=== PATIENT | female | born 1940 | race Caucasian/White ===

== ENCOUNTER 2017-02-15 19:01 | Inpatient (IN) | payer MEDICARE, OTHER ==
[~2017-02-15] VITALS: Ht 170.2 cm; Wt 53.7 kg
[~2017-02-15 19:01] MED LIST: CALCIUM CIT-VI1 EACH PO; CITALOPRAM HBR10 M1 ORAL; COLACE100 MG ORAL; COMBIVENT RESPIM4 GM IH; KLONOPIN1 MG ORAL; LYRICA225 MG ORAL; NORCO 5-325 TA1 EACH ORAL; NORCO 7.5-3251 EACH ORAL; PERIDEX 0.12% O15 ML ORO; POTASSIUM CHLOR8 ME2 PO; PROBIOTIC1 EAC3 PO; SENOKOT-S8.6 TAB/50 ORAL; SPIRIVA18 MCG INH; TRAMADOL HCL50 MG ORAL; ZOFRAN ODT8 MG ORAL
[2017-02-15] MEDS ORDERED: DOCUSATE SODIU100 MG ORAL (19:11)
[2017-02-15] MEDS ORDERED: KLOR-CON 88 MEQ ORAL (19:11)
[2017-02-15] MEDS ORDERED: EVISTA60 MG ORAL (19:11)
[2017-02-15] MEDS ORDERED: CENTRUM SILVER1 EAC4 PO (19:11)
[2017-02-15] MEDS ORDERED: RAPAFLO8 MG ORAL (19:11)
[2017-02-15] MEDS ORDERED: CARVEDILOL3.125 MG ORAL (19:11)
[2017-02-15] MEDS ORDERED: ASPIRIN EC81 MG ORAL (19:11)
[2017-02-15] MEDS ORDERED: LISINOPRIL20 MG ORAL (19:11)
[2017-02-15] MEDS ORDERED: PRAVASTATIN SOD20 M1 ORAL (19:11)
[2017-02-15] MEDS ORDERED: ZANTAC150 MG ORAL (19:11)
[2017-02-15] MEDS ORDERED: Ipratropium 0.02% Inh Soln 2.5ml UD HHN ONE (19:15)
[2017-02-15] MEDS ORDERED: Albuterol ud Inhalation HHN ONE (19:15)
[2017-02-15 19:38] VITALS: BP 153/95
[2017-02-15 19:41] LABS: BASOPHILS % (AUTO) 0.5 % (0.0-2.0); EOSINOPHILS % (AUTO) 0.3 % (0.0-3.0); HEMATOCRIT 37.2 % (37.0-47.0); LYMPHOCYTES % (AUTO) 28.6 % (20.0-45.0); MEAN CORPUSCULAR VOLUME 104 FL (80-99); MONOCYTES % (AUTO) 10.4 % (1.0-10.0); NEUTROPHILS % (AUTO) 60.3 % (45.0-75.0); PLATELET COUNT 159 K/UL (150-450); RED BLOOD COUNT 3.56 M/UL (4.20-5.40); RED CELL DISTRIBUTION WIDTH 12.3 % (11.6-14.8); WHITE BLOOD COUNT 7.8 K/UL (4.8-10.8)
--- NOTE | 2017-02-15 19:53 | Emergency Room Report ---
History of Present Illness General Chief Complaint: Dyspnea/Respdistress Source: Patient, EMS Present Illness HPI There was brought in by EMS for dyspnea and hypoxia. Apparently she been treated for pneumonia recently. The paramedics or rhonchi without any wheezes. It's unknown whether she is on antibiotics at this time. Oxygen was improved with 100% nonrebreather. She is on home oxygen. She is focused on colonic polyps and refuse to speak about other problems. She was discharged 07/2014 with these diagnoses: 1. Acute chronic obstructive pulmonary disease exacerbation with hypoxemia. 2. Chronic smoker. 3. Chronic abdominal pain. 4. Fibromyalgia 5. Hypertension. 6. Dyslipidemia. 7. Right breast cancer. 8. History of Clostridium difficile colitis. 9. Osteoporosis. 10. Anxiety disorder. 11. Bacteremia with Staphylococcus aureus. 12. Anemia of chronic disease. Allergies: Coded Allergies: TETRACYCLINE (Unverified Allergy, Unknown, 07/24/14) Patient History Limited by: medical condition Past Medical History: see triage record Social History: Reports: smoking - stopped 4 years ago Social History Narrative from home Last Menstrual Period: na Reviewed Nursing Documentation: PMH: Agreed, PSxH: Agreed Nursing Documentation-PMH Hx Cardiac Problems: Yes Hx Hypertension: Yes Hx COPD: Yes Hx Diabetes: Yes Hx Cancer: No Hx Gastrointestinal Problems: No Hx Neurological Problems: No Review of Systems All Other Systems: limited Physical Exam Vital Signs Date Time Temp Pulse Resp B/P (MAP) Pulse Ox O2 Delivery O2 Flow Rate FiO2 02/15/17 19:04 97.9 104 28 106/71 98 Non-Rebreather 15.0 02/15/17 19:27 100 Sp02 EP Interpretation: reviewed, abnormal - interpreted as low for FIO2 by me General Appearance: moderate distress, other - short stature, Chronically Ill Head: normocephalic Eyes: bilateral eye normal inspection, bilateral eye PERRL ENT: moist mucus membranes Neck: supple Respiratory: accessory muscle use, crackles, rales, rhonchi, wheezing, expiration Cardiovascular #1: regular rate, rhythm Cardiovascular #2: 2+ radial (R) Gastrointestinal: normal inspection, non tender, no mass, non-distended, abnormal bowel sounds - decreased, overweight Musculoskeletal: back normal, normal range of motion Neurologic: responsive, motor weakness - diffuse, not localized, other - somnolent Psychiatric: depressed affect Skin: mottled, other - cool Procedures Critical Care Time Critical Care Time Total Critical Care Time: 30 min bedside evaluation and treatment excludes procedures (EKG). Reason for critical care: respiratory distress Possible complications: hypotension, hypertension, PA, shock, arrhythmias, metabolic acidosis, end organ damage, respiratory failure. Interventions: repeat exams, BiPAP, breathing treatments, antibiotics Course: Patient with lethargy and resp distress. Aggressive treatment with transient improvement. Lethargy, needed BiPAP. Improvement. Repeat treatments. Several discussions with RT for optimal sats and care. Improved. Refused BiPAP - reassessment on venti mask. Improved. Consultations: nursing staff, EMS, RT Performed by: Dr. Best Tolerated well condition = serious Medical Decision Making Diagnostic Impression: Primary Impression: Hypoxia Additional Impressions: Right middle lobe pneumonia Qualified Codes: J18.1 - Lobar pneumonia, unspecified organism COPD exacerbation ER Course Patient with moderate respiratory distress with h/o pneumonia with questionable treatment. DDx: COPD, PNA, CHF, AMI, sepsis amongst others. Evaluation with EKG, CXR, labs with . The patient was reexamined. She had decreased mentation saturations of 83-87%. She was more lethargic at that time. BiPAP was begun in the emergency department and the patient received a breathing treatment. Consideration for intubation. On BiPAP the patient started to wake up and oxygen saturations were improved. He says ago oxygen saturation between 90 and 94%. Admit [place] Dr. Cedillo. Not tolerate BiPAP. Switched to 45% venti mask with improved mentation and sats. Patient taking off oxygen mask. O2 sats drop with this. Non-behavioral restraints ordered. Patient more alert. Laboratory Tests Test 02/15/17 19:20 02/15/17 20:11 White Blood Count 7.8 K/UL (4.8-10.8) Red Blood Count 3.56 M/UL (4.20-5.40) L Hemoglobin 11.0 G/DL (12.0-16.0) L Hematocrit 37.2 % (37.0-47.0) Mean Corpuscular Volume 104 FL (80-99) H Mean Corpuscular Hemoglobin 31.0 PG (27.0-31.0) Mean Corpuscular Hemoglobin Concent 29.7 G/DL (32.0-36.0) L Red Cell Distribution Width 12.3 % (11.6-14.8) Platelet Count 159 K/UL (150-450) Mean Platelet Volume 7.3 FL (6.5-10.1) Neutrophils (%) (Auto) 60.3 % (45.0-75.0) Lymphocytes (%) (Auto) 28.6 % (20.0-45.0) Monocytes (%) (Auto) 10.4 % (1.0-10.0) H Eosinophils (%) (Auto) 0.3 % (0.0-3.0) Basophils (%) (Auto) 0.5 % (0.0-2.0) Prothrombin Time 9.4 SEC (9.30-11.50) Prothrombin Time INR 0.9 (0.9-1.1) PTT 33 SEC (23-33) Sodium Level 137 MMOL/L (136-145) Potassium Level 4.3 MMOL/L (3.5-5.1) Chloride Level 103 MMOL/L (98-107) Carbon Dioxide Level 24 MMOL/L (21-32) Anion Gap 14 (5-15) Blood Urea Nitrogen 43 mg/dL (7-18) H Creatinine 1.1 MG/DL (0.55-1.00) H Estimate Glomerular Filtration Rate mL/min (>60) Glucose Level 115 MG/DL (74-106) H Lactic Acid Level 0.70 mmol/L (0.66-2.22) Calcium Level 9.6 MG/DL (8.5-10.1) Total Bilirubin 0.6 MG/DL (0.2-1.0) Aspartate Amino Transferase (AST) 45 U/L (15-37) H Alanine Aminotransferase (ALT) 36 U/L (12-78) Alkaline Phosphatase 73 U/L (46-116) Total Creatine Kinase 633 U/L (26-308) H Troponin I 0.000 ng/mL (0.000-0.056) Pro-B-Type Natriuretic Peptide 1742 (0-125) H Total Protein 7.4 G/DL (6.4-8.2) Albumin 2.9 G/DL (3.4-5.0) L Globulin 4.5 g/dL Albumin/Globulin Ratio 0.6 (1.0-2.7) L Urine Color Yellow Urine Appearance Slightly cloudy Urine pH 5 (4.5-8.0) Urine Specific [place] 1.015 (1.005-1.035) Urine Protein 2+ (NEGATIVE) H Urine Glucose (UA) Negative (NEGATIVE) Urine Ketones 1+ (NEGATIVE) H Urine Occult Blood 4+ (NEGATIVE) H Urine Nitrite Negative (NEGATIVE) Urine Bilirubin Negative (NEGATIVE) Urine Urobilinogen Normal MG/DL (0.0-1.0) Urine Leukocyte Esterase Negative (NEGATIVE) Urine RBC 0-2 /HPF (0 - 2) Urine WBC 0-2 /HPF (0 - 2) Urine Squamous Epithelial Cells Occasional /LPF Urine Amorphous Sediment Many /LPF (NONE) H Urine Bacteria Few /HPF (NONE) EKG Diagnostic Results Rate: tachycardiac Rhythm: NSR ST Segments: no acute changes Rhythm Strip Diag. Results EP Interpretation: yes Rhythm: no PVC's, no ectopy, other - ST Chest X-Ray Diagnostic Results Chest X-Ray Diagnostic Results : Chest X-Ray Ordered: Yes # of Views/Limited/Complete: 1 View Indication: Shortness of Breath EP Interpretation: Yes Interpretation: no pneumothorax, other - Bilateral effusions and right middle lobe infiltrate Last Vital Signs Date Time Temp Pulse Resp B/P (MAP) Pulse Ox O2 Delivery O2 Flow Rate FiO2 02/15/17 23:40 97.9 114 18 126/60 97 Venturi Mask 10.0 45 Status: improved Disposition: ADMITTED INPATIENT Condition: Serious Referrals: NOT CHOSEN IPA/,REFERRING (PCP) Isiah Best M.D. Feb 15, 2017 19:53
[2017-02-15 20:01] LABS: INR 0.9 (0.9-1.1)
[2017-02-15] MEDS ORDERED: Cefepime 2gm ONE (20:14)
[2017-02-15 20:38] LABS: ALANINE AMINOTRANSFERASE 36 U/L (12-78); ALBUMIN 2.9 G/DL (3.4-5.0); ALBUMIN/GLOBULIN RATIO 0.6 (1.0-2.7); ALKALINE PHOSPHATASE 73 U/L (46-116); ANION GAP 14 (5-15); ASPARTATE AMINO TRANSFERASE 45 U/L (15-37); BILIRUBIN,TOTAL 0.6 MG/DL (0.2-1.0); BLOOD UREA NITROGEN 43 mg/dL (7-18); CALCIUM 9.6 MG/DL (8.5-10.1); CARBON DIOXIDE 24 MMOL/L (21-32); CHLORIDE 103 MMOL/L (98-107); CREATINE KINASE 633 U/L (26-308); CREATININE 1.1 MG/DL (0.55-1.00); POTASSIUM 4.3 MMOL/L (3.5-5.1); SODIUM 137 MMOL/L (136-145)
[2017-02-15 20:50] LABS: APPEARANCE,URINE SLIGHTLY CLOUDY; BILIRUBIN, URINE NEGATIVE (NEGATIVE); GLUCOSE, URINE (UA) NEGATIVE (NEGATIVE); KETONES,URINE 1+ (NEGATIVE); LEUKOCYTE ESTERASE ,URINE NEGATIVE (NEGATIVE); NITRITE,URINE NEGATIVE (NEGATIVE); PH,URINE 5 (4.5-8.0); PROTEIN,URINE 2+ (NEGATIVE); UROBILINOGEN,URINE NORMAL MG/DL (0.0-1.0)
[2017-02-15 20:52] LABS: COLOR,URINE YELLOW
[2017-02-15] MEDS ORDERED: Albuterol ud Inhalation HHN STA (20:59)
[2017-02-15 21:09] VITALS: BP 133/53
[2017-02-15] MEDS ORDERED: Cefepime HCl 2 GM in NS 110 ML IV SCH (22:00)
[2017-02-15] MEDS ORDERED: Miralax 17gm pkt ORAL PRN (22:45)
[2017-02-15] MEDS ORDERED: Albuterol/Ipratropium 3ml neb HHN PRN (22:45)
[2017-02-15] MEDS ORDERED: Vancomycin 1 GM in D5W 275 ML IV SCH (23:00)
[2017-02-15 23:13] VITALS: BP 126/60
[2017-02-16] MEDS: Vancomycin 1250mg/D5W 250ml IVPB SCH ×2 (01:15→23:10)
[2017-02-16 04:00] VITALS: BP 144/69
[2017-02-16 05:31] LABS: BASOPHILS % (AUTO) 0.5 % (0.0-2.0); EOSINOPHILS % (AUTO) 0.8 % (0.0-3.0); HEMATOCRIT 33.1 % (37.0-47.0); HEMOGLOBIN 10.4 G/DL (12.0-16.0); LYMPHOCYTES % (AUTO) 21.4 % (20.0-45.0); MEAN CORPUSCULAR VOLUME 103 FL (80-99); MONOCYTES % (AUTO) 10.8 % (1.0-10.0); NEUTROPHILS % (AUTO) 66.6 % (45.0-75.0); PLATELET COUNT 178 K/UL (150-450); RED BLOOD COUNT 3.22 M/UL (4.20-5.40); RED CELL DISTRIBUTION WIDTH 12.4 % (11.6-14.8); WHITE BLOOD COUNT 7.6 K/UL (4.8-10.8)
[2017-02-16 06:01] LABS: ALBUMIN 2.5 G/DL (3.4-5.0); ANION GAP 9 (5-15); BLOOD UREA NITROGEN 33 mg/dL (7-18); CALCIUM 8.9 MG/DL (8.5-10.1); CARBON DIOXIDE 25 MMOL/L (21-32); CHLORIDE 101 MMOL/L (98-107); CREATININE 0.9 MG/DL (0.55-1.00); POTASSIUM 3.7 MMOL/L (3.5-5.1); SODIUM 135 MMOL/L (136-145)
[2017-02-16 08:00] VITALS: BP 153/73
--- NOTE | 2017-02-16 10:23 | Diagnostic Imaging Report ---
Indication: Dyspnea Comparison: 07/31/14 A single view chest radiograph was obtained. Findings: Pneumonia suspected at the right lung base with moderate-sized density. Evaluation is limited as there are overlying soft tissue densities. There may be an infiltrate at the left lung base. Suggest repeating the examination. The bones are osteopenic. Heart is enlarged. There are surgical clips in the right axilla. Interstitial edema may also be present. Impression: Limited evaluation due to significant degree of soft tissue attenuation. Suspect pneumonia at the right lung base. Recommend repeating the study. Possible interstitial edema.
--- NOTE | 2017-02-16 10:28 | Consultation ---
History of Present Illness General Date patient seen: Feb 16, 2017 Time patient seen: 10:22 Chief Complaint: Dyspnea/Respdistress Reason for Consultation: PNA Present Illness HPI 76 y/o F with hx of COPD on home O2, DM2, colon polyps, fibromyalgia, HTN, HLD, R breast cancer, Cdiff colitis, Tobacco abuse (stopped 4 years ago), chronic abd pain, Anxiety, S. aureus bacteremia 07/2014, AOCD is brought to ED by EMS on 02/15 with dyspnea, hypoxia. Upon admission placed on NRB mask, now down to 4l NC Of note, she recently received tx for PNA Afebrile, no leukocytosis. CXR wiht possible RLL pNA. Started on IV Vanco and Cefepime. Denies n/v/d, f/c, dysuria. Has chronic abd pain. Allergies: Coded Allergies: TETRACYCLINE (Unverified Allergy, Unknown, 07/24/14) Medication History Scheduled Aspirin Ec* (Aspirin Ec*), 81 MG ORAL DAILY, (Reported) Calcium Citrate/Vitamin D3 (Calcium Cit-Vit D 315-200 Tab), 2 EACH PO DAILY, ( Reported) Citalopram Hydrobromide* (Citalopram Hbr*), 10 MG ORAL DAILY, (Reported) Clonazepam* (Klonopin*), 1 MG ORAL DAILY, (Reported) Docusate Sodium* (Colace*), 200 MG ORAL DAILY, (Reported) Docusate Sodium* (Docusate Sodium*), Unknown Dose ORAL THREE TIMES A DAY, ( Reported) Ipratropium/Albuterol Sulfate (Combivent Respimat Inhal Rosie), 18 MCG IH Q4HR, (Reported) Lactobacillus Combination No.4 (Probiotic), 1 EACH PO DAILY, (Reported) Lisinopril (Lisinopril*), 20 MG ORAL BID, (Reported) Potassium Chloride (Potassium Chloride), 8 MEQ PO DAILY, (Reported) Potassium Chloride (Klor-Con 8), 8 MEQ ORAL DAILY, (Reported) Pravastatin Sod* (Pravastatin Sod*), 20 MG ORAL BEDTIME, (Reported) Pregabalin (Lyrica), 225 MG ORAL TWICE A DAY, (Reported) Raloxifene Hcl* (Evista*), 60 MG ORAL DAILY, (Reported) Sennosides (Senna-Gen), 2 TAB ORAL DAILY, (Reported) Silodosin (Rapaflo), 8 MG ORAL DAILY, (Reported) Tiotropium [place]* (Spiriva*), 1 PUFF INH DAILY, (Reported) Scheduled PRN Hydrocodone Bit/Acetaminophen 5-325* ([place] 5-325*), 1 TAB ORAL Q6H PRN for For Pain, (Reported) Hydrocodone Bit/Acetaminophen 7.5-325* ([place] 7.5-325*), 1 TAB ORAL Q4H PRN for For Pain, (Reported) Ondansetron Odt* (Zofran Odt*), 8 MG ORAL Q8HR PRN for Nausea & Vomiting, ( Reported) Tramadol Hcl* (Ultram*), 50 MG ORAL Q6H PRN for For Pain, (Reported) Miscellaneous Medications Carvedilol* (Carvedilol*), 3.125 MG ORAL, (Reported) Chlorhexidine Gluconate (Chlorhexidine Gluconate), 15 ML NEISHA, (Reported) Mu-Vits-Min Th/Lycopene/Lutein (Centrum Silver Tablet), 1 EACH PO, (Reported) Ranitidine Hcl* (Zantac*), 300 MG ORAL, (Reported) Patient History Healthcare decision maker Resuscitation status Full Code Advanced Directive on File Patient History Narrative PMHx: as above FHx: non contributory SHx: prior smoking; - stopped 4 years ago Lives at home Review of Systems All Other Systems: negative except mentioned in HPI Physical Exam Physical Exam Narrative General Appearance: resting comfortably in bed, on nasal canula HEENT: PERRL, no oral lesions, atraumatic head Neck: supple Respiratory: scattered wheezing Cardiovascular: regular rate, rhythmm, no murmurs Gastrointestinal: normal inspection, non tender, no mass, non-distended Musculoskeletal: back normal, normal range of motion Neurologic: AAO x3, no focal deficits Skin: no lesions or rashes Last 24 Hour Vital Signs Date Time Temp Pulse Resp B/P (MAP) Pulse Ox O2 Delivery O2 Flow Rate FiO2 02/16/17 04:00 98.3 105 18 144/69 97 Venturi Mask 10.0 45 02/16/17 03:42 100 02/15/17 23:40 97.9 114 18 126/60 97 Venturi Mask 10.0 45 02/15/17 23:13 97.9 114 18 126/60 97 Venturi Mask 10.0 45 02/15/17 21:45 90 18 02/15/17 21:45 90 18 98 Venturi Mask 10.0 45 02/15/17 21:26 80 20 99 Facial 100 02/15/17 21:09 97.9 108 23 133/53 92 Nasal Cannula 5.0 100 02/15/17 19:43 106 18 100 Non-Rebreather 100 02/15/17 19:38 97.9 105 20 153/95 100 Non-Rebreather 15.0 100 02/15/17 19:38 105 20 Non-Rebreather 15.0 100 02/15/17 19:27 81 20 97 Non-Rebreather 15.0 100 02/15/17 19:04 97.9 104 28 106/71 98 Non-Rebreather 15.0 Laboratory Tests Test 02/15/17 19:20 02/15/17 20:11 02/16/17 04:10 White Blood Count 7.8 K/UL (4.8-10.8) 7.6 K/UL (4.8-10.8) Red Blood Count 3.56 M/UL (4.20-5.40) L 3.22 M/UL (4.20-5.40) L Hemoglobin 11.0 G/DL (12.0-16.0) L 10.4 G/DL (12.0-16.0) L Hematocrit 37.2 % (37.0-47.0) 33.1 % (37.0-47.0) L Mean Corpuscular Volume 104 FL (80-99) H 103 FL (80-99) H Mean Corpuscular Hemoglobin 31.0 PG (27.0-31.0) 32.2 PG (27.0-31.0) H Mean Corpuscular Hemoglobin Concent 29.7 G/DL (32.0-36.0) L 31.3 G/DL (32.0-36.0) L Red Cell Distribution Width 12.3 % (11.6-14.8) 12.4 % (11.6-14.8) Platelet Count 159 K/UL (150-450) 178 K/UL (150-450) Mean Platelet Volume 7.3 FL (6.5-10.1) 8.9 FL (6.5-10.1) Neutrophils (%) (Auto) 60.3 % (45.0-75.0) 66.6 % (45.0-75.0) Lymphocytes (%) (Auto) 28.6 % (20.0-45.0) 21.4 % (20.0-45.0) Monocytes (%) (Auto) 10.4 % (1.0-10.0) H 10.8 % (1.0-10.0) H Eosinophils (%) (Auto) 0.3 % (0.0-3.0) 0.8 % (0.0-3.0) Basophils (%) (Auto) 0.5 % (0.0-2.0) 0.5 % (0.0-2.0) Prothrombin Time 9.4 SEC (9.30-11.50) Prothromb Time International Ratio 0.9 (0.9-1.1) Activated Partial Thromboplast Time 33 SEC (23-33) Sodium Level 137 MMOL/L (136-145) 135 MMOL/L (136-145) L Potassium Level 4.3 MMOL/L (3.5-5.1) 3.7 MMOL/L (3.5-5.1) Chloride Level 103 MMOL/L (98-107) 101 MMOL/L (98-107) Carbon Dioxide Level 24 MMOL/L (21-32) 25 MMOL/L (21-32) Anion Gap 14 (5-15) 9 (5-15) Blood Urea Nitrogen 43 mg/dL (7-18) H 33 mg/dL (7-18) H Creatinine 1.1 MG/DL (0.55-1.00) H 0.9 MG/DL (0.55-1.00) Estimat Glomerular Filtration Rate mL/min (>60) mL/min (>60) Glucose Level 115 MG/DL (74-106) H 105 MG/DL (74-106) Lactic Acid Level 0.70 mmol/L (0.66-2.22) Calcium Level 9.6 MG/DL (8.5-10.1) 8.9 MG/DL (8.5-10.1) Total Bilirubin 0.6 MG/DL (0.2-1.0) Aspartate Amino Transf (AST/SGOT) 45 U/L (15-37) H Alanine Aminotransferase (ALT/SGPT) 36 U/L (12-78) Alkaline Phosphatase 73 U/L (46-116) Total Creatine Kinase 633 U/L (26-308) H Troponin I 0.000 ng/mL (0.000-0.056) Pro-B-Type Natriuretic Peptide 1742 (0-125) H Total Protein 7.4 G/DL (6.4-8.2) Albumin 2.9 G/DL (3.4-5.0) L 2.5 G/DL (3.4-5.0) L Globulin 4.5 g/dL Albumin/Globulin Ratio 0.6 (1.0-2.7) L Urine Color Yellow Urine Appearance Slightly cloudy Urine pH 5 (4.5-8.0) Urine Specific [place] 1.015 (1.005-1.035) Urine Protein 2+ (NEGATIVE) H Urine Glucose (UA) Negative (NEGATIVE) Urine Ketones 1+ (NEGATIVE) H Urine Occult Blood 4+ (NEGATIVE) H Urine Nitrite Negative (NEGATIVE) Urine Bilirubin Negative (NEGATIVE) Urine Urobilinogen Normal MG/DL (0.0-1.0) Urine Leukocyte Esterase Negative (NEGATIVE) Urine RBC 0-2 /HPF (0 - 2) Urine WBC 0-2 /HPF (0 - 2) Urine Squamous Epithelial Cells Occasional /LPF Urine Amorphous Sediment Many /LPF (NONE) H Urine Bacteria Few /HPF (NONE) Phosphorus Level 3.0 MG/DL (2.5-4.9) Height (Feet): 5 Height (Inches): 7.00 Weight (Pounds): 123 Medications Current Medications Medications (Trade) Dose Ordered Sig/Wilner Route PRN Reason Start Time Stop Time Status Last Admin Dose Admin Acetaminophen (Tylenol) 650 mg Q4H PRN ORAL FEVER 02/15/17 22:45 03/17/17 22:44 Albuterol/ Ipratropium (DuoNeb 0.5-3(2.5)mg/3ml) 3 ml EVERY 4 HOURS PRN HHN Shortness of Breath 02/15/17 22:45 02/20/17 22:44 Cefepime HCl 2 gm/ Dextrose 110 ml @ 220 mls/hr EVERY 12 HOURS IV 02/16/17 09:00 02/23/17 08:59 Dextrose (Dextrose 50%) STAT PRN IV Hypoglycemia 02/15/17 22:45 03/17/17 22:44 Heparin Sodium (Porcine) (Heparin 5000 units/ml) 5,000 units EVERY 12 HOURS SUBQ 02/16/17 09:00 03/18/17 08:59 Lorazepam (Ativan 2mg/ml 1ml) 2 mg EVERY 2 HOURS PRN IV For Anxiety 02/15/17 22:45 02/22/17 22:44 Morphine Sulfate (Morphine Sulfate) 4 mg EVERY 4 HOURS PRN IVP Severe Pain (Pain Scale 7-10) 02/15/17 22:45 02/22/17 22:44 Ondansetron HCl (Zofran) 4 mg Q6H PRN IVP Nausea & Vomiting 02/15/17 22:45 03/17/17 22:44 Polyethylene Glycol (Miralax) 17 gm DAILYPRN PRN ORAL Constipation 02/15/17 22:45 03/17/17 22:44 Sodium Chloride 1,000 ml @ 50 mls/hr Q20H IV 02/15/17 22:50 03/17/17 22:49 02/16/17 01:15 Vancomycin HCl (Vanco rx to dose) 1 ea DAILY PRN MISC PER RX PROTOCOL 02/16/17 07:45 03/18/17 07:44 Vancomycin HCl/ Dextrose 250 ml @ 166.667 mls/hr Q24H IVPB 02/15/17 23:30 02/20/17 23:29 02/16/17 01:15 Assessment/Plan Assessment/Plan Abx: IV Vanco/Cefepime 02/15- Assesment: Acute hypoxic resp failure, improving- combination of COPD exacerbation and PNA PNA -CXR: Limited evaluation due to significant degree of soft tissue attenuation. Suspect pneumonia at the right lung base. Afebrile, no leukocytosis COPD on home O2 Hx of Cdiff DM2 Chronic abd pain hx of MRSA bacteremia 07/2015 fibromyalgia, HTN, HLD, R breast cancer,Tobacco abuse (stopped 4 years ago), Anxiety, AOCD Plan: -Continue IV Vanco and Cefepime pending sp cx -Will start prophylatic PO Vancomycin given prior hx of Cdiff and current abx treatment -CXR 2 v sue am -F/u cultures -Monitor CBC/BMP, temperatures -Aspiration precautions Thank you for this consultation. Will continue to follow along with you. Discussed with RN and Dr Hernandez.. Alyse Traylor M.D. Feb 16, 2017 10:28
--- NOTE | 2017-02-16 10:55 | History & Physical ---
History and Physical History & Physicial Cover for Int Med-Dr Cedillo no. [id number]. ZEB FUENTES Feb 16, 2017 10:55
--- NOTE | 2017-02-16 10:55 | History & Physical ---
History and Physical History & Physicial Cover for Int Med-Dr Cedillo no. [id number]. ZEB FUENTES Feb 16, 2017 10:55
--- NOTE | 2017-02-16 10:55 | History & Physical ---
History and Physical History & Physicial Cover for Int Med-Dr Cedillo no. [id number]. ZEB FUENTES Feb 16, 2017 10:55
[2017-02-16] MEDS: Cefepime HCl 2 GM in D5W 110 ML IV SCH ×2 (11:07→20:35)
[2017-02-16] MEDS: Albuterol/Ipratropium 3ml neb HHN SCH ×3 (11:08→19:00)
[2017-02-16] MEDS: Heparin 5000 units/ml inj SUBQ SCH ×2 (11:10→20:37)
[2017-02-16] MEDS: Solu-MEDROL 125mg Inj IVP SCH ×2 (11:14→17:32)
--- NOTE | 2017-02-16 11:23 | History and Physical ---
History of Present Illness General Date patient seen: Feb 16, 2017 Reason for Hospitalization: Dyspnea/Respdistress Present Illness HPI 76 year old female with hx of COPD, fibromyalgia, brought in by EMS for dyspnea and hypoxia and cough. She was on respiratory distress at home and was put on nonrebreather. Oxygen was improved with 100% nonrebreather. She is on home oxygen. She is admitted to [facility] for acute respiratory failure. Allergies: Coded Allergies: TETRACYCLINE (Unverified Allergy, Unknown, 07/24/14) Medication History Scheduled Aspirin Ec* (Aspirin Ec*), 81 MG ORAL DAILY, (Reported) Calcium Citrate/Vitamin D3 (Calcium Cit-Vit D 315-200 Tab), 2 EACH PO DAILY, ( Reported) Citalopram Hydrobromide* (Citalopram Hbr*), 10 MG ORAL DAILY, (Reported) Clonazepam* (Klonopin*), 1 MG ORAL DAILY, (Reported) Docusate Sodium* (Colace*), 200 MG ORAL DAILY, (Reported) Docusate Sodium* (Docusate Sodium*), Unknown Dose ORAL THREE TIMES A DAY, ( Reported) Ipratropium/Albuterol Sulfate (Combivent Respimat Inhal [place]), 18 MCG IH Q4HR, (Reported) Lactobacillus Combination No.4 (Probiotic), 1 EACH PO DAILY, (Reported) Lisinopril (Lisinopril*), 20 MG ORAL BID, (Reported) Potassium Chloride (Potassium Chloride), 8 MEQ PO DAILY, (Reported) Potassium Chloride (Klor-Con 8), 8 MEQ ORAL DAILY, (Reported) Pravastatin Sod* (Pravastatin Sod*), 20 MG ORAL BEDTIME, (Reported) Pregabalin (Lyrica), 225 MG ORAL TWICE A DAY, (Reported) Raloxifene Hcl* (Evista*), 60 MG ORAL DAILY, (Reported) Sennosides (Senna-Gen), 2 TAB ORAL DAILY, (Reported) Silodosin (Rapaflo), 8 MG ORAL DAILY, (Reported) Tiotropium [place]* (Spiriva*), 1 PUFF INH DAILY, (Reported) Scheduled PRN Hydrocodone Bit/Acetaminophen 5-325* ([place] 5-325*), 1 TAB ORAL Q6H PRN for For Pain, (Reported) Hydrocodone Bit/Acetaminophen 7.5-325* ([place] 7.5-325*), 1 TAB ORAL Q4H PRN for For Pain, (Reported) Ondansetron Odt* (Zofran Odt*), 8 MG ORAL Q8HR PRN for Nausea & Vomiting, ( Reported) Tramadol Hcl* (Ultram*), 50 MG ORAL Q6H PRN for For Pain, (Reported) Miscellaneous Medications Carvedilol* (Carvedilol*), 3.125 MG ORAL, (Reported) Chlorhexidine Gluconate (Chlorhexidine Gluconate), 15 ML NEISHA, (Reported) Mu-Vits-Min Th/Lycopene/Lutein (Centrum Silver Tablet), 1 EACH PO, (Reported) Ranitidine Hcl* (Zantac*), 300 MG ORAL, (Reported) Patient History Healthcare decision maker Resuscitation status Full Code Advanced Directive on File Past Medical/Surgical History Past Medical/Surgical History: (1) COPD (chronic obstructive pulmonary disease) (2) Fibromyalgia Review of Systems All Other Systems: negative except mentioned in HPI Physical Exam General Appearance: WD/WN Lines, tubes and drains: peripheral HEENT: normocephalic, atraumatic Neck: non-tender, normal alignment Respiratory/Chest: chest wall non-tender, lungs clear Breasts: no masses Cardiovascular/Chest: normal peripheral pulses, normal rate Abdomen: normal bowel sounds, non tender Genitourinary/Rectal: normal genital exam, normal rectal exam Extremities: normal range of motion Skin Exam: normal pigmentation 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: vp 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 grossly normal Last 24 Hour Vital Signs Date Time Temp Pulse Resp B/P (MAP) Pulse Ox O2 Delivery O2 Flow Rate FiO2 02/16/17 08:00 97.8 107 18 153/73 95 Nasal Cannula 4.0 02/16/17 04:00 98.3 105 18 144/69 97 Venturi Mask 10.0 45 02/16/17 03:42 100 02/15/17 23:40 97.9 114 18 126/60 97 Venturi Mask 10.0 45 02/15/17 23:13 97.9 114 18 126/60 97 Venturi Mask 10.0 45 02/15/17 21:45 90 18 02/15/17 21:45 90 18 98 Venturi Mask 10.0 45 02/15/17 21:26 80 20 99 Facial 100 02/15/17 21:09 97.9 108 23 133/53 92 Nasal Cannula 5.0 100 02/15/17 19:43 106 18 100 Non-Rebreather 100 02/15/17 19:38 97.9 105 20 153/95 100 Non-Rebreather 15.0 100 02/15/17 19:38 105 20 Non-Rebreather 15.0 100 02/15/17 19:27 81 20 97 Non-Rebreather 15.0 100 02/15/17 19:04 97.9 104 28 106/71 98 Non-Rebreather 15.0 Laboratory Tests Test 02/15/17 19:20 02/15/17 20:11 02/16/17 04:10 White Blood Count 7.8 K/UL (4.8-10.8) 7.6 K/UL (4.8-10.8) Red Blood Count 3.56 M/UL (4.20-5.40) L 3.22 M/UL (4.20-5.40) L Hemoglobin 11.0 G/DL (12.0-16.0) L 10.4 G/DL (12.0-16.0) L Hematocrit 37.2 % (37.0-47.0) 33.1 % (37.0-47.0) L Mean Corpuscular Volume 104 FL (80-99) H 103 FL (80-99) H Mean Corpuscular Hemoglobin 31.0 PG (27.0-31.0) 32.2 PG (27.0-31.0) H Mean Corpuscular Hemoglobin Concent 29.7 G/DL (32.0-36.0) L 31.3 G/DL (32.0-36.0) L Red Cell Distribution Width 12.3 % (11.6-14.8) 12.4 % (11.6-14.8) Platelet Count 159 K/UL (150-450) 178 K/UL (150-450) Mean Platelet Volume 7.3 FL (6.5-10.1) 8.9 FL (6.5-10.1) Neutrophils (%) (Auto) 60.3 % (45.0-75.0) 66.6 % (45.0-75.0) Lymphocytes (%) (Auto) 28.6 % (20.0-45.0) 21.4 % (20.0-45.0) Monocytes (%) (Auto) 10.4 % (1.0-10.0) H 10.8 % (1.0-10.0) H Eosinophils (%) (Auto) 0.3 % (0.0-3.0) 0.8 % (0.0-3.0) Basophils (%) (Auto) 0.5 % (0.0-2.0) 0.5 % (0.0-2.0) Prothrombin Time 9.4 SEC (9.30-11.50) Prothromb Time International Ratio 0.9 (0.9-1.1) Activated Partial Thromboplast Time 33 SEC (23-33) Sodium Level 137 MMOL/L (136-145) 135 MMOL/L (136-145) L Potassium Level 4.3 MMOL/L (3.5-5.1) 3.7 MMOL/L (3.5-5.1) Chloride Level 103 MMOL/L (98-107) 101 MMOL/L (98-107) Carbon Dioxide Level 24 MMOL/L (21-32) 25 MMOL/L (21-32) Anion Gap 14 (5-15) 9 (5-15) Blood Urea Nitrogen 43 mg/dL (7-18) H 33 mg/dL (7-18) H Creatinine 1.1 MG/DL (0.55-1.00) H 0.9 MG/DL (0.55-1.00) Estimat Glomerular Filtration Rate mL/min (>60) mL/min (>60) Glucose Level 115 MG/DL (74-106) H 105 MG/DL (74-106) Lactic Acid Level 0.70 mmol/L (0.66-2.22) Calcium Level 9.6 MG/DL (8.5-10.1) 8.9 MG/DL (8.5-10.1) Total Bilirubin 0.6 MG/DL (0.2-1.0) Aspartate Amino Transf (AST/SGOT) 45 U/L (15-37) H Alanine Aminotransferase (ALT/SGPT) 36 U/L (12-78) Alkaline Phosphatase 73 U/L (46-116) Total Creatine Kinase 633 U/L (26-308) H Troponin I 0.000 ng/mL (0.000-0.056) Pro-B-Type Natriuretic Peptide 1742 (0-125) H Total Protein 7.4 G/DL (6.4-8.2) Albumin 2.9 G/DL (3.4-5.0) L 2.5 G/DL (3.4-5.0) L Globulin 4.5 g/dL Albumin/Globulin Ratio 0.6 (1.0-2.7) L Urine Color Yellow Urine Appearance Slightly cloudy Urine pH 5 (4.5-8.0) Urine Specific [place] 1.015 (1.005-1.035) Urine Protein 2+ (NEGATIVE) H Urine Glucose (UA) Negative (NEGATIVE) Urine Ketones 1+ (NEGATIVE) H Urine Occult Blood 4+ (NEGATIVE) H Urine Nitrite Negative (NEGATIVE) Urine Bilirubin Negative (NEGATIVE) Urine Urobilinogen Normal MG/DL (0.0-1.0) Urine Leukocyte Esterase Negative (NEGATIVE) Urine RBC 0-2 /HPF (0 - 2) Urine WBC 0-2 /HPF (0 - 2) Urine Squamous Epithelial Cells Occasional /LPF Urine Amorphous Sediment Many /LPF (NONE) H Urine Bacteria Few /HPF (NONE) Phosphorus Level 3.0 MG/DL (2.5-4.9) Height (Feet): 5 Height (Inches): 7.00 Weight (Pounds): 123 Medications Current Medications Medications (Trade) Dose Ordered Sig/Wilner Route PRN Reason Start Time Stop Time Status Last Admin Dose Admin Acetaminophen (Tylenol) 650 mg Q4H PRN ORAL FEVER 02/15/17 22:45 03/17/17 22:44 Albuterol/ Ipratropium (DuoNeb 0.5-3(2.5)mg/3ml) 3 ml Q4HRT HHN 02/16/17 11:00 02/21/17 10:59 02/16/17 11:08 Cefepime HCl 2 gm/ Dextrose 110 ml @ 220 mls/hr EVERY 12 HOURS IV 02/16/17 09:00 02/23/17 08:59 02/16/17 11:07 Dextrose (Dextrose 50%) STAT PRN IV Hypoglycemia 02/15/17 22:45 03/17/17 22:44 Heparin Sodium (Porcine) (Heparin 5000 units/ml) 5,000 units EVERY 12 HOURS SUBQ 02/16/17 09:00 03/18/17 08:59 02/16/17 11:10 Lorazepam (Ativan 2mg/ml 1ml) 2 mg EVERY 2 HOURS PRN IV For Anxiety 02/15/17 22:45 02/22/17 22:44 Methylprednisolone Sodium Succinate (Solu-MEDROL) 60 mg EVERY 6 HOURS IVP 02/16/17 12:00 03/18/17 11:59 02/16/17 11:14 Morphine Sulfate (Morphine Sulfate) 4 mg EVERY 4 HOURS PRN IVP Severe Pain (Pain Scale 7-10) 02/15/17 22:45 02/22/17 22:44 Ondansetron HCl (Zofran) 4 mg Q6H PRN IVP Nausea & Vomiting 02/15/17 22:45 03/17/17 22:44 Polyethylene Glycol (Miralax) 17 gm DAILYPRN PRN ORAL Constipation 02/15/17 22:45 03/17/17 22:44 Promethazine HCl/ Codeine (Phenergan with Codeine) 5 ml Q4H PRN ORAL For Cough 02/16/17 10:45 03/18/17 10:44 Sodium Chloride 1,000 ml @ 50 mls/hr Q20H IV 02/15/17 22:50 03/17/17 22:49 02/16/17 01:15 Vancomycin HCl (Vanco rx to dose) 1 ea DAILY PRN MISC PER RX PROTOCOL 02/16/17 07:45 03/18/17 07:44 Vancomycin HCl/ Dextrose 250 ml @ 166.667 mls/hr Q24H IVPB 02/15/17 23:30 02/20/17 23:29 02/16/17 01:15 Assessment/Plan Problem List: (1) Acute and chronic respiratory failure ([id number]) ICD Codes: J96.20 - Acute and chr resp failure, unsp w hypoxia or hypercapnia SNOMED: 16215727 (2) COPD exacerbation ICD Codes: J44.1 - Chronic obstructive pulmonary disease with (acute) exacerbation SNOMED: 309328042, 356057537 (3) Pneumonia ICD Codes: J18.9 - Pneumonia, unspecified organism SNOMED: 235430129 (4) Fibromyalgia ICD Codes: M79.7 - Fibromyalgia SNOMED: 02965042 (5) History of breast cancer ICD Codes: Z85.3 - Personal history of malignant neoplasm of breast SNOMED: 010850230 (6) Limited mobility ICD Codes: Z74.09 - Other reduced mobility SNOMED: 3114681 Assessment/Plan respiratory treatment check sputum IV abx IV steroids trial of theophylline chest PT dvt prophylaxis TWIN FONTANEZ Feb 16, 2017 11:23
--- NOTE | 2017-02-16 11:23 | History and Physical ---
History of Present Illness General Date patient seen: Feb 16, 2017 Reason for Hospitalization: Dyspnea/Respdistress Present Illness HPI 76 year old female with hx of COPD, fibromyalgia, brought in by EMS for dyspnea and hypoxia and cough. She was on respiratory distress at home and was put on nonrebreather. Oxygen was improved with 100% nonrebreather. She is on home oxygen. She is admitted to [facility] for acute respiratory failure. Allergies: Coded Allergies: TETRACYCLINE (Unverified Allergy, Unknown, 07/24/14) Medication History Scheduled Aspirin Ec* (Aspirin Ec*), 81 MG ORAL DAILY, (Reported) Calcium Citrate/Vitamin D3 (Calcium Cit-Vit D 315-200 Tab), 2 EACH PO DAILY, ( Reported) Citalopram Hydrobromide* (Citalopram Hbr*), 10 MG ORAL DAILY, (Reported) Clonazepam* (Klonopin*), 1 MG ORAL DAILY, (Reported) Docusate Sodium* (Colace*), 200 MG ORAL DAILY, (Reported) Docusate Sodium* (Docusate Sodium*), Unknown Dose ORAL THREE TIMES A DAY, ( Reported) Ipratropium/Albuterol Sulfate (Combivent Respimat Inhal [place]), 18 MCG IH Q4HR, (Reported) Lactobacillus Combination No.4 (Probiotic), 1 EACH PO DAILY, (Reported) Lisinopril (Lisinopril*), 20 MG ORAL BID, (Reported) Potassium Chloride (Potassium Chloride), 8 MEQ PO DAILY, (Reported) Potassium Chloride (Klor-Con 8), 8 MEQ ORAL DAILY, (Reported) Pravastatin Sod* (Pravastatin Sod*), 20 MG ORAL BEDTIME, (Reported) Pregabalin (Lyrica), 225 MG ORAL TWICE A DAY, (Reported) Raloxifene Hcl* (Evista*), 60 MG ORAL DAILY, (Reported) Sennosides (Senna-Gen), 2 TAB ORAL DAILY, (Reported) Silodosin (Rapaflo), 8 MG ORAL DAILY, (Reported) Tiotropium [place]* (Spiriva*), 1 PUFF INH DAILY, (Reported) Scheduled PRN Hydrocodone Bit/Acetaminophen 5-325* ([place] 5-325*), 1 TAB ORAL Q6H PRN for For Pain, (Reported) Hydrocodone Bit/Acetaminophen 7.5-325* ([place] 7.5-325*), 1 TAB ORAL Q4H PRN for For Pain, (Reported) Ondansetron Odt* (Zofran Odt*), 8 MG ORAL Q8HR PRN for Nausea & Vomiting, ( Reported) Tramadol Hcl* (Ultram*), 50 MG ORAL Q6H PRN for For Pain, (Reported) Miscellaneous Medications Carvedilol* (Carvedilol*), 3.125 MG ORAL, (Reported) Chlorhexidine Gluconate (Chlorhexidine Gluconate), 15 ML NEISHA, (Reported) Mu-Vits-Min Th/Lycopene/Lutein (Centrum Silver Tablet), 1 EACH PO, (Reported) Ranitidine Hcl* (Zantac*), 300 MG ORAL, (Reported) Patient History Healthcare decision maker Resuscitation status Full Code Advanced Directive on File Past Medical/Surgical History Past Medical/Surgical History: (1) COPD (chronic obstructive pulmonary disease) (2) Fibromyalgia Review of Systems All Other Systems: negative except mentioned in HPI Physical Exam General Appearance: WD/WN Lines, tubes and drains: peripheral HEENT: normocephalic, atraumatic Neck: non-tender, normal alignment Respiratory/Chest: chest wall non-tender, lungs clear Breasts: no masses Cardiovascular/Chest: normal peripheral pulses, normal rate Abdomen: normal bowel sounds, non tender Genitourinary/Rectal: normal genital exam, normal rectal exam Extremities: normal range of motion Skin Exam: normal pigmentation 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 Last 24 Hour Vital Signs Date Time Temp Pulse Resp B/P (MAP) Pulse Ox O2 Delivery O2 Flow Rate FiO2 02/16/17 08:00 97.8 107 18 153/73 95 Nasal Cannula 4.0 02/16/17 04:00 98.3 105 18 144/69 97 Venturi Mask 10.0 45 02/16/17 03:42 100 02/15/17 23:40 97.9 114 18 126/60 97 Venturi Mask 10.0 45 02/15/17 23:13 97.9 114 18 126/60 97 Venturi Mask 10.0 45 02/15/17 21:45 90 18 02/15/17 21:45 90 18 98 Venturi Mask 10.0 45 02/15/17 21:26 80 20 99 Facial 100 02/15/17 21:09 97.9 108 23 133/53 92 Nasal Cannula 5.0 100 02/15/17 19:43 106 18 100 Non-Rebreather 100 02/15/17 19:38 97.9 105 20 153/95 100 Non-Rebreather 15.0 100 02/15/17 19:38 105 20 Non-Rebreather 15.0 100 02/15/17 19:27 81 20 97 Non-Rebreather 15.0 100 02/15/17 19:04 97.9 104 28 106/71 98 Non-Rebreather 15.0 Laboratory Tests Test 02/15/17 19:20 02/15/17 20:11 02/16/17 04:10 White Blood Count 7.8 K/UL (4.8-10.8) 7.6 K/UL (4.8-10.8) Red Blood Count 3.56 M/UL (4.20-5.40) L 3.22 M/UL (4.20-5.40) L Hemoglobin 11.0 G/DL (12.0-16.0) L 10.4 G/DL (12.0-16.0) L Hematocrit 37.2 % (37.0-47.0) 33.1 % (37.0-47.0) L Mean Corpuscular Volume 104 FL (80-99) H 103 FL (80-99) H Mean Corpuscular Hemoglobin 31.0 PG (27.0-31.0) 32.2 PG (27.0-31.0) H Mean Corpuscular Hemoglobin Concent 29.7 G/DL (32.0-36.0) L 31.3 G/DL (32.0-36.0) L Red Cell Distribution Width 12.3 % (11.6-14.8) 12.4 % (11.6-14.8) Platelet Count 159 K/UL (150-450) 178 K/UL (150-450) Mean Platelet Volume 7.3 FL (6.5-10.1) 8.9 FL (6.5-10.1) Neutrophils (%) (Auto) 60.3 % (45.0-75.0) 66.6 % (45.0-75.0) Lymphocytes (%) (Auto) 28.6 % (20.0-45.0) 21.4 % (20.0-45.0) Monocytes (%) (Auto) 10.4 % (1.0-10.0) H 10.8 % (1.0-10.0) H Eosinophils (%) (Auto) 0.3 % (0.0-3.0) 0.8 % (0.0-3.0) Basophils (%) (Auto) 0.5 % (0.0-2.0) 0.5 % (0.0-2.0) Prothrombin Time 9.4 SEC (9.30-11.50) Prothromb Time International Ratio 0.9 (0.9-1.1) Activated Partial Thromboplast Time 33 SEC (23-33) Sodium Level 137 MMOL/L (136-145) 135 MMOL/L (136-145) L Potassium Level 4.3 MMOL/L (3.5-5.1) 3.7 MMOL/L (3.5-5.1) Chloride Level 103 MMOL/L (98-107) 101 MMOL/L (98-107) Carbon Dioxide Level 24 MMOL/L (21-32) 25 MMOL/L (21-32) Anion Gap 14 (5-15) 9 (5-15) Blood Urea Nitrogen 43 mg/dL (7-18) H 33 mg/dL (7-18) H Creatinine 1.1 MG/DL (0.55-1.00) H 0.9 MG/DL (0.55-1.00) Estimat Glomerular Filtration Rate mL/min (>60) mL/min (>60) Glucose Level 115 MG/DL (74-106) H 105 MG/DL (74-106) Lactic Acid Level 0.70 mmol/L (0.66-2.22) Calcium Level 9.6 MG/DL (8.5-10.1) 8.9 MG/DL (8.5-10.1) Total Bilirubin 0.6 MG/DL (0.2-1.0) Aspartate Amino Transf (AST/SGOT) 45 U/L (15-37) H Alanine Aminotransferase (ALT/SGPT) 36 U/L (12-78) Alkaline Phosphatase 73 U/L (46-116) Total Creatine Kinase 633 U/L (26-308) H Troponin I 0.000 ng/mL (0.000-0.056) Pro-B-Type Natriuretic Peptide 1742 (0-125) H Total Protein 7.4 G/DL (6.4-8.2) Albumin 2.9 G/DL (3.4-5.0) L 2.5 G/DL (3.4-5.0) L Globulin 4.5 g/dL Albumin/Globulin Ratio 0.6 (1.0-2.7) L Urine Color Yellow Urine Appearance Slightly cloudy Urine pH 5 (4.5-8.0) Urine Specific [place] 1.015 (1.005-1.035) Urine Protein 2+ (NEGATIVE) H Urine Glucose (UA) Negative (NEGATIVE) Urine Ketones 1+ (NEGATIVE) H Urine Occult Blood 4+ (NEGATIVE) H Urine Nitrite Negative (NEGATIVE) Urine Bilirubin Negative (NEGATIVE) Urine Urobilinogen Normal MG/DL (0.0-1.0) Urine Leukocyte Esterase Negative (NEGATIVE) Urine RBC 0-2 /HPF (0 - 2) Urine WBC 0-2 /HPF (0 - 2) Urine Squamous Epithelial Cells Occasional /LPF Urine Amorphous Sediment Many /LPF (NONE) H Urine Bacteria Few /HPF (NONE) Phosphorus Level 3.0 MG/DL (2.5-4.9) Height (Feet): 5 Height (Inches): 7.00 Weight (Pounds): 123 Medications Current Medications Medications (Trade) Dose Ordered Sig/Wilner Route PRN Reason Start Time Stop Time Status Last Admin Dose Admin Acetaminophen (Tylenol) 650 mg Q4H PRN ORAL FEVER 02/15/17 22:45 03/17/17 22:44 Albuterol/ Ipratropium (DuoNeb 0.5-3(2.5)mg/3ml) 3 ml Q4HRT HHN 02/16/17 11:00 02/21/17 10:59 02/16/17 11:08 Cefepime HCl 2 gm/ Dextrose 110 ml @ 220 mls/hr EVERY 12 HOURS IV 02/16/17 09:00 02/23/17 08:59 02/16/17 11:07 Dextrose (Dextrose 50%) STAT PRN IV Hypoglycemia 02/15/17 22:45 03/17/17 22:44 Heparin Sodium (Porcine) (Heparin 5000 units/ml) 5,000 units EVERY 12 HOURS SUBQ 02/16/17 09:00 03/18/17 08:59 02/16/17 11:10 Lorazepam (Ativan 2mg/ml 1ml) 2 mg EVERY 2 HOURS PRN IV For Anxiety 02/15/17 22:45 02/22/17 22:44 Methylprednisolone Sodium Succinate (Solu-MEDROL) 60 mg EVERY 6 HOURS IVP 02/16/17 12:00 03/18/17 11:59 02/16/17 11:14 Morphine Sulfate (Morphine Sulfate) 4 mg EVERY 4 HOURS PRN IVP Severe Pain (Pain Scale 7-10) 02/15/17 22:45 02/22/17 22:44 Ondansetron HCl (Zofran) 4 mg Q6H PRN IVP Nausea & Vomiting 02/15/17 22:45 03/17/17 22:44 Polyethylene Glycol (Miralax) 17 gm DAILYPRN PRN ORAL Constipation 02/15/17 22:45 03/17/17 22:44 Promethazine HCl/ Codeine (Phenergan with Codeine) 5 ml Q4H PRN ORAL For Cough 02/16/17 10:45 03/18/17 10:44 Sodium Chloride 1,000 ml @ 50 mls/hr Q20H IV 02/15/17 22:50 03/17/17 22:49 02/16/17 01:15 Vancomycin HCl (Vanco rx to dose) 1 ea DAILY PRN MISC PER RX PROTOCOL 02/16/17 07:45 03/18/17 07:44 Vancomycin HCl/ Dextrose 250 ml @ 166.667 mls/hr Q24H IVPB 02/15/17 23:30 02/20/17 23:29 02/16/17 01:15 Assessment/Plan Problem List: (1) Acute and chronic respiratory failure ([id number]) ICD Codes: J96.20 - Acute and chr resp failure, unsp w hypoxia or hypercapnia SNOMED: 74009880 (2) COPD exacerbation ICD Codes: J44.1 - Chronic obstructive pulmonary disease with (acute) exacerbation SNOMED: 538790950, 406195481 (3) Pneumonia ICD Codes: J18.9 - Pneumonia, unspecified organism SNOMED: 136917787 (4) Fibromyalgia ICD Codes: M79.7 - Fibromyalgia SNOMED: 60656341 (5) History of breast cancer ICD Codes: Z85.3 - Personal history of malignant neoplasm of breast SNOMED: 020309997 (6) Limited mobility ICD Codes: Z74.09 - Other reduced mobility SNOMED: 9325677 Assessment/Plan respiratory treatment check sputum IV abx IV steroids trial of theophylline chest PT dvt prophylaxis TWIN FONTANEZ Feb 16, 2017 11:23
--- NOTE | 2017-02-16 11:23 | History and Physical ---
History of Present Illness General Date patient seen: Feb 16, 2017 Reason for Hospitalization: Dyspnea/Respdistress Present Illness HPI 76 year old female with hx of COPD, fibromyalgia, brought in by EMS for dyspnea and hypoxia and cough. She was on respiratory distress at home and was put on nonrebreather. Oxygen was improved with 100% nonrebreather. She is on home oxygen. She is admitted to [facility] for acute respiratory failure. Allergies: Coded Allergies: TETRACYCLINE (Unverified Allergy, Unknown, 07/24/14) Medication History Scheduled Aspirin Ec* (Aspirin Ec*), 81 MG ORAL DAILY, (Reported) Calcium Citrate/Vitamin D3 (Calcium Cit-Vit D 315-200 Tab), 2 EACH PO DAILY, ( Reported) Citalopram Hydrobromide* (Citalopram Hbr*), 10 MG ORAL DAILY, (Reported) Clonazepam* (Klonopin*), 1 MG ORAL DAILY, (Reported) Docusate Sodium* (Colace*), 200 MG ORAL DAILY, (Reported) Docusate Sodium* (Docusate Sodium*), Unknown Dose ORAL THREE TIMES A DAY, ( Reported) Ipratropium/Albuterol Sulfate (Combivent Respimat Inhal [place]), 18 MCG IH Q4HR, (Reported) Lactobacillus Combination No.4 (Probiotic), 1 EACH PO DAILY, (Reported) Lisinopril (Lisinopril*), 20 MG ORAL BID, (Reported) Potassium Chloride (Potassium Chloride), 8 MEQ PO DAILY, (Reported) Potassium Chloride (Klor-Con 8), 8 MEQ ORAL DAILY, (Reported) Pravastatin Sod* (Pravastatin Sod*), 20 MG ORAL BEDTIME, (Reported) Pregabalin (Lyrica), 225 MG ORAL TWICE A DAY, (Reported) Raloxifene Hcl* (Evista*), 60 MG ORAL DAILY, (Reported) Sennosides (Senna-Gen), 2 TAB ORAL DAILY, (Reported) Silodosin (Rapaflo), 8 MG ORAL DAILY, (Reported) Tiotropium Hugo* (Spiriva*), 1 PUFF INH DAILY, (Reported) Scheduled PRN Hydrocodone Bit/Acetaminophen 5-325* ([place] 5-325*), 1 TAB ORAL Q6H PRN for For Pain, (Reported) Hydrocodone Bit/Acetaminophen 7.5-325* ([place] 7.5-325*), 1 TAB ORAL Q4H PRN for For Pain, (Reported) Ondansetron Odt* (Zofran Odt*), 8 MG ORAL Q8HR PRN for Nausea & Vomiting, ( Reported) Tramadol Hcl* (Ultram*), 50 MG ORAL Q6H PRN for For Pain, (Reported) Miscellaneous Medications Carvedilol* (Carvedilol*), 3.125 MG ORAL, (Reported) Chlorhexidine Gluconate (Chlorhexidine Gluconate), 15 ML NEISHA, (Reported) Mu-Vits-Min Th/Lycopene/Lutein (Centrum Silver Tablet), 1 EACH PO, (Reported) Ranitidine Hcl* (Zantac*), 300 MG ORAL, (Reported) Patient History Healthcare decision maker Resuscitation status Full Code Advanced Directive on File Past Medical/Surgical History Past Medical/Surgical History: (1) COPD (chronic obstructive pulmonary disease) (2) Fibromyalgia Review of Systems All Other Systems: negative except mentioned in HPI Physical Exam General Appearance: WD/WN Lines, tubes and drains: peripheral HEENT: normocephalic, atraumatic Neck: non-tender, normal alignment Respiratory/Chest: chest wall non-tender, lungs clear Breasts: no masses Cardiovascular/Chest: normal peripheral pulses, normal rate Abdomen: normal bowel sounds, non tender Genitourinary/Rectal: normal genital exam, normal rectal exam Extremities: normal range of motion Skin Exam: normal pigmentation Neurologic: patient care provider II-XII grossly normal Last 24 Hour Vital Signs Date Time Temp Pulse Resp B/P (MAP) Pulse Ox O2 Delivery O2 Flow Rate FiO2 02/16/17 08:00 97.8 107 18 153/73 95 Nasal Cannula 4.0 02/16/17 04:00 98.3 105 18 144/69 97 Venturi Mask 10.0 45 02/16/17 03:42 100 02/15/17 23:40 97.9 114 18 126/60 97 Venturi Mask 10.0 45 02/15/17 23:13 97.9 114 18 126/60 97 Venturi Mask 10.0 45 02/15/17 21:45 90 18 02/15/17 21:45 90 18 98 Venturi Mask 10.0 45 02/15/17 21:26 80 20 99 Facial 100 02/15/17 21:09 97.9 108 23 133/53 92 Nasal Cannula 5.0 100 02/15/17 19:43 106 18 100 Non-Rebreather 100 02/15/17 19:38 97.9 105 20 153/95 100 Non-Rebreather 15.0 100 02/15/17 19:38 105 20 Non-Rebreather 15.0 100 02/15/17 19:27 81 20 97 Non-Rebreather 15.0 100 02/15/17 19:04 97.9 104 28 106/71 98 Non-Rebreather 15.0 Laboratory Tests Test 02/15/17 19:20 02/15/17 20:11 02/16/17 04:10 White Blood Count 7.8 K/UL (4.8-10.8) 7.6 K/UL (4.8-10.8) Red Blood Count 3.56 M/UL (4.20-5.40) L 3.22 M/UL (4.20-5.40) L Hemoglobin 11.0 G/DL (12.0-16.0) L 10.4 G/DL (12.0-16.0) L Hematocrit 37.2 % (37.0-47.0) 33.1 % (37.0-47.0) L Mean Corpuscular Volume 104 FL (80-99) H 103 FL (80-99) H Mean Corpuscular Hemoglobin 31.0 PG (27.0-31.0) 32.2 PG (27.0-31.0) H Mean Corpuscular Hemoglobin Concent 29.7 G/DL (32.0-36.0) L 31.3 G/DL (32.0-36.0) L Red Cell Distribution Width 12.3 % (11.6-14.8) 12.4 % (11.6-14.8) Platelet Count 159 K/UL (150-450) 178 K/UL (150-450) Mean Platelet Volume 7.3 FL (6.5-10.1) 8.9 FL (6.5-10.1) Neutrophils (%) (Auto) 60.3 % (45.0-75.0) 66.6 % (45.0-75.0) Lymphocytes (%) (Auto) 28.6 % (20.0-45.0) 21.4 % (20.0-45.0) Monocytes (%) (Auto) 10.4 % (1.0-10.0) H 10.8 % (1.0-10.0) H Eosinophils (%) (Auto) 0.3 % (0.0-3.0) 0.8 % (0.0-3.0) Basophils (%) (Auto) 0.5 % (0.0-2.0) 0.5 % (0.0-2.0) Prothrombin Time 9.4 SEC (9.30-11.50) Prothromb Time International Ratio 0.9 (0.9-1.1) Activated Partial Thromboplast Time 33 SEC (23-33) Sodium Level 137 MMOL/L (136-145) 135 MMOL/L (136-145) L Potassium Level 4.3 MMOL/L (3.5-5.1) 3.7 MMOL/L (3.5-5.1) Chloride Level 103 MMOL/L (98-107) 101 MMOL/L (98-107) Carbon Dioxide Level 24 MMOL/L (21-32) 25 MMOL/L (21-32) Anion Gap 14 (5-15) 9 (5-15) Blood Urea Nitrogen 43 mg/dL (7-18) H 33 mg/dL (7-18) H Creatinine 1.1 MG/DL (0.55-1.00) H 0.9 MG/DL (0.55-1.00) Estimat Glomerular Filtration Rate mL/min (>60) mL/min (>60) Glucose Level 115 MG/DL (74-106) H 105 MG/DL (74-106) Lactic Acid Level 0.70 mmol/L (0.66-2.22) Calcium Level 9.6 MG/DL (8.5-10.1) 8.9 MG/DL (8.5-10.1) Total Bilirubin 0.6 MG/DL (0.2-1.0) Aspartate Amino Transf (AST/SGOT) 45 U/L (15-37) H Alanine Aminotransferase (ALT/SGPT) 36 U/L (12-78) Alkaline Phosphatase 73 U/L (46-116) Total Creatine Kinase 633 U/L (26-308) H Troponin I 0.000 ng/mL (0.000-0.056) Pro-B-Type Natriuretic Peptide 1742 (0-125) H Total Protein 7.4 G/DL (6.4-8.2) Albumin 2.9 G/DL (3.4-5.0) L 2.5 G/DL (3.4-5.0) L Globulin 4.5 g/dL Albumin/Globulin Ratio 0.6 (1.0-2.7) L Urine Color Yellow Urine Appearance Slightly cloudy Urine pH 5 (4.5-8.0) Urine Specific [place] 1.015 (1.005-1.035) Urine Protein 2+ (NEGATIVE) H Urine Glucose (UA) Negative (NEGATIVE) Urine Ketones 1+ (NEGATIVE) H Urine Occult Blood 4+ (NEGATIVE) H Urine Nitrite Negative (NEGATIVE) Urine Bilirubin Negative (NEGATIVE) Urine Urobilinogen Normal MG/DL (0.0-1.0) Urine Leukocyte Esterase Negative (NEGATIVE) Urine RBC 0-2 /HPF (0 - 2) Urine WBC 0-2 /HPF (0 - 2) Urine Squamous Epithelial Cells Occasional /LPF Urine Amorphous Sediment Many /LPF (NONE) H Urine Bacteria Few /HPF (NONE) Phosphorus Level 3.0 MG/DL (2.5-4.9) Height (Feet): 5 Height (Inches): 7.00 Weight (Pounds): 123 Medications Current Medications Medications (Trade) Dose Ordered Sig/Wilner Route PRN Reason Start Time Stop Time Status Last Admin Dose Admin Acetaminophen (Tylenol) 650 mg Q4H PRN ORAL FEVER 02/15/17 22:45 03/17/17 22:44 Albuterol/ Ipratropium (DuoNeb 0.5-3(2.5)mg/3ml) 3 ml Q4HRT HHN 02/16/17 11:00 02/21/17 10:59 02/16/17 11:08 Cefepime HCl 2 gm/ Dextrose 110 ml @ 220 mls/hr EVERY 12 HOURS IV 02/16/17 09:00 02/23/17 08:59 02/16/17 11:07 Dextrose (Dextrose 50%) STAT PRN IV Hypoglycemia 02/15/17 22:45 03/17/17 22:44 Heparin Sodium (Porcine) (Heparin 5000 units/ml) 5,000 units EVERY 12 HOURS SUBQ 02/16/17 09:00 03/18/17 08:59 02/16/17 11:10 Lorazepam (Ativan 2mg/ml 1ml) 2 mg EVERY 2 HOURS PRN IV For Anxiety 02/15/17 22:45 02/22/17 22:44 Methylprednisolone Sodium Succinate (Solu-MEDROL) 60 mg EVERY 6 HOURS IVP 02/16/17 12:00 03/18/17 11:59 02/16/17 11:14 Morphine Sulfate (Morphine Sulfate) 4 mg EVERY 4 HOURS PRN IVP Severe Pain (Pain Scale 7-10) 02/15/17 22:45 02/22/17 22:44 Ondansetron HCl (Zofran) 4 mg Q6H PRN IVP Nausea & Vomiting 02/15/17 22:45 03/17/17 22:44 Polyethylene Glycol (Miralax) 17 gm DAILYPRN PRN ORAL Constipation 02/15/17 22:45 03/17/17 22:44 Promethazine HCl/ Codeine (Phenergan with Codeine) 5 ml Q4H PRN ORAL For Cough 02/16/17 10:45 03/18/17 10:44 Sodium Chloride 1,000 ml @ 50 mls/hr Q20H IV 02/15/17 22:50 03/17/17 22:49 02/16/17 01:15 Vancomycin HCl (Vanco rx to dose) 1 ea DAILY PRN MISC PER RX PROTOCOL 02/16/17 07:45 03/18/17 07:44 Vancomycin HCl/ Dextrose 250 ml @ 166.667 mls/hr Q24H IVPB 02/15/17 23:30 02/20/17 23:29 02/16/17 01:15 Assessment/Plan Problem List: (1) Acute and chronic respiratory failure ([id number]) ICD Codes: J96.20 - Acute and chr resp failure, unsp w hypoxia or hypercapnia SNOMED: 39692149 (2) COPD exacerbation ICD Codes: J44.1 - Chronic obstructive pulmonary disease with (acute) exacerbation SNOMED: 045409556, 133498044 (3) Pneumonia ICD Codes: J18.9 - Pneumonia, unspecified organism SNOMED: 572783724 (4) Fibromyalgia ICD Codes: M79.7 - Fibromyalgia SNOMED: 44829286 (5) History of breast cancer ICD Codes: Z85.3 - Personal history of malignant neoplasm of breast SNOMED: 948765212 (6) Limited mobility ICD Codes: Z74.09 - Other reduced mobility SNOMED: 6396240 Assessment/Plan respiratory treatment check sputum IV abx IV steroids trial of theophylline chest PT dvt prophylaxis TWIN FONTANEZ Feb 16, 2017 11:23
[2017-02-16 12:00] VITALS: BP 162/84
--- NOTE | 2017-02-16 14:03 | Wound Care Consultation ---
Wound Assessment Wound Assessment #1: Wound Number: 1 Wound Present on Admission: Yes New Wound: No Status Change of Wound: No Wound Location Body Site: perineal area Wound Type: chemical burn Madonna Test: Does not Madonna Percent of Wound [place]/Red: 100 Wound Drainage Amount: None Wound Drainage Odor: None/Absent Tissue Surrounding Wound: Erythemic Wound General Appearance: Reddened Wound Assessment #2: Wound Number: 2 Wound Present on Admission: Yes New Wound: No Status Change of Wound: No Wound Location Body Site Modif: mid Wound Location Body Site: other - sacrococcygeal area Wound Type: pressure ulcer Madonna Test: Does not Madonna Pressure Ulcer Stage: I Wound Length: 5.5 Wound Width: 4.0 Percent of Wound [place]/Red: 100 Wound Drainage Amount: None Wound Drainage Odor: None/Absent Tissue Surrounding Wound: Erythemic Wound General Appearance: Reddened Wound Assessment #3: Wound Number: 3 Wound Comment #1 Sacrococcygeal stage I pressure ulcer that extended to left and right buttocks #2 Perineal area chemical burn #3 Wart on supra pubic area Recommendation -Sacrococcygeal stage I pressure ulcer that extended to left and right buttocks and Perineal area chemical burn Cleanse with saline, pat dry, apply Triad cream, leave area open to air BID and PRN soiled/dislodged -Keep clean and dry -Turn and reposition -Offload both heels -Heel protector on both heels -Low air loss SPR mattress -Optimize nutrition -Assess and f/u accordingly for any changes KALLI JONES RN Feb 16, 2017 14:03
--- NOTE | 2017-02-16 14:03 | Wound Care Consultation ---
Wound Assessment Wound Assessment #1: Wound Number: 1 Wound Present on Admission: Yes New Wound: No Status Change of Wound: No Wound Location Body Site: perineal area Wound Type: chemical burn Madonna Test: Does not Madonna Percent of Wound [place]/Red: 100 Wound Drainage Amount: None Wound Drainage Odor: None/Absent Tissue Surrounding Wound: Erythemic Wound General Appearance: Reddened Wound Assessment #2: Wound Number: 2 Wound Present on Admission: Yes New Wound: No Status Change of Wound: No Wound Location Body Site Modif: mid Wound Location Body Site: other - sacrococcygeal area Wound Type: pressure ulcer Madonna Test: Does not Madonna Pressure Ulcer Stage: I Wound Length: 5.5 Wound Width: 4.0 Percent of Wound [place]/Red: 100 Wound Drainage Amount: None Wound Drainage Odor: None/Absent Tissue Surrounding Wound: Erythemic Wound General Appearance: Reddened Wound Assessment #3: Wound Number: 3 Wound Comment #1 Sacrococcygeal stage I pressure ulcer that extended to left and right buttocks #2 Perineal area chemical burn #3 Wart on supra pubic area Recommendation -Sacrococcygeal stage I pressure ulcer that extended to left and right buttocks and Perineal area chemical burn Cleanse with saline, pat dry, apply Triad cream, leave area open to air BID and PRN soiled/dislodged -Keep clean and dry -Turn and reposition -Offload both heels -Heel protector on both heels -Low air loss SPR mattress -Optimize nutrition -Assess and f/u accordingly for any changes KALLI JONES RN Feb 16, 2017 14:03
--- NOTE | 2017-02-16 14:03 | Wound Care Consultation ---
Wound Assessment Wound Assessment #1: Wound Number: 1 Wound Present on Admission: Yes New Wound: No Status Change of Wound: No Wound Location Body Site: perineal area Wound Type: chemical burn Madonna Test: Does not Madonna Percent of Wound [place]/Red: 100 Wound Drainage Amount: None Wound Drainage Odor: None/Absent Tissue Surrounding Wound: Erythemic Wound General Appearance: Reddened Wound Assessment #2: Wound Number: 2 Wound Present on Admission: Yes New Wound: No Status Change of Wound: No Wound Location Body Site Modif: mid Wound Location Body Site: other - sacrococcygeal area Wound Type: pressure ulcer Madonna Test: Does not Madonna Pressure Ulcer Stage: I Wound Length: 5.5 Wound Width: 4.0 Percent of Wound [place]/Red: 100 Wound Drainage Amount: None Wound Drainage Odor: None/Absent Tissue Surrounding Wound: Erythemic Wound General Appearance: Reddened Wound Assessment #3: Wound Number: 3 Wound Comment #1 Sacrococcygeal stage I pressure ulcer that extended to left and right buttocks #2 Perineal area chemical burn #3 Wart on supra pubic area Recommendation -Sacrococcygeal stage I pressure ulcer that extended to left and right buttocks and Perineal area chemical burn Cleanse with saline, pat dry, apply Triad cream, leave area open to air BID and PRN soiled/dislodged -Keep clean and dry -Turn and reposition -Offload both heels -Heel protector on both heels -Low air loss SPR mattress -Optimize nutrition -Assess and f/u accordingly for any changes KALLI JONES RN Feb 16, 2017 14:03
[2017-02-16] MEDS: Lyrica 75mg cap ORAL SCH ×4 (14:10→17:49)
[2017-02-16] MEDS ORDERED: NS Irrig 1000ml ONE (14:12)
[2017-02-16] MEDS ORDERED: NS 275ml ONE (14:12)
[2017-02-16] MEDS ORDERED: Tubing IV Secondary IV ONE (14:12)
[2017-02-16] MEDS ORDERED: 1/2 NS 1000ml IV ONE (14:12)
[2017-02-16] MEDS: Vancomycin oral 125mg/2.5ml ORAL SCH ×2 (14:14→17:33)
[2017-02-16] MEDS: Norco 5mg/325mg tab ORAL PRN (14:21)
[2017-02-16 16:00] VITALS: BP 156/82
[2017-02-16] MEDS: Lisinopril 20mg tab ORAL SCH (17:32)
--- NOTE | 2017-02-16 18:47 | Cardiology Progress Note ---
Assessment/Plan Assessment/Plan [id number] Objective Last 24 Hour Vital Signs Date Time Temp Pulse Resp B/P (MAP) Pulse Ox O2 Delivery O2 Flow Rate FiO2 02/16/17 17:32 153/73 02/16/17 15:20 97.8 02/16/17 15:10 88 16 98 Nasal Cannula 5.0 40 02/16/17 15:09 97.8 02/16/17 15:09 97.8 02/16/17 14:07 85 153/73 02/16/17 12:00 97.7 105 20 162/84 94 Nasal Cannula 5.0 02/16/17 11:10 85 16 98 Nasal Cannula 5.0 40 02/16/17 11:00 85 16 98 Nasal Cannula 5.0 40 02/16/17 08:00 97.8 107 18 153/73 95 Nasal Cannula 4.0 02/16/17 04:00 98.3 105 18 144/69 97 Venturi Mask 10.0 45 02/16/17 03:42 100 02/15/17 23:40 97.9 114 18 126/60 97 Venturi Mask 10.0 45 02/15/17 23:13 97.9 114 18 126/60 97 Venturi Mask 10.0 45 02/15/17 21:45 90 18 02/15/17 21:45 90 18 98 Venturi Mask 10.0 45 02/15/17 21:26 80 20 99 Facial 100 02/15/17 21:09 97.9 108 23 133/53 92 Nasal Cannula 5.0 100 02/15/17 19:43 106 18 100 Non-Rebreather 100 02/15/17 19:38 97.9 105 20 153/95 100 Non-Rebreather 15.0 100 02/15/17 19:38 105 20 Non-Rebreather 15.0 100 02/15/17 19:27 81 20 97 Non-Rebreather 15.0 100 02/15/17 19:04 97.9 104 28 106/71 98 Non-Rebreather 15.0 Intake and Output 02/16/17 02/17/17 19:00 07:00 # Bowel Movements 3 Laboratory Tests Test 02/15/17 19:20 02/15/17 20:11 02/16/17 04:10 White Blood Count 7.8 K/UL (4.8-10.8) 7.6 K/UL (4.8-10.8) Red Blood Count 3.56 M/UL (4.20-5.40) L 3.22 M/UL (4.20-5.40) L Hemoglobin 11.0 G/DL (12.0-16.0) L 10.4 G/DL (12.0-16.0) L Hematocrit 37.2 % (37.0-47.0) 33.1 % (37.0-47.0) L Mean Corpuscular Volume 104 FL (80-99) H 103 FL (80-99) H Mean Corpuscular Hemoglobin 31.0 PG (27.0-31.0) 32.2 PG (27.0-31.0) H Mean Corpuscular Hemoglobin Concent 29.7 G/DL (32.0-36.0) L 31.3 G/DL (32.0-36.0) L Red Cell Distribution Width 12.3 % (11.6-14.8) 12.4 % (11.6-14.8) Platelet Count 159 K/UL (150-450) 178 K/UL (150-450) Mean Platelet Volume 7.3 FL (6.5-10.1) 8.9 FL (6.5-10.1) Neutrophils (%) (Auto) 60.3 % (45.0-75.0) 66.6 % (45.0-75.0) Lymphocytes (%) (Auto) 28.6 % (20.0-45.0) 21.4 % (20.0-45.0) Monocytes (%) (Auto) 10.4 % (1.0-10.0) H 10.8 % (1.0-10.0) H Eosinophils (%) (Auto) 0.3 % (0.0-3.0) 0.8 % (0.0-3.0) Basophils (%) (Auto) 0.5 % (0.0-2.0) 0.5 % (0.0-2.0) Prothrombin Time 9.4 SEC (9.30-11.50) Prothromb Time International Ratio 0.9 (0.9-1.1) Activated Partial Thromboplast Time 33 SEC (23-33) Sodium Level 137 MMOL/L (136-145) 135 MMOL/L (136-145) L Potassium Level 4.3 MMOL/L (3.5-5.1) 3.7 MMOL/L (3.5-5.1) Chloride Level 103 MMOL/L (98-107) 101 MMOL/L (98-107) Carbon Dioxide Level 24 MMOL/L (21-32) 25 MMOL/L (21-32) Anion Gap 14 (5-15) 9 (5-15) Blood Urea Nitrogen 43 mg/dL (7-18) H 33 mg/dL (7-18) H Creatinine 1.1 MG/DL (0.55-1.00) H 0.9 MG/DL (0.55-1.00) Estimat Glomerular Filtration Rate mL/min (>60) mL/min (>60) Glucose Level 115 MG/DL (74-106) H 105 MG/DL (74-106) Lactic Acid Level 0.70 mmol/L (0.66-2.22) Calcium Level 9.6 MG/DL (8.5-10.1) 8.9 MG/DL (8.5-10.1) Total Bilirubin 0.6 MG/DL (0.2-1.0) Aspartate Amino Transf (AST/SGOT) 45 U/L (15-37) H Alanine Aminotransferase (ALT/SGPT) 36 U/L (12-78) Alkaline Phosphatase 73 U/L (46-116) Total Creatine Kinase 633 U/L (26-308) H Troponin I 0.000 ng/mL (0.000-0.056) Pro-B-Type Natriuretic Peptide 1742 (0-125) H Total Protein 7.4 G/DL (6.4-8.2) Albumin 2.9 G/DL (3.4-5.0) L 2.5 G/DL (3.4-5.0) L Globulin 4.5 g/dL Albumin/Globulin Ratio 0.6 (1.0-2.7) L Urine Color Yellow Urine Appearance Slightly cloudy Urine pH 5 (4.5-8.0) Urine Specific [place] 1.015 (1.005-1.035) Urine Protein 2+ (NEGATIVE) H Urine Glucose (UA) Negative (NEGATIVE) Urine Ketones 1+ (NEGATIVE) H Urine Occult Blood 4+ (NEGATIVE) H Urine Nitrite Negative (NEGATIVE) Urine Bilirubin Negative (NEGATIVE) Urine Urobilinogen Normal MG/DL (0.0-1.0) Urine Leukocyte Esterase Negative (NEGATIVE) Urine RBC 0-2 /HPF (0 - 2) Urine WBC 0-2 /HPF (0 - 2) Urine Squamous Epithelial Cells Occasional /LPF Urine Amorphous Sediment Many /LPF (NONE) H Urine Bacteria Few /HPF (NONE) Phosphorus Level 3.0 MG/DL (2.5-4.9) JEFFERSON ROMEO Feb 16, 2017 18:47
--- NOTE | 2017-02-16 19:45 | History and Physical Report ---
DATE OF ADMISSION: 02/15/2017 CHIEF COMPLAINT: The patient is a 76-year-old white female who presents with a chief complaint of shortness of breath. HISTORY OF PRESENT ILLNESS: The patient states she has had shortness of breath for a year. The patient states it was increasing over the last week. The patient has a history of chronic obstructive pulmonary disease. The patient complains of cough, productive of greenish sputum. The patient denies fevers or chills. The patient presented to [facility] emergency room. An initial chest x-ray revealed right lower lobe pneumonia. The patient is admitted for shortness of breath and pneumonia. PAST MEDICAL HISTORY: Significant for, 1. Chronic obstructive pulmonary disease. 2. Allergic rhinitis. 3. Hypertension. 4. Hypercholesterolemia. 5. History of right breast cancer in 1974. 6. History of Clostridium difficile colitis. 7. Osteoporosis. 8. Anxiety disorder. 9. Chronic anemia. PAST SURGICAL HISTORY: Significant for, 1. Right breast lumpectomy in 1974. 2. Eye surgery. CURRENT MEDICATIONS: 1. Aspirin 81 mg 1 tablet p.o. daily. 2. Calcium/vitamin D 2 tablets p.o. daily. 3. Coreg 3.125 mg p.o. twice daily. 4. Citalopram 10 mg 1 tablet p.o. daily. 5. Klonopin 1 mg 1 tablet p.o. daily. 6. [place] 5/325 mg 1 tablet p.o. q.6 h. p.r.n. 7. Combivent 1 spray 4 times daily. 8. Lisinopril 20 mg 1 tablet p.o. twice daily. 9. Multivitamin 1 tablet p.o. daily. 10. Zofran 8 mg p.o. q.8 h. p.r.n. 11. Potassium chloride 8 mEq 1 tablet p.o. daily. 12. Pravastatin 20 mg p.o. daily. 13. Lyrica 225 mg twice daily. 14. Evista 60 mg p.o. daily. 15. Zantac 300 mg 1 tablet p.o. at bedtime. 16. Rapaflo 8 mg p.o. daily. 17. Spiriva 18 mcg 1 puff p.o. daily. 18. Tramadol 50 mg 1 tablet p.o. q.6 h. p.r.n. ALLERGIES: To tetracycline. SOCIAL HISTORY: The patient is single and lives alone. The patient admits to tobacco use, however, quit in 2009. The patient smokes 1 pack per day for approximately 60 years. The patient denies alcohol use. 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 REVIEW OF SYSTEMS: CONSTITUTIONAL: The patient denies weight loss or weight gain. The patient denies fevers or chills. HEENT: The patient denies ear or throat pain. The patient denies headache. CARDIOVASCULAR: The patient denies palpitations or chest pain. CHEST: The patient complains of cough as above. The patient complains of shortness of breath as above. The patient denies wheezes. ABDOMINAL: The patient denies nausea, vomiting, diarrhea, or constipation. GENITOURINARY: The patient denies dysuria or increased frequency of urination. NEUROMUSCULAR: The patient denies seizure or generalized weakness. PHYSICAL EXAMINATION: VITAL SIGNS: Temperature 97.9, respirations 18, pulse 90 to 114, blood pressure 126-144/60-69. GENERAL: The patient is well-developed, well-nourished female, in no apparent distress. HEENT: Eyes, pupils are equal and responsive to light and accommodation. Extraocular movements are intact. NECK: Supple without lymphadenopathy. CHEST: Diffuse wheezes at bilateral bases with decreased breath sounds on the right, otherwise, clear to auscultation bilaterally without wheezes or rales. CARDIOVASCULAR: Regular rhythm and rate. S1 and S2 are normal without murmurs, rubs, or gallops. ABDOMEN: Soft, nontender, and nondistended. Positive bowel sounds. No evidence of hepatosplenomegaly. Currently, no rebound or guarding noted. EXTREMITIES: Negative for clubbing, cyanosis, or edema. RECTAL/GENITAL: Refused. NEUROLOGIC: Cranial nerves II through XII are grossly intact without focal deficits. Motor strength is 5/5 bilaterally. Deep tendon reflexes are 2+ plantar. LABORATORY STUDIES: WBC 7.8, hemoglobin 11.0, hematocrit 37.2, platelets 159,000. Sodium 137, potassium 4.3, chloride 103, CO2 24, BUN 43, creatinine 1.1, glucose 115. BNP elevated at 1742. Troponin normal at 0.0. Chest x-ray revealed right lower lobe pneumonia. ASSESSMENT: This is a 76-year-old white female with, 1. Right lower lobe pneumonia. 2. Shortness of breath. 3. Cough. 4. Chronic obstructive pulmonary disease. 5. Hypertension. 6. Hypercholesterolemia. 7. Osteoporosis. 8. Anxiety. 9. Allergic rhinitis. TREATMENT: 1. Shortness of breath/right lower lobe pneumonia. An Infectious Diseases consultation will be obtained with Dr. Ovalles. The patient has been started empirically on Levaquin and vancomycin. A Pulmonary consultation is pending. The patient has been started on Solu-Medrol for chronic obstructive pulmonary disease. 2. Hypertension. Continue Coreg and lisinopril as above. 3. Hypercholesterolemia. Continue Pravachol as above. 4. Osteoporosis. Continue Evista as above. 5. Anxiety disorder. Continue Klonopin as above. Continue Celexa as above. Jj Contreras M.D. DR: Liss JOB#: [id number] CC:
[2017-02-16 20:00] VITALS: BP 187/95
[2017-02-16] MEDS: LORazepam Inj 2mg/ml 1ml IV PRN (21:23)
[2017-02-17] MEDS: Solu-MEDROL 125mg Inj IVP SCH ×2 (00:32→05:00)
[2017-02-17 00:54] VITALS: BP 165/89
[2017-02-17] MEDS: Albuterol/Ipratropium 3ml neb HHN SCH ×7 (01:16→23:00)
--- NOTE | 2017-02-17 02:45 | Consultation ---
DATE OF CONSULTATION: 02/16/2017 CARDIOLOGY CONSULTATION CONSULTING PHYSICIAN: Cristopher Roque M.D. REFERRING PHYSICIAN: Ric Hernandez M.D. REASON FOR REFERRAL: Shortness of breath. HISTORY OF PRESENT ILLNESS: This is a 76-year-old female, who is brought in by emergency medical services because of shortness of breath and hypoxemia, apparently she has been treated for pneumonia, so paramedics noted lot of rhonchi and she was placed on a non-rebreather mask ,to which she did respond. She is on home oxygen apparently at home. She came in because of this and she tells me that she has been having these symptoms for a while, but she has been refusing to come to the hospital. She does not really have any chest pains. She uses head of the bed up because of comfort she experiences due to her neck. She does occasionally have palpitation. No dizziness or lightheadedness. She does not really ambulate much, and she has had several hospitalizations at [facility]. PAST MEDICAL HISTORY: Positive for history of coronary artery disease, hypertension, mitral regurgitation, congestive heart failure, diastolic in origin, hyperlipidemia as well as subdural hematoma, multiple falls, anemia, prior history of fibromyalgia, chronic abdominal pains, anxiety, bacteremia, and anemia of chronic disease. She has also had severe protein-calorie malnutrition, hyponatremia, cellulitis, and intraparenchymal hematoma of the brain. C. difficile colitis, breast cancer, previously marked fibromyalgia, and osteoporosis. ALLERGIES: She is allergic to tetracycline. SOCIAL HISTORY: She quit smoking approximately 6 to 7 years ago. Does not drink alcoholic beverages. She lives at home. REVIEW OF SYSTEMS: GASTROINTESTINAL: She has had nausea and vomiting. No diarrhea. She does occasionally have bloody stools. GENITOURINARY: She denies any discomfort on urination, although she urinates a lot because of bladder problem. PULMONARY: Positive for coughing and wheezing. She has congestion. CONSTITUTIONAL: No fevers, chills, or night sweats. NEUROLOGIC: She is basically bed bound. PHYSICAL EXAMINATION: GENERAL: Physical examination shows her to be an elderly female, in no respiratory distress, although she is intermittently coughing. Sounds congested. NECK: Supple. No jugular venous distention. CHEST: Significant rhonchi noted bilaterally. No significant wheezes are noted. CARDIAC: Regular rate and rhythm. Holosystolic regurgitant murmur is noted. ABDOMEN: Soft and nontender. Positive bowel sounds. EXTREMITIES: There is no clubbing, cyanosis, nor is there any edema. NEUROLOGICAL: She is awake, alert, responsive, in no apparent respiratory distress. LABORATORY VALUES: White count 7.6, hemoglobin 10.4, and platelet count of 178,000. Sodium 139, potassium 3.7, chloride 101, bicarbonate 25, BUN 32, creatinine 0.9, and glucose of 105. Lactic acid of 0.7. Albumin of 2.5. Troponin of 0.00 and proBNP was 1721. Coagulations, INR 0.9, PTT of 33. Urinalysis is fairly unremarkable. A chest x-ray performed in the emergency room shows basically limited evaluation due to significant degree of soft tissue attenuation, suspected pneumonia at the right base, possible interstitial edema. EKG shows sinus tachycardia at a rate of 108. Really no significant ST or T-wave abnormalities. An echocardiogram has been performed that shows technically difficult study, grossly normal left ventricular systolic function, moderate mitral regurgitation, diastolic relaxation abnormality of grade 1, and pulmonary hypertension in the 40s. ASSESSMENT AND PLAN: 1. Respiratory failure. 2. Chronic obstructive pulmonary disease exacerbation. 3. Questionable pneumonia. 4. History of mitral regurgitation of significant degree. 5. History of subdural hematomas and intracranial hemorrhage. 6. History of breast cancer. 7. Anemia. 8. History of Clostridium difficile colitis. 9. History of anxiety. 10. Sinus tachycardia secondary to above. Dr. Hernandez, this patient was seen in cardiac consultation. The patient's main issue appears at this time to be an infectious etiology of the COPD exacerbation. We would continue treatment as you have for underlying COPD. I will monitor for congestive heart failure, although it would be difficult to tell because of the rhonchi whether this is any congestive heart failure at this time. I will follow the patient along. Her blood pressure readings have been normal to high range. The heart rate appears to have improved significantly since her admission and she is afebrile at this time. She will be continued on her usual medications that she was taking at home as much as possible including aspirin, Coreg 3.125 mg twice daily, as well as lisinopril 20 mg twice daily, pravastatin 20 mg daily and the rest of the medications will be left to you as you think is necessary. Cristopher Roque M.D. DR: JUAN JOB#: [id number] CC:
[2017-02-17 04:00] VITALS: BP 183/105
[2017-02-17] MEDS: Norco 5mg/325mg tab ORAL PRN (05:00)
[2017-02-17] MEDS: Morphine Sulfate 4mg/ml Inj IVP PRN ×4 (05:37→20:17)
[2017-02-17 06:27] LABS: BASOPHILS % (AUTO) 0.2 % (0.0-2.0); HEMATOCRIT 32.7 % (37.0-47.0); HEMOGLOBIN 10.9 G/DL (12.0-16.0); LYMPHOCYTES % (AUTO) 14.3 % (20.0-45.0); MEAN CORPUSCULAR VOLUME 102 FL (80-99); MONOCYTES % (AUTO) 3.7 % (1.0-10.0); NEUTROPHILS % (AUTO) 81.7 % (45.0-75.0); PLATELET COUNT 187 K/UL (150-450); RED CELL DISTRIBUTION WIDTH 12.7 % (11.6-14.8); WHITE BLOOD COUNT 6.9 K/UL (4.8-10.8)
[2017-02-17] MEDS: Promethazine/Codeine 5ml UD ORAL PRN ×2 (06:48→17:49)
[2017-02-17 06:59] LABS: INR 0.9 (0.9-1.1)
[2017-02-17 07:02] LABS: ALANINE AMINOTRANSFERASE 25 U/L (12-78); ALBUMIN 2.6 G/DL (3.4-5.0); ALBUMIN/GLOBULIN RATIO 0.6 (1.0-2.7); ALKALINE PHOSPHATASE 71 U/L (46-116); ANION GAP 11 (5-15); ASPARTATE AMINO TRANSFERASE 24 U/L (15-37); BILIRUBIN,TOTAL 0.4 MG/DL (0.2-1.0); BLOOD UREA NITROGEN 22 mg/dL (7-18); CALCIUM 9.6 MG/DL (8.5-10.1); CARBON DIOXIDE 24 MMOL/L (21-32); CHLORIDE 100 MMOL/L (98-107); CREATININE 0.7 MG/DL (0.55-1.30); SODIUM 135 MMOL/L (136-145)
[2017-02-17 07:12] LABS: LACTATE DEHYDROGENASE 204 U/L (81-234); PHOSPHORUS 2.8 MG/DL (2.5-4.9)
--- NOTE | 2017-02-17 07:41 | Cardiology Report ---
APPROVED REPORT EXAM: Two-dimensional and M-mode echocardiogram with Doppler and color Doppler. INDICATION Left Ventricular Function M-Mode DIMENSIONS IVSd1.4 (0.7-1.1cm)Left Atrium (MM)3.5 (1.6-4.0cm) LVDd4.6 (3.5-5.6cm)Aortic Root2.6 (2.0-3.7cm) PWd1.4 (0.7-1.1cm)Aortic Cusp Exc.1.9 (1.5-2.0cm) LVDs3.1 (2.5-4.0cm) PWs1.8 cm Technically difficult study due to poor parasternal acoustical windows. Study quality precludes accurate assessment of regional wall motion. Normal left ventricular chamber size. Basal to mid anteroseptal wall hypokinesia is seen. Ischemic cardiomyopathy cannot be excluded. Left ventricular ejection fraction is estimated at 50%. Mild left ventricular hypertrophy. No evidence of pericardial effusion. All other cardiac chamber sizes are within normal limits. Mild focal aortic valve sclerosis with adequate cusp excursion. Mildly thickened mitral valve leaflets with normal excursion. Mild mitral annulus and aortic root calcification. Normal pulmonic valve structure. Normal tricuspid valve structure. IVC dilated at 2.2 cm with physiologic collapse, estimated RAP is 10 mmHg. A color flow and spectral Doppler study was performed and revealed: No aortic regurgitation. Moderate mitral regurgitation. Mitral diastolic velocities suggest reduced left ventricular relaxation c/w mild LV diastolic dysfunction (Grade I). Mild tricuspid regurgitation. Tricuspid systolic velocities suggests peak right ventricular systolic pressure of 43 mmHg, consistent with moderate pulmonary hypertension. No pulmonic regurgitation present.
[2017-02-17 08:00] VITALS: BP 187/88
[2017-02-17] MEDS: Lyrica 75mg cap ORAL SCH ×3 (08:08→17:49)
[2017-02-17] MEDS: Cefepime HCl 2 GM in D5W 110 ML IV SCH ×2 (08:08→20:14)
[2017-02-17] MEDS: Lisinopril 20mg tab ORAL SCH ×2 (08:09→17:49)
[2017-02-17] MEDS: Aspirin EC 81mg tab ORAL SCH (08:09)
--- NOTE | 2017-02-17 08:09 | Cardiology Report ---
APPROVED REPORT EKG Measurement Heart [id number] Sinus tachycardia Possible Left atrial enlargement Left ventricular hypertrophy Abnormal ECG
--- NOTE | 2017-02-17 08:09 | Cardiology Report ---
APPROVED REPORT EKG Measurement Heart [id number] Sinus tachycardia Possible Left atrial enlargement Left ventricular hypertrophy Abnormal ECG
--- NOTE | 2017-02-17 08:09 | Cardiology Report ---
APPROVED REPORT EKG Measurement Heart [id number] [place] [id number] Sinus tachycardia Possible Left atrial enlargement Left ventricular hypertrophy Abnormal ECG
[2017-02-17] MEDS: LORazepam Inj 2mg/ml 1ml IV PRN (08:10)
[2017-02-17] MEDS: Vancomycin oral 125mg/2.5ml ORAL SCH ×2 (08:11→17:49)
[2017-02-17] MEDS: Heparin 5000 units/ml inj SUBQ SCH ×2 (08:43→20:27)
[2017-02-17 08:48] LABS: % IRON SATURATION 22 % (15-50); IRON 39 ug/dL (50-175); TOTAL IRON BINDING CAPACITY 177 ug/dL (250-450)
--- NOTE | 2017-02-17 10:04 | Pulmonology Progress Note ---
Assessment/Plan Problems: (1) Acute and chronic respiratory failure ([id number]-[id number]) (2) COPD exacerbation (3) Pneumonia (4) Fibromyalgia (5) History of breast cancer (6) Limited mobility Assessment/Plan still coughing a lot trial of lidocain inhalation chest PT taper steroids keep in CAYETANO check sputum consult reviewed. Subjective ROS Limited/Unobtainable: No Constitutional: Reports: no symptoms HEENT: Repors: no symptoms Respiratory: Reports: no symptoms Allergies: Coded Allergies: TETRACYCLINE (Unverified Allergy, Unknown, 07/24/14) Objective Last 24 Hour Vital Signs Date Time Temp Pulse Resp B/P (MAP) Pulse Ox O2 Delivery O2 Flow Rate FiO2 02/17/17 09:07 97.5 02/17/17 08:09 187/88 02/17/17 08:09 125 187/88 02/17/17 08:00 117 02/17/17 08:00 97.3 125 22 187/88 92 Nasal Cannula 4.0 02/17/17 07:25 116 20 100 Nasal Cannula 2.0 28 02/17/17 07:10 114 20 97 Nasal Cannula 2.0 28 02/17/17 06:01 97.5 02/17/17 06:01 97.5 02/17/17 04:00 97.5 111 24 183/105 94 Nasal Cannula 4.0 02/17/17 04:00 105 02/17/17 04:00 97.5 111 24 183/105 94 Nasal Cannula 5.0 02/17/17 03:55 105 20 98 Nasal Cannula 4.0 36 02/17/17 03:55 100 20 97 Nasal Cannula 2.0 28 02/17/17 00:54 97.0 101 22 165/89 98 Nasal Cannula 5.0 02/17/17 00:00 110 02/16/17 23:45 112 20 99 Nasal Cannula 4.0 36 02/16/17 23:30 108 20 96 Nasal Cannula 2.0 28 02/16/17 20:35 106 187/95 02/16/17 20:00 97.0 106 24 187/95 95 Nasal Cannula 5.0 02/16/17 20:00 109 02/16/17 19:30 16 95 Nasal Cannula 4.0 36 02/16/17 19:30 Nasal Cannula 4.0 36 02/16/17 19:30 Nasal Cannula 2.0 28 02/16/17 17:32 153/73 02/16/17 16:00 106 02/16/17 16:00 97.3 104 20 156/82 95 Nasal Cannula 5.0 02/16/17 15:10 88 16 98 Nasal Cannula 5.0 40 02/16/17 15:09 97.8 02/16/17 14:07 85 153/73 02/16/17 12:00 97.7 105 20 162/84 94 Nasal Cannula 5.0 02/16/17 12:00 96 02/16/17 11:10 85 16 98 Nasal Cannula 5.0 40 02/16/17 11:00 85 16 98 Nasal Cannula 5.0 40 Objective had episode of cough spell General Appearance: WD/WN HEENT: normocephalic, atraumatic Respiratory/Chest: chest wall non-tender, lungs clear, normal breath sounds, decreased breath sounds, crackles/rales Cardiovascular: normal peripheral pulses, normal rate Abdomen: normal bowel sounds, soft, non tender Genitourinary: normal external genitalia Skin: no rash Neurologic/Psychiatric: 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 grossly normal, no motor/sensory deficits Microbiology Date/Time Source Procedure Growth Status 02/15/17 19:30 Blood Blood Culture - Preliminary NO GROWTH AFTER 24 HOURS Resulted 02/15/17 19:20 Blood Blood Culture - Preliminary NO GROWTH AFTER 24 HOURS Resulted Laboratory Tests 02/17/17 04:45: White Blood Count 6.9, Red Blood Count 3.20L, Hemoglobin 10.9L, Hematocrit 32.7L , Mean Corpuscular Volume 102H, Mean Corpuscular Hemoglobin 34.1H, Mean Corpuscular Hemoglobin Concent 33.3, Red Cell Distribution Width 12.7, Platelet Count 187, Mean Platelet Volume 7.5, Neutrophils (%) (Auto) 81.7H, Lymphocytes ( %) (Auto) 14.3L, Monocytes (%) (Auto) 3.7, Eosinophils (%) (Auto) 0.0, Basophils (%) (Auto) 0.2, Erythrocyte Sedimentation Rate 110H, Reticulocyte Count 1.4, Prothrombin Time 9.8, Prothromb Time International Ratio 0.9, Activated Partial Thromboplast Time 32, Sodium Level 135L, Potassium Level 4.0, Chloride Level 100, Carbon Dioxide Level 24, Anion Gap 11, Blood Urea Nitrogen 22H, Creatinine 0.7, Estimat Glomerular Filtration Rate , Glucose Level 148H, Calcium Level 9.6, Phosphorus Level 2.8, Magnesium Level 1.8, Iron Level 39L, Total Iron Binding Capacity 177L, Percent Iron Saturation 22, Unsaturated Iron Binding 138, Total Bilirubin 0.4, Aspartate Amino Transf (AST/SGOT) 24, Alanine Aminotransferase (ALT/SGPT) 25, Alkaline Phosphatase 71, Lactate Dehydrogenase 204, C-Reactive Protein, Quantitative [Pending], Total Protein 7.1, Albumin 2.6L , Globulin 4.5, Albumin/Globulin Ratio 0.6L, Carcinoembryonic Antigen [Pending] , Vitamin B12 Level 1092H, Folate [Pending] Current Medications Medications (Trade) Dose Ordered Sig/Wilner Route PRN Reason Start Time Stop Time Status Last Admin Dose Admin Acetaminophen (Tylenol) 650 mg Q4H PRN ORAL FEVER 02/15/17 22:45 03/17/17 22:44 Acetaminophen/ Hydrocodone Bitart ([place] 5/325) 1 tab Q6H PRN ORAL Moderate Pain (Pain Scale 4-6) 02/16/17 12:00 02/23/17 11:59 02/17/17 05:00 Albuterol/ Ipratropium (DuoNeb 0.5-3(2.5)mg/3ml) 3 ml Q4HRT HHN 02/16/17 11:00 02/21/17 10:59 02/17/17 07:21 Aspirin (Ecotrin) 81 mg DAILY ORAL 02/17/17 09:00 03/19/17 08:59 02/17/17 08:09 Carvedilol (Coreg) 3.125 mg Q12HR ORAL 02/16/17 12:00 03/18/17 11:59 02/17/17 08:09 Cefepime HCl 2 gm/ Dextrose 110 ml @ 220 mls/hr EVERY 12 HOURS IV 02/16/17 09:00 02/23/17 08:59 02/17/17 08:08 Dextrose (Dextrose 50%) STAT PRN IV Hypoglycemia 02/15/17 22:45 03/17/17 22:44 Heparin Sodium (Porcine) (Heparin 5000 units/ml) 5,000 units EVERY 12 HOURS SUBQ 02/16/17 09:00 03/18/17 08:59 02/16/17 20:37 Lisinopril (Prinivil) 20 mg BID ORAL 02/16/17 18:00 03/18/17 17:59 02/17/17 08:09 Lorazepam (Ativan 2mg/ml 1ml) 2 mg EVERY 2 HOURS PRN IV For Anxiety 02/15/17 22:45 02/22/17 22:44 02/17/17 08:10 Methadone HCl (Methadone HCl) 5 mg EVERY 12 HOURS ORAL 02/16/17 21:00 02/23/17 20:59 02/17/17 08:10 Methylprednisolone Sodium Succinate (Solu-MEDROL) 60 mg EVERY 6 HOURS IVP 02/16/17 12:00 03/18/17 11:59 02/17/17 05:00 Morphine Sulfate (Morphine Sulfate) 4 mg EVERY 4 HOURS PRN IVP Severe Pain (Pain Scale 7-10) 02/15/17 22:45 02/22/17 22:44 02/17/17 05:37 Ondansetron HCl (Zofran) 4 mg Q6H PRN IVP Nausea & Vomiting 02/15/17 22:45 03/17/17 22:44 Polyethylene Glycol (Miralax) 17 gm DAILYPRN PRN ORAL Constipation 02/15/17 22:45 03/17/17 22:44 02/17/17 04:59 Pravastatin Sodium (Pravachol) 20 mg BEDTIME ORAL 02/16/17 21:00 03/18/17 20:59 02/16/17 20:34 Pregabalin (Lyrica) 150 mg THREE TIMES A DAY ORAL 02/16/17 13:00 03/18/17 12:59 02/17/17 08:08 Promethazine HCl/ Codeine (Phenergan with Codeine) 5 ml Q4H PRN ORAL For Cough 02/16/17 10:45 03/18/17 10:44 02/17/17 06:48 Sodium Chloride 1,000 ml @ 50 mls/hr Q20H IV 02/15/17 22:50 03/17/17 22:49 02/17/17 02:36 Vancomycin HCl (Vanco rx to dose) 1 ea DAILY PRN MISC PER RX PROTOCOL 02/16/17 07:45 03/18/17 07:44 Vancomycin HCl (Vancomycin) 125 mg BID ORAL 02/16/17 13:00 02/23/17 12:59 02/17/17 08:11 Vancomycin HCl/ Dextrose 250 ml @ 166.667 mls/hr Q24H IVPB 02/15/17 23:30 02/20/17 23:29 02/16/17 23:10 TWIN FONTANEZ Feb 17, 2017 10:04
[2017-02-17] MEDS ORDERED: Lidocaine 1% MPF 10mg/ml 5ml HHN PRN (10:15)
[2017-02-17 12:00] VITALS: BP 165/103
--- NOTE | 2017-02-17 13:54 | Diagnostic Imaging Report ---
Indication: SOB Technique: One view of the chest Comparison: 02/15/2017 Findings: There is somewhat decreased but persistent and still extensive consolidation in the right mid and lower lung. Consolidation, atelectasis, and pleural fluid at the left lung base persists and are probably unchanged, allowing for positioning differences. Surgical clips project over the right pulmonary hilum and within the right axilla. There is an old healed fracture deformity of the left shoulder Impression: Somewhat improved but persistent and still extensive consolidation in the right mid and lower lung, over 2 days Stable pleural and parenchymal disease at the left lung base Other stable findings as described
--- NOTE | 2017-02-17 15:42 | Internal Med Progress Note ---
Subjective Date of Service: Feb 17, 2017 Physician Name Zeb Fuentes Attending Physician Jun Cedillo MD Current Medications Medications (Trade) Dose Ordered Sig/Wilner Route PRN Reason Start Time Stop Time Status Last Admin Dose Admin Acetaminophen (Tylenol) 650 mg Q4H PRN ORAL FEVER 02/15/17 22:45 03/17/17 22:44 Acetaminophen/ Hydrocodone Bitart ([place] 5/325) 1 tab Q6H PRN ORAL Moderate Pain (Pain Scale 4-6) 02/16/17 12:00 02/23/17 11:59 02/17/17 05:00 Albuterol/ Ipratropium (DuoNeb 0.5-3(2.5)mg/3ml) 3 ml Q4HRT HHN 02/16/17 11:00 02/21/17 10:59 02/17/17 15:06 Aspirin (Ecotrin) 81 mg DAILY ORAL 02/17/17 09:00 03/19/17 08:59 02/17/17 08:09 Carvedilol (Coreg) 3.125 mg Q12HR ORAL 02/16/17 12:00 03/18/17 11:59 02/17/17 08:09 Cefepime HCl 2 gm/ Dextrose 110 ml @ 220 mls/hr EVERY 12 HOURS IV 02/16/17 09:00 02/23/17 08:59 02/17/17 08:08 Dextrose (Dextrose 50%) STAT PRN IV Hypoglycemia 02/15/17 22:45 03/17/17 22:44 Heparin Sodium (Porcine) (Heparin 5000 units/ml) 5,000 units EVERY 12 HOURS SUBQ 02/16/17 09:00 03/18/17 08:59 02/16/17 20:37 Hydralazine HCl (Apresoline) 10 mg Q8H PRN IV SBP > 160 02/17/17 14:30 03/19/17 14:29 Lidocaine (Xylocaine 1% MPF 5ml) 10 ml Q4H PRN HHN cough 02/17/17 10:15 03/19/17 10:14 Lisinopril (Prinivil) 20 mg BID ORAL 02/16/17 18:00 03/18/17 17:59 02/17/17 08:09 Lorazepam (Ativan 2mg/ml 1ml) 2 mg EVERY 2 HOURS PRN IV For Anxiety 02/15/17 22:45 02/22/17 22:44 02/17/17 08:10 Methadone HCl (Methadone HCl) 5 mg EVERY 12 HOURS ORAL 02/16/17 21:00 02/23/17 20:59 02/17/17 08:10 Methylprednisolone Sodium Succinate (Solu-MEDROL) 60 mg DAILY IVP 02/18/17 09:00 03/18/17 11:59 Morphine Sulfate (Morphine Sulfate) 4 mg EVERY 4 HOURS PRN IVP Severe Pain (Pain Scale 7-10) 02/15/17 22:45 02/22/17 22:44 02/17/17 14:59 Ondansetron HCl (Zofran) 4 mg Q6H PRN IVP Nausea & Vomiting 02/15/17 22:45 03/17/17 22:44 Polyethylene Glycol (Miralax) 17 gm DAILYPRN PRN ORAL Constipation 02/15/17 22:45 03/17/17 22:44 02/17/17 04:59 Pravastatin Sodium (Pravachol) 20 mg BEDTIME ORAL 02/16/17 21:00 03/18/17 20:59 02/16/17 20:34 Pregabalin (Lyrica) 150 mg THREE TIMES A DAY ORAL 02/16/17 13:00 03/18/17 12:59 02/17/17 12:36 Promethazine HCl/ Codeine (Phenergan with Codeine) 5 ml Q4H PRN ORAL For Cough 02/16/17 10:45 03/18/17 10:44 02/17/17 06:48 Vancomycin HCl (Vanco rx to dose) 1 ea DAILY PRN MISC PER RX PROTOCOL 02/16/17 07:45 03/18/17 07:44 Vancomycin HCl (Vancomycin) 125 mg BID ORAL 02/16/17 13:00 02/23/17 12:59 02/17/17 08:11 Vancomycin HCl/ Dextrose 250 ml @ 166.667 mls/hr Q24H IVPB 02/15/17 23:30 02/20/17 23:29 02/16/17 23:10 Allergies: Coded Allergies: TETRACYCLINE (Unverified Allergy, Unknown, 07/24/14) ROS Limited/Unobtainable: No Constitutional: Reports: no symptoms HEENT: Reports: no symptoms Cardiovascular: Reports: no symptoms Respiratory: Reports: cough, shortness of breath Gastrointestinal/Abdominal: Reports: no symptoms Neurologic/Psychiatric: Reports: no symptoms Subjective 76 YO F admitted with shortness of breath. Now pneumonia. Cover for Int Med- Dr Cedillo. CAYETANO Objective Last Vital Signs Date Time Temp Pulse Resp B/P (MAP) Pulse Ox O2 Delivery O2 Flow Rate FiO2 02/17/17 15:08 110 20 100 Nasal Cannula 2.0 28 02/17/17 13:35 97.5 02/17/17 12:00 165/103 General Appearance: WD/WN, no apparent distress, alert EENT: PERRL/EOMI, normal ENT inspection, TMs normal Neck: non-tender, normal alignment, supple, normal inspection Cardiovascular: normal peripheral pulses, normal rate, regular rhythm, no gallop/murmur, no JVD Respiratory/Chest: chest wall non-tender, respiratory distress, decreased breath sounds, crackles/rales, rhonchi - bilaterally, expiratory wheezing Abdomen: normal bowel sounds, non tender, soft, no organomegaly, no mass Extremities: normal range of motion Neurologic: 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3 % (20.0-45.0) L Monocytes (%) (Auto) 3.7 % (1.0-10.0) Eosinophils (%) (Auto) 0.0 % (0.0-3.0) Basophils (%) (Auto) 0.2 % (0.0-2.0) Differential Total Cells Counted 100 Neutrophils % (Manual) 77 % (45-75) H Lymphocytes % (Manual) 16 % (20-45) L Monocytes % (Manual) 4 % (1-10) Eosinophils % (Manual) 0 % (0-3) Basophils % (Manual) 0 % (0-2) Band Neutrophils 3 % (0-8) Platelet Estimate Adequate Platelet Morphology Normal Macrocytosis 1+ Erythrocyte Sedimentation Rate 110 MM/HR (0-30) H Reticulocyte Count 1.4 % (0.0-2.0) Prothrombin Time 9.8 SEC (9.30-11.50) Prothromb Time International Ratio 0.9 (0.9-1.1) Activated Partial Thromboplast Time 32 SEC (23-33) Sodium Level 135 MMOL/L (136-145) L Potassium Level 4.0 MMOL/L (3.5-5.1) Chloride Level 100 MMOL/L (98-107) Carbon Dioxide Level 24 MMOL/L (21-32) Anion Gap 11 (5-15) Blood Urea Nitrogen 22 mg/dL (7-18) H Creatinine 0.7 MG/DL (0.55-1.30) Estimat Glomerular Filtration Rate mL/min (>60) Glucose Level 148 MG/DL (74-106) H Calcium Level 9.6 MG/DL (8.5-10.1) Phosphorus Level 2.8 MG/DL (2.5-4.9) Magnesium Level 1.8 MG/DL (1.8-2.4) Iron Level 39 ug/dL (50-175) L Total Iron Binding Capacity 177 ug/dL (250-450) L Percent Iron Saturation 22 % (15-50) Unsaturated Iron Binding 138 ug/dL (112-346) Total Bilirubin 0.4 MG/DL (0.2-1.0) Aspartate Amino Transf (AST/SGOT) 24 U/L (15-37) Alanine Aminotransferase (ALT/SGPT) 25 U/L (12-78) Alkaline Phosphatase 71 U/L (46-116) Lactate Dehydrogenase 204 U/L (81-234) C-Reactive Protein, Quantitative 22.0 mg/dL (0.00-0.90) H Total Protein 7.1 G/DL (6.4-8.2) Albumin 2.6 G/DL (3.4-5.0) L Globulin 4.5 g/dL Albumin/Globulin Ratio 0.6 (1.0-2.7) L Carcinoembryonic Antigen Pending Vitamin B12 Level 1092 PG/ML (193-986) H Folate Pending Microbiology Date/Time Source Procedure Growth Status 02/15/17 19:30 Blood Blood Culture - Preliminary NO GROWTH AFTER 24 HOURS Resulted 02/15/17 19:20 Blood Blood Culture - Preliminary NO GROWTH AFTER 24 HOURS Resulted Intake and Output 02/17/17 02/18/17 19:00 07:00 Intake Total 110 ml Balance 110 ml IV Total 110 ml Assessment/Plan Problem List: (1) Allergic rhinitis (2) Hypertension Assessment & Plan: Continue lisinopril and hydralazine (3) Hypercholesteremia Assessment & Plan: Continue pravachol (4) Osteoporosis (5) Anxiety (6) Cough (7) SOB (shortness of breath) Assessment & Plan: Due to pneumonia and COPD (8) Pneumonia Assessment & Plan: Continue vancomycin and cefepime. See ID and pulmonary notes. (9) COPD exacerbation Assessment & Plan: Continue IV solumedrol and albuterol nebs. See pulmonary note. Status: not improved ZEB FUENTES Feb 17, 2017 15:42
[2017-02-17 16:00] VITALS: BP 157/96
--- NOTE | 2017-02-17 16:34 | Cardiology Progress Note ---
Assessment/Plan Assessment/Plan 1. Respiratory failure. 2. Chronic obstructive pulmonary disease exacerbation. 3. Questionable pneumonia. 4. History of mitral regurgitation of significant degree. 5. History of subdural hematomas and intracranial hemorrhage. 6. History of breast cancer. 7. Anemia. 8. History of Clostridium difficile colitis. 9. History of anxiety. 10. Sinus tachycardia secondary to above. 11. Htn conitneu pulm rxn on acie will add norvasc for bp dc ivf tele reviewed labs reviweed Subjective Cardiovascular: Reports: palpitations, Denies: chest pain, lightheadedness Respiratory: Reports: cough, shortness of breath, sputum, wheezing Gastrointestinal/Abdominal: Denies: abdominal pain Genitourinary: Denies: burning Objective Last 24 Hour Vital Signs Date Time Temp Pulse Resp B/P (MAP) Pulse Ox O2 Delivery O2 Flow Rate FiO2 02/17/17 15:08 110 20 100 Nasal Cannula 2.0 28 02/17/17 15:00 106 20 99 Nasal Cannula 2.0 28 02/17/17 13:35 97.5 02/17/17 12:00 97.7 126 18 165/103 93 Nasal Cannula 2.0 02/17/17 11:41 114 20 100 Nasal Cannula 2.0 28 02/17/17 11:36 120 02/17/17 11:30 110 20 99 Nasal Cannula 2.0 28 02/17/17 11:24 97.5 02/17/17 08:09 187/88 02/17/17 08:09 125 187/88 02/17/17 08:00 117 02/17/17 08:00 97.3 125 22 187/88 92 Nasal Cannula 4.0 02/17/17 07:25 116 20 100 Nasal Cannula 2.0 28 02/17/17 07:10 114 20 97 Nasal Cannula 2.0 28 02/17/17 06:01 97.5 02/17/17 04:00 97.5 111 24 183/105 94 Nasal Cannula 4.0 02/17/17 04:00 105 02/17/17 04:00 97.5 111 24 183/105 94 Nasal Cannula 5.0 02/17/17 03:55 105 20 98 Nasal Cannula 4.0 36 02/17/17 03:55 100 20 97 Nasal Cannula 2.0 28 02/17/17 00:54 97.0 101 22 165/89 98 Nasal Cannula 5.0 02/17/17 00:00 110 02/16/17 23:45 112 20 99 Nasal Cannula 4.0 36 02/16/17 23:30 108 20 96 Nasal Cannula 2.0 28 02/16/17 20:35 106 187/95 02/16/17 20:00 97.0 106 24 187/95 95 Nasal Cannula 5.0 02/16/17 20:00 109 02/16/17 19:30 16 95 Nasal Cannula 4.0 36 02/16/17 19:30 Nasal Cannula 4.0 36 02/16/17 19:30 Nasal Cannula 2.0 28 02/16/17 17:32 153/73 General Appearance: no apparent distress, alert Neck: supple Cardiovascular: normal rate Respiratory/Chest: rhonchi - bilaterally, expiratory wheezing Abdomen: normal bowel sounds, non tender, soft Extremities: no swelling Intake and Output 02/17/17 02/18/17 18:59 06:59 Intake Total 110 ml Balance 110 ml IV Total 110 ml Laboratory Tests Test 02/17/17 04:45 White Blood Count 6.9 K/UL (4.8-10.8) Red Blood Count 3.20 M/UL (4.20-5.40) L Hemoglobin 10.9 G/DL (12.0-16.0) L Hematocrit 32.7 % (37.0-47.0) L Mean Corpuscular Volume 102 FL (80-99) H Mean Corpuscular Hemoglobin 34.1 PG (27.0-31.0) H Mean Corpuscular Hemoglobin Concent 33.3 G/DL (32.0-36.0) Red Cell Distribution Width 12.7 % (11.6-14.8) Platelet Count 187 K/UL (150-450) Mean Platelet Volume 7.5 FL (6.5-10.1) Neutrophils (%) (Auto) 81.7 % (45.0-75.0) H Lymphocytes (%) (Auto) 14.3 % (20.0-45.0) L Monocytes (%) (Auto) 3.7 % (1.0-10.0) Eosinophils (%) (Auto) 0.0 % (0.0-3.0) Basophils (%) (Auto) 0.2 % (0.0-2.0) Differential Total Cells Counted 100 Neutrophils % (Manual) 77 % (45-75) H Lymphocytes % (Manual) 16 % (20-45) L Monocytes % (Manual) 4 % (1-10) Eosinophils % (Manual) 0 % (0-3) Basophils % (Manual) 0 % (0-2) Band Neutrophils 3 % (0-8) Platelet Estimate Adequate Platelet Morphology Normal Macrocytosis 1+ Erythrocyte Sedimentation Rate 110 MM/HR (0-30) H Reticulocyte Count 1.4 % (0.0-2.0) Prothrombin Time 9.8 SEC (9.30-11.50) Prothromb Time International Ratio 0.9 (0.9-1.1) Activated Partial Thromboplast Time 32 SEC (23-33) Sodium Level 135 MMOL/L (136-145) L Potassium Level 4.0 MMOL/L (3.5-5.1) Chloride Level 100 MMOL/L (98-107) Carbon Dioxide Level 24 MMOL/L (21-32) Anion Gap 11 (5-15) Blood Urea Nitrogen 22 mg/dL (7-18) H Creatinine 0.7 MG/DL (0.55-1.30) Estimat Glomerular Filtration Rate mL/min (>60) Glucose Level 148 MG/DL (74-106) H Calcium Level 9.6 MG/DL (8.5-10.1) Phosphorus Level 2.8 MG/DL (2.5-4.9) Magnesium Level 1.8 MG/DL (1.8-2.4) Iron Level 39 ug/dL (50-175) L Total Iron Binding Capacity 177 ug/dL (250-450) L Percent Iron Saturation 22 % (15-50) Unsaturated Iron Binding 138 ug/dL (112-346) Total Bilirubin 0.4 MG/DL (0.2-1.0) Aspartate Amino Transf (AST/SGOT) 24 U/L (15-37) Alanine Aminotransferase (ALT/SGPT) 25 U/L (12-78) Alkaline Phosphatase 71 U/L (46-116) Lactate Dehydrogenase 204 U/L (81-234) C-Reactive Protein, Quantitative 22.0 mg/dL (0.00-0.90) H Total Protein 7.1 G/DL (6.4-8.2) Albumin 2.6 G/DL (3.4-5.0) L Globulin 4.5 g/dL Albumin/Globulin Ratio 0.6 (1.0-2.7) L Carcinoembryonic Antigen Pending Vitamin B12 Level 1092 PG/ML (193-986) H Folate Pending Microbiology Date/Time Source Procedure Growth Status 02/15/17 19:30 Blood Blood Culture - Preliminary NO GROWTH AFTER 24 HOURS Resulted 02/15/17 19:20 Blood Blood Culture - Preliminary NO GROWTH AFTER 24 HOURS Resulted JEFFERSON ROMEO Feb 17, 2017 16:34
--- NOTE | 2017-02-17 16:36 | Infectious Diseases Prog Note ---
Assessment/Plan Assessment/Plan Abx: IV Vanco/Cefepime 02/15- Assesment: Acute hypoxic resp failure, improving- combination of COPD exacerbation and PNA PNA -CXR 02/17: There is somewhat decreased but persistent and still extensive consolidation in the right mid and lower lung. Consolidation, atelectasis, and pleural fluid at the left lung base persists and are probably unchanged, -CXR: Limited evaluation due to significant degree of soft tissue attenuation. Suspect pneumonia at the right lung base. Afebrile, no leukocytosis COPD on home O2 Hx of Cdiff DM2 Chronic abd pain hx of MRSA bacteremia 07/2015 fibromyalgia, HTN, HLD, R breast cancer,Tobacco abuse (stopped 4 years ago), Anxiety, AOCD Plan: -Continue IV Vanco and Cefepime #3 pending sp cx -continue prophylatic PO Vancomycin #2 given prior hx of Cdiff and current abx treatment -F/u cultures -Monitor CBC/BMP, temperatures -Aspiration precautions Thank you for this consultation. Will continue to follow along with you. Discussed with RN. Subjective Allergies: Coded Allergies: TETRACYCLINE (Unverified Allergy, Unknown, 07/24/14) Subjective afebrile, VSS down to 2L NC no leukocytosis Objective Vital Signs Last 24 Hour Vital Signs Date Time Temp Pulse Resp B/P (MAP) Pulse Ox O2 Delivery O2 Flow Rate FiO2 02/17/17 15:08 110 20 100 Nasal Cannula 2.0 28 02/17/17 15:00 106 20 99 Nasal Cannula 2.0 28 02/17/17 13:35 97.5 02/17/17 12:00 97.7 126 18 165/103 93 Nasal Cannula 2.0 02/17/17 11:41 114 20 100 Nasal Cannula 2.0 28 02/17/17 11:36 120 02/17/17 11:30 110 20 99 Nasal Cannula 2.0 28 02/17/17 11:24 97.5 02/17/17 08:09 187/88 02/17/17 08:09 125 187/88 02/17/17 08:00 117 02/17/17 08:00 97.3 125 22 187/88 92 Nasal Cannula 4.0 02/17/17 07:25 116 20 100 Nasal Cannula 2.0 28 02/17/17 07:10 114 20 97 Nasal Cannula 2.0 28 02/17/17 06:01 97.5 02/17/17 04:00 97.5 111 24 183/105 94 Nasal Cannula 4.0 02/17/17 04:00 105 02/17/17 04:00 97.5 111 24 183/105 94 Nasal Cannula 5.0 02/17/17 03:55 105 20 98 Nasal Cannula 4.0 36 02/17/17 03:55 100 20 97 Nasal Cannula 2.0 28 02/17/17 00:54 97.0 101 22 165/89 98 Nasal Cannula 5.0 02/17/17 00:00 110 02/16/17 23:45 112 20 99 Nasal Cannula 4.0 36 02/16/17 23:30 108 20 96 Nasal Cannula 2.0 28 02/16/17 20:35 106 187/95 02/16/17 20:00 97.0 106 24 187/95 95 Nasal Cannula 5.0 02/16/17 20:00 109 02/16/17 19:30 16 95 Nasal Cannula 4.0 36 02/16/17 19:30 Nasal Cannula 4.0 36 02/16/17 19:30 Nasal Cannula 2.0 28 02/16/17 17:32 153/73 Height (Feet): 5 Height (Inches): 7.00 Weight (Pounds): 123 Objective General Appearance: resting comfortably in bed, on nasal canula HEENT: PERRL, no oral lesions, atraumatic head Neck: supple Respiratory: scattered wheezing Cardiovascular: regular rate, rhythmm, no murmurs Gastrointestinal: normal inspection, non tender, no mass, non-distended Musculoskeletal: back normal, normal range of motion Neurologic: AAO x3, no focal deficits Skin: no lesions or rashes Microbiology Date/Time Source Procedure Growth Status 02/15/17 19:30 Blood Blood Culture - Preliminary NO GROWTH AFTER 24 HOURS Resulted 02/15/17 19:20 Blood Blood Culture - Preliminary NO GROWTH AFTER 24 HOURS Resulted Laboratory Tests Test 02/17/17 04:45 White Blood Count 6.9 K/UL (4.8-10.8) Red Blood Count 3.20 M/UL (4.20-5.40) L Hemoglobin 10.9 G/DL (12.0-16.0) L Hematocrit 32.7 % (37.0-47.0) L Mean Corpuscular Volume 102 FL (80-99) H Mean Corpuscular Hemoglobin 34.1 PG (27.0-31.0) H Mean Corpuscular Hemoglobin Concent 33.3 G/DL (32.0-36.0) Red Cell Distribution Width 12.7 % (11.6-14.8) Platelet Count 187 K/UL (150-450) Mean Platelet Volume 7.5 FL (6.5-10.1) Neutrophils (%) (Auto) 81.7 % (45.0-75.0) H Lymphocytes (%) (Auto) 14.3 % (20.0-45.0) L Monocytes (%) (Auto) 3.7 % (1.0-10.0) Eosinophils (%) (Auto) 0.0 % (0.0-3.0) Basophils (%) (Auto) 0.2 % (0.0-2.0) Differential Total Cells Counted 100 Neutrophils % (Manual) 77 % (45-75) H Lymphocytes % (Manual) 16 % (20-45) L Monocytes % (Manual) 4 % (1-10) Eosinophils % (Manual) 0 % (0-3) Basophils % (Manual) 0 % (0-2) Band Neutrophils 3 % (0-8) Platelet Estimate Adequate Platelet Morphology Normal Macrocytosis 1+ Erythrocyte Sedimentation Rate 110 MM/HR (0-30) H Reticulocyte Count 1.4 % (0.0-2.0) Prothrombin Time 9.8 SEC (9.30-11.50) Prothromb Time International Ratio 0.9 (0.9-1.1) Activated Partial Thromboplast Time 32 SEC (23-33) Sodium Level 135 MMOL/L (136-145) L Potassium Level 4.0 MMOL/L (3.5-5.1) Chloride Level 100 MMOL/L (98-107) Carbon Dioxide Level 24 MMOL/L (21-32) Anion Gap 11 (5-15) Blood Urea Nitrogen 22 mg/dL (7-18) H Creatinine 0.7 MG/DL (0.55-1.30) Estimat Glomerular Filtration Rate mL/min (>60) Glucose Level 148 MG/DL (74-106) H Calcium Level 9.6 MG/DL (8.5-10.1) Phosphorus Level 2.8 MG/DL (2.5-4.9) Magnesium Level 1.8 MG/DL (1.8-2.4) Iron Level 39 ug/dL (50-175) L Total Iron Binding Capacity 177 ug/dL (250-450) L Percent Iron Saturation 22 % (15-50) Unsaturated Iron Binding 138 ug/dL (112-346) Total Bilirubin 0.4 MG/DL (0.2-1.0) Aspartate Amino Transf (AST/SGOT) 24 U/L (15-37) Alanine Aminotransferase (ALT/SGPT) 25 U/L (12-78) Alkaline Phosphatase 71 U/L (46-116) Lactate Dehydrogenase 204 U/L (81-234) C-Reactive Protein, Quantitative 22.0 mg/dL (0.00-0.90) H Total Protein 7.1 G/DL (6.4-8.2) Albumin 2.6 G/DL (3.4-5.0) L Globulin 4.5 g/dL Albumin/Globulin Ratio 0.6 (1.0-2.7) L Carcinoembryonic Antigen Pending Vitamin B12 Level 1092 PG/ML (193-986) H Folate Pending Current Medications Medications (Trade) Dose Ordered Sig/Wilner Route PRN Reason Start Time Stop Time Status Last Admin Dose Admin Acetaminophen (Tylenol) 650 mg Q4H PRN ORAL FEVER 02/15/17 22:45 03/17/17 22:44 Acetaminophen/ Hydrocodone Bitart ([place] 5/325) 1 tab Q6H PRN ORAL Moderate Pain (Pain Scale 4-6) 02/16/17 12:00 02/23/17 11:59 02/17/17 05:00 Albuterol/ Ipratropium (DuoNeb 0.5-3(2.5)mg/3ml) 3 ml Q4HRT HHN 02/16/17 11:00 02/21/17 10:59 02/17/17 15:06 Aspirin (Ecotrin) 81 mg DAILY ORAL 02/17/17 09:00 03/19/17 08:59 02/17/17 08:09 Carvedilol (Coreg) 3.125 mg Q12HR ORAL 02/16/17 12:00 03/18/17 11:59 02/17/17 08:09 Cefepime HCl 2 gm/ Dextrose 110 ml @ 220 mls/hr EVERY 12 HOURS IV 02/16/17 09:00 02/23/17 08:59 02/17/17 08:08 Dextrose (Dextrose 50%) STAT PRN IV Hypoglycemia 02/15/17 22:45 03/17/17 22:44 Heparin Sodium (Porcine) (Heparin 5000 units/ml) 5,000 units EVERY 12 HOURS SUBQ 02/16/17 09:00 03/18/17 08:59 02/16/17 20:37 Hydralazine HCl (Apresoline) 10 mg Q8H PRN IV SBP > 160 02/17/17 14:30 03/19/17 14:29 Lidocaine (Xylocaine 1% MPF 5ml) 10 ml Q4H PRN HHN cough 02/17/17 10:15 03/19/17 10:14 Lisinopril (Prinivil) 20 mg BID ORAL 02/16/17 18:00 03/18/17 17:59 02/17/17 08:09 Lorazepam (Ativan 2mg/ml 1ml) 2 mg EVERY 2 HOURS PRN IV For Anxiety 02/15/17 22:45 02/22/17 22:44 02/17/17 08:10 Methadone HCl (Methadone HCl) 5 mg EVERY 12 HOURS ORAL 02/16/17 21:00 02/23/17 20:59 02/17/17 08:10 Methylprednisolone Sodium Succinate (Solu-MEDROL) 60 mg DAILY IVP 02/18/17 09:00 03/18/17 11:59 Morphine Sulfate (Morphine Sulfate) 4 mg EVERY 4 HOURS PRN IVP Severe Pain (Pain Scale 7-10) 02/15/17 22:45 02/22/17 22:44 02/17/17 14:59 Ondansetron HCl (Zofran) 4 mg Q6H PRN IVP Nausea & Vomiting 02/15/17 22:45 03/17/17 22:44 Polyethylene Glycol (Miralax) 17 gm DAILYPRN PRN ORAL Constipation 02/15/17 22:45 03/17/17 22:44 02/17/17 04:59 Pravastatin Sodium (Pravachol) 20 mg BEDTIME ORAL 02/16/17 21:00 03/18/17 20:59 02/16/17 20:34 Pregabalin (Lyrica) 150 mg THREE TIMES A DAY ORAL 02/16/17 13:00 03/18/17 12:59 02/17/17 12:36 Promethazine HCl/ Codeine (Phenergan with Codeine) 5 ml Q4H PRN ORAL For Cough 02/16/17 10:45 03/18/17 10:44 02/17/17 06:48 Vancomycin HCl (Vanco rx to dose) 1 ea DAILY PRN MISC PER RX PROTOCOL 02/16/17 07:45 03/18/17 07:44 Vancomycin HCl (Vancomycin) 125 mg BID ORAL 02/16/17 13:00 02/23/17 12:59 02/17/17 08:11 Vancomycin HCl/ Dextrose 250 ml @ 166.667 mls/hr Q24H IVPB 02/15/17 23:30 02/20/17 23:29 02/16/17 23:10 Alyse Traylor M.D. Feb 17, 2017 16:36
--- NOTE | 2017-02-17 17:58 | Consultation ---
History of Present Illness General Chief Complaint: Dyspnea/Respdistress Reason for Consultation: PNA Present Illness HPI 76-year-old white female who presents with a chief complaint of shortness of breath. the pt has hx of anxiety and med seeking behavior. she was asking to increase ativan iv and give her morphine. Allergies: Coded Allergies: TETRACYCLINE (Unverified Allergy, Unknown, 07/24/14) Medication History Scheduled Aspirin Ec* (Aspirin Ec*), 81 MG ORAL DAILY, (Reported) Calcium Citrate/Vitamin D3 (Calcium Cit-Vit D 315-200 Tab), 2 EACH PO DAILY, ( Reported) Citalopram Hydrobromide* (Citalopram Hbr*), 10 MG ORAL DAILY, (Reported) Clonazepam* (Klonopin*), 1 MG ORAL DAILY, (Reported) Docusate Sodium* (Colace*), 200 MG ORAL DAILY, (Reported) Docusate Sodium* (Docusate Sodium*), Unknown Dose ORAL THREE TIMES A DAY, ( Reported) Ipratropium/Albuterol Sulfate (Combivent Respimat Inhal [place]), 18 MCG IH Q4HR, (Reported) Lactobacillus Combination No.4 (Probiotic), 1 EACH PO DAILY, (Reported) Lisinopril (Lisinopril*), 20 MG ORAL BID, (Reported) Potassium Chloride (Potassium Chloride), 8 MEQ PO DAILY, (Reported) Potassium Chloride (Klor-Con 8), 8 MEQ ORAL DAILY, (Reported) Pravastatin Sod* (Pravastatin Sod*), 20 MG ORAL BEDTIME, (Reported) Pregabalin (Lyrica), 225 MG ORAL TWICE A DAY, (Reported) Raloxifene Hcl* (Evista*), 60 MG ORAL DAILY, (Reported) Sennosides (Senna-Gen), 2 TAB ORAL DAILY, (Reported) Silodosin (Rapaflo), 8 MG ORAL DAILY, (Reported) Tiotropium [place]* (Spiriva*), 1 PUFF INH DAILY, (Reported) Scheduled PRN Hydrocodone Bit/Acetaminophen 5-325* ([place] 5-325*), 1 TAB ORAL Q6H PRN for For Pain, (Reported) Hydrocodone Bit/Acetaminophen 7.5-325* ([place] 7.5-325*), 1 TAB ORAL Q4H PRN for For Pain, (Reported) Ondansetron Odt* (Zofran Odt*), 8 MG ORAL Q8HR PRN for Nausea & Vomiting, ( Reported) Tramadol Hcl* (Ultram*), 50 MG ORAL Q6H PRN for For Pain, (Reported) Miscellaneous Medications Carvedilol* (Carvedilol*), 3.125 MG ORAL, (Reported) Chlorhexidine Gluconate (Chlorhexidine Gluconate), 15 ML NEISHA, (Reported) Mu-Vits-Min Th/Lycopene/Lutein (Centrum Silver Tablet), 1 EACH PO, (Reported) Ranitidine Hcl* (Zantac*), 300 MG ORAL, (Reported) Patient History Limited by: medical condition History Provided By: Patient, Medical Record, PMD Healthcare decision maker Resuscitation status Full Code Advanced Directive on File Past Medical/Surgical History Past Medical/Surgical History: (1) Troponin level elevated (2) Lumbar radiculopathy (3) Cervical spondylosis (4) Lumbar spondylosis (5) Cervical radiculopathy (6) DDD (degenerative disc disease), cervical (7) DDD (degenerative disc disease), lumbar (8) COPD exacerbation (9) Right middle lobe pneumonia (10) Hypoxia (11) COPD (chronic obstructive pulmonary disease) (12) Fibromyalgia (13) Acute and chronic respiratory failure ([id number]) (14) Pneumonia (15) History of breast cancer (16) Limited mobility (17) Osteoporosis (18) Anxiety (19) Cough (20) SOB (shortness of breath) (21) Hypercholesteremia (22) Allergic rhinitis (23) Hypertension Review of Systems Constitutional: Reports: malaise, weakness Psychiatric: Reports: prior hx, anxiety, depressed feelings, emotional problems Physical Exam Neurologic: alert, oriented x 3, responsive, depressed affect Last 24 Hour Vital Signs Date Time Temp Pulse Resp B/P (MAP) Pulse Ox O2 Delivery O2 Flow Rate FiO2 02/17/17 17:49 157/96 02/17/17 16:00 97.9 126 18 157/96 94 Nasal Cannula 2.0 02/17/17 15:29 97.5 02/17/17 15:08 110 20 100 Nasal Cannula 2.0 28 02/17/17 15:00 106 20 99 Nasal Cannula 2.0 28 02/17/17 13:35 97.5 02/17/17 12:00 97.7 126 18 165/103 93 Nasal Cannula 2.0 02/17/17 11:41 114 20 100 Nasal Cannula 2.0 28 02/17/17 11:36 120 02/17/17 11:30 110 20 99 Nasal Cannula 2.0 28 02/17/17 08:09 187/88 02/17/17 08:09 125 187/88 02/17/17 08:00 117 02/17/17 08:00 97.3 125 22 187/88 92 Nasal Cannula 4.0 02/17/17 07:25 116 20 100 Nasal Cannula 2.0 28 02/17/17 07:10 114 20 97 Nasal Cannula 2.0 28 02/17/17 06:01 97.5 02/17/17 04:00 97.5 111 24 183/105 94 Nasal Cannula 4.0 02/17/17 04:00 105 02/17/17 04:00 97.5 111 24 183/105 94 Nasal Cannula 5.0 02/17/17 03:55 105 20 98 Nasal Cannula 4.0 36 02/17/17 03:55 100 20 97 Nasal Cannula 2.0 28 02/17/17 00:54 97.0 101 22 165/89 98 Nasal Cannula 5.0 02/17/17 00:00 110 02/16/17 23:45 112 20 99 Nasal Cannula 4.0 36 02/16/17 23:30 108 20 96 Nasal Cannula 2.0 28 02/16/17 20:35 106 187/95 02/16/17 20:00 97.0 106 24 187/95 95 Nasal Cannula 5.0 02/16/17 20:00 109 02/16/17 19:30 16 95 Nasal Cannula 4.0 36 02/16/17 19:30 Nasal Cannula 4.0 36 02/16/17 19:30 Nasal Cannula 2.0 28 Intake and Output 02/17/17 02/18/17 19:00 07:00 Intake Total 110 ml Balance 110 ml IV Total 110 ml Laboratory Tests Test 02/17/17 04:45 White Blood Count 6.9 K/UL (4.8-10.8) Red Blood Count 3.20 M/UL (4.20-5.40) L Hemoglobin 10.9 G/DL (12.0-16.0) L Hematocrit 32.7 % (37.0-47.0) L Mean Corpuscular Volume 102 FL (80-99) H Mean Corpuscular Hemoglobin 34.1 PG (27.0-31.0) H Mean Corpuscular Hemoglobin Concent 33.3 G/DL (32.0-36.0) Red Cell Distribution Width 12.7 % (11.6-14.8) Platelet Count 187 K/UL (150-450) Mean Platelet Volume 7.5 FL (6.5-10.1) Neutrophils (%) (Auto) 81.7 % (45.0-75.0) H Lymphocytes (%) (Auto) 14.3 % (20.0-45.0) L Monocytes (%) (Auto) 3.7 % (1.0-10.0) Eosinophils (%) (Auto) 0.0 % (0.0-3.0) Basophils (%) (Auto) 0.2 % (0.0-2.0) Differential Total Cells Counted 100 Neutrophils % (Manual) 77 % (45-75) H Lymphocytes % (Manual) 16 % (20-45) L Monocytes % (Manual) 4 % (1-10) Eosinophils % (Manual) 0 % (0-3) Basophils % (Manual) 0 % (0-2) Band Neutrophils 3 % (0-8) Platelet Estimate Adequate Platelet Morphology Normal Macrocytosis 1+ Erythrocyte Sedimentation Rate 110 MM/HR (0-30) H Reticulocyte Count 1.4 % (0.0-2.0) Prothrombin Time 9.8 SEC (9.30-11.50) Prothromb Time International Ratio 0.9 (0.9-1.1) Activated Partial Thromboplast Time 32 SEC (23-33) Sodium Level 135 MMOL/L (136-145) L Potassium Level 4.0 MMOL/L (3.5-5.1) Chloride Level 100 MMOL/L (98-107) Carbon Dioxide Level 24 MMOL/L (21-32) Anion Gap 11 (5-15) Blood Urea Nitrogen 22 mg/dL (7-18) H Creatinine 0.7 MG/DL (0.55-1.30) Estimat Glomerular Filtration Rate mL/min (>60) Glucose Level 148 MG/DL (74-106) H Calcium Level 9.6 MG/DL (8.5-10.1) Phosphorus Level 2.8 MG/DL (2.5-4.9) Magnesium Level 1.8 MG/DL (1.8-2.4) Iron Level 39 ug/dL (50-175) L Total Iron Binding Capacity 177 ug/dL (250-450) L Percent Iron Saturation 22 % (15-50) Unsaturated Iron Binding 138 ug/dL (112-346) Total Bilirubin 0.4 MG/DL (0.2-1.0) Aspartate Amino Transf (AST/SGOT) 24 U/L (15-37) Alanine Aminotransferase (ALT/SGPT) 25 U/L (12-78) Alkaline Phosphatase 71 U/L (46-116) Lactate Dehydrogenase 204 U/L (81-234) C-Reactive Protein, Quantitative 22.0 mg/dL (0.00-0.90) H Total Protein 7.1 G/DL (6.4-8.2) Albumin 2.6 G/DL (3.4-5.0) L Globulin 4.5 g/dL Albumin/Globulin Ratio 0.6 (1.0-2.7) L Carcinoembryonic Antigen Pending Vitamin B12 Level 1092 PG/ML (193-986) H Folate Pending Height (Feet): 5 Height (Inches): 7.00 Weight (Pounds): 123 Medications Current Medications Medications (Trade) Dose Ordered Sig/Wilner Route PRN Reason Start Time Stop Time Status Last Admin Dose Admin Acetaminophen (Tylenol) 650 mg Q4H PRN ORAL FEVER 02/15/17 22:45 03/17/17 22:44 Acetaminophen/ Hydrocodone Bitart ([place] 5/325) 1 tab Q6H PRN ORAL Moderate Pain (Pain Scale 4-6) 02/16/17 12:00 02/23/17 11:59 02/17/17 05:00 Albuterol/ Ipratropium (DuoNeb 0.5-3(2.5)mg/3ml) 3 ml Q4HRT HHN 02/16/17 11:00 02/21/17 10:59 02/17/17 15:06 Amlodipine Besylate (Norvasc) 2.5 mg BIDPRN PRN ORAL sbp greater than 160 02/17/17 16:45 03/19/17 16:44 Aspirin (Ecotrin) 81 mg DAILY ORAL 02/17/17 09:00 03/19/17 08:59 02/17/17 08:09 Carvedilol (Coreg) 3.125 mg Q12HR ORAL 02/16/17 12:00 03/18/17 11:59 02/17/17 08:09 Cefepime HCl 2 gm/ Dextrose 110 ml @ 220 mls/hr EVERY 12 HOURS IV 02/16/17 09:00 02/23/17 08:59 02/17/17 08:08 Dextrose (Dextrose 50%) STAT PRN IV Hypoglycemia 02/15/17 22:45 03/17/17 22:44 Heparin Sodium (Porcine) (Heparin 5000 units/ml) 5,000 units EVERY 12 HOURS SUBQ 02/16/17 09:00 03/18/17 08:59 02/16/17 20:37 Hydralazine HCl (Apresoline) 10 mg Q8H PRN IV SBP > 160, SECOND LINE [employer]ENT 02/17/17 17:00 03/19/17 14:29 Lidocaine (Xylocaine 1% MPF 5ml) 10 ml Q4H PRN HHN cough 02/17/17 10:15 03/19/17 10:14 Lisinopril (Prinivil) 20 mg BID ORAL 02/16/17 18:00 03/18/17 17:59 02/17/17 17:49 Lorazepam (Ativan 2mg/ml 1ml) 2 mg EVERY 2 HOURS PRN IV For Anxiety 02/15/17 22:45 02/22/17 22:44 02/17/17 08:10 Methadone HCl (Methadone HCl) 5 mg EVERY 12 HOURS ORAL 02/16/17 21:00 02/23/17 20:59 02/17/17 08:10 Methylprednisolone Sodium Succinate (Solu-MEDROL) 60 mg DAILY IVP 02/18/17 09:00 03/18/17 11:59 Morphine Sulfate (Morphine Sulfate) 4 mg EVERY 4 HOURS PRN IVP Severe Pain (Pain Scale 7-10) 02/15/17 22:45 02/22/17 22:44 02/17/17 14:59 Ondansetron HCl (Zofran) 4 mg Q6H PRN IVP Nausea & Vomiting 02/15/17 22:45 03/17/17 22:44 Polyethylene Glycol (Miralax) 17 gm DAILYPRN PRN ORAL Constipation 02/15/17 22:45 03/17/17 22:44 02/17/17 04:59 Pravastatin Sodium (Pravachol) 20 mg BEDTIME ORAL 02/16/17 21:00 03/18/17 20:59 02/16/17 20:34 Pregabalin (Lyrica) 150 mg THREE TIMES A DAY ORAL 02/16/17 13:00 03/18/17 12:59 02/17/17 17:49 Promethazine HCl/ Codeine (Phenergan with Codeine) 5 ml Q4H PRN ORAL For Cough 02/16/17 10:45 03/18/17 10:44 02/17/17 17:49 Vancomycin HCl (Vanco rx to dose) 1 ea DAILY PRN MISC PER RX PROTOCOL 02/16/17 07:45 03/18/17 07:44 Vancomycin HCl (Vancomycin) 125 mg BID ORAL 02/16/17 13:00 02/23/17 12:59 02/17/17 17:49 Vancomycin HCl/ Dextrose 250 ml @ 166.667 mls/hr Q24H IVPB 02/15/17 23:30 02/20/17 23:29 02/16/17 23:10 Assessment/Plan Status: not improved Assessment/Plan anxiety d/o mdd med seeking behavior - lexapro 10mg -rec to change short acting pain meds to long acting Wan Stern M.D. Feb 17, 2017 17:58
[2017-02-17 20:00] VITALS: BP 138/85
[2017-02-17] MEDS: Vancomycin 1250mg/D5W 250ml IVPB SCH (23:52)
[2017-02-18] VITALS: BP 152/94
[2017-02-18] MEDS: Morphine Sulfate 4mg/ml Inj IVP PRN ×2 (02:44→23:41)
[2017-02-18] MEDS: Promethazine/Codeine 5ml UD ORAL PRN ×2 (02:44→09:07)
[2017-02-18] MEDS: Albuterol/Ipratropium 3ml neb HHN SCH ×6 (03:55→23:38)
[2017-02-18 04:44] LABS: BASOPHILS % (AUTO) 0.5 % (0.0-2.0); EOSINOPHILS % (AUTO) 0.1 % (0.0-3.0); HEMATOCRIT 32.2 % (37.0-47.0); HEMOGLOBIN 10.6 G/DL (12.0-16.0); LYMPHOCYTES % (AUTO) 13.9 % (20.0-45.0); MEAN CORPUSCULAR VOLUME 103 FL (80-99); MONOCYTES % (AUTO) 6.9 % (1.0-10.0); NEUTROPHILS % (AUTO) 78.6 % (45.0-75.0); PLATELET COUNT 197 K/UL (150-450); RED BLOOD COUNT 3.13 M/UL (4.20-5.40); RED CELL DISTRIBUTION WIDTH 12.5 % (11.6-14.8); WHITE BLOOD COUNT 12.8 K/UL (4.8-10.8)
[2017-02-18 05:18] LABS: ANION GAP 9 (5-15); BLOOD UREA NITROGEN 20 mg/dL (7-18); CARBON DIOXIDE 24 MMOL/L (21-32); CHLORIDE 99 MMOL/L (98-107); CREATININE 0.8 MG/DL (0.55-1.30); POTASSIUM 3.6 MMOL/L (3.5-5.1); SODIUM 132 MMOL/L (136-145)
[2017-02-18 05:23] LABS: CALCIUM 8.8 MG/DL (8.5-10.1)
[2017-02-18 08:00] VITALS: BP 134/81
[2017-02-18] MEDS: Solu-MEDROL 125mg Inj IVP SCH (09:04)
[2017-02-18] MEDS: Aspirin EC 81mg tab ORAL SCH (09:04)
[2017-02-18] MEDS: Lisinopril 20mg tab ORAL SCH ×2 (09:04→17:58)
[2017-02-18] MEDS: Vancomycin oral 125mg/2.5ml ORAL SCH ×2 (09:05→17:58)
[2017-02-18] MEDS: Lyrica 75mg cap ORAL SCH ×3 (09:06→17:57)
[2017-02-18] MEDS: Heparin 5000 units/ml inj SUBQ SCH ×2 (09:10→20:23)
[2017-02-18] MEDS: Cefepime HCl 2 GM in D5W 110 ML IV SCH (09:11)
--- NOTE | 2017-02-18 10:33 | Infectious Diseases Prog Note ---
Assessment/Plan Assessment/Plan Abx: IV Vanco/Cefepime 02/15- Assesment: Acute hypoxic resp failure, - combination of COPD exacerbation and PNA; worsening PNA; worsening- r/o MDRO, r/o fungal pnuemonia CXR 02/18: Increasing consolidation in the right mid and lower lung, over one day. Possibly improving consolidation and/or pleural fluid on the left -CXR 02/17: There is somewhat decreased but persistent and still extensive consolidation in the right mid and lower lung. Consolidation, atelectasis, and pleural fluid at the left lung base persists and are probably unchanged, -CXR: Limited evaluation due to significant degree of soft tissue attenuation. Suspect pneumonia at the right lung base. Leukocytosis, mild (on steroids) Afebrile COPD on home O2 Hx of Cdiff DM2 Chronic abd pain hx of MRSA bacteremia 07/2015 fibromyalgia, HTN, HLD, R breast cancer,Tobacco abuse (stopped 4 years ago), Anxiety, AOCD Plan: -Switch Cefepime to Meropenem (abx d#4) given worsenign resp stqatus -Continue IV Vancomycin #4 -obtain sputum cx -Check Cocci ab and Cr Ag serum -continue prophylatic PO Vancomycin #3 given prior hx of Cdiff and current abx treatment (continue while on abx) -F/u cultures -Monitor CBC/BMP, temperatures -Aspiration precautions Thank you for this consultation. Will continue to follow along with you. Discussed with RN. Subjective Allergies: Coded Allergies: TETRACYCLINE (Unverified Allergy, Unknown, 07/24/14) Subjective afebrile, VSS worsenign resp status, desaturated, placed on NRB worsenign leukocytosis CXR with worsenign infiltrates Objective Vital Signs Last 24 Hour Vital Signs Date Time Temp Pulse Resp B/P (MAP) Pulse Ox O2 Delivery O2 Flow Rate FiO2 02/18/17 10:20 109 20 88 Nasal Cannula 2.0 02/18/17 09:04 134/81 02/18/17 09:04 118 134/81 02/18/17 08:00 97.3 118 18 134/81 91 Nasal Cannula 3.0 02/18/17 06:48 107 18 97 Nasal Cannula 2.0 02/18/17 06:44 101 18 92 Nasal Cannula 2.0 02/18/17 04:00 97.6 100 19 88 Nasal Cannula 2.0 02/18/17 04:00 95 02/18/17 03:59 109 18 100 Nasal Cannula 2.0 28 02/18/17 03:55 98 18 97 Nasal Cannula 2.0 28 02/18/17 00:13 Nasal Cannula 02/18/17 00:13 Nasal Cannula 02/18/17 00:00 111 02/18/17 00:00 97.0 112 28 152/94 95 Nasal Cannula 2.0 02/17/17 20:30 109 157/96 02/17/17 20:00 96.1 117 24 138/85 93 Nasal Cannula 2.0 02/17/17 20:00 115 02/17/17 19:52 109 18 100 Nasal Cannula 2.0 28 02/17/17 19:51 105 18 99 Nasal Cannula 2.0 28 02/17/17 18:48 97.9 02/17/17 17:49 157/96 02/17/17 16:00 122 02/17/17 16:00 97.9 126 18 157/96 94 Nasal Cannula 2.0 02/17/17 15:29 97.5 02/17/17 15:08 110 20 100 Nasal Cannula 2.0 28 02/17/17 15:00 106 20 99 Nasal Cannula 2.0 28 02/17/17 12:00 97.7 126 18 165/103 93 Nasal Cannula 2.0 02/17/17 11:41 114 20 100 Nasal Cannula 2.0 28 02/17/17 11:36 120 02/17/17 11:30 110 20 99 Nasal Cannula 2.0 28 Height (Feet): 5 Height (Inches): 7.00 Weight (Pounds): 123 Objective General Appearance: lethargic, NRB mask HEENT: PERRL, no oral lesions, atraumatic head Neck: supple Respiratory: scattered wheezing Cardiovascular: regular rate, rhythmm, no murmurs Gastrointestinal: normal inspection, non tender, no mass, non-distended Musculoskeletal: back normal, normal range of motion Skin: no lesions or rashes Microbiology Date/Time Source Procedure Growth Status 02/15/17 19:30 Blood Blood Culture - Preliminary NO GROWTH AFTER 48 HOURS Resulted 02/15/17 19:20 Blood Blood Culture - Preliminary NO GROWTH AFTER 48 HOURS Resulted Laboratory Tests Test 02/18/17 03:55 White Blood Count 12.8 K/UL (4.8-10.8) #H Red Blood Count 3.13 M/UL (4.20-5.40) L Hemoglobin 10.6 G/DL (12.0-16.0) L Hematocrit 32.2 % (37.0-47.0) L Mean Corpuscular Volume 103 FL (80-99) H Mean Corpuscular Hemoglobin 33.7 PG (27.0-31.0) H Mean Corpuscular Hemoglobin Concent 32.8 G/DL (32.0-36.0) Red Cell Distribution Width 12.5 % (11.6-14.8) Platelet Count 197 K/UL (150-450) Mean Platelet Volume 7.7 FL (6.5-10.1) Neutrophils (%) (Auto) 78.6 % (45.0-75.0) H Lymphocytes (%) (Auto) 13.9 % (20.0-45.0) L Monocytes (%) (Auto) 6.9 % (1.0-10.0) Eosinophils (%) (Auto) 0.1 % (0.0-3.0) Basophils (%) (Auto) 0.5 % (0.0-2.0) Sodium Level 132 MMOL/L (136-145) L Potassium Level 3.6 MMOL/L (3.5-5.1) Chloride Level 99 MMOL/L (98-107) Carbon Dioxide Level 24 MMOL/L (21-32) Anion Gap 9 (5-15) Blood Urea Nitrogen 20 mg/dL (7-18) H Creatinine 0.8 MG/DL (0.55-1.30) Estimat Glomerular Filtration Rate mL/min (>60) Glucose Level 128 MG/DL (74-106) H Calcium Level 8.8 MG/DL (8.5-10.1) Current Medications Medications (Trade) Dose Ordered Sig/Wilner Route PRN Reason Start Time Stop Time Status Last Admin Dose Admin Acetaminophen (Tylenol) 650 mg Q4H PRN ORAL FEVER 02/15/17 22:45 03/17/17 22:44 Acetaminophen/ Hydrocodone Bitart ([place] 5/325) 1 tab Q6H PRN ORAL Moderate Pain (Pain Scale 4-6) 02/16/17 12:00 02/23/17 11:59 02/17/17 05:00 Albuterol/ Ipratropium (DuoNeb 0.5-3(2.5)mg/3ml) 3 ml Q4HRT HHN 02/16/17 11:00 02/21/17 10:59 02/18/17 10:20 Amlodipine Besylate (Norvasc) 2.5 mg BIDPRN PRN ORAL sbp greater than 160 02/17/17 16:45 03/19/17 16:44 Aspirin (Ecotrin) 81 mg DAILY ORAL 02/17/17 09:00 03/19/17 08:59 02/18/17 09:04 Carvedilol (Coreg) 3.125 mg Q12HR ORAL 02/16/17 12:00 03/18/17 11:59 02/18/17 09:04 Cefepime HCl 2 gm/ Dextrose 110 ml @ 220 mls/hr EVERY 12 HOURS IV 02/16/17 09:00 02/23/17 08:59 02/18/17 09:11 Dextrose (Dextrose 50%) STAT PRN IV Hypoglycemia 02/15/17 22:45 03/17/17 22:44 Escitalopram Oxalate (Lexapro) 10 mg DAILY ORAL 02/18/17 09:00 03/20/17 08:59 02/18/17 09:07 Heparin Sodium (Porcine) (Heparin 5000 units/ml) 5,000 units EVERY 12 HOURS SUBQ 02/16/17 09:00 03/18/17 08:59 02/18/17 09:10 Hydralazine HCl (Apresoline) 10 mg Q8H PRN IV SBP > 160, SECOND LINE AGENT 02/17/17 17:00 03/19/17 14:29 Lidocaine (Xylocaine 1% MPF 5ml) 10 ml Q4H PRN HHN cough 02/17/17 10:15 03/19/17 10:14 Lisinopril (Prinivil) 20 mg BID ORAL 02/16/17 18:00 03/18/17 17:59 02/18/17 09:04 Lorazepam (Ativan 2mg/ml 1ml) 2 mg EVERY 2 HOURS PRN IV For Anxiety 02/15/17 22:45 02/22/17 22:44 02/17/17 08:10 Methadone HCl (Methadone HCl) 5 mg EVERY 12 HOURS ORAL 02/16/17 21:00 02/23/17 20:59 02/18/17 09:07 Methylprednisolone Sodium Succinate (Solu-MEDROL) 60 mg DAILY IVP 02/18/17 09:00 03/18/17 11:59 02/18/17 09:04 Morphine Sulfate (Morphine Sulfate) 4 mg EVERY 4 HOURS PRN IVP Severe Pain (Pain Scale 7-10) 02/15/17 22:45 02/22/17 22:44 02/18/17 02:44 Ondansetron HCl (Zofran) 4 mg Q6H PRN IVP Nausea & Vomiting 02/15/17 22:45 03/17/17 22:44 Polyethylene Glycol (Miralax) 17 gm DAILYPRN PRN ORAL Constipation 02/15/17 22:45 03/17/17 22:44 02/17/17 04:59 Pravastatin Sodium (Pravachol) 20 mg BEDTIME ORAL 02/16/17 21:00 03/18/17 20:59 02/17/17 20:16 Pregabalin (Lyrica) 150 mg THREE TIMES A DAY ORAL 02/16/17 13:00 03/18/17 12:59 02/18/17 09:06 Promethazine HCl/ Codeine (Phenergan with Codeine) 5 ml Q4H PRN ORAL For Cough 02/16/17 10:45 03/18/17 10:44 02/18/17 09:07 Vancomycin HCl (Vanco rx to dose) 1 ea DAILY PRN MISC PER RX PROTOCOL 02/16/17 07:45 03/18/17 07:44 Vancomycin HCl (Vancomycin) 125 mg BID ORAL 02/16/17 13:00 02/23/17 12:59 02/18/17 09:05 Vancomycin HCl/ Dextrose 250 ml @ 166.667 mls/hr Q24H IVPB 02/15/17 23:30 02/20/17 23:29 02/17/17 23:52 Alyse Traylor M.D. Feb 18, 2017 10:33
--- NOTE | 2017-02-18 11:34 | Pulmonology Progress Note ---
Assessment/Plan Problems: (1) Acute and chronic respiratory failure ([id number]) (2) COPD exacerbation (3) Pneumonia (4) Fibromyalgia (5) History of breast cancer (6) Limited mobility Assessment/Plan cxr this morning shows still lots of infitlrate trial of lidocain inhalation chest PT keep same dose steroids keep in CAYETANO check sputum consult reviewed. might need BIPAP or intubation for short term. Subjective ROS Limited/Unobtainable: No Constitutional: Reports: no symptoms HEENT: Repors: no symptoms Respiratory: Reports: no symptoms Cardiovascular: Reports: no symptoms Allergies: Coded Allergies: TETRACYCLINE (Unverified Allergy, Unknown, 07/24/14) Objective Last 24 Hour Vital Signs Date Time Temp Pulse Resp B/P (MAP) Pulse Ox O2 Delivery O2 Flow Rate FiO2 02/18/17 10:25 106 18 92 Nasal Cannula 3.0 32 02/18/17 10:20 109 20 88 Nasal Cannula 2.0 28 02/18/17 09:04 134/81 02/18/17 09:04 118 134/81 02/18/17 08:00 97.3 118 18 134/81 91 Nasal Cannula 3.0 02/18/17 06:48 107 18 97 Nasal Cannula 2.0 28 02/18/17 06:44 101 18 92 Nasal Cannula 2.0 28 02/18/17 04:00 97.6 100 19 88 Nasal Cannula 2.0 02/18/17 04:00 95 02/18/17 03:59 109 18 100 Nasal Cannula 2.0 28 02/18/17 03:55 98 18 97 Nasal Cannula 2.0 28 02/18/17 00:13 Nasal Cannula 02/18/17 00:13 Nasal Cannula 02/18/17 00:00 111 02/18/17 00:00 97.0 112 28 152/94 95 Nasal Cannula 2.0 02/17/17 20:30 109 157/96 02/17/17 20:00 96.1 117 24 138/85 93 Nasal Cannula 2.0 02/17/17 20:00 115 02/17/17 19:52 109 18 100 Nasal Cannula 2.0 28 02/17/17 19:51 105 18 99 Nasal Cannula 2.0 28 02/17/17 18:48 97.9 02/17/17 17:49 157/96 02/17/17 16:00 122 02/17/17 16:00 97.9 126 18 157/96 94 Nasal Cannula 2.0 02/17/17 15:29 97.5 02/17/17 15:08 110 20 100 Nasal Cannula 2.0 28 02/17/17 15:00 106 20 99 Nasal Cannula 2.0 28 02/17/17 12:00 97.7 126 18 165/103 93 Nasal Cannula 2.0 02/17/17 11:41 114 20 100 Nasal Cannula 2.0 28 02/17/17 11:36 120 Intake and Output 02/18/17 02/19/17 19:00 07:00 Intake Total 100 ml Balance 100 ml Intake Oral 100 ml Objective still dyspnic, with spells of cough HEENT: normocephalic, atraumatic Respiratory/Chest: chest wall non-tender, lungs clear Breasts: no masses Cardiovascular: normal peripheral pulses Abdomen: normal bowel sounds, soft, non tender Genitourinary: normal external genitalia Extremities: no cyanosis Skin: no rash, no lesions Neurologic/Psychiatric: 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 grossly normal, no motor/sensory deficits, abnormal gait Microbiology Date/Time Source Procedure Growth Status 02/15/17 19:30 Blood Blood Culture - Preliminary NO GROWTH AFTER 48 HOURS Resulted 02/15/17 19:20 Blood Blood Culture - Preliminary NO GROWTH AFTER 48 HOURS Resulted Laboratory Tests 02/18/17 03:55: White Blood Count 12.8#H, Red Blood Count 3.13L, Hemoglobin 10.6L, Hematocrit 32.2L, Mean Corpuscular Volume 103H, Mean Corpuscular Hemoglobin 33.7H, Mean Corpuscular Hemoglobin Concent 32.8, Red Cell Distribution Width 12.5, Platelet Count 197, Mean Platelet Volume 7.7, Neutrophils (%) (Auto) 78.6H, Lymphocytes ( %) (Auto) 13.9L, Monocytes (%) (Auto) 6.9, Eosinophils (%) (Auto) 0.1, Basophils (%) (Auto) 0.5, Sodium Level 132L, Potassium Level 3.6, Chloride Level 99, Carbon Dioxide Level 24, Anion Gap 9, Blood Urea Nitrogen 20H, Creatinine 0.8, Estimat Glomerular Filtration Rate , Glucose Level 128H, Calcium Level 8.8 02/18/17 10:40: Arterial Blood pH 7.412, Arterial Blood Partial Pressure CO2 46.2H, Arterial Blood Partial Pressure O2 64.0L, Arterial Blood HCO3 28.8H, Arterial Blood Oxygen Saturation 85.6L, Arterial Blood Base Excess 3.6, Scooby Test Positive Current Medications Medications (Trade) Dose Ordered Sig/Wilner Route PRN Reason Start Time Stop Time Status Last Admin Dose Admin Acetaminophen (Tylenol) 650 mg Q4H PRN ORAL FEVER 02/15/17 22:45 03/17/17 22:44 Acetaminophen/ Hydrocodone Bitart ([place] 5/325) 1 tab Q6H PRN ORAL Moderate Pain (Pain Scale 4-6) 02/16/17 12:00 02/23/17 11:59 02/17/17 05:00 Albuterol/ Ipratropium (DuoNeb 0.5-3(2.5)mg/3ml) 3 ml Q4HRT HHN 02/16/17 11:00 02/21/17 10:59 02/18/17 10:20 Amlodipine Besylate (Norvasc) 2.5 mg BIDPRN PRN ORAL sbp greater than 160 02/17/17 16:45 03/19/17 16:44 Aspirin (Ecotrin) 81 mg DAILY ORAL 02/17/17 09:00 03/19/17 08:59 02/18/17 09:04 Carvedilol (Coreg) 3.125 mg Q12HR ORAL 02/16/17 12:00 03/18/17 11:59 02/18/17 09:04 Cefepime HCl 2 gm/ Dextrose 110 ml @ 220 mls/hr EVERY 12 HOURS IV 02/16/17 09:00 02/23/17 08:59 02/18/17 09:11 Dextrose (Dextrose 50%) STAT PRN IV Hypoglycemia 02/15/17 22:45 03/17/17 22:44 Escitalopram Oxalate (Lexapro) 10 mg DAILY ORAL 02/18/17 09:00 03/20/17 08:59 02/18/17 09:07 Heparin Sodium (Porcine) (Heparin 5000 units/ml) 5,000 units EVERY 12 HOURS SUBQ 02/16/17 09:00 03/18/17 08:59 02/18/17 09:10 Hydralazine HCl (Apresoline) 10 mg Q8H PRN IV SBP > 160, SECOND LINE AGENT 02/17/17 17:00 03/19/17 14:29 Lidocaine (Xylocaine 1% MPF 5ml) 10 ml Q4H PRN HHN cough 02/17/17 10:15 03/19/17 10:14 Lisinopril (Prinivil) 20 mg BID ORAL 02/16/17 18:00 03/18/17 17:59 02/18/17 09:04 Lorazepam (Ativan 2mg/ml 1ml) 2 mg EVERY 2 HOURS PRN IV For Anxiety 02/15/17 22:45 02/22/17 22:44 02/17/17 08:10 Methadone HCl (Methadone HCl) 5 mg EVERY 12 HOURS ORAL 02/16/17 21:00 02/23/17 20:59 02/18/17 09:07 Methylprednisolone Sodium Succinate (Solu-MEDROL) 60 mg DAILY IVP 02/18/17 09:00 03/18/17 11:59 02/18/17 09:04 Morphine Sulfate (Morphine Sulfate) 4 mg EVERY 4 HOURS PRN IVP Severe Pain (Pain Scale 7-10) 02/15/17 22:45 02/22/17 22:44 02/18/17 02:44 Ondansetron HCl (Zofran) 4 mg Q6H PRN IVP Nausea & Vomiting 02/15/17 22:45 03/17/17 22:44 Polyethylene Glycol (Miralax) 17 gm DAILYPRN PRN ORAL Constipation 02/15/17 22:45 03/17/17 22:44 02/17/17 04:59 Pravastatin Sodium (Pravachol) 20 mg BEDTIME ORAL 02/16/17 21:00 03/18/17 20:59 02/17/17 20:16 Pregabalin (Lyrica) 150 mg THREE TIMES A DAY ORAL 02/16/17 13:00 03/18/17 12:59 02/18/17 09:06 Promethazine HCl/ Codeine (Phenergan with Codeine) 5 ml Q4H PRN ORAL For Cough 02/16/17 10:45 03/18/17 10:44 02/18/17 09:07 Vancomycin HCl (Vanco rx to dose) 1 ea DAILY PRN MISC PER RX PROTOCOL 02/16/17 07:45 03/18/17 07:44 Vancomycin HCl (Vancomycin) 125 mg BID ORAL 02/16/17 13:00 02/23/17 12:59 02/18/17 09:05 Vancomycin HCl/ Dextrose 250 ml @ 166.667 mls/hr Q24H IVPB 02/15/17 23:30 02/20/17 23:29 02/17/17 23:52 TWIN FONTANEZ Feb 18, 2017 11:34
--- NOTE | 2017-02-18 11:45 | Internal Med Progress Note ---
Subjective Date of Service: Feb 18, 2017 Physician Name Zeb Fuentes Attending Physician Jun Cedillo MD Current Medications Medications (Trade) Dose Ordered Sig/Wilner Route PRN Reason Start Time Stop Time Status Last Admin Dose Admin Acetaminophen (Tylenol) 650 mg Q4H PRN ORAL FEVER 02/15/17 22:45 03/17/17 22:44 Acetaminophen/ Hydrocodone Bitart ([place] 5/325) 1 tab Q6H PRN ORAL Moderate Pain (Pain Scale 4-6) 02/16/17 12:00 02/23/17 11:59 02/17/17 05:00 Albuterol/ Ipratropium (DuoNeb 0.5-3(2.5)mg/3ml) 3 ml Q4HRT HHN 02/16/17 11:00 02/21/17 10:59 02/18/17 10:20 Amlodipine Besylate (Norvasc) 2.5 mg BIDPRN PRN ORAL sbp greater than 160 02/17/17 16:45 03/19/17 16:44 Aspirin (Ecotrin) 81 mg DAILY ORAL 02/17/17 09:00 03/19/17 08:59 02/18/17 09:04 Carvedilol (Coreg) 3.125 mg Q12HR ORAL 02/16/17 12:00 03/18/17 11:59 02/18/17 09:04 Cefepime HCl 2 gm/ Dextrose 110 ml @ 220 mls/hr EVERY 12 HOURS IV 02/16/17 09:00 02/23/17 08:59 02/18/17 09:11 Dextrose (Dextrose 50%) STAT PRN IV Hypoglycemia 02/15/17 22:45 03/17/17 22:44 Escitalopram Oxalate (Lexapro) 10 mg DAILY ORAL 02/18/17 09:00 03/20/17 08:59 02/18/17 09:07 Furosemide (Lasix) 20 mg ONCE ONCE IV 02/18/17 11:45 02/18/17 11:46 UNV Heparin Sodium (Porcine) (Heparin 5000 units/ml) 5,000 units EVERY 12 HOURS SUBQ 02/16/17 09:00 03/18/17 08:59 02/18/17 09:10 Hydralazine HCl (Apresoline) 10 mg Q8H PRN IV SBP > 160, SECOND LINE AGENT 02/17/17 17:00 03/19/17 14:29 Lidocaine (Xylocaine 1% MPF 5ml) 10 ml Q4H PRN HHN cough 02/17/17 10:15 03/19/17 10:14 Lisinopril (Prinivil) 20 mg BID ORAL 02/16/17 18:00 03/18/17 17:59 02/18/17 09:04 Lorazepam (Ativan 2mg/ml 1ml) 2 mg EVERY 2 HOURS PRN IV For Anxiety 02/15/17 22:45 02/22/17 22:44 02/17/17 08:10 Methadone HCl (Methadone HCl) 5 mg EVERY 12 HOURS ORAL 02/16/17 21:00 02/23/17 20:59 02/18/17 09:07 Methylprednisolone Sodium Succinate (Solu-MEDROL) 60 mg DAILY IVP 02/18/17 09:00 03/18/17 11:59 02/18/17 09:04 Morphine Sulfate (Morphine Sulfate) 4 mg EVERY 4 HOURS PRN IVP Severe Pain (Pain Scale 7-10) 02/15/17 22:45 02/22/17 22:44 02/18/17 02:44 Ondansetron HCl (Zofran) 4 mg Q6H PRN IVP Nausea & Vomiting 02/15/17 22:45 03/17/17 22:44 Polyethylene Glycol (Miralax) 17 gm DAILYPRN PRN ORAL Constipation 02/15/17 22:45 03/17/17 22:44 02/17/17 04:59 Pravastatin Sodium (Pravachol) 20 mg BEDTIME ORAL 02/16/17 21:00 03/18/17 20:59 02/17/17 20:16 Pregabalin (Lyrica) 150 mg THREE TIMES A DAY ORAL 02/16/17 13:00 03/18/17 12:59 02/18/17 09:06 Promethazine HCl/ Codeine (Phenergan with Codeine) 5 ml Q4H PRN ORAL For Cough 02/16/17 10:45 03/18/17 10:44 02/18/17 09:07 Vancomycin HCl (Vanco rx to dose) 1 ea DAILY PRN MISC PER RX PROTOCOL 02/16/17 07:45 03/18/17 07:44 Vancomycin HCl (Vancomycin) 125 mg BID ORAL 02/16/17 13:00 02/23/17 12:59 02/18/17 09:05 Vancomycin HCl/ Dextrose 250 ml @ 166.667 mls/hr Q24H IVPB 02/15/17 23:30 02/20/17 23:29 02/17/17 23:52 Allergies: Coded Allergies: TETRACYCLINE (Unverified Allergy, Unknown, 07/24/14) ROS Limited/Unobtainable: No Constitutional: Reports: no symptoms HEENT: Reports: no symptoms Cardiovascular: Reports: no symptoms Respiratory: Reports: cough, shortness of breath Gastrointestinal/Abdominal: Reports: no symptoms Genitourinary: Reports: no symptoms Neurologic/Psychiatric: Reports: no symptoms Subjective 76 YO F admitted with shortness of breath. Now pneumonia. Cover for Int Med- Dr Cedillo. CAYETANO. Await video swallow eval Objective Last Vital Signs Date Time Temp Pulse Resp B/P (MAP) Pulse Ox O2 Delivery O2 Flow Rate FiO2 02/18/17 10:25 106 18 92 Nasal Cannula 3.0 32 02/18/17 09:04 134/81 02/18/17 08:00 97.3 Laboratory Tests Test 02/18/17 03:55 02/18/17 10:40 White Blood Count 12.8 K/UL (4.8-10.8) #H Red Blood Count 3.13 M/UL (4.20-5.40) L Hemoglobin 10.6 G/DL (12.0-16.0) L Hematocrit 32.2 % (37.0-47.0) L Mean Corpuscular Volume 103 FL (80-99) H Mean Corpuscular Hemoglobin 33.7 PG (27.0-31.0) H Mean Corpuscular Hemoglobin Concent 32.8 G/DL (32.0-36.0) Red Cell Distribution Width 12.5 % (11.6-14.8) Platelet Count 197 K/UL (150-450) Mean Platelet Volume 7.7 FL (6.5-10.1) Neutrophils (%) (Auto) 78.6 % (45.0-75.0) H Lymphocytes (%) (Auto) 13.9 % (20.0-45.0) L Monocytes (%) (Auto) 6.9 % (1.0-10.0) Eosinophils (%) (Auto) 0.1 % (0.0-3.0) Basophils (%) (Auto) 0.5 % (0.0-2.0) Sodium Level 132 MMOL/L (136-145) L Potassium Level 3.6 MMOL/L (3.5-5.1) Chloride Level 99 MMOL/L (98-107) Carbon Dioxide Level 24 MMOL/L (21-32) Anion Gap 9 (5-15) Blood Urea Nitrogen 20 mg/dL (7-18) H Creatinine 0.8 MG/DL (0.55-1.30) Estimat Glomerular Filtration Rate mL/min (>60) Glucose Level 128 MG/DL (74-106) H Calcium Level 8.8 MG/DL (8.5-10.1) Arterial Blood pH 7.412 (7.350-7.450) Arterial Blood Partial Pressure CO2 46.2 mmHg (35.0-45.0) H Arterial Blood Partial Pressure O2 64.0 mmHg (75.0-100.0) L Arterial Blood HCO3 28.8 mmol/L (22.0-26.0) H Arterial Blood Oxygen Saturation 85.6 % (92.0-98.0) L Arterial Blood Base Excess 3.6 Scooby Test Positive Microbiology Date/Time Source Procedure Growth Status 02/15/17 19:30 Blood Blood Culture - Preliminary NO GROWTH AFTER 48 HOURS Resulted 02/15/17 19:20 Blood Blood Culture - Preliminary NO GROWTH AFTER 48 HOURS Resulted Intake and Output 02/18/17 02/19/17 19:00 07:00 Intake Total 100 ml Balance 100 ml Intake Oral 100 ml Objective General Appearance: WD/WN, no apparent distress, alert EENT: PERRL/EOMI, normal ENT inspection, TMs normal Neck: non-tender, normal alignment, supple, normal inspection Cardiovascular: normal peripheral pulses, normal rate, regular rhythm, no gallop/murmur, no JVD Respiratory/Chest: chest wall non-tender, respiratory distress, decreased breath sounds, crackles/rales, rhonchi - bilaterally, expiratory wheezing Abdomen: normal bowel sounds, non tender, soft, no organomegaly, no mass Extremities: normal range of motion Neurologic: land department head II-XII grossly normal, no motor/sensory deficits Skin: normal pigmentation, warm/dry Assessment/Plan Problem List: (1) Allergic rhinitis (2) Hypertension Assessment & Plan: Continue lisinopril and hydralazine (3) Hypercholesteremia Assessment & Plan: Continue pravachol (4) Osteoporosis (5) Anxiety (6) Cough (7) SOB (shortness of breath) Assessment & Plan: Due to pneumonia and COPD (8) Pneumonia Assessment & Plan: Continue vancomycin and cefepime. See ID and pulmonary notes. (9) COPD exacerbation Assessment & Plan: Continue IV solumedrol and albuterol nebs. See pulmonary note. Status: progressing ZEB FUENTES Feb 18, 2017 11:45
[2017-02-18 12:00] VITALS: BP 134/75
[2017-02-18] MEDS: LORazepam Inj 2mg/ml 1ml IV PRN ×2 (12:05→17:58)
--- NOTE | 2017-02-18 12:33 | Diagnostic Imaging Report ---
Indication: SOB Technique: One view of the chest Comparison: 02/17/2017 Findings: There is increasing infiltrate in the right mid and lower lung. There appears to be decreased peripheral opacity on the left. Generalized mild interstitial congestion persists, unchanged. Heart remains enlarged. Right hilar and axillary surgical clips remain Impression: Increasing consolidation in the right mid and lower lung, over one day Possibly improving consolidation and/or pleural fluid on the left Other stable findings as described
[2017-02-18 16:00] VITALS: BP 169/101
--- NOTE | 2017-02-18 18:02 | Progress Note ---
DATE: 02/18/2017 SUBJECTIVE: The patient continues to be anxious. Medication-seeking behavior. Wants to increase the Ativan and would like to receive it IV. She has poor insight and judgment into her medical and mental condition. MENTAL STATUS EXAMINATION: The patient is alert and oriented x3. Mood is anxious and irritable. Affect is constricted. Congruent with mood. Thought process is concrete. Thought content, no suicidal or homicidal ideations. ASSESSMENT: Depression. PLAN: 1. The patient will be continued on current medication. 2. We will continue to follow and readjust the medication. Wan Stern M.D. DR: RITO JOB#: [id number] CC:
--- NOTE | 2017-02-18 18:36 | Cardiology Progress Note ---
Assessment/Plan Assessment/Plan 1. Respiratory failure. 2. Chronic obstructive pulmonary disease exacerbation. 3. Questionable pneumonia. 4. History of mitral regurgitation of significant degree. 5. History of subdural hematomas and intracranial hemorrhage. 6. History of breast cancer. 7. Anemia. 8. History of Clostridium difficile colitis. 9. History of anxiety. 10. Sinus tachycardia secondary to above. 11. Htn 12. CHF acute diastolic conitneu pulm rxn on acie will add norvasc for bp dc ivf tele reviewed labs reviweed cxr reviewed aggressive diuretics Subjective Cardiovascular: Denies: chest pain, lightheadedness Respiratory: Reports: cough, shortness of breath, wheezing Gastrointestinal/Abdominal: Denies: abdominal pain Genitourinary: Denies: burning Objective Last 24 Hour Vital Signs Date Time Temp Pulse Resp B/P (MAP) Pulse Ox O2 Delivery O2 Flow Rate FiO2 02/18/17 17:58 98 160/101 02/18/17 17:58 160/101 02/18/17 16:00 113 02/18/17 14:48 122 20 92 Non-Rebreather 100 02/18/17 14:42 119 20 98 Non-Rebreather 100 02/18/17 12:43 86 02/18/17 12:00 97.6 111 19 134/75 92 Non-Rebreather 100 02/18/17 10:25 106 18 92 Nasal Cannula 3.0 32 02/18/17 10:20 109 20 88 Nasal Cannula 2.0 28 02/18/17 09:04 134/81 02/18/17 09:04 118 134/81 02/18/17 08:00 97.3 118 18 134/81 91 Nasal Cannula 3.0 02/18/17 06:48 107 18 97 Nasal Cannula 2.0 28 02/18/17 06:44 101 18 92 Nasal Cannula 2.0 28 02/18/17 04:00 97.6 100 19 88 Nasal Cannula 2.0 02/18/17 04:00 95 02/18/17 03:59 109 18 100 Nasal Cannula 2.0 28 02/18/17 03:55 98 18 97 Nasal Cannula 2.0 28 02/18/17 00:13 Nasal Cannula 02/18/17 00:13 Nasal Cannula 02/18/17 00:00 111 02/18/17 00:00 97.0 112 28 152/94 95 Nasal Cannula 2.0 02/17/17 20:30 109 157/96 02/17/17 20:00 96.1 117 24 138/85 93 Nasal Cannula 2.0 02/17/17 20:00 115 02/17/17 19:52 109 18 100 Nasal Cannula 2.0 28 02/17/17 19:51 105 18 99 Nasal Cannula 2.0 28 02/17/17 18:48 97.9 General Appearance: no apparent distress Cardiovascular: normal rate, tachycardia Respiratory/Chest: crackles/rales Abdomen: normal bowel sounds, non tender, soft Extremities: no swelling Intake and Output 02/18/17 02/19/17 19:00 07:00 Intake Total 100 ml Balance 100 ml Intake Oral 100 ml Laboratory Tests Test 02/18/17 03:55 02/18/17 10:40 White Blood Count 12.8 K/UL (4.8-10.8) #H Red Blood Count 3.13 M/UL (4.20-5.40) L Hemoglobin 10.6 G/DL (12.0-16.0) L Hematocrit 32.2 % (37.0-47.0) L Mean Corpuscular Volume 103 FL (80-99) H Mean Corpuscular Hemoglobin 33.7 PG (27.0-31.0) H Mean Corpuscular Hemoglobin Concent 32.8 G/DL (32.0-36.0) Red Cell Distribution Width 12.5 % (11.6-14.8) Platelet Count 197 K/UL (150-450) Mean Platelet Volume 7.7 FL (6.5-10.1) Neutrophils (%) (Auto) 78.6 % (45.0-75.0) H Lymphocytes (%) (Auto) 13.9 % (20.0-45.0) L Monocytes (%) (Auto) 6.9 % (1.0-10.0) Eosinophils (%) (Auto) 0.1 % (0.0-3.0) Basophils (%) (Auto) 0.5 % (0.0-2.0) Sodium Level 132 MMOL/L (136-145) L Potassium Level 3.6 MMOL/L (3.5-5.1) Chloride Level 99 MMOL/L (98-107) Carbon Dioxide Level 24 MMOL/L (21-32) Anion Gap 9 (5-15) Blood Urea Nitrogen 20 mg/dL (7-18) H Creatinine 0.8 MG/DL (0.55-1.30) Estimat Glomerular Filtration Rate mL/min (>60) Glucose Level 128 MG/DL (74-106) H Calcium Level 8.8 MG/DL (8.5-10.1) Coccidioides Antibody (Comp Fix) Pending Cryptococcus Antigen Pending Arterial Blood pH 7.412 (7.350-7.450) Arterial Blood Partial Pressure CO2 46.2 mmHg (35.0-45.0) H Arterial Blood Partial Pressure O2 64.0 mmHg (75.0-100.0) L Arterial Blood HCO3 28.8 mmol/L (22.0-26.0) H Arterial Blood Oxygen Saturation 85.6 % (92.0-98.0) L Arterial Blood Base Excess 3.6 Scooby Test Positive Microbiology Date/Time Source Procedure Growth Status 02/15/17 19:30 Blood Blood Culture - Preliminary NO GROWTH AFTER 48 HOURS Resulted 02/15/17 19:20 Blood Blood Culture - Preliminary NO GROWTH AFTER 48 HOURS Resulted JEFFERSON ROMEO Feb 18, 2017 18:36
[2017-02-18 20:00] VITALS: BP 160/100
[2017-02-18] MEDS: Meropenem 1 GM in NS 110 ML IVPB SCH (21:00)
[2017-02-18] MEDS: Vancomycin 1250mg/D5W 250ml IVPB SCH (23:41)
[2017-02-19] VITALS: BP 157/92
[2017-02-19] MEDS ORDERED: Vancomycin 1gm in D5W 275ml IVPB ONE (01:00)
[2017-02-19] MEDS ORDERED: Vancomycin 1gm inj IVPB ONE (01:17)
[2017-02-19] MEDS: Albuterol/Ipratropium 3ml neb HHN SCH ×6 (03:00→22:59)
[2017-02-19 04:00] VITALS: BP 123/78
[2017-02-19] MEDS: Morphine Sulfate 4mg/ml Inj IVP PRN (05:25)
[2017-02-19 07:03] LABS: BASOPHILS % (AUTO) 0.3 % (0.0-2.0); EOSINOPHILS % (AUTO) 0.3 % (0.0-3.0); HEMATOCRIT 35.1 % (37.0-47.0); HEMOGLOBIN 11.4 G/DL (12.0-16.0); LYMPHOCYTES % (AUTO) 21.7 % (20.0-45.0); MEAN CORPUSCULAR VOLUME 103 FL (80-99); MONOCYTES % (AUTO) 7.9 % (1.0-10.0); NEUTROPHILS % (AUTO) 69.8 % (45.0-75.0); PLATELET COUNT 223 K/UL (150-450); RED BLOOD COUNT 3.42 M/UL (4.20-5.40); RED CELL DISTRIBUTION WIDTH 12.7 % (11.6-14.8); WHITE BLOOD COUNT 13.8 K/UL (4.8-10.8)
[2017-02-19 07:36] VITALS: BP 129/74
[2017-02-19 07:55] LABS: ANION GAP 8 (5-15); BLOOD UREA NITROGEN 24 mg/dL (7-18); CALCIUM 9.7 MG/DL (8.5-10.1); CARBON DIOXIDE 28 MMOL/L (21-32); CHLORIDE 98 MMOL/L (98-107); CREATININE 0.8 MG/DL (0.55-1.30); POTASSIUM 3.4 MMOL/L (3.5-5.1); SODIUM 134 MMOL/L (136-145)
[2017-02-19] MEDS: LORazepam Inj 2mg/ml 1ml IV PRN ×3 (08:15→20:44)
[2017-02-19] MEDS: Solu-MEDROL 125mg Inj IVP SCH (09:00)
[2017-02-19] MEDS: Heparin 5000 units/ml inj SUBQ SCH ×2 (09:00→20:32)
[2017-02-19] MEDS: Aspirin EC 81mg tab ORAL SCH (09:00)
[2017-02-19] MEDS: Meropenem 1 GM in NS 110 ML IVPB SCH ×2 (09:00→20:31)
[2017-02-19] MEDS: Vancomycin oral 125mg/2.5ml ORAL SCH ×2 (09:00→18:17)
[2017-02-19] MEDS: Lisinopril 20mg tab ORAL SCH (09:01)
[2017-02-19] MEDS: Lyrica 75mg cap ORAL SCH ×3 (09:02→18:18)
--- NOTE | 2017-02-19 09:42 | Diagnostic Imaging Report ---
APPROVED REPORT CPT Code: 30110 Present Symptoms Shortness of breath BILATERAL: Imaging reveals a patent deep venous system bilaterally. There is no evidence of thrombus within the femoral, popliteal or tibial segments. The greater saphenous veins are also within normal limits. Doppler indicates normal spontaneous flow within these segments.
--- NOTE | 2017-02-19 09:42 | Diagnostic Imaging Report ---
APPROVED REPORT CPT Code: 51223 Present Symptoms Shortness of breath BILATERAL: Imaging reveals a patent deep venous system bilaterally. There is no evidence of thrombus within the femoral, popliteal or tibial segments. The greater saphenous veins are also within normal limits. Doppler indicates normal spontaneous flow within these segments.
--- NOTE | 2017-02-19 09:42 | Diagnostic Imaging Report ---
APPROVED REPORT CPT Code: 17434 Present Symptoms Shortness of breath BILATERAL: Imaging reveals a patent deep venous system bilaterally. There is no evidence of thrombus within the femoral, popliteal or tibial segments. The greater saphenous veins are also within normal limits. Doppler indicates normal spontaneous flow within these segments.
[2017-02-19 11:41] VITALS: BP 128/75
--- NOTE | 2017-02-19 13:42 | Pulmonology Progress Note ---
Assessment/Plan Problems: (1) Acute and chronic respiratory failure ([id number]) (2) COPD exacerbation (3) Pneumonia (4) Fibromyalgia (5) History of breast cancer (6) Limited mobility Assessment/Plan cxr this morning shows still lots of infiltrate trial of lidocain inhalation chest PT keep same dose steroids keep in CAYET[place]O check sputum consult reviewed. on lasix BI: check CXR and bnp in am might need BIPAP or intubation for short term. Subjective ROS Limited/Unobtainable: No Interval Events: still on 100% nrm Allergies: Coded Allergies: TETRACYCLINE (Unverified Allergy, Unknown, 07/24/14) Objective Last 24 Hour Vital Signs Date Time Temp Pulse Resp B/P (MAP) Pulse Ox O2 Delivery O2 Flow Rate FiO2 02/19/17 12:00 121 02/19/17 11:41 98.5 121 18 128/75 97 Non-Rebreather 15.0 02/19/17 10:40 120 18 94 Non-Rebreather 100 02/19/17 10:33 117 18 94 Non-Rebreather 100 02/19/17 09:01 129/74 02/19/17 09:00 116 129/74 02/19/17 08:00 114 02/19/17 07:36 78.3 116 19 129/74 95 Non-Rebreather 15.0 02/19/17 07:10 115 18 93 Non-Rebreather 100 02/19/17 07:00 115 18 92 Non-Rebreather 100 02/19/17 04:00 106 02/19/17 04:00 97.7 100 20 123/78 94 Non-Rebreather 100 100 02/19/17 03:15 Non-Rebreather 100 02/19/17 03:15 Non-Rebreather 100 02/19/17 00:00 114 02/19/17 00:00 97 20 157/92 92 Non-Rebreather 100 97 02/18/17 23:39 112 18 92 Non-Rebreather 100 02/18/17 23:25 114 18 92 Non-Rebreather 100 02/18/17 20:20 114 160/104 02/18/17 20:00 122 02/18/17 20:00 98.1 100 20 160/100 Non-Rebreather 100 100 02/18/17 19:52 114 184/103 02/18/17 19:10 117 18 92 Non-Rebreather 100 02/18/17 19:10 Non-Rebreather 100 02/18/17 17:58 98 160/101 02/18/17 17:58 160/101 02/18/17 16:00 97.7 112 18 169/101 92 Non-Rebreather 94 02/18/17 16:00 113 02/18/17 14:48 122 20 92 Non-Rebreather 100 02/18/17 14:42 119 20 98 Non-Rebreather 100 Intake and Output 02/19/17 02/20/17 19:00 07:00 Intake Total 240 ml Balance 240 ml Intake Oral 240 ml # Voids 1 Objective still dyspnic, with spells of cough HEENT: normocephalic, atraumatic Respiratory/Chest: lungs clear Cardiovascular: normal peripheral pulses, normal rate Abdomen: normal bowel sounds, soft, non tender Genitourinary: normal external genitalia Extremities: no cyanosis Skin: no rash 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, no motor/sensory deficits Laboratory Tests 02/18/17 23:05: Vancomycin Level Trough 13.4H 02/19/17 04:10: White Blood Count 13.8H, Red Blood Count 3.42L, Hemoglobin 11.4L, Hematocrit 35.1L, Mean Corpuscular Volume 103H, Mean Corpuscular Hemoglobin 33.3H, Mean Corpuscular Hemoglobin Concent 32.5, Red Cell Distribution Width 12.7, Platelet Count 223, Mean Platelet Volume 7.1, Neutrophils (%) (Auto) 69.8, Lymphocytes (% ) (Auto) 21.7, Monocytes (%) (Auto) 7.9, Eosinophils (%) (Auto) 0.3, Basophils ( %) (Auto) 0.3, Sodium Level 134L, Potassium Level 3.4L, Chloride Level 98, Carbon Dioxide Level 28, Anion Gap 8, Blood Urea Nitrogen 24H, Creatinine 0.8, Estimat Glomerular Filtration Rate , Glucose Level 97, Calcium Level 9.7 Current Medications Medications (Trade) Dose Ordered Sig/Wilner Route PRN Reason Start Time Stop Time Status Last Admin Dose Admin Acetaminophen (Tylenol) 650 mg Q4H PRN ORAL FEVER 02/15/17 22:45 03/17/17 22:44 Acetaminophen/ Hydrocodone Bitart (Hannacroix 5/325) 1 tab Q6H PRN ORAL Moderate Pain (Pain Scale 4-6) 02/16/17 12:00 02/23/17 11:59 02/17/17 05:00 Albuterol/ Ipratropium (DuoNeb 0.5-3(2.5)mg/3ml) 3 ml Q4HRT HHN 02/16/17 11:00 02/21/17 10:59 02/19/17 10:39 Amlodipine Besylate (Norvasc) 2.5 mg BIDPRN PRN ORAL sbp greater than 160 02/17/17 16:45 03/19/17 16:44 02/18/17 19:52 Aspirin (Ecotrin) 81 mg DAILY ORAL 02/17/17 09:00 03/19/17 08:59 02/19/17 09:00 Carvedilol (Coreg) 3.125 mg Q12HR ORAL 02/16/17 12:00 03/18/17 11:59 02/19/17 09:00 Dextrose (Dextrose 50%) STAT PRN IV Hypoglycemia 02/15/17 22:45 03/17/17 22:44 Escitalopram Oxalate (Lexapro) 10 mg DAILY ORAL 02/18/17 09:00 03/20/17 08:59 02/19/17 09:01 Furosemide (Lasix) 40 mg EVERY 12 HOURS IV 02/18/17 20:00 03/20/17 19:59 02/19/17 09:01 Heparin Sodium (Porcine) (Heparin 5000 units/ml) 5,000 units EVERY 12 HOURS SUBQ 02/16/17 09:00 03/18/17 08:59 02/18/17 09:10 Hydralazine HCl (Apresoline) 10 mg Q8H PRN IV SBP > 160, SECOND LINE AGENT 02/17/17 17:00 03/19/17 14:29 Lidocaine (Xylocaine 1% MPF 5ml) 10 ml Q4H PRN HHN cough 02/17/17 10:15 03/19/17 10:14 Lisinopril (Prinivil) 20 mg BID ORAL 02/16/17 18:00 03/18/17 17:59 02/19/17 09:01 Lorazepam (Ativan 2mg/ml 1ml) 2 mg EVERY 2 HOURS PRN IV For Anxiety 02/15/17 22:45 02/22/17 22:44 02/19/17 12:10 Meropenem 1 gm/ Sodium Chloride 110 ml @ 220 mls/hr Q12HR IVPB 02/18/17 21:00 02/23/17 20:59 02/19/17 09:00 Methadone HCl (Methadone HCl) 5 mg EVERY 12 HOURS ORAL 02/16/17 21:00 02/23/17 20:59 02/19/17 09:03 Methylprednisolone Sodium Succinate (Solu-MEDROL) 60 mg DAILY IVP 02/18/17 09:00 03/18/17 11:59 02/19/17 09:00 Morphine Sulfate (Morphine Sulfate) 4 mg EVERY 4 HOURS PRN IVP Severe Pain (Pain Scale 7-10) 02/15/17 22:45 02/22/17 22:44 02/19/17 05:25 Ondansetron HCl (Zofran) 4 mg Q6H PRN IVP Nausea & Vomiting 02/15/17 22:45 03/17/17 22:44 Polyethylene Glycol (Miralax) 17 gm DAILYPRN PRN ORAL Constipation 02/15/17 22:45 03/17/17 22:44 02/17/17 04:59 Pravastatin Sodium (Pravachol) 20 mg BEDTIME ORAL 02/16/17 21:00 03/18/17 20:59 02/18/17 20:20 Pregabalin (Lyrica) 150 mg THREE TIMES A DAY ORAL 02/16/17 13:00 03/18/17 12:59 02/19/17 09:02 Promethazine HCl/ Codeine (Phenergan with Codeine) 5 ml Q4H PRN ORAL For Cough 02/16/17 10:45 03/18/17 10:44 02/18/17 09:07 Vancomycin HCl (Vanco rx to dose) 1 ea DAILY PRN MISC PER RX PROTOCOL 02/16/17 07:45 03/18/17 07:44 Vancomycin HCl (Vancomycin) 125 mg BID ORAL 02/16/17 13:00 02/23/17 12:59 02/19/17 09:00 Vancomycin HCl/ Dextrose 250 ml @ 166.667 mls/hr Q24H IVPB 02/15/17 23:30 02/20/17 23:29 02/18/17 23:41 TWIN FONTANEZ Feb 19, 2017 13:42
[2017-02-19 15:53] VITALS: BP 101/61
--- NOTE | 2017-02-19 16:11 | Internal Med Progress Note ---
Subjective Date of Service: Feb 19, 2017 Physician Name Zeb Fuentes Attending Physician Jun Cedillo MD Current Medications Medications (Trade) Dose Ordered Sig/Wilner Route PRN Reason Start Time Stop Time Status Last Admin Dose Admin Acetaminophen (Tylenol) 650 mg Q4H PRN ORAL FEVER 02/15/17 22:45 03/17/17 22:44 Acetaminophen/ Hydrocodone Bitart (Datto 5/325) 1 tab Q6H PRN ORAL Moderate Pain (Pain Scale 4-6) 02/16/17 12:00 02/23/17 11:59 02/17/17 05:00 Albuterol/ Ipratropium (DuoNeb 0.5-3(2.5)mg/3ml) 3 ml Q4HRT HHN 02/16/17 11:00 02/21/17 10:59 02/19/17 15:08 Amlodipine Besylate (Norvasc) 2.5 mg BIDPRN PRN ORAL sbp greater than 160 02/17/17 16:45 03/19/17 16:44 02/18/17 19:52 Aspirin (Ecotrin) 81 mg DAILY ORAL 02/17/17 09:00 03/19/17 08:59 02/19/17 09:00 Carvedilol (Coreg) 3.125 mg Q12HR ORAL 02/16/17 12:00 03/18/17 11:59 02/19/17 09:00 Dextrose (Dextrose 50%) STAT PRN IV Hypoglycemia 02/15/17 22:45 03/17/17 22:44 Escitalopram Oxalate (Lexapro) 10 mg DAILY ORAL 02/18/17 09:00 03/20/17 08:59 02/19/17 09:01 Furosemide (Lasix) 40 mg EVERY 12 HOURS IV 02/18/17 20:00 03/20/17 19:59 02/19/17 09:01 Heparin Sodium (Porcine) (Heparin 5000 units/ml) 5,000 units EVERY 12 HOURS SUBQ 02/16/17 09:00 03/18/17 08:59 02/18/17 09:10 Hydralazine HCl (Apresoline) 10 mg Q8H PRN IV SBP > 160, SECOND LINE AGENT 02/17/17 17:00 03/19/17 14:29 Lidocaine (Xylocaine 1% MPF 5ml) 10 ml Q4H PRN HHN cough 02/17/17 10:15 03/19/17 10:14 Lisinopril (Prinivil) 20 mg BID ORAL 02/16/17 18:00 03/18/17 17:59 02/19/17 09:01 Lorazepam (Ativan 2mg/ml 1ml) 2 mg EVERY 2 HOURS PRN IV For Anxiety 02/15/17 22:45 02/22/17 22:44 02/19/17 12:10 Meropenem 1 gm/ Sodium Chloride 110 ml @ 220 mls/hr Q12HR IVPB 02/18/17 21:00 02/23/17 20:59 02/19/17 09:00 Methadone HCl (Methadone HCl) 5 mg EVERY 12 HOURS ORAL 02/16/17 21:00 02/23/17 20:59 02/19/17 09:03 Methylprednisolone Sodium Succinate (Solu-MEDROL) 40 mg DAILY IVP 02/20/17 09:00 03/22/17 08:59 Morphine Sulfate (Morphine Sulfate) 4 mg EVERY 4 HOURS PRN IVP Severe Pain (Pain Scale 7-10) 02/15/17 22:45 02/22/17 22:44 02/19/17 05:25 Ondansetron HCl (Zofran) 4 mg Q6H PRN IVP Nausea & Vomiting 02/15/17 22:45 03/17/17 22:44 Polyethylene Glycol (Miralax) 17 gm DAILYPRN PRN ORAL Constipation 02/15/17 22:45 03/17/17 22:44 02/17/17 04:59 Pravastatin Sodium (Pravachol) 20 mg BEDTIME ORAL 02/16/17 21:00 03/18/17 20:59 02/18/17 20:20 Pregabalin (Lyrica) 150 mg THREE TIMES A DAY ORAL 02/16/17 13:00 03/18/17 12:59 02/19/17 13:43 Promethazine HCl/ Codeine (Phenergan with Codeine) 5 ml Q4H PRN ORAL For Cough 02/16/17 10:45 03/18/17 10:44 02/18/17 09:07 Vancomycin HCl (Vanco rx to dose) 1 ea DAILY PRN MISC PER RX PROTOCOL 02/16/17 07:45 03/18/17 07:44 Vancomycin HCl (Vancomycin) 125 mg BID ORAL 02/16/17 13:00 02/23/17 12:59 02/19/17 09:00 Vancomycin HCl/ Dextrose 250 ml @ 166.667 mls/hr Q24H IVPB 02/15/17 23:30 02/20/17 23:29 02/18/17 23:41 Allergies: Coded Allergies: TETRACYCLINE (Unverified Allergy, Unknown, 07/24/14) ROS Limited/Unobtainable: No Constitutional: Reports: no symptoms HEENT: Reports: no symptoms Cardiovascular: Reports: no symptoms Respiratory: Reports: cough, shortness of breath Gastrointestinal/Abdominal: Reports: no symptoms Genitourinary: Reports: no symptoms Neurologic/Psychiatric: Reports: no symptoms Subjective 76 YO F admitted with shortness of breath. Now pneumonia. Cover for Int Med- Dr Cedillo. CA[place]ET[place]. Currently on non-rebreather mask. Await video swallow eval Objective Last Vital Signs Date Time Temp Pulse Resp B/P (MAP) Pulse Ox O2 Delivery O2 Flow Rate FiO2 02/19/17 15:53 98.4 110 19 101/61 96 Non-Rebreather 15.0 02/19/17 15:07 100 Laboratory Tests Test 02/18/17 23:05 02/19/17 04:10 Vancomycin Level Trough 13.4 ug/mL (5.0-12.0) H White Blood Count 13.8 K/UL (4.8-10.8) H Red Blood Count 3.42 M/UL (4.20-5.40) L Hemoglobin 11.4 G/DL (12.0-16.0) L Hematocrit 35.1 % (37.0-47.0) L Mean Corpuscular Volume 103 FL (80-99) H Mean Corpuscular Hemoglobin 33.3 PG (27.0-31.0) H Mean Corpuscular Hemoglobin Concent 32.5 G/DL (32.0-36.0) Red Cell Distribution Width 12.7 % (11.6-14.8) Platelet Count 223 K/UL (150-450) Mean Platelet Volume 7.1 FL (6.5-10.1) Neutrophils (%) (Auto) 69.8 % (45.0-75.0) Lymphocytes (%) (Auto) 21.7 % (20.0-45.0) Monocytes (%) (Auto) 7.9 % (1.0-10.0) Eosinophils (%) (Auto) 0.3 % (0.0-3.0) Basophils (%) (Auto) 0.3 % (0.0-2.0) Sodium Level 134 MMOL/L (136-145) L Potassium Level 3.4 MMOL/L (3.5-5.1) L Chloride Level 98 MMOL/L (98-107) Carbon Dioxide Level 28 MMOL/L (21-32) Anion Gap 8 (5-15) Blood Urea Nitrogen 24 mg/dL (7-18) H Creatinine 0.8 MG/DL (0.55-1.30) Estimat Glomerular Filtration Rate mL/min (>60) Glucose Level 97 MG/DL (74-106) Calcium Level 9.7 MG/DL (8.5-10.1) Intake and Output 02/19/17 02/20/17 19:00 07:00 Intake Total 520 ml Balance 520 ml Intake Oral 520 ml # Voids 3 Objective General Appearance: WD/WN, no apparent distress, alert EENT: PERRL/EOMI, normal ENT inspection, TMs normal Neck: non-tender, normal alignment, supple, normal inspection Cardiovascular: normal peripheral pulses, normal rate, regular rhythm, no gallop/murmur, no JVD Respiratory/Chest: non-rebreather; chest wall non-tender, respiratory distress , decreased breath sounds, crackles/rales, rhonchi - bilaterally, expiratory wheezing Abdomen: normal bowel sounds, non tender, soft, no organomegaly, no mass Extremities: normal range of motion 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 (8) Pneumonia Assessment & Plan: Continue Meropenem. See ID and pulmonary notes. (9) COPD exacerbation Assessment & Plan: Continue IV solumedrol and albuterol nebs. See pulmonary note. Status: not improved ZEB FUENTES Feb 19, 2017 16:11
--- NOTE | 2017-02-19 17:22 | Infectious Diseases Prog Note ---
Assessment/Plan Assessment/Plan Abx: IV Vanco 02/15- Cefepime 02/15-02/18 Meropenem 02/18- Assesment: Acute hypoxic resp failure, - combination of COPD exacerbation and PNA; worsenened 02/18 -venous duplex 02/16no DVT PNA; worsening- r/o MDRO, r/o fungal pnuemonia CXR 02/18: Increasing consolidation in the right mid and lower lung, over one day. Possibly improving consolidation and/or pleural fluid on the left -CXR 02/17: There is somewhat decreased but persistent and still extensive consolidation in the right mid and lower lung. Consolidation, atelectasis, and pleural fluid at the left lung base persists and are probably unchanged, -CXR: Limited evaluation due to significant degree of soft tissue attenuation. Suspect pneumonia at the right lung base. -sp cx ordered not collected yet Leukocytosis, mild (on steroids)- worsening Afebrile COPD on home O2 Hx of Cdiff DM2 Chronic abd pain hx of MRSA bacteremia 07/2015 fibromyalgia, HTN, HLD, R breast cancer,Tobacco abuse (stopped 4 years ago), Anxiety, AOCD Plan: -Continue Meropenem #2 (abx d#5) given worsenign resp status -Continue IV Vancomycin #5 -f/u sputum cx, Cocci ab and Cr Ag serum -Check Influenza a/b, CXR am -continue prophylatic PO Vancomycin #4 given prior hx of Cdiff and current abx treatment (continue while on abx) -F/u cultures -Monitor CBC/BMP, temperatures -Aspiration precautions Thank you for this consultation. Will continue to follow along with you. Discussed with RN. Subjective Allergies: Coded Allergies: TETRACYCLINE (Unverified Allergy, Unknown, 07/24/14) Subjective afebrile, VSS remains on NRB 15L, FIo2 100% worsening leukocytosis awaitring sputum cx collection Objective Vital Signs Last 24 Hour Vital Signs Date Time Temp Pulse Resp B/P (MAP) Pulse Ox O2 Delivery O2 Flow Rate FiO2 02/19/17 15:53 98.4 110 19 101/61 96 Non-Rebreather 15.0 02/19/17 15:17 114 20 95 Non-Rebreather 100 02/19/17 15:07 102 20 95 Non-Rebreather 15.0 100 02/19/17 12:00 121 02/19/17 11:41 98.5 121 18 128/75 97 Non-Rebreather 15.0 02/19/17 10:40 120 18 94 Non-Rebreather 100 02/19/17 10:33 117 18 94 Non-Rebreather 100 02/19/17 09:01 129/74 02/19/17 09:00 116 129/74 02/19/17 08:00 114 02/19/17 07:36 78.3 116 19 129/74 95 Non-Rebreather 15.0 02/19/17 07:10 115 18 93 Non-Rebreather 100 02/19/17 07:00 115 18 92 Non-Rebreather 100 02/19/17 04:00 106 02/19/17 04:00 97.7 100 20 123/78 94 Non-Rebreather 100 100 02/19/17 03:15 Non-Rebreather 100 02/19/17 03:15 Non-Rebreather 100 02/19/17 00:00 114 02/19/17 00:00 97 20 157/92 92 Non-Rebreather 100 97 02/18/17 23:39 112 18 92 Non-Rebreather 100 02/18/17 23:25 114 18 92 Non-Rebreather 100 02/18/17 20:20 114 160/104 02/18/17 20:00 122 02/18/17 20:00 98.1 100 20 160/100 Non-Rebreather 100 100 02/18/17 19:52 114 184/103 02/18/17 19:10 117 18 92 Non-Rebreather 100 02/18/17 19:10 Non-Rebreather 100 02/18/17 17:58 98 160/101 02/18/17 17:58 160/101 Height (Feet): 5 Height (Inches): 7.00 Weight (Pounds): 123 Objective General Appearance: lethargic, NRB mask HEENT: PERRL, no oral lesions, atraumatic head Neck: supple Respiratory: scattered wheezing Cardiovascular: regular rate, rhythmm, no murmurs Gastrointestinal: normal inspection, non tender, no mass, non-distended Musculoskeletal: back normal, normal range of motion Skin: no lesions or rashes reviewed Laboratory Tests Test 02/18/17 23:05 02/19/17 04:10 Vancomycin Level Trough 13.4 ug/mL (5.0-12.0) H White Blood Count 13.8 K/UL (4.8-10.8) H Red Blood Count 3.42 M/UL (4.20-5.40) L Hemoglobin 11.4 G/DL (12.0-16.0) L Hematocrit 35.1 % (37.0-47.0) L Mean Corpuscular Volume 103 FL (80-99) H Mean Corpuscular Hemoglobin 33.3 PG (27.0-31.0) H Mean Corpuscular Hemoglobin Concent 32.5 G/DL (32.0-36.0) Red Cell Distribution Width 12.7 % (11.6-14.8) Platelet Count 223 K/UL (150-450) Mean Platelet Volume 7.1 FL (6.5-10.1) Neutrophils (%) (Auto) 69.8 % (45.0-75.0) Lymphocytes (%) (Auto) 21.7 % (20.0-45.0) Monocytes (%) (Auto) 7.9 % (1.0-10.0) Eosinophils (%) (Auto) 0.3 % (0.0-3.0) Basophils (%) (Auto) 0.3 % (0.0-2.0) Sodium Level 134 MMOL/L (136-145) L Potassium Level 3.4 MMOL/L (3.5-5.1) L Chloride Level 98 MMOL/L (98-107) Carbon Dioxide Level 28 MMOL/L (21-32) Anion Gap 8 (5-15) Blood Urea Nitrogen 24 mg/dL (7-18) H Creatinine 0.8 MG/DL (0.55-1.30) Estimat Glomerular Filtration Rate mL/min (>60) Glucose Level 97 MG/DL (74-106) Calcium Level 9.7 MG/DL (8.5-10.1) Current Medications Medications (Trade) Dose Ordered Sig/Wilner Route PRN Reason Start Time Stop Time Status Last Admin Dose Admin Acetaminophen (Tylenol) 650 mg Q4H PRN ORAL FEVER 02/15/17 22:45 03/17/17 22:44 Acetaminophen/ Hydrocodone Bitart ([place] 5/325) 1 tab Q6H PRN ORAL Moderate Pain (Pain Scale 4-6) 02/16/17 12:00 02/23/17 11:59 02/17/17 05:00 Albuterol/ Ipratropium (DuoNeb 0.5-3(2.5)mg/3ml) 3 ml Q4HRT HHN 02/16/17 11:00 02/21/17 10:59 02/19/17 15:08 Amlodipine Besylate (Norvasc) 2.5 mg BIDPRN PRN ORAL sbp greater than 160 02/17/17 16:45 03/19/17 16:44 02/18/17 19:52 Aspirin (Ecotrin) 81 mg DAILY ORAL 02/17/17 09:00 03/19/17 08:59 02/19/17 09:00 Carvedilol (Coreg) 3.125 mg Q12HR ORAL 02/16/17 12:00 03/18/17 11:59 02/19/17 09:00 Dextrose (Dextrose 50%) STAT PRN IV Hypoglycemia 02/15/17 22:45 03/17/17 22:44 Escitalopram Oxalate (Lexapro) 10 mg DAILY ORAL 02/18/17 09:00 03/20/17 08:59 02/19/17 09:01 Furosemide (Lasix) 40 mg EVERY 12 HOURS IV 02/18/17 20:00 03/20/17 19:59 02/19/17 09:01 Heparin Sodium (Porcine) (Heparin 5000 units/ml) 5,000 units EVERY 12 HOURS SUBQ 02/16/17 09:00 03/18/17 08:59 02/18/17 09:10 Hydralazine HCl (Apresoline) 10 mg Q8H PRN IV SBP > 160, SECOND LINE AGENT 02/17/17 17:00 03/19/17 14:29 Lidocaine (Xylocaine 1% MPF 5ml) 10 ml Q4H PRN HHN cough 02/17/17 10:15 03/19/17 10:14 Lisinopril (Prinivil) 20 mg BID ORAL 02/16/17 18:00 03/18/17 17:59 02/19/17 09:01 Lorazepam (Ativan 2mg/ml 1ml) 2 mg EVERY 2 HOURS PRN IV For Anxiety 02/15/17 22:45 02/22/17 22:44 10/12/17 12:10 Meropenem 1 gm/ Sodium Chloride 110 ml @ 220 mls/hr Q12HR IVPB 02/18/17 21:00 02/23/17 20:59 02/19/17 09:00 Methadone HCl (Methadone HCl) 5 mg EVERY 12 HOURS ORAL 02/16/17 21:00 02/23/17 20:59 02/19/17 09:03 Methylprednisolone Sodium Succinate (Solu-MEDROL) 40 mg DAILY IVP 02/20/17 09:00 03/22/17 08:59 Morphine Sulfate (Morphine Sulfate) 4 mg EVERY 4 HOURS PRN IVP Severe Pain (Pain Scale 7-10) 02/15/17 22:45 02/22/17 22:44 02/19/17 05:25 Ondansetron HCl (Zofran) 4 mg Q6H PRN IVP Nausea & Vomiting 02/15/17 22:45 03/17/17 22:44 Polyethylene Glycol (Miralax) 17 gm DAILYPRN PRN ORAL Constipation 02/15/17 22:45 03/17/17 22:44 02/17/17 04:59 Pravastatin Sodium (Pravachol) 20 mg BEDTIME ORAL 02/16/17 21:00 03/18/17 20:59 02/18/17 20:20 Pregabalin (Lyrica) 150 mg THREE TIMES A DAY ORAL 02/16/17 13:00 03/18/17 12:59 02/19/17 13:43 Promethazine HCl/ Codeine (Phenergan with Codeine) 5 ml Q4H PRN ORAL For Cough 02/16/17 10:45 03/18/17 10:44 02/18/17 09:07 Vancomycin HCl (Vanco rx to dose) 1 ea DAILY PRN MISC PER RX PROTOCOL 02/16/17 07:45 03/18/17 07:44 Vancomycin HCl (Vancomycin) 125 mg BID ORAL 02/16/17 13:00 02/23/17 12:59 02/19/17 09:00 Vancomycin HCl/ Dextrose 250 ml @ 166.667 mls/hr Q24H IVPB 02/15/17 23:30 02/20/17 23:29 02/18/17 23:41 Alyse Traylor M.D. Feb 19, 2017 17:22
[2017-02-19] MEDS ORDERED: NS 275ml ONE (17:32)
[2017-02-19] MEDS ORDERED: Tubing IV Secondary IV ONE (17:32)
[2017-02-19] MEDS ORDERED: D5 1/2NS 1000ml IV ONE (17:32)
[2017-02-19] MEDS ORDERED: 1/2 NS 1000ml IV ONE (17:32)
--- NOTE | 2017-02-19 17:52 | Cardiology Progress Note ---
Assessment/Plan Assessment/Plan 1. Respiratory failure. 2. Chronic obstructive pulmonary disease exacerbation. 3. Questionable pneumonia. 4. History of mitral regurgitation of significant degree. 5. History of subdural hematomas and intracranial hemorrhage. 6. History of breast cancer. 7. Anemia. 8. History of Clostridium difficile colitis. 9. History of anxiety. 10. Sinus tachycardia secondary to above. 11. Htn 12. CHF acute diastolic conitneu pulm rxn on acie will decrease does to allwo room for diuresis dc ivf tele reviewed labs reviweed cxr reviewed aggressive diuretics Subjective Cardiovascular: Denies: chest pain Respiratory: Denies: shortness of breath Gastrointestinal/Abdominal: Denies: abdominal pain Genitourinary: Denies: burning Objective Last 24 Hour Vital Signs Date Time Temp Pulse Resp B/P (MAP) Pulse Ox O2 Delivery O2 Flow Rate FiO2 02/19/17 15:53 98.4 110 19 101/61 96 Non-Rebreather 15.0 02/19/17 15:17 114 20 95 Non-Rebreather 100 02/19/17 15:07 102 20 95 Non-Rebreather 15.0 100 02/19/17 12:00 121 02/19/17 11:41 98.5 121 18 128/75 97 Non-Rebreather 15.0 02/19/17 10:40 120 18 94 Non-Rebreather 100 02/19/17 10:33 117 18 94 Non-Rebreather 100 02/19/17 09:01 129/74 02/19/17 09:00 116 129/74 02/19/17 08:00 114 02/19/17 07:36 78.3 116 19 129/74 95 Non-Rebreather 15.0 02/19/17 07:10 115 18 93 Non-Rebreather 100 02/19/17 07:00 115 18 92 Non-Rebreather 100 02/19/17 04:00 106 02/19/17 04:00 97.7 100 20 123/78 94 Non-Rebreather 100 100 02/19/17 03:15 Non-Rebreather 100 02/19/17 03:15 Non-Rebreather 100 02/19/17 00:00 114 02/19/17 00:00 97 20 157/92 92 Non-Rebreather 100 97 02/18/17 23:39 112 18 92 Non-Rebreather 100 02/18/17 23:25 114 18 92 Non-Rebreather 100 02/18/17 20:20 114 160/104 02/18/17 20:00 122 02/18/17 20:00 98.1 100 20 160/100 Non-Rebreather 100 100 02/18/17 19:52 114 184/103 02/18/17 19:10 117 18 92 Non-Rebreather 100 02/18/17 19:10 Non-Rebreather 100 02/18/17 17:58 98 160/101 02/18/17 17:58 160/101 General Appearance: no apparent distress Neck: supple Cardiovascular: normal rate, regular rhythm Respiratory/Chest: lungs clear - anter Abdomen: normal bowel sounds, non tender, soft Extremities: non-tender, trace edema Intake and Output 02/19/17 02/20/17 19:00 07:00 Intake Total 520 ml Balance 520 ml Intake Oral 520 ml # Voids 3 Laboratory Tests Test 02/18/17 23:05 02/19/17 04:10 Vancomycin Level Trough 13.4 ug/mL (5.0-12.0) H White Blood Count 13.8 K/UL (4.8-10.8) H Red Blood Count 3.42 M/UL (4.20-5.40) L Hemoglobin 11.4 G/DL (12.0-16.0) L Hematocrit 35.1 % (37.0-47.0) L Mean Corpuscular Volume 103 FL (80-99) H Mean Corpuscular Hemoglobin 33.3 PG (27.0-31.0) H Mean Corpuscular Hemoglobin Concent 32.5 G/DL (32.0-36.0) Red Cell Distribution Width 12.7 % (11.6-14.8) Platelet Count 223 K/UL (150-450) Mean Platelet Volume 7.1 FL (6.5-10.1) Neutrophils (%) (Auto) 69.8 % (45.0-75.0) Lymphocytes (%) (Auto) 21.7 % (20.0-45.0) Monocytes (%) (Auto) 7.9 % (1.0-10.0) Eosinophils (%) (Auto) 0.3 % (0.0-3.0) Basophils (%) (Auto) 0.3 % (0.0-2.0) Sodium Level 134 MMOL/L (136-145) L Potassium Level 3.4 MMOL/L (3.5-5.1) L Chloride Level 98 MMOL/L (98-107) Carbon Dioxide Level 28 MMOL/L (21-32) Anion Gap 8 (5-15) Blood Urea Nitrogen 24 mg/dL (7-18) H Creatinine 0.8 MG/DL (0.55-1.30) Estimat Glomerular Filtration Rate mL/min (>60) Glucose Level 97 MG/DL (74-106) Calcium Level 9.7 MG/DL (8.5-10.1) JEFFERSON ROMEO Feb 19, 2017 17:52
[2017-02-19] MEDS: Lisinopril 2.5mg tab ORAL SCH (18:00)
[2017-02-19 20:00] VITALS: BP 144/83
--- NOTE | 2017-02-19 23:59 | General Progress Note ---
Assessment/Plan Status: unchanged Subjective Neurologic/Psychiatric: Reports: anxiety, depressed, emotional problems Allergies: Coded Allergies: TETRACYCLINE (Unverified Allergy, Unknown, 07/24/14) Objective Last 24 Hour Vital Signs Date Time Temp Pulse Resp B/P (MAP) Pulse Ox O2 Delivery O2 Flow Rate FiO2 02/19/17 23:10 115 20 94 Non-Rebreather 15.0 100 02/19/17 22:59 108 20 93 Non-Rebreather 15.0 100 02/19/17 20:31 117 144/83 02/19/17 20:00 97.0 117 20 144/83 95 Non-Rebreather 15.0 02/19/17 19:45 94 Non-Rebreather 15.0 100 02/19/17 19:45 Non-Rebreather 15.0 100 02/19/17 19:45 Non-Rebreather 15.0 100 02/19/17 19:45 Non-Rebreather 15.0 100 02/19/17 18:00 100/59 02/19/17 16:00 114 02/19/17 15:53 98.4 110 19 101/61 96 Non-Rebreather 15.0 02/19/17 15:17 114 20 95 Non-Rebreather 100 02/19/17 15:07 102 20 95 Non-Rebreather 15.0 100 02/19/17 12:00 121 02/19/17 11:41 98.5 121 18 128/75 97 Non-Rebreather 15.0 02/19/17 10:40 120 18 94 Non-Rebreather 100 02/19/17 10:33 117 18 94 Non-Rebreather 100 02/19/17 09:01 129/74 02/19/17 09:00 116 129/74 02/19/17 08:00 114 02/19/17 07:36 78.3 116 19 129/74 95 Non-Rebreather 15.0 02/19/17 07:10 115 18 93 Non-Rebreather 100 02/19/17 07:00 115 18 92 Non-Rebreather 100 02/19/17 04:00 106 02/19/17 04:00 97.7 100 20 123/78 94 Non-Rebreather 100 100 02/19/17 03:15 Non-Rebreather 100 02/19/17 03:15 Non-Rebreather 100 02/19/17 00:00 114 02/19/17 00:00 97 20 157/92 92 Non-Rebreather 100 97 Intake and Output 02/19/17 02/20/17 19:00 07:00 Intake Total 815 ml Balance 815 ml Intake Oral 705 ml IV Total 110 ml # Voids 5 Laboratory Tests 02/19/17 04:10: White Blood Count 13.8H, Red Blood Count 3.42L, Hemoglobin 11.4L, Hematocrit 35.1L, Mean Corpuscular Volume 103H, Mean Corpuscular Hemoglobin 33.3H, Mean Corpuscular Hemoglobin Concent 32.5, Red Cell Distribution Width 12.7, Platelet Count 223, Mean Platelet Volume 7.1, Neutrophils (%) (Auto) 69.8, Lymphocytes (% ) (Auto) 21.7, Monocytes (%) (Auto) 7.9, Eosinophils (%) (Auto) 0.3, Basophils ( %) (Auto) 0.3, Sodium Level 134L, Potassium Level 3.4L, Chloride Level 98, Carbon Dioxide Level 28, Anion Gap 8, Blood Urea Nitrogen 24H, Creatinine 0.8, Estimat Glomerular Filtration Rate , Glucose Level 97, Calcium Level 9.7 Height (Feet): 5 Height (Inches): 7.00 Weight (Pounds): 123 General Appearance: no apparent distress, alert, obese Neurologic: alert, oriented x 3, responsive, depressed affect Wan Stern M.D. Feb 19, 2017 23:59
[2017-02-20] VITALS: BP 141/82
[2017-02-20] MEDS: Morphine Sulfate 4mg/ml Inj IVP PRN ×3 (00:04→14:07)
[2017-02-20] MEDS: Vancomycin 1250mg/D5W 250ml IVPB SCH ×2 (00:04→23:12)
[2017-02-20] MEDS: Albuterol/Ipratropium 3ml neb HHN SCH ×6 (03:08→22:52)
[2017-02-20 04:00] VITALS: BP 110/73
[2017-02-20 07:40] LABS: BASOPHILS % (AUTO) 0.5 % (0.0-2.0); EOSINOPHILS % (AUTO) 0.7 % (0.0-3.0); HEMATOCRIT 33.2 % (37.0-47.0); HEMOGLOBIN 10.5 G/DL (12.0-16.0); MEAN CORPUSCULAR VOLUME 102 FL (80-99); NEUTROPHILS % (AUTO) 76.8 % (45.0-75.0); PLATELET COUNT 232 K/UL (150-450); RED BLOOD COUNT 3.25 M/UL (4.20-5.40); RED CELL DISTRIBUTION WIDTH 12.3 % (11.6-14.8); WHITE BLOOD COUNT 13.8 K/UL (4.8-10.8)
[2017-02-20 07:59] LABS: ALANINE AMINOTRANSFERASE 21 U/L (12-78); ALBUMIN 2.5 G/DL (3.4-5.0); ALBUMIN/GLOBULIN RATIO 0.6 (1.0-2.7); ALKALINE PHOSPHATASE 58 U/L (46-116); ANION GAP 8 (5-15); ASPARTATE AMINO TRANSFERASE 17 U/L (15-37); BILIRUBIN,TOTAL 0.5 MG/DL (0.2-1.0); BLOOD UREA NITROGEN 37 mg/dL (7-18); CALCIUM 9.2 MG/DL (8.5-10.1); CARBON DIOXIDE 29 MMOL/L (21-32); CHLORIDE 97 MMOL/L (98-107); CREATININE 1.1 MG/DL (0.55-1.30); PHOSPHORUS 4.8 MG/DL (2.5-4.9); POTASSIUM 3.5 MMOL/L (3.5-5.1); SODIUM 134 MMOL/L (136-145)
[2017-02-20 08:00] VITALS: BP 131/68
[2017-02-20] MEDS: Vancomycin oral 125mg/2.5ml ORAL SCH ×2 (08:47→17:42)
[2017-02-20] MEDS: Aspirin EC 81mg tab ORAL SCH (08:47)
[2017-02-20] MEDS: Heparin 5000 units/ml inj SUBQ SCH ×2 (08:47→20:26)
[2017-02-20] MEDS: LORazepam Inj 2mg/ml 1ml IV PRN ×2 (08:47→21:44)
[2017-02-20] MEDS: Lyrica 75mg cap ORAL SCH ×3 (08:48→17:42)
[2017-02-20] MEDS: Lisinopril 2.5mg tab ORAL SCH ×2 (08:49→17:43)
[2017-02-20] MEDS: Meropenem 1 GM in NS 110 ML IVPB SCH ×2 (08:49→20:24)
[2017-02-20] MEDS ORDERED: Solu-MEDROL 40mg Inj IVP SCH (09:00)
--- NOTE | 2017-02-20 10:51 | Pulmonology Progress Note ---
Assessment/Plan Problems: (1) Acute and chronic respiratory failure ([id number]) (2) COPD exacerbation (3) Pneumonia (4) Fibromyalgia (5) History of breast cancer (6) Limited mobility Assessment/Plan switch to Lasix drip chest PT keep same dose steroids keep in [place] check sputum cxr and bnp in am taper off steroids Subjective Interval Events: still on 100% NRM Allergies: Coded Allergies: TETRACYCLINE (Unverified Allergy, Unknown, 07/24/14) Objective Last 24 Hour Vital Signs Date Time Temp Pulse Resp B/P (MAP) Pulse Ox O2 Delivery O2 Flow Rate FiO2 02/20/17 08:49 131/68 02/20/17 08:48 104 131/68 02/20/17 08:00 101 02/20/17 08:00 97.1 104 22 131/68 95 Non-Rebreather 100 02/20/17 07:01 Non-Rebreather 15.0 100 02/20/17 07:00 110 20 94 Non-Rebreather 15.0 100 02/20/17 06:59 Non-Rebreather 15.0 100 02/20/17 06:58 94 Non-Rebreather 15.0 100 02/20/17 05:22 97.0 02/20/17 04:00 97.0 112 19 110/73 96 Non-Rebreather 15.0 02/20/17 04:00 104 02/20/17 03:18 101 18 95 Non-Rebreather 15.0 100 02/20/17 03:08 94 18 95 Non-Rebreather 15.0 100 02/20/17 00:00 97.2 118 20 141/82 95 Non-Rebreather 15.0 02/20/17 00:00 125 02/19/17 23:10 115 20 94 Non-Rebreather 15.0 100 02/19/17 22:59 108 20 93 Non-Rebreather 15.0 100 02/19/17 20:31 117 144/83 02/19/17 20:00 97.0 117 20 144/83 95 Non-Rebreather 15.0 02/19/17 20:00 125 02/19/17 19:45 94 Non-Rebreather 15.0 100 02/19/17 19:45 Non-Rebreather 15.0 100 02/19/17 19:45 Non-Rebreather 15.0 100 02/19/17 19:45 Non-Rebreather 15.0 100 02/19/17 18:00 100/59 02/19/17 16:00 114 02/19/17 15:53 98.4 110 19 101/61 96 Non-Rebreather 15.0 02/19/17 15:17 114 20 95 Non-Rebreather 100 02/19/17 15:07 102 20 95 Non-Rebreather 15.0 100 02/19/17 12:00 121 02/19/17 11:41 98.5 121 18 128/75 97 Non-Rebreather 15.0 Objective still dyspnic, with spells of cough General Appearance: no acute distress Respiratory/Chest: chest wall non-tender, lungs clear Breasts: no masses Cardiovascular: normal peripheral pulses Abdomen: normal bowel sounds, soft, non tender Genitourinary: normal external genitalia Extremities: no cyanosis Skin: no rash Lymphatic: no neck adenopathy Microbiology Date/Time Source Procedure Growth Status 02/19/17 18:40 Nasal Nares Right Influenza Types A,B Antigen (MONA) - Final Complete Laboratory Tests 02/20/17 06:20: White Blood Count 13.8H, Red Blood Count 3.25L, Hemoglobin 10.5L, Hematocrit 33.2L, Mean Corpuscular Volume 102H, Mean Corpuscular Hemoglobin 32.3H, Mean Corpuscular Hemoglobin Concent 31.5L, Red Cell Distribution Width 12.3, Platelet Count 232, Mean Platelet Volume 7.2, Neutrophils (%) (Auto) 76.8H, Lymphocytes (%) (Auto) 17.0L, Monocytes (%) (Auto) 5.0, Eosinophils (%) (Auto) 0.7, Basophils (%) (Auto) 0.5, Erythrocyte Sedimentation Rate 90H, Sodium Level 134L, Potassium Level 3.5, Chloride Level 97L, Carbon Dioxide Level 29, Anion Gap 8, Blood Urea Nitrogen 37H, Creatinine 1.1, Estimat Glomerular Filtration Rate , Glucose Level 107H, Calcium Level 9.2, Phosphorus Level 4.8, Magnesium Level 1.7L, Total Bilirubin 0.5, Aspartate Amino Transf (AST/SGOT) 17, Alanine Aminotransferase (ALT/SGPT) 21, Alkaline Phosphatase 58, C-Reactive Protein, Quantitative 13.0H, Total Protein 6.7, Albumin 2.5L, Globulin 4.2, Albumin/ Globulin Ratio 0.6L Current Medications Medications (Trade) Dose Ordered Sig/Wilner Route PRN Reason Start Time Stop Time Status Last Admin Dose Admin Acetaminophen (Tylenol) 650 mg Q4H PRN ORAL FEVER 02/15/17 22:45 03/17/17 22:44 Acetaminophen/ Hydrocodone Bitart ([place] 5/325) 1 tab Q6H PRN ORAL Moderate Pain (Pain Scale 4-6) 02/16/17 12:00 02/23/17 11:59 02/17/17 05:00 Albuterol/ Ipratropium (DuoNeb 0.5-3(2.5)mg/3ml) 3 ml Q4HRT HHN 02/16/17 11:00 02/21/17 10:59 02/20/17 03:08 Amlodipine Besylate (Norvasc) 2.5 mg BIDPRN PRN ORAL sbp greater than 160 02/17/17 16:45 03/19/17 16:44 02/18/17 19:52 Aspirin (Ecotrin) 81 mg DAILY ORAL 02/17/17 09:00 03/19/17 08:59 02/20/17 08:47 Carvedilol (Coreg) 3.125 mg Q12HR ORAL 02/16/17 12:00 03/18/17 11:59 02/20/17 08:48 Dextrose (Dextrose 50%) STAT PRN IV Hypoglycemia 02/15/17 22:45 03/17/17 22:44 Escitalopram Oxalate (Lexapro) 10 mg DAILY ORAL 02/18/17 09:00 03/20/17 08:59 02/20/17 08:49 Furosemide 100 mg/ Dextrose 110 ml @ 11 mls/hr Q10H IV 02/20/17 10:45 03/22/17 10:44 UNV Heparin Sodium (Porcine) (Heparin 5000 units/ml) 5,000 units EVERY 12 HOURS SUBQ 02/16/17 09:00 03/18/17 08:59 02/18/17 09:10 Hydralazine HCl (Apresoline) 10 mg Q8H PRN IV SBP > 160, SECOND LINE AGENT 02/17/17 17:00 03/19/17 14:29 Lidocaine (Xylocaine 1% MPF 5ml) 10 ml Q4H PRN HHN cough 02/17/17 10:15 03/19/17 10:14 Lisinopril (Zestril) 5 mg BID ORAL 02/19/17 18:00 03/21/17 17:59 02/20/17 08:49 Lorazepam (Ativan 2mg/ml 1ml) 2 mg EVERY 2 HOURS PRN IV For Anxiety 02/15/17 22:45 02/22/17 22:44 02/20/17 08:47 Meropenem 1 gm/ Sodium Chloride 110 ml @ 220 mls/hr Q12HR IVPB 02/18/17 21:00 02/23/17 20:59 02/20/17 08:49 Methadone HCl (Methadone HCl) 5 mg EVERY 12 HOURS ORAL 02/16/17 21:00 02/23/17 20:59 02/20/17 08:48 Methylprednisolone Sodium Succinate (Solu-MEDROL) 40 mg DAILY IVP 02/20/17 09:00 03/22/17 08:59 02/20/17 08:47 Morphine Sulfate (Morphine Sulfate) 4 mg EVERY 4 HOURS PRN IVP Severe Pain (Pain Scale 7-10) 02/15/17 22:45 02/22/17 22:44 02/20/17 04:52 Ondansetron HCl (Zofran) 4 mg Q6H PRN IVP Nausea & Vomiting 02/15/17 22:45 03/17/17 22:44 Polyethylene Glycol (Miralax) 17 gm DAILYPRN PRN ORAL Constipation 02/15/17 22:45 03/17/17 22:44 02/17/17 04:59 Pravastatin Sodium (Pravachol) 20 mg BEDTIME ORAL 02/16/17 21:00 03/18/17 20:59 02/19/17 20:31 Pregabalin (Lyrica) 150 mg THREE TIMES A DAY ORAL 02/16/17 13:00 03/18/17 12:59 02/20/17 08:48 Promethazine HCl/ Codeine (Phenergan with Codeine) 5 ml Q4H PRN ORAL For Cough 02/16/17 10:45 03/18/17 10:44 02/18/17 09:07 Vancomycin HCl (Vanco rx to dose) 1 ea DAILY PRN MISC PER RX PROTOCOL 02/16/17 07:45 03/18/17 07:44 Vancomycin HCl (Vancomycin) 125 mg BID ORAL 02/16/17 13:00 02/23/17 12:59 02/20/17 08:47 Vancomycin HCl/ Dextrose 250 ml @ 166.667 mls/hr Q24H IVPB 02/15/17 23:30 02/20/17 23:29 02/20/17 00:04 TWIN FONTANEZ Feb 20, 2017 10:51
--- NOTE | 2017-02-20 11:39 | General Progress Note ---
Assessment/Plan Status: stable Assessment/Plan anxiety d/o' -cont current meds -provided ro/st Subjective Neurologic/Psychiatric: Reports: anxiety, depressed, emotional problems Allergies: Coded Allergies: TETRACYCLINE (Unverified Allergy, Unknown, 07/24/14) Subjective the pt is less anxious today med seeking Objective Last 24 Hour Vital Signs Date Time Temp Pulse Resp B/P (MAP) Pulse Ox O2 Delivery O2 Flow Rate FiO2 02/20/17 08:49 131/68 02/20/17 08:48 104 131/68 02/20/17 08:00 101 02/20/17 08:00 97.1 104 22 131/68 95 Non-Rebreather 100 02/20/17 07:01 Non-Rebreather 15.0 100 02/20/17 07:00 110 20 94 Non-Rebreather 15.0 100 02/20/17 06:59 Non-Rebreather 15.0 100 02/20/17 06:58 94 Non-Rebreather 15.0 100 02/20/17 05:22 97.0 02/20/17 04:00 97.0 112 19 110/73 96 Non-Rebreather 15.0 02/20/17 04:00 104 02/20/17 03:18 101 18 95 Non-Rebreather 15.0 100 02/20/17 03:08 94 18 95 Non-Rebreather 15.0 100 02/20/17 00:00 97.2 118 20 141/82 95 Non-Rebreather 15.0 02/20/17 00:00 125 02/19/17 23:10 115 20 94 Non-Rebreather 15.0 100 02/19/17 22:59 108 20 93 Non-Rebreather 15.0 100 02/19/17 20:31 117 144/83 02/19/17 20:00 97.0 117 20 144/83 95 Non-Rebreather 15.0 02/19/17 20:00 125 02/19/17 19:45 94 Non-Rebreather 15.0 100 02/19/17 19:45 Non-Rebreather 15.0 100 02/19/17 19:45 Non-Rebreather 15.0 100 02/19/17 19:45 Non-Rebreather 15.0 100 02/19/17 18:00 100/59 02/19/17 16:00 114 02/19/17 15:53 98.4 110 19 101/61 96 Non-Rebreather 15.0 02/19/17 15:17 114 20 95 Non-Rebreather 100 02/19/17 15:07 102 20 95 Non-Rebreather 15.0 100 02/19/17 12:00 121 02/19/17 11:41 98.5 121 18 128/75 97 Non-Rebreather 15.0 Laboratory Tests 02/20/17 06:20: White Blood Count 13.8H, Red Blood Count 3.25L, Hemoglobin 10.5L, Hematocrit 33.2L, Mean Corpuscular Volume 102H, Mean Corpuscular Hemoglobin 32.3H, Mean Corpuscular Hemoglobin Concent 31.5L, Red Cell Distribution Width 12.3, Platelet Count 232, Mean Platelet Volume 7.2, Neutrophils (%) (Auto) 76.8H, Lymphocytes (%) (Auto) 17.0L, Monocytes (%) (Auto) 5.0, Eosinophils (%) (Auto) 0.7, Basophils (%) (Auto) 0.5, Erythrocyte Sedimentation Rate 90H, Sodium Level 134L, Potassium Level 3.5, Chloride Level 97L, Carbon Dioxide Level 29, Anion Gap 8, Blood Urea Nitrogen 37H, Creatinine 1.1, Estimat Glomerular Filtration Rate , Glucose Level 107H, Calcium Level 9.2, Phosphorus Level 4.8, Magnesium Level 1.7L, Total Bilirubin 0.5, Aspartate Amino Transf (AST/SGOT) 17, Alanine Aminotransferase (ALT/SGPT) 21, Alkaline Phosphatase 58, C-Reactive Protein, Quantitative 13.0H, Total Protein 6.7, Albumin 2.5L, Globulin 4.2, Albumin/ Globulin Ratio 0.6L Height (Feet): 5 Height (Inches): 7.00 Weight (Pounds): 123 General Appearance: no apparent distress, alert, obese Neurologic: alert, oriented x 3, responsive, depressed affect Wan Stern M.D. Feb 20, 2017 11:39
[2017-02-20 12:06] VITALS: BP 134/72
--- NOTE | 2017-02-20 12:57 | Diagnostic Imaging Report ---
Indication: Dyspnea Comparison: 02/18/17 A single view chest radiograph was obtained. Findings: Heart is enlarged. There is a air space and interstitial opacities especially within the right lung. Suspected element of interstitial edema. Superimposed pneumonia not excluded. Please correlate clinically. Surgical clips in the right axilla again noted. Bones are osteopenic. Impression: Suspect CHF. Asymmetric pulmonary edema versus infiltrate predominantly in the right lung. Please correlate clinically.
--- NOTE | 2017-02-20 14:18 | Cardiology Progress Note ---
Assessment/Plan Assessment/Plan 1. Respiratory failure. 2. Chronic obstructive pulmonary disease exacerbation. 3. Questionable pneumonia. 4. History of mitral regurgitation of significant degree. 5. History of subdural hematomas and intracranial hemorrhage. 6. History of breast cancer. 7. Anemia. 8. History of Clostridium difficile colitis. 9. History of anxiety. 10. Sinus tachycardia secondary to above. 11. Htn 12. CHF acute diastolic continue pulm rxn acei were decreased to allow room for trial of diuretic may need to resum higer dose if bp incerased on lower diuretic dose dc ivf tele reviewed labs reviewed cr increased cxr decrease diuretics Subjective Cardiovascular: Denies: chest pain Respiratory: Reports: cough, shortness of breath Gastrointestinal/Abdominal: Denies: abdominal pain Genitourinary: Denies: burning Subjective little better Objective Last 24 Hour Vital Signs Date Time Temp Pulse Resp B/P (MAP) Pulse Ox O2 Delivery O2 Flow Rate FiO2 02/20/17 12:06 97.3 117 21 134/72 92 Non-Rebreather 100 02/20/17 11:58 Non-Rebreather 15.0 100 02/20/17 11:57 115 20 91 Non-Rebreather 15.0 100 02/20/17 08:49 131/68 02/20/17 08:48 104 131/68 02/20/17 08:00 101 02/20/17 08:00 97.1 104 22 131/68 95 Non-Rebreather 100 02/20/17 07:01 Non-Rebreather 15.0 100 02/20/17 07:00 110 20 94 Non-Rebreather 15.0 100 02/20/17 06:59 Non-Rebreather 15.0 100 02/20/17 06:58 94 Non-Rebreather 15.0 100 02/20/17 05:22 97.0 02/20/17 04:00 97.0 112 19 110/73 96 Non-Rebreather 15.0 02/20/17 04:00 104 02/20/17 03:18 101 18 95 Non-Rebreather 15.0 100 02/20/17 03:08 94 18 95 Non-Rebreather 15.0 100 02/20/17 00:00 97.2 118 20 141/82 95 Non-Rebreather 15.0 02/20/17 00:00 125 02/19/17 23:10 115 20 94 Non-Rebreather 15.0 100 02/19/17 22:59 108 20 93 Non-Rebreather 15.0 100 02/19/17 20:31 117 144/83 02/19/17 20:00 97.0 117 20 144/83 95 Non-Rebreather 15.0 02/19/17 20:00 125 02/19/17 19:45 94 Non-Rebreather 15.0 100 02/19/17 19:45 Non-Rebreather 15.0 100 02/19/17 19:45 Non-Rebreather 15.0 100 02/19/17 19:45 Non-Rebreather 15.0 100 02/19/17 18:00 100/59 02/19/17 16:00 114 02/19/17 15:53 98.4 110 19 101/61 96 Non-Rebreather 15.0 02/19/17 15:17 114 20 95 Non-Rebreather 100 02/19/17 15:07 102 20 95 Non-Rebreather 15.0 100 General Appearance: alert Neck: supple Cardiovascular: irregularly irregular Respiratory/Chest: decreased breath sounds, expiratory wheezing Abdomen: normal bowel sounds, non tender, soft Extremities: no swelling Intake and Output 02/20/17 02/21/17 19:00 07:00 Intake Total 220 ml Balance 220 ml Intake Oral 220 ml # Voids 4 Laboratory Tests Test 02/20/17 06:20 White Blood Count 13.8 K/UL (4.8-10.8) H Red Blood Count 3.25 M/UL (4.20-5.40) L Hemoglobin 10.5 G/DL (12.0-16.0) L Hematocrit 33.2 % (37.0-47.0) L Mean Corpuscular Volume 102 FL (80-99) H Mean Corpuscular Hemoglobin 32.3 PG (27.0-31.0) H Mean Corpuscular Hemoglobin Concent 31.5 G/DL (32.0-36.0) L Red Cell Distribution Width 12.3 % (11.6-14.8) Platelet Count 232 K/UL (150-450) Mean Platelet Volume 7.2 FL (6.5-10.1) Neutrophils (%) (Auto) 76.8 % (45.0-75.0) H Lymphocytes (%) (Auto) 17.0 % (20.0-45.0) L Monocytes (%) (Auto) 5.0 % (1.0-10.0) Eosinophils (%) (Auto) 0.7 % (0.0-3.0) Basophils (%) (Auto) 0.5 % (0.0-2.0) Erythrocyte Sedimentation Rate 90 MM/HR (0-30) H Sodium Level 134 MMOL/L (136-145) L Potassium Level 3.5 MMOL/L (3.5-5.1) Chloride Level 97 MMOL/L (98-107) L Carbon Dioxide Level 29 MMOL/L (21-32) Anion Gap 8 (5-15) Blood Urea Nitrogen 37 mg/dL (7-18) H Creatinine 1.1 MG/DL (0.55-1.30) Estimat Glomerular Filtration Rate mL/min (>60) Glucose Level 107 MG/DL (74-106) H Calcium Level 9.2 MG/DL (8.5-10.1) Phosphorus Level 4.8 MG/DL (2.5-4.9) Magnesium Level 1.7 MG/DL (1.8-2.4) L Total Bilirubin 0.5 MG/DL (0.2-1.0) Aspartate Amino Transf (AST/SGOT) 17 U/L (15-37) Alanine Aminotransferase (ALT/SGPT) 21 U/L (12-78) Alkaline Phosphatase 58 U/L (46-116) C-Reactive Protein, Quantitative 13.0 mg/dL (0.00-0.90) H Total Protein 6.7 G/DL (6.4-8.2) Albumin 2.5 G/DL (3.4-5.0) L Globulin 4.2 g/dL Albumin/Globulin Ratio 0.6 (1.0-2.7) L Microbiology Date/Time Source Procedure Growth Status 02/19/17 18:40 Nasal Nares Right Influenza Types A,B Antigen (MONA) - Final Complete JEFFERSON ROMEO Feb 20, 2017 14:18
--- NOTE | 2017-02-20 15:51 | Infectious Diseases Prog Note ---
Assessment/Plan Assessment/Plan Abx: IV Vanco 02/15- Cefepime 02/15-02/18 Meropenem 02/18- Assesment: Acute hypoxic resp failure, - combination of COPD exacerbation and PNA; worsenened 02/18 -venous duplex 02/16no DVT PNA; worsening- r/o MDRO, r/o fungal pnuemonia -CXR 02/20:There is a air space and interstitial opacities especially within the right lung. Suspected element of interstitial edema. Superimposed pneumonia not excluded. CXR 02/18: Increasing consolidation in the right mid and lower lung, over one day. Possibly improving consolidation and/or pleural fluid on the left -CXR 02/17: There is somewhat decreased but persistent and still extensive consolidation in the right mid and lower lung. Consolidation, atelectasis, and pleural fluid at the left lung base persists and are probably unchanged, -CXR: Limited evaluation due to significant degree of soft tissue attenuation. Suspect pneumonia at the right lung base. -sp cx ordered not collected yet Leukocytosis, mild (on steroids)- worsening Afebrile COPD on home O2 Hx of Cdiff DM2 Chronic abd pain hx of MRSA bacteremia 07/2015 fibromyalgia, HTN, HLD, R breast cancer,Tobacco abuse (stopped 4 years ago), Anxiety, AOCD Plan: -Continue Meropenem #3 (abx d#10/18-) given worsening resp status -obtain sp cx if possible -Continue IV Vancomycin #10/18- -f/u Cocci ab and Cr Ag serum -continue prophylatic PO Vancomycin #5 given prior hx of Cdiff and current abx treatment (continue while on abx) -F/u cultures -Monitor CBC/BMP, temperatures -Aspiration precautions Thank you for this consultation. Will continue to follow along with you. Discussed with RN and caregiver at bedside.. Subjective Allergies: Coded Allergies: TETRACYCLINE (Unverified Allergy, Unknown, 07/24/14) Subjective afebrile, VSS remains on NRB 15L, FIo2 100% leukocytosis stable sputum cx unable to be collected. Objective Vital Signs Last 24 Hour Vital Signs Date Time Temp Pulse Resp B/P (MAP) Pulse Ox O2 Delivery O2 Flow Rate FiO2 02/20/17 12:06 97.3 117 21 134/72 92 Non-Rebreather 100 02/20/17 12:00 118 02/20/17 11:58 Non-Rebreather 15.0 100 02/20/17 11:57 115 20 91 Non-Rebreather 15.0 100 02/20/17 08:49 131/68 02/20/17 08:48 104 131/68 02/20/17 08:00 101 02/20/17 08:00 97.1 104 22 131/68 95 Non-Rebreather 100 02/20/17 07:01 Non-Rebreather 15.0 100 02/20/17 07:00 110 20 94 Non-Rebreather 15.0 100 02/20/17 06:59 Non-Rebreather 15.0 100 02/20/17 06:58 94 Non-Rebreather 15.0 100 02/20/17 05:22 97.0 02/20/17 04:00 97.0 112 19 110/73 96 Non-Rebreather 15.0 02/20/17 04:00 104 02/20/17 03:18 101 18 95 Non-Rebreather 15.0 100 02/20/17 03:08 94 18 95 Non-Rebreather 15.0 100 02/20/17 00:00 97.2 118 20 141/82 95 Non-Rebreather 15.0 02/20/17 00:00 125 02/19/17 23:10 115 20 94 Non-Rebreather 15.0 100 02/19/17 22:59 108 20 93 Non-Rebreather 15.0 100 02/19/17 20:31 117 144/83 02/19/17 20:00 97.0 117 20 144/83 95 Non-Rebreather 15.0 02/19/17 20:00 125 02/19/17 19:45 94 Non-Rebreather 15.0 100 02/19/17 19:45 Non-Rebreather 15.0 100 02/19/17 19:45 Non-Rebreather 15.0 100 02/19/17 19:45 Non-Rebreather 15.0 100 02/19/17 18:00 100/59 02/19/17 16:00 114 02/19/17 15:53 98.4 110 19 101/61 96 Non-Rebreather 15.0 Height (Feet): 5 Height (Inches): 7.00 Weight (Pounds): 123 Objective General Appearance: lethargic, NRB mask HEENT: PERRL, no oral lesions, atraumatic head Neck: supple Respiratory: scattered wheezing Cardiovascular: regular rate, rhythmm, no murmurs Gastrointestinal: normal inspection, non tender, no mass, non-distended Musculoskeletal: back normal, normal range of motion Skin: no lesions or rashes Microbiology Date/Time Source Procedure Growth Status 02/19/17 18:40 Nasal Nares Right Influenza Types A,B Antigen (MONA) - Final Complete Laboratory Tests Test 02/20/17 06:20 White Blood Count 13.8 K/UL (4.8-10.8) H Red Blood Count 3.25 M/UL (4.20-5.40) L Hemoglobin 10.5 G/DL (12.0-16.0) L Hematocrit 33.2 % (37.0-47.0) L Mean Corpuscular Volume 102 FL (80-99) H Mean Corpuscular Hemoglobin 32.3 PG (27.0-31.0) H Mean Corpuscular Hemoglobin Concent 31.5 G/DL (32.0-36.0) L Red Cell Distribution Width 12.3 % (11.6-14.8) Platelet Count 232 K/UL (150-450) Mean Platelet Volume 7.2 FL (6.5-10.1) Neutrophils (%) (Auto) 76.8 % (45.0-75.0) H Lymphocytes (%) (Auto) 17.0 % (20.0-45.0) L Monocytes (%) (Auto) 5.0 % (1.0-10.0) Eosinophils (%) (Auto) 0.7 % (0.0-3.0) Basophils (%) (Auto) 0.5 % (0.0-2.0) Erythrocyte Sedimentation Rate 90 MM/HR (0-30) H Sodium Level 134 MMOL/L (136-145) L Potassium Level 3.5 MMOL/L (3.5-5.1) Chloride Level 97 MMOL/L (98-107) L Carbon Dioxide Level 29 MMOL/L (21-32) Anion Gap 8 (5-15) Blood Urea Nitrogen 37 mg/dL (7-18) H Creatinine 1.1 MG/DL (0.55-1.30) Estimat Glomerular Filtration Rate mL/min (>60) Glucose Level 107 MG/DL (74-106) H Calcium Level 9.2 MG/DL (8.5-10.1) Phosphorus Level 4.8 MG/DL (2.5-4.9) Magnesium Level 1.7 MG/DL (1.8-2.4) L Total Bilirubin 0.5 MG/DL (0.2-1.0) Aspartate Amino Transf (AST/SGOT) 17 U/L (15-37) Alanine Aminotransferase (ALT/SGPT) 21 U/L (12-78) Alkaline Phosphatase 58 U/L (46-116) C-Reactive Protein, Quantitative 13.0 mg/dL (0.00-0.90) H Total Protein 6.7 G/DL (6.4-8.2) Albumin 2.5 G/DL (3.4-5.0) L Globulin 4.2 g/dL Albumin/Globulin Ratio 0.6 (1.0-2.7) L Current Medications Medications (Trade) Dose Ordered Sig/Wilner Route PRN Reason Start Time Stop Time Status Last Admin Dose Admin Acetaminophen (Tylenol) 650 mg Q4H PRN ORAL FEVER 02/15/17 22:45 03/17/17 22:44 Acetaminophen/ Hydrocodone Bitart ([place] 5/325) 1 tab Q6H PRN ORAL Moderate Pain (Pain Scale 4-6) 02/16/17 12:00 02/23/17 11:59 02/17/17 05:00 Albuterol/ Ipratropium (DuoNeb 0.5-3(2.5)mg/3ml) 3 ml Q4HRT HHN 02/16/17 11:00 02/21/17 10:59 02/20/17 03:08 Amlodipine Besylate (Norvasc) 2.5 mg BIDPRN PRN ORAL sbp greater than 160 02/17/17 16:45 03/19/17 16:44 02/18/17 19:52 Aspirin (Ecotrin) 81 mg DAILY ORAL 02/17/17 09:00 03/19/17 08:59 02/20/17 08:47 Carvedilol (Coreg) 3.125 mg Q12HR ORAL 02/16/17 12:00 03/18/17 11:59 02/20/17 08:48 Dextrose (Dextrose 50%) STAT PRN IV Hypoglycemia 02/15/17 22:45 03/17/17 22:44 Escitalopram Oxalate (Lexapro) 10 mg DAILY ORAL 02/18/17 09:00 03/20/17 08:59 02/20/17 08:49 Furosemide 100 mg/ Dextrose 100 ml @ 10 mls/hr Q10H IV 02/20/17 12:00 03/22/17 11:59 02/20/17 12:28 Heparin Sodium (Porcine) (Heparin 5000 units/ml) 5,000 units EVERY 12 HOURS SUBQ 02/16/17 09:00 03/18/17 08:59 02/18/17 09:10 Hydralazine HCl (Apresoline) 10 mg Q8H PRN IV SBP > 160, SECOND LINE [employer] 02/17/17 17:00 03/19/17 14:29 Lidocaine (Xylocaine 1% MPF 5ml) 10 ml Q4H PRN HHN cough 02/17/17 10:15 03/19/17 10:14 Lisinopril (Zestril) 5 mg BID ORAL 02/19/17 18:00 03/21/17 17:59 02/20/17 08:49 Lorazepam (Ativan 2mg/ml 1ml) 2 mg EVERY 2 HOURS PRN IV For Anxiety 02/15/17 22:45 02/22/17 22:44 02/20/17 08:47 Meropenem 1 gm/ Sodium Chloride 110 ml @ 220 mls/hr Q12HR IVPB 02/18/17 21:00 02/23/17 20:59 02/20/17 08:49 Methadone HCl (Methadone HCl) 5 mg EVERY 12 HOURS ORAL 02/16/17 21:00 02/23/17 20:59 02/20/17 08:48 Methylprednisolone Sodium Succinate (Solu-MEDROL) 20 mg DAILY IVP 02/21/17 09:00 03/23/17 08:59 Morphine Sulfate (Morphine Sulfate) 4 mg EVERY 4 HOURS PRN IVP Severe Pain (Pain Scale 7-10) 02/15/17 22:45 02/22/17 22:44 02/20/17 14:07 Ondansetron HCl (Zofran) 4 mg Q6H PRN IVP Nausea & Vomiting 02/15/17 22:45 03/17/17 22:44 Polyethylene Glycol (Miralax) 17 gm DAILYPRN PRN ORAL Constipation 02/15/17 22:45 03/17/17 22:44 02/17/17 04:59 Pravastatin Sodium (Pravachol) 20 mg BEDTIME ORAL 02/16/17 21:00 03/18/17 20:59 02/19/17 20:31 Pregabalin (Lyrica) 150 mg THREE TIMES A DAY ORAL 02/16/17 13:00 03/18/17 12:59 02/20/17 12:29 Promethazine HCl/ Codeine (Phenergan with Codeine) 5 ml Q4H PRN ORAL For Cough 02/16/17 10:45 03/18/17 10:44 02/18/17 09:07 Vancomycin HCl (Vanco rx to dose) 1 ea DAILY PRN MISC PER RX PROTOCOL 02/16/17 07:45 03/18/17 07:44 Vancomycin HCl (Vancomycin) 125 mg BID ORAL 02/16/17 13:00 02/23/17 12:59 02/20/17 08:47 Vancomycin HCl/ Dextrose 250 ml @ 166.667 mls/hr Q24H IVPB 02/15/17 23:30 02/20/17 23:29 02/20/17 00:04 Alyse Traylor M.D. Feb 20, 2017 15:51
[2017-02-20 16:01] VITALS: BP 110/62
--- NOTE | 2017-02-20 17:54 | Internal Med Progress Note ---
Subjective Physician Name Jun Cedillo Attending Physician Jun Cedillo MD Current Medications Medications (Trade) Dose Ordered Sig/Wilner Route PRN Reason Start Time Stop Time Status Last Admin Dose Admin Acetaminophen (Tylenol) 650 mg Q4H PRN ORAL FEVER 02/15/17 22:45 03/17/17 22:44 Acetaminophen/ Hydrocodone Bitart ([place] 5/325) 1 tab Q6H PRN ORAL Moderate Pain (Pain Scale 4-6) 02/16/17 12:00 02/23/17 11:59 02/17/17 05:00 Albuterol/ Ipratropium (DuoNeb 0.5-3(2.5)mg/3ml) 3 ml Q4HRT HHN 02/16/17 11:00 02/21/17 10:59 02/20/17 16:21 Amlodipine Besylate (Norvasc) 2.5 mg BIDPRN PRN ORAL sbp greater than 160 02/17/17 16:45 03/19/17 16:44 02/18/17 19:52 Aspirin (Ecotrin) 81 mg DAILY ORAL 02/17/17 09:00 03/19/17 08:59 02/20/17 08:47 Carvedilol (Coreg) 3.125 mg Q12HR ORAL 02/16/17 12:00 03/18/17 11:59 02/20/17 08:48 Dextrose (Dextrose 50%) STAT PRN IV Hypoglycemia 02/15/17 22:45 03/17/17 22:44 Escitalopram Oxalate (Lexapro) 10 mg DAILY ORAL 02/18/17 09:00 03/20/17 08:59 02/20/17 08:49 Furosemide 100 mg/ Dextrose 100 ml @ 10 mls/hr Q10H IV 02/20/17 12:00 03/22/17 11:59 02/20/17 12:28 Heparin Sodium (Porcine) (Heparin 5000 units/ml) 5,000 units EVERY 12 HOURS SUBQ 02/16/17 09:00 03/18/17 08:59 02/18/17 09:10 Hydralazine HCl (Apresoline) 10 mg Q8H PRN IV SBP > 160, SECOND LINE AGENT 02/17/17 17:00 03/19/17 14:29 Lidocaine (Xylocaine 1% MPF 5ml) 10 ml Q4H PRN HHN cough 02/17/17 10:15 03/19/17 10:14 Lisinopril (Zestril) 5 mg BID ORAL 02/19/17 18:00 03/21/17 17:59 02/20/17 17:43 Lorazepam (Ativan 2mg/ml 1ml) 2 mg EVERY 2 HOURS PRN IV For Anxiety 02/15/17 22:45 02/22/17 22:44 02/20/17 08:47 Meropenem 1 gm/ Sodium Chloride 110 ml @ 220 mls/hr Q12HR IVPB 02/18/17 21:00 02/23/17 20:59 02/20/17 08:49 Methadone HCl (Methadone HCl) 5 mg EVERY 12 HOURS ORAL 02/16/17 21:00 02/23/17 20:59 02/20/17 08:48 Methylprednisolone Sodium Succinate (Solu-MEDROL) 20 mg DAILY IVP 02/21/17 09:00 03/23/17 08:59 Morphine Sulfate (Morphine Sulfate) 4 mg EVERY 4 HOURS PRN IVP Severe Pain (Pain Scale 7-10) 02/15/17 22:45 02/22/17 22:44 02/20/17 14:07 Ondansetron HCl (Zofran) 4 mg Q6H PRN IVP Nausea & Vomiting 02/15/17 22:45 03/17/17 22:44 Polyethylene Glycol (Miralax) 17 gm DAILYPRN PRN ORAL Constipation 02/15/17 22:45 03/17/17 22:44 02/17/17 04:59 Pravastatin Sodium (Pravachol) 20 mg BEDTIME ORAL 02/16/17 21:00 03/18/17 20:59 02/19/17 20:31 Pregabalin (Lyrica) 150 mg THREE TIMES A DAY ORAL 02/16/17 13:00 03/18/17 12:59 02/20/17 17:42 Promethazine HCl/ Codeine (Phenergan with Codeine) 5 ml Q4H PRN ORAL For Cough 02/16/17 10:45 03/18/17 10:44 02/18/17 09:07 Vancomycin HCl (Vanco rx to dose) 1 ea DAILY PRN MISC PER RX PROTOCOL 02/16/17 07:45 03/18/17 07:44 Vancomycin HCl (Vancomycin) 125 mg BID ORAL 02/16/17 13:00 02/23/17 12:59 02/20/17 17:42 Vancomycin HCl/ Dextrose 250 ml @ 166.667 mls/hr Q24H IVPB 02/15/17 23:30 02/25/17 23:29 02/20/17 00:04 Allergies: Coded Allergies: TETRACYCLINE (Unverified Allergy, Unknown, 07/24/14) Subjective awake, alert, responsive on Venti mask O2, C/O constipation Objective Last Vital Signs Date Time Temp Pulse Resp B/P (MAP) Pulse Ox O2 Delivery O2 Flow Rate FiO2 02/20/17 17:43 110/62 02/20/17 16:31 99 18 95 Non-Rebreather 15.0 100 02/20/17 16:01 97.6 Laboratory Tests Test 02/20/17 06:20 White Blood Count 13.8 K/UL (4.8-10.8) H Red Blood Count 3.25 M/UL (4.20-5.40) L Hemoglobin 10.5 G/DL (12.0-16.0) L Hematocrit 33.2 % (37.0-47.0) L Mean Corpuscular Volume 102 FL (80-99) H Mean Corpuscular Hemoglobin 32.3 PG (27.0-31.0) H Mean Corpuscular Hemoglobin Concent 31.5 G/DL (32.0-36.0) L Red Cell Distribution Width 12.3 % (11.6-14.8) Platelet Count 232 K/UL (150-450) Mean Platelet Volume 7.2 FL (6.5-10.1) Neutrophils (%) (Auto) 76.8 % (45.0-75.0) H Lymphocytes (%) (Auto) 17.0 % (20.0-45.0) L Monocytes (%) (Auto) 5.0 % (1.0-10.0) Eosinophils (%) (Auto) 0.7 % (0.0-3.0) Basophils (%) (Auto) 0.5 % (0.0-2.0) Erythrocyte Sedimentation Rate 90 MM/HR (0-30) H Sodium Level 134 MMOL/L (136-145) L Potassium Level 3.5 MMOL/L (3.5-5.1) Chloride Level 97 MMOL/L (98-107) L Carbon Dioxide Level 29 MMOL/L (21-32) Anion Gap 8 (5-15) Blood Urea Nitrogen 37 mg/dL (7-18) H Creatinine 1.1 MG/DL (0.55-1.30) Estimat Glomerular Filtration Rate mL/min (>60) Glucose Level 107 MG/DL (74-106) H Calcium Level 9.2 MG/DL (8.5-10.1) Phosphorus Level 4.8 MG/DL (2.5-4.9) Magnesium Level 1.7 MG/DL (1.8-2.4) L Total Bilirubin 0.5 MG/DL (0.2-1.0) Aspartate Amino Transf (AST/SGOT) 17 U/L (15-37) Alanine Aminotransferase (ALT/SGPT) 21 U/L (12-78) Alkaline Phosphatase 58 U/L (46-116) C-Reactive Protein, Quantitative 13.0 mg/dL (0.00-0.90) H Total Protein 6.7 G/DL (6.4-8.2) Albumin 2.5 G/DL (3.4-5.0) L Globulin 4.2 g/dL Albumin/Globulin Ratio 0.6 (1.0-2.7) L Microbiology Date/Time Source Procedure Growth Status 02/19/17 18:40 Nasal Nares Right Influenza Types A,B Antigen (MONA) - Final Complete Intake and Output 02/20/17 02/21/17 19:00 07:00 Intake Total 370 ml Balance 370 ml Intake Oral 220 ml IV Total 150 ml # Voids 4 Objective General: No acute distress, awake and alert HEENT: NCAT, sclera anicteric, PERRL, EOMI. Neck: Supple, no significant jugular venous distention, Lungs: fair inspiratory effort, decrease air on bases, no Wheeze. Heart: Regular rate and rhythm, normal S1/S2, no murmur Abdomen: soft, nontender, nondistended. Morbid obesity. Extremities: No Cyanosis , clubbing or edema. Neuro: A&O x 3, Able to move all extremities Skin: warm, no rashes or lesions Assessment/Plan Assessment/Plan 1. Acute on chronic Respiratory failure. 2. Chronic obstructive pulmonary disease exacerbation. 3. Questionable pneumonia. 4. History of mitral regurgitation of significant degree. 5. History of subdural hematomas and intracranial hemorrhage. 6. History of breast cancer. 7. Anemia. 8. History of Clostridium difficile colitis. 9. History of anxiety. 10. Sinus tachycardia secondary to above. 11. HTN 12. CHF acute diastolic Plan: solumedral IV Abx: Vanco Po / IV, Meropenem monitor Labs and cultures cr increased cxr IV Jun Bustamante MD Feb 20, 2017 17:54
[2017-02-20] MEDS ORDERED: Miralax 17gm pkt ORAL PRN (18:15)
[2017-02-20 20:16] VITALS: BP 103/66
[2017-02-21] VITALS: BP 93/53
[2017-02-21] MEDS: Albuterol/Ipratropium 3ml neb HHN SCH ×2 (03:11→07:10)
[2017-02-21 04:00] VITALS: BP 151/68
[2017-02-21 06:36] LABS: BASOPHILS % (AUTO) 0.7 % (0.0-2.0); EOSINOPHILS % (AUTO) 0.9 % (0.0-3.0); HEMATOCRIT 32.5 % (37.0-47.0); HEMOGLOBIN 10.6 G/DL (12.0-16.0); LYMPHOCYTES % (AUTO) 18.5 % (20.0-45.0); MEAN CORPUSCULAR VOLUME 102 FL (80-99); MONOCYTES % (AUTO) 5.6 % (1.0-10.0); NEUTROPHILS % (AUTO) 74.3 % (45.0-75.0); PLATELET COUNT 248 K/UL (150-450); RED BLOOD COUNT 3.18 M/UL (4.20-5.40); RED CELL DISTRIBUTION WIDTH 12.5 % (11.6-14.8); WHITE BLOOD COUNT 13.5 K/UL (4.8-10.8)
[2017-02-21 07:07] LABS: ALANINE AMINOTRANSFERASE 18 U/L (12-78); ALBUMIN 2.6 G/DL (3.4-5.0); ALBUMIN/GLOBULIN RATIO 0.6 (1.0-2.7); ALKALINE PHOSPHATASE 57 U/L (46-116); ANION GAP 7 (5-15); ASPARTATE AMINO TRANSFERASE 18 U/L (15-37); BILIRUBIN,TOTAL 0.5 MG/DL (0.2-1.0); BLOOD UREA NITROGEN 50 mg/dL (7-18); CALCIUM 9.7 MG/DL (8.5-10.1); CARBON DIOXIDE 32 MMOL/L (21-32); CHLORIDE 92 MMOL/L (98-107); CREATININE 1.4 MG/DL (0.55-1.30); POTASSIUM 3.5 MMOL/L (3.5-5.1); SODIUM 130 MMOL/L (136-145)
[2017-02-21 08:00] VITALS: BP 113/69
[2017-02-21] MEDS: Vancomycin oral 125mg/2.5ml ORAL SCH ×2 (08:17→18:01)
[2017-02-21] MEDS: Meropenem 1 GM in NS 110 ML IVPB SCH ×2 (08:17→21:27)
[2017-02-21] MEDS: Lyrica 75mg cap ORAL SCH ×3 (08:18→18:01)
[2017-02-21] MEDS: Aspirin EC 81mg tab ORAL SCH (08:20)
[2017-02-21] MEDS: Solu-MEDROL 40mg Inj IVP SCH (08:20)
[2017-02-21] MEDS: Lisinopril 2.5mg tab ORAL SCH ×2 (08:20→18:02)
[2017-02-21] MEDS: Heparin 5000 units/ml inj SUBQ SCH ×3 (08:21→21:00)
--- NOTE | 2017-02-21 10:16 | Infectious Diseases Prog Note ---
Assessment/Plan Assessment/Plan Abx: IV Vanco 02/15- Cefepime 02/15-02/18 Meropenem 02/18- Assesment: Acute hypoxic resp failure, - combination of COPD exacerbation and PNA; worsenened 02/18 -venous duplex 02/16no DVT PNA; worsening- r/o MDRO, r/o fungal pnuemonia -CXR 02/20:There is a air space and interstitial opacities especially within the right lung. Suspected element of interstitial edema. Superimposed pneumonia not excluded. CXR 02/18: Increasing consolidation in the right mid and lower lung, over one day. Possibly improving consolidation and/or pleural fluid on the left -CXR 02/17: There is somewhat decreased but persistent and still extensive consolidation in the right mid and lower lung. Consolidation, atelectasis, and pleural fluid at the left lung base persists and are probably unchanged, -CXR: Limited evaluation due to significant degree of soft tissue attenuation. Suspect pneumonia at the right lung base. -sp cx ordered not collected yet Leukocytosis, mild (on steroids)- worsened but stable at 13 Afebrile COPD on home O2 Hx of Cdiff DM2 Chronic abd pain hx of MRSA bacteremia 07/2015 fibromyalgia, HTN, HLD, R breast cancer,Tobacco abuse (stopped 4 years ago), Anxiety, AOCD Plan: -Continue Meropenem #4 (abx d#11/17-) given worsening resp status -obtain sp cx if possible -Continue IV Vancomycin #11/17- -f/u Cocci ab and Cr Ag serum -continue prophylatic PO Vancomycin #6 given prior hx of Cdiff and current abx treatment (continue while on abx) -CXR am -F/u cultures -Monitor CBC/BMP, temperatures -Aspiration precautions Thank you for this consultation. Will continue to follow along with you. Discussed with RN Subjective Allergies: Coded Allergies: TETRACYCLINE (Unverified Allergy, Unknown, 07/24/14) Subjective afebrile, VSS remains on NRB 15L, FIo2 100% leukocytosis stable at 13 sputum cx unable to be collected. awake today, talkative Objective Vital Signs Last 24 Hour Vital Signs Date Time Temp Pulse Resp B/P (MAP) Pulse Ox O2 Delivery O2 Flow Rate FiO2 02/21/17 08:21 109 113/63 02/21/17 08:20 113/63 02/21/17 08:00 97.9 113 18 113/69 93 Non-Rebreather 15.0 02/21/17 07:20 108 20 90 Non-Rebreather 15.0 100 02/21/17 07:14 110 22 80 Non-Rebreather 15.0 100 02/21/17 07:13 Non-Rebreather 15.0 100 02/21/17 07:12 90 Non-Rebreather 15.0 100 02/21/17 04:00 97.7 101 20 151/68 94 Non-Rebreather 02/21/17 04:00 99 02/21/17 03:22 94 18 95 Non-Rebreather 15.0 100 02/21/17 03:10 88 18 96 Non-Rebreather 15.0 100 02/21/17 00:00 97.8 93 20 93/53 98 Non-Rebreather 02/21/17 00:00 96 02/20/17 23:06 97 18 97 Non-Rebreather 15.0 100 02/20/17 22:52 94 16 98 Non-Rebreather 15.0 100 02/20/17 20:26 106 103/66 02/20/17 20:16 98.0 106 20 103/66 95 Non-Rebreather 02/20/17 20:00 105 02/20/17 19:49 108 18 95 Non-Rebreather 15.0 100 02/20/17 19:37 Non-Rebreather 15.0 100 02/20/17 19:36 95 Non-Rebreather 15.0 100 02/20/17 19:34 102 18 95 Non-Rebreather 15.0 100 02/20/17 17:43 110/62 02/20/17 16:31 99 18 95 Non-Rebreather 15.0 100 02/20/17 16:26 90 22 92 Non-Rebreather 15.0 100 02/20/17 16:01 97.6 86 21 110/62 97 Room Air 02/20/17 16:00 94 02/20/17 12:06 97.3 117 21 134/72 92 Non-Rebreather 100 02/20/17 12:00 118 02/20/17 11:58 Non-Rebreather 15.0 100 02/20/17 11:57 115 20 91 Non-Rebreather 15.0 100 Height (Feet): 5 Height (Inches): 7.00 Weight (Pounds): 123 Objective General Appearance: awake and alert, answering questions, NRB mask HEENT: PERRL, no oral lesions, atraumatic head Neck: supple Respiratory: scattered wheezing Cardiovascular: regular rate, rhythmm, no murmurs Gastrointestinal: normal inspection, non tender, no mass, non-distended Musculoskeletal: back normal, normal range of motion Skin: no lesions or rashes Microbiology Date/Time Source Procedure Growth Status 02/19/17 18:40 Nasal Nares Right Influenza Types A,B Antigen (MONA) - Final Complete Laboratory Tests Test 02/21/17 04:45 White Blood Count 13.5 K/UL (4.8-10.8) H Red Blood Count 3.18 M/UL (4.20-5.40) L Hemoglobin 10.6 G/DL (12.0-16.0) L Hematocrit 32.5 % (37.0-47.0) L Mean Corpuscular Volume 102 FL (80-99) H Mean Corpuscular Hemoglobin 33.2 PG (27.0-31.0) H Mean Corpuscular Hemoglobin Concent 32.5 G/DL (32.0-36.0) Red Cell Distribution Width 12.5 % (11.6-14.8) Platelet Count 248 K/UL (150-450) Mean Platelet Volume 7.0 FL (6.5-10.1) Neutrophils (%) (Auto) 74.3 % (45.0-75.0) Lymphocytes (%) (Auto) 18.5 % (20.0-45.0) L Monocytes (%) (Auto) 5.6 % (1.0-10.0) Eosinophils (%) (Auto) 0.9 % (0.0-3.0) Basophils (%) (Auto) 0.7 % (0.0-2.0) Sodium Level 130 MMOL/L (136-145) L Potassium Level 3.5 MMOL/L (3.5-5.1) Chloride Level 92 MMOL/L (98-107) L Carbon Dioxide Level 32 MMOL/L (21-32) Anion Gap 7 (5-15) Blood Urea Nitrogen 50 mg/dL (7-18) H Creatinine 1.4 MG/DL (0.55-1.30) H Estimat Glomerular Filtration Rate mL/min (>60) Glucose Level 98 MG/DL (74-106) Calcium Level 9.7 MG/DL (8.5-10.1) Total Bilirubin 0.5 MG/DL (0.2-1.0) Aspartate Amino Transf (AST/SGOT) 18 U/L (15-37) Alanine Aminotransferase (ALT/SGPT) 18 U/L (12-78) Alkaline Phosphatase 57 U/L (46-116) Pro-B-Type Natriuretic Peptide 453 (0-125) H Total Protein 6.8 G/DL (6.4-8.2) Albumin 2.6 G/DL (3.4-5.0) L Globulin 4.2 g/dL Albumin/Globulin Ratio 0.6 (1.0-2.7) L Current Medications Medications (Trade) Dose Ordered Sig/Wilner Route PRN Reason Start Time Stop Time Status Last Admin Dose Admin Acetaminophen (Tylenol) 650 mg Q4H PRN ORAL FEVER 02/15/17 22:45 03/17/17 22:44 Acetaminophen/ Hydrocodone Bitart ([place] 5/325) 1 tab Q6H PRN ORAL Moderate Pain (Pain Scale 4-6) 02/16/17 12:00 02/23/17 11:59 02/17/17 05:00 Albuterol/ Ipratropium (DuoNeb 0.5-3(2.5)mg/3ml) 3 ml Q4HRT HHN 02/16/17 11:00 02/21/17 10:59 02/21/17 07:10 Amlodipine Besylate (Norvasc) 2.5 mg BIDPRN PRN ORAL sbp greater than 160 02/17/17 16:45 03/19/17 16:44 02/18/17 19:52 Aspirin (Ecotrin) 81 mg DAILY ORAL 02/17/17 09:00 03/19/17 08:59 02/21/17 08:20 Carvedilol (Coreg) 3.125 mg Q12HR ORAL 02/16/17 12:00 03/18/17 11:59 02/21/17 08:21 Dextrose (Dextrose 50%) STAT PRN IV Hypoglycemia 02/15/17 22:45 03/17/17 22:44 Escitalopram Oxalate (Lexapro) 10 mg DAILY ORAL 02/18/17 09:00 03/20/17 08:59 02/21/17 08:17 Furosemide 100 mg/ Dextrose 100 ml @ 10 mls/hr Q10H IV 02/20/17 12:00 03/22/17 11:59 02/21/17 08:17 Heparin Sodium (Porcine) (Heparin 5000 units/ml) 5,000 units EVERY 12 HOURS SUBQ 02/16/17 09:00 03/18/17 08:59 02/18/17 09:10 Hydralazine HCl (Apresoline) 10 mg Q8H PRN IV SBP > 160, SECOND LINE AGENT 02/17/17 17:00 03/19/17 14:29 Lidocaine (Xylocaine 1% MPF 5ml) 10 ml Q4H PRN HHN cough 02/17/17 10:15 03/19/17 10:14 Lisinopril (Zestril) 5 mg BID ORAL 02/19/17 18:00 03/21/17 17:59 02/21/17 08:20 Lorazepam (Ativan 2mg/ml 1ml) 2 mg EVERY 2 HOURS PRN IV For Anxiety 02/15/17 22:45 02/22/17 22:44 02/20/17 21:44 Meropenem 1 gm/ Sodium Chloride 110 ml @ 220 mls/hr Q12HR IVPB 02/18/17 21:00 02/23/17 20:59 02/21/17 08:17 Methadone HCl (Methadone HCl) 5 mg EVERY 12 HOURS ORAL 02/16/17 21:00 02/23/17 20:59 02/21/17 08:21 Methylprednisolone Sodium Succinate (Solu-MEDROL) 20 mg DAILY IVP 02/21/17 09:00 03/23/17 08:59 02/21/17 08:20 Morphine Sulfate (Morphine Sulfate) 4 mg EVERY 4 HOURS PRN IVP Severe Pain (Pain Scale 7-10) 02/15/17 22:45 02/22/17 22:44 02/20/17 14:07 Ondansetron HCl (Zofran) 4 mg Q6H PRN IVP Nausea & Vomiting 02/15/17 22:45 03/17/17 22:44 Polyethylene Glycol (Miralax) 17 gm DAILYPRN PRN ORAL Constipation 02/20/17 18:15 03/22/17 18:14 Polyethylene Glycol (Miralax) 17 gm DAILYPRN PRN ORAL Constipation 02/15/17 22:45 03/17/17 22:44 02/17/17 04:59 Pravastatin Sodium (Pravachol) 20 mg BEDTIME ORAL 02/16/17 21:00 03/18/17 20:59 02/20/17 20:25 Pregabalin (Lyrica) 150 mg THREE TIMES A DAY ORAL 02/16/17 13:00 03/18/17 12:59 02/21/17 08:18 Promethazine HCl/ Codeine (Phenergan with Codeine) 5 ml Q4H PRN ORAL For Cough 02/16/17 10:45 03/18/17 10:44 02/18/17 09:07 Vancomycin HCl (Vanco rx to dose) 1 ea DAILY PRN MISC PER RX PROTOCOL 02/16/17 07:45 03/18/17 07:44 Vancomycin HCl (Vancomycin) 125 mg BID ORAL 02/16/17 13:00 02/23/17 12:59 02/21/17 08:17 Vancomycin HCl/ Dextrose 250 ml @ 166.667 mls/hr Q24H IVPB 02/15/17 23:30 02/25/17 23:29 02/20/17 23:12 Alyse Traylor M.D. Feb 21, 2017 10:16
[2017-02-21] MEDS: Morphine Sulfate 4mg/ml Inj IVP PRN ×2 (11:01→20:24)
[2017-02-21 12:00] VITALS: BP 112/66
--- NOTE | 2017-02-21 14:53 | Internal Med Progress Note ---
Subjective Date of Service: Feb 21, 2017 Physician Name Zeb Fuentes Attending Physician Jun Cedillo MD Current Medications Medications (Trade) Dose Ordered Sig/Wilner Route PRN Reason Start Time Stop Time Status Last Admin Dose Admin Acetaminophen (Tylenol) 650 mg Q4H PRN ORAL FEVER 02/15/17 22:45 03/17/17 22:44 Acetaminophen/ Hydrocodone Bitart ([place] 5/325) 1 tab Q6H PRN ORAL Moderate Pain (Pain Scale 4-6) 02/16/17 12:00 02/23/17 11:59 02/17/17 05:00 Amlodipine Besylate (Norvasc) 2.5 mg BIDPRN PRN ORAL sbp greater than 160 02/17/17 16:45 03/19/17 16:44 02/18/17 19:52 Aspirin (Ecotrin) 81 mg DAILY ORAL 02/17/17 09:00 03/19/17 08:59 02/21/17 08:20 Carvedilol (Coreg) 3.125 mg Q12HR ORAL 02/16/17 12:00 03/18/17 11:59 02/21/17 08:21 Dextrose (Dextrose 50%) STAT PRN IV Hypoglycemia 02/15/17 22:45 03/17/17 22:44 Escitalopram Oxalate (Lexapro) 10 mg DAILY ORAL 02/18/17 09:00 03/20/17 08:59 02/21/17 08:17 Furosemide 100 mg/ Dextrose 100 ml @ 10 mls/hr Q10H IV 02/20/17 12:00 03/22/17 11:59 02/21/17 08:17 Heparin Sodium (Porcine) (Heparin 5000 units/ml) 5,000 units EVERY 12 HOURS SUBQ 02/16/17 09:00 03/18/17 08:59 02/18/17 09:10 Hydralazine HCl (Apresoline) 10 mg Q8H PRN IV SBP > 160, SECOND LINE AGENT 02/17/17 17:00 03/19/17 14:29 Lidocaine (Xylocaine 1% MPF 5ml) 10 ml Q4H PRN HHN cough 02/17/17 10:15 03/19/17 10:14 Lisinopril (Zestril) 5 mg BID ORAL 02/19/17 18:00 03/21/17 17:59 02/21/17 08:20 Lorazepam (Ativan 2mg/ml 1ml) 2 mg EVERY 2 HOURS PRN IV For Anxiety 02/15/17 22:45 02/22/17 22:44 02/20/17 21:44 Meropenem 1 gm/ Sodium Chloride 110 ml @ 220 mls/hr Q12HR IVPB 02/18/17 21:00 02/23/17 20:59 02/21/17 08:17 Methadone HCl (Methadone HCl) 5 mg EVERY 12 HOURS ORAL 02/16/17 21:00 02/23/17 20:59 02/21/17 08:21 Methylprednisolone Sodium Succinate (Solu-MEDROL) 20 mg DAILY IVP 02/21/17 09:00 03/23/17 08:59 02/21/17 08:20 Morphine Sulfate (Morphine Sulfate) 4 mg EVERY 4 HOURS PRN IVP Severe Pain (Pain Scale 7-10) 02/15/17 22:45 02/22/17 22:44 02/21/17 11:01 Ondansetron HCl (Zofran) 4 mg Q6H PRN IVP Nausea & Vomiting 02/15/17 22:45 03/17/17 22:44 02/21/17 13:17 Polyethylene Glycol (Miralax) 17 gm DAILYPRN PRN ORAL Constipation 02/20/17 18:15 03/22/17 18:14 Polyethylene Glycol (Miralax) 17 gm DAILYPRN PRN ORAL Constipation 02/15/17 22:45 03/17/17 22:44 02/17/17 04:59 Pravastatin Sodium (Pravachol) 20 mg BEDTIME ORAL 02/16/17 21:00 03/18/17 20:59 02/20/17 20:25 Pregabalin (Lyrica) 150 mg THREE TIMES A DAY ORAL 02/16/17 13:00 03/18/17 12:59 02/21/17 13:17 Promethazine HCl/ Codeine (Phenergan with Codeine) 5 ml Q4H PRN ORAL For Cough 02/16/17 10:45 03/18/17 10:44 02/18/17 09:07 Vancomycin HCl (Vanco rx to dose) 1 ea DAILY PRN MISC PER RX PROTOCOL 02/16/17 07:45 03/18/17 07:44 Vancomycin HCl (Vancomycin) 125 mg BID ORAL 02/16/17 13:00 02/23/17 12:59 02/21/17 08:17 Vancomycin HCl/ Dextrose 250 ml @ 166.667 mls/hr Q24H IVPB 02/15/17 23:30 02/25/17 23:29 02/20/17 23:12 Allergies: Coded Allergies: TETRACYCLINE (Unverified Allergy, Unknown, 07/24/14) ROS Limited/Unobtainable: Yes Subjective 76 YO F admitted with shortness of breath. Now pneumonia. Cover for Int Med- Dr Cedillo. [place]. Currently on non-rebreather. Objective Last Vital Signs Date Time Temp Pulse Resp B/P (MAP) Pulse Ox O2 Delivery O2 Flow Rate FiO2 02/21/17 12:00 97.5 105 18 112/66 100 Non-Rebreather 15.0 02/21/17 11:00 100 Laboratory Tests Test 02/21/17 04:45 White Blood Count 13.5 K/UL (4.8-10.8) H Red Blood Count 3.18 M/UL (4.20-5.40) L Hemoglobin 10.6 G/DL (12.0-16.0) L Hematocrit 32.5 % (37.0-47.0) L Mean Corpuscular Volume 102 FL (80-99) H Mean Corpuscular Hemoglobin 33.2 PG (27.0-31.0) H Mean Corpuscular Hemoglobin Concent 32.5 G/DL (32.0-36.0) Red Cell Distribution Width 12.5 % (11.6-14.8) Platelet Count 248 K/UL (150-450) Mean Platelet Volume 7.0 FL (6.5-10.1) Neutrophils (%) (Auto) 74.3 % (45.0-75.0) Lymphocytes (%) (Auto) 18.5 % (20.0-45.0) L Monocytes (%) (Auto) 5.6 % (1.0-10.0) Eosinophils (%) (Auto) 0.9 % (0.0-3.0) Basophils (%) (Auto) 0.7 % (0.0-2.0) Sodium Level 130 MMOL/L (136-145) L Potassium Level 3.5 MMOL/L (3.5-5.1) Chloride Level 92 MMOL/L (98-107) L Carbon Dioxide Level 32 MMOL/L (21-32) Anion Gap 7 (5-15) Blood Urea Nitrogen 50 mg/dL (7-18) H Creatinine 1.4 MG/DL (0.55-1.30) H Estimat Glomerular Filtration Rate mL/min (>60) Glucose Level 98 MG/DL (74-106) Calcium Level 9.7 MG/DL (8.5-10.1) Total Bilirubin 0.5 MG/DL (0.2-1.0) Aspartate Amino Transf (AST/SGOT) 18 U/L (15-37) Alanine Aminotransferase (ALT/SGPT) 18 U/L (12-78) Alkaline Phosphatase 57 U/L (46-116) Pro-B-Type Natriuretic Peptide 453 (0-125) H Total Protein 6.8 G/DL (6.4-8.2) Albumin 2.6 G/DL (3.4-5.0) L Globulin 4.2 g/dL Albumin/Globulin Ratio 0.6 (1.0-2.7) L Microbiology Date/Time Source Procedure Growth Status 02/19/17 18:40 Nasal Nares Right Influenza Types A,B Antigen (MONA) - Final Complete Objective General Appearance: WD/WN, no apparent distress, alert EENT: PERRL/EOMI, normal ENT inspection, TMs normal Neck: non-tender, normal alignment, supple, normal inspection Cardiovascular: normal peripheral pulses, normal rate, regular rhythm, no gallop/murmur, no JVD Respiratory/Chest: non-rebreather; chest wall non-tender, respiratory distress , decreased breath sounds, crackles/rales, rhonchi - bilaterally, expiratory wheezing Abdomen: normal bowel sounds, non tender, soft, no organomegaly, no mass Extremities: normal range of motion 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 (8) Pneumonia Assessment & Plan: Continue Meropenem. See ID and pulmonary notes. (9) COPD exacerbation Assessment & Plan: Continue IV solumedrol and albuterol nebs. See pulmonary note. (10) Diastolic CHF Assessment & Plan: See cardiology note. Status: not improved ZEB FUENTES Feb 21, 2017 14:53
[2017-02-21 16:00] VITALS: BP 111/61
[2017-02-21] MEDS ORDERED: Levalbuterol Inh UD 1.25mg/0.5ml HHN PRN (16:15)
[2017-02-21] MEDS ORDERED: Ipratropium 0.02% Inh Soln 2.5ml UD HHN PRN (16:15)
[2017-02-21] MEDS ORDERED: Tubing IV Secondary IV ONE (16:22)
--- NOTE | 2017-02-21 17:51 | Pulmonology Progress Note ---
Assessment/Plan Assessment/Plan ASSESSMENT acute on chronic respiratory failure requiring NRM- COPD exacerbation acute diastolic CHF likely PNA moderate MR moderate pulmonary HTN Hx of SDH and ICH Anemia of chronic disease Hx of breast Ca HTN Hx of C dif colitis dysphagia PLAN OF CARE [place] Lasix gtt , continue x 1 more day monitor I/O, renal parameter, lytes, replace as needed last CXR with asymmetric pulmonary edema versus infiltrate predominantly in the right lung. fup with CXR and pro BNP IV steroids and taper O2 HHN titrate O2 to keep sat above 92% a/tussive prn abx blood cx preliminary negative ,influenza screen negative Venous Duplex BLE negative ECHO with EF 50% and RVSP if 43, c/w moderate pulmonary HTN, + moderate MR BP management with BB, CCB and NORMA and optimize as needed pain management DVT prophylaxis BSSE with evidence of dysphagia diet as per ST recommendations strict aspiration/reflux precautions case discussed and evaluated by supervising physician Subjective Allergies: Coded Allergies: TETRACYCLINE (Unverified Allergy, Unknown, 07/24/14) Subjective afebrile, still leukocytosis ( on steroids) VSS awake, responsive still on 100%NRM creat worsening Objective Last 24 Hour Vital Signs Date Time Temp Pulse Resp B/P (MAP) Pulse Ox O2 Delivery O2 Flow Rate FiO2 02/21/17 12:00 97.5 105 18 112/66 100 Non-Rebreather 15.0 02/21/17 11:51 108 02/21/17 11:00 Non-Rebreather 15.0 100 02/21/17 11:00 Non-Rebreather 15.0 100 02/21/17 08:21 109 113/63 02/21/17 08:20 113/63 02/21/17 08:12 107 02/21/17 08:00 97.9 113 18 113/69 93 Non-Rebreather 15.0 02/21/17 07:20 108 20 90 Non-Rebreather 15.0 100 02/21/17 07:14 110 22 80 Non-Rebreather 15.0 100 02/21/17 07:13 Non-Rebreather 15.0 100 02/21/17 07:12 90 Non-Rebreather 15.0 100 02/21/17 04:00 97.7 101 20 151/68 94 Non-Rebreather 02/21/17 04:00 99 02/21/17 03:22 94 18 95 Non-Rebreather 15.0 100 02/21/17 03:10 88 18 96 Non-Rebreather 15.0 100 02/21/17 00:00 97.8 93 20 93/53 98 Non-Rebreather 02/21/17 00:00 96 02/20/17 23:06 97 18 97 Non-Rebreather 15.0 100 02/20/17 22:52 94 16 98 Non-Rebreather 15.0 100 02/20/17 20:26 106 103/66 02/20/17 20:16 98.0 106 20 103/66 95 Non-Rebreather 02/20/17 20:00 105 02/20/17 19:49 108 18 95 Non-Rebreather 15.0 100 02/20/17 19:37 Non-Rebreather 15.0 100 02/20/17 19:36 95 Non-Rebreather 15.0 100 02/20/17 19:34 102 18 95 Non-Rebreather 15.0 100 Intake and Output 02/21/17 02/22/17 19:00 07:00 Intake Total 200 ml Balance 200 ml IV Total 200 ml General Appearance: no acute distress, other - awake, alert, elderly female HEENT: normocephalic, atraumatic, anicteric, mucous membranes moist, other - 100% NRM Respiratory/Chest: no accessory muscle use, expiratory wheezing - scattered Cardiovascular: normal rate Abdomen: normal bowel sounds, soft, non tender, non distended Extremities: pedal pulses normal, other - trace edema BLE Neurologic/Psychiatric: alert, responsive, other - bedridden Musculoskeletal: atrophy - BLE Microbiology Date/Time Source Procedure Growth Status 02/19/17 18:40 Nasal Nares Right Influenza Types A,B Antigen (MONA) - Final Complete Laboratory Tests 02/21/17 04:45: White Blood Count 13.5H, Red Blood Count 3.18L, Hemoglobin 10.6L, Hematocrit 32.5L, Mean Corpuscular Volume 102H, Mean Corpuscular Hemoglobin 33.2H, Mean Corpuscular Hemoglobin Concent 32.5, Red Cell Distribution Width 12.5, Platelet Count 248, Mean Platelet Volume 7.0, Neutrophils (%) (Auto) 74.3, Lymphocytes (% ) (Auto) 18.5L, Monocytes (%) (Auto) 5.6, Eosinophils (%) (Auto) 0.9, Basophils (%) (Auto) 0.7, Sodium Level 130L, Potassium Level 3.5, Chloride Level 92L, Carbon Dioxide Level 32, Anion Gap 7, Blood Urea Nitrogen 50H, Creatinine 1.4H, Estimat Glomerular Filtration Rate , Glucose Level 98, Calcium Level 9.7, Total Bilirubin 0.5, Aspartate Amino Transf (AST/SGOT) 18, Alanine Aminotransferase ( ALT/SGPT) 18, Alkaline Phosphatase 57, Pro-B-Type Natriuretic Peptide 453H, Total Protein 6.8, Albumin 2.6L, Globulin 4.2, Albumin/Globulin Ratio 0.6L Current Medications Medications (Trade) Dose Ordered Sig/Wilner Route PRN Reason Start Time Stop Time Status Last Admin Dose Admin Acetaminophen (Tylenol) 650 mg Q4H PRN ORAL FEVER 02/15/17 22:45 03/17/17 22:44 Acetaminophen/ Hydrocodone Bitart ([place] 5/325) 1 tab Q6H PRN ORAL Moderate Pain (Pain Scale 4-6) 02/16/17 12:00 02/23/17 11:59 02/17/17 05:00 Amlodipine Besylate (Norvasc) 2.5 mg BIDPRN PRN ORAL sbp greater than 160 02/17/17 16:45 03/19/17 16:44 02/18/17 19:52 Aspirin (Ecotrin) 81 mg DAILY ORAL 02/17/17 09:00 03/19/17 08:59 02/21/17 08:20 Carvedilol (Coreg) 3.125 mg Q12HR ORAL 02/16/17 12:00 03/18/17 11:59 02/21/17 08:21 Dextrose (Dextrose 50%) STAT PRN IV Hypoglycemia 02/15/17 22:45 03/17/17 22:44 Escitalopram Oxalate (Lexapro) 10 mg DAILY ORAL 02/18/17 09:00 03/20/17 08:59 02/21/17 08:17 Furosemide 100 mg/ Dextrose 100 ml @ 10 mls/hr Q10H IV 02/20/17 12:00 03/22/17 11:59 02/21/17 08:17 Heparin Sodium (Porcine) (Heparin 5000 units/ml) 5,000 units EVERY 12 HOURS SUBQ 02/16/17 09:00 03/18/17 08:59 02/18/17 09:10 Hydralazine HCl (Apresoline) 10 mg Q8H PRN IV SBP > 160, SECOND LINE AGENT 02/17/17 17:00 03/19/17 14:29 Ipratropium [place] (Atrovent) 500 mcg EVERY 4 HOURS PRN HHN Bronchospasm 02/21/17 16:15 02/26/17 16:14 Levalbuterol HCl (Xopenex) 1.25 mg EVERY 4 HOURS PRN HHN Bronchospasm 02/21/17 16:15 02/26/17 16:14 Lidocaine (Xylocaine 1% MPF 5ml) 10 ml Q4H PRN HHN cough 02/17/17 10:15 03/19/17 10:14 Lisinopril (Zestril) 5 mg BID ORAL 02/19/17 18:00 03/21/17 17:59 02/21/17 08:20 Lorazepam (Ativan 2mg/ml 1ml) 2 mg EVERY 2 HOURS PRN IV For Anxiety 02/15/17 22:45 02/22/17 22:44 02/20/17 21:44 Meropenem 1 gm/ Sodium Chloride 110 ml @ 220 mls/hr Q12HR IVPB 02/18/17 21:00 02/23/17 20:59 02/21/17 08:17 Methadone HCl (Methadone HCl) 5 mg EVERY 12 HOURS ORAL 02/16/17 21:00 02/23/17 20:59 02/21/17 08:21 Methylprednisolone Sodium Succinate (Solu-MEDROL) 20 mg DAILY IVP 02/21/17 09:00 03/23/17 08:59 02/21/17 08:20 Morphine Sulfate (Morphine Sulfate) 4 mg EVERY 4 HOURS PRN IVP Severe Pain (Pain Scale 7-10) 02/15/17 22:45 02/22/17 22:44 02/21/17 11:01 Ondansetron HCl (Zofran) 4 mg Q6H PRN IVP Nausea & Vomiting 02/15/17 22:45 03/17/17 22:44 02/21/17 13:17 Polyethylene Glycol (Miralax) 17 gm DAILYPRN PRN ORAL Constipation 02/20/17 18:15 03/22/17 18:14 Polyethylene Glycol (Miralax) 17 gm DAILYPRN PRN ORAL Constipation 02/15/17 22:45 03/17/17 22:44 02/17/17 04:59 Pravastatin Sodium (Pravachol) 20 mg BEDTIME ORAL 02/16/17 21:00 03/18/17 20:59 02/20/17 20:25 Pregabalin (Lyrica) 150 mg THREE TIMES A DAY ORAL 02/16/17 13:00 03/18/17 12:59 02/21/17 13:17 Promethazine HCl/ Codeine (Phenergan with Codeine) 5 ml Q4H PRN ORAL For Cough 02/16/17 10:45 03/18/17 10:44 02/18/17 09:07 Vancomycin HCl (Vanco rx to dose) 1 ea DAILY PRN MISC PER RX PROTOCOL 02/16/17 07:45 03/18/17 07:44 Vancomycin HCl (Vancomycin) 125 mg BID ORAL 02/16/17 13:00 02/23/17 12:59 02/21/17 08:17 Vancomycin HCl/ Dextrose 250 ml @ 166.667 mls/hr Q24H IVPB 02/15/17 23:30 02/25/17 23:29 02/20/17 23:12 [place] (Cassidy Parr NP Feb 21, 2017 17:51
[2017-02-21 20:00] VITALS: BP 105/60
--- NOTE | 2017-02-21 22:43 | Cardiology Progress Note ---
Assessment/Plan Assessment/Plan off diuretics due to elevation of creatginine COPD: improving on treatment\ will follow Subjective Subjective the patient is resting she feels much better, less dyspnea and cough Objective Last 24 Hour Vital Signs Date Time Temp Pulse Resp B/P (MAP) Pulse Ox O2 Delivery O2 Flow Rate FiO2 02/21/17 21:27 96 105/57 02/21/17 20:00 97.9 102 24 105/60 96 Non-Rebreather 15.0 02/21/17 19:37 Non-Rebreather 15.0 100 02/21/17 19:37 110 18 Non-Rebreather 15.0 100 02/21/17 19:36 94 Non-Rebreather 15.0 100 02/21/17 18:02 111/61 02/21/17 16:00 95 02/21/17 16:00 97.6 97 18 111/61 96 Non-Rebreather 15.0 02/21/17 12:00 97.5 105 18 112/66 100 Non-Rebreather 15.0 02/21/17 11:51 108 02/21/17 11:00 Non-Rebreather 15.0 100 02/21/17 11:00 Non-Rebreather 15.0 100 02/21/17 08:21 109 113/63 02/21/17 08:20 113/63 02/21/17 08:12 107 02/21/17 08:00 97.9 113 18 113/69 93 Non-Rebreather 15.0 02/21/17 07:20 108 20 90 Non-Rebreather 15.0 100 02/21/17 07:14 110 22 80 Non-Rebreather 15.0 100 02/21/17 07:13 Non-Rebreather 15.0 100 02/21/17 07:12 90 Non-Rebreather 15.0 100 02/21/17 04:00 97.7 101 20 151/68 94 Non-Rebreather 02/21/17 04:00 99 02/21/17 03:22 94 18 95 Non-Rebreather 15.0 100 02/21/17 03:10 88 18 96 Non-Rebreather 15.0 100 02/21/17 00:00 97.8 93 20 93/53 98 Non-Rebreather 02/21/17 00:00 96 02/20/17 23:06 97 18 97 Non-Rebreather 15.0 100 02/20/17 22:52 94 16 98 Non-Rebreather 15.0 100 General Appearance: mild distress, obese EENT: PERRL/EOMI Neck: no JVD Rhythm: NSR Cardiovascular: normal rate Respiratory/Chest: rhonchi - bilaterally Abdomen: distended Extremities: non-tender, no swelling Intake and Output 02/21/17 02/22/17 19:00 07:00 Intake Total 370 ml Balance 370 ml Intake Oral 150 ml IV Total 220 ml # Voids 2 Laboratory Tests Test 02/21/17 04:45 White Blood Count 13.5 K/UL (4.8-10.8) H Red Blood Count 3.18 M/UL (4.20-5.40) L Hemoglobin 10.6 G/DL (12.0-16.0) L Hematocrit 32.5 % (37.0-47.0) L Mean Corpuscular Volume 102 FL (80-99) H Mean Corpuscular Hemoglobin 33.2 PG (27.0-31.0) H Mean Corpuscular Hemoglobin Concent 32.5 G/DL (32.0-36.0) Red Cell Distribution Width 12.5 % (11.6-14.8) Platelet Count 248 K/UL (150-450) Mean Platelet Volume 7.0 FL (6.5-10.1) Neutrophils (%) (Auto) 74.3 % (45.0-75.0) Lymphocytes (%) (Auto) 18.5 % (20.0-45.0) L Monocytes (%) (Auto) 5.6 % (1.0-10.0) Eosinophils (%) (Auto) 0.9 % (0.0-3.0) Basophils (%) (Auto) 0.7 % (0.0-2.0) Sodium Level 130 MMOL/L (136-145) L Potassium Level 3.5 MMOL/L (3.5-5.1) Chloride Level 92 MMOL/L (98-107) L Carbon Dioxide Level 32 MMOL/L (21-32) Anion Gap 7 (5-15) Blood Urea Nitrogen 50 mg/dL (7-18) H Creatinine 1.4 MG/DL (0.55-1.30) H Estimat Glomerular Filtration Rate mL/min (>60) Glucose Level 98 MG/DL (74-106) Calcium Level 9.7 MG/DL (8.5-10.1) Total Bilirubin 0.5 MG/DL (0.2-1.0) Aspartate Amino Transf (AST/SGOT) 18 U/L (15-37) Alanine Aminotransferase (ALT/SGPT) 18 U/L (12-78) Alkaline Phosphatase 57 U/L (46-116) Pro-B-Type Natriuretic Peptide 453 (0-125) H Total Protein 6.8 G/DL (6.4-8.2) Albumin 2.6 G/DL (3.4-5.0) L Globulin 4.2 g/dL Albumin/Globulin Ratio 0.6 (1.0-2.7) L Microbiology Date/Time Source Procedure Growth Status 02/19/17 18:40 Nasal Nares Right Influenza Types A,B Antigen (MONA) - Final Complete RAPHAEL CR Feb 21, 2017 22:43
[2017-02-22] VITALS: BP 118/64
[2017-02-22] MEDS: Vancomycin 1250mg/D5W 250ml IVPB SCH (00:51)
[2017-02-22] MEDS: Morphine Sulfate 4mg/ml Inj IVP PRN (01:19)
[2017-02-22 04:00] VITALS: BP 103/55
[2017-02-22 05:21] LABS: BASOPHILS % (AUTO) 0.7 % (0.0-2.0); EOSINOPHILS % (AUTO) 1.2 % (0.0-3.0); HEMATOCRIT 31.9 % (37.0-47.0); HEMOGLOBIN 10.2 G/DL (12.0-16.0); LYMPHOCYTES % (AUTO) 18.4 % (20.0-45.0); MEAN CORPUSCULAR VOLUME 101 FL (80-99); MONOCYTES % (AUTO) 5.3 % (1.0-10.0); NEUTROPHILS % (AUTO) 74.3 % (45.0-75.0); PLATELET COUNT 242 K/UL (150-450); RED BLOOD COUNT 3.17 M/UL (4.20-5.40); RED CELL DISTRIBUTION WIDTH 12.4 % (11.6-14.8); WHITE BLOOD COUNT 13.6 K/UL (4.8-10.8)
[2017-02-22 05:24] LABS: ANION GAP 5 (5-15); BLOOD UREA NITROGEN 60 mg/dL (7-18); CALCIUM 9.2 MG/DL (8.5-10.1); CARBON DIOXIDE 35 MMOL/L (21-32); CHLORIDE 95 MMOL/L (98-107); CREATININE 1.5 MG/DL (0.55-1.30); POTASSIUM 3.5 MMOL/L (3.5-5.1); SODIUM 135 MMOL/L (136-145)
--- NOTE | 2017-02-22 07:00 | Infectious Diseases Prog Note ---
Assessment/Plan Assessment/Plan A; Pneumonia COPD exacerbation Hypoxemic respiratory failure DM type II P: Continue IV Vancomycin & Meropenem May discontinue PO Vancomycin Subjective ROS Limited/Unobtainable: No Constitutional: Reports: no symptoms Respiratory: Reports: dry cough Gastrointestinal/Abdominal: Reports: no symptoms Allergies: Coded Allergies: TETRACYCLINE (Unverified Allergy, Unknown, 07/24/14) Objective Vital Signs Last 24 Hour Vital Signs Date Time Temp Pulse Resp B/P (MAP) Pulse Ox O2 Delivery O2 Flow Rate FiO2 02/22/17 04:00 98.0 95 20 103/55 96 Non-Rebreather 02/22/17 04:00 89 02/22/17 01:49 98.4 02/22/17 00:00 99 02/22/17 00:00 98.4 97 24 118/64 96 Non-Rebreather 15.0 02/21/17 21:27 96 105/57 02/21/17 20:00 103 02/21/17 20:00 97.9 102 24 105/60 96 Non-Rebreather 15.0 02/21/17 19:37 Non-Rebreather 15.0 100 02/21/17 19:37 110 18 Non-Rebreather 15.0 100 02/21/17 19:36 94 Non-Rebreather 15.0 100 02/21/17 18:02 111/61 02/21/17 16:00 95 02/21/17 16:00 97.6 97 18 111/61 96 Non-Rebreather 15.0 02/21/17 12:00 97.5 105 18 112/66 100 Non-Rebreather 15.0 02/21/17 11:51 108 02/21/17 11:00 Non-Rebreather 15.0 100 02/21/17 11:00 Non-Rebreather 15.0 100 02/21/17 08:21 109 113/63 02/21/17 08:20 113/63 02/21/17 08:12 107 02/21/17 08:00 97.9 113 18 113/69 93 Non-Rebreather 15.0 02/21/17 07:20 108 20 90 Non-Rebreather 15.0 100 02/21/17 07:14 110 22 80 Non-Rebreather 15.0 100 02/21/17 07:13 Non-Rebreather 15.0 100 02/21/17 07:12 90 Non-Rebreather 15.0 100 Height (Feet): 5 Height (Inches): 7.00 Weight (Pounds): 123 HEENT: mucous membranes moist Respiratory/Chest: decreased breath sounds, other - getting O2 by rebreathing mask Cardiovascular: normal rate Abdomen: soft, non tender Extremities: no edema Neurologic/Psychiatric: alert, oriented x 3, responsive Microbiology Date/Time Source Procedure Growth Status 02/19/17 18:40 Nasal Nares Right Influenza Types A,B Antigen (MONA) - Final Complete Laboratory Tests Test 02/21/17 23:15 02/22/17 04:30 Vancomycin Level Trough 31.6 ug/mL (5.0-12.0) H White Blood Count 13.6 K/UL (4.8-10.8) H Red Blood Count 3.17 M/UL (4.20-5.40) L Hemoglobin 10.2 G/DL (12.0-16.0) L Hematocrit 31.9 % (37.0-47.0) L Mean Corpuscular Volume 101 FL (80-99) H Mean Corpuscular Hemoglobin 32.2 PG (27.0-31.0) H Mean Corpuscular Hemoglobin Concent 32.0 G/DL (32.0-36.0) Red Cell Distribution Width 12.4 % (11.6-14.8) Platelet Count 242 K/UL (150-450) Mean Platelet Volume 6.7 FL (6.5-10.1) Neutrophils (%) (Auto) 74.3 % (45.0-75.0) Lymphocytes (%) (Auto) 18.4 % (20.0-45.0) L Monocytes (%) (Auto) 5.3 % (1.0-10.0) Eosinophils (%) (Auto) 1.2 % (0.0-3.0) Basophils (%) (Auto) 0.7 % (0.0-2.0) Sodium Level 135 MMOL/L (136-145) L Potassium Level 3.5 MMOL/L (3.5-5.1) Chloride Level 95 MMOL/L (98-107) L Carbon Dioxide Level 35 MMOL/L (21-32) H Anion Gap 5 (5-15) Blood Urea Nitrogen 60 mg/dL (7-18) H Creatinine 1.5 MG/DL (0.55-1.30) H Estimat Glomerular Filtration Rate mL/min (>60) Glucose Level 105 MG/DL (74-106) Calcium Level 9.2 MG/DL (8.5-10.1) Pro-B-Type Natriuretic Peptide 550 (0-125) H Current Medications Medications (Trade) Dose Ordered Sig/Wilner Route PRN Reason Start Time Stop Time Status Last Admin Dose Admin Acetaminophen (Tylenol) 650 mg Q4H PRN ORAL FEVER 02/15/17 22:45 03/17/17 22:44 Acetaminophen/ Hydrocodone Bitart ([place] 5/325) 1 tab Q6H PRN ORAL Moderate Pain (Pain Scale 4-6) 02/16/17 12:00 02/23/17 11:59 02/17/17 05:00 Amlodipine Besylate (Norvasc) 2.5 mg BIDPRN PRN ORAL sbp greater than 160 02/17/17 16:45 03/19/17 16:44 02/18/17 19:52 Aspirin (Ecotrin) 81 mg DAILY ORAL 02/17/17 09:00 03/19/17 08:59 02/21/17 08:20 Carvedilol (Coreg) 3.125 mg Q12HR ORAL 02/16/17 12:00 03/18/17 11:59 02/21/17 21:27 Dextrose (Dextrose 50%) STAT PRN IV Hypoglycemia 02/15/17 22:45 03/17/17 22:44 Escitalopram Oxalate (Lexapro) 10 mg DAILY ORAL 02/18/17 09:00 03/20/17 08:59 02/21/17 08:17 Furosemide 100 mg/ Dextrose 100 ml @ 10 mls/hr Q10H IV 02/20/17 12:00 03/22/17 11:59 02/22/17 04:10 Heparin Sodium (Porcine) (Heparin 5000 units/ml) 5,000 units EVERY 12 HOURS SUBQ 02/16/17 09:00 03/18/17 08:59 02/18/17 09:10 Hydralazine HCl (Apresoline) 10 mg Q8H PRN IV SBP > 160, SECOND LINE AGENT 02/17/17 17:00 03/19/17 14:29 Ipratropium [place] (Atrovent) 500 mcg EVERY 4 HOURS PRN HHN Bronchospasm 02/21/17 16:15 02/26/17 16:14 Levalbuterol HCl (Xopenex) 1.25 mg EVERY 4 HOURS PRN HHN Bronchospasm 02/21/17 16:15 02/26/17 16:14 Lidocaine (Xylocaine 1% MPF 5ml) 10 ml Q4H PRN HHN cough 02/17/17 10:15 03/19/17 10:14 Lisinopril (Zestril) 5 mg BID ORAL 02/19/17 18:00 03/21/17 17:59 02/21/17 18:02 Lorazepam (Ativan 2mg/ml 1ml) 2 mg EVERY 2 HOURS PRN IV For Anxiety 02/21/17 21:30 02/28/17 23:59 Meropenem 1 gm/ Sodium Chloride 110 ml @ 220 mls/hr Q12HR IVPB 02/18/17 21:00 02/23/17 20:59 02/21/17 21:27 Methadone HCl (Methadone HCl) 5 mg EVERY 12 HOURS ORAL 02/16/17 21:00 02/23/17 20:59 02/21/17 21:27 Methylprednisolone Sodium Succinate (Solu-MEDROL) 20 mg DAILY IVP 02/21/17 09:00 03/23/17 08:59 02/21/17 08:20 Morphine Sulfate (Morphine Sulfate) 4 mg EVERY 4 HOURS PRN IVP Severe Pain (Pain Scale 7-10) 02/21/17 21:30 02/28/17 23:59 02/22/17 01:19 Ondansetron HCl (Zofran) 4 mg Q6H PRN IVP Nausea & Vomiting 02/15/17 22:45 03/17/17 22:44 02/22/17 06:53 Polyethylene Glycol (Miralax) 17 gm DAILYPRN PRN ORAL Constipation 02/20/17 18:15 03/22/17 18:14 Polyethylene Glycol (Miralax) 17 gm DAILYPRN PRN ORAL Constipation 02/15/17 22:45 03/17/17 22:44 02/17/17 04:59 Pravastatin Sodium (Pravachol) 20 mg BEDTIME ORAL 02/16/17 21:00 03/18/17 20:59 02/21/17 21:26 Pregabalin (Lyrica) 150 mg THREE TIMES A DAY ORAL 02/16/17 13:00 03/18/17 12:59 02/21/17 18:01 Promethazine HCl/ Codeine (Phenergan with Codeine) 5 ml Q4H PRN ORAL For Cough 02/16/17 10:45 03/18/17 10:44 02/18/17 09:07 Vancomycin HCl (Vanco rx to dose) 1 ea DAILY PRN MISC PER RX PROTOCOL 02/16/17 07:45 03/18/17 07:44 Vancomycin HCl (Vancomycin) 125 mg BID ORAL 02/16/17 13:00 02/23/17 12:59 02/21/17 18:01 GOSIA ALBRIGHT Feb 22, 2017 07:00
[2017-02-22 08:00] VITALS: BP 123/48
[2017-02-22] MEDS: Solu-MEDROL 40mg Inj IVP SCH (08:19)
[2017-02-22] MEDS: Aspirin EC 81mg tab ORAL SCH (08:20)
[2017-02-22] MEDS: Meropenem 1 GM in NS 110 ML IVPB SCH ×2 (08:22→21:39)
[2017-02-22] MEDS: Lisinopril 2.5mg tab ORAL SCH ×2 (08:23→18:11)
[2017-02-22] MEDS: Heparin 5000 units/ml inj SUBQ SCH ×2 (08:24→21:00)
[2017-02-22] MEDS: Lyrica 75mg cap ORAL SCH ×4 (09:05→18:12)
--- NOTE | 2017-02-22 10:05 | Diagnostic Imaging Report ---
Indication: Dyspnea Comparison: 02/20/2017 A single view chest radiograph was obtained. Findings: Heart is enlarged. There is a air space and interstitial opacities especially within the right lung. Suspected element of interstitial edema. Superimposed pneumonia not excluded. Please correlate clinically. Surgical clips in the right axilla again noted. Bones are osteopenic. Impression: Suspect CHF. Asymmetric pulmonary edema versus infiltrate predominantly in the right lung. Please correlate clinically. No change from prior exam 02/20/2013.
--- NOTE | 2017-02-22 11:53 | Internal Med Progress Note ---
Subjective Date of Service: Feb 22, 2017 Physician Name Zeb Fuentes Attending Physician Jun Cedillo MD Current Medications Medications (Trade) Dose Ordered Sig/Wilner Route PRN Reason Start Time Stop Time Status Last Admin Dose Admin Acetaminophen (Tylenol) 650 mg Q4H PRN ORAL FEVER 02/15/17 22:45 03/17/17 22:44 Acetaminophen/ Hydrocodone Bitart ([place] 5/325) 1 tab Q6H PRN ORAL Moderate Pain (Pain Scale 4-6) 02/16/17 12:00 02/23/17 11:59 02/17/17 05:00 Amlodipine Besylate (Norvasc) 2.5 mg BIDPRN PRN ORAL sbp greater than 160 02/17/17 16:45 03/19/17 16:44 02/18/17 19:52 Aspirin (Ecotrin) 81 mg DAILY ORAL 02/17/17 09:00 03/19/17 08:59 02/22/17 08:20 Carvedilol (Coreg) 3.125 mg Q12HR ORAL 02/16/17 12:00 03/18/17 11:59 02/22/17 08:22 Dextrose (Dextrose 50%) STAT PRN IV Hypoglycemia 02/15/17 22:45 03/17/17 22:44 Escitalopram Oxalate (Lexapro) 10 mg DAILY ORAL 02/18/17 09:00 03/20/17 08:59 02/22/17 08:23 Heparin Sodium (Porcine) (Heparin 5000 units/ml) 5,000 units EVERY 12 HOURS SUBQ 02/16/17 09:00 03/18/17 08:59 02/18/17 09:10 Hydralazine HCl (Apresoline) 10 mg Q8H PRN IV SBP > 160, SECOND LINE AGENT 02/17/17 17:00 03/19/17 14:29 Ipratropium [place] (Atrovent) 500 mcg EVERY 4 HOURS PRN HHN Bronchospasm 02/21/17 16:15 02/26/17 16:14 Levalbuterol HCl (Xopenex) 1.25 mg EVERY 4 HOURS PRN HHN Bronchospasm 02/21/17 16:15 02/26/17 16:14 Lidocaine (Xylocaine 1% MPF 5ml) 10 ml Q4H PRN HHN cough 02/17/17 10:15 03/19/17 10:14 Lisinopril (Zestril) 5 mg BID ORAL 02/19/17 18:00 03/21/17 17:59 02/22/17 08:23 Lorazepam (Ativan 2mg/ml 1ml) 2 mg EVERY 2 HOURS PRN IV For Anxiety 02/21/17 21:30 02/28/17 23:59 Meropenem 1 gm/ Sodium Chloride 110 ml @ 220 mls/hr Q12HR IVPB 02/18/17 21:00 02/23/17 20:59 02/22/17 08:22 Methadone HCl (Methadone HCl) 5 mg EVERY 12 HOURS ORAL 02/16/17 21:00 02/23/17 20:59 02/22/17 08:24 Methylprednisolone Sodium Succinate (Solu-MEDROL) 20 mg DAILY IVP 02/21/17 09:00 03/23/17 08:59 02/22/17 08:19 Morphine Sulfate (Morphine Sulfate) 4 mg EVERY 4 HOURS PRN IVP Severe Pain (Pain Scale 7-10) 02/21/17 21:30 02/28/17 23:59 02/22/17 01:19 Ondansetron HCl (Zofran) 4 mg Q6H PRN IVP Nausea & Vomiting 02/15/17 22:45 03/17/17 22:44 02/22/17 06:53 Polyethylene Glycol (Miralax) 17 gm DAILYPRN PRN ORAL Constipation 02/20/17 18:15 03/22/17 18:14 Polyethylene Glycol (Miralax) 17 gm DAILYPRN PRN ORAL Constipation 02/15/17 22:45 03/17/17 22:44 02/17/17 04:59 Pravastatin Sodium (Pravachol) 20 mg BEDTIME ORAL 02/16/17 21:00 03/18/17 20:59 02/21/17 21:26 Pregabalin (Lyrica) 150 mg THREE TIMES A DAY ORAL 02/16/17 13:00 03/18/17 12:59 02/22/17 09:05 Promethazine HCl/ Codeine (Phenergan with Codeine) 5 ml Q4H PRN ORAL For Cough 02/16/17 10:45 03/18/17 10:44 02/18/17 09:07 Vancomycin HCl (Vanco rx to dose) 1 ea DAILY PRN MISC PER RX PROTOCOL 02/16/17 07:45 03/18/17 07:44 Allergies: Coded Allergies: TETRACYCLINE (Unverified Allergy, Unknown, 07/24/14) ROS Limited/Unobtainable: No Constitutional: Reports: no symptoms HEENT: Reports: no symptoms Cardiovascular: Reports: no symptoms Respiratory: Reports: shortness of breath Gastrointestinal/Abdominal: Reports: constipated Genitourinary: Reports: no symptoms Neurologic/Psychiatric: Reports: no symptoms Subjective 76 YO F admitted with shortness of breath. Now pneumonia. Cover for Int Med- Dr Cedillo. CAYETANO. Currently on non-rebreather. C/O constipation-wants suppository Objective Last Vital Signs Date Time Temp Pulse Resp B/P (MAP) Pulse Ox O2 Delivery O2 Flow Rate FiO2 02/22/17 08:23 123/48 02/22/17 08:22 108 02/22/17 08:00 97.6 16 94 Non-Rebreather 02/22/17 00:00 15.0 02/21/17 19:37 100 Laboratory Tests Test 02/21/17 23:15 02/22/17 04:30 Vancomycin Level Trough 31.6 ug/mL (5.0-12.0) H White Blood Count 13.6 K/UL (4.8-10.8) H Red Blood Count 3.17 M/UL (4.20-5.40) L Hemoglobin 10.2 G/DL (12.0-16.0) L Hematocrit 31.9 % (37.0-47.0) L Mean Corpuscular Volume 101 FL (80-99) H Mean Corpuscular Hemoglobin 32.2 PG (27.0-31.0) H Mean Corpuscular Hemoglobin Concent 32.0 G/DL (32.0-36.0) Red Cell Distribution Width 12.4 % (11.6-14.8) Platelet Count 242 K/UL (150-450) Mean Platelet Volume 6.7 FL (6.5-10.1) Neutrophils (%) (Auto) 74.3 % (45.0-75.0) Lymphocytes (%) (Auto) 18.4 % (20.0-45.0) L Monocytes (%) (Auto) 5.3 % (1.0-10.0) Eosinophils (%) (Auto) 1.2 % (0.0-3.0) Basophils (%) (Auto) 0.7 % (0.0-2.0) Sodium Level 135 MMOL/L (136-145) L Potassium Level 3.5 MMOL/L (3.5-5.1) Chloride Level 95 MMOL/L (98-107) L Carbon Dioxide Level 35 MMOL/L (21-32) H Anion Gap 5 (5-15) Blood Urea Nitrogen 60 mg/dL (7-18) H Creatinine 1.5 MG/DL (0.55-1.30) H Estimat Glomerular Filtration Rate mL/min (>60) Glucose Level 105 MG/DL (74-106) Calcium Level 9.2 MG/DL (8.5-10.1) Pro-B-Type Natriuretic Peptide 550 (0-125) H Microbiology Date/Time Source Procedure Growth Status 02/19/17 18:40 Nasal Nares Right Influenza Types A,B Antigen (MONA) - Final Complete Intake and Output 02/22/17 02/23/17 19:00 07:00 Intake Total 126 ml Balance 126 ml IV Total 126 ml Objective General Appearance: WD/WN, no apparent distress, alert EENT: PERRL/EOMI, normal ENT inspection, TMs normal Neck: non-tender, normal alignment, supple, normal inspection Cardiovascular: normal peripheral pulses, normal rate, regular rhythm, no gallop/murmur, no JVD Respiratory/Chest: non-rebreather; chest wall non-tender, respiratory distress , decreased breath sounds, crackles/rales, rhonchi - bilaterally, expiratory wheezing Abdomen: normal bowel sounds, non tender, soft, no organomegaly, no mass Extremities: normal range of motion Neurologic: records management associate II-XII grossly normal, no motor/sensory deficits Skin: normal pigmentation, warm/dry Assessment/Plan Problem List: (1) Allergic rhinitis (2) Hypertension Assessment & Plan: Continue lisinopril and hydralazine (3) Hypercholesteremia Assessment & Plan: Continue pravachol (4) Osteoporosis (5) Anxiety (6) Cough (7) SOB (shortness of breath) Assessment & Plan: Due to pneumonia and COPD; continue non rebreather mask per pulmonary. (8) Pneumonia Assessment & Plan: Continue Meropenem. See ID and pulmonary notes. (9) COPD exacerbation Assessment & Plan: Continue IV solumedrol and xopenex/atrovent nebs. See pulmonary note. (10) Diastolic CHF Assessment & Plan: See cardiology note. (11) Constipation Assessment & Plan: Ducolax suppository prn Status: not improved ZEB FUENTES Feb 22, 2017 11:53
[2017-02-22 12:00] VITALS: BP 93/55
--- NOTE | 2017-02-22 12:37 | Pulmonology Progress Note ---
Assessment/Plan Assessment/Plan ASSESSMENT acute on chronic respiratory failure requiring NRM COPD exacerbation acute diastolic CHF possible PNA moderate MR moderate pulmonary HTN Hx of SDH and ICH Anemia of chronic disease Hx of breast Ca HTN Hx of C dif colitis dysphagia PLAN OF CARE CAYETANO dc Lasix gtt due to worsening creatinine and no significant change on CXR monitor I/O, renal parameter, lytes, replace as needed last CXR with asymmetric pulmonary edema versus infiltrate predominantly in the right lung. pro BNP not significantly elevated fup with CXR and pro BNP taper IV steroids and change to oral in am pulmonary toilet titrate O2 to keep sat above 92% a/tussive prn abx blood cx preliminary negative ,influenza screen negative Venous Duplex BLE negative ECHO with EF 50% and RVSP if 43, c/w moderate pulmonary HTN, + moderate MR BP management with BB, CCB and NORMA and optimize as needed pain management DVT prophylaxis BSSE with evidence of dysphagia diet as per ST recommendations strict aspiration/reflux precautions case discussed and evaluated by supervising physician Subjective Allergies: Coded Allergies: TETRACYCLINE (Unverified Allergy, Unknown, 07/24/14) Subjective afebrile, still leukocytosis VSS awake, responsive still on 100%NRM creat worsening-1.5 patient reports feeling slightly better no chest pain Objective Last 24 Hour Vital Signs Date Time Temp Pulse Resp B/P (MAP) Pulse Ox O2 Delivery O2 Flow Rate FiO2 02/22/17 08:23 123/48 02/22/17 08:22 108 123/48 02/22/17 08:00 97.6 94 16 123/48 94 Non-Rebreather 02/22/17 07:51 101 02/22/17 04:00 98.0 95 20 103/55 96 Non-Rebreather 02/22/17 04:00 89 02/22/17 01:49 98.4 02/22/17 00:00 99 02/22/17 00:00 98.4 97 24 118/64 96 Non-Rebreather 15.0 02/21/17 21:27 96 105/57 02/21/17 20:00 103 02/21/17 20:00 97.9 102 24 105/60 96 Non-Rebreather 15.0 02/21/17 19:37 Non-Rebreather 15.0 100 02/21/17 19:37 110 18 Non-Rebreather 15.0 100 02/21/17 19:36 94 Non-Rebreather 15.0 100 02/21/17 18:02 111/61 02/21/17 16:00 95 02/21/17 16:00 97.6 97 18 111/61 96 Non-Rebreather 15.0 Intake and Output 02/22/17 02/23/17 19:00 07:00 Intake Total 126 ml Balance 126 ml IV Total 126 ml Objective General Appearance: no acute distress, awake, alert, elderly female HEENT: normocephalic, atraumatic, anicteric, mucous membranes moist, 100% NRM Respiratory/Chest: no accessory muscle use, occasional expiratory wheezing Cardiovascular: normal rate and rhythm, mild ST up to 110 Abdomen: normal bowel sounds, soft, non tender, non distended Extremities: pedal pulses normal, trace edema BLE Neurologic/Psychiatric: alert, responsive, bedridden Musculoskeletal: atrophy - BLE Microbiology Date/Time Source Procedure Growth Status 02/19/17 18:40 Nasal Nares Right Influenza Types A,B Antigen (MONA) - Final Complete Laboratory Tests 02/21/17 23:15: Vancomycin Level Trough 31.6H 02/22/17 04:30: White Blood Count 13.6H, Red Blood Count 3.17L, Hemoglobin 10.2L, Hematocrit 31.9L, Mean Corpuscular Volume 101H, Mean Corpuscular Hemoglobin 32.2H, Mean Corpuscular Hemoglobin Concent 32.0, Red Cell Distribution Width 12.4, Platelet Count 242, Mean Platelet Volume 6.7, Neutrophils (%) (Auto) 74.3, Lymphocytes (% ) (Auto) 18.4L, Monocytes (%) (Auto) 5.3, Eosinophils (%) (Auto) 1.2, Basophils (%) (Auto) 0.7, Sodium Level 135L, Potassium Level 3.5, Chloride Level 95L, Carbon Dioxide Level 35H, Anion Gap 5, Blood Urea Nitrogen 60H, Creatinine 1.5H , Estimat Glomerular Filtration Rate , Glucose Level 105, Calcium Level 9.2, Pro -B-Type Natriuretic Peptide 550H Current Medications Medications (Trade) Dose Ordered Sig/Wilner Route PRN Reason Start Time Stop Time Status Last Admin Dose Admin Acetaminophen (Tylenol) 650 mg Q4H PRN ORAL FEVER 02/15/17 22:45 03/17/17 22:44 Acetaminophen/ Hydrocodone Bitart ([place] 5/325) 1 tab Q6H PRN ORAL Moderate Pain (Pain Scale 4-6) 02/16/17 12:00 02/23/17 11:59 02/17/17 05:00 Amlodipine Besylate (Norvasc) 2.5 mg BIDPRN PRN ORAL sbp greater than 160 02/17/17 16:45 03/19/17 16:44 02/18/17 19:52 Aspirin (Ecotrin) 81 mg DAILY ORAL 02/17/17 09:00 03/19/17 08:59 02/22/17 08:20 Bisacodyl (Dulcolax) 10 mg DAILYPRN PRN RECTAL Constipation 02/22/17 12:00 03/24/17 11:59 Carvedilol (Coreg) 3.125 mg Q12HR ORAL 02/16/17 12:00 03/18/17 11:59 02/22/17 08:22 Dextrose (Dextrose 50%) STAT PRN IV Hypoglycemia 02/15/17 22:45 03/17/17 22:44 Escitalopram Oxalate (Lexapro) 10 mg DAILY ORAL 02/18/17 09:00 03/20/17 08:59 02/22/17 08:23 Heparin Sodium (Porcine) (Heparin 5000 units/ml) 5,000 units EVERY 12 HOURS SUBQ 02/16/17 09:00 03/18/17 08:59 02/18/17 09:10 Hydralazine HCl (Apresoline) 10 mg Q8H PRN IV SBP > 160, SECOND LINE AGENT 02/17/17 17:00 03/19/17 14:29 Ipratropium [place] (Atrovent) 500 mcg EVERY 4 HOURS PRN HHN Bronchospasm 02/21/17 16:15 02/26/17 16:14 Levalbuterol HCl (Xopenex) 1.25 mg EVERY 4 HOURS PRN HHN Bronchospasm 02/21/17 16:15 02/26/17 16:14 Lidocaine (Xylocaine 1% MPF 5ml) 10 ml Q4H PRN HHN cough 02/17/17 10:15 03/19/17 10:14 Lisinopril (Zestril) 5 mg BID ORAL 02/19/17 18:00 03/21/17 17:59 02/22/17 08:23 Lorazepam (Ativan 2mg/ml 1ml) 2 mg EVERY 2 HOURS PRN IV For Anxiety 02/21/17 21:30 02/28/17 23:59 Meropenem 1 gm/ Sodium Chloride 110 ml @ 220 mls/hr Q12HR IVPB 02/18/17 21:00 02/23/17 20:59 02/22/17 08:22 Methadone HCl (Methadone HCl) 5 mg EVERY 12 HOURS ORAL 02/16/17 21:00 02/23/17 20:59 02/22/17 08:24 Methylprednisolone Sodium Succinate (Solu-MEDROL) 20 mg DAILY IVP 02/21/17 09:00 03/23/17 08:59 02/22/17 08:19 Morphine Sulfate (Morphine Sulfate) 4 mg EVERY 4 HOURS PRN IVP Severe Pain (Pain Scale 7-10) 02/21/17 21:30 02/28/17 23:59 02/22/17 01:19 Ondansetron HCl (Zofran) 4 mg Q6H PRN IVP Nausea & Vomiting 02/15/17 22:45 03/17/17 22:44 02/22/17 06:53 Polyethylene Glycol (Miralax) 17 gm DAILYPRN PRN ORAL Constipation 02/20/17 18:15 03/22/17 18:14 Polyethylene Glycol (Miralax) 17 gm DAILYPRN PRN ORAL Constipation 02/15/17 22:45 03/17/17 22:44 02/17/17 04:59 Pravastatin Sodium (Pravachol) 20 mg BEDTIME ORAL 02/16/17 21:00 03/18/17 20:59 02/21/17 21:26 Pregabalin (Lyrica) 150 mg THREE TIMES A DAY ORAL 02/16/17 13:00 03/18/17 12:59 02/22/17 09:05 Promethazine HCl/ Codeine (Phenergan with Codeine) 5 ml Q4H PRN ORAL For Cough 02/16/17 10:45 03/18/17 10:44 02/18/17 09:07 Vancomycin HCl (Vanco rx to dose) 1 ea DAILY PRN MISC PER RX PROTOCOL 02/16/17 07:45 11/8/17 07:44 Seo ([facility]),Cassidy [id number] Feb 22, 2017 12:37
[2017-02-22] MEDS ORDERED: Albuterol/Ipratropium 3ml neb HHN PRN (13:00)
[2017-02-22 16:00] VITALS: BP 110/79
--- NOTE | 2017-02-22 18:53 | General Progress Note ---
Assessment/Plan Status: stable Assessment/Plan anxiety d/o' -cont current meds -provided ro/st Subjective Constitutional: Reports: malaise, weakness Neurologic/Psychiatric: Reports: anxiety, depressed, emotional problems Allergies: Coded Allergies: TETRACYCLINE (Unverified Allergy, Unknown, 07/24/14) Subjective anxious today med seeking Objective Last 24 Hour Vital Signs Date Time Temp Pulse Resp B/P (MAP) Pulse Ox O2 Delivery O2 Flow Rate FiO2 02/22/17 18:11 122/74 02/22/17 17:28 100 27 90 Facial 100 02/22/17 17:08 100 02/22/17 16:00 103 02/22/17 13:44 Non-Rebreather 15.0 100 02/22/17 13:44 107 20 Non-Rebreather 15.0 100 02/22/17 12:00 97.3 111 18 93/55 84 Non-Rebreather 15.0 02/22/17 08:23 123/48 02/22/17 08:22 108 123/48 02/22/17 08:00 97.6 94 16 123/48 94 Non-Rebreather 02/22/17 07:51 101 02/22/17 04:00 98.0 95 20 103/55 96 Non-Rebreather 02/22/17 04:00 89 02/22/17 01:49 98.4 02/22/17 00:00 99 02/22/17 00:00 98.4 97 24 118/64 96 Non-Rebreather 15.0 02/21/17 21:27 96 105/57 02/21/17 20:00 103 02/21/17 20:00 97.9 102 24 105/60 96 Non-Rebreather 15.0 02/21/17 19:37 Non-Rebreather 15.0 100 02/21/17 19:37 110 18 Non-Rebreather 15.0 100 02/21/17 19:36 94 Non-Rebreather 15.0 100 Intake and Output 02/22/17 02/23/17 19:00 07:00 Intake Total 126 ml Balance 126 ml IV Total 126 ml Laboratory Tests 02/21/17 23:15: Vancomycin Level Trough 31.6H 02/22/17 04:30: White Blood Count 13.6H, Red Blood Count 3.17L, Hemoglobin 10.2L, Hematocrit 31.9L, Mean Corpuscular Volume 101H, Mean Corpuscular Hemoglobin 32.2H, Mean Corpuscular Hemoglobin Concent 32.0, Red Cell Distribution Width 12.4, Platelet Count 242, Mean Platelet Volume 6.7, Neutrophils (%) (Auto) 74.3, Lymphocytes (% ) (Auto) 18.4L, Monocytes (%) (Auto) 5.3, Eosinophils (%) (Auto) 1.2, Basophils (%) (Auto) 0.7, Sodium Level 135L, Potassium Level 3.5, Chloride Level 95L, Carbon Dioxide Level 35H, Anion Gap 5, Blood Urea Nitrogen 60H, Creatinine 1.5H , Estimat Glomerular Filtration Rate , Glucose Level 105, Calcium Level 9.2, Pro -B-Type Natriuretic Peptide 550H 02/22/17 12:48: Arterial Blood pH 7.400, Arterial Blood Partial Pressure CO2 64.1*H, Arterial Blood Partial Pressure O2 64.0L, Arterial Blood HCO3 38.8H, Arterial Blood Oxygen Saturation 86.4L, Arterial Blood Base Excess 11.8, Scooby Test Positive Height (Feet): 5 Height (Inches): 7.00 Weight (Pounds): 121 General Appearance: no apparent distress, obese Neurologic: alert, oriented x 3, responsive, depressed affect Wan Stern M.D. Feb 22, 2017 18:53
[2017-02-22] MEDS: LORazepam Inj 2mg/ml 1ml IV PRN (18:56)
--- NOTE | 2017-02-22 19:38 | Cardiology Progress Note ---
Assessment/Plan Assessment/Plan her BUN and creatinine continue going up, she is on prednisone, will avodi diuretics, monitor closely Subjective Subjective ther dyspnea is somewhat worse today, more wheezing Objective Last 24 Hour Vital Signs Date Time Temp Pulse Resp B/P (MAP) Pulse Ox O2 Delivery O2 Flow Rate FiO2 02/22/17 19:13 94 Bi-pap 100 02/22/17 19:13 Bi-pap 100 02/22/17 19:12 104 28 Bi-pap 100 02/22/17 19:11 104 28 94 Facial 100 02/22/17 18:11 122/74 02/22/17 17:28 100 27 90 Facial 100 02/22/17 17:08 100 02/22/17 16:00 103 02/22/17 16:00 97.5 106 16 110/79 88 Non-Rebreather 15.0 02/22/17 13:44 Non-Rebreather 15.0 100 02/22/17 13:44 107 20 Non-Rebreather 15.0 100 02/22/17 12:00 97.3 111 18 93/55 84 Non-Rebreather 15.0 02/22/17 08:23 123/48 02/22/17 08:22 108 123/48 02/22/17 08:00 97.6 94 16 123/48 94 Non-Rebreather 02/22/17 07:51 101 02/22/17 04:00 98.0 95 20 103/55 96 Non-Rebreather 02/22/17 04:00 89 02/22/17 01:49 98.4 02/22/17 00:00 99 02/22/17 00:00 98.4 97 24 118/64 96 Non-Rebreather 15.0 02/21/17 21:27 96 105/57 02/21/17 20:00 103 02/21/17 20:00 97.9 102 24 105/60 96 Non-Rebreather 15.0 02/21/17 19:37 Non-Rebreather 15.0 100 02/21/17 19:37 110 18 Non-Rebreather 15.0 100 General Appearance: alert, mild distress EENT: PERRL/EOMI Neck: supple Rhythm: NSR Cardiovascular: regular rhythm Respiratory/Chest: accessory muscle use, expiratory wheezing Abdomen: distended Extremities: no swelling Intake and Output 02/22/17 02/23/17 19:00 07:00 Intake Total 126 ml Balance 126 ml IV Total 126 ml Laboratory Tests Test 02/21/17 23:15 02/22/17 04:30 02/22/17 12:48 Vancomycin Level Trough 31.6 ug/mL (5.0-12.0) H White Blood Count 13.6 K/UL (4.8-10.8) H Red Blood Count 3.17 M/UL (4.20-5.40) L Hemoglobin 10.2 G/DL (12.0-16.0) L Hematocrit 31.9 % (37.0-47.0) L Mean Corpuscular Volume 101 FL (80-99) H Mean Corpuscular Hemoglobin 32.2 PG (27.0-31.0) H Mean Corpuscular Hemoglobin Concent 32.0 G/DL (32.0-36.0) Red Cell Distribution Width 12.4 % (11.6-14.8) Platelet Count 242 K/UL (150-450) Mean Platelet Volume 6.7 FL (6.5-10.1) Neutrophils (%) (Auto) 74.3 % (45.0-75.0) Lymphocytes (%) (Auto) 18.4 % (20.0-45.0) L Monocytes (%) (Auto) 5.3 % (1.0-10.0) Eosinophils (%) (Auto) 1.2 % (0.0-3.0) Basophils (%) (Auto) 0.7 % (0.0-2.0) Sodium Level 135 MMOL/L (136-145) L Potassium Level 3.5 MMOL/L (3.5-5.1) Chloride Level 95 MMOL/L (98-107) L Carbon Dioxide Level 35 MMOL/L (21-32) H Anion Gap 5 (5-15) Blood Urea Nitrogen 60 mg/dL (7-18) H Creatinine 1.5 MG/DL (0.55-1.30) H Estimat Glomerular Filtration Rate mL/min (>60) Glucose Level 105 MG/DL (74-106) Calcium Level 9.2 MG/DL (8.5-10.1) Pro-B-Type Natriuretic Peptide 550 (0-125) H Arterial Blood pH 7.400 (7.350-7.450) Arterial Blood Partial Pressure CO2 64.1 mmHg (35.0-45.0) *H Arterial Blood Partial Pressure O2 64.0 mmHg (75.0-100.0) L Arterial Blood HCO3 38.8 mmol/L (22.0-26.0) H Arterial Blood Oxygen Saturation 86.4 % (92.0-98.0) L Arterial Blood Base Excess 11.8 Scooby Test Positive RAPHAEL CR Feb 22, 2017 19:38
[2017-02-22 20:00] VITALS: BP 95/55
[2017-02-23] VITALS: BP 109/50
[2017-02-23 04:00] VITALS: BP 139/78
[2017-02-23 06:13] LABS: BASOPHILS % (AUTO) 0.4 % (0.0-2.0); EOSINOPHILS % (AUTO) 0.8 % (0.0-3.0); HEMATOCRIT 32.9 % (37.0-47.0); HEMOGLOBIN 10.9 G/DL (12.0-16.0); LYMPHOCYTES % (AUTO) 16.5 % (20.0-45.0); MEAN CORPUSCULAR VOLUME 103 FL (80-99); MONOCYTES % (AUTO) 5.7 % (1.0-10.0); NEUTROPHILS % (AUTO) 76.6 % (45.0-75.0); PLATELET COUNT 263 K/UL (150-450); RED CELL DISTRIBUTION WIDTH 12.1 % (11.6-14.8); WHITE BLOOD COUNT 14.4 K/UL (4.8-10.8)
[2017-02-23 06:58] LABS: ANION GAP 8 (5-15); BLOOD UREA NITROGEN 64 mg/dL (7-18); CALCIUM 9.6 MG/DL (8.5-10.1); CARBON DIOXIDE 33 MMOL/L (21-32); CHLORIDE 97 MMOL/L (98-107); CREATININE 1.2 MG/DL (0.55-1.30); POTASSIUM 3.7 MMOL/L (3.5-5.1); SODIUM 138 MMOL/L (136-145)
[2017-02-23 08:00] VITALS: BP 136/78
[2017-02-23] MEDS: Heparin 5000 units/ml inj SUBQ SCH ×2 (09:00→20:22)
[2017-02-23] MEDS: Solu-MEDROL 40mg Inj IVP SCH (09:01)
[2017-02-23] MEDS: Meropenem 1 GM in NS 110 ML IVPB SCH ×2 (09:01→20:21)
[2017-02-23] MEDS: Lisinopril 2.5mg tab ORAL SCH ×2 (09:02→18:18)
[2017-02-23] MEDS: Aspirin EC 81mg tab ORAL SCH (09:03)
[2017-02-23] MEDS: Lyrica 75mg cap ORAL SCH ×3 (09:04→18:19)
--- NOTE | 2017-02-23 10:32 | Internal Med Progress Note ---
Subjective Date of Service: Feb 23, 2017 Physician Name Zeb Fuentes Attending Physician Jun Cedillo MD Current Medications Medications (Trade) Dose Ordered Sig/Wilner Route PRN Reason Start Time Stop Time Status Last Admin Dose Admin Acetaminophen (Tylenol) 650 mg Q4H PRN ORAL FEVER 02/15/17 22:45 03/17/17 22:44 Acetaminophen/ Hydrocodone Bitart (Lorimor 5/325) 1 tab Q6H PRN ORAL Moderate Pain (Pain Scale 4-6) 02/16/17 12:00 02/23/17 11:59 02/17/17 05:00 Albuterol/ Ipratropium (DuoNeb 0.5-3(2.5)mg/3ml) 3 ml Q4HRT PRN HHN sob 02/22/17 13:00 02/27/17 12:59 Amlodipine Besylate (Norvasc) 2.5 mg BIDPRN PRN ORAL sbp greater than 160 02/17/17 16:45 03/19/17 16:44 02/18/17 19:52 Aspirin (Ecotrin) 81 mg DAILY ORAL 02/17/17 09:00 03/19/17 08:59 02/23/17 09:03 Bisacodyl (Dulcolax) 10 mg DAILYPRN PRN RECTAL Constipation 02/22/17 12:00 03/24/17 11:59 02/23/17 06:33 Carvedilol (Coreg) 3.125 mg Q12HR ORAL 02/16/17 12:00 03/18/17 11:59 02/23/17 09:02 Dextrose (Dextrose 50%) STAT PRN IV Hypoglycemia 02/15/17 22:45 03/17/17 22:44 Escitalopram Oxalate (Lexapro) 10 mg DAILY ORAL 02/18/17 09:00 03/20/17 08:59 02/23/17 09:01 Heparin Sodium (Porcine) (Heparin 5000 units/ml) 5,000 units EVERY 12 HOURS SUBQ 02/16/17 09:00 03/18/17 08:59 02/18/17 09:10 Hydralazine HCl (Apresoline) 10 mg Q8H PRN IV SBP > 160, SECOND LINE AGENT 02/17/17 17:00 03/19/17 14:29 Levalbuterol HCl (Xopenex) 1.25 mg EVERY 4 HOURS PRN HHN Bronchospasm 02/21/17 16:15 02/26/17 16:14 Lidocaine (Xylocaine 1% MPF 5ml) 10 ml Q4H PRN HHN cough 02/17/17 10:15 03/19/17 10:14 Lisinopril (Zestril) 5 mg BID ORAL 02/19/17 18:00 03/21/17 17:59 02/23/17 09:02 Lorazepam (Ativan 2mg/ml 1ml) 2 mg EVERY 2 HOURS PRN IV For Anxiety 02/21/17 21:30 02/28/17 23:59 02/22/17 18:56 Meropenem 1 gm/ Sodium Chloride 110 ml @ 220 mls/hr Q12HR IVPB 02/18/17 21:00 02/28/17 20:59 02/23/17 09:01 Methadone HCl (Methadone HCl) 5 mg EVERY 12 HOURS ORAL 02/16/17 21:00 02/23/17 20:59 02/23/17 09:03 Methylprednisolone Sodium Succinate (Solu-MEDROL) 20 mg DAILY IVP 02/21/17 09:00 03/23/17 08:59 02/23/17 09:01 Morphine Sulfate (Morphine Sulfate) 4 mg EVERY 4 HOURS PRN IVP Severe Pain (Pain Scale 7-10) 02/21/17 21:30 02/28/17 23:59 02/22/17 01:19 Ondansetron HCl (Zofran) 4 mg Q6H PRN IVP Nausea & Vomiting 02/15/17 22:45 03/17/17 22:44 02/22/17 06:53 Polyethylene Glycol (Miralax) 17 gm DAILYPRN PRN ORAL Constipation 02/20/17 18:15 03/22/17 18:14 Polyethylene Glycol (Miralax) 17 gm DAILYPRN PRN ORAL Constipation 02/15/17 22:45 03/17/17 22:44 02/17/17 04:59 Pravastatin Sodium (Pravachol) 20 mg BEDTIME ORAL 02/16/17 21:00 03/18/17 20:59 02/21/17 21:26 Pregabalin (Lyrica) 150 mg THREE TIMES A DAY ORAL 02/16/17 13:00 03/18/17 12:59 02/23/17 09:04 Promethazine HCl/ Codeine (Phenergan with Codeine) 5 ml Q4H PRN ORAL For Cough 02/16/17 10:45 03/18/17 10:44 02/18/17 09:07 Vancomycin HCl (Vanco rx to dose) 1 ea DAILY PRN MISC PER RX PROTOCOL 02/16/17 07:45 03/18/17 07:44 Vancomycin/Sodium Chloride 250 ml @ 166.667 mls/hr Q24H IVPB 02/23/17 21:00 02/28/17 20:59 Allergies: Coded Allergies: TETRACYCLINE (Unverified Allergy, Unknown, 07/24/14) ROS Limited/Unobtainable: No Constitutional: Reports: no symptoms HEENT: Reports: no symptoms Cardiovascular: Reports: no symptoms Respiratory: Reports: shortness of breath Gastrointestinal/Abdominal: Reports: no symptoms Genitourinary: Reports: no symptoms Neurologic/Psychiatric: Reports: no symptoms Subjective 76 YO F admitted with shortness of breath. Now pneumonia. Cover for Int Med- Dr Cedillo. CAYET[place]O. Currently on non-rebreather. Objective Last Vital Signs Date Time Temp Pulse Resp B/P (MAP) Pulse Ox O2 Delivery O2 Flow Rate FiO2 02/23/17 09:02 123/64 02/23/17 09:02 111 02/23/17 08:00 98.2 20 100 Non-Rebreather 15.0 02/23/17 07:24 100 Laboratory Tests Test 02/22/17 12:48 02/23/17 04:45 02/23/17 10:20 Arterial Blood pH 7.400 (7.350-7.450) Pending Arterial Blood Partial Pressure CO2 64.1 mmHg (35.0-45.0) *H Pending Arterial Blood Partial Pressure O2 64.0 mmHg (75.0-100.0) L Pending Arterial Blood HCO3 38.8 mmol/L (22.0-26.0) H Pending Arterial Blood Oxygen Saturation 86.4 % (92.0-98.0) L Pending Arterial Blood Base Excess 11.8 Pending Scooby Test Positive Pending White Blood Count 14.4 K/UL (4.8-10.8) H Red Blood Count 3.20 M/UL (4.20-5.40) L Hemoglobin 10.9 G/DL (12.0-16.0) L Hematocrit 32.9 % (37.0-47.0) L Mean Corpuscular Volume 103 FL (80-99) H Mean Corpuscular Hemoglobin 34.1 PG (27.0-31.0) H Mean Corpuscular Hemoglobin Concent 33.1 G/DL (32.0-36.0) Red Cell Distribution Width 12.1 % (11.6-14.8) Platelet Count 263 K/UL (150-450) Mean Platelet Volume 7.1 FL (6.5-10.1) Neutrophils (%) (Auto) 76.6 % (45.0-75.0) H Lymphocytes (%) (Auto) 16.5 % (20.0-45.0) L Monocytes (%) (Auto) 5.7 % (1.0-10.0) Eosinophils (%) (Auto) 0.8 % (0.0-3.0) Basophils (%) (Auto) 0.4 % (0.0-2.0) Sodium Level 138 MMOL/L (136-145) Potassium Level 3.7 MMOL/L (3.5-5.1) Chloride Level 97 MMOL/L (98-107) L Carbon Dioxide Level 33 MMOL/L (21-32) H Anion Gap 8 (5-15) Blood Urea Nitrogen 64 mg/dL (7-18) H Creatinine 1.2 MG/DL (0.55-1.30) Estimat Glomerular Filtration Rate mL/min (>60) Glucose Level 77 MG/DL (74-106) Calcium Level 9.6 MG/DL (8.5-10.1) Pro-B-Type Natriuretic Peptide 703 (0-125) H Random Vancomycin Level 21.0 ug/mL Objective General Appearance: WD/WN, no apparent distress, alert EENT: PERRL/EOMI, normal ENT inspection, TMs normal Neck: non-tender, normal alignment, supple, normal inspection Cardiovascular: normal peripheral pulses, normal rate, regular rhythm, no gallop/murmur, no JVD Respiratory/Chest: non-rebreather; chest wall non-tender, respiratory distress , decreased breath sounds, crackles/rales, rhonchi - bilaterally, expiratory wheezing Abdomen: normal bowel sounds, non tender, soft, no organomegaly, no mass Extremities: normal range of motion Neurologic: physical therapy aid II-XII grossly normal, no motor/sensory deficits Skin: normal pigmentation, warm/dry Assessment/Plan Problem List: (1) Allergic rhinitis (2) Hypertension Assessment & Plan: Continue lisinopril and hydralazine (3) Hypercholesteremia Assessment & Plan: Continue pravachol (4) Osteoporosis (5) Anxiety (6) Cough (7) SOB (shortness of breath) Assessment & Plan: Due to pneumonia and COPD; continue non rebreather mask per pulmonary. (8) Pneumonia Assessment & Plan: Continue Meropenem. See ID and pulmonary notes. (9) COPD exacerbation Assessment & Plan: Continue IV solumedrol and xopenex/atrovent nebs. See pulmonary note. (10) Diastolic CHF Assessment & Plan: See cardiology note. (11) Constipation Assessment & Plan: Ducolax suppository prn (12) Renal failure Assessment & Plan: D/C lasix per cardiology Status: not improved ZEB FUENTES Feb 23, 2017 10:32
--- NOTE | 2017-02-23 10:40 | Diagnostic Imaging Report ---
Indication: SOB Technique: One view of the chest Comparison: 02/22/2017 Findings: Better inspiration currently. Overall improved aeration of the right mid and lower lung, with decreased dense consolidation and is still fairly extensive parenchymal opacity. The right pleural space is clear. Large left pleural effusion is again demonstrated, and is increased from the prior exam. There is also increasing consolidation of the residual aerated lung in the left upper hemithorax. The heart is probably enlarged. Surgical clips are seen in the right hilar region and right axilla Impression: Increasing left-sided pleural effusion and increasing left lung parenchymal consolidation, over one day Improved aeration but still considerable disease of the right lung
--- NOTE | 2017-02-23 11:08 | Consultation ---
Consult Note Consult Note asked to eval for worsening renal failure- patient poor historian examined- data and meds reviewed discussed with Rn . Assessment/Plan Status: Acute renal failure- etiology? 1900 cc urine out after insertion of shi Acute on Chronic respiratory failure- HTN High Cholestrol Pneumonia COPD , exac. Diastolic CHF, Mod MR h/o C dif colitis h/o Breast Ca Anemia Pulm HTN Moderate Plan: Urine studies- Shi- Avoid nephrotoxics taper steroids as possible GENARO DUARTE Feb 23, 2017 11:08
--- NOTE | 2017-02-23 11:26 | Pulmonology Progress Note ---
Assessment/Plan Problems: (1) Acute and chronic respiratory failure ([id number]) (2) COPD exacerbation (3) Pneumonia (4) Fibromyalgia (5) History of breast cancer (6) Limited mobility Assessment/Plan US of chest to see if enough fluid for thoracentesis is available CXR today showing increasing effusion chest PT keep in CAYETANO check sputum, no sputum yet cxr and bnp in am Subjective Interval Events: less short of breath, still on 100% NRM Constitutional: Reports: no symptoms HEENT: Repors: no symptoms Allergies: Coded Allergies: TETRACYCLINE (Unverified Allergy, Unknown, 07/24/14) Objective Last 24 Hour Vital Signs Date Time Temp Pulse Resp B/P (MAP) Pulse Ox O2 Delivery O2 Flow Rate FiO2 02/23/17 09:02 123/64 02/23/17 09:02 111 123/64 02/23/17 08:00 98.2 107 20 136/78 100 Non-Rebreather 15.0 02/23/17 07:24 Non-Rebreather 100 02/23/17 07:23 93 Non-Rebreather 15.0 100 02/23/17 07:22 128 27 Non-Rebreather 100 02/23/17 04:00 89 02/23/17 04:00 97.9 89 20 139/78 100 Non-Rebreather 15.0 02/23/17 00:52 94 19 98 Facial 100 02/23/17 00:00 100 02/23/17 00:00 100 02/23/17 00:00 97.6 89 17 109/50 100 Bi-pap 02/22/17 23:04 91 17 95 Facial 100 02/22/17 21:00 91 95/55 02/22/17 20:48 91 15 98 Facial 100 02/22/17 20:00 96 02/22/17 20:00 97.7 99 14 95/55 100 Bi-pap 02/22/17 19:13 94 Bi-pap 100 02/22/17 19:13 Bi-pap 100 02/22/17 19:12 104 28 Bi-pap 100 02/22/17 19:11 104 28 94 Facial 100 02/22/17 18:11 122/74 02/22/17 17:28 100 27 90 Facial 100 02/22/17 17:08 100 02/22/17 16:00 103 02/22/17 16:00 97.5 106 16 110/79 88 Non-Rebreather 15.0 02/22/17 13:44 Non-Rebreather 15.0 100 02/22/17 13:44 107 20 Non-Rebreather 15.0 100 02/22/17 12:00 97.3 111 18 93/55 84 Non-Rebreather 15.0 Objective still dyspnic, with spells of cough General Appearance: WD/WN HEENT: normocephalic, atraumatic Respiratory/Chest: chest wall non-tender, normal breath sounds Cardiovascular: normal peripheral pulses, normal rate, no JVD Abdomen: soft, non tender Genitourinary: normal external genitalia Extremities: no cyanosis Skin: no rash Laboratory Tests 02/22/17 12:48: Arterial Blood pH 7.400, Arterial Blood Partial Pressure CO2 64.1*H, Arterial Blood Partial Pressure O2 64.0L, Arterial Blood HCO3 38.8H, Arterial Blood Oxygen Saturation 86.4L, Arterial Blood Base Excess 11.8, Scooby Test Positive 02/23/17 03:45: Uric Acid [Pending], Phosphorus Level [Pending], Magnesium Level [Pending], Total Bilirubin [Pending], Direct Bilirubin [Pending], Aspartate Amino Transf ( AST/SGOT) [Pending], Alanine Aminotransferase (ALT/SGPT) [Pending], Alkaline Phosphatase [Pending], Total Protein [Pending], Albumin [Pending] 02/23/17 04:45: White Blood Count 14.4H, Red Blood Count 3.20L, Hemoglobin 10.9L, Hematocrit 32.9L, Mean Corpuscular Volume 103H, Mean Corpuscular Hemoglobin 34.1H, Mean Corpuscular Hemoglobin Concent 33.1, Red Cell Distribution Width 12.1, Platelet Count 263, Mean Platelet Volume 7.1, Neutrophils (%) (Auto) 76.6H, Lymphocytes ( %) (Auto) 16.5L, Monocytes (%) (Auto) 5.7, Eosinophils (%) (Auto) 0.8, Basophils (%) (Auto) 0.4, Sodium Level 138, Potassium Level 3.7, Chloride Level 97L, Carbon Dioxide Level 33H, Anion Gap 8, Blood Urea Nitrogen 64H, Creatinine 1.2, Estimat Glomerular Filtration Rate , Glucose Level 77, Calcium Level 9.6, Pro-B-Type Natriuretic Peptide 703H, Random Vancomycin Level 21.0 02/23/17 10:20: Arterial Blood pH 7.395, Arterial Blood Partial Pressure CO2 62.1*H, Arterial Blood Partial Pressure O2 64.0L, Arterial Blood HCO3 37.2H, Arterial Blood Oxygen Saturation 78.4L, Arterial Blood Base Excess 10.3, Scooby Test Positive Current Medications Medications (Trade) Dose Ordered Sig/Wilner Route PRN Reason Start Time Stop Time Status Last Admin Dose Admin Acetaminophen (Tylenol) 650 mg Q4H PRN ORAL FEVER 02/15/17 22:45 03/17/17 22:44 Acetaminophen/ Hydrocodone Bitart (Rena Lara 5/325) 1 tab Q6H PRN ORAL Moderate Pain (Pain Scale 4-6) 02/16/17 12:00 02/23/17 11:59 02/17/17 05:00 Albuterol/ Ipratropium (DuoNeb 0.5-3(2.5)mg/3ml) 3 ml Q4HRT PRN HHN sob 02/22/17 13:00 02/27/17 12:59 Amlodipine Besylate (Norvasc) 2.5 mg BIDPRN PRN ORAL sbp greater than 160 02/17/17 16:45 03/19/17 16:44 02/18/17 19:52 Aspirin (Ecotrin) 81 mg DAILY ORAL 02/17/17 09:00 03/19/17 08:59 02/23/17 09:03 Bisacodyl (Dulcolax) 10 mg DAILYPRN PRN RECTAL Constipation 02/22/17 12:00 03/24/17 11:59 02/23/17 06:33 Carvedilol (Coreg) 3.125 mg Q12HR ORAL 02/16/17 12:00 03/18/17 11:59 02/23/17 09:02 Dextrose (Dextrose 50%) STAT PRN IV Hypoglycemia 02/15/17 22:45 03/17/17 22:44 Escitalopram Oxalate (Lexapro) 10 mg DAILY ORAL 02/18/17 09:00 03/20/17 08:59 02/23/17 09:01 Heparin Sodium (Porcine) (Heparin 5000 units/ml) 5,000 units EVERY 12 HOURS SUBQ 02/16/17 09:00 03/18/17 08:59 02/18/17 09:10 Hydralazine HCl (Apresoline) 10 mg Q8H PRN IV SBP > 160, SECOND LINE AGENT 02/17/17 17:00 03/19/17 14:29 Levalbuterol HCl (Xopenex) 1.25 mg EVERY 4 HOURS PRN HHN Bronchospasm 02/21/17 16:15 02/26/17 16:14 Lidocaine (Xylocaine 1% MPF 5ml) 10 ml Q4H PRN HHN cough 02/17/17 10:15 03/19/17 10:14 Lisinopril (Zestril) 5 mg BID ORAL 02/19/17 18:00 03/21/17 17:59 02/23/17 09:02 Lorazepam (Ativan 2mg/ml 1ml) 2 mg EVERY 2 HOURS PRN IV For Anxiety 02/21/17 21:30 02/28/17 23:59 02/22/17 18:56 Meropenem 1 gm/ Sodium Chloride 110 ml @ 220 mls/hr Q12HR IVPB 02/18/17 21:00 02/28/17 20:59 02/23/17 09:01 Methadone HCl (Methadone HCl) 5 mg EVERY 12 HOURS ORAL 02/16/17 21:00 02/23/17 20:59 02/23/17 09:03 Methylprednisolone Sodium Succinate (Solu-MEDROL) 20 mg DAILY IVP 02/21/17 09:00 03/23/17 08:59 02/23/17 09:01 Morphine Sulfate (Morphine Sulfate) 4 mg EVERY 4 HOURS PRN IVP Severe Pain (Pain Scale 7-10) 02/21/17 21:30 02/28/17 23:59 02/22/17 01:19 Ondansetron HCl (Zofran) 4 mg Q6H PRN IVP Nausea & Vomiting 02/15/17 22:45 03/17/17 22:44 02/22/17 06:53 Polyethylene Glycol (Miralax) 17 gm DAILYPRN PRN ORAL Constipation 02/20/17 18:15 03/22/17 18:14 Polyethylene Glycol (Miralax) 17 gm DAILYPRN PRN ORAL Constipation 02/15/17 22:45 03/17/17 22:44 02/17/17 04:59 Pravastatin Sodium (Pravachol) 20 mg BEDTIME ORAL 02/16/17 21:00 03/18/17 20:59 02/21/17 21:26 Pregabalin (Lyrica) 150 mg THREE TIMES A DAY ORAL 02/16/17 13:00 03/18/17 12:59 02/23/17 09:04 Promethazine HCl/ Codeine (Phenergan with Codeine) 5 ml Q4H PRN ORAL For Cough 02/16/17 10:45 03/18/17 10:44 02/18/17 09:07 Vancomycin HCl (Vanco rx to dose) 1 ea DAILY PRN MISC PER RX PROTOCOL 02/16/17 07:45 03/18/17 07:44 Vancomycin/Sodium Chloride 250 ml @ 166.667 mls/hr Q24H IVPB 02/23/17 21:00 02/28/17 20:59 TWIN FONTANEZ Feb 23, 2017 11:26
[2017-02-23 12:00] LABS: ALANINE AMINOTRANSFERASE 15 U/L (12-78); ALBUMIN 2.4 G/DL (3.4-5.0); ALKALINE PHOSPHATASE 59 U/L (46-116); ASPARTATE AMINO TRANSFERASE 31 U/L (15-37); BILIRUBIN,DIRECT < 0.1 MG/DL (0.0-0.3); BILIRUBIN,TOTAL 0.4 MG/DL (0.2-1.0); PHOSPHORUS 4.4 MG/DL (2.5-4.9)
--- NOTE | 2017-02-23 12:28 | Wound Nurse Progress Note ---
Wound RN Progress Note Wound Consult attempted to reassess skin, patient refused stating " NO" ,explained purpose of skin reassessment and risk ,patient still refused . stating " no ". OLIVERIO COATES Feb 23, 2017 12:28
[2017-02-23 13:18] LABS: APPEARANCE,URINE CLEAR; BILIRUBIN, URINE NEGATIVE (NEGATIVE); COLOR,URINE PALE YELLOW; GLUCOSE, URINE (UA) NEGATIVE (NEGATIVE); KETONES,URINE NEGATIVE (NEGATIVE); LEUKOCYTE ESTERASE ,URINE NEGATIVE (NEGATIVE); NITRITE,URINE NEGATIVE (NEGATIVE); PH,URINE 5 (4.5-8.0); PROTEIN,URINE NEGATIVE (NEGATIVE); UROBILINOGEN,URINE NORMAL MG/DL (0.0-1.0)
--- NOTE | 2017-02-23 14:36 | Infectious Diseases Prog Note ---
Assessment/Plan Assessment/Plan Abx: IV Vanco 02/15- Cefepime 02/15-02/18 Meropenem 02/18- Assesment: Acute hypoxic resp failure, - combination of COPD exacerbation and PNA; worsenened 02/18 -venous duplex 02/16no DVT PNA; worsening- r/o MDRO, r/o fungal pneumonia -CXR 02/23: Better inspiration currently. Overall improved aeration of the right mid and lower lung, with decreased dense consolidation and is still fairly extensive parenchymal opacity. The right pleural space is clear. Large left pleural effusion is again demonstrated, and is increased from the prior exam. There is also increasing consolidation of the residual aerated lung in the left upper hemithorax. -CXR 02/20:There is a air space and interstitial opacities especially within the right lung. Suspected element of interstitial edema. Superimposed pneumonia not excluded. CXR 02/18: Increasing consolidation in the right mid and lower lung, over one day. Possibly improving consolidation and/or pleural fluid on the left -CXR 02/17: There is somewhat decreased but persistent and still extensive consolidation in the right mid and lower lung. Consolidation, atelectasis, and pleural fluid at the left lung base persists and are probably unchanged, -CXR: Limited evaluation due to significant degree of soft tissue attenuation. Suspect pneumonia at the right lung base. -sp cx ordered not collected yet L pleural effusion - r/o empyema Leukocytosis, mild (on steroids)- worsened but stable at 13 Afebrile COPD on home O2 Hx of Cdiff DM2 Chronic abd pain hx of MRSA bacteremia 07/2015 fibromyalgia, HTN, HLD, R breast cancer,Tobacco abuse (stopped 4 years ago), Anxiety, AOCD Plan: -Obtain CT chest w/o to further evaluate (slow response, worsening L consolidation and pleural effusion) -Recommend L diagnostic and therapeutic thoracentesis -please send fluid for analysis and culture -Continue Meropenem #6 (abx d#01/22) given worsening resp status -obtain sp cx if possible -Continue IV Vancomycin #01/22 -s/p 6d prophylatic PO vanco 02/21 -f/u Cocci ab and Cr Ag serum -F/u cultures -Monitor CBC/BMP, temperatures -Aspiration precautions Thank you for this consultation. Will continue to follow along with you. Discussed with RN and Dr Hernandez Subjective Allergies: Coded Allergies: TETRACYCLINE (Unverified Allergy, Unknown, 07/24/14) Subjective afebrile, VSS remains on NRB 15L, FIo2 100% leukocytosis stable at 13-14 (on steroids) Objective Vital Signs Last 24 Hour Vital Signs Date Time Temp Pulse Resp B/P (MAP) Pulse Ox O2 Delivery O2 Flow Rate FiO2 02/23/17 12:00 97.2 101 20 100 Non-Rebreather 15.0 02/23/17 12:00 89 02/23/17 09:02 123/64 02/23/17 09:02 111 123/64 02/23/17 08:00 95 02/23/17 07:24 Non-Rebreather 100 02/23/17 07:23 93 Non-Rebreather 15.0 100 02/23/17 07:22 128 27 Non-Rebreather 100 02/23/17 04:00 89 02/23/17 04:00 97.9 89 20 139/78 100 Non-Rebreather 15.0 02/23/17 00:52 94 19 98 Facial 100 02/23/17 00:00 100 02/23/17 00:00 100 02/23/17 00:00 97.6 89 17 109/50 100 Bi-pap 02/22/17 23:04 91 17 95 Facial 100 02/22/17 21:00 91 95/55 02/22/17 20:48 91 15 98 Facial 100 02/22/17 20:00 96 02/22/17 20:00 97.7 99 14 95/55 100 Bi-pap 02/22/17 19:13 94 Bi-pap 100 02/22/17 19:13 Bi-pap 100 02/22/17 19:12 104 28 Bi-pap 100 02/22/17 19:11 104 28 94 Facial 100 02/22/17 18:11 122/74 02/22/17 17:28 100 27 90 Facial 100 02/22/17 17:08 100 02/22/17 16:00 103 02/22/17 16:00 97.5 106 16 110/79 88 Non-Rebreather 15.0 Height (Feet): 5 Height (Inches): 7.00 Weight (Pounds): 123 Objective General Appearance: awake and alert, answering questions, NRB mask HEENT: PERRL, no oral lesions, atraumatic head Neck: supple Respiratory: scattered wheezing Cardiovascular: regular rate, rhythmm, no murmurs Gastrointestinal: normal inspection, non tender, no mass, non-distended Musculoskeletal: back normal, normal range of motion Skin: no lesions or rashes reviewed Laboratory Tests Test 02/23/17 03:45 02/23/17 04:45 02/23/17 10:20 02/23/17 12:00 Uric Acid 12.7 MG/DL (2.6-7.2) H Phosphorus Level 4.4 MG/DL (2.5-4.9) Magnesium Level 1.9 MG/DL (1.8-2.4) Total Bilirubin 0.4 MG/DL (0.2-1.0) Direct Bilirubin < 0.1 MG/DL (0.0-0.3) Aspartate Amino Transf (AST/SGOT) 31 U/L (15-37) Alanine Aminotransferase (ALT/SGPT) 15 U/L (12-78) Alkaline Phosphatase 59 U/L (46-116) Total Protein 6.8 G/DL (6.4-8.2) Albumin 2.4 G/DL (3.4-5.0) L White Blood Count 14.4 K/UL (4.8-10.8) H Red Blood Count 3.20 M/UL (4.20-5.40) L Hemoglobin 10.9 G/DL (12.0-16.0) L Hematocrit 32.9 % (37.0-47.0) L Mean Corpuscular Volume 103 FL (80-99) H Mean Corpuscular Hemoglobin 34.1 PG (27.0-31.0) H Mean Corpuscular Hemoglobin Concent 33.1 G/DL (32.0-36.0) Red Cell Distribution Width 12.1 % (11.6-14.8) Platelet Count 263 K/UL (150-450) Mean Platelet Volume 7.1 FL (6.5-10.1) Neutrophils (%) (Auto) 76.6 % (45.0-75.0) H Lymphocytes (%) (Auto) 16.5 % (20.0-45.0) L Monocytes (%) (Auto) 5.7 % (1.0-10.0) Eosinophils (%) (Auto) 0.8 % (0.0-3.0) Basophils (%) (Auto) 0.4 % (0.0-2.0) Sodium Level 138 MMOL/L (136-145) Potassium Level 3.7 MMOL/L (3.5-5.1) Chloride Level 97 MMOL/L (98-107) L Carbon Dioxide Level 33 MMOL/L (21-32) H Anion Gap 8 (5-15) Blood Urea Nitrogen 64 mg/dL (7-18) H Creatinine 1.2 MG/DL (0.55-1.30) Estimat Glomerular Filtration Rate mL/min (>60) Glucose Level 77 MG/DL (74-106) Calcium Level 9.6 MG/DL (8.5-10.1) Pro-B-Type Natriuretic Peptide 703 (0-125) H Random Vancomycin Level 21.0 ug/mL Arterial Blood pH 7.395 (7.350-7.450) Arterial Blood Partial Pressure CO2 62.1 mmHg (35.0-45.0) *H Arterial Blood Partial Pressure O2 64.0 mmHg (75.0-100.0) L Arterial Blood HCO3 37.2 mmol/L (22.0-26.0) H Arterial Blood Oxygen Saturation 78.4 % (92.0-98.0) L Arterial Blood Base Excess 10.3 Scooby Test Positive Urine Color Pale yellow Urine Appearance Clear Urine pH 5 (4.5-8.0) Urine Specific [place] 1.010 (1.005-1.035) Urine Protein Negative (NEGATIVE) Urine Glucose (UA) Negative (NEGATIVE) Urine Ketones Negative (NEGATIVE) Urine Occult Blood Negative (NEGATIVE) Urine Nitrite Negative (NEGATIVE) Urine Bilirubin Negative (NEGATIVE) Urine Urobilinogen Normal MG/DL (0.0-1.0) Urine Leukocyte Esterase Negative (NEGATIVE) Urine RBC 0-2 /HPF (0 - 2) Urine WBC 0-2 /HPF (0 - 2) Urine Squamous Epithelial Cells Occasional /LPF Urine Bacteria Occasional /HPF (NONE) Urine Random Sodium 70 MEQ/L (20-110) Current Medications Medications (Trade) Dose Ordered Sig/Wilner Route PRN Reason Start Time Stop Time Status Last Admin Dose Admin Acetaminophen (Tylenol) 650 mg Q4H PRN ORAL FEVER 02/15/17 22:45 03/17/17 22:44 Albuterol/ Ipratropium (DuoNeb 0.5-3(2.5)mg/3ml) 3 ml Q4HRT PRN HHN sob 02/22/17 13:00 02/27/17 12:59 Aspirin (Ecotrin) 81 mg DAILY ORAL 02/17/17 09:00 03/19/17 08:59 02/23/17 09:03 Bisacodyl (Dulcolax) 10 mg DAILYPRN PRN RECTAL Constipation 02/22/17 12:00 03/24/17 11:59 02/23/17 06:33 Carvedilol (Coreg) 6.25 mg Q12HR ORAL 02/23/17 21:00 03/25/17 20:59 Clonidine HCl (Catapres) 0.1 mg Q4H PRN ORAL for bp above 160 syst 02/23/17 12:15 03/25/17 12:14 Dextrose (Dextrose 50%) STAT PRN IV Hypoglycemia 02/15/17 22:45 03/17/17 22:44 Escitalopram Oxalate (Lexapro) 10 mg DAILY ORAL 02/18/17 09:00 03/20/17 08:59 02/23/17 09:01 Heparin Sodium (Porcine) (Heparin 5000 units/ml) 5,000 units EVERY 12 HOURS SUBQ 02/16/17 09:00 03/18/17 08:59 02/18/17 09:10 Levalbuterol HCl (Xopenex) 1.25 mg EVERY 4 HOURS PRN HHN Bronchospasm 02/21/17 16:15 02/26/17 16:14 Lidocaine (Xylocaine 1% MPF 5ml) 10 ml Q4H PRN HHN cough 02/17/17 10:15 03/19/17 10:14 Lisinopril (Zestril) 5 mg BID ORAL 02/19/17 18:00 03/21/17 17:59 02/23/17 09:02 Lorazepam (Ativan 2mg/ml 1ml) 2 mg EVERY 2 HOURS PRN IV For Anxiety 02/21/17 21:30 02/28/17 23:59 02/22/17 18:56 Meropenem 1 gm/ Sodium Chloride 110 ml @ 220 mls/hr Q12HR IVPB 02/18/17 21:00 02/28/17 20:59 02/23/17 09:01 Methadone HCl (Methadone HCl) 5 mg EVERY 12 HOURS ORAL 02/16/17 21:00 02/23/17 20:59 02/23/17 09:03 Methylprednisolone Sodium Succinate (Solu-MEDROL) 20 mg DAILY IVP 02/21/17 09:00 03/23/17 08:59 02/23/17 09:01 Morphine Sulfate (Morphine Sulfate) 4 mg EVERY 4 HOURS PRN IVP Severe Pain (Pain Scale 7-10) 02/21/17 21:30 02/28/17 23:59 02/22/17 01:19 Ondansetron HCl (Zofran) 4 mg Q6H PRN IVP Nausea & Vomiting 02/15/17 22:45 03/17/17 22:44 02/22/17 06:53 Polyethylene Glycol (Miralax) 17 gm DAILYPRN PRN ORAL Constipation 02/20/17 18:15 03/22/17 18:14 Polyethylene Glycol (Miralax) 17 gm DAILYPRN PRN ORAL Constipation 02/15/17 22:45 03/17/17 22:44 02/17/17 04:59 Pravastatin Sodium (Pravachol) 20 mg BEDTIME ORAL 02/16/17 21:00 03/18/17 20:59 02/21/17 21:26 Pregabalin (Lyrica) 150 mg THREE TIMES A DAY ORAL 02/16/17 13:00 03/18/17 12:59 02/23/17 12:49 Promethazine HCl/ Codeine (Phenergan with Codeine) 5 ml Q4H PRN ORAL For Cough 02/16/17 10:45 03/18/17 10:44 02/18/17 09:07 Vancomycin HCl (Vanco rx to dose) 1 ea DAILY PRN MISC PER RX PROTOCOL 02/16/17 07:45 03/18/17 07:44 Vancomycin/Sodium Chloride 250 ml @ 166.667 mls/hr Q24H IVPB 02/23/17 21:00 02/28/17 20:59 Alyse Traylor M.D. Feb 23, 2017 14:36
[2017-02-23 16:00] VITALS: BP 96/58
--- NOTE | 2017-02-23 19:01 | Cardiology Progress Note ---
Assessment/Plan Assessment/Plan 1. Respiratory failure. 2. Chronic obstructive pulmonary disease exacerbation. 3. Questionable pneumonia. 4. History of mitral regurgitation of significant degree. 5. History of subdural hematomas and intracranial hemorrhage. 6. History of breast cancer. 7. Anemia. 8. History of Clostridium difficile colitis. 9. History of anxiety. 10. Sinus tachycardia secondary to above. 11. Htn 12. CHF acute diastolic continue pulm rxn acei were decreased to allow room for trial of diuretic may need to resum higer dose if bp incerased on lower diuretic dose off ivf tele reviewed labs reviewed cr increased cxr noted agree with u/s plan for possible throacentesis Subjective Cardiovascular: Denies: lightheadedness Respiratory: Reports: cough Gastrointestinal/Abdominal: Denies: abdominal pain Genitourinary: Denies: burning Subjective little better Objective Last 24 Hour Vital Signs Date Time Temp Pulse Resp B/P (MAP) Pulse Ox O2 Delivery O2 Flow Rate FiO2 02/23/17 18:18 130/74 02/23/17 16:00 104 02/23/17 16:00 97.4 104 19 96/58 100 Non-Rebreather 15.0 02/23/17 12:00 97.2 101 20 100 Non-Rebreather 15.0 02/23/17 12:00 89 02/23/17 09:02 123/64 02/23/17 09:02 111 123/64 02/23/17 08:00 95 02/23/17 07:24 Non-Rebreather 100 02/23/17 07:23 93 Non-Rebreather 15.0 100 02/23/17 07:22 128 27 Non-Rebreather 100 02/23/17 04:00 89 02/23/17 04:00 97.9 89 20 139/78 100 Non-Rebreather 15.0 02/23/17 00:52 94 19 98 Facial 100 02/23/17 00:00 100 02/23/17 00:00 100 02/23/17 00:00 97.6 89 17 109/50 100 Bi-pap 02/22/17 23:04 91 17 95 Facial 100 02/22/17 21:00 91 95/55 02/22/17 20:48 91 15 98 Facial 100 02/22/17 20:00 96 02/22/17 20:00 97.7 99 14 95/55 100 Bi-pap 02/22/17 19:13 94 Bi-pap 100 02/22/17 19:13 Bi-pap 100 02/22/17 19:12 104 28 Bi-pap 100 02/22/17 19:11 104 28 94 Facial 100 General Appearance: alert Neck: no JVD Cardiovascular: normal rate Respiratory/Chest: decreased breath sounds - left side Abdomen: normal bowel sounds, non tender, soft Extremities: no swelling Intake and Output 02/23/17 02/24/17 19:00 07:00 Intake Total 200 ml Output Total 300 ml Balance -100 ml Intake Oral 200 ml Output Urine Total 300 ml # Bowel Movements 1 Laboratory Tests Test 02/23/17 03:45 02/23/17 04:45 02/23/17 10:20 02/23/17 12:00 Uric Acid 12.7 MG/DL (2.6-7.2) H Phosphorus Level 4.4 MG/DL (2.5-4.9) Magnesium Level 1.9 MG/DL (1.8-2.4) Total Bilirubin 0.4 MG/DL (0.2-1.0) Direct Bilirubin < 0.1 MG/DL (0.0-0.3) Aspartate Amino Transf (AST/SGOT) 31 U/L (15-37) Alanine Aminotransferase (ALT/SGPT) 15 U/L (12-78) Alkaline Phosphatase 59 U/L (46-116) Total Protein 6.8 G/DL (6.4-8.2) Albumin 2.4 G/DL (3.4-5.0) L White Blood Count 14.4 K/UL (4.8-10.8) H Red Blood Count 3.20 M/UL (4.20-5.40) L Hemoglobin 10.9 G/DL (12.0-16.0) L Hematocrit 32.9 % (37.0-47.0) L Mean Corpuscular Volume 103 FL (80-99) H Mean Corpuscular Hemoglobin 34.1 PG (27.0-31.0) H Mean Corpuscular Hemoglobin Concent 33.1 G/DL (32.0-36.0) Red Cell Distribution Width 12.1 % (11.6-14.8) Platelet Count 263 K/UL (150-450) Mean Platelet Volume 7.1 FL (6.5-10.1) Neutrophils (%) (Auto) 76.6 % (45.0-75.0) H Lymphocytes (%) (Auto) 16.5 % (20.0-45.0) L Monocytes (%) (Auto) 5.7 % (1.0-10.0) Eosinophils (%) (Auto) 0.8 % (0.0-3.0) Basophils (%) (Auto) 0.4 % (0.0-2.0) Sodium Level 138 MMOL/L (136-145) Potassium Level 3.7 MMOL/L (3.5-5.1) Chloride Level 97 MMOL/L (98-107) L Carbon Dioxide Level 33 MMOL/L (21-32) H Anion Gap 8 (5-15) Blood Urea Nitrogen 64 mg/dL (7-18) H Creatinine 1.2 MG/DL (0.55-1.30) Estimat Glomerular Filtration Rate mL/min (>60) Glucose Level 77 MG/DL (74-106) Calcium Level 9.6 MG/DL (8.5-10.1) Pro-B-Type Natriuretic Peptide 703 (0-125) H Random Vancomycin Level 21.0 ug/mL Arterial Blood pH 7.395 (7.350-7.450) Arterial Blood Partial Pressure CO2 62.1 mmHg (35.0-45.0) *H Arterial Blood Partial Pressure O2 64.0 mmHg (75.0-100.0) L Arterial Blood HCO3 37.2 mmol/L (22.0-26.0) H Arterial Blood Oxygen Saturation 78.4 % (92.0-98.0) L Arterial Blood Base Excess 10.3 Scooby Test Positive Urine Color Pale yellow Urine Appearance Clear Urine pH 5 (4.5-8.0) Urine Specific [place] 1.010 (1.005-1.035) Urine Protein Negative (NEGATIVE) Urine Glucose (UA) Negative (NEGATIVE) Urine Ketones Negative (NEGATIVE) Urine Occult Blood Negative (NEGATIVE) Urine Nitrite Negative (NEGATIVE) Urine Bilirubin Negative (NEGATIVE) Urine Urobilinogen Normal MG/DL (0.0-1.0) Urine Leukocyte Esterase Negative (NEGATIVE) Urine RBC 0-2 /HPF (0 - 2) Urine WBC 0-2 /HPF (0 - 2) Urine Squamous Epithelial Cells Occasional /LPF Urine Bacteria Occasional /HPF (NONE) Urine Random Sodium 70 MEQ/L (20-110) JEFFERSON ROMEO Feb 23, 2017 19:01
[2017-02-23 20:00] VITALS: BP 131/69
[2017-02-23] MEDS: Carvedilol 6.25mg Tab ORAL SCH (20:20)
--- NOTE | 2017-02-23 21:31 | General Progress Note ---
Assessment/Plan Status: stable, progressing Assessment/Plan anxiety d/o' -cont current meds -provided ro/st Subjective Date patient seen: Feb 23, 2017 Constitutional: Reports: malaise, weakness Neurologic/Psychiatric: Reports: anxiety, depressed, emotional problems Allergies: Coded Allergies: TETRACYCLINE (Unverified Allergy, Unknown, 07/24/14) Subjective anxious today med seeking Objective Last 24 Hour Vital Signs Date Time Temp Pulse Resp B/P (MAP) Pulse Ox O2 Delivery O2 Flow Rate FiO2 02/23/17 20:20 99 131/69 02/23/17 20:00 99 25 Non-Rebreather 100 02/23/17 20:00 95 Non-Rebreather 15.0 100 02/23/17 20:00 97.7 78 20 131/69 97 Non-Rebreather 15.0 100 02/23/17 20:00 Non-Rebreather 100 02/23/17 18:18 130/74 02/23/17 16:00 104 02/23/17 16:00 97.4 104 19 96/58 100 Non-Rebreather 15.0 02/23/17 12:00 97.2 101 20 100 Non-Rebreather 15.0 02/23/17 12:00 89 02/23/17 09:02 123/64 02/23/17 09:02 111 123/64 02/23/17 08:00 95 02/23/17 07:24 Non-Rebreather 100 02/23/17 07:23 93 Non-Rebreather 15.0 100 02/23/17 07:22 128 27 Non-Rebreather 100 02/23/17 04:00 89 02/23/17 04:00 97.9 89 20 139/78 100 Non-Rebreather 15.0 02/23/17 00:52 94 19 98 Facial 100 02/23/17 00:00 100 02/23/17 00:00 100 02/23/17 00:00 97.6 89 17 109/50 100 Bi-pap 02/22/17 23:04 91 17 95 Facial 100 Intake and Output 02/23/17 02/24/17 19:00 07:00 Intake Total 360 ml Output Total 2200 ml Balance -1840 ml Intake Oral 250 ml IV Total 110 ml Output Urine Total 2200 ml # Bowel Movements 2 Laboratory Tests 02/23/17 03:45: Uric Acid 12.7H, Phosphorus Level 4.4, Magnesium Level 1.9, Total Bilirubin 0.4 , Direct Bilirubin < 0.1, Aspartate Amino Transf (AST/SGOT) 31, Alanine Aminotransferase (ALT/SGPT) 15, Alkaline Phosphatase 59, Total Protein 6.8, Albumin 2.4L 02/23/17 04:45: White Blood Count 14.4H, Red Blood Count 3.20L, Hemoglobin 10.9L, Hematocrit 32.9L, Mean Corpuscular Volume 103H, Mean Corpuscular Hemoglobin 34.1H, Mean Corpuscular Hemoglobin Concent 33.1, Red Cell Distribution Width 12.1, Platelet Count 263, Mean Platelet Volume 7.1, Neutrophils (%) (Auto) 76.6H, Lymphocytes ( %) (Auto) 16.5L, Monocytes (%) (Auto) 5.7, Eosinophils (%) (Auto) 0.8, Basophils (%) (Auto) 0.4, Sodium Level 138, Potassium Level 3.7, Chloride Level 97L, Carbon Dioxide Level 33H, Anion Gap 8, Blood Urea Nitrogen 64H, Creatinine 1.2, Estimat Glomerular Filtration Rate , Glucose Level 77, Calcium Level 9.6, Pro-B-Type Natriuretic Peptide 703H, Random Vancomycin Level 21.0 02/23/17 10:20: Arterial Blood pH 7.395, Arterial Blood Partial Pressure CO2 62.1*H, Arterial Blood Partial Pressure O2 64.0L, Arterial Blood HCO3 37.2H, Arterial Blood Oxygen Saturation 78.4L, Arterial Blood Base Excess 10.3, Scooby Test Positive 02/23/17 12:00: Urine Color Pale yellow, Urine Appearance Clear, Urine pH 5, Urine Specific [place] 1.010, Urine Protein Negative, Urine Glucose (UA) Negative, Urine Ketones Negative, Urine Occult Blood Negative, Urine Nitrite Negative, Urine Bilirubin Negative, Urine Urobilinogen Normal, Urine Leukocyte Esterase Negative , Urine RBC 0-2, Urine WBC 0-2, Urine Squamous Epithelial Cells Occasional, Urine Bacteria Occasional, Urine Random Sodium 70 Height (Feet): 5 Height (Inches): 7.00 Weight (Pounds): 123 General Appearance: no apparent distress, alert, obese Neurologic: alert, oriented x 3, responsive, depressed affect Wan Stern M.D. Feb 23, 2017 21:31
[2017-02-23] MEDS: Vancomycin 750mg/NS 250ml IVPB SCH (21:58)
[2017-02-23] MEDS: Morphine Sulfate 4mg/ml Inj IVP PRN (21:59)
[2017-02-24] VITALS: BP 133/59
[2017-02-24] MEDS: LORazepam Inj 2mg/ml 1ml IV PRN ×3 (02:37→22:53)
[2017-02-24 04:00] VITALS: BP 92/42
[2017-02-24 05:58] LABS: BASOPHILS % (AUTO) 0.3 % (0.0-2.0); EOSINOPHILS % (AUTO) 1.3 % (0.0-3.0); HEMOGLOBIN 9.6 G/DL (12.0-16.0); LYMPHOCYTES % (AUTO) 18.6 % (20.0-45.0); MEAN CORPUSCULAR VOLUME 103 FL (80-99); MONOCYTES % (AUTO) 6.2 % (1.0-10.0); NEUTROPHILS % (AUTO) 73.6 % (45.0-75.0); PLATELET COUNT 260 K/UL (150-450); RED BLOOD COUNT 2.83 M/UL (4.20-5.40); WHITE BLOOD COUNT 10.9 K/UL (4.8-10.8)
[2017-02-24 06:28] LABS: ALANINE AMINOTRANSFERASE 12 U/L (12-78); ALBUMIN 2.2 G/DL (3.4-5.0); ALBUMIN/GLOBULIN RATIO 0.6 (1.0-2.7); ALKALINE PHOSPHATASE 50 U/L (46-116); ANION GAP 3 mmol/L (5-15); ASPARTATE AMINO TRANSFERASE 19 U/L (15-37); BILIRUBIN,TOTAL 0.5 MG/DL (0.2-1.0); BLOOD UREA NITROGEN 51 mg/dL (7-18); CALCIUM 9.4 MG/DL (8.5-10.1); CARBON DIOXIDE 38 MMOL/L (21-32); CHLORIDE 100 MMOL/L (98-107); CREATININE 0.9 MG/DL (0.55-1.30); POTASSIUM 3.3 MMOL/L (3.5-5.1); SODIUM 141 MMOL/L (136-145)
[2017-02-24 08:00] VITALS: BP 141/70
[2017-02-24] MEDS: Solu-MEDROL 40mg Inj IVP SCH (09:31)
[2017-02-24] MEDS: Lyrica 75mg cap ORAL SCH ×3 (09:32→18:51)
[2017-02-24] MEDS: Lisinopril 2.5mg tab ORAL SCH (09:32)
[2017-02-24] MEDS: Aspirin EC 81mg tab ORAL SCH (09:33)
[2017-02-24] MEDS: Carvedilol 6.25mg Tab ORAL SCH ×2 (09:33→20:20)
[2017-02-24] MEDS: Heparin 5000 units/ml inj SUBQ SCH ×2 (09:35→20:24)
--- NOTE | 2017-02-24 10:02 | Wound Nurse Progress Note ---
Wound RN Progress Note Wound Consult #1 Sacrococcygeal stage I pressure ulcer that extended to left and right buttocks- no further deterioration , skin remains intact, noted redness still present. #2 Perineal area chemical burn- noted good progress, resolving, skin intact #3 Wart on supra pubic area - no change Recommendation -Sacrococcygeal stage I pressure ulcer that extended to left and right buttocks and Perineal area chemical burn Cleanse with saline, pat dry, apply Triad cream, leave area open to air BID and PRN soiled/dislodged -Keep clean and dry -Turn and reposition -Offload both heels -Heel protector on both heels -Low air loss SPR mattress -Optimize nutrition -Assess and f/u accordingly for any changes upon skin reassessment noted good progress to skin, remains intact, current treatment is effective. OLIVERIO COATES Feb 24, 2017 10:02
--- NOTE | 2017-02-24 10:06 | Pulmonology Progress Note ---
Assessment/Plan Problems: (1) Acute and chronic respiratory failure ([id number]) (2) COPD exacerbation (3) Pneumonia (4) Fibromyalgia (5) History of breast cancer (6) Limited mobility Assessment/Plan US of chest done, if enough fluid for thoracentesis is available CXR today no change chest PT keep in [place] check sputum, no sputum yet bun creatinine improving taper down fio2 Subjective ROS Limited/Unobtainable: No Interval Events: feels slightly better, still on 100% NRM Constitutional: Reports: no symptoms HEENT: Repors: no symptoms Respiratory: Reports: no symptoms Allergies: Coded Allergies: TETRACYCLINE (Unverified Allergy, Unknown, 07/24/14) Objective Last 24 Hour Vital Signs Date Time Temp Pulse Resp B/P (MAP) Pulse Ox O2 Delivery O2 Flow Rate FiO2 02/24/17 09:33 97 141/70 02/24/17 09:32 141/70 02/24/17 08:00 97.3 97 20 141/70 93 Non-Rebreather 100 02/24/17 07:03 Non-Rebreather 100 02/24/17 07:03 94 Non-Rebreather 15.0 100 02/24/17 07:03 82 22 Non-Rebreather 100 02/24/17 04:00 97.0 82 16 92/42 96 Non-Rebreather 15.0 100 02/24/17 04:00 82 02/24/17 00:00 81 02/24/17 00:00 97.7 85 16 133/59 97 Non-Rebreather 15.0 100 02/23/17 20:20 99 131/69 02/23/17 20:00 104 02/23/17 20:00 99 25 Non-Rebreather 100 02/23/17 20:00 95 Non-Rebreather 15.0 100 02/23/17 20:00 97.7 78 20 131/69 97 Non-Rebreather 15.0 100 02/23/17 20:00 Non-Rebreather 100 02/23/17 18:18 130/74 02/23/17 16:00 104 02/23/17 16:00 97.4 104 19 96/58 100 Non-Rebreather 15.0 02/23/17 12:00 97.2 101 20 100 Non-Rebreather 15.0 02/23/17 12:00 89 Intake and Output 02/24/17 02/25/17 19:00 07:00 Intake Total 120 ml Balance 120 ml Intake Oral 120 ml Objective Us of chest done, awaiting results HEENT: normocephalic, atraumatic Respiratory/Chest: chest wall non-tender, crackles/rales Cardiovascular: normal peripheral pulses, normal rate, regular rhythm Abdomen: normal bowel sounds, soft, non tender Genitourinary: normal external genitalia Extremities: no cyanosis Skin: no rash Neurologic/Psychiatric: 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, no motor/sensory deficits Lymphatic: no neck adenopathy Musculoskeletal: normal muscle bulk Microbiology Date/Time Source Procedure Growth Status 02/24/17 01:30 Sputum Induced Gram Stain - Final Resulted 02/24/17 01:30 Sputum Induced Sputum Culture Pending Resulted Laboratory Tests 02/23/17 10:20: Arterial Blood pH 7.395, Arterial Blood Partial Pressure CO2 62.1*H, Arterial Blood Partial Pressure O2 64.0L, Arterial Blood HCO3 37.2H, Arterial Blood Oxygen Saturation 78.4L, Arterial Blood Base Excess 10.3, Scooby Test Positive 02/23/17 12:00: Urine Color Pale yellow, Urine Appearance Clear, Urine pH 5, Urine Specific [place] 1.010, Urine Protein Negative, Urine Glucose (UA) Negative, Urine Ketones Negative, Urine Occult Blood Negative, Urine Nitrite Negative, Urine Bilirubin Negative, Urine Urobilinogen Normal, Urine Leukocyte Esterase Negative , Urine RBC 0-2, Urine WBC 0-2, Urine Squamous Epithelial Cells Occasional, Urine Bacteria Occasional, Urine Random Sodium 70 02/24/17 04:40: White Blood Count 10.9H, Red Blood Count 2.83L, Hemoglobin 9.6L, Hematocrit 29.0L, Mean Corpuscular Volume 103H, Mean Corpuscular Hemoglobin 34.0H, Mean Corpuscular Hemoglobin Concent 33.2, Red Cell Distribution Width 12.0, Platelet Count 260, Mean Platelet Volume 7.7, Neutrophils (%) (Auto) 73.6, Lymphocytes (% ) (Auto) 18.6L, Monocytes (%) (Auto) 6.2, Eosinophils (%) (Auto) 1.3, Basophils (%) (Auto) 0.3, Sodium Level 141, Potassium Level 3.3L, Chloride Level 100, Carbon Dioxide Level 38H, Anion Gap 3L, Blood Urea Nitrogen 51H, Creatinine 0.9 , Estimat Glomerular Filtration Rate , Glucose Level 92, Calcium Level 9.4, Total Bilirubin 0.5, Aspartate Amino Transf (AST/SGOT) 19, Alanine Aminotransferase (ALT/SGPT) 12, Alkaline Phosphatase 50, Pro-B-Type Natriuretic Peptide 637H, Total Protein 6.1L, Albumin 2.2L, Globulin 3.9, Albumin/Globulin Ratio 0.6L 02/24/17 05:00: Urine Eosinophils Few Current Medications Medications (Trade) Dose Ordered Sig/Wilner Route PRN Reason Start Time Stop Time Status Last Admin Dose Admin Acetaminophen (Tylenol) 650 mg Q4H PRN ORAL FEVER 02/15/17 22:45 03/17/17 22:44 Albuterol/ Ipratropium (DuoNeb 0.5-3(2.5)mg/3ml) 3 ml Q4HRT PRN HHN sob 02/22/17 13:00 02/27/17 12:59 Aspirin (Ecotrin) 81 mg DAILY ORAL 02/17/17 09:00 03/19/17 08:59 02/24/17 09:33 Bisacodyl (Dulcolax) 10 mg DAILYPRN PRN RECTAL Constipation 02/22/17 12:00 03/24/17 11:59 02/23/17 06:33 Carvedilol (Coreg) 6.25 mg Q12HR ORAL 02/23/17 21:00 03/25/17 20:59 02/24/17 09:33 Clonidine HCl (Catapres) 0.1 mg Q4H PRN ORAL for bp above 160 syst 02/23/17 12:15 03/25/17 12:14 Dextrose (Dextrose 50%) STAT PRN IV Hypoglycemia 02/15/17 22:45 03/17/17 22:44 Escitalopram Oxalate (Lexapro) 10 mg DAILY ORAL 02/18/17 09:00 03/20/17 08:59 02/24/17 09:33 Heparin Sodium (Porcine) (Heparin 5000 units/ml) 5,000 units EVERY 12 HOURS SUBQ 02/16/17 09:00 03/18/17 08:59 02/24/17 09:35 Levalbuterol HCl (Xopenex) 1.25 mg EVERY 4 HOURS PRN HHN Bronchospasm 02/21/17 16:15 02/26/17 16:14 Lidocaine (Xylocaine 1% MPF 5ml) 10 ml Q4H PRN HHN cough 02/17/17 10:15 03/19/17 10:14 Lisinopril (Zestril) 5 mg BID ORAL 02/19/17 18:00 03/21/17 17:59 02/24/17 09:32 Lorazepam (Ativan 2mg/ml 1ml) 2 mg EVERY 2 HOURS PRN IV For Anxiety 02/21/17 21:30 02/28/17 23:59 02/24/17 02:37 Meropenem 1 gm/ Sodium Chloride 110 ml @ 220 mls/hr Q12HR IVPB 02/18/17 21:00 02/28/17 20:59 02/23/17 20:21 Methylprednisolone Sodium Succinate (Solu-MEDROL) 20 mg DAILY IVP 02/21/17 09:00 03/23/17 08:59 02/24/17 09:31 Morphine Sulfate (Morphine Sulfate) 4 mg EVERY 4 HOURS PRN IVP Severe Pain (Pain Scale 7-10) 02/21/17 21:30 02/28/17 21:30 02/23/17 21:59 Ondansetron HCl (Zofran) 4 mg Q6H PRN IVP Nausea & Vomiting 02/15/17 22:45 03/17/17 22:44 02/22/17 06:53 Polyethylene Glycol (Miralax) 17 gm DAILYPRN PRN ORAL Constipation 02/20/17 18:15 03/22/17 18:14 Polyethylene Glycol (Miralax) 17 gm DAILYPRN PRN ORAL Constipation 02/15/17 22:45 03/17/17 22:44 02/17/17 04:59 Pravastatin Sodium (Pravachol) 20 mg BEDTIME ORAL 02/16/17 21:00 03/18/17 20:59 02/23/17 20:20 Pregabalin (Lyrica) 150 mg THREE TIMES A DAY ORAL 02/16/17 13:00 03/18/17 12:59 02/24/17 09:32 Promethazine HCl/ Codeine (Phenergan with Codeine) 5 ml Q4H PRN ORAL For Cough 02/16/17 10:45 03/18/17 10:44 02/18/17 09:07 Vancomycin HCl (Vanco rx to dose) 1 ea DAILY PRN MISC PER RX PROTOCOL 02/16/17 07:45 03/18/17 07:44 Vancomycin/Sodium Chloride 250 ml @ 166.667 mls/hr Q24H IVPB 02/23/17 21:00 02/28/17 20:59 02/23/17 21:58 TWIN FONTANEZ Feb 24, 2017 10:06
--- NOTE | 2017-02-24 10:20 | Infectious Diseases Prog Note ---
Assessment/Plan Assessment/Plan Assessment: Acute on chronic hypoxic resp failure, - combination of COPD exacerbation and PNA -venous duplex 02/16no DVT PNA; worsening- r/o MDRO, r/o fungal pneumonia. SGS(-), Cx pending -CXR 02/23: Better inspiration currently. Overall improved aeration of the right mid and lower lung, with decreased dense consolidation and is still fairly extensive parenchymal opacity. The right pleural space is clear. Large left pleural effusion is again demonstrated, and is increased from the prior exam. There is also increasing consolidation of the residual aerated lung in the left upper hemithorax. -negative: CrAg L pleural effusion - r/o empyema Leukocytosis, mild - improved, afebrile (on steroids) COPD on home O2 Hx of Cdiff DM2 Chronic abd pain hx of MRSA bacteremia 07/2015 fibromyalgia, HTN, HLD, R breast cancer,Tobacco abuse (stopped 4 years ago), Anxiety, AOCD TCA allergy Full Code Plan: -Obtain CT chest w/o to further evaluate (slow response, worsening L consolidation and pleural effusion): P -Recommend L diagnostic and therapeutic thoracentesis -please send fluid for analysis and culture -Continue Meropenem #7 (abx d#02/21) -Continue IV Vancomycin #02/21 -s/p 6d prophylatic PO vanco 02/21 -f/u Cocci ab -F/u cultures -Monitor CBC/BMP, temperatures -Aspiration precautions Subjective Allergies: Coded Allergies: TETRACYCLINE (Unverified Allergy, Unknown, 07/24/14) Subjective remains afebrile appears comfortable CT pending Objective Vital Signs Last 24 Hour Vital Signs Date Time Temp Pulse Resp B/P (MAP) Pulse Ox O2 Delivery O2 Flow Rate FiO2 02/24/17 09:33 97 141/70 02/24/17 09:32 141/70 02/24/17 08:00 97.3 97 20 141/70 93 Non-Rebreather 100 02/24/17 07:03 Non-Rebreather 100 02/24/17 07:03 94 Non-Rebreather 15.0 100 02/24/17 07:03 82 22 Non-Rebreather 100 02/24/17 04:00 97.0 82 16 92/42 96 Non-Rebreather 15.0 100 02/24/17 04:00 82 02/24/17 00:00 81 10/17/17 00:00 97.7 85 16 133/59 97 Non-Rebreather 15.0 100 02/23/17 20:20 99 131/69 02/23/17 20:00 104 02/23/17 20:00 99 25 Non-Rebreather 100 02/23/17 20:00 95 Non-Rebreather 15.0 100 02/23/17 20:00 97.7 78 20 131/69 97 Non-Rebreather 15.0 100 02/23/17 20:00 Non-Rebreather 100 02/23/17 18:18 130/74 02/23/17 16:00 104 02/23/17 16:00 97.4 104 19 96/58 100 Non-Rebreather 15.0 02/23/17 12:00 97.2 101 20 100 Non-Rebreather 15.0 02/23/17 12:00 89 Height (Feet): 5 Height (Inches): 7.00 Weight (Pounds): 117 General Appearance: no acute distress Respiratory/Chest: no respiratory distress Cardiovascular: normal rate, regular rhythm Abdomen: normal bowel sounds, soft, non tender, non distended Microbiology Date/Time Source Procedure Growth Status 02/24/17 01:30 Sputum Induced Gram Stain - Final Resulted 02/24/17 01:30 Sputum Induced Sputum Culture Pending Resulted Laboratory Tests Test 02/23/17 10:20 02/23/17 12:00 02/24/17 04:40 02/24/17 05:00 Arterial Blood pH 7.395 (7.350-7.450) Arterial Blood Partial Pressure CO2 62.1 mmHg (35.0-45.0) *H Arterial Blood Partial Pressure O2 64.0 mmHg (75.0-100.0) L Arterial Blood HCO3 37.2 mmol/L (22.0-26.0) H Arterial Blood Oxygen Saturation 78.4 % (92.0-98.0) L Arterial Blood Base Excess 10.3 Scooby Test Positive Urine Color Pale yellow Urine Appearance Clear Urine pH 5 (4.5-8.0) Urine Specific [place] 1.010 (1.005-1.035) Urine Protein Negative (NEGATIVE) Urine Glucose (UA) Negative (NEGATIVE) Urine Ketones Negative (NEGATIVE) Urine Occult Blood Negative (NEGATIVE) Urine Nitrite Negative (NEGATIVE) Urine Bilirubin Negative (NEGATIVE) Urine Urobilinogen Normal MG/DL (0.0-1.0) Urine Leukocyte Esterase Negative (NEGATIVE) Urine RBC 0-2 /HPF (0 - 2) Urine WBC 0-2 /HPF (0 - 2) Urine Squamous Epithelial Cells Occasional /LPF Urine Bacteria Occasional /HPF (NONE) Urine Random Sodium 70 MEQ/L (20-110) White Blood Count 10.9 K/UL (4.8-10.8) H Red Blood Count 2.83 M/UL (4.20-5.40) L Hemoglobin 9.6 G/DL (12.0-16.0) L Hematocrit 29.0 % (37.0-47.0) L Mean Corpuscular Volume 103 FL (80-99) H Mean Corpuscular Hemoglobin 34.0 PG (27.0-31.0) H Mean Corpuscular Hemoglobin Concent 33.2 G/DL (32.0-36.0) Red Cell Distribution Width 12.0 % (11.6-14.8) Platelet Count 260 K/UL (150-450) Mean Platelet Volume 7.7 FL (6.5-10.1) Neutrophils (%) (Auto) 73.6 % (45.0-75.0) Lymphocytes (%) (Auto) 18.6 % (20.0-45.0) L Monocytes (%) (Auto) 6.2 % (1.0-10.0) Eosinophils (%) (Auto) 1.3 % (0.0-3.0) Basophils (%) (Auto) 0.3 % (0.0-2.0) Sodium Level 141 MMOL/L (136-145) Potassium Level 3.3 MMOL/L (3.5-5.1) L Chloride Level 100 MMOL/L (98-107) Carbon Dioxide Level 38 MMOL/L (21-32) H Anion Gap 3 mmol/L (5-15) L Blood Urea Nitrogen 51 mg/dL (7-18) H Creatinine 0.9 MG/DL (0.55-1.30) Estimat Glomerular Filtration Rate mL/min (>60) Glucose Level 92 MG/DL (74-106) Calcium Level 9.4 MG/DL (8.5-10.1) Total Bilirubin 0.5 MG/DL (0.2-1.0) Aspartate Amino Transf (AST/SGOT) 19 U/L (15-37) Alanine Aminotransferase (ALT/SGPT) 12 U/L (12-78) Alkaline Phosphatase 50 U/L (46-116) Pro-B-Type Natriuretic Peptide 637 pg/mL (0-125) H Total Protein 6.1 G/DL (6.4-8.2) L Albumin 2.2 G/DL (3.4-5.0) L Globulin 3.9 g/dL Albumin/Globulin Ratio 0.6 (1.0-2.7) L Urine Eosinophils Few Current Medications Medications (Trade) Dose Ordered Sig/Wilner Route PRN Reason Start Time Stop Time Status Last Admin Dose Admin Acetaminophen (Tylenol) 650 mg Q4H PRN ORAL FEVER 02/15/17 22:45 03/17/17 22:44 Albuterol/ Ipratropium (DuoNeb 0.5-3(2.5)mg/3ml) 3 ml Q4HRT PRN HHN sob 02/22/17 13:00 02/27/17 12:59 Aspirin (Ecotrin) 81 mg DAILY ORAL 02/17/17 09:00 03/19/17 08:59 02/24/17 09:33 Bisacodyl (Dulcolax) 10 mg DAILYPRN PRN RECTAL Constipation 02/22/17 12:00 03/24/17 11:59 02/23/17 06:33 Carvedilol (Coreg) 6.25 mg Q12HR ORAL 02/23/17 21:00 03/25/17 20:59 02/24/17 09:33 Clonidine HCl (Catapres) 0.1 mg Q4H PRN ORAL for bp above 160 syst 02/23/17 12:15 03/25/17 12:14 Dextrose (Dextrose 50%) STAT PRN IV Hypoglycemia 02/15/17 22:45 03/17/17 22:44 Escitalopram Oxalate (Lexapro) 10 mg DAILY ORAL 02/18/17 09:00 03/20/17 08:59 02/24/17 09:33 Heparin Sodium (Porcine) (Heparin 5000 units/ml) 5,000 units EVERY 12 HOURS SUBQ 02/16/17 09:00 03/18/17 08:59 02/24/17 09:35 Levalbuterol HCl (Xopenex) 1.25 mg EVERY 4 HOURS PRN HHN Bronchospasm 02/21/17 16:15 02/26/17 16:14 Lidocaine (Xylocaine 1% MPF 5ml) 10 ml Q4H PRN HHN cough 02/17/17 10:15 03/19/17 10:14 Lisinopril (Zestril) 5 mg BID ORAL 02/19/17 18:00 03/21/17 17:59 02/24/17 09:32 Lorazepam (Ativan 2mg/ml 1ml) 2 mg EVERY 2 HOURS PRN IV For Anxiety 02/21/17 21:30 02/28/17 23:59 02/24/17 02:37 Meropenem 1 gm/ Sodium Chloride 110 ml @ 220 mls/hr Q12HR IVPB 02/18/17 21:00 02/28/17 20:59 02/23/17 20:21 Methylprednisolone Sodium Succinate (Solu-MEDROL) 20 mg DAILY IVP 02/21/17 09:00 03/23/17 08:59 02/24/17 09:31 Morphine Sulfate (Morphine Sulfate) 4 mg EVERY 4 HOURS PRN IVP Severe Pain (Pain Scale 7-10) 02/21/17 21:30 02/28/17 21:30 02/23/17 21:59 Ondansetron HCl (Zofran) 4 mg Q6H PRN IVP Nausea & Vomiting 02/15/17 22:45 03/17/17 22:44 02/22/17 06:53 Polyethylene Glycol (Miralax) 17 gm DAILYPRN PRN ORAL Constipation 02/20/17 18:15 03/22/17 18:14 Polyethylene Glycol (Miralax) 17 gm DAILYPRN PRN ORAL Constipation 02/15/17 22:45 03/17/17 22:44 02/17/17 04:59 Pravastatin Sodium (Pravachol) 20 mg BEDTIME ORAL 02/16/17 21:00 03/18/17 20:59 02/23/17 20:20 Pregabalin (Lyrica) 150 mg THREE TIMES A DAY ORAL 02/16/17 13:00 03/18/17 12:59 02/24/17 09:32 Promethazine HCl/ Codeine (Phenergan with Codeine) 5 ml Q4H PRN ORAL For Cough 02/16/17 10:45 03/18/17 10:44 02/18/17 09:07 Vancomycin HCl (Vanco rx to dose) 1 ea DAILY PRN MISC PER RX PROTOCOL 02/16/17 07:45 03/18/17 07:44 Vancomycin/Sodium Chloride 250 ml @ 166.667 mls/hr Q24H IVPB 02/23/17 21:00 02/28/17 20:59 02/23/17 21:58 MENDOZA PANTOJA Feb 24, 2017 10:20
[2017-02-24] MEDS: Meropenem 1 GM in NS 110 ML IVPB SCH ×2 (10:49→20:26)
[2017-02-24] MEDS ORDERED: KCl 10% 40mEq/30ml liquid ORAL ONE (11:00)
--- NOTE | 2017-02-24 11:10 | General Progress Note ---
Assessment/Plan Status: stable - from renal stand Status Narrative Cr 0.9 Assessment/Plan Status: Acute renal failure- etiology? 1900 cc urine out after insertion of shi Acute on Chronic respiratory failure- HTN High Cholestrol Pneumonia COPD , exac. Diastolic CHF, Mod MR h/o C dif colitis h/o Breast Ca Anemia Pulm HTN Moderate Plan: K supplement- Add allopurinol Urine studies- increase Joe inhibitors continue Shi- Avoid nephrotoxics taper steroids as possible JOSE MIGUEL: Moderate right hydronephrosis. Subjective ROS Limited/Unobtainable: No Constitutional: Reports: malaise, weakness Allergies: Coded Allergies: TETRACYCLINE (Unverified Allergy, Unknown, 07/24/14) Objective Last 24 Hour Vital Signs Date Time Temp Pulse Resp B/P (MAP) Pulse Ox O2 Delivery O2 Flow Rate FiO2 02/24/17 10:31 97.3 02/24/17 09:33 97 141/70 02/24/17 09:32 141/70 02/24/17 08:00 97.3 97 20 141/70 93 Non-Rebreather 100 02/24/17 07:03 Non-Rebreather 100 02/24/17 07:03 94 Non-Rebreather 15.0 100 02/24/17 07:03 82 22 Non-Rebreather 100 02/24/17 04:00 97.0 82 16 92/42 96 Non-Rebreather 15.0 100 02/24/17 04:00 82 02/24/17 00:00 81 02/24/17 00:00 97.7 85 16 133/59 97 Non-Rebreather 15.0 100 02/23/17 20:20 99 131/69 02/23/17 20:00 104 02/23/17 20:00 99 25 Non-Rebreather 100 02/23/17 20:00 95 Non-Rebreather 15.0 100 02/23/17 20:00 97.7 78 20 131/69 97 Non-Rebreather 15.0 100 02/23/17 20:00 Non-Rebreather 100 02/23/17 18:18 130/74 02/23/17 16:00 104 02/23/17 16:00 97.4 104 19 96/58 100 Non-Rebreather 15.0 02/23/17 12:00 97.2 101 20 100 Non-Rebreather 15.0 02/23/17 12:00 89 Intake and Output 02/24/17 02/25/17 19:00 07:00 Intake Total 120 ml Balance 120 ml Intake Oral 120 ml Laboratory Tests 02/23/17 12:00: Urine Color Pale yellow, Urine Appearance Clear, Urine pH 5, Urine Specific [place] 1.010, Urine Protein Negative, Urine Glucose (UA) Negative, Urine Ketones Negative, Urine Occult Blood Negative, Urine Nitrite Negative, Urine Bilirubin Negative, Urine Urobilinogen Normal, Urine Leukocyte Esterase Negative , Urine RBC 0-2, Urine WBC 0-2, Urine Squamous Epithelial Cells Occasional, Urine Bacteria Occasional, Urine Random Sodium 70 02/24/17 04:40: White Blood Count 10.9H, Red Blood Count 2.83L, Hemoglobin 9.6L, Hematocrit 29.0L, Mean Corpuscular Volume 103H, Mean Corpuscular Hemoglobin 34.0H, Mean Corpuscular Hemoglobin Concent 33.2, Red Cell Distribution Width 12.0, Platelet Count 260, Mean Platelet Volume 7.7, Neutrophils (%) (Auto) 73.6, Lymphocytes (% ) (Auto) 18.6L, Monocytes (%) (Auto) 6.2, Eosinophils (%) (Auto) 1.3, Basophils (%) (Auto) 0.3, Sodium Level 141, Potassium Level 3.3L, Chloride Level 100, Carbon Dioxide Level 38H, Anion Gap 3L, Blood Urea Nitrogen 51H, Creatinine 0.9 , Estimat Glomerular Filtration Rate , Glucose Level 92, Calcium Level 9.4, Total Bilirubin 0.5, Aspartate Amino Transf (AST/SGOT) 19, Alanine Aminotransferase (ALT/SGPT) 12, Alkaline Phosphatase 50, Pro-B-Type Natriuretic Peptide 637H, Total Protein 6.1L, Albumin 2.2L, Globulin 3.9, Albumin/Globulin Ratio 0.6L 02/24/17 05:00: Urine Eosinophils Few Height (Feet): 5 Height (Inches): 7.00 Weight (Pounds): 117 Cardiovascular: bradycardia Respiratory/Chest: decreased breath sounds Abdomen: soft Genitourinary/Rectal: other - shi in GENARO DUARTE Feb 24, 2017 11:10
--- NOTE | 2017-02-24 11:18 | Diagnostic Imaging Report ---
Indication:Abnormal chest x-ray. Suspected pleural effusion Technique: Grayscale and duplex Doppler imaging of the chest performed. Comparison: None Findings: There is no pleural effusion on either side. The findings on recent chest x-ray likely reflect pleural thickening and/or atelectasis, mimicking an effusion. Impression: No pleural effusion demonstrated bilaterally
--- NOTE | 2017-02-24 11:20 | Diagnostic Imaging Report ---
Indication:Elevated Bun and Creatinine. Technique: Grayscale and duplex Doppler imaging of the kidneys performed. Comparison: None Findings: There is a moderate degree of right hydronephrosis demonstrated. The reason for this is not known and further evaluation is recommended CT. The right kidney measuring about 11 CM. Left kidney measures about 10 CM in length. There is a calcification with posterior shadowing within the left kidney possibly vascular or a tiny nonobstructive stone. IVC is unremarkable. There is a Esqueda catheter within a completely nondistended urinary bladder. Impression: Moderate right hydronephrosis. Further evaluation with CT is suggested. Questionable nonobstructive stone in the left kidney.
[2017-02-24 12:00] VITALS: BP 136/79
[2017-02-24] MEDS: KCl 10% 40mEq/30ml liquid NG SCH ×2 (13:00→18:51)
--- NOTE | 2017-02-24 13:11 | Diagnostic Imaging Report ---
Indication: Dyspnea Comparison: 02/23/17 A single view chest radiograph was obtained. Findings: Patchy interstitial and airspace opacities noted bilaterally without significant change. Cardiac enlargement is stable. Extensive surgical clips in the right axilla noted. A left basilar density silhouetting out the left hemidiaphragm and heart border again demonstrated. By ultrasound this is not a pleural effusion. This may be pleural thickening or may be consolidation/atelectasis. 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
--- NOTE | 2017-02-24 13:11 | Diagnostic Imaging Report ---
Indication: Dyspnea Comparison: 02/23/17 A single view chest radiograph was obtained. Findings: Patchy interstitial and airspace opacities noted bilaterally without significant change. Cardiac enlargement is stable. Extensive surgical clips in the right axilla noted. A left basilar density silhouetting out the left hemidiaphragm and heart border again demonstrated. By ultrasound this is not a pleural effusion. This may be pleural thickening or may be consolidation/atelectasis. 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
--- NOTE | 2017-02-24 13:11 | Diagnostic Imaging Report ---
Indication: Dyspnea Comparison: 02/23/17 A single view chest radiograph was obtained. Findings: Patchy interstitial and airspace opacities noted bilaterally without significant change. Cardiac enlargement is stable. Extensive surgical clips in the right axilla noted. A left basilar density silhouetting out the left hemidiaphragm and heart border again demonstrated. By ultrasound this is not a pleural effusion. This may be pleural thickening or may be consolidation/atelectasis. The Impression: No manager of change the last day
--- NOTE | 2017-02-24 14:46 | Cardiology Progress Note ---
Assessment/Plan Assessment/Plan 1. Respiratory failure. 2. Chronic obstructive pulmonary disease exacerbation. 3. Questionable pneumonia. 4. History of mitral regurgitation of significant degree. 5. History of subdural hematomas and intracranial hemorrhage. 6. History of breast cancer. 7. Anemia. 8. History of Clostridium difficile colitis. 9. History of anxiety. 10. Sinus tachycardia secondary to above. 11. Htn 12. CHF acute diastolic continue pulm rxn tele reviewed labs reviewed cr stable cxr noted agree with u/s plan for possible thoracentesis Subjective ROS Limited/Unobtainable: Yes Cardiovascular: Denies: lightheadedness Respiratory: Denies: shortness of breath Gastrointestinal/Abdominal: Denies: abdominal pain Genitourinary: Denies: frequency Subjective little better Objective Last 24 Hour Vital Signs Date Time Temp Pulse Resp B/P (MAP) Pulse Ox O2 Delivery O2 Flow Rate FiO2 02/24/17 12:00 97.9 91 21 136/79 96 Non-Rebreather 100 02/24/17 10:31 97.3 02/24/17 09:33 97 141/70 02/24/17 09:32 141/70 02/24/17 08:00 97.3 97 20 141/70 93 Non-Rebreather 100 02/24/17 07:03 Non-Rebreather 100 02/24/17 07:03 94 Non-Rebreather 15.0 100 02/24/17 07:03 82 22 Non-Rebreather 100 02/24/17 04:00 97.0 82 16 92/42 96 Non-Rebreather 15.0 100 02/24/17 04:00 82 02/24/17 00:00 81 02/24/17 00:00 97.7 85 16 133/59 97 Non-Rebreather 15.0 100 02/23/17 20:20 99 131/69 02/23/17 20:00 104 02/23/17 20:00 99 25 Non-Rebreather 100 02/23/17 20:00 95 Non-Rebreather 15.0 100 02/23/17 20:00 97.7 78 20 131/69 97 Non-Rebreather 15.0 100 02/23/17 20:00 Non-Rebreather 100 02/23/17 18:18 130/74 02/23/17 16:00 104 02/23/17 16:00 97.4 104 19 96/58 100 Non-Rebreather 15.0 General Appearance: alert Neck: supple Cardiovascular: normal rate, regular rhythm Respiratory/Chest: expiratory wheezing Abdomen: normal bowel sounds, non tender, soft Extremities: no swelling Intake and Output 02/24/17 02/25/17 19:00 07:00 Intake Total 120 ml Balance 120 ml Intake Oral 120 ml Laboratory Tests Test 02/24/17 04:40 02/24/17 05:00 White Blood Count 10.9 K/UL (4.8-10.8) H Red Blood Count 2.83 M/UL (4.20-5.40) L Hemoglobin 9.6 G/DL (12.0-16.0) L Hematocrit 29.0 % (37.0-47.0) L Mean Corpuscular Volume 103 FL (80-99) H Mean Corpuscular Hemoglobin 34.0 PG (27.0-31.0) H Mean Corpuscular Hemoglobin Concent 33.2 G/DL (32.0-36.0) Red Cell Distribution Width 12.0 % (11.6-14.8) Platelet Count 260 K/UL (150-450) Mean Platelet Volume 7.7 FL (6.5-10.1) Neutrophils (%) (Auto) 73.6 % (45.0-75.0) Lymphocytes (%) (Auto) 18.6 % (20.0-45.0) L Monocytes (%) (Auto) 6.2 % (1.0-10.0) Eosinophils (%) (Auto) 1.3 % (0.0-3.0) Basophils (%) (Auto) 0.3 % (0.0-2.0) Sodium Level 141 MMOL/L (136-145) Potassium Level 3.3 MMOL/L (3.5-5.1) L Chloride Level 100 MMOL/L (98-107) Carbon Dioxide Level 38 MMOL/L (21-32) H Anion Gap 3 mmol/L (5-15) L Blood Urea Nitrogen 51 mg/dL (7-18) H Creatinine 0.9 MG/DL (0.55-1.30) Estimat Glomerular Filtration Rate mL/min (>60) Glucose Level 92 MG/DL (74-106) Calcium Level 9.4 MG/DL (8.5-10.1) Total Bilirubin 0.5 MG/DL (0.2-1.0) Aspartate Amino Transf (AST/SGOT) 19 U/L (15-37) Alanine Aminotransferase (ALT/SGPT) 12 U/L (12-78) Alkaline Phosphatase 50 U/L (46-116) Pro-B-Type Natriuretic Peptide 637 pg/mL (0-125) H Total Protein 6.1 G/DL (6.4-8.2) L Albumin 2.2 G/DL (3.4-5.0) L Globulin 3.9 g/dL Albumin/Globulin Ratio 0.6 (1.0-2.7) L Urine Eosinophils Few Microbiology Date/Time Source Procedure Growth Status 02/24/17 01:30 Sputum Induced Gram Stain - Final Resulted 02/24/17 01:30 Sputum Induced Sputum Culture Pending Resulted JEFFERSON ROMEO Feb 24, 2017 14:46
--- NOTE | 2017-02-24 15:16 | Internal Med Progress Note ---
Subjective Date of Service: Feb 24, 2017 Physician Name Zeb Fuentes Attending Physician Jun Cedillo MD Current Medications Medications (Trade) Dose Ordered Sig/Wilner Route PRN Reason Start Time Stop Time Status Last Admin Dose Admin Acetaminophen (Tylenol) 650 mg Q4H PRN ORAL FEVER 02/15/17 22:45 03/17/17 22:44 Albuterol/ Ipratropium (DuoNeb 0.5-3(2.5)mg/3ml) 3 ml Q4HRT PRN HHN sob 02/22/17 13:00 02/27/17 12:59 Allopurinol (Allopurinol) 300 mg DAILY ORAL 02/24/17 13:00 03/26/17 12:59 02/24/17 14:21 Aspirin (Ecotrin) 81 mg DAILY ORAL 02/17/17 09:00 03/19/17 08:59 02/24/17 09:33 Bisacodyl (Dulcolax) 10 mg DAILYPRN PRN RECTAL Constipation 02/22/17 12:00 03/24/17 11:59 02/23/17 06:33 Carvedilol (Coreg) 6.25 mg Q12HR ORAL 02/23/17 21:00 03/25/17 20:59 02/24/17 09:33 Dextrose (Dextrose 50%) STAT PRN IV Hypoglycemia 02/15/17 22:45 03/17/17 22:44 Escitalopram Oxalate (Lexapro) 10 mg DAILY ORAL 02/18/17 09:00 03/20/17 08:59 02/24/17 09:33 Heparin Sodium (Porcine) (Heparin 5000 units/ml) 5,000 units EVERY 12 HOURS SUBQ 02/16/17 09:00 03/18/17 08:59 02/24/17 09:35 Levalbuterol HCl (Xopenex) 1.25 mg EVERY 4 HOURS PRN HHN Bronchospasm 02/21/17 16:15 02/26/17 16:14 Lidocaine (Xylocaine 1% MPF 5ml) 10 ml Q4H PRN HHN cough 02/17/17 10:15 03/19/17 10:14 Lisinopril (Zestril) 10 mg BID ORAL 02/24/17 18:00 03/26/17 17:59 Lorazepam (Ativan 2mg/ml 1ml) 2 mg EVERY 2 HOURS PRN IV For Anxiety 02/21/17 21:30 02/28/17 23:59 02/24/17 02:37 Meropenem 1 gm/ Sodium Chloride 110 ml @ 220 mls/hr Q12HR IVPB 02/18/17 21:00 02/28/17 20:59 02/24/17 10:49 Methylprednisolone Sodium Succinate (Solu-MEDROL) 20 mg DAILY IVP 02/21/17 09:00 03/23/17 08:59 02/24/17 09:31 Morphine Sulfate (Morphine Sulfate) 4 mg EVERY 4 HOURS PRN IVP Severe Pain (Pain Scale 7-10) 02/21/17 21:30 02/28/17 21:30 02/23/17 21:59 Ondansetron HCl (Zofran) 4 mg Q6H PRN IVP Nausea & Vomiting 02/15/17 22:45 03/17/17 22:44 02/22/17 06:53 Polyethylene Glycol (Miralax) 17 gm DAILYPRN PRN ORAL Constipation 02/15/17 22:45 03/17/17 22:44 02/17/17 04:59 Potassium Chloride (KCl 10% 40mEq Oral solution) 40 meq TWICE A DAY NG 02/24/17 13:00 03/26/17 12:59 Pravastatin Sodium (Pravachol) 20 mg BEDTIME ORAL 02/16/17 21:00 03/18/17 20:59 02/23/17 20:20 Pregabalin (Lyrica) 150 mg THREE TIMES A DAY ORAL 02/16/17 13:00 03/18/17 12:59 02/24/17 14:03 Promethazine HCl/ Codeine (Phenergan with Codeine) 5 ml Q4H PRN ORAL For Cough 02/16/17 10:45 03/18/17 10:44 02/18/17 09:07 Ranitidine HCl (Zantac) 150 mg TWICE A DAY ORAL 02/24/17 13:00 03/26/17 12:59 02/24/17 14:21 Vancomycin HCl (Vanco rx to dose) 1 ea DAILY PRN MISC PER RX PROTOCOL 02/16/17 07:45 03/18/17 07:44 Vancomycin/Sodium Chloride 250 ml @ 166.667 mls/hr Q24H IVPB 02/23/17 21:00 02/28/17 20:59 02/23/17 21:58 Allergies: Coded Allergies: TETRACYCLINE (Unverified Allergy, Unknown, 07/24/14) ROS Limited/Unobtainable: No Constitutional: Reports: no symptoms HEENT: Reports: no symptoms Cardiovascular: Reports: no symptoms Respiratory: Reports: shortness of breath Gastrointestinal/Abdominal: Reports: no symptoms Genitourinary: Reports: no symptoms Neurologic/Psychiatric: Reports: no symptoms Subjective 76 YO F admitted with shortness of breath. Now pneumonia. Cover for Int Med- Dr Cedillo. [place]. Currently on non-rebreather. Await CT chest Objective Last Vital Signs Date Time Temp Pulse Resp B/P (MAP) Pulse Ox O2 Delivery O2 Flow Rate FiO2 02/24/17 12:00 97.9 91 21 136/79 96 Non-Rebreather 100 02/24/17 07:03 15.0 Laboratory Tests Test 02/24/17 04:40 02/24/17 05:00 White Blood Count 10.9 K/UL (4.8-10.8) H Red Blood Count 2.83 M/UL (4.20-5.40) L Hemoglobin 9.6 G/DL (12.0-16.0) L Hematocrit 29.0 % (37.0-47.0) L Mean Corpuscular Volume 103 FL (80-99) H Mean Corpuscular Hemoglobin 34.0 PG (27.0-31.0) H Mean Corpuscular Hemoglobin Concent 33.2 G/DL (32.0-36.0) Red Cell Distribution Width 12.0 % (11.6-14.8) Platelet Count 260 K/UL (150-450) Mean Platelet Volume 7.7 FL (6.5-10.1) Neutrophils (%) (Auto) 73.6 % (45.0-75.0) Lymphocytes (%) (Auto) 18.6 % (20.0-45.0) L Monocytes (%) (Auto) 6.2 % (1.0-10.0) Eosinophils (%) (Auto) 1.3 % (0.0-3.0) Basophils (%) (Auto) 0.3 % (0.0-2.0) Sodium Level 141 MMOL/L (136-145) Potassium Level 3.3 MMOL/L (3.5-5.1) L Chloride Level 100 MMOL/L (98-107) Carbon Dioxide Level 38 MMOL/L (21-32) H Anion Gap 3 mmol/L (5-15) L Blood Urea Nitrogen 51 mg/dL (7-18) H Creatinine 0.9 MG/DL (0.55-1.30) Estimat Glomerular Filtration Rate mL/min (>60) Glucose Level 92 MG/DL (74-106) Calcium Level 9.4 MG/DL (8.5-10.1) Total Bilirubin 0.5 MG/DL (0.2-1.0) Aspartate Amino Transf (AST/SGOT) 19 U/L (15-37) Alanine Aminotransferase (ALT/SGPT) 12 U/L (12-78) Alkaline Phosphatase 50 U/L (46-116) Pro-B-Type Natriuretic Peptide 637 pg/mL (0-125) H Total Protein 6.1 G/DL (6.4-8.2) L Albumin 2.2 G/DL (3.4-5.0) L Globulin 3.9 g/dL Albumin/Globulin Ratio 0.6 (1.0-2.7) L Urine Eosinophils Few Microbiology Date/Time Source Procedure Growth Status 02/24/17 01:30 Sputum Induced Gram Stain - Final Resulted 02/24/17 01:30 Sputum Induced Sputum Culture Pending Resulted Intake and Output 02/24/17 02/25/17 19:00 07:00 Intake Total 120 ml Balance 120 ml Intake Oral 120 ml Objective General Appearance: WD/WN, no apparent distress, alert EENT: PERRL/EOMI, normal ENT inspection, TMs normal Neck: non-tender, normal alignment, supple, normal inspection Cardiovascular: normal peripheral pulses, normal rate, regular rhythm, no gallop/murmur, no JVD Respiratory/Chest: non-rebreather; chest wall non-tender, respiratory distress , decreased breath sounds, crackles/rales, rhonchi - bilaterally, expiratory wheezing Abdomen: normal bowel sounds, non tender, soft, no organomegaly, no mass Extremities: normal range of motion Neurologic: director hospice operations II-XII grossly normal, no motor/sensory deficits Skin: normal pigmentation, warm/dry Assessment/Plan Problem List: (1) Allergic rhinitis (2) Hypertension Assessment & Plan: Continue lisinopril and hydralazine (3) Hypercholesteremia Assessment & Plan: Continue pravachol (4) Osteoporosis (5) Anxiety (6) Cough (7) SOB (shortness of breath) Assessment & Plan: Due to pneumonia and COPD; continue non rebreather mask per pulmonary. (8) Pneumonia Assessment & Plan: Continue Meropenem. See ID and pulmonary notes. (9) COPD exacerbation Assessment & Plan: Continue IV solumedrol and xopenex/atrovent nebs. See pulmonary note. (10) Diastolic CHF Assessment & Plan: See cardiology note. (11) Constipation Assessment & Plan: Ducolax suppository prn (12) Renal failure Assessment & Plan: D/C lasix per cardiology (13) Pleural effusion Assessment & Plan: Left. Await CT chest to R/O empyema. Status: not improved ZEB FUENTES Feb 24, 2017 15:16
[2017-02-24 16:00] VITALS: BP 131/71
--- NOTE | 2017-02-24 16:54 | General Progress Note ---
Assessment/Plan Status: stable, progressing Assessment/Plan anxiety d/o' -cont current meds -provided ro/st Subjective Neurologic/Psychiatric: Reports: anxiety, depressed, emotional problems Allergies: Coded Allergies: TETRACYCLINE (Unverified Allergy, Unknown, 07/24/14) Subjective the pt os doing well much improved/ Objective Last 24 Hour Vital Signs Date Time Temp Pulse Resp B/P (MAP) Pulse Ox O2 Delivery O2 Flow Rate FiO2 02/24/17 15:02 97.9 02/24/17 12:00 97.9 91 21 136/79 96 Non-Rebreather 100 02/24/17 11:45 89 02/24/17 09:33 97 141/70 02/24/17 09:32 141/70 02/24/17 08:00 97.3 97 20 141/70 93 Non-Rebreather 100 02/24/17 07:37 89 02/24/17 07:03 Non-Rebreather 100 02/24/17 07:03 94 Non-Rebreather 15.0 100 02/24/17 07:03 82 22 Non-Rebreather 100 02/24/17 04:00 97.0 82 16 92/42 96 Non-Rebreather 15.0 100 02/24/17 04:00 82 02/24/17 00:00 81 02/24/17 00:00 97.7 85 16 133/59 97 Non-Rebreather 15.0 100 02/23/17 20:20 99 131/69 02/23/17 20:00 104 02/23/17 20:00 99 25 Non-Rebreather 100 02/23/17 20:00 95 Non-Rebreather 15.0 100 02/23/17 20:00 97.7 78 20 131/69 97 Non-Rebreather 15.0 100 02/23/17 20:00 Non-Rebreather 100 02/23/17 18:18 130/74 Intake and Output 02/24/17 02/25/17 19:00 07:00 Intake Total 120 ml Balance 120 ml Intake Oral 120 ml Laboratory Tests 02/24/17 04:40: White Blood Count 10.9H, Red Blood Count 2.83L, Hemoglobin 9.6L, Hematocrit 29.0L, Mean Corpuscular Volume 103H, Mean Corpuscular Hemoglobin 34.0H, Mean Corpuscular Hemoglobin Concent 33.2, Red Cell Distribution Width 12.0, Platelet Count 260, Mean Platelet Volume 7.7, Neutrophils (%) (Auto) 73.6, Lymphocytes (% ) (Auto) 18.6L, Monocytes (%) (Auto) 6.2, Eosinophils (%) (Auto) 1.3, Basophils (%) (Auto) 0.3, Sodium Level 141, Potassium Level 3.3L, Chloride Level 100, Carbon Dioxide Level 38H, Anion Gap 3L, Blood Urea Nitrogen 51H, Creatinine 0.9 , Estimat Glomerular Filtration Rate , Glucose Level 92, Calcium Level 9.4, Total Bilirubin 0.5, Aspartate Amino Transf (AST/SGOT) 19, Alanine Aminotransferase (ALT/SGPT) 12, Alkaline Phosphatase 50, Pro-B-Type Natriuretic Peptide 637H, Total Protein 6.1L, Albumin 2.2L, Globulin 3.9, Albumin/Globulin Ratio 0.6L 02/24/17 05:00: Urine Eosinophils Few Height (Feet): 5 Height (Inches): 7.00 Weight (Pounds): 117 General Appearance: no apparent distress, alert, overweight Neurologic: alert, oriented x 3, responsive, depressed affect Wan Stern M.D. Feb 24, 2017 16:54
[2017-02-24] MEDS: Lisinopril 10mg tab ORAL SCH (18:55)
[2017-02-24 20:00] VITALS: BP 155/83
[2017-02-24] MEDS: Morphine Sulfate 4mg/ml Inj IVP PRN (20:21)
[2017-02-24] MEDS: Vancomycin 750mg/NS 250ml IVPB SCH (22:02)
[2017-02-25] VITALS (15 sets, daily range): BP systolic 100–169; BP diastolic 61–114
[2017-02-25] MEDS: LORazepam Inj 2mg/ml 1ml IV PRN (04:05)
[2017-02-25] MEDS: Morphine Sulfate 4mg/ml Inj IVP PRN (04:05)
[2017-02-25 05:26] LABS: BASOPHILS % (AUTO) 0.3 % (0.0-2.0); EOSINOPHILS % (AUTO) 0.7 % (0.0-3.0); HEMATOCRIT 30.9 % (37.0-47.0); HEMOGLOBIN 10.3 G/DL (12.0-16.0); LYMPHOCYTES % (AUTO) 21.3 % (20.0-45.0); MEAN CORPUSCULAR VOLUME 103 FL (80-99); MONOCYTES % (AUTO) 8.1 % (1.0-10.0); NEUTROPHILS % (AUTO) 69.6 % (45.0-75.0); PLATELET COUNT 289 K/UL (150-450); RED CELL DISTRIBUTION WIDTH 12.1 % (11.6-14.8); WHITE BLOOD COUNT 8.5 K/UL (4.8-10.8)
[2017-02-25 06:23] LABS: ALANINE AMINOTRANSFERASE 14 U/L (12-78); ALBUMIN 2.3 G/DL (3.4-5.0); ALBUMIN/GLOBULIN RATIO 0.5 (1.0-2.7); ALKALINE PHOSPHATASE 51 U/L (46-116); ANION GAP 5 mmol/L (5-15); ASPARTATE AMINO TRANSFERASE 21 U/L (15-37); BILIRUBIN,TOTAL 0.5 MG/DL (0.2-1.0); BLOOD UREA NITROGEN 37 mg/dL (7-18); CALCIUM 9.6 MG/DL (8.5-10.1); CARBON DIOXIDE 35 MMOL/L (21-32); CHLORIDE 104 MMOL/L (98-107); CREATININE 0.7 MG/DL (0.55-1.30); PHOSPHORUS 2.3 MG/DL (2.5-4.9); POTASSIUM 4.2 MMOL/L (3.5-5.1); SODIUM 144 MMOL/L (136-145)
[2017-02-25] MEDS ORDERED: HydrALAZINE 50mg tab ORAL PRN (08:00)
--- NOTE | 2017-02-25 08:41 | Diagnostic Imaging Report ---
Clinical Indication: Shortness of breath Technique: Spiral acquisitions obtained through the chest. No IV contrast utilized, referring physician request. Multiplanar reconstructions generated. Total dose length product 891 mGycm. CTDIvol(s) 26 mGy. Dose reduction achieved using automated exposure control Comparison: None Findings:Material is seen filling the distal left mainstem bronchus and proximal lobar bronchi. There is complete consolidation and atelectasis of the left lower lobe. There is dense consolidation of most of the left upper lobe, likewise with a significant component of volume loss. There is dense consolidation of a significant portion of the posterior left upper lobe, with reticular and groundglass opacities elsewhere within the right upper lobe. Reticular nodular opacities are seen within the right lower lobe and to lesser extent within the right middle lobe. Consolidation of the right lung is much less extensive than on the left. There is trace pleural fluid on the left. The heart is enlarged. No mediastinal or hilar mass or adenopathy. Esophagus is unremarkable. The left main pulmonary artery is dilated, measuring 3.2 cm in diameter. The included portions of the thyroid are unremarkable. No axillary or chest wall mass or adenopathy. Surgical clips are seen in the right axilla. The bones demonstrate degenerative spondylosis changes. There are very mild compression deformities of the T12 and T10 vertebral bodies. There is questionably deformity of the mid sternal body, old injury not excludable. The included upper abdominal anatomy is unremarkable. Impression: Near-complete occlusion of the left mainstem bronchus and proximal lobar bronchi, probably by debris. Extensive resultant atelectasis and consolidation of nearly the entire left lung Less extensive consolidation within the right lung, nonspecific as regards etiology, likely secondary to pneumonia or edema Trace left pleural effusion Cardiomegaly Dilated left pulmonary artery, suspect pulmonary arterial hypertension Evidence of prior right axillary surgery Equivocal mild T10 and T12 compression fracture deformities, acuity indeterminate if real. Consider MRI for further evaluation if this is of clinical concern Possible old midsternal compression fracture The CT scanner at [facility] is accredited by the [employer] and the scans are performed using protocols designed to limit radiation exposure to as low as reasonably achievable to attain images of sufficient resolution adequate for diagnostic evaluation.
[2017-02-25] MEDS: Solu-MEDROL 40mg Inj IVP SCH (08:47)
[2017-02-25] MEDS: Lyrica 75mg cap ORAL SCH ×3 (08:48→17:26)
[2017-02-25] MEDS: KCl 10% 40mEq/30ml liquid NG SCH (08:48)
[2017-02-25] MEDS: Carvedilol 6.25mg Tab ORAL SCH ×2 (08:49→20:30)
[2017-02-25] MEDS: Lisinopril 10mg tab ORAL SCH (08:49)
[2017-02-25] MEDS: Aspirin EC 81mg tab ORAL SCH (08:50)
[2017-02-25] MEDS: Meropenem 1 GM in NS 110 ML IVPB SCH ×2 (08:52→20:26)
[2017-02-25] MEDS: Heparin 5000 units/ml inj SUBQ SCH (08:52)
--- NOTE | 2017-02-25 11:07 | Pulmonolgy Critical Care Note ---
Critical Care - Asmt/Plan Problems: (1) Acute and chronic respiratory failure ([id number]) (2) COPD (chronic obstructive pulmonary disease) (3) Right middle lobe pneumonia (4) Collapse of left lung Assessment/Plan: CT reviewed, dense debrires in main bronchus. needs bronchoscopy and a few days of intubation ( hopefully) to open up the lung Respiratory: monitor respiratory rate, adjust FIO2 Cardiac: continue pressors, continue to monitor HR/BP Renal: F/U I&O, keep IV fluid, increase IV fluid, check electrolytes Infectious Disease: check cultures Endocrine: monitor blood sugar, check HgA1C, continue sliding scale insulin Hematologic: transfuse if hgb<8.5 Neurologic: PRN Ativan, PRN Morphine, keep patient comfortable Affect: PRN ativan Prophylaxis: Protonix, Heparin Disposition: keep in ICU Time Spent (Minutes): 40 Notes Reviewed: renal Discussed with: nurses Critical Care - Objective Last 24 Hour Vital Signs Date Time Temp Pulse Resp B/P (MAP) Pulse Ox O2 Delivery O2 Flow Rate FiO2 02/25/17 08:49 153/89 02/25/17 08:49 95 153/89 02/25/17 08:00 97.3 99 19 153/89 95 Non-Rebreather 100 02/25/17 08:00 95 02/25/17 04:00 98.8 89 20 157/87 96 Non-Rebreather 15.0 02/25/17 03:36 81 02/25/17 00:00 86 02/25/17 00:00 98.0 85 16 100/61 92 Venturi Mask 02/24/17 20:21 Non-Rebreather 15.0 100 02/24/17 20:21 96 Non-Rebreather 15.0 100 02/24/17 20:20 93 155/83 02/24/17 20:20 92 24 Non-Rebreather 15.0 100 02/24/17 20:00 97.3 93 18 155/83 100 Venturi Mask 1.5 02/24/17 20:00 112 02/24/17 19:31 98.4 02/24/17 18:55 131/71 02/24/17 16:00 98.4 102 19 131/71 99 Non-Rebreather 100 02/24/17 16:00 98 02/24/17 12:00 97.9 91 21 136/79 96 Non-Rebreather 100 02/24/17 11:45 89 Status: awake Condition: critical Lungs: chest wall tender Heart: HR/BP stable, HR/BP unstable Abdomen: soft, non-tender Extremities: edema Decubiti: location Micro: Microbiology Date/Time Source Procedure Growth Status 02/24/17 01:30 Sputum Induced Gram Stain - Final Resulted 02/24/17 01:30 Sputum Induced Sputum Culture - Preliminary Resulted Accucheck: 124 Critical Care - Subjective ROS Limited/Unobtainable: No ICU Day: 1 Condition: critical EKG Rhythm: Sinus Rhythm FI02: 100 Vent Support Mode: BiLevel Sputum Amount: None I&O: Intake and Output 02/25/17 02/26/17 19:00 07:00 Intake Total 100 ml Balance 100 ml Intake Oral 100 ml CXR: dense infiltrate at LLL Labs: Laboratory Tests Test 02/25/17 04:00 02/25/17 04:20 Urine Eosinophils None seen White Blood Count 8.5 K/UL (4.8-10.8) Red Blood Count 3.00 M/UL (4.20-5.40) L Hemoglobin 10.3 G/DL (12.0-16.0) L Hematocrit 30.9 % (37.0-47.0) L Mean Corpuscular Volume 103 FL (80-99) H Mean Corpuscular Hemoglobin 34.2 PG (27.0-31.0) H Mean Corpuscular Hemoglobin Concent 33.2 G/DL (32.0-36.0) Red Cell Distribution Width 12.1 % (11.6-14.8) Platelet Count 289 K/UL (150-450) Mean Platelet Volume 7.6 FL (6.5-10.1) Neutrophils (%) (Auto) 69.6 % (45.0-75.0) Lymphocytes (%) (Auto) 21.3 % (20.0-45.0) Monocytes (%) (Auto) 8.1 % (1.0-10.0) Eosinophils (%) (Auto) 0.7 % (0.0-3.0) Basophils (%) (Auto) 0.3 % (0.0-2.0) Prothrombin Time 10.8 SEC (9.30-11.50) Prothromb Time International Ratio 1.0 (0.9-1.1) Activated Partial Thromboplast Time 31 SEC (23-33) Sodium Level 144 MMOL/L (136-145) Potassium Level 4.2 MMOL/L (3.5-5.1) Chloride Level 104 MMOL/L (98-107) Carbon Dioxide Level 35 MMOL/L (21-32) H Anion Gap 5 mmol/L (5-15) Blood Urea Nitrogen 37 mg/dL (7-18) H Creatinine 0.7 MG/DL (0.55-1.30) Estimat Glomerular Filtration Rate mL/min (>60) Glucose Level 106 MG/DL (74-106) Uric Acid 6.9 MG/DL (2.6-7.2) Calcium Level 9.6 MG/DL (8.5-10.1) Phosphorus Level 2.3 MG/DL (2.5-4.9) L Magnesium Level 2.0 MG/DL (1.8-2.4) Total Bilirubin 0.5 MG/DL (0.2-1.0) Aspartate Amino Transf (AST/SGOT) 21 U/L (15-37) Alanine Aminotransferase (ALT/SGPT) 14 U/L (12-78) Alkaline Phosphatase 51 U/L (46-116) C-Reactive Protein, Quantitative 9.8 mg/dL (0.00-0.90) H Pro-B-Type Natriuretic Peptide 1824 pg/mL (0-125) H Total Protein 6.6 G/DL (6.4-8.2) Albumin 2.3 G/DL (3.4-5.0) L Globulin 4.3 g/dL Albumin/Globulin Ratio 0.5 (1.0-2.7) L TWIN FONTANEZ Feb 25, 2017 11:07
--- NOTE | 2017-02-25 11:30 | Internal Med Progress Note ---
Subjective Date of Service: Feb 25, 2017 Physician Name Zeb Fuentes Attending Physician Jun Cedillo MD Current Medications Medications (Trade) Dose Ordered Sig/Wilner Route PRN Reason Start Time Stop Time Status Last Admin Dose Admin Acetaminophen (Tylenol) 650 mg Q4H PRN ORAL FEVER 02/15/17 22:45 03/17/17 22:44 Albuterol/ Ipratropium (DuoNeb 0.5-3(2.5)mg/3ml) 3 ml Q4HRT PRN HHN sob 02/22/17 13:00 02/27/17 12:59 Allopurinol (Allopurinol) 300 mg DAILY ORAL 02/24/17 13:00 03/26/17 12:59 02/25/17 08:48 Aspirin (Ecotrin) 81 mg DAILY ORAL 02/17/17 09:00 03/19/17 08:59 02/25/17 08:50 Bisacodyl (Dulcolax) 10 mg DAILYPRN PRN RECTAL Constipation 02/22/17 12:00 03/24/17 11:59 02/23/17 06:33 Carvedilol (Coreg) 6.25 mg Q12HR ORAL 02/23/17 21:00 03/25/17 20:59 02/25/17 08:49 Dextrose (Dextrose 50%) STAT PRN IV Hypoglycemia 02/15/17 22:45 03/17/17 22:44 Escitalopram Oxalate (Lexapro) 10 mg DAILY ORAL 02/18/17 09:00 03/20/17 08:59 02/25/17 08:49 Heparin Sodium (Porcine) (Heparin 5000 units/ml) 5,000 units EVERY 12 HOURS SUBQ 02/16/17 09:00 03/18/17 08:59 02/24/17 20:24 Hydralazine HCl (Apresoline) 50 mg Q4H PRN ORAL SBP > 160mmHg 02/25/17 08:00 03/27/17 07:59 Levalbuterol HCl (Xopenex) 1.25 mg EVERY 4 HOURS PRN HHN Bronchospasm 02/21/17 16:15 02/26/17 16:14 Lidocaine (Xylocaine 1% MPF 5ml) 10 ml Q4H PRN HHN cough 02/17/17 10:15 03/19/17 10:14 Lisinopril (Zestril) 10 mg BID ORAL 02/24/17 18:00 03/26/17 17:59 02/25/17 08:49 Lorazepam (Ativan 2mg/ml 1ml) 2 mg EVERY 2 HOURS PRN IV For Anxiety 02/21/17 21:30 02/28/17 23:59 02/25/17 04:05 Meropenem 1 gm/ Sodium Chloride 110 ml @ 220 mls/hr Q12HR IVPB 02/18/17 21:00 02/28/17 20:59 02/25/17 08:52 Methylprednisolone Sodium Succinate (Solu-MEDROL) 20 mg DAILY IVP 02/21/17 09:00 03/23/17 08:59 02/25/17 08:47 Morphine Sulfate (Morphine Sulfate) 4 mg EVERY 4 HOURS PRN IVP Severe Pain (Pain Scale 7-10) 02/21/17 21:30 02/28/17 21:30 02/25/17 04:05 Ondansetron HCl (Zofran) 4 mg Q6H PRN IVP Nausea & Vomiting 02/15/17 22:45 03/17/17 22:44 02/22/17 06:53 Polyethylene Glycol (Miralax) 17 gm DAILYPRN PRN ORAL Constipation 02/15/17 22:45 03/17/17 22:44 02/17/17 04:59 Potassium Chloride (KCl 10% 40mEq Oral solution) 40 meq TWICE A DAY NG 02/24/17 13:00 03/26/17 12:59 02/25/17 08:48 Pravastatin Sodium (Pravachol) 20 mg BEDTIME ORAL 02/16/17 21:00 03/18/17 20:59 02/24/17 20:21 Pregabalin (Lyrica) 150 mg THREE TIMES A DAY ORAL 02/16/17 13:00 03/18/17 12:59 02/25/17 08:48 Promethazine HCl/ Codeine (Phenergan with Codeine) 5 ml Q4H PRN ORAL For Cough 02/16/17 10:45 03/18/17 10:44 02/18/17 09:07 Ranitidine HCl (Zantac) 150 mg TWICE A DAY ORAL 02/24/17 13:00 03/26/17 12:59 02/25/17 08:48 Vancomycin HCl (Vanco rx to dose) 1 ea DAILY PRN MISC PER RX PROTOCOL 02/16/17 07:45 03/18/17 07:44 Vancomycin/Sodium Chloride 250 ml @ 166.667 mls/hr Q24H IVPB 02/23/17 21:00 02/28/17 20:59 02/24/17 22:02 Allergies: Coded Allergies: TETRACYCLINE (Unverified Allergy, Unknown, 07/24/14) ROS Limited/Unobtainable: No Constitutional: Reports: no symptoms HEENT: Reports: no symptoms Cardiovascular: Reports: no symptoms Respiratory: Reports: shortness of breath Gastrointestinal/Abdominal: Reports: no symptoms Genitourinary: Reports: no symptoms Neurologic/Psychiatric: Reports: no symptoms Subjective 76 YO F admitted with shortness of breath. Now pneumonia. Cover for Int Med- Dr Cedillo. CAYETANO. Currently on non-rebreather. CT chest=occlusion left mainstem bronchus Objective Last Vital Signs Date Time Temp Pulse Resp B/P (MAP) Pulse Ox O2 Delivery O2 Flow Rate FiO2 02/25/17 08:49 153/89 02/25/17 08:49 95 02/25/17 08:00 97.3 19 95 Non-Rebreather 100 02/25/17 04:00 15.0 Laboratory Tests Test 02/25/17 04:00 02/25/17 04:20 Urine Eosinophils None seen White Blood Count 8.5 K/UL (4.8-10.8) Red Blood Count 3.00 M/UL (4.20-5.40) L Hemoglobin 10.3 G/DL (12.0-16.0) L Hematocrit 30.9 % (37.0-47.0) L Mean Corpuscular Volume 103 FL (80-99) H Mean Corpuscular Hemoglobin 34.2 PG (27.0-31.0) H Mean Corpuscular Hemoglobin Concent 33.2 G/DL (32.0-36.0) Red Cell Distribution Width 12.1 % (11.6-14.8) Platelet Count 289 K/UL (150-450) Mean Platelet Volume 7.6 FL (6.5-10.1) Neutrophils (%) (Auto) 69.6 % (45.0-75.0) Lymphocytes (%) (Auto) 21.3 % (20.0-45.0) Monocytes (%) (Auto) 8.1 % (1.0-10.0) Eosinophils (%) (Auto) 0.7 % (0.0-3.0) Basophils (%) (Auto) 0.3 % (0.0-2.0) Prothrombin Time 10.8 SEC (9.30-11.50) Prothromb Time International Ratio 1.0 (0.9-1.1) Activated Partial Thromboplast Time 31 SEC (23-33) Sodium Level 144 MMOL/L (136-145) Potassium Level 4.2 MMOL/L (3.5-5.1) Chloride Level 104 MMOL/L (98-107) Carbon Dioxide Level 35 MMOL/L (21-32) H Anion Gap 5 mmol/L (5-15) Blood Urea Nitrogen 37 mg/dL (7-18) H Creatinine 0.7 MG/DL (0.55-1.30) Estimat Glomerular Filtration Rate mL/min (>60) Glucose Level 106 MG/DL (74-106) Uric Acid 6.9 MG/DL (2.6-7.2) Calcium Level 9.6 MG/DL (8.5-10.1) Phosphorus Level 2.3 MG/DL (2.5-4.9) L Magnesium Level 2.0 MG/DL (1.8-2.4) Total Bilirubin 0.5 MG/DL (0.2-1.0) Aspartate Amino Transf (AST/SGOT) 21 U/L (15-37) Alanine Aminotransferase (ALT/SGPT) 14 U/L (12-78) Alkaline Phosphatase 51 U/L (46-116) C-Reactive Protein, Quantitative 9.8 mg/dL (0.00-0.90) H Pro-B-Type Natriuretic Peptide 1824 pg/mL (0-125) H Total Protein 6.6 G/DL (6.4-8.2) Albumin 2.3 G/DL (3.4-5.0) L Globulin 4.3 g/dL Albumin/Globulin Ratio 0.5 (1.0-2.7) L Microbiology Date/Time Source Procedure Growth Status 02/24/17 01:30 Sputum Induced Gram Stain - Final Resulted 02/24/17 01:30 Sputum Induced Sputum Culture - Preliminary Resulted Intake and Output 02/25/17 02/26/17 19:00 07:00 Intake Total 100 ml Balance 100 ml Intake Oral 100 ml Objective General Appearance: WD/WN, no apparent distress, alert EENT: PERRL/EOMI, normal ENT inspection, TMs normal Neck: non-tender, normal alignment, supple, normal inspection Cardiovascular: normal peripheral pulses, normal rate, regular rhythm, no gallop/murmur, no JVD Respiratory/Chest: non-rebreather; chest wall non-tender, respiratory distress , decreased breath sounds, crackles/rales, rhonchi - bilaterally, expiratory wheezing Abdomen: normal bowel sounds, non tender, soft, no organomegaly, no mass Extremities: normal range of motion Neurologic: flatwork presser II-XII grossly normal, no motor/sensory deficits Skin: normal pigmentation, warm/dry Assessment/Plan Problem List: (1) Allergic rhinitis (2) Hypertension Assessment & Plan: Continue lisinopril and hydralazine (3) Hypercholesteremia Assessment & Plan: Continue pravachol (4) Osteoporosis (5) Anxiety (6) Cough (7) SOB (shortness of breath) Assessment & Plan: Due to pneumonia and COPD; continue non rebreather mask per pulmonary. (8) Pneumonia Assessment & Plan: Continue Meropenem. See ID and pulmonary notes. (9) COPD exacerbation Assessment & Plan: Continue IV solumedrol and xopenex/atrovent nebs. See pulmonary note. (10) Diastolic CHF Assessment & Plan: See cardiology note. 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 Will require intubation to aerate left lung- see pulmonary note. D/W pulmonary Dr Hernandez Status: deteriorating ZEB FUENTES Feb 25, 2017 11:30
[2017-02-25] MEDS ORDERED: Haloperidol 5mg/ml Inj IM PRN (12:30)
[2017-02-25] MEDS ORDERED: Hydromorphone 0.5mg/0.5ml inj IVP PRN ×2 (12:30→15:15)
--- NOTE | 2017-02-25 12:30 | General Progress Note ---
Assessment/Plan Status: stable - from renal stand Assessment/Plan Status: Acute renal failure- etiology? 1900 cc urine out after insertion of shi--JOSE MIGUEL: Moderate right hydronephrosis. Acute on Chronic respiratory failure- HTN High Cholestrol Pneumonia COPD , exac. Diastolic CHF, Mod MR h/o C dif colitis h/o Breast Ca Anemia Pulm HTN Moderate Plan: re eval mind altering meds- adjust BP meds- Change steroids to po and aim to taper K supplement- as needed Allopurinol continue Shi- Avoid nephrotoxics JOSE MIGUEL: Moderate right hydronephrosis. Subjective ROS Limited/Unobtainable: No Constitutional: Reports: malaise, weakness Allergies: Coded Allergies: TETRACYCLINE (Unverified Allergy, Unknown, 07/24/14) Objective Last 24 Hour Vital Signs Date Time Temp Pulse Resp B/P (MAP) Pulse Ox O2 Delivery O2 Flow Rate FiO2 02/25/17 12:01 98.2 95 18 146/83 97 Non-Rebreather 100 02/25/17 08:49 153/89 02/25/17 08:49 95 153/89 02/25/17 08:00 97.3 99 19 153/89 95 Non-Rebreather 100 02/25/17 08:00 95 02/25/17 04:00 98.8 89 20 157/87 96 Non-Rebreather 15.0 02/25/17 03:36 81 02/25/17 00:00 86 02/25/17 00:00 98.0 85 16 100/61 92 Venturi Mask 02/24/17 20:21 Non-Rebreather 15.0 100 02/24/17 20:21 96 Non-Rebreather 15.0 100 02/24/17 20:20 93 155/83 02/24/17 20:20 92 24 Non-Rebreather 15.0 100 02/24/17 20:00 97.3 93 18 155/83 100 Venturi Mask 1.5 02/24/17 20:00 112 02/24/17 19:31 98.4 02/24/17 18:55 131/71 02/24/17 16:00 98.4 102 19 131/71 99 Non-Rebreather 100 02/24/17 16:00 98 Intake and Output 02/25/17 02/26/17 19:00 07:00 Intake Total 210 ml Balance 210 ml Intake Oral 100 ml IV Total 110 ml Laboratory Tests 02/25/17 04:00: Urine Eosinophils None seen 02/25/17 04:20: White Blood Count 8.5, Red Blood Count 3.00L, Hemoglobin 10.3L, Hematocrit 30.9L , Mean Corpuscular Volume 103H, Mean Corpuscular Hemoglobin 34.2H, Mean Corpuscular Hemoglobin Concent 33.2, Red Cell Distribution Width 12.1, Platelet Count 289, Mean Platelet Volume 7.6, Neutrophils (%) (Auto) 69.6, Lymphocytes (% ) (Auto) 21.3, Monocytes (%) (Auto) 8.1, Eosinophils (%) (Auto) 0.7, Basophils ( %) (Auto) 0.3, Prothrombin Time 10.8, Prothromb Time International Ratio 1.0, Activated Partial Thromboplast Time 31, Sodium Level 144, Potassium Level 4.2, Chloride Level 104, Carbon Dioxide Level 35H, Anion Gap 5, Blood Urea Nitrogen 37H, Creatinine 0.7, Estimat Glomerular Filtration Rate , Glucose Level 106, Uric Acid 6.9, Calcium Level 9.6, Phosphorus Level 2.3L, Magnesium Level 2.0, Total Bilirubin 0.5, Aspartate Amino Transf (AST/SGOT) 21, Alanine Aminotransferase (ALT/SGPT) 14, Alkaline Phosphatase 51, C-Reactive Protein, Quantitative 9.8H, Pro-B-Type Natriuretic Peptide 1824H, Total Protein 6.6, Albumin 2.3L, Globulin 4.3, Albumin/Globulin Ratio 0.5L Height (Feet): 5 Height (Inches): 7.00 Weight (Pounds): 123 General Appearance: mild distress EENT: other - on mask Cardiovascular: tachycardia Respiratory/Chest: decreased breath sounds Abdomen: soft Objective no edema GENARO DUARTE Feb 25, 2017 12:30
[2017-02-25] MEDS ORDERED: Promethazine/Codeine 5ml UD ORAL PRN (15:15)
[2017-02-25] MEDS ORDERED: Miralax 17gm pkt ORAL PRN (15:15)
[2017-02-25] MEDS ORDERED: Lidocaine 1% MPF 10mg/ml 5ml HHN PRN (15:15)
[2017-02-25] MEDS ORDERED: Levalbuterol Inh UD 1.25mg/0.5ml HHN PRN (15:15)
[2017-02-25] MEDS ORDERED: Albuterol/Ipratropium 3ml neb HHN PRN (15:15)
[2017-02-25] MEDS ORDERED: HydrALAZINE 25mg tab ORAL PRN (16:00)
[2017-02-25] MEDS: Lisinopril 20mg tab ORAL SCH (17:27)
[2017-02-25] MEDS: HydrALAZINE 25mg tab ORAL PRN (17:27)
[2017-02-25] MEDS ORDERED: Tubing IV Secondary IV ONE (17:39)
[2017-02-25] MEDS ORDERED: 1/2 NS 1000ml IV ONE (17:39)
[2017-02-25] MEDS ORDERED: Lisinopril 10mg tab ORAL SCH (18:00)
--- NOTE | 2017-02-25 18:59 | Cardiology Progress Note ---
Assessment/Plan Assessment/Plan 1. Respiratory failure. 2. Chronic obstructive pulmonary disease exacerbation. 3. Questionable pneumonia. 4. History of mitral regurgitation of significant degree. 5. History of subdural hematomas and intracranial hemorrhage. 6. History of breast cancer. 7. Anemia. 8. History of Clostridium difficile colitis. 9. History of anxiety. 10. Sinus tachycardia secondary to above. 11. Htn 12. CHF acute diastolic 13. l m bronchus occlusion with debris 14. lung collapase continue pulm rxn tele reviewed now in icu as may need intubation labs reviewed cr stable dt noted: Impression: Near-complete occlusion of the left mainstem bronchus and proximal lobar bronchi, probably by debris. Extensive resultant atelectasis and consolidation of nearly the entire left lung Subjective ROS Limited/Unobtainable: Yes Subjective little better Objective Last 24 Hour Vital Signs Date Time Temp Pulse Resp B/P (MAP) Pulse Ox O2 Delivery O2 Flow Rate FiO2 02/25/17 18:00 88 20 152/73 97 Non-Rebreather 100 02/25/17 17:27 181/85 02/25/17 17:27 164/72 02/25/17 17:00 93 23 164/72 95 Non-Rebreather 100 02/25/17 16:00 98.6 100 24 158/107 93 Non-Rebreather 100 02/25/17 16:00 99 02/25/17 15:00 100 23 164/94 93 Non-Rebreather 100 02/25/17 14:00 96 24 161/78 93 Non-Rebreather 100 02/25/17 13:00 93 21 146/67 95 Non-Rebreather 100 02/25/17 12:01 98.2 95 18 146/83 97 Non-Rebreather 100 02/25/17 12:00 95 02/25/17 08:49 153/89 02/25/17 08:49 95 153/89 02/25/17 08:00 97.3 99 19 153/89 95 Non-Rebreather 100 02/25/17 08:00 95 02/25/17 04:00 98.8 89 20 157/87 96 Non-Rebreather 15.0 02/25/17 03:36 81 02/25/17 00:00 86 02/25/17 00:00 98.0 85 16 100/61 92 Venturi Mask 02/24/17 20:21 Non-Rebreather 15.0 100 02/24/17 20:21 96 Non-Rebreather 15.0 100 02/24/17 20:20 93 155/83 02/24/17 20:20 92 24 Non-Rebreather 15.0 100 02/24/17 20:00 97.3 93 18 155/83 100 Venturi Mask 1.5 02/24/17 20:00 112 02/24/17 19:31 98.4 General Appearance: lethargic Neck: no JVD Cardiovascular: normal rate, regular rhythm Respiratory/Chest: rhonchi - bilaterally Abdomen: normal bowel sounds, non tender, soft Extremities: no swelling Intake and Output 02/25/17 02/26/17 19:00 07:00 Intake Total 270 ml Output Total 1065 ml Balance -795 ml Intake Oral 160 ml IV Total 110 ml Output Urine Total 1065 ml # Bowel Movements 2 Laboratory Tests Test 02/25/17 04:00 02/25/17 04:20 Urine Eosinophils None seen White Blood Count 8.5 K/UL (4.8-10.8) Red Blood Count 3.00 M/UL (4.20-5.40) L Hemoglobin 10.3 G/DL (12.0-16.0) L Hematocrit 30.9 % (37.0-47.0) L Mean Corpuscular Volume 103 FL (80-99) H Mean Corpuscular Hemoglobin 34.2 PG (27.0-31.0) H Mean Corpuscular Hemoglobin Concent 33.2 G/DL (32.0-36.0) Red Cell Distribution Width 12.1 % (11.6-14.8) Platelet Count 289 K/UL (150-450) Mean Platelet Volume 7.6 FL (6.5-10.1) Neutrophils (%) (Auto) 69.6 % (45.0-75.0) Lymphocytes (%) (Auto) 21.3 % (20.0-45.0) Monocytes (%) (Auto) 8.1 % (1.0-10.0) Eosinophils (%) (Auto) 0.7 % (0.0-3.0) Basophils (%) (Auto) 0.3 % (0.0-2.0) Prothrombin Time 10.8 SEC (9.30-11.50) Prothromb Time International Ratio 1.0 (0.9-1.1) Activated Partial Thromboplast Time 31 SEC (23-33) Sodium Level 144 MMOL/L (136-145) Potassium Level 4.2 MMOL/L (3.5-5.1) Chloride Level 104 MMOL/L (98-107) Carbon Dioxide Level 35 MMOL/L (21-32) H Anion Gap 5 mmol/L (5-15) Blood Urea Nitrogen 37 mg/dL (7-18) H Creatinine 0.7 MG/DL (0.55-1.30) Estimat Glomerular Filtration Rate mL/min (>60) Glucose Level 106 MG/DL (74-106) Uric Acid 6.9 MG/DL (2.6-7.2) Calcium Level 9.6 MG/DL (8.5-10.1) Phosphorus Level 2.3 MG/DL (2.5-4.9) L Magnesium Level 2.0 MG/DL (1.8-2.4) Total Bilirubin 0.5 MG/DL (0.2-1.0) Aspartate Amino Transf (AST/SGOT) 21 U/L (15-37) Alanine Aminotransferase (ALT/SGPT) 14 U/L (12-78) Alkaline Phosphatase 51 U/L (46-116) C-Reactive Protein, Quantitative 9.8 mg/dL (0.00-0.90) H Pro-B-Type Natriuretic Peptide 1824 pg/mL (0-125) H Total Protein 6.6 G/DL (6.4-8.2) Albumin 2.3 G/DL (3.4-5.0) L Globulin 4.3 g/dL Albumin/Globulin Ratio 0.5 (1.0-2.7) L Microbiology Date/Time Source Procedure Growth Status 02/24/17 01:30 Sputum Induced Gram Stain - Final Resulted 02/24/17 01:30 Sputum Induced Sputum Culture - Preliminary Resulted JEFFERSON ROMEO Feb 25, 2017 18:59
--- NOTE | 2017-02-25 20:22 | Infectious Diseases Prog Note ---
Assessment/Plan Assessment/Plan Assessment: Acute on chronic hypoxic resp failure, - combination of COPD exacerbation and PNA, mucous plugging -venous duplex 02/16no DVT PNA; worsening- r/o MDRO, r/o fungal pneumonia. SGS(-), Cx NGTD - CT Chest 02/24: Near-complete occlusion of the left mainstem bronchus and proximal lobar bronchi, probably by debris. Extensive resultant atelectasis and consolidation of nearly the entire left lung. Less extensive consolidation within the right lung, nonspecific as regards etiology, likely secondary to pneumonia or edema -CXR 02/23: Better inspiration currently. Overall improved aeration of the right mid and lower lung, with decreased dense consolidation and is still fairly extensive parenchymal opacity. The right pleural space is clear. Large left pleural effusion is again demonstrated, and is increased from the prior exam. There is also increasing consolidation of the residual aerated lung in the left upper hemithorax. -negative: CrAg L pleural effusion r/o empyema Leukocytosis, mild - resolved, afebrile (on steroids) COPD on home O2 Hx of Cdiff DM2 Chronic abd pain hx of MRSA bacteremia 07/2015 fibromyalgia, HTN, HLD, R breast cancer,Tobacco abuse (stopped 4 years ago), Anxiety, AOCD TCA allergy Full Code Plan: -Continue IV Vancomycin #03/24 -s/p 6d prophylatic PO vanco 02/21 -consider L diagnostic and therapeutic thoracentesis, send fluid for analysis and culture - consider bronchoscopy -Continue Meropenem d# 8 (abx d#03/24) -f/u Cocci ab -F/u cultures -Monitor CBC/BMP, temperatures -Aspiration precautions Subjective Allergies: Coded Allergies: TETRACYCLINE (Unverified Allergy, Unknown, 07/24/14) Subjective remains afebrile appears comfortable CT noted Objective Vital Signs Last 24 Hour Vital Signs Date Time Temp Pulse Resp B/P (MAP) Pulse Ox O2 Delivery O2 Flow Rate FiO2 02/25/17 19:02 89 20 Non-Rebreather 15.0 100 02/25/17 19:02 97 Non-Rebreather 15.0 100 02/25/17 19:02 Non-Rebreather 15.0 100 02/25/17 18:00 88 20 152/73 97 Non-Rebreather 100 02/25/17 17:27 181/85 02/25/17 17:27 164/72 02/25/17 17:00 93 23 164/72 95 Non-Rebreather 100 02/25/17 16:00 98.6 100 24 158/107 93 Non-Rebreather 100 02/25/17 16:00 99 02/25/17 15:00 100 23 164/94 93 Non-Rebreather 100 02/25/17 14:00 96 24 161/78 93 Non-Rebreather 100 02/25/17 13:00 93 21 146/67 95 Non-Rebreather 100 02/25/17 12:01 98.2 95 18 146/83 97 Non-Rebreather 100 02/25/17 12:00 95 02/25/17 08:49 153/89 02/25/17 08:49 95 153/89 02/25/17 08:00 97.3 99 19 153/89 95 Non-Rebreather 100 02/25/17 08:00 95 02/25/17 04:00 98.8 89 20 157/87 96 Non-Rebreather 15.0 02/25/17 03:36 81 02/25/17 00:00 86 02/25/17 00:00 98.0 85 16 100/61 92 Venturi Mask 02/24/17 20:21 Non-Rebreather 15.0 100 02/24/17 20:21 96 Non-Rebreather 15.0 100 02/24/17 20:20 93 155/83 02/24/17 20:20 92 24 Non-Rebreather 15.0 100 Height (Feet): 5 Height (Inches): 7.00 Weight (Pounds): 123 General Appearance: no acute distress Respiratory/Chest: decreased breath sounds Cardiovascular: normal rate, regular rhythm Abdomen: normal bowel sounds, soft, non tender, non distended Microbiology Date/Time Source Procedure Growth Status 02/24/17 01:30 Sputum Induced Gram Stain - Final Resulted 02/24/17 01:30 Sputum Induced Sputum Culture - Preliminary Resulted Laboratory Tests Test 02/25/17 04:00 02/25/17 04:20 Urine Eosinophils None seen White Blood Count 8.5 K/UL (4.8-10.8) Red Blood Count 3.00 M/UL (4.20-5.40) L Hemoglobin 10.3 G/DL (12.0-16.0) L Hematocrit 30.9 % (37.0-47.0) L Mean Corpuscular Volume 103 FL (80-99) H Mean Corpuscular Hemoglobin 34.2 PG (27.0-31.0) H Mean Corpuscular Hemoglobin Concent 33.2 G/DL (32.0-36.0) Red Cell Distribution Width 12.1 % (11.6-14.8) Platelet Count 289 K/UL (150-450) Mean Platelet Volume 7.6 FL (6.5-10.1) Neutrophils (%) (Auto) 69.6 % (45.0-75.0) Lymphocytes (%) (Auto) 21.3 % (20.0-45.0) Monocytes (%) (Auto) 8.1 % (1.0-10.0) Eosinophils (%) (Auto) 0.7 % (0.0-3.0) Basophils (%) (Auto) 0.3 % (0.0-2.0) Prothrombin Time 10.8 SEC (9.30-11.50) Prothromb Time International Ratio 1.0 (0.9-1.1) Activated Partial Thromboplast Time 31 SEC (23-33) Sodium Level 144 MMOL/L (136-145) Potassium Level 4.2 MMOL/L (3.5-5.1) Chloride Level 104 MMOL/L (98-107) Carbon Dioxide Level 35 MMOL/L (21-32) H Anion Gap 5 mmol/L (5-15) Blood Urea Nitrogen 37 mg/dL (7-18) H Creatinine 0.7 MG/DL (0.55-1.30) Estimat Glomerular Filtration Rate mL/min (>60) Glucose Level 106 MG/DL (74-106) Uric Acid 6.9 MG/DL (2.6-7.2) Calcium Level 9.6 MG/DL (8.5-10.1) Phosphorus Level 2.3 MG/DL (2.5-4.9) L Magnesium Level 2.0 MG/DL (1.8-2.4) Total Bilirubin 0.5 MG/DL (0.2-1.0) Aspartate Amino Transf (AST/SGOT) 21 U/L (15-37) Alanine Aminotransferase (ALT/SGPT) 14 U/L (12-78) Alkaline Phosphatase 51 U/L (46-116) C-Reactive Protein, Quantitative 9.8 mg/dL (0.00-0.90) H Pro-B-Type Natriuretic Peptide 1824 pg/mL (0-125) H Total Protein 6.6 G/DL (6.4-8.2) Albumin 2.3 G/DL (3.4-5.0) L Globulin 4.3 g/dL Albumin/Globulin Ratio 0.5 (1.0-2.7) L Current Medications Medications (Trade) Dose Ordered Sig/Wilner Route PRN Reason Start Time Stop Time Status Last Admin Dose Admin Acetaminophen (Tylenol) 650 mg Q4H PRN ORAL FEVER 02/25/17 15:15 03/27/17 15:14 Albuterol/ Ipratropium (DuoNeb 0.5-3(2.5)mg/3ml) 3 ml Q4HR PRN HHN SHORTNESS OF BREATH 02/25/17 15:15 03/02/17 15:14 Allopurinol (Allopurinol) 300 mg DAILY ORAL 02/26/17 09:00 03/26/17 12:59 Aspirin (Ecotrin) 81 mg DAILY ORAL 02/26/17 09:00 03/19/17 08:59 Bisacodyl (Dulcolax) 10 mg DAILYPRN PRN RECTAL Constipation Third Line Agent 02/25/17 15:15 03/27/17 15:14 Carvedilol (Coreg) 6.25 mg Q12HR ORAL 02/25/17 21:00 03/25/17 20:59 Dextrose (Dextrose 50%) STAT PRN IV Hypoglycemia 02/25/17 15:15 03/17/17 15:14 Escitalopram Oxalate (Lexapro) 10 mg DAILY ORAL 02/26/17 09:00 03/20/17 08:59 Haloperidol Lactate (Haldol) 2 mg Q4H PRN IM Agitation 02/25/17 15:15 03/27/17 15:14 Heparin Sodium (Porcine) (Heparin 5000 units/ml) 5,000 units EVERY 12 HOURS SUBQ 02/25/17 21:00 03/18/17 08:59 Hydralazine HCl (Apresoline) 25 mg Q4H PRN ORAL SBP > 160mmHg 02/25/17 15:15 03/27/17 15:14 02/25/17 17:27 Hydromorphone HCl (Dilaudid) 0.5 mg Q4H PRN IVP PAIN 4-10 02/25/17 15:15 03/04/17 15:14 Levalbuterol HCl (Xopenex) 1.25 mg Q4H PRN HHN Bronchospasm 02/25/17 15:15 03/02/17 15:14 Lidocaine (Xylocaine 1% MPF 5ml) 10 ml Q4H PRN HHN cough 02/25/17 15:15 03/19/17 15:14 Lisinopril (Prinivil) 20 mg BID ORAL 02/25/17 18:00 03/27/17 17:59 02/25/17 17:27 Meropenem 1 gm/ Sodium Chloride 110 ml @ 220 mls/hr Q12HR IVPB 02/25/17 21:00 02/28/17 20:59 Ondansetron HCl (Zofran) 4 mg Q6H PRN IVP Nausea & Vomiting 02/25/17 15:15 03/17/17 15:14 Polyethylene Glycol (Miralax) 17 gm DAILYPRN PRN ORAL Constipation First line agent 02/25/17 15:15 03/17/17 15:14 Pravastatin Sodium (Pravachol) 20 mg BEDTIME ORAL 02/25/17 21:00 03/18/17 20:59 Prednisone (predniSONE) 40 mg DAILY ORAL 02/26/17 09:00 03/28/17 08:59 Pregabalin (Lyrica) 150 mg THREE TIMES A DAY ORAL 02/25/17 18:00 03/18/17 12:59 02/25/17 17:26 Promethazine HCl/ Codeine (Phenergan with Codeine) 5 ml Q4H PRN ORAL UNRELIEVED COUGH 02/25/17 15:15 03/18/17 15:14 Ranitidine HCl (Zantac) 150 mg QPM ORAL 02/25/17 16:30 03/27/17 16:29 02/25/17 17:27 Vancomycin HCl (Vanco rx to dose) 1 ea DAILY PRN MISC PER RX PROTOCOL 02/26/17 09:00 03/18/17 07:44 Vancomycin/Sodium Chloride 250 ml @ 166.667 mls/hr Q24H IVPB 02/25/17 21:00 02/28/17 20:59 MENDOZA PANTOJA Feb 25, 2017 20:22
[2017-02-25] MEDS ORDERED: Vancomycin 750mg/NS 250ml 250 ML IVPB SCH (21:00)
[2017-02-25] MEDS ORDERED: Heparin 5000 units/ml inj SUBQ SCH (21:00)
[2017-02-25] MEDS: Haloperidol 5mg/ml Inj IM PRN (22:38)
--- NOTE | 2017-02-25 23:05 | General Progress Note ---
Assessment/Plan Assessment/Plan anxiety d/o' -cont current meds -provided ro/st Subjective Date patient seen: Feb 25, 2017 Allergies: Coded Allergies: TETRACYCLINE (Unverified Allergy, Unknown, 07/24/14) Subjective the pt os doing well much improved/ Objective Last 24 Hour Vital Signs Date Time Temp Pulse Resp B/P (MAP) Pulse Ox O2 Delivery O2 Flow Rate FiO2 02/25/17 22:00 97 22 164/71 94 Non-Rebreather 100 02/25/17 21:45 98.4 02/25/17 21:00 96 22 152/71 95 Non-Rebreather 100 02/25/17 20:30 101 143/114 02/25/17 20:00 100 02/25/17 20:00 98.0 102 24 169/73 94 Non-Rebreather 100 02/25/17 19:02 89 20 Non-Rebreather 15.0 100 02/25/17 19:02 97 Non-Rebreather 15.0 100 02/25/17 19:02 Non-Rebreather 15.0 100 02/25/17 19:00 98 23 143/114 92 Non-Rebreather 100 02/25/17 18:00 88 20 152/73 97 Non-Rebreather 100 02/25/17 17:27 181/85 02/25/17 17:27 164/72 02/25/17 17:00 93 23 164/72 95 Non-Rebreather 100 02/25/17 16:00 98.6 100 24 158/107 93 Non-Rebreather 100 02/25/17 16:00 99 02/25/17 15:00 100 23 164/94 93 Non-Rebreather 100 02/25/17 14:00 96 24 161/78 93 Non-Rebreather 100 02/25/17 13:00 93 21 146/67 95 Non-Rebreather 100 02/25/17 12:01 98.2 95 18 146/83 97 Non-Rebreather 100 02/25/17 12:00 95 02/25/17 08:49 153/89 02/25/17 08:49 95 153/89 02/25/17 08:00 97.3 99 19 153/89 95 Non-Rebreather 100 02/25/17 08:00 95 02/25/17 04:00 98.8 89 20 157/87 96 Non-Rebreather 15.0 02/25/17 03:36 81 02/25/17 00:00 86 02/25/17 00:00 98.0 85 16 100/61 92 Venturi Mask Intake and Output 02/25/17 02/26/17 19:00 07:00 Intake Total 270 ml Output Total 1115 ml 150 ml Balance -845 ml -150 ml Intake Oral 160 ml IV Total 110 ml Output Urine Total 1115 ml 150 ml # Bowel Movements 2 Laboratory Tests 02/25/17 04:00: Urine Eosinophils None seen 02/25/17 04:20: White Blood Count 8.5, Red Blood Count 3.00L, Hemoglobin 10.3L, Hematocrit 30.9L , Mean Corpuscular Volume 103H, Mean Corpuscular Hemoglobin 34.2H, Mean Corpuscular Hemoglobin Concent 33.2, Red Cell Distribution Width 12.1, Platelet Count 289, Mean Platelet Volume 7.6, Neutrophils (%) (Auto) 69.6, Lymphocytes (% ) (Auto) 21.3, Monocytes (%) (Auto) 8.1, Eosinophils (%) (Auto) 0.7, Basophils ( %) (Auto) 0.3, Prothrombin Time 10.8, Prothromb Time International Ratio 1.0, Activated Partial Thromboplast Time 31, Sodium Level 144, Potassium Level 4.2, Chloride Level 104, Carbon Dioxide Level 35H, Anion Gap 5, Blood Urea Nitrogen 37H, Creatinine 0.7, Estimat Glomerular Filtration Rate , Glucose Level 106, Uric Acid 6.9, Calcium Level 9.6, Phosphorus Level 2.3L, Magnesium Level 2.0, Total Bilirubin 0.5, Aspartate Amino Transf (AST/SGOT) 21, Alanine Aminotransferase (ALT/SGPT) 14, Alkaline Phosphatase 51, C-Reactive Protein, Quantitative 9.8H, Pro-B-Type Natriuretic Peptide 1824H, Total Protein 6.6, Albumin 2.3L, Globulin 4.3, Albumin/Globulin Ratio 0.5L Height (Feet): 5 Height (Inches): 7.00 Weight (Pounds): 123 Wan Stern M.D. Feb 25, 2017 23:05
[2017-02-26] VITALS (39 sets, daily range): BP systolic 89–194; BP diastolic 42–118
[2017-02-26] MEDS: HydrALAZINE 25mg tab ORAL PRN (00:09)
[2017-02-26 06:14] LABS: BASOPHILS % (AUTO) 0.4 % (0.0-2.0); HEMATOCRIT 32.7 % (37.0-47.0); HEMOGLOBIN 10.6 G/DL (12.0-16.0); LYMPHOCYTES % (AUTO) 14.5 % (20.0-45.0); MEAN CORPUSCULAR VOLUME 103 FL (80-99); MONOCYTES % (AUTO) 7.3 % (1.0-10.0); NEUTROPHILS % (AUTO) 75.8 % (45.0-75.0); PLATELET COUNT 293 K/UL (150-450); RED BLOOD COUNT 3.17 M/UL (4.20-5.40); RED CELL DISTRIBUTION WIDTH 11.8 % (11.6-14.8)
[2017-02-26 06:27] LABS: PHOSPHORUS 1.9 MG/DL (2.5-4.9)
[2017-02-26 06:32] LABS: ALANINE AMINOTRANSFERASE 18 U/L (12-78); ALBUMIN 2.3 G/DL (3.4-5.0); ALBUMIN/GLOBULIN RATIO 0.7 (1.0-2.7); ALKALINE PHOSPHATASE 49 U/L (46-116); ANION GAP 5 mmol/L (5-15); ASPARTATE AMINO TRANSFERASE 31 U/L (15-37); BILIRUBIN,TOTAL 0.6 MG/DL (0.2-1.0); BLOOD UREA NITROGEN 25 mg/dL (7-18); CALCIUM 9.3 MG/DL (8.5-10.1); CARBON DIOXIDE 37 MMOL/L (21-32); CHLORIDE 101 MMOL/L (98-107); CREATININE 0.5 MG/DL (0.55-1.30); POTASSIUM 4.4 MMOL/L (3.5-5.1); SODIUM 143 MMOL/L (136-145)
[2017-02-26] MEDS: Meropenem 1 GM in NS 110 ML IVPB SCH ×2 (08:24→21:21)
[2017-02-26] MEDS: Lisinopril 20mg tab ORAL SCH ×2 (09:00→18:00)
[2017-02-26] MEDS: Aspirin EC 81mg tab ORAL SCH (09:00)
[2017-02-26] MEDS: Lyrica 75mg cap ORAL SCH ×3 (09:00→18:00)
[2017-02-26] MEDS: Carvedilol 6.25mg Tab ORAL SCH ×2 (09:00→21:20)
--- NOTE | 2017-02-26 10:12 | Pulmonolgy Critical Care Note ---
Critical Care - Asmt/Plan Problems: (1) Acute and chronic respiratory failure ([id number]) (2) COPD (chronic obstructive pulmonary disease) (3) Right middle lobe pneumonia (4) Collapse of left lung Respiratory: monitor respiratory rate, adjust FIO2, CXR, other - for intubation and bronch today Cardiac: continue to monitor HR/BP Renal: F/U I&O, check electrolytes Infectious Disease: check cultures, continue antibiotics Gastrointestinal: hold feedings Endocrine: monitor blood sugar, continue sliding scale insulin Hematologic: transfuse if hgb<8.5 Neurologic: PRN Ativan, PRN Morphine, keep patient comfortable Prophylaxis: Protonix, Heparin Notes Reviewed: air shovel operator, cardio, renal Discussed with: nurses, consultants, skilled nursing case managercorporate relations manager - Objective Last 24 Hour Vital Signs Date Time Temp Pulse Resp B/P (MAP) Pulse Ox O2 Delivery O2 Flow Rate FiO2 02/26/17 09:00 102 22 165/78 97 Non-Rebreather 100 02/26/17 09:00 165/78 02/26/17 09:00 102 165/78 02/26/17 08:00 105 02/26/17 08:00 98.6 98 25 146/62 97 Non-Rebreather 100 02/26/17 07:00 109 23 185/110 97 Non-Rebreather 100 02/26/17 06:45 Non-Rebreather 15.0 100 02/26/17 06:43 95 Non-Rebreather 15.0 100 02/26/17 06:42 116 29 Non-Rebreather 15.0 100 02/26/17 06:00 102 23 138/73 97 Non-Rebreather 100 02/26/17 05:44 117 26 94 Facial 100 02/26/17 05:00 116 23 155/76 93 Non-Rebreather 100 02/26/17 04:00 97.8 103 23 164/118 95 Non-Rebreather 100 02/26/17 04:00 102 02/26/17 03:00 103 23 171/99 95 Non-Rebreather 100 02/26/17 02:00 103 18 194/77 95 Non-Rebreather 100 02/26/17 01:00 98.1 100 21 183/76 96 Non-Rebreather 100 02/26/17 00:09 171/88 02/26/17 00:00 98.1 99 24 171/88 94 Non-Rebreather 100 02/26/17 00:00 96 02/25/17 23:00 95 25 169/83 95 Non-Rebreather 100 02/25/17 22:00 97 22 164/71 94 Non-Rebreather 100 02/25/17 21:45 98.4 02/25/17 21:00 96 22 152/71 95 Non-Rebreather 100 02/25/17 20:30 101 143/114 02/25/17 20:00 100 02/25/17 20:00 98.0 102 24 169/73 94 Non-Rebreather 100 02/25/17 19:02 89 20 Non-Rebreather 15.0 100 02/25/17 19:02 97 Non-Rebreather 15.0 100 02/25/17 19:02 Non-Rebreather 15.0 100 02/25/17 19:00 98 23 143/114 92 Non-Rebreather 100 02/25/17 18:00 88 20 152/73 97 Non-Rebreather 100 02/25/17 17:27 181/85 02/25/17 17:27 164/72 02/25/17 17:00 93 23 164/72 95 Non-Rebreather 100 02/25/17 16:00 98.6 100 24 158/107 93 Non-Rebreather 100 02/25/17 16:00 99 02/25/17 15:00 100 23 164/94 93 Non-Rebreather 100 02/25/17 14:00 96 24 161/78 93 Non-Rebreather 100 02/25/17 13:00 93 21 146/67 95 Non-Rebreather 100 02/25/17 12:01 98.2 95 18 146/83 97 Non-Rebreather 100 02/25/17 12:00 95 Status: awake Condition: critical HEENT: atraumatic Lungs: clear Heart: HR/BP stable, HR/BP unstable Abdomen: soft, active bowel sounds, feeding tube Extremities: no C/C/E, edema Decubiti: stage Micro: Microbiology Date/Time Source Procedure Growth Status 02/24/17 01:30 Sputum Induced Gram Stain - Final Complete 02/24/17 01:30 Sputum Induced Sputum Culture - Final NO GROWTH AFTER 48 HOURS Complete Accucheck: 124 Critical Care - Subjective ROS Limited/Unobtainable: No ICU Day: 2 Intubation Day: no new change Condition: critical EKG Rhythm: Sinus Rhythm FI02: 100 Vent Support Mode: BiLevel Sputum Amount: None Fluids: kvo Tube Feeding Amount: 0 I&O: Intake and Output 02/26/17 02/27/17 19:00 07:00 Output Total 280 ml Balance -280 ml Output Urine Total 280 ml CXR: no changes Labs: Laboratory Tests Test 02/26/17 04:00 02/26/17 05:10 02/26/17 08:10 Urine Eosinophils None seen White Blood Count 11.0 K/UL (4.8-10.8) H Red Blood Count 3.17 M/UL (4.20-5.40) L Hemoglobin 10.6 G/DL (12.0-16.0) L Hematocrit 32.7 % (37.0-47.0) L Mean Corpuscular Volume 103 FL (80-99) H Mean Corpuscular Hemoglobin 33.3 PG (27.0-31.0) H Mean Corpuscular Hemoglobin Concent 32.3 G/DL (32.0-36.0) Red Cell Distribution Width 11.8 % (11.6-14.8) Platelet Count 293 K/UL (150-450) Mean Platelet Volume 7.0 FL (6.5-10.1) Neutrophils (%) (Auto) 75.8 % (45.0-75.0) H Lymphocytes (%) (Auto) 14.5 % (20.0-45.0) L Monocytes (%) (Auto) 7.3 % (1.0-10.0) Eosinophils (%) (Auto) 2.0 % (0.0-3.0) Basophils (%) (Auto) 0.4 % (0.0-2.0) Sodium Level 143 MMOL/L (136-145) Potassium Level 4.4 MMOL/L (3.5-5.1) Chloride Level 101 MMOL/L (98-107) Carbon Dioxide Level 37 MMOL/L (21-32) H Anion Gap 5 mmol/L (5-15) Blood Urea Nitrogen 25 mg/dL (7-18) H Creatinine 0.5 MG/DL (0.55-1.30) L Estimat Glomerular Filtration Rate mL/min (>60) Glucose Level 92 MG/DL (74-106) Uric Acid 4.3 MG/DL (2.6-7.2) Calcium Level 9.3 MG/DL (8.5-10.1) Phosphorus Level 1.9 MG/DL (2.5-4.9) L Magnesium Level 1.6 MG/DL (1.8-2.4) L Total Bilirubin 0.6 MG/DL (0.2-1.0) Aspartate Amino Transf (AST/SGOT) 31 U/L (15-37) Alanine Aminotransferase (ALT/SGPT) 18 U/L (12-78) Alkaline Phosphatase 49 U/L (46-116) C-Reactive Protein, Quantitative 8.2 mg/dL (0.00-0.90) H Pro-B-Type Natriuretic Peptide 4572 pg/mL (0-125) H Total Protein 5.7 G/DL (6.4-8.2) L Albumin 2.3 G/DL (3.4-5.0) L Globulin 3.4 g/dL Albumin/Globulin Ratio 0.7 (1.0-2.7) L Arterial Blood pH 7.480 (7.350-7.450) Arterial Blood Partial Pressure CO2 47.2 mmHg (35.0-45.0) H Arterial Blood Partial Pressure O2 108.2 mmHg (75.0-100.0) H Arterial Blood HCO3 34.4 mmol/L (22.0-26.0) H Arterial Blood Oxygen Saturation 98.5 % (92.0-98.0) H Arterial Blood Base Excess 9.8 Scooby Test Positive TWIN FONTANEZ Feb 26, 2017 10:12
[2017-02-26] MEDS ORDERED: Propofol 200mg/20ml IV ONE (10:15)
[2017-02-26] MEDS: Propofol 200mg/20ml IV ONE ×2 (10:15→11:17)
[2017-02-26] MEDS ORDERED: Sodium Phosphate 30 MM in NS 275 ML IVPB ONE (10:16)
--- NOTE | 2017-02-26 10:51 | General Progress Note ---
Progress Note Progress Note Procedure note Procedure: Endotracheal intubaton consent: by patient indication: Left lung collapse Anesthesia: Propofol 10 cc. Vocal cord were visualized and an ET tube of size 8 was introduced through ET tube. CXR ordered TWIN FONTANEZ Feb 26, 2017 10:51
--- NOTE | 2017-02-26 10:53 | General Progress Note ---
Progress Note Progress Note Procedure note Procedure: Bronchoscopy consent: by patient indication: Left lung collapse An Olympus bronchoscope was introduced through ET tube. Large amounts of brownish thick secretions were suctioned from trachea and left main bronchus. All segments were visualized. Large amount of secretions were suctioned from the all left segments. Right main bronchus and segments were visualized which were clean. Pt tolerated the procudure very well. TWIN FONTANEZ Feb 26, 2017 10:53
[2017-02-26] MEDS ORDERED: Morphine Sulfate 4mg/ml Inj IVP PRN (11:00)
[2017-02-26] MEDS ORDERED: fentaNYL Citrate 2,500 MCG in NS 200 ML IV SCH (11:00)
--- NOTE | 2017-02-26 11:48 | Diagnostic Imaging Report ---
Indication: Dyspnea Comparison: None A single view chest radiograph was obtained. Findings: Patchy infiltrates again demonstrated bilaterally without significant change. Endotracheal tube is present. The tip is in the left mainstem bronchus and should be pulled up about 2-3 cm. Heart size is stable. Nasogastric tube is in good position. Impression: Endotracheal tube is low and should be pulled up 2-3 CM. Nasogastric tube in good position. No change otherwise
[2017-02-26] MEDS: LORazepam Inj 2mg/ml 1ml IV PRN (11:54)
--- NOTE | 2017-02-26 12:24 | Diagnostic Imaging Report ---
Indication: Endotracheal tube repositioned Comparison: Earlier today A single view chest radiograph was obtained. Findings: ET tube is 2 cm above the adelita in good position. No change otherwise. Impression: Endotracheal tube satisfactory in position
[2017-02-26] MEDS: fentaNYL Citrate 1000 MCG in NS 100ml IV SCH (12:50)
[2017-02-26] MEDS ORDERED: Tubing IV Secondary IV ONE (16:17)
--- NOTE | 2017-02-26 16:34 | General Progress Note ---
Assessment/Plan Status: stable - from renal stand Status Narrative acute respiratory failure requiring intubation and mechanical vent Assessment/Plan Status: Acute renal failure- etiology? 1900 cc urine out after insertion of shi--JOSE MIGUEL: Moderate right hydronephrosis. Acute on Chronic respiratory failure- HTN High Cholestrol Pneumonia COPD , exac. Diastolic CHF, Mod MR h/o C dif colitis h/o Breast Ca Anemia Pulm HTN Moderate Plan: pulm support adjust BP meds- Change steroids to po and aim to taper K supplement- as needed Allopurinol continue Shi- Avoid nephrotoxics JOSE MIGUEL: Moderate right hydronephrosis. Subjective ROS Limited/Unobtainable: Yes Allergies: Coded Allergies: TETRACYCLINE (Unverified Allergy, Unknown, 07/24/14) Objective Last 24 Hour Vital Signs Date Time Temp Pulse Resp B/P (MAP) Pulse Ox O2 Delivery O2 Flow Rate FiO2 02/26/17 16:30 101.2 99 19 118/59 99 Mechanical Ventilator 50 02/26/17 16:00 101 19 125/59 100 Mechanical Ventilator 50 02/26/17 16:00 104 02/26/17 16:00 50 02/26/17 15:41 50 02/26/17 15:30 100 22 124/66 100 Mechanical Ventilator 75 02/26/17 15:20 101 20 75 02/26/17 15:00 97 22 133/66 100 Mechanical Ventilator 75 02/26/17 14:30 95 22 124/63 100 Mechanical Ventilator 75 02/26/17 14:00 100 22 115/56 100 Mechanical Ventilator 75 02/26/17 13:30 112 19 118/74 98 Mechanical Ventilator 75 02/26/17 13:20 97 18 116/61 98 Mechanical Ventilator 75 02/26/17 13:20 75 02/26/17 13:20 75 02/26/17 13:15 96 18 121/63 97 Mechanical Ventilator 100 02/26/17 13:10 97 18 127/78 97 Mechanical Ventilator 100 02/26/17 13:10 100 16 100 02/26/17 13:05 98 18 147/68 97 Mechanical Ventilator 100 02/26/17 13:00 20 02/26/17 13:00 99 18 119/72 100 Mechanical Ventilator 100 02/26/17 12:50 17 02/26/17 12:00 100 02/26/17 12:00 96 02/26/17 12:00 98.7 97 17 111/56 98 Mechanical Ventilator 100 02/26/17 11:00 94 20 127/63 97 Mechanical Ventilator 100 02/26/17 10:45 97 16 100 02/26/17 10:45 100 02/26/17 10:15 20 02/26/17 10:00 99 22 117/58 97 Non-Rebreather 100 02/26/17 09:00 102 22 165/78 97 Non-Rebreather 100 02/26/17 09:00 165/78 02/26/17 09:00 102 165/78 02/26/17 08:00 105 02/26/17 08:00 98.6 98 25 146/62 97 Non-Rebreather 100 02/26/17 07:00 109 23 185/110 97 Non-Rebreather 100 02/26/17 06:45 Non-Rebreather 15.0 100 02/26/17 06:43 95 Non-Rebreather 15.0 100 02/26/17 06:42 116 29 Non-Rebreather 15.0 100 02/26/17 06:00 102 23 138/73 97 Non-Rebreather 100 02/26/17 05:44 117 26 94 Facial 100 02/26/17 05:00 116 23 155/76 93 Non-Rebreather 100 02/26/17 04:00 97.8 103 23 164/118 95 Non-Rebreather 100 02/26/17 04:00 102 02/26/17 03:00 103 23 171/99 95 Non-Rebreather 100 02/26/17 02:00 103 18 194/77 95 Non-Rebreather 100 02/26/17 01:00 98.1 100 21 183/76 96 Non-Rebreather 100 02/26/17 00:09 171/88 02/26/17 00:00 98.1 99 24 171/88 94 Non-Rebreather 100 02/26/17 00:00 96 02/25/17 23:00 95 25 169/83 95 Non-Rebreather 100 02/25/17 22:00 97 22 164/71 94 Non-Rebreather 100 02/25/17 21:45 98.4 02/25/17 21:00 96 22 152/71 95 Non-Rebreather 100 02/25/17 20:30 101 143/114 10/18/17 20:00 100 02/25/17 20:00 98.0 102 24 169/73 94 Non-Rebreather 100 02/25/17 19:02 89 20 Non-Rebreather 15.0 100 02/25/17 19:02 97 Non-Rebreather 15.0 100 02/25/17 19:02 Non-Rebreather 15.0 100 02/25/17 19:00 98 23 143/114 92 Non-Rebreather 100 02/25/17 18:00 88 20 152/73 97 Non-Rebreather 100 02/25/17 17:27 181/85 02/25/17 17:27 164/72 02/25/17 17:00 93 23 164/72 95 Non-Rebreather 100 Intake and Output 02/26/17 02/27/17 19:00 07:00 Intake Total 315.6 ml Output Total 950 ml Balance -634.4 ml IV Total 315.6 ml Tube Feeding 0 ml Output Urine Total 950 ml # Bowel Movements 2 Laboratory Tests 02/26/17 04:00: Urine Eosinophils None seen 02/26/17 05:10: White Blood Count 11.0H, Red Blood Count 3.17L, Hemoglobin 10.6L, Hematocrit 32.7L, Mean Corpuscular Volume 103H, Mean Corpuscular Hemoglobin 33.3H, Mean Corpuscular Hemoglobin Concent 32.3, Red Cell Distribution Width 11.8, Platelet Count 293, Mean Platelet Volume 7.0, Neutrophils (%) (Auto) 75.8H, Lymphocytes ( %) (Auto) 14.5L, Monocytes (%) (Auto) 7.3, Eosinophils (%) (Auto) 2.0, Basophils (%) (Auto) 0.4, Sodium Level 143, Potassium Level 4.4, Chloride Level 101, Carbon Dioxide Level 37H, Anion Gap 5, Blood Urea Nitrogen 25H, Creatinine 0.5L, Estimat Glomerular Filtration Rate , Glucose Level 92, Uric Acid 4.3, Calcium Level 9.3, Phosphorus Level 1.9L, Magnesium Level 1.6L, Total Bilirubin 0.6, Aspartate Amino Transf (AST/SGOT) 31, Alanine Aminotransferase (ALT/SGPT) 18, Alkaline Phosphatase 49, C-Reactive Protein, Quantitative 8.2H, Pro-B-Type Natriuretic Peptide 4572H, Total Protein 5.7L, Albumin 2.3L, Globulin 3.4, Albumin/Globulin Ratio 0.7L 02/26/17 08:10: Arterial Blood pH 7.480H, Arterial Blood Partial Pressure CO2 47.2H, Arterial Blood Partial Pressure O2 108.2H, Arterial Blood HCO3 34.4H, Arterial Blood Oxygen Saturation 98.5H, Arterial Blood Base Excess 9.8, Scooby Test Positive 02/26/17 15:30: Arterial Blood pH 7.570*H, Arterial Blood Partial Pressure CO2 34.8L, Arterial Blood Partial Pressure O2 181.4H, Arterial Blood HCO3 31.7H, Arterial Blood Oxygen Saturation 99.8H, Arterial Blood Base Excess 9.3, Scooby Test Positive Height (Feet): 5 Height (Inches): 7.00 Weight (Pounds): 118 General Appearance: other - intubated on vent Cardiovascular: tachycardia Respiratory/Chest: decreased breath sounds, rhonchi - bilaterally Abdomen: soft Objective no edema GENARO DUARTE Feb 26, 2017 16:34
--- NOTE | 2017-02-26 18:22 | Internal Med Progress Note ---
Subjective Date of Service: Feb 26, 2017 Physician Name DianeZeb Attending Physician Jun Cedillo MD Current Medications Medications (Trade) Dose Ordered Sig/Wilner Route PRN Reason Start Time Stop Time Status Last Admin Dose Admin Acetaminophen (Tylenol) 650 mg Q4H PRN ORAL FEVER 02/25/17 15:15 03/27/17 15:14 02/26/17 16:37 Albuterol/ Ipratropium (DuoNeb 0.5-3(2.5)mg/3ml) 3 ml Q4HR PRN HHN SHORTNESS OF BREATH 02/25/17 15:15 03/02/17 15:14 Allopurinol (Allopurinol) 300 mg DAILY ORAL 02/26/17 09:00 03/26/17 12:59 Aspirin (Ecotrin) 81 mg DAILY ORAL 02/26/17 09:00 03/19/17 08:59 Bisacodyl (Dulcolax) 10 mg DAILYPRN PRN RECTAL Constipation Third Line Agent 02/25/17 15:15 03/27/17 15:14 Carvedilol (Coreg) 6.25 mg Q12HR ORAL 02/25/17 21:00 03/25/17 20:59 02/25/17 20:30 Dextrose (Dextrose 50%) STAT PRN IV Hypoglycemia 02/25/17 15:15 03/17/17 15:14 Escitalopram Oxalate (Lexapro) 10 mg DAILY ORAL 02/26/17 09:00 03/20/17 08:59 Fentanyl Citrate 1000 mcg/Sodium Chloride 100 ml @ 0 mls/hr Q24H IV 02/26/17 12:00 03/05/17 11:59 02/26/17 12:50 Haloperidol Lactate (Haldol) 2 mg Q4H PRN IM Agitation 02/25/17 15:15 03/27/17 15:14 02/25/17 22:38 Hydralazine HCl (Apresoline) 25 mg Q4H PRN ORAL SBP > 160mmHg 02/25/17 15:15 03/27/17 15:14 02/26/17 00:09 Levalbuterol HCl (Xopenex) 1.25 mg Q4H PRN HHN Bronchospasm 02/25/17 15:15 03/02/17 15:14 Lidocaine (Xylocaine 1% MPF 5ml) 10 ml Q4H PRN HHN cough 02/25/17 15:15 03/19/17 15:14 Lisinopril (Prinivil) 20 mg BID ORAL 02/25/17 18:00 03/27/17 17:59 02/25/17 17:27 Lorazepam (Ativan 2mg/ml 1ml) 2 mg Q4H PRN IV For Anxiety 02/26/17 11:00 03/05/17 10:59 02/26/17 11:54 Meropenem 1 gm/ Sodium Chloride 110 ml @ 220 mls/hr Q12HR IVPB 02/25/17 21:00 02/28/17 20:59 02/26/17 08:24 Morphine Sulfate (Morphine Sulfate) 4 mg Q4H PRN IVP Breakthrough Pain 02/26/17 11:00 03/05/17 10:59 Ondansetron HCl (Zofran) 4 mg Q6H PRN IVP Nausea & Vomiting 02/25/17 15:15 03/17/17 15:14 Pantoprazole (Protonix) 40 mg DAILY IV 02/27/17 09:00 03/29/17 08:59 Polyethylene Glycol (Miralax) 17 gm DAILYPRN PRN ORAL Constipation First line agent 02/25/17 15:15 03/17/17 15:14 Pravastatin Sodium (Pravachol) 20 mg BEDTIME ORAL 02/25/17 21:00 03/18/17 20:59 02/25/17 20:27 Prednisone (predniSONE) 40 mg DAILY ORAL 02/26/17 09:00 03/28/17 08:59 Pregabalin (Lyrica) 150 mg THREE TIMES A DAY ORAL 02/25/17 18:00 03/18/17 12:59 02/25/17 17:26 Promethazine HCl/ Codeine (Phenergan with Codeine) 5 ml Q4H PRN ORAL UNRELIEVED COUGH 02/25/17 15:15 03/18/17 15:14 Ranitidine HCl (Zantac) 150 mg QPM ORAL 02/25/17 16:30 03/27/17 16:29 02/26/17 16:37 Vancomycin HCl (Vanco rx to dose) 1 ea DAILY PRN MISC PER RX PROTOCOL 02/26/17 09:00 03/18/17 07:44 Vancomycin/Sodium Chloride 250 ml @ 166.667 mls/hr Q24H IVPB 02/25/17 21:00 02/28/17 20:59 02/25/17 21:00 Allergies: Coded Allergies: TETRACYCLINE (Unverified Allergy, Unknown, 07/24/14) ROS Limited/Unobtainable: Yes Subjective 76 YO F admitted with shortness of breath. Now pneumonia. Cover for Int Med- Dr Cedillo. ICU. CT chest=occlusion left mainstem bronchus-Intubated 02/25/17. Objective Last Vital Signs Date Time Temp Pulse Resp B/P (MAP) Pulse Ox O2 Delivery O2 Flow Rate FiO2 02/26/17 17:30 83 16 100/43 97 Mechanical Ventilator 50 02/26/17 16:30 101.2 02/26/17 06:45 15.0 Laboratory Tests Test 02/26/17 04:00 02/26/17 05:10 02/26/17 08:10 02/26/17 15:30 Urine Eosinophils None seen White Blood Count 11.0 K/UL (4.8-10.8) H Red Blood Count 3.17 M/UL (4.20-5.40) L Hemoglobin 10.6 G/DL (12.0-16.0) L Hematocrit 32.7 % (37.0-47.0) L Mean Corpuscular Volume 103 FL (80-99) H Mean Corpuscular Hemoglobin 33.3 PG (27.0-31.0) H Mean Corpuscular Hemoglobin Concent 32.3 G/DL (32.0-36.0) Red Cell Distribution Width 11.8 % (11.6-14.8) Platelet Count 293 K/UL (150-450) Mean Platelet Volume 7.0 FL (6.5-10.1) Neutrophils (%) (Auto) 75.8 % (45.0-75.0) H Lymphocytes (%) (Auto) 14.5 % (20.0-45.0) L Monocytes (%) (Auto) 7.3 % (1.0-10.0) Eosinophils (%) (Auto) 2.0 % (0.0-3.0) Basophils (%) (Auto) 0.4 % (0.0-2.0) Sodium Level 143 MMOL/L (136-145) Potassium Level 4.4 MMOL/L (3.5-5.1) Chloride Level 101 MMOL/L (98-107) Carbon Dioxide Level 37 MMOL/L (21-32) H Anion Gap 5 mmol/L (5-15) Blood Urea Nitrogen 25 mg/dL (7-18) H Creatinine 0.5 MG/DL (0.55-1.30) L Estimat Glomerular Filtration Rate mL/min (>60) Glucose Level 92 MG/DL (74-106) Uric Acid 4.3 MG/DL (2.6-7.2) Calcium Level 9.3 MG/DL (8.5-10.1) Phosphorus Level 1.9 MG/DL (2.5-4.9) L Magnesium Level 1.6 MG/DL (1.8-2.4) L Total Bilirubin 0.6 MG/DL (0.2-1.0) Aspartate Amino Transf (AST/SGOT) 31 U/L (15-37) Alanine Aminotransferase (ALT/SGPT) 18 U/L (12-78) Alkaline Phosphatase 49 U/L (46-116) C-Reactive Protein, Quantitative 8.2 mg/dL (0.00-0.90) H Pro-B-Type Natriuretic Peptide 4572 pg/mL (0-125) H Total Protein 5.7 G/DL (6.4-8.2) L Albumin 2.3 G/DL (3.4-5.0) L Globulin 3.4 g/dL Albumin/Globulin Ratio 0.7 (1.0-2.7) L Arterial Blood pH 7.480 (7.350-7.450) 7.570 (7.350-7.450) Arterial Blood Partial Pressure CO2 47.2 mmHg (35.0-45.0) H 34.8 mmHg (35.0-45.0) L Arterial Blood Partial Pressure O2 108.2 mmHg (75.0-100.0) H 181.4 mmHg (75.0-100.0) H Arterial Blood HCO3 34.4 mmol/L (22.0-26.0) H 31.7 mmol/L (22.0-26.0) H Arterial Blood Oxygen Saturation 98.5 % (92.0-98.0) H 99.8 % (92.0-98.0) H Arterial Blood Base Excess 9.8 9.3 Scooby Test Positive Positive Microbiology Date/Time Source Procedure Growth Status 02/24/17 01:30 Sputum Induced Gram Stain - Final Complete 02/24/17 01:30 Sputum Induced Sputum Culture - Final NO GROWTH AFTER 48 HOURS Complete Intake and Output 02/26/17 02/27/17 19:00 07:00 Intake Total 268.1 ml Output Total 1030 ml Balance -761.9 ml IV Total 268.1 ml Tube Feeding 0 ml Output Urine Total 1030 ml # Bowel Movements 3 Objective General Appearance: WD/WN, no apparent distress, alert EENT: PERRL/EOMI, normal ENT inspection, TMs normal Neck: non-tender, normal alignment, supple, normal inspection Cardiovascular: normal peripheral pulses, normal rate, regular rhythm, no gallop/murmur, no JVD Respiratory/Chest: Mech Vent; chest wall non-tender, respiratory distress, decreased breath sounds, crackles/rales, rhonchi - bilaterally, expiratory wheezing Abdomen: normal bowel sounds, non tender, soft, no organomegaly, no mass Extremities: normal range of motion Neurologic: 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 (8) Pneumonia Assessment & Plan: Continue Meropenem and vanco. See ID and pulmonary notes. (9) COPD exacerbation Assessment & Plan: Continue IV solumedrol and xopenex/atrovent nebs. See pulmonary note. (10) Diastolic CHF Assessment & Plan: See cardiology note. 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 S/P intubation to aerate left lung-see pulmonary note. D/W pulmonary Dr Hernandez Status: not improved ZEB FUENTES Feb 26, 2017 18:22
--- NOTE | 2017-02-26 18:33 | Cardiology Progress Note ---
Assessment/Plan Assessment/Plan 1. Respiratory failure. 2. Chronic obstructive pulmonary disease exacerbation. 3. Questionable pneumonia. 4. History of mitral regurgitation of significant degree. 5. History of subdural hematomas and intracranial hemorrhage. 6. History of breast cancer. 7. Anemia. 8. History of Clostridium difficile colitis. 9. History of anxiety. 10. Sinus tachycardia secondary to above. 11. Htn 12. CHF acute diastolic 13. l m bronchus occlusion with debris 14. lung collapase 15 Hypotension vent spport remains in icu intubated labs reviewed s/p bronch today now hypotesive bolus of ivf pressor if not better tele sinus d/w rn mg supplement Subjective ROS Limited/Unobtainable: Yes Subjective on vent Objective Last 24 Hour Vital Signs Date Time Temp Pulse Resp B/P (MAP) Pulse Ox O2 Delivery O2 Flow Rate FiO2 02/26/17 18:00 18 02/26/17 18:00 100/43 02/26/17 17:30 83 16 100/43 97 Mechanical Ventilator 50 02/26/17 17:20 91 15 50 02/26/17 17:00 94 20 100/52 98 Mechanical Ventilator 50 02/26/17 17:00 20 02/26/17 16:30 101.2 99 19 118/59 99 Mechanical Ventilator 50 02/26/17 16:00 101 19 125/59 100 Mechanical Ventilator 50 02/26/17 16:00 104 02/26/17 16:00 20 02/26/17 16:00 50 02/26/17 15:41 50 02/26/17 15:30 100 22 124/66 100 Mechanical Ventilator 75 02/26/17 15:20 101 20 75 02/26/17 15:00 97 22 133/66 100 Mechanical Ventilator 75 02/26/17 15:00 16 02/26/17 14:30 95 22 124/63 100 Mechanical Ventilator 75 02/26/17 14:00 100 22 115/56 100 Mechanical Ventilator 75 02/26/17 14:00 18 02/26/17 13:30 112 19 118/74 98 Mechanical Ventilator 75 02/26/17 13:20 97 18 116/61 98 Mechanical Ventilator 75 02/26/17 13:20 75 02/26/17 13:20 75 02/26/17 13:15 96 18 121/63 97 Mechanical Ventilator 100 02/26/17 13:10 97 18 127/78 97 Mechanical Ventilator 100 10/19/17 13:10 100 16 100 02/26/17 13:05 98 18 147/68 97 Mechanical Ventilator 100 02/26/17 13:00 20 02/26/17 13:00 99 18 119/72 100 Mechanical Ventilator 100 02/26/17 12:50 17 02/26/17 12:00 100 02/26/17 12:00 96 02/26/17 12:00 98.7 97 17 111/56 98 Mechanical Ventilator 100 02/26/17 11:00 94 20 127/63 97 Mechanical Ventilator 100 02/26/17 10:45 97 16 100 02/26/17 10:45 100 02/26/17 10:15 20 02/26/17 10:00 99 22 117/58 97 Non-Rebreather 100 02/26/17 09:00 102 22 165/78 97 Non-Rebreather 100 02/26/17 09:00 165/78 02/26/17 09:00 102 165/78 02/26/17 08:00 105 02/26/17 08:00 98.6 98 25 146/62 97 Non-Rebreather 100 02/26/17 07:00 109 23 185/110 97 Non-Rebreather 100 02/26/17 06:45 Non-Rebreather 15.0 100 02/26/17 06:43 95 Non-Rebreather 15.0 100 02/26/17 06:42 116 29 Non-Rebreather 15.0 100 02/26/17 06:00 102 23 138/73 97 Non-Rebreather 100 02/26/17 05:44 117 26 94 Facial 100 02/26/17 05:00 116 23 155/76 93 Non-Rebreather 100 02/26/17 04:00 97.8 103 23 164/118 95 Non-Rebreather 100 02/26/17 04:00 102 02/26/17 03:00 103 23 171/99 95 Non-Rebreather 100 02/26/17 02:00 103 18 194/77 95 Non-Rebreather 100 02/26/17 01:00 98.1 100 21 183/76 96 Non-Rebreather 100 02/26/17 00:09 171/88 02/26/17 00:00 98.1 99 24 171/88 94 Non-Rebreather 100 02/26/17 00:00 96 02/25/17 23:00 95 25 169/83 95 Non-Rebreather 100 02/25/17 22:00 97 22 164/71 94 Non-Rebreather 100 02/25/17 21:45 98.4 02/25/17 21:00 96 22 152/71 95 Non-Rebreather 100 02/25/17 20:30 101 143/114 02/25/17 20:00 100 02/25/17 20:00 98.0 102 24 169/73 94 Non-Rebreather 100 02/25/17 19:02 89 20 Non-Rebreather 15.0 100 02/25/17 19:02 97 Non-Rebreather 15.0 100 02/25/17 19:02 Non-Rebreather 15.0 100 02/25/17 19:00 98 23 143/114 92 Non-Rebreather 100 General Appearance: no apparent distress, on vent Neck: supple Cardiovascular: normal rate, regular rhythm Respiratory/Chest: lungs clear - anterirorly Abdomen: normal bowel sounds, non tender, soft Extremities: no swelling Intake and Output 02/26/17 02/27/17 19:00 07:00 Intake Total 420.6 ml Output Total 1030 ml Balance -609.4 ml IV Total 420.6 ml Tube Feeding 0 ml Output Urine Total 1030 ml # Bowel Movements 3 Laboratory Tests Test 02/26/17 04:00 02/26/17 05:10 02/26/17 08:10 02/26/17 15:30 Urine Eosinophils None seen White Blood Count 11.0 K/UL (4.8-10.8) H Red Blood Count 3.17 M/UL (4.20-5.40) L Hemoglobin 10.6 G/DL (12.0-16.0) L Hematocrit 32.7 % (37.0-47.0) L Mean Corpuscular Volume 103 FL (80-99) H Mean Corpuscular Hemoglobin 33.3 PG (27.0-31.0) H Mean Corpuscular Hemoglobin Concent 32.3 G/DL (32.0-36.0) Red Cell Distribution Width 11.8 % (11.6-14.8) Platelet Count 293 K/UL (150-450) Mean Platelet Volume 7.0 FL (6.5-10.1) Neutrophils (%) (Auto) 75.8 % (45.0-75.0) H Lymphocytes (%) (Auto) 14.5 % (20.0-45.0) L Monocytes (%) (Auto) 7.3 % (1.0-10.0) Eosinophils (%) (Auto) 2.0 % (0.0-3.0) Basophils (%) (Auto) 0.4 % (0.0-2.0) Sodium Level 143 MMOL/L (136-145) Potassium Level 4.4 MMOL/L (3.5-5.1) Chloride Level 101 MMOL/L (98-107) Carbon Dioxide Level 37 MMOL/L (21-32) H Anion Gap 5 mmol/L (5-15) Blood Urea Nitrogen 25 mg/dL (7-18) H Creatinine 0.5 MG/DL (0.55-1.30) L Estimat Glomerular Filtration Rate mL/min (>60) Glucose Level 92 MG/DL (74-106) Uric Acid 4.3 MG/DL (2.6-7.2) Calcium Level 9.3 MG/DL (8.5-10.1) Phosphorus Level 1.9 MG/DL (2.5-4.9) L Magnesium Level 1.6 MG/DL (1.8-2.4) L Total Bilirubin 0.6 MG/DL (0.2-1.0) Aspartate Amino Transf (AST/SGOT) 31 U/L (15-37) Alanine Aminotransferase (ALT/SGPT) 18 U/L (12-78) Alkaline Phosphatase 49 U/L (46-116) C-Reactive Protein, Quantitative 8.2 mg/dL (0.00-0.90) H Pro-B-Type Natriuretic Peptide 4572 pg/mL (0-125) H Total Protein 5.7 G/DL (6.4-8.2) L Albumin 2.3 G/DL (3.4-5.0) L Globulin 3.4 g/dL Albumin/Globulin Ratio 0.7 (1.0-2.7) L Arterial Blood pH 7.480 (7.350-7.450) 7.570 (7.350-7.450) Arterial Blood Partial Pressure CO2 47.2 mmHg (35.0-45.0) H 34.8 mmHg (35.0-45.0) L Arterial Blood Partial Pressure O2 108.2 mmHg (75.0-100.0) H 181.4 mmHg (75.0-100.0) H Arterial Blood HCO3 34.4 mmol/L (22.0-26.0) H 31.7 mmol/L (22.0-26.0) H Arterial Blood Oxygen Saturation 98.5 % (92.0-98.0) H 99.8 % (92.0-98.0) H Arterial Blood Base Excess 9.8 9.3 Scooby Test Positive Positive Microbiology Date/Time Source Procedure Growth Status 02/24/17 01:30 Sputum Induced Gram Stain - Final Complete 02/24/17 01:30 Sputum Induced Sputum Culture - Final NO GROWTH AFTER 48 HOURS Complete JEFFERSON ROMEO Feb 26, 2017 18:33
[2017-02-26] MEDS ORDERED: NS 250 ML IVPB ONE (18:45)
--- NOTE | 2017-02-26 19:04 | Infectious Diseases Prog Note ---
Assessment/Plan Assessment/Plan Assessment: Acute on chronic hypoxic resp failure, - combination of COPD exacerbation and PNA, mucous plugging. Intubated 02/26 -venous duplex 02/16no DVT PNA; worsening- r/o MDRO, r/o fungal pneumonia. SGS(-), Cx NGTD - SP bronch 02/26: BAL pending - CT Chest 02/24: Near-complete occlusion of the left mainstem bronchus and proximal lobar bronchi, probably by debris. Extensive resultant atelectasis and consolidation of nearly the entire left lung. Less extensive consolidation within the right lung, nonspecific as regards etiology, likely secondary to pneumonia or edema -CXR 02/23: Better inspiration currently. Overall improved aeration of the right mid and lower lung, with decreased dense consolidation and is still fairly extensive parenchymal opacity. The right pleural space is clear. Large left pleural effusion is again demonstrated, and is increased from the prior exam. There is also increasing consolidation of the residual aerated lung in the left upper hemithorax. -negative: CrAg L pleural effusion r/o empyema Leukocytosis, mild - recurrent, mild (on steroids) Fever x1 COPD on home O2 Hx of Cdiff DM2 Chronic abd pain hx of MRSA bacteremia 07/2015 fibromyalgia, HTN, HLD, R breast cancer,Tobacco abuse (stopped 4 years ago), Anxiety, AOCD TCA allergy Full Code Plan: -Continue IV Vancomycin #04/23 -s/p 6d prophylatic PO vanco 02/21 -consider L diagnostic and therapeutic thoracentesis, send fluid for analysis and culture - consider bronchoscopy -Continue Meropenem d# 9 (abx d#/) -f/u Cocci ab -F/u cultures -Monitor CBC/BMP, temperatures -Aspiration precautions - vent support, wean as tolerated Subjective Allergies: Coded Allergies: TETRACYCLINE (Unverified Allergy, Unknown, 07/24/14) Subjective fever x1 recurrent mild leukocytosis intubated, bronched today with mucous plugging Objective Vital Signs Last 24 Hour Vital Signs Date Time Temp Pulse Resp B/P (MAP) Pulse Ox O2 Delivery O2 Flow Rate FiO2 02/26/17 18:30 79 16 124/46 98 Mechanical Ventilator 50 02/26/17 18:00 98.0 79 16 89/45 97 Mechanical Ventilator 50 02/26/17 18:00 18 02/26/17 18:00 100/43 02/26/17:36 98.0 02/26/17 17:30 83 16 100/43 97 Mechanical Ventilator 50 02/26/17 17:20 91 15 50 02/26/17 17:00 94 20 100/52 98 Mechanical Ventilator 50 02/26/17 17:00 20 02/26/17 16:30 101.2 99 19 118/59 99 Mechanical Ventilator 50 02/26/17 16:00 101 19 125/59 100 Mechanical Ventilator 50 02/26/17 16:00 104 02/26/17 16:00 20 02/26/17 16:00 50 02/26/17 15:41 50 02/26/17 15:30 100 22 124/66 100 Mechanical Ventilator 75 02/26/17 15:20 101 20 75 02/26/17 15:00 97 22 133/66 100 Mechanical Ventilator 75 02/26/17 15:00 16 02/26/17 14:30 95 22 124/63 100 Mechanical Ventilator 75 02/26/17 14:00 100 22 115/56 100 Mechanical Ventilator 75 02/26/17 14:00 18 02/26/17 13:30 112 19 118/74 98 Mechanical Ventilator 75 02/26/17 13:20 97 18 116/61 98 Mechanical Ventilator 75 02/26/17 13:20 75 02/26/17 13:20 75 02/26/17 13:15 96 18 121/63 97 Mechanical Ventilator 100 02/26/17 13:10 97 18 127/78 97 Mechanical Ventilator 100 02/26/17 13:10 100 16 100 02/26/17 13:05 98 18 147/68 97 Mechanical Ventilator 100 02/26/17 13:00 20 02/26/17 13:00 99 18 119/72 100 Mechanical Ventilator 100 02/26/17 12:50 17 02/26/17 12:00 100 02/26/17 12:00 96 02/26/17 12:00 98.7 97 17 111/56 98 Mechanical Ventilator 100 02/26/17 11:00 94 20 127/63 97 Mechanical Ventilator 100 02/26/17 10:45 97 16 100 02/26/17 10:45 100 02/26/17 10:15 20 02/26/17 10:00 99 22 117/58 97 Non-Rebreather 100 02/26/17 09:00 102 22 165/78 97 Non-Rebreather 100 02/26/17 09:00 165/78 02/26/17 09:00 102 165/78 02/26/17 08:00 105 02/26/17 08:00 98.6 98 25 146/62 97 Non-Rebreather 100 02/26/17 07:00 109 23 185/110 97 Non-Rebreather 100 02/26/17 06:45 Non-Rebreather 15.0 100 02/26/17 06:43 95 Non-Rebreather 15.0 100 02/26/17 06:42 116 29 Non-Rebreather 15.0 100 02/26/17 06:00 102 23 138/73 97 Non-Rebreather 100 02/26/17 05:44 117 26 94 Facial 100 02/26/17 05:00 116 23 155/76 93 Non-Rebreather 100 02/26/17 04:00 97.8 103 23 164/118 95 Non-Rebreather 100 02/26/17 04:00 102 02/26/17 03:00 103 23 171/99 95 Non-Rebreather 100 02/26/17 02:00 103 18 194/77 95 Non-Rebreather 100 02/26/17 01:00 98.1 100 21 183/76 96 Non-Rebreather 100 02/26/17 00:09 171/88 02/26/17 00:00 98.1 99 24 171/88 94 Non-Rebreather 100 02/26/17 00:00 96 02/25/17 23:00 95 25 169/83 95 Non-Rebreather 100 02/25/17 22:00 97 22 164/71 94 Non-Rebreather 100 02/25/17 21:45 98.4 02/25/17 21:00 96 22 152/71 95 Non-Rebreather 100 02/25/17 20:30 101 143/114 02/25/17 20:00 100 02/25/17 20:00 98.0 102 24 169/73 94 Non-Rebreather 100 02/25/17 19:02 89 20 Non-Rebreather 15.0 100 02/25/17 19:02 97 Non-Rebreather 15.0 100 02/25/17 19:02 Non-Rebreather 15.0 100 02/25/17 19:00 98 23 143/114 92 Non-Rebreather 100 Height (Feet): 5 Height (Inches): 7.00 Weight (Pounds): 118 General Appearance: other - intubated Respiratory/Chest: decreased breath sounds Cardiovascular: normal rate, regular rhythm Abdomen: normal bowel sounds, soft, non tender, non distended Microbiology Date/Time Source Procedure Growth Status 02/24/17 01:30 Sputum Induced Gram Stain - Final Complete 02/24/17 01:30 Sputum Induced Sputum Culture - Final NO GROWTH AFTER 48 HOURS Complete Laboratory Tests Test 02/26/17 04:00 02/26/17 05:10 02/26/17 08:10 02/26/17 15:30 Urine Eosinophils None seen White Blood Count 11.0 K/UL (4.8-10.8) H Red Blood Count 3.17 M/UL (4.20-5.40) L Hemoglobin 10.6 G/DL (12.0-16.0) L Hematocrit 32.7 % (37.0-47.0) L Mean Corpuscular Volume 103 FL (80-99) H Mean Corpuscular Hemoglobin 33.3 PG (27.0-31.0) H Mean Corpuscular Hemoglobin Concent 32.3 G/DL (32.0-36.0) Red Cell Distribution Width 11.8 % (11.6-14.8) Platelet Count 293 K/UL (150-450) Mean Platelet Volume 7.0 FL (6.5-10.1) Neutrophils (%) (Auto) 75.8 % (45.0-75.0) H Lymphocytes (%) (Auto) 14.5 % (20.0-45.0) L Monocytes (%) (Auto) 7.3 % (1.0-10.0) Eosinophils (%) (Auto) 2.0 % (0.0-3.0) Basophils (%) (Auto) 0.4 % (0.0-2.0) Sodium Level 143 MMOL/L (136-145) Potassium Level 4.4 MMOL/L (3.5-5.1) Chloride Level 101 MMOL/L (98-107) Carbon Dioxide Level 37 MMOL/L (21-32) H Anion Gap 5 mmol/L (5-15) Blood Urea Nitrogen 25 mg/dL (7-18) H Creatinine 0.5 MG/DL (0.55-1.30) L Estimat Glomerular Filtration Rate mL/min (>60) Glucose Level 92 MG/DL (74-106) Uric Acid 4.3 MG/DL (2.6-7.2) Calcium Level 9.3 MG/DL (8.5-10.1) Phosphorus Level 1.9 MG/DL (2.5-4.9) L Magnesium Level 1.6 MG/DL (1.8-2.4) L Total Bilirubin 0.6 MG/DL (0.2-1.0) Aspartate Amino Transf (AST/SGOT) 31 U/L (15-37) Alanine Aminotransferase (ALT/SGPT) 18 U/L (12-78) Alkaline Phosphatase 49 U/L (46-116) C-Reactive Protein, Quantitative 8.2 mg/dL (0.00-0.90) H Pro-B-Type Natriuretic Peptide 4572 pg/mL (0-125) H Total Protein 5.7 G/DL (6.4-8.2) L Albumin 2.3 G/DL (3.4-5.0) L Globulin 3.4 g/dL Albumin/Globulin Ratio 0.7 (1.0-2.7) L Arterial Blood pH 7.480 (7.350-7.450) 7.570 (7.350-7.450) Arterial Blood Partial Pressure CO2 47.2 mmHg (35.0-45.0) H 34.8 mmHg (35.0-45.0) L Arterial Blood Partial Pressure O2 108.2 mmHg (75.0-100.0) H 181.4 mmHg (75.0-100.0) H Arterial Blood HCO3 34.4 mmol/L (22.0-26.0) H 31.7 mmol/L (22.0-26.0) H Arterial Blood Oxygen Saturation 98.5 % (92.0-98.0) H 99.8 % (92.0-98.0) H Arterial Blood Base Excess 9.8 9.3 Scooby Test Positive Positive Current Medications Medications (Trade) Dose Ordered Sig/Wilner Route PRN Reason Start Time Stop Time Status Last Admin Dose Admin Acetaminophen (Tylenol) 650 mg Q4H PRN ORAL FEVER 02/25/17 15:15 03/27/17 15:14 02/26/17 16:37 Albuterol/ Ipratropium (DuoNeb 0.5-3(2.5)mg/3ml) 3 ml Q4HR PRN HHN SHORTNESS OF BREATH 02/25/17 15:15 03/02/17 15:14 Allopurinol (Allopurinol) 300 mg DAILY ORAL 02/26/17 09:00 03/26/17 12:59 Aspirin (Ecotrin) 81 mg DAILY ORAL 02/26/17 09:00 03/19/17 08:59 Bisacodyl (Dulcolax) 10 mg DAILYPRN PRN RECTAL Constipation Third Line Agent 02/25/17 15:15 03/27/17 15:14 Carvedilol (Coreg) 6.25 mg Q12HR ORAL 02/25/17 21:00 03/25/17 20:59 02/25/17 20:30 Dextrose (Dextrose 50%) STAT PRN IV Hypoglycemia 02/25/17 15:15 03/17/17 15:14 Escitalopram Oxalate (Lexapro) 10 mg DAILY ORAL 02/26/17 09:00 03/20/17 08:59 Fentanyl Citrate 1000 mcg/Sodium Chloride 100 ml @ 0 mls/hr Q24H IV 02/26/17 12:00 03/05/17 11:59 02/26/17 12:50 Haloperidol Lactate (Haldol) 2 mg Q4H PRN IM Agitation 02/25/17 15:15 03/27/17 15:14 02/25/17 22:38 Hydralazine HCl (Apresoline) 25 mg Q4H PRN ORAL SBP > 160mmHg 02/25/17 15:15 03/27/17 15:14 02/26/17 00:09 Levalbuterol HCl (Xopenex) 1.25 mg Q4H PRN HHN Bronchospasm 02/25/17 15:15 03/02/17 15:14 Lidocaine (Xylocaine 1% MPF 5ml) 10 ml Q4H PRN HHN cough 02/25/17 15:15 03/19/17 15:14 Lisinopril (Prinivil) 20 mg BID ORAL 02/25/17 18:00 03/27/17 17:59 02/25/17 17:27 Lorazepam (Ativan 2mg/ml 1ml) 2 mg Q4H PRN IV For Anxiety 02/26/17 11:00 03/05/17 10:59 02/26/17 11:54 Meropenem 1 gm/ Sodium Chloride 110 ml @ 220 mls/hr Q12HR IVPB 02/25/17 21:00 02/28/17 20:59 02/26/17 08:24 Morphine Sulfate (Morphine Sulfate) 4 mg Q4H PRN IVP Breakthrough Pain 02/26/17 11:00 03/05/17 10:59 Ondansetron HCl (Zofran) 4 mg Q6H PRN IVP Nausea & Vomiting 02/25/17 15:15 03/17/17 15:14 Pantoprazole (Protonix) 40 mg DAILY IV 02/27/17 09:00 03/29/17 08:59 Polyethylene Glycol (Miralax) 17 gm DAILYPRN PRN ORAL Constipation First line agent 02/25/17 15:15 03/17/17 15:14 Pravastatin Sodium (Pravachol) 20 mg BEDTIME ORAL 02/25/17 21:00 03/18/17 20:59 02/25/17 20:27 Prednisone (predniSONE) 40 mg DAILY ORAL 02/26/17 09:00 03/28/17 08:59 Pregabalin (Lyrica) 150 mg THREE TIMES A DAY ORAL 02/25/17 18:00 03/18/17 12:59 02/25/17 17:26 Promethazine HCl/ Codeine (Phenergan with Codeine) 5 ml Q4H PRN ORAL UNRELIEVED COUGH 02/25/17 15:15 03/18/17 15:14 Ranitidine HCl (Zantac) 150 mg QPM ORAL 02/25/17 16:30 03/27/17 16:29 02/26/17 16:37 Sodium Chloride 250 ml @ 999 mls/hr ONCE ONCE IVPB 02/26/17 18:45 02/26/17 19:00 02/26/17 18:37 Vancomycin HCl (Vanco rx to dose) 1 ea DAILY PRN MISC PER RX PROTOCOL 02/26/17 09:00 03/18/17 07:44 Vancomycin/Sodium Chloride 250 ml @ 166.667 mls/hr Q24H IVPB 02/25/17 21:00 02/28/17 20:59 02/25/17 21:00 MENDOZA PANTOJA Feb 26, 2017 19:04
--- NOTE | 2017-02-26 22:29 | General Progress Note ---
Assessment/Plan Status: stable, progressing Assessment/Plan anxiety d/o' -cont current meds -provided ro/st Subjective Neurologic/Psychiatric: Reports: anxiety, depressed, emotional problems Allergies: Coded Allergies: TETRACYCLINE (Unverified Allergy, Unknown, 07/24/14) Subjective the pt os doing well much improved/ Objective Last 24 Hour Vital Signs Date Time Temp Pulse Resp B/P (MAP) Pulse Ox O2 Delivery O2 Flow Rate FiO2 02/26/17 21:20 87 102/46 02/26/17 21:13 87 16 50 02/26/17 21:00 86 16 104/50 97 Mechanical Ventilator 50 02/26/17 20:30 87 16 102/46 97 Mechanical Ventilator 50 02/26/17 20:00 88 16 152/64 97 Mechanical Ventilator 50 02/26/17 19:30 91 16 159/89 97 Mechanical Ventilator 50 02/26/17 19:22 75 16 50 02/26/17 19:00 74 16 113/44 98 Mechanical Ventilator 50 02/26/17 19:00 18 02/26/17 18:30 79 16 124/46 98 Mechanical Ventilator 50 02/26/17 18:00 98.0 79 16 89/45 97 Mechanical Ventilator 50 02/26/17 18:00 18 02/26/17 18:00 100/43 02/26/17 17:36 98.0 02/26/17 17:30 83 16 100/43 97 Mechanical Ventilator 50 02/26/17 17:20 91 15 50 02/26/17 17:00 94 20 100/52 98 Mechanical Ventilator 50 02/26/17 17:00 20 02/26/17 16:30 101.2 99 19 118/59 99 Mechanical Ventilator 50 02/26/17 16:00 101 19 125/59 100 Mechanical Ventilator 50 02/26/17 16:00 104 02/26/17 16:00 20 02/26/17 16:00 50 02/26/17 15:41 50 02/26/17 15:30 100 22 124/66 100 Mechanical Ventilator 75 02/26/17 15:20 101 20 75 02/26/17 15:00 97 22 133/66 100 Mechanical Ventilator 75 02/26/17 15:00 16 02/26/17 14:30 95 22 124/63 100 Mechanical Ventilator 75 02/26/17 14:00 100 22 115/56 100 Mechanical Ventilator 75 02/26/17 14:00 18 02/26/17 13:30 112 19 118/74 98 Mechanical Ventilator 75 02/26/17 13:20 97 18 116/61 98 Mechanical Ventilator 75 02/26/17 13:20 75 02/26/17 13:20 75 02/26/17 13:15 96 18 121/63 97 Mechanical Ventilator 100 02/26/17 13:10 97 18 127/78 97 Mechanical Ventilator 100 02/26/17 13:10 100 16 100 02/26/17 13:05 98 18 147/68 97 Mechanical Ventilator 100 02/26/17 13:00 20 02/26/17 13:00 99 18 119/72 100 Mechanical Ventilator 100 02/26/17 12:50 17 02/26/17 12:00 100 02/26/17 12:00 96 02/26/17 12:00 98.7 97 17 111/56 98 Mechanical Ventilator 100 02/26/17 11:00 94 20 127/63 97 Mechanical Ventilator 100 02/26/17 10:45 97 16 100 02/26/17 10:45 100 02/26/17 10:15 20 02/26/17 10:00 99 22 117/58 97 Non-Rebreather 100 02/26/17 09:00 102 22 165/78 97 Non-Rebreather 100 02/26/17 09:00 165/78 02/26/17 09:00 102 165/78 02/26/17 08:00 105 02/26/17 08:00 98.6 98 25 146/62 97 Non-Rebreather 100 02/26/17 07:00 109 23 185/110 97 Non-Rebreather 100 02/26/17 06:45 Non-Rebreather 15.0 100 02/26/17 06:43 95 Non-Rebreather 15.0 100 02/26/17 06:42 116 29 Non-Rebreather 15.0 100 02/26/17 06:00 102 23 138/73 97 Non-Rebreather 100 02/26/17 05:44 117 26 94 Facial 100 02/26/17 05:00 116 23 155/76 93 Non-Rebreather 100 02/26/17 04:00 97.8 103 23 164/118 95 Non-Rebreather 100 02/26/17 04:00 102 02/26/17 03:00 103 23 171/99 95 Non-Rebreather 100 02/26/17 02:00 103 18 194/77 95 Non-Rebreather 100 02/26/17 01:00 98.1 100 21 183/76 96 Non-Rebreather 100 02/26/17 00:09 171/88 02/26/17 00:00 98.1 99 24 171/88 94 Non-Rebreather 100 02/26/17 00:00 96 02/25/17 23:00 95 25 169/83 95 Non-Rebreather 100 Intake and Output 02/26/17 02/27/17 19:00 07:00 Intake Total 1685.6 ml 30 ml Output Total 1060 ml 100 ml Balance 625.6 ml -70 ml IV Total 1670.6 ml Tube Feeding 15 ml 30 ml Output Urine Total 1060 ml 100 ml # Bowel Movements 3 1 Laboratory Tests 02/26/17 04:00: Urine Eosinophils None seen 02/26/17 05:10: White Blood Count 11.0H, Red Blood Count 3.17L, Hemoglobin 10.6L, Hematocrit 32.7L, Mean Corpuscular Volume 103H, Mean Corpuscular Hemoglobin 33.3H, Mean Corpuscular Hemoglobin Concent 32.3, Red Cell Distribution Width 11.8, Platelet Count 293, Mean Platelet Volume 7.0, Neutrophils (%) (Auto) 75.8H, Lymphocytes ( %) (Auto) 14.5L, Monocytes (%) (Auto) 7.3, Eosinophils (%) (Auto) 2.0, Basophils (%) (Auto) 0.4, Sodium Level 143, Potassium Level 4.4, Chloride Level 101, Carbon Dioxide Level 37H, Anion Gap 5, Blood Urea Nitrogen 25H, Creatinine 0.5L, Estimat Glomerular Filtration Rate , Glucose Level 92, Uric Acid 4.3, Calcium Level 9.3, Phosphorus Level 1.9L, Magnesium Level 1.6L, Total Bilirubin 0.6, Aspartate Amino Transf (AST/SGOT) 31, Alanine Aminotransferase (ALT/SGPT) 18, Alkaline Phosphatase 49, C-Reactive Protein, Quantitative 8.2H, Pro-B-Type Natriuretic Peptide 4572H, Total Protein 5.7L, Albumin 2.3L, Globulin 3.4, Albumin/Globulin Ratio 0.7L 02/26/17 08:10: Arterial Blood pH 7.480H, Arterial Blood Partial Pressure CO2 47.2H, Arterial Blood Partial Pressure O2 108.2H, Arterial Blood HCO3 34.4H, Arterial Blood Oxygen Saturation 98.5H, Arterial Blood Base Excess 9.8, Scooby Test Positive 02/26/17 15:30: Arterial Blood pH 7.570*H, Arterial Blood Partial Pressure CO2 34.8L, Arterial Blood Partial Pressure O2 181.4H, Arterial Blood HCO3 31.7H, Arterial Blood Oxygen Saturation 99.8H, Arterial Blood Base Excess 9.3, Scooby Test Positive 02/26/17 20:10: Alpha Fetoprotein [Pending], Vancomycin Level Trough 12.6H Height (Feet): 5 Height (Inches): 7.00 Weight (Pounds): 118 General Appearance: no apparent distress, alert, overweight Neurologic: alert, oriented x 3, responsive, depressed affect Wan Stern M.D. Feb 26, 2017 22:29
[2017-02-27] VITALS (47 sets, daily range): BP systolic 87–171; BP diastolic 44–105
[2017-02-27] MEDS: LORazepam Inj 2mg/ml 1ml IV PRN ×2 (03:24→13:47)
[2017-02-27 05:28] LABS: BASOPHILS % (AUTO) 0.2 % (0.0-2.0); EOSINOPHILS % (AUTO) 0.8 % (0.0-3.0); HEMATOCRIT 31.8 % (37.0-47.0); HEMOGLOBIN 10.2 G/DL (12.0-16.0); LYMPHOCYTES % (AUTO) 14.6 % (20.0-45.0); MEAN CORPUSCULAR VOLUME 100 FL (80-99); MONOCYTES % (AUTO) 6.6 % (1.0-10.0); NEUTROPHILS % (AUTO) 77.8 % (45.0-75.0); PLATELET COUNT 286 K/UL (150-450); RED BLOOD COUNT 3.17 M/UL (4.20-5.40); RED CELL DISTRIBUTION WIDTH 11.5 % (11.6-14.8); WHITE BLOOD COUNT 13.8 K/UL (4.8-10.8)
[2017-02-27 06:00] LABS: ALANINE AMINOTRANSFERASE 11 U/L (12-78); ALBUMIN 2.3 G/DL (3.4-5.0); ALBUMIN/GLOBULIN RATIO 0.6 (1.0-2.7); ALKALINE PHOSPHATASE 48 U/L (46-116); ANION GAP 10 mmol/L (5-15); ASPARTATE AMINO TRANSFERASE 21 U/L (15-37); BILIRUBIN,TOTAL 0.9 MG/DL (0.2-1.0); BLOOD UREA NITROGEN 33 mg/dL (7-18); CALCIUM 9.6 MG/DL (8.5-10.1); CARBON DIOXIDE 32 MMOL/L (21-32); CHLORIDE 101 MMOL/L (98-107); CREATININE 0.7 MG/DL (0.55-1.30); PHOSPHORUS 1.9 MG/DL (2.5-4.9); POTASSIUM 2.8 MMOL/L (3.5-5.1); SODIUM 144 MMOL/L (136-145)
[2017-02-27] MEDS: Pantoprazole Inj IV SCH (08:43)
[2017-02-27] MEDS: Meropenem 1 GM in NS 110 ML IVPB SCH ×2 (08:44→20:32)
[2017-02-27] MEDS: Aspirin EC 81mg tab ORAL SCH (08:45)
[2017-02-27] MEDS: Carvedilol 6.25mg Tab ORAL SCH ×2 (08:45→20:33)
[2017-02-27] MEDS: Lyrica 75mg cap ORAL SCH ×3 (08:48→17:24)
[2017-02-27] MEDS: Lisinopril 20mg tab ORAL SCH ×2 (08:51→17:23)
--- NOTE | 2017-02-27 10:16 | Pulmonolgy Critical Care Note ---
Critical Care - Asmt/Plan Problems: (1) Acute and chronic respiratory failure ([id number]) (2) COPD (chronic obstructive pulmonary disease) (3) Right middle lobe pneumonia (4) Collapse of left lung Respiratory: monitor respiratory rate, adjust FIO2 Cardiac: continue to monitor HR/BP Renal: F/U I&O, check electrolytes Infectious Disease: check cultures, continue antibiotics Gastrointestinal: continue feedings/current rate Endocrine: monitor blood sugar, check TSH, continue sliding scale insulin Hematologic: monitor H/H, transfuse if hgb<8.5 Neurologic: PRN Ativan, PRN Morphine, keep patient comfortable Affect: PRN ativan 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9 107 21 145/55 98 Mechanical Ventilator 50 02/27/17 07:08 98 19 50 02/27/17 07:00 17 02/27/17 07:00 87 16 127/55 98 Mechanical Ventilator 50 02/27/17 06:30 89 16 130/47 98 Mechanical Ventilator 50 02/27/17 06:00 16 02/27/17 06:00 91 16 115/48 98 Mechanical Ventilator 50 02/27/17 05:30 93 16 133/58 98 Mechanical Ventilator 50 02/27/17 05:05 95 17 50 02/27/17 05:00 17 02/27/17 05:00 92 16 120/68 99 Mechanical Ventilator 50 02/27/17 05:00 100 20 150/65 96 Mechanical Ventilator 50 02/27/17 04:30 95 17 156/83 99 Mechanical Ventilator 50 02/27/17 04:00 89 02/27/17 04:00 16 02/27/17 04:00 91 16 162/105 98 Mechanical Ventilator 50 02/27/17 03:30 90 16 147/68 99 Mechanical Ventilator 50 02/27/17 03:02 101 27 50 02/27/17 03:00 100 20 164/77 97 Mechanical Ventilator 50 02/27/17 03:00 17 02/27/17 02:30 89 16 136/72 98 Mechanical Ventilator 50 02/27/17 02:00 16 02/27/17 02:00 91 16 151/66 98 Mechanical Ventilator 50 02/27/17 01:30 100 20 150/65 96 Mechanical Ventilator 50 02/27/17 01:11 104 26 50 02/27/17 01:00 100 20 129/58 95 Mechanical Ventilator 50 02/27/17 01:00 17 02/27/17 00:30 88 17 138/73 96 Mechanical Ventilator 50 02/27/17 00:00 84 02/27/17 00:00 16 02/27/17 00:00 87 16 147/58 96 Mechanical Ventilator 50 02/26/17 23:30 85 16 144/53 97 Mechanical Ventilator 50 02/26/17 23:09 92 16 50 02/26/17 23:00 91 17 127/57 98 Mechanical Ventilator 50 02/26/17 23:00 17 02/26/17 22:30 94 16 134/55 97 Mechanical Ventilator 50 02/26/17 22:00 16 02/26/17 22:00 83 16 120/42 98 Mechanical Ventilator 50 02/26/17 21:30 85 16 107/50 98 Mechanical Ventilator 50 02/26/17 21:20 87 102/46 02/26/17 21:13 87 16 50 02/26/17 21:00 86 16 104/50 97 Mechanical Ventilator 50 02/26/17 21:00 16 02/26/17 20:30 87 16 102/46 97 Mechanical Ventilator 50 02/26/17 20:00 91 02/26/17 20:00 16 02/26/17 20:00 88 16 152/64 97 Mechanical Ventilator 50 02/26/17 19:30 91 16 159/89 97 Mechanical Ventilator 50 02/26/17 19:22 75 16 50 10/19/17 19:00 74 16 113/44 98 Mechanical Ventilator 50 02/26/17 19:00 18 02/26/17 18:30 79 16 124/46 98 Mechanical Ventilator 50 02/26/17 18:00 98.0 79 16 89/45 97 Mechanical Ventilator 50 02/26/17 18:00 18 02/26/17 18:00 100/43 02/26/17 17:36 98.0 02/26/17 17:30 83 16 100/43 97 Mechanical Ventilator 50 02/26/17 17:20 91 15 50 02/26/17 17:00 94 20 100/52 98 Mechanical Ventilator 50 02/26/17 17:00 20 02/26/17 16:30 101.2 99 19 118/59 99 Mechanical Ventilator 50 02/26/17 16:00 101 19 125/59 100 Mechanical Ventilator 50 02/26/17 16:00 104 02/26/17 16:00 20 02/26/17 16:00 50 02/26/17 15:41 50 02/26/17 15:30 100 22 124/66 100 Mechanical Ventilator 75 02/26/17 15:20 101 20 75 02/26/17 15:00 97 22 133/66 100 Mechanical Ventilator 75 02/26/17 15:00 16 02/26/17 14:30 95 22 124/63 100 Mechanical Ventilator 75 02/26/17 14:00 100 22 115/56 100 Mechanical Ventilator 75 02/26/17 14:00 18 02/26/17 13:30 112 19 118/74 98 Mechanical Ventilator 75 02/26/17 13:20 97 18 116/61 98 Mechanical Ventilator 75 02/26/17 13:20 75 02/26/17 13:20 75 02/26/17 13:15 96 18 121/63 97 Mechanical Ventilator 100 02/26/17 13:10 97 18 127/78 97 Mechanical Ventilator 100 02/26/17 13:10 100 16 100 02/26/17 13:05 98 18 147/68 97 Mechanical Ventilator 100 02/26/17 13:00 20 02/26/17 13:00 99 18 119/72 100 Mechanical Ventilator 100 02/26/17 12:50 17 02/26/17 12:00 100 02/26/17 12:00 96 02/26/17 12:00 98.7 97 17 111/56 98 Mechanical Ventilator 100 02/26/17 11:00 94 20 127/63 97 Mechanical Ventilator 100 02/26/17 10:45 97 16 100 02/26/17 10:45 100 02/26/17 10:15 20 Status: awake Condition: critical HEENT: atraumatic Lungs: clear, chest wall tender Heart: HR/BP stable, HR/BP unstable, regular Abdomen: non-tender, feeding tube Extremities: edema Decubiti: location Accucheck: 124 Critical Care - Subjective ROS Limited/Unobtainable: No ICU Day: 3 Intubation Day: 3 Condition: critical EKG Rhythm: Sinus Rhythm FI02: 50 Vent Support Breath Rate: 16 Vent Support Mode: AC Vent Tidal Volume: 600 Sputum Amount: Moderate PIP: 25 Tube Feeding Amount: 30 I&O: Intake and Output 02/27/17 02/28/17 19:00 07:00 Intake Total 220 ml Output Total 86 ml Balance 134 ml IV Total 120 ml Tube Feeding 0 ml Blood Product 100 ml Output Urine Total 86 ml # Bowel Movements 1 CXR: slightly better, ET in good position ET-Tube: 8.0 ET Position: 21 Labs: Laboratory Tests Test 02/26/17 15:30 02/26/17 20:10 02/27/17 04:50 02/27/17 08:15 Arterial Blood pH 7.570 (7.350-7.450) 7.714 (7.350-7.450) Arterial Blood Partial Pressure CO2 34.8 mmHg (35.0-45.0) L 23.4 mmHg (35.0-45.0) *L Arterial Blood Partial Pressure O2 181.4 mmHg (75.0-100.0) H 175.5 mmHg (75.0-100.0) H Arterial Blood HCO3 31.7 mmol/L (22.0-26.0) H 29.2 mmol/L (22.0-26.0) H Arterial Blood Oxygen Saturation 99.8 % (92.0-98.0) H 99.5 % (92.0-98.0) H Arterial Blood Base Excess 9.3 9.8 Scooby Test Positive Positive Alpha Fetoprotein Pending Vancomycin Level Trough 12.6 ug/mL (5.0-12.0) H White Blood Count 13.8 K/UL (4.8-10.8) H Red Blood Count 3.17 M/UL (4.20-5.40) L Hemoglobin 10.2 G/DL (12.0-16.0) L Hematocrit 31.8 % (37.0-47.0) L Mean Corpuscular Volume 100 FL (80-99) H Mean Corpuscular Hemoglobin 32.2 PG (27.0-31.0) H Mean Corpuscular Hemoglobin Concent 32.1 G/DL (32.0-36.0) Red Cell Distribution Width 11.5 % (11.6-14.8) L Platelet Count 286 K/UL (150-450) Mean Platelet Volume 7.2 FL (6.5-10.1) Neutrophils (%) (Auto) 77.8 % (45.0-75.0) H Lymphocytes (%) (Auto) 14.6 % (20.0-45.0) L Monocytes (%) (Auto) 6.6 % (1.0-10.0) Eosinophils (%) (Auto) 0.8 % (0.0-3.0) Basophils (%) (Auto) 0.2 % (0.0-2.0) Sodium Level 144 MMOL/L (136-145) Potassium Level 2.8 MMOL/L (3.5-5.1) L Chloride Level 101 MMOL/L (98-107) Carbon Dioxide Level 32 MMOL/L (21-32) Anion Gap 10 mmol/L (5-15) Blood Urea Nitrogen 33 mg/dL (7-18) H Creatinine 0.7 MG/DL (0.55-1.30) Estimat Glomerular Filtration Rate mL/min (>60) Glucose Level 125 MG/DL (74-106) H Uric Acid 4.2 MG/DL (2.6-7.2) Calcium Level 9.6 MG/DL (8.5-10.1) Phosphorus Level 1.9 MG/DL (2.5-4.9) L Magnesium Level 2.0 MG/DL (1.8-2.4) Total Bilirubin 0.9 MG/DL (0.2-1.0) Aspartate Amino Transf (AST/SGOT) 21 U/L (15-37) Alanine Aminotransferase (ALT/SGPT) 11 U/L (12-78) L Alkaline Phosphatase 48 U/L (46-116) C-Reactive Protein, Quantitative 11.4 mg/dL (0.00-0.90) H Pro-B-Type Natriuretic Peptide 2259 pg/mL (0-125) H Total Protein 6.3 G/DL (6.4-8.2) L Albumin 2.3 G/DL (3.4-5.0) L Globulin 4.0 g/dL Albumin/Globulin Ratio 0.6 (1.0-2.7) L TWIN FONTANEZ Feb 27, 2017 10:16
[2017-02-27] MEDS: Phospha 250 Neutral tab NG SCH ×3 (11:20→17:23)
[2017-02-27] MEDS ORDERED: KCl 10% 40mEq/30ml liquid NG ONE (11:30)
--- NOTE | 2017-02-27 12:50 | Diagnostic Imaging Report ---
Indication: DYSPNEA Technique: One view of the chest Comparison: 02/26/2017 Findings: Right axillary surgical clips, endotracheal tube, nasogastric tube are again demonstrated. Bilateral diffuse interstitial disease, left perihilar and suprahilar alveolar opacities persists, unchanged. Impression: Unchanged, over one day, findings as above.
--- NOTE | 2017-02-27 14:21 | Infectious Diseases Prog Note ---
Assessment/Plan Assessment/Plan Assessment: Acute on chronic hypoxic resp failure, - combination of COPD exacerbation and PNA, mucous plugging. Intubated 02/26 -venous duplex 02/16no DVT PNA; worsening- r/o MDRO, r/o fungal pneumonia. SGS(-), Cx NGTD - SP bronch 02/26: BAL pending - CT Chest 02/24: Near-complete occlusion of the left mainstem bronchus and proximal lobar bronchi, probably by debris. Extensive resultant atelectasis and consolidation of nearly the entire left lung. Less extensive consolidation within the right lung, nonspecific as regards etiology, likely secondary to pneumonia or edema -CXR 02/23: Better inspiration currently. Overall improved aeration of the right mid and lower lung, with decreased dense consolidation and is still fairly extensive parenchymal opacity. The right pleural space is clear. Large left pleural effusion is again demonstrated, and is increased from the prior exam. There is also increasing consolidation of the residual aerated lung in the left upper hemithorax. -negative: CrAg L pleural effusion r/o empyema Leukocytosis, mild - recurrent, mild (on steroids) Fever x1 COPD on home O2 Hx of Cdiff DM2 Chronic abd pain hx of MRSA bacteremia 07/2015 fibromyalgia, HTN, HLD, R breast cancer,Tobacco abuse (stopped 4 years ago), Anxiety, AOCD TCA allergy Full Code Plan: -Continue IV Vancomycin # 13 / 14, and Meropenem d# 10 , if further fever may add Mycamine -s/p 6d prophylatic PO vanco 02/21 -consider L diagnostic and therapeutic thoracentesis, send fluid for analysis and culture - consider bronchoscopy -f/u Cocci ab -F/u cultures -Monitor CBC/BMP, temperatures -Aspiration precautions - vent support, wean as tolerated Subjective Constitutional: Denies: no symptoms, fever, chills, fatigue, anorexia, drenching sweats, other Allergies: Coded Allergies: TETRACYCLINE (Unverified Allergy, Unknown, 07/24/14) Objective Vital Signs Last 24 Hour Vital Signs Date Time Temp Pulse Resp B/P (MAP) Pulse Ox O2 Delivery O2 Flow Rate FiO2 02/27/17 13:00 92 16 170/68 97 Mechanical Ventilator 50 02/27/17 13:00 17 02/27/17 12:41 95 19 50 02/27/17 12:30 97 17 153/69 97 Mechanical Ventilator 50 02/27/17 12:01 99.0 98 17 136/65 97 Mechanical Ventilator 50 02/27/17 12:00 98 02/27/17 12:00 21 02/27/17 11:30 97 21 146/66 97 Mechanical Ventilator 50 02/27/17 11:00 88 18 50 02/27/17 11:00 99 19 153/66 97 Mechanical Ventilator 50 02/27/17 11:00 24 02/27/17 10:30 105 21 150/94 98 Mechanical Ventilator 50 02/27/17 10:00 24 02/27/17 10:00 100 18 128/63 97 Mechanical Ventilator 50 02/27/17 09:29 86 20 50 02/27/17 09:00 106 17 147/72 96 Mechanical Ventilator 50 02/27/17 09:00 25 02/27/17 08:51 127/95 02/27/17 08:45 98 127/95 02/27/17 08:30 107 25 130/62 96 Mechanical Ventilator 50 02/27/17 08:00 96 02/27/17 08:00 97.9 106 20 108/65 98 Mechanical Ventilator 50 02/27/17 08:00 20 02/27/17 07:30 97.9 107 21 145/55 98 Mechanical Ventilator 50 02/27/17 07:08 98 19 50 02/27/17 07:00 17 02/27/17 07:00 87 16 127/55 98 Mechanical Ventilator 50 02/27/17 06:30 89 16 130/47 98 Mechanical Ventilator 50 02/27/17 06:00 16 02/27/17 06:00 91 16 115/48 98 Mechanical Ventilator 50 02/27/17 05:30 93 16 133/58 98 Mechanical Ventilator 50 02/27/17 05:05 95 17 50 02/27/17 05:00 17 02/27/17 05:00 92 16 120/68 99 Mechanical Ventilator 50 02/27/17 05:00 100 20 150/65 96 Mechanical Ventilator 50 02/27/17 04:30 95 17 156/83 99 Mechanical Ventilator 50 02/27/17 04:00 89 02/27/17 04:00 16 02/27/17 04:00 91 16 162/105 98 Mechanical Ventilator 50 02/27/17 03:30 90 16 147/68 99 Mechanical Ventilator 50 02/27/17 03:02 101 27 50 02/27/17 03:00 100 20 164/77 97 Mechanical Ventilator 50 02/27/17 03:00 17 02/27/17 02:30 89 16 136/72 98 Mechanical Ventilator 50 02/27/17 02:00 16 02/27/17 02:00 91 16 151/66 98 Mechanical Ventilator 50 02/27/17 01:30 100 20 150/65 96 Mechanical Ventilator 50 02/27/17 01:11 104 26 50 02/27/17 01:00 100 20 129/58 95 Mechanical Ventilator 50 02/27/17 01:00 17 02/27/17 00:30 88 17 138/73 96 Mechanical Ventilator 50 02/27/17 00:00 84 02/27/17 00:00 16 02/27/17 00:00 87 16 147/58 96 Mechanical Ventilator 50 02/26/17 23:30 85 16 144/53 97 Mechanical Ventilator 50 02/26/17 23:09 92 16 50 02/26/17 23:00 91 17 127/57 98 Mechanical Ventilator 50 02/26/17 23:00 17 02/26/17 22:30 94 16 134/55 97 Mechanical Ventilator 50 02/26/17 22:00 16 02/26/17 22:00 83 16 120/42 98 Mechanical Ventilator 50 02/26/17 21:30 85 16 107/50 98 Mechanical Ventilator 50 02/26/17 21:20 87 102/46 02/26/17 21:13 87 16 50 02/26/17 21:00 86 16 104/50 97 Mechanical Ventilator 50 02/26/17 21:00 16 02/26/17 20:30 87 16 102/46 97 Mechanical Ventilator 50 02/26/17 20:00 91 02/26/17 20:00 16 02/26/17 20:00 88 16 152/64 97 Mechanical Ventilator 50 02/26/17 19:30 91 16 159/89 97 Mechanical Ventilator 50 02/26/17 19:22 75 16 50 02/26/17 19:00 74 16 113/44 98 Mechanical Ventilator 50 17 19:00 18 02/26/17 18:30 79 16 124/46 98 Mechanical Ventilator 50 02/26/17 18:00 98.0 79 16 89/45 97 Mechanical Ventilator 50 02/26/17 18:00 18 02/26/17 18:00 100/43 02/26/17 17:36 98.0 02/26/17 17:30 83 16 100/43 97 Mechanical Ventilator 50 02/26/17 17:20 91 15 50 02/26/17 17:00 94 20 100/52 98 Mechanical Ventilator 50 02/26/17 17:00 20 02/26/17 16:30 101.2 99 19 118/59 99 Mechanical Ventilator 50 02/26/17 16:00 101 19 125/59 100 Mechanical Ventilator 50 02/26/17 16:00 104 02/26/17 16:00 20 02/26/17 16:00 50 02/26/17 15:41 50 02/26/17 15:30 100 22 124/66 100 Mechanical Ventilator 75 02/26/17 15:20 101 20 75 02/26/17 15:00 97 22 133/66 100 Mechanical Ventilator 75 02/26/17 15:00 16 02/26/17 14:30 95 22 124/63 100 Mechanical Ventilator 75 Height (Feet): 5 Height (Inches): 7.00 Weight (Pounds): 119 HEENT: anicteric Respiratory/Chest: no respiratory distress Cardiovascular: regular rhythm Abdomen: non distended Laboratory Tests Test 02/26/17 15:30 02/26/17 20:10 02/27/17 04:50 02/27/17 08:15 Arterial Blood pH 7.570 (7.350-7.450) 7.714 (7.350-7.450) Arterial Blood Partial Pressure CO2 34.8 mmHg (35.0-45.0) L 23.4 mmHg (35.0-45.0) *L Arterial Blood Partial Pressure O2 181.4 mmHg (75.0-100.0) H 175.5 mmHg (75.0-100.0) H Arterial Blood HCO3 31.7 mmol/L (22.0-26.0) H 29.2 mmol/L (22.0-26.0) H Arterial Blood Oxygen Saturation 99.8 % (92.0-98.0) H 99.5 % (92.0-98.0) H Arterial Blood Base Excess 9.3 9.8 Scooby Test Positive Positive Alpha Fetoprotein 2.2 ng/mL (0.0-8.3) Vancomycin Level Trough 12.6 ug/mL (5.0-12.0) H White Blood Count 13.8 K/UL (4.8-10.8) H Red Blood Count 3.17 M/UL (4.20-5.40) L Hemoglobin 10.2 G/DL (12.0-16.0) L Hematocrit 31.8 % (37.0-47.0) L Mean Corpuscular Volume 100 FL (80-99) H Mean Corpuscular Hemoglobin 32.2 PG (27.0-31.0) H Mean Corpuscular Hemoglobin Concent 32.1 G/DL (32.0-36.0) Red Cell Distribution Width 11.5 % (11.6-14.8) L Platelet Count 286 K/UL (150-450) Mean Platelet Volume 7.2 FL (6.5-10.1) Neutrophils (%) (Auto) 77.8 % (45.0-75.0) H Lymphocytes (%) (Auto) 14.6 % (20.0-45.0) L Monocytes (%) (Auto) 6.6 % (1.0-10.0) Eosinophils (%) (Auto) 0.8 % (0.0-3.0) Basophils (%) (Auto) 0.2 % (0.0-2.0) Sodium Level 144 MMOL/L (136-145) Potassium Level 2.8 MMOL/L (3.5-5.1) L Chloride Level 101 MMOL/L (98-107) Carbon Dioxide Level 32 MMOL/L (21-32) Anion Gap 10 mmol/L (5-15) Blood Urea Nitrogen 33 mg/dL (7-18) H Creatinine 0.7 MG/DL (0.55-1.30) Estimat Glomerular Filtration Rate mL/min (>60) Glucose Level 125 MG/DL (74-106) H Uric Acid 4.2 MG/DL (2.6-7.2) Calcium Level 9.6 MG/DL (8.5-10.1) Phosphorus Level 1.9 MG/DL (2.5-4.9) L Magnesium Level 2.0 MG/DL (1.8-2.4) Total Bilirubin 0.9 MG/DL (0.2-1.0) Aspartate Amino Transf (AST/SGOT) 21 U/L (15-37) Alanine Aminotransferase (ALT/SGPT) 11 U/L (12-78) L Alkaline Phosphatase 48 U/L (46-116) C-Reactive Protein, Quantitative 11.4 mg/dL (0.00-0.90) H Pro-B-Type Natriuretic Peptide 2259 pg/mL (0-125) H Total Protein 6.3 G/DL (6.4-8.2) L Albumin 2.3 G/DL (3.4-5.0) L Globulin 4.0 g/dL Albumin/Globulin Ratio 0.6 (1.0-2.7) L Current Medications Medications (Trade) Dose Ordered Sig/Wilner Route PRN Reason Start Time Stop Time Status Last Admin Dose Admin Acetaminophen (Tylenol) 650 mg Q4H PRN ORAL FEVER 02/25/17 15:15 03/27/17 15:14 02/26/17 16:37 Albuterol/ Ipratropium (DuoNeb 0.5-3(2.5)mg/3ml) 3 ml Q4HR PRN HHN SHORTNESS OF BREATH 02/25/17 15:15 03/02/17 15:14 Allopurinol (Allopurinol) 300 mg DAILY ORAL 02/26/17 09:00 03/26/17 12:59 02/27/17 08:44 Aspirin (Ecotrin) 81 mg DAILY ORAL 02/26/17 09:00 03/19/17 08:59 02/27/17 08:45 Bisacodyl (Dulcolax) 10 mg DAILYPRN PRN RECTAL Constipation Third Line Agent 02/25/17 15:15 03/27/17 15:14 Carvedilol (Coreg) 6.25 mg Q12HR ORAL 02/25/17 21:00 03/25/17 20:59 02/27/17 08:45 Dextrose (Dextrose 50%) STAT PRN IV Hypoglycemia 02/25/17 15:15 03/17/17 15:14 Escitalopram Oxalate (Lexapro) 10 mg DAILY ORAL 02/26/17 09:00 03/20/17 08:59 02/27/17 08:45 Fentanyl Citrate 1000 mcg/Sodium Chloride 100 ml @ 0 mls/hr Q24H IV 02/26/17 12:00 03/05/17 11:59 02/26/17 12:50 Haloperidol Lactate (Haldol) 2 mg Q4H PRN IM Agitation 02/25/17 15:15 03/27/17 15:14 02/25/17 22:38 Hydralazine HCl (Apresoline) 25 mg Q4H PRN ORAL SBP > 160mmHg 02/25/17 15:15 03/27/17 15:14 02/26/17 00:09 Levalbuterol HCl (Xopenex) 1.25 mg Q4H PRN HHN Bronchospasm 02/25/17 15:15 03/02/17 15:14 Lidocaine (Xylocaine 1% MPF 5ml) 10 ml Q4H PRN HHN cough 02/25/17 15:15 03/19/17 15:14 Lisinopril (Prinivil) 20 mg BID ORAL 02/25/17 18:00 03/27/17 17:59 02/27/17 08:51 Lorazepam (Ativan 2mg/ml 1ml) 2 mg Q4H PRN IV For Anxiety 02/26/17 11:00 03/05/17 10:59 02/27/17 13:47 Meropenem 1 gm/ Sodium Chloride 110 ml @ 220 mls/hr Q12HR IVPB 02/25/17 21:00 03/03/17 23:59 02/27/17 08:44 Morphine Sulfate (Morphine Sulfate) 4 mg Q4H PRN IVP Breakthrough Pain 02/26/17 11:00 03/05/17 10:59 02/27/17 01:01 Ondansetron HCl (Zofran) 4 mg Q6H PRN IVP Nausea & Vomiting 02/25/17 15:15 03/17/17 15:14 Pantoprazole (Protonix) 40 mg DAILY IV 02/27/17 09:00 03/29/17 08:59 02/27/17 08:43 Phosphorus (Phospha 250 Neutral) 500 mg THREE TIMES A DAY NG 02/27/17 10:00 03/29/17 09:59 02/27/17 13:11 Polyethylene Glycol (Miralax) 17 gm DAILYPRN PRN ORAL Constipation First line agent 02/25/17 15:15 03/17/17 15:14 Potassium Chloride 100 ml @ 100 mls/hr Q1H IVPB 02/27/17 12:00 02/27/17 14:59 02/27/17 13:07 Pravastatin Sodium (Pravachol) 20 mg BEDTIME ORAL 02/25/17 21:00 03/18/17 20:59 02/26/17 21:20 Prednisone (predniSONE) 40 mg DAILY ORAL 02/26/17 09:00 03/28/17 08:59 02/27/17 08:49 Pregabalin (Lyrica) 150 mg THREE TIMES A DAY ORAL 02/25/17 18:00 03/18/17 12:59 02/27/17 13:12 Promethazine HCl/ Codeine (Phenergan with Codeine) 5 ml Q4H PRN ORAL UNRELIEVED COUGH 02/25/17 15:15 03/18/17 15:14 Ranitidine HCl (Zantac) 150 mg QPM ORAL 02/25/17 16:30 03/27/17 16:29 02/26/17 16:37 Vancomycin HCl (Vanco rx to dose) 1 ea DAILY PRN MISC PER RX PROTOCOL 02/26/17 09:00 03/18/17 07:44 Vancomycin HCl 1 gm/Dextrose 250 ml @ 166.667 mls/hr Q24H IVPB 02/26/17 22:00 03/03/17 21:59 02/26/17 22:07 ORLANDO RODRIGUEZ M.D. Feb 27, 2017 14:21
--- NOTE | 2017-02-27 14:59 | General Progress Note ---
Assessment/Plan Status: stable - from renal stand Assessment/Plan Status: Acute renal failure- etiology? 1900 cc urine out after insertion of shi--JOSE MIGUEL: Moderate right hydronephrosis. Acute on Chronic respiratory failure- day 2 intubation HTN High Cholestrol Pneumonia COPD , exac. Diastolic CHF, Mod MR h/o C dif colitis h/o Breast Ca Anemia Pulm HTN Moderate Plan: K and Phos support pulm support adjust BP meds- Change steroids to po and aim to taper K supplement- as needed Allopurinol continue Shi- Avoid nephrotoxics JOSE MIGUEL: Moderate right hydronephrosis. Subjective ROS Limited/Unobtainable: Yes Allergies: Coded Allergies: TETRACYCLINE (Unverified Allergy, Unknown, 07/24/14) Objective Last 24 Hour Vital Signs Date Time Temp Pulse Resp B/P (MAP) Pulse Ox O2 Delivery O2 Flow Rate FiO2 02/27/17 14:42 87 16 50 02/27/17 14:30 82 16 122/58 97 Mechanical Ventilator 50 02/27/17 14:00 86 16 167/79 97 Mechanical Ventilator 50 02/27/17 13:30 88 18 171/73 98 Mechanical Ventilator 50 02/27/17 13:00 92 16 170/68 97 Mechanical Ventilator 50 02/27/17 13:00 17 02/27/17 12:41 95 19 50 02/27/17 12:30 97 17 153/69 97 Mechanical Ventilator 50 02/27/17 12:01 99.0 98 17 136/65 97 Mechanical Ventilator 50 02/27/17 12:00 98 02/27/17 12:00 50 02/27/17 12:00 21 02/27/17 11:30 97 21 146/66 97 Mechanical Ventilator 50 02/27/17 11:00 88 18 50 02/27/17 11:00 99 19 153/66 97 Mechanical Ventilator 50 02/27/17 11:00 24 02/27/17 10:30 105 21 150/94 98 Mechanical Ventilator 50 02/27/17 10:00 24 02/27/17 10:00 100 18 128/63 97 Mechanical Ventilator 50 02/27/17 09:29 86 20 50 02/27/17 09:00 106 17 147/72 96 Mechanical Ventilator 50 02/27/17 09:00 25 02/27/17 08:51 127/95 02/27/17 08:45 98 127/95 02/27/17 08:30 107 25 130/62 96 Mechanical Ventilator 50 02/27/17 08:00 96 02/27/17 08:00 50 02/27/17 08:00 97.9 106 20 108/65 98 Mechanical Ventilator 50 02/27/17 08:00 20 02/27/17 07:30 97.9 107 21 145/55 98 Mechanical Ventilator 50 02/27/17 07:08 98 19 50 02/27/17 07:00 17 02/27/17 07:00 87 16 127/55 98 Mechanical Ventilator 50 02/27/17 06:30 89 16 130/47 98 Mechanical Ventilator 50 02/27/17 06:00 16 02/27/17 06:00 91 16 115/48 98 Mechanical Ventilator 50 02/27/17 05:30 93 16 133/58 98 Mechanical Ventilator 50 02/27/17 05:05 95 17 50 02/27/17 05:00 17 02/27/17 05:00 92 16 120/68 99 Mechanical Ventilator 50 02/27/17 05:00 100 20 150/65 96 Mechanical Ventilator 50 02/27/17 04:30 95 17 156/83 99 Mechanical Ventilator 50 02/27/17 04:00 89 02/27/17 04:00 16 02/27/17 04:00 91 16 162/105 98 Mechanical Ventilator 50 02/27/17 03:30 90 16 147/68 99 Mechanical Ventilator 50 02/27/17 03:02 101 27 50 02/27/17 03:00 100 20 164/77 97 Mechanical Ventilator 50 02/27/17 03:00 17 02/27/17 02:30 89 16 136/72 98 Mechanical Ventilator 50 02/27/17 02:00 16 02/27/17 02:00 91 16 151/66 98 Mechanical Ventilator 50 02/27/17 01:30 100 20 150/65 96 Mechanical Ventilator 50 02/27/17 01:11 104 26 50 02/27/17 01:00 100 20 129/58 95 Mechanical Ventilator 50 02/27/17 01:00 17 02/27/17 00:30 88 17 138/73 96 Mechanical Ventilator 50 02/27/17 00:00 84 02/27/17 00:00 16 02/27/17 00:00 87 16 147/58 96 Mechanical Ventilator 50 02/26/17 23:30 85 16 144/53 97 Mechanical Ventilator 50 02/26/17 23:09 92 16 50 02/26/17 23:00 91 17 127/57 98 Mechanical Ventilator 50 02/26/17 23:00 17 02/26/17 22:30 94 16 134/55 97 Mechanical Ventilator 50 02/26/17 22:00 16 02/26/17 22:00 83 16 120/42 98 Mechanical Ventilator 50 02/26/17 21:30 85 16 107/50 98 Mechanical Ventilator 50 02/26/17 21:20 87 102/46 02/26/17 21:13 87 16 50 02/26/17 21:00 86 16 104/50 97 Mechanical Ventilator 50 02/26/17 21:00 16 02/26/17 20:30 87 16 102/46 97 Mechanical Ventilator 50 02/26/17 20:00 91 02/26/17 20:00 16 02/26/17 20:00 88 16 152/64 97 Mechanical Ventilator 50 02/26/17 19:30 91 16 159/89 97 Mechanical Ventilator 50 02/26/17 19:22 75 16 50 02/26/17 19:00 74 16 113/44 98 Mechanical Ventilator 50 02/26/17 19:00 18 02/26/17 18:30 79 16 124/46 98 Mechanical Ventilator 50 02/26/17 18:00 98.0 79 16 89/45 97 Mechanical Ventilator 50 02/26/17 18:00 18 02/26/17 18:00 100/43 02/26/17 17:36 98.0 02/26/17 17:30 83 16 100/43 97 Mechanical Ventilator 50 02/26/17 17:20 91 15 50 02/26/17 17:00 94 20 100/52 98 Mechanical Ventilator 50 02/26/17 17:00 20 02/26/17 16:30 101.2 99 19 118/59 99 Mechanical Ventilator 50 02/26/17 16:00 101 19 125/59 100 Mechanical Ventilator 50 02/26/17 16:00 104 02/26/17 16:00 20 02/26/17 16:00 50 02/26/17 15:41 50 02/26/17 15:30 100 22 124/66 100 Mechanical Ventilator 75 02/26/17 15:20 101 20 75 02/26/17 15:00 97 22 133/66 100 Mechanical Ventilator 75 02/26/17 15:00 16 Intake and Output 02/27/17 02/28/17 19:00 07:00 Intake Total 360 ml Output Total 266 ml Balance 94 ml IV Total 140 ml Tube Feeding 30 ml Blood Product 130 ml Other 60 ml Output Urine Total 266 ml # Bowel Movements 2 Laboratory Tests 02/26/17 15:30: Arterial Blood pH 7.570*H, Arterial Blood Partial Pressure CO2 34.8L, Arterial Blood Partial Pressure O2 181.4H, Arterial Blood HCO3 31.7H, Arterial Blood Oxygen Saturation 99.8H, Arterial Blood Base Excess 9.3, Scooby Test Positive 02/26/17 20:10: Alpha Fetoprotein 2.2, Vancomycin Level Trough 12.6H 02/27/17 04:50: White Blood Count 13.8H, Red Blood Count 3.17L, Hemoglobin 10.2L, Hematocrit 31.8L, Mean Corpuscular Volume 100H, Mean Corpuscular Hemoglobin 32.2H, Mean Corpuscular Hemoglobin Concent 32.1, Red Cell Distribution Width 11.5L, Platelet Count 286, Mean Platelet Volume 7.2, Neutrophils (%) (Auto) 77.8H, Lymphocytes (%) (Auto) 14.6L, Monocytes (%) (Auto) 6.6, Eosinophils (%) (Auto) 0.8, Basophils (%) (Auto) 0.2, Sodium Level 144, Potassium Level 2.8L, Chloride Level 101, Carbon Dioxide Level 32, Anion Gap 10, Blood Urea Nitrogen 33H, Creatinine 0.7, Estimat Glomerular Filtration Rate , Glucose Level 125H, Uric Acid 4.2, Calcium Level 9.6, Phosphorus Level 1.9L, Magnesium Level 2.0, Total Bilirubin 0.9, Aspartate Amino Transf (AST/SGOT) 21, Alanine Aminotransferase ( ALT/SGPT) 11L, Alkaline Phosphatase 48, C-Reactive Protein, Quantitative 11.4H, Pro-B-Type Natriuretic Peptide 2259H, Total Protein 6.3L, Albumin 2.3L, Globulin 4.0, Albumin/Globulin Ratio 0.6L 02/27/17 08:15: Arterial Blood pH 7.714*H, Arterial Blood Partial Pressure CO2 23.4*L, Arterial Blood Partial Pressure O2 175.5H, Arterial Blood HCO3 29.2H, Arterial Blood Oxygen Saturation 99.5H, Arterial Blood Base Excess 9.8, Scooby Test Positive Height (Feet): 5 Height (Inches): 7.00 Weight (Pounds): 119 General Appearance: no apparent distress, other - intubated EENT: other - intubated Cardiovascular: tachycardia Respiratory/Chest: decreased breath sounds Abdomen: soft Objective no edema GENARO DUARTE Feb 27, 2017 14:59
--- NOTE | 2017-02-27 15:17 | Internal Med Progress Note ---
Subjective Physician Name Jun Cedillo Attending Physician Jun Cedillo MD Current Medications Medications (Trade) Dose Ordered Sig/Wilner Route PRN Reason Start Time Stop Time Status Last Admin Dose Admin Acetaminophen (Tylenol) 650 mg Q4H PRN ORAL FEVER 02/25/17 15:15 03/27/17 15:14 02/26/17 16:37 Albuterol/ Ipratropium (DuoNeb 0.5-3(2.5)mg/3ml) 3 ml Q4HR PRN HHN SHORTNESS OF BREATH 02/25/17 15:15 03/02/17 15:14 Allopurinol (Allopurinol) 300 mg DAILY ORAL 02/26/17 09:00 03/26/17 12:59 02/27/17 08:44 Aspirin (Ecotrin) 81 mg DAILY ORAL 02/26/17 09:00 03/19/17 08:59 02/27/17 08:45 Bisacodyl (Dulcolax) 10 mg DAILYPRN PRN RECTAL Constipation Third Line Agent 02/25/17 15:15 03/27/17 15:14 Carvedilol (Coreg) 6.25 mg Q12HR ORAL 02/25/17 21:00 03/25/17 20:59 02/27/17 08:45 Dextrose (Dextrose 50%) STAT PRN IV Hypoglycemia 02/25/17 15:15 03/17/17 15:14 Escitalopram Oxalate (Lexapro) 10 mg DAILY ORAL 02/26/17 09:00 03/20/17 08:59 02/27/17 08:45 Fentanyl Citrate 1000 mcg/Sodium Chloride 100 ml @ 0 mls/hr Q24H IV 02/26/17 12:00 03/05/17 11:59 02/26/17 12:50 Haloperidol Lactate (Haldol) 2 mg Q4H PRN IM Agitation 02/25/17 15:15 03/27/17 15:14 02/25/17 22:38 Hydralazine HCl (Apresoline) 25 mg Q4H PRN ORAL SBP > 160mmHg 02/25/17 15:15 03/27/17 15:14 02/26/17 00:09 Levalbuterol HCl (Xopenex) 1.25 mg Q4H PRN HHN Bronchospasm 02/25/17 15:15 03/02/17 15:14 Lidocaine (Xylocaine 1% MPF 5ml) 10 ml Q4H PRN HHN cough 02/25/17 15:15 03/19/17 15:14 Lisinopril (Prinivil) 20 mg BID ORAL 02/25/17 18:00 03/27/17 17:59 02/27/17 08:51 Lorazepam (Ativan 2mg/ml 1ml) 2 mg Q4H PRN IV For Anxiety 02/26/17 11:00 03/05/17 10:59 02/27/17 13:47 Meropenem 1 gm/ Sodium Chloride 110 ml @ 220 mls/hr Q12HR IVPB 02/25/17 21:00 03/03/17 23:59 02/27/17 08:44 Morphine Sulfate (Morphine Sulfate) 4 mg Q4H PRN IVP Breakthrough Pain 02/26/17 11:00 03/05/17 10:59 02/27/17 01:01 Ondansetron HCl (Zofran) 4 mg Q6H PRN IVP Nausea & Vomiting 02/25/17 15:15 03/17/17 15:14 Pantoprazole (Protonix) 40 mg DAILY IV 02/27/17 09:00 03/29/17 08:59 02/27/17 08:43 Phosphorus (Phospha 250 Neutral) 500 mg THREE TIMES A DAY NG 02/27/17 10:00 03/29/17 09:59 02/27/17 13:11 Polyethylene Glycol (Miralax) 17 gm DAILYPRN PRN ORAL Constipation First line agent 02/25/17 15:15 03/17/17 15:14 Potassium Chloride 100 ml @ 100 mls/hr Q1H IVPB 02/27/17 12:00 02/27/17 14:59 02/27/17 14:33 Pravastatin Sodium (Pravachol) 20 mg BEDTIME ORAL 02/25/17 21:00 03/18/17 20:59 02/26/17 21:20 Prednisone (predniSONE) 40 mg DAILY ORAL 02/26/17 09:00 03/28/17 08:59 02/27/17 08:49 Pregabalin (Lyrica) 150 mg THREE TIMES A DAY ORAL 02/25/17 18:00 03/18/17 12:59 02/27/17 13:12 Promethazine HCl/ Codeine (Phenergan with Codeine) 5 ml Q4H PRN ORAL UNRELIEVED COUGH 02/25/17 15:15 03/18/17 15:14 Ranitidine HCl (Zantac) 150 mg QPM ORAL 02/25/17 16:30 03/27/17 16:29 02/26/17 16:37 Vancomycin HCl (Vanco rx to dose) 1 ea DAILY PRN MISC PER RX PROTOCOL 02/26/17 09:00 03/18/17 07:44 Vancomycin HCl 1 gm/Dextrose 250 ml @ 166.667 mls/hr Q24H IVPB 02/26/17 22:00 03/03/17 21:59 02/26/17 22:07 Allergies: Coded Allergies: TETRACYCLINE (Unverified Allergy, Unknown, 07/24/14) Subjective awake, alert, responsive, intubated in ICU Objective Last Vital Signs Date Time Temp Pulse Resp B/P (MAP) Pulse Ox O2 Delivery O2 Flow Rate FiO2 02/27/17 14:30 82 16 122/58 97 Mechanical Ventilator 50 02/27/17 12:01 99.0 02/26/17 06:45 15.0 Laboratory Tests Test 02/26/17 15:30 02/26/17 20:10 02/27/17 04:50 02/27/17 08:15 Arterial Blood pH 7.570 (7.350-7.450) 7.714 (7.350-7.450) Arterial Blood Partial Pressure CO2 34.8 mmHg (35.0-45.0) L 23.4 mmHg (35.0-45.0) *L Arterial Blood Partial Pressure O2 181.4 mmHg (75.0-100.0) H 175.5 mmHg (75.0-100.0) H Arterial Blood HCO3 31.7 mmol/L (22.0-26.0) H 29.2 mmol/L (22.0-26.0) H Arterial Blood Oxygen Saturation 99.8 % (92.0-98.0) H 99.5 % (92.0-98.0) H Arterial Blood Base Excess 9.3 9.8 Scooby Test Positive Positive Alpha Fetoprotein 2.2 ng/mL (0.0-8.3) Vancomycin Level Trough 12.6 ug/mL (5.0-12.0) H White Blood Count 13.8 K/UL (4.8-10.8) H Red Blood Count 3.17 M/UL (4.20-5.40) L Hemoglobin 10.2 G/DL (12.0-16.0) L Hematocrit 31.8 % (37.0-47.0) L Mean Corpuscular Volume 100 FL (80-99) H Mean Corpuscular Hemoglobin 32.2 PG (27.0-31.0) H Mean Corpuscular Hemoglobin Concent 32.1 G/DL (32.0-36.0) Red Cell Distribution Width 11.5 % (11.6-14.8) L Platelet Count 286 K/UL (150-450) Mean Platelet Volume 7.2 FL (6.5-10.1) Neutrophils (%) (Auto) 77.8 % (45.0-75.0) H Lymphocytes (%) (Auto) 14.6 % (20.0-45.0) L Monocytes (%) (Auto) 6.6 % (1.0-10.0) Eosinophils (%) (Auto) 0.8 % (0.0-3.0) Basophils (%) (Auto) 0.2 % (0.0-2.0) Sodium Level 144 MMOL/L (136-145) Potassium Level 2.8 MMOL/L (3.5-5.1) L Chloride Level 101 MMOL/L (98-107) Carbon Dioxide Level 32 MMOL/L (21-32) Anion Gap 10 mmol/L (5-15) Blood Urea Nitrogen 33 mg/dL (7-18) H Creatinine 0.7 MG/DL (0.55-1.30) Estimat Glomerular Filtration Rate mL/min (>60) Glucose Level 125 MG/DL (74-106) H Uric Acid 4.2 MG/DL (2.6-7.2) Calcium Level 9.6 MG/DL (8.5-10.1) Phosphorus Level 1.9 MG/DL (2.5-4.9) L Magnesium Level 2.0 MG/DL (1.8-2.4) Total Bilirubin 0.9 MG/DL (0.2-1.0) Aspartate Amino Transf (AST/SGOT) 21 U/L (15-37) Alanine Aminotransferase (ALT/SGPT) 11 U/L (12-78) L Alkaline Phosphatase 48 U/L (46-116) C-Reactive Protein, Quantitative 11.4 mg/dL (0.00-0.90) H Pro-B-Type Natriuretic Peptide 2259 pg/mL (0-125) H Total Protein 6.3 G/DL (6.4-8.2) L Albumin 2.3 G/DL (3.4-5.0) L Globulin 4.0 g/dL Albumin/Globulin Ratio 0.6 (1.0-2.7) L Intake and Output 02/27/17 02/28/17 19:00 07:00 Intake Total 360 ml Output Total 266 ml Balance 94 ml IV Total 140 ml Tube Feeding 30 ml Blood Product 130 ml Other 60 ml Output Urine Total 266 ml # Bowel Movements 2 Objective General: awake and intubated HEENT: NCAT, sclera anicteric, PERRL, EOMI. ET tube, NG tube. Neck: Supple, no significant jugular venous distention, Lungs: mechanical breath sound, decrease air on bases, no Wheeze. Heart: Regular rate and rhythm, normal S1/S2, no murmur Abdomen: soft, nontender, nondistended. Morbid obesity. Extremities: No Cyanosis , clubbing or edema. Neuro: A&O x 3, Able to move all extremities Assessment/Plan Assessment/Plan 1. Acute on chronic hypoxemic Respiratory failure --> Intubated 02/26/2017. 2. Chronic obstructive pulmonary disease exacerbation. 3. Questionable pneumonia. 4. History of mitral regurgitation of significant degree. 5. History of subdural hematomas and intracranial hemorrhage. 6. History of breast cancer. 7. Anemia. 8. History of Clostridium difficile colitis. 9. History of anxiety. 10. Sinus tachycardia secondary to above. 11. HTN 12. Acute on chronic CHF with diastolic dysfunction. 13. PNA, mucous plugging. 14. Left pleural effusion r/o empyema. Plan: Prednisone 40mg Abx: Vanco IB / IV, Meropenem monitor Labs and cultures F/u cxr in AM Discuss with Dr. Hernandez On Lasix SP bronch 02/26: BAL pending Jun Cedillo MD Feb 27, 2017 15:17
[2017-02-27] MEDS: fentaNYL Citrate 1000 MCG in NS 100ml IV SCH (17:23)
--- NOTE | 2017-02-27 19:15 | Cardiology Progress Note ---
Assessment/Plan Assessment/Plan 1. Respiratory failure. 2. Chronic obstructive pulmonary disease exacerbation. 3. Questionable pneumonia. 4. History of mitral regurgitation of significant degree. 5. History of subdural hematomas and intracranial hemorrhage. 6. History of breast cancer. 7. Anemia. 8. History of Clostridium difficile colitis. 9. History of anxiety. 10. Sinus tachycardia secondary to above. 11. Htn 12. CHF acute diastolic 13. l m bronchus occlusion with debris 14. lung collapase 15 Hypotension resolved 16. alkalosis vent spport remains in icu intubated labs reviewed s/p bronch yest bp a times hisg was lwo yest tele sinus d/w rn k supplement Subjective ROS Limited/Unobtainable: Yes Subjective on vent Objective Last 24 Hour Vital Signs Date Time Temp Pulse Resp B/P (MAP) Pulse Ox O2 Delivery O2 Flow Rate FiO2 02/27/17 18:30 91 16 127/81 97 Mechanical Ventilator 50 02/27/17 18:00 102 22 139/75 98 Mechanical Ventilator 50 02/27/17 18:00 22 02/27/17 17:30 98 18 149/92 97 Mechanical Ventilator 50 02/27/17 17:23 18 02/27/17 17:23 170/90 02/27/17 17:00 99 19 170/90 98 Mechanical Ventilator 50 02/27/17 17:00 19 02/27/17 16:53 87 16 50 02/27/17 16:30 93 17 138/74 98 Mechanical Ventilator 50 02/27/17 16:00 98.8 100 18 165/102 98 Mechanical Ventilator 50 02/27/17 16:00 17 02/27/17 15:55 101 02/27/17 15:30 99 17 160/63 98 Mechanical Ventilator 50 02/27/17 15:30 27 02/27/17 15:00 17 02/27/17 15:00 88 17 160/68 98 Mechanical Ventilator 50 02/27/17 14:42 87 16 50 02/27/17 14:30 82 16 122/58 97 Mechanical Ventilator 50 02/27/17 14:00 86 16 167/79 97 Mechanical Ventilator 50 02/27/17 14:00 16 02/27/17 13:30 88 18 171/73 98 Mechanical Ventilator 50 02/27/17 13:00 92 16 170/68 97 Mechanical Ventilator 50 02/27/17 13:00 17 02/27/17 12:41 95 19 50 02/27/17 12:30 97 17 153/69 97 Mechanical Ventilator 50 02/27/17 12:01 99.0 98 17 136/65 97 Mechanical Ventilator 50 02/27/17 12:00 98 02/27/17 12:00 50 02/27/17 12:00 21 02/27/17 11:30 97 21 146/66 97 Mechanical Ventilator 50 02/27/17 11:00 88 18 50 02/27/17 11:00 99 19 153/66 97 Mechanical Ventilator 50 02/27/17 11:00 24 02/27/17 10:30 105 21 150/94 98 Mechanical Ventilator 50 02/27/17 10:00 24 02/27/17 10:00 100 18 128/63 97 Mechanical Ventilator 50 02/27/17 09:29 86 20 50 02/27/17 09:00 106 17 147/72 96 Mechanical Ventilator 50 02/27/17 09:00 25 02/27/17 08:51 127/95 02/27/17 08:45 98 127/95 02/27/17 08:30 107 25 130/62 96 Mechanical Ventilator 50 02/27/17 08:00 96 02/27/17 08:00 50 02/27/17 08:00 97.9 106 20 108/65 98 Mechanical Ventilator 50 02/27/17 08:00 20 02/27/17 07:30 97.9 107 21 145/55 98 Mechanical Ventilator 50 02/27/17 07:08 98 19 50 02/27/17 07:00 17 02/27/17 07:00 87 16 127/55 98 Mechanical Ventilator 50 02/27/17 06:30 89 16 130/47 98 Mechanical Ventilator 50 02/27/17 06:00 16 02/27/17 06:00 91 16 115/48 98 Mechanical Ventilator 50 02/27/17 05:30 93 16 133/58 98 Mechanical Ventilator 50 02/27/17 05:05 95 17 50 02/27/17 05:00 17 02/27/17 05:00 92 16 120/68 99 Mechanical Ventilator 50 02/27/17 05:00 100 20 150/65 96 Mechanical Ventilator 50 02/27/17 04:30 95 17 156/83 99 Mechanical Ventilator 50 02/27/17 04:00 89 02/27/17 04:00 16 02/27/17 04:00 91 16 162/105 98 Mechanical Ventilator 50 02/27/17 03:30 90 16 147/68 99 Mechanical Ventilator 50 02/27/17 03:02 101 27 50 02/27/17 03:00 100 20 164/77 97 Mechanical Ventilator 50 02/27/17 03:00 17 02/27/17 02:30 89 16 136/72 98 Mechanical Ventilator 50 02/27/17 02:00 16 02/27/17 02:00 91 16 151/66 98 Mechanical Ventilator 50 02/27/17 01:30 100 20 150/65 96 Mechanical Ventilator 50 02/27/17 01:11 104 26 50 02/27/17 01:00 100 20 129/58 95 Mechanical Ventilator 50 02/27/17 01:00 17 02/27/17 00:30 88 17 138/73 96 Mechanical Ventilator 50 02/27/17 00:00 84 02/27/17 00:00 16 02/27/17 00:00 87 16 147/58 96 Mechanical Ventilator 50 02/26/17 23:30 85 16 144/53 97 Mechanical Ventilator 50 02/26/17 23:09 92 16 50 02/26/17 23:00 91 17 127/57 98 Mechanical Ventilator 50 02/26/17 23:00 17 02/26/17 22:30 94 16 134/55 97 Mechanical Ventilator 50 02/26/17 22:00 16 02/26/17 22:00 83 16 120/42 98 Mechanical Ventilator 50 02/26/17 21:30 85 16 107/50 98 Mechanical Ventilator 50 02/26/17 21:20 87 102/46 02/26/17 21:13 87 16 50 02/26/17 21:00 86 16 104/50 97 Mechanical Ventilator 50 02/26/17 21:00 16 02/26/17 20:30 87 16 102/46 97 Mechanical Ventilator 50 02/26/17 20:00 91 02/26/17 20:00 16 02/26/17 20:00 88 16 152/64 97 Mechanical Ventilator 50 02/26/17 19:30 91 16 159/89 97 Mechanical Ventilator 50 02/26/17 19:22 75 16 50 General Appearance: on vent, patient on isolation Neck: supple Cardiovascular: normal rate, regular rhythm Respiratory/Chest: lungs clear, normal breath sounds Abdomen: normal bowel sounds, non tender, soft Extremities: no swelling Intake and Output 02/27/17 02/28/17 19:00 07:00 Intake Total 795 ml Output Total 426 ml Balance 369 ml IV Total 485 ml Tube Feeding 70 ml Blood Product 130 ml Other 110 ml Output Urine Total 426 ml # Bowel Movements 2 Laboratory Tests Test 02/26/17 20:10 02/27/17 04:50 02/27/17 08:15 Alpha Fetoprotein 2.2 ng/mL (0.0-8.3) Vancomycin Level Trough 12.6 ug/mL (5.0-12.0) H White Blood Count 13.8 K/UL (4.8-10.8) H Red Blood Count 3.17 M/UL (4.20-5.40) L Hemoglobin 10.2 G/DL (12.0-16.0) L Hematocrit 31.8 % (37.0-47.0) L Mean Corpuscular Volume 100 FL (80-99) H Mean Corpuscular Hemoglobin 32.2 PG (27.0-31.0) H Mean Corpuscular Hemoglobin Concent 32.1 G/DL (32.0-36.0) Red Cell Distribution Width 11.5 % (11.6-14.8) L Platelet Count 286 K/UL (150-450) Mean Platelet Volume 7.2 FL (6.5-10.1) Neutrophils (%) (Auto) 77.8 % (45.0-75.0) H Lymphocytes (%) (Auto) 14.6 % (20.0-45.0) L Monocytes (%) (Auto) 6.6 % (1.0-10.0) Eosinophils (%) (Auto) 0.8 % (0.0-3.0) Basophils (%) (Auto) 0.2 % (0.0-2.0) Sodium Level 144 MMOL/L (136-145) Potassium Level 2.8 MMOL/L (3.5-5.1) L Chloride Level 101 MMOL/L (98-107) Carbon Dioxide Level 32 MMOL/L (21-32) Anion Gap 10 mmol/L (5-15) Blood Urea Nitrogen 33 mg/dL (7-18) H Creatinine 0.7 MG/DL (0.55-1.30) Estimat Glomerular Filtration Rate mL/min (>60) Glucose Level 125 MG/DL (74-106) H Uric Acid 4.2 MG/DL (2.6-7.2) Calcium Level 9.6 MG/DL (8.5-10.1) Phosphorus Level 1.9 MG/DL (2.5-4.9) L Magnesium Level 2.0 MG/DL (1.8-2.4) Total Bilirubin 0.9 MG/DL (0.2-1.0) Aspartate Amino Transf (AST/SGOT) 21 U/L (15-37) Alanine Aminotransferase (ALT/SGPT) 11 U/L (12-78) L Alkaline Phosphatase 48 U/L (46-116) C-Reactive Protein, Quantitative 11.4 mg/dL (0.00-0.90) H Pro-B-Type Natriuretic Peptide 2259 pg/mL (0-125) H Total Protein 6.3 G/DL (6.4-8.2) L Albumin 2.3 G/DL (3.4-5.0) L Globulin 4.0 g/dL Albumin/Globulin Ratio 0.6 (1.0-2.7) L Arterial Blood pH 7.714 (7.350-7.450) Arterial Blood Partial Pressure CO2 23.4 mmHg (35.0-45.0) *L Arterial Blood Partial Pressure O2 175.5 mmHg (75.0-100.0) H Arterial Blood HCO3 29.2 mmol/L (22.0-26.0) H Arterial Blood Oxygen Saturation 99.5 % (92.0-98.0) H Arterial Blood Base Excess 9.8 Scooby Test Positive JEFFERSON ROMEO Feb 27, 2017 19:15
--- NOTE | 2017-02-27 21:52 | General Progress Note ---
Assessment/Plan Status: stable, progressing Assessment/Plan anxiety d/o' -cont current meds -provided ro/st Subjective Neurologic/Psychiatric: Reports: anxiety, depressed, emotional problems Allergies: Coded Allergies: TETRACYCLINE (Unverified Allergy, Unknown, 07/24/14) Subjective the pt os doing well much improved/ Objective Last 24 Hour Vital Signs Date Time Temp Pulse Resp B/P (MAP) Pulse Ox O2 Delivery O2 Flow Rate FiO2 02/27/17 21:00 81 18 159/72 94 Mechanical Ventilator 50 02/27/17 20:59 92 21 40 02/27/17 20:33 87 119/65 02/27/17 20:30 84 16 123/63 96 Mechanical Ventilator 50 02/27/17 20:00 88 16 149/63 97 Mechanical Ventilator 50 02/27/17 19:30 85 18 143/56 95 Mechanical Ventilator 50 02/27/17 19:23 77 16 40 02/27/17 19:00 16 02/27/17 19:00 83 16 87/44 95 Mechanical Ventilator 50 02/27/17 18:30 91 16 127/81 97 Mechanical Ventilator 50 02/27/17 18:00 102 22 139/75 98 Mechanical Ventilator 50 02/27/17 18:00 22 02/27/17 17:30 98 18 149/92 97 Mechanical Ventilator 50 02/27/17 17:23 18 02/27/17 17:23 170/90 02/27/17 17:00 99 19 170/90 98 Mechanical Ventilator 50 02/27/17 17:00 19 02/27/17 16:53 87 16 50 02/27/17 16:30 93 17 138/74 98 Mechanical Ventilator 50 02/27/17 16:00 98.8 100 18 165/102 98 Mechanical Ventilator 50 02/27/17 16:00 17 02/27/17 15:55 101 02/27/17 15:30 99 17 160/63 98 Mechanical Ventilator 50 02/27/17 15:30 27 02/27/17 15:00 17 02/27/17 15:00 88 17 160/68 98 Mechanical Ventilator 50 02/27/17 14:42 87 16 50 02/27/17 14:30 82 16 122/58 97 Mechanical Ventilator 50 02/27/17 14:00 86 16 167/79 97 Mechanical Ventilator 50 02/27/17 14:00 16 02/27/17 13:30 88 18 171/73 98 Mechanical Ventilator 50 02/27/17 13:00 92 16 170/68 97 Mechanical Ventilator 50 02/27/17 13:00 17 02/27/17 12:41 95 19 50 02/27/17 12:30 97 17 153/69 97 Mechanical Ventilator 50 02/27/17 12:01 99.0 98 17 136/65 97 Mechanical Ventilator 50 02/27/17 12:00 98 02/27/17 12:00 50 02/27/17 12:00 21 02/27/17 11:30 97 21 146/66 97 Mechanical Ventilator 50 02/27/17 11:00 88 18 50 02/27/17 11:00 99 19 153/66 97 Mechanical Ventilator 50 02/27/17 11:00 24 02/27/17 10:30 105 21 150/94 98 Mechanical Ventilator 50 02/27/17 10:00 24 02/27/17 10:00 100 18 128/63 97 Mechanical Ventilator 50 02/27/17 09:29 86 20 50 02/27/17 09:00 106 17 147/72 96 Mechanical Ventilator 50 02/27/17 09:00 25 02/27/17 08:51 127/95 02/27/17 08:45 98 127/95 02/27/17 08:30 107 25 130/62 96 Mechanical Ventilator 50 02/27/17 08:00 96 02/27/17 08:00 50 02/27/17 08:00 97.9 106 20 108/65 98 Mechanical Ventilator 50 02/27/17 08:00 20 02/27/17 07:30 97.9 107 21 145/55 98 Mechanical Ventilator 50 02/27/17 07:08 98 19 50 02/27/17 07:00 17 02/27/17 07:00 87 16 127/55 98 Mechanical Ventilator 50 02/27/17 06:30 89 16 130/47 98 Mechanical Ventilator 50 02/27/17 06:00 16 02/27/17 06:00 91 16 115/48 98 Mechanical Ventilator 50 02/27/17 05:30 93 16 133/58 98 Mechanical Ventilator 50 02/27/17 05:05 95 17 50 02/27/17 05:00 17 02/27/17 05:00 92 16 120/68 99 Mechanical Ventilator 50 02/27/17 05:00 100 20 150/65 96 Mechanical Ventilator 50 02/27/17 04:30 95 17 156/83 99 Mechanical Ventilator 50 02/27/17 04:00 89 02/27/17 04:00 16 02/27/17 04:00 91 16 162/105 98 Mechanical Ventilator 50 02/27/17 03:30 90 16 147/68 99 Mechanical Ventilator 50 02/27/17 03:02 101 27 50 02/27/17 03:00 100 20 164/77 97 Mechanical Ventilator 50 02/27/17 03:00 17 02/27/17 02:30 89 16 136/72 98 Mechanical Ventilator 50 02/27/17 02:00 16 02/27/17 02:00 91 16 151/66 98 Mechanical Ventilator 50 02/27/17 01:30 100 20 150/65 96 Mechanical Ventilator 50 02/27/17 01:11 104 26 50 02/27/17 01:00 100 20 129/58 95 Mechanical Ventilator 50 02/27/17 01:00 17 02/27/17 00:30 88 17 138/73 96 Mechanical Ventilator 50 02/27/17 00:00 84 02/27/17 00:00 16 02/27/17 00:00 87 16 147/58 96 Mechanical Ventilator 50 02/26/17 23:30 85 16 144/53 97 Mechanical Ventilator 50 02/26/17 23:09 92 16 50 02/26/17 23:00 91 17 127/57 98 Mechanical Ventilator 50 02/26/17 23:00 17 02/26/17 22:30 94 16 134/55 97 Mechanical Ventilator 50 02/26/17 22:00 16 02/26/17 22:00 83 16 120/42 98 Mechanical Ventilator 50 Intake and Output 02/27/17 02/28/17 19:00 07:00 Intake Total 815 ml 70 ml Output Total 466 ml 75 ml Balance 349 ml -5 ml IV Total 495 ml Tube Feeding 80 ml 20 ml Blood Product 130 ml Other 110 ml 50 ml Output Urine Total 466 ml 75 ml # Bowel Movements 2 Laboratory Tests 02/27/17 04:50: White Blood Count 13.8H, Red Blood Count 3.17L, Hemoglobin 10.2L, Hematocrit 31.8L, Mean Corpuscular Volume 100H, Mean Corpuscular Hemoglobin 32.2H, Mean Corpuscular Hemoglobin Concent 32.1, Red Cell Distribution Width 11.5L, Platelet Count 286, Mean Platelet Volume 7.2, Neutrophils (%) (Auto) 77.8H, Lymphocytes (%) (Auto) 14.6L, Monocytes (%) (Auto) 6.6, Eosinophils (%) (Auto) 0.8, Basophils (%) (Auto) 0.2, Sodium Level 144, Potassium Level 2.8L, Chloride Level 101, Carbon Dioxide Level 32, Anion Gap 10, Blood Urea Nitrogen 33H, Creatinine 0.7, Estimat Glomerular Filtration Rate , Glucose Level 125H, Uric Acid 4.2, Calcium Level 9.6, Phosphorus Level 1.9L, Magnesium Level 2.0, Total Bilirubin 0.9, Aspartate Amino Transf (AST/SGOT) 21, Alanine Aminotransferase ( ALT/SGPT) 11L, Alkaline Phosphatase 48, C-Reactive Protein, Quantitative 11.4H, Pro-B-Type Natriuretic Peptide 2259H, Total Protein 6.3L, Albumin 2.3L, Globulin 4.0, Albumin/Globulin Ratio 0.6L 02/27/17 08:15: Arterial Blood pH 7.714*H, Arterial Blood Partial Pressure CO2 23.4*L, Arterial Blood Partial Pressure O2 175.5H, Arterial Blood HCO3 29.2H, Arterial Blood Oxygen Saturation 99.5H, Arterial Blood Base Excess 9.8, Scooby Test Positive Height (Feet): 5 Height (Inches): 7.00 Weight (Pounds): 119 General Appearance: no apparent distress, alert, obese Neurologic: alert, oriented x 3, responsive, depressed affect Wan Stern M.D. Feb 27, 2017 21:52
[2017-02-28] VITALS (48 sets, daily range): BP systolic 81–181; BP diastolic 44–91
[2017-02-28] MEDS: fentaNYL Citrate 1000 MCG in NS 100ml IV SCH ×3 (02:47→21:57)
[2017-02-28 05:34] LABS: BASOPHILS % (AUTO) 0.1 % (0.0-2.0); EOSINOPHILS % (AUTO) 0.4 % (0.0-3.0); HEMATOCRIT 25.5 % (37.0-47.0); HEMOGLOBIN 8.4 G/DL (12.0-16.0); LYMPHOCYTES % (AUTO) 18.3 % (20.0-45.0); MEAN CORPUSCULAR VOLUME 101 FL (80-99); NEUTROPHILS % (AUTO) 73.2 % (45.0-75.0); PLATELET COUNT 246 K/UL (150-450); RED BLOOD COUNT 2.53 M/UL (4.20-5.40); RED CELL DISTRIBUTION WIDTH 11.6 % (11.6-14.8); WHITE BLOOD COUNT 9.9 K/UL (4.8-10.8)
[2017-02-28 05:51] LABS: ALANINE AMINOTRANSFERASE 13 U/L (12-78); ALBUMIN 2.1 G/DL (3.4-5.0); ALBUMIN/GLOBULIN RATIO 0.6 (1.0-2.7); ALKALINE PHOSPHATASE 38 U/L (46-116); ANION GAP 9 mmol/L (5-15); ASPARTATE AMINO TRANSFERASE 16 U/L (15-37); BILIRUBIN,TOTAL 0.5 MG/DL (0.2-1.0); BLOOD UREA NITROGEN 31 mg/dL (7-18); CALCIUM 8.9 MG/DL (8.5-10.1); CARBON DIOXIDE 31 MMOL/L (21-32); CHLORIDE 106 MMOL/L (98-107); CREATININE 0.7 MG/DL (0.55-1.30); POTASSIUM 3.3 MMOL/L (3.5-5.1); SODIUM 146 MMOL/L (136-145)
[2017-02-28] MEDS: Pantoprazole Inj IV SCH (08:29)
[2017-02-28] MEDS: Carvedilol 6.25mg Tab ORAL SCH ×2 (08:30→20:34)
[2017-02-28] MEDS: Phospha 250 Neutral tab NG SCH ×3 (08:30→17:25)
[2017-02-28] MEDS: Lisinopril 20mg tab ORAL SCH ×2 (08:35→17:24)
[2017-02-28] MEDS: Lyrica 75mg cap ORAL SCH ×3 (08:39→17:24)
[2017-02-28] MEDS: Aspirin EC 81mg tab ORAL SCH (08:41)
[2017-02-28] MEDS: Meropenem 1 GM in NS 110 ML IVPB SCH ×2 (08:41→20:33)
[2017-02-28] MEDS ORDERED: NS 275ml ONE (09:29)
--- NOTE | 2017-02-28 10:33 | Infectious Diseases Prog Note ---
Assessment/Plan Assessment/Plan A; Pneumonia COPD exacerbation Hypoxemic respiratory failure DM type II P: Continue IV Vancomycin & Meropenem Subjective ROS Limited/Unobtainable: Yes Respiratory: Reports: shortness of breath Psychiatric: Reports: anxiety Allergies: Coded Allergies: TETRACYCLINE (Unverified Allergy, Unknown, 07/24/14) Objective Vital Signs Last 24 Hour Vital Signs Date Time Temp Pulse Resp B/P (MAP) Pulse Ox O2 Delivery O2 Flow Rate FiO2 02/28/17 09:21 76 19 40 02/28/17 09:00 76 21 158/64 94 Mechanical Ventilator 40 02/28/17 08:35 148/76 02/28/17 08:30 89 19 140/82 97 Mechanical Ventilator 40 02/28/17 08:30 87 148/76 02/28/17 08:00 88 18 140/82 95 Mechanical Ventilator 40 02/28/17 07:30 98.3 95 17 176/78 95 Mechanical Ventilator 40 02/28/17 07:13 93 26 40 02/28/17 07:00 19 02/28/17 07:00 95 19 181/60 96 Mechanical Ventilator 40 02/28/17 06:30 102 17 167/90 96 Mechanical Ventilator 40 02/28/17 06:00 92 19 175/71 96 Mechanical Ventilator 40 02/28/17 06:00 19 02/28/17 05:30 69 16 124/57 96 Mechanical Ventilator 40 02/28/17 05:07 67 16 40 02/28/17 05:00 70 16 112/54 96 Mechanical Ventilator 40 02/28/17 05:00 16 02/28/17 04:30 71 16 98/45 97 Mechanical Ventilator 40 02/28/17 04:00 90 02/28/17 04:00 16 02/28/17 04:00 98.5 71 16 134/56 97 Mechanical Ventilator 40 02/28/17 03:30 70 16 102/50 96 Mechanical Ventilator 40 02/28/17 03:00 73 16 108/52 96 Mechanical Ventilator 40 02/28/17 03:00 16 02/28/17 02:47 15 02/28/17 02:37 75 16 40 02/28/17 02:30 75 16 81/44 95 Mechanical Ventilator 40 02/28/17 02:00 81 16 98/50 97 Mechanical Ventilator 40 02/28/17 02:00 16 02/28/17 01:30 94 16 131/65 97 Mechanical Ventilator 40 02/28/17 01:00 16 02/28/17 01:00 105 16 125/64 94 Mechanical Ventilator 40 02/28/17 00:30 87 16 177/89 98 Mechanical Ventilator 40 02/28/17 00:29 84 18 40 02/28/17 00:00 97.4 71 16 121/54 94 Mechanical Ventilator 40 02/28/17 00:00 16 02/27/17 23:30 73 16 119/53 94 Mechanical Ventilator 40 02/27/17 23:09 73 02/27/17 23:00 16 02/27/17 23:00 74 16 112/50 94 Mechanical Ventilator 40 02/27/17 22:33 73 16 40 02/27/17 22:30 74 16 108/47 95 Mechanical Ventilator 40 02/27/17 22:00 76 16 110/52 94 Mechanical Ventilator 40 02/27/17 22:00 16 02/27/17 21:30 80 16 108/54 94 Mechanical Ventilator 40 02/27/17 21:00 81 18 159/72 94 Mechanical Ventilator 40 02/27/17 21:00 18 02/27/17 20:59 92 21 40 02/27/17 20:33 87 119/65 02/27/17 20:30 84 16 123/63 96 Mechanical Ventilator 40 02/27/17 20:00 16 02/27/17 20:00 98.3 88 16 149/63 97 Mechanical Ventilator 40 02/27/17 19:36 84 02/27/17 19:30 85 18 143/56 95 Mechanical Ventilator 50 02/27/17 19:23 77 16 40 02/27/17 19:00 16 02/27/17 19:00 83 16 87/44 95 Mechanical Ventilator 50 02/27/17 18:30 91 16 127/81 97 Mechanical Ventilator 50 02/27/17 18:00 102 22 139/75 98 Mechanical Ventilator 50 02/27/17 18:00 22 02/27/17 17:30 98 18 149/92 97 Mechanical Ventilator 50 02/27/17 17:23 18 02/27/17 17:23 170/90 02/27/17 17:00 99 19 170/90 98 Mechanical Ventilator 50 02/27/17 17:00 19 02/27/17 16:53 87 16 50 02/27/17 16:30 93 17 138/74 98 Mechanical Ventilator 50 02/27/17 16:00 98.8 100 18 165/102 98 Mechanical Ventilator 50 02/27/17 16:00 17 02/27/17 15:55 101 02/27/17 15:30 99 17 160/63 98 Mechanical Ventilator 50 02/27/17 15:30 27 02/27/17 15:00 17 02/27/17 15:00 88 17 160/68 98 Mechanical Ventilator 50 02/27/17 14:42 87 16 50 02/27/17 14:30 82 16 122/58 97 Mechanical Ventilator 50 02/27/17 14:00 86 16 167/79 97 Mechanical Ventilator 50 02/27/17 14:00 16 02/27/17 13:30 88 18 171/73 98 Mechanical Ventilator 50 02/27/17 13:00 92 16 170/68 97 Mechanical Ventilator 50 02/27/17 13:00 17 02/27/17 12:41 95 19 50 02/27/17 12:30 97 17 153/69 97 Mechanical Ventilator 50 02/27/17 12:01 99.0 98 17 136/65 97 Mechanical Ventilator 50 02/27/17 12:00 98 02/27/17 12:00 50 02/27/17 12:00 21 02/27/17 11:30 97 21 146/66 97 Mechanical Ventilator 50 02/27/17 11:00 88 18 50 02/27/17 11:00 99 19 153/66 97 Mechanical Ventilator 50 02/27/17 11:00 24 Height (Feet): 5 Height (Inches): 7.00 Weight (Pounds): 125 General Appearance: no acute distress HEENT: other - orally intubated Respiratory/Chest: decreased breath sounds, other - on ventilator Cardiovascular: normal rate Abdomen: soft, non tender, other - NG tube feeding Extremities: other - edema of hands Neurologic/Psychiatric: alert, responsive, other - on restraint Laboratory Tests Test 02/28/17 03:55 White Blood Count 9.9 K/UL (4.8-10.8) Red Blood Count 2.53 M/UL (4.20-5.40) L Hemoglobin 8.4 G/DL (12.0-16.0) L Hematocrit 25.5 % (37.0-47.0) L Mean Corpuscular Volume 101 FL (80-99) H Mean Corpuscular Hemoglobin 33.1 PG (27.0-31.0) H Mean Corpuscular Hemoglobin Concent 32.9 G/DL (32.0-36.0) Red Cell Distribution Width 11.6 % (11.6-14.8) Platelet Count 246 K/UL (150-450) Mean Platelet Volume 7.5 FL (6.5-10.1) Neutrophils (%) (Auto) 73.2 % (45.0-75.0) Lymphocytes (%) (Auto) 18.3 % (20.0-45.0) L Monocytes (%) (Auto) 8.0 % (1.0-10.0) Eosinophils (%) (Auto) 0.4 % (0.0-3.0) Basophils (%) (Auto) 0.1 % (0.0-2.0) Sodium Level 146 MMOL/L (136-145) H Potassium Level 3.3 MMOL/L (3.5-5.1) L Chloride Level 106 MMOL/L (98-107) Carbon Dioxide Level 31 MMOL/L (21-32) Anion Gap 9 mmol/L (5-15) Blood Urea Nitrogen 31 mg/dL (7-18) H Creatinine 0.7 MG/DL (0.55-1.30) Estimat Glomerular Filtration Rate mL/min (>60) Glucose Level 122 MG/DL (74-106) H Calcium Level 8.9 MG/DL (8.5-10.1) Total Bilirubin 0.5 MG/DL (0.2-1.0) Aspartate Amino Transf (AST/SGOT) 16 U/L (15-37) Alanine Aminotransferase (ALT/SGPT) 13 U/L (12-78) Alkaline Phosphatase 38 U/L (46-116) L Pro-B-Type Natriuretic Peptide 1717 pg/mL (0-125) H Total Protein 5.7 G/DL (6.4-8.2) L Albumin 2.1 G/DL (3.4-5.0) L Globulin 3.6 g/dL Albumin/Globulin Ratio 0.6 (1.0-2.7) L Current Medications Medications (Trade) Dose Ordered Sig/Wilner Route PRN Reason Start Time Stop Time Status Last Admin Dose Admin Acetaminophen (Tylenol) 650 mg Q4H PRN ORAL FEVER 10/18/17 15:15 03/27/17 15:14 02/26/17 16:37 Albuterol/ Ipratropium (DuoNeb 0.5-3(2.5)mg/3ml) 3 ml Q4HR PRN HHN SHORTNESS OF BREATH 02/25/17 15:15 03/02/17 15:14 Allopurinol (Allopurinol) 300 mg DAILY ORAL 02/26/17 09:00 03/26/17 12:59 02/28/17 08:31 Aspirin (Ecotrin) 81 mg DAILY ORAL 02/26/17 09:00 03/19/17 08:59 02/28/17 08:41 Bisacodyl (Dulcolax) 10 mg DAILYPRN PRN RECTAL Constipation Third Line Agent 02/25/17 15:15 03/27/17 15:14 Carvedilol (Coreg) 6.25 mg Q12HR ORAL 02/25/17 21:00 03/25/17 20:59 02/28/17 08:30 Dextrose (Dextrose 50%) STAT PRN IV Hypoglycemia 02/25/17 15:15 03/17/17 15:14 Escitalopram Oxalate (Lexapro) 10 mg DAILY ORAL 02/26/17 09:00 03/20/17 08:59 02/28/17 08:31 Fentanyl Citrate 1000 mcg/Sodium Chloride 100 ml @ 0 mls/hr Q24H IV 02/26/17 12:00 03/05/17 11:59 02/28/17 02:47 Haloperidol Lactate (Haldol) 2 mg Q4H PRN IM Agitation 02/25/17 15:15 03/27/17 15:14 02/25/17 22:38 Hydralazine HCl (Apresoline) 25 mg Q4H PRN ORAL SBP > 160mmHg 02/25/17 15:15 03/27/17 15:14 02/26/17 00:09 Levalbuterol HCl (Xopenex) 1.25 mg Q4H PRN HHN Bronchospasm 02/25/17 15:15 03/02/17 15:14 Lidocaine (Xylocaine 1% MPF 5ml) 10 ml Q4H PRN HHN cough 02/25/17 15:15 03/19/17 15:14 Lisinopril (Prinivil) 20 mg BID ORAL 02/25/17 18:00 03/27/17 17:59 02/28/17 08:35 Lorazepam (Ativan 2mg/ml 1ml) 2 mg Q4H PRN IV For Anxiety 02/26/17 11:00 03/05/17 10:59 02/27/17 13:47 Meropenem 1 gm/ Sodium Chloride 110 ml @ 220 mls/hr Q12HR IVPB 02/25/17 21:00 03/03/17 23:59 02/28/17 08:41 Morphine Sulfate (Morphine Sulfate) 4 mg Q4H PRN IVP Breakthrough Pain 02/26/17 11:00 03/05/17 10:59 02/27/17 01:01 Ondansetron HCl (Zofran) 4 mg Q6H PRN IVP Nausea & Vomiting 02/25/17 15:15 03/17/17 15:14 Pantoprazole (Protonix) 40 mg DAILY IV 02/27/17 09:00 03/29/17 08:59 02/28/17 08:29 Phosphorus (Phospha 250 Neutral) 500 mg THREE TIMES A DAY NG 02/27/17 10:00 03/29/17 09:59 02/28/17 08:30 Polyethylene Glycol (Miralax) 17 gm DAILYPRN PRN ORAL Constipation First line agent 02/25/17 15:15 03/17/17 15:14 Pravastatin Sodium (Pravachol) 20 mg BEDTIME ORAL 02/25/17 21:00 03/18/17 20:59 02/27/17 20:33 Prednisone (predniSONE) 40 mg DAILY ORAL 02/26/17 09:00 03/28/17 08:59 02/28/17 08:31 Pregabalin (Lyrica) 150 mg THREE TIMES A DAY ORAL 02/25/17 18:00 03/18/17 12:59 02/28/17 08:39 Promethazine HCl/ Codeine (Phenergan with Codeine) 5 ml Q4H PRN ORAL UNRELIEVED COUGH 02/25/17 15:15 03/18/17 15:14 Ranitidine HCl (Zantac) 150 mg QPM ORAL 02/25/17 16:30 03/27/17 16:29 02/27/17 17:24 Vancomycin HCl (Vanco rx to dose) 1 ea DAILY PRN MISC PER RX PROTOCOL 02/26/17 09:00 03/18/17 07:44 Vancomycin HCl 1 gm/Dextrose 250 ml @ 166.667 mls/hr Q24H IVPB 02/26/17 22:00 03/03/17 21:59 02/27/17 21:39 GOSIA ALBRIGHT Feb 28, 2017 10:33
[2017-02-28] MEDS: LORazepam Inj 2mg/ml 1ml IV PRN ×2 (10:34→17:22)
--- NOTE | 2017-02-28 10:56 | Internal Med Progress Note ---
Subjective Date of Service: Feb 28, 2017 Physician Name DianeZeb Attending Physician Jun Cedillo MD Current Medications Medications (Trade) Dose Ordered Sig/Wilner Route PRN Reason Start Time Stop Time Status Last Admin Dose Admin Acetaminophen (Tylenol) 650 mg Q4H PRN ORAL FEVER 02/25/17 15:15 03/27/17 15:14 02/26/17 16:37 Albuterol/ Ipratropium (DuoNeb 0.5-3(2.5)mg/3ml) 3 ml Q4HR PRN HHN SHORTNESS OF BREATH 02/25/17 15:15 03/02/17 15:14 Allopurinol (Allopurinol) 300 mg DAILY ORAL 02/26/17 09:00 03/26/17 12:59 02/28/17 08:31 Aspirin (Ecotrin) 81 mg DAILY ORAL 02/26/17 09:00 03/19/17 08:59 02/28/17 08:41 Bisacodyl (Dulcolax) 10 mg DAILYPRN PRN RECTAL Constipation Third Line Agent 02/25/17 15:15 03/27/17 15:14 Carvedilol (Coreg) 6.25 mg Q12HR ORAL 02/25/17 21:00 03/25/17 20:59 02/28/17 08:30 Dextrose (Dextrose 50%) STAT PRN IV Hypoglycemia 02/25/17 15:15 03/17/17 15:14 Escitalopram Oxalate (Lexapro) 10 mg DAILY ORAL 02/26/17 09:00 03/20/17 08:59 02/28/17 08:31 Fentanyl Citrate 1000 mcg/Sodium Chloride 100 ml @ 0 mls/hr Q24H IV 02/26/17 12:00 03/05/17 11:59 02/28/17 02:47 Haloperidol Lactate (Haldol) 2 mg Q4H PRN IM Agitation 02/25/17 15:15 03/27/17 15:14 02/25/17 22:38 Hydralazine HCl (Apresoline) 25 mg Q4H PRN ORAL SBP > 160mmHg 02/25/17 15:15 03/27/17 15:14 02/26/17 00:09 Levalbuterol HCl (Xopenex) 1.25 mg Q4H PRN HHN Bronchospasm 02/25/17 15:15 03/02/17 15:14 Lidocaine (Xylocaine 1% MPF 5ml) 10 ml Q4H PRN HHN cough 02/25/17 15:15 03/19/17 15:14 Lisinopril (Prinivil) 20 mg BID ORAL 02/25/17 18:00 03/27/17 17:59 02/28/17 08:35 Lorazepam (Ativan 2mg/ml 1ml) 2 mg Q4H PRN IV For Anxiety 02/26/17 11:00 03/05/17 10:59 02/28/17 10:34 Meropenem 1 gm/ Sodium Chloride 110 ml @ 220 mls/hr Q12HR IVPB 02/25/17 21:00 03/03/17 23:59 02/28/17 08:41 Morphine Sulfate (Morphine Sulfate) 4 mg Q4H PRN IVP Breakthrough Pain 02/26/17 11:00 03/05/17 10:59 02/27/17 01:01 Ondansetron HCl (Zofran) 4 mg Q6H PRN IVP Nausea & Vomiting 02/25/17 15:15 03/17/17 15:14 Pantoprazole (Protonix) 40 mg DAILY IV 02/27/17 09:00 03/29/17 08:59 02/28/17 08:29 Phosphorus (Phospha 250 Neutral) 500 mg THREE TIMES A DAY NG 02/27/17 10:00 03/29/17 09:59 02/28/17 08:30 Polyethylene Glycol (Miralax) 17 gm DAILYPRN PRN ORAL Constipation First line agent 02/25/17 15:15 03/17/17 15:14 Pravastatin Sodium (Pravachol) 20 mg BEDTIME ORAL 02/25/17 21:00 03/18/17 20:59 02/27/17 20:33 Prednisone (predniSONE) 40 mg DAILY ORAL 02/26/17 09:00 03/28/17 08:59 02/28/17 08:31 Pregabalin (Lyrica) 150 mg THREE TIMES A DAY ORAL 02/25/17 18:00 03/18/17 12:59 02/28/17 08:39 Promethazine HCl/ Codeine (Phenergan with Codeine) 5 ml Q4H PRN ORAL UNRELIEVED COUGH 02/25/17 15:15 03/18/17 15:14 Ranitidine HCl (Zantac) 150 mg QPM ORAL 02/25/17 16:30 03/27/17 16:29 02/27/17 17:24 Vancomycin HCl (Vanco rx to dose) 1 ea DAILY PRN MISC PER RX PROTOCOL 02/26/17 09:00 03/18/17 07:44 Vancomycin HCl 1 gm/Dextrose 250 ml @ 166.667 mls/hr Q24H IVPB 02/26/17 22:00 03/03/17 21:59 02/27/17 21:39 Allergies: Coded Allergies: TETRACYCLINE (Unverified Allergy, Unknown, 07/24/14) ROS Limited/Unobtainable: Yes Subjective 76 YO F admitted with shortness of breath. Now pneumonia. Cover for Int Med- Dr Cedillo. ICU. CT chest=occlusion left mainstem bronchus-Intubated 02/25/17. Objective Last Vital Signs Date Time Temp Pulse Resp B/P (MAP) Pulse Ox O2 Delivery O2 Flow Rate FiO2 02/28/17 09:21 76 19 40 02/28/17 09:00 158/64 94 Mechanical Ventilator 02/28/17 07:30 98.3 02/26/17 06:45 15.0 Laboratory Tests Test 02/28/17 03:55 White Blood Count 9.9 K/UL (4.8-10.8) Red Blood Count 2.53 M/UL (4.20-5.40) L Hemoglobin 8.4 G/DL (12.0-16.0) L Hematocrit 25.5 % (37.0-47.0) L Mean Corpuscular Volume 101 FL (80-99) H Mean Corpuscular Hemoglobin 33.1 PG (27.0-31.0) H Mean Corpuscular Hemoglobin Concent 32.9 G/DL (32.0-36.0) Red Cell Distribution Width 11.6 % (11.6-14.8) Platelet Count 246 K/UL (150-450) Mean Platelet Volume 7.5 FL (6.5-10.1) Neutrophils (%) (Auto) 73.2 % (45.0-75.0) Lymphocytes (%) (Auto) 18.3 % (20.0-45.0) L Monocytes (%) (Auto) 8.0 % (1.0-10.0) Eosinophils (%) (Auto) 0.4 % (0.0-3.0) Basophils (%) (Auto) 0.1 % (0.0-2.0) Sodium Level 146 MMOL/L (136-145) H Potassium Level 3.3 MMOL/L (3.5-5.1) L Chloride Level 106 MMOL/L (98-107) Carbon Dioxide Level 31 MMOL/L (21-32) Anion Gap 9 mmol/L (5-15) Blood Urea Nitrogen 31 mg/dL (7-18) H Creatinine 0.7 MG/DL (0.55-1.30) Estimat Glomerular Filtration Rate mL/min (>60) Glucose Level 122 MG/DL (74-106) H Calcium Level 8.9 MG/DL (8.5-10.1) Total Bilirubin 0.5 MG/DL (0.2-1.0) Aspartate Amino Transf (AST/SGOT) 16 U/L (15-37) Alanine Aminotransferase (ALT/SGPT) 13 U/L (12-78) Alkaline Phosphatase 38 U/L (46-116) L Pro-B-Type Natriuretic Peptide 1717 pg/mL (0-125) H Total Protein 5.7 G/DL (6.4-8.2) L Albumin 2.1 G/DL (3.4-5.0) L Globulin 3.6 g/dL Albumin/Globulin Ratio 0.6 (1.0-2.7) L Objective General Appearance: WD/WN, no apparent distress, alert EENT: PERRL/EOMI, normal ENT inspection, TMs normal Neck: non-tender, normal alignment, supple, normal inspection Cardiovascular: normal peripheral pulses, normal rate, regular rhythm, no gallop/murmur, no JVD Respiratory/Chest: Mech Vent; chest wall non-tender, respiratory distress, decreased breath sounds, crackles/rales, rhonchi - bilaterally, expiratory wheezing Abdomen: normal bowel sounds, non tender, soft, no organomegaly, no mass Extremities: normal range of motion Neurologic: 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 (8) Pneumonia Assessment & Plan: Continue Meropenem and vanco. See ID and pulmonary notes. (9) COPD exacerbation Assessment & Plan: Continue IV solumedrol and xopenex/atrovent nebs. See pulmonary note. (10) Diastolic CHF Assessment & Plan: See cardiology note. 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 S/P intubation to aerate left lung-see pulmonary note. D/W pulmonary Dr Hernandez Status: not improved ZEB FUENTES Feb 28, 2017 10:56
--- NOTE | 2017-02-28 11:35 | Diagnostic Imaging Report ---
Indication: Dyspnea Comparison: 02/27/17 A single view chest radiograph was obtained. Findings: Interstitial edema suspected and may be slightly improved. Heart is moderately enlarged. Endotracheal tube and nasogastric tubes are stable. Impression: Interstitial edema with marginal improvement since the prior day
--- NOTE | 2017-02-28 12:13 | Pulmonolgy Critical Care Note ---
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, ID Critical Care - Objective Last 24 Hour Vital Signs Date Time Temp Pulse Resp B/P (MAP) Pulse Ox O2 Delivery O2 Flow Rate FiO2 02/28/17 11:30 98.2 74 16 96/44 96 Mechanical Ventilator 40 02/28/17 11:23 72 16 40 02/28/17 11:00 74 16 108/52 96 Mechanical Ventilator 40 02/28/17 10:30 82 16 108/52 96 Mechanical Ventilator 40 02/28/17 10:00 95 19 166/71 97 Mechanical Ventilator 40 02/28/17 09:30 98.2 88 19 144/69 95 Mechanical Ventilator 40 02/28/17 09:21 76 19 40 02/28/17 09:00 76 21 158/64 94 Mechanical Ventilator 40 02/28/17 08:35 148/76 02/28/17 08:30 89 19 140/82 97 Mechanical Ventilator 40 02/28/17 08:30 87 148/76 02/28/17 08:00 88 18 140/82 95 Mechanical Ventilator 40 02/28/17 07:30 98.3 95 17 176/78 95 Mechanical Ventilator 40 02/28/17 07:13 93 26 40 02/28/17 07:00 19 02/28/17 07:00 95 19 181/60 96 Mechanical Ventilator 40 02/28/17 06:30 102 17 167/90 96 Mechanical Ventilator 40 02/28/17 06:00 92 19 175/71 96 Mechanical Ventilator 40 02/28/17 06:00 19 02/28/17 05:30 69 16 124/57 96 Mechanical Ventilator 40 02/28/17 05:07 67 16 40 02/28/17 05:00 70 16 112/54 96 Mechanical Ventilator 40 02/28/17 05:00 16 02/28/17 04:30 71 16 98/45 97 Mechanical Ventilator 40 02/28/17 04:00 90 02/28/17 04:00 16 02/28/17 04:00 98.5 71 16 134/56 97 Mechanical Ventilator 40 02/28/17 03:30 70 16 102/50 96 Mechanical Ventilator 40 02/28/17 03:00 73 16 108/52 96 Mechanical Ventilator 40 02/28/17 03:00 16 02/28/17 02:47 15 02/28/17 02:37 75 16 40 02/28/17 02:30 75 16 81/44 95 Mechanical Ventilator 40 02/28/17 02:00 81 16 98/50 97 Mechanical Ventilator 40 02/28/17 02:00 16 02/28/17 01:30 94 16 131/65 97 Mechanical Ventilator 40 02/28/17 01:00 16 02/28/17 01:00 105 16 125/64 94 Mechanical Ventilator 40 02/28/17 00:30 87 16 177/89 98 Mechanical Ventilator 40 02/28/17 00:29 84 18 40 02/28/17 00:00 97.4 71 16 121/54 94 Mechanical Ventilator 40 02/28/17 00:00 16 02/27/17 23:30 73 16 119/53 94 Mechanical Ventilator 40 02/27/17 23:09 73 02/27/17 23:00 16 02/27/17 23:00 74 16 112/50 94 Mechanical Ventilator 40 02/27/17 22:33 73 16 40 02/27/17 22:30 74 16 108/47 95 Mechanical Ventilator 40 02/27/17 22:00 76 16 110/52 94 Mechanical Ventilator 40 02/27/17 22:00 16 02/27/17 21:30 80 16 108/54 94 Mechanical Ventilator 40 02/27/17 21:00 81 18 159/72 94 Mechanical Ventilator 40 02/27/17 21:00 18 02/27/17 20:59 92 21 40 02/27/17 20:33 87 119/65 02/27/17 20:30 84 16 123/63 96 Mechanical Ventilator 40 02/27/17 20:00 16 02/27/17 20:00 98.3 88 16 149/63 97 Mechanical Ventilator 40 02/27/17 19:36 84 02/27/17 19:30 85 18 143/56 95 Mechanical Ventilator 50 02/27/17 19:23 77 16 40 02/27/17 19:00 16 02/27/17 19:00 83 16 87/44 95 Mechanical Ventilator 50 02/27/17 18:30 91 16 127/81 97 Mechanical Ventilator 50 02/27/17 18:00 102 22 139/75 98 Mechanical Ventilator 50 02/27/17 18:00 22 02/27/17 17:30 98 18 149/92 97 Mechanical Ventilator 50 02/27/17 17:23 18 02/27/17 17:23 170/90 02/27/17 17:00 99 19 170/90 98 Mechanical Ventilator 50 02/27/17 17:00 19 02/27/17 16:53 87 16 50 02/27/17 16:30 93 17 138/74 98 Mechanical Ventilator 50 02/27/17 16:00 98.8 100 18 165/102 98 Mechanical Ventilator 50 02/27/17 16:00 17 02/27/17 15:55 101 02/27/17 15:30 99 17 160/63 98 Mechanical Ventilator 50 02/27/17 15:30 27 02/27/17 15:00 17 02/27/17 15:00 88 17 160/68 98 Mechanical Ventilator 50 02/27/17 14:42 87 16 50 02/27/17 14:30 82 16 122/58 97 Mechanical Ventilator 50 02/27/17 14:00 86 16 167/79 97 Mechanical Ventilator 50 02/27/17 14:00 16 02/27/17 13:30 88 18 171/73 98 Mechanical Ventilator 50 02/27/17 13:00 92 16 170/68 97 Mechanical Ventilator 50 02/27/17 13:00 17 02/27/17 12:41 95 19 50 02/27/17 12:30 97 17 153/69 97 Mechanical Ventilator 50 Status: awake Condition: critical HEENT: atraumatic Neck: full ROM Lungs: chest wall tender Heart: HR/BP stable, regular Abdomen: non-tender, active bowel sounds Extremities: no C/C/E, edema Decubiti: location Accucheck: 124 Critical Care - Subjective ROS Limited/Unobtainable: No ICU Day: 4 Intubation Day: 4 Condition: critical EKG Rhythm: Sinus Rhythm FI02: 40 Vent Support Breath Rate: 16 Vent Support Mode: AC Vent Tidal Volume: 500 Sputum Amount: None PIP: 24 Tube Feeding Amount: 20 I&O: Intake and Output 02/28/17 03/01/17 19:00 07:00 Output Total 80 ml Balance -80 ml Output Urine Total 80 ml CXR: slightly better ET-Tube: 8.0 ET Position: 21 Labs: Laboratory Tests Test 02/28/17 03:55 White Blood Count 9.9 K/UL (4.8-10.8) Red Blood Count 2.53 M/UL (4.20-5.40) L Hemoglobin 8.4 G/DL (12.0-16.0) L Hematocrit 25.5 % (37.0-47.0) L Mean Corpuscular Volume 101 FL (80-99) H Mean Corpuscular Hemoglobin 33.1 PG (27.0-31.0) H Mean Corpuscular Hemoglobin Concent 32.9 G/DL (32.0-36.0) Red Cell Distribution Width 11.6 % (11.6-14.8) Platelet Count 246 K/UL (150-450) Mean Platelet Volume 7.5 FL (6.5-10.1) Neutrophils (%) (Auto) 73.2 % (45.0-75.0) Lymphocytes (%) (Auto) 18.3 % (20.0-45.0) L Monocytes (%) (Auto) 8.0 % (1.0-10.0) Eosinophils (%) (Auto) 0.4 % (0.0-3.0) Basophils (%) (Auto) 0.1 % (0.0-2.0) Sodium Level 146 MMOL/L (136-145) H Potassium Level 3.3 MMOL/L (3.5-5.1) L Chloride Level 106 MMOL/L (98-107) Carbon Dioxide Level 31 MMOL/L (21-32) Anion Gap 9 mmol/L (5-15) Blood Urea Nitrogen 31 mg/dL (7-18) H Creatinine 0.7 MG/DL (0.55-1.30) Estimat Glomerular Filtration Rate mL/min (>60) Glucose Level 122 MG/DL (74-106) H Calcium Level 8.9 MG/DL (8.5-10.1) Total Bilirubin 0.5 MG/DL (0.2-1.0) Aspartate Amino Transf (AST/SGOT) 16 U/L (15-37) Alanine Aminotransferase (ALT/SGPT) 13 U/L (12-78) Alkaline Phosphatase 38 U/L (46-116) L Pro-B-Type Natriuretic Peptide 1717 pg/mL (0-125) H Total Protein 5.7 G/DL (6.4-8.2) L Albumin 2.1 G/DL (3.4-5.0) L Globulin 3.6 g/dL Albumin/Globulin Ratio 0.6 (1.0-2.7) L TWIN FONTANEZ Feb 28, 2017 12:13
[2017-02-28] MEDS ORDERED: KCl 10% 40mEq/30ml liquid NG ONE (12:30)
[2017-02-28] MEDS: Metoclopramide 10mg/2ml Inj IVP SCH ×2 (13:15→20:33)
--- NOTE | 2017-02-28 14:18 | General Progress Note ---
Assessment/Plan Status: stable Assessment/Plan Status: Acute renal failure- etiology? 1900 cc urine out after insertion of shi--JOSE MIGUEL: Moderate right hydronephrosis. Acute on Chronic respiratory failure- day 2 intubation HTN High Cholestrol Pneumonia COPD , exac. Diastolic CHF, Mod MR h/o C dif colitis h/o Breast Ca Anemia Pulm HTN Moderate Plan: K and Phos support pulm support adjust BP meds- Change steroids to po and aim to taper K supplement- as needed Allopurinol continue Shi- Avoid nephrotoxics JOSE MIGUEL: Moderate right hydronephrosis. Subjective ROS Limited/Unobtainable: No Allergies: Coded Allergies: TETRACYCLINE (Unverified Allergy, Unknown, 07/24/14) Objective Last 24 Hour Vital Signs Date Time Temp Pulse Resp B/P (MAP) Pulse Ox O2 Delivery O2 Flow Rate FiO2 02/28/17 12:52 66 16 40 02/28/17 11:30 98.2 74 16 96/44 96 Mechanical Ventilator 40 02/28/17 11:23 72 16 40 02/28/17 11:00 74 16 108/52 96 Mechanical Ventilator 40 02/28/17 10:30 82 16 108/52 96 Mechanical Ventilator 40 02/28/17 10:00 95 19 166/71 97 Mechanical Ventilator 40 02/28/17 09:30 98.2 88 19 144/69 95 Mechanical Ventilator 40 02/28/17 09:21 76 19 40 02/28/17 09:00 76 21 158/64 94 Mechanical Ventilator 40 02/28/17 08:35 148/76 02/28/17 08:30 89 19 140/82 97 Mechanical Ventilator 40 02/28/17 08:30 87 148/76 02/28/17 08:00 88 18 140/82 95 Mechanical Ventilator 40 02/28/17 07:30 98.3 95 17 176/78 95 Mechanical Ventilator 40 02/28/17 07:13 93 26 40 02/28/17 07:00 19 02/28/17 07:00 95 19 181/60 96 Mechanical Ventilator 40 02/28/17 06:30 102 17 167/90 96 Mechanical Ventilator 40 02/28/17 06:00 92 19 175/71 96 Mechanical Ventilator 40 02/28/17 06:00 19 02/28/17 05:30 69 16 124/57 96 Mechanical Ventilator 40 02/28/17 05:07 67 16 40 02/28/17 05:00 70 16 112/54 96 Mechanical Ventilator 40 02/28/17 05:00 16 02/28/17 04:30 71 16 98/45 97 Mechanical Ventilator 40 02/28/17 04:00 90 02/28/17 04:00 16 02/28/17 04:00 98.5 71 16 134/56 97 Mechanical Ventilator 40 02/28/17 03:30 70 16 102/50 96 Mechanical Ventilator 40 02/28/17 03:00 73 16 108/52 96 Mechanical Ventilator 40 02/28/17 03:00 16 02/28/17 02:47 15 02/28/17 02:37 75 16 40 02/28/17 02:30 75 16 81/44 95 Mechanical Ventilator 40 02/28/17 02:00 81 16 98/50 97 Mechanical Ventilator 40 02/28/17 02:00 16 02/28/17 01:30 94 16 131/65 97 Mechanical Ventilator 40 02/28/17 01:00 16 02/28/17 01:00 105 16 125/64 94 Mechanical Ventilator 40 02/28/17 00:30 87 16 177/89 98 Mechanical Ventilator 40 02/28/17 00:29 84 18 40 02/28/17 00:00 97.4 71 16 121/54 94 Mechanical Ventilator 40 02/28/17 00:00 16 02/27/17 23:30 73 16 119/53 94 Mechanical Ventilator 40 02/27/17 23:09 73 02/27/17 23:00 16 02/27/17 23:00 74 16 112/50 94 Mechanical Ventilator 40 02/27/17 22:33 73 16 40 02/27/17 22:30 74 16 108/47 95 Mechanical Ventilator 40 02/27/17 22:00 76 16 110/52 94 Mechanical Ventilator 40 02/27/17 22:00 16 02/27/17 21:30 80 16 108/54 94 Mechanical Ventilator 40 02/27/17 21:00 81 18 159/72 94 Mechanical Ventilator 40 02/27/17 21:00 18 02/27/17 20:59 92 21 40 02/27/17 20:33 87 119/65 02/27/17 20:30 84 16 123/63 96 Mechanical Ventilator 40 02/27/17 20:00 16 02/27/17 20:00 98.3 88 16 149/63 97 Mechanical Ventilator 40 02/27/17 19:36 84 02/27/17 19:30 85 18 143/56 95 Mechanical Ventilator 50 02/27/17 19:23 77 16 40 02/27/17 19:00 16 02/27/17 19:00 83 16 87/44 95 Mechanical Ventilator 50 02/27/17 18:30 91 16 127/81 97 Mechanical Ventilator 50 02/27/17 18:00 102 22 139/75 98 Mechanical Ventilator 50 02/27/17 18:00 22 02/27/17 17:30 98 18 149/92 97 Mechanical Ventilator 50 02/27/17 17:23 18 02/27/17 17:23 170/90 02/27/17 17:00 99 19 170/90 98 Mechanical Ventilator 50 02/27/17 17:00 19 02/27/17 16:53 87 16 50 02/27/17 16:30 93 17 138/74 98 Mechanical Ventilator 50 02/27/17 16:00 98.8 100 18 165/102 98 Mechanical Ventilator 50 02/27/17 16:00 17 02/27/17 15:55 101 02/27/17 15:30 99 17 160/63 98 Mechanical Ventilator 50 02/27/17 15:30 27 02/27/17 15:00 17 02/27/17 15:00 88 17 160/68 98 Mechanical Ventilator 50 02/27/17 14:42 87 16 50 02/27/17 14:30 82 16 122/58 97 Mechanical Ventilator 50 Intake and Output 02/28/17 03/01/17 19:00 07:00 Output Total 80 ml Balance -80 ml Output Urine Total 80 ml Laboratory Tests 02/28/17 03:55: White Blood Count 9.9, Red Blood Count 2.53L, Hemoglobin 8.4L, Hematocrit 25.5L , Mean Corpuscular Volume 101H, Mean Corpuscular Hemoglobin 33.1H, Mean Corpuscular Hemoglobin Concent 32.9, Red Cell Distribution Width 11.6, Platelet Count 246, Mean Platelet Volume 7.5, Neutrophils (%) (Auto) 73.2, Lymphocytes (% ) (Auto) 18.3L, Monocytes (%) (Auto) 8.0, Eosinophils (%) (Auto) 0.4, Basophils (%) (Auto) 0.1, Sodium Level 146H, Potassium Level 3.3L, Chloride Level 106, Carbon Dioxide Level 31, Anion Gap 9, Blood Urea Nitrogen 31H, Creatinine 0.7, Estimat Glomerular Filtration Rate , Glucose Level 122H, Calcium Level 8.9, Total Bilirubin 0.5, Aspartate Amino Transf (AST/SGOT) 16, Alanine Aminotransferase (ALT/SGPT) 13, Alkaline Phosphatase 38L, Pro-B-Type Natriuretic Peptide 1717H, Total Protein 5.7L, Albumin 2.1L, Globulin 3.6, Albumin/Globulin Ratio 0.6L Height (Feet): 5 Height (Inches): 7.00 Weight (Pounds): 125 General Appearance: no apparent distress Objective no edema GENARO DUARTE Feb 28, 2017 14:18
--- NOTE | 2017-02-28 17:33 | Cardiology Progress Note ---
Assessment/Plan Problem List: (1) COPD exacerbation (2) Right middle lobe pneumonia (3) Hypertension (4) Diastolic CHF Status: stable, unchanged Status Narrative Pt is hemodynamically stable, in SR, on vent for resp failure due to pneumonia and COPD She is hypertensive. Assessment/Plan Continue vent support, iv antibiotics, bronchodilators consider inc coreg for better BP control and continue lisinopril. Subjective Subjective Cardiology for Dr. Roque Pt alert, on vent. Objective Last 24 Hour Vital Signs Date Time Temp Pulse Resp B/P (MAP) Pulse Ox O2 Delivery O2 Flow Rate FiO2 02/28/17 17:24 169/88 02/28/17 17:00 88 15 169/88 98 Mechanical Ventilator 40 02/28/17 16:30 90 17 138/86 99 Mechanical Ventilator 40 02/28/17 16:00 90 18 160/91 97 Mechanical Ventilator 40 02/28/17 16:00 40 02/28/17 16:00 18 02/28/17 16:00 85 02/28/17 15:30 98.4 86 18 148/68 97 Mechanical Ventilator 40 02/28/17 15:03 88 21 40 02/28/17 15:00 83 18 148/68 98 Mechanical Ventilator 40 02/28/17 15:00 18 02/28/17 14:30 86 16 159/67 96 Mechanical Ventilator 40 02/28/17 14:20 98.2 02/28/17 14:20 98.2 02/28/17 14:17 19 02/28/17 14:00 85 19 159/67 97 Mechanical Ventilator 40 02/28/17 13:30 98.0 84 18 154/87 97 Mechanical Ventilator 40 02/28/17 13:00 16 02/28/17 13:00 69 16 157/64 97 Mechanical Ventilator 40 02/28/17 12:52 66 16 40 02/28/17 12:30 66 16 120/47 97 Mechanical Ventilator 40 02/28/17 12:00 90 02/28/17 12:00 16 02/28/17 12:00 67 16 128/45 96 Mechanical Ventilator 40 02/28/17 11:30 98.2 74 16 96/44 96 Mechanical Ventilator 40 02/28/17 11:23 72 16 40 02/28/17 11:00 16 02/28/17 11:00 74 16 108/52 96 Mechanical Ventilator 40 02/28/17 10:30 82 16 108/52 96 Mechanical Ventilator 40 02/28/17 10:00 95 19 166/71 97 Mechanical Ventilator 40 02/28/17 10:00 19 02/28/17 09:30 98.2 88 19 144/69 95 Mechanical Ventilator 40 02/28/17 09:21 76 19 40 02/28/17 09:00 76 21 158/64 94 Mechanical Ventilator 40 02/28/17 08:41 21 02/28/17 08:35 148/76 02/28/17 08:30 89 19 140/82 97 Mechanical Ventilator 40 02/28/17 08:30 87 148/76 02/28/17 08:00 88 18 140/82 95 Mechanical Ventilator 40 02/28/17 08:00 90 02/28/17 08:00 18 02/28/17 07:30 98.3 95 17 176/78 95 Mechanical Ventilator 40 02/28/17 07:13 93 26 40 02/28/17 07:00 19 02/28/17 07:00 95 19 181/60 96 Mechanical Ventilator 40 02/28/17 06:30 102 17 167/90 96 Mechanical Ventilator 40 02/28/17 06:00 92 19 175/71 96 Mechanical Ventilator 40 02/28/17 06:00 19 02/28/17 05:30 69 16 124/57 96 Mechanical Ventilator 40 02/28/17 05:07 67 16 40 02/28/17 05:00 70 16 112/54 96 Mechanical Ventilator 40 02/28/17 05:00 16 02/28/17 04:30 71 16 98/45 97 Mechanical Ventilator 40 02/28/17 04:00 90 02/28/17 04:00 16 02/28/17 04:00 98.5 71 16 134/56 97 Mechanical Ventilator 40 02/28/17 03:30 70 16 102/50 96 Mechanical Ventilator 40 02/28/17 03:00 73 16 108/52 96 Mechanical Ventilator 40 02/28/17 03:00 16 02/28/17 02:47 15 02/28/17 02:37 75 16 40 02/28/17 02:30 75 16 81/44 95 Mechanical Ventilator 40 02/28/17 02:00 81 16 98/50 97 Mechanical Ventilator 40 02/28/17 02:00 16 02/28/17 01:30 94 16 131/65 97 Mechanical Ventilator 40 02/28/17 01:00 16 02/28/17 01:00 105 16 125/64 94 Mechanical Ventilator 40 02/28/17 00:30 87 16 177/89 98 Mechanical Ventilator 40 02/28/17 00:29 84 18 40 02/28/17 00:00 97.4 71 16 121/54 94 Mechanical Ventilator 40 02/28/17 00:00 16 02/27/17 23:30 73 16 119/53 94 Mechanical Ventilator 40 02/27/17 23:09 73 02/27/17 23:00 16 02/27/17 23:00 74 16 112/50 94 Mechanical Ventilator 40 02/27/17 22:33 73 16 40 02/27/17 22:30 74 16 108/47 95 Mechanical Ventilator 40 02/27/17 22:00 76 16 110/52 94 Mechanical Ventilator 40 02/27/17 22:00 16 02/27/17 21:30 80 16 108/54 94 Mechanical Ventilator 40 02/27/17 21:00 81 18 159/72 94 Mechanical Ventilator 40 02/27/17 21:00 18 02/27/17 20:59 92 21 40 02/27/17 20:33 87 119/65 02/27/17 20:30 84 16 123/63 96 Mechanical Ventilator 40 02/27/17 20:00 16 02/27/17 20:00 98.3 88 16 149/63 97 Mechanical Ventilator 40 02/27/17 19:36 84 02/27/17 19:30 85 18 143/56 95 Mechanical Ventilator 50 02/27/17 19:23 77 16 40 02/27/17 19:00 16 02/27/17 19:00 83 16 87/44 95 Mechanical Ventilator 50 02/27/17 18:30 91 16 127/81 97 Mechanical Ventilator 50 02/27/17 18:00 102 22 139/75 98 Mechanical Ventilator 50 02/27/17 18:00 22 02/27/17 17:30 98 18 149/92 97 Mechanical Ventilator 50 General Appearance: WD/WN, obese, on vent EENT: PERRL/EOMI Neck: no JVD Rhythm: NSR Cardiovascular: normal rate, regular rhythm, no gallop/murmur Respiratory/Chest: other - dec BS bilat Abdomen: normal bowel sounds, non tender, soft Extremities: no swelling Intake and Output 02/28/17 03/01/17 19:00 07:00 Intake Total 362 ml Output Total 340 ml Balance 22 ml IV Total 182 ml Tube Feeding 180 ml Output Urine Total 340 ml Laboratory Tests Test 02/28/17 03:55 White Blood Count 9.9 K/UL (4.8-10.8) Red Blood Count 2.53 M/UL (4.20-5.40) L Hemoglobin 8.4 G/DL (12.0-16.0) L Hematocrit 25.5 % (37.0-47.0) L Mean Corpuscular Volume 101 FL (80-99) H Mean Corpuscular Hemoglobin 33.1 PG (27.0-31.0) H Mean Corpuscular Hemoglobin Concent 32.9 G/DL (32.0-36.0) Red Cell Distribution Width 11.6 % (11.6-14.8) Platelet Count 246 K/UL (150-450) Mean Platelet Volume 7.5 FL (6.5-10.1) Neutrophils (%) (Auto) 73.2 % (45.0-75.0) Lymphocytes (%) (Auto) 18.3 % (20.0-45.0) L Monocytes (%) (Auto) 8.0 % (1.0-10.0) Eosinophils (%) (Auto) 0.4 % (0.0-3.0) Basophils (%) (Auto) 0.1 % (0.0-2.0) Sodium Level 146 MMOL/L (136-145) H Potassium Level 3.3 MMOL/L (3.5-5.1) L Chloride Level 106 MMOL/L (98-107) Carbon Dioxide Level 31 MMOL/L (21-32) Anion Gap 9 mmol/L (5-15) Blood Urea Nitrogen 31 mg/dL (7-18) H Creatinine 0.7 MG/DL (0.55-1.30) Estimat Glomerular Filtration Rate mL/min (>60) Glucose Level 122 MG/DL (74-106) H Calcium Level 8.9 MG/DL (8.5-10.1) Total Bilirubin 0.5 MG/DL (0.2-1.0) Aspartate Amino Transf (AST/SGOT) 16 U/L (15-37) Alanine Aminotransferase (ALT/SGPT) 13 U/L (12-78) Alkaline Phosphatase 38 U/L (46-116) L Pro-B-Type Natriuretic Peptide 1717 pg/mL (0-125) H Total Protein 5.7 G/DL (6.4-8.2) L Albumin 2.1 G/DL (3.4-5.0) L Globulin 3.6 g/dL Albumin/Globulin Ratio 0.6 (1.0-2.7) L RYANNE ROCKWELL Feb 28, 2017 17:33
--- NOTE | 2017-02-28 23:04 | General Progress Note ---
Assessment/Plan Status: stable Assessment/Plan anxiety d/o' -cont current meds -provided ro/st Subjective Neurologic/Psychiatric: Reports: anxiety, depressed, emotional problems Allergies: Coded Allergies: TETRACYCLINE (Unverified Allergy, Unknown, 07/24/14) Subjective the pt os doing well much improved/ Objective Last 24 Hour Vital Signs Date Time Temp Pulse Resp B/P (MAP) Pulse Ox O2 Delivery O2 Flow Rate FiO2 02/28/17 21:57 16 02/28/17 20:57 81 17 40 02/28/17 20:34 70 147/54 02/28/17 19:02 79 16 40 02/28/17 19:00 16 02/28/17 19:00 79 16 104/52 97 Mechanical Ventilator 40 02/28/17 18:30 98.6 83 18 157/83 97 Mechanical Ventilator 40 02/28/17 18:23 98.6 02/28/17 18:00 16 02/28/17 18:00 87 16 157/83 98 Mechanical Ventilator 40 02/28/17 17:33 84 25 40 02/28/17 17:30 94 15 157/83 98 Mechanical Ventilator 40 02/28/17 17:24 169/88 02/28/17 17:00 88 15 169/88 98 Mechanical Ventilator 40 02/28/17 17:00 18 02/28/17 16:30 90 17 138/86 99 Mechanical Ventilator 40 02/28/17 16:00 90 18 160/91 97 Mechanical Ventilator 40 02/28/17 16:00 40 02/28/17 16:00 18 02/28/17 16:00 85 02/28/17 15:30 98.4 86 18 148/68 97 Mechanical Ventilator 40 02/28/17 15:03 88 21 40 02/28/17 15:00 83 18 148/68 98 Mechanical Ventilator 40 02/28/17 15:00 18 02/28/17 14:30 86 16 159/67 96 Mechanical Ventilator 40 02/28/17 14:20 98.2 02/28/17 14:17 19 02/28/17 14:00 85 19 159/67 97 Mechanical Ventilator 40 02/28/17 13:30 98.0 84 18 154/87 97 Mechanical Ventilator 40 02/28/17 13:00 16 02/28/17 13:00 69 16 157/64 97 Mechanical Ventilator 40 02/28/17 12:52 66 16 40 02/28/17 12:30 66 16 120/47 97 Mechanical Ventilator 40 02/28/17 12:00 90 02/28/17 12:00 16 02/28/17 12:00 67 16 128/45 96 Mechanical Ventilator 40 02/28/17 11:30 98.2 74 16 96/44 96 Mechanical Ventilator 40 02/28/17 11:23 72 16 40 02/28/17 11:00 16 02/28/17 11:00 74 16 108/52 96 Mechanical Ventilator 40 02/28/17 10:30 82 16 108/52 96 Mechanical Ventilator 40 02/28/17 10:00 95 19 166/71 97 Mechanical Ventilator 40 02/28/17 10:00 19 02/28/17 09:30 98.2 88 19 144/69 95 Mechanical Ventilator 40 02/28/17 09:21 76 19 40 02/28/17 09:00 76 21 158/64 94 Mechanical Ventilator 40 02/28/17 08:41 21 02/28/17 08:35 148/76 02/28/17 08:30 89 19 140/82 97 Mechanical Ventilator 40 02/28/17 08:30 87 148/76 02/28/17 08:00 88 18 140/82 95 Mechanical Ventilator 40 02/28/17 08:00 90 02/28/17 08:00 18 02/28/17 07:30 98.3 95 17 176/78 95 Mechanical Ventilator 40 02/28/17 07:13 93 26 40 02/28/17 07:00 19 02/28/17 07:00 95 19 181/60 96 Mechanical Ventilator 40 02/28/17 06:30 102 17 167/90 96 Mechanical Ventilator 40 02/28/17 06:00 92 19 175/71 96 Mechanical Ventilator 40 02/28/17 06:00 19 02/28/17 05:30 69 16 124/57 96 Mechanical Ventilator 40 02/28/17 05:07 67 16 40 02/28/17 05:00 70 16 112/54 96 Mechanical Ventilator 40 02/28/17 05:00 16 02/28/17 04:30 71 16 98/45 97 Mechanical Ventilator 40 02/28/17 04:00 90 02/28/17 04:00 16 02/28/17 04:00 98.5 71 16 134/56 97 Mechanical Ventilator 40 02/28/17 03:30 70 16 102/50 96 Mechanical Ventilator 40 02/28/17 03:00 73 16 108/52 96 Mechanical Ventilator 40 02/28/17 03:00 16 02/28/17 02:47 15 02/28/17 02:37 75 16 40 02/28/17 02:30 75 16 81/44 95 Mechanical Ventilator 40 02/28/17 02:00 81 16 98/50 97 Mechanical Ventilator 40 02/28/17 02:00 16 02/28/17 01:30 94 16 131/65 97 Mechanical Ventilator 40 02/28/17 01:00 16 02/28/17 01:00 105 16 125/64 94 Mechanical Ventilator 40 02/28/17 00:30 87 16 177/89 98 Mechanical Ventilator 40 02/28/17 00:29 84 18 40 02/28/17 00:00 97.4 71 16 121/54 94 Mechanical Ventilator 40 02/28/17 00:00 16 02/27/17 23:30 73 16 119/53 94 Mechanical Ventilator 40 02/27/17 23:09 73 Intake and Output 02/28/17 03/01/17 19:00 07:00 Intake Total 419 ml Output Total 410 ml Balance 9 ml IV Total 209 ml Tube Feeding 210 ml Output Urine Total 410 ml # Bowel Movements 1 Laboratory Tests 02/28/17 03:55: White Blood Count 9.9, Red Blood Count 2.53L, Hemoglobin 8.4L, Hematocrit 25.5L , Mean Corpuscular Volume 101H, Mean Corpuscular Hemoglobin 33.1H, Mean Corpuscular Hemoglobin Concent 32.9, Red Cell Distribution Width 11.6, Platelet Count 246, Mean Platelet Volume 7.5, Neutrophils (%) (Auto) 73.2, Lymphocytes (% ) (Auto) 18.3L, Monocytes (%) (Auto) 8.0, Eosinophils (%) (Auto) 0.4, Basophils (%) (Auto) 0.1, Sodium Level 146H, Potassium Level 3.3L, Chloride Level 106, Carbon Dioxide Level 31, Anion Gap 9, Blood Urea Nitrogen 31H, Creatinine 0.7, Estimat Glomerular Filtration Rate , Glucose Level 122H, Calcium Level 8.9, Total Bilirubin 0.5, Aspartate Amino Transf (AST/SGOT) 16, Alanine Aminotransferase (ALT/SGPT) 13, Alkaline Phosphatase 38L, Pro-B-Type Natriuretic Peptide 1717H, Total Protein 5.7L, Albumin 2.1L, Globulin 3.6, Albumin/Globulin Ratio 0.6L Height (Feet): 5 Height (Inches): 7.00 Weight (Pounds): 125 General Appearance: no apparent distress, alert, overweight Neurologic: alert, oriented x 3, responsive Wan Stern M.D. Feb 28, 2017 23:04
[2017-03-01] VITALS (51 sets, daily range): BP systolic 120–186; BP diastolic 47–114
[2017-03-01 04:52] LABS: BASOPHILS % (AUTO) 0.2 % (0.0-2.0); EOSINOPHILS % (AUTO) 0.2 % (0.0-3.0); HEMATOCRIT 24.6 % (37.0-47.0); HEMOGLOBIN 8.1 G/DL (12.0-16.0); LYMPHOCYTES % (AUTO) 18.5 % (20.0-45.0); MEAN CORPUSCULAR VOLUME 101 FL (80-99); MONOCYTES % (AUTO) 5.2 % (1.0-10.0); PLATELET COUNT 246 K/UL (150-450); RED BLOOD COUNT 2.44 M/UL (4.20-5.40); WHITE BLOOD COUNT 7.9 K/UL (4.8-10.8)
[2017-03-01] MEDS: Metoclopramide 10mg/2ml Inj IVP SCH ×3 (05:27→20:39)
[2017-03-01 05:28] LABS: ALANINE AMINOTRANSFERASE 14 U/L (12-78); ALBUMIN 2.2 G/DL (3.4-5.0); ALBUMIN/GLOBULIN RATIO 0.6 (1.0-2.7); ALKALINE PHOSPHATASE 39 U/L (46-116); ANION GAP 7 mmol/L (5-15); ASPARTATE AMINO TRANSFERASE 16 U/L (15-37); BILIRUBIN,TOTAL 0.5 MG/DL (0.2-1.0); BLOOD UREA NITROGEN 29 mg/dL (7-18); CALCIUM 8.7 MG/DL (8.5-10.1); CARBON DIOXIDE 30 MMOL/L (21-32); CHLORIDE 109 MMOL/L (98-107); CREATININE 0.7 MG/DL (0.55-1.30); POTASSIUM 3.5 MMOL/L (3.5-5.1); SODIUM 146 MMOL/L (136-145)
[2017-03-01] MEDS: Midazolam/D5W 100ml 100 ML IVPB SCH ×3 (05:31→18:43)
[2017-03-01] MEDS ORDERED: Sterile Water Irrig 1000ml IRRIG ONE (08:47)
[2017-03-01] MEDS ORDERED: NS 275ml ONE (08:47)
[2017-03-01] MEDS: Aspirin EC 81mg tab ORAL SCH (09:00)
[2017-03-01] MEDS: Phospha 250 Neutral tab NG SCH ×3 (09:33→17:46)
[2017-03-01] MEDS: Lyrica 75mg cap ORAL SCH ×3 (09:35→17:46)
--- NOTE | 2017-03-01 09:35 | Infectious Diseases Prog Note ---
Assessment/Plan Assessment/Plan A; Pneumonia COPD exacerbation Hypoxemic respiratory failure DM type II P: discontinue IV Vancomycin , continue Meropenem Subjective ROS Limited/Unobtainable: Yes Neurologic: Reports: other - on restraint Allergies: Coded Allergies: TETRACYCLINE (Unverified Allergy, Unknown, 07/24/14) Objective Vital Signs Last 24 Hour Vital Signs Date Time Temp Pulse Resp B/P (MAP) Pulse Ox O2 Delivery O2 Flow Rate FiO2 03/01/17 08:00 40 03/01/17 08:00 79 03/01/17 08:00 98.0 69 18 127/55 97 Mechanical Ventilator 40 03/01/17 07:00 83 18 167/79 97 Mechanical Ventilator 40 03/01/17 07:00 18 03/01/17 06:52 93 20 40 03/01/17 06:45 83 17 139/74 97 Mechanical Ventilator 40 03/01/17 06:30 94 17 163/70 97 Mechanical Ventilator 40 03/01/17 06:15 102 19 161/100 97 Mechanical Ventilator 40 03/01/17 06:00 101 17 156/90 97 Mechanical Ventilator 40 03/01/17 05:45 104 19 166/92 97 Mechanical Ventilator 40 03/01/17 05:31 16 03/01/17 05:30 106 18 186/98 97 Mechanical Ventilator 40 03/01/17 05:13 96 18 40 03/01/17 05:00 104 20 176/114 97 Mechanical Ventilator 40 03/01/17 04:30 68 16 154/60 97 Mechanical Ventilator 40 03/01/17 04:00 98.4 77 16 183/74 97 Mechanical Ventilator 40 03/01/17 04:00 16 03/01/17 03:49 68 03/01/17 03:30 68 16 146/57 97 Mechanical Ventilator 40 03/01/17 03:03 68 16 40 03/01/17 03:00 68 16 145/59 97 Mechanical Ventilator 40 03/01/17 03:00 16 03/01/17 02:30 68 16 150/62 97 Mechanical Ventilator 40 03/01/17 02:00 16 03/01/17 02:00 68 16 137/58 97 Mechanical Ventilator 40 03/01/17 01:30 69 16 125/58 97 Mechanical Ventilator 40 03/01/17 01:12 72 16 40 03/01/17 01:00 16 03/01/17 01:00 78 16 136/72 97 Mechanical Ventilator 40 03/01/17 00:30 92 17 144/73 96 Mechanical Ventilator 40 03/01/17 00:00 16 03/01/17 00:00 98.4 71 16 139/50 96 Mechanical Ventilator 40 02/28/17 23:36 71 02/28/17 23:30 71 16 138/54 96 Mechanical Ventilator 40 02/28/17 23:11 69 16 40 02/28/17 23:00 70 16 133/54 96 Mechanical Ventilator 40 02/28/17 23:00 16 02/28/17 22:30 73 16 130/53 96 Mechanical Ventilator 40 02/28/17 22:00 79 16 140/57 96 Mechanical Ventilator 40 02/28/17 21:57 16 02/28/17 21:30 79 16 132/53 97 Mechanical Ventilator 40 02/28/17 21:00 16 02/28/17 21:00 79 16 171/61 98 Mechanical Ventilator 40 02/28/17 20:57 81 17 40 02/28/17 20:34 70 147/54 02/28/17 20:30 79 16 147/54 97 Mechanical Ventilator 40 02/28/17 20:00 98.4 79 16 135/58 97 Mechanical Ventilator 40 02/28/17 20:00 16 02/28/17 19:30 79 16 128/57 96 Mechanical Ventilator 40 02/28/17 19:26 75 02/28/17 19:02 79 16 40 02/28/17 19:00 16 02/28/17 19:00 79 16 104/52 97 Mechanical Ventilator 40 02/28/17 18:30 98.6 83 18 157/83 97 Mechanical Ventilator 40 02/28/17 18:23 98.6 02/28/17 18:00 16 02/28/17 18:00 87 16 157/83 98 Mechanical Ventilator 40 02/28/17 17:33 84 25 40 02/28/17 17:30 94 15 157/83 98 Mechanical Ventilator 40 02/28/17 17:24 169/88 02/28/17 17:00 88 15 169/88 98 Mechanical Ventilator 40 02/28/17 17:00 18 02/28/17 16:30 90 17 138/86 99 Mechanical Ventilator 40 02/28/17 16:00 90 18 160/91 97 Mechanical Ventilator 40 02/28/17 16:00 40 02/28/17 16:00 18 02/28/17 16:00 85 02/28/17 15:30 98.4 86 18 148/68 97 Mechanical Ventilator 40 02/28/17 15:03 88 21 40 02/28/17 15:00 83 18 148/68 98 Mechanical Ventilator 40 02/28/17 15:00 18 02/28/17 14:30 86 16 159/67 96 Mechanical Ventilator 40 02/28/17 14:20 98.2 02/28/17 14:17 19 02/28/17 14:00 85 19 159/67 97 Mechanical Ventilator 40 02/28/17 13:30 98.0 84 18 154/87 97 Mechanical Ventilator 40 02/28/17 13:00 16 02/28/17 13:00 69 16 157/64 97 Mechanical Ventilator 40 02/28/17 12:52 66 16 40 02/28/17 12:30 66 16 120/47 97 Mechanical Ventilator 40 02/28/17 12:00 90 02/28/17 12:00 16 02/28/17 12:00 67 16 128/45 96 Mechanical Ventilator 40 02/28/17 11:30 98.2 74 16 96/44 96 Mechanical Ventilator 40 02/28/17 11:23 72 16 40 02/28/17 11:00 16 02/28/17 11:00 74 16 108/52 96 Mechanical Ventilator 40 02/28/17 10:30 82 16 108/52 96 Mechanical Ventilator 40 02/28/17 10:00 95 19 166/71 97 Mechanical Ventilator 40 02/28/17 10:00 19 Height (Feet): 5 Height (Inches): 7.00 Weight (Pounds): 114 HEENT: other - orally intubated Respiratory/Chest: lungs clear, other - on ventilator Cardiovascular: normal rate Abdomen: soft, non tender, other - Ng tube Extremities: other - edema of hands Neurologic/Psychiatric: alert Laboratory Tests Test 03/01/17 03:55 White Blood Count 7.9 K/UL (4.8-10.8) Red Blood Count 2.44 M/UL (4.20-5.40) L Hemoglobin 8.1 G/DL (12.0-16.0) L Hematocrit 24.6 % (37.0-47.0) L Mean Corpuscular Volume 101 FL (80-99) H Mean Corpuscular Hemoglobin 33.3 PG (27.0-31.0) H Mean Corpuscular Hemoglobin Concent 33.0 G/DL (32.0-36.0) Red Cell Distribution Width 12.0 % (11.6-14.8) Platelet Count 246 K/UL (150-450) Mean Platelet Volume 8.0 FL (6.5-10.1) Neutrophils (%) (Auto) 76.0 % (45.0-75.0) H Lymphocytes (%) (Auto) 18.5 % (20.0-45.0) L Monocytes (%) (Auto) 5.2 % (1.0-10.0) Eosinophils (%) (Auto) 0.2 % (0.0-3.0) Basophils (%) (Auto) 0.2 % (0.0-2.0) Sodium Level 146 MMOL/L (136-145) H Potassium Level 3.5 MMOL/L (3.5-5.1) Chloride Level 109 MMOL/L (98-107) H Carbon Dioxide Level 30 MMOL/L (21-32) Anion Gap 7 mmol/L (5-15) Blood Urea Nitrogen 29 mg/dL (7-18) H Creatinine 0.7 MG/DL (0.55-1.30) Estimat Glomerular Filtration Rate mL/min (>60) Glucose Level 131 MG/DL (74-106) H Calcium Level 8.7 MG/DL (8.5-10.1) Total Bilirubin 0.5 MG/DL (0.2-1.0) Aspartate Amino Transf (AST/SGOT) 16 U/L (15-37) Alanine Aminotransferase (ALT/SGPT) 14 U/L (12-78) Alkaline Phosphatase 39 U/L (46-116) L Pro-B-Type Natriuretic Peptide 1431 pg/mL (0-125) H Total Protein 5.9 G/DL (6.4-8.2) L Albumin 2.2 G/DL (3.4-5.0) L Globulin 3.7 g/dL Albumin/Globulin Ratio 0.6 (1.0-2.7) L Current Medications Medications (Trade) Dose Ordered Sig/Wilner Route PRN Reason Start Time Stop Time Status Last Admin Dose Admin Acetaminophen (Tylenol) 650 mg Q4H PRN ORAL FEVER 02/25/17 15:15 03/27/17 15:14 02/26/17 16:37 Albuterol/ Ipratropium (DuoNeb 0.5-3(2.5)mg/3ml) 3 ml Q4HR PRN HHN SHORTNESS OF BREATH 02/25/17 15:15 03/02/17 15:14 Allopurinol (Allopurinol) 300 mg DAILY ORAL 02/26/17 09:00 03/26/17 12:59 02/28/17 08:31 Aspirin (Ecotrin) 81 mg DAILY ORAL 02/26/17 09:00 03/19/17 08:59 02/28/17 08:41 Bisacodyl (Dulcolax) 10 mg DAILYPRN PRN RECTAL Constipation Third Line Agent 02/25/17 15:15 03/27/17 15:14 Carvedilol (Coreg) 6.25 mg Q12HR ORAL 02/25/17 21:00 03/25/17 20:59 02/28/17 20:34 Clonazepam (KlonoPIN) 1 mg DAILY ORAL 03/01/17 09:00 03/08/17 08:59 Dextrose (Dextrose 50%) STAT PRN IV Hypoglycemia 02/25/17 15:15 03/17/17 15:14 Escitalopram Oxalate (Lexapro) 10 mg DAILY ORAL 02/26/17 09:00 03/20/17 08:59 02/28/17 08:31 Haloperidol Lactate (Haldol) 2 mg Q4H PRN IM Agitation 02/25/17 15:15 03/27/17 15:14 02/25/17 22:38 Hydralazine HCl (Apresoline) 25 mg Q4H PRN ORAL SBP > 160mmHg 02/25/17 15:15 03/27/17 15:14 02/26/17 00:09 Levalbuterol HCl (Xopenex) 1.25 mg Q4H PRN HHN Bronchospasm 02/25/17 15:15 03/02/17 15:14 Lidocaine (Xylocaine 1% MPF 5ml) 10 ml Q4H PRN HHN cough 02/25/17 15:15 03/19/17 15:14 Lisinopril (Prinivil) 20 mg BID ORAL 02/25/17 18:00 03/27/17 17:59 02/28/17 17:24 Lorazepam (Ativan 2mg/ml 1ml) 2 mg Q4H PRN IV For Anxiety 02/26/17 11:00 03/05/17 10:59 02/28/17 17:22 Meropenem 1 gm/ Sodium Chloride 110 ml @ 220 mls/hr Q12HR IVPB 02/25/17 21:00 03/03/17 23:59 02/28/17 20:33 Metoclopramide HCl (Reglan) 10 mg Q8H IVP 02/28/17 12:32 03/30/17 12:31 03/01/17 05:27 Midazolam HCl 100 ml @ 0 mls/hr Q24H IVPB 03/01/17 04:00 03/08/17 03:59 03/01/17 05:31 Morphine Sulfate (Morphine Sulfate) 4 mg Q4H PRN IVP Breakthrough Pain 02/26/17 11:00 03/05/17 10:59 02/27/17 01:01 Ondansetron HCl (Zofran) 4 mg Q6H PRN IVP Nausea & Vomiting 02/25/17 15:15 03/17/17 15:14 Pantoprazole (Protonix) 40 mg DAILY IV 02/27/17 09:00 03/29/17 08:59 02/28/17 08:29 Phosphorus (Phospha 250 Neutral) 500 mg THREE TIMES A DAY NG 02/27/17 10:00 03/29/17 09:59 02/28/17 17:25 Polyethylene Glycol (Miralax) 17 gm DAILYPRN PRN ORAL Constipation First line agent 02/25/17 15:15 03/17/17 15:14 Pravastatin Sodium (Pravachol) 20 mg BEDTIME ORAL 02/25/17 21:00 03/18/17 20:59 02/28/17 20:34 Prednisone (predniSONE) 40 mg DAILY ORAL 02/26/17 09:00 03/28/17 08:59 02/28/17 08:31 Pregabalin (Lyrica) 150 mg THREE TIMES A DAY ORAL 02/25/17 18:00 03/18/17 12:59 02/28/17 17:24 Promethazine HCl/ Codeine (Phenergan with Codeine) 5 ml Q4H PRN ORAL UNRELIEVED COUGH 02/25/17 15:15 03/18/17 15:14 Ranitidine HCl (Zantac) 150 mg QPM ORAL 02/25/17 16:30 03/27/17 16:29 02/28/17 16:05 Vancomycin HCl (Vanco rx to dose) 1 ea DAILY PRN MISC PER RX PROTOCOL 02/26/17 09:00 03/18/17 07:44 Vancomycin HCl 1 gm/Dextrose 250 ml @ 166.667 mls/hr Q24H IVPB 02/26/17 22:00 03/03/17 21:59 02/28/17 21:56 GOSIA ALBRIGHT Mar 01, 2017 09:35
[2017-03-01] MEDS: Pantoprazole Inj IV SCH (09:36)
[2017-03-01] MEDS: Carvedilol 6.25mg Tab ORAL SCH ×2 (09:36→20:40)
[2017-03-01] MEDS: Meropenem 1 GM in NS 110 ML IVPB SCH ×2 (09:36→20:39)
[2017-03-01] MEDS: Lisinopril 20mg tab ORAL SCH ×2 (09:38→17:46)
--- NOTE | 2017-03-01 11:07 | Pulmonolgy Critical Care Note ---
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, 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, 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 Critical Care - Objective Last 24 Hour Vital Signs Date Time Temp Pulse Resp B/P (MAP) Pulse Ox O2 Delivery O2 Flow Rate FiO2 03/01/17 10:30 78 16 152/67 97 Mechanical Ventilator 40 03/01/17 10:00 84 18 163/71 98 Mechanical Ventilator 40 03/01/17 10:00 19 03/01/17 09:38 162/102 03/01/17 09:36 77 162/102 03/01/17 09:30 22 03/01/17 09:30 87 17 162/102 98 Mechanical Ventilator 40 03/01/17 09:28 91 20 40 03/01/17 09:00 88 17 166/96 98 Mechanical Ventilator 40 03/01/17 09:00 19 03/01/17 08:30 84 18 139/58 99 Mechanical Ventilator 40 03/01/17 08:00 40 03/01/17 08:00 79 03/01/17 08:00 18 03/01/17 08:00 98.0 69 18 127/55 97 Mechanical Ventilator 40 03/01/17 07:30 68 16 123/56 96 Mechanical Ventilator 40 03/01/17 07:00 83 18 167/79 97 Mechanical Ventilator 40 03/01/17 07:00 18 03/01/17 06:52 93 20 40 03/01/17 06:45 83 17 139/74 97 Mechanical Ventilator 40 03/01/17 06:30 94 17 163/70 97 Mechanical Ventilator 40 03/01/17 06:15 102 19 161/100 97 Mechanical Ventilator 40 03/01/17 06:00 101 17 156/90 97 Mechanical Ventilator 40 03/01/17 05:45 104 19 166/92 97 Mechanical Ventilator 40 03/01/17 05:31 16 03/01/17 05:30 106 18 186/98 97 Mechanical Ventilator 40 03/01/17 05:13 96 18 40 03/01/17 05:00 104 20 176/114 97 Mechanical Ventilator 40 03/01/17 04:30 68 16 154/60 97 Mechanical Ventilator 40 03/01/17 04:00 98.4 77 16 183/74 97 Mechanical Ventilator 40 03/01/17 04:00 16 03/01/17 03:49 68 03/01/17 03:30 68 16 146/57 97 Mechanical Ventilator 40 03/01/17 03:03 68 16 40 03/01/17 03:00 68 16 145/59 97 Mechanical Ventilator 40 03/01/17 03:00 16 03/01/17 02:30 68 16 150/62 97 Mechanical Ventilator 40 03/01/17 02:00 16 03/01/17 02:00 68 16 137/58 97 Mechanical Ventilator 40 03/01/17 01:30 69 16 125/58 97 Mechanical Ventilator 40 03/01/17 01:12 72 16 40 03/01/17 01:00 16 03/01/17 01:00 78 16 136/72 97 Mechanical Ventilator 40 03/01/17 00:30 92 17 144/73 96 Mechanical Ventilator 40 03/01/17 00:00 16 03/01/17 00:00 98.4 71 16 139/50 96 Mechanical Ventilator 40 02/28/17 23:36 71 02/28/17 23:30 71 16 138/54 96 Mechanical Ventilator 40 02/28/17 23:11 69 16 40 02/28/17 23:00 70 16 133/54 96 Mechanical Ventilator 40 02/28/17 23:00 16 02/28/17 22:30 73 16 130/53 96 Mechanical Ventilator 40 02/28/17 22:00 79 16 140/57 96 Mechanical Ventilator 40 02/28/17 21:57 16 02/28/17 21:30 79 16 132/53 97 Mechanical Ventilator 40 02/28/17 21:00 16 02/28/17 21:00 79 16 171/61 98 Mechanical Ventilator 40 02/28/17 20:57 81 17 40 02/28/17 20:34 70 147/54 02/28/17 20:30 79 16 147/54 97 Mechanical Ventilator 40 02/28/17 20:00 98.4 79 16 135/58 97 Mechanical Ventilator 40 02/28/17 20:00 16 02/28/17 19:30 79 16 128/57 96 Mechanical Ventilator 40 02/28/17 19:26 75 02/28/17 19:02 79 16 40 02/28/17 19:00 16 02/28/17 19:00 79 16 104/52 97 Mechanical Ventilator 40 02/28/17 18:30 98.6 83 18 157/83 97 Mechanical Ventilator 40 02/28/17 18:23 98.6 02/28/17 18:00 16 02/28/17 18:00 87 16 157/83 98 Mechanical Ventilator 40 02/28/17 17:33 84 25 40 02/28/17 17:30 94 15 157/83 98 Mechanical Ventilator 40 02/28/17 17:24 169/88 02/28/17 17:00 88 15 169/88 98 Mechanical Ventilator 40 02/28/17 17:00 18 02/28/17 16:30 90 17 138/86 99 Mechanical Ventilator 40 02/28/17 16:00 90 18 160/91 97 Mechanical Ventilator 40 02/28/17 16:00 40 02/28/17 16:00 18 02/28/17 16:00 85 02/28/17 15:30 98.4 86 18 148/68 97 Mechanical Ventilator 40 02/28/17 15:03 88 21 40 02/28/17 15:00 83 18 148/68 98 Mechanical Ventilator 40 02/28/17 15:00 18 02/28/17 14:30 86 16 159/67 96 Mechanical Ventilator 40 02/28/17 14:20 98.2 02/28/17 14:17 19 02/28/17 14:00 85 19 159/67 97 Mechanical Ventilator 40 02/28/17 13:30 98.0 84 18 154/87 97 Mechanical Ventilator 40 02/28/17 13:00 16 02/28/17 13:00 69 16 157/64 97 Mechanical Ventilator 40 02/28/17 12:52 66 16 40 02/28/17 12:30 66 16 120/47 97 Mechanical Ventilator 40 02/28/17 12:00 90 02/28/17 12:00 16 02/28/17 12:00 67 16 128/45 96 Mechanical Ventilator 40 02/28/17 11:30 98.2 74 16 96/44 96 Mechanical Ventilator 40 02/28/17 11:23 72 16 40 Status: awake Condition: critical HEENT: atraumatic, normocephalic Lungs: clear Heart: HR/BP stable, HR/BP unstable Abdomen: soft, active bowel sounds Extremities: no C/C/E, edema Decubiti: location, stage Accucheck: 124 Critical Care - Subjective ROS Limited/Unobtainable: No Condition: critical EKG Rhythm: Sinus Rhythm FI02: 40 Vent Support Breath Rate: 16 Vent Support Mode: AC Vent Tidal Volume: 500 Sputum Amount: Small PIP: 20 Secretions: small Drips: versed 9 mg Tube Feeding Amount: 30 I&O: Intake and Output 03/01/17 03/02/17 19:00 07:00 Intake Total 285.5 ml Output Total 200 ml Balance 85.5 ml IV Total 135.5 ml Tube Feeding 90 ml Other 60 ml Output Urine Total 200 ml CXR: Et OK , decreasing infiltrate ET-Tube: 8.0 ET Position: 21 Labs: Laboratory Tests Test 03/01/17 03:55 White Blood Count 7.9 K/UL (4.8-10.8) Red Blood Count 2.44 M/UL (4.20-5.40) L Hemoglobin 8.1 G/DL (12.0-16.0) L Hematocrit 24.6 % (37.0-47.0) L Mean Corpuscular Volume 101 FL (80-99) H Mean Corpuscular Hemoglobin 33.3 PG (27.0-31.0) H Mean Corpuscular Hemoglobin Concent 33.0 G/DL (32.0-36.0) Red Cell Distribution Width 12.0 % (11.6-14.8) Platelet Count 246 K/UL (150-450) Mean Platelet Volume 8.0 FL (6.5-10.1) Neutrophils (%) (Auto) 76.0 % (45.0-75.0) H Lymphocytes (%) (Auto) 18.5 % (20.0-45.0) L Monocytes (%) (Auto) 5.2 % (1.0-10.0) Eosinophils (%) (Auto) 0.2 % (0.0-3.0) Basophils (%) (Auto) 0.2 % (0.0-2.0) Sodium Level 146 MMOL/L (136-145) H Potassium Level 3.5 MMOL/L (3.5-5.1) Chloride Level 109 MMOL/L (98-107) H Carbon Dioxide Level 30 MMOL/L (21-32) Anion Gap 7 mmol/L (5-15) Blood Urea Nitrogen 29 mg/dL (7-18) H Creatinine 0.7 MG/DL (0.55-1.30) Estimat Glomerular Filtration Rate mL/min (>60) Glucose Level 131 MG/DL (74-106) H Calcium Level 8.7 MG/DL (8.5-10.1) Total Bilirubin 0.5 MG/DL (0.2-1.0) Aspartate Amino Transf (AST/SGOT) 16 U/L (15-37) Alanine Aminotransferase (ALT/SGPT) 14 U/L (12-78) Alkaline Phosphatase 39 U/L (46-116) L Pro-B-Type Natriuretic Peptide 1431 pg/mL (0-125) H Total Protein 5.9 G/DL (6.4-8.2) L Albumin 2.2 G/DL (3.4-5.0) L Globulin 3.7 g/dL Albumin/Globulin Ratio 0.6 (1.0-2.7) L TWIN FONTANEZ Mar 01, 2017 11:07
--- NOTE | 2017-03-01 12:07 | Diagnostic Imaging Report ---
Indication: Abdominal pain Comparison: None Single view of the abdomen obtained Findings: There is moderate gas within small large bowel. Bowel gas pattern is nonspecific. A nasogastric tube is present which appears to be in good position. Interstitial opacities are noted within the visualized lower lung [place]. The bones are diffusely osteopenic. There is a scoliosis convex to the left. Aorta is moderately calcified. Impression: No acute disease
--- NOTE | 2017-03-01 12:08 | Diagnostic Imaging Report ---
Indication: Abdominal distention. Dyspnea. Comparison: 02/28/17 A single view chest radiograph was obtained. Findings: Patchy, mainly interstitial appearing disease noted bilaterally. Findings may be due to infiltrates or CHF. Please correlate clinically. Tubes and lines are stable. The heart is enlarged. There is a probable small left pleural effusion. Impression: No change from the prior day
--- NOTE | 2017-03-01 16:35 | Internal Med Progress Note ---
Subjective Date of Service: Mar 01, 2017 Physician Name Jj Fuentes Attending Physician Jun Cedillo MD Current Medications Medications (Trade) Dose Ordered Sig/Wilner Route PRN Reason Start Time Stop Time Status Last Admin Dose Admin Acetaminophen (Tylenol) 650 mg Q4H PRN ORAL FEVER 02/25/17 15:15 03/27/17 15:14 02/26/17 16:37 Albuterol/ Ipratropium (DuoNeb 0.5-3(2.5)mg/3ml) 3 ml Q4HR PRN HHN SHORTNESS OF BREATH 02/25/17 15:15 03/02/17 15:14 Allopurinol (Zyloprim) 100 mg DAILY ORAL 03/02/17 09:00 04/01/17 08:59 Aspirin (Ecotrin) 81 mg DAILY ORAL 02/26/17 09:00 03/19/17 08:59 02/28/17 08:41 Bisacodyl (Dulcolax) 10 mg DAILYPRN PRN RECTAL Constipation Third Line Agent 02/25/17 15:15 03/27/17 15:14 Carvedilol (Coreg) 6.25 mg Q12HR ORAL 02/25/17 21:00 03/25/17 20:59 03/01/17 09:36 Clonazepam (KlonoPIN) 1 mg DAILY ORAL 03/01/17 09:00 03/08/17 08:59 03/01/17 09:36 Dextrose (Dextrose 50%) STAT PRN IV Hypoglycemia 02/25/17 15:15 03/17/17 15:14 Escitalopram Oxalate (Lexapro) 10 mg DAILY ORAL 02/26/17 09:00 03/20/17 08:59 03/01/17 09:43 Haloperidol Lactate (Haldol) 2 mg Q4H PRN IM Agitation 02/25/17 15:15 03/27/17 15:14 02/25/17 22:38 Hydralazine HCl (Apresoline) 25 mg Q4H PRN ORAL SBP > 160mmHg 02/25/17 15:15 03/27/17 15:14 02/26/17 00:09 Levalbuterol HCl (Xopenex) 1.25 mg Q4H PRN HHN Bronchospasm 02/25/17 15:15 03/02/17 15:14 Lidocaine (Xylocaine 1% MPF 5ml) 10 ml Q4H PRN HHN cough 02/25/17 15:15 03/19/17 15:14 Lisinopril (Prinivil) 20 mg BID ORAL 02/25/17 18:00 03/27/17 17:59 03/01/17 09:38 Lorazepam (Ativan 2mg/ml 1ml) 2 mg Q4H PRN IV For Anxiety 02/26/17 11:00 03/05/17 10:59 02/28/17 17:22 Meropenem 1 gm/ Sodium Chloride 110 ml @ 220 mls/hr Q12HR IVPB 02/25/17 21:00 03/03/17 23:59 03/01/17 09:36 Metoclopramide HCl (Reglan) 10 mg Q8H IVP 02/28/17 12:32 03/30/17 12:31 03/01/17 12:26 Midazolam HCl 100 ml @ 0 mls/hr Q24H IVPB 03/01/17 04:00 03/08/17 03:59 03/01/17 12:27 Morphine Sulfate (Morphine Sulfate) 4 mg Q4H PRN IVP Breakthrough Pain 02/26/17 11:00 03/05/17 10:59 02/27/17 01:01 Ondansetron HCl (Zofran) 4 mg Q6H PRN IVP Nausea & Vomiting 02/25/17 15:15 03/17/17 15:14 Pantoprazole (Protonix) 40 mg DAILY IV 02/27/17 09:00 03/29/17 08:59 03/01/17 09:36 Phosphorus (Phospha 250 Neutral) 500 mg THREE TIMES A DAY NG 02/27/17 10:00 03/29/17 09:59 03/01/17 12:37 Polyethylene Glycol (Miralax) 17 gm DAILYPRN PRN ORAL Constipation First line agent 02/25/17 15:15 03/17/17 15:14 Pravastatin Sodium (Pravachol) 20 mg BEDTIME ORAL 02/25/17 21:00 03/18/17 20:59 02/28/17 20:34 Prednisone (predniSONE) 40 mg DAILY ORAL 02/26/17 09:00 03/28/17 08:59 03/01/17 09:33 Pregabalin (Lyrica) 150 mg THREE TIMES A DAY ORAL 02/25/17 18:00 03/18/17 12:59 03/01/17 12:34 Promethazine HCl/ Codeine (Phenergan with Codeine) 5 ml Q4H PRN ORAL UNRELIEVED COUGH 02/25/17 15:15 03/18/17 15:14 Ranitidine HCl (Zantac) 150 mg QPM ORAL 02/25/17 16:30 03/27/17 16:29 02/28/17 16:05 Allergies: Coded Allergies: TETRACYCLINE (Unverified Allergy, Unknown, 07/24/14) ROS Limited/Unobtainable: Yes Subjective 76 YO F admitted with shortness of breath. Now pneumonia. Cover for Int Med- Dr Cedillo. ICU. CT chest=occlusion left mainstem bronchus-Intubated 02/25/17. Objective Last Vital Signs Date Time Temp Pulse Resp B/P (MAP) Pulse Ox O2 Delivery O2 Flow Rate FiO2 03/01/17 16:08 68 03/01/17 16:00 98.4 16 138/52 98 Mechanical Ventilator 40 02/26/17 06:45 15.0 Laboratory Tests Test 03/01/17 03:55 White Blood Count 7.9 K/UL (4.8-10.8) Red Blood Count 2.44 M/UL (4.20-5.40) L Hemoglobin 8.1 G/DL (12.0-16.0) L Hematocrit 24.6 % (37.0-47.0) L Mean Corpuscular Volume 101 FL (80-99) H Mean Corpuscular Hemoglobin 33.3 PG (27.0-31.0) H Mean Corpuscular Hemoglobin Concent 33.0 G/DL (32.0-36.0) Red Cell Distribution Width 12.0 % (11.6-14.8) Platelet Count 246 K/UL (150-450) Mean Platelet Volume 8.0 FL (6.5-10.1) Neutrophils (%) (Auto) 76.0 % (45.0-75.0) H Lymphocytes (%) (Auto) 18.5 % (20.0-45.0) L Monocytes (%) (Auto) 5.2 % (1.0-10.0) Eosinophils (%) (Auto) 0.2 % (0.0-3.0) Basophils (%) (Auto) 0.2 % (0.0-2.0) Sodium Level 146 MMOL/L (136-145) H Potassium Level 3.5 MMOL/L (3.5-5.1) Chloride Level 109 MMOL/L (98-107) H Carbon Dioxide Level 30 MMOL/L (21-32) Anion Gap 7 mmol/L (5-15) Blood Urea Nitrogen 29 mg/dL (7-18) H Creatinine 0.7 MG/DL (0.55-1.30) Estimat Glomerular Filtration Rate mL/min (>60) Glucose Level 131 MG/DL (74-106) H Calcium Level 8.7 MG/DL (8.5-10.1) Phosphorus Level 4.5 MG/DL (2.5-4.9) Total Bilirubin 0.5 MG/DL (0.2-1.0) Aspartate Amino Transf (AST/SGOT) 16 U/L (15-37) Alanine Aminotransferase (ALT/SGPT) 14 U/L (12-78) Alkaline Phosphatase 39 U/L (46-116) L Pro-B-Type Natriuretic Peptide 1431 pg/mL (0-125) H Total Protein 5.9 G/DL (6.4-8.2) L Albumin 2.2 G/DL (3.4-5.0) L Globulin 3.7 g/dL Albumin/Globulin Ratio 0.6 (1.0-2.7) L Intake and Output 03/01/17 03/02/17 19:00 07:00 Intake Total 651 ml Output Total 410 ml Balance 241 ml Free Water 50 ml IV Total 261 ml Tube Feeding 280 ml Other 60 ml Output Urine Total 410 ml # Bowel Movements 1 Objective General Appearance: WD/WN, no apparent distress, alert EENT: PERRL/EOMI, normal ENT inspection, TMs normal Neck: non-tender, normal alignment, supple, normal inspection Cardiovascular: normal peripheral pulses, normal rate, regular rhythm, no gallop/murmur, no JVD Respiratory/Chest: Mech Vent; chest wall non-tender, respiratory distress, decreased breath sounds, crackles/rales, rhonchi - bilaterally, expiratory wheezing Abdomen: normal bowel sounds, non tender, soft, no organomegaly, no mass Extremities: normal range of motion 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 (8) Pneumonia Assessment & Plan: Continue Meropenem and vanco. See ID and pulmonary notes. (9) COPD exacerbation Assessment & Plan: Continue IV solumedrol and xopenex/atrovent nebs. See pulmonary note. (10) Diastolic CHF Assessment & Plan: See cardiology note. 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 S/P intubation to aerate left lung-see pulmonary note. D/W pulmonary Dr Hernandez Status: not improved JJ FUENTES Mar 01, 2017 16:35
--- NOTE | 2017-03-01 16:46 | Cardiology Progress Note ---
Assessment/Plan Problem List: (1) COPD exacerbation (2) Right middle lobe pneumonia (3) Hypertension (4) Diastolic CHF Status: stable, progressing Status Narrative Pt is hemodynamically stable, in SR, on vent for resp failure due to pneumonia and COPD Afebrile, w/ nl WBC BP control improving. Assessment/Plan Continue vent support, iv antibiotics, bronchodilators Continue coreg, lisinopril for HTN Monitor for CHF , given hx of diastolic dysfunction and mod MR. Cheney prn. Subjective ROS Limited/Unobtainable: Yes Subjective Cardiology for Dr. Roque Pt sedated, on vent Objective Last 24 Hour Vital Signs Date Time Temp Pulse Resp B/P (MAP) Pulse Ox O2 Delivery O2 Flow Rate FiO2 03/01/17 16:08 68 03/01/17 16:00 98.4 64 16 138/52 98 Mechanical Ventilator 40 03/01/17 16:00 16 03/01/17 16:00 40 03/01/17 15:30 66 16 145/57 98 Mechanical Ventilator 40 03/01/17 15:00 66 16 131/50 98 Mechanical Ventilator 40 03/01/17 15:00 16 03/01/17 14:52 67 16 40 03/01/17 14:30 67 16 138/54 98 Mechanical Ventilator 40 03/01/17 14:00 16 03/01/17 14:00 70 16 134/53 98 Mechanical Ventilator 40 03/01/17 13:30 71 16 120/52 98 Mechanical Ventilator 40 03/01/17 13:16 76 16 40 03/01/17 13:00 77 16 146/57 98 Mechanical Ventilator 40 03/01/17 13:00 16 03/01/17 12:30 95 20 163/47 98 Mechanical Ventilator 40 03/01/17 12:27 21 03/01/17 12:00 97.9 86 18 154/62 97 Mechanical Ventilator 40 03/01/17 12:00 71 03/01/17 12:00 18 03/01/17 12:00 40 03/01/17 11:30 66 16 154/54 96 Mechanical Ventilator 40 03/01/17 11:06 66 16 40 03/01/17 11:00 67 16 138/54 96 Mechanical Ventilator 40 03/01/17 11:00 16 03/01/17 10:30 78 16 152/67 97 Mechanical Ventilator 40 03/01/17 10:00 84 18 163/71 98 Mechanical Ventilator 40 03/01/17 10:00 19 03/01/17 09:38 162/102 03/01/17 09:36 77 162/102 03/01/17 09:30 22 03/01/17 09:30 87 17 162/102 98 Mechanical Ventilator 40 03/01/17 09:28 91 20 40 03/01/17 09:00 88 17 166/96 98 Mechanical Ventilator 40 03/01/17 09:00 19 03/01/17 08:30 84 18 139/58 99 Mechanical Ventilator 40 03/01/17 08:00 40 03/01/17 08:00 79 03/01/17 08:00 18 03/01/17 08:00 98.0 69 18 127/55 97 Mechanical Ventilator 40 03/01/17 07:30 68 16 123/56 96 Mechanical Ventilator 40 03/01/17 07:00 83 18 167/79 97 Mechanical Ventilator 40 03/01/17 07:00 18 03/01/17 06:52 93 20 40 03/01/17 06:45 83 17 139/74 97 Mechanical Ventilator 40 03/01/17 06:30 94 17 163/70 97 Mechanical Ventilator 40 03/01/17 06:15 102 19 161/100 97 Mechanical Ventilator 40 03/01/17 06:00 101 17 156/90 97 Mechanical Ventilator 40 03/01/17 05:45 104 19 166/92 97 Mechanical Ventilator 40 03/01/17 05:31 16 03/01/17 05:30 106 18 186/98 97 Mechanical Ventilator 40 03/01/17 05:13 96 18 40 03/01/17 05:00 104 20 176/114 97 Mechanical Ventilator 40 03/01/17 04:30 68 16 154/60 97 Mechanical Ventilator 40 03/01/17 04:00 98.4 77 16 183/74 97 Mechanical Ventilator 40 03/01/17 04:00 16 03/01/17 03:49 68 03/01/17 03:30 68 16 146/57 97 Mechanical Ventilator 40 03/01/17 03:03 68 16 40 03/01/17 03:00 68 16 145/59 97 Mechanical Ventilator 40 03/01/17 03:00 16 03/01/17 02:30 68 16 150/62 97 Mechanical Ventilator 40 03/01/17 02:00 16 03/01/17 02:00 68 16 137/58 97 Mechanical Ventilator 40 03/01/17 01:30 69 16 125/58 97 Mechanical Ventilator 40 03/01/17 01:12 72 16 40 03/01/17 01:00 16 03/01/17 01:00 78 16 136/72 97 Mechanical Ventilator 40 03/01/17 00:30 92 17 144/73 96 Mechanical Ventilator 40 03/01/17 00:00 16 03/01/17 00:00 98.4 71 16 139/50 96 Mechanical Ventilator 40 02/28/17 23:36 71 02/28/17 23:30 71 16 138/54 96 Mechanical Ventilator 40 02/28/17 23:11 69 16 40 02/28/17 23:00 70 16 133/54 96 Mechanical Ventilator 40 02/28/17 23:00 16 02/28/17 22:30 73 16 130/53 96 Mechanical Ventilator 40 02/28/17 22:00 79 16 140/57 96 Mechanical Ventilator 40 02/28/17 21:57 16 02/28/17 21:30 79 16 132/53 97 Mechanical Ventilator 40 02/28/17 21:00 16 02/28/17 21:00 79 16 171/61 98 Mechanical Ventilator 40 02/28/17 20:57 81 17 40 02/28/17 20:34 70 147/54 02/28/17 20:30 79 16 147/54 97 Mechanical Ventilator 40 02/28/17 20:00 98.4 79 16 135/58 97 Mechanical Ventilator 40 02/28/17 20:00 16 02/28/17 19:30 79 16 128/57 96 Mechanical Ventilator 40 02/28/17 19:26 75 02/28/17 19:02 79 16 40 02/28/17 19:00 16 02/28/17 19:00 79 16 104/52 97 Mechanical Ventilator 40 02/28/17 18:30 98.6 83 18 157/83 97 Mechanical Ventilator 40 02/28/17 18:23 98.6 02/28/17 18:00 16 02/28/17 18:00 87 16 157/83 98 Mechanical Ventilator 40 02/28/17 17:33 84 25 40 02/28/17 17:30 94 15 157/83 98 Mechanical Ventilator 40 02/28/17 17:24 169/88 02/28/17 17:00 88 15 169/88 98 Mechanical Ventilator 40 02/28/17 17:00 18 General Appearance: WD/WN, on vent EENT: PERRL/EOMI Neck: no JVD Rhythm: NSR Cardiovascular: normal rate, no gallop/murmur Respiratory/Chest: other - clear anteriorly Abdomen: normal bowel sounds, non tender, soft Extremities: no swelling Intake and Output 03/01/17 03/02/17 19:00 07:00 Intake Total 651 ml Output Total 410 ml Balance 241 ml Free Water 50 ml IV Total 261 ml Tube Feeding 280 ml Other 60 ml Output Urine Total 410 ml # Bowel Movements 1 Laboratory Tests Test 03/01/17 03:55 White Blood Count 7.9 K/UL (4.8-10.8) Red Blood Count 2.44 M/UL (4.20-5.40) L Hemoglobin 8.1 G/DL (12.0-16.0) L Hematocrit 24.6 % (37.0-47.0) L Mean Corpuscular Volume 101 FL (80-99) H Mean Corpuscular Hemoglobin 33.3 PG (27.0-31.0) H Mean Corpuscular Hemoglobin Concent 33.0 G/DL (32.0-36.0) Red Cell Distribution Width 12.0 % (11.6-14.8) Platelet Count 246 K/UL (150-450) Mean Platelet Volume 8.0 FL (6.5-10.1) Neutrophils (%) (Auto) 76.0 % (45.0-75.0) H Lymphocytes (%) (Auto) 18.5 % (20.0-45.0) L Monocytes (%) (Auto) 5.2 % (1.0-10.0) Eosinophils (%) (Auto) 0.2 % (0.0-3.0) Basophils (%) (Auto) 0.2 % (0.0-2.0) Sodium Level 146 MMOL/L (136-145) H Potassium Level 3.5 MMOL/L (3.5-5.1) Chloride Level 109 MMOL/L (98-107) H Carbon Dioxide Level 30 MMOL/L (21-32) Anion Gap 7 mmol/L (5-15) Blood Urea Nitrogen 29 mg/dL (7-18) H Creatinine 0.7 MG/DL (0.55-1.30) Estimat Glomerular Filtration Rate mL/min (>60) Glucose Level 131 MG/DL (74-106) H Calcium Level 8.7 MG/DL (8.5-10.1) Phosphorus Level 4.5 MG/DL (2.5-4.9) Total Bilirubin 0.5 MG/DL (0.2-1.0) Aspartate Amino Transf (AST/SGOT) 16 U/L (15-37) Alanine Aminotransferase (ALT/SGPT) 14 U/L (12-78) Alkaline Phosphatase 39 U/L (46-116) L Pro-B-Type Natriuretic Peptide 1431 pg/mL (0-125) H Total Protein 5.9 G/DL (6.4-8.2) L Albumin 2.2 G/DL (3.4-5.0) L Globulin 3.7 g/dL Albumin/Globulin Ratio 0.6 (1.0-2.7) L RYANNE ROCKWELL Mar 01, 2017 16:46
[2017-03-01] MEDS: HydrALAZINE 25mg tab ORAL PRN (18:42)
--- NOTE | 2017-03-01 23:52 | General Progress Note ---
Assessment/Plan Assessment/Plan anxiety d/o' -cont current meds -provided ro/st Subjective Allergies: Coded Allergies: TETRACYCLINE (Unverified Allergy, Unknown, 07/24/14) Subjective the pt os doing well much improved/ Objective Last 24 Hour Vital Signs Date Time Temp Pulse Resp B/P (MAP) Pulse Ox O2 Delivery O2 Flow Rate FiO2 03/01/17 23:14 83 19 40 03/01/17 22:00 16 03/01/17 21:00 81 16 144/61 98 Mechanical Ventilator 40 03/01/17 21:00 16 03/01/17 20:55 82 16 40 03/01/17 20:40 84 131/102 03/01/17 20:30 81 16 131/102 97 Mechanical Ventilator 40 03/01/17 20:00 17 03/01/17 20:00 98.0 81 17 153/64 97 Mechanical Ventilator 40 03/01/17 19:30 83 18 155/66 97 Mechanical Ventilator 40 03/01/17 19:06 81 03/01/17 19:00 16 03/01/17 19:00 79 16 146/66 97 Mechanical Ventilator 40 03/01/17 18:56 80 16 40 03/01/17 18:43 16 03/01/17 18:42 167/69 03/01/17 18:30 83 16 167/69 97 Mechanical Ventilator 40 03/01/17 18:00 82 17 164/75 96 Mechanical Ventilator 40 03/01/17 18:00 16 03/01/17 17:46 164/69 03/01/17 17:30 81 18 163/60 97 Mechanical Ventilator 40 03/01/17 17:00 16 03/01/17 17:00 83 17 145/80 97 Mechanical Ventilator 40 03/01/17 16:47 79 16 40 03/01/17 16:30 84 17 140/54 98 Mechanical Ventilator 40 03/01/17 16:08 68 03/01/17 16:00 98.4 64 16 138/52 98 Mechanical Ventilator 40 03/01/17 16:00 16 03/01/17 16:00 40 03/01/17 15:30 66 16 145/57 98 Mechanical Ventilator 40 03/01/17 15:00 66 16 131/50 98 Mechanical Ventilator 40 03/01/17 15:00 16 03/01/17 14:52 67 16 40 03/01/17 14:30 67 16 138/54 98 Mechanical Ventilator 40 03/01/17 14:00 16 03/01/17 14:00 70 16 134/53 98 Mechanical Ventilator 40 03/01/17 13:30 71 16 120/52 98 Mechanical Ventilator 40 03/01/17 13:16 76 16 40 03/01/17 13:00 77 16 146/57 98 Mechanical Ventilator 40 03/01/17 13:00 16 03/01/17 12:30 95 20 163/47 98 Mechanical Ventilator 40 03/01/17 12:27 21 03/01/17 12:00 97.9 86 18 154/62 97 Mechanical Ventilator 40 03/01/17 12:00 71 03/01/17 12:00 18 03/01/17 12:00 40 03/01/17 11:30 66 16 154/54 96 Mechanical Ventilator 40 03/01/17 11:06 66 16 40 03/01/17 11:00 67 16 138/54 96 Mechanical Ventilator 40 03/01/17 11:00 16 03/01/17 10:30 78 16 152/67 97 Mechanical Ventilator 40 03/01/17 10:00 84 18 163/71 98 Mechanical Ventilator 40 03/01/17 10:00 19 03/01/17 09:38 162/102 03/01/17 09:36 77 162/102 03/01/17 09:30 22 03/01/17 09:30 87 17 162/102 98 Mechanical Ventilator 40 03/01/17 09:28 91 20 40 03/01/17 09:00 88 17 166/96 98 Mechanical Ventilator 40 03/01/17 09:00 19 03/01/17 08:30 84 18 139/58 99 Mechanical Ventilator 40 03/01/17 08:00 40 03/01/17 08:00 79 03/01/17 08:00 18 03/01/17 08:00 98.0 69 18 127/55 97 Mechanical Ventilator 40 03/01/17 07:30 68 16 123/56 96 Mechanical Ventilator 40 03/01/17 07:00 83 18 167/79 97 Mechanical Ventilator 40 03/01/17 07:00 18 03/01/17 06:52 93 20 40 03/01/17 06:45 83 17 139/74 97 Mechanical Ventilator 40 03/01/17 06:30 94 17 163/70 97 Mechanical Ventilator 40 03/01/17 06:15 102 19 161/100 97 Mechanical Ventilator 40 03/01/17 06:00 101 17 156/90 97 Mechanical Ventilator 40 03/01/17 05:45 104 19 166/92 97 Mechanical Ventilator 40 03/01/17 05:31 16 03/01/17 05:30 106 18 186/98 97 Mechanical Ventilator 40 03/01/17 05:13 96 18 40 03/01/17 05:00 104 20 176/114 97 Mechanical Ventilator 40 03/01/17 04:30 68 16 154/60 97 Mechanical Ventilator 40 03/01/17 04:00 98.4 77 16 183/74 97 Mechanical Ventilator 40 03/01/17 04:00 16 03/01/17 03:49 68 03/01/17 03:30 68 16 146/57 97 Mechanical Ventilator 40 03/01/17 03:03 68 16 40 03/01/17 03:00 68 16 145/59 97 Mechanical Ventilator 40 03/01/17 03:00 16 03/01/17 02:30 68 16 150/62 97 Mechanical Ventilator 40 03/01/17 02:00 16 03/01/17 02:00 68 16 137/58 97 Mechanical Ventilator 40 03/01/17 01:30 69 16 125/58 97 Mechanical Ventilator 40 03/01/17 01:12 72 16 40 03/01/17 01:00 16 03/01/17 01:00 78 16 136/72 97 Mechanical Ventilator 40 03/01/17 00:30 92 17 144/73 96 Mechanical Ventilator 40 03/01/17 00:00 16 03/01/17 00:00 98.4 71 16 139/50 96 Mechanical Ventilator 40 Intake and Output 03/01/17 03/02/17 19:00 07:00 Intake Total 825 ml 274 ml Output Total 515 ml 95 ml Balance 310 ml 179 ml Free Water 50 ml IV Total 315 ml 164 ml Tube Feeding 400 ml 40 ml Other 60 ml 70 ml Output Urine Total 515 ml 95 ml # Bowel Movements 2 Laboratory Tests 03/01/17 03:55: White Blood Count 7.9, Red Blood Count 2.44L, Hemoglobin 8.1L, Hematocrit 24.6L , Mean Corpuscular Volume 101H, Mean Corpuscular Hemoglobin 33.3H, Mean Corpuscular Hemoglobin Concent 33.0, Red Cell Distribution Width 12.0, Platelet Count 246, Mean Platelet Volume 8.0, Neutrophils (%) (Auto) 76.0H, Lymphocytes ( %) (Auto) 18.5L, Monocytes (%) (Auto) 5.2, Eosinophils (%) (Auto) 0.2, Basophils (%) (Auto) 0.2, Sodium Level 146H, Potassium Level 3.5, Chloride Level 109H, Carbon Dioxide Level 30, Anion Gap 7, Blood Urea Nitrogen 29H, Creatinine 0.7, Estimat Glomerular Filtration Rate , Glucose Level 131H, Calcium Level 8.7, Phosphorus Level 4.5, Total Bilirubin 0.5, Aspartate Amino Transf (AST/SGOT) 16, Alanine Aminotransferase (ALT/SGPT) 14, Alkaline Phosphatase 39L, Pro-B-Type Natriuretic Peptide 1431H, Total Protein 5.9L, Albumin 2.2L, Globulin 3.7, Albumin/Globulin Ratio 0.6L Height (Feet): 5 Height (Inches): 7.00 Weight (Pounds): 114 Wan Stern M.D. Mar 01, 2017 23:52
[2017-03-02] VITALS (46 sets, daily range): BP systolic 95–179; BP diastolic 44–107
[2017-03-02] MEDS: Midazolam/D5W 100ml 100 ML IVPB SCH ×5 (00:34→23:57)
[2017-03-02] MEDS: HydrALAZINE 25mg tab ORAL PRN (02:32)
[2017-03-02] MEDS: Metoclopramide 10mg/2ml Inj IVP SCH ×3 (04:12→20:57)
[2017-03-02 05:21] LABS: BASOPHILS % (AUTO) 0.4 % (0.0-2.0); EOSINOPHILS % (AUTO) 0.1 % (0.0-3.0); HEMATOCRIT 25.9 % (37.0-47.0); HEMOGLOBIN 8.4 G/DL (12.0-16.0); LYMPHOCYTES % (AUTO) 24.6 % (20.0-45.0); MEAN CORPUSCULAR VOLUME 102 FL (80-99); MONOCYTES % (AUTO) 7.5 % (1.0-10.0); NEUTROPHILS % (AUTO) 67.5 % (45.0-75.0); PLATELET COUNT 242 K/UL (150-450); RED BLOOD COUNT 2.54 M/UL (4.20-5.40); WHITE BLOOD COUNT 9.4 K/UL (4.8-10.8)
[2017-03-02 05:50] LABS: ALANINE AMINOTRANSFERASE 12 U/L (12-78); ALBUMIN 2.3 G/DL (3.4-5.0); ALBUMIN/GLOBULIN RATIO 0.6 (1.0-2.7); ALKALINE PHOSPHATASE 40 U/L (46-116); ANION GAP 3 mmol/L (5-15); ASPARTATE AMINO TRANSFERASE 12 U/L (15-37); BILIRUBIN,TOTAL 0.5 MG/DL (0.2-1.0); BLOOD UREA NITROGEN 36 mg/dL (7-18); CALCIUM 9.1 MG/DL (8.5-10.1); CARBON DIOXIDE 34 MMOL/L (21-32); CHLORIDE 110 MMOL/L (98-107); CREATININE 0.7 MG/DL (0.55-1.30); PHOSPHORUS 3.4 MG/DL (2.5-4.9); SODIUM 147 MMOL/L (136-145)
[2017-03-02] MEDS: Pantoprazole Inj IV SCH (08:31)
[2017-03-02] MEDS: Meropenem 1 GM in NS 110 ML IVPB SCH ×2 (08:31→20:57)
[2017-03-02] MEDS: Carvedilol 6.25mg Tab ORAL SCH ×2 (08:31→20:58)
[2017-03-02] MEDS: Aspirin EC 81mg tab ORAL SCH (08:32)
[2017-03-02] MEDS: Phospha 250 Neutral tab NG SCH (08:32)
[2017-03-02] MEDS: Lisinopril 20mg tab ORAL SCH ×2 (08:33→17:22)
[2017-03-02] MEDS: Allopurinol 100mg Tab ORAL SCH (08:33)
[2017-03-02] MEDS: Lyrica 75mg cap ORAL SCH ×3 (08:34→17:22)
--- NOTE | 2017-03-02 09:18 | Infectious Diseases Prog Note ---
Assessment/Plan Assessment/Plan Abx: IV Vanco 02/15-03/01 Cefepime 02/15-02/18 Meropenem 02/18- Assesment: Acute hypoxic resp failure, - combination of COPD exacerbation and PNA; worsened 02/18; Intubated 02/26 -venous duplex 02/16 no DVT PNA; worsening- r/o MDRO, r/o fungal pneumonia. SGS(-), Cx NGTD - SP bronch 02/26: BAL pending -CXR 03/01: Patchy, mainly interstitial appearing disease noted bilaterally. Findings may be due to infiltrates or CHF - CT Chest 02/24: Near-complete occlusion of the left mainstem bronchus and proximal lobar bronchi, probably by debris. Extensive resultant atelectasis and consolidation of nearly the entire left lung. Less extensive consolidation within the right lung, nonspecific as regards etiology, likely secondary to pneumonia or edema -CXR 02/23: Better inspiration currently. Overall improved aeration of the right mid and lower lung, with decreased dense consolidation and is still fairly extensive parenchymal opacity. The right pleural space is clear. Large left pleural effusion is again demonstrated, and is increased from the prior exam. There is also increasing consolidation of the residual aerated lung in the left upper hemithorax. -CXR: Limited evaluation due to significant degree of soft tissue attenuation. Suspect pneumonia at the right lung base. -Cr Ag serum neg; cocci ab pending L pleural effusion - improved Leukocytosis, mild - recurrent, mild (on steroids)- resolved Fever x1 COPD on home O2 Hx of Cdiff DM2 Chronic abd pain hx of MRSA bacteremia 07/2015 TCA allergy Full Code fibromyalgia, HTN, HLD, R breast cancer,Tobacco abuse (stopped 4 years ago), Anxiety, AOCD Plan: -Continue IV Meropenem d# / -s/p 14 d IV Vancomycin 03/01 -s/p 6d prophylatic PO vanco 02/21 -s/p 4 d Cefepime 02/18 -cold compresses to both arm -Check venous duplex BUE -f/u Cocci ab -F/u cultures -Monitor CBC/BMP, temperatures -Aspiration precautions - vent support, wean as tolerated Discussed with RN. Subjective Allergies: Coded Allergies: TETRACYCLINE (Unverified Allergy, Unknown, 07/24/14) Subjective afebrile no leukocytosis remains intubated L>R arm swelling Objective Vital Signs Last 24 Hour Vital Signs Date Time Temp Pulse Resp B/P (MAP) Pulse Ox O2 Delivery O2 Flow Rate FiO2 03/02/17 08:33 170/88 03/02/17 08:31 79 170/88 03/02/17 07:00 16 03/02/17 07:00 66 16 155/60 97 Mechanical Ventilator 40 03/02/17 06:46 16 03/02/17 06:42 65 16 40 03/02/17 06:30 65 16 151/63 97 Mechanical Ventilator 40 03/02/17 06:00 68 16 157/68 97 Mechanical Ventilator 40 03/02/17 05:30 79 17 170/95 97 Mechanical Ventilator 40 03/02/17 05:02 76 16 40 03/02/17 05:00 16 03/02/17 05:00 78 16 175/75 98 Mechanical Ventilator 40 03/02/17 04:30 79 17 154/93 98 Mechanical Ventilator 40 03/02/17 04:00 16 03/02/17 04:00 98.8 78 16 159/67 97 Mechanical Ventilator 40 03/02/17 03:30 80 16 167/64 97 Mechanical Ventilator 40 03/02/17 03:29 81 16 40 03/02/17 03:01 78 03/02/17 03:00 82 17 174/74 97 Mechanical Ventilator 40 03/02/17 03:00 17 03/02/17 02:32 167/63 03/02/17 02:30 69 16 172/63 97 Mechanical Ventilator 40 03/02/17 02:00 16 03/02/17 02:00 80 16 164/60 96 Mechanical Ventilator 40 03/02/17 01:00 80 17 170/71 97 Mechanical Ventilator 40 03/02/17 00:53 80 19 40 03/02/17 00:34 17 03/02/17 00:30 80 16 176/72 96 Mechanical Ventilator 40 03/02/17 00:00 98.0 80 16 166/72 97 Mechanical Ventilator 40 03/02/17 00:00 17 03/02/17 00:00 75 03/01/17 23:30 80 16 158/62 98 Mechanical Ventilator 40 03/01/17 23:14 83 19 40 03/01/17 23:00 81 16 151/65 98 Mechanical Ventilator 40 03/01/17 23:00 17 03/01/17 22:30 83 17 144/59 98 Mechanical Ventilator 40 03/01/17 22:00 81 17 135/59 98 Mechanical Ventilator 40 03/01/17 22:00 16 03/01/17 21:30 83 17 134/53 98 Mechanical Ventilator 40 03/01/17 21:00 81 16 144/61 98 Mechanical Ventilator 40 03/01/17 21:00 16 03/01/17 20:55 82 16 40 03/01/17 20:40 84 131/102 03/01/17 20:30 81 16 131/102 97 Mechanical Ventilator 40 03/01/17 20:00 17 03/01/17 20:00 98.0 81 17 153/64 97 Mechanical Ventilator 40 03/01/17 19:30 83 18 155/66 97 Mechanical Ventilator 40 03/01/17 19:06 81 03/01/17 19:00 16 03/01/17 19:00 79 16 146/66 97 Mechanical Ventilator 40 03/01/17 18:56 80 16 40 03/01/17 18:43 16 03/01/17 18:42 167/69 03/01/17 18:30 83 16 167/69 97 Mechanical Ventilator 40 03/01/17 18:00 82 17 164/75 96 Mechanical Ventilator 40 03/01/17 18:00 16 03/01/17 17:46 164/69 03/01/17 17:30 81 18 163/60 97 Mechanical Ventilator 40 03/01/17 17:00 16 03/01/17 17:00 83 17 145/80 97 Mechanical Ventilator 40 03/01/17 16:47 79 16 40 03/01/17 16:30 84 17 140/54 98 Mechanical Ventilator 40 03/01/17 16:08 68 03/01/17 16:00 98.4 64 16 138/52 98 Mechanical Ventilator 40 03/01/17 16:00 16 03/01/17 16:00 40 03/01/17 15:30 66 16 145/57 98 Mechanical Ventilator 40 03/01/17 15:00 66 16 131/50 98 Mechanical Ventilator 40 03/01/17 15:00 16 03/01/17 14:52 67 16 40 03/01/17 14:30 67 16 138/54 98 Mechanical Ventilator 40 03/01/17 14:00 16 03/01/17 14:00 70 16 134/53 98 Mechanical Ventilator 40 03/01/17 13:30 71 16 120/52 98 Mechanical Ventilator 40 03/01/17 13:16 76 16 40 03/01/17 13:00 77 16 146/57 98 Mechanical Ventilator 40 03/01/17 13:00 16 03/01/17 12:30 95 20 163/47 98 Mechanical Ventilator 40 03/01/17 12:27 21 03/01/17 12:00 97.9 86 18 154/62 97 Mechanical Ventilator 40 03/01/17 12:00 71 03/01/17 12:00 18 03/01/17 12:00 40 03/01/17 11:30 66 16 154/54 96 Mechanical Ventilator 40 03/01/17 11:06 66 16 40 03/01/17 11:00 67 16 138/54 96 Mechanical Ventilator 40 03/01/17 11:00 16 03/01/17 10:30 78 16 152/67 97 Mechanical Ventilator 40 03/01/17 10:00 84 18 163/71 98 Mechanical Ventilator 40 03/01/17 10:00 19 03/01/17 09:38 162/102 03/01/17 09:36 77 162/102 03/01/17 09:30 22 03/01/17 09:30 87 17 162/102 98 Mechanical Ventilator 40 03/01/17 09:28 91 20 40 Height (Feet): 5 Height (Inches): 7.00 Weight (Pounds): 116 Objective General Appearance: lethargic but arousable HEENT: PERRL, ETT in place, atraumatic head Neck: supple Respiratory: scattered wheezing Cardiovascular: regular rate, rhythmm, no murmurs Gastrointestinal: normal inspection, non tender, no mass, non-distended Musculoskeletal: L>R arm swelling and erythema Skin: no lesions or rashes reviewed Laboratory Tests Test 03/02/17 04:00 03/02/17 07:45 White Blood Count 9.4 K/UL (4.8-10.8) Red Blood Count 2.54 M/UL (4.20-5.40) L Hemoglobin 8.4 G/DL (12.0-16.0) L Hematocrit 25.9 % (37.0-47.0) L Mean Corpuscular Volume 102 FL (80-99) H Mean Corpuscular Hemoglobin 33.0 PG (27.0-31.0) H Mean Corpuscular Hemoglobin Concent 32.4 G/DL (32.0-36.0) Red Cell Distribution Width 12.0 % (11.6-14.8) Platelet Count 242 K/UL (150-450) Mean Platelet Volume 8.2 FL (6.5-10.1) Neutrophils (%) (Auto) 67.5 % (45.0-75.0) Lymphocytes (%) (Auto) 24.6 % (20.0-45.0) Monocytes (%) (Auto) 7.5 % (1.0-10.0) Eosinophils (%) (Auto) 0.1 % (0.0-3.0) Basophils (%) (Auto) 0.4 % (0.0-2.0) Sodium Level 147 MMOL/L (136-145) H Potassium Level 3.0 MMOL/L (3.5-5.1) L Chloride Level 110 MMOL/L (98-107) H Carbon Dioxide Level 34 MMOL/L (21-32) H Anion Gap 3 mmol/L (5-15) L Blood Urea Nitrogen 36 mg/dL (7-18) H Creatinine 0.7 MG/DL (0.55-1.30) Estimat Glomerular Filtration Rate mL/min (>60) Glucose Level 138 MG/DL (74-106) H Calcium Level 9.1 MG/DL (8.5-10.1) Phosphorus Level 3.4 MG/DL (2.5-4.9) Magnesium Level 1.9 MG/DL (1.8-2.4) Total Bilirubin 0.5 MG/DL (0.2-1.0) Aspartate Amino Transf (AST/SGOT) 12 U/L (15-37) L Alanine Aminotransferase (ALT/SGPT) 12 U/L (12-78) Alkaline Phosphatase 40 U/L (46-116) L Total Protein 6.1 G/DL (6.4-8.2) L Albumin 2.3 G/DL (3.4-5.0) L Globulin 3.8 g/dL Albumin/Globulin Ratio 0.6 (1.0-2.7) L Arterial Blood pH 7.509 (7.350-7.450) Arterial Blood Partial Pressure CO2 41.0 mmHg (35.0-45.0) Arterial Blood Partial Pressure O2 81.6 mmHg (75.0-100.0) Arterial Blood HCO3 31.9 mmol/L (22.0-26.0) H Arterial Blood Oxygen Saturation 94.9 % (92.0-98.0) Arterial Blood Base Excess 8.2 Scooby Test Positive Current Medications Medications (Trade) Dose Ordered Sig/Wilner Route PRN Reason Start Time Stop Time Status Last Admin Dose Admin Acetaminophen (Tylenol) 650 mg Q4H PRN ORAL FEVER 02/25/17 15:15 03/27/17 15:14 02/26/17 16:37 Albuterol/ Ipratropium (DuoNeb 0.5-3(2.5)mg/3ml) 3 ml Q4HR PRN HHN SHORTNESS OF BREATH 02/25/17 15:15 03/02/17 15:14 Allopurinol (Zyloprim) 100 mg DAILY ORAL 03/02/17 09:00 04/01/17 08:59 03/02/17 08:33 Aspirin (Ecotrin) 81 mg DAILY ORAL 02/26/17 09:00 03/19/17 08:59 03/02/17 08:32 Bisacodyl (Dulcolax) 10 mg DAILYPRN PRN RECTAL Constipation Third Line Agent 02/25/17 15:15 03/27/17 15:14 Carvedilol (Coreg) 6.25 mg Q12HR ORAL 02/25/17 21:00 03/25/17 20:59 03/02/17 08:31 Clonazepam (KlonoPIN) 1 mg DAILY ORAL 03/01/17 09:00 03/08/17 08:59 03/02/17 08:32 Dextrose (Dextrose 50%) STAT PRN IV Hypoglycemia 02/25/17 15:15 03/17/17 15:14 Escitalopram Oxalate (Lexapro) 10 mg DAILY ORAL 02/26/17 09:00 03/20/17 08:59 03/02/17 08:32 Haloperidol Lactate (Haldol) 2 mg Q4H PRN IM Agitation 02/25/17 15:15 03/27/17 15:14 02/25/17 22:38 Hydralazine HCl (Apresoline) 25 mg Q4H PRN ORAL SBP > 160mmHg 02/25/17 15:15 03/27/17 15:14 03/02/17 02:32 Levalbuterol HCl (Xopenex) 1.25 mg Q4H PRN HHN Bronchospasm 02/25/17 15:15 03/02/17 15:14 Lidocaine (Xylocaine 1% MPF 5ml) 10 ml Q4H PRN HHN cough 02/25/17 15:15 03/19/17 15:14 Lisinopril (Prinivil) 20 mg BID ORAL 02/25/17 18:00 03/27/17 17:59 03/02/17 08:33 Lorazepam (Ativan 2mg/ml 1ml) 2 mg Q4H PRN IV For Anxiety 02/26/17 11:00 03/05/17 10:59 02/28/17 17:22 Meropenem 1 gm/ Sodium Chloride 110 ml @ 220 mls/hr Q12HR IVPB 02/25/17 21:00 03/03/17 23:59 03/02/17 08:31 Metoclopramide HCl (Reglan) 10 mg Q8H IVP 02/28/17 12:32 03/30/17 12:31 03/02/17 04:12 Midazolam HCl 100 ml @ 0 mls/hr Q24H IVPB 03/01/17 04:00 03/08/17 03:59 03/02/17 06:46 Morphine Sulfate (Morphine Sulfate) 4 mg Q4H PRN IVP Breakthrough Pain 02/26/17 11:00 03/05/17 10:59 02/27/17 01:01 Ondansetron HCl (Zofran) 4 mg Q6H PRN IVP Nausea & Vomiting 02/25/17 15:15 03/17/17 15:14 Pantoprazole (Protonix) 40 mg DAILY IV 02/27/17 09:00 03/29/17 08:59 03/02/17 08:31 Polyethylene Glycol (Miralax) 17 gm DAILYPRN PRN ORAL Constipation First line agent 02/25/17 15:15 03/17/17 15:14 Potassium Chloride 100 ml @ 100 mls/hr Q1H IVPB 03/02/17 09:30 03/02/17 13:29 Pravastatin Sodium (Pravachol) 20 mg BEDTIME ORAL 02/25/17 21:00 11/17 20:59 03/01/17 20:39 Prednisone (predniSONE) 40 mg DAILY ORAL 02/26/17 09:00 03/28/17 08:59 03/02/17 08:32 Pregabalin (Lyrica) 150 mg THREE TIMES A DAY ORAL 02/25/17 18:00 03/18/17 12:59 03/02/17 08:34 Promethazine HCl/ Codeine (Phenergan with Codeine) 5 ml Q4H PRN ORAL UNRELIEVED COUGH 02/25/17 15:15 03/18/17 15:14 Ranitidine HCl (Zantac) 150 mg QPM ORAL 02/25/17 16:30 03/27/17 16:29 03/01/17 17:46 Alyse Traylor M.D. Mar 02, 2017 09:18
--- NOTE | 2017-03-02 09:37 | Pulmonolgy Critical Care Note ---
Critical Care - Asmt/Plan Problems: (1) Acute and chronic respiratory failure ([id number]) (2) COPD (chronic obstructive pulmonary disease) (3) Right middle lobe pneumonia (4) Collapse of left lung Respiratory: monitor respiratory rate, adjust FIO2, CXR, ABG, weaning trial Cardiac: continue to monitor HR/BP Renal: F/U I&O, keep IV fluid Infectious Disease: check cultures, continue antibiotics Gastrointestinal: continue feedings/current rate Endocrine: monitor blood sugar, check HgA1C, continue sliding scale insulin Hematologic: monitor H/H, transfuse if hgb<8.5 Neurologic: PRN Ativan, keep patient comfortable Affect: PRN ativan Prophylaxis: Protonix, Heparin Notes Reviewed: equipment man, cardio, renal Discussed with: nurses, consultants, correctional case records supervisorprinting manager - Objective Last 24 Hour Vital Signs Date Time Temp Pulse Resp B/P (MAP) Pulse Ox O2 Delivery O2 Flow Rate FiO2 03/02/17 09:00 81 16 174/80 97 Mechanical Ventilator 40 03/02/17 08:34 69 16 40 03/02/17 08:33 170/88 03/02/17 08:31 79 170/88 03/02/17 08:30 77 16 170/88 97 Mechanical Ventilator 40 03/02/17 08:00 98.8 77 16 153/74 97 Mechanical Ventilator 40 03/02/17 07:00 16 03/02/17 07:00 66 16 155/60 97 Mechanical Ventilator 40 03/02/17 06:46 16 03/02/17 06:42 65 16 40 03/02/17 06:30 65 16 151/63 97 Mechanical Ventilator 40 03/02/17 06:00 68 16 157/68 97 Mechanical Ventilator 40 03/02/17 05:30 79 17 170/95 97 Mechanical Ventilator 40 03/02/17 05:02 76 16 40 03/02/17 05:00 16 03/02/17 05:00 78 16 175/75 98 Mechanical Ventilator 40 03/02/17 04:30 79 17 154/93 98 Mechanical Ventilator 40 03/02/17 04:00 16 03/02/17 04:00 98.8 78 16 159/67 97 Mechanical Ventilator 40 03/02/17 03:30 80 16 167/64 97 Mechanical Ventilator 40 03/02/17 03:29 81 16 40 03/02/17 03:01 78 03/02/17 03:00 82 17 174/74 97 Mechanical Ventilator 40 03/02/17 03:00 17 03/02/17 02:32 167/63 03/02/17 02:30 69 16 172/63 97 Mechanical Ventilator 40 03/02/17 02:00 16 03/02/17 02:00 80 16 164/60 96 Mechanical Ventilator 40 03/02/17 01:00 80 17 170/71 97 Mechanical Ventilator 40 03/02/17 00:53 80 19 40 03/02/17 00:34 17 03/02/17 00:30 80 16 176/72 96 Mechanical Ventilator 40 03/02/17 00:00 98.0 80 16 166/72 97 Mechanical Ventilator 40 03/02/17 00:00 17 03/02/17 00:00 75 03/01/17 23:30 80 16 158/62 98 Mechanical Ventilator 40 03/01/17 23:14 83 19 40 03/01/17 23:00 81 16 151/65 98 Mechanical Ventilator 40 03/01/17 23:00 17 03/01/17 22:30 83 17 144/59 98 Mechanical Ventilator 40 03/01/17 22:00 81 17 135/59 98 Mechanical Ventilator 40 03/01/17 22:00 16 03/01/17 21:30 83 17 134/53 98 Mechanical Ventilator 40 03/01/17 21:00 81 16 144/61 98 Mechanical Ventilator 40 03/01/17 21:00 16 03/01/17 20:55 82 16 40 03/01/17 20:40 84 131/102 03/01/17 20:30 81 16 131/102 97 Mechanical Ventilator 40 03/01/17 20:00 17 03/01/17 20:00 98.0 81 17 153/64 97 Mechanical Ventilator 40 03/01/17 19:30 83 18 155/66 97 Mechanical Ventilator 40 03/01/17 19:06 81 03/01/17 19:00 16 03/01/17 19:00 79 16 146/66 97 Mechanical Ventilator 40 03/01/17 18:56 80 16 40 03/01/17 18:43 16 03/01/17 18:42 167/69 03/01/17 18:30 83 16 167/69 97 Mechanical Ventilator 40 03/01/17 18:00 82 17 164/75 96 Mechanical Ventilator 40 03/01/17 18:00 16 03/01/17 17:46 164/69 03/01/17 17:30 81 18 163/60 97 Mechanical Ventilator 40 03/01/17 17:00 16 03/01/17 17:00 83 17 145/80 97 Mechanical Ventilator 40 03/01/17 16:47 79 16 40 03/01/17 16:30 84 17 140/54 98 Mechanical Ventilator 40 03/01/17 16:08 68 03/01/17 16:00 98.4 64 16 138/52 98 Mechanical Ventilator 40 03/01/17 16:00 16 03/01/17 16:00 40 03/01/17 15:30 66 16 145/57 98 Mechanical Ventilator 40 03/01/17 15:00 66 16 131/50 98 Mechanical Ventilator 40 03/01/17 15:00 16 03/01/17 14:52 67 16 40 03/01/17 14:30 67 16 138/54 98 Mechanical Ventilator 40 03/01/17 14:00 16 03/01/17 14:00 70 16 134/53 98 Mechanical Ventilator 40 03/01/17 13:30 71 16 120/52 98 Mechanical Ventilator 40 03/01/17 13:16 76 16 40 03/01/17 13:00 77 16 146/57 98 Mechanical Ventilator 40 03/01/17 13:00 16 03/01/17 12:30 95 20 163/47 98 Mechanical Ventilator 40 03/01/17 12:27 21 03/01/17 12:00 97.9 86 18 154/62 97 Mechanical Ventilator 40 03/01/17 12:00 71 03/01/17 12:00 18 03/01/17 12:00 40 03/01/17 11:30 66 16 154/54 96 Mechanical Ventilator 40 03/01/17 11:06 66 16 40 03/01/17 11:00 67 16 138/54 96 Mechanical Ventilator 40 03/01/17 11:00 16 03/01/17 10:30 78 16 152/67 97 Mechanical Ventilator 40 03/01/17 10:00 84 18 163/71 98 Mechanical Ventilator 40 03/01/17 10:00 19 03/01/17 09:38 162/102 03/01/17 09:36 77 162/102 Status: awake Condition: critical HEENT: atraumatic Neck: full ROM Lungs: clear Heart: HR/BP stable, regular Abdomen: non-tender, feeding tube Extremities: no C/C/E Decubiti: location, stage Accucheck: 124 Critical Care - Subjective ROS Limited/Unobtainable: Yes Condition: critical EKG Rhythm: Sinus Rhythm FI02: 40 Vent Support Breath Rate: 16 Vent Support Mode: AC Vent Tidal Volume: 500 Sputum Amount: Small PIP: 20 Drips: versed Tube Feeding Amount: 40 CXR: no change ET-Tube: 8.0 ET Position: 21 Labs: Laboratory Tests Test 03/02/17 04:00 03/02/17 07:45 White Blood Count 9.4 K/UL (4.8-10.8) Red Blood Count 2.54 M/UL (4.20-5.40) L Hemoglobin 8.4 G/DL (12.0-16.0) L Hematocrit 25.9 % (37.0-47.0) L Mean Corpuscular Volume 102 FL (80-99) H Mean Corpuscular Hemoglobin 33.0 PG (27.0-31.0) H Mean Corpuscular Hemoglobin Concent 32.4 G/DL (32.0-36.0) Red Cell Distribution Width 12.0 % (11.6-14.8) Platelet Count 242 K/UL (150-450) Mean Platelet Volume 8.2 FL (6.5-10.1) Neutrophils (%) (Auto) 67.5 % (45.0-75.0) Lymphocytes (%) (Auto) 24.6 % (20.0-45.0) Monocytes (%) (Auto) 7.5 % (1.0-10.0) Eosinophils (%) (Auto) 0.1 % (0.0-3.0) Basophils (%) (Auto) 0.4 % (0.0-2.0) Sodium Level 147 MMOL/L (136-145) H Potassium Level 3.0 MMOL/L (3.5-5.1) L Chloride Level 110 MMOL/L (98-107) H Carbon Dioxide Level 34 MMOL/L (21-32) H Anion Gap 3 mmol/L (5-15) L Blood Urea Nitrogen 36 mg/dL (7-18) H Creatinine 0.7 MG/DL (0.55-1.30) Estimat Glomerular Filtration Rate mL/min (>60) Glucose Level 138 MG/DL (74-106) H Calcium Level 9.1 MG/DL (8.5-10.1) Phosphorus Level 3.4 MG/DL (2.5-4.9) Magnesium Level 1.9 MG/DL (1.8-2.4) Total Bilirubin 0.5 MG/DL (0.2-1.0) Aspartate Amino Transf (AST/SGOT) 12 U/L (15-37) L Alanine Aminotransferase (ALT/SGPT) 12 U/L (12-78) Alkaline Phosphatase 40 U/L (46-116) L Total Protein 6.1 G/DL (6.4-8.2) L Albumin 2.3 G/DL (3.4-5.0) L Globulin 3.8 g/dL Albumin/Globulin Ratio 0.6 (1.0-2.7) L Arterial Blood pH 7.509 (7.350-7.450) Arterial Blood Partial Pressure CO2 41.0 mmHg (35.0-45.0) Arterial Blood Partial Pressure O2 81.6 mmHg (75.0-100.0) Arterial Blood HCO3 31.9 mmol/L (22.0-26.0) H Arterial Blood Oxygen Saturation 94.9 % (92.0-98.0) Arterial Blood Base Excess 8.2 Scooby Test Positive TWIN FONTANEZ Mar 02, 2017 09:36
--- NOTE | 2017-03-02 09:48 | Diagnostic Imaging Report ---
Indication: DYSPNEA Technique: One view of the chest Comparison: 03/01/2017 Findings: Stable satisfactory positions of endotracheal and nasogastric tubes. Left-sided pleural effusion, bilateral interstitial edema again demonstrated. The heart is mildly enlarged. There are are right axillary surgical clips again demonstrated. Impression: Unchanged, over one day, findings as above.
--- NOTE | 2017-03-02 11:03 | General Progress Note ---
Assessment/Plan Status: stable Assessment/Plan Status: Acute renal failure- etiology? 1900 cc urine out after insertion of shi--JOSE MIGUEL: Moderate right hydronephrosis. Acute on Chronic respiratory failure- day 2 intubation HTN High Cholestrol Pneumonia COPD , exac. Diastolic CHF, Mod MR h/o C dif colitis h/o Breast Ca Anemia Pulm HTN Moderate Plan: K and Phos support pulm support adjust BP meds- Change steroids to po and aim to taper K supplement- as needed Allopurinol continue Shi- Avoid nephrotoxics JOSE MIGUEL: Moderate right hydronephrosis. Subjective ROS Limited/Unobtainable: Yes Allergies: Coded Allergies: TETRACYCLINE (Unverified Allergy, Unknown, 07/24/14) Objective Last 24 Hour Vital Signs Date Time Temp Pulse Resp B/P (MAP) Pulse Ox O2 Delivery O2 Flow Rate FiO2 03/02/17 10:00 79 16 166/72 97 Mechanical Ventilator 40 03/02/17 09:33 98.8 03/02/17 09:30 83 16 157/73 97 Mechanical Ventilator 40 03/02/17 09:00 81 16 174/80 97 Mechanical Ventilator 40 03/02/17 08:34 69 16 40 03/02/17 08:33 170/88 03/02/17 08:31 79 170/88 03/02/17 08:30 77 16 170/88 97 Mechanical Ventilator 40 03/02/17 08:00 98.8 77 16 153/74 97 Mechanical Ventilator 40 03/02/17 08:00 77 03/02/17 07:00 16 03/02/17 07:00 66 16 155/60 97 Mechanical Ventilator 40 03/02/17 06:46 16 03/02/17 06:42 65 16 40 03/02/17 06:30 65 16 151/63 97 Mechanical Ventilator 40 03/02/17 06:00 68 16 157/68 97 Mechanical Ventilator 40 03/02/17 05:30 79 17 170/95 97 Mechanical Ventilator 40 03/02/17 05:02 76 16 40 03/02/17 05:00 16 03/02/17 05:00 78 16 175/75 98 Mechanical Ventilator 40 03/02/17 04:30 79 17 154/93 98 Mechanical Ventilator 40 03/02/17 04:00 16 03/02/17 04:00 98.8 78 16 159/67 97 Mechanical Ventilator 40 03/02/17 03:30 80 16 167/64 97 Mechanical Ventilator 40 03/02/17 03:29 81 16 40 03/02/17 03:01 78 03/02/17 03:00 82 17 174/74 97 Mechanical Ventilator 40 03/02/17 03:00 17 03/02/17 02:32 167/63 03/02/17 02:30 69 16 172/63 97 Mechanical Ventilator 40 03/02/17 02:00 16 03/02/17 02:00 80 16 164/60 96 Mechanical Ventilator 40 03/02/17 01:00 80 17 170/71 97 Mechanical Ventilator 40 03/02/17 00:53 80 19 40 03/02/17 00:34 17 03/02/17 00:30 80 16 176/72 96 Mechanical Ventilator 40 03/02/17 00:00 98.0 80 16 166/72 97 Mechanical Ventilator 40 03/02/17 00:00 17 03/02/17 00:00 75 03/01/17 23:30 80 16 158/62 98 Mechanical Ventilator 40 03/01/17 23:14 83 19 40 03/01/17 23:00 81 16 151/65 98 Mechanical Ventilator 40 03/01/17 23:00 17 03/01/17 22:30 83 17 144/59 98 Mechanical Ventilator 40 03/01/17 22:00 81 17 135/59 98 Mechanical Ventilator 40 03/01/17 22:00 16 03/01/17 21:30 83 17 134/53 98 Mechanical Ventilator 40 03/01/17 21:00 81 16 144/61 98 Mechanical Ventilator 40 03/01/17 21:00 16 03/01/17 20:55 82 16 40 03/01/17 20:40 84 131/102 03/01/17 20:30 81 16 131/102 97 Mechanical Ventilator 40 03/01/17 20:00 17 03/01/17 20:00 98.0 81 17 153/64 97 Mechanical Ventilator 40 03/01/17 19:30 83 18 155/66 97 Mechanical Ventilator 40 03/01/17 19:06 81 03/01/17 19:00 16 03/01/17 19:00 79 16 146/66 97 Mechanical Ventilator 40 03/01/17 18:56 80 16 40 03/01/17 18:43 16 10/22/17 18:42 167/69 03/01/17 18:30 83 16 167/69 97 Mechanical Ventilator 40 03/01/17 18:00 82 17 164/75 96 Mechanical Ventilator 40 03/01/17 18:00 16 03/01/17 17:46 164/69 03/01/17 17:30 81 18 163/60 97 Mechanical Ventilator 40 03/01/17 17:00 16 03/01/17 17:00 83 17 145/80 97 Mechanical Ventilator 40 03/01/17 16:47 79 16 40 03/01/17 16:30 84 17 140/54 98 Mechanical Ventilator 40 03/01/17 16:08 68 03/01/17 16:00 98.4 64 16 138/52 98 Mechanical Ventilator 40 03/01/17 16:00 16 03/01/17 16:00 40 03/01/17 15:30 66 16 145/57 98 Mechanical Ventilator 40 03/01/17 15:00 66 16 131/50 98 Mechanical Ventilator 40 03/01/17 15:00 16 03/01/17 14:52 67 16 40 03/01/17 14:30 67 16 138/54 98 Mechanical Ventilator 40 03/01/17 14:00 16 03/01/17 14:00 70 16 134/53 98 Mechanical Ventilator 40 03/01/17 13:30 71 16 120/52 98 Mechanical Ventilator 40 03/01/17 13:16 76 16 40 03/01/17 13:00 77 16 146/57 98 Mechanical Ventilator 40 03/01/17 13:00 16 03/01/17 12:30 95 20 163/47 98 Mechanical Ventilator 40 03/01/17 12:27 21 03/01/17 12:00 97.9 86 18 154/62 97 Mechanical Ventilator 40 03/01/17 12:00 71 03/01/17 12:00 18 03/01/17 12:00 40 03/01/17 11:30 66 16 154/54 96 Mechanical Ventilator 40 03/01/17 11:06 66 16 40 Intake and Output 03/02/17 03/03/17 19:00 07:00 Intake Total 190 ml Output Total 200 ml Balance -10 ml Free Water 100 ml Tube Feeding 90 ml Output Urine Total 200 ml Laboratory Tests 03/02/17 04:00: White Blood Count 9.4, Red Blood Count 2.54L, Hemoglobin 8.4L, Hematocrit 25.9L , Mean Corpuscular Volume 102H, Mean Corpuscular Hemoglobin 33.0H, Mean Corpuscular Hemoglobin Concent 32.4, Red Cell Distribution Width 12.0, Platelet Count 242, Mean Platelet Volume 8.2, Neutrophils (%) (Auto) 67.5, Lymphocytes (% ) (Auto) 24.6, Monocytes (%) (Auto) 7.5, Eosinophils (%) (Auto) 0.1, Basophils ( %) (Auto) 0.4, Sodium Level 147H, Potassium Level 3.0L, Chloride Level 110H, Carbon Dioxide Level 34H, Anion Gap 3L, Blood Urea Nitrogen 36H, Creatinine 0.7 , Estimat Glomerular Filtration Rate , Glucose Level 138H, Calcium Level 9.1, Phosphorus Level 3.4, Magnesium Level 1.9, Total Bilirubin 0.5, Aspartate Amino Transf (AST/SGOT) 12L, Alanine Aminotransferase (ALT/SGPT) 12, Alkaline Phosphatase 40L, Total Protein 6.1L, Albumin 2.3L, Globulin 3.8, Albumin/ Globulin Ratio 0.6L 03/02/17 07:45: Arterial Blood pH 7.509H, Arterial Blood Partial Pressure CO2 41.0, Arterial Blood Partial Pressure O2 81.6, Arterial Blood HCO3 31.9H, Arterial Blood Oxygen Saturation 94.9, Arterial Blood Base Excess 8.2, Scooby Test Positive Height (Feet): 5 Height (Inches): 7.00 Weight (Pounds): 116 General Appearance: no apparent distress Cardiovascular: normal rate Respiratory/Chest: decreased breath sounds Abdomen: soft Objective no edema GENARO DUARTE Mar 02, 2017 11:03
--- NOTE | 2017-03-02 19:18 | Internal Med Progress Note ---
Subjective Date of Service: Mar 02, 2017 Physician Name Zeb Fuentes Attending Physician Jun Cedillo MD Current Medications Medications (Trade) Dose Ordered Sig/Wilner Route PRN Reason Start Time Stop Time Status Last Admin Dose Admin Acetaminophen (Tylenol) 650 mg Q4H PRN ORAL FEVER 02/25/17 15:15 03/27/17 15:14 02/26/17 16:37 Allopurinol (Zyloprim) 100 mg DAILY ORAL 03/02/17 09:00 04/01/17 08:59 03/02/17 08:33 Amlodipine Besylate (Norvasc) 5 mg DAILYPRN PRN ORAL SBP >160 mmHg. 03/02/17 12:15 04/01/17 12:14 Aspirin (Ecotrin) 81 mg DAILY ORAL 02/26/17 09:00 03/19/17 08:59 03/02/17 08:32 Bisacodyl (Dulcolax) 10 mg DAILYPRN PRN RECTAL Constipation Third Line Agent 02/25/17 15:15 03/27/17 15:14 Carvedilol (Coreg) 6.25 mg Q12HR ORAL 02/25/17 21:00 03/25/17 20:59 03/02/17 08:31 Clonazepam (KlonoPIN) 1 mg DAILY ORAL 03/01/17 09:00 03/08/17 08:59 03/02/17 08:32 Dextrose (Dextrose 50%) STAT PRN IV Hypoglycemia 02/25/17 15:15 03/17/17 15:14 Escitalopram Oxalate (Lexapro) 10 mg DAILY ORAL 02/26/17 09:00 03/20/17 08:59 03/02/17 08:32 Haloperidol Lactate (Haldol) 2 mg Q4H PRN IM Agitation 02/25/17 15:15 03/27/17 15:14 02/25/17 22:38 Hydralazine HCl (Apresoline) 25 mg Q4H PRN ORAL SBP > 160mmHg 02/25/17 15:15 03/27/17 15:14 03/02/17 02:32 Lidocaine (Xylocaine 1% MPF 5ml) 10 ml Q4H PRN HHN cough 02/25/17 15:15 03/19/17 15:14 Lisinopril (Prinivil) 20 mg BID ORAL 02/25/17 18:00 03/27/17 17:59 03/02/17 17:22 Lorazepam (Ativan 2mg/ml 1ml) 2 mg Q4H PRN IV For Anxiety 02/26/17 11:00 03/05/17 10:59 02/28/17 17:22 Meropenem 1 gm/ Sodium Chloride 110 ml @ 220 mls/hr Q12HR IVPB 02/25/17 21:00 03/03/17 23:59 03/02/17 08:31 Metoclopramide HCl (Reglan) 10 mg Q8H IVP 02/28/17 12:32 03/30/17 12:31 03/02/17 12:57 Midazolam HCl 100 ml @ 0 mls/hr Q24H IVPB 03/01/17 04:00 03/08/17 03:59 03/02/17 17:43 Morphine Sulfate (Morphine Sulfate) 4 mg Q4H PRN IVP Breakthrough Pain 02/26/17 11:00 03/07/17 10:59 02/27/17 01:01 Ondansetron HCl (Zofran) 4 mg Q6H PRN IVP Nausea & Vomiting 02/25/17 15:15 03/17/17 15:14 Pantoprazole (Protonix) 40 mg DAILY IV 02/27/17 09:00 03/29/17 08:59 03/02/17 08:31 Polyethylene Glycol (Miralax) 17 gm DAILYPRN PRN ORAL Constipation First line agent 02/25/17 15:15 03/17/17 15:14 Pravastatin Sodium (Pravachol) 20 mg BEDTIME ORAL 02/25/17 21:00 03/18/17 20:59 03/01/17 20:39 Prednisone (predniSONE) 40 mg DAILY ORAL 02/26/17 09:00 03/28/17 08:59 03/02/17 08:32 Pregabalin (Lyrica) 150 mg THREE TIMES A DAY ORAL 02/25/17 18:00 03/18/17 12:59 03/02/17 17:22 Promethazine HCl/ Codeine (Phenergan with Codeine) 5 ml Q4H PRN ORAL UNRELIEVED COUGH 02/25/17 15:15 03/18/17 15:14 Ranitidine HCl (Zantac) 150 mg QPM ORAL 02/25/17 16:30 03/27/17 16:29 03/02/17 17:22 Allergies: Coded Allergies: TETRACYCLINE (Unverified Allergy, Unknown, 07/24/14) ROS Limited/Unobtainable: Yes Subjective 76 YO F admitted with shortness of breath. Now pneumonia. Cover for Int Daniel- Dr Cedillo. ICU. CT chest=occlusion left mainstem bronchus-Intubated 02/25/17. Failed weaning protocol Objective Last Vital Signs Date Time Temp Pulse Resp B/P (MAP) Pulse Ox O2 Delivery O2 Flow Rate FiO2 03/02/17 19:00 75 17 106/47 98 Mechanical Ventilator 40 03/02/17 16:00 98.9 02/26/17 06:45 15.0 Laboratory Tests Test 03/02/17 04:00 03/02/17 07:45 White Blood Count 9.4 K/UL (4.8-10.8) Red Blood Count 2.54 M/UL (4.20-5.40) L Hemoglobin 8.4 G/DL (12.0-16.0) L Hematocrit 25.9 % (37.0-47.0) L Mean Corpuscular Volume 102 FL (80-99) H Mean Corpuscular Hemoglobin 33.0 PG (27.0-31.0) H Mean Corpuscular Hemoglobin Concent 32.4 G/DL (32.0-36.0) Red Cell Distribution Width 12.0 % (11.6-14.8) Platelet Count 242 K/UL (150-450) Mean Platelet Volume 8.2 FL (6.5-10.1) Neutrophils (%) (Auto) 67.5 % (45.0-75.0) Lymphocytes (%) (Auto) 24.6 % (20.0-45.0) Monocytes (%) (Auto) 7.5 % (1.0-10.0) Eosinophils (%) (Auto) 0.1 % (0.0-3.0) Basophils (%) (Auto) 0.4 % (0.0-2.0) Sodium Level 147 MMOL/L (136-145) H Potassium Level 3.0 MMOL/L (3.5-5.1) L Chloride Level 110 MMOL/L (98-107) H Carbon Dioxide Level 34 MMOL/L (21-32) H Anion Gap 3 mmol/L (5-15) L Blood Urea Nitrogen 36 mg/dL (7-18) H Creatinine 0.7 MG/DL (0.55-1.30) Estimat Glomerular Filtration Rate mL/min (>60) Glucose Level 138 MG/DL (74-106) H Calcium Level 9.1 MG/DL (8.5-10.1) Phosphorus Level 3.4 MG/DL (2.5-4.9) Magnesium Level 1.9 MG/DL (1.8-2.4) Total Bilirubin 0.5 MG/DL (0.2-1.0) Aspartate Amino Transf (AST/SGOT) 12 U/L (15-37) L Alanine Aminotransferase (ALT/SGPT) 12 U/L (12-78) Alkaline Phosphatase 40 U/L (46-116) L Total Protein 6.1 G/DL (6.4-8.2) L Albumin 2.3 G/DL (3.4-5.0) L Globulin 3.8 g/dL Albumin/Globulin Ratio 0.6 (1.0-2.7) L Arterial Blood pH 7.509 (7.350-7.450) Arterial Blood Partial Pressure CO2 41.0 mmHg (35.0-45.0) Arterial Blood Partial Pressure O2 81.6 mmHg (75.0-100.0) Arterial Blood HCO3 31.9 mmol/L (22.0-26.0) H Arterial Blood Oxygen Saturation 94.9 % (92.0-98.0) Arterial Blood Base Excess 8.2 Scooby Test Positive Intake and Output 03/02/17 03/03/17 19:00 07:00 Intake Total 1300 ml Output Total 590 ml Balance 710 ml Free Water 200 ml IV Total 610 ml Tube Feeding 490 ml Output Urine Total 590 ml # Bowel Movements 1 Objective General Appearance: WD/WN, no apparent distress, alert EENT: PERRL/EOMI, normal ENT inspection, TMs normal Neck: non-tender, normal alignment, supple, normal inspection Cardiovascular: normal peripheral pulses, normal rate, regular rhythm, no gallop/murmur, no JVD Respiratory/Chest: Mech Vent; chest wall non-tender, respiratory distress, decreased breath sounds, crackles/rales, rhonchi - bilaterally, expiratory wheezing Abdomen: normal bowel sounds, non tender, soft, no organomegaly, no mass Extremities: normal range of motion Neurologic: front desk specialist II-XII 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 (8) Pneumonia Assessment & Plan: Continue Meropenem and vanco. See ID and pulmonary notes. (9) COPD exacerbation Assessment & Plan: Continue IV solumedrol and xopenex/atrovent nebs. See pulmonary note. (10) Diastolic CHF Assessment & Plan: See cardiology note. 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 S/P intubation to aerate left lung-see pulmonary note. D/W pulmonary Dr Hernandez (14) Respiratory failure requiring intubation Assessment & Plan: Failed weaning; Weaning trial tomorrow-see pulm note ZEB FUENTES Mar 02, 2017 19:18
--- NOTE | 2017-03-02 20:40 | Cardiology Progress Note ---
Assessment/Plan Assessment/Plan 1. Respiratory failure. 2. Chronic obstructive pulmonary disease exacerbation. 3. Questionable pneumonia. 4. History of mitral regurgitation of significant degree. 5. History of subdural hematomas and intracranial hemorrhage. 6. History of breast cancer. 7. Anemia. 8. History of Clostridium difficile colitis. 9. History of anxiety. 10. Sinus tachycardia secondary to above. 11. Htn 12. CHF acute diastolic 13. l m bronchus occlusion with debris 14. lung collapase 15 Hypotension resolved 16. alkalosis vent spport remains in icu intubated labs reviewed bp a times high d/w rn earlier fpr prn med tele sinus wean as feasible Subjective ROS Limited/Unobtainable: Yes Subjective on vent Objective Last 24 Hour Vital Signs Date Time Temp Pulse Resp B/P (MAP) Pulse Ox O2 Delivery O2 Flow Rate FiO2 03/02/17 19:17 75 16 40 03/02/17 19:00 75 17 106/47 98 Mechanical Ventilator 40 03/02/17 19:00 16 03/02/17 18:30 74 17 104/47 98 Mechanical Ventilator 40 03/02/17 18:21 98.9 03/02/17 18:00 16 03/02/17 18:00 75 17 112/75 98 Mechanical Ventilator 40 03/02/17 17:43 16 03/02/17 17:30 76 17 108/45 98 Mechanical Ventilator 40 03/02/17 17:22 129/54 03/02/17 17:15 77 16 40 03/02/17 17:00 82 17 129/54 98 Mechanical Ventilator 40 03/02/17 17:00 16 03/02/17 16:30 79 17 99/48 98 Mechanical Ventilator 40 03/02/17 16:00 40 03/02/17 16:00 21 03/02/17 16:00 98.9 80 17 95/45 98 Mechanical Ventilator 40 03/02/17 15:30 81 17 97/46 98 Mechanical Ventilator 40 03/02/17 15:00 83 17 111/52 98 Mechanical Ventilator 40 03/02/17 15:00 16 03/02/17 14:40 90 16 40 03/02/17 14:30 89 17 130/64 98 Mechanical Ventilator 40 03/02/17 14:00 92 17 150/69 98 Mechanical Ventilator 40 03/02/17 14:00 22 03/02/17 13:30 92 17 151/70 98 Mechanical Ventilator 40 03/02/17 13:00 23 03/02/17 13:00 89 17 166/81 98 Mechanical Ventilator 40 03/02/17 12:40 75 16 40 03/02/17 12:30 93 17 175/81 96 Mechanical Ventilator 40 03/02/17 12:14 84 178/68 03/02/17 12:10 21 03/02/17 12:00 20 03/02/17 12:00 98.9 89 19 178/68 96 Mechanical Ventilator 40 03/02/17 12:00 85 03/02/17 11:30 82 17 179/69 96 Mechanical Ventilator 40 03/02/17 11:00 22 03/02/17 11:00 81 17 179/67 96 Mechanical Ventilator 40 03/02/17 10:42 70 16 40 03/02/17 10:30 82 16 173/107 97 Mechanical Ventilator 40 03/02/17 10:04 23 03/02/17 10:00 79 16 166/72 97 Mechanical Ventilator 40 03/02/17 10:00 22 03/02/17 09:30 83 16 157/73 97 Mechanical Ventilator 40 03/02/17 09:00 22 03/02/17 09:00 81 16 174/80 97 Mechanical Ventilator 40 03/02/17 08:34 69 16 40 03/02/17 08:33 170/88 03/02/17 08:31 79 170/88 03/02/17 08:30 77 16 170/88 97 Mechanical Ventilator 40 03/02/17 08:00 98.8 77 16 153/74 97 Mechanical Ventilator 40 03/02/17 08:00 77 03/02/17 08:00 21 03/02/17 07:00 16 03/02/17 07:00 66 16 155/60 97 Mechanical Ventilator 40 03/02/17 06:46 16 03/02/17 06:42 65 16 40 03/02/17 06:30 65 16 151/63 97 Mechanical Ventilator 40 03/02/17 06:00 68 16 157/68 97 Mechanical Ventilator 40 03/02/17 05:30 79 17 170/95 97 Mechanical Ventilator 40 03/02/17 05:02 76 16 40 03/02/17 05:00 16 03/02/17 05:00 78 16 175/75 98 Mechanical Ventilator 40 03/02/17 04:30 79 17 154/93 98 Mechanical Ventilator 40 03/02/17 04:00 16 03/02/17 04:00 98.8 78 16 159/67 97 Mechanical Ventilator 40 03/02/17 03:30 80 16 167/64 97 Mechanical Ventilator 40 03/02/17 03:29 81 16 40 03/02/17 03:01 78 03/02/17 03:00 82 17 174/74 97 Mechanical Ventilator 40 03/02/17 03:00 17 03/02/17 02:32 167/63 03/02/17 02:30 69 16 172/63 97 Mechanical Ventilator 40 03/02/17 02:00 16 03/02/17 02:00 80 16 164/60 96 Mechanical Ventilator 40 03/02/17 01:00 80 17 170/71 97 Mechanical Ventilator 40 03/02/17 00:53 80 19 40 03/02/17 00:34 17 03/02/17 00:30 80 16 176/72 96 Mechanical Ventilator 40 03/02/17 00:00 98.0 80 16 166/72 97 Mechanical Ventilator 40 03/02/17 00:00 17 03/02/17 00:00 75 03/01/17 23:30 80 16 158/62 98 Mechanical Ventilator 40 03/01/17 23:14 83 19 40 03/01/17 23:00 81 16 151/65 98 Mechanical Ventilator 40 03/01/17 23:00 17 03/01/17 22:30 83 17 144/59 98 Mechanical Ventilator 40 03/01/17 22:00 81 17 135/59 98 Mechanical Ventilator 40 03/01/17 22:00 16 03/01/17 21:30 83 17 134/53 98 Mechanical Ventilator 40 03/01/17 21:00 81 16 144/61 98 Mechanical Ventilator 40 03/01/17 21:00 16 03/01/17 20:55 82 16 40 03/01/17 20:40 84 131/102 General Appearance: no apparent distress Neck: supple Cardiovascular: normal rate, regular rhythm Respiratory/Chest: lungs clear Abdomen: normal bowel sounds, non tender, soft Extremities: no swelling Intake and Output 03/02/17 03/03/17 19:00 07:00 Intake Total 1365 ml Output Total 620 ml Balance 745 ml Free Water 200 ml IV Total 630 ml Tube Feeding 535 ml Output Urine Total 620 ml # Bowel Movements 1 Laboratory Tests Test 03/02/17 04:00 03/02/17 07:45 White Blood Count 9.4 K/UL (4.8-10.8) Red Blood Count 2.54 M/UL (4.20-5.40) L Hemoglobin 8.4 G/DL (12.0-16.0) L Hematocrit 25.9 % (37.0-47.0) L Mean Corpuscular Volume 102 FL (80-99) H Mean Corpuscular Hemoglobin 33.0 PG (27.0-31.0) H Mean Corpuscular Hemoglobin Concent 32.4 G/DL (32.0-36.0) Red Cell Distribution Width 12.0 % (11.6-14.8) Platelet Count 242 K/UL (150-450) Mean Platelet Volume 8.2 FL (6.5-10.1) Neutrophils (%) (Auto) 67.5 % (45.0-75.0) Lymphocytes (%) (Auto) 24.6 % (20.0-45.0) Monocytes (%) (Auto) 7.5 % (1.0-10.0) Eosinophils (%) (Auto) 0.1 % (0.0-3.0) Basophils (%) (Auto) 0.4 % (0.0-2.0) Sodium Level 147 MMOL/L (136-145) H Potassium Level 3.0 MMOL/L (3.5-5.1) L Chloride Level 110 MMOL/L (98-107) H Carbon Dioxide Level 34 MMOL/L (21-32) H Anion Gap 3 mmol/L (5-15) L Blood Urea Nitrogen 36 mg/dL (7-18) H Creatinine 0.7 MG/DL (0.55-1.30) Estimat Glomerular Filtration Rate mL/min (>60) Glucose Level 138 MG/DL (74-106) H Calcium Level 9.1 MG/DL (8.5-10.1) Phosphorus Level 3.4 MG/DL (2.5-4.9) Magnesium Level 1.9 MG/DL (1.8-2.4) Total Bilirubin 0.5 MG/DL (0.2-1.0) Aspartate Amino Transf (AST/SGOT) 12 U/L (15-37) L Alanine Aminotransferase (ALT/SGPT) 12 U/L (12-78) Alkaline Phosphatase 40 U/L (46-116) L Total Protein 6.1 G/DL (6.4-8.2) L Albumin 2.3 G/DL (3.4-5.0) L Globulin 3.8 g/dL Albumin/Globulin Ratio 0.6 (1.0-2.7) L Arterial Blood pH 7.509 (7.350-7.450) Arterial Blood Partial Pressure CO2 41.0 mmHg (35.0-45.0) Arterial Blood Partial Pressure O2 81.6 mmHg (75.0-100.0) Arterial Blood HCO3 31.9 mmol/L (22.0-26.0) H Arterial Blood Oxygen Saturation 94.9 % (92.0-98.0) Arterial Blood Base Excess 8.2 Scooby Test Positive JEFFERSON ROMEO Mar 02, 2017 20:40
--- NOTE | 2017-03-02 22:36 | General Progress Note ---
Assessment/Plan Assessment/Plan anxiety d/o' -cont current meds -provided ro/st Subjective Allergies: Coded Allergies: TETRACYCLINE (Unverified Allergy, Unknown, 07/24/14) Subjective the pt os doing well much improved/ Objective Last 24 Hour Vital Signs Date Time Temp Pulse Resp B/P (MAP) Pulse Ox O2 Delivery O2 Flow Rate FiO2 03/02/17 22:00 17 03/02/17 22:00 75 17 106/45 98 Mechanical Ventilator 40 03/02/17 21:30 75 17 106/45 98 Mechanical Ventilator 40 03/02/17 21:00 76 17 105/47 98 Mechanical Ventilator 40 03/02/17 21:00 16 03/02/17 20:58 76 111/45 03/02/17 20:44 76 16 40 03/02/17 20:30 76 16 104/46 99 Mechanical Ventilator 40 03/02/17 20:00 98.9 75 16 106/47 99 Mechanical Ventilator 40 03/02/17 20:00 17 03/02/17 19:30 78 17 103/44 98 Mechanical Ventilator 40 03/02/17 19:17 75 16 40 03/02/17 19:00 75 17 106/47 98 Mechanical Ventilator 40 03/02/17 19:00 16 03/02/17 18:30 74 17 104/47 98 Mechanical Ventilator 40 03/02/17 18:21 98.9 03/02/17 18:00 16 03/02/17 18:00 75 17 112/75 98 Mechanical Ventilator 40 03/02/17 17:43 16 03/02/17 17:30 76 17 108/45 98 Mechanical Ventilator 40 03/02/17 17:22 129/54 03/02/17 17:15 77 16 40 03/02/17 17:00 82 17 129/54 98 Mechanical Ventilator 40 03/02/17 17:00 16 03/02/17 16:30 79 17 99/48 98 Mechanical Ventilator 40 03/02/17 16:00 40 03/02/17 16:00 21 03/02/17 16:00 98.9 80 17 95/45 98 Mechanical Ventilator 40 03/02/17 15:30 81 17 97/46 98 Mechanical Ventilator 40 03/02/17 15:00 83 17 111/52 98 Mechanical Ventilator 40 03/02/17 15:00 16 03/02/17 14:40 90 16 40 03/02/17 14:30 89 17 130/64 98 Mechanical Ventilator 40 03/02/17 14:00 92 17 150/69 98 Mechanical Ventilator 40 03/02/17 14:00 22 03/02/17 13:30 92 17 151/70 98 Mechanical Ventilator 40 03/02/17 13:00 23 03/02/17 13:00 89 17 166/81 98 Mechanical Ventilator 40 03/02/17 12:40 75 16 40 03/02/17 12:30 93 17 175/81 96 Mechanical Ventilator 40 03/02/17 12:14 84 178/68 03/02/17 12:10 21 03/02/17 12:00 20 03/02/17 12:00 98.9 89 19 178/68 96 Mechanical Ventilator 40 03/02/17 12:00 85 03/02/17 11:30 82 17 179/69 96 Mechanical Ventilator 40 03/02/17 11:00 22 03/02/17 11:00 81 17 179/67 96 Mechanical Ventilator 40 03/02/17 10:42 70 16 40 03/02/17 10:30 82 16 173/107 97 Mechanical Ventilator 40 03/02/17 10:04 23 03/02/17 10:00 79 16 166/72 97 Mechanical Ventilator 40 03/02/17 10:00 22 03/02/17 09:30 83 16 157/73 97 Mechanical Ventilator 40 03/02/17 09:00 22 03/02/17 09:00 81 16 174/80 97 Mechanical Ventilator 40 03/02/17 08:34 69 16 40 03/02/17 08:33 170/88 03/02/17 08:31 79 170/88 03/02/17 08:30 77 16 170/88 97 Mechanical Ventilator 40 03/02/17 08:00 98.8 77 16 153/74 97 Mechanical Ventilator 40 03/02/17 08:00 77 03/02/17 08:00 21 03/02/17 07:00 16 03/02/17 07:00 66 16 155/60 97 Mechanical Ventilator 40 03/02/17 06:46 16 03/02/17 06:42 65 16 40 03/02/17 06:30 65 16 151/63 97 Mechanical Ventilator 40 03/02/17 06:00 68 16 157/68 97 Mechanical Ventilator 40 03/02/17 05:30 79 17 170/95 97 Mechanical Ventilator 40 03/02/17 05:02 76 16 40 03/02/17 05:00 16 03/02/17 05:00 78 16 175/75 98 Mechanical Ventilator 40 03/02/17 04:30 79 17 154/93 98 Mechanical Ventilator 40 03/02/17 04:00 16 03/02/17 04:00 98.8 78 16 159/67 97 Mechanical Ventilator 40 03/02/17 03:30 80 16 167/64 97 Mechanical Ventilator 40 03/02/17 03:29 81 16 40 03/02/17 03:01 78 03/02/17 03:00 82 17 174/74 97 Mechanical Ventilator 40 03/02/17 03:00 17 03/02/17 02:32 167/63 03/02/17 02:30 69 16 172/63 97 Mechanical Ventilator 40 03/02/17 02:00 16 03/02/17 02:00 80 16 164/60 96 Mechanical Ventilator 40 03/02/17 01:00 80 17 170/71 97 Mechanical Ventilator 40 03/02/17 00:53 80 19 40 03/02/17 00:34 17 03/02/17 00:30 80 16 176/72 96 Mechanical Ventilator 40 03/02/17 00:00 98.0 80 16 166/72 97 Mechanical Ventilator 40 03/02/17 00:00 17 03/02/17 00:00 75 03/01/17 23:30 80 16 158/62 98 Mechanical Ventilator 40 03/01/17 23:14 83 19 40 03/01/17 23:00 81 16 151/65 98 Mechanical Ventilator 40 03/01/17 23:00 17 Intake and Output 03/02/17 03/03/17 19:00 07:00 Intake Total 1365 ml 415 ml Output Total 620 ml 170 ml Balance 745 ml 245 ml Free Water 200 ml 50 ml IV Total 630 ml 170 ml Tube Feeding 535 ml 135 ml Other 60 ml Output Urine Total 620 ml 170 ml # Bowel Movements 1 Laboratory Tests 03/02/17 04:00: White Blood Count 9.4, Red Blood Count 2.54L, Hemoglobin 8.4L, Hematocrit 25.9L , Mean Corpuscular Volume 102H, Mean Corpuscular Hemoglobin 33.0H, Mean Corpuscular Hemoglobin Concent 32.4, Red Cell Distribution Width 12.0, Platelet Count 242, Mean Platelet Volume 8.2, Neutrophils (%) (Auto) 67.5, Lymphocytes (% ) (Auto) 24.6, Monocytes (%) (Auto) 7.5, Eosinophils (%) (Auto) 0.1, Basophils ( %) (Auto) 0.4, Sodium Level 147H, Potassium Level 3.0L, Chloride Level 110H, Carbon Dioxide Level 34H, Anion Gap 3L, Blood Urea Nitrogen 36H, Creatinine 0.7 , Estimat Glomerular Filtration Rate , Glucose Level 138H, Calcium Level 9.1, Phosphorus Level 3.4, Magnesium Level 1.9, Total Bilirubin 0.5, Aspartate Amino Transf (AST/SGOT) 12L, Alanine Aminotransferase (ALT/SGPT) 12, Alkaline Phosphatase 40L, Total Protein 6.1L, Albumin 2.3L, Globulin 3.8, Albumin/ Globulin Ratio 0.6L 03/02/17 07:45: Arterial Blood pH 7.509H, Arterial Blood Partial Pressure CO2 41.0, Arterial Blood Partial Pressure O2 81.6, Arterial Blood HCO3 31.9H, Arterial Blood Oxygen Saturation 94.9, Arterial Blood Base Excess 8.2, Scooby Test Positive Height (Feet): 5 Height (Inches): 7.00 Weight (Pounds): 116 Wan Stern M.D. Mar 02, 2017 22:36
[2017-03-03] VITALS (41 sets, daily range): BP systolic 112–167; BP diastolic 46–100
[2017-03-03] MEDS: Metoclopramide 10mg/2ml Inj IVP SCH ×3 (04:57→20:41)
[2017-03-03 05:53] LABS: BASOPHILS % (AUTO) 0.3 % (0.0-2.0); EOSINOPHILS % (AUTO) 0.4 % (0.0-3.0); HEMOGLOBIN 8.3 G/DL (12.0-16.0); LYMPHOCYTES % (AUTO) 30.5 % (20.0-45.0); MEAN CORPUSCULAR VOLUME 102 FL (80-99); MONOCYTES % (AUTO) 6.8 % (1.0-10.0); PLATELET COUNT 224 K/UL (150-450); RED BLOOD COUNT 2.46 M/UL (4.20-5.40); WHITE BLOOD COUNT 9.5 K/UL (4.8-10.8)
[2017-03-03 06:30] LABS: ALANINE AMINOTRANSFERASE 12 U/L (12-78); ALBUMIN 2.1 G/DL (3.4-5.0); ALBUMIN/GLOBULIN RATIO 0.6 (1.0-2.7); ALKALINE PHOSPHATASE 39 U/L (46-116); ANION GAP 6 mmol/L (5-15); ASPARTATE AMINO TRANSFERASE 11 U/L (15-37); BILIRUBIN,TOTAL 0.3 MG/DL (0.2-1.0); BLOOD UREA NITROGEN 35 mg/dL (7-18); CALCIUM 9.1 MG/DL (8.5-10.1); CARBON DIOXIDE 30 MMOL/L (21-32); CHLORIDE 111 MMOL/L (98-107); CREATININE 0.7 MG/DL (0.55-1.30); PHOSPHORUS 2.4 MG/DL (2.5-4.9); POTASSIUM 3.7 MMOL/L (3.5-5.1); SODIUM 147 MMOL/L (136-145)
[2017-03-03] MEDS: Pantoprazole Inj IV SCH (09:29)
[2017-03-03] MEDS: Meropenem 1 GM in NS 110 ML IVPB SCH ×2 (09:30→20:46)
[2017-03-03] MEDS: Allopurinol 100mg Tab ORAL SCH (09:31)
[2017-03-03] MEDS: Lisinopril 20mg tab ORAL SCH ×2 (09:31→17:49)
[2017-03-03] MEDS: Aspirin EC 81mg tab ORAL SCH (09:32)
[2017-03-03] MEDS: Carvedilol 6.25mg Tab ORAL SCH ×2 (09:32→20:41)
[2017-03-03] MEDS: Lyrica 75mg cap ORAL SCH ×3 (09:34→17:49)
--- NOTE | 2017-03-03 09:45 | Infectious Diseases Prog Note ---
Assessment/Plan Assessment/Plan Abx: IV Vanco 02/15-03/01 Cefepime 02/15-02/18 Meropenem 02/18- Assesment: Acute hypoxic resp failure, - combination of COPD exacerbation and PNA; worsened 02/18; Intubated 02/26 -venous duplex 02/16 no DVT PNA; worsening- r/o MDRO, r/o fungal pneumonia. SGS(-), Cx Neg - SP bronch 02/26: BAL pending -CXR 03/01: Patchy, mainly interstitial appearing disease noted bilaterally. Findings may be due to infiltrates or CHF - CT Chest 02/24: Near-complete occlusion of the left mainstem bronchus and proximal lobar bronchi, probably by debris. Extensive resultant atelectasis and consolidation of nearly the entire left lung. Less extensive consolidation within the right lung, nonspecific as regards etiology, likely secondary to pneumonia or edema -CXR 02/23: Better inspiration currently. Overall improved aeration of the right mid and lower lung, with decreased dense consolidation and is still fairly extensive parenchymal opacity. The right pleural space is clear. Large left pleural effusion is again demonstrated, and is increased from the prior exam. There is also increasing consolidation of the residual aerated lung in the left upper hemithorax. -CXR: Limited evaluation due to significant degree of soft tissue attenuation. Suspect pneumonia at the right lung base. -Cr Ag serum neg; cocci ab pending L pleural effusion - improved Leukocytosis, mild - recurrent, mild (on steroids)- resolved Fever x1 COPD on home O2 Hx of Cdiff DM2 Chronic abd pain hx of MRSA bacteremia 07/2015 TCA allergy Full Code fibromyalgia, HTN, HLD, R breast cancer,Tobacco abuse (stopped 4 years ago), Anxiety, AOCD Plan: -Last day IV Meropenem d# -s/p 14 d IV Vancomycin 03/01 -s/p 6d prophylatic PO vanco 02/21 -s/p 4 d Cefepime 02/18 -cold compresses to both arm -f/u venous duplex BUE -f/u Cocci ab -Monitor CBC/BMP, temperatures -Aspiration precautions - vent support, wean as tolerated Discussed with RN. Subjective Allergies: Coded Allergies: TETRACYCLINE (Unverified Allergy, Unknown, 07/24/14) Subjective afebrile no leukocytosis remains intubated L>R arm swelling Objective Vital Signs Last 24 Hour Vital Signs Date Time Temp Pulse Resp B/P (MAP) Pulse Ox O2 Delivery O2 Flow Rate FiO2 03/03/17 09:32 93 163/72 03/03/17 09:31 163/72 03/03/17 08:52 88 37 40 03/03/17 08:51 100 03/03/17 07:30 88 17 157/67 98 Mechanical Ventilator 40 03/03/17 07:04 79 21 Mechanical Ventilator 40 03/03/17 07:01 81 20 40 03/03/17 07:00 79 17 141/61 98 Mechanical Ventilator 40 03/03/17 07:00 16 03/03/17 06:30 80 17 130/64 98 Mechanical Ventilator 40 03/03/17 06:00 16 03/03/17 06:00 79 17 130/57 98 Mechanical Ventilator 40 03/03/17 05:30 80 17 126/56 98 Mechanical Ventilator 40 03/03/17 05:22 77 17 40 03/03/17 05:00 77 17 127/56 98 Mechanical Ventilator 40 03/03/17 05:00 17 03/03/17 04:30 77 17 122/62 98 Mechanical Ventilator 40 03/03/17 04:00 78 03/03/17 04:00 16 03/03/17 04:00 98.9 79 16 112/51 99 Mechanical Ventilator 40 03/03/17 03:30 77 17 118/100 98 Mechanical Ventilator 40 03/03/17 03:08 71 16 40 03/03/17 03:00 16 03/03/17 03:00 72 17 137/52 98 Mechanical Ventilator 40 03/03/17 02:30 73 17 130/51 98 Mechanical Ventilator 40 03/03/17 02:00 16 03/03/17 02:00 72 17 120/46 98 Mechanical Ventilator 40 03/03/17 01:30 76 17 121/48 98 Mechanical Ventilator 40 03/03/17 01:04 72 16 40 03/03/17 01:00 16 03/03/17 01:00 71 17 123/47 98 Mechanical Ventilator 40 03/03/17 00:30 70 17 131/49 98 Mechanical Ventilator 40 03/03/17 00:00 98.9 71 16 134/52 99 Mechanical Ventilator 40 03/03/17 00:00 16 03/03/17 00:00 40 03/03/17 00:00 75 03/02/17 23:57 16 03/02/17 23:30 73 17 127/52 98 Mechanical Ventilator 40 03/02/17 23:00 80 17 127/52 98 Mechanical Ventilator 40 03/02/17 23:00 16 03/02/17 22:54 80 16 40 03/02/17 22:30 72 17 134/52 98 Mechanical Ventilator 40 03/02/17 22:00 17 03/02/17 22:00 75 17 106/45 98 Mechanical Ventilator 40 03/02/17 21:30 75 17 106/45 98 Mechanical Ventilator 40 03/02/17 21:00 76 17 105/47 98 Mechanical Ventilator 40 03/02/17 21:00 16 03/02/17 20:58 76 111/45 03/02/17 20:44 76 16 40 03/02/17 20:30 76 16 104/46 99 Mechanical Ventilator 40 03/02/17 20:00 98.9 75 16 106/47 99 Mechanical Ventilator 40 03/02/17 20:00 81 03/02/17 20:00 17 03/02/17 20:00 40 03/02/17 19:30 78 17 103/44 98 Mechanical Ventilator 40 03/02/17 19:17 75 16 40 03/02/17 19:00 75 17 106/47 98 Mechanical Ventilator 40 03/02/17 19:00 16 03/02/17 18:30 74 17 104/47 98 Mechanical Ventilator 40 03/02/17 18:21 98.9 03/02/17 18:00 16 03/02/17 18:00 75 17 112/75 98 Mechanical Ventilator 40 03/02/17 17:43 16 03/02/17 17:30 76 17 108/45 98 Mechanical Ventilator 40 03/02/17 17:22 129/54 03/02/17 17:15 77 16 40 03/02/17 17:00 82 17 129/54 98 Mechanical Ventilator 40 03/02/17 17:00 16 03/02/17 16:30 79 17 99/48 98 Mechanical Ventilator 40 03/02/17 16:00 40 03/02/17 16:00 21 03/02/17 16:00 98.9 80 17 95/45 98 Mechanical Ventilator 40 03/02/17 15:30 81 17 97/46 98 Mechanical Ventilator 40 03/02/17 15:00 83 17 111/52 98 Mechanical Ventilator 40 03/02/17 15:00 16 03/02/17 14:40 90 16 40 03/02/17 14:30 89 17 130/64 98 Mechanical Ventilator 40 03/02/17 14:00 92 17 150/69 98 Mechanical Ventilator 40 03/02/17 14:00 22 03/02/17 13:30 92 17 151/70 98 Mechanical Ventilator 40 03/02/17 13:00 23 03/02/17 13:00 89 17 166/81 98 Mechanical Ventilator 40 03/02/17 12:40 75 16 40 03/02/17 12:30 93 17 175/81 96 Mechanical Ventilator 40 03/02/17 12:14 84 178/68 03/02/17 12:10 21 03/02/17 12:00 20 03/02/17 12:00 98.9 89 19 178/68 96 Mechanical Ventilator 40 03/02/17 12:00 85 03/02/17 11:30 82 17 179/69 96 Mechanical Ventilator 40 03/02/17 11:00 22 03/02/17 11:00 81 17 179/67 96 Mechanical Ventilator 40 03/02/17 10:42 70 16 40 03/02/17 10:30 82 16 173/107 97 Mechanical Ventilator 40 03/02/17 10:04 23 03/02/17 10:00 79 16 166/72 97 Mechanical Ventilator 40 03/02/17 10:00 22 Height (Feet): 5 Height (Inches): 7.00 Weight (Pounds): 114 Objective General Appearance: lethargic but arousable HEENT: PERRL, ETT in place, atraumatic head Neck: supple Respiratory: scattered wheezing Cardiovascular: regular rate, rhythmm, no murmurs Gastrointestinal: normal inspection, non tender, no mass, non-distended Musculoskeletal: L>R arm swelling and erythema Skin: no lesions or rashes Laboratory Tests Test 03/03/17 04:30 03/03/17 09:10 White Blood Count 9.5 K/UL (4.8-10.8) Red Blood Count 2.46 M/UL (4.20-5.40) L Hemoglobin 8.3 G/DL (12.0-16.0) L Hematocrit 25.0 % (37.0-47.0) L Mean Corpuscular Volume 102 FL (80-99) H Mean Corpuscular Hemoglobin 33.7 PG (27.0-31.0) H Mean Corpuscular Hemoglobin Concent 33.1 G/DL (32.0-36.0) Red Cell Distribution Width 12.0 % (11.6-14.8) Platelet Count 224 K/UL (150-450) Mean Platelet Volume 7.9 FL (6.5-10.1) Neutrophils (%) (Auto) 62.0 % (45.0-75.0) Lymphocytes (%) (Auto) 30.5 % (20.0-45.0) Monocytes (%) (Auto) 6.8 % (1.0-10.0) Eosinophils (%) (Auto) 0.4 % (0.0-3.0) Basophils (%) (Auto) 0.3 % (0.0-2.0) Sodium Level 147 MMOL/L (136-145) H Potassium Level 3.7 MMOL/L (3.5-5.1) Chloride Level 111 MMOL/L (98-107) H Carbon Dioxide Level 30 MMOL/L (21-32) Anion Gap 6 mmol/L (5-15) Blood Urea Nitrogen 35 mg/dL (7-18) H Creatinine 0.7 MG/DL (0.55-1.30) Estimat Glomerular Filtration Rate mL/min (>60) Glucose Level 119 MG/DL (74-106) H Calcium Level 9.1 MG/DL (8.5-10.1) Phosphorus Level 2.4 MG/DL (2.5-4.9) L Magnesium Level 2.0 MG/DL (1.8-2.4) Total Bilirubin 0.3 MG/DL (0.2-1.0) Aspartate Amino Transf (AST/SGOT) 11 U/L (15-37) L Alanine Aminotransferase (ALT/SGPT) 12 U/L (12-78) Alkaline Phosphatase 39 U/L (46-116) L Total Protein 5.8 G/DL (6.4-8.2) L Albumin 2.1 G/DL (3.4-5.0) L Globulin 3.7 g/dL Albumin/Globulin Ratio 0.6 (1.0-2.7) L Arterial Blood pH 7.452 (7.350-7.450) Arterial Blood Partial Pressure CO2 46.4 mmHg (35.0-45.0) H Arterial Blood Partial Pressure O2 109.6 mmHg (75.0-100.0) H Arterial Blood HCO3 31.7 mmol/L (22.0-26.0) H Arterial Blood Oxygen Saturation 97.8 % (92.0-98.0) Arterial Blood Base Excess 6.9 Scooby Test Positive Current Medications Medications (Trade) Dose Ordered Sig/Wilner Route PRN Reason Start Time Stop Time Status Last Admin Dose Admin Acetaminophen (Tylenol) 650 mg Q4H PRN ORAL FEVER 02/25/17 15:15 03/27/17 15:14 02/26/17 16:37 Allopurinol (Zyloprim) 100 mg DAILY ORAL 03/02/17 09:00 04/01/17 08:59 03/03/17 09:31 Amlodipine Besylate (Norvasc) 5 mg DAILYPRN PRN ORAL SBP >160 mmHg. 03/02/17 12:15 04/01/17 12:14 Aspirin (Ecotrin) 81 mg DAILY ORAL 02/26/17 09:00 03/19/17 08:59 03/03/17 09:32 Bisacodyl (Dulcolax) 10 mg DAILYPRN PRN RECTAL Constipation Third Line Agent 02/25/17 15:15 03/27/17 15:14 Carvedilol (Coreg) 6.25 mg Q12HR ORAL 02/25/17 21:00 03/25/17 20:59 03/03/17 09:32 Clonazepam (KlonoPIN) 1 mg DAILY ORAL 03/01/17 09:00 03/08/17 08:59 03/03/17 09:32 Dextrose (Dextrose 50%) STAT PRN IV Hypoglycemia 02/25/17 15:15 03/17/17 15:14 Escitalopram Oxalate (Lexapro) 10 mg DAILY ORAL 02/26/17 09:00 03/20/17 08:59 03/03/17 09:32 Haloperidol Lactate (Haldol) 2 mg Q4H PRN IM Agitation 02/25/17 15:15 03/27/17 15:14 02/25/17 22:38 Hydralazine HCl (Apresoline) 25 mg Q4H PRN ORAL SBP > 160mmHg 02/25/17 15:15 03/27/17 15:14 03/02/17 02:32 Lidocaine (Xylocaine 1% MPF 5ml) 10 ml Q4H PRN HHN cough 02/25/17 15:15 03/19/17 15:14 Lisinopril (Prinivil) 20 mg BID ORAL 02/25/17 18:00 03/27/17 17:59 03/03/17 09:31 Lorazepam (Ativan 2mg/ml 1ml) 2 mg Q4H PRN IV For Anxiety 02/26/17 11:00 03/05/17 10:59 02/28/17 17:22 Meropenem 1 gm/ Sodium Chloride 110 ml @ 220 mls/hr Q12HR IVPB 02/25/17 21:00 03/03/17 23:59 03/03/17 09:30 Metoclopramide HCl (Reglan) 10 mg Q8H IVP 02/28/17 12:32 03/30/17 12:31 03/03/17 04:57 Midazolam HCl 100 ml @ 0 mls/hr Q24H IVPB 03/01/17 04:00 03/08/17 03:59 03/02/17 23:57 Morphine Sulfate (Morphine Sulfate) 4 mg Q4H PRN IVP Breakthrough Pain 02/26/17 11:00 03/07/17 10:59 02/27/17 01:01 Ondansetron HCl (Zofran) 4 mg Q6H PRN IVP Nausea & Vomiting 02/25/17 15:15 03/17/17 15:14 Pantoprazole (Protonix) 40 mg DAILY IV 02/27/17 09:00 03/29/17 08:59 03/03/17 09:29 Polyethylene Glycol (Miralax) 17 gm DAILYPRN PRN ORAL Constipation First line agent 02/25/17 15:15 03/17/17 15:14 Pravastatin Sodium (Pravachol) 20 mg BEDTIME ORAL 02/25/17 21:00 03/18/17 20:59 03/02/17 20:57 Prednisone (predniSONE) 40 mg DAILY ORAL 02/26/17 09:00 03/28/17 08:59 03/03/17 09:32 Pregabalin (Lyrica) 150 mg THREE TIMES A DAY ORAL 02/25/17 18:00 03/18/17 12:59 03/03/17 09:34 Promethazine HCl/ Codeine (Phenergan with Codeine) 5 ml Q4H PRN ORAL UNRELIEVED COUGH 02/25/17 15:15 03/18/17 15:14 Ranitidine HCl (Zantac) 150 mg QPM ORAL 02/25/17 16:30 03/27/17 16:29 03/02/17 17:22 Alyse Traylor M.D. Mar 03, 2017 09:45
--- NOTE | 2017-03-03 10:22 | Pulmonolgy Critical Care Note ---
Critical Care - Asmt/Plan Problems: (1) Acute and chronic respiratory failure ([id number]) (2) COPD (chronic obstructive pulmonary disease) (3) Right middle lobe pneumonia (4) Collapse of left lung Respiratory: monitor respiratory rate, adjust FIO2 Cardiac: continue to monitor HR/BP Renal: F/U I&O Infectious Disease: check cultures Gastrointestinal: continue feedings/current rate, hold feedings Endocrine: check TSH, check HgA1C, continue sliding scale insulin Hematologic: transfuse if hgb<8.5 Neurologic: PRN Ativan, PRN Morphine, keep patient comfortable Prophylaxis: Heparin Notes Reviewed: plant hr manager, cardio, renal Discussed with: nurses, consultants, director of casework departmenttechnical services manager - Objective Last 24 Hour Vital Signs Date Time Temp Pulse Resp B/P (MAP) Pulse Ox O2 Delivery O2 Flow Rate FiO2 03/03/17 10:00 83 34 142/57 98 Mechanical Ventilator 40 03/03/17 09:32 93 163/72 03/03/17 09:31 163/72 03/03/17 09:30 82 26 164/84 98 Mechanical Ventilator 40 03/03/17 09:00 84 26 163/72 98 Mechanical Ventilator 40 03/03/17 08:52 88 37 40 03/03/17 08:51 100 03/03/17 08:30 92 26 166/84 98 Mechanical Ventilator 40 03/03/17 08:00 98.8 93 24 157/75 98 Mechanical Ventilator 40 03/03/17 07:30 88 17 157/67 98 Mechanical Ventilator 40 03/03/17 07:04 79 21 Mechanical Ventilator 40 03/03/17 07:01 81 20 40 03/03/17 07:00 79 17 141/61 98 Mechanical Ventilator 40 03/03/17 07:00 16 03/03/17 06:30 80 17 130/64 98 Mechanical Ventilator 40 03/03/17 06:00 16 03/03/17 06:00 79 17 130/57 98 Mechanical Ventilator 40 03/03/17 05:30 80 17 126/56 98 Mechanical Ventilator 40 03/03/17 05:22 77 17 40 03/03/17 05:00 77 17 127/56 98 Mechanical Ventilator 40 03/03/17 05:00 17 03/03/17 04:30 77 17 122/62 98 Mechanical Ventilator 40 03/03/17 04:00 78 03/03/17 04:00 16 03/03/17 04:00 98.9 79 16 112/51 99 Mechanical Ventilator 40 03/03/17 03:30 77 17 118/100 98 Mechanical Ventilator 40 03/03/17 03:08 71 16 40 03/03/17 03:00 16 03/03/17 03:00 72 17 137/52 98 Mechanical Ventilator 40 03/03/17 02:30 73 17 130/51 98 Mechanical Ventilator 40 03/03/17 02:00 16 03/03/17 02:00 72 17 120/46 98 Mechanical Ventilator 40 03/03/17 01:30 76 17 121/48 98 Mechanical Ventilator 40 03/03/17 01:04 72 16 40 03/03/17 01:00 16 03/03/17 01:00 71 17 123/47 98 Mechanical Ventilator 40 03/03/17 00:30 70 17 131/49 98 Mechanical Ventilator 40 03/03/17 00:00 98.9 71 16 134/52 99 Mechanical Ventilator 40 03/03/17 00:00 16 03/03/17 00:00 40 03/03/17 00:00 75 03/02/17 23:57 16 03/02/17 23:30 73 17 127/52 98 Mechanical Ventilator 40 03/02/17 23:00 80 17 127/52 98 Mechanical Ventilator 40 03/02/17 23:00 16 03/02/17 22:54 80 16 40 03/02/17 22:30 72 17 134/52 98 Mechanical Ventilator 40 03/02/17 22:00 17 03/02/17 22:00 75 17 106/45 98 Mechanical Ventilator 40 03/02/17 21:30 75 17 106/45 98 Mechanical Ventilator 40 03/02/17 21:00 76 17 105/47 98 Mechanical Ventilator 40 03/02/17 21:00 16 03/02/17 20:58 76 111/45 03/02/17 20:44 76 16 40 03/02/17 20:30 76 16 104/46 99 Mechanical Ventilator 40 03/02/17 20:00 98.9 75 16 106/47 99 Mechanical Ventilator 40 03/02/17 20:00 81 03/02/17 20:00 17 03/02/17 20:00 40 03/02/17 19:30 78 17 103/44 98 Mechanical Ventilator 40 10/23/17 19:17 75 16 40 03/02/17 19:00 75 17 106/47 98 Mechanical Ventilator 40 03/02/17 19:00 16 03/02/17 18:30 74 17 104/47 98 Mechanical Ventilator 40 03/02/17 18:21 98.9 03/02/17 18:00 16 03/02/17 18:00 75 17 112/75 98 Mechanical Ventilator 40 03/02/17 17:43 16 03/02/17 17:30 76 17 108/45 98 Mechanical Ventilator 40 03/02/17 17:22 129/54 03/02/17 17:15 77 16 40 03/02/17 17:00 82 17 129/54 98 Mechanical Ventilator 40 03/02/17 17:00 16 03/02/17 16:30 79 17 99/48 98 Mechanical Ventilator 40 03/02/17 16:00 40 03/02/17 16:00 21 03/02/17 16:00 98.9 80 17 95/45 98 Mechanical Ventilator 40 03/02/17 15:30 81 17 97/46 98 Mechanical Ventilator 40 03/02/17 15:00 83 17 111/52 98 Mechanical Ventilator 40 03/02/17 15:00 16 03/02/17 14:40 90 16 40 03/02/17 14:30 89 17 130/64 98 Mechanical Ventilator 40 03/02/17 14:00 92 17 150/69 98 Mechanical Ventilator 40 03/02/17 14:00 22 03/02/17 13:30 92 17 151/70 98 Mechanical Ventilator 40 03/02/17 13:00 23 03/02/17 13:00 89 17 166/81 98 Mechanical Ventilator 40 03/02/17 12:40 75 16 40 03/02/17 12:30 93 17 175/81 96 Mechanical Ventilator 40 03/02/17 12:14 84 178/68 03/02/17 12:10 21 03/02/17 12:00 20 03/02/17 12:00 98.9 89 19 178/68 96 Mechanical Ventilator 40 03/02/17 12:00 85 03/02/17 11:30 82 17 179/69 96 Mechanical Ventilator 40 03/02/17 11:00 22 03/02/17 11:00 81 17 179/67 96 Mechanical Ventilator 40 03/02/17 10:42 70 16 40 03/02/17 10:30 82 16 173/107 97 Mechanical Ventilator 40 Status: sedated Condition: critical HEENT: atraumatic Neck: full ROM Lungs: chest wall tender Heart: HR/BP unstable, regular Abdomen: non-tender, active bowel sounds Extremities: no C/C/E Decubiti: location, stage Accucheck: 124 Critical Care - Subjective ROS Limited/Unobtainable: Yes ICU Day: 6 Intubation Day: 6 EKG Rhythm: Sinus Rhythm FI02: 40 Vent Support Breath Rate: 16 Vent Support Mode: AC Vent Tidal Volume: 500 Sputum Amount: Small PIP: 30 Tube Feeding Amount: 45 I&O: Intake and Output 03/03/17 03/04/17 19:00 07:00 Intake Total 235 ml Output Total 120 ml Balance 115 ml Free Water 100 ml Tube Feeding 135 ml Output Urine Total 120 ml CXR: no change ET-Tube: 8.0 ET Position: 21 Labs: Laboratory Tests Test 03/03/17 04:30 03/03/17 09:10 White Blood Count 9.5 K/UL (4.8-10.8) Red Blood Count 2.46 M/UL (4.20-5.40) L Hemoglobin 8.3 G/DL (12.0-16.0) L Hematocrit 25.0 % (37.0-47.0) L Mean Corpuscular Volume 102 FL (80-99) H Mean Corpuscular Hemoglobin 33.7 PG (27.0-31.0) H Mean Corpuscular Hemoglobin Concent 33.1 G/DL (32.0-36.0) Red Cell Distribution Width 12.0 % (11.6-14.8) Platelet Count 224 K/UL (150-450) Mean Platelet Volume 7.9 FL (6.5-10.1) Neutrophils (%) (Auto) 62.0 % (45.0-75.0) Lymphocytes (%) (Auto) 30.5 % (20.0-45.0) Monocytes (%) (Auto) 6.8 % (1.0-10.0) Eosinophils (%) (Auto) 0.4 % (0.0-3.0) Basophils (%) (Auto) 0.3 % (0.0-2.0) Sodium Level 147 MMOL/L (136-145) H Potassium Level 3.7 MMOL/L (3.5-5.1) Chloride Level 111 MMOL/L (98-107) H Carbon Dioxide Level 30 MMOL/L (21-32) Anion Gap 6 mmol/L (5-15) Blood Urea Nitrogen 35 mg/dL (7-18) H Creatinine 0.7 MG/DL (0.55-1.30) Estimat Glomerular Filtration Rate mL/min (>60) Glucose Level 119 MG/DL (74-106) H Calcium Level 9.1 MG/DL (8.5-10.1) Phosphorus Level 2.4 MG/DL (2.5-4.9) L Magnesium Level 2.0 MG/DL (1.8-2.4) Total Bilirubin 0.3 MG/DL (0.2-1.0) Aspartate Amino Transf (AST/SGOT) 11 U/L (15-37) L Alanine Aminotransferase (ALT/SGPT) 12 U/L (12-78) Alkaline Phosphatase 39 U/L (46-116) L Total Protein 5.8 G/DL (6.4-8.2) L Albumin 2.1 G/DL (3.4-5.0) L Globulin 3.7 g/dL Albumin/Globulin Ratio 0.6 (1.0-2.7) L Arterial Blood pH 7.452 (7.350-7.450) Arterial Blood Partial Pressure CO2 46.4 mmHg (35.0-45.0) H Arterial Blood Partial Pressure O2 109.6 mmHg (75.0-100.0) H Arterial Blood HCO3 31.7 mmol/L (22.0-26.0) H Arterial Blood Oxygen Saturation 97.8 % (92.0-98.0) Arterial Blood Base Excess 6.9 Scooby Test Positive TWIN FONTANEZ Mar 03, 2017 10:22
[2017-03-03] MEDS: Midazolam/D5W 100ml 100 ML IVPB SCH (10:29)
--- NOTE | 2017-03-03 12:11 | General Progress Note ---
Assessment/Plan Status: unchanged Status Narrative remains intubated Assessment/Plan Status: Acute renal failure- etiology? 1900 cc urine out after insertion of shi--JOSE MIGUEL: Moderate right hydronephrosis. Acute on Chronic respiratory failure- day 2 intubation HTN High Cholestrol Pneumonia COPD , exac. Diastolic CHF, Mod MR h/o C dif colitis h/o Breast Ca Anemia Pulm HTN Moderate Plan: weaning in process K and Phos support pulm support adjust BP meds- Change steroids to po and aim to taper Allopurinol continue Shi- Avoid nephrotoxics JOSE MIGUEL: Moderate right hydronephrosis. Subjective ROS Limited/Unobtainable: Yes Allergies: Coded Allergies: TETRACYCLINE (Unverified Allergy, Unknown, 07/24/14) Objective Last 24 Hour Vital Signs Date Time Temp Pulse Resp B/P (MAP) Pulse Ox O2 Delivery O2 Flow Rate FiO2 03/03/17 10:49 78 16 40 03/03/17 10:33 98.9 03/03/17 10:30 77 18 121/57 100 Mechanical Ventilator 40 03/03/17 10:29 18 03/03/17 10:15 40 03/03/17 10:00 83 34 142/57 98 Mechanical Ventilator 40 03/03/17 10:00 18 03/03/17 09:32 93 163/72 03/03/17 09:31 163/72 03/03/17 09:30 82 26 164/84 98 Mechanical Ventilator 40 03/03/17 09:00 84 26 163/72 98 Mechanical Ventilator 40 03/03/17 09:00 26 03/03/17 09:00 40 03/03/17 08:52 88 37 40 03/03/17 08:51 100 03/03/17 08:30 92 26 166/84 98 Mechanical Ventilator 40 03/03/17 08:00 90 03/03/17 08:00 16 03/03/17 08:00 98.8 93 24 157/75 98 Mechanical Ventilator 40 03/03/17 07:30 40 03/03/17 07:30 88 17 157/67 98 Mechanical Ventilator 40 03/03/17 07:04 79 21 Mechanical Ventilator 40 03/03/17 07:01 81 20 40 03/03/17 07:00 79 17 141/61 98 Mechanical Ventilator 40 03/03/17 07:00 16 03/03/17 06:30 80 17 130/64 98 Mechanical Ventilator 40 03/03/17 06:00 16 03/03/17 06:00 79 17 130/57 98 Mechanical Ventilator 40 03/03/17 05:30 80 17 126/56 98 Mechanical Ventilator 40 03/03/17 05:22 77 17 40 03/03/17 05:00 77 17 127/56 98 Mechanical Ventilator 40 03/03/17 05:00 17 03/03/17 04:30 77 17 122/62 98 Mechanical Ventilator 40 03/03/17 04:00 78 03/03/17 04:00 16 03/03/17 04:00 98.9 79 16 112/51 99 Mechanical Ventilator 40 03/03/17 03:30 77 17 118/100 98 Mechanical Ventilator 40 03/03/17 03:08 71 16 40 03/03/17 03:00 16 03/03/17 03:00 72 17 137/52 98 Mechanical Ventilator 40 03/03/17 02:30 73 17 130/51 98 Mechanical Ventilator 40 03/03/17 02:00 16 03/03/17 02:00 72 17 120/46 98 Mechanical Ventilator 40 03/03/17 01:30 76 17 121/48 98 Mechanical Ventilator 40 03/03/17 01:04 72 16 40 03/03/17 01:00 16 03/03/17 01:00 71 17 123/47 98 Mechanical Ventilator 40 03/03/17 00:30 70 17 131/49 98 Mechanical Ventilator 40 03/03/17 00:00 98.9 71 16 134/52 99 Mechanical Ventilator 40 03/03/17 00:00 16 03/03/17 00:00 40 03/03/17 00:00 75 03/02/17 23:57 16 03/02/17 23:30 73 17 127/52 98 Mechanical Ventilator 40 03/02/17 23:00 80 17 127/52 98 Mechanical Ventilator 40 03/02/17 23:00 16 03/02/17 22:54 80 16 40 03/02/17 22:30 72 17 134/52 98 Mechanical Ventilator 40 03/02/17 22:00 17 03/02/17 22:00 75 17 106/45 98 Mechanical Ventilator 40 03/02/17 21:30 75 17 106/45 98 Mechanical Ventilator 40 03/02/17 21:00 76 17 105/47 98 Mechanical Ventilator 40 03/02/17 21:00 16 03/02/17 20:58 76 111/45 03/02/17 20:44 76 16 40 03/02/17 20:30 76 16 104/46 99 Mechanical Ventilator 40 03/02/17 20:00 98.9 75 16 106/47 99 Mechanical Ventilator 40 03/02/17 20:00 81 03/02/17 20:00 17 03/02/17 20:00 40 03/02/17 19:30 78 17 103/44 98 Mechanical Ventilator 40 03/02/17 19:17 75 16 40 03/02/17 19:00 75 17 106/47 98 Mechanical Ventilator 40 03/02/17 19:00 16 03/02/17 18:30 74 17 104/47 98 Mechanical Ventilator 40 03/02/17 18:00 16 03/02/17 18:00 75 17 112/75 98 Mechanical Ventilator 40 03/02/17 17:43 16 03/02/17 17:30 76 17 108/45 98 Mechanical Ventilator 40 03/02/17 17:22 129/54 03/02/17 17:15 77 16 40 03/02/17 17:00 82 17 129/54 98 Mechanical Ventilator 40 03/02/17 17:00 16 03/02/17 16:30 79 17 99/48 98 Mechanical Ventilator 40 03/02/17 16:00 40 03/02/17 16:00 21 03/02/17 16:00 98.9 80 17 95/45 98 Mechanical Ventilator 40 03/02/17 15:30 81 17 97/46 98 Mechanical Ventilator 40 03/02/17 15:00 83 17 111/52 98 Mechanical Ventilator 40 03/02/17 15:00 16 03/02/17 14:40 90 16 40 03/02/17 14:30 89 17 130/64 98 Mechanical Ventilator 40 03/02/17 14:00 92 17 150/69 98 Mechanical Ventilator 40 03/02/17 14:00 22 03/02/17 13:30 92 17 151/70 98 Mechanical Ventilator 40 03/02/17 13:00 23 03/02/17 13:00 89 17 166/81 98 Mechanical Ventilator 40 03/02/17 12:40 75 16 40 03/02/17 12:30 93 17 175/81 96 Mechanical Ventilator 40 03/02/17 12:14 84 178/68 03/02/17 12:10 21 Intake and Output 03/03/17 03/04/17 19:00 07:00 Intake Total 375 ml Output Total 120 ml Balance 255 ml Free Water 100 ml IV Total 140 ml Tube Feeding 135 ml Output Urine Total 120 ml Laboratory Tests 03/03/17 04:30: White Blood Count 9.5, Red Blood Count 2.46L, Hemoglobin 8.3L, Hematocrit 25.0L , Mean Corpuscular Volume 102H, Mean Corpuscular Hemoglobin 33.7H, Mean Corpuscular Hemoglobin Concent 33.1, Red Cell Distribution Width 12.0, Platelet Count 224, Mean Platelet Volume 7.9, Neutrophils (%) (Auto) 62.0, Lymphocytes (% ) (Auto) 30.5, Monocytes (%) (Auto) 6.8, Eosinophils (%) (Auto) 0.4, Basophils ( %) (Auto) 0.3, Sodium Level 147H, Potassium Level 3.7, Chloride Level 111H, Carbon Dioxide Level 30, Anion Gap 6, Blood Urea Nitrogen 35H, Creatinine 0.7, Estimat Glomerular Filtration Rate , Glucose Level 119H, Calcium Level 9.1, Phosphorus Level 2.4L, Magnesium Level 2.0, Total Bilirubin 0.3, Aspartate Amino Transf (AST/SGOT) 11L, Alanine Aminotransferase (ALT/SGPT) 12, Alkaline Phosphatase 39L, Total Protein 5.8L, Albumin 2.1L, Globulin 3.7, Albumin/ Globulin Ratio 0.6L 03/03/17 09:10: Arterial Blood pH 7.452H, Arterial Blood Partial Pressure CO2 46.4H, Arterial Blood Partial Pressure O2 109.6H, Arterial Blood HCO3 31.7H, Arterial Blood Oxygen Saturation 97.8, Arterial Blood Base Excess 6.9, Scooby Test Positive Height (Feet): 5 Height (Inches): 7.00 Weight (Pounds): 114 General Appearance: no apparent distress Cardiovascular: normal rate Respiratory/Chest: decreased breath sounds Abdomen: soft Objective no edema GENARO DUARTE Mar 03, 2017 12:11
--- NOTE | 2017-03-03 12:18 | Diagnostic Imaging Report ---
Indication: DYSPNEA Technique: One view of the chest Comparison: 03/02/2017 Findings: Stable bilateral interstitial and alveolar opacities, probable small left pleural effusion, elevation left hemidiaphragm. Stable satisfactory positions of nasogastric and endotracheal tubes. Right hilar surgical clips, extensive right axillary surgical clips again demonstrated Impression: Unchanged, over one day, findings as above.
[2017-03-03] MEDS ORDERED: Potassium Phosphate 20 MM in NS 275 ML IV ONE (13:30)
--- NOTE | 2017-03-03 14:26 | Cardiology Progress Note ---
Assessment/Plan Assessment/Plan 1. Respiratory failure. 2. Chronic obstructive pulmonary disease exacerbation. 3. Questionable pneumonia. 4. History of mitral regurgitation of significant degree. 5. History of subdural hematomas and intracranial hemorrhage. 6. History of breast cancer. 7. Anemia. 8. History of Clostridium difficile colitis. 9. History of anxiety. 10. Sinus tachycardia secondary to above. 11. Htn 12. CHF acute diastolic 13. l m bronchus occlusion with debris 14. lung collapase 15 Hypotension resolved 16. alkalosis vent spport remains in icu intubated labs reviewed bp ok today d/w rn earlier for prn med tele sinus weaned for 3 hours onsedative Subjective ROS Limited/Unobtainable: Yes Subjective on vent Objective Last 24 Hour Vital Signs Date Time Temp Pulse Resp B/P (MAP) Pulse Ox O2 Delivery O2 Flow Rate FiO2 03/03/17 13:35 98.9 03/03/17 13:30 79 18 145/57 100 Mechanical Ventilator 40 03/03/17 13:00 82 18 138/55 100 Mechanical Ventilator 40 03/03/17 13:00 18 03/03/17 12:52 84 18 40 03/03/17 12:30 80 18 135/55 100 Mechanical Ventilator 40 03/03/17 12:00 16 03/03/17 12:00 78 18 144/53 100 Mechanical Ventilator 40 03/03/17 12:00 79 03/03/17 11:30 76 17 147/57 100 Mechanical Ventilator 40 03/03/17 11:00 76 16 142/53 100 Mechanical Ventilator 40 03/03/17 11:00 18 03/03/17 10:49 78 16 40 03/03/17 10:30 77 18 121/57 100 Mechanical Ventilator 40 03/03/17 10:29 18 03/03/17 10:15 40 03/03/17 10:00 83 34 142/57 98 Mechanical Ventilator 40 03/03/17 10:00 18 03/03/17 09:32 93 163/72 03/03/17 09:31 163/72 03/03/17 09:30 82 26 164/84 98 Mechanical Ventilator 40 03/03/17 09:00 84 26 163/72 98 Mechanical Ventilator 40 03/03/17 09:00 26 03/03/17 09:00 40 03/03/17 08:52 88 37 40 03/03/17 08:51 100 03/03/17 08:30 92 26 166/84 98 Mechanical Ventilator 40 03/03/17 08:00 90 03/03/17 08:00 16 03/03/17 08:00 98.8 93 24 157/75 98 Mechanical Ventilator 40 03/03/17 07:30 40 03/03/17 07:30 88 17 157/67 98 Mechanical Ventilator 40 03/03/17 07:04 79 21 Mechanical Ventilator 40 03/03/17 07:01 81 20 40 03/03/17 07:00 79 17 141/61 98 Mechanical Ventilator 40 03/03/17 07:00 16 03/03/17 06:30 80 17 130/64 98 Mechanical Ventilator 40 03/03/17 06:00 16 03/03/17 06:00 79 17 130/57 98 Mechanical Ventilator 40 03/03/17 05:30 80 17 126/56 98 Mechanical Ventilator 40 03/03/17 05:22 77 17 40 03/03/17 05:00 77 17 127/56 98 Mechanical Ventilator 40 03/03/17 05:00 17 03/03/17 04:30 77 17 122/62 98 Mechanical Ventilator 40 03/03/17 04:00 78 03/03/17 04:00 16 03/03/17 04:00 98.9 79 16 112/51 99 Mechanical Ventilator 40 03/03/17 03:30 77 17 118/100 98 Mechanical Ventilator 40 03/03/17 03:08 71 16 40 03/03/17 03:00 16 03/03/17 03:00 72 17 137/52 98 Mechanical Ventilator 40 03/03/17 02:30 73 17 130/51 98 Mechanical Ventilator 40 03/03/17 02:00 16 03/03/17 02:00 72 17 120/46 98 Mechanical Ventilator 40 03/03/17 01:30 76 17 121/48 98 Mechanical Ventilator 40 03/03/17 01:04 72 16 40 03/03/17 01:00 16 03/03/17 01:00 71 17 123/47 98 Mechanical Ventilator 40 03/03/17 00:30 70 17 131/49 98 Mechanical Ventilator 40 03/03/17 00:00 98.9 71 16 134/52 99 Mechanical Ventilator 40 03/03/17 00:00 16 03/03/17 00:00 40 10/24/17 00:00 75 03/02/17 23:57 16 03/02/17 23:30 73 17 127/52 98 Mechanical Ventilator 40 03/02/17 23:00 80 17 127/52 98 Mechanical Ventilator 40 03/02/17 23:00 16 03/02/17 22:54 80 16 40 03/02/17 22:30 72 17 134/52 98 Mechanical Ventilator 40 03/02/17 22:00 17 03/02/17 22:00 75 17 106/45 98 Mechanical Ventilator 40 03/02/17 21:30 75 17 106/45 98 Mechanical Ventilator 40 03/02/17 21:00 76 17 105/47 98 Mechanical Ventilator 40 03/02/17 21:00 16 03/02/17 20:58 76 111/45 03/02/17 20:44 76 16 40 03/02/17 20:30 76 16 104/46 99 Mechanical Ventilator 40 03/02/17 20:00 98.9 75 16 106/47 99 Mechanical Ventilator 40 03/02/17 20:00 81 03/02/17 20:00 17 03/02/17 20:00 40 03/02/17 19:30 78 17 103/44 98 Mechanical Ventilator 40 03/02/17 19:17 75 16 40 03/02/17 19:00 75 17 106/47 98 Mechanical Ventilator 40 03/02/17 19:00 16 03/02/17 18:30 74 17 104/47 98 Mechanical Ventilator 40 03/02/17 18:00 16 03/02/17 18:00 75 17 112/75 98 Mechanical Ventilator 40 03/02/17 17:43 16 03/02/17 17:30 76 17 108/45 98 Mechanical Ventilator 40 03/02/17 17:22 129/54 03/02/17 17:15 77 16 40 03/02/17 17:00 82 17 129/54 98 Mechanical Ventilator 40 03/02/17 17:00 16 03/02/17 16:30 79 17 99/48 98 Mechanical Ventilator 40 03/02/17 16:00 40 03/02/17 16:00 21 03/02/17 16:00 98.9 80 17 95/45 98 Mechanical Ventilator 40 03/02/17 15:30 81 17 97/46 98 Mechanical Ventilator 40 03/02/17 15:00 83 17 111/52 98 Mechanical Ventilator 40 03/02/17 15:00 16 03/02/17 14:40 90 16 40 03/02/17 14:30 89 17 130/64 98 Mechanical Ventilator 40 General Appearance: no apparent distress, on vent Neck: no JVD Cardiovascular: normal rate, regular rhythm Respiratory/Chest: lungs clear, normal breath sounds Abdomen: normal bowel sounds, non tender, soft Extremities: no swelling Intake and Output 03/03/17 03/04/17 19:00 07:00 Intake Total 626 ml Output Total 470 ml Balance 156 ml Free Water 200 ml IV Total 156 ml Tube Feeding 270 ml Output Urine Total 470 ml Laboratory Tests Test 03/03/17 04:30 03/03/17 09:10 White Blood Count 9.5 K/UL (4.8-10.8) Red Blood Count 2.46 M/UL (4.20-5.40) L Hemoglobin 8.3 G/DL (12.0-16.0) L Hematocrit 25.0 % (37.0-47.0) L Mean Corpuscular Volume 102 FL (80-99) H Mean Corpuscular Hemoglobin 33.7 PG (27.0-31.0) H Mean Corpuscular Hemoglobin Concent 33.1 G/DL (32.0-36.0) Red Cell Distribution Width 12.0 % (11.6-14.8) Platelet Count 224 K/UL (150-450) Mean Platelet Volume 7.9 FL (6.5-10.1) Neutrophils (%) (Auto) 62.0 % (45.0-75.0) Lymphocytes (%) (Auto) 30.5 % (20.0-45.0) Monocytes (%) (Auto) 6.8 % (1.0-10.0) Eosinophils (%) (Auto) 0.4 % (0.0-3.0) Basophils (%) (Auto) 0.3 % (0.0-2.0) Sodium Level 147 MMOL/L (136-145) H Potassium Level 3.7 MMOL/L (3.5-5.1) Chloride Level 111 MMOL/L (98-107) H Carbon Dioxide Level 30 MMOL/L (21-32) Anion Gap 6 mmol/L (5-15) Blood Urea Nitrogen 35 mg/dL (7-18) H Creatinine 0.7 MG/DL (0.55-1.30) Estimat Glomerular Filtration Rate mL/min (>60) Glucose Level 119 MG/DL (74-106) H Calcium Level 9.1 MG/DL (8.5-10.1) Phosphorus Level 2.4 MG/DL (2.5-4.9) L Magnesium Level 2.0 MG/DL (1.8-2.4) Total Bilirubin 0.3 MG/DL (0.2-1.0) Aspartate Amino Transf (AST/SGOT) 11 U/L (15-37) L Alanine Aminotransferase (ALT/SGPT) 12 U/L (12-78) Alkaline Phosphatase 39 U/L (46-116) L Total Protein 5.8 G/DL (6.4-8.2) L Albumin 2.1 G/DL (3.4-5.0) L Globulin 3.7 g/dL Albumin/Globulin Ratio 0.6 (1.0-2.7) L Arterial Blood pH 7.452 (7.350-7.450) Arterial Blood Partial Pressure CO2 46.4 mmHg (35.0-45.0) H Arterial Blood Partial Pressure O2 109.6 mmHg (75.0-100.0) H Arterial Blood HCO3 31.7 mmol/L (22.0-26.0) H Arterial Blood Oxygen Saturation 97.8 % (92.0-98.0) Arterial Blood Base Excess 6.9 Scooby Test Positive JEFFERSON ROMEO Mar 03, 2017 14:26
[2017-03-03] MEDS ORDERED: Tubing IV Secondary IV ONE (15:09)
[2017-03-03] MEDS ORDERED: NS 275ml ONE (15:09)
--- NOTE | 2017-03-03 18:14 | Internal Med Progress Note ---
Subjective Date of Service: Mar 03, 2017 Physician Name Zeb Fuentes Attending Physician Jun Cedillo MD Current Medications Medications (Trade) Dose Ordered Sig/Wilner Route PRN Reason Start Time Stop Time Status Last Admin Dose Admin Acetaminophen (Tylenol) 650 mg Q4H PRN ORAL FEVER 02/25/17 15:15 03/27/17 15:14 02/26/17 16:37 Allopurinol (Zyloprim) 100 mg DAILY ORAL 03/02/17 09:00 04/01/17 08:59 03/03/17 09:31 Amlodipine Besylate (Norvasc) 5 mg DAILYPRN PRN ORAL SBP >160 mmHg. 03/02/17 12:15 04/01/17 12:14 Aspirin (Ecotrin) 81 mg DAILY ORAL 02/26/17 09:00 03/19/17 08:59 03/03/17 09:32 Bisacodyl (Dulcolax) 10 mg DAILYPRN PRN RECTAL Constipation Third Line Agent 02/25/17 15:15 03/27/17 15:14 Carvedilol (Coreg) 6.25 mg Q12HR ORAL 02/25/17 21:00 03/25/17 20:59 03/03/17 09:32 Clonazepam (KlonoPIN) 1 mg DAILY ORAL 03/01/17 09:00 03/08/17 08:59 03/03/17 09:32 Dextrose (Dextrose 50%) STAT PRN IV Hypoglycemia 02/25/17 15:15 03/17/17 15:14 Escitalopram Oxalate (Lexapro) 10 mg DAILY ORAL 02/26/17 09:00 03/20/17 08:59 03/03/17 09:32 Haloperidol Lactate (Haldol) 2 mg Q4H PRN IM Agitation 02/25/17 15:15 03/27/17 15:14 02/25/17 22:38 Hydralazine HCl (Apresoline) 25 mg Q4H PRN ORAL SBP > 160mmHg 02/25/17 15:15 03/27/17 15:14 03/02/17 02:32 Lidocaine (Xylocaine 1% MPF 5ml) 10 ml Q4H PRN HHN cough 02/25/17 15:15 03/19/17 15:14 Lisinopril (Prinivil) 20 mg BID ORAL 02/25/17 18:00 03/27/17 17:59 03/03/17 17:49 Lorazepam (Ativan 2mg/ml 1ml) 2 mg Q4H PRN IV For Anxiety 02/26/17 11:00 03/05/17 10:59 02/28/17 17:22 Meropenem 1 gm/ Sodium Chloride 110 ml @ 220 mls/hr Q12HR IVPB 02/25/17 21:00 03/03/17 23:59 03/03/17 09:30 Metoclopramide HCl (Reglan) 10 mg Q8H IVP 02/28/17 12:32 03/30/17 12:31 03/03/17 12:35 Midazolam HCl 100 ml @ 0 mls/hr Q24H IVPB 03/01/17 04:00 03/08/17 03:59 03/03/17 10:29 Morphine Sulfate (Morphine Sulfate) 4 mg Q4H PRN IVP Breakthrough Pain 02/26/17 11:00 03/07/17 10:59 02/27/17 01:01 Ondansetron HCl (Zofran) 4 mg Q6H PRN IVP Nausea & Vomiting 02/25/17 15:15 03/17/17 15:14 Pantoprazole (Protonix) 40 mg DAILY IV 02/27/17 09:00 03/29/17 08:59 03/03/17 09:29 Polyethylene Glycol (Miralax) 17 gm DAILYPRN PRN ORAL Constipation First line agent 02/25/17 15:15 03/17/17 15:14 Potassium Phosphate 20 mm/ Sodium Chloride 281.6667 ml @ 46.944 m... ONCE ONCE IV 03/03/17 13:30 03/03/17 19:29 03/03/17 13:54 Pravastatin Sodium (Pravachol) 20 mg BEDTIME ORAL 02/25/17 21:00 03/18/17 20:59 03/02/17 20:57 Prednisone (predniSONE) 40 mg DAILY ORAL 02/26/17 09:00 03/28/17 08:59 03/03/17 09:32 Pregabalin (Lyrica) 150 mg THREE TIMES A DAY ORAL 02/25/17 18:00 03/18/17 12:59 03/03/17 17:49 Promethazine HCl/ Codeine (Phenergan with Codeine) 5 ml Q4H PRN ORAL UNRELIEVED COUGH 02/25/17 15:15 03/18/17 15:14 Ranitidine HCl (Zantac) 150 mg QPM ORAL 02/25/17 16:30 03/27/17 16:29 03/03/17 17:50 Allergies: Coded Allergies: TETRACYCLINE (Unverified Allergy, Unknown, 07/24/14) ROS Limited/Unobtainable: Yes Subjective 76 YO F admitted with shortness of breath. Now pneumonia. Cover for Int Med- Dr Cedillo. ICU. CT chest=occlusion left mainstem bronchus-Intubated 02/25/17. Failed weaning protocol Objective Last Vital Signs Date Time Temp Pulse Resp B/P (MAP) Pulse Ox O2 Delivery O2 Flow Rate FiO2 03/03/17 18:00 82 17 145/71 100 Mechanical Ventilator 40 03/03/17 16:00 98.8 02/26/17 06:45 15.0 Laboratory Tests Test 03/03/17 04:30 03/03/17 09:10 White Blood Count 9.5 K/UL (4.8-10.8) Red Blood Count 2.46 M/UL (4.20-5.40) L Hemoglobin 8.3 G/DL (12.0-16.0) L Hematocrit 25.0 % (37.0-47.0) L Mean Corpuscular Volume 102 FL (80-99) H Mean Corpuscular Hemoglobin 33.7 PG (27.0-31.0) H Mean Corpuscular Hemoglobin Concent 33.1 G/DL (32.0-36.0) Red Cell Distribution Width 12.0 % (11.6-14.8) Platelet Count 224 K/UL (150-450) Mean Platelet Volume 7.9 FL (6.5-10.1) Neutrophils (%) (Auto) 62.0 % (45.0-75.0) Lymphocytes (%) (Auto) 30.5 % (20.0-45.0) Monocytes (%) (Auto) 6.8 % (1.0-10.0) Eosinophils (%) (Auto) 0.4 % (0.0-3.0) Basophils (%) (Auto) 0.3 % (0.0-2.0) Sodium Level 147 MMOL/L (136-145) H Potassium Level 3.7 MMOL/L (3.5-5.1) Chloride Level 111 MMOL/L (98-107) H Carbon Dioxide Level 30 MMOL/L (21-32) Anion Gap 6 mmol/L (5-15) Blood Urea Nitrogen 35 mg/dL (7-18) H Creatinine 0.7 MG/DL (0.55-1.30) Estimat Glomerular Filtration Rate mL/min (>60) Glucose Level 119 MG/DL (74-106) H Calcium Level 9.1 MG/DL (8.5-10.1) Phosphorus Level 2.4 MG/DL (2.5-4.9) L Magnesium Level 2.0 MG/DL (1.8-2.4) Total Bilirubin 0.3 MG/DL (0.2-1.0) Aspartate Amino Transf (AST/SGOT) 11 U/L (15-37) L Alanine Aminotransferase (ALT/SGPT) 12 U/L (12-78) Alkaline Phosphatase 39 U/L (46-116) L Total Protein 5.8 G/DL (6.4-8.2) L Albumin 2.1 G/DL (3.4-5.0) L Globulin 3.7 g/dL Albumin/Globulin Ratio 0.6 (1.0-2.7) L Arterial Blood pH 7.452 (7.350-7.450) Arterial Blood Partial Pressure CO2 46.4 mmHg (35.0-45.0) H Arterial Blood Partial Pressure O2 109.6 mmHg (75.0-100.0) H Arterial Blood HCO3 31.7 mmol/L (22.0-26.0) H Arterial Blood Oxygen Saturation 97.8 % (92.0-98.0) Arterial Blood Base Excess 6.9 Scooby Test Positive Intake and Output 03/03/17 03/04/17 19:00 07:00 Intake Total 953 ml Output Total 870 ml Balance 83 ml Free Water 300 ml IV Total 158 ml Tube Feeding 495 ml Output Urine Total 870 ml # Bowel Movements 1 Objective General Appearance: WD/WN, no apparent distress, alert EENT: PERRL/EOMI, normal ENT inspection, TMs normal Neck: non-tender, normal alignment, supple, normal inspection Cardiovascular: normal peripheral pulses, normal rate, regular rhythm, no gallop/murmur, no JVD Respiratory/Chest: Mech Vent; chest wall non-tender, respiratory distress, decreased breath sounds, crackles/rales, rhonchi - bilaterally, expiratory wheezing Abdomen: normal bowel sounds, non tender, soft, no organomegaly, no mass Extremities: normal range of motion 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 (8) Pneumonia Assessment & Plan: Continue Meropenem and vanco. See ID and pulmonary notes. (9) COPD exacerbation Assessment & Plan: Continue IV solumedrol and xopenex/atrovent nebs. See pulmonary note. (10) Diastolic CHF Assessment & Plan: See cardiology note. 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 S/P intubation to aerate left lung-see pulmonary note. D/W pulmonary Dr Hernandez (14) Respiratory failure requiring intubation Assessment & Plan: Failed weaning; Weaning trial tomorrow-see pulm note Status: not improved ZEB FUENTES Mar 03, 2017 18:14
--- NOTE | 2017-03-03 19:06 | General Progress Note ---
Assessment/Plan Status: stable, progressing Assessment/Plan anxiety d/o' -cont current meds -provided ro/st Subjective Neurologic/Psychiatric: Reports: anxiety, depressed, emotional problems Allergies: Coded Allergies: TETRACYCLINE (Unverified Allergy, Unknown, 07/24/14) Subjective the pt os doing well much improved/ Objective Last 24 Hour Vital Signs Date Time Temp Pulse Resp B/P (MAP) Pulse Ox O2 Delivery O2 Flow Rate FiO2 03/03/17 18:00 82 17 145/71 100 Mechanical Ventilator 40 03/03/17 17:49 155/67 03/03/17 17:03 88 20 40 03/03/17 17:00 85 17 155/67 100 Mechanical Ventilator 40 03/03/17 16:30 89 17 127/65 100 Mechanical Ventilator 40 03/03/17 16:00 98.8 90 20 153/84 100 Mechanical Ventilator 40 03/03/17 16:00 40 03/03/17 16:00 82 03/03/17 16:00 18 03/03/17 15:30 84 17 152/68 100 Mechanical Ventilator 40 03/03/17 15:00 82 18 158/64 100 Mechanical Ventilator 40 03/03/17 15:00 18 03/03/17 14:56 83 16 40 03/03/17 14:30 81 18 145/57 100 Mechanical Ventilator 40 03/03/17 14:00 82 18 145/60 100 Mechanical Ventilator 40 03/03/17 14:00 18 03/03/17 13:35 98.9 03/03/17 13:30 79 18 145/57 100 Mechanical Ventilator 40 03/03/17 13:00 82 18 138/55 100 Mechanical Ventilator 40 03/03/17 13:00 18 03/03/17 12:52 84 18 40 03/03/17 12:30 80 18 135/55 100 Mechanical Ventilator 40 03/03/17 12:00 16 03/03/17 12:00 78 18 144/53 100 Mechanical Ventilator 40 03/03/17 12:00 98.8 03/03/17 12:00 79 03/03/17 11:30 76 17 147/57 100 Mechanical Ventilator 40 03/03/17 11:00 76 16 142/53 100 Mechanical Ventilator 40 03/03/17 11:00 18 03/03/17 10:49 78 16 40 03/03/17 10:30 77 18 121/57 100 Mechanical Ventilator 40 03/03/17 10:29 18 03/03/17 10:15 40 03/03/17 10:00 83 34 142/57 98 Mechanical Ventilator 40 03/03/17 10:00 18 03/03/17 09:32 93 163/72 03/03/17 09:31 163/72 03/03/17 09:30 82 26 164/84 98 Mechanical Ventilator 40 03/03/17 09:00 84 26 163/72 98 Mechanical Ventilator 40 03/03/17 09:00 26 03/03/17 09:00 40 03/03/17 08:52 88 37 40 03/03/17 08:51 100 03/03/17 08:30 92 26 166/84 98 Mechanical Ventilator 40 03/03/17 08:00 90 03/03/17 08:00 16 03/03/17 08:00 98.8 93 24 157/75 98 Mechanical Ventilator 40 03/03/17 07:30 40 03/03/17 07:30 88 17 157/67 98 Mechanical Ventilator 40 03/03/17 07:04 79 21 Mechanical Ventilator 40 03/03/17 07:01 81 20 40 03/03/17 07:00 79 17 141/61 98 Mechanical Ventilator 40 03/03/17 07:00 16 03/03/17 06:30 80 17 130/64 98 Mechanical Ventilator 40 03/03/17 06:00 16 03/03/17 06:00 79 17 130/57 98 Mechanical Ventilator 40 03/03/17 05:30 80 17 126/56 98 Mechanical Ventilator 40 03/03/17 05:22 77 17 40 03/03/17 05:00 77 17 127/56 98 Mechanical Ventilator 40 03/03/17 05:00 17 03/03/17 04:30 77 17 122/62 98 Mechanical Ventilator 40 03/03/17 04:00 78 03/03/17 04:00 16 03/03/17 04:00 98.9 79 16 112/51 99 Mechanical Ventilator 40 03/03/17 03:30 77 17 118/100 98 Mechanical Ventilator 40 03/03/17 03:08 71 16 40 03/03/17 03:00 16 03/03/17 03:00 72 17 137/52 98 Mechanical Ventilator 40 03/03/17 02:30 73 17 130/51 98 Mechanical Ventilator 40 03/03/17 02:00 16 03/03/17 02:00 72 17 120/46 98 Mechanical Ventilator 40 03/03/17 01:30 76 17 121/48 98 Mechanical Ventilator 40 03/03/17 01:04 72 16 40 03/03/17 01:00 16 03/03/17 01:00 71 17 123/47 98 Mechanical Ventilator 40 03/03/17 00:30 70 17 131/49 98 Mechanical Ventilator 40 03/03/17 00:00 98.9 71 16 134/52 99 Mechanical Ventilator 40 03/03/17 00:00 16 03/03/17 00:00 40 03/03/17 00:00 75 03/02/17 23:57 16 03/02/17 23:30 73 17 127/52 98 Mechanical Ventilator 40 03/02/17 23:00 80 17 127/52 98 Mechanical Ventilator 40 03/02/17 23:00 16 03/02/17 22:54 80 16 40 03/02/17 22:30 72 17 134/52 98 Mechanical Ventilator 40 03/02/17 22:00 17 03/02/17 22:00 75 17 106/45 98 Mechanical Ventilator 40 03/02/17 21:30 75 17 106/45 98 Mechanical Ventilator 40 03/02/17 21:00 76 17 105/47 98 Mechanical Ventilator 40 03/02/17 21:00 16 03/02/17 20:58 76 111/45 03/02/17 20:44 76 16 40 03/02/17 20:30 76 16 104/46 99 Mechanical Ventilator 40 03/02/17 20:00 98.9 75 16 106/47 99 Mechanical Ventilator 40 03/02/17 20:00 81 03/02/17 20:00 17 03/02/17 20:00 40 03/02/17 19:30 78 17 103/44 98 Mechanical Ventilator 40 03/02/17 19:17 75 16 40 Intake and Output 03/03/17 03/04/17 19:00 07:00 Intake Total 1191.720 ml Output Total 870 ml Balance 321.720 ml Free Water 300 ml IV Total 396.720 ml Tube Feeding 495 ml Output Urine Total 870 ml # Bowel Movements 1 Laboratory Tests 03/03/17 04:30: White Blood Count 9.5, Red Blood Count 2.46L, Hemoglobin 8.3L, Hematocrit 25.0L , Mean Corpuscular Volume 102H, Mean Corpuscular Hemoglobin 33.7H, Mean Corpuscular Hemoglobin Concent 33.1, Red Cell Distribution Width 12.0, Platelet Count 224, Mean Platelet Volume 7.9, Neutrophils (%) (Auto) 62.0, Lymphocytes (% ) (Auto) 30.5, Monocytes (%) (Auto) 6.8, Eosinophils (%) (Auto) 0.4, Basophils ( %) (Auto) 0.3, Sodium Level 147H, Potassium Level 3.7, Chloride Level 111H, Carbon Dioxide Level 30, Anion Gap 6, Blood Urea Nitrogen 35H, Creatinine 0.7, Estimat Glomerular Filtration Rate , Glucose Level 119H, Calcium Level 9.1, Phosphorus Level 2.4L, Magnesium Level 2.0, Total Bilirubin 0.3, Aspartate Amino Transf (AST/SGOT) 11L, Alanine Aminotransferase (ALT/SGPT) 12, Alkaline Phosphatase 39L, Total Protein 5.8L, Albumin 2.1L, Globulin 3.7, Albumin/ Globulin Ratio 0.6L 03/03/17 09:10: Arterial Blood pH 7.452H, Arterial Blood Partial Pressure CO2 46.4H, Arterial Blood Partial Pressure O2 109.6H, Arterial Blood HCO3 31.7H, Arterial Blood Oxygen Saturation 97.8, Arterial Blood Base Excess 6.9, Scooby Test Positive Height (Feet): 5 Height (Inches): 7.00 Weight (Pounds): 114 General Appearance: no apparent distress, alert, overweight Genitourinary/Rectal: normal genital exam Neurologic: alert, oriented x 3, responsive, normal mood/affect Wan Stern M.D. Mar 03, 2017 19:06
[2017-03-04] VITALS (24 sets, daily range): BP systolic 100–174; BP diastolic 25–92
[2017-03-04] MEDS: LORazepam Inj 2mg/ml 1ml IV PRN (01:18)
[2017-03-04 05:11] LABS: BASOPHILS % (AUTO) 0.2 % (0.0-2.0); HEMOGLOBIN 9.1 G/DL (12.0-16.0); LYMPHOCYTES % (AUTO) 24.6 % (20.0-45.0); MEAN CORPUSCULAR VOLUME 101 FL (80-99); NEUTROPHILS % (AUTO) 69.2 % (45.0-75.0); PLATELET COUNT 261 K/UL (150-450); RED BLOOD COUNT 2.77 M/UL (4.20-5.40); RED CELL DISTRIBUTION WIDTH 12.1 % (11.6-14.8); WHITE BLOOD COUNT 11.1 K/UL (4.8-10.8)
[2017-03-04] MEDS: Metoclopramide 10mg/2ml Inj IVP SCH ×3 (05:22→20:55)
[2017-03-04 06:09] LABS: ALANINE AMINOTRANSFERASE 16 U/L (12-78); ALBUMIN 2.6 G/DL (3.4-5.0); ALBUMIN/GLOBULIN RATIO 0.7 (1.0-2.7); ALKALINE PHOSPHATASE 48 U/L (46-116); ANION GAP 8 mmol/L (5-15); ASPARTATE AMINO TRANSFERASE 15 U/L (15-37); BILIRUBIN,TOTAL 0.4 MG/DL (0.2-1.0); BLOOD UREA NITROGEN 37 mg/dL (7-18); CALCIUM 9.5 MG/DL (8.5-10.1); CARBON DIOXIDE 29 MMOL/L (21-32); CHLORIDE 111 MMOL/L (98-107); CREATININE 0.8 MG/DL (0.55-1.30); POTASSIUM 3.9 MMOL/L (3.5-5.1); SODIUM 148 MMOL/L (136-145)
[2017-03-04] MEDS: Allopurinol 100mg Tab ORAL SCH (08:30)
[2017-03-04] MEDS: HydrALAZINE 25mg tab ORAL PRN (08:30)
[2017-03-04] MEDS: Carvedilol 6.25mg Tab ORAL SCH (08:30)
[2017-03-04] MEDS: Aspirin EC 81mg tab ORAL SCH (08:31)
[2017-03-04] MEDS: Pantoprazole Inj IV SCH (08:31)
[2017-03-04] MEDS: Lisinopril 20mg tab ORAL SCH ×2 (08:31→17:20)
[2017-03-04] MEDS: Lyrica 75mg cap ORAL SCH ×3 (08:32→17:19)
--- NOTE | 2017-03-04 08:57 | Diagnostic Imaging Report ---
APPROVED REPORT CPT Code: 38661 Present Symptoms Comments: Swelling BILATERAL UPPER EXTREMITY: Imaging reveals patency of the internal jugular, subclavian, axillary and brachial veins. The cephalic and basilic veins are also patent. Doppler indicates normal spontaneous flow within these venous segments, bilaterally.
--- NOTE | 2017-03-04 08:57 | Diagnostic Imaging Report ---
APPROVED REPORT CPT Code: 53195 Present Symptoms Comments: Swelling BILATERAL UPPER EXTREMITY: Imaging reveals patency of the internal jugular, subclavian, axillary and brachial veins. The cephalic and basilic veins are also patent. Doppler indicates normal spontaneous flow within these venous segments, bilaterally.
--- NOTE | 2017-03-04 08:57 | Diagnostic Imaging Report ---
APPROVED REPORT CPT Code: 17378 Present Symptoms Comments: Swelling BILATERAL UPPER EXTREMITY: Imaging reveals patency of the internal jugular, subclavian, axillary and brachial veins. The cephalic and basilic veins are also patent. Doppler indicates normal spontaneous flow within these venous segments, bilaterally.
--- NOTE | 2017-03-04 09:07 | General Progress Note ---
Assessment/Plan Status: stable Status Narrative BP OOC at times Assessment/Plan Status: Acute renal failure- etiology? 1900 cc urine out after insertion of shi--JOSE MIGUEL: Moderate right hydronephrosis. Acute on Chronic respiratory failure- day 2 intubation HTN High Cholestrol Pneumonia COPD , exac. Diastolic CHF, Mod MR h/o C dif colitis h/o Breast Ca Anemia Pulm HTN Moderate Plan: adjust BP meds weaning in process K and Phos supplement as needed pulm support adjust BP meds- Allopurinol continue Shi- Avoid nephrotoxics JOSE MIGUEL: Moderate right hydronephrosis. Subjective ROS Limited/Unobtainable: Yes Allergies: Coded Allergies: TETRACYCLINE (Unverified Allergy, Unknown, 07/24/14) Objective Last 24 Hour Vital Signs Date Time Temp Pulse Resp B/P (MAP) Pulse Ox O2 Delivery O2 Flow Rate FiO2 03/04/17 08:31 187/72 03/04/17 08:30 187/72 03/04/17 08:30 88 187/72 03/04/17 08:00 98.7 90 22 174/72 99 Mechanical Ventilator 35 03/04/17 08:00 78 03/04/17 07:28 81 17 35 03/04/17 07:00 90 18 173/71 100 Mechanical Ventilator 35 03/04/17 06:18 96 174/72 03/04/17 06:00 96 18 174/72 100 Mechanical Ventilator 35 03/04/17 05:00 87 18 105/25 100 Mechanical Ventilator 35 03/04/17 04:35 91 20 35 03/04/17 04:00 98.6 91 20 158/75 100 Mechanical Ventilator 35 03/04/17 04:00 92 03/04/17 04:00 35 03/04/17 03:29 84 19 35 03/04/17 03:00 82 18 156/64 100 Mechanical Ventilator 35 03/04/17 02:00 82 18 152/56 100 Mechanical Ventilator 35 03/04/17 01:27 82 17 35 03/04/17 01:00 83 18 148/68 100 Mechanical Ventilator 35 03/04/17 00:00 35 03/04/17 00:00 98.0 80 20 150/86 100 Mechanical Ventilator 35 03/04/17 00:00 85 03/03/17 23:19 89 18 35 03/03/17 23:00 90 18 134/54 100 Mechanical Ventilator 35 03/03/17 22:00 82 18 153/65 100 Mechanical Ventilator 35 03/03/17 21:25 83 17 35 03/03/17 21:00 85 18 160/83 100 Mechanical Ventilator 35 03/03/17 20:41 87 167/93 03/03/17 20:00 35 03/03/17 20:00 98.8 84 20 143/82 100 Mechanical Ventilator 35 03/03/17 20:00 86 03/03/17 19:25 87 19 35 03/03/17 19:00 81 18 167/93 100 Mechanical Ventilator 40 03/03/17 18:48 98.8 03/03/17 18:00 82 17 145/71 100 Mechanical Ventilator 40 03/03/17 17:49 155/67 03/03/17 17:03 88 20 40 03/03/17 17:00 85 17 155/67 100 Mechanical Ventilator 40 03/03/17 16:30 89 17 127/65 100 Mechanical Ventilator 40 03/03/17 16:00 98.8 90 20 153/84 100 Mechanical Ventilator 40 03/03/17 16:00 40 03/03/17 16:00 82 03/03/17 16:00 18 03/03/17 15:30 84 17 152/68 100 Mechanical Ventilator 40 03/03/17 15:00 82 18 158/64 100 Mechanical Ventilator 40 03/03/17 15:00 18 03/03/17 14:56 83 16 40 03/03/17 14:30 81 18 145/57 100 Mechanical Ventilator 40 03/03/17 14:00 82 18 145/60 100 Mechanical Ventilator 40 03/03/17 14:00 18 03/03/17 13:30 79 18 145/57 100 Mechanical Ventilator 40 03/03/17 13:00 82 18 138/55 100 Mechanical Ventilator 40 03/03/17 13:00 18 03/03/17 12:52 84 18 40 03/03/17 12:30 80 18 135/55 100 Mechanical Ventilator 40 03/03/17 12:00 16 03/03/17 12:00 78 18 144/53 100 Mechanical Ventilator 40 03/03/17 12:00 98.8 03/03/17 12:00 79 03/03/17 11:30 76 17 147/57 100 Mechanical Ventilator 40 03/03/17 11:00 76 16 142/53 100 Mechanical Ventilator 40 03/03/17 11:00 18 03/03/17 10:49 78 16 40 03/03/17 10:30 77 18 121/57 100 Mechanical Ventilator 40 03/03/17 10:29 18 03/03/17 10:15 40 03/03/17 10:00 83 34 142/57 98 Mechanical Ventilator 40 03/03/17 10:00 18 03/03/17 09:32 93 163/72 03/03/17 09:31 163/72 03/03/17 09:30 82 26 164/84 98 Mechanical Ventilator 40 Intake and Output 03/04/17 03/05/17 19:00 07:00 Intake Total 75 ml Output Total 60 ml Balance 15 ml Free Water 30 ml Tube Feeding 45 ml Output Urine Total 60 ml Laboratory Tests 03/03/17 09:10: Arterial Blood pH 7.452H, Arterial Blood Partial Pressure CO2 46.4H, Arterial Blood Partial Pressure O2 109.6H, Arterial Blood HCO3 31.7H, Arterial Blood Oxygen Saturation 97.8, Arterial Blood Base Excess 6.9, Scooby Test Positive 03/04/17 05:00: White Blood Count 11.1H, Red Blood Count 2.77L, Hemoglobin 9.1L, Hematocrit 28.0L, Mean Corpuscular Volume 101H, Mean Corpuscular Hemoglobin 33.0H, Mean Corpuscular Hemoglobin Concent 32.6, Red Cell Distribution Width 12.1, Platelet Count 261, Mean Platelet Volume 8.1, Neutrophils (%) (Auto) 69.2, Lymphocytes (% ) (Auto) 24.6, Monocytes (%) (Auto) 6.0, Eosinophils (%) (Auto) 0.0, Basophils ( %) (Auto) 0.2, Sodium Level 148H, Potassium Level 3.9, Chloride Level 111H, Carbon Dioxide Level 29, Anion Gap 8, Blood Urea Nitrogen 37H, Creatinine 0.8, Estimat Glomerular Filtration Rate , Glucose Level 126H, Calcium Level 9.5, Total Bilirubin 0.4, Aspartate Amino Transf (AST/SGOT) 15, Alanine Aminotransferase (ALT/SGPT) 16, Alkaline Phosphatase 48, Pro-B-Type Natriuretic Peptide 3671H, Total Protein 6.5, Albumin 2.6L, Globulin 3.9, Albumin/Globulin Ratio 0.7L Height (Feet): 5 Height (Inches): 7.00 Weight (Pounds): 115 EENT: other - on vent Cardiovascular: normal rate Respiratory/Chest: decreased breath sounds Abdomen: soft Objective no edema GENARO DUARTE Mar 04, 2017 09:07
--- NOTE | 2017-03-04 09:52 | Infectious Diseases Prog Note ---
Assessment/Plan Assessment/Plan Abx: IV Vanco 02/15-03/01 Cefepime 02/15-02/18 Meropenem 02/18- Assesment: Acute hypoxic resp failure, - combination of COPD exacerbation and PNA; worsened 02/18; Intubated 02/26 -venous duplex 02/16 no DVT PNA; worsening- r/o MDRO, r/o fungal pneumonia. SGS(-), Cx Neg - SP bronch 02/26 (collected 02/26, however received on the lab 03/03??): BAL cx NTD -CXR 03/03: Stable bilateral interstitial and alveolar opacities, probable small left pleural effusion, elevation left hemidiaphragm -CXR 03/01: Patchy, mainly interstitial appearing disease noted bilaterally. Findings may be due to infiltrates or CHF - CT Chest 02/24: Near-complete occlusion of the left mainstem bronchus and proximal lobar bronchi, probably by debris. Extensive resultant atelectasis and consolidation of nearly the entire left lung. Less extensive consolidation within the right lung, nonspecific as regards etiology, likely secondary to pneumonia or edema -CXR 02/23: Better inspiration currently. Overall improved aeration of the right mid and lower lung, with decreased dense consolidation and is still fairly extensive parenchymal opacity. The right pleural space is clear. Large left pleural effusion is again demonstrated, and is increased from the prior exam. There is also increasing consolidation of the residual aerated lung in the left upper hemithorax. -CXR: Limited evaluation due to significant degree of soft tissue attenuation. Suspect pneumonia at the right lung base. -Cr Ag serum neg; cocci ab pending L pleural effusion - improved Leukocytosis, mild - recurrent, mild (on steroids) Fever x1 COPD on home O2 Hx of Cdiff DM2 Chronic abd pain hx of MRSA bacteremia 07/2015 TCA allergy Full Code fibromyalgia, HTN, HLD, R breast cancer,Tobacco abuse (stopped 4 years ago), Anxiety, AOCD Plan: -Continue to monitor off abx, unless febrile, HD unstable -s/p 14d IV Meropenem 03/03 -s/p 14 d IV Vancomycin 03/01 -s/p 6d prophylatic PO vanco 02/21 -s/p 4 d Cefepime 02/18 -f/u Cocci ab , BAL cx -Monitor CBC/BMP, temperatures -Aspiration precautions - vent support, wean as tolerated Discussed with RN. Subjective Allergies: Coded Allergies: TETRACYCLINE (Unverified Allergy, Unknown, 07/24/14) Subjective afebrile now off abx Mild leukocytosis today BAL cx NTD Objective Vital Signs Last 24 Hour Vital Signs Date Time Temp Pulse Resp B/P (MAP) Pulse Ox O2 Delivery O2 Flow Rate FiO2 03/04/17 09:31 98.7 03/04/17 09:13 75 12 35 03/04/17 09:12 99 03/04/17 09:00 76 13 142/68 99 Mechanical Ventilator 35 03/04/17 08:31 187/72 03/04/17 08:30 187/72 03/04/17 08:30 88 187/72 03/04/17 08:00 98.7 90 22 174/72 99 Mechanical Ventilator 35 03/04/17 08:00 78 03/04/17 07:28 81 17 35 03/04/17 07:00 90 18 173/71 100 Mechanical Ventilator 35 03/04/17 06:18 96 174/72 03/04/17 06:00 96 18 174/72 100 Mechanical Ventilator 35 03/04/17 05:00 87 18 105/25 100 Mechanical Ventilator 35 03/04/17 04:35 91 20 35 03/04/17 04:00 98.6 91 20 158/75 100 Mechanical Ventilator 35 03/04/17 04:00 92 03/04/17 04:00 35 03/04/17 03:29 84 19 35 03/04/17 03:00 82 18 156/64 100 Mechanical Ventilator 35 03/04/17 02:00 82 18 152/56 100 Mechanical Ventilator 35 03/04/17 01:27 82 17 35 03/04/17 01:00 83 18 148/68 100 Mechanical Ventilator 35 03/04/17 00:00 35 03/04/17 00:00 98.0 80 20 150/86 100 Mechanical Ventilator 35 03/04/17 00:00 85 03/03/17 23:19 89 18 35 03/03/17 23:00 90 18 134/54 100 Mechanical Ventilator 35 03/03/17 22:00 82 18 153/65 100 Mechanical Ventilator 35 03/03/17 21:25 83 17 35 03/03/17 21:00 85 18 160/83 100 Mechanical Ventilator 35 03/03/17 20:41 87 167/93 03/03/17 20:00 35 03/03/17 20:00 98.8 84 20 143/82 100 Mechanical Ventilator 35 03/03/17 20:00 86 03/03/17 19:25 87 19 35 03/03/17 19:00 81 18 167/93 100 Mechanical Ventilator 40 03/03/17 18:00 82 17 145/71 100 Mechanical Ventilator 40 03/03/17 17:49 155/67 03/03/17 17:03 88 20 40 03/03/17 17:00 85 17 155/67 100 Mechanical Ventilator 40 03/03/17 16:30 89 17 127/65 100 Mechanical Ventilator 40 03/03/17 16:00 98.8 90 20 153/84 100 Mechanical Ventilator 40 03/03/17 16:00 40 03/03/17 16:00 82 03/03/17 16:00 18 03/03/17 15:30 84 17 152/68 100 Mechanical Ventilator 40 03/03/17 15:00 82 18 158/64 100 Mechanical Ventilator 40 03/03/17 15:00 18 03/03/17 14:56 83 16 40 03/03/17 14:30 81 18 145/57 100 Mechanical Ventilator 40 03/03/17 14:00 82 18 145/60 100 Mechanical Ventilator 40 03/03/17 14:00 18 03/03/17 13:30 79 18 145/57 100 Mechanical Ventilator 40 03/03/17 13:00 82 18 138/55 100 Mechanical Ventilator 40 03/03/17 13:00 18 03/03/17 12:52 84 18 40 03/03/17 12:30 80 18 135/55 100 Mechanical Ventilator 40 03/03/17 12:00 16 03/03/17 12:00 78 18 144/53 100 Mechanical Ventilator 40 03/03/17 12:00 98.8 03/03/17 12:00 79 03/03/17 11:30 76 17 147/57 100 Mechanical Ventilator 40 03/03/17 11:00 76 16 142/53 100 Mechanical Ventilator 40 03/03/17 11:00 18 03/03/17 10:49 78 16 40 03/03/17 10:30 77 18 121/57 100 Mechanical Ventilator 40 03/03/17 10:29 18 03/03/17 10:15 40 03/03/17 10:00 83 34 142/57 98 Mechanical Ventilator 40 03/03/17 10:00 18 Height (Feet): 5 Height (Inches): 7.00 Weight (Pounds): 115 Objective General Appearance: lethargic but arousable HEENT: PERRL, ETT in place, atraumatic head Neck: supple Respiratory: scattered wheezing Cardiovascular: regular rate, rhythmm, no murmurs Gastrointestinal: normal inspection, non tender, no mass, non-distended Musculoskeletal: L>R arm swelling and erythema Skin: no lesions or rashes reviewed Laboratory Tests Test 03/04/17 05:00 White Blood Count 11.1 K/UL (4.8-10.8) H Red Blood Count 2.77 M/UL (4.20-5.40) L Hemoglobin 9.1 G/DL (12.0-16.0) L Hematocrit 28.0 % (37.0-47.0) L Mean Corpuscular Volume 101 FL (80-99) H Mean Corpuscular Hemoglobin 33.0 PG (27.0-31.0) H Mean Corpuscular Hemoglobin Concent 32.6 G/DL (32.0-36.0) Red Cell Distribution Width 12.1 % (11.6-14.8) Platelet Count 261 K/UL (150-450) Mean Platelet Volume 8.1 FL (6.5-10.1) Neutrophils (%) (Auto) 69.2 % (45.0-75.0) Lymphocytes (%) (Auto) 24.6 % (20.0-45.0) Monocytes (%) (Auto) 6.0 % (1.0-10.0) Eosinophils (%) (Auto) 0.0 % (0.0-3.0) Basophils (%) (Auto) 0.2 % (0.0-2.0) Sodium Level 148 MMOL/L (136-145) H Potassium Level 3.9 MMOL/L (3.5-5.1) Chloride Level 111 MMOL/L (98-107) H Carbon Dioxide Level 29 MMOL/L (21-32) Anion Gap 8 mmol/L (5-15) Blood Urea Nitrogen 37 mg/dL (7-18) H Creatinine 0.8 MG/DL (0.55-1.30) Estimat Glomerular Filtration Rate mL/min (>60) Glucose Level 126 MG/DL (74-106) H Calcium Level 9.5 MG/DL (8.5-10.1) Total Bilirubin 0.4 MG/DL (0.2-1.0) Aspartate Amino Transf (AST/SGOT) 15 U/L (15-37) Alanine Aminotransferase (ALT/SGPT) 16 U/L (12-78) Alkaline Phosphatase 48 U/L (46-116) Pro-B-Type Natriuretic Peptide 3671 pg/mL (0-125) H Total Protein 6.5 G/DL (6.4-8.2) Albumin 2.6 G/DL (3.4-5.0) L Globulin 3.9 g/dL Albumin/Globulin Ratio 0.7 (1.0-2.7) L Current Medications Medications (Trade) Dose Ordered Sig/Wilner Route PRN Reason Start Time Stop Time Status Last Admin Dose Admin Acetaminophen (Tylenol) 650 mg Q4H PRN ORAL FEVER 02/25/17 15:15 03/27/17 15:14 02/26/17 16:37 Allopurinol (Zyloprim) 100 mg DAILY ORAL 03/02/17 09:00 04/01/17 08:59 03/04/17 08:30 Amlodipine Besylate (Norvasc) 10 mg DAILY ORAL 03/04/17 12:00 04/03/17 11:59 Aspirin (Ecotrin) 81 mg DAILY ORAL 02/26/17 09:00 03/19/17 08:59 03/04/17 08:31 Bisacodyl (Dulcolax) 10 mg DAILYPRN PRN RECTAL Constipation Third Line Agent 02/25/17 15:15 03/27/17 15:14 Carvedilol (Coreg) 12.5 mg Q12HR ORAL 03/04/17 21:00 04/03/17 20:59 Clonazepam (KlonoPIN) 1 mg DAILY ORAL 03/01/17 09:00 03/08/17 08:59 03/04/17 08:31 Dextrose (Dextrose 50%) STAT PRN IV Hypoglycemia 02/25/17 15:15 03/17/17 15:14 Escitalopram Oxalate (Lexapro) 10 mg DAILY ORAL 02/26/17 09:00 03/20/17 08:59 03/04/17 08:31 Haloperidol Lactate (Haldol) 2 mg Q4H PRN IM Agitation 02/25/17 15:15 03/27/17 15:14 02/25/17 22:38 Hydralazine HCl (Apresoline) 25 mg Q4H PRN ORAL SBP > 160mmHg 02/25/17 15:15 03/27/17 15:14 03/04/17 08:30 Lidocaine (Xylocaine 1% MPF 5ml) 10 ml Q4H PRN HHN cough 02/25/17 15:15 03/19/17 15:14 Lisinopril (Prinivil) 20 mg BID ORAL 02/25/17 18:00 03/27/17 17:59 03/04/17 08:31 Lorazepam (Ativan 2mg/ml 1ml) 2 mg Q4H PRN IV For Anxiety 02/26/17 11:00 03/05/17 10:59 03/04/17 01:18 Metoclopramide HCl (Reglan) 10 mg Q8H IVP 02/28/17 12:32 03/30/17 12:31 03/04/17 05:22 Midazolam HCl 100 ml @ 0 mls/hr Q24H IVPB 03/01/17 04:00 03/08/17 03:59 03/03/17 10:29 Morphine Sulfate (Morphine Sulfate) 4 mg Q4H PRN IVP Breakthrough Pain 02/26/17 11:00 03/07/17 10:59 02/27/17 01:01 Ondansetron HCl (Zofran) 4 mg Q6H PRN IVP Nausea & Vomiting 02/25/17 15:15 03/17/17 15:14 Pantoprazole (Protonix) 40 mg DAILY IV 02/27/17 09:00 03/29/17 08:59 03/04/17 08:31 Polyethylene Glycol (Miralax) 17 gm DAILYPRN PRN ORAL Constipation First line agent 02/25/17 15:15 03/17/17 15:14 Pravastatin Sodium (Pravachol) 20 mg BEDTIME ORAL 02/25/17 21:00 03/18/17 20:59 03/03/17 20:41 Prednisone (predniSONE) 40 mg DAILY ORAL 02/26/17 09:00 03/28/17 08:59 03/04/17 08:31 Pregabalin (Lyrica) 150 mg THREE TIMES A DAY ORAL 02/25/17 18:00 03/18/17 12:59 03/04/17 08:32 Promethazine HCl/ Codeine (Phenergan with Codeine) 5 ml Q4H PRN ORAL UNRELIEVED COUGH 02/25/17 15:15 03/18/17 15:14 Ranitidine HCl (Zantac) 150 mg QPM ORAL 02/25/17 16:30 03/27/17 16:29 03/03/17 17:50 Alyse Traylor M.D. Mar 04, 2017 09:52
--- NOTE | 2017-03-04 11:05 | Wound Nurse Progress Note ---
Wound RN Progress Note Wound Consult #1 Sacrococcygeal stage I pressure ulcer that extended to left and right buttocks- no further deterioration , skin remains intact, noted redness still present. #2 Perineal area chemical burn- noted good progress, resolving, skin intact #3 Wart on supra pubic area - no change upon reassessment noted good progress. continue current treatment plan as previously recommended Recommendation -Sacrococcygeal stage I pressure ulcer that extended to left and right buttocks and Perineal area chemical burn Cleanse with saline, pat dry, apply Triad cream, leave area open to air BID and PRN soiled/dislodged -Keep clean and dry -Turn and reposition -Offload both heels -Heel protector on both heels -Low air loss SPR mattress -Optimize nutrition -Assess and f/u accordingly for any changes upon skin reassessment noted good progress to skin, remains intact, current treatment is effective. OLIVERIO COATES Mar 04, 2017 11:05
--- NOTE | 2017-03-04 11:10 | Pulmonolgy Critical Care Note ---
Critical Care - Asmt/Plan Problems: (1) Acute and chronic respiratory failure ([id number]) (2) COPD (chronic obstructive pulmonary disease) (3) Right middle lobe pneumonia (4) Collapse of left lung Respiratory: monitor respiratory rate, adjust FIO2, CXR Cardiac: continue to monitor HR/BP Renal: F/U I&O, check electrolytes Infectious Disease: check cultures Gastrointestinal: continue feedings/current rate Endocrine: monitor blood sugar, continue sliding scale insulin Hematologic: transfuse if hgb<8.5 Neurologic: PRN Ativan, PRN Morphine, keep patient comfortable Affect: PRN ativan Prophylaxis: Protonix, Heparin Disposition: keep in ICU Time Spent (Minutes): 40 Notes Reviewed: breading machine tender, cardio, renal, ID Critical Care - Objective Last 24 Hour Vital Signs Date Time Temp Pulse Resp B/P (MAP) Pulse Ox O2 Delivery O2 Flow Rate FiO2 03/04/17 11:03 97 18 128/60 99 Mechanical Ventilator 40 03/04/17 11:02 91 18 35 03/04/17 10:00 91 22 156/66 99 Mechanical Ventilator 40 03/04/17 09:31 98.7 03/04/17 09:13 75 12 35 03/04/17 09:12 99 03/04/17 09:00 76 13 142/68 99 Mechanical Ventilator 40 03/04/17 08:31 187/72 03/04/17 08:30 187/72 03/04/17 08:30 88 187/72 03/04/17 08:00 98.7 90 22 174/72 99 Mechanical Ventilator 40 03/04/17 08:00 78 03/04/17 07:28 81 17 35 03/04/17 07:00 90 18 173/71 100 Mechanical Ventilator 35 03/04/17 06:18 96 174/72 03/04/17 06:00 96 18 174/72 100 Mechanical Ventilator 35 03/04/17 05:00 87 18 105/25 100 Mechanical Ventilator 35 03/04/17 04:35 91 20 35 03/04/17 04:00 98.6 91 20 158/75 100 Mechanical Ventilator 35 03/04/17 04:00 92 03/04/17 04:00 35 03/04/17 03:29 84 19 35 03/04/17 03:00 82 18 156/64 100 Mechanical Ventilator 35 03/04/17 02:00 82 18 152/56 100 Mechanical Ventilator 35 03/04/17 01:27 82 17 35 03/04/17 01:00 83 18 148/68 100 Mechanical Ventilator 35 03/04/17 00:00 35 03/04/17 00:00 98.0 80 20 150/86 100 Mechanical Ventilator 35 03/04/17 00:00 85 03/03/17 23:19 89 18 35 03/03/17 23:00 90 18 134/54 100 Mechanical Ventilator 35 03/03/17 22:00 82 18 153/65 100 Mechanical Ventilator 35 03/03/17 21:25 83 17 35 03/03/17 21:00 85 18 160/83 100 Mechanical Ventilator 35 03/03/17 20:41 87 167/93 03/03/17 20:00 35 03/03/17 20:00 98.8 84 20 143/82 100 Mechanical Ventilator 35 03/03/17 20:00 86 03/03/17 19:25 87 19 35 03/03/17 19:00 81 18 167/93 100 Mechanical Ventilator 40 03/03/17 18:00 82 17 145/71 100 Mechanical Ventilator 40 03/03/17 17:49 155/67 03/03/17 17:03 88 20 40 03/03/17 17:00 85 17 155/67 100 Mechanical Ventilator 40 03/03/17 16:30 89 17 127/65 100 Mechanical Ventilator 40 03/03/17 16:00 98.8 90 20 153/84 100 Mechanical Ventilator 40 03/03/17 16:00 40 03/03/17 16:00 82 03/03/17 16:00 18 03/03/17 15:30 84 17 152/68 100 Mechanical Ventilator 40 03/03/17 15:00 82 18 158/64 100 Mechanical Ventilator 40 03/03/17 15:00 18 03/03/17 14:56 83 16 40 03/03/17 14:30 81 18 145/57 100 Mechanical Ventilator 40 03/03/17 14:00 82 18 145/60 100 Mechanical Ventilator 40 03/03/17 14:00 18 03/03/17 13:30 79 18 145/57 100 Mechanical Ventilator 40 03/03/17 13:00 82 18 138/55 100 Mechanical Ventilator 40 03/03/17 13:00 18 03/03/17 12:52 84 18 40 03/03/17 12:30 80 18 135/55 100 Mechanical Ventilator 40 03/03/17 12:00 16 03/03/17 12:00 78 18 144/53 100 Mechanical Ventilator 40 03/03/17 12:00 98.8 03/03/17 12:00 79 03/03/17 11:30 76 17 147/57 100 Mechanical Ventilator 40 Status: awake Condition: critical HEENT: atraumatic Lungs: chest wall tender Heart: HR/BP stable, regular Abdomen: soft, non-tender, active bowel sounds Extremities: no C/C/E, edema Accucheck: 124 Critical Care - Subjective ROS Limited/Unobtainable: Yes ICU Day: 8 Intubation Day: 8 Interval Events: awake, weaning Condition: critical EKG Rhythm: Sinus Rhythm FI02: 40 Vent Support Breath Rate: 12 Vent Support Mode: IMV/SIMV Vent Tidal Volume: 500 Sputum Amount: Small PIP: 20 Tube Feeding Amount: 45 I&O: Intake and Output 03/04/17 03/05/17 19:00 07:00 Intake Total 355 ml Output Total 385 ml Balance -30 ml Free Water 30 ml Tube Feeding 225 ml Other 100 ml Output Urine Total 385 ml # Bowel Movements 1 CXR: better, ET tube in correct position ET-Tube: 8.0 ET Position: 21 Labs: Laboratory Tests Test 03/04/17 05:00 White Blood Count 11.1 K/UL (4.8-10.8) H Red Blood Count 2.77 M/UL (4.20-5.40) L Hemoglobin 9.1 G/DL (12.0-16.0) L Hematocrit 28.0 % (37.0-47.0) L Mean Corpuscular Volume 101 FL (80-99) H Mean Corpuscular Hemoglobin 33.0 PG (27.0-31.0) H Mean Corpuscular Hemoglobin Concent 32.6 G/DL (32.0-36.0) Red Cell Distribution Width 12.1 % (11.6-14.8) Platelet Count 261 K/UL (150-450) Mean Platelet Volume 8.1 FL (6.5-10.1) Neutrophils (%) (Auto) 69.2 % (45.0-75.0) Lymphocytes (%) (Auto) 24.6 % (20.0-45.0) Monocytes (%) (Auto) 6.0 % (1.0-10.0) Eosinophils (%) (Auto) 0.0 % (0.0-3.0) Basophils (%) (Auto) 0.2 % (0.0-2.0) Sodium Level 148 MMOL/L (136-145) H Potassium Level 3.9 MMOL/L (3.5-5.1) Chloride Level 111 MMOL/L (98-107) H Carbon Dioxide Level 29 MMOL/L (21-32) Anion Gap 8 mmol/L (5-15) Blood Urea Nitrogen 37 mg/dL (7-18) H Creatinine 0.8 MG/DL (0.55-1.30) Estimat Glomerular Filtration Rate mL/min (>60) Glucose Level 126 MG/DL (74-106) H Calcium Level 9.5 MG/DL (8.5-10.1) Total Bilirubin 0.4 MG/DL (0.2-1.0) Aspartate Amino Transf (AST/SGOT) 15 U/L (15-37) Alanine Aminotransferase (ALT/SGPT) 16 U/L (12-78) Alkaline Phosphatase 48 U/L (46-116) Pro-B-Type Natriuretic Peptide 3671 pg/mL (0-125) H Total Protein 6.5 G/DL (6.4-8.2) Albumin 2.6 G/DL (3.4-5.0) L Globulin 3.9 g/dL Albumin/Globulin Ratio 0.7 (1.0-2.7) L TWIN FONTANEZ Mar 04, 2017 11:10
--- NOTE | 2017-03-04 11:17 | Diagnostic Imaging Report ---
Indication: DYSPNEA Technique: One view of the chest Comparison: 03/03/2017 Findings: Stable satisfactory position of endotracheal and nasogastric tube. There appears to be increasing pleural fluid and consolidation at the left lung base. Hazy opacity and interstitial prominence in the right lung persists, unchanged Impression: Increasing left basilar pleural fluid and consolidation, over one day Other stable findings as described
--- NOTE | 2017-03-04 13:33 | Internal Med Progress Note ---
Subjective Date of Service: Mar 04, 2017 Physician Name Zeb Fuentes Attending Physician Jun Cedillo MD Current Medications Medications (Trade) Dose Ordered Sig/Wilner Route PRN Reason Start Time Stop Time Status Last Admin Dose Admin Acetaminophen (Tylenol) 650 mg Q4H PRN ORAL FEVER 02/25/17 15:15 03/27/17 15:14 02/26/17 16:37 Allopurinol (Zyloprim) 100 mg DAILY ORAL 03/02/17 09:00 04/01/17 08:59 03/04/17 08:30 Amlodipine Besylate (Norvasc) 10 mg DAILY ORAL 03/04/17 12:00 04/03/17 11:59 03/04/17 12:16 Aspirin (Ecotrin) 81 mg DAILY ORAL 02/26/17 09:00 03/19/17 08:59 03/04/17 08:31 Bisacodyl (Dulcolax) 10 mg DAILYPRN PRN RECTAL Constipation Third Line Agent 02/25/17 15:15 03/27/17 15:14 Carvedilol (Coreg) 12.5 mg Q12HR ORAL 03/04/17 21:00 04/03/17 20:59 Clonazepam (KlonoPIN) 1 mg DAILY ORAL 03/01/17 09:00 03/08/17 08:59 03/04/17 08:31 Dextrose (Dextrose 50%) STAT PRN IV Hypoglycemia 02/25/17 15:15 03/17/17 15:14 Escitalopram Oxalate (Lexapro) 10 mg DAILY ORAL 02/26/17 09:00 03/20/17 08:59 03/04/17 08:31 Haloperidol Lactate (Haldol) 2 mg Q4H PRN IM Agitation 02/25/17 15:15 03/27/17 15:14 02/25/17 22:38 Hydralazine HCl (Apresoline) 25 mg Q4H PRN ORAL SBP > 160mmHg 02/25/17 15:15 03/27/17 15:14 03/04/17 08:30 Lidocaine (Xylocaine 1% MPF 5ml) 10 ml Q4H PRN HHN cough 02/25/17 15:15 03/19/17 15:14 Lisinopril (Prinivil) 20 mg BID ORAL 02/25/17 18:00 03/27/17 17:59 03/04/17 08:31 Lorazepam (Ativan 2mg/ml 1ml) 2 mg Q4H PRN IV For Anxiety 02/26/17 11:00 03/05/17 10:59 03/04/17 01:18 Metoclopramide HCl (Reglan) 5 mg Q8HR IVP 03/04/17 22:00 04/03/17 21:59 Midazolam HCl 100 ml @ 0 mls/hr Q24H IVPB 03/01/17 04:00 03/08/17 03:59 03/03/17 10:29 Morphine Sulfate (Morphine Sulfate) 4 mg Q4H PRN IVP Breakthrough Pain 02/26/17 11:00 03/07/17 10:59 02/27/17 01:01 Ondansetron HCl (Zofran) 4 mg Q6H PRN IVP Nausea & Vomiting 02/25/17 15:15 03/17/17 15:14 Pantoprazole (Protonix) 40 mg DAILY IV 02/27/17 09:00 03/29/17 08:59 03/04/17 08:31 Polyethylene Glycol (Miralax) 17 gm DAILYPRN PRN ORAL Constipation First line agent 02/25/17 15:15 03/17/17 15:14 Pravastatin Sodium (Pravachol) 20 mg BEDTIME ORAL 02/25/17 21:00 03/18/17 20:59 03/03/17 20:41 Prednisone (predniSONE) 40 mg DAILY ORAL 02/26/17 09:00 03/28/17 08:59 03/04/17 08:31 Pregabalin (Lyrica) 150 mg THREE TIMES A DAY ORAL 02/25/17 18:00 03/18/17 12:59 03/04/17 12:16 Promethazine HCl/ Codeine (Phenergan with Codeine) 5 ml Q4H PRN ORAL UNRELIEVED COUGH 02/25/17 15:15 03/18/17 15:14 Ranitidine HCl (Zantac) 150 mg QPM ORAL 02/25/17 16:30 03/27/17 16:29 03/03/17 17:50 Allergies: Coded Allergies: TETRACYCLINE (Unverified Allergy, Unknown, 07/24/14) ROS Limited/Unobtainable: Yes Subjective 76 YO F admitted with shortness of breath. Now pneumonia. Cover for Int Daniel- Dr Cedillo. ICU. CT chest=occlusion left mainstem bronchus-Intubated 02/25/17. Failed weaning protocol Objective Last Vital Signs Date Time Temp Pulse Resp B/P (MAP) Pulse Ox O2 Delivery O2 Flow Rate FiO2 03/04/17 13:15 98.2 03/04/17 13:00 90 21 116/61 100 Mechanical Ventilator 40 02/26/17 06:45 15.0 Laboratory Tests Test 03/04/17 05:00 White Blood Count 11.1 K/UL (4.8-10.8) H Red Blood Count 2.77 M/UL (4.20-5.40) L Hemoglobin 9.1 G/DL (12.0-16.0) L Hematocrit 28.0 % (37.0-47.0) L Mean Corpuscular Volume 101 FL (80-99) H Mean Corpuscular Hemoglobin 33.0 PG (27.0-31.0) H Mean Corpuscular Hemoglobin Concent 32.6 G/DL (32.0-36.0) Red Cell Distribution Width 12.1 % (11.6-14.8) Platelet Count 261 K/UL (150-450) Mean Platelet Volume 8.1 FL (6.5-10.1) Neutrophils (%) (Auto) 69.2 % (45.0-75.0) Lymphocytes (%) (Auto) 24.6 % (20.0-45.0) Monocytes (%) (Auto) 6.0 % (1.0-10.0) Eosinophils (%) (Auto) 0.0 % (0.0-3.0) Basophils (%) (Auto) 0.2 % (0.0-2.0) Sodium Level 148 MMOL/L (136-145) H Potassium Level 3.9 MMOL/L (3.5-5.1) Chloride Level 111 MMOL/L (98-107) H Carbon Dioxide Level 29 MMOL/L (21-32) Anion Gap 8 mmol/L (5-15) Blood Urea Nitrogen 37 mg/dL (7-18) H Creatinine 0.8 MG/DL (0.55-1.30) Estimat Glomerular Filtration Rate mL/min (>60) Glucose Level 126 MG/DL (74-106) H Calcium Level 9.5 MG/DL (8.5-10.1) Total Bilirubin 0.4 MG/DL (0.2-1.0) Aspartate Amino Transf (AST/SGOT) 15 U/L (15-37) Alanine Aminotransferase (ALT/SGPT) 16 U/L (12-78) Alkaline Phosphatase 48 U/L (46-116) Pro-B-Type Natriuretic Peptide 3671 pg/mL (0-125) H Total Protein 6.5 G/DL (6.4-8.2) Albumin 2.6 G/DL (3.4-5.0) L Globulin 3.9 g/dL Albumin/Globulin Ratio 0.7 (1.0-2.7) L Intake and Output 03/04/17 03/05/17 19:00 07:00 Intake Total 495 ml Output Total 560 ml Balance -65 ml Free Water 30 ml Tube Feeding 315 ml Other 150 ml Output Urine Total 560 ml # Bowel Movements 2 Objective General Appearance: WD/WN, no apparent distress, alert EENT: PERRL/EOMI, normal ENT inspection, TMs normal Neck: non-tender, normal alignment, supple, normal inspection Cardiovascular: normal peripheral pulses, normal rate, regular rhythm, no gallop/murmur, no JVD Respiratory/Chest: Mech Vent; chest wall non-tender, respiratory distress, decreased breath sounds, crackles/rales, rhonchi - bilaterally, expiratory wheezing Abdomen: normal bowel sounds, non tender, soft, no organomegaly, no mass Extremities: normal range of motion 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 (8) Pneumonia Assessment & Plan: Continue Meropenem and vanco. See ID and pulmonary notes. (9) COPD exacerbation Assessment & Plan: Continue IV solumedrol and xopenex/atrovent nebs. See pulmonary note. (10) Diastolic CHF Assessment & Plan: See cardiology note. 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 S/P intubation to aerate left lung-see pulmonary note. D/W pulmonary Dr Hernandez (14) Respiratory failure requiring intubation Assessment & Plan: Failed weaning; Weaning trial tomorrow-see pulm note Status: not improved ZEB FUENTES Mar 04, 2017 13:33
--- NOTE | 2017-03-04 19:37 | Cardiology Progress Note ---
Assessment/Plan Assessment/Plan 1. Respiratory failure. 2. Chronic obstructive pulmonary disease exacerbation. 3. Questionable pneumonia. 4. History of mitral regurgitation of significant degree. 5. History of subdural hematomas and intracranial hemorrhage. 6. History of breast cancer. 7. Anemia. 8. History of Clostridium difficile colitis. 9. History of anxiety. 10. Sinus tachycardia secondary to above. 11. Htn 12. CHF acute diastolic 13. l m bronchus occlusion with debris 14. lung collapase 15 Hypotension resolved 16. alkalosis vent spport remains in icu intubated labs reviewed bp ok today tele sinus wean as feesible may need diuretics Subjective Cardiovascular: Denies: chest pain, lightheadedness, palpitations Respiratory: Denies: shortness of breath Gastrointestinal/Abdominal: Denies: abdominal pain Genitourinary: Denies: burning Subjective on vent Objective Last 24 Hour Vital Signs Date Time Temp Pulse Resp B/P (MAP) Pulse Ox O2 Delivery O2 Flow Rate FiO2 03/04/17 19:17 83 25 35 03/04/17 19:00 85 17 145/65 96 Mechanical Ventilator 35 03/04/17 18:18 98.7 03/04/17 18:00 83 25 143/62 99 Mechanical Ventilator 35 03/04/17 17:20 129/63 03/04/17 17:00 83 36 129/63 95 Mechanical Ventilator 35 03/04/17 16:58 85 22 35 03/04/17 16:00 91 03/04/17 16:00 98.7 86 21 146/67 98 Mechanical Ventilator 35 03/04/17 16:00 35 03/04/17 15:00 93 21 133/64 100 Mechanical Ventilator 35 03/04/17 14:35 90 27 35 03/04/17 14:00 87 21 141/66 99 Mechanical Ventilator 35 03/04/17 13:00 90 21 116/61 100 Mechanical Ventilator 35 03/04/17 12:37 86 15 35 03/04/17 12:16 87 120/60 03/04/17 12:00 98.2 87 15 120/60 99 Mechanical Ventilator 35 03/04/17 12:00 89 03/04/17 12:00 35 03/04/17 11:03 97 18 128/60 99 Mechanical Ventilator 40 03/04/17 11:02 91 18 35 03/04/17 10:00 91 22 156/66 99 Mechanical Ventilator 40 03/04/17 09:13 75 12 35 03/04/17 09:12 99 03/04/17 09:00 76 13 142/68 99 Mechanical Ventilator 40 03/04/17 08:31 187/72 03/04/17 08:30 187/72 03/04/17 08:30 88 187/72 03/04/17 08:00 98.7 90 22 174/72 99 Mechanical Ventilator 40 03/04/17 08:00 35 03/04/17 08:00 78 03/04/17 07:28 81 17 35 03/04/17 07:00 90 18 173/71 100 Mechanical Ventilator 35 03/04/17 06:18 96 174/72 03/04/17 06:00 96 18 174/72 100 Mechanical Ventilator 35 03/04/17 05:00 87 18 105/25 100 Mechanical Ventilator 35 03/04/17 04:35 91 20 35 03/04/17 04:00 98.6 91 20 158/75 100 Mechanical Ventilator 35 03/04/17 04:00 92 03/04/17 04:00 35 03/04/17 03:29 84 19 35 03/04/17 03:00 82 18 156/64 100 Mechanical Ventilator 35 03/04/17 02:00 82 18 152/56 100 Mechanical Ventilator 35 03/04/17 01:27 82 17 35 03/04/17 01:00 83 18 148/68 100 Mechanical Ventilator 35 03/04/17 00:00 35 03/04/17 00:00 98.0 80 20 150/86 100 Mechanical Ventilator 35 03/04/17 00:00 85 03/03/17 23:19 89 18 35 03/03/17 23:00 90 18 134/54 100 Mechanical Ventilator 35 03/03/17 22:00 82 18 153/65 100 Mechanical Ventilator 35 03/03/17 21:25 83 17 35 03/03/17 21:00 85 18 160/83 100 Mechanical Ventilator 35 03/03/17 20:41 87 167/93 03/03/17 20:00 35 03/03/17 20:00 98.8 84 20 143/82 100 Mechanical Ventilator 35 03/03/17 20:00 86 General Appearance: alert, on vent Neck: supple Cardiovascular: normal rate, regular rhythm Respiratory/Chest: lungs clear Abdomen: normal bowel sounds, non tender, soft Extremities: no swelling Intake and Output 03/04/17 03/05/17 19:00 07:00 Intake Total 815 ml Output Total 1110 ml Balance -295 ml Free Water 30 ml Tube Feeding 585 ml Other 200 ml Output Urine Total 1110 ml # Bowel Movements 2 Laboratory Tests Test 03/04/17 05:00 White Blood Count 11.1 K/UL (4.8-10.8) H Red Blood Count 2.77 M/UL (4.20-5.40) L Hemoglobin 9.1 G/DL (12.0-16.0) L Hematocrit 28.0 % (37.0-47.0) L Mean Corpuscular Volume 101 FL (80-99) H Mean Corpuscular Hemoglobin 33.0 PG (27.0-31.0) H Mean Corpuscular Hemoglobin Concent 32.6 G/DL (32.0-36.0) Red Cell Distribution Width 12.1 % (11.6-14.8) Platelet Count 261 K/UL (150-450) Mean Platelet Volume 8.1 FL (6.5-10.1) Neutrophils (%) (Auto) 69.2 % (45.0-75.0) Lymphocytes (%) (Auto) 24.6 % (20.0-45.0) Monocytes (%) (Auto) 6.0 % (1.0-10.0) Eosinophils (%) (Auto) 0.0 % (0.0-3.0) Basophils (%) (Auto) 0.2 % (0.0-2.0) Sodium Level 148 MMOL/L (136-145) H Potassium Level 3.9 MMOL/L (3.5-5.1) Chloride Level 111 MMOL/L (98-107) H Carbon Dioxide Level 29 MMOL/L (21-32) Anion Gap 8 mmol/L (5-15) Blood Urea Nitrogen 37 mg/dL (7-18) H Creatinine 0.8 MG/DL (0.55-1.30) Estimat Glomerular Filtration Rate mL/min (>60) Glucose Level 126 MG/DL (74-106) H Calcium Level 9.5 MG/DL (8.5-10.1) Total Bilirubin 0.4 MG/DL (0.2-1.0) Aspartate Amino Transf (AST/SGOT) 15 U/L (15-37) Alanine Aminotransferase (ALT/SGPT) 16 U/L (12-78) Alkaline Phosphatase 48 U/L (46-116) Pro-B-Type Natriuretic Peptide 3671 pg/mL (0-125) H Total Protein 6.5 G/DL (6.4-8.2) Albumin 2.6 G/DL (3.4-5.0) L Globulin 3.9 g/dL Albumin/Globulin Ratio 0.7 (1.0-2.7) L JEFFERSON ROMEO Mar 04, 2017 19:37
[2017-03-04] MEDS: Carvedilol 12.5mg tab ORAL SCH (20:55)
--- NOTE | 2017-03-04 22:15 | General Progress Note ---
Assessment/Plan Status: stable, progressing Assessment/Plan anxiety d/o' encephalopathy -cont current meds -provided ro/st Subjective Neurologic/Psychiatric: Reports: anxiety, depressed, emotional problems Allergies: Coded Allergies: TETRACYCLINE (Unverified Allergy, Unknown, 07/24/14) Subjective the pt was lethargic however arousable and knows where she was Objective Last 24 Hour Vital Signs Date Time Temp Pulse Resp B/P (MAP) Pulse Ox O2 Delivery O2 Flow Rate FiO2 03/04/17 22:00 78 14 104/51 100 Mechanical Ventilator 35 03/04/17 21:00 88 21 105/92 100 Mechanical Ventilator 35 03/04/17 20:56 79 21 35 03/04/17 20:55 79 142/61 03/04/17 20:00 98.4 82 18 142/61 98 Mechanical Ventilator 35 03/04/17 19:17 83 25 35 03/04/17 19:00 85 17 145/65 96 Mechanical Ventilator 35 03/04/17 18:18 98.7 03/04/17 18:00 83 25 143/62 99 Mechanical Ventilator 35 03/04/17 17:20 129/63 03/04/17 17:00 83 36 129/63 95 Mechanical Ventilator 35 03/04/17 16:58 85 22 35 03/04/17 16:00 91 03/04/17 16:00 98.7 86 21 146/67 98 Mechanical Ventilator 35 03/04/17 16:00 35 03/04/17 15:00 93 21 133/64 100 Mechanical Ventilator 35 03/04/17 14:35 90 27 35 03/04/17 14:00 87 21 141/66 99 Mechanical Ventilator 35 03/04/17 13:00 90 21 116/61 100 Mechanical Ventilator 35 03/04/17 12:37 86 15 35 03/04/17 12:16 87 120/60 03/04/17 12:00 98.2 87 15 120/60 99 Mechanical Ventilator 35 03/04/17 12:00 89 03/04/17 12:00 35 03/04/17 11:03 97 18 128/60 99 Mechanical Ventilator 40 03/04/17 11:02 91 18 35 03/04/17 10:00 91 22 156/66 99 Mechanical Ventilator 40 03/04/17 09:13 75 12 35 03/04/17 09:12 99 03/04/17 09:00 76 13 142/68 99 Mechanical Ventilator 40 03/04/17 08:31 187/72 03/04/17 08:30 187/72 03/04/17 08:30 88 187/72 03/04/17 08:00 98.7 90 22 174/72 99 Mechanical Ventilator 40 03/04/17 08:00 35 03/04/17 08:00 78 03/04/17 07:28 81 17 35 03/04/17 07:00 90 18 173/71 100 Mechanical Ventilator 35 03/04/17 06:18 96 174/72 03/04/17 06:00 96 18 174/72 100 Mechanical Ventilator 35 03/04/17 05:00 87 18 105/25 100 Mechanical Ventilator 35 03/04/17 04:35 91 20 35 03/04/17 04:00 98.6 91 20 158/75 100 Mechanical Ventilator 35 03/04/17 04:00 92 03/04/17 04:00 35 03/04/17 03:29 84 19 35 03/04/17 03:00 82 18 156/64 100 Mechanical Ventilator 35 03/04/17 02:00 82 18 152/56 100 Mechanical Ventilator 35 03/04/17 01:27 82 17 35 03/04/17 01:00 83 18 148/68 100 Mechanical Ventilator 35 03/04/17 00:00 35 03/04/17 00:00 98.0 80 20 150/86 100 Mechanical Ventilator 35 03/04/17 00:00 85 03/03/17 23:19 89 18 35 03/03/17 23:00 90 18 134/54 100 Mechanical Ventilator 35 Intake and Output 03/04/17 03/05/17 19:00 07:00 Intake Total 815 ml 50 ml Output Total 1110 ml 275 ml Balance -295 ml -225 ml Free Water 30 ml Tube Feeding 585 ml 0 ml Other 200 ml 50 ml Output Urine Total 1110 ml 275 ml # Bowel Movements 2 Laboratory Tests 03/04/17 05:00: White Blood Count 11.1H, Red Blood Count 2.77L, Hemoglobin 9.1L, Hematocrit 28.0L, Mean Corpuscular Volume 101H, Mean Corpuscular Hemoglobin 33.0H, Mean Corpuscular Hemoglobin Concent 32.6, Red Cell Distribution Width 12.1, Platelet Count 261, Mean Platelet Volume 8.1, Neutrophils (%) (Auto) 69.2, Lymphocytes (% ) (Auto) 24.6, Monocytes (%) (Auto) 6.0, Eosinophils (%) (Auto) 0.0, Basophils ( %) (Auto) 0.2, Sodium Level 148H, Potassium Level 3.9, Chloride Level 111H, Carbon Dioxide Level 29, Anion Gap 8, Blood Urea Nitrogen 37H, Creatinine 0.8, Estimat Glomerular Filtration Rate , Glucose Level 126H, Calcium Level 9.5, Total Bilirubin 0.4, Aspartate Amino Transf (AST/SGOT) 15, Alanine Aminotransferase (ALT/SGPT) 16, Alkaline Phosphatase 48, Pro-B-Type Natriuretic Peptide 3671H, Total Protein 6.5, Albumin 2.6L, Globulin 3.9, Albumin/Globulin Ratio 0.7L Height (Feet): 5 Height (Inches): 7.00 Weight (Pounds): 115 General Appearance: no apparent distress, alert, overweight Neurologic: alert, responsive, depressed affect Wan Stern M.D. Mar 04, 2017 22:15
[2017-03-05] VITALS (24 sets, daily range): BP systolic 96–180; BP diastolic 44–89
[2017-03-05] MEDS: Midazolam/D5W 100ml 100 ML IVPB SCH (03:35)
[2017-03-05 05:17] LABS: BASOPHILS % (AUTO) 0.3 % (0.0-2.0); EOSINOPHILS % (AUTO) 0.4 % (0.0-3.0); HEMATOCRIT 28.9 % (37.0-47.0); HEMOGLOBIN 9.2 G/DL (12.0-16.0); LYMPHOCYTES % (AUTO) 27.3 % (20.0-45.0); MEAN CORPUSCULAR VOLUME 101 FL (80-99); MONOCYTES % (AUTO) 7.8 % (1.0-10.0); NEUTROPHILS % (AUTO) 64.2 % (45.0-75.0); PLATELET COUNT 249 K/UL (150-450); RED BLOOD COUNT 2.86 M/UL (4.20-5.40); RED CELL DISTRIBUTION WIDTH 12.1 % (11.6-14.8); WHITE BLOOD COUNT 9.9 K/UL (4.8-10.8)
[2017-03-05] MEDS: Metoclopramide 10mg/2ml Inj IVP SCH ×3 (06:02→22:07)
[2017-03-05 06:19] LABS: ALANINE AMINOTRANSFERASE 14 U/L (12-78); ALBUMIN 2.6 G/DL (3.4-5.0); ALBUMIN/GLOBULIN RATIO 0.7 (1.0-2.7); ALKALINE PHOSPHATASE 49 U/L (46-116); ANION GAP 6 mmol/L (5-15); ASPARTATE AMINO TRANSFERASE 14 U/L (15-37); BILIRUBIN,TOTAL 0.4 MG/DL (0.2-1.0); BLOOD UREA NITROGEN 39 mg/dL (7-18); CALCIUM 9.8 MG/DL (8.5-10.1); CARBON DIOXIDE 31 MMOL/L (21-32); CHLORIDE 111 MMOL/L (98-107); CREATININE 0.7 MG/DL (0.55-1.30); PHOSPHORUS 2.5 MG/DL (2.5-4.9); POTASSIUM 4.3 MMOL/L (3.5-5.1); SODIUM 148 MMOL/L (136-145)
[2017-03-05] MEDS: Carvedilol 12.5mg tab ORAL SCH (09:08)
[2017-03-05] MEDS: Aspirin EC 81mg tab ORAL SCH (09:09)
[2017-03-05] MEDS: Lisinopril 20mg tab ORAL SCH ×2 (09:09→17:20)
[2017-03-05] MEDS: Lyrica 75mg cap ORAL SCH ×3 (09:09→17:20)
[2017-03-05] MEDS: Pantoprazole Inj IV SCH (09:10)
[2017-03-05] MEDS: Allopurinol 100mg Tab ORAL SCH (09:10)
--- NOTE | 2017-03-05 09:29 | Diagnostic Imaging Report ---
Indication: DYSPNEA Technique: One view of the chest Comparison: 03/04/2017 Findings: Interim slight decrease in pleural fluid at the left lung base. Stable or minimally improved hazy right lung opacity. Stable satisfactory positions of endotracheal and nasogastric tube. Right-sided mediastinal and right axillary surgical clips are again demonstrated. Impression: Over one day, minimal improvement of left-sided pleural effusion and right lung parenchymal disease
--- NOTE | 2017-03-05 10:45 | Infectious Diseases Prog Note ---
Assessment/Plan Assessment/Plan Abx: IV Vanco 02/15-03/01 Cefepime 02/15-02/18 Meropenem 02/18-03/03 Assesment: Acute hypoxic resp failure, - combination of COPD exacerbation and PNA; worsened 02/18; Intubated 02/26 -venous duplex 02/16 no DVT PNA- SGS(-), Cx Neg; s/p Rx - SP bronch 02/26 (collected 02/26, however received on the lab 03/03??): BAL cx NTD -CXR 03/03: Stable bilateral interstitial and alveolar opacities, probable small left pleural effusion, elevation left hemidiaphragm -CXR 03/01: Patchy, mainly interstitial appearing disease noted bilaterally. Findings may be due to infiltrates or CHF - CT Chest 02/24: Near-complete occlusion of the left mainstem bronchus and proximal lobar bronchi, probably by debris. Extensive resultant atelectasis and consolidation of nearly the entire left lung. Less extensive consolidation within the right lung, nonspecific as regards etiology, likely secondary to pneumonia or edema -CXR 02/23: Better inspiration currently. Overall improved aeration of the right mid and lower lung, with decreased dense consolidation and is still fairly extensive parenchymal opacity. The right pleural space is clear. Large left pleural effusion is again demonstrated, and is increased from the prior exam. There is also increasing consolidation of the residual aerated lung in the left upper hemithorax. -CXR: Limited evaluation due to significant degree of soft tissue attenuation. Suspect pneumonia at the right lung base. -Cr Ag serum neg; cocci ab pending L pleural effusion - improved Leukocytosis, mild - recurrent, resolved (on steroids) Fever x1 COPD on home O2 Hx of Cdiff DM2 Chronic abd pain hx of MRSA bacteremia 07/2015 TCA allergy Full Code fibromyalgia, HTN, HLD, R breast cancer,Tobacco abuse (stopped 4 years ago), Anxiety, AOCD Plan: -Continue to monitor off abx, unless febrile, HD unstable -s/p 14d IV Meropenem 03/03 -s/p 14 d IV Vancomycin 03/01 -s/p 6d prophylactic PO vanco 02/21 -s/p 4 d Cefepime 02/18 -f/u Cocci ab , BAL cx -Monitor CBC/BMP, temperatures -Aspiration precautions - vent support, wean as tolerated Discussed with RN. Subjective Allergies: Coded Allergies: TETRACYCLINE (Unverified Allergy, Unknown, 07/24/14) Subjective afebrile now off abx leukocytosis resolved BAL cx NTD Objective Vital Signs Last 24 Hour Vital Signs Date Time Temp Pulse Resp B/P (MAP) Pulse Ox O2 Delivery O2 Flow Rate FiO2 03/05/17 10:08 98.9 03/05/17 10:00 83 23 163/82 94 Mechanical Ventilator 30 03/05/17 09:09 85 180/89 03/05/17 09:09 180/89 03/05/17 09:08 80 180/89 03/05/17 09:00 88 23 180/89 94 Mechanical Ventilator 30 03/05/17 08:53 73 14 30 03/05/17 08:52 95 03/05/17 08:00 80 03/05/17 08:00 99.0 77 19 171/80 99 Mechanical Ventilator 30 03/05/17 07:48 30 03/05/17 07:14 82 23 30 03/05/17 07:00 80 23 173/69 94 Mechanical Ventilator 30 03/05/17 06:00 74 17 160/65 95 Mechanical Ventilator 30 03/05/17 05:09 80 24 30 03/05/17 05:00 74 20 156/65 95 Mechanical Ventilator 30 03/05/17 04:00 30 03/05/17 04:00 77 03/05/17 04:00 98.1 79 20 167/70 99 Mechanical Ventilator 30 03/05/17 03:35 17 03/05/17 03:20 76 17 30 03/05/17 03:00 76 17 144/61 100 Mechanical Ventilator 30 03/05/17 02:00 74 16 151/63 100 Mechanical Ventilator 30 03/05/17 01:10 71 14 30 03/05/17 01:00 71 14 123/55 100 Mechanical Ventilator 30 03/05/17 00:00 30 03/05/17 00:00 98.0 71 14 120/55 100 Mechanical Ventilator 30 03/04/17 23:00 30 03/04/17 23:00 73 12 100/50 100 Mechanical Ventilator 30 03/04/17 22:35 83 17 30 03/04/17 22:00 78 14 104/51 100 Mechanical Ventilator 35 03/04/17 21:00 88 21 105/92 100 Mechanical Ventilator 35 03/04/17 20:56 79 21 35 03/04/17 20:55 79 142/61 03/04/17 20:00 82 03/04/17 20:00 98.4 82 18 142/61 98 Mechanical Ventilator 35 03/04/17 19:17 83 25 35 03/04/17 19:00 85 17 145/65 96 Mechanical Ventilator 35 03/04/17 18:00 83 25 143/62 99 Mechanical Ventilator 35 03/04/17 17:20 129/63 03/04/17 17:00 83 36 129/63 95 Mechanical Ventilator 35 03/04/17 16:58 85 22 35 03/04/17 16:00 91 03/04/17 16:00 98.7 86 21 146/67 98 Mechanical Ventilator 35 03/04/17 16:00 35 03/04/17 15:00 93 21 133/64 100 Mechanical Ventilator 35 03/04/17 14:35 90 27 35 03/04/17 14:00 87 21 141/66 99 Mechanical Ventilator 35 03/04/17 13:00 90 21 116/61 100 Mechanical Ventilator 35 03/04/17 12:37 86 15 35 03/04/17 12:16 87 120/60 03/04/17 12:00 98.2 87 15 120/60 99 Mechanical Ventilator 35 03/04/17 12:00 89 03/04/17 12:00 35 03/04/17 11:03 97 18 128/60 99 Mechanical Ventilator 40 03/04/17 11:02 91 18 35 Height (Feet): 5 Height (Inches): 7.00 Weight (Pounds): 117 Objective General Appearance: lethargic but arousable HEENT: PERRL, ETT in place, atraumatic head Neck: supple Respiratory: scattered wheezing Cardiovascular: regular rate, rhythmm, no murmurs Gastrointestinal: normal inspection, non tender, no mass, non-distended Musculoskeletal: L>R arm swelling and erythema Skin: no lesions or rashes reviewed Laboratory Tests Test 03/05/17 04:00 03/05/17 04:35 Arterial Blood pH 7.482 (7.350-7.450) Arterial Blood Partial Pressure CO2 46.1 mmHg (35.0-45.0) H Arterial Blood Partial Pressure O2 72.4 mmHg (75.0-100.0) L Arterial Blood HCO3 33.7 mmol/L (22.0-26.0) H Arterial Blood Oxygen Saturation 93.7 % (92.0-98.0) Arterial Blood Base Excess 9.2 Scooby Test Positive White Blood Count 9.9 K/UL (4.8-10.8) Red Blood Count 2.86 M/UL (4.20-5.40) L Hemoglobin 9.2 G/DL (12.0-16.0) L Hematocrit 28.9 % (37.0-47.0) L Mean Corpuscular Volume 101 FL (80-99) H Mean Corpuscular Hemoglobin 32.2 PG (27.0-31.0) H Mean Corpuscular Hemoglobin Concent 31.8 G/DL (32.0-36.0) L Red Cell Distribution Width 12.1 % (11.6-14.8) Platelet Count 249 K/UL (150-450) Mean Platelet Volume 8.4 FL (6.5-10.1) Neutrophils (%) (Auto) 64.2 % (45.0-75.0) Lymphocytes (%) (Auto) 27.3 % (20.0-45.0) Monocytes (%) (Auto) 7.8 % (1.0-10.0) Eosinophils (%) (Auto) 0.4 % (0.0-3.0) Basophils (%) (Auto) 0.3 % (0.0-2.0) Sodium Level 148 MMOL/L (136-145) H Potassium Level 4.3 MMOL/L (3.5-5.1) Chloride Level 111 MMOL/L (98-107) H Carbon Dioxide Level 31 MMOL/L (21-32) Anion Gap 6 mmol/L (5-15) Blood Urea Nitrogen 39 mg/dL (7-18) H Creatinine 0.7 MG/DL (0.55-1.30) Estimat Glomerular Filtration Rate mL/min (>60) Glucose Level 121 MG/DL (74-106) H Calcium Level 9.8 MG/DL (8.5-10.1) Phosphorus Level 2.5 MG/DL (2.5-4.9) Magnesium Level 2.5 MG/DL (1.8-2.4) H Total Bilirubin 0.4 MG/DL (0.2-1.0) Aspartate Amino Transf (AST/SGOT) 14 U/L (15-37) L Alanine Aminotransferase (ALT/SGPT) 14 U/L (12-78) Alkaline Phosphatase 49 U/L (46-116) Total Protein 6.5 G/DL (6.4-8.2) Albumin 2.6 G/DL (3.4-5.0) L Globulin 3.9 g/dL Albumin/Globulin Ratio 0.7 (1.0-2.7) L Current Medications Medications (Trade) Dose Ordered Sig/Wilner Route PRN Reason Start Time Stop Time Status Last Admin Dose Admin Acetaminophen (Tylenol) 650 mg Q4H PRN ORAL FEVER 02/25/17 15:15 03/27/17 15:14 02/26/17 16:37 Allopurinol (Zyloprim) 100 mg DAILY ORAL 03/02/17 09:00 04/01/17 08:59 03/05/17 09:10 Amlodipine Besylate (Norvasc) 10 mg DAILY ORAL 03/04/17 12:00 04/03/17 11:59 03/05/17 09:09 Aspirin (Ecotrin) 81 mg DAILY ORAL 02/26/17 09:00 03/19/17 08:59 03/05/17 09:09 Bisacodyl (Dulcolax) 10 mg DAILYPRN PRN RECTAL Constipation Third Line Agent 02/25/17 15:15 03/27/17 15:14 Carvedilol (Coreg) 12.5 mg Q12HR ORAL 03/04/17 21:00 04/03/17 20:59 03/05/17 09:08 Clonazepam (KlonoPIN) 1 mg DAILY ORAL 03/01/17 09:00 03/08/17 08:59 03/05/17 09:10 Dextrose (Dextrose 50%) STAT PRN IV Hypoglycemia 02/25/17 15:15 03/17/17 15:14 Escitalopram Oxalate (Lexapro) 10 mg DAILY ORAL 02/26/17 09:00 03/20/17 08:59 03/05/17 09:09 Haloperidol Lactate (Haldol) 2 mg Q4H PRN IM Agitation 02/25/17 15:15 03/27/17 15:14 02/25/17 22:38 Hydralazine HCl (Apresoline) 25 mg Q4H PRN ORAL SBP > 160mmHg 02/25/17 15:15 03/27/17 15:14 03/04/17 08:30 Lidocaine (Xylocaine 1% MPF 5ml) 10 ml Q4H PRN HHN cough 02/25/17 15:15 03/19/17 15:14 Lisinopril (Prinivil) 20 mg BID ORAL 02/25/17 18:00 03/27/17 17:59 03/05/17 09:09 Lorazepam (Ativan 2mg/ml 1ml) 2 mg Q4H PRN IV For Anxiety 02/26/17 11:00 03/05/17 10:59 03/04/17 01:18 Metoclopramide HCl (Reglan) 5 mg Q8HR IVP 03/04/17 22:00 04/03/17 21:59 03/05/17 06:02 Midazolam HCl 100 ml @ 0 mls/hr Q24H IVPB 03/01/17 04:00 03/08/17 03:59 03/03/17 10:29 Morphine Sulfate (Morphine Sulfate) 4 mg Q4H PRN IVP Breakthrough Pain 02/26/17 11:00 03/07/17 10:59 02/27/17 01:01 Ondansetron HCl (Zofran) 4 mg Q6H PRN IVP Nausea & Vomiting 02/25/17 15:15 03/17/17 15:14 Pantoprazole (Protonix) 40 mg DAILY IV 02/27/17 09:00 03/29/17 08:59 03/05/17 09:10 Polyethylene Glycol (Miralax) 17 gm DAILYPRN PRN ORAL Constipation First line agent 02/25/17 15:15 03/17/17 15:14 Pravastatin Sodium (Pravachol) 20 mg BEDTIME ORAL 02/25/17 21:00 03/18/17 20:59 03/04/17 20:55 Prednisone (predniSONE) 40 mg DAILY ORAL 02/26/17 09:00 03/28/17 08:59 03/05/17 09:10 Pregabalin (Lyrica) 150 mg THREE TIMES A DAY ORAL 02/25/17 18:00 03/18/17 12:59 03/05/17 09:09 Promethazine HCl/ Codeine (Phenergan with Codeine) 5 ml Q4H PRN ORAL UNRELIEVED COUGH 02/25/17 15:15 03/18/17 15:14 Ranitidine HCl (Zantac) 150 mg QPM ORAL 02/25/17 16:30 03/27/17 16:29 03/04/17 17:20 Alyse Traylor M.D. Mar 05, 2017 10:45
--- NOTE | 2017-03-05 11:32 | Pulmonolgy Critical Care Note ---
Critical Care - Asmt/Plan Problems: (1) Acute and chronic respiratory failure ([id number]) (2) COPD (chronic obstructive pulmonary disease) (3) Right middle lobe pneumonia (4) Collapse of left lung Respiratory: monitor respiratory rate, adjust FIO2, CXR Cardiac: continue to monitor HR/BP Renal: F/U I&O, keep IV fluid Infectious Disease: check cultures Gastrointestinal: continue feedings/current rate Endocrine: monitor blood sugar, check TSH, continue sliding scale insulin Hematologic: transfuse if hgb<8.5 Neurologic: PRN Ativan, PRN Morphine, keep patient comfortable Prophylaxis: Protonix Time Spent (Minutes): 40 Notes 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, renal Discussed with: nurses, consultants, watch casermaterial requirements planning manager - Objective Last 24 Hour Vital Signs Date Time Temp Pulse Resp B/P (MAP) Pulse Ox O2 Delivery O2 Flow Rate FiO2 03/05/17 11:00 82 21 174/72 94 Mechanical Ventilator 30 03/05/17 10:48 82 32 30 03/05/17 10:08 98.9 03/05/17 10:00 83 23 163/82 94 Mechanical Ventilator 30 03/05/17 09:09 85 180/89 03/05/17 09:09 180/89 03/05/17 09:08 80 180/89 03/05/17 09:00 88 23 180/89 94 Mechanical Ventilator 30 03/05/17 08:53 73 14 30 03/05/17 08:52 95 03/05/17 08:00 80 03/05/17 08:00 99.0 77 19 171/80 99 Mechanical Ventilator 30 03/05/17 07:48 30 03/05/17 07:14 82 23 30 03/05/17 07:00 80 23 173/69 94 Mechanical Ventilator 30 03/05/17 06:00 74 17 160/65 95 Mechanical Ventilator 30 03/05/17 05:09 80 24 30 03/05/17 05:00 74 20 156/65 95 Mechanical Ventilator 30 03/05/17 04:00 30 03/05/17 04:00 77 03/05/17 04:00 98.1 79 20 167/70 99 Mechanical Ventilator 30 03/05/17 03:35 17 03/05/17 03:20 76 17 30 03/05/17 03:00 76 17 144/61 100 Mechanical Ventilator 30 03/05/17 02:00 74 16 151/63 100 Mechanical Ventilator 30 03/05/17 01:10 71 14 30 03/05/17 01:00 71 14 123/55 100 Mechanical Ventilator 30 03/05/17 00:00 30 03/05/17 00:00 98.0 71 14 120/55 100 Mechanical Ventilator 30 03/04/17 23:00 30 03/04/17 23:00 73 12 100/50 100 Mechanical Ventilator 30 03/04/17 22:35 83 17 30 03/04/17 22:00 78 14 104/51 100 Mechanical Ventilator 35 03/04/17 21:00 88 21 105/92 100 Mechanical Ventilator 35 03/04/17 20:56 79 21 35 03/04/17 20:55 79 142/61 03/04/17 20:00 82 03/04/17 20:00 98.4 82 18 142/61 98 Mechanical Ventilator 35 03/04/17 19:17 83 25 35 03/04/17 19:00 85 17 145/65 96 Mechanical Ventilator 35 03/04/17 18:00 83 25 143/62 99 Mechanical Ventilator 35 03/04/17 17:20 129/63 03/04/17 17:00 83 36 129/63 95 Mechanical Ventilator 35 03/04/17 16:58 85 22 35 03/04/17 16:00 91 03/04/17 16:00 98.7 86 21 146/67 98 Mechanical Ventilator 35 03/04/17 16:00 35 03/04/17 15:00 93 21 133/64 100 Mechanical Ventilator 35 03/04/17 14:35 90 27 35 03/04/17 14:00 87 21 141/66 99 Mechanical Ventilator 35 03/04/17 13:00 90 21 116/61 100 Mechanical Ventilator 35 03/04/17 12:37 86 15 35 03/04/17 12:16 87 120/60 03/04/17 12:00 98.2 87 15 120/60 99 Mechanical Ventilator 35 03/04/17 12:00 89 03/04/17 12:00 35 Status: awake Condition: critical HEENT: atraumatic, normocephalic Lungs: clear, chest wall tender Heart: HR/BP stable Abdomen: soft, non-tender Extremities: edema Decubiti: location Accucheck: 124 Critical Care - Subjective ROS Limited/Unobtainable: Yes ICU Day: 10 Condition: critical EKG Rhythm: Sinus Rhythm FI02: 30 Vent Support Breath Rate: 8 Vent Support Mode: IMV/SIMV Vent Tidal Volume: 500 Sputum Amount: Moderate PEEP: 0.0 PIP: 10 Secretions: small Tube Feeding Amount: 45 I&O: Intake and Output 03/05/17 03/06/17 19:00 07:00 Intake Total 230 ml Output Total 480 ml Balance -250 ml Tube Feeding 180 ml Other 50 ml Output Urine Total 480 ml CXR: clear, ET in good position ET-Tube: 8.0 ET Position: 21 Labs: Laboratory Tests Test 03/05/17 04:00 03/05/17 04:35 Arterial Blood pH 7.482 (7.350-7.450) Arterial Blood Partial Pressure CO2 46.1 mmHg (35.0-45.0) H Arterial Blood Partial Pressure O2 72.4 mmHg (75.0-100.0) L Arterial Blood HCO3 33.7 mmol/L (22.0-26.0) H Arterial Blood Oxygen Saturation 93.7 % (92.0-98.0) Arterial Blood Base Excess 9.2 Scooby Test Positive White Blood Count 9.9 K/UL (4.8-10.8) Red Blood Count 2.86 M/UL (4.20-5.40) L Hemoglobin 9.2 G/DL (12.0-16.0) L Hematocrit 28.9 % (37.0-47.0) L Mean Corpuscular Volume 101 FL (80-99) H Mean Corpuscular Hemoglobin 32.2 PG (27.0-31.0) H Mean Corpuscular Hemoglobin Concent 31.8 G/DL (32.0-36.0) L Red Cell Distribution Width 12.1 % (11.6-14.8) Platelet Count 249 K/UL (150-450) Mean Platelet Volume 8.4 FL (6.5-10.1) Neutrophils (%) (Auto) 64.2 % (45.0-75.0) Lymphocytes (%) (Auto) 27.3 % (20.0-45.0) Monocytes (%) (Auto) 7.8 % (1.0-10.0) Eosinophils (%) (Auto) 0.4 % (0.0-3.0) Basophils (%) (Auto) 0.3 % (0.0-2.0) Sodium Level 148 MMOL/L (136-145) H Potassium Level 4.3 MMOL/L (3.5-5.1) Chloride Level 111 MMOL/L (98-107) H Carbon Dioxide Level 31 MMOL/L (21-32) Anion Gap 6 mmol/L (5-15) Blood Urea Nitrogen 39 mg/dL (7-18) H Creatinine 0.7 MG/DL (0.55-1.30) Estimat Glomerular Filtration Rate mL/min (>60) Glucose Level 121 MG/DL (74-106) H Calcium Level 9.8 MG/DL (8.5-10.1) Phosphorus Level 2.5 MG/DL (2.5-4.9) Magnesium Level 2.5 MG/DL (1.8-2.4) H Total Bilirubin 0.4 MG/DL (0.2-1.0) Aspartate Amino Transf (AST/SGOT) 14 U/L (15-37) L Alanine Aminotransferase (ALT/SGPT) 14 U/L (12-78) Alkaline Phosphatase 49 U/L (46-116) Total Protein 6.5 G/DL (6.4-8.2) Albumin 2.6 G/DL (3.4-5.0) L Globulin 3.9 g/dL Albumin/Globulin Ratio 0.7 (1.0-2.7) L TWIN FONTANEZ Mar 05, 2017 11:32
--- NOTE | 2017-03-05 11:40 | General Progress Note ---
Assessment/Plan Status: stable - from renal stand Status Narrative BP unstable Assessment/Plan Status: Acute renal failure- etiology? 1900 cc urine out after insertion of shi--JOSE MIGUEL: Moderate right hydronephrosis. Acute on Chronic respiratory failure- day 2 intubation HTN High Cholestrol Pneumonia COPD , exac. Diastolic CHF, Mod MR h/o C dif colitis h/o Breast Ca Anemia Pulm HTN Moderate Plan: adjust BP meds weaning in process K and Phos supplement as needed pulm support adjust BP meds- Allopurinol continue Shi- Avoid nephrotoxics JOSE MIGUEL: Moderate right hydronephrosis. Subjective ROS Limited/Unobtainable: Yes Allergies: Coded Allergies: TETRACYCLINE (Unverified Allergy, Unknown, 07/24/14) Objective Last 24 Hour Vital Signs Date Time Temp Pulse Resp B/P (MAP) Pulse Ox O2 Delivery O2 Flow Rate FiO2 03/05/17 11:00 82 21 174/72 94 Mechanical Ventilator 30 03/05/17 10:48 82 32 30 03/05/17 10:08 98.9 03/05/17 10:00 83 23 163/82 94 Mechanical Ventilator 30 03/05/17 09:09 85 180/89 03/05/17 09:09 180/89 03/05/17 09:08 80 180/89 03/05/17 09:00 88 23 180/89 94 Mechanical Ventilator 30 03/05/17 08:53 73 14 30 03/05/17 08:52 95 03/05/17 08:00 80 03/05/17 08:00 99.0 77 19 171/80 99 Mechanical Ventilator 30 03/05/17 07:48 30 03/05/17 07:14 82 23 30 03/05/17 07:00 80 23 173/69 94 Mechanical Ventilator 30 03/05/17 06:00 74 17 160/65 95 Mechanical Ventilator 30 03/05/17 05:09 80 24 30 03/05/17 05:00 74 20 156/65 95 Mechanical Ventilator 30 03/05/17 04:00 30 03/05/17 04:00 77 03/05/17 04:00 98.1 79 20 167/70 99 Mechanical Ventilator 30 03/05/17 03:35 17 03/05/17 03:20 76 17 30 03/05/17 03:00 76 17 144/61 100 Mechanical Ventilator 30 03/05/17 02:00 74 16 151/63 100 Mechanical Ventilator 30 03/05/17 01:10 71 14 30 03/05/17 01:00 71 14 123/55 100 Mechanical Ventilator 30 03/05/17 00:00 30 03/05/17 00:00 98.0 71 14 120/55 100 Mechanical Ventilator 30 03/04/17 23:00 30 03/04/17 23:00 73 12 100/50 100 Mechanical Ventilator 30 03/04/17 22:35 83 17 30 03/04/17 22:00 78 14 104/51 100 Mechanical Ventilator 35 03/04/17 21:00 88 21 105/92 100 Mechanical Ventilator 35 03/04/17 20:56 79 21 35 03/04/17 20:55 79 142/61 03/04/17 20:00 82 03/04/17 20:00 98.4 82 18 142/61 98 Mechanical Ventilator 35 03/04/17 19:17 83 25 35 03/04/17 19:00 85 17 145/65 96 Mechanical Ventilator 35 03/04/17 18:00 83 25 143/62 99 Mechanical Ventilator 35 03/04/17 17:20 129/63 03/04/17 17:00 83 36 129/63 95 Mechanical Ventilator 35 03/04/17 16:58 85 22 35 03/04/17 16:00 91 03/04/17 16:00 98.7 86 21 146/67 98 Mechanical Ventilator 35 03/04/17 16:00 35 03/04/17 15:00 93 21 133/64 100 Mechanical Ventilator 35 03/04/17 14:35 90 27 35 03/04/17 14:00 87 21 141/66 99 Mechanical Ventilator 35 03/04/17 13:00 90 21 116/61 100 Mechanical Ventilator 35 03/04/17 12:37 86 15 35 03/04/17 12:16 87 120/60 03/04/17 12:00 98.2 87 15 120/60 99 Mechanical Ventilator 35 03/04/17 12:00 89 03/04/17 12:00 35 Intake and Output 03/05/17 03/06/17 19:00 07:00 Intake Total 230 ml Output Total 480 ml Balance -250 ml Tube Feeding 180 ml Other 50 ml Output Urine Total 480 ml Laboratory Tests 03/05/17 04:00: Arterial Blood pH 7.482H, Arterial Blood Partial Pressure CO2 46.1H, Arterial Blood Partial Pressure O2 72.4L, Arterial Blood HCO3 33.7H, Arterial Blood Oxygen Saturation 93.7, Arterial Blood Base Excess 9.2, Scooby Test Positive 03/05/17 04:35: White Blood Count 9.9, Red Blood Count 2.86L, Hemoglobin 9.2L, Hematocrit 28.9L , Mean Corpuscular Volume 101H, Mean Corpuscular Hemoglobin 32.2H, Mean Corpuscular Hemoglobin Concent 31.8L, Red Cell Distribution Width 12.1, Platelet Count 249, Mean Platelet Volume 8.4, Neutrophils (%) (Auto) 64.2, Lymphocytes (%) (Auto) 27.3, Monocytes (%) (Auto) 7.8, Eosinophils (%) (Auto) 0.4, Basophils (%) (Auto) 0.3, Sodium Level 148H, Potassium Level 4.3, Chloride Level 111H, Carbon Dioxide Level 31, Anion Gap 6, Blood Urea Nitrogen 39H, Creatinine 0.7, Estimat Glomerular Filtration Rate , Glucose Level 121H, Calcium Level 9.8, Phosphorus Level 2.5, Magnesium Level 2.5H, Total Bilirubin 0.4, Aspartate Amino Transf (AST/SGOT) 14L, Alanine Aminotransferase (ALT/SGPT) 14, Alkaline Phosphatase 49, Total Protein 6.5, Albumin 2.6L, Globulin 3.9, Albumin/Globulin Ratio 0.7L Height (Feet): 5 Height (Inches): 7.00 Weight (Pounds): 117 General Appearance: no apparent distress EENT: other - on vent Respiratory/Chest: decreased breath sounds Abdomen: soft Objective no edema GENARO DUARTE Mar 05, 2017 11:40
[2017-03-05] MEDS: HydrALAZINE 10mg Tab NG SCH ×2 (12:40→17:20)
--- NOTE | 2017-03-05 19:11 | Internal Med Progress Note ---
Subjective Date of Service: Mar 05, 2017 Physician Name Zeb Fuentes Attending Physician Jun Cedillo MD Current Medications Medications (Trade) Dose Ordered Sig/Wilner Route PRN Reason Start Time Stop Time Status Last Admin Dose Admin Acetaminophen (Tylenol) 650 mg Q4H PRN ORAL FEVER 02/25/17 15:15 03/27/17 15:14 02/26/17 16:37 Allopurinol (Zyloprim) 100 mg DAILY ORAL 03/02/17 09:00 04/01/17 08:59 03/05/17 09:10 Amlodipine Besylate (Norvasc) 10 mg DAILY ORAL 03/04/17 12:00 04/03/17 11:59 03/05/17 09:09 Aspirin (Ecotrin) 81 mg DAILY ORAL 02/26/17 09:00 03/19/17 08:59 03/05/17 09:09 Bisacodyl (Dulcolax) 10 mg DAILYPRN PRN RECTAL Constipation Third Line Agent 02/25/17 15:15 03/27/17 15:14 Carvedilol (Coreg) 25 mg Q12HR ORAL 03/05/17 21:00 04/04/17 20:59 Clonazepam (KlonoPIN) 1 mg DAILY ORAL 03/01/17 09:00 03/08/17 08:59 03/05/17 09:10 Dextrose (Dextrose 50%) STAT PRN IV Hypoglycemia 02/25/17 15:15 03/17/17 15:14 Escitalopram Oxalate (Lexapro) 10 mg DAILY ORAL 02/26/17 09:00 03/20/17 08:59 03/05/17 09:09 Haloperidol Lactate (Haldol) 2 mg Q4H PRN IM Agitation 02/25/17 15:15 03/27/17 15:14 02/25/17 22:38 Hydralazine HCl (Apresoline) 10 mg Q6HR NG 03/05/17 12:00 04/04/17 11:59 03/05/17 17:20 Hydralazine HCl (Apresoline) 25 mg Q4H PRN ORAL SBP > 160mmHg 02/25/17 15:15 03/27/17 15:14 03/04/17 08:30 Lidocaine (Xylocaine 1% MPF 5ml) 10 ml Q4H PRN HHN cough 02/25/17 15:15 03/19/17 15:14 Lisinopril (Prinivil) 20 mg BID ORAL 02/25/17 18:00 03/27/17 17:59 03/05/17 17:20 Metoclopramide HCl (Reglan) 5 mg Q8HR IVP 03/04/17 22:00 04/03/17 21:59 03/05/17 14:37 Midazolam HCl 100 ml @ 0 mls/hr Q24H IVPB 03/01/17 04:00 03/08/17 03:59 03/03/17 10:29 Morphine Sulfate (Morphine Sulfate) 4 mg Q4H PRN IVP Breakthrough Pain 02/26/17 11:00 03/07/17 10:59 02/27/17 01:01 Ondansetron HCl (Zofran) 4 mg Q6H PRN IVP Nausea & Vomiting 02/25/17 15:15 03/17/17 15:14 Pantoprazole (Protonix) 40 mg DAILY IV 02/27/17 09:00 03/29/17 08:59 03/05/17 09:10 Polyethylene Glycol (Miralax) 17 gm DAILYPRN PRN ORAL Constipation First line agent 02/25/17 15:15 03/17/17 15:14 Pravastatin Sodium (Pravachol) 20 mg BEDTIME ORAL 02/25/17 21:00 03/18/17 20:59 03/04/17 20:55 Prednisone (predniSONE) 40 mg DAILY ORAL 02/26/17 09:00 03/28/17 08:59 03/05/17 09:10 Pregabalin (Lyrica) 150 mg THREE TIMES A DAY ORAL 02/25/17 18:00 03/18/17 12:59 03/05/17 17:20 Promethazine HCl/ Codeine (Phenergan with Codeine) 5 ml Q4H PRN ORAL UNRELIEVED COUGH 02/25/17 15:15 03/18/17 15:14 Ranitidine HCl (Zantac) 150 mg QPM ORAL 02/25/17 16:30 03/27/17 16:29 03/05/17 17:19 Allergies: Coded Allergies: TETRACYCLINE (Unverified Allergy, Unknown, 07/24/14) Subjective 76 YO F admitted with shortness of breath. Now pneumonia. Cover for Int Daniel- Dr Cedillo. ICU. CT chest=occlusion left mainstem bronchus-Intubated 02/25/17. Failed weaning protocol Objective Last Vital Signs Date Time Temp Pulse Resp B/P (MAP) Pulse Ox O2 Delivery O2 Flow Rate FiO2 03/05/17 19:00 80 19 101/45 95 Mechanical Ventilator 30 03/05/17 18:19 98.2 02/26/17 06:45 15.0 Laboratory Tests Test 03/05/17 04:00 03/05/17 04:35 Arterial Blood pH 7.482 (7.350-7.450) Arterial Blood Partial Pressure CO2 46.1 mmHg (35.0-45.0) H Arterial Blood Partial Pressure O2 72.4 mmHg (75.0-100.0) L Arterial Blood HCO3 33.7 mmol/L (22.0-26.0) H Arterial Blood Oxygen Saturation 93.7 % (92.0-98.0) Arterial Blood Base Excess 9.2 Scooby Test Positive White Blood Count 9.9 K/UL (4.8-10.8) Red Blood Count 2.86 M/UL (4.20-5.40) L Hemoglobin 9.2 G/DL (12.0-16.0) L Hematocrit 28.9 % (37.0-47.0) L Mean Corpuscular Volume 101 FL (80-99) H Mean Corpuscular Hemoglobin 32.2 PG (27.0-31.0) H Mean Corpuscular Hemoglobin Concent 31.8 G/DL (32.0-36.0) L Red Cell Distribution Width 12.1 % (11.6-14.8) Platelet Count 249 K/UL (150-450) Mean Platelet Volume 8.4 FL (6.5-10.1) Neutrophils (%) (Auto) 64.2 % (45.0-75.0) Lymphocytes (%) (Auto) 27.3 % (20.0-45.0) Monocytes (%) (Auto) 7.8 % (1.0-10.0) Eosinophils (%) (Auto) 0.4 % (0.0-3.0) Basophils (%) (Auto) 0.3 % (0.0-2.0) Sodium Level 148 MMOL/L (136-145) H Potassium Level 4.3 MMOL/L (3.5-5.1) Chloride Level 111 MMOL/L (98-107) H Carbon Dioxide Level 31 MMOL/L (21-32) Anion Gap 6 mmol/L (5-15) Blood Urea Nitrogen 39 mg/dL (7-18) H Creatinine 0.7 MG/DL (0.55-1.30) Estimat Glomerular Filtration Rate mL/min (>60) Glucose Level 121 MG/DL (74-106) H Calcium Level 9.8 MG/DL (8.5-10.1) Phosphorus Level 2.5 MG/DL (2.5-4.9) Magnesium Level 2.5 MG/DL (1.8-2.4) H Total Bilirubin 0.4 MG/DL (0.2-1.0) Aspartate Amino Transf (AST/SGOT) 14 U/L (15-37) L Alanine Aminotransferase (ALT/SGPT) 14 U/L (12-78) Alkaline Phosphatase 49 U/L (46-116) Total Protein 6.5 G/DL (6.4-8.2) Albumin 2.6 G/DL (3.4-5.0) L Globulin 3.9 g/dL Albumin/Globulin Ratio 0.7 (1.0-2.7) L Intake and Output 03/05/17 03/06/17 19:00 07:00 Intake Total 690 ml Output Total 1060 ml Balance -370 ml Tube Feeding 540 ml Other 150 ml Output Urine Total 1060 ml # Bowel Movements 1 Objective General Appearance: WD/WN, no apparent distress, alert EENT: PERRL/EOMI, normal ENT inspection, TMs normal Neck: non-tender, normal alignment, supple, normal inspection Cardiovascular: normal peripheral pulses, normal rate, regular rhythm, no gallop/murmur, no JVD Respiratory/Chest: Mech Vent; chest wall non-tender, respiratory distress, decreased breath sounds, crackles/rales, rhonchi - bilaterally, expiratory wheezing Abdomen: normal bowel sounds, non tender, soft, no organomegaly, no mass Extremities: normal range of motion Neurologic: senior insight manager II-XII 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 (8) Pneumonia Assessment & Plan: Continue Meropenem and vanco. See ID and pulmonary notes. (9) COPD exacerbation Assessment & Plan: Continue IV solumedrol and xopenex/atrovent nebs. See pulmonary note. (10) Diastolic CHF Assessment & Plan: See cardiology note. 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 S/P intubation to aerate left lung-see pulmonary note. D/W pulmonary Dr Hernandez (14) Respiratory failure requiring intubation Assessment & Plan: Failed weaning; Weaning trial tomorrow-see pulm note Status: not improved ZEB FUENTES Mar 05, 2017 19:11
--- NOTE | 2017-03-05 19:48 | Cardiology Progress Note ---
Assessment/Plan Assessment/Plan 1. Respiratory failure. 2. Chronic obstructive pulmonary disease exacerbation. 3. Questionable pneumonia. 4. History of mitral regurgitation of significant degree. 5. History of subdural hematomas and intracranial hemorrhage. 6. History of breast cancer. 7. Anemia. 8. History of Clostridium difficile colitis. 9. History of anxiety. 10. Sinus tachycardia secondary to above. 11. Htn 12. CHF acute diastolic 13. l m bronchus occlusion with debris 14. lung collapase 15 Hypotension resolved 16. alkalosis vent support remains in icu intubated labs reviewed bp ok today tele sinus wean as feesible na increased Subjective ROS Limited/Unobtainable: Yes Subjective on vent Objective Last 24 Hour Vital Signs Date Time Temp Pulse Resp B/P (MAP) Pulse Ox O2 Delivery O2 Flow Rate FiO2 03/05/17 19:15 77 16 30 03/05/17 19:00 80 19 101/45 95 Mechanical Ventilator 30 03/05/17 18:19 98.2 03/05/17 18:00 88 19 96/44 95 Mechanical Ventilator 30 03/05/17 17:54 30 03/05/17 17:52 103 28 30 03/05/17 17:20 175/71 03/05/17 17:20 175/71 03/05/17 17:18 82 32 30 03/05/17 17:00 80 20 175/71 94 Mechanical Ventilator 30 03/05/17 16:00 98.2 87 21 156/70 94 Mechanical Ventilator 30 03/05/17 16:00 30 03/05/17 16:00 86 03/05/17 15:21 88 30 30 03/05/17 15:00 80 20 158/70 94 Mechanical Ventilator 30 03/05/17 14:00 82 20 162/62 94 Mechanical Ventilator 30 03/05/17 13:17 85 24 30 03/05/17 13:00 87 21 156/74 94 Mechanical Ventilator 30 03/05/17 12:40 175/74 03/05/17 12:00 98.4 78 20 163/65 99 Mechanical Ventilator 30 03/05/17 12:00 30 03/05/17 12:00 77 03/05/17 11:00 82 21 174/72 94 Mechanical Ventilator 30 03/05/17 10:48 82 32 30 03/05/17 10:00 83 23 163/82 94 Mechanical Ventilator 30 03/05/17 09:09 85 180/89 03/05/17 09:09 180/89 03/05/17 09:08 80 180/89 03/05/17 09:00 88 23 180/89 94 Mechanical Ventilator 30 03/05/17 08:53 73 14 30 03/05/17 08:52 95 03/05/17 08:00 80 03/05/17 08:00 99.0 77 19 171/80 99 Mechanical Ventilator 30 03/05/17 07:48 30 03/05/17 07:14 82 23 30 03/05/17 07:00 80 23 173/69 94 Mechanical Ventilator 30 03/05/17 06:00 74 17 160/65 95 Mechanical Ventilator 30 03/05/17 05:09 80 24 30 03/05/17 05:00 74 20 156/65 95 Mechanical Ventilator 30 03/05/17 04:00 30 03/05/17 04:00 77 03/05/17 04:00 98.1 79 20 167/70 99 Mechanical Ventilator 30 03/05/17 03:35 17 03/05/17 03:20 76 17 30 03/05/17 03:00 76 17 144/61 100 Mechanical Ventilator 30 03/05/17 02:00 74 16 151/63 100 Mechanical Ventilator 30 03/05/17 01:10 71 14 30 03/05/17 01:00 71 14 123/55 100 Mechanical Ventilator 30 03/05/17 00:00 30 03/05/17 00:00 98.0 71 14 120/55 100 Mechanical Ventilator 30 03/04/17 23:00 30 03/04/17 23:00 73 12 100/50 100 Mechanical Ventilator 30 03/04/17 22:35 83 17 30 03/04/17 22:00 78 14 104/51 100 Mechanical Ventilator 35 03/04/17 21:00 88 21 105/92 100 Mechanical Ventilator 35 03/04/17 20:56 79 21 35 03/04/17 20:55 79 142/61 03/04/17 20:00 82 03/04/17 20:00 98.4 82 18 142/61 98 Mechanical Ventilator 35 General Appearance: no apparent distress, on vent, patient on isolation Intake and Output 03/05/17 03/06/17 19:00 07:00 Intake Total 690 ml Output Total 1060 ml Balance -370 ml Tube Feeding 540 ml Other 150 ml Output Urine Total 1060 ml # Bowel Movements 1 Laboratory Tests Test 03/05/17 04:00 03/05/17 04:35 Arterial Blood pH 7.482 (7.350-7.450) Arterial Blood Partial Pressure CO2 46.1 mmHg (35.0-45.0) H Arterial Blood Partial Pressure O2 72.4 mmHg (75.0-100.0) L Arterial Blood HCO3 33.7 mmol/L (22.0-26.0) H Arterial Blood Oxygen Saturation 93.7 % (92.0-98.0) Arterial Blood Base Excess 9.2 Scooby Test Positive White Blood Count 9.9 K/UL (4.8-10.8) Red Blood Count 2.86 M/UL (4.20-5.40) L Hemoglobin 9.2 G/DL (12.0-16.0) L Hematocrit 28.9 % (37.0-47.0) L Mean Corpuscular Volume 101 FL (80-99) H Mean Corpuscular Hemoglobin 32.2 PG (27.0-31.0) H Mean Corpuscular Hemoglobin Concent 31.8 G/DL (32.0-36.0) L Red Cell Distribution Width 12.1 % (11.6-14.8) Platelet Count 249 K/UL (150-450) Mean Platelet Volume 8.4 FL (6.5-10.1) Neutrophils (%) (Auto) 64.2 % (45.0-75.0) Lymphocytes (%) (Auto) 27.3 % (20.0-45.0) Monocytes (%) (Auto) 7.8 % (1.0-10.0) Eosinophils (%) (Auto) 0.4 % (0.0-3.0) Basophils (%) (Auto) 0.3 % (0.0-2.0) Sodium Level 148 MMOL/L (136-145) H Potassium Level 4.3 MMOL/L (3.5-5.1) Chloride Level 111 MMOL/L (98-107) H Carbon Dioxide Level 31 MMOL/L (21-32) Anion Gap 6 mmol/L (5-15) Blood Urea Nitrogen 39 mg/dL (7-18) H Creatinine 0.7 MG/DL (0.55-1.30) Estimat Glomerular Filtration Rate mL/min (>60) Glucose Level 121 MG/DL (74-106) H Calcium Level 9.8 MG/DL (8.5-10.1) Phosphorus Level 2.5 MG/DL (2.5-4.9) Magnesium Level 2.5 MG/DL (1.8-2.4) H Total Bilirubin 0.4 MG/DL (0.2-1.0) Aspartate Amino Transf (AST/SGOT) 14 U/L (15-37) L Alanine Aminotransferase (ALT/SGPT) 14 U/L (12-78) Alkaline Phosphatase 49 U/L (46-116) Total Protein 6.5 G/DL (6.4-8.2) Albumin 2.6 G/DL (3.4-5.0) L Globulin 3.9 g/dL Albumin/Globulin Ratio 0.7 (1.0-2.7) L JEFFERSON ROMEO Mar 05, 2017 19:48
[2017-03-05] MEDS: Carvedilol 25mg Tab ORAL SCH (20:38)
--- NOTE | 2017-03-05 21:58 | Geriatric Progress Note ---
Assessment/Plan Discussed with: patient Subjective Mood/Memory: Reports: prior hx, anxiety, depressed feelings Geriatric Geriatric Last 24 Hour Vital Signs Date Time Temp Pulse Resp B/P (MAP) Pulse Ox O2 Delivery O2 Flow Rate FiO2 03/05/17 20:38 84 16 30 03/05/17 20:38 72 102/47 03/05/17 19:15 77 16 30 03/05/17 19:00 80 19 101/45 95 Mechanical Ventilator 30 03/05/17 18:19 98.2 03/05/17 18:00 88 19 96/44 95 Mechanical Ventilator 30 03/05/17 17:54 30 03/05/17 17:52 103 28 30 03/05/17 17:20 175/71 03/05/17 17:20 175/71 03/05/17 17:18 82 32 30 03/05/17 17:00 80 20 175/71 94 Mechanical Ventilator 30 03/05/17 16:00 98.2 87 21 156/70 94 Mechanical Ventilator 30 03/05/17 16:00 30 03/05/17 16:00 86 03/05/17 15:21 88 30 30 03/05/17 15:00 80 20 158/70 94 Mechanical Ventilator 30 03/05/17 14:00 82 20 162/62 94 Mechanical Ventilator 30 03/05/17 13:17 85 24 30 03/05/17 13:00 87 21 156/74 94 Mechanical Ventilator 30 03/05/17 12:40 175/74 03/05/17 12:00 98.4 78 20 163/65 99 Mechanical Ventilator 30 03/05/17 12:00 30 03/05/17 12:00 77 03/05/17 11:00 82 21 174/72 94 Mechanical Ventilator 30 03/05/17 10:48 82 32 30 03/05/17 10:00 83 23 163/82 94 Mechanical Ventilator 30 03/05/17 09:09 85 180/89 03/05/17 09:09 180/89 03/05/17 09:08 80 180/89 03/05/17 09:00 88 23 180/89 94 Mechanical Ventilator 30 03/05/17 08:53 73 14 30 03/05/17 08:52 95 03/05/17 08:00 80 03/05/17 08:00 99.0 77 19 171/80 99 Mechanical Ventilator 30 03/05/17 07:48 30 03/05/17 07:14 82 23 30 03/05/17 07:00 80 23 173/69 94 Mechanical Ventilator 30 03/05/17 06:00 74 17 160/65 95 Mechanical Ventilator 30 03/05/17 05:09 80 24 30 03/05/17 05:00 74 20 156/65 95 Mechanical Ventilator 30 03/05/17 04:00 30 03/05/17 04:00 77 03/05/17 04:00 98.1 79 20 167/70 99 Mechanical Ventilator 30 03/05/17 03:35 17 03/05/17 03:20 76 17 30 03/05/17 03:00 76 17 144/61 100 Mechanical Ventilator 30 03/05/17 02:00 74 16 151/63 100 Mechanical Ventilator 30 03/05/17 01:10 71 14 30 03/05/17 01:00 71 14 123/55 100 Mechanical Ventilator 30 03/05/17 00:00 30 03/05/17 00:00 98.0 71 14 120/55 100 Mechanical Ventilator 30 03/04/17 23:00 30 03/04/17 23:00 73 12 100/50 100 Mechanical Ventilator 30 03/04/17 22:35 83 17 30 03/04/17 22:00 78 14 104/51 100 Mechanical Ventilator 35 Intake and Output 03/05/17 03/06/17 19:00 07:00 Intake Total 690 ml Output Total 1060 ml Balance -370 ml Tube Feeding 540 ml Other 150 ml Output Urine Total 1060 ml # Bowel Movements 1 Laboratory Tests Test 03/05/17 04:00 03/05/17 04:35 Arterial Blood pH 7.482 (7.350-7.450) Arterial Blood Partial Pressure CO2 46.1 mmHg (35.0-45.0) H Arterial Blood Partial Pressure O2 72.4 mmHg (75.0-100.0) L Arterial Blood HCO3 33.7 mmol/L (22.0-26.0) H Arterial Blood Oxygen Saturation 93.7 % (92.0-98.0) Arterial Blood Base Excess 9.2 Scooby Test Positive White Blood Count 9.9 K/UL (4.8-10.8) Red Blood Count 2.86 M/UL (4.20-5.40) L Hemoglobin 9.2 G/DL (12.0-16.0) L Hematocrit 28.9 % (37.0-47.0) L Mean Corpuscular Volume 101 FL (80-99) H Mean Corpuscular Hemoglobin 32.2 PG (27.0-31.0) H Mean Corpuscular Hemoglobin Concent 31.8 G/DL (32.0-36.0) L Red Cell Distribution Width 12.1 % (11.6-14.8) Platelet Count 249 K/UL (150-450) Mean Platelet Volume 8.4 FL (6.5-10.1) Neutrophils (%) (Auto) 64.2 % (45.0-75.0) Lymphocytes (%) (Auto) 27.3 % (20.0-45.0) Monocytes (%) (Auto) 7.8 % (1.0-10.0) Eosinophils (%) (Auto) 0.4 % (0.0-3.0) Basophils (%) (Auto) 0.3 % (0.0-2.0) Sodium Level 148 MMOL/L (136-145) H Potassium Level 4.3 MMOL/L (3.5-5.1) Chloride Level 111 MMOL/L (98-107) H Carbon Dioxide Level 31 MMOL/L (21-32) Anion Gap 6 mmol/L (5-15) Blood Urea Nitrogen 39 mg/dL (7-18) H Creatinine 0.7 MG/DL (0.55-1.30) Estimat Glomerular Filtration Rate mL/min (>60) Glucose Level 121 MG/DL (74-106) H Calcium Level 9.8 MG/DL (8.5-10.1) Phosphorus Level 2.5 MG/DL (2.5-4.9) Magnesium Level 2.5 MG/DL (1.8-2.4) H Total Bilirubin 0.4 MG/DL (0.2-1.0) Aspartate Amino Transf (AST/SGOT) 14 U/L (15-37) L Alanine Aminotransferase (ALT/SGPT) 14 U/L (12-78) Alkaline Phosphatase 49 U/L (46-116) Total Protein 6.5 G/DL (6.4-8.2) Albumin 2.6 G/DL (3.4-5.0) L Globulin 3.9 g/dL Albumin/Globulin Ratio 0.7 (1.0-2.7) L Current Medications Medications (Trade) Dose Ordered Sig/Wilner Route PRN Reason Start Time Stop Time Status Last Admin Dose Admin Acetaminophen (Tylenol) 650 mg Q4H PRN ORAL FEVER 02/25/17 15:15 03/27/17 15:14 03/05/17 20:38 Allopurinol (Zyloprim) 100 mg DAILY ORAL 03/02/17 09:00 04/01/17 08:59 03/05/17 09:10 Amlodipine Besylate (Norvasc) 10 mg DAILY ORAL 03/04/17 12:00 04/03/17 11:59 03/05/17 09:09 Aspirin (Ecotrin) 81 mg DAILY ORAL 02/26/17 09:00 03/19/17 08:59 03/05/17 09:09 Bisacodyl (Dulcolax) 10 mg DAILYPRN PRN RECTAL Constipation Third Line Agent 02/25/17 15:15 03/27/17 15:14 Carvedilol (Coreg) 25 mg Q12HR ORAL 03/05/17 21:00 04/04/17 20:59 03/05/17 20:38 Clonazepam (KlonoPIN) 1 mg DAILY ORAL 03/01/17 09:00 03/08/17 08:59 03/05/17 09:10 Dextrose (Dextrose 50%) STAT PRN IV Hypoglycemia 02/25/17 15:15 03/17/17 15:14 Escitalopram Oxalate (Lexapro) 10 mg DAILY ORAL 02/26/17 09:00 03/20/17 08:59 03/05/17 09:09 Haloperidol Lactate (Haldol) 2 mg Q4H PRN IM Agitation 02/25/17 15:15 03/27/17 15:14 02/25/17 22:38 Hydralazine HCl (Apresoline) 10 mg Q6HR NG 03/05/17 12:00 04/04/17 11:59 03/05/17 17:20 Hydralazine HCl (Apresoline) 25 mg Q4H PRN ORAL SBP > 160mmHg 02/25/17 15:15 03/27/17 15:14 03/04/17 08:30 Lidocaine (Xylocaine 1% MPF 5ml) 10 ml Q4H PRN HHN cough 02/25/17 15:15 03/19/17 15:14 Lisinopril (Prinivil) 20 mg BID ORAL 02/25/17 18:00 03/27/17 17:59 03/05/17 17:20 Metoclopramide HCl (Reglan) 5 mg Q8HR IVP 03/04/17 22:00 04/03/17 21:59 03/05/17 14:37 Midazolam HCl 100 ml @ 0 mls/hr Q24H IVPB 03/01/17 04:00 03/08/17 03:59 03/03/17 10:29 Morphine Sulfate (Morphine Sulfate) 4 mg Q4H PRN IVP Breakthrough Pain 02/26/17 11:00 03/07/17 10:59 02/27/17 01:01 Ondansetron HCl (Zofran) 4 mg Q6H PRN IVP Nausea & Vomiting 02/25/17 15:15 03/17/17 15:14 Pantoprazole (Protonix) 40 mg DAILY IV 02/27/17 09:00 03/29/17 08:59 03/05/17 09:10 Polyethylene Glycol (Miralax) 17 gm DAILYPRN PRN ORAL Constipation First line agent 02/25/17 15:15 03/17/17 15:14 Pravastatin Sodium (Pravachol) 20 mg BEDTIME ORAL 02/25/17 21:00 03/18/17 20:59 03/05/17 20:38 Prednisone (predniSONE) 40 mg DAILY ORAL 02/26/17 09:00 03/28/17 08:59 03/05/17 09:10 Pregabalin (Lyrica) 150 mg THREE TIMES A DAY ORAL 02/25/17 18:00 03/18/17 12:59 03/05/17 17:20 Promethazine HCl/ Codeine (Phenergan with Codeine) 5 ml Q4H PRN ORAL UNRELIEVED COUGH 02/25/17 15:15 03/18/17 15:14 Ranitidine HCl (Zantac) 150 mg QPM ORAL 02/25/17 16:30 03/27/17 16:29 03/05/17 17:19 Height (Feet): 5 Height (Inches): 7.00 Weight (Pounds): 117 General Appearance: no apparent distress, lethargic Psychiatric Orientation: disoriented Affect: restricted Wan Stern M.D. Mar 05, 2017 21:58
[2017-03-06] VITALS (24 sets, daily range): BP systolic 80–167; BP diastolic 37–82
[2017-03-06] MEDS: HydrALAZINE 10mg Tab NG SCH ×4 (00:31→18:00)
[2017-03-06] MEDS: Midazolam/D5W 100ml 100 ML IVPB SCH (04:00)
[2017-03-06 05:08] LABS: BASOPHILS % (AUTO) 0.2 % (0.0-2.0); EOSINOPHILS % (AUTO) 0.1 % (0.0-3.0); HEMATOCRIT 26.5 % (37.0-47.0); HEMOGLOBIN 8.8 G/DL (12.0-16.0); LYMPHOCYTES % (AUTO) 21.7 % (20.0-45.0); MEAN CORPUSCULAR VOLUME 102 FL (80-99); MONOCYTES % (AUTO) 8.7 % (1.0-10.0); NEUTROPHILS % (AUTO) 69.3 % (45.0-75.0); PLATELET COUNT 222 K/UL (150-450); RED CELL DISTRIBUTION WIDTH 12.1 % (11.6-14.8); WHITE BLOOD COUNT 10.3 K/UL (4.8-10.8)
[2017-03-06 05:29] LABS: ALANINE AMINOTRANSFERASE 15 U/L (12-78); ALBUMIN 2.7 G/DL (3.4-5.0); ALBUMIN/GLOBULIN RATIO 0.8 (1.0-2.7); ALKALINE PHOSPHATASE 47 U/L (46-116); ANION GAP 6 mmol/L (5-15); ASPARTATE AMINO TRANSFERASE 14 U/L (15-37); BILIRUBIN,TOTAL 0.4 MG/DL (0.2-1.0); BLOOD UREA NITROGEN 43 mg/dL (7-18); CALCIUM 9.5 MG/DL (8.5-10.1); CARBON DIOXIDE 32 MMOL/L (21-32); CHLORIDE 110 MMOL/L (98-107); CREATININE 0.8 MG/DL (0.55-1.30); PHOSPHORUS 2.5 MG/DL (2.5-4.9); POTASSIUM 3.9 MMOL/L (3.5-5.1); SODIUM 148 MMOL/L (136-145)
[2017-03-06] MEDS: Metoclopramide 10mg/2ml Inj IVP SCH ×3 (05:41→22:15)
--- NOTE | 2017-03-06 09:12 | Diagnostic Imaging Report ---
Indication: DYSPNEA Technique: One view of the chest Comparison: 1020 1617 Findings: There is suggestion of slightly increased pleural fluid on the left. Hazy opacity in the right lung is stable. Stable satisfactory positions of endotracheal and nasogastric tubes. Impression: Slightly increased left pleural fluid, over one day. Otherwise stable findings as described
--- NOTE | 2017-03-06 09:24 | Infectious Diseases Prog Note ---
Assessment/Plan Assessment/Plan Abx: IV Vanco 02/15-03/01 Cefepime 02/15-02/18 Meropenem 02/18-03/03 Assesment: Low grade fever- r/o new LM, DVT -CXR 03/05: There is suggestion of slightly increased pleural fluid on the left. Hazy opacity in the right lung is stable Acute hypoxic resp failure, - combination of COPD exacerbation and PNA; worsened 02/18; Intubated 02/26 -venous duplex 02/16 no DVT PNA- SGS(-), Cx Neg; s/p Rx - SP bronch 02/26 (collected 02/26, however received on the lab 03/03??): BAL cx NTD -CXR 03/03: Stable bilateral interstitial and alveolar opacities, probable small left pleural effusion, elevation left hemidiaphragm -CXR 03/01: Patchy, mainly interstitial appearing disease noted bilaterally. Findings may be due to infiltrates or CHF - CT Chest 02/24: Near-complete occlusion of the left mainstem bronchus and proximal lobar bronchi, probably by debris. Extensive resultant atelectasis and consolidation of nearly the entire left lung. Less extensive consolidation within the right lung, nonspecific as regards etiology, likely secondary to pneumonia or edema -CXR 02/23: Better inspiration currently. Overall improved aeration of the right mid and lower lung, with decreased dense consolidation and is still fairly extensive parenchymal opacity. The right pleural space is clear. Large left pleural effusion is again demonstrated, and is increased from the prior exam. There is also increasing consolidation of the residual aerated lung in the left upper hemithorax. -CXR: Limited evaluation due to significant degree of soft tissue attenuation. Suspect pneumonia at the right lung base. -Cr Ag serum neg; cocci ab pending L pleural effusion - improved Leukocytosis, mild - recurrent, resolved (on steroids) Fever x1 COPD on home O2 Hx of Cdiff DM2 Chronic abd pain hx of MRSA bacteremia 07/2015 TCA allergy Full Code fibromyalgia, HTN, HLD, R breast cancer,Tobacco abuse (stopped 4 years ago), Anxiety, AOCD Plan: -Repeat infectious w/u : Blood, urine and sp cx; and Venous duplex for DVT given low grade fever -Continue to monitor off abx, unless persistent/higher fever, HD unstable -s/p 14d IV Meropenem 03/03 -s/p 14 d IV Vancomycin 03/01 -s/p 6d prophylactic PO vanco 02/21 -s/p 4 d Cefepime 02/18 -f/u Cocci ab , BAL cx -Monitor CBC/BMP, temperatures -Aspiration precautions - vent support, wean as tolerated Discussed with RN. Subjective Allergies: Coded Allergies: TETRACYCLINE (Unverified Allergy, Unknown, 07/24/14) Subjective low grade fever Tm 100.2 no leukocytosis BAL cx NTD Objective Vital Signs Last 24 Hour Vital Signs Date Time Temp Pulse Resp B/P (MAP) Pulse Ox O2 Delivery O2 Flow Rate FiO2 03/06/17 07:42 100.0 03/06/17 07:18 85 21 30 03/06/17 07:00 100.2 80 17 156/65 94 Mechanical Ventilator 30 03/06/17 06:00 100.2 83 16 158/65 94 Mechanical Ventilator 30 03/06/17 05:41 158/65 03/06/17 05:06 82 23 30 03/06/17 05:00 83 17 158/65 95 Mechanical Ventilator 30 03/06/17 04:00 99.8 81 17 140/55 95 Mechanical Ventilator 30 03/06/17 04:00 78 03/06/17 04:00 30 03/06/17 03:06 78 19 30 03/06/17 03:00 79 17 152/61 96 Mechanical Ventilator 30 03/06/17 02:00 74 16 116/52 96 Mechanical Ventilator 30 03/06/17 01:15 76 16 30 03/06/17 01:00 75 16 106/48 96 Mechanical Ventilator 30 03/06/17 00:31 104/46 03/06/17 00:00 77 03/06/17 00:00 99.7 78 16 142/60 96 Mechanical Ventilator 30 03/06/17 00:00 30 03/05/17 23:06 83 17 30 03/05/17 23:00 99.8 77 16 122/52 96 Mechanical Ventilator 30 03/05/17 22:00 77 17 137/52 96 Mechanical Ventilator 30 03/05/17 21:00 72 16 125/47 97 Mechanical Ventilator 30 03/05/17 20:38 84 16 30 03/05/17 20:38 72 102/47 03/05/17 20:00 30 03/05/17 20:00 100.2 73 19 102/47 96 Mechanical Ventilator 30 03/05/17 20:00 80 03/05/17 19:15 77 16 30 03/05/17 19:00 80 19 101/45 95 Mechanical Ventilator 30 03/05/17 18:19 98.2 03/05/17 18:00 88 19 96/44 95 Mechanical Ventilator 30 03/05/17 17:54 30 03/05/17 17:52 103 28 30 03/05/17 17:20 175/71 03/05/17 17:20 175/71 03/05/17 17:18 82 32 30 03/05/17 17:00 80 20 175/71 94 Mechanical Ventilator 30 03/05/17 16:00 98.2 87 21 156/70 94 Mechanical Ventilator 30 03/05/17 16:00 30 03/05/17 16:00 86 03/05/17 15:21 88 30 30 03/05/17 15:00 80 20 158/70 94 Mechanical Ventilator 30 03/05/17 14:00 82 20 162/62 94 Mechanical Ventilator 30 03/05/17 13:17 85 24 30 03/05/17 13:00 87 21 156/74 94 Mechanical Ventilator 30 03/05/17 12:40 175/74 03/05/17 12:00 98.4 78 20 163/65 99 Mechanical Ventilator 30 03/05/17 12:00 30 03/05/17 12:00 77 03/05/17 11:00 82 21 174/72 94 Mechanical Ventilator 30 03/05/17 10:48 82 32 30 03/05/17 10:00 83 23 163/82 94 Mechanical Ventilator 30 Height (Feet): 5 Height (Inches): 7.00 Weight (Pounds): 117 Objective General Appearance: lethargic but arousable HEENT: PERRL, ETT in place, atraumatic head Neck: supple Respiratory: scattered wheezing Cardiovascular: regular rate, rhythmm, no murmurs Gastrointestinal: normal inspection, non tender, no mass, non-distended Musculoskeletal: L>R arm swelling and erythema Skin: no lesions or rashes Laboratory Tests Test 03/06/17 03:35 03/06/17 08:10 White Blood Count 10.3 K/UL (4.8-10.8) Red Blood Count 2.60 M/UL (4.20-5.40) L Hemoglobin 8.8 G/DL (12.0-16.0) L Hematocrit 26.5 % (37.0-47.0) L Mean Corpuscular Volume 102 FL (80-99) H Mean Corpuscular Hemoglobin 33.7 PG (27.0-31.0) H Mean Corpuscular Hemoglobin Concent 33.1 G/DL (32.0-36.0) Red Cell Distribution Width 12.1 % (11.6-14.8) Platelet Count 222 K/UL (150-450) Mean Platelet Volume 8.3 FL (6.5-10.1) Neutrophils (%) (Auto) 69.3 % (45.0-75.0) Lymphocytes (%) (Auto) 21.7 % (20.0-45.0) Monocytes (%) (Auto) 8.7 % (1.0-10.0) Eosinophils (%) (Auto) 0.1 % (0.0-3.0) Basophils (%) (Auto) 0.2 % (0.0-2.0) Sodium Level 148 MMOL/L (136-145) H Potassium Level 3.9 MMOL/L (3.5-5.1) Chloride Level 110 MMOL/L (98-107) H Carbon Dioxide Level 32 MMOL/L (21-32) Anion Gap 6 mmol/L (5-15) Blood Urea Nitrogen 43 mg/dL (7-18) H Creatinine 0.8 MG/DL (0.55-1.30) Estimat Glomerular Filtration Rate mL/min (>60) Glucose Level 137 MG/DL (74-106) H Calcium Level 9.5 MG/DL (8.5-10.1) Phosphorus Level 2.5 MG/DL (2.5-4.9) Magnesium Level 2.4 MG/DL (1.8-2.4) Total Bilirubin 0.4 MG/DL (0.2-1.0) Aspartate Amino Transf (AST/SGOT) 14 U/L (15-37) L Alanine Aminotransferase (ALT/SGPT) 15 U/L (12-78) Alkaline Phosphatase 47 U/L (46-116) Total Protein 6.3 G/DL (6.4-8.2) L Albumin 2.7 G/DL (3.4-5.0) L Globulin 3.6 g/dL Albumin/Globulin Ratio 0.8 (1.0-2.7) L Arterial Blood pH 7.510 (7.350-7.450) Arterial Blood Partial Pressure CO2 38.3 mmHg (35.0-45.0) Arterial Blood Partial Pressure O2 93.3 mmHg (75.0-100.0) Arterial Blood HCO3 30.2 mmol/L (22.0-26.0) H Arterial Blood Oxygen Saturation 96.9 % (92.0-98.0) Arterial Blood Base Excess 6.8 Scooby Test Positive Current Medications Medications (Trade) Dose Ordered Sig/Wilner Route PRN Reason Start Time Stop Time Status Last Admin Dose Admin Acetaminophen (Tylenol) 650 mg Q4H PRN ORAL FEVER 02/25/17 15:15 03/27/17 15:14 03/06/17 06:43 Allopurinol (Zyloprim) 100 mg DAILY ORAL 03/02/17 09:00 04/01/17 08:59 03/05/17 09:10 Amlodipine Besylate (Norvasc) 10 mg DAILY ORAL 03/04/17 12:00 04/03/17 11:59 03/05/17 09:09 Aspirin (Ecotrin) 81 mg DAILY ORAL 02/26/17 09:00 03/19/17 08:59 03/05/17 09:09 Bisacodyl (Dulcolax) 10 mg DAILYPRN PRN RECTAL Constipation Third Line Agent 02/25/17 15:15 03/27/17 15:14 Carvedilol (Coreg) 25 mg Q12HR ORAL 03/05/17 21:00 04/04/17 20:59 03/05/17 20:38 Clonazepam (KlonoPIN) 1 mg DAILY ORAL 03/01/17 09:00 03/08/17 08:59 03/05/17 09:10 Dextrose (Dextrose 50%) STAT PRN IV Hypoglycemia 02/25/17 15:15 03/17/17 15:14 Escitalopram Oxalate (Lexapro) 10 mg DAILY ORAL 02/26/17 09:00 03/20/17 08:59 03/05/17 09:09 Haloperidol Lactate (Haldol) 2 mg Q4H PRN IM Agitation 02/25/17 15:15 03/27/17 15:14 02/25/17 22:38 Hydralazine HCl (Apresoline) 10 mg Q6HR NG 03/05/17 12:00 04/04/17 11:59 03/06/17 05:41 Hydralazine HCl (Apresoline) 25 mg Q4H PRN ORAL SBP > 160mmHg 02/25/17 15:15 03/27/17 15:14 03/04/17 08:30 Lidocaine (Xylocaine 1% MPF 5ml) 10 ml Q4H PRN HHN cough 02/25/17 15:15 03/19/17 15:14 Lisinopril (Prinivil) 20 mg BID ORAL 02/25/17 18:00 03/27/17 17:59 03/05/17 17:20 Metoclopramide HCl (Reglan) 5 mg Q8HR IVP 03/04/17 22:00 04/03/17 21:59 03/06/17 05:41 Midazolam HCl 100 ml @ 0 mls/hr Q24H IVPB 03/01/17 04:00 03/08/17 03:59 03/03/17 10:29 Morphine Sulfate (Morphine Sulfate) 4 mg Q4H PRN IVP Breakthrough Pain 02/26/17 11:00 03/07/17 10:59 02/27/17 01:01 Ondansetron HCl (Zofran) 4 mg Q6H PRN IVP Nausea & Vomiting 02/25/17 15:15 03/17/17 15:14 Pantoprazole (Protonix) 40 mg DAILY IV 02/27/17 09:00 03/29/17 08:59 03/05/17 09:10 Polyethylene Glycol (Miralax) 17 gm DAILYPRN PRN ORAL Constipation First line agent 02/25/17 15:15 03/17/17 15:14 Pravastatin Sodium (Pravachol) 20 mg BEDTIME ORAL 02/25/17 21:00 03/18/17 20:59 03/05/17 20:38 Prednisone (predniSONE) 40 mg DAILY ORAL 02/26/17 09:00 03/28/17 08:59 03/05/17 09:10 Pregabalin (Lyrica) 150 mg THREE TIMES A DAY ORAL 02/25/17 18:00 03/18/17 12:59 10/26/17 17:20 Promethazine HCl/ Codeine (Phenergan with Codeine) 5 ml Q4H PRN ORAL UNRELIEVED COUGH 02/25/17 15:15 03/18/17 15:14 Ranitidine HCl (Zantac) 150 mg QPM ORAL 02/25/17 16:30 03/27/17 16:29 03/05/17 17:19 Alyse Traylor M.D. Mar 06, 2017 09:24
[2017-03-06] MEDS: Pantoprazole Inj IV SCH (09:47)
[2017-03-06] MEDS: Carvedilol 25mg Tab ORAL SCH ×2 (09:48→21:15)
[2017-03-06] MEDS: Lisinopril 20mg tab ORAL SCH ×2 (09:48→18:00)
[2017-03-06] MEDS: Aspirin EC 81mg tab ORAL SCH (09:48)
[2017-03-06] MEDS: Allopurinol 100mg Tab ORAL SCH (09:49)
[2017-03-06] MEDS: Lyrica 75mg cap ORAL SCH ×3 (09:50→18:20)
--- NOTE | 2017-03-06 10:45 | General Progress Note ---
Assessment/Plan Status: stable Assessment/Plan Status: Acute renal failure- etiology? 1900 cc urine out after insertion of shi--JOSE MIGUEL: Moderate right hydronephrosis. Acute on Chronic respiratory failure- day 2 intubation HTN High Cholestrol Pneumonia COPD , exac. Diastolic CHF, Mod MR h/o C dif colitis h/o Breast Ca Anemia Pulm HTN Moderate Plan: main issue: WEANING adjust BP meds K and Phos supplement as needed pulm support Allopurinol continue Shi- Avoid nephrotoxics JOSE MIGUEL: Moderate right hydronephrosis. Subjective ROS Limited/Unobtainable: Yes Allergies: Coded Allergies: TETRACYCLINE (Unverified Allergy, Unknown, 07/24/14) Objective Last 24 Hour Vital Signs Date Time Temp Pulse Resp B/P (MAP) Pulse Ox O2 Delivery O2 Flow Rate FiO2 03/06/17 09:48 79 138/52 03/06/17 09:48 78 138/52 03/06/17 09:48 138/52 03/06/17 09:46 99.8 03/06/17 09:33 30 03/06/17 09:24 94 03/06/17 09:20 72 16 30 03/06/17 08:23 83 03/06/17 08:00 30 03/06/17 08:00 100.0 85 18 157/65 96 Mechanical Ventilator 30 03/06/17 07:42 100.0 03/06/17 07:18 85 21 30 03/06/17 07:00 100.2 80 17 156/65 94 Mechanical Ventilator 30 03/06/17 06:00 100.2 83 16 158/65 94 Mechanical Ventilator 30 03/06/17 05:41 158/65 03/06/17 05:06 82 23 30 03/06/17 05:00 83 17 158/65 95 Mechanical Ventilator 30 03/06/17 04:00 99.8 81 17 140/55 95 Mechanical Ventilator 30 03/06/17 04:00 78 03/06/17 04:00 30 03/06/17 03:06 78 19 30 03/06/17 03:00 79 17 152/61 96 Mechanical Ventilator 30 03/06/17 02:00 74 16 116/52 96 Mechanical Ventilator 30 03/06/17 01:15 76 16 30 03/06/17 01:00 75 16 106/48 96 Mechanical Ventilator 30 03/06/17 00:31 104/46 03/06/17 00:00 77 03/06/17 00:00 99.7 78 16 142/60 96 Mechanical Ventilator 30 03/06/17 00:00 30 03/05/17 23:06 83 17 30 03/05/17 23:00 99.8 77 16 122/52 96 Mechanical Ventilator 30 03/05/17 22:00 77 17 137/52 96 Mechanical Ventilator 30 03/05/17 21:00 72 16 125/47 97 Mechanical Ventilator 30 03/05/17 20:38 84 16 30 03/05/17 20:38 72 102/47 03/05/17 20:00 30 03/05/17 20:00 100.2 73 19 102/47 96 Mechanical Ventilator 30 03/05/17 20:00 80 03/05/17 19:15 77 16 30 03/05/17 19:00 80 19 101/45 95 Mechanical Ventilator 30 03/05/17 18:19 98.2 03/05/17 18:00 88 19 96/44 95 Mechanical Ventilator 30 03/05/17 17:54 30 03/05/17 17:52 103 28 30 03/05/17 17:20 175/71 03/05/17 17:20 175/71 03/05/17 17:18 82 32 30 03/05/17 17:00 80 20 175/71 94 Mechanical Ventilator 30 03/05/17 16:00 98.2 87 21 156/70 94 Mechanical Ventilator 30 03/05/17 16:00 30 03/05/17 16:00 86 03/05/17 15:21 88 30 30 03/05/17 15:00 80 20 158/70 94 Mechanical Ventilator 30 03/05/17 14:00 82 20 162/62 94 Mechanical Ventilator 30 03/05/17 13:17 85 24 30 03/05/17 13:00 87 21 156/74 94 Mechanical Ventilator 30 03/05/17 12:40 175/74 03/05/17 12:00 98.4 78 20 163/65 99 Mechanical Ventilator 30 03/05/17 12:00 30 03/05/17 12:00 77 03/05/17 11:00 82 21 174/72 94 Mechanical Ventilator 30 03/05/17 10:48 82 32 30 Intake and Output 03/06/17 03/07/17 19:00 07:00 Intake Total 50 ml Output Total 225 ml Balance -175 ml Other 50 ml Output Urine Total 225 ml Laboratory Tests 03/06/17 03:35: White Blood Count 10.3, Red Blood Count 2.60L, Hemoglobin 8.8L, Hematocrit 26.5L , Mean Corpuscular Volume 102H, Mean Corpuscular Hemoglobin 33.7H, Mean Corpuscular Hemoglobin Concent 33.1, Red Cell Distribution Width 12.1, Platelet Count 222, Mean Platelet Volume 8.3, Neutrophils (%) (Auto) 69.3, Lymphocytes (% ) (Auto) 21.7, Monocytes (%) (Auto) 8.7, Eosinophils (%) (Auto) 0.1, Basophils ( %) (Auto) 0.2, Sodium Level 148H, Potassium Level 3.9, Chloride Level 110H, Carbon Dioxide Level 32, Anion Gap 6, Blood Urea Nitrogen 43H, Creatinine 0.8, Estimat Glomerular Filtration Rate , Glucose Level 137H, Calcium Level 9.5, Phosphorus Level 2.5, Magnesium Level 2.4, Total Bilirubin 0.4, Aspartate Amino Transf (AST/SGOT) 14L, Alanine Aminotransferase (ALT/SGPT) 15, Alkaline Phosphatase 47, Total Protein 6.3L, Albumin 2.7L, Globulin 3.6, Albumin/ Globulin Ratio 0.8L 03/06/17 08:10: Arterial Blood pH 7.510H, Arterial Blood Partial Pressure CO2 38.3, Arterial Blood Partial Pressure O2 93.3, Arterial Blood HCO3 30.2H, Arterial Blood Oxygen Saturation 96.9, Arterial Blood Base Excess 6.8, Scooby Test Positive Height (Feet): 5 Height (Inches): 7.00 Weight (Pounds): 117 General Appearance: no apparent distress Respiratory/Chest: decreased breath sounds Abdomen: soft Objective no edema- no change in PE GENARO DUARTE Mar 06, 2017 10:45
[2017-03-06 11:14] LABS: APPEARANCE,URINE CLOUDY; BILIRUBIN, URINE NEGATIVE (NEGATIVE); COLOR,URINE PALE YELLOW; GLUCOSE, URINE (UA) NEGATIVE (NEGATIVE); KETONES,URINE NEGATIVE (NEGATIVE); LEUKOCYTE ESTERASE ,URINE 3+ (NEGATIVE); NITRITE,URINE NEGATIVE (NEGATIVE); PH,URINE 8 (4.5-8.0); PROTEIN,URINE 2+ (NEGATIVE); UROBILINOGEN,URINE NORMAL MG/DL (0.0-1.0)
--- NOTE | 2017-03-06 12:59 | Pulmonolgy Critical Care Note ---
Critical Care - Asmt/Plan Problems: (1) Acute and chronic respiratory failure ([id number]) (2) COPD (chronic obstructive pulmonary disease) (3) Right middle lobe pneumonia (4) Collapse of left lung Respiratory: monitor respiratory rate Cardiac: continue to monitor HR/BP Renal: F/U I&O, keep IV fluid Infectious Disease: check cultures Gastrointestinal: continue feedings/current rate Endocrine: monitor blood sugar, check TSH, continue sliding scale insulin Hematologic: monitor H/H, transfuse if hgb<8.5 Neurologic: PRN Ativan, PRN Morphine, keep patient comfortable Affect: PRN ativan Prophylaxis: Protonix Notes Reviewed: assisted living home director, cardio, renal Discussed with: nurses, consultants Critical Care - Objective Last 24 Hour Vital Signs Date Time Temp Pulse Resp B/P (MAP) Pulse Ox O2 Delivery O2 Flow Rate FiO2 03/06/17 12:43 66 20 30 03/06/17 12:26 125/48 03/06/17 11:04 75 18 30 03/06/17 11:00 30 03/06/17 11:00 67 21 123/57 96 Mechanical Ventilator 30 03/06/17 10:00 77 19 167/65 96 Mechanical Ventilator 30 03/06/17 09:48 79 138/52 03/06/17 09:48 78 138/52 03/06/17 09:48 138/52 03/06/17 09:46 99.8 03/06/17 09:33 30 03/06/17 09:24 94 03/06/17 09:20 72 16 30 03/06/17 09:00 72 16 118/49 96 Mechanical Ventilator 30 03/06/17 08:23 83 03/06/17 08:00 30 03/06/17 08:00 100.0 85 18 157/65 96 Mechanical Ventilator 30 03/06/17 07:42 100.0 03/06/17 07:18 85 21 30 03/06/17 07:00 100.2 80 17 156/65 94 Mechanical Ventilator 30 03/06/17 06:00 100.2 83 16 158/65 94 Mechanical Ventilator 30 03/06/17 05:41 158/65 03/06/17 05:06 82 23 30 03/06/17 05:00 83 17 158/65 95 Mechanical Ventilator 30 03/06/17 04:00 99.8 81 17 140/55 95 Mechanical Ventilator 30 03/06/17 04:00 78 03/06/17 04:00 30 03/06/17 03:06 78 19 30 03/06/17 03:00 79 17 152/61 96 Mechanical Ventilator 30 03/06/17 02:00 74 16 116/52 96 Mechanical Ventilator 30 03/06/17 01:15 76 16 30 03/06/17 01:00 75 16 106/48 96 Mechanical Ventilator 30 03/06/17 00:31 104/46 03/06/17 00:00 77 03/06/17 00:00 99.7 78 16 142/60 96 Mechanical Ventilator 30 03/06/17 00:00 30 03/05/17 23:06 83 17 30 03/05/17 23:00 99.8 77 16 122/52 96 Mechanical Ventilator 30 03/05/17 22:00 77 17 137/52 96 Mechanical Ventilator 30 03/05/17 21:00 72 16 125/47 97 Mechanical Ventilator 30 03/05/17 20:38 84 16 30 03/05/17 20:38 72 102/47 03/05/17 20:00 30 03/05/17 20:00 100.2 73 19 102/47 96 Mechanical Ventilator 30 03/05/17 20:00 80 03/05/17 19:15 77 16 30 03/05/17 19:00 80 19 101/45 95 Mechanical Ventilator 30 03/05/17 18:19 98.2 03/05/17 18:00 88 19 96/44 95 Mechanical Ventilator 30 03/05/17 17:54 30 03/05/17 17:52 103 28 30 03/05/17 17:20 175/71 03/05/17 17:20 175/71 03/05/17 17:18 82 32 30 03/05/17 17:00 80 20 175/71 94 Mechanical Ventilator 30 03/05/17 16:00 98.2 87 21 156/70 94 Mechanical Ventilator 30 03/05/17 16:00 30 03/05/17 16:00 86 03/05/17 15:21 88 30 30 03/05/17 15:00 80 20 158/70 94 Mechanical Ventilator 30 03/05/17 14:00 82 20 162/62 94 Mechanical Ventilator 30 03/05/17 13:17 85 24 30 03/05/17 13:00 87 21 156/74 94 Mechanical Ventilator 30 Status: awake Condition: critical, improving HEENT: atraumatic Neck: full ROM Lungs: clear Heart: HR/BP stable, HR/BP unstable Abdomen: soft, non-tender, feeding tube Extremities: no C/C/E, edema Accucheck: 124 Critical Care - Subjective ROS Limited/Unobtainable: No Interval Events: weaning well. Condition: critical EKG Rhythm: Sinus Rhythm FI02: 30 Vent Support Breath Rate: 8 Vent Support Mode: IMV/SIMV Vent Tidal Volume: 500 Sputum Amount: Small PEEP: 0.0 PIP: 18 Tube Feeding Amount: 30 I&O: Intake and Output 03/06/17 03/07/17 19:00 07:00 Intake Total 80 ml Output Total 250 ml Balance -170 ml Other 80 ml Output Urine Total 250 ml CXR: no change, ET in good position ET-Tube: 8.0 ET Position: 21 Labs: Laboratory Tests Test 03/06/17 03:35 03/06/17 08:10 03/06/17 10:00 White Blood Count 10.3 K/UL (4.8-10.8) Red Blood Count 2.60 M/UL (4.20-5.40) L Hemoglobin 8.8 G/DL (12.0-16.0) L Hematocrit 26.5 % (37.0-47.0) L Mean Corpuscular Volume 102 FL (80-99) H Mean Corpuscular Hemoglobin 33.7 PG (27.0-31.0) H Mean Corpuscular Hemoglobin Concent 33.1 G/DL (32.0-36.0) Red Cell Distribution Width 12.1 % (11.6-14.8) Platelet Count 222 K/UL (150-450) Mean Platelet Volume 8.3 FL (6.5-10.1) Neutrophils (%) (Auto) 69.3 % (45.0-75.0) Lymphocytes (%) (Auto) 21.7 % (20.0-45.0) Monocytes (%) (Auto) 8.7 % (1.0-10.0) Eosinophils (%) (Auto) 0.1 % (0.0-3.0) Basophils (%) (Auto) 0.2 % (0.0-2.0) Sodium Level 148 MMOL/L (136-145) H Potassium Level 3.9 MMOL/L (3.5-5.1) Chloride Level 110 MMOL/L (98-107) H Carbon Dioxide Level 32 MMOL/L (21-32) Anion Gap 6 mmol/L (5-15) Blood Urea Nitrogen 43 mg/dL (7-18) H Creatinine 0.8 MG/DL (0.55-1.30) Estimat Glomerular Filtration Rate mL/min (>60) Glucose Level 137 MG/DL (74-106) H Calcium Level 9.5 MG/DL (8.5-10.1) Phosphorus Level 2.5 MG/DL (2.5-4.9) Magnesium Level 2.4 MG/DL (1.8-2.4) Total Bilirubin 0.4 MG/DL (0.2-1.0) Aspartate Amino Transf (AST/SGOT) 14 U/L (15-37) L Alanine Aminotransferase (ALT/SGPT) 15 U/L (12-78) Alkaline Phosphatase 47 U/L (46-116) Total Protein 6.3 G/DL (6.4-8.2) L Albumin 2.7 G/DL (3.4-5.0) L Globulin 3.6 g/dL Albumin/Globulin Ratio 0.8 (1.0-2.7) L Arterial Blood pH 7.510 (7.350-7.450) Arterial Blood Partial Pressure CO2 38.3 mmHg (35.0-45.0) Arterial Blood Partial Pressure O2 93.3 mmHg (75.0-100.0) Arterial Blood HCO3 30.2 mmol/L (22.0-26.0) H Arterial Blood Oxygen Saturation 96.9 % (92.0-98.0) Arterial Blood Base Excess 6.8 Scooby Test Positive Urine Color Pale yellow Urine Appearance Cloudy Urine pH 8 (4.5-8.0) Urine Specific [place] 1.015 (1.005-1.035) Urine Protein 2+ (NEGATIVE) H Urine Glucose (UA) Negative (NEGATIVE) Urine Ketones Negative (NEGATIVE) Urine Occult Blood 5+ (NEGATIVE) H Urine Nitrite Negative (NEGATIVE) Urine Bilirubin Negative (NEGATIVE) Urine Urobilinogen Normal MG/DL (0.0-1.0) Urine Leukocyte Esterase 3+ (NEGATIVE) H Urine RBC 5-10 /HPF (0 - 2) H Urine WBC 5-10 /HPF (0 - 2) H Urine Squamous Epithelial Cells Few /LPF (NONE/OCC) Urine Amorphous Sediment Many /LPF (NONE) H Urine Bacteria Few /HPF (NONE) Urine Yeast Few /HPF (NONE) H TWIN FONTANEZ Mar 06, 2017 12:59
--- NOTE | 2017-03-06 14:25 | General Progress Note ---
Assessment/Plan Status: stable Assessment/Plan anxiety d/o' encephalopathy -cont current meds -provided ro/st -cont ativan Subjective Neurologic/Psychiatric: Reports: anxiety, emotional problems Allergies: Coded Allergies: TETRACYCLINE (Unverified Allergy, Unknown, 07/24/14) Subjective the pt was asleep arous-able. on ativan still has anxiety Objective Last 24 Hour Vital Signs Date Time Temp Pulse Resp B/P (MAP) Pulse Ox O2 Delivery O2 Flow Rate FiO2 03/06/17 13:00 30 03/06/17 13:00 69 21 136/57 92 Mechanical Ventilator 30 03/06/17 12:43 66 20 30 03/06/17 12:26 125/48 03/06/17 12:00 65 21 125/48 97 Mechanical Ventilator 30 03/06/17 11:12 68 03/06/17 11:04 75 18 30 03/06/17 11:00 30 03/06/17 11:00 67 21 123/57 96 Mechanical Ventilator 30 03/06/17 10:00 77 19 167/65 96 Mechanical Ventilator 30 03/06/17 09:48 79 138/52 03/06/17 09:48 78 138/52 03/06/17 09:48 138/52 03/06/17 09:46 99.8 03/06/17 09:33 30 03/06/17 09:24 94 03/06/17 09:20 72 16 30 03/06/17 09:00 72 16 118/49 96 Mechanical Ventilator 30 03/06/17 08:23 83 03/06/17 08:00 30 03/06/17 08:00 100.0 85 18 157/65 96 Mechanical Ventilator 30 03/06/17 07:42 100.0 03/06/17 07:18 85 21 30 03/06/17 07:00 100.2 80 17 156/65 94 Mechanical Ventilator 30 03/06/17 06:00 100.2 83 16 158/65 94 Mechanical Ventilator 30 03/06/17 05:41 158/65 03/06/17 05:06 82 23 30 03/06/17 05:00 83 17 158/65 95 Mechanical Ventilator 30 03/06/17 04:00 99.8 81 17 140/55 95 Mechanical Ventilator 30 03/06/17 04:00 78 03/06/17 04:00 30 03/06/17 03:06 78 19 30 03/06/17 03:00 79 17 152/61 96 Mechanical Ventilator 30 03/06/17 02:00 74 16 116/52 96 Mechanical Ventilator 30 03/06/17 01:15 76 16 30 03/06/17 01:00 75 16 106/48 96 Mechanical Ventilator 30 03/06/17 00:31 104/46 03/06/17 00:00 77 03/06/17 00:00 99.7 78 16 142/60 96 Mechanical Ventilator 30 03/06/17 00:00 30 03/05/17 23:06 83 17 30 03/05/17 23:00 99.8 77 16 122/52 96 Mechanical Ventilator 30 03/05/17 22:00 77 17 137/52 96 Mechanical Ventilator 30 03/05/17 21:00 72 16 125/47 97 Mechanical Ventilator 30 03/05/17 20:38 84 16 30 03/05/17 20:38 72 102/47 03/05/17 20:00 30 03/05/17 20:00 100.2 73 19 102/47 96 Mechanical Ventilator 30 03/05/17 20:00 80 03/05/17 19:15 77 16 30 03/05/17 19:00 80 19 101/45 95 Mechanical Ventilator 30 03/05/17 18:19 98.2 03/05/17 18:00 88 19 96/44 95 Mechanical Ventilator 30 03/05/17 17:54 30 03/05/17 17:52 103 28 30 03/05/17 17:20 175/71 03/05/17 17:20 175/71 03/05/17 17:18 82 32 30 03/05/17 17:00 80 20 175/71 94 Mechanical Ventilator 30 03/05/17 16:00 98.2 87 21 156/70 94 Mechanical Ventilator 30 03/05/17 16:00 30 03/05/17 16:00 86 03/05/17 15:21 88 30 30 03/05/17 15:00 80 20 158/70 94 Mechanical Ventilator 30 Intake and Output 03/06/17 03/07/17 19:00 07:00 Intake Total 170 ml Output Total 250 ml Balance -80 ml Tube Feeding 60 ml Other 110 ml Output Urine Total 250 ml Laboratory Tests 03/06/17 03:35: White Blood Count 10.3, Red Blood Count 2.60L, Hemoglobin 8.8L, Hematocrit 26.5L , Mean Corpuscular Volume 102H, Mean Corpuscular Hemoglobin 33.7H, Mean Corpuscular Hemoglobin Concent 33.1, Red Cell Distribution Width 12.1, Platelet Count 222, Mean Platelet Volume 8.3, Neutrophils (%) (Auto) 69.3, Lymphocytes (% ) (Auto) 21.7, Monocytes (%) (Auto) 8.7, Eosinophils (%) (Auto) 0.1, Basophils ( %) (Auto) 0.2, Sodium Level 148H, Potassium Level 3.9, Chloride Level 110H, Carbon Dioxide Level 32, Anion Gap 6, Blood Urea Nitrogen 43H, Creatinine 0.8, Estimat Glomerular Filtration Rate , Glucose Level 137H, Calcium Level 9.5, Phosphorus Level 2.5, Magnesium Level 2.4, Total Bilirubin 0.4, Aspartate Amino Transf (AST/SGOT) 14L, Alanine Aminotransferase (ALT/SGPT) 15, Alkaline Phosphatase 47, Total Protein 6.3L, Albumin 2.7L, Globulin 3.6, Albumin/ Globulin Ratio 0.8L 03/06/17 08:10: Arterial Blood pH 7.510H, Arterial Blood Partial Pressure CO2 38.3, Arterial Blood Partial Pressure O2 93.3, Arterial Blood HCO3 30.2H, Arterial Blood Oxygen Saturation 96.9, Arterial Blood Base Excess 6.8, Scooby Test Positive 03/06/17 10:00: Urine Color Pale yellow, Urine Appearance Cloudy, Urine pH 8, Urine Specific [place] 1.015, Urine Protein 2+H, Urine Glucose (UA) Negative, Urine Ketones Negative, Urine Occult Blood 5+H, Urine Nitrite Negative, Urine Bilirubin Negative, Urine Urobilinogen Normal, Urine Leukocyte Esterase 3+H, Urine RBC 5- 10H, Urine WBC 5-10H, Urine Squamous Epithelial Cells Few, Urine Amorphous Sediment ManyH, Urine Bacteria Few, Urine Yeast FewH Height (Feet): 5 Height (Inches): 7.00 Weight (Pounds): 117 General Appearance: no apparent distress, alert, overweight Neurologic: alert, responsive, disoriented Wan Stern M.D. Mar 06, 2017 14:25
--- NOTE | 2017-03-06 18:28 | Cardiology Progress Note ---
Assessment/Plan Assessment/Plan 1. Respiratory failure. 2. Chronic obstructive pulmonary disease exacerbation. 3. Questionable pneumonia. 4. History of mitral regurgitation of significant degree. 5. History of subdural hematomas and intracranial hemorrhage. 6. History of breast cancer. 7. Anemia. 8. History of Clostridium difficile colitis. 9. History of anxiety. 10. Sinus tachycardia secondary to above. 11. Htn 12. CHF acute diastolic 13. l m bronchus occlusion with debris 14. lung collapase 15 Hypotension resolved 16. alkalosis vent support remains in icu intubated labs reviewed bp ok today tele sinus wean as feesible Subjective ROS Limited/Unobtainable: Yes Subjective on vent Objective Last 24 Hour Vital Signs Date Time Temp Pulse Resp B/P (MAP) Pulse Ox O2 Delivery O2 Flow Rate FiO2 03/06/17 18:00 30 03/06/17 18:00 100/45 03/06/17 18:00 100/45 03/06/17 18:00 64 18 100/45 94 Mechanical Ventilator 30 03/06/17 17:46 65 16 30 03/06/17 17:00 71 17 128/54 95 Mechanical Ventilator 30 03/06/17 16:00 69 03/06/17 16:00 99.6 69 18 120/57 95 Mechanical Ventilator 30 03/06/17 16:00 30 03/06/17 15:11 71 26 30 03/06/17 15:00 70 20 112/50 95 Mechanical Ventilator 30 03/06/17 14:00 70 19 80/37 95 Mechanical Ventilator 30 03/06/17 13:00 30 03/06/17 13:00 69 21 136/57 92 Mechanical Ventilator 30 03/06/17 12:43 66 20 30 03/06/17 12:26 125/48 03/06/17 12:00 65 21 125/48 97 Mechanical Ventilator 30 03/06/17 11:12 68 03/06/17 11:04 75 18 30 03/06/17 11:00 30 03/06/17 11:00 67 21 123/57 96 Mechanical Ventilator 30 03/06/17 10:00 77 19 167/65 96 Mechanical Ventilator 30 03/06/17 09:48 79 138/52 03/06/17 09:48 78 138/52 03/06/17 09:48 138/52 03/06/17 09:46 99.8 03/06/17 09:33 30 10/27/17 09:24 94 03/06/17 09:20 72 16 30 03/06/17 09:00 72 16 118/49 96 Mechanical Ventilator 30 03/06/17 08:23 83 03/06/17 08:00 30 03/06/17 08:00 100.0 85 18 157/65 96 Mechanical Ventilator 30 03/06/17 07:42 100.0 03/06/17 07:18 85 21 30 03/06/17 07:00 100.2 80 17 156/65 94 Mechanical Ventilator 30 03/06/17 06:00 100.2 83 16 158/65 94 Mechanical Ventilator 30 03/06/17 05:41 158/65 03/06/17 05:06 82 23 30 03/06/17 05:00 83 17 158/65 95 Mechanical Ventilator 30 03/06/17 04:00 99.8 81 17 140/55 95 Mechanical Ventilator 30 03/06/17 04:00 78 03/06/17 04:00 30 03/06/17 03:06 78 19 30 03/06/17 03:00 79 17 152/61 96 Mechanical Ventilator 30 03/06/17 02:00 74 16 116/52 96 Mechanical Ventilator 30 03/06/17 01:15 76 16 30 03/06/17 01:00 75 16 106/48 96 Mechanical Ventilator 30 03/06/17 00:31 104/46 03/06/17 00:00 77 03/06/17 00:00 99.7 78 16 142/60 96 Mechanical Ventilator 30 03/06/17 00:00 30 03/05/17 23:06 83 17 30 03/05/17 23:00 99.8 77 16 122/52 96 Mechanical Ventilator 30 03/05/17 22:00 77 17 137/52 96 Mechanical Ventilator 30 03/05/17 21:00 72 16 125/47 97 Mechanical Ventilator 30 03/05/17 20:38 84 16 30 03/05/17 20:38 72 102/47 03/05/17 20:00 30 03/05/17 20:00 100.2 73 19 102/47 96 Mechanical Ventilator 30 03/05/17 20:00 80 03/05/17 19:15 77 16 30 03/05/17 19:00 80 19 101/45 95 Mechanical Ventilator 30 General Appearance: no apparent distress, alert Neck: supple Cardiovascular: normal rate, regular rhythm Respiratory/Chest: lungs clear, normal breath sounds Abdomen: normal bowel sounds, non tender, soft Extremities: no swelling Intake and Output 03/06/17 03/07/17 19:00 07:00 Intake Total 290 ml Output Total 450 ml Balance -160 ml Tube Feeding 180 ml Other 110 ml Output Urine Total 450 ml Laboratory Tests Test 03/06/17 03:35 03/06/17 08:10 03/06/17 10:00 White Blood Count 10.3 K/UL (4.8-10.8) Red Blood Count 2.60 M/UL (4.20-5.40) L Hemoglobin 8.8 G/DL (12.0-16.0) L Hematocrit 26.5 % (37.0-47.0) L Mean Corpuscular Volume 102 FL (80-99) H Mean Corpuscular Hemoglobin 33.7 PG (27.0-31.0) H Mean Corpuscular Hemoglobin Concent 33.1 G/DL (32.0-36.0) Red Cell Distribution Width 12.1 % (11.6-14.8) Platelet Count 222 K/UL (150-450) Mean Platelet Volume 8.3 FL (6.5-10.1) Neutrophils (%) (Auto) 69.3 % (45.0-75.0) Lymphocytes (%) (Auto) 21.7 % (20.0-45.0) Monocytes (%) (Auto) 8.7 % (1.0-10.0) Eosinophils (%) (Auto) 0.1 % (0.0-3.0) Basophils (%) (Auto) 0.2 % (0.0-2.0) Sodium Level 148 MMOL/L (136-145) H Potassium Level 3.9 MMOL/L (3.5-5.1) Chloride Level 110 MMOL/L (98-107) H Carbon Dioxide Level 32 MMOL/L (21-32) Anion Gap 6 mmol/L (5-15) Blood Urea Nitrogen 43 mg/dL (7-18) H Creatinine 0.8 MG/DL (0.55-1.30) Estimat Glomerular Filtration Rate mL/min (>60) Glucose Level 137 MG/DL (74-106) H Calcium Level 9.5 MG/DL (8.5-10.1) Phosphorus Level 2.5 MG/DL (2.5-4.9) Magnesium Level 2.4 MG/DL (1.8-2.4) Total Bilirubin 0.4 MG/DL (0.2-1.0) Aspartate Amino Transf (AST/SGOT) 14 U/L (15-37) L Alanine Aminotransferase (ALT/SGPT) 15 U/L (12-78) Alkaline Phosphatase 47 U/L (46-116) Total Protein 6.3 G/DL (6.4-8.2) L Albumin 2.7 G/DL (3.4-5.0) L Globulin 3.6 g/dL Albumin/Globulin Ratio 0.8 (1.0-2.7) L Arterial Blood pH 7.510 (7.350-7.450) Arterial Blood Partial Pressure CO2 38.3 mmHg (35.0-45.0) Arterial Blood Partial Pressure O2 93.3 mmHg (75.0-100.0) Arterial Blood HCO3 30.2 mmol/L (22.0-26.0) H Arterial Blood Oxygen Saturation 96.9 % (92.0-98.0) Arterial Blood Base Excess 6.8 Scooby Test Positive Urine Color Pale yellow Urine Appearance Cloudy Urine pH 8 (4.5-8.0) Urine Specific [place] 1.015 (1.005-1.035) Urine Protein 2+ (NEGATIVE) H Urine Glucose (UA) Negative (NEGATIVE) Urine Ketones Negative (NEGATIVE) Urine Occult Blood 5+ (NEGATIVE) H Urine Nitrite Negative (NEGATIVE) Urine Bilirubin Negative (NEGATIVE) Urine Urobilinogen Normal MG/DL (0.0-1.0) Urine Leukocyte Esterase 3+ (NEGATIVE) H Urine RBC 5-10 /HPF (0 - 2) H Urine WBC 5-10 /HPF (0 - 2) H Urine Squamous Epithelial Cells Few /LPF (NONE/OCC) Urine Amorphous Sediment Many /LPF (NONE) H Urine Bacteria Few /HPF (NONE) Urine Yeast Few /HPF (NONE) H JEFFERSON ROMEO Mar 06, 2017 18:28
--- NOTE | 2017-03-06 19:05 | Internal Med Progress Note ---
Subjective Date of Service: Mar 06, 2017 Physician Name Zeb Fuentes Attending Physician Jun Cedillo MD Current Medications Medications (Trade) Dose Ordered Sig/Wilner Route PRN Reason Start Time Stop Time Status Last Admin Dose Admin Acetaminophen (Tylenol) 650 mg Q4H PRN ORAL FEVER 02/25/17 15:15 03/27/17 15:14 03/06/17 06:43 Allopurinol (Zyloprim) 100 mg DAILY ORAL 03/02/17 09:00 04/01/17 08:59 03/06/17 09:49 Amlodipine Besylate (Norvasc) 10 mg DAILY ORAL 03/04/17 12:00 04/03/17 11:59 03/06/17 09:48 Aspirin (Ecotrin) 81 mg DAILY ORAL 02/26/17 09:00 03/19/17 08:59 03/06/17 09:48 Bisacodyl (Dulcolax) 10 mg DAILYPRN PRN RECTAL Constipation Third Line Agent 02/25/17 15:15 03/27/17 15:14 Carvedilol (Coreg) 25 mg Q12HR ORAL 03/05/17 21:00 04/04/17 20:59 03/06/17 09:48 Clonazepam (KlonoPIN) 1 mg DAILY ORAL 03/01/17 09:00 03/08/17 08:59 03/06/17 09:47 Dextrose (Dextrose 50%) STAT PRN IV Hypoglycemia 02/25/17 15:15 03/17/17 15:14 Escitalopram Oxalate (Lexapro) 10 mg DAILY ORAL 02/26/17 09:00 03/20/17 08:59 03/06/17 09:47 Haloperidol Lactate (Haldol) 2 mg Q4H PRN IM Agitation 02/25/17 15:15 03/27/17 15:14 02/25/17 22:38 Hydralazine HCl (Apresoline) 10 mg Q6HR NG 03/05/17 12:00 04/04/17 11:59 03/06/17 12:26 Hydralazine HCl (Apresoline) 25 mg Q4H PRN ORAL SBP > 160mmHg 02/25/17 15:15 03/27/17 15:14 03/04/17 08:30 Lidocaine (Xylocaine 1% MPF 5ml) 10 ml Q4H PRN HHN cough 02/25/17 15:15 03/19/17 15:14 Lisinopril (Prinivil) 20 mg BID ORAL 02/25/17 18:00 03/27/17 17:59 03/06/17 09:48 Metoclopramide HCl (Reglan) 5 mg Q8HR IVP 03/04/17 22:00 04/03/17 21:59 03/06/17 13:38 Morphine Sulfate (Morphine Sulfate) 4 mg Q4H PRN IVP Breakthrough Pain 02/26/17 11:00 03/07/17 10:59 02/27/17 01:01 Ondansetron HCl (Zofran) 4 mg Q6H PRN IVP Nausea & Vomiting 02/25/17 15:15 03/17/17 15:14 Pantoprazole (Protonix) 40 mg DAILY IV 02/27/17 09:00 03/29/17 08:59 03/06/17 09:47 Polyethylene Glycol (Miralax) 17 gm DAILYPRN PRN ORAL Constipation First line agent 02/25/17 15:15 03/17/17 15:14 Pravastatin Sodium (Pravachol) 20 mg BEDTIME ORAL 02/25/17 21:00 03/18/17 20:59 03/05/17 20:38 Prednisone (predniSONE) 40 mg DAILY ORAL 02/26/17 09:00 03/28/17 08:59 03/06/17 09:47 Pregabalin (Lyrica) 150 mg THREE TIMES A DAY ORAL 02/25/17 18:00 03/18/17 12:59 03/06/17 18:20 Promethazine HCl/ Codeine (Phenergan with Codeine) 5 ml Q4H PRN ORAL UNRELIEVED COUGH 02/25/17 15:15 03/18/17 15:14 Ranitidine HCl (Zantac) 150 mg QPM ORAL 02/25/17 16:30 03/27/17 16:29 03/06/17 16:51 Allergies: Coded Allergies: TETRACYCLINE (Unverified Allergy, Unknown, 07/24/14) ROS Limited/Unobtainable: Yes Subjective 76 YO F admitted with shortness of breath. Now pneumonia. Cover for Int Med- Dr Cedillo. ICU. CT chest=occlusion left mainstem bronchus-Intubated 02/25/17. Failed weaning protocol Objective Last Vital Signs Date Time Temp Pulse Resp B/P (MAP) Pulse Ox O2 Delivery O2 Flow Rate FiO2 03/06/17 18:00 30 03/06/17 18:00 100/45 03/06/17 18:00 64 18 94 Mechanical Ventilator 03/06/17 16:00 99.6 02/26/17 06:45 15.0 Laboratory Tests Test 03/06/17 03:35 03/06/17 08:10 03/06/17 10:00 White Blood Count 10.3 K/UL (4.8-10.8) Red Blood Count 2.60 M/UL (4.20-5.40) L Hemoglobin 8.8 G/DL (12.0-16.0) L Hematocrit 26.5 % (37.0-47.0) L Mean Corpuscular Volume 102 FL (80-99) H Mean Corpuscular Hemoglobin 33.7 PG (27.0-31.0) H Mean Corpuscular Hemoglobin Concent 33.1 G/DL (32.0-36.0) Red Cell Distribution Width 12.1 % (11.6-14.8) Platelet Count 222 K/UL (150-450) Mean Platelet Volume 8.3 FL (6.5-10.1) Neutrophils (%) (Auto) 69.3 % (45.0-75.0) Lymphocytes (%) (Auto) 21.7 % (20.0-45.0) Monocytes (%) (Auto) 8.7 % (1.0-10.0) Eosinophils (%) (Auto) 0.1 % (0.0-3.0) Basophils (%) (Auto) 0.2 % (0.0-2.0) Sodium Level 148 MMOL/L (136-145) H Potassium Level 3.9 MMOL/L (3.5-5.1) Chloride Level 110 MMOL/L (98-107) H Carbon Dioxide Level 32 MMOL/L (21-32) Anion Gap 6 mmol/L (5-15) Blood Urea Nitrogen 43 mg/dL (7-18) H Creatinine 0.8 MG/DL (0.55-1.30) Estimat Glomerular Filtration Rate mL/min (>60) Glucose Level 137 MG/DL (74-106) H Calcium Level 9.5 MG/DL (8.5-10.1) Phosphorus Level 2.5 MG/DL (2.5-4.9) Magnesium Level 2.4 MG/DL (1.8-2.4) Total Bilirubin 0.4 MG/DL (0.2-1.0) Aspartate Amino Transf (AST/SGOT) 14 U/L (15-37) L Alanine Aminotransferase (ALT/SGPT) 15 U/L (12-78) Alkaline Phosphatase 47 U/L (46-116) Total Protein 6.3 G/DL (6.4-8.2) L Albumin 2.7 G/DL (3.4-5.0) L Globulin 3.6 g/dL Albumin/Globulin Ratio 0.8 (1.0-2.7) L Arterial Blood pH 7.510 (7.350-7.450) Arterial Blood Partial Pressure CO2 38.3 mmHg (35.0-45.0) Arterial Blood Partial Pressure O2 93.3 mmHg (75.0-100.0) Arterial Blood HCO3 30.2 mmol/L (22.0-26.0) H Arterial Blood Oxygen Saturation 96.9 % (92.0-98.0) Arterial Blood Base Excess 6.8 Scooby Test Positive Urine Color Pale yellow Urine Appearance Cloudy Urine pH 8 (4.5-8.0) Urine Specific [place] 1.015 (1.005-1.035) Urine Protein 2+ (NEGATIVE) H Urine Glucose (UA) Negative (NEGATIVE) Urine Ketones Negative (NEGATIVE) Urine Occult Blood 5+ (NEGATIVE) H Urine Nitrite Negative (NEGATIVE) Urine Bilirubin Negative (NEGATIVE) Urine Urobilinogen Normal MG/DL (0.0-1.0) Urine Leukocyte Esterase 3+ (NEGATIVE) H Urine RBC 5-10 /HPF (0 - 2) H Urine WBC 5-10 /HPF (0 - 2) H Urine Squamous Epithelial Cells Few /LPF (NONE/OCC) Urine Amorphous Sediment Many /LPF (NONE) H Urine Bacteria Few /HPF (NONE) Urine Yeast Few /HPF (NONE) H Intake and Output 03/06/17 03/07/17 19:00 07:00 Intake Total 290 ml Output Total 450 ml Balance -160 ml Tube Feeding 180 ml Other 110 ml Output Urine Total 450 ml Objective General Appearance: WD/WN, no apparent distress, alert EENT: PERRL/EOMI, normal ENT inspection, TMs normal Neck: non-tender, normal alignment, supple, normal inspection Cardiovascular: normal peripheral pulses, normal rate, regular rhythm, no gallop/murmur, no JVD Respiratory/Chest: Mech Vent; chest wall non-tender, respiratory distress, decreased breath sounds, crackles/rales, rhonchi - bilaterally, expiratory wheezing Abdomen: normal bowel sounds, non tender, soft, no organomegaly, no mass Extremities: normal range of motion 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 (8) Pneumonia Assessment & Plan: Continue Meropenem and vanco. See ID and pulmonary notes. (9) COPD exacerbation Assessment & Plan: Continue IV solumedrol and xopenex/atrovent nebs. See pulmonary note. (10) Diastolic CHF Assessment & Plan: See cardiology note. 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 S/P intubation to aerate left lung-see pulmonary note. D/W pulmonary Dr Hernandez (14) Respiratory failure requiring intubation Assessment & Plan: Failed weaning; Weaning trial tomorrow-see pulm note Status: not improved ZEB FUENTES Mar 06, 2017 19:05
[2017-03-07] VITALS (24 sets, daily range): BP systolic 85–156; BP diastolic 37–75
[2017-03-07] MEDS: HydrALAZINE 10mg Tab NG SCH ×4 (00:30→18:00)
[2017-03-07] MEDS: Metoclopramide 10mg/2ml Inj IVP SCH ×3 (05:47→22:20)
[2017-03-07 06:29] LABS: BASOPHILS % (AUTO) 0.3 % (0.0-2.0); EOSINOPHILS % (AUTO) 0.3 % (0.0-3.0); HEMATOCRIT 27.8 % (37.0-47.0); HEMOGLOBIN 9.4 G/DL (12.0-16.0); LYMPHOCYTES % (AUTO) 32.1 % (20.0-45.0); MEAN CORPUSCULAR VOLUME 101 FL (80-99); MONOCYTES % (AUTO) 8.3 % (1.0-10.0); PLATELET COUNT 219 K/UL (150-450); RED BLOOD COUNT 2.74 M/UL (4.20-5.40); RED CELL DISTRIBUTION WIDTH 12.3 % (11.6-14.8); WHITE BLOOD COUNT 8.8 K/UL (4.8-10.8)
[2017-03-07 08:06] LABS: ALANINE AMINOTRANSFERASE 19 U/L (12-78); ALBUMIN 2.8 G/DL (3.4-5.0); ALBUMIN/GLOBULIN RATIO 0.7 (1.0-2.7); ALKALINE PHOSPHATASE 47 U/L (46-116); ANION GAP 9 mmol/L (5-15); ASPARTATE AMINO TRANSFERASE 15 U/L (15-37); BILIRUBIN,TOTAL 0.5 MG/DL (0.2-1.0); BLOOD UREA NITROGEN 44 mg/dL (7-18); CALCIUM 10.1 MG/DL (8.5-10.1); CARBON DIOXIDE 28 MMOL/L (21-32); CHLORIDE 108 MMOL/L (98-107); CREATININE 0.7 MG/DL (0.55-1.30); PHOSPHORUS 2.5 MG/DL (2.5-4.9); POTASSIUM 3.3 MMOL/L (3.5-5.1); SODIUM 145 MMOL/L (136-145)
--- NOTE | 2017-03-07 08:10 | Pulmonolgy Critical Care Note ---
Critical Care - Asmt/Plan Problems: (1) Acute and chronic respiratory failure ([id number]) (2) COPD (chronic obstructive pulmonary disease) (3) Right middle lobe pneumonia (4) Collapse of left lung Respiratory: monitor respiratory rate, adjust FIO2 Cardiac: continue to monitor HR/BP Renal: F/U I&O, keep IV fluid, increase IV fluid, check electrolytes Infectious Disease: check cultures Gastrointestinal: continue feedings/current rate Endocrine: monitor blood sugar, continue sliding scale insulin Hematologic: monitor H/H, transfuse if hgb<8.5 Neurologic: keep patient comfortable Affect: PRN ativan Prophylaxis: Protonix Time Spent (Minutes): 40 Notes Reviewed: vp of customer experience strategy, renal, ID Critical Care - Objective Last 24 Hour Vital Signs Date Time Temp Pulse Resp B/P (MAP) Pulse Ox O2 Delivery O2 Flow Rate FiO2 03/07/17 07:23 74 19 30 03/07/17 07:00 71 17 144/61 97 Mechanical Ventilator 30 03/07/17 06:00 75 16 121/61 97 Mechanical Ventilator 30 03/07/17 05:47 131/52 03/07/17 05:42 76 23 30 03/07/17 05:00 81 16 90/40 94 Mechanical Ventilator 30 03/07/17 04:00 63 03/07/17 04:00 30 03/07/17 04:00 98.0 59 16 113/44 99 Mechanical Ventilator 30 03/07/17 03:10 88 16 30 03/07/17 03:00 60 16 116/47 99 Mechanical Ventilator 30 03/07/17 02:00 61 16 97/44 99 Mechanical Ventilator 30 03/07/17 01:00 69 16 139/60 98 Mechanical Ventilator 30 03/07/17 01:00 81 17 30 03/07/17 00:30 131/58 03/07/17 00:00 30 03/07/17 00:00 76 03/07/17 00:00 97.9 73 17 138/57 98 Mechanical Ventilator 30 03/06/17 23:00 69 16 123/65 98 Mechanical Ventilator 30 03/06/17 22:32 84 16 30 03/06/17 22:00 66 16 93/44 98 Mechanical Ventilator 30 03/06/17 21:15 82 20 30 03/06/17 21:15 72 119/52 03/06/17 21:00 70 16 119/52 97 Mechanical Ventilator 30 03/06/17 20:00 73 03/06/17 20:00 98.1 72 18 102/48 98 Mechanical Ventilator 30 03/06/17 20:00 98.7 03/06/17 20:00 30 03/06/17 19:41 76 21 30 03/06/17 19:00 75 21 113/82 98 Mechanical Ventilator 30 03/06/17 18:00 30 03/06/17 18:00 100/45 03/06/17 18:00 100/45 03/06/17 18:00 64 18 100/45 94 Mechanical Ventilator 30 03/06/17 17:46 65 16 30 03/06/17 17:00 71 17 128/54 95 Mechanical Ventilator 30 03/06/17 16:00 69 03/06/17 16:00 99.6 69 18 120/57 95 Mechanical Ventilator 30 03/06/17 16:00 30 03/06/17 15:11 71 26 30 03/06/17 15:00 70 20 112/50 95 Mechanical Ventilator 30 03/06/17 14:00 70 19 80/37 95 Mechanical Ventilator 30 03/06/17 13:00 30 03/06/17 13:00 69 21 136/57 92 Mechanical Ventilator 30 03/06/17 12:43 66 20 30 03/06/17 12:26 125/48 03/06/17 12:00 65 21 125/48 97 Mechanical Ventilator 30 03/06/17 11:12 68 03/06/17 11:04 75 18 30 03/06/17 11:00 30 03/06/17 11:00 67 21 123/57 96 Mechanical Ventilator 30 03/06/17 10:00 77 19 167/65 96 Mechanical Ventilator 30 03/06/17 09:48 79 138/52 03/06/17 09:48 78 138/52 03/06/17 09:48 138/52 03/06/17 09:46 99.8 03/06/17 09:33 30 03/06/17 09:24 94 03/06/17 09:20 72 16 30 03/06/17 09:00 72 16 118/49 96 Mechanical Ventilator 30 03/06/17 08:23 83 Status: awake Condition: critical HEENT: atraumatic, normocephalic Lungs: clear Heart: HR/BP stable Abdomen: soft, non-tender, feeding tube Extremities: edema Decubiti: location, stage Accucheck: 124 Critical Care - Subjective ROS Limited/Unobtainable: No Interval Events: awake, continues to wean FI02: 30 Vent Support Breath Rate: 16 Vent Support Mode: CPAP Vent Tidal Volume: 500 Sputum Amount: Small PEEP: 0.0 PIP: 25 Tube Feeding Amount: 30 CXR: no change, ET tube in place ET-Tube: 8.0 ET Position: 21 Labs: Laboratory Tests Test 03/06/17 08:10 03/06/17 10:00 03/07/17 05:25 Arterial Blood pH 7.510 (7.350-7.450) Arterial Blood Partial Pressure CO2 38.3 mmHg (35.0-45.0) Arterial Blood Partial Pressure O2 93.3 mmHg (75.0-100.0) Arterial Blood HCO3 30.2 mmol/L (22.0-26.0) H Arterial Blood Oxygen Saturation 96.9 % (92.0-98.0) Arterial Blood Base Excess 6.8 Scooby Test Positive Urine Color Pale yellow Urine Appearance Cloudy Urine pH 8 (4.5-8.0) Urine Specific [place] 1.015 (1.005-1.035) Urine Protein 2+ (NEGATIVE) H Urine Glucose (UA) Negative (NEGATIVE) Urine Ketones Negative (NEGATIVE) Urine Occult Blood 5+ (NEGATIVE) H Urine Nitrite Negative (NEGATIVE) Urine Bilirubin Negative (NEGATIVE) Urine Urobilinogen Normal MG/DL (0.0-1.0) Urine Leukocyte Esterase 3+ (NEGATIVE) H Urine RBC 5-10 /HPF (0 - 2) H Urine WBC 5-10 /HPF (0 - 2) H Urine Squamous Epithelial Cells Few /LPF (NONE/OCC) Urine Amorphous Sediment Many /LPF (NONE) H Urine Bacteria Few /HPF (NONE) Urine Yeast Few /HPF (NONE) H White Blood Count 8.8 K/UL (4.8-10.8) Red Blood Count 2.74 M/UL (4.20-5.40) L Hemoglobin 9.4 G/DL (12.0-16.0) L Hematocrit 27.8 % (37.0-47.0) L Mean Corpuscular Volume 101 FL (80-99) H Mean Corpuscular Hemoglobin 34.1 PG (27.0-31.0) H Mean Corpuscular Hemoglobin Concent 33.7 G/DL (32.0-36.0) Red Cell Distribution Width 12.3 % (11.6-14.8) Platelet Count 219 K/UL (150-450) Mean Platelet Volume 8.0 FL (6.5-10.1) Neutrophils (%) (Auto) 59.0 % (45.0-75.0) Lymphocytes (%) (Auto) 32.1 % (20.0-45.0) Monocytes (%) (Auto) 8.3 % (1.0-10.0) Eosinophils (%) (Auto) 0.3 % (0.0-3.0) Basophils (%) (Auto) 0.3 % (0.0-2.0) Sodium Level Pending Potassium Level Pending Chloride Level Pending Carbon Dioxide Level Pending Blood Urea Nitrogen Pending Creatinine Pending Estimat Glomerular Filtration Rate Pending Glucose Level Pending Calcium Level Pending Phosphorus Level Pending Magnesium Level Pending Total Bilirubin Pending Aspartate Amino Transf (AST/SGOT) Pending Alanine Aminotransferase (ALT/SGPT) Pending Alkaline Phosphatase Pending Total Protein Pending Albumin Pending Globulin Pending TWIN FONTANEZ Mar 07, 2017 08:10
[2017-03-07] MEDS: Pantoprazole Inj IV SCH (08:36)
[2017-03-07] MEDS: Allopurinol 100mg Tab ORAL SCH (08:37)
[2017-03-07] MEDS: Aspirin EC 81mg tab ORAL SCH (08:37)
[2017-03-07] MEDS: Lisinopril 20mg tab ORAL SCH ×2 (08:38→18:00)
[2017-03-07] MEDS: Carvedilol 25mg Tab ORAL SCH ×2 (08:39→20:58)
[2017-03-07] MEDS: Lyrica 75mg cap ORAL SCH ×3 (08:42→18:01)
--- NOTE | 2017-03-07 09:04 | Cardiology Progress Note ---
Assessment/Plan Assessment/Plan 1. Respiratory failure. 2. Chronic obstructive pulmonary disease exacerbation. 3. Questionable pneumonia. 4. History of mitral regurgitation of significant degree. 5. History of subdural hematomas and intracranial hemorrhage. 6. History of breast cancer. 7. Anemia. 8. History of Clostridium difficile colitis. 9. History of anxiety. 10. Sinus tachycardia secondary to above. 11. Htn 12. CHF acute diastolic 13. l m bronchus occlusion with debris 14. lung collapase 15 Hypotension resolved 16. alkalosis resolved vent support remains in icu intubated labs reviewed bp ok today tele sinus wean as feesible awake adn responsive alb seem ok mild azotemia yest cxr lightly increased left pleural fluid, over one day. Otherwise stable has been in neg fluid balance Subjective Cardiovascular: Denies: chest pain, lightheadedness, palpitations Respiratory: Denies: shortness of breath Gastrointestinal/Abdominal: Denies: abdominal pain Genitourinary: Denies: burning Subjective on vent Objective Last 24 Hour Vital Signs Date Time Temp Pulse Resp B/P (MAP) Pulse Ox O2 Delivery O2 Flow Rate FiO2 03/07/17 08:39 72 146/66 03/07/17 08:39 74 146/66 03/07/17 08:38 146/66 03/07/17 07:23 74 19 30 03/07/17 07:00 71 17 144/61 97 Mechanical Ventilator 30 03/07/17 06:00 75 16 121/61 97 Mechanical Ventilator 30 03/07/17 05:47 131/52 03/07/17 05:42 76 23 30 03/07/17 05:00 81 16 90/40 94 Mechanical Ventilator 30 03/07/17 04:00 63 03/07/17 04:00 30 03/07/17 04:00 98.0 59 16 113/44 99 Mechanical Ventilator 30 03/07/17 03:10 88 16 30 03/07/17 03:00 60 16 116/47 99 Mechanical Ventilator 30 03/07/17 02:00 61 16 97/44 99 Mechanical Ventilator 30 03/07/17 01:00 69 16 139/60 98 Mechanical Ventilator 30 03/07/17 01:00 81 17 30 03/07/17 00:30 131/58 03/07/17 00:00 30 03/07/17 00:00 76 03/07/17 00:00 97.9 73 17 138/57 98 Mechanical Ventilator 30 03/06/17 23:00 69 16 123/65 98 Mechanical Ventilator 30 03/06/17 22:32 84 16 30 03/06/17 22:00 66 16 93/44 98 Mechanical Ventilator 30 03/06/17 21:15 82 20 30 03/06/17 21:15 72 119/52 03/06/17 21:00 70 16 119/52 97 Mechanical Ventilator 30 03/06/17 20:00 73 03/06/17 20:00 98.1 72 18 102/48 98 Mechanical Ventilator 30 03/06/17 20:00 98.7 03/06/17 20:00 30 03/06/17 19:41 76 21 30 03/06/17 19:00 75 21 113/82 98 Mechanical Ventilator 30 03/06/17 18:00 30 03/06/17 18:00 100/45 03/06/17 18:00 100/45 03/06/17 18:00 64 18 100/45 94 Mechanical Ventilator 30 03/06/17 17:46 65 16 30 03/06/17 17:00 71 17 128/54 95 Mechanical Ventilator 30 03/06/17 16:00 69 03/06/17 16:00 99.6 69 18 120/57 95 Mechanical Ventilator 30 03/06/17 16:00 30 03/06/17 15:11 71 26 30 03/06/17 15:00 70 20 112/50 95 Mechanical Ventilator 30 03/06/17 14:00 70 19 80/37 95 Mechanical Ventilator 30 03/06/17 13:00 30 03/06/17 13:00 69 21 136/57 92 Mechanical Ventilator 30 03/06/17 12:43 66 20 30 03/06/17 12:26 125/48 03/06/17 12:00 65 21 125/48 97 Mechanical Ventilator 30 03/06/17 11:12 68 03/06/17 11:04 75 18 30 03/06/17 11:00 30 03/06/17 11:00 67 21 123/57 96 Mechanical Ventilator 30 03/06/17 10:00 77 19 167/65 96 Mechanical Ventilator 30 03/06/17 09:48 79 138/52 03/06/17 09:48 78 138/52 03/06/17 09:48 138/52 03/06/17 09:46 99.8 10/27/17 09:33 30 03/06/17 09:24 94 03/06/17 09:20 72 16 30 General Appearance: no apparent distress, alert, on vent Neck: supple Cardiovascular: normal rate, regular rhythm Respiratory/Chest: lungs clear Abdomen: normal bowel sounds, non tender, soft Extremities: no swelling Laboratory Tests Test 03/06/17 10:00 03/07/17 05:25 Urine Color Pale yellow Urine Appearance Cloudy Urine pH 8 (4.5-8.0) Urine Specific [place] 1.015 (1.005-1.035) Urine Protein 2+ (NEGATIVE) H Urine Glucose (UA) Negative (NEGATIVE) Urine Ketones Negative (NEGATIVE) Urine Occult Blood 5+ (NEGATIVE) H Urine Nitrite Negative (NEGATIVE) Urine Bilirubin Negative (NEGATIVE) Urine Urobilinogen Normal MG/DL (0.0-1.0) Urine Leukocyte Esterase 3+ (NEGATIVE) H Urine RBC 5-10 /HPF (0 - 2) H Urine WBC 5-10 /HPF (0 - 2) H Urine Squamous Epithelial Cells Few /LPF (NONE/OCC) Urine Amorphous Sediment Many /LPF (NONE) H Urine Bacteria Few /HPF (NONE) Urine Yeast Few /HPF (NONE) H White Blood Count 8.8 K/UL (4.8-10.8) Red Blood Count 2.74 M/UL (4.20-5.40) L Hemoglobin 9.4 G/DL (12.0-16.0) L Hematocrit 27.8 % (37.0-47.0) L Mean Corpuscular Volume 101 FL (80-99) H Mean Corpuscular Hemoglobin 34.1 PG (27.0-31.0) H Mean Corpuscular Hemoglobin Concent 33.7 G/DL (32.0-36.0) Red Cell Distribution Width 12.3 % (11.6-14.8) Platelet Count 219 K/UL (150-450) Mean Platelet Volume 8.0 FL (6.5-10.1) Neutrophils (%) (Auto) 59.0 % (45.0-75.0) Lymphocytes (%) (Auto) 32.1 % (20.0-45.0) Monocytes (%) (Auto) 8.3 % (1.0-10.0) Eosinophils (%) (Auto) 0.3 % (0.0-3.0) Basophils (%) (Auto) 0.3 % (0.0-2.0) Sodium Level 145 MMOL/L (136-145) Potassium Level 3.3 MMOL/L (3.5-5.1) L Chloride Level 108 MMOL/L (98-107) H Carbon Dioxide Level 28 MMOL/L (21-32) Anion Gap 9 mmol/L (5-15) Blood Urea Nitrogen 44 mg/dL (7-18) H Creatinine 0.7 MG/DL (0.55-1.30) Estimat Glomerular Filtration Rate mL/min (>60) Glucose Level 121 MG/DL (74-106) H Calcium Level 10.1 MG/DL (8.5-10.1) Phosphorus Level 2.5 MG/DL (2.5-4.9) Magnesium Level 2.4 MG/DL (1.8-2.4) Total Bilirubin 0.5 MG/DL (0.2-1.0) Aspartate Amino Transf (AST/SGOT) 15 U/L (15-37) Alanine Aminotransferase (ALT/SGPT) 19 U/L (12-78) Alkaline Phosphatase 47 U/L (46-116) Total Protein 6.7 G/DL (6.4-8.2) Albumin 2.8 G/DL (3.4-5.0) L Globulin 3.9 g/dL Albumin/Globulin Ratio 0.7 (1.0-2.7) L Microbiology Date/Time Source Procedure Growth Status 03/06/17 10:00 Sputum Gram Stain - Final Resulted 03/06/17 10:00 Sputum Sputum Culture Pending Resulted JEFFERSON ROMEO Mar 07, 2017 09:04
--- NOTE | 2017-03-07 09:13 | Infectious Diseases Prog Note ---
Assessment/Plan Assessment/Plan Abx: IV Vanco 02/15-03/01 Cefepime 02/15-02/18 Meropenem 02/18-03/03 Assesment: Low grade fever- r/o new LM, DVT- now afebrile in 24hrs -u/a mild pyuria (wbc 5-10) -sp cx pending -venous duplex p -Bcx p -CXR 03/05: There is suggestion of slightly increased pleural fluid on the left. Hazy opacity in the right lung is stable Acute hypoxic resp failure, - combination of COPD exacerbation and PNA; worsened 02/18; Intubated 02/26 -venous duplex 02/16 no DVT PNA- SGS(-), Cx Neg; s/p Rx - SP bronch 02/26 (collected 02/26, however received on the lab 03/03??): BAL cx NTD -CXR 03/03: Stable bilateral interstitial and alveolar opacities, probable small left pleural effusion, elevation left hemidiaphragm -CXR 03/01: Patchy, mainly interstitial appearing disease noted bilaterally. Findings may be due to infiltrates or CHF - CT Chest 02/24: Near-complete occlusion of the left mainstem bronchus and proximal lobar bronchi, probably by debris. Extensive resultant atelectasis and consolidation of nearly the entire left lung. Less extensive consolidation within the right lung, nonspecific as regards etiology, likely secondary to pneumonia or edema -CXR 02/23: Better inspiration currently. Overall improved aeration of the right mid and lower lung, with decreased dense consolidation and is still fairly extensive parenchymal opacity. The right pleural space is clear. Large left pleural effusion is again demonstrated, and is increased from the prior exam. There is also increasing consolidation of the residual aerated lung in the left upper hemithorax. -CXR: Limited evaluation due to significant degree of soft tissue attenuation. Suspect pneumonia at the right lung base. -Cr Ag serum neg; cocci ab pending L pleural effusion - improved Leukocytosis, mild - recurrent, resolved (on steroids) Fever x1 COPD on home O2 Hx of Cdiff DM2 Chronic abd pain hx of MRSA bacteremia 07/2015 TCA allergy Full Code fibromyalgia, HTN, HLD, R breast cancer,Tobacco abuse (stopped 4 years ago), Anxiety, AOCD Plan: -f/u Repeat infectious w/u : Blood, urine and sp cx f/u Venous duplex -Continue to monitor off abx, unless persistent/higher fever, HD unstable -s/p 14d IV Meropenem 03/03 -s/p 14 d IV Vancomycin 03/01 -s/p 6d prophylactic PO vanco 02/21 -s/p 4 d Cefepime 02/18 -f/u Cocci ab , BAL cx -Monitor CBC/BMP, temperatures -Aspiration precautions - vent support, wean as tolerated Discussed with RN. Subjective Allergies: Coded Allergies: TETRACYCLINE (Unverified Allergy, Unknown, 07/24/14) Subjective afebrile in 24hrs, off abx u/a mild pyuria no leukocytosis BAL cx NTD Objective Vital Signs Last 24 Hour Vital Signs Date Time Temp Pulse Resp B/P (MAP) Pulse Ox O2 Delivery O2 Flow Rate FiO2 03/07/17 08:39 72 146/66 03/07/17 08:39 74 146/66 03/07/17 08:38 146/66 03/07/17 07:23 74 19 30 03/07/17 07:00 71 17 144/61 97 Mechanical Ventilator 30 03/07/17 06:00 75 16 121/61 97 Mechanical Ventilator 30 03/07/17 05:47 131/52 03/07/17 05:42 76 23 30 03/07/17 05:00 81 16 90/40 94 Mechanical Ventilator 30 03/07/17 04:00 63 03/07/17 04:00 30 03/07/17 04:00 98.0 59 16 113/44 99 Mechanical Ventilator 30 03/07/17 03:10 88 16 30 03/07/17 03:00 60 16 116/47 99 Mechanical Ventilator 30 03/07/17 02:00 61 16 97/44 99 Mechanical Ventilator 30 03/07/17 01:00 69 16 139/60 98 Mechanical Ventilator 30 03/07/17 01:00 81 17 30 03/07/17 00:30 131/58 03/07/17 00:00 30 03/07/17 00:00 76 03/07/17 00:00 97.9 73 17 138/57 98 Mechanical Ventilator 30 03/06/17 23:00 69 16 123/65 98 Mechanical Ventilator 30 03/06/17 22:32 84 16 30 03/06/17 22:00 66 16 93/44 98 Mechanical Ventilator 30 03/06/17 21:15 82 20 30 10/27/17 21:15 72 119/52 03/06/17 21:00 70 16 119/52 97 Mechanical Ventilator 30 03/06/17 20:00 73 03/06/17 20:00 98.1 72 18 102/48 98 Mechanical Ventilator 30 03/06/17 20:00 98.7 03/06/17 20:00 30 03/06/17 19:41 76 21 30 03/06/17 19:00 75 21 113/82 98 Mechanical Ventilator 30 03/06/17 18:00 30 03/06/17 18:00 100/45 03/06/17 18:00 100/45 03/06/17 18:00 64 18 100/45 94 Mechanical Ventilator 30 03/06/17 17:46 65 16 30 03/06/17 17:00 71 17 128/54 95 Mechanical Ventilator 30 03/06/17 16:00 69 03/06/17 16:00 99.6 69 18 120/57 95 Mechanical Ventilator 30 03/06/17 16:00 30 03/06/17 15:11 71 26 30 03/06/17 15:00 70 20 112/50 95 Mechanical Ventilator 30 03/06/17 14:00 70 19 80/37 95 Mechanical Ventilator 30 03/06/17 13:00 30 03/06/17 13:00 69 21 136/57 92 Mechanical Ventilator 30 03/06/17 12:43 66 20 30 03/06/17 12:26 125/48 03/06/17 12:00 65 21 125/48 97 Mechanical Ventilator 30 03/06/17 11:12 68 03/06/17 11:04 75 18 30 03/06/17 11:00 30 03/06/17 11:00 67 21 123/57 96 Mechanical Ventilator 30 03/06/17 10:00 77 19 167/65 96 Mechanical Ventilator 30 03/06/17 09:48 79 138/52 03/06/17 09:48 78 138/52 03/06/17 09:48 138/52 03/06/17 09:46 99.8 03/06/17 09:33 30 03/06/17 09:24 94 03/06/17 09:20 72 16 30 Height (Feet): 5 Height (Inches): 7.00 Weight (Pounds): 109 Objective General Appearance: lethargic but arousable HEENT: PERRL, ETT in place, atraumatic head Neck: supple Respiratory: scattered wheezing Cardiovascular: regular rate, rhythmm, no murmurs Gastrointestinal: normal inspection, non tender, no mass, non-distended Musculoskeletal: L>R arm swelling and erythema Skin: no lesions or rashes Microbiology Date/Time Source Procedure Growth Status 03/06/17 10:00 Sputum Gram Stain - Final Resulted 03/06/17 10:00 Sputum Sputum Culture Pending Resulted Laboratory Tests Test 03/06/17 10:00 03/07/17 05:25 Urine Color Pale yellow Urine Appearance Cloudy Urine pH 8 (4.5-8.0) Urine Specific [place] 1.015 (1.005-1.035) Urine Protein 2+ (NEGATIVE) H Urine Glucose (UA) Negative (NEGATIVE) Urine Ketones Negative (NEGATIVE) Urine Occult Blood 5+ (NEGATIVE) H Urine Nitrite Negative (NEGATIVE) Urine Bilirubin Negative (NEGATIVE) Urine Urobilinogen Normal MG/DL (0.0-1.0) Urine Leukocyte Esterase 3+ (NEGATIVE) H Urine RBC 5-10 /HPF (0 - 2) H Urine WBC 5-10 /HPF (0 - 2) H Urine Squamous Epithelial Cells Few /LPF (NONE/OCC) Urine Amorphous Sediment Many /LPF (NONE) H Urine Bacteria Few /HPF (NONE) Urine Yeast Few /HPF (NONE) H White Blood Count 8.8 K/UL (4.8-10.8) Red Blood Count 2.74 M/UL (4.20-5.40) L Hemoglobin 9.4 G/DL (12.0-16.0) L Hematocrit 27.8 % (37.0-47.0) L Mean Corpuscular Volume 101 FL (80-99) H Mean Corpuscular Hemoglobin 34.1 PG (27.0-31.0) H Mean Corpuscular Hemoglobin Concent 33.7 G/DL (32.0-36.0) Red Cell Distribution Width 12.3 % (11.6-14.8) Platelet Count 219 K/UL (150-450) Mean Platelet Volume 8.0 FL (6.5-10.1) Neutrophils (%) (Auto) 59.0 % (45.0-75.0) Lymphocytes (%) (Auto) 32.1 % (20.0-45.0) Monocytes (%) (Auto) 8.3 % (1.0-10.0) Eosinophils (%) (Auto) 0.3 % (0.0-3.0) Basophils (%) (Auto) 0.3 % (0.0-2.0) Sodium Level 145 MMOL/L (136-145) Potassium Level 3.3 MMOL/L (3.5-5.1) L Chloride Level 108 MMOL/L (98-107) H Carbon Dioxide Level 28 MMOL/L (21-32) Anion Gap 9 mmol/L (5-15) Blood Urea Nitrogen 44 mg/dL (7-18) H Creatinine 0.7 MG/DL (0.55-1.30) Estimat Glomerular Filtration Rate mL/min (>60) Glucose Level 121 MG/DL (74-106) H Calcium Level 10.1 MG/DL (8.5-10.1) Phosphorus Level 2.5 MG/DL (2.5-4.9) Magnesium Level 2.4 MG/DL (1.8-2.4) Total Bilirubin 0.5 MG/DL (0.2-1.0) Aspartate Amino Transf (AST/SGOT) 15 U/L (15-37) Alanine Aminotransferase (ALT/SGPT) 19 U/L (12-78) Alkaline Phosphatase 47 U/L (46-116) Total Protein 6.7 G/DL (6.4-8.2) Albumin 2.8 G/DL (3.4-5.0) L Globulin 3.9 g/dL Albumin/Globulin Ratio 0.7 (1.0-2.7) L Current Medications Medications (Trade) Dose Ordered Sig/Wilner Route PRN Reason Start Time Stop Time Status Last Admin Dose Admin Acetaminophen (Tylenol) 650 mg Q4H PRN ORAL Fever/Headache/Mild Pain 03/07/17 08:00 04/06/17 07:59 Allopurinol (Zyloprim) 100 mg DAILY ORAL 03/02/17 09:00 04/01/17 08:59 03/07/17 08:37 Amlodipine Besylate (Norvasc) 10 mg DAILY ORAL 03/04/17 12:00 04/03/17 11:59 03/07/17 08:39 Aspirin (Ecotrin) 81 mg DAILY ORAL 02/26/17 09:00 03/19/17 08:59 03/07/17 08:37 Bisacodyl (Dulcolax) 10 mg DAILYPRN PRN RECTAL Constipation Third Line Agent 02/25/17 15:15 03/27/17 15:14 Carvedilol (Coreg) 25 mg Q12HR ORAL 03/05/17 21:00 04/04/17 20:59 03/07/17 08:39 Clonazepam (KlonoPIN) 1 mg DAILY ORAL 03/01/17 09:00 03/08/17 08:59 03/07/17 08:40 Dextrose (Dextrose 50%) STAT PRN IV Hypoglycemia 02/25/17 15:15 03/17/17 15:14 Escitalopram Oxalate (Lexapro) 10 mg DAILY ORAL 02/26/17 09:00 03/20/17 08:59 03/07/17 08:37 Haloperidol Lactate (Haldol) 2 mg Q4H PRN IM Agitation 02/25/17 15:15 03/27/17 15:14 02/25/17 22:38 Hydralazine HCl (Apresoline) 10 mg Q6HR NG 03/05/17 12:00 04/04/17 11:59 03/07/17 05:47 Hydralazine HCl (Apresoline) 25 mg Q4H PRN ORAL SBP > 160mmHg 02/25/17 15:15 03/27/17 15:14 03/04/17 08:30 Lidocaine (Xylocaine 1% MPF 5ml) 10 ml Q4H PRN HHN cough 02/25/17 15:15 03/19/17 15:14 Lisinopril (Prinivil) 20 mg BID ORAL 02/25/17 18:00 03/27/17 17:59 03/07/17 08:38 Metoclopramide HCl (Reglan) 5 mg Q8HR IVP 03/04/17 22:00 04/03/17 21:59 03/07/17 05:47 Morphine Sulfate (Morphine Sulfate) 4 mg Q4H PRN IVP Breakthrough Pain 02/26/17 11:00 03/07/17 10:59 02/27/17 01:01 Ondansetron HCl (Zofran) 4 mg Q6H PRN IVP Nausea & Vomiting 02/25/17 15:15 03/17/17 15:14 Pantoprazole (Protonix) 40 mg DAILY IV 02/27/17 09:00 03/29/17 08:59 03/07/17 08:36 Polyethylene Glycol (Miralax) 17 gm DAILYPRN PRN ORAL Constipation First line agent 02/25/17 15:15 03/17/17 15:14 Pravastatin Sodium (Pravachol) 20 mg BEDTIME ORAL 02/25/17 21:00 03/18/17 20:59 03/06/17 21:14 Prednisone (predniSONE) 40 mg DAILY ORAL 02/26/17 09:00 03/28/17 08:59 03/07/17 08:38 Pregabalin (Lyrica) 150 mg THREE TIMES A DAY ORAL 02/25/17 18:00 03/18/17 12:59 03/07/17 08:42 Promethazine HCl/ Codeine (Phenergan with Codeine) 5 ml Q4H PRN ORAL UNRELIEVED COUGH 02/25/17 15:15 03/18/17 15:14 Ranitidine HCl (Zantac) 150 mg QPM ORAL 02/25/17 16:30 03/27/17 16:29 03/06/17 16:51 Alyse Traylor M.D. Mar 07, 2017 09:13
--- NOTE | 2017-03-07 11:24 | Diagnostic Imaging Report ---
Indication: DYSPNEA Technique: One view of the chest Comparison: 03/06/2017 Findings: Pleural fluid on the left has decreased somewhat. Perihilar interstitial prominence is demonstrated, may be slightly increased from prior exam. Stable satisfactory positions of endotracheal and nasogastric tubes Impression: Improved left-sided pleural effusion, over one day Equivocal new or increased perihilar interstitial congestion bilaterally
--- NOTE | 2017-03-07 11:45 | General Progress Note ---
Assessment/Plan Status: stable Assessment/Plan Status: Acute renal failure- etiology? 1900 cc urine out after insertion of shi--JOSE MIGUEL: Moderate right hydronephrosis. Acute on Chronic respiratory failure- day 2 intubation HTN High Cholestrol Pneumonia COPD , exac. Diastolic CHF, Mod MR h/o C dif colitis h/o Breast Ca Anemia Pulm HTN Moderate Plan: main issue: WEANING adjust BP meds K and Phos supplement as needed pulm support Allopurinol continue Shi- Avoid nephrotoxics JOSE MIGUEL: Moderate right hydronephrosis. Subjective ROS Limited/Unobtainable: Yes Allergies: Coded Allergies: TETRACYCLINE (Unverified Allergy, Unknown, 07/24/14) Objective Last 24 Hour Vital Signs Date Time Temp Pulse Resp B/P (MAP) Pulse Ox O2 Delivery O2 Flow Rate FiO2 03/07/17 11:00 68 136/67 Simple Mask 5.0 03/07/17 10:00 71 24 138/56 97 Simple Mask 5.0 03/07/17 09:16 97 03/07/17 09:14 70 30 03/07/17 09:00 98.7 72 28 141/58 98 Mechanical Ventilator 30 03/07/17 08:39 72 146/66 03/07/17 08:39 74 146/66 03/07/17 08:38 146/66 03/07/17 08:00 72 03/07/17 08:00 72 25 149/66 97 Mechanical Ventilator 30 03/07/17 08:00 30 03/07/17 07:23 74 19 30 03/07/17 07:00 71 17 144/61 97 Mechanical Ventilator 30 03/07/17 06:00 75 16 121/61 97 Mechanical Ventilator 30 03/07/17 05:47 131/52 03/07/17 05:42 76 23 30 03/07/17 05:00 81 16 90/40 94 Mechanical Ventilator 30 03/07/17 04:00 63 03/07/17 04:00 30 03/07/17 04:00 98.0 59 16 113/44 99 Mechanical Ventilator 30 03/07/17 03:10 88 16 30 03/07/17 03:00 60 16 116/47 99 Mechanical Ventilator 30 03/07/17 02:00 61 16 97/44 99 Mechanical Ventilator 30 03/07/17 01:00 69 16 139/60 98 Mechanical Ventilator 30 03/07/17 01:00 81 17 30 03/07/17 00:30 131/58 03/07/17 00:00 30 03/07/17 00:00 76 03/07/17 00:00 97.9 73 17 138/57 98 Mechanical Ventilator 30 03/06/17 23:00 69 16 123/65 98 Mechanical Ventilator 30 03/06/17 22:32 84 16 30 03/06/17 22:00 66 16 93/44 98 Mechanical Ventilator 30 03/06/17 21:15 82 20 30 03/06/17 21:15 72 119/52 03/06/17 21:00 70 16 119/52 97 Mechanical Ventilator 30 03/06/17 20:00 73 03/06/17 20:00 98.1 72 18 102/48 98 Mechanical Ventilator 30 03/06/17 20:00 98.7 03/06/17 20:00 30 03/06/17 19:41 76 21 30 03/06/17 19:00 75 21 113/82 98 Mechanical Ventilator 30 03/06/17 18:00 30 03/06/17 18:00 100/45 03/06/17 18:00 100/45 03/06/17 18:00 64 18 100/45 94 Mechanical Ventilator 30 03/06/17 17:46 65 16 30 03/06/17 17:00 71 17 128/54 95 Mechanical Ventilator 30 03/06/17 16:00 69 03/06/17 16:00 99.6 69 18 120/57 95 Mechanical Ventilator 30 03/06/17 16:00 30 03/06/17 15:11 71 26 30 03/06/17 15:00 70 20 112/50 95 Mechanical Ventilator 30 03/06/17 14:00 70 19 80/37 95 Mechanical Ventilator 30 03/06/17 13:00 30 03/06/17 13:00 69 21 136/57 92 Mechanical Ventilator 30 03/06/17 12:43 66 20 30 03/06/17 12:26 125/48 03/06/17 12:00 65 21 125/48 97 Mechanical Ventilator 30 Intake and Output 03/07/17 03/08/17 19:00 07:00 Intake Total 120 ml Output Total 280 ml Balance -160 ml Tube Feeding 120 ml Output Urine Total 280 ml Laboratory Tests 03/07/17 05:25: White Blood Count 8.8, Red Blood Count 2.74L, Hemoglobin 9.4L, Hematocrit 27.8L , Mean Corpuscular Volume 101H, Mean Corpuscular Hemoglobin 34.1H, Mean Corpuscular Hemoglobin Concent 33.7, Red Cell Distribution Width 12.3, Platelet Count 219, Mean Platelet Volume 8.0, Neutrophils (%) (Auto) 59.0, Lymphocytes (% ) (Auto) 32.1, Monocytes (%) (Auto) 8.3, Eosinophils (%) (Auto) 0.3, Basophils ( %) (Auto) 0.3, Sodium Level 145, Potassium Level 3.3L, Chloride Level 108H, Carbon Dioxide Level 28, Anion Gap 9, Blood Urea Nitrogen 44H, Creatinine 0.7, Estimat Glomerular Filtration Rate , Glucose Level 121H, Calcium Level 10.1, Phosphorus Level 2.5, Magnesium Level 2.4, Total Bilirubin 0.5, Aspartate Amino Transf (AST/SGOT) 15, Alanine Aminotransferase (ALT/SGPT) 19, Alkaline Phosphatase 47, Total Protein 6.7, Albumin 2.8L, Globulin 3.9, Albumin/Globulin Ratio 0.7L 03/07/17 09:30: Arterial Blood pH 7.470H, Arterial Blood Partial Pressure CO2 43.5, Arterial Blood Partial Pressure O2 99.5, Arterial Blood HCO3 30.9H, Arterial Blood Oxygen Saturation 96.9, Arterial Blood Base Excess 6.6, Scooby Test Positive Height (Feet): 5 Height (Inches): 7.00 Weight (Pounds): 109 General Appearance: no apparent distress, other - remains intubated Objective no edema- no change in PE GENARO DUARTE Mar 07, 2017 11:45
[2017-03-07] MEDS: KCl 10% 40mEq/30ml liquid NG SCH ×2 (12:23→17:59)
--- NOTE | 2017-03-07 14:50 | Internal Med Progress Note ---
Subjective Date of Service: Mar 07, 2017 Physician Name Zeb Fuentes Attending Physician Jun Cedillo MD Current Medications Medications (Trade) Dose Ordered Sig/Wilner Route PRN Reason Start Time Stop Time Status Last Admin Dose Admin Acetaminophen (Tylenol) 650 mg Q4H PRN ORAL Fever/Headache/Mild Pain 03/07/17 08:00 04/06/17 07:59 03/07/17 12:25 Allopurinol (Zyloprim) 100 mg DAILY ORAL 03/02/17 09:00 04/01/17 08:59 03/07/17 08:37 Amlodipine Besylate (Norvasc) 10 mg DAILY ORAL 03/04/17 12:00 04/03/17 11:59 03/07/17 08:39 Aspirin (Ecotrin) 81 mg DAILY ORAL 02/26/17 09:00 03/19/17 08:59 03/07/17 08:37 Bisacodyl (Dulcolax) 10 mg DAILYPRN PRN RECTAL Constipation Third Line Agent 02/25/17 15:15 03/27/17 15:14 Carvedilol (Coreg) 25 mg Q12HR ORAL 03/05/17 21:00 04/04/17 20:59 03/07/17 08:39 Clonazepam (KlonoPIN) 1 mg DAILY ORAL 03/01/17 09:00 03/08/17 08:59 03/07/17 08:40 Dextrose (Dextrose 50%) STAT PRN IV Hypoglycemia 02/25/17 15:15 03/17/17 15:14 Escitalopram Oxalate (Lexapro) 10 mg DAILY ORAL 02/26/17 09:00 03/20/17 08:59 03/07/17 08:37 Haloperidol Lactate (Haldol) 2 mg Q4H PRN IM Agitation 02/25/17 15:15 03/27/17 15:14 02/25/17 22:38 Hydralazine HCl (Apresoline) 10 mg Q6HR NG 03/05/17 12:00 04/04/17 11:59 03/07/17 12:25 Hydralazine HCl (Apresoline) 25 mg Q4H PRN ORAL SBP > 160mmHg 02/25/17 15:15 03/27/17 15:14 03/04/17 08:30 Lidocaine (Xylocaine 1% MPF 5ml) 10 ml Q4H PRN HHN cough 02/25/17 15:15 03/19/17 15:14 Lisinopril (Prinivil) 20 mg BID ORAL 02/25/17 18:00 03/27/17 17:59 03/07/17 08:38 Metoclopramide HCl (Reglan) 5 mg Q8HR IVP 03/04/17 22:00 04/03/17 21:59 03/07/17 14:28 Ondansetron HCl (Zofran) 4 mg Q6H PRN IVP Nausea & Vomiting 02/25/17 15:15 03/17/17 15:14 Pantoprazole (Protonix) 40 mg DAILY IV 02/27/17 09:00 03/29/17 08:59 03/07/17 08:36 Polyethylene Glycol (Miralax) 17 gm DAILYPRN PRN ORAL Constipation First line agent 02/25/17 15:15 03/17/17 15:14 Potassium Chloride (KCl 10% 40mEq Oral solution) 40 meq TWICE A DAY NG 03/07/17 12:00 04/06/17 11:59 03/07/17 12:23 Pravastatin Sodium (Pravachol) 20 mg BEDTIME ORAL 02/25/17 21:00 03/18/17 20:59 03/06/17 21:14 Prednisone (predniSONE) 40 mg DAILY ORAL 02/26/17 09:00 03/28/17 08:59 03/07/17 08:38 Pregabalin (Lyrica) 150 mg THREE TIMES A DAY ORAL 02/25/17 18:00 03/18/17 12:59 03/07/17 12:28 Promethazine HCl/ Codeine (Phenergan with Codeine) 5 ml Q4H PRN ORAL UNRELIEVED COUGH 02/25/17 15:15 03/18/17 15:14 Ranitidine HCl (Zantac) 150 mg QPM ORAL 02/25/17 16:30 03/27/17 16:29 03/06/17 16:51 Allergies: Coded Allergies: TETRACYCLINE (Unverified Allergy, Unknown, 07/24/14) ROS Limited/Unobtainable: Yes Subjective 76 YO F admitted with shortness of breath. Now pneumonia. Cover for Int Med- Dr Cedillo. ICU. CT chest=occlusion left mainstem bronchus-Intubated 02/25/17; extubated 03/07/17. Tolerating simple mask Objective Last Vital Signs Date Time Temp Pulse Resp B/P (MAP) Pulse Ox O2 Delivery O2 Flow Rate FiO2 03/07/17 13:24 98.6 03/07/17 12:25 163/66 03/07/17 11:00 68 Simple Mask 5.0 03/07/17 10:00 24 97 03/07/17 09:00 30 Laboratory Tests Test 03/07/17 05:25 03/07/17 09:30 White Blood Count 8.8 K/UL (4.8-10.8) Red Blood Count 2.74 M/UL (4.20-5.40) L Hemoglobin 9.4 G/DL (12.0-16.0) L Hematocrit 27.8 % (37.0-47.0) L Mean Corpuscular Volume 101 FL (80-99) H Mean Corpuscular Hemoglobin 34.1 PG (27.0-31.0) H Mean Corpuscular Hemoglobin Concent 33.7 G/DL (32.0-36.0) Red Cell Distribution Width 12.3 % (11.6-14.8) Platelet Count 219 K/UL (150-450) Mean Platelet Volume 8.0 FL (6.5-10.1) Neutrophils (%) (Auto) 59.0 % (45.0-75.0) Lymphocytes (%) (Auto) 32.1 % (20.0-45.0) Monocytes (%) (Auto) 8.3 % (1.0-10.0) Eosinophils (%) (Auto) 0.3 % (0.0-3.0) Basophils (%) (Auto) 0.3 % (0.0-2.0) Sodium Level 145 MMOL/L (136-145) Potassium Level 3.3 MMOL/L (3.5-5.1) L Chloride Level 108 MMOL/L (98-107) H Carbon Dioxide Level 28 MMOL/L (21-32) Anion Gap 9 mmol/L (5-15) Blood Urea Nitrogen 44 mg/dL (7-18) H Creatinine 0.7 MG/DL (0.55-1.30) Estimat Glomerular Filtration Rate mL/min (>60) Glucose Level 121 MG/DL (74-106) H Calcium Level 10.1 MG/DL (8.5-10.1) Phosphorus Level 2.5 MG/DL (2.5-4.9) Magnesium Level 2.4 MG/DL (1.8-2.4) Total Bilirubin 0.5 MG/DL (0.2-1.0) Aspartate Amino Transf (AST/SGOT) 15 U/L (15-37) Alanine Aminotransferase (ALT/SGPT) 19 U/L (12-78) Alkaline Phosphatase 47 U/L (46-116) Total Protein 6.7 G/DL (6.4-8.2) Albumin 2.8 G/DL (3.4-5.0) L Globulin 3.9 g/dL Albumin/Globulin Ratio 0.7 (1.0-2.7) L Arterial Blood pH 7.470 (7.350-7.450) Arterial Blood Partial Pressure CO2 43.5 mmHg (35.0-45.0) Arterial Blood Partial Pressure O2 99.5 mmHg (75.0-100.0) Arterial Blood HCO3 30.9 mmol/L (22.0-26.0) H Arterial Blood Oxygen Saturation 96.9 % (92.0-98.0) Arterial Blood Base Excess 6.6 Scooby Test Positive Microbiology Date/Time Source Procedure Growth Status 03/06/17 10:15 Blood Blood Culture - Preliminary NO GROWTH AFTER 24 HOURS Resulted 03/06/17 10:00 Sputum Gram Stain - Final Resulted 03/06/17 10:00 Sputum Sputum Culture Pending Resulted 03/06/17 10:00 Urine,Clean Catch Urine Culture - Preliminary NO GROWTH Resulted Intake and Output 03/07/17 03/08/17 19:00 07:00 Intake Total 150 ml Output Total 320 ml Balance -170 ml Tube Feeding 150 ml Output Urine Total 320 ml Objective General Appearance: WD/WN, no apparent distress, alert EENT: PERRL/EOMI, normal ENT inspection, TMs normal Neck: non-tender, normal alignment, supple, normal inspection Cardiovascular: normal peripheral pulses, normal rate, regular rhythm, no gallop/murmur, no JVD Respiratory/Chest: Mech Vent; chest wall non-tender, respiratory distress, decreased breath sounds, crackles/rales, rhonchi - bilaterally, expiratory wheezing Abdomen: normal bowel sounds, non tender, soft, no organomegaly, no mass Extremities: normal range of motion Neurologic: clinical staff educator II-XII 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 (8) Pneumonia Assessment & Plan: Continue Meropenem and vanco. See ID and pulmonary notes. (9) COPD exacerbation Assessment & Plan: Continue IV solumedrol and xopenex/atrovent nebs. See pulmonary note. (10) Diastolic CHF Assessment & Plan: See cardiology note. 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 S/P intubation to aerate left lung-see pulmonary note. D/W pulmonary Dr Hernandez. Extubated 03/07 (14) Respiratory failure requiring intubation Assessment & Plan: Extubated 03/07/17; tolerating simple mask Status: progressing ZEB FUENTES Mar 07, 2017 14:49
[2017-03-07] MEDS: Haloperidol 5mg/ml Inj IM PRN (15:04)
[2017-03-08] VITALS (20 sets, daily range): BP systolic 83–149; BP diastolic 46–74
[2017-03-08 05:28] LABS: HEMATOCRIT 29.3 % (37.0-47.0); HEMOGLOBIN 9.9 G/DL (12.0-16.0); MEAN CORPUSCULAR VOLUME 102 FL (80-99); PLATELET COUNT 93 K/UL (150-450); RED BLOOD COUNT 2.87 M/UL (4.20-5.40); RED CELL DISTRIBUTION WIDTH 12.7 % (11.6-14.8); WHITE BLOOD COUNT 4.7 K/UL (4.8-10.8)
[2017-03-08] MEDS: HydrALAZINE 10mg Tab NG SCH ×4 (06:00→17:36)
[2017-03-08] MEDS: Metoclopramide 10mg/2ml Inj IVP SCH ×3 (06:00→22:43)
[2017-03-08 06:18] LABS: ALANINE AMINOTRANSFERASE 19 U/L (12-78); ALBUMIN 2.8 G/DL (3.4-5.0); ALBUMIN/GLOBULIN RATIO 0.8 (1.0-2.7); ALKALINE PHOSPHATASE 48 U/L (46-116); ANION GAP 9 mmol/L (5-15); ASPARTATE AMINO TRANSFERASE 14 U/L (15-37); BILIRUBIN,TOTAL 0.4 MG/DL (0.2-1.0); BLOOD UREA NITROGEN 39 mg/dL (7-18); CALCIUM 9.5 MG/DL (8.5-10.1); CARBON DIOXIDE 26 MMOL/L (21-32); CHLORIDE 108 MMOL/L (98-107); CREATININE 0.6 MG/DL (0.55-1.30); PHOSPHORUS 3.3 MG/DL (2.5-4.9); POTASSIUM 4.9 MMOL/L (3.5-5.1); SODIUM 143 MMOL/L (136-145)
--- NOTE | 2017-03-08 08:41 | Pulmonolgy Critical Care Note ---
Critical Care - Asmt/Plan Problems: (1) Acute and chronic respiratory failure ([id number]) (2) COPD (chronic obstructive pulmonary disease) (3) Right middle lobe pneumonia (4) Collapse of left lung Respiratory: monitor respiratory rate, adjust FIO2 Cardiac: continue to monitor HR/BP Renal: F/U I&O, check electrolytes Infectious Disease: check cultures, continue antibiotics Gastrointestinal: continue feedings/current rate, other - swallow study Endocrine: monitor blood sugar, check HgA1C, continue sliding scale insulin Hematologic: transfuse if hgb<8.5 Neurologic: PRN Ativan, PRN Morphine, keep patient comfortable Prophylaxis: Protonix, Heparin Notes Reviewed: repairer switchgear, cardio, renal Discussed with: nurses, consultants, skilled nursing case managerorder processing manager - Objective Last 24 Hour Vital Signs Date Time Temp Pulse Resp B/P (MAP) Pulse Ox O2 Delivery O2 Flow Rate FiO2 03/08/17 07:06 98 Nasal Cannula 3.0 32 03/08/17 07:06 Nasal Cannula 3.0 32 03/08/17 07:00 71 20 134/61 97 Nasal Cannula 2.0 03/08/17 06:00 127/60 03/08/17 06:00 68 23 133/61 100 Nasal Cannula 2.0 03/08/17 05:00 69 22 127/60 99 Nasal Cannula 2.0 03/08/17 04:00 98.3 64 27 137/56 97 Nasal Cannula 2.0 03/08/17 04:00 65 03/08/17 03:00 60 19 120/51 99 Nasal Cannula 2.0 03/08/17 02:00 61 19 110/51 100 Nasal Cannula 2.0 03/08/17 01:00 61 22 113/48 99 Nasal Cannula 2.0 03/08/17 00:00 100/46 03/08/17 00:00 68 03/08/17 00:00 97.9 68 22 102/46 99 Nasal Cannula 2.0 03/07/17 23:00 63 21 102/46 99 Nasal Cannula 2.0 03/07/17 22:00 65 24 100/47 98 Nasal Cannula 2.0 03/07/17 21:00 65 23 99/46 99 Nasal Cannula 2.0 03/07/17 20:58 65 99/48 03/07/17 20:00 98.3 65 20 103/48 97 Nasal Cannula 2.0 03/07/17 20:00 65 03/07/17 19:06 98 Nasal Cannula 2.0 28 03/07/17 19:06 Nasal Cannula 2.0 28 03/07/17 19:00 66 33 126/55 98 Nasal Cannula 2.0 03/07/17 19:00 98.2 03/07/17 18:00 102/52 03/07/17 18:00 102/52 03/07/17 18:00 68 26 110/49 99 Nasal Cannula 2.0 03/07/17 17:00 98.2 75 26 105/50 99 Nasal Cannula 2.0 03/07/17 16:00 82 23 85/42 97 Nasal Cannula 2.0 03/07/17 16:00 84 03/07/17 15:00 22 99/37 99 Simple Mask 5.0 03/07/17 14:00 19 141/72 99 Simple Mask 5.0 03/07/17 13:24 98.6 03/07/17 13:00 98.6 72 28 156/75 100 Simple Mask 5.0 03/07/17 12:25 163/66 03/07/17 12:00 81 03/07/17 12:00 24 144/58 100 Simple Mask 5.0 03/07/17 11:00 68 136/67 Simple Mask 5.0 03/07/17 10:05 97 Simple Mask 5.0 40 03/07/17 10:05 Simple Mask 5.0 40 03/07/17 10:00 Simple Mask 5.0 40 03/07/17 10:00 71 24 138/56 97 Simple Mask 5.0 03/07/17 09:16 97 03/07/17 09:14 70 30 03/07/17 09:00 98.7 72 28 141/58 98 Mechanical Ventilator 30 03/07/17 08:39 72 146/66 03/07/17 08:39 74 146/66 Status: awake Condition: critical, improving HEENT: atraumatic Neck: full ROM Lungs: clear Heart: HR/BP stable, HR/BP unstable Abdomen: feeding tube Extremities: no C/C/E, edema Decubiti: location Micro: Microbiology Date/Time Source Procedure Growth Status 03/06/17 11:50 Blood Blood Culture - Preliminary NO GROWTH AFTER 24 HOURS Resulted 03/06/17 10:15 Blood Blood Culture - Preliminary NO GROWTH AFTER 24 HOURS Resulted 03/06/17 10:00 Sputum Gram Stain - Final Resulted 03/06/17 10:00 Sputum Sputum Culture Pending Resulted 03/06/17 10:00 Urine,Clean Catch Urine Culture - Preliminary Resulted Accucheck: 124 Critical Care - Subjective ROS Limited/Unobtainable: No ICU Day: 10 Interval Events: tolerating extubation very well FI02: 32 Vent Support Breath Rate: 16 Vent Support Mode: CPAP Vent Tidal Volume: 500 Sputum Amount: Scant PEEP: 0.0 PIP: 10 Tube Feeding Amount: 30 CXR: no change ET-Tube: 8.0 ET Position: 21 Labs: Laboratory Tests Test 03/07/17 09:30 03/08/17 05:05 Arterial Blood pH 7.470 (7.350-7.450) Arterial Blood Partial Pressure CO2 43.5 mmHg (35.0-45.0) Arterial Blood Partial Pressure O2 99.5 mmHg (75.0-100.0) Arterial Blood HCO3 30.9 mmol/L (22.0-26.0) H Arterial Blood Oxygen Saturation 96.9 % (92.0-98.0) Arterial Blood Base Excess 6.6 Scooby Test Positive White Blood Count 4.7 K/UL (4.8-10.8) L Red Blood Count 2.87 M/UL (4.20-5.40) L Hemoglobin 9.9 G/DL (12.0-16.0) L Hematocrit 29.3 % (37.0-47.0) L Mean Corpuscular Volume 102 FL (80-99) H Mean Corpuscular Hemoglobin 34.5 PG (27.0-31.0) H Mean Corpuscular Hemoglobin Concent 33.9 G/DL (32.0-36.0) Red Cell Distribution Width 12.7 % (11.6-14.8) Platelet Count 93 K/UL (150-450) #L Mean Platelet Volume 8.1 FL (6.5-10.1) Neutrophils (%) (Auto) % (45.0-75.0) Lymphocytes (%) (Auto) % (20.0-45.0) Monocytes (%) (Auto) % (1.0-10.0) Eosinophils (%) (Auto) % (0.0-3.0) Basophils (%) (Auto) % (0.0-2.0) Differential Total Cells Counted 100 Neutrophils % (Manual) 76 % (45-75) H Lymphocytes % (Manual) 21 % (20-45) Monocytes % (Manual) 3 % (1-10) Eosinophils % (Manual) 0 % (0-3) Basophils % (Manual) 0 % (0-2) Band Neutrophils 0 % (0-8) Platelet Estimate Decreased L Platelet Morphology Normal Sodium Level 143 MMOL/L (136-145) Potassium Level 4.9 MMOL/L (3.5-5.1) Chloride Level 108 MMOL/L (98-107) H Carbon Dioxide Level 26 MMOL/L (21-32) Anion Gap 9 mmol/L (5-15) Blood Urea Nitrogen 39 mg/dL (7-18) H Creatinine 0.6 MG/DL (0.55-1.30) Estimat Glomerular Filtration Rate mL/min (>60) Glucose Level 139 MG/DL (74-106) H Calcium Level 9.5 MG/DL (8.5-10.1) Phosphorus Level 3.3 MG/DL (2.5-4.9) Magnesium Level 2.2 MG/DL (1.8-2.4) Total Bilirubin 0.4 MG/DL (0.2-1.0) Aspartate Amino Transf (AST/SGOT) 14 U/L (15-37) L Alanine Aminotransferase (ALT/SGPT) 19 U/L (12-78) Alkaline Phosphatase 48 U/L (46-116) Total Protein 6.3 G/DL (6.4-8.2) L Albumin 2.8 G/DL (3.4-5.0) L Globulin 3.5 g/dL Albumin/Globulin Ratio 0.8 (1.0-2.7) L TWIN FONTANEZ Mar 08, 2017 08:41
[2017-03-08] MEDS: KCl 10% 40mEq/30ml liquid NG SCH ×2 (10:04→17:35)
[2017-03-08] MEDS: Aspirin EC 81mg tab ORAL SCH (10:05)
[2017-03-08] MEDS: Pantoprazole Inj IV SCH (10:05)
[2017-03-08] MEDS: Lyrica 75mg cap ORAL SCH ×3 (10:07→17:37)
[2017-03-08] MEDS: Carvedilol 25mg Tab ORAL SCH ×2 (10:07→22:43)
[2017-03-08] MEDS: Lisinopril 20mg tab ORAL SCH ×2 (10:08→17:36)
[2017-03-08] MEDS: Allopurinol 100mg Tab ORAL SCH (10:09)
--- NOTE | 2017-03-08 10:44 | Diagnostic Imaging Report ---
Clinical history: Acute dyspnea. Technique: Portable AP chest radiograph was obtained. Comparison: 03/07/17 Findings: There is improved inspiratory effort. There is otherwise no significant interval change in the interval, allowing for differences in technique and positioning. Impression: 1. Enteric tube is in the appropriate position. 2. Cardiomegaly with mild interstitial edema and trace bilateral pleural effusions, essentially stable or slightly improved compared to the prior examination. 3. Surgical bhavik overlying the right breast and right suprahilar region.
--- NOTE | 2017-03-08 11:53 | General Progress Note ---
Assessment/Plan Status: stable - from renal stand Status Narrative O2 well maintained on cannula Assessment/Plan Status: Acute renal failure- etiology? 1900 cc urine out after insertion of shi--JOSE MIGUEL: Moderate right hydronephrosis. Acute on Chronic respiratory failure- extubated now HTN High Cholestrol Pneumonia COPD , exac. Diastolic CHF, Mod MR h/o C dif colitis h/o Breast Ca Anemia Pulm HTN Moderate Plan: now extubated adjust BP meds K and Phos supplement as needed pulm support Allopurinol continue Shi- Avoid nephrotoxics JOSE MIGUEL: Moderate right hydronephrosis. Subjective ROS Limited/Unobtainable: No Allergies: Coded Allergies: TETRACYCLINE (Unverified Allergy, Unknown, 07/24/14) Objective Last 24 Hour Vital Signs Date Time Temp Pulse Resp B/P (MAP) Pulse Ox O2 Delivery O2 Flow Rate FiO2 03/08/17 11:46 137/74 03/08/17 11:00 68 22 137/74 97 Nasal Cannula 2.0 03/08/17 10:08 96 149/62 03/08/17 10:08 149/62 03/08/17 10:07 97 149/62 03/08/17 10:00 66 17 139/62 94 Nasal Cannula 2.0 03/08/17 08:00 61 03/08/17 08:00 97.8 64 19 134/56 98 Nasal Cannula 2.0 03/08/17 07:06 98 Nasal Cannula 3.0 32 03/08/17 07:06 Nasal Cannula 3.0 32 03/08/17 07:00 71 20 134/61 97 Nasal Cannula 2.0 03/08/17 06:00 127/60 03/08/17 06:00 68 23 133/61 100 Nasal Cannula 2.0 03/08/17 05:00 69 22 127/60 99 Nasal Cannula 2.0 03/08/17 04:00 98.3 64 27 137/56 97 Nasal Cannula 2.0 03/08/17 04:00 65 03/08/17 03:00 60 19 120/51 99 Nasal Cannula 2.0 03/08/17 02:00 61 19 110/51 100 Nasal Cannula 2.0 03/08/17 01:00 61 22 113/48 99 Nasal Cannula 2.0 03/08/17 00:00 100/46 03/08/17 00:00 68 03/08/17 00:00 97.9 68 22 102/46 99 Nasal Cannula 2.0 03/07/17 23:00 63 21 102/46 99 Nasal Cannula 2.0 03/07/17 22:00 65 24 100/47 98 Nasal Cannula 2.0 03/07/17 21:00 65 23 99/46 99 Nasal Cannula 2.0 03/07/17 20:58 65 99/48 03/07/17 20:00 98.3 65 20 103/48 97 Nasal Cannula 2.0 03/07/17 20:00 65 03/07/17 19:06 98 Nasal Cannula 2.0 28 03/07/17 19:06 Nasal Cannula 2.0 28 03/07/17 19:00 66 33 126/55 98 Nasal Cannula 2.0 03/07/17 19:00 98.2 03/07/17 18:00 102/52 03/07/17 18:00 102/52 03/07/17 18:00 68 26 110/49 99 Nasal Cannula 2.0 03/07/17 17:00 98.2 75 26 105/50 99 Nasal Cannula 2.0 03/07/17 16:00 82 23 85/42 97 Nasal Cannula 2.0 03/07/17 16:00 84 03/07/17 15:00 22 99/37 99 Simple Mask 5.0 03/07/17 14:00 19 141/72 99 Simple Mask 5.0 03/07/17 13:24 98.6 03/07/17 13:00 98.6 72 28 156/75 100 Simple Mask 5.0 03/07/17 12:25 163/66 03/07/17 12:00 81 03/07/17 12:00 24 144/58 100 Simple Mask 5.0 Intake and Output 03/08/17 03/09/17 19:00 07:00 Intake Total 120 ml Output Total 360 ml Balance -240 ml Tube Feeding 120 ml Output Urine Total 360 ml Laboratory Tests 03/08/17 05:05: White Blood Count 4.7L, Red Blood Count 2.87L, Hemoglobin 9.9L, Hematocrit 29.3L , Mean Corpuscular Volume 102H, Mean Corpuscular Hemoglobin 34.5H, Mean Corpuscular Hemoglobin Concent 33.9, Red Cell Distribution Width 12.7, Platelet Count 93#L, Mean Platelet Volume 8.1, Neutrophils (%) (Auto) , Lymphocytes (%) ( Auto) , Monocytes (%) (Auto) , Eosinophils (%) (Auto) , Basophils (%) (Auto) , Differential Total Cells Counted 100, Neutrophils % (Manual) 76H, Lymphocytes % (Manual) 21, Monocytes % (Manual) 3, Eosinophils % (Manual) 0, Basophils % ( Manual) 0, Band Neutrophils 0, Platelet Estimate DecreasedL, Platelet Morphology Normal, Sodium Level 143, Potassium Level 4.9, Chloride Level 108H, Carbon Dioxide Level 26, Anion Gap 9, Blood Urea Nitrogen 39H, Creatinine 0.6, Estimat Glomerular Filtration Rate , Glucose Level 139H, Calcium Level 9.5, Phosphorus Level 3.3, Magnesium Level 2.2, Total Bilirubin 0.4, Aspartate Amino Transf (AST/SGOT) 14L, Alanine Aminotransferase (ALT/SGPT) 19, Alkaline Phosphatase 48, Total Protein 6.3L, Albumin 2.8L, Globulin 3.5, Albumin/ Globulin Ratio 0.8L Height (Feet): 5 Height (Inches): 7.00 Weight (Pounds): 110 General Appearance: no apparent distress Cardiovascular: normal rate Respiratory/Chest: decreased breath sounds Abdomen: soft Objective no edema- no change in PE GENARO DUARTE Mar 08, 2017 11:53
[2017-03-08] MEDS: Morphine Sulfate 4mg/ml Inj IVP PRN ×3 (11:58→22:44)
--- NOTE | 2017-03-08 15:48 | Cardiology Progress Note ---
Assessment/Plan Assessment/Plan 1. Respiratory failure. 2. Chronic obstructive pulmonary disease exacerbation. 3. Questionable pneumonia. 4. History of mitral regurgitation of significant degree. 5. History of subdural hematomas and intracranial hemorrhage. 6. History of breast cancer. 7. Anemia. 8. History of Clostridium difficile colitis. 9. History of anxiety. 10. Sinus tachycardia secondary to above. 11. Htn 12. CHF acute diastolic 13. l m bronchus occlusion with debris 14. lung collapase 15 Hypotension resolved 16. alkalosis resolved extubated doing well labs reviewed bp ok today tele sinus alb seem ok mild azotemia Subjective Cardiovascular: Denies: chest pain, lightheadedness Respiratory: Denies: shortness of breath Gastrointestinal/Abdominal: Denies: abdomen distended Subjective extubated Objective Last 24 Hour Vital Signs Date Time Temp Pulse Resp B/P (MAP) Pulse Ox O2 Delivery O2 Flow Rate FiO2 03/08/17 14:00 67 21 149/64 96 Nasal Cannula 2.0 03/08/17 13:00 66 19 139/65 98 Nasal Cannula 2.0 03/08/17 12:00 97.4 67 22 133/62 97 Nasal Cannula 2.0 03/08/17 12:00 67 03/08/17 11:46 137/74 03/08/17 11:00 68 22 137/74 97 Nasal Cannula 2.0 03/08/17 10:08 96 149/62 03/08/17 10:08 149/62 03/08/17 10:07 97 149/62 03/08/17 10:00 66 17 139/62 94 Nasal Cannula 2.0 03/08/17 08:00 61 03/08/17 08:00 97.8 64 19 134/56 98 Nasal Cannula 2.0 03/08/17 07:06 98 Nasal Cannula 3.0 32 03/08/17 07:06 Nasal Cannula 3.0 32 03/08/17 07:00 71 20 134/61 97 Nasal Cannula 2.0 03/08/17 06:00 127/60 03/08/17 06:00 68 23 133/61 100 Nasal Cannula 2.0 03/08/17 05:00 69 22 127/60 99 Nasal Cannula 2.0 03/08/17 04:00 98.3 64 27 137/56 97 Nasal Cannula 2.0 03/08/17 04:00 65 03/08/17 03:00 60 19 120/51 99 Nasal Cannula 2.0 03/08/17 02:00 61 19 110/51 100 Nasal Cannula 2.0 03/08/17 01:00 61 22 113/48 99 Nasal Cannula 2.0 03/08/17 00:00 100/46 03/08/17 00:00 68 03/08/17 00:00 97.9 68 22 102/46 99 Nasal Cannula 2.0 03/07/17 23:00 63 21 102/46 99 Nasal Cannula 2.0 03/07/17 22:00 65 24 100/47 98 Nasal Cannula 2.0 03/07/17 21:00 65 23 99/46 99 Nasal Cannula 2.0 03/07/17 20:58 65 99/48 03/07/17 20:00 98.3 65 20 103/48 97 Nasal Cannula 2.0 03/07/17 20:00 65 03/07/17 19:06 98 Nasal Cannula 2.0 28 03/07/17 19:06 Nasal Cannula 2.0 28 03/07/17 19:00 66 33 126/55 98 Nasal Cannula 2.0 03/07/17 19:00 98.2 03/07/17 18:00 102/52 03/07/17 18:00 102/52 03/07/17 18:00 68 26 110/49 99 Nasal Cannula 2.0 03/07/17 17:00 98.2 75 26 105/50 99 Nasal Cannula 2.0 03/07/17 16:00 82 23 85/42 97 Nasal Cannula 2.0 03/07/17 16:00 84 General Appearance: no apparent distress, alert Cardiovascular: normal rate, regular rhythm Respiratory/Chest: lungs clear, normal breath sounds Abdomen: normal bowel sounds, non tender, soft Extremities: no swelling Intake and Output 03/08/17 03/09/17 19:00 07:00 Intake Total 240 ml Output Total 550 ml Balance -310 ml Tube Feeding 240 ml Output Urine Total 550 ml Laboratory Tests Test 03/08/17 05:05 White Blood Count 4.7 K/UL (4.8-10.8) L Red Blood Count 2.87 M/UL (4.20-5.40) L Hemoglobin 9.9 G/DL (12.0-16.0) L Hematocrit 29.3 % (37.0-47.0) L Mean Corpuscular Volume 102 FL (80-99) H Mean Corpuscular Hemoglobin 34.5 PG (27.0-31.0) H Mean Corpuscular Hemoglobin Concent 33.9 G/DL (32.0-36.0) Red Cell Distribution Width 12.7 % (11.6-14.8) Platelet Count 93 K/UL (150-450) #L Mean Platelet Volume 8.1 FL (6.5-10.1) Neutrophils (%) (Auto) % (45.0-75.0) Lymphocytes (%) (Auto) % (20.0-45.0) Monocytes (%) (Auto) % (1.0-10.0) Eosinophils (%) (Auto) % (0.0-3.0) Basophils (%) (Auto) % (0.0-2.0) Differential Total Cells Counted 100 Neutrophils % (Manual) 76 % (45-75) H Lymphocytes % (Manual) 21 % (20-45) Monocytes % (Manual) 3 % (1-10) Eosinophils % (Manual) 0 % (0-3) Basophils % (Manual) 0 % (0-2) Band Neutrophils 0 % (0-8) Platelet Estimate Decreased L Platelet Morphology Normal Sodium Level 143 MMOL/L (136-145) Potassium Level 4.9 MMOL/L (3.5-5.1) Chloride Level 108 MMOL/L (98-107) H Carbon Dioxide Level 26 MMOL/L (21-32) Anion Gap 9 mmol/L (5-15) Blood Urea Nitrogen 39 mg/dL (7-18) H Creatinine 0.6 MG/DL (0.55-1.30) Estimat Glomerular Filtration Rate mL/min (>60) Glucose Level 139 MG/DL (74-106) H Calcium Level 9.5 MG/DL (8.5-10.1) Phosphorus Level 3.3 MG/DL (2.5-4.9) Magnesium Level 2.2 MG/DL (1.8-2.4) Total Bilirubin 0.4 MG/DL (0.2-1.0) Aspartate Amino Transf (AST/SGOT) 14 U/L (15-37) L Alanine Aminotransferase (ALT/SGPT) 19 U/L (12-78) Alkaline Phosphatase 48 U/L (46-116) Total Protein 6.3 G/DL (6.4-8.2) L Albumin 2.8 G/DL (3.4-5.0) L Globulin 3.5 g/dL Albumin/Globulin Ratio 0.8 (1.0-2.7) L Microbiology Date/Time Source Procedure Growth Status 03/06/17 11:50 Blood Blood Culture - Preliminary NO GROWTH AFTER 24 HOURS Resulted 03/06/17 10:15 Blood Blood Culture - Preliminary NO GROWTH AFTER 24 HOURS Resulted 03/06/17 10:00 Sputum Gram Stain - Final Resulted 03/06/17 10:00 Sputum Culture - Preliminary Gram Negative Ton Resulted 03/06/17 10:00 Urine,Clean Catch Urine Culture - Preliminary Resulted JEFFERSON ROMEO Mar 08, 2017 15:48
[2017-03-08] MEDS: Haloperidol 5mg/ml Inj IM PRN (15:58)
--- NOTE | 2017-03-08 16:28 | Internal Med Progress Note ---
Subjective Date of Service: Mar 08, 2017 Physician Name Zeb Fuentes Attending Physician Jun Cedillo MD Current Medications Medications (Trade) Dose Ordered Sig/Wilner Route PRN Reason Start Time Stop Time Status Last Admin Dose Admin Acetaminophen (Tylenol) 650 mg Q4H PRN ORAL Fever/Headache/Mild Pain 03/07/17 08:00 04/06/17 07:59 03/08/17 14:59 Allopurinol (Zyloprim) 100 mg DAILY ORAL 03/02/17 09:00 04/01/17 08:59 03/08/17 10:09 Amlodipine Besylate (Norvasc) 10 mg DAILY ORAL 03/04/17 12:00 04/03/17 11:59 03/08/17 10:08 Aspirin (Ecotrin) 81 mg DAILY ORAL 02/26/17 09:00 03/19/17 08:59 03/08/17 10:05 Bisacodyl (Dulcolax) 10 mg DAILYPRN PRN RECTAL Constipation Third Line Agent 02/25/17 15:15 03/27/17 15:14 Carvedilol (Coreg) 25 mg Q12HR ORAL 03/05/17 21:00 04/04/17 20:59 03/08/17 10:07 Dextrose (Dextrose 50%) STAT PRN IV Hypoglycemia 02/25/17 15:15 03/17/17 15:14 Escitalopram Oxalate (Lexapro) 10 mg DAILY ORAL 02/26/17 09:00 03/20/17 08:59 03/08/17 10:08 Haloperidol Lactate (Haldol) 2 mg Q4H PRN IM Agitation 02/25/17 15:15 03/27/17 15:14 03/08/17 15:58 Hydralazine HCl (Apresoline) 10 mg Q6HR NG 03/05/17 12:00 04/04/17 11:59 03/08/17 11:46 Hydralazine HCl (Apresoline) 25 mg Q4H PRN ORAL SBP > 160mmHg 02/25/17 15:15 03/27/17 15:14 03/04/17 08:30 Lidocaine (Xylocaine 1% MPF 5ml) 10 ml Q4H PRN HHN cough 02/25/17 15:15 03/19/17 15:14 Lisinopril (Prinivil) 20 mg BID ORAL 02/25/17 18:00 03/27/17 17:59 03/08/17 10:08 Metoclopramide HCl (Reglan) 5 mg Q8HR IVP 03/04/17 22:00 04/03/17 21:59 03/08/17 13:49 Morphine Sulfate (Morphine Sulfate) 2 mg Q4H PRN IVP Pain 4-10 03/08/17 09:15 03/15/17 09:14 03/08/17 11:58 Ondansetron HCl (Zofran) 4 mg Q6H PRN IVP Nausea & Vomiting 02/25/17 15:15 03/17/17 15:14 Pantoprazole (Protonix) 40 mg DAILY IV 02/27/17 09:00 03/29/17 08:59 03/08/17 10:05 Polyethylene Glycol (Miralax) 17 gm DAILYPRN PRN ORAL Constipation First line agent 02/25/17 15:15 03/17/17 15:14 Potassium Chloride (KCl 10% 40mEq Oral solution) 40 meq TWICE A DAY NG 03/07/17 12:00 04/06/17 11:59 03/08/17 10:04 Pravastatin Sodium (Pravachol) 20 mg BEDTIME ORAL 02/25/17 21:00 03/18/17 20:59 03/07/17 20:59 Prednisone (predniSONE) 20 mg DAILY ORAL 03/08/17 09:00 04/07/17 08:59 03/08/17 10:09 Pregabalin (Lyrica) 150 mg THREE TIMES A DAY ORAL 02/25/17 18:00 03/18/17 12:59 03/08/17 12:24 Promethazine HCl/ Codeine (Phenergan with Codeine) 5 ml Q4H PRN ORAL UNRELIEVED COUGH 02/25/17 15:15 03/18/17 15:14 Ranitidine HCl (Zantac) 150 mg QPM ORAL 02/25/17 16:30 03/27/17 16:29 03/08/17 16:05 Allergies: Coded Allergies: TETRACYCLINE (Unverified Allergy, Unknown, 07/24/14) Subjective 76 YO F admitted with shortness of breath. Now pneumonia. Cover for Int Med- Dr Cedillo. ICU. CT chest=occlusion left mainstem bronchus-Intubated 02/25/17; extubated 03/07/17. Tolerating nasal canula Objective Last Vital Signs Date Time Temp Pulse Resp B/P (MAP) Pulse Ox O2 Delivery O2 Flow Rate FiO2 03/08/17 15:00 65 21 83/57 100 Nasal Cannula 2.0 03/08/17 12:00 97.4 03/08/17 07:06 32 Laboratory Tests Test 03/08/17 05:05 White Blood Count 4.7 K/UL (4.8-10.8) L Red Blood Count 2.87 M/UL (4.20-5.40) L Hemoglobin 9.9 G/DL (12.0-16.0) L Hematocrit 29.3 % (37.0-47.0) L Mean Corpuscular Volume 102 FL (80-99) H Mean Corpuscular Hemoglobin 34.5 PG (27.0-31.0) H Mean Corpuscular Hemoglobin Concent 33.9 G/DL (32.0-36.0) Red Cell Distribution Width 12.7 % (11.6-14.8) Platelet Count 93 K/UL (150-450) #L Mean Platelet Volume 8.1 FL (6.5-10.1) Neutrophils (%) (Auto) % (45.0-75.0) Lymphocytes (%) (Auto) % (20.0-45.0) Monocytes (%) (Auto) % (1.0-10.0) Eosinophils (%) (Auto) % (0.0-3.0) Basophils (%) (Auto) % (0.0-2.0) Differential Total Cells Counted 100 Neutrophils % (Manual) 76 % (45-75) H Lymphocytes % (Manual) 21 % (20-45) Monocytes % (Manual) 3 % (1-10) Eosinophils % (Manual) 0 % (0-3) Basophils % (Manual) 0 % (0-2) Band Neutrophils 0 % (0-8) Platelet Estimate Decreased L Platelet Morphology Normal Sodium Level 143 MMOL/L (136-145) Potassium Level 4.9 MMOL/L (3.5-5.1) Chloride Level 108 MMOL/L (98-107) H Carbon Dioxide Level 26 MMOL/L (21-32) Anion Gap 9 mmol/L (5-15) Blood Urea Nitrogen 39 mg/dL (7-18) H Creatinine 0.6 MG/DL (0.55-1.30) Estimat Glomerular Filtration Rate mL/min (>60) Glucose Level 139 MG/DL (74-106) H Calcium Level 9.5 MG/DL (8.5-10.1) Phosphorus Level 3.3 MG/DL (2.5-4.9) Magnesium Level 2.2 MG/DL (1.8-2.4) Total Bilirubin 0.4 MG/DL (0.2-1.0) Aspartate Amino Transf (AST/SGOT) 14 U/L (15-37) L Alanine Aminotransferase (ALT/SGPT) 19 U/L (12-78) Alkaline Phosphatase 48 U/L (46-116) Total Protein 6.3 G/DL (6.4-8.2) L Albumin 2.8 G/DL (3.4-5.0) L Globulin 3.5 g/dL Albumin/Globulin Ratio 0.8 (1.0-2.7) L Microbiology Date/Time Source Procedure Growth Status 03/06/17 11:50 Blood Blood Culture - Preliminary NO GROWTH AFTER 24 HOURS Resulted 03/06/17 10:15 Blood Blood Culture - Preliminary NO GROWTH AFTER 24 HOURS Resulted 03/06/17 10:00 Sputum Gram Stain - Final Resulted 03/06/17 10:00 Sputum Culture - Preliminary Gram Negative Ton Resulted 03/06/17 10:00 Urine,Clean Catch Urine Culture - Preliminary Resulted Intake and Output 03/08/17 03/09/17 19:00 07:00 Intake Total 240 ml Output Total 550 ml Balance -310 ml Tube Feeding 240 ml Output Urine Total 550 ml Objective General Appearance: WD/WN, no apparent distress, alert EENT: PERRL/EOMI, normal ENT inspection, TMs normal Neck: non-tender, normal alignment, supple, normal inspection Cardiovascular: normal peripheral pulses, normal rate, regular rhythm, no gallop/murmur, no JVD Respiratory/Chest: nasal canula; chest wall non-tender, respiratory distress, decreased breath sounds, crackles/rales, rhonchi - bilaterally, expiratory wheezing Abdomen: normal bowel sounds, non tender, soft, no organomegaly, no mass Extremities: normal range of motion 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 (8) Pneumonia Assessment & Plan: Continue Meropenem and vanco. See ID and pulmonary notes. (9) COPD exacerbation Assessment & Plan: Continue IV solumedrol and xopenex/atrovent nebs. See pulmonary note. (10) Diastolic CHF Assessment & Plan: See cardiology note. 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 S/P intubation to aerate left lung-see pulmonary note. D/W pulmonary Dr Hernandez. Extubated 03/07 (14) Respiratory failure requiring intubation Assessment & Plan: Extubated 03/07/17; tolerating nasal canula Status: progressing ZEB FUENTES Mar 08, 2017 16:28
--- NOTE | 2017-03-08 23:09 | Geriatric Progress Note ---
Subjective Functional Changes: 03/07/17 Geriatric Geriatric Last 24 Hour Vital Signs Date Time Temp Pulse Resp B/P (MAP) Pulse Ox O2 Delivery O2 Flow Rate FiO2 03/08/17 22:43 68 117/56 03/08/17 20:00 65 03/08/17 19:00 68 22 118/56 98 Nasal Cannula 2.0 03/08/17 18:00 63 22 112/54 100 Nasal Cannula 2.0 03/08/17 17:36 112/54 03/08/17 17:36 112/54 03/08/17 17:00 66 21 112/54 98 Nasal Cannula 2.0 03/08/17 16:00 97.6 66 20 113/51 97 Nasal Cannula 2.0 03/08/17 16:00 66 03/08/17 15:00 65 21 83/57 100 Nasal Cannula 2.0 03/08/17 14:00 67 21 149/64 96 Nasal Cannula 2.0 03/08/17 13:00 66 19 139/65 98 Nasal Cannula 2.0 03/08/17 12:00 97.4 67 22 133/62 97 Nasal Cannula 2.0 03/08/17 12:00 67 03/08/17 11:46 137/74 03/08/17 11:00 68 22 137/74 97 Nasal Cannula 2.0 03/08/17 10:08 96 149/62 03/08/17 10:08 149/62 03/08/17 10:07 97 149/62 03/08/17 10:00 66 17 139/62 94 Nasal Cannula 2.0 03/08/17 08:00 61 03/08/17 08:00 97.8 64 19 134/56 98 Nasal Cannula 2.0 03/08/17 07:06 98 Nasal Cannula 3.0 32 03/08/17 07:06 Nasal Cannula 3.0 32 03/08/17 07:00 71 20 134/61 97 Nasal Cannula 2.0 03/08/17 06:00 127/60 03/08/17 06:00 68 23 133/61 100 Nasal Cannula 2.0 03/08/17 05:00 69 22 127/60 99 Nasal Cannula 2.0 03/08/17 04:00 98.3 64 27 137/56 97 Nasal Cannula 2.0 03/08/17 04:00 65 03/08/17 03:00 60 19 120/51 99 Nasal Cannula 2.0 03/08/17 02:00 61 19 110/51 100 Nasal Cannula 2.0 03/08/17 01:00 61 22 113/48 99 Nasal Cannula 2.0 03/08/17 00:00 100/46 03/08/17 00:00 68 03/08/17 00:00 97.9 68 22 102/46 99 Nasal Cannula 2.0 Intake and Output 03/08/17 03/09/17 19:00 07:00 Intake Total 360 ml Output Total 945 ml Balance -585 ml Tube Feeding 360 ml Output Urine Total 945 ml Laboratory Tests Test 03/08/17 05:05 White Blood Count 4.7 K/UL (4.8-10.8) L Red Blood Count 2.87 M/UL (4.20-5.40) L Hemoglobin 9.9 G/DL (12.0-16.0) L Hematocrit 29.3 % (37.0-47.0) L Mean Corpuscular Volume 102 FL (80-99) H Mean Corpuscular Hemoglobin 34.5 PG (27.0-31.0) H Mean Corpuscular Hemoglobin Concent 33.9 G/DL (32.0-36.0) Red Cell Distribution Width 12.7 % (11.6-14.8) Platelet Count 93 K/UL (150-450) #L Mean Platelet Volume 8.1 FL (6.5-10.1) Neutrophils (%) (Auto) % (45.0-75.0) Lymphocytes (%) (Auto) % (20.0-45.0) Monocytes (%) (Auto) % (1.0-10.0) Eosinophils (%) (Auto) % (0.0-3.0) Basophils (%) (Auto) % (0.0-2.0) Differential Total Cells Counted 100 Neutrophils % (Manual) 76 % (45-75) H Lymphocytes % (Manual) 21 % (20-45) Monocytes % (Manual) 3 % (1-10) Eosinophils % (Manual) 0 % (0-3) Basophils % (Manual) 0 % (0-2) Band Neutrophils 0 % (0-8) Platelet Estimate Decreased L Platelet Morphology Normal Sodium Level 143 MMOL/L (136-145) Potassium Level 4.9 MMOL/L (3.5-5.1) Chloride Level 108 MMOL/L (98-107) H Carbon Dioxide Level 26 MMOL/L (21-32) Anion Gap 9 mmol/L (5-15) Blood Urea Nitrogen 39 mg/dL (7-18) H Creatinine 0.6 MG/DL (0.55-1.30) Estimat Glomerular Filtration Rate mL/min (>60) Glucose Level 139 MG/DL (74-106) H Calcium Level 9.5 MG/DL (8.5-10.1) Phosphorus Level 3.3 MG/DL (2.5-4.9) Magnesium Level 2.2 MG/DL (1.8-2.4) Total Bilirubin 0.4 MG/DL (0.2-1.0) Aspartate Amino Transf (AST/SGOT) 14 U/L (15-37) L Alanine Aminotransferase (ALT/SGPT) 19 U/L (12-78) Alkaline Phosphatase 48 U/L (46-116) Total Protein 6.3 G/DL (6.4-8.2) L Albumin 2.8 G/DL (3.4-5.0) L Globulin 3.5 g/dL Albumin/Globulin Ratio 0.8 (1.0-2.7) L Current Medications Medications (Trade) Dose Ordered Sig/Wilner Route PRN Reason Start Time Stop Time Status Last Admin Dose Admin Acetaminophen (Tylenol) 650 mg Q4H PRN ORAL Fever/Headache/Mild Pain 03/08/17 20:00 04/07/17 23:59 Allopurinol (Zyloprim) 100 mg DAILY ORAL 03/09/17 09:00 04/07/17 23:59 Amlodipine Besylate (Norvasc) 10 mg DAILY ORAL 03/04/17 12:00 04/03/17 11:59 03/08/17 10:08 Aspirin (Ecotrin) 81 mg DAILY ORAL 03/09/17 09:00 03/29/17 23:59 Bisacodyl (Dulcolax) 10 mg DAILYPRN PRN RECTAL Constipation Third Line Agent 03/08/17 18:15 04/07/17 23:59 Carvedilol (Coreg) 25 mg Q12HR ORAL 03/05/17 21:00 04/04/17 20:59 03/08/17 22:43 Dextrose (Dextrose 50%) STAT PRN IV Hypoglycemia 02/25/17 15:15 03/17/17 15:14 Escitalopram Oxalate (Lexapro) 10 mg DAILY ORAL 02/26/17 09:00 03/20/17 08:59 03/08/17 10:08 Haloperidol Lactate (Haldol) 2 mg Q4H PRN IM Agitation 02/25/17 15:15 03/27/17 15:14 03/08/17 15:58 Hydralazine HCl (Apresoline) 10 mg Q6HR NG 03/05/17 12:00 04/04/17 11:59 03/08/17 17:36 Hydralazine HCl (Apresoline) 25 mg Q4H PRN ORAL SBP > 160mmHg 02/25/17 15:15 03/27/17 15:14 03/04/17 08:30 Lidocaine (Xylocaine 1% MPF 5ml) 10 ml Q4H PRN HHN cough 02/25/17 15:15 03/19/17 15:14 Lisinopril (Prinivil) 20 mg BID ORAL 02/25/17 18:00 03/27/17 17:59 03/08/17 17:36 Metoclopramide HCl (Reglan) 5 mg Q8HR IVP 03/04/17 22:00 04/03/17 21:59 03/08/17 22:43 Morphine Sulfate (Morphine Sulfate) 2 mg Q4H PRN IVP Pain 4-10 03/08/17 09:15 03/15/17 09:14 03/08/17 22:44 Ondansetron HCl (Zofran) 4 mg Q6H PRN IVP Nausea & Vomiting 02/25/17 15:15 03/17/17 15:14 Pantoprazole (Protonix) 40 mg DAILY IV 02/27/17 09:00 03/29/17 08:59 03/08/17 10:05 Polyethylene Glycol (Miralax) 17 gm DAILYPRN PRN ORAL Constipation First line agent 02/25/17 15:15 03/17/17 15:14 Potassium Chloride (KCl 10% 40mEq Oral solution) 40 meq TWICE A DAY NG 03/07/17 12:00 04/06/17 11:59 03/08/17 17:35 Pravastatin Sodium (Pravachol) 20 mg BEDTIME ORAL 02/25/17 21:00 03/18/17 20:59 03/08/17 22:43 Prednisone (predniSONE) 20 mg DAILY ORAL 03/08/17 09:00 04/07/17 08:59 03/08/17 10:09 Pregabalin (Lyrica) 150 mg THREE TIMES A DAY ORAL 02/25/17 18:00 03/18/17 12:59 03/08/17 17:37 Promethazine HCl/ Codeine (Phenergan with Codeine) 5 ml Q4H PRN ORAL UNRELIEVED COUGH 02/25/17 15:15 03/18/17 15:14 Ranitidine HCl (Zantac) 150 mg QPM ORAL 02/25/17 16:30 03/27/17 16:29 03/08/17 16:05 Height (Feet): 5 Height (Inches): 7.00 Weight (Pounds): 110 Wan Stern M.D. Mar 08, 2017 23:09
--- NOTE | 2017-03-08 23:09 | General Progress Note ---
Assessment/Plan Status: stable, progressing Assessment/Plan anxiety d/o' encephalopathy -cont current meds -provided ro/st -cont ativan Subjective Date patient seen: Mar 08, 2017 Neurologic/Psychiatric: Reports: anxiety, depressed, emotional problems Allergies: Coded Allergies: TETRACYCLINE (Unverified Allergy, Unknown, 07/24/14) Subjective the pt was is improving has still episodes of confusion Objective Last 24 Hour Vital Signs Date Time Temp Pulse Resp B/P (MAP) Pulse Ox O2 Delivery O2 Flow Rate FiO2 03/08/17 22:43 68 117/56 03/08/17 20:00 65 03/08/17 19:00 68 22 118/56 98 Nasal Cannula 2.0 03/08/17 18:00 63 22 112/54 100 Nasal Cannula 2.0 03/08/17 17:36 112/54 03/08/17 17:36 112/54 03/08/17 17:00 66 21 112/54 98 Nasal Cannula 2.0 03/08/17 16:00 97.6 66 20 113/51 97 Nasal Cannula 2.0 03/08/17 16:00 66 03/08/17 15:00 65 21 83/57 100 Nasal Cannula 2.0 03/08/17 14:00 67 21 149/64 96 Nasal Cannula 2.0 03/08/17 13:00 66 19 139/65 98 Nasal Cannula 2.0 03/08/17 12:00 97.4 67 22 133/62 97 Nasal Cannula 2.0 03/08/17 12:00 67 03/08/17 11:46 137/74 03/08/17 11:00 68 22 137/74 97 Nasal Cannula 2.0 03/08/17 10:08 96 149/62 03/08/17 10:08 149/62 03/08/17 10:07 97 149/62 03/08/17 10:00 66 17 139/62 94 Nasal Cannula 2.0 03/08/17 08:00 61 03/08/17 08:00 97.8 64 19 134/56 98 Nasal Cannula 2.0 03/08/17 07:06 98 Nasal Cannula 3.0 32 03/08/17 07:06 Nasal Cannula 3.0 32 03/08/17 07:00 71 20 134/61 97 Nasal Cannula 2.0 03/08/17 06:00 127/60 03/08/17 06:00 68 23 133/61 100 Nasal Cannula 2.0 03/08/17 05:00 69 22 127/60 99 Nasal Cannula 2.0 03/08/17 04:00 98.3 64 27 137/56 97 Nasal Cannula 2.0 03/08/17 04:00 65 03/08/17 03:00 60 19 120/51 99 Nasal Cannula 2.0 03/08/17 02:00 61 19 110/51 100 Nasal Cannula 2.0 03/08/17 01:00 61 22 113/48 99 Nasal Cannula 2.0 03/08/17 00:00 100/46 03/08/17 00:00 68 03/08/17 00:00 97.9 68 22 102/46 99 Nasal Cannula 2.0 Intake and Output 03/08/17 03/09/17 19:00 07:00 Intake Total 360 ml Output Total 945 ml Balance -585 ml Tube Feeding 360 ml Output Urine Total 945 ml Laboratory Tests 03/08/17 05:05: White Blood Count 4.7L, Red Blood Count 2.87L, Hemoglobin 9.9L, Hematocrit 29.3L , Mean Corpuscular Volume 102H, Mean Corpuscular Hemoglobin 34.5H, Mean Corpuscular Hemoglobin Concent 33.9, Red Cell Distribution Width 12.7, Platelet Count 93#L, Mean Platelet Volume 8.1, Neutrophils (%) (Auto) , Lymphocytes (%) ( Auto) , Monocytes (%) (Auto) , Eosinophils (%) (Auto) , Basophils (%) (Auto) , Differential Total Cells Counted 100, Neutrophils % (Manual) 76H, Lymphocytes % (Manual) 21, Monocytes % (Manual) 3, Eosinophils % (Manual) 0, Basophils % ( Manual) 0, Band Neutrophils 0, Platelet Estimate DecreasedL, Platelet Morphology Normal, Sodium Level 143, Potassium Level 4.9, Chloride Level 108H, Carbon Dioxide Level 26, Anion Gap 9, Blood Urea Nitrogen 39H, Creatinine 0.6, Estimat Glomerular Filtration Rate , Glucose Level 139H, Calcium Level 9.5, Phosphorus Level 3.3, Magnesium Level 2.2, Total Bilirubin 0.4, Aspartate Amino Transf (AST/SGOT) 14L, Alanine Aminotransferase (ALT/SGPT) 19, Alkaline Phosphatase 48, Total Protein 6.3L, Albumin 2.8L, Globulin 3.5, Albumin/ Globulin Ratio 0.8L Height (Feet): 5 Height (Inches): 7.00 Weight (Pounds): 110 General Appearance: no apparent distress, alert, obese Neurologic: alert, responsive, depressed affect Wan Stern M.D. Mar 08, 2017 23:09
[2017-03-09] VITALS: BP 125/58
[2017-03-09] MEDS: HydrALAZINE 10mg Tab NG SCH ×4 (00:52→18:22)
[2017-03-09] MEDS: Morphine Sulfate 4mg/ml Inj IVP PRN ×4 (03:42→20:45)
[2017-03-09 04:00] VITALS: BP 136/68
[2017-03-09 04:37] LABS: BASOPHILS % (AUTO) 0.1 % (0.0-2.0); EOSINOPHILS % (AUTO) 0.2 % (0.0-3.0); HEMATOCRIT 30.1 % (37.0-47.0); HEMOGLOBIN 9.6 G/DL (12.0-16.0); LYMPHOCYTES % (AUTO) 15.5 % (20.0-45.0); MEAN CORPUSCULAR VOLUME 101 FL (80-99); MONOCYTES % (AUTO) 6.1 % (1.0-10.0); NEUTROPHILS % (AUTO) 78.1 % (45.0-75.0); PLATELET COUNT 268 K/UL (150-450); RED BLOOD COUNT 2.98 M/UL (4.20-5.40); RED CELL DISTRIBUTION WIDTH 12.4 % (11.6-14.8); WHITE BLOOD COUNT 10.9 K/UL (4.8-10.8)
[2017-03-09 05:37] LABS: ALANINE AMINOTRANSFERASE 19 U/L (12-78); ALBUMIN 2.9 G/DL (3.4-5.0); ALBUMIN/GLOBULIN RATIO 0.8 (1.0-2.7); ALKALINE PHOSPHATASE 52 U/L (46-116); ANION GAP 6 mmol/L (5-15); ASPARTATE AMINO TRANSFERASE 15 U/L (15-37); BILIRUBIN,TOTAL 0.5 MG/DL (0.2-1.0); BLOOD UREA NITROGEN 37 mg/dL (7-18); CARBON DIOXIDE 28 MMOL/L (21-32); CHLORIDE 106 MMOL/L (98-107); CREATININE 0.7 MG/DL (0.55-1.30); POTASSIUM 5.3 MMOL/L (3.5-5.1); SODIUM 140 MMOL/L (136-145)
[2017-03-09] MEDS: Metoclopramide 10mg/2ml Inj IVP SCH ×3 (06:51→22:33)
[2017-03-09 08:00] VITALS: BP 137/57
[2017-03-09] MEDS: KCl 10% 40mEq/30ml liquid NG SCH (09:00)
[2017-03-09] MEDS: Carvedilol 25mg Tab ORAL SCH ×2 (09:27→20:45)
[2017-03-09] MEDS: Pantoprazole Inj IV SCH (09:27)
[2017-03-09] MEDS: Lisinopril 20mg tab ORAL SCH (09:29)
[2017-03-09] MEDS: Allopurinol 100mg Tab ORAL SCH (09:29)
[2017-03-09] MEDS: Aspirin EC 81mg tab ORAL SCH (09:29)
[2017-03-09] MEDS: Lyrica 75mg cap ORAL SCH ×3 (09:29→18:22)
--- NOTE | 2017-03-09 10:56 | Diagnostic Imaging Report ---
Indication: DYSPNEA Technique: One view of the chest Comparison: 03/08/2017 Findings: Nasogastric tube remains in place. There is increasing pleural fluid on the left. There is persistent right infrahilar consolidation, stable or possibly increased mild interstitial congestion. Inspiration is less optimal currently Impression: Increased pleural fluid Stable or perhaps slightly increased generalized interstitial congestion. Other findings as noted
--- NOTE | 2017-03-09 11:21 | Diagnostic Imaging Report ---
APPROVED REPORT CPT Code: 81471 Present Symptoms Lower Extremity Pain: Shortness of breath Comments: hx CHF, HTN. BILATERAL: Imaging reveals a patent deep venous system bilaterally. There is no evidence of thrombus within the femoral, popliteal or tibial segments. The greater saphenous veins are also within normal limits. Doppler indicates normal spontaneous flow within these segments. The calf veins were not well visualized bilaterally.
--- NOTE | 2017-03-09 11:21 | Diagnostic Imaging Report ---
APPROVED REPORT CPT Code: 50511 Present Symptoms Lower Extremity Pain: Shortness of breath Comments: hx CHF, HTN. BILATERAL: Imaging reveals a patent deep venous system bilaterally. There is no evidence of thrombus within the femoral, popliteal or tibial segments. The greater saphenous veins are also within normal limits. Doppler indicates normal spontaneous flow within these segments. The calf veins were not well visualized bilaterally.
--- NOTE | 2017-03-09 11:21 | Diagnostic Imaging Report ---
APPROVED REPORT CPT Code: 89884 Present Symptoms Lower Extremity Pain: Shortness of breath Comments: hx CHF, HTN. BILATERAL: Imaging reveals a patent deep venous system bilaterally. There is no evidence of thrombus within the femoral, popliteal or tibial segments. The greater saphenous veins are also within normal limits. Doppler indicates normal spontaneous flow within these segments. The calf veins were not well visualized bilaterally.
--- NOTE | 2017-03-09 11:33 | Pulmonology Progress Note ---
Assessment/Plan Problems: (1) Acute and chronic respiratory failure ([id number]) (2) COPD exacerbation (3) Pneumonia (4) Fibromyalgia (5) History of breast cancer (6) Limited mobility Assessment/Plan on Nasal cannula swallow study today dc steroids pt/ot CXR today no change chest PT keep in CAYETANO Subjective ROS Limited/Unobtainable: No Constitutional: Reports: no symptoms HEENT: Repors: no symptoms Respiratory: Reports: no symptoms Allergies: Coded Allergies: TETRACYCLINE (Unverified Allergy, Unknown, 07/24/14) Objective Last 24 Hour Vital Signs Date Time Temp Pulse Resp B/P (MAP) Pulse Ox O2 Delivery O2 Flow Rate FiO2 03/09/17 10:08 97.5 03/09/17 10:08 97.5 03/09/17 09:29 65 137/57 03/09/17 09:29 137/57 03/09/17 09:27 65 137/57 03/09/17 08:00 97.5 66 20 137/57 95 Nasal Cannula 2.0 03/09/17 08:00 65 03/09/17 06:51 136/68 03/09/17 04:12 69 03/09/17 04:00 97.5 70 20 136/68 96 Nasal Cannula 2.0 03/09/17 00:52 124/58 03/09/17 00:00 65 03/09/17 00:00 97.3 72 18 125/58 94 Nasal Cannula 2.0 03/08/17 22:43 68 117/56 03/08/17 20:00 98.1 68 18 117/56 98 Nasal Cannula 2.0 03/08/17 20:00 65 03/08/17 19:22 Nasal Cannula 3.0 32 03/08/17 19:22 97 Nasal Cannula 3.0 32 03/08/17 19:00 68 22 118/56 98 Nasal Cannula 2.0 03/08/17 18:00 63 22 112/54 100 Nasal Cannula 2.0 03/08/17 17:36 112/54 03/08/17 17:36 112/54 03/08/17 17:00 66 21 112/54 98 Nasal Cannula 2.0 03/08/17 16:00 97.6 66 20 113/51 97 Nasal Cannula 2.0 03/08/17 16:00 66 03/08/17 15:00 65 21 83/57 100 Nasal Cannula 2.0 03/08/17 14:00 67 21 149/64 96 Nasal Cannula 2.0 03/08/17 13:00 66 19 139/65 98 Nasal Cannula 2.0 03/08/17 12:00 97.4 67 22 133/62 97 Nasal Cannula 2.0 03/08/17 12:00 67 03/08/17 11:46 137/74 General Appearance: WD/WN HEENT: normocephalic Respiratory/Chest: chest wall non-tender, lungs clear, decreased breath sounds Cardiovascular: normal peripheral pulses, normal rate Abdomen: no scars Genitourinary: normal external genitalia Extremities: no clubbing Skin: no rash Microbiology Date/Time Source Procedure Growth Status 03/06/17 11:50 Blood Blood Culture - Preliminary NO GROWTH AFTER 48 HOURS Resulted Laboratory Tests 03/09/17 03:20: White Blood Count 10.9#H, Red Blood Count 2.98L, Hemoglobin 9.6L, Hematocrit 30.1L, Mean Corpuscular Volume 101H, Mean Corpuscular Hemoglobin 32.1H, Mean Corpuscular Hemoglobin Concent 31.8L, Red Cell Distribution Width 12.4, Platelet Count 268#, Mean Platelet Volume 8.0, Neutrophils (%) (Auto) 78.1H, Lymphocytes (%) (Auto) 15.5L, Monocytes (%) (Auto) 6.1, Eosinophils (%) (Auto) 0.2, Basophils (%) (Auto) 0.1, Sodium Level 140, Potassium Level 5.3H, Chloride Level 106, Carbon Dioxide Level 28, Anion Gap 6, Blood Urea Nitrogen 37H, Creatinine 0.7, Estimat Glomerular Filtration Rate , Glucose Level 127H, Calcium Level 10.0, Total Bilirubin 0.5, Aspartate Amino Transf (AST/SGOT) 15, Alanine Aminotransferase (ALT/SGPT) 19, Alkaline Phosphatase 52, Pro-B-Type Natriuretic Peptide 535H, Total Protein 6.7, Albumin 2.9L, Globulin 3.8, Albumin /Globulin Ratio 0.8L Current Medications Medications (Trade) Dose Ordered Sig/Wilner Route PRN Reason Start Time Stop Time Status Last Admin Dose Admin Acetaminophen (Tylenol) 650 mg Q4H PRN ORAL Fever/Headache/Mild Pain 03/08/17 20:00 04/07/17 23:59 Allopurinol (Zyloprim) 100 mg DAILY ORAL 03/09/17 09:00 04/07/17 23:59 03/09/17 09:29 Amlodipine Besylate (Norvasc) 10 mg DAILY ORAL 03/04/17 12:00 04/03/17 11:59 03/09/17 09:29 Aspirin (Ecotrin) 81 mg DAILY ORAL 03/09/17 09:00 03/29/17 23:59 03/09/17 09:29 Bisacodyl (Dulcolax) 10 mg DAILYPRN PRN RECTAL Constipation Third Line Agent 03/08/17 18:15 04/07/17 23:59 Carvedilol (Coreg) 25 mg Q12HR ORAL 03/05/17 21:00 04/04/17 20:59 03/09/17 09:27 Dextrose (Dextrose 50%) STAT PRN IV Hypoglycemia 02/25/17 15:15 03/17/17 15:14 Escitalopram Oxalate (Lexapro) 10 mg DAILY ORAL 02/26/17 09:00 03/20/17 08:59 03/09/17 09:27 Haloperidol Lactate (Haldol) 2 mg Q4H PRN IM Agitation 02/25/17 15:15 03/27/17 15:14 03/08/17 15:58 Hydralazine HCl (Apresoline) 10 mg Q6HR NG 03/05/17 12:00 04/04/17 11:59 03/09/17 06:51 Hydralazine HCl (Apresoline) 25 mg Q4H PRN ORAL SBP > 160mmHg 02/25/17 15:15 03/27/17 15:14 03/04/17 08:30 Lidocaine (Xylocaine 1% MPF 5ml) 10 ml Q4H PRN HHN cough 02/25/17 15:15 03/19/17 15:14 Lisinopril (Prinivil) 20 mg BID ORAL 02/25/17 18:00 03/27/17 17:59 03/09/17 09:29 Metoclopramide HCl (Reglan) 5 mg Q8HR IVP 03/04/17 22:00 04/03/17 21:59 03/09/17 06:51 Morphine Sulfate (Morphine Sulfate) 2 mg Q4H PRN IVP Pain 4-10 03/08/17 09:15 03/15/17 09:14 03/09/17 09:38 Ondansetron HCl (Zofran) 4 mg Q6H PRN IVP Nausea & Vomiting 02/25/17 15:15 03/17/17 15:14 03/09/17 09:27 Pantoprazole (Protonix) 40 mg DAILY IV 02/27/17 09:00 03/29/17 08:59 03/09/17 09:27 Polyethylene Glycol (Miralax) 17 gm DAILYPRN PRN ORAL Constipation First line agent 02/25/17 15:15 03/17/17 15:14 Potassium Chloride (KCl 10% 40mEq Oral solution) 40 meq TWICE A DAY NG 03/07/17 12:00 04/06/17 11:59 03/08/17 17:35 Pravastatin Sodium (Pravachol) 20 mg BEDTIME ORAL 02/25/17 21:00 03/18/17 20:59 03/08/17 22:43 Prednisone (predniSONE) 20 mg DAILY ORAL 03/08/17 09:00 04/07/17 08:59 03/09/17 09:30 Pregabalin (Lyrica) 150 mg THREE TIMES A DAY ORAL 02/25/17 18:00 03/18/17 12:59 03/09/17 09:29 Promethazine HCl/ Codeine (Phenergan with Codeine) 5 ml Q4H PRN ORAL UNRELIEVED COUGH 02/25/17 15:15 03/18/17 15:14 Ranitidine HCl (Zantac) 150 mg QPM ORAL 02/25/17 16:30 03/27/17 16:29 03/08/17 16:05 TWIN FONTANEZ Mar 09, 2017 11:33
[2017-03-09] MEDS ORDERED: Sodium Polystyrene Sulfonate 15gm Powder ORAL ONE (11:45)
[2017-03-09 12:00] VITALS: BP 111/58
--- NOTE | 2017-03-09 12:09 | Infectious Diseases Prog Note ---
Assessment/Plan Assessment/Plan Abx: IV Vanco 02/15-03/01 Cefepime 02/15-02/18 Meropenem 02/18-03/03 Assesment: Low grade fever-resolved -u/a mild pyuria (wbc 5-10); ucx >100k yeast (colonizer) -sp cx 03/06 <1+ Proteus Mirabilis (S Ancef/CTX, bactrim; R Cipro/levo); s/p recent PNA tx -venous duplex No DVT -Bcx 03/06 NTD -CXR 03/05: There is suggestion of slightly increased pleural fluid on the left. Hazy opacity in the right lung is stable Leukocytosis, mild - recurrent, (s/p steroids 03/07) Acute hypoxic resp failure, - combination of COPD exacerbation and PNA; worsened 02/18; Intubated 02/26; extubated 03/07 -venous duplex 02/16 no DVT PNA- SGS(-), Cx Neg; s/p Rx - SP bronch 02/26 (collected 02/26, however received on the lab 03/03??): BAL cx NTD -CXR 03/03: Stable bilateral interstitial and alveolar opacities, probable small left pleural effusion, elevation left hemidiaphragm -CXR 03/01: Patchy, mainly interstitial appearing disease noted bilaterally. Findings may be due to infiltrates or CHF - CT Chest 02/24: Near-complete occlusion of the left mainstem bronchus and proximal lobar bronchi, probably by debris. Extensive resultant atelectasis and consolidation of nearly the entire left lung. Less extensive consolidation within the right lung, nonspecific as regards etiology, likely secondary to pneumonia or edema -CXR 02/23: Better inspiration currently. Overall improved aeration of the right mid and lower lung, with decreased dense consolidation and is still fairly extensive parenchymal opacity. The right pleural space is clear. Large left pleural effusion is again demonstrated, and is increased from the prior exam. There is also increasing consolidation of the residual aerated lung in the left upper hemithorax. -CXR: Limited evaluation due to significant degree of soft tissue attenuation. Suspect pneumonia at the right lung base. -Cr Ag serum neg; cocci ab pending L pleural effusion - improved COPD on home O2 Hx of Cdiff DM2 Chronic abd pain hx of MRSA bacteremia 07/2015 TCA allergy Full Code fibromyalgia, HTN, HLD, R breast cancer,Tobacco abuse (stopped 4 years ago), Anxiety, AOCD Plan: -Continue to monitor off abx; if febrile, increased leukocytosis, oxygen requirements or worsenign CXR- start IV Ceftriaxone for Proteus on sputum -s/p 14d IV Meropenem 03/03 -s/p 14 d IV Vancomycin 03/01 -s/p 6d prophylactic PO vanco 02/21 -s/p 4 d Cefepime 02/18 -f/u Cocci ab -Monitor CBC/BMP, temperatures -Aspiration precautions - vent support, wean as tolerated Discussed with RN. Subjective Allergies: Coded Allergies: TETRACYCLINE (Unverified Allergy, Unknown, 07/24/14) Subjective afebrile in 72hrs, off abx Mild leukocytosis Objective Vital Signs Last 24 Hour Vital Signs Date Time Temp Pulse Resp B/P (MAP) Pulse Ox O2 Delivery O2 Flow Rate FiO2 03/09/17 10:08 97.5 03/09/17 10:08 97.5 03/09/17 09:29 65 137/57 03/09/17 09:29 137/57 03/09/17 09:27 65 137/57 03/09/17 08:00 97.5 66 20 137/57 95 Nasal Cannula 2.0 03/09/17 08:00 65 03/09/17 06:51 136/68 03/09/17 04:12 69 03/09/17 04:00 97.5 70 20 136/68 96 Nasal Cannula 2.0 03/09/17 00:52 124/58 03/09/17 00:00 65 03/09/17 00:00 97.3 72 18 125/58 94 Nasal Cannula 2.0 03/08/17 22:43 68 117/56 03/08/17 20:00 98.1 68 18 117/56 98 Nasal Cannula 2.0 03/08/17 20:00 65 03/08/17 19:22 Nasal Cannula 3.0 32 03/08/17 19:22 97 Nasal Cannula 3.0 32 03/08/17 19:00 68 22 118/56 98 Nasal Cannula 2.0 03/08/17 18:00 63 22 112/54 100 Nasal Cannula 2.0 03/08/17 17:36 112/54 03/08/17 17:36 112/54 03/08/17 17:00 66 21 112/54 98 Nasal Cannula 2.0 03/08/17 16:00 97.6 66 20 113/51 97 Nasal Cannula 2.0 03/08/17 16:00 66 03/08/17 15:00 65 21 83/57 100 Nasal Cannula 2.0 03/08/17 14:00 67 21 149/64 96 Nasal Cannula 2.0 03/08/17 13:00 66 19 139/65 98 Nasal Cannula 2.0 Height (Feet): 5 Height (Inches): 7.00 Weight (Pounds): 115 Objective General Appearance: lethargic but arousable HEENT: PERRL, ETT in place, atraumatic head Neck: supple Respiratory: scattered wheezing Cardiovascular: regular rate, rhythmm, no murmurs Gastrointestinal: normal inspection, non tender, no mass, non-distended Musculoskeletal: L>R arm swelling and erythema Skin: no lesions or rashes reviewed Laboratory Tests Test 03/09/17 03:20 White Blood Count 10.9 K/UL (4.8-10.8) #H Red Blood Count 2.98 M/UL (4.20-5.40) L Hemoglobin 9.6 G/DL (12.0-16.0) L Hematocrit 30.1 % (37.0-47.0) L Mean Corpuscular Volume 101 FL (80-99) H Mean Corpuscular Hemoglobin 32.1 PG (27.0-31.0) H Mean Corpuscular Hemoglobin Concent 31.8 G/DL (32.0-36.0) L Red Cell Distribution Width 12.4 % (11.6-14.8) Platelet Count 268 K/UL (150-450) # Mean Platelet Volume 8.0 FL (6.5-10.1) Neutrophils (%) (Auto) 78.1 % (45.0-75.0) H Lymphocytes (%) (Auto) 15.5 % (20.0-45.0) L Monocytes (%) (Auto) 6.1 % (1.0-10.0) Eosinophils (%) (Auto) 0.2 % (0.0-3.0) Basophils (%) (Auto) 0.1 % (0.0-2.0) Sodium Level 140 MMOL/L (136-145) Potassium Level 5.3 MMOL/L (3.5-5.1) H Chloride Level 106 MMOL/L (98-107) Carbon Dioxide Level 28 MMOL/L (21-32) Anion Gap 6 mmol/L (5-15) Blood Urea Nitrogen 37 mg/dL (7-18) H Creatinine 0.7 MG/DL (0.55-1.30) Estimat Glomerular Filtration Rate mL/min (>60) Glucose Level 127 MG/DL (74-106) H Calcium Level 10.0 MG/DL (8.5-10.1) Total Bilirubin 0.5 MG/DL (0.2-1.0) Aspartate Amino Transf (AST/SGOT) 15 U/L (15-37) Alanine Aminotransferase (ALT/SGPT) 19 U/L (12-78) Alkaline Phosphatase 52 U/L (46-116) Pro-B-Type Natriuretic Peptide 535 pg/mL (0-125) H Total Protein 6.7 G/DL (6.4-8.2) Albumin 2.9 G/DL (3.4-5.0) L Globulin 3.8 g/dL Albumin/Globulin Ratio 0.8 (1.0-2.7) L Current Medications Medications (Trade) Dose Ordered Sig/Wilner Route PRN Reason Start Time Stop Time Status Last Admin Dose Admin Acetaminophen (Tylenol) 650 mg Q4H PRN ORAL Fever/Headache/Mild Pain 03/08/17 20:00 04/07/17 23:59 Allopurinol (Zyloprim) 100 mg DAILY ORAL 03/09/17 09:00 04/07/17 23:59 03/09/17 09:29 Amlodipine Besylate (Norvasc) 10 mg DAILY ORAL 03/04/17 12:00 04/03/17 11:59 03/09/17 09:29 Aspirin (Ecotrin) 81 mg DAILY ORAL 03/09/17 09:00 03/29/17 23:59 03/09/17 09:29 Bisacodyl (Dulcolax) 10 mg DAILYPRN PRN RECTAL Constipation Third Line Agent 03/08/17 18:15 04/07/17 23:59 Carvedilol (Coreg) 25 mg Q12HR ORAL 03/05/17 21:00 04/04/17 20:59 03/09/17 09:27 Dextrose (Dextrose 50%) STAT PRN IV Hypoglycemia 02/25/17 15:15 03/17/17 15:14 Escitalopram Oxalate (Lexapro) 10 mg DAILY ORAL 02/26/17 09:00 03/20/17 08:59 03/09/17 09:27 Haloperidol Lactate (Haldol) 2 mg Q4H PRN IM Agitation 02/25/17 15:15 03/27/17 15:14 03/08/17 15:58 Hydralazine HCl (Apresoline) 10 mg Q6HR NG 03/05/17 12:00 04/04/17 11:59 03/09/17 06:51 Hydralazine HCl (Apresoline) 25 mg Q4H PRN ORAL SBP > 160mmHg 02/25/17 15:15 03/27/17 15:14 03/04/17 08:30 Lidocaine (Xylocaine 1% MPF 5ml) 10 ml Q4H PRN HHN cough 02/25/17 15:15 03/19/17 15:14 Metoclopramide HCl (Reglan) 5 mg Q8HR IVP 03/04/17 22:00 04/03/17 21:59 03/09/17 06:51 Morphine Sulfate (Morphine Sulfate) 2 mg Q4H PRN IVP Pain 4-10 03/08/17 09:15 03/15/17 09:14 03/09/17 09:38 Ondansetron HCl (Zofran) 4 mg Q6H PRN IVP Nausea & Vomiting 02/25/17 15:15 03/17/17 15:14 03/09/17 09:27 Pantoprazole (Protonix) 40 mg DAILY IV 02/27/17 09:00 03/29/17 08:59 03/09/17 09:27 Polyethylene Glycol (Miralax) 17 gm DAILYPRN PRN ORAL Constipation First line agent 02/25/17 15:15 03/17/17 15:14 Pravastatin Sodium (Pravachol) 20 mg BEDTIME ORAL 02/25/17 21:00 03/18/17 20:59 03/08/17 22:43 Pregabalin (Lyrica) 150 mg THREE TIMES A DAY ORAL 02/25/17 18:00 03/18/17 12:59 03/09/17 09:29 Promethazine HCl/ Codeine (Phenergan with Codeine) 5 ml Q4H PRN ORAL UNRELIEVED COUGH 02/25/17 15:15 03/18/17 15:14 Ranitidine HCl (Zantac) 150 mg QPM ORAL 02/25/17 16:30 03/27/17 16:29 03/08/17 16:05 Alyse Traylor M.D. Mar 09, 2017 12:09
[2017-03-09 15:27] VITALS: BP 112/52
[2017-03-09] MEDS ORDERED: NS Irrig 1000ml ONE (16:01)
[2017-03-09] MEDS ORDERED: NS 275ml ONE (16:01)
--- NOTE | 2017-03-09 16:17 | General Progress Note ---
Assessment/Plan Status: stable Assessment/Plan Status: Acute renal failure- etiology? 1900 cc urine out after insertion of shi--JOSE MIGUEL: Moderate right hydronephrosis. Acute on Chronic respiratory failure- extubated now HTN High Cholestrol Pneumonia COPD , exac. Diastolic CHF, Mod MR h/o C dif colitis h/o Breast Ca Anemia Pulm HTN Moderate Plan: now extubated- post extubation care adjust BP meds K and Phos supplement as needed pulm support Allopurinol continue Shi- Avoid nephrotoxics JOSE MIGUEL: Moderate right hydronephrosis. Subjective ROS Limited/Unobtainable: No Constitutional: Reports: malaise Allergies: Coded Allergies: TETRACYCLINE (Unverified Allergy, Unknown, 07/24/14) Objective Last 24 Hour Vital Signs Date Time Temp Pulse Resp B/P (MAP) Pulse Ox O2 Delivery O2 Flow Rate FiO2 03/09/17 15:27 97.5 73 18 112/52 99 Nasal Cannula 2.0 03/09/17 14:23 97.2 03/09/17 13:24 112/55 03/09/17 12:00 97.2 66 18 111/58 96 Nasal Cannula 2.0 03/09/17 12:00 67 03/09/17 10:08 97.5 03/09/17 09:29 65 137/57 03/09/17 09:29 137/57 03/09/17 09:27 65 137/57 03/09/17 08:00 97.5 66 20 137/57 95 Nasal Cannula 2.0 03/09/17 08:00 65 03/09/17 06:51 136/68 03/09/17 04:12 69 03/09/17 04:00 97.5 70 20 136/68 96 Nasal Cannula 2.0 03/09/17 00:52 124/58 03/09/17 00:00 65 03/09/17 00:00 97.3 72 18 125/58 94 Nasal Cannula 2.0 03/08/17 22:43 68 117/56 03/08/17 20:00 98.1 68 18 117/56 98 Nasal Cannula 2.0 03/08/17 20:00 65 03/08/17 19:22 Nasal Cannula 3.0 32 03/08/17 19:22 97 Nasal Cannula 3.0 32 03/08/17 19:00 68 22 118/56 98 Nasal Cannula 2.0 03/08/17 18:00 63 22 112/54 100 Nasal Cannula 2.0 03/08/17 17:36 112/54 03/08/17 17:36 112/54 03/08/17 17:00 66 21 112/54 98 Nasal Cannula 2.0 Laboratory Tests 03/09/17 03:20: White Blood Count 10.9#H, Red Blood Count 2.98L, Hemoglobin 9.6L, Hematocrit 30.1L, Mean Corpuscular Volume 101H, Mean Corpuscular Hemoglobin 32.1H, Mean Corpuscular Hemoglobin Concent 31.8L, Red Cell Distribution Width 12.4, Platelet Count 268#, Mean Platelet Volume 8.0, Neutrophils (%) (Auto) 78.1H, Lymphocytes (%) (Auto) 15.5L, Monocytes (%) (Auto) 6.1, Eosinophils (%) (Auto) 0.2, Basophils (%) (Auto) 0.1, Sodium Level 140, Potassium Level 5.3H, Chloride Level 106, Carbon Dioxide Level 28, Anion Gap 6, Blood Urea Nitrogen 37H, Creatinine 0.7, Estimat Glomerular Filtration Rate , Glucose Level 127H, Calcium Level 10.0, Total Bilirubin 0.5, Aspartate Amino Transf (AST/SGOT) 15, Alanine Aminotransferase (ALT/SGPT) 19, Alkaline Phosphatase 52, Pro-B-Type Natriuretic Peptide 535H, Total Protein 6.7, Albumin 2.9L, Globulin 3.8, Albumin /Globulin Ratio 0.8L Height (Feet): 5 Height (Inches): 7.00 Weight (Pounds): 115 General Appearance: no apparent distress Objective no edema- no change in PE GENARO DUARTE Mar 09, 2017 16:17
--- NOTE | 2017-03-09 18:27 | Internal Med Progress Note ---
Subjective Physician Name Zeb Fuentes Attending Physician Jun Cedillo MD Current Medications Medications (Trade) Dose Ordered Sig/Wilner Route PRN Reason Start Time Stop Time Status Last Admin Dose Admin Acetaminophen (Tylenol) 650 mg Q4H PRN ORAL Fever/Headache/Mild Pain 03/08/17 20:00 04/07/17 23:59 Allopurinol (Zyloprim) 100 mg DAILY ORAL 03/09/17 09:00 04/07/17 23:59 03/09/17 09:29 Amlodipine Besylate (Norvasc) 10 mg DAILY ORAL 03/04/17 12:00 04/03/17 11:59 03/09/17 09:29 Aspirin (Ecotrin) 81 mg DAILY ORAL 03/09/17 09:00 03/29/17 23:59 03/09/17 09:29 Bisacodyl (Dulcolax) 10 mg DAILYPRN PRN RECTAL Constipation Third Line Agent 03/08/17 18:15 04/07/17 23:59 Carvedilol (Coreg) 25 mg Q12HR ORAL 03/05/17 21:00 04/04/17 20:59 03/09/17 09:27 Dextrose (Dextrose 50%) STAT PRN IV Hypoglycemia 02/25/17 15:15 03/17/17 15:14 Escitalopram Oxalate (Lexapro) 10 mg DAILY ORAL 02/26/17 09:00 03/20/17 08:59 03/09/17 09:27 Haloperidol Lactate (Haldol) 2 mg Q4H PRN IM Agitation 02/25/17 15:15 03/27/17 15:14 03/08/17 15:58 Hydralazine HCl (Apresoline) 10 mg Q6HR NG 03/05/17 12:00 04/04/17 11:59 03/09/17 18:22 Hydralazine HCl (Apresoline) 25 mg Q4H PRN ORAL SBP > 160mmHg 02/25/17 15:15 03/27/17 15:14 03/04/17 08:30 Lidocaine (Xylocaine 1% MPF 5ml) 10 ml Q4H PRN HHN cough 02/25/17 15:15 03/19/17 15:14 Metoclopramide HCl (Reglan) 5 mg Q8HR IVP 03/04/17 22:00 04/03/17 21:59 03/09/17 13:24 Morphine Sulfate (Morphine Sulfate) 2 mg Q4H PRN IVP Pain 4-10 03/08/17 09:15 03/15/17 09:14 03/09/17 15:26 Ondansetron HCl (Zofran) 4 mg Q6H PRN IVP Nausea & Vomiting 02/25/17 15:15 03/17/17 15:14 03/09/17 09:27 Pantoprazole (Protonix) 40 mg DAILY IV 02/27/17 09:00 03/29/17 08:59 03/09/17 09:27 Polyethylene Glycol (Miralax) 17 gm DAILYPRN PRN ORAL Constipation First line agent 02/25/17 15:15 03/17/17 15:14 Pravastatin Sodium (Pravachol) 20 mg BEDTIME ORAL 02/25/17 21:00 03/18/17 20:59 03/08/17 22:43 Pregabalin (Lyrica) 150 mg THREE TIMES A DAY ORAL 02/25/17 18:00 03/18/17 12:59 03/09/17 18:22 Promethazine HCl/ Codeine (Phenergan with Codeine) 5 ml Q4H PRN ORAL UNRELIEVED COUGH 02/25/17 15:15 03/18/17 15:14 Ranitidine HCl (Zantac) 150 mg QPM ORAL 02/25/17 16:30 03/27/17 16:29 03/09/17 18:22 Allergies: Coded Allergies: TETRACYCLINE (Unverified Allergy, Unknown, 07/24/14) Subjective 76 YO F admitted with shortness of breath. Now pneumonia. Cover for Int Med- Dr Cedillo. CAYETANO. Await swallow eval. Tolerating nasal canula Objective Last Vital Signs Date Time Temp Pulse Resp B/P (MAP) Pulse Ox O2 Delivery O2 Flow Rate FiO2 03/09/17 18:22 115/62 03/09/17 16:00 74 03/09/17 15:56 97.5 03/09/17 15:27 18 99 Nasal Cannula 2.0 03/08/17 19:22 32 Laboratory Tests Test 03/09/17 03:20 White Blood Count 10.9 K/UL (4.8-10.8) #H Red Blood Count 2.98 M/UL (4.20-5.40) L Hemoglobin 9.6 G/DL (12.0-16.0) L Hematocrit 30.1 % (37.0-47.0) L Mean Corpuscular Volume 101 FL (80-99) H Mean Corpuscular Hemoglobin 32.1 PG (27.0-31.0) H Mean Corpuscular Hemoglobin Concent 31.8 G/DL (32.0-36.0) L Red Cell Distribution Width 12.4 % (11.6-14.8) Platelet Count 268 K/UL (150-450) # Mean Platelet Volume 8.0 FL (6.5-10.1) Neutrophils (%) (Auto) 78.1 % (45.0-75.0) H Lymphocytes (%) (Auto) 15.5 % (20.0-45.0) L Monocytes (%) (Auto) 6.1 % (1.0-10.0) Eosinophils (%) (Auto) 0.2 % (0.0-3.0) Basophils (%) (Auto) 0.1 % (0.0-2.0) Sodium Level 140 MMOL/L (136-145) Potassium Level 5.3 MMOL/L (3.5-5.1) H Chloride Level 106 MMOL/L (98-107) Carbon Dioxide Level 28 MMOL/L (21-32) Anion Gap 6 mmol/L (5-15) Blood Urea Nitrogen 37 mg/dL (7-18) H Creatinine 0.7 MG/DL (0.55-1.30) Estimat Glomerular Filtration Rate mL/min (>60) Glucose Level 127 MG/DL (74-106) H Calcium Level 10.0 MG/DL (8.5-10.1) Total Bilirubin 0.5 MG/DL (0.2-1.0) Aspartate Amino Transf (AST/SGOT) 15 U/L (15-37) Alanine Aminotransferase (ALT/SGPT) 19 U/L (12-78) Alkaline Phosphatase 52 U/L (46-116) Pro-B-Type Natriuretic Peptide 535 pg/mL (0-125) H Total Protein 6.7 G/DL (6.4-8.2) Albumin 2.9 G/DL (3.4-5.0) L Globulin 3.8 g/dL Albumin/Globulin Ratio 0.8 (1.0-2.7) L Objective General Appearance: WD/WN, no apparent distress, alert EENT: PERRL/EOMI, normal ENT inspection, TMs normal Neck: non-tender, normal alignment, supple, normal inspection Cardiovascular: normal peripheral pulses, normal rate, regular rhythm, no gallop/murmur, no JVD Respiratory/Chest: nasal canula; chest wall non-tender, respiratory distress, decreased breath sounds, crackles/rales, rhonchi - bilaterally, expiratory wheezing Abdomen: normal bowel sounds, non tender, soft, no organomegaly, no mass Extremities: normal range of motion Neurologic: certified medicine aide II-XII 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 (8) Pneumonia Assessment & Plan: Continue Meropenem and vanco. See ID and pulmonary notes. (9) COPD exacerbation Assessment & Plan: Continue IV solumedrol and xopenex/atrovent nebs. See pulmonary note. (10) Diastolic CHF Assessment & Plan: See cardiology note. 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 S/P intubation to aerate left lung-see pulmonary note. D/W pulmonary Dr Hernandez. Extubated 03/07 (14) Respiratory failure requiring intubation Assessment & Plan: Extubated 03/07/17; tolerating nasal canula (15) Dysphagia Assessment & Plan: Await swallow eval Status: progressing ZEB FUENTES Mar 09, 2017 18:27
--- NOTE | 2017-03-09 19:13 | Cardiology Progress Note ---
Assessment/Plan Assessment/Plan 1. Respiratory failure. 2. Chronic obstructive pulmonary disease exacerbation. 3. Questionable pneumonia. 4. History of mitral regurgitation of significant degree. 5. History of subdural hematomas and intracranial hemorrhage. 6. History of breast cancer. 7. Anemia. 8. History of Clostridium difficile colitis. 9. History of anxiety. 10. Sinus tachycardia secondary to above. 11. Htn 12. CHF acute diastolic 13. l m bronchus occlusion with debris 14. lung collapase 15 Hypotension resolved 16. alkalosis resolved extubated doing well labs reviewed wbc elevated bp ok today tele sinus pro bnp not sig elevated Subjective Subjective extubated Objective Last 24 Hour Vital Signs Date Time Temp Pulse Resp B/P (MAP) Pulse Ox O2 Delivery O2 Flow Rate FiO2 03/09/17 18:22 115/62 03/09/17 16:00 74 03/09/17 15:56 97.5 03/09/17 15:27 97.5 73 18 112/52 99 Nasal Cannula 2.0 03/09/17 14:23 97.2 03/09/17 13:24 112/55 03/09/17 12:00 97.2 66 18 111/58 96 Nasal Cannula 2.0 03/09/17 12:00 67 03/09/17 09:29 65 137/57 03/09/17 09:29 137/57 03/09/17 09:27 65 137/57 03/09/17 08:00 97.5 66 20 137/57 95 Nasal Cannula 2.0 03/09/17 08:00 65 03/09/17 06:51 136/68 03/09/17 04:12 69 03/09/17 04:00 97.5 70 20 136/68 96 Nasal Cannula 2.0 03/09/17 00:52 124/58 03/09/17 00:00 65 03/09/17 00:00 97.3 72 18 125/58 94 Nasal Cannula 2.0 03/08/17 22:43 68 117/56 03/08/17 20:00 98.1 68 18 117/56 98 Nasal Cannula 2.0 03/08/17 20:00 65 03/08/17 19:22 Nasal Cannula 3.0 32 03/08/17 19:22 97 Nasal Cannula 3.0 32 General Appearance: no apparent distress, alert Intake and Output 03/09/17 03/10/17 19:00 07:00 Intake Total 660 ml Output Total 650 ml Balance 10 ml Free Water 180 ml Tube Feeding 480 ml Output Urine Total 650 ml Laboratory Tests Test 03/09/17 03:20 White Blood Count 10.9 K/UL (4.8-10.8) #H Red Blood Count 2.98 M/UL (4.20-5.40) L Hemoglobin 9.6 G/DL (12.0-16.0) L Hematocrit 30.1 % (37.0-47.0) L Mean Corpuscular Volume 101 FL (80-99) H Mean Corpuscular Hemoglobin 32.1 PG (27.0-31.0) H Mean Corpuscular Hemoglobin Concent 31.8 G/DL (32.0-36.0) L Red Cell Distribution Width 12.4 % (11.6-14.8) Platelet Count 268 K/UL (150-450) # Mean Platelet Volume 8.0 FL (6.5-10.1) Neutrophils (%) (Auto) 78.1 % (45.0-75.0) H Lymphocytes (%) (Auto) 15.5 % (20.0-45.0) L Monocytes (%) (Auto) 6.1 % (1.0-10.0) Eosinophils (%) (Auto) 0.2 % (0.0-3.0) Basophils (%) (Auto) 0.1 % (0.0-2.0) Sodium Level 140 MMOL/L (136-145) Potassium Level 5.3 MMOL/L (3.5-5.1) H Chloride Level 106 MMOL/L (98-107) Carbon Dioxide Level 28 MMOL/L (21-32) Anion Gap 6 mmol/L (5-15) Blood Urea Nitrogen 37 mg/dL (7-18) H Creatinine 0.7 MG/DL (0.55-1.30) Estimat Glomerular Filtration Rate mL/min (>60) Glucose Level 127 MG/DL (74-106) H Calcium Level 10.0 MG/DL (8.5-10.1) Total Bilirubin 0.5 MG/DL (0.2-1.0) Aspartate Amino Transf (AST/SGOT) 15 U/L (15-37) Alanine Aminotransferase (ALT/SGPT) 19 U/L (12-78) Alkaline Phosphatase 52 U/L (46-116) Pro-B-Type Natriuretic Peptide 535 pg/mL (0-125) H Total Protein 6.7 G/DL (6.4-8.2) Albumin 2.9 G/DL (3.4-5.0) L Globulin 3.8 g/dL Albumin/Globulin Ratio 0.8 (1.0-2.7) L JEFFERSON ROMEO Mar 09, 2017 19:13
[2017-03-09 20:00] VITALS: BP 122/65
--- NOTE | 2017-03-09 21:45 | General Progress Note ---
Assessment/Plan Status: stable, progressing Assessment/Plan anxiety d/o' encephalopathy -cont current meds -provided ro/st -cont ativan Subjective Neurologic/Psychiatric: Reports: anxiety Allergies: Coded Allergies: TETRACYCLINE (Unverified Allergy, Unknown, 07/24/14) Subjective the pt was is improving has still episodes of confusion Objective Last 24 Hour Vital Signs Date Time Temp Pulse Resp B/P (MAP) Pulse Ox O2 Delivery O2 Flow Rate FiO2 03/09/17 21:15 97.8 03/09/17 20:45 76 122/65 03/09/17 20:00 76 03/09/17 20:00 97.8 76 18 122/65 99 Nasal Cannula 2.0 03/09/17 19:21 97.5 03/09/17 18:22 115/62 03/09/17 16:00 74 03/09/17 15:27 97.5 73 18 112/52 99 Nasal Cannula 2.0 03/09/17 13:24 112/55 03/09/17 12:00 97.2 66 18 111/58 96 Nasal Cannula 2.0 03/09/17 12:00 67 03/09/17 09:29 65 137/57 03/09/17 09:29 137/57 03/09/17 09:27 65 137/57 03/09/17 08:00 97.5 66 20 137/57 95 Nasal Cannula 2.0 03/09/17 08:00 65 03/09/17 06:51 136/68 03/09/17 04:12 69 03/09/17 04:00 97.5 70 20 136/68 96 Nasal Cannula 2.0 03/09/17 00:52 124/58 03/09/17 00:00 65 03/09/17 00:00 97.3 72 18 125/58 94 Nasal Cannula 2.0 03/08/17 22:43 68 117/56 Intake and Output 03/09/17 03/10/17 19:00 07:00 Intake Total 710 ml Output Total 650 ml Balance 60 ml Intake Oral 50 ml Free Water 180 ml Tube Feeding 480 ml Output Urine Total 650 ml Laboratory Tests 03/09/17 03:20: White Blood Count 10.9#H, Red Blood Count 2.98L, Hemoglobin 9.6L, Hematocrit 30.1L, Mean Corpuscular Volume 101H, Mean Corpuscular Hemoglobin 32.1H, Mean Corpuscular Hemoglobin Concent 31.8L, Red Cell Distribution Width 12.4, Platelet Count 268#, Mean Platelet Volume 8.0, Neutrophils (%) (Auto) 78.1H, Lymphocytes (%) (Auto) 15.5L, Monocytes (%) (Auto) 6.1, Eosinophils (%) (Auto) 0.2, Basophils (%) (Auto) 0.1, Sodium Level 140, Potassium Level 5.3H, Chloride Level 106, Carbon Dioxide Level 28, Anion Gap 6, Blood Urea Nitrogen 37H, Creatinine 0.7, Estimat Glomerular Filtration Rate , Glucose Level 127H, Calcium Level 10.0, Total Bilirubin 0.5, Aspartate Amino Transf (AST/SGOT) 15, Alanine Aminotransferase (ALT/SGPT) 19, Alkaline Phosphatase 52, Pro-B-Type Natriuretic Peptide 535H, Total Protein 6.7, Albumin 2.9L, Globulin 3.8, Albumin /Globulin Ratio 0.8L Height (Feet): 5 Height (Inches): 7.00 Weight (Pounds): 115 General Appearance: no apparent distress, alert, obese Neurologic: alert, oriented x 3, responsive, depressed affect Wan Stern M.D. Mar 09, 2017 21:45
[2017-03-10] VITALS: BP 100/59
[2017-03-10] MEDS: HydrALAZINE 10mg Tab NG SCH ×4 (00:08→17:31)
[2017-03-10] MEDS: Morphine Sulfate 4mg/ml Inj IVP PRN ×4 (03:18→22:57)
[2017-03-10 04:00] VITALS: BP 135/67
[2017-03-10 05:04] LABS: BASOPHILS % (AUTO) 0.2 % (0.0-2.0); EOSINOPHILS % (AUTO) 0.8 % (0.0-3.0); HEMATOCRIT 28.7 % (37.0-47.0); HEMOGLOBIN 9.2 G/DL (12.0-16.0); LYMPHOCYTES % (AUTO) 18.2 % (20.0-45.0); MEAN CORPUSCULAR VOLUME 101 FL (80-99); MONOCYTES % (AUTO) 6.4 % (1.0-10.0); NEUTROPHILS % (AUTO) 74.4 % (45.0-75.0); PLATELET COUNT 247 K/UL (150-450); RED BLOOD COUNT 2.83 M/UL (4.20-5.40); RED CELL DISTRIBUTION WIDTH 12.7 % (11.6-14.8); WHITE BLOOD COUNT 11.3 K/UL (4.8-10.8)
[2017-03-10 05:51] LABS: ANION GAP 7 mmol/L (5-15); BLOOD UREA NITROGEN 38 mg/dL (7-18); CALCIUM 9.5 MG/DL (8.5-10.1); CARBON DIOXIDE 32 MMOL/L (21-32); CHLORIDE 101 MMOL/L (98-107); CREATININE 0.7 MG/DL (0.55-1.30); POTASSIUM 3.9 MMOL/L (3.5-5.1); SODIUM 140 MMOL/L (136-145)
[2017-03-10] MEDS: Metoclopramide 10mg/2ml Inj IVP SCH ×3 (05:51→21:49)
[2017-03-10 08:00] VITALS: BP 148/54
[2017-03-10] MEDS: Carvedilol 25mg Tab ORAL SCH ×2 (09:32→20:44)
[2017-03-10] MEDS: Aspirin EC 81mg tab ORAL SCH (09:33)
[2017-03-10] MEDS: Lyrica 75mg cap ORAL SCH ×3 (09:33→17:31)
[2017-03-10] MEDS: Pantoprazole Inj IV SCH (09:33)
[2017-03-10] MEDS: Allopurinol 100mg Tab ORAL SCH (09:33)
[2017-03-10 12:00] VITALS: BP 108/56
--- NOTE | 2017-03-10 12:08 | Pulmonology Progress Note ---
Assessment/Plan Problems: (1) Acute and chronic respiratory failure ([id number]) (2) COPD exacerbation (3) Pneumonia (4) Fibromyalgia (5) History of breast cancer (6) Limited mobility Assessment/Plan swallow study noted dc NG tube feeding advance diet as tolerated on Nasal cannula dc steroids pt/ot chest PT keep in [place] Subjective ROS Limited/Unobtainable: No Constitutional: Reports: no symptoms HEENT: Repors: no symptoms Respiratory: Reports: no symptoms Allergies: Coded Allergies: TETRACYCLINE (Unverified Allergy, Unknown, 07/24/14) Objective Last 24 Hour Vital Signs Date Time Temp Pulse Resp B/P (MAP) Pulse Ox O2 Delivery O2 Flow Rate FiO2 03/10/17 09:32 75 148/54 03/10/17 09:32 75 148/54 03/10/17 08:00 75 03/10/17 08:00 98.1 71 18 148/54 92 Nasal Cannula 3.0 03/10/17 07:43 Nasal Cannula 3.0 32 03/10/17 07:42 93 Nasal Cannula 3.0 32 03/10/17 05:51 135/67 03/10/17 04:00 98.4 74 20 135/67 99 Nasal Cannula 2.0 03/10/17 04:00 78 03/10/17 03:48 97.7 03/10/17 00:08 100/59 03/10/17 00:00 97.7 69 18 100/59 99 Nasal Cannula 2.0 03/10/17 00:00 68 03/09/17 20:45 76 122/65 03/09/17 20:00 76 03/09/17 20:00 97.8 76 18 122/65 99 Nasal Cannula 2.0 03/09/17 19:30 99 Nasal Cannula 3.0 32 03/09/17 19:30 Nasal Cannula 3.0 32 03/09/17 19:21 97.5 03/09/17 18:22 115/62 03/09/17 16:00 74 03/09/17 15:27 97.5 73 18 112/52 99 Nasal Cannula 2.0 03/09/17 13:24 112/55 Intake and Output 03/10/17 03/11/17 19:00 07:00 Intake Total 90 ml Balance 90 ml Tube Feeding 90 ml # Bowel Movements 1 General Appearance: cachetic HEENT: normocephalic, anicteric Respiratory/Chest: lungs clear, accessory muscle use, crackles/rales Cardiovascular: normal peripheral pulses, normal rate Abdomen: normal bowel sounds, soft, non tender Genitourinary: normal external genitalia Extremities: no clubbing Skin: no ulcers Neurologic/Psychiatric: oriented x 3 Lymphatic: no neck adenopathy Laboratory Tests 03/10/17 03:50: White Blood Count 11.3H, Red Blood Count 2.83L, Hemoglobin 9.2L, Hematocrit 28.7L, Mean Corpuscular Volume 101H, Mean Corpuscular Hemoglobin 32.6H, Mean Corpuscular Hemoglobin Concent 32.2, Red Cell Distribution Width 12.7, Platelet Count 247, Mean Platelet Volume 8.6, Neutrophils (%) (Auto) 74.4, Lymphocytes (% ) (Auto) 18.2L, Monocytes (%) (Auto) 6.4, Eosinophils (%) (Auto) 0.8, Basophils (%) (Auto) 0.2, Sodium Level 140, Potassium Level 3.9, Chloride Level 101, Carbon Dioxide Level 32, Anion Gap 7, Blood Urea Nitrogen 38H, Creatinine 0.7, Estimat Glomerular Filtration Rate , Glucose Level 106, Calcium Level 9.5 Current Medications Medications (Trade) Dose Ordered Sig/Wilner Route PRN Reason Start Time Stop Time Status Last Admin Dose Admin Acetaminophen (Tylenol) 650 mg Q4H PRN ORAL Fever/Headache/Mild Pain 03/08/17 20:00 04/07/17 23:59 Allopurinol (Zyloprim) 100 mg DAILY ORAL 03/09/17 09:00 04/07/17 23:59 03/10/17 09:33 Amlodipine Besylate (Norvasc) 10 mg DAILY ORAL 03/04/17 12:00 04/03/17 11:59 03/10/17 09:32 Aspirin (Ecotrin) 81 mg DAILY ORAL 03/09/17 09:00 03/29/17 23:59 03/10/17 09:33 Bisacodyl (Dulcolax) 10 mg DAILYPRN PRN RECTAL Constipation Third Line Agent 03/08/17 18:15 04/07/17 23:59 Carvedilol (Coreg) 25 mg Q12HR ORAL 03/05/17 21:00 04/04/17 20:59 03/10/17 09:32 Dextrose (Dextrose 50%) STAT PRN IV Hypoglycemia 02/25/17 15:15 03/17/17 15:14 Escitalopram Oxalate (Lexapro) 10 mg DAILY ORAL 02/26/17 09:00 03/20/17 08:59 03/10/17 09:32 Haloperidol Lactate (Haldol) 2 mg Q4H PRN IM Agitation 02/25/17 15:15 03/27/17 15:14 03/08/17 15:58 Hydralazine HCl (Apresoline) 10 mg Q6HR NG 03/05/17 12:00 04/04/17 11:59 03/10/17 05:51 Hydralazine HCl (Apresoline) 25 mg Q4H PRN ORAL SBP > 160mmHg 02/25/17 15:15 03/27/17 15:14 03/04/17 08:30 Lidocaine (Xylocaine 1% MPF 5ml) 10 ml Q4H PRN HHN cough 02/25/17 15:15 03/19/17 15:14 Metoclopramide HCl (Reglan) 5 mg Q8HR IVP 03/04/17 22:00 04/03/17 21:59 03/10/17 05:51 Morphine Sulfate (Morphine Sulfate) 2 mg Q4H PRN IVP Pain 4-10 03/08/17 09:15 03/15/17 09:14 03/10/17 07:55 Ondansetron HCl (Zofran) 4 mg Q6H PRN IVP Nausea & Vomiting 02/25/17 15:15 03/17/17 15:14 03/10/17 04:28 Pantoprazole (Protonix) 40 mg DAILY IV 02/27/17 09:00 03/29/17 08:59 03/10/17 09:33 Polyethylene Glycol (Miralax) 17 gm DAILYPRN PRN ORAL Constipation First line agent 02/25/17 15:15 03/17/17 15:14 Pravastatin Sodium (Pravachol) 20 mg BEDTIME ORAL 02/25/17 21:00 03/18/17 20:59 03/09/17 20:45 Pregabalin (Lyrica) 150 mg THREE TIMES A DAY ORAL 02/25/17 18:00 03/18/17 12:59 03/10/17 09:33 Promethazine HCl/ Codeine (Phenergan with Codeine) 5 ml Q4H PRN ORAL UNRELIEVED COUGH 02/25/17 15:15 03/18/17 15:14 Ranitidine HCl (Zantac) 150 mg QPM ORAL 02/25/17 16:30 03/27/17 16:29 03/09/17 18:22 TWIN FONTANEZ Mar 10, 2017 12:08
--- NOTE | 2017-03-10 12:55 | Infectious Diseases Prog Note ---
Assessment/Plan Assessment/Plan Assessment/Plan Abx: IV Vanco 02/15-03/01 Cefepime 02/15-02/18 Meropenem 02/18-03/03 Assesment: Low grade fever-resolved -u/a mild pyuria (wbc 5-10); ucx >100k yeast (colonizer) -sp cx 03/06 <1+ Proteus Mirabilis (S Ancef/CTX, bactrim; R Cipro/levo); s/p recent PNA tx -venous duplex No DVT -Bcx 03/06 NTD -CXR 03/05: There is suggestion of slightly increased pleural fluid on the left. Hazy opacity in the right lung is stable Leukocytosis, mild - recurrent, (s/p steroids 03/07) Acute hypoxic resp failure, - combination of COPD exacerbation and PNA; worsened 02/18; Intubated 02/26; extubated 03/07 -venous duplex 02/16 no DVT PNA- SGS(-), Cx Neg; s/p Rx - SP bronch 02/26 (collected 02/26, however received on the lab 03/03??): BAL cx NTD -CXR 03/03: Stable bilateral interstitial and alveolar opacities, probable small left pleural effusion, elevation left hemidiaphragm -CXR 03/01: Patchy, mainly interstitial appearing disease noted bilaterally. Findings may be due to infiltrates or CHF - CT Chest 02/24: Near-complete occlusion of the left mainstem bronchus and proximal lobar bronchi, probably by debris. Extensive resultant atelectasis and consolidation of nearly the entire left lung. Less extensive consolidation within the right lung, nonspecific as regards etiology, likely secondary to pneumonia or edema -CXR 02/23: Better inspiration currently. Overall improved aeration of the right mid and lower lung, with decreased dense consolidation and is still fairly extensive parenchymal opacity. The right pleural space is clear. Large left pleural effusion is again demonstrated, and is increased from the prior exam. There is also increasing consolidation of the residual aerated lung in the left upper hemithorax. -CXR: Limited evaluation due to significant degree of soft tissue attenuation. Suspect pneumonia at the right lung base. -Cr Ag serum neg; cocci ab pending L pleural effusion - improved COPD on home O2 Hx of Cdiff DM2 Chronic abd pain hx of MRSA bacteremia 07/2015 TCA allergy Full Code fibromyalgia, HTN, HLD, R breast cancer,Tobacco abuse (stopped 4 years ago), Anxiety, AOCD Plan: -Continue to monitor off abx; if febrile, increased leukocytosis, oxygen requirements or worsenign CXR- start IV Ceftriaxone for Proteus on sputum -s/p 14d IV Meropenem 03/03 -s/p 14 d IV Vancomycin 03/01 -s/p 6d prophylactic PO vanco 02/21 -s/p 4 d Cefepime 02/18 -f/u Cocci ab -Monitor CBC/BMP, temperatures -Aspiration precautions - vent support, wean as tolerated Subjective Constitutional: Denies: no symptoms, fever, chills, fatigue, anorexia, drenching sweats, other Allergies: Coded Allergies: TETRACYCLINE (Unverified Allergy, Unknown, 07/24/14) Objective Vital Signs Last 24 Hour Vital Signs Date Time Temp Pulse Resp B/P (MAP) Pulse Ox O2 Delivery O2 Flow Rate FiO2 03/10/17 09:32 75 148/54 03/10/17 09:32 75 148/54 03/10/17 08:00 75 03/10/17 08:00 98.1 71 18 148/54 92 Nasal Cannula 3.0 03/10/17 07:43 Nasal Cannula 3.0 32 03/10/17 07:42 93 Nasal Cannula 3.0 32 03/10/17 05:51 135/67 03/10/17 04:00 98.4 74 20 135/67 99 Nasal Cannula 2.0 03/10/17 04:00 78 03/10/17 03:48 97.7 03/10/17 00:08 100/59 03/10/17 00:00 97.7 69 18 100/59 99 Nasal Cannula 2.0 03/10/17 00:00 68 03/09/17 20:45 76 122/65 03/09/17 20:00 76 03/09/17 20:00 97.8 76 18 122/65 99 Nasal Cannula 2.0 03/09/17 19:30 99 Nasal Cannula 3.0 32 03/09/17 19:30 Nasal Cannula 3.0 32 03/09/17 19:21 97.5 03/09/17 18:22 115/62 03/09/17 16:00 74 03/09/17 15:27 97.5 73 18 112/52 99 Nasal Cannula 2.0 03/09/17 13:24 112/55 Height (Feet): 5 Height (Inches): 7.00 Weight (Pounds): 114 HEENT: anicteric Respiratory/Chest: no accessory muscle use Cardiovascular: regularly irregular Abdomen: non distended Laboratory Tests Test 03/10/17 03:50 White Blood Count 11.3 K/UL (4.8-10.8) H Red Blood Count 2.83 M/UL (4.20-5.40) L Hemoglobin 9.2 G/DL (12.0-16.0) L Hematocrit 28.7 % (37.0-47.0) L Mean Corpuscular Volume 101 FL (80-99) H Mean Corpuscular Hemoglobin 32.6 PG (27.0-31.0) H Mean Corpuscular Hemoglobin Concent 32.2 G/DL (32.0-36.0) Red Cell Distribution Width 12.7 % (11.6-14.8) Platelet Count 247 K/UL (150-450) Mean Platelet Volume 8.6 FL (6.5-10.1) Neutrophils (%) (Auto) 74.4 % (45.0-75.0) Lymphocytes (%) (Auto) 18.2 % (20.0-45.0) L Monocytes (%) (Auto) 6.4 % (1.0-10.0) Eosinophils (%) (Auto) 0.8 % (0.0-3.0) Basophils (%) (Auto) 0.2 % (0.0-2.0) Sodium Level 140 MMOL/L (136-145) Potassium Level 3.9 MMOL/L (3.5-5.1) Chloride Level 101 MMOL/L (98-107) Carbon Dioxide Level 32 MMOL/L (21-32) Anion Gap 7 mmol/L (5-15) Blood Urea Nitrogen 38 mg/dL (7-18) H Creatinine 0.7 MG/DL (0.55-1.30) Estimat Glomerular Filtration Rate mL/min (>60) Glucose Level 106 MG/DL (74-106) Calcium Level 9.5 MG/DL (8.5-10.1) Current Medications Medications (Trade) Dose Ordered Sig/Wilner Route PRN Reason Start Time Stop Time Status Last Admin Dose Admin Acetaminophen (Tylenol) 650 mg Q4H PRN ORAL Fever/Headache/Mild Pain 03/08/17 20:00 04/07/17 23:59 Allopurinol (Zyloprim) 100 mg DAILY ORAL 03/09/17 09:00 04/07/17 23:59 03/10/17 09:33 Amlodipine Besylate (Norvasc) 10 mg DAILY ORAL 03/04/17 12:00 04/03/17 11:59 03/10/17 09:32 Aspirin (Ecotrin) 81 mg DAILY ORAL 03/09/17 09:00 03/29/17 23:59 03/10/17 09:33 Bisacodyl (Dulcolax) 10 mg DAILYPRN PRN RECTAL Constipation Third Line Agent 03/08/17 18:15 04/07/17 23:59 Carvedilol (Coreg) 25 mg Q12HR ORAL 03/05/17 21:00 04/04/17 20:59 03/10/17 09:32 Dextrose (Dextrose 50%) STAT PRN IV Hypoglycemia 02/25/17 15:15 03/17/17 15:14 Escitalopram Oxalate (Lexapro) 10 mg DAILY ORAL 02/26/17 09:00 03/20/17 08:59 03/10/17 09:32 Haloperidol Lactate (Haldol) 2 mg Q4H PRN IM Agitation 02/25/17 15:15 03/27/17 15:14 03/08/17 15:58 Hydralazine HCl (Apresoline) 10 mg Q6HR NG 03/05/17 12:00 04/04/17 11:59 03/10/17 05:51 Hydralazine HCl (Apresoline) 25 mg Q4H PRN ORAL SBP > 160mmHg 02/25/17 15:15 03/27/17 15:14 03/04/17 08:30 Lidocaine (Xylocaine 1% MPF 5ml) 10 ml Q4H PRN HHN cough 02/25/17 15:15 03/19/17 15:14 Metoclopramide HCl (Reglan) 5 mg Q8HR IVP 03/04/17 22:00 04/03/17 21:59 03/10/17 05:51 Morphine Sulfate (Morphine Sulfate) 2 mg Q4H PRN IVP Pain 4-10 10/29/17 09:15 03/15/17 09:14 03/10/17 07:55 Ondansetron HCl (Zofran) 4 mg Q6H PRN IVP Nausea & Vomiting 02/25/17 15:15 03/17/17 15:14 03/10/17 04:28 Pantoprazole (Protonix) 40 mg DAILY IV 02/27/17 09:00 03/29/17 08:59 03/10/17 09:33 Polyethylene Glycol (Miralax) 17 gm DAILYPRN PRN ORAL Constipation First line agent 02/25/17 15:15 03/17/17 15:14 Pravastatin Sodium (Pravachol) 20 mg BEDTIME ORAL 02/25/17 21:00 03/18/17 20:59 03/09/17 20:45 Pregabalin (Lyrica) 150 mg THREE TIMES A DAY ORAL 02/25/17 18:00 03/18/17 12:59 03/10/17 09:33 Promethazine HCl/ Codeine (Phenergan with Codeine) 5 ml Q4H PRN ORAL UNRELIEVED COUGH 02/25/17 15:15 03/18/17 15:14 Ranitidine HCl (Zantac) 150 mg QPM ORAL 02/25/17 16:30 03/27/17 16:29 03/09/17 18:22 ORLANDO RODRIGUEZ M.D. Mar 10, 2017 12:55
--- NOTE | 2017-03-10 14:00 | General Progress Note ---
Assessment/Plan Status: stable, progressing Assessment/Plan anxiety d/o' encephalopathy -cont current meds -provided ro/st -cont ativan Subjective Neurologic/Psychiatric: Reports: anxiety, depressed, emotional problems Allergies: Coded Allergies: TETRACYCLINE (Unverified Allergy, Unknown, 07/24/14) Subjective the pt was is improving Objective Last 24 Hour Vital Signs Date Time Temp Pulse Resp B/P (MAP) Pulse Ox O2 Delivery O2 Flow Rate FiO2 03/10/17 12:00 108/56 03/10/17 12:00 98.0 75 18 108/56 95 Nasal Cannula 3.0 03/10/17 09:32 75 148/54 03/10/17 09:32 75 148/54 03/10/17 08:00 75 03/10/17 08:00 98.1 71 18 148/54 92 Nasal Cannula 3.0 03/10/17 07:43 Nasal Cannula 3.0 32 03/10/17 07:42 93 Nasal Cannula 3.0 32 03/10/17 05:51 135/67 03/10/17 04:00 98.4 74 20 135/67 99 Nasal Cannula 2.0 03/10/17 04:00 78 03/10/17 03:48 97.7 03/10/17 00:08 100/59 03/10/17 00:00 97.7 69 18 100/59 99 Nasal Cannula 2.0 03/10/17 00:00 68 03/09/17 20:45 76 122/65 03/09/17 20:00 76 03/09/17 20:00 97.8 76 18 122/65 99 Nasal Cannula 2.0 03/09/17 19:30 99 Nasal Cannula 3.0 32 03/09/17 19:30 Nasal Cannula 3.0 32 03/09/17 19:21 97.5 03/09/17 18:22 115/62 03/09/17 16:00 74 03/09/17 15:27 97.5 73 18 112/52 99 Nasal Cannula 2.0 Intake and Output 03/10/17 03/11/17 19:00 07:00 Intake Total 90 ml Balance 90 ml Tube Feeding 90 ml # Bowel Movements 2 Laboratory Tests 03/10/17 03:50: White Blood Count 11.3H, Red Blood Count 2.83L, Hemoglobin 9.2L, Hematocrit 28.7L, Mean Corpuscular Volume 101H, Mean Corpuscular Hemoglobin 32.6H, Mean Corpuscular Hemoglobin Concent 32.2, Red Cell Distribution Width 12.7, Platelet Count 247, Mean Platelet Volume 8.6, Neutrophils (%) (Auto) 74.4, Lymphocytes (% ) (Auto) 18.2L, Monocytes (%) (Auto) 6.4, Eosinophils (%) (Auto) 0.8, Basophils (%) (Auto) 0.2, Sodium Level 140, Potassium Level 3.9, Chloride Level 101, Carbon Dioxide Level 32, Anion Gap 7, Blood Urea Nitrogen 38H, Creatinine 0.7, Estimat Glomerular Filtration Rate , Glucose Level 106, Calcium Level 9.5 Height (Feet): 5 Height (Inches): 7.00 Weight (Pounds): 114 General Appearance: no apparent distress, alert, overweight Neurologic: alert, oriented x 3, responsive, depressed affect Wan Stern M.D. Mar 10, 2017 14:00
--- NOTE | 2017-03-10 15:03 | Cardiology Progress Note ---
Assessment/Plan Assessment/Plan 1. Respiratory failure. 2. Chronic obstructive pulmonary disease exacerbation. 3. Questionable pneumonia. 4. History of mitral regurgitation of significant degree. 5. History of subdural hematomas and intracranial hemorrhage. 6. History of breast cancer. 7. Anemia. 8. History of Clostridium difficile colitis. 9. History of anxiety. 10. Sinus tachycardia secondary to above. 11. Htn 12. CHF acute diastolic 13. l m bronchus occlusion with debris 14. lung collapase 15 Hypotension resolved 16. alkalosis resolved extubated doing well labs reviewed wbc elevated bp ok today tele sinus pro bnp not sig elevated watch pleural effusion Subjective Cardiovascular: Denies: chest pain Respiratory: Denies: shortness of breath Gastrointestinal/Abdominal: Denies: abdominal pain Objective Last 24 Hour Vital Signs Date Time Temp Pulse Resp B/P (MAP) Pulse Ox O2 Delivery O2 Flow Rate FiO2 03/10/17 12:00 79 03/10/17 12:00 108/56 03/10/17 12:00 98.0 75 18 108/56 95 Nasal Cannula 3.0 03/10/17 09:32 75 148/54 03/10/17 09:32 75 148/54 03/10/17 08:00 75 03/10/17 08:00 98.1 71 18 148/54 92 Nasal Cannula 3.0 03/10/17 07:43 Nasal Cannula 3.0 32 03/10/17 07:42 93 Nasal Cannula 3.0 32 03/10/17 05:51 135/67 03/10/17 04:00 98.4 74 20 135/67 99 Nasal Cannula 2.0 03/10/17 04:00 78 03/10/17 03:48 97.7 03/10/17 00:08 100/59 03/10/17 00:00 97.7 69 18 100/59 99 Nasal Cannula 2.0 03/10/17 00:00 68 03/09/17 20:45 76 122/65 03/09/17 20:00 76 03/09/17 20:00 97.8 76 18 122/65 99 Nasal Cannula 2.0 03/09/17 19:30 99 Nasal Cannula 3.0 32 03/09/17 19:30 Nasal Cannula 3.0 32 03/09/17 19:21 97.5 03/09/17 18:22 115/62 03/09/17 16:00 74 03/09/17 15:27 97.5 73 18 112/52 99 Nasal Cannula 2.0 General Appearance: no apparent distress, alert Neck: no JVD Cardiovascular: normal rate, regular rhythm Respiratory/Chest: lungs clear Abdomen: normal bowel sounds, non tender, soft Extremities: no swelling Intake and Output 03/10/17 03/11/17 19:00 07:00 Intake Total 190 ml Balance 190 ml Intake Oral 100 ml Tube Feeding 90 ml # Bowel Movements 3 Laboratory Tests Test 03/10/17 03:50 White Blood Count 11.3 K/UL (4.8-10.8) H Red Blood Count 2.83 M/UL (4.20-5.40) L Hemoglobin 9.2 G/DL (12.0-16.0) L Hematocrit 28.7 % (37.0-47.0) L Mean Corpuscular Volume 101 FL (80-99) H Mean Corpuscular Hemoglobin 32.6 PG (27.0-31.0) H Mean Corpuscular Hemoglobin Concent 32.2 G/DL (32.0-36.0) Red Cell Distribution Width 12.7 % (11.6-14.8) Platelet Count 247 K/UL (150-450) Mean Platelet Volume 8.6 FL (6.5-10.1) Neutrophils (%) (Auto) 74.4 % (45.0-75.0) Lymphocytes (%) (Auto) 18.2 % (20.0-45.0) L Monocytes (%) (Auto) 6.4 % (1.0-10.0) Eosinophils (%) (Auto) 0.8 % (0.0-3.0) Basophils (%) (Auto) 0.2 % (0.0-2.0) Sodium Level 140 MMOL/L (136-145) Potassium Level 3.9 MMOL/L (3.5-5.1) Chloride Level 101 MMOL/L (98-107) Carbon Dioxide Level 32 MMOL/L (21-32) Anion Gap 7 mmol/L (5-15) Blood Urea Nitrogen 38 mg/dL (7-18) H Creatinine 0.7 MG/DL (0.55-1.30) Estimat Glomerular Filtration Rate mL/min (>60) Glucose Level 106 MG/DL (74-106) Calcium Level 9.5 MG/DL (8.5-10.1) JEFFERSON ROMEO Mar 10, 2017 15:03
--- NOTE | 2017-03-10 15:48 | General Progress Note ---
Assessment/Plan Status: stable Assessment/Plan Status: Acute renal failure- etiology? 1900 cc urine out after insertion of shi--JOSE MIGUEL: Moderate right hydronephrosis. Acute on Chronic respiratory failure- extubated now HTN High Cholestrol Pneumonia COPD , exac. Diastolic CHF, Mod MR h/o C dif colitis h/o Breast Ca Anemia Pulm HTN Moderate Plan: now extubated- post extubation care adjust BP meds K and Phos supplement as needed pulm support Allopurinol continue Shi- Avoid nephrotoxics JOSE MIGUEL: Moderate right hydronephrosis. Subjective ROS Limited/Unobtainable: No Constitutional: Reports: malaise Allergies: Coded Allergies: TETRACYCLINE (Unverified Allergy, Unknown, 07/24/14) Objective Last 24 Hour Vital Signs Date Time Temp Pulse Resp B/P (MAP) Pulse Ox O2 Delivery O2 Flow Rate FiO2 03/10/17 12:00 79 03/10/17 12:00 108/56 03/10/17 12:00 98.0 75 18 108/56 95 Nasal Cannula 3.0 03/10/17 09:32 75 148/54 03/10/17 09:32 75 148/54 03/10/17 08:00 75 03/10/17 08:00 98.1 71 18 148/54 92 Nasal Cannula 3.0 03/10/17 07:43 Nasal Cannula 3.0 32 03/10/17 07:42 93 Nasal Cannula 3.0 32 03/10/17 05:51 135/67 03/10/17 04:00 98.4 74 20 135/67 99 Nasal Cannula 2.0 03/10/17 04:00 78 03/10/17 03:48 97.7 03/10/17 00:08 100/59 03/10/17 00:00 97.7 69 18 100/59 99 Nasal Cannula 2.0 03/10/17 00:00 68 03/09/17 20:45 76 122/65 03/09/17 20:00 76 03/09/17 20:00 97.8 76 18 122/65 99 Nasal Cannula 2.0 03/09/17 19:30 99 Nasal Cannula 3.0 32 03/09/17 19:30 Nasal Cannula 3.0 32 03/09/17 19:21 97.5 03/09/17 18:22 115/62 03/09/17 16:00 74 Intake and Output 03/10/17 03/11/17 19:00 07:00 Intake Total 190 ml Balance 190 ml Intake Oral 100 ml Tube Feeding 90 ml # Bowel Movements 3 Laboratory Tests 03/10/17 03:50: White Blood Count 11.3H, Red Blood Count 2.83L, Hemoglobin 9.2L, Hematocrit 28.7L, Mean Corpuscular Volume 101H, Mean Corpuscular Hemoglobin 32.6H, Mean Corpuscular Hemoglobin Concent 32.2, Red Cell Distribution Width 12.7, Platelet Count 247, Mean Platelet Volume 8.6, Neutrophils (%) (Auto) 74.4, Lymphocytes (% ) (Auto) 18.2L, Monocytes (%) (Auto) 6.4, Eosinophils (%) (Auto) 0.8, Basophils (%) (Auto) 0.2, Sodium Level 140, Potassium Level 3.9, Chloride Level 101, Carbon Dioxide Level 32, Anion Gap 7, Blood Urea Nitrogen 38H, Creatinine 0.7, Estimat Glomerular Filtration Rate , Glucose Level 106, Calcium Level 9.5 Height (Feet): 5 Height (Inches): 7.00 Weight (Pounds): 114 General Appearance: no apparent distress Objective no edema- no change in PE GENARO DUARTE Mar 10, 2017 15:48
[2017-03-10 16:00] VITALS: BP 96/40
--- NOTE | 2017-03-10 18:51 | Internal Med Progress Note ---
Subjective Date of Service: Mar 10, 2017 Physician Name Zeb Fuentes Attending Physician Jun Cedillo MD Current Medications Medications (Trade) Dose Ordered Sig/Wilner Route PRN Reason Start Time Stop Time Status Last Admin Dose Admin Acetaminophen (Tylenol) 650 mg Q4H PRN ORAL Fever/Headache/Mild Pain 03/08/17 20:00 04/07/17 23:59 Allopurinol (Zyloprim) 100 mg DAILY ORAL 03/09/17 09:00 04/07/17 23:59 03/10/17 09:33 Amlodipine Besylate (Norvasc) 10 mg DAILY ORAL 03/04/17 12:00 04/03/17 11:59 03/10/17 09:32 Aspirin (Ecotrin) 81 mg DAILY ORAL 03/09/17 09:00 03/29/17 23:59 03/10/17 09:33 Bisacodyl (Dulcolax) 10 mg DAILYPRN PRN RECTAL Constipation Third Line Agent 03/08/17 18:15 04/07/17 23:59 Carvedilol (Coreg) 25 mg Q12HR ORAL 03/05/17 21:00 04/04/17 20:59 03/10/17 09:32 Dextrose (Dextrose 50%) STAT PRN IV Hypoglycemia 02/25/17 15:15 03/17/17 15:14 Escitalopram Oxalate (Lexapro) 10 mg DAILY ORAL 02/26/17 09:00 03/20/17 08:59 03/10/17 09:32 Haloperidol Lactate (Haldol) 2 mg Q4H PRN IM Agitation 02/25/17 15:15 03/27/17 15:14 03/08/17 15:58 Hydralazine HCl (Apresoline) 10 mg Q6HR NG 03/05/17 12:00 04/04/17 11:59 03/10/17 05:51 Hydralazine HCl (Apresoline) 25 mg Q4H PRN ORAL SBP > 160mmHg 02/25/17 15:15 03/27/17 15:14 03/04/17 08:30 Lidocaine (Xylocaine 1% MPF 5ml) 10 ml Q4H PRN HHN cough 02/25/17 15:15 03/19/17 15:14 Metoclopramide HCl (Reglan) 5 mg Q8HR IVP 03/04/17 22:00 04/03/17 21:59 03/10/17 13:22 Morphine Sulfate (Morphine Sulfate) 2 mg Q4H PRN IVP Pain 4-10 03/08/17 09:15 03/15/17 09:14 03/10/17 18:24 Ondansetron HCl (Zofran) 4 mg Q6H PRN IVP Nausea & Vomiting 02/25/17 15:15 03/17/17 15:14 03/10/17 13:22 Pantoprazole (Protonix) 40 mg DAILY IV 02/27/17 09:00 03/29/17 08:59 03/10/17 09:33 Polyethylene Glycol (Miralax) 17 gm DAILYPRN PRN ORAL Constipation First line agent 02/25/17 15:15 03/17/17 15:14 Pravastatin Sodium (Pravachol) 20 mg BEDTIME ORAL 02/25/17 21:00 03/18/17 20:59 03/09/17 20:45 Pregabalin (Lyrica) 150 mg THREE TIMES A DAY ORAL 02/25/17 18:00 03/18/17 12:59 03/10/17 17:31 Promethazine HCl/ Codeine (Phenergan with Codeine) 5 ml Q4H PRN ORAL UNRELIEVED COUGH 02/25/17 15:15 03/18/17 15:14 Ranitidine HCl (Zantac) 150 mg QPM ORAL 02/25/17 16:30 03/27/17 16:29 03/10/17 16:03 Allergies: Coded Allergies: TETRACYCLINE (Unverified Allergy, Unknown, 07/24/14) ROS Limited/Unobtainable: No Constitutional: Reports: no symptoms HEENT: Reports: no symptoms Cardiovascular: Reports: no symptoms Respiratory: Reports: cough, shortness of breath Gastrointestinal/Abdominal: Reports: no symptoms Genitourinary: Reports: no symptoms Neurologic/Psychiatric: Reports: no symptoms Subjective 76 YO F admitted with shortness of breath. Now pneumonia. Cover for Int Daniel- Dr Cedillo. CAYETANO. Failed swallow eval. Tolerating nasal canula Objective Last Vital Signs Date Time Temp Pulse Resp B/P (MAP) Pulse Ox O2 Delivery O2 Flow Rate FiO2 03/10/17 17:31 96/40 03/10/17 16:00 76 03/10/17 16:00 98.5 18 95 Nasal Cannula 3.0 03/10/17 07:43 32 Laboratory Tests Test 03/10/17 03:50 White Blood Count 11.3 K/UL (4.8-10.8) H Red Blood Count 2.83 M/UL (4.20-5.40) L Hemoglobin 9.2 G/DL (12.0-16.0) L Hematocrit 28.7 % (37.0-47.0) L Mean Corpuscular Volume 101 FL (80-99) H Mean Corpuscular Hemoglobin 32.6 PG (27.0-31.0) H Mean Corpuscular Hemoglobin Concent 32.2 G/DL (32.0-36.0) Red Cell Distribution Width 12.7 % (11.6-14.8) Platelet Count 247 K/UL (150-450) Mean Platelet Volume 8.6 FL (6.5-10.1) Neutrophils (%) (Auto) 74.4 % (45.0-75.0) Lymphocytes (%) (Auto) 18.2 % (20.0-45.0) L Monocytes (%) (Auto) 6.4 % (1.0-10.0) Eosinophils (%) (Auto) 0.8 % (0.0-3.0) Basophils (%) (Auto) 0.2 % (0.0-2.0) Sodium Level 140 MMOL/L (136-145) Potassium Level 3.9 MMOL/L (3.5-5.1) Chloride Level 101 MMOL/L (98-107) Carbon Dioxide Level 32 MMOL/L (21-32) Anion Gap 7 mmol/L (5-15) Blood Urea Nitrogen 38 mg/dL (7-18) H Creatinine 0.7 MG/DL (0.55-1.30) Estimat Glomerular Filtration Rate mL/min (>60) Glucose Level 106 MG/DL (74-106) Calcium Level 9.5 MG/DL (8.5-10.1) Intake and Output 03/10/17 03/11/17 19:00 07:00 Intake Total 270 ml Output Total 280 ml Balance -10 ml Intake Oral 180 ml Tube Feeding 90 ml Output Urine Total 280 ml # Bowel Movements 4 Objective General Appearance: WD/WN, no apparent distress, alert EENT: PERRL/EOMI, normal ENT inspection, TMs normal Neck: non-tender, normal alignment, supple, normal inspection Cardiovascular: normal peripheral pulses, normal rate, regular rhythm, no gallop/murmur, no JVD Respiratory/Chest: nasal canula; chest wall non-tender, respiratory distress, decreased breath sounds, crackles/rales, rhonchi - bilaterally, expiratory wheezing Abdomen: normal bowel sounds, non tender, soft, no organomegaly, no mass Extremities: normal range of motion 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 (8) Pneumonia Assessment & Plan: Continue Meropenem and vanco. See ID and pulmonary notes. (9) COPD exacerbation Assessment & Plan: Continue IV solumedrol and xopenex/atrovent nebs. See pulmonary note. (10) Diastolic CHF Assessment & Plan: See cardiology note. 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 S/P intubation to aerate left lung-see pulmonary note. D/W pulmonary Dr Hernandez. Extubated 03/07 (14) Respiratory failure requiring intubation Assessment & Plan: Extubated 03/07/17; tolerating nasal canula (15) Dysphagia Assessment & Plan: See speech therapy note. Status: not improved ZEB FUENTES Mar 10, 2017 18:51
[2017-03-10 20:00] VITALS: BP 88/40
[2017-03-11] VITALS: BP 103/48
[2017-03-11 04:00] VITALS: BP 108/40
[2017-03-11 04:42] LABS: BASOPHILS % (AUTO) 0.2 % (0.0-2.0); EOSINOPHILS % (AUTO) 1.4 % (0.0-3.0); HEMATOCRIT 28.6 % (37.0-47.0); HEMOGLOBIN 9.6 G/DL (12.0-16.0); LYMPHOCYTES % (AUTO) 14.3 % (20.0-45.0); MEAN CORPUSCULAR VOLUME 102 FL (80-99); MONOCYTES % (AUTO) 4.3 % (1.0-10.0); NEUTROPHILS % (AUTO) 79.8 % (45.0-75.0); PLATELET COUNT 220 K/UL (150-450); RED BLOOD COUNT 2.81 M/UL (4.20-5.40); RED CELL DISTRIBUTION WIDTH 12.6 % (11.6-14.8); WHITE BLOOD COUNT 11.5 K/UL (4.8-10.8)
[2017-03-11] MEDS: Morphine Sulfate 4mg/ml Inj IVP PRN (05:01)
[2017-03-11 05:22] LABS: ALANINE AMINOTRANSFERASE 21 U/L (12-78); ALBUMIN 2.5 G/DL (3.4-5.0); ALBUMIN/GLOBULIN RATIO 0.7 (1.0-2.7); ALKALINE PHOSPHATASE 56 U/L (46-116); ANION GAP 7 mmol/L (5-15); ASPARTATE AMINO TRANSFERASE 16 U/L (15-37); BILIRUBIN,TOTAL 0.5 MG/DL (0.2-1.0); BLOOD UREA NITROGEN 36 mg/dL (7-18); CARBON DIOXIDE 33 MMOL/L (21-32); CHLORIDE 104 MMOL/L (98-107); CREATININE 0.7 MG/DL (0.55-1.30); SODIUM 144 MMOL/L (136-145)
[2017-03-11] MEDS: HydrALAZINE 10mg Tab NG SCH ×4 (05:46→18:34)
[2017-03-11] MEDS: Metoclopramide 10mg/2ml Inj IVP SCH ×3 (05:46→21:52)
[2017-03-11 07:47] VITALS: BP 152/68
[2017-03-11] MEDS: Pantoprazole Inj IV SCH (09:42)
[2017-03-11] MEDS: Allopurinol 100mg Tab ORAL SCH (09:42)
[2017-03-11] MEDS: Aspirin EC 81mg tab ORAL SCH (09:42)
[2017-03-11] MEDS: Lyrica 75mg cap ORAL SCH ×3 (09:42→17:04)
[2017-03-11] MEDS: Carvedilol 25mg Tab ORAL SCH ×2 (09:42→21:00)
--- NOTE | 2017-03-11 10:21 | Diagnostic Imaging Report ---
Indication: DYSPNEA Technique: One view of the chest Comparison: 03/09/2017 Findings: Interim removal of nasogastric tube. Probable left pleural effusion is unchanged. There is suggestion of increased left lung volume loss and leftward mediastinal shift. There is suggestion of abrupt cut off of the distal left mainstem bronchus There is suggestion of slightly improved interstitial congestion on the right. Impression: Suggestion of increasing left lung volume loss, over 2 days. Possible endoluminal occlusion of the distal left mainstem bronchus. Slightly decreased interstitial congestion on the right Persistent left pleural effusion Interim nasogastric tube removal
--- NOTE | 2017-03-11 10:29 | Wound Nurse Progress Note ---
Wound RN Progress Note Wound Consult reassessment #1 Sacrococcygeal stage I pressure ulcer that extended to left and right buttocks- no further deterioration , skin remains intact, noted slight redness still present. #2 Perineal area chemical burn- resolving, skin intact #3 Wart on supra pubic area - no change upon reassessment noted good progress. continue current treatment plan as previously recommended Recommendation -Sacrococcygeal stage I pressure ulcer that extended to left and right buttocks and Perineal area chemical burn Cleanse with saline, pat dry, apply Triad cream, leave area open to air BID and PRN soiled/dislodged -Keep clean and dry -Turn and reposition -Offload both heels -Heel protector on both heels -Low air loss SPR mattress -Optimize nutrition -Assess and f/u accordingly for any changes upon skin reassessment skin remains intact, current treatment is effective. OLIVERIO COATES Mar 11, 2017 10:29
--- NOTE | 2017-03-11 11:10 | Internal Med Progress Note ---
Subjective Date of Service: Mar 11, 2017 Physician Name Zeb Fuentes Attending Physician Jun Cedillo MD Current Medications Medications (Trade) Dose Ordered Sig/Wilner Route PRN Reason Start Time Stop Time Status Last Admin Dose Admin Acetaminophen (Tylenol) 650 mg Q4H PRN ORAL Fever/Headache/Mild Pain 03/08/17 20:00 04/07/17 23:59 Allopurinol (Zyloprim) 100 mg DAILY ORAL 03/09/17 09:00 04/07/17 23:59 03/11/17 09:42 Amlodipine Besylate (Norvasc) 10 mg DAILY ORAL 03/04/17 12:00 04/03/17 11:59 03/11/17 09:43 Aspirin (Ecotrin) 81 mg DAILY ORAL 03/09/17 09:00 03/29/17 23:59 03/11/17 09:42 Bisacodyl (Dulcolax) 10 mg DAILYPRN PRN RECTAL Constipation Third Line Agent 03/08/17 18:15 04/07/17 23:59 Carvedilol (Coreg) 25 mg Q12HR ORAL 03/05/17 21:00 04/04/17 20:59 03/11/17 09:42 Dextrose (Dextrose 50%) STAT PRN IV Hypoglycemia 02/25/17 15:15 03/17/17 15:14 Escitalopram Oxalate (Lexapro) 10 mg DAILY ORAL 02/26/17 09:00 03/20/17 08:59 03/11/17 09:43 Haloperidol Lactate (Haldol) 2 mg Q4H PRN IM Agitation 02/25/17 15:15 03/27/17 15:14 03/08/17 15:58 Hydralazine HCl (Apresoline) 10 mg Q6HR NG 03/05/17 12:00 04/04/17 11:59 03/11/17 05:46 Hydralazine HCl (Apresoline) 25 mg Q4H PRN ORAL SBP > 160mmHg 02/25/17 15:15 03/27/17 15:14 03/04/17 08:30 Lidocaine (Xylocaine 1% MPF 5ml) 10 ml Q4H PRN HHN cough 02/25/17 15:15 03/19/17 15:14 Metoclopramide HCl (Reglan) 5 mg Q8HR IVP 03/04/17 22:00 04/03/17 21:59 03/11/17 05:46 Morphine Sulfate (Morphine Sulfate) 2 mg Q4H PRN IVP Pain 4-10 03/08/17 09:15 03/15/17 09:14 03/11/17 05:01 Ondansetron HCl (Zofran) 4 mg Q6H PRN IVP Nausea & Vomiting 02/25/17 15:15 03/17/17 15:14 03/11/17 04:19 Pantoprazole (Protonix) 40 mg DAILY IV 02/27/17 09:00 03/29/17 08:59 03/11/17 09:42 Polyethylene Glycol (Miralax) 17 gm DAILYPRN PRN ORAL Constipation First line agent 02/25/17 15:15 03/17/17 15:14 Potassium Chloride 100 ml @ 100 mls/hr Q1H IVPB 03/11/17 10:30 03/11/17 14:29 03/11/17 11:01 Pravastatin Sodium (Pravachol) 20 mg BEDTIME ORAL 02/25/17 21:00 03/18/17 20:59 03/10/17 20:45 Pregabalin (Lyrica) 150 mg THREE TIMES A DAY ORAL 02/25/17 18:00 03/18/17 12:59 03/11/17 09:42 Promethazine HCl/ Codeine (Phenergan with Codeine) 5 ml Q4H PRN ORAL UNRELIEVED COUGH 02/25/17 15:15 03/18/17 15:14 Ranitidine HCl (Zantac) 150 mg QPM ORAL 02/25/17 16:30 03/27/17 16:29 03/10/17 16:03 Allergies: Coded Allergies: TETRACYCLINE (Unverified Allergy, Unknown, 07/24/14) ROS Limited/Unobtainable: No Constitutional: Reports: no symptoms HEENT: Reports: no symptoms Cardiovascular: Reports: no symptoms Respiratory: Reports: no symptoms Gastrointestinal/Abdominal: Reports: no symptoms Genitourinary: Reports: no symptoms Neurologic/Psychiatric: Reports: no symptoms Subjective 76 YO F admitted with shortness of breath. Now pneumonia. Cover for Int Med- Dr Cedillo. CAYETANO. Failed swallow eval. Tolerating nasal canula Objective Last Vital Signs Date Time Temp Pulse Resp B/P (MAP) Pulse Ox O2 Delivery O2 Flow Rate FiO2 03/11/17 10:41 98.0 03/11/17 09:43 82 152/68 03/11/17 08:57 Venturi Mask 14.0 50 03/11/17 08:57 94 03/11/17 07:47 22 Laboratory Tests Test 03/11/17 03:05 White Blood Count 11.5 K/UL (4.8-10.8) H Red Blood Count 2.81 M/UL (4.20-5.40) L Hemoglobin 9.6 G/DL (12.0-16.0) L Hematocrit 28.6 % (37.0-47.0) L Mean Corpuscular Volume 102 FL (80-99) H Mean Corpuscular Hemoglobin 34.3 PG (27.0-31.0) H Mean Corpuscular Hemoglobin Concent 33.7 G/DL (32.0-36.0) Red Cell Distribution Width 12.6 % (11.6-14.8) Platelet Count 220 K/UL (150-450) Mean Platelet Volume 7.7 FL (6.5-10.1) Neutrophils (%) (Auto) 79.8 % (45.0-75.0) H Lymphocytes (%) (Auto) 14.3 % (20.0-45.0) L Monocytes (%) (Auto) 4.3 % (1.0-10.0) Eosinophils (%) (Auto) 1.4 % (0.0-3.0) Basophils (%) (Auto) 0.2 % (0.0-2.0) Sodium Level 144 MMOL/L (136-145) Potassium Level 3.0 MMOL/L (3.5-5.1) L Chloride Level 104 MMOL/L (98-107) Carbon Dioxide Level 33 MMOL/L (21-32) H Anion Gap 7 mmol/L (5-15) Blood Urea Nitrogen 36 mg/dL (7-18) H Creatinine 0.7 MG/DL (0.55-1.30) Estimat Glomerular Filtration Rate mL/min (>60) Glucose Level 89 MG/DL (74-106) Calcium Level 9.0 MG/DL (8.5-10.1) Total Bilirubin 0.5 MG/DL (0.2-1.0) Aspartate Amino Transf (AST/SGOT) 16 U/L (15-37) Alanine Aminotransferase (ALT/SGPT) 21 U/L (12-78) Alkaline Phosphatase 56 U/L (46-116) Pro-B-Type Natriuretic Peptide 311 pg/mL (0-125) H Total Protein 6.0 G/DL (6.4-8.2) L Albumin 2.5 G/DL (3.4-5.0) L Globulin 3.5 g/dL Albumin/Globulin Ratio 0.7 (1.0-2.7) L Objective General Appearance: WD/WN, no apparent distress, alert EENT: PERRL/EOMI, normal ENT inspection, TMs normal Neck: non-tender, normal alignment, supple, normal inspection Cardiovascular: normal peripheral pulses, normal rate, regular rhythm, no gallop/murmur, no JVD Respiratory/Chest: nasal canula; chest wall non-tender, respiratory distress, decreased breath sounds, crackles/rales, rhonchi - bilaterally, expiratory wheezing Abdomen: normal bowel sounds, non tender, soft, no organomegaly, no mass Extremities: normal range of motion 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 (8) Pneumonia Assessment & Plan: Continue Meropenem and vanco. See ID and pulmonary notes. (9) COPD exacerbation Assessment & Plan: Continue IV solumedrol and xopenex/atrovent nebs. See pulmonary note. (10) Diastolic CHF Assessment & Plan: See cardiology note. 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 S/P intubation to aerate left lung-see pulmonary note. D/W pulmonary Dr Hernandez. Extubated 10/28 /17 (14) Respiratory failure requiring intubation Assessment & Plan: Extubated 03/07/17; tolerating nasal canula (15) Dysphagia Assessment & Plan: Failed swallow eval. See speech therapy note. Status: unchanged ZEB FUENTES Mar 11, 2017 11:10
[2017-03-11 12:00] VITALS: BP 90/41
--- NOTE | 2017-03-11 12:09 | Infectious Diseases Prog Note ---
Assessment/Plan Assessment/Plan Assessment/Plan Abx: IV Vanco 02/15-03/01 Cefepime 02/15-02/18 Meropenem 02/18-03/03 Assesment: Low grade, SP Ucx >100k yeast (colonizer) No evid of pneumonia at this time - SP bronch 02/26 (collected 02/26, however received on the lab 03/03??): BAL cx NTD -CXR 03/03: Stable bilateral interstitial and alveolar opacities, probable small left pleural effusion, elevation left hemidiaphragm - CT Chest 02/24: Near-complete occlusion of the left mainstem bronchus and proximal lobar bronchi, probably by debris. Extensive resultant atelectasis and consolidation of nearly the entire left lung. Less extensive consolidation within the right lung, nonspecific as regards etiology, likely secondary to pneumonia or edema Crypt Ag serum neg; -sp cx 03/06 <1+ Proteus Mirabilis (S Ancef/CTX, bactrim; R Cipro/levo); s/p recent PNA tx CXR 03/05: There is suggestion of slightly increased pleural fluid on the left. Hazy opacity in the right lung is stable Leukocytosis, mild - recurrent, (s/p steroids 03/07) Acute hypoxic resp failure, SP Intubated 02/26; extubated 03/07 -venous duplex 02/16 no DVT L pleural effusion - improved COPD on home O2 Hx of Cdiff DM2 Chronic abd pain hx of MRSA bacteremia 07/2015 TCA allergy Full Code fibromyalgia, HTN, HLD, R breast cancer,Tobacco abuse (stopped 4 years ago), Anxiety, AOCD Plan: -Continue to monitor off abx; if febrile, increased leukocytosis, oxygen requirements or worsenign CXR- start IV Ceftriaxone for Proteus on sputum -s/p 14d IV Meropenem 03/03 -s/p 14 d IV Vancomycin 03/01 -s/p 6d prophylactic PO vanco 02/21 -s/p 4 d Cefepime 02/18 -f/u Cocci ab -Monitor CBC/BMP, temperatures -Aspiration precautions - vent support, wean as tolerated Subjective Constitutional: Denies: no symptoms, fever, chills, fatigue, anorexia, drenching sweats, other Allergies: Coded Allergies: TETRACYCLINE (Unverified Allergy, Unknown, 3/16/15) Objective Vital Signs Last 24 Hour Vital Signs Date Time Temp Pulse Resp B/P (MAP) Pulse Ox O2 Delivery O2 Flow Rate FiO2 03/11/17 10:41 98.0 03/11/17 09:43 82 152/68 03/11/17 09:42 82 152/68 03/11/17 08:57 Venturi Mask 14.0 50 03/11/17 08:57 94 Venturi Mask 14.0 50 03/11/17 08:00 81 03/11/17 07:47 98.0 82 22 152/68 92 Venturi Mask 55 03/11/17 05:46 129/59 03/11/17 04:00 87 03/11/17 04:00 97.9 79 19 108/40 94 Venturi Mask 55 03/11/17 00:00 98.1 75 18 103/48 91 Nasal Cannula 3.0 03/11/17 00:00 73 03/11/17 00:00 98/40 03/10/17 20:44 68 88/40 03/10/17 20:01 94 Nasal Cannula 3.0 32 03/10/17 20:01 Nasal Cannula 3.0 32 03/10/17 20:00 72 03/10/17 20:00 97.9 73 18 88/40 92 Nasal Cannula 3.0 03/10/17 17:31 96/40 03/10/17 16:00 76 03/10/17 16:00 98.5 76 18 96/40 95 Nasal Cannula 3.0 Height (Feet): 5 Height (Inches): 7.00 Weight (Pounds): 109 HEENT: anicteric Respiratory/Chest: no respiratory distress Cardiovascular: regularly irregular Abdomen: non distended Laboratory Tests Test 03/11/17 03:05 White Blood Count 11.5 K/UL (4.8-10.8) H Red Blood Count 2.81 M/UL (4.20-5.40) L Hemoglobin 9.6 G/DL (12.0-16.0) L Hematocrit 28.6 % (37.0-47.0) L Mean Corpuscular Volume 102 FL (80-99) H Mean Corpuscular Hemoglobin 34.3 PG (27.0-31.0) H Mean Corpuscular Hemoglobin Concent 33.7 G/DL (32.0-36.0) Red Cell Distribution Width 12.6 % (11.6-14.8) Platelet Count 220 K/UL (150-450) Mean Platelet Volume 7.7 FL (6.5-10.1) Neutrophils (%) (Auto) 79.8 % (45.0-75.0) H Lymphocytes (%) (Auto) 14.3 % (20.0-45.0) L Monocytes (%) (Auto) 4.3 % (1.0-10.0) Eosinophils (%) (Auto) 1.4 % (0.0-3.0) Basophils (%) (Auto) 0.2 % (0.0-2.0) Sodium Level 144 MMOL/L (136-145) Potassium Level 3.0 MMOL/L (3.5-5.1) L Chloride Level 104 MMOL/L (98-107) Carbon Dioxide Level 33 MMOL/L (21-32) H Anion Gap 7 mmol/L (5-15) Blood Urea Nitrogen 36 mg/dL (7-18) H Creatinine 0.7 MG/DL (0.55-1.30) Estimat Glomerular Filtration Rate mL/min (>60) Glucose Level 89 MG/DL (74-106) Calcium Level 9.0 MG/DL (8.5-10.1) Total Bilirubin 0.5 MG/DL (0.2-1.0) Aspartate Amino Transf (AST/SGOT) 16 U/L (15-37) Alanine Aminotransferase (ALT/SGPT) 21 U/L (12-78) Alkaline Phosphatase 56 U/L (46-116) Pro-B-Type Natriuretic Peptide 311 pg/mL (0-125) H Total Protein 6.0 G/DL (6.4-8.2) L Albumin 2.5 G/DL (3.4-5.0) L Globulin 3.5 g/dL Albumin/Globulin Ratio 0.7 (1.0-2.7) L Current Medications Medications (Trade) Dose Ordered Sig/Wilner Route PRN Reason Start Time Stop Time Status Last Admin Dose Admin Acetaminophen (Tylenol) 650 mg Q4H PRN ORAL Fever/Headache/Mild Pain 03/08/17 20:00 04/07/17 23:59 Allopurinol (Zyloprim) 100 mg DAILY ORAL 03/09/17 09:00 04/07/17 23:59 03/11/17 09:42 Amlodipine Besylate (Norvasc) 10 mg DAILY ORAL 03/04/17 12:00 04/03/17 11:59 03/11/17 09:43 Aspirin (Ecotrin) 81 mg DAILY ORAL 03/09/17 09:00 03/29/17 23:59 03/11/17 09:42 Bisacodyl (Dulcolax) 10 mg DAILYPRN PRN RECTAL Constipation Third Line Agent 03/08/17 18:15 04/07/17 23:59 Carvedilol (Coreg) 25 mg Q12HR ORAL 03/05/17 21:00 04/04/17 20:59 03/11/17 09:42 Dextrose (Dextrose 50%) STAT PRN IV Hypoglycemia 02/25/17 15:15 03/17/17 15:14 Escitalopram Oxalate (Lexapro) 10 mg DAILY ORAL 02/26/17 09:00 03/20/17 08:59 03/11/17 09:43 Haloperidol Lactate (Haldol) 2 mg Q4H PRN IM Agitation 02/25/17 15:15 03/27/17 15:14 03/08/17 15:58 Hydralazine HCl (Apresoline) 10 mg Q6HR NG 03/05/17 12:00 04/04/17 11:59 03/11/17 05:46 Hydralazine HCl (Apresoline) 25 mg Q4H PRN ORAL SBP > 160mmHg 02/25/17 15:15 03/27/17 15:14 03/04/17 08:30 Lidocaine (Xylocaine 1% MPF 5ml) 10 ml Q4H PRN HHN cough 02/25/17 15:15 03/19/17 15:14 Metoclopramide HCl (Reglan) 5 mg Q8HR IVP 03/04/17 22:00 04/03/17 21:59 03/11/17 05:46 Morphine Sulfate (Morphine Sulfate) 2 mg Q4H PRN IVP Pain 4-10 03/08/17 09:15 03/15/17 09:14 03/11/17 05:01 Ondansetron HCl (Zofran) 4 mg Q6H PRN IVP Nausea & Vomiting 02/25/17 15:15 03/17/17 15:14 03/11/17 04:19 Pantoprazole (Protonix) 40 mg DAILY IV 02/27/17 09:00 03/29/17 08:59 03/11/17 09:42 Polyethylene Glycol (Miralax) 17 gm DAILYPRN PRN ORAL Constipation First line agent 02/25/17 15:15 03/17/17 15:14 Potassium Chloride 100 ml @ 100 mls/hr Q1H IVPB 03/11/17 10:30 03/11/17 14:29 03/11/17 11:01 Pravastatin Sodium (Pravachol) 20 mg BEDTIME ORAL 02/25/17 21:00 03/18/17 20:59 03/10/17 20:45 Pregabalin (Lyrica) 150 mg THREE TIMES A DAY ORAL 02/25/17 18:00 03/18/17 12:59 03/11/17 09:42 Promethazine HCl/ Codeine (Phenergan with Codeine) 5 ml Q4H PRN ORAL UNRELIEVED COUGH 02/25/17 15:15 03/18/17 15:14 Ranitidine HCl (Zantac) 150 mg QPM ORAL 02/25/17 16:30 03/27/17 16:29 03/10/17 16:03 ORLANDO RODRIGUEZ M.D. Mar 11, 2017 12:09
--- NOTE | 2017-03-11 12:48 | General Progress Note ---
Assessment/Plan Status: stable - from renal stand Status Narrative worsenned pulmonary status Assessment/Plan Status: Acute renal failure- etiology? 1900 cc urine out after insertion of shi--JOSE MIGUEL: Moderate right hydronephrosis. Acute on Chronic respiratory failure- extubated now HTN High Cholestrol Pneumonia COPD , exac. Diastolic CHF, Mod MR h/o C dif colitis h/o Breast Ca Anemia Pulm HTN Moderate Plan: now extubated- post extubation care adjust BP meds K and Phos supplement as needed pulm support Allopurinol continue Shi- Avoid nephrotoxics JOSE MIGUEL: Moderate right hydronephrosis. Subjective ROS Limited/Unobtainable: No Constitutional: Reports: malaise, weakness Allergies: Coded Allergies: TETRACYCLINE (Unverified Allergy, Unknown, 07/24/14) Objective Last 24 Hour Vital Signs Date Time Temp Pulse Resp B/P (MAP) Pulse Ox O2 Delivery O2 Flow Rate FiO2 03/11/17 12:00 90/41 03/11/17 12:00 97.6 79 21 90/41 96 Venturi Mask 55 03/11/17 10:41 98.0 03/11/17 09:43 82 152/68 03/11/17 09:42 82 152/68 03/11/17 08:57 Venturi Mask 14.0 50 03/11/17 08:57 94 Venturi Mask 14.0 50 03/11/17 08:00 81 03/11/17 07:47 98.0 82 22 152/68 92 Venturi Mask 55 03/11/17 05:46 129/59 03/11/17 04:00 87 03/11/17 04:00 97.9 79 19 108/40 94 Venturi Mask 55 03/11/17 00:00 98.1 75 18 103/48 91 Nasal Cannula 3.0 03/11/17 00:00 73 03/11/17 00:00 98/40 03/10/17 20:44 68 88/40 03/10/17 20:01 94 Nasal Cannula 3.0 32 03/10/17 20:01 Nasal Cannula 3.0 32 03/10/17 20:00 72 03/10/17 20:00 97.9 73 18 88/40 92 Nasal Cannula 3.0 03/10/17 17:31 96/40 03/10/17 16:00 76 03/10/17 16:00 98.5 76 18 96/40 95 Nasal Cannula 3.0 Laboratory Tests 03/11/17 03:05: White Blood Count 11.5H, Red Blood Count 2.81L, Hemoglobin 9.6L, Hematocrit 28.6L, Mean Corpuscular Volume 102H, Mean Corpuscular Hemoglobin 34.3H, Mean Corpuscular Hemoglobin Concent 33.7, Red Cell Distribution Width 12.6, Platelet Count 220, Mean Platelet Volume 7.7, Neutrophils (%) (Auto) 79.8H, Lymphocytes ( %) (Auto) 14.3L, Monocytes (%) (Auto) 4.3, Eosinophils (%) (Auto) 1.4, Basophils (%) (Auto) 0.2, Sodium Level 144, Potassium Level 3.0L, Chloride Level 104, Carbon Dioxide Level 33H, Anion Gap 7, Blood Urea Nitrogen 36H, Creatinine 0.7, Estimat Glomerular Filtration Rate , Glucose Level 89, Calcium Level 9.0, Total Bilirubin 0.5, Aspartate Amino Transf (AST/SGOT) 16, Alanine Aminotransferase (ALT/SGPT) 21, Alkaline Phosphatase 56, Pro-B-Type Natriuretic Peptide 311H, Total Protein 6.0L, Albumin 2.5L, Globulin 3.5, Albumin/Globulin Ratio 0.7L Height (Feet): 5 Height (Inches): 7.00 Weight (Pounds): 109 EENT: other - on venti mask Cardiovascular: regular rhythm Respiratory/Chest: decreased breath sounds Abdomen: soft Objective no edema- no change in PE GENARO DUARTE Mar 11, 2017 12:48
--- NOTE | 2017-03-11 13:31 | Pulmonology Progress Note ---
Assessment/Plan Problems: (1) Acute and chronic respiratory failure ([id number]) (2) COPD exacerbation (3) Pneumonia (4) Fibromyalgia (5) History of breast cancer (6) Limited mobility Assessment/Plan cxr worsening slightly more aggressive Chest PT advance diet as tolerated on Nasal cannula pt/ot Subjective Interval Events: needs more fio2 Allergies: Coded Allergies: TETRACYCLINE (Unverified Allergy, Unknown, 07/24/14) Objective Last 24 Hour Vital Signs Date Time Temp Pulse Resp B/P (MAP) Pulse Ox O2 Delivery O2 Flow Rate FiO2 03/11/17 12:00 82 03/11/17 12:00 90/41 03/11/17 12:00 97.6 79 21 90/41 96 Venturi Mask 55 03/11/17 10:41 98.0 03/11/17 09:43 82 152/68 03/11/17 09:42 82 152/68 03/11/17 08:57 Venturi Mask 14.0 50 03/11/17 08:57 94 Venturi Mask 14.0 50 03/11/17 08:00 81 03/11/17 07:47 98.0 82 22 152/68 92 Venturi Mask 55 03/11/17 05:46 129/59 03/11/17 04:00 87 03/11/17 04:00 97.9 79 19 108/40 94 Venturi Mask 55 03/11/17 00:00 98.1 75 18 103/48 91 Nasal Cannula 3.0 03/11/17 00:00 73 03/11/17 00:00 98/40 03/10/17 20:44 68 88/40 03/10/17 20:01 94 Nasal Cannula 3.0 32 03/10/17 20:01 Nasal Cannula 3.0 32 03/10/17 20:00 72 03/10/17 20:00 97.9 73 18 88/40 92 Nasal Cannula 3.0 03/10/17 17:31 96/40 03/10/17 16:00 76 03/10/17 16:00 98.5 76 18 96/40 95 Nasal Cannula 3.0 General Appearance: WD/WN HEENT: normocephalic, atraumatic Breasts: no masses Cardiovascular: normal peripheral pulses, regular rhythm Abdomen: soft, non tender, no organomegaly, no scars Genitourinary: normal external genitalia Skin: no rash Laboratory Tests 03/11/17 03:05: White Blood Count 11.5H, Red Blood Count 2.81L, Hemoglobin 9.6L, Hematocrit 28.6L, Mean Corpuscular Volume 102H, Mean Corpuscular Hemoglobin 34.3H, Mean Corpuscular Hemoglobin Concent 33.7, Red Cell Distribution Width 12.6, Platelet Count 220, Mean Platelet Volume 7.7, Neutrophils (%) (Auto) 79.8H, Lymphocytes ( %) (Auto) 14.3L, Monocytes (%) (Auto) 4.3, Eosinophils (%) (Auto) 1.4, Basophils (%) (Auto) 0.2, Sodium Level 144, Potassium Level 3.0L, Chloride Level 104, Carbon Dioxide Level 33H, Anion Gap 7, Blood Urea Nitrogen 36H, Creatinine 0.7, Estimat Glomerular Filtration Rate , Glucose Level 89, Calcium Level 9.0, Total Bilirubin 0.5, Aspartate Amino Transf (AST/SGOT) 16, Alanine Aminotransferase (ALT/SGPT) 21, Alkaline Phosphatase 56, Pro-B-Type Natriuretic Peptide 311H, Total Protein 6.0L, Albumin 2.5L, Globulin 3.5, Albumin/Globulin Ratio 0.7L Current Medications Medications (Trade) Dose Ordered Sig/Wilner Route PRN Reason Start Time Stop Time Status Last Admin Dose Admin Acetaminophen (Tylenol) 650 mg Q4H PRN ORAL Fever/Headache/Mild Pain 03/08/17 20:00 04/07/17 23:59 Allopurinol (Zyloprim) 100 mg DAILY ORAL 03/09/17 09:00 04/07/17 23:59 03/11/17 09:42 Amlodipine Besylate (Norvasc) 10 mg DAILY ORAL 03/04/17 12:00 04/03/17 11:59 03/11/17 09:43 Aspirin (Ecotrin) 81 mg DAILY ORAL 03/09/17 09:00 03/29/17 23:59 03/11/17 09:42 Bisacodyl (Dulcolax) 10 mg DAILYPRN PRN RECTAL Constipation Third Line Agent 03/08/17 18:15 04/07/17 23:59 Carvedilol (Coreg) 25 mg Q12HR ORAL 03/05/17 21:00 04/04/17 20:59 03/11/17 09:42 Dextrose (Dextrose 50%) STAT PRN IV Hypoglycemia 02/25/17 15:15 03/17/17 15:14 Escitalopram Oxalate (Lexapro) 10 mg DAILY ORAL 02/26/17 09:00 03/20/17 08:59 03/11/17 09:43 Haloperidol Lactate (Haldol) 2 mg Q4H PRN IM Agitation 02/25/17 15:15 03/27/17 15:14 03/08/17 15:58 Hydralazine HCl (Apresoline) 10 mg Q6HR NG 03/05/17 12:00 04/04/17 11:59 03/11/17 05:46 Hydralazine HCl (Apresoline) 25 mg Q4H PRN ORAL SBP > 160mmHg 02/25/17 15:15 03/27/17 15:14 03/04/17 08:30 Lidocaine (Xylocaine 1% MPF 5ml) 10 ml Q4H PRN HHN cough 02/25/17 15:15 03/19/17 15:14 Metoclopramide HCl (Reglan) 5 mg Q8HR IVP 03/04/17 22:00 04/03/17 21:59 03/11/17 05:46 Morphine Sulfate (Morphine Sulfate) 2 mg Q4H PRN IVP Pain 4-10 03/08/17 09:15 03/15/17 09:14 03/11/17 05:01 Ondansetron HCl (Zofran) 4 mg Q6H PRN IVP Nausea & Vomiting 02/25/17 15:15 03/17/17 15:14 03/11/17 04:19 Pantoprazole (Protonix) 40 mg DAILY IV 02/27/17 09:00 03/29/17 08:59 03/11/17 09:42 Polyethylene Glycol (Miralax) 17 gm DAILYPRN PRN ORAL Constipation First line agent 02/25/17 15:15 03/17/17 15:14 Potassium Chloride 100 ml @ 100 mls/hr Q1H IVPB 03/11/17 10:30 03/11/17 14:29 03/11/17 12:16 Pravastatin Sodium (Pravachol) 20 mg BEDTIME ORAL 02/25/17 21:00 03/18/17 20:59 03/10/17 20:45 Pregabalin (Lyrica) 150 mg THREE TIMES A DAY ORAL 02/25/17 18:00 03/18/17 12:59 03/11/17 09:42 Promethazine HCl/ Codeine (Phenergan with Codeine) 5 ml Q4H PRN ORAL UNRELIEVED COUGH 02/25/17 15:15 03/18/17 15:14 Ranitidine HCl (Zantac) 150 mg QPM ORAL 02/25/17 16:30 03/27/17 16:29 03/10/17 16:03 TWIN FONTANEZ Mar 11, 2017 13:31
--- NOTE | 2017-03-11 15:27 | Diagnostic Imaging Report ---
Indications: DYSPHAGIA Technique: Patient ingested multiple substances under the supervision of speech pathology. Video fluoroscopic recording performed. Total fluoroscopy time 284 seconds. Total dose area product 0.67357 mGycm2 Comparison: none Findings: There is a nasogastric tube in place. Multiple episodes penetration of thin liquid barium is demonstrated. Sequential swallows through a straw results in aspiration of thin liquid barium. Ingestion of nectar thick liquid barium demonstrates equivocal penetration. No aspiration or penetration of honey thick or barium pur?e. Impression: Positive for aspiration and penetration of thin liquid barium Equivocal penetration of nectar thick liquid barium Please refer to speech pathology report for more detailed analysis
--- NOTE | 2017-03-11 15:27 | Diagnostic Imaging Report ---
Indications: DYSPHAGIA Technique: Patient ingested multiple substances under the supervision of speech pathology. Video fluoroscopic recording performed. Total fluoroscopy time 284 seconds. Total dose area product 0.81062 mGycm2 Comparison: none Findings: There is a nasogastric tube in place. Multiple episodes penetration of thin liquid barium is demonstrated. Sequential swallows through a straw results in aspiration of thin liquid barium. Ingestion of nectar thick liquid barium demonstrates equivocal penetration. No aspiration or penetration of honey thick or barium pur?e. Impression: Positive for aspiration and penetration of thin liquid barium Equivocal penetration of nectar thick liquid barium Please refer to speech pathology report for more detailed analysis
--- NOTE | 2017-03-11 15:27 | Diagnostic Imaging Report ---
Indications: DYSPHAGIA Technique: Patient ingested multiple substances under the supervision of speech pathology. Video fluoroscopic recording performed. Total fluoroscopy time 284 seconds. Total dose area product 0.57737 mGycm2 Comparison: none Findings: There is a nasogastric tube in place. Multiple episodes penetration of thin liquid barium is demonstrated. Sequential swallows through a straw results in aspiration of thin liquid barium. Ingestion of nectar thick liquid barium demonstrates equivocal penetration. No aspiration or penetration of honey thick or barium pur?e. Impression: Positive for aspiration and penetration of thin liquid barium Equivocal penetration of nectar thick liquid barium Please refer to speech pathology report for more detailed analysis
[2017-03-11] MEDS ORDERED: NS 275ml ONE (15:56)
[2017-03-11 16:00] VITALS: BP 112/42
--- NOTE | 2017-03-11 16:56 | Cardiology Progress Note ---
Assessment/Plan Assessment/Plan 1. Respiratory failure. 2. Chronic obstructive pulmonary disease exacerbation. 3. Questionable pneumonia. 4. History of mitral regurgitation of significant degree. 5. History of subdural hematomas and intracranial hemorrhage. 6. History of breast cancer. 7. Anemia. 8. History of Clostridium difficile colitis. 9. History of anxiety. 10. Sinus tachycardia secondary to above. 11. Htn 12. CHF acute diastolic 13. l m bronchus occlusion with debris 14. lung collapase 15 Hypotension resolved 16. alkalosis resolved cxr noted : suggestion of increasing left lung volume loss, over 2 days. Possible endoluminal occlusion of the distal left mainstem bronchus. Slightly decreased interstitial congestion on the right Persistent left pleural effusion Interim nasogastric tube removal labs reviewed wbc elevated bp ok today tele sinus pro bnp not sig elevated watch pleural effusion hhn Subjective ROS Limited/Unobtainable: Yes Objective Last 24 Hour Vital Signs Date Time Temp Pulse Resp B/P (MAP) Pulse Ox O2 Delivery O2 Flow Rate FiO2 03/11/17 16:00 72 03/11/17 16:00 97.8 76 22 112/42 Venturi Mask 55 03/11/17 12:00 82 03/11/17 12:00 90/41 03/11/17 12:00 97.6 79 21 90/41 96 Venturi Mask 55 03/11/17 10:41 98.0 03/11/17 09:43 82 152/68 03/11/17 09:42 82 152/68 03/11/17 08:57 Venturi Mask 14.0 50 03/11/17 08:57 94 Venturi Mask 14.0 50 03/11/17 08:00 81 03/11/17 07:47 98.0 82 22 152/68 92 Venturi Mask 55 03/11/17 05:46 129/59 03/11/17 04:00 87 03/11/17 04:00 97.9 79 19 108/40 94 Venturi Mask 55 03/11/17 00:00 98.1 75 18 103/48 91 Nasal Cannula 3.0 03/11/17 00:00 73 03/11/17 00:00 98/40 03/10/17 20:44 68 88/40 03/10/17 20:01 94 Nasal Cannula 3.0 32 03/10/17 20:01 Nasal Cannula 3.0 32 03/10/17 20:00 72 03/10/17 20:00 97.9 73 18 88/40 92 Nasal Cannula 3.0 03/10/17 17:31 96/40 General Appearance: other - sleepy on venti mask Neck: no JVD Cardiovascular: normal rate, regular rhythm Respiratory/Chest: lungs clear - ant Abdomen: normal bowel sounds, non tender, soft Extremities: no swelling Intake and Output 03/11/17 03/12/17 19:00 07:00 Intake Total 770 ml Output Total 500 ml Balance 270 ml Intake Oral 470 ml IV Total 300 ml Output Urine Total 500 ml Laboratory Tests Test 03/11/17 03:05 White Blood Count 11.5 K/UL (4.8-10.8) H Red Blood Count 2.81 M/UL (4.20-5.40) L Hemoglobin 9.6 G/DL (12.0-16.0) L Hematocrit 28.6 % (37.0-47.0) L Mean Corpuscular Volume 102 FL (80-99) H Mean Corpuscular Hemoglobin 34.3 PG (27.0-31.0) H Mean Corpuscular Hemoglobin Concent 33.7 G/DL (32.0-36.0) Red Cell Distribution Width 12.6 % (11.6-14.8) Platelet Count 220 K/UL (150-450) Mean Platelet Volume 7.7 FL (6.5-10.1) Neutrophils (%) (Auto) 79.8 % (45.0-75.0) H Lymphocytes (%) (Auto) 14.3 % (20.0-45.0) L Monocytes (%) (Auto) 4.3 % (1.0-10.0) Eosinophils (%) (Auto) 1.4 % (0.0-3.0) Basophils (%) (Auto) 0.2 % (0.0-2.0) Sodium Level 144 MMOL/L (136-145) Potassium Level 3.0 MMOL/L (3.5-5.1) L Chloride Level 104 MMOL/L (98-107) Carbon Dioxide Level 33 MMOL/L (21-32) H Anion Gap 7 mmol/L (5-15) Blood Urea Nitrogen 36 mg/dL (7-18) H Creatinine 0.7 MG/DL (0.55-1.30) Estimat Glomerular Filtration Rate mL/min (>60) Glucose Level 89 MG/DL (74-106) Calcium Level 9.0 MG/DL (8.5-10.1) Total Bilirubin 0.5 MG/DL (0.2-1.0) Aspartate Amino Transf (AST/SGOT) 16 U/L (15-37) Alanine Aminotransferase (ALT/SGPT) 21 U/L (12-78) Alkaline Phosphatase 56 U/L (46-116) Pro-B-Type Natriuretic Peptide 311 pg/mL (0-125) H Total Protein 6.0 G/DL (6.4-8.2) L Albumin 2.5 G/DL (3.4-5.0) L Globulin 3.5 g/dL Albumin/Globulin Ratio 0.7 (1.0-2.7) L JEFFERSON ROMEO Mar 11, 2017 16:56
[2017-03-11 20:00] VITALS: BP 97/41
[2017-03-12] VITALS: BP 124/57
[2017-03-12] MEDS: HydrALAZINE 10mg Tab NG SCH ×4 (00:37→17:52)
[2017-03-12 04:00] VITALS: BP 100/46
[2017-03-12] MEDS: Metoclopramide 10mg/2ml Inj IVP SCH ×3 (05:51→22:00)
[2017-03-12 08:00] VITALS: BP 113/57
[2017-03-12] MEDS: Pantoprazole Inj IV SCH (08:32)
[2017-03-12] MEDS: Allopurinol 100mg Tab ORAL SCH (08:33)
[2017-03-12] MEDS: Carvedilol 25mg Tab ORAL SCH ×2 (08:33→21:00)
[2017-03-12] MEDS: Aspirin EC 81mg tab ORAL SCH (08:33)
[2017-03-12] MEDS: Lyrica 75mg cap ORAL SCH ×3 (08:34→18:13)
[2017-03-12 11:01] LABS: BASOPHILS % (AUTO) 0.2 % (0.0-2.0); EOSINOPHILS % (AUTO) 0.5 % (0.0-3.0); HEMATOCRIT 27.2 % (37.0-47.0); HEMOGLOBIN 8.7 G/DL (12.0-16.0); LYMPHOCYTES % (AUTO) 14.6 % (20.0-45.0); MEAN CORPUSCULAR VOLUME 101 FL (80-99); MONOCYTES % (AUTO) 4.1 % (1.0-10.0); NEUTROPHILS % (AUTO) 80.5 % (45.0-75.0); PLATELET COUNT 215 K/UL (150-450); RED BLOOD COUNT 2.69 M/UL (4.20-5.40); RED CELL DISTRIBUTION WIDTH 12.3 % (11.6-14.8); WHITE BLOOD COUNT 10.1 K/UL (4.8-10.8)
[2017-03-12 11:31] LABS: ALANINE AMINOTRANSFERASE 20 U/L (12-78); ALBUMIN 2.3 G/DL (3.4-5.0); ALBUMIN/GLOBULIN RATIO 0.7 (1.0-2.7); ALKALINE PHOSPHATASE 56 U/L (46-116); ANION GAP 2 mmol/L (5-15); ASPARTATE AMINO TRANSFERASE 17 U/L (15-37); BILIRUBIN,TOTAL 0.6 MG/DL (0.2-1.0); BLOOD UREA NITROGEN 32 mg/dL (7-18); CALCIUM 8.5 MG/DL (8.5-10.1); CARBON DIOXIDE 34 MMOL/L (21-32); CHLORIDE 99 MMOL/L (98-107); PHOSPHORUS 2.7 MG/DL (2.5-4.9); POTASSIUM 3.2 MMOL/L (3.5-5.1); SODIUM 135 MMOL/L (136-145)
[2017-03-12] MEDS: Morphine Sulfate 4mg/ml Inj IVP PRN ×2 (11:40→21:53)
[2017-03-12 12:00] VITALS: BP 100/46
--- NOTE | 2017-03-12 12:11 | Infectious Diseases Prog Note ---
Assessment/Plan Assessment/Plan Assessment/Plan Abx: IV Vanco 02/15-03/01 Cefepime 02/15-02/18 Meropenem 02/18-03/03 Assesment: Low grade, SP Ucx >100k yeast (colonizer) No evid of pneumonia at this time - SP bronch 02/26 (collected 02/26, however received on the lab 03/03??): BAL cx NTD -CXR 03/03: Stable bilateral interstitial and alveolar opacities, probable small left pleural effusion, elevation left hemidiaphragm - CT Chest 02/24: Near-complete occlusion of the left mainstem bronchus and proximal lobar bronchi, probably by debris. Extensive resultant atelectasis and consolidation of nearly the entire left lung. Less extensive consolidation within the right lung, nonspecific as regards etiology, likely secondary to pneumonia or edema Crypt Ag serum neg; -sp cx 03/06 <1+ Proteus Mirabilis (S Ancef/CTX, bactrim; R Cipro/levo); s/p recent PNA tx CXR 03/05: There is suggestion of slightly increased pleural fluid on the left. Hazy opacity in the right lung is stable Leukocytosis, mild - recurrent, (s/p steroids 03/07) Swallow eval : Positive for aspiration and penetration of thin liquid barium Acute hypoxic resp failure, SP Intubated 02/26; extubated 03/07 -venous duplex 02/16 no DVT L pleural effusion - improved COPD on home O2 Hx of Cdiff DM2 Chronic abd pain hx of MRSA bacteremia 07/2015 TCA allergy Full Code fibromyalgia, HTN, HLD, R breast cancer,Tobacco abuse (stopped 4 years ago), Anxiety, AOCD Plan: -Continue to monitor off abx; if febrile, increased leukocytosis, oxygen requirements or worsenign CXR- start IV Ceftriaxone for Proteus on sputum -s/p 14d IV Meropenem 03/03 -s/p 14 d IV Vancomycin 03/01 -s/p 6d prophylactic PO vanco 02/21 -s/p 4 d Cefepime 02/18 -f/u Cocci ab -Monitor CBC/BMP, temperatures -Aspiration precautions - vent support, wean as tolerated Subjective Constitutional: Denies: no symptoms, fever, chills, fatigue, anorexia, drenching sweats, other Allergies: Coded Allergies: TETRACYCLINE (Unverified Allergy, Unknown, 3/16/15) Objective Vital Signs Last 24 Hour Vital Signs Date Time Temp Pulse Resp B/P (MAP) Pulse Ox O2 Delivery O2 Flow Rate FiO2 03/12/17 09:33 97.0 03/12/17 09:00 82 113/57 03/12/17 08:33 82 113/57 03/12/17 08:00 97.0 82 20 113/57 95 Venturi Mask 55 03/12/17 08:00 76 03/12/17 06:36 93 Venturi Mask 14.0 50 03/12/17 06:36 Venturi Mask 14.0 50 03/12/17 05:52 100/46 03/12/17 04:00 82 03/12/17 04:00 97.2 80 20 100/46 Venturi Mask 55 03/12/17 00:37 124/57 03/12/17 00:00 71 03/12/17 00:00 97.3 75 20 124/57 Venturi Mask 55 03/11/17 21:00 76 92/44 03/11/17 20:22 83 03/11/17 20:00 97.7 77 21 97/41 Venturi Mask 55 03/11/17 19:28 95 Venturi Mask 14.0 50 03/11/17 19:28 Venturi Mask 14.0 50 03/11/17 18:34 130/59 03/11/17 16:00 72 03/11/17 16:00 97.8 76 22 112/42 Venturi Mask 55 Height (Feet): 5 Height (Inches): 7.00 Weight (Pounds): 105 HEENT: anicteric Respiratory/Chest: no accessory muscle use Cardiovascular: regularly irregular Abdomen: non distended Laboratory Tests Test 03/12/17 10:40 White Blood Count 10.1 K/UL (4.8-10.8) Red Blood Count 2.69 M/UL (4.20-5.40) L Hemoglobin 8.7 G/DL (12.0-16.0) L Hematocrit 27.2 % (37.0-47.0) L Mean Corpuscular Volume 101 FL (80-99) H Mean Corpuscular Hemoglobin 32.3 PG (27.0-31.0) H Mean Corpuscular Hemoglobin Concent 31.9 G/DL (32.0-36.0) L Red Cell Distribution Width 12.3 % (11.6-14.8) Platelet Count 215 K/UL (150-450) Mean Platelet Volume 8.0 FL (6.5-10.1) Neutrophils (%) (Auto) 80.5 % (45.0-75.0) H Lymphocytes (%) (Auto) 14.6 % (20.0-45.0) L Monocytes (%) (Auto) 4.1 % (1.0-10.0) Eosinophils (%) (Auto) 0.5 % (0.0-3.0) Basophils (%) (Auto) 0.2 % (0.0-2.0) Sodium Level 135 MMOL/L (136-145) L Potassium Level 3.2 MMOL/L (3.5-5.1) L Chloride Level 99 MMOL/L (98-107) Carbon Dioxide Level 34 MMOL/L (21-32) H Anion Gap 2 mmol/L (5-15) L Blood Urea Nitrogen 32 mg/dL (7-18) H Creatinine 1.0 MG/DL (0.55-1.30) Estimat Glomerular Filtration Rate mL/min (>60) Glucose Level 166 MG/DL (74-106) H Calcium Level 8.5 MG/DL (8.5-10.1) Phosphorus Level 2.7 MG/DL (2.5-4.9) Magnesium Level 1.8 MG/DL (1.8-2.4) Total Bilirubin 0.6 MG/DL (0.2-1.0) Aspartate Amino Transf (AST/SGOT) 17 U/L (15-37) Alanine Aminotransferase (ALT/SGPT) 20 U/L (12-78) Alkaline Phosphatase 56 U/L (46-116) C-Reactive Protein, Quantitative 14.3 mg/dL (0.00-0.90) H Pro-B-Type Natriuretic Peptide 428 pg/mL (0-125) H Total Protein 5.7 G/DL (6.4-8.2) L Albumin 2.3 G/DL (3.4-5.0) L Globulin 3.4 g/dL Albumin/Globulin Ratio 0.7 (1.0-2.7) L Current Medications Medications (Trade) Dose Ordered Sig/Wilner Route PRN Reason Start Time Stop Time Status Last Admin Dose Admin Acetaminophen (Tylenol) 650 mg Q4H PRN ORAL Fever/Headache/Mild Pain 03/08/17 20:00 04/07/17 23:59 Allopurinol (Zyloprim) 100 mg DAILY ORAL 03/09/17 09:00 04/07/17 23:59 03/12/17 08:33 Amlodipine Besylate (Norvasc) 10 mg DAILY ORAL 03/04/17 12:00 04/03/17 11:59 03/11/17 09:43 Aspirin (Ecotrin) 81 mg DAILY ORAL 03/09/17 09:00 03/29/17 23:59 03/12/17 08:33 Bisacodyl (Dulcolax) 10 mg DAILYPRN PRN RECTAL Constipation Third Line Agent 03/08/17 18:15 04/07/17 23:59 Carvedilol (Coreg) 25 mg Q12HR ORAL 03/05/17 21:00 04/04/17 20:59 03/12/17 08:33 Dextrose (Dextrose 50%) STAT PRN IV Hypoglycemia 02/25/17 15:15 03/17/17 15:14 Escitalopram Oxalate (Lexapro) 10 mg DAILY ORAL 02/26/17 09:00 03/20/17 08:59 03/12/17 08:33 Haloperidol Lactate (Haldol) 2 mg Q4H PRN IM Agitation 02/25/17 15:15 03/27/17 15:14 03/08/17 15:58 Hydralazine HCl (Apresoline) 10 mg Q6HR NG 03/05/17 12:00 04/04/17 11:59 03/12/17 00:37 Hydralazine HCl (Apresoline) 25 mg Q4H PRN ORAL SBP > 160mmHg 02/25/17 15:15 03/27/17 15:14 03/04/17 08:30 Lidocaine (Xylocaine 1% MPF 5ml) 10 ml Q4H PRN HHN cough 02/25/17 15:15 03/19/17 15:14 Metoclopramide HCl (Reglan) 5 mg Q8HR IVP 03/04/17 22:00 04/03/17 21:59 03/12/17 05:51 Morphine Sulfate (Morphine Sulfate) 2 mg Q4H PRN IVP Pain 4-10 03/08/17 09:15 03/15/17 09:14 03/12/17 11:40 Ondansetron HCl (Zofran) 4 mg Q6H PRN IVP Nausea & Vomiting 02/25/17 15:15 03/17/17 15:14 03/12/17 08:34 Pantoprazole (Protonix) 40 mg DAILY IV 02/27/17 09:00 03/29/17 08:59 03/12/17 08:32 Polyethylene Glycol (Miralax) 17 gm DAILYPRN PRN ORAL Constipation First line agent 02/25/17 15:15 03/17/17 15:14 Pravastatin Sodium (Pravachol) 20 mg BEDTIME ORAL 02/25/17 21:00 03/18/17 20:59 03/11/17 21:00 Pregabalin (Lyrica) 150 mg THREE TIMES A DAY ORAL 02/25/17 18:00 03/18/17 12:59 03/12/17 08:34 Promethazine HCl/ Codeine (Phenergan with Codeine) 5 ml Q4H PRN ORAL UNRELIEVED COUGH 02/25/17 15:15 03/18/17 15:14 Ranitidine HCl (Zantac) 150 mg QPM ORAL 02/25/17 16:30 03/27/17 16:29 03/11/17 17:04 ORLANDO RODRIGUEZ M.D. Mar 12, 2017 12:11
--- NOTE | 2017-03-12 14:10 | Infectious Diseases Prog Note ---
Assessment/Plan Assessment/Plan Assessment/Plan Abx: IV Vanco 02/15-03/01 Cefepime 02/15-02/18 Meropenem 02/18-03/03 Assesment: Low grade, SP Ucx >100k yeast (colonizer) No evid of pneumonia at this time - SP bronch 02/26 (collected 02/26, however received on the lab 03/03??): BAL cx NTD -CXR 03/03: Stable bilateral interstitial and alveolar opacities, probable small left pleural effusion, elevation left hemidiaphragm - CT Chest 02/24: Near-complete occlusion of the left mainstem bronchus and proximal lobar bronchi, probably by debris. Extensive resultant atelectasis and consolidation of nearly the entire left lung. Less extensive consolidation within the right lung, nonspecific as regards etiology, likely secondary to pneumonia or edema Crypt Ag serum neg; -sp cx 03/06 <1+ Proteus Mirabilis (S Ancef/CTX, bactrim; R Cipro/levo); s/p recent PNA tx CXR 03/05: There is suggestion of slightly increased pleural fluid on the left. Hazy opacity in the right lung is stable Leukocytosis, mild - recurrent, (s/p steroids 03/07) Swallow eval : Positive for aspiration and penetration of thin liquid barium Acute hypoxic resp failure, SP Intubated 02/26; extubated 03/07 -venous duplex 02/16 no DVT L pleural effusion - improved COPD on home O2 Hx of Cdiff DM2 Chronic abd pain hx of MRSA bacteremia 07/2015 TCA allergy Full Code fibromyalgia, HTN, HLD, R breast cancer,Tobacco abuse (stopped 4 years ago), Anxiety, AOCD Plan: -Continue to monitor off abx; if febrile, increased leukocytosis, oxygen requirements or worsenign CXR- start IV Ceftriaxone for Proteus on sputum -s/p 14d IV Meropenem 03/03 -s/p 14 d IV Vancomycin 03/01 -s/p 6d prophylactic PO vanco 02/21 -s/p 4 d Cefepime 02/18 -f/u Cocci ab -Monitor CBC/BMP, temperatures -Aspiration precautions - vent support, wean as tolerated Subjective Constitutional: Denies: no symptoms, fever, chills, fatigue, anorexia, drenching sweats, other Allergies: Coded Allergies: TETRACYCLINE (Unverified Allergy, Unknown, 3/16/15) Objective Vital Signs Last 24 Hour Vital Signs Date Time Temp Pulse Resp B/P (MAP) Pulse Ox O2 Delivery O2 Flow Rate FiO2 03/12/17 12:10 96.6 03/12/17 12:00 96.6 74 22 100/46 97 Venturi Mask 55 03/12/17 12:00 100/46 03/12/17 12:00 74 03/12/17 09:33 97.0 03/12/17 09:00 82 113/57 03/12/17 08:33 82 113/57 03/12/17 08:00 97.0 82 20 113/57 95 Venturi Mask 55 03/12/17 08:00 76 03/12/17 06:36 93 Venturi Mask 14.0 50 03/12/17 06:36 Venturi Mask 14.0 50 03/12/17 05:52 100/46 03/12/17 04:00 82 03/12/17 04:00 97.2 80 20 100/46 Venturi Mask 55 03/12/17 00:37 124/57 03/12/17 00:00 71 03/12/17 00:00 97.3 75 20 124/57 Venturi Mask 55 03/11/17 21:00 76 92/44 03/11/17 20:22 83 03/11/17 20:00 97.7 77 21 97/41 Venturi Mask 55 03/11/17 19:28 95 Venturi Mask 14.0 50 03/11/17 19:28 Venturi Mask 14.0 50 03/11/17 18:34 130/59 03/11/17 16:00 72 03/11/17 16:00 97.8 76 22 112/42 Venturi Mask 55 Height (Feet): 5 Height (Inches): 7.00 Weight (Pounds): 105 HEENT: anicteric Respiratory/Chest: normal breath sounds Cardiovascular: regular rhythm Abdomen: no organomegaly Laboratory Tests Test 03/12/17 10:40 White Blood Count 10.1 K/UL (4.8-10.8) Red Blood Count 2.69 M/UL (4.20-5.40) L Hemoglobin 8.7 G/DL (12.0-16.0) L Hematocrit 27.2 % (37.0-47.0) L Mean Corpuscular Volume 101 FL (80-99) H Mean Corpuscular Hemoglobin 32.3 PG (27.0-31.0) H Mean Corpuscular Hemoglobin Concent 31.9 G/DL (32.0-36.0) L Red Cell Distribution Width 12.3 % (11.6-14.8) Platelet Count 215 K/UL (150-450) Mean Platelet Volume 8.0 FL (6.5-10.1) Neutrophils (%) (Auto) 80.5 % (45.0-75.0) H Lymphocytes (%) (Auto) 14.6 % (20.0-45.0) L Monocytes (%) (Auto) 4.1 % (1.0-10.0) Eosinophils (%) (Auto) 0.5 % (0.0-3.0) Basophils (%) (Auto) 0.2 % (0.0-2.0) Sodium Level 135 MMOL/L (136-145) L Potassium Level 3.2 MMOL/L (3.5-5.1) L Chloride Level 99 MMOL/L (98-107) Carbon Dioxide Level 34 MMOL/L (21-32) H Anion Gap 2 mmol/L (5-15) L Blood Urea Nitrogen 32 mg/dL (7-18) H Creatinine 1.0 MG/DL (0.55-1.30) Estimat Glomerular Filtration Rate mL/min (>60) Glucose Level 166 MG/DL (74-106) H Calcium Level 8.5 MG/DL (8.5-10.1) Phosphorus Level 2.7 MG/DL (2.5-4.9) Magnesium Level 1.8 MG/DL (1.8-2.4) Total Bilirubin 0.6 MG/DL (0.2-1.0) Aspartate Amino Transf (AST/SGOT) 17 U/L (15-37) Alanine Aminotransferase (ALT/SGPT) 20 U/L (12-78) Alkaline Phosphatase 56 U/L (46-116) C-Reactive Protein, Quantitative 14.3 mg/dL (0.00-0.90) H Pro-B-Type Natriuretic Peptide 428 pg/mL (0-125) H Total Protein 5.7 G/DL (6.4-8.2) L Albumin 2.3 G/DL (3.4-5.0) L Globulin 3.4 g/dL Albumin/Globulin Ratio 0.7 (1.0-2.7) L Current Medications Medications (Trade) Dose Ordered Sig/Wilner Route PRN Reason Start Time Stop Time Status Last Admin Dose Admin Acetaminophen (Tylenol) 650 mg Q4H PRN ORAL Fever/Headache/Mild Pain 03/08/17 20:00 04/07/17 23:59 Allopurinol (Zyloprim) 100 mg DAILY ORAL 03/09/17 09:00 04/07/17 23:59 03/12/17 08:33 Amlodipine Besylate (Norvasc) 10 mg DAILY ORAL 03/04/17 12:00 04/03/17 11:59 03/11/17 09:43 Aspirin (Ecotrin) 81 mg DAILY ORAL 03/09/17 09:00 03/29/17 23:59 03/12/17 08:33 Bisacodyl (Dulcolax) 10 mg DAILYPRN PRN RECTAL Constipation Third Line Agent 03/08/17 18:15 04/07/17 23:59 Carvedilol (Coreg) 25 mg Q12HR ORAL 03/05/17 21:00 04/04/17 20:59 03/12/17 08:33 Dextrose (Dextrose 50%) STAT PRN IV Hypoglycemia 02/25/17 15:15 03/17/17 15:14 Escitalopram Oxalate (Lexapro) 10 mg DAILY ORAL 02/26/17 09:00 03/20/17 08:59 03/12/17 08:33 Haloperidol Lactate (Haldol) 2 mg Q4H PRN IM Agitation 02/25/17 15:15 03/27/17 15:14 03/08/17 15:58 Hydralazine HCl (Apresoline) 10 mg Q6HR NG 03/05/17 12:00 04/04/17 11:59 03/12/17 00:37 Hydralazine HCl (Apresoline) 25 mg Q4H PRN ORAL SBP > 160mmHg 02/25/17 15:15 03/27/17 15:14 03/04/17 08:30 Lidocaine (Xylocaine 1% MPF 5ml) 10 ml Q4H PRN HHN cough 02/25/17 15:15 03/19/17 15:14 Metoclopramide HCl (Reglan) 5 mg Q8HR IVP 03/04/17 22:00 04/03/17 21:59 03/12/17 13:24 Morphine Sulfate (Morphine Sulfate) 2 mg Q4H PRN IVP Pain 4-10 03/08/17 09:15 03/15/17 09:14 03/12/17 11:40 Ondansetron HCl (Zofran) 4 mg Q6H PRN IVP Nausea & Vomiting 02/25/17 15:15 03/17/17 15:14 03/12/17 08:34 Pantoprazole (Protonix) 40 mg DAILY IV 02/27/17 09:00 03/29/17 08:59 03/12/17 08:32 Polyethylene Glycol (Miralax) 17 gm DAILYPRN PRN ORAL Constipation First line agent 02/25/17 15:15 03/17/17 15:14 Pravastatin Sodium (Pravachol) 20 mg BEDTIME ORAL 02/25/17 21:00 03/18/17 20:59 03/11/17 21:00 Pregabalin (Lyrica) 150 mg THREE TIMES A DAY ORAL 02/25/17 18:00 03/18/17 12:59 03/12/17 13:23 Promethazine HCl/ Codeine (Phenergan with Codeine) 5 ml Q4H PRN ORAL UNRELIEVED COUGH 02/25/17 15:15 03/18/17 15:14 Ranitidine HCl (Zantac) 150 mg QPM ORAL 02/25/17 16:30 03/27/17 16:29 03/11/17 17:04 ORLANDO RODRIGUEZ M.D. Mar 12, 2017 14:10
--- NOTE | 2017-03-12 14:16 | Pulmonology Progress Note ---
Assessment/Plan Problems: (1) Acute and chronic respiratory failure ([id number]) (2) COPD exacerbation (3) Pneumonia (4) Fibromyalgia (5) History of breast cancer (6) Limited mobility Assessment/Plan cxr worsening slightly more aggressive Chest PT incentive spirometry advance diet as tolerated I talked about code status with , She stated she wants to live and in case she is in respiratory failure, she wants reintubation again. Subjective ROS Limited/Unobtainable: No Constitutional: Reports: no symptoms HEENT: Repors: no symptoms Allergies: Coded Allergies: TETRACYCLINE (Unverified Allergy, Unknown, 07/24/14) Objective Last 24 Hour Vital Signs Date Time Temp Pulse Resp B/P (MAP) Pulse Ox O2 Delivery O2 Flow Rate FiO2 03/12/17 12:10 96.6 03/12/17 12:00 96.6 74 22 100/46 97 Venturi Mask 55 03/12/17 12:00 100/46 03/12/17 12:00 74 03/12/17 09:33 97.0 03/12/17 09:00 82 113/57 03/12/17 08:33 82 113/57 03/12/17 08:00 97.0 82 20 113/57 95 Venturi Mask 55 03/12/17 08:00 76 03/12/17 06:36 93 Venturi Mask 14.0 50 03/12/17 06:36 Venturi Mask 14.0 50 03/12/17 05:52 100/46 03/12/17 04:00 82 03/12/17 04:00 97.2 80 20 100/46 Venturi Mask 55 03/12/17 00:37 124/57 03/12/17 00:00 71 03/12/17 00:00 97.3 75 20 124/57 Venturi Mask 55 03/11/17 21:00 76 92/44 03/11/17 20:22 83 03/11/17 20:00 97.7 77 21 97/41 Venturi Mask 55 03/11/17 19:28 95 Venturi Mask 14.0 50 03/11/17 19:28 Venturi Mask 14.0 50 03/11/17 18:34 130/59 03/11/17 16:00 72 03/11/17 16:00 97.8 76 22 112/42 Venturi Mask 55 General Appearance: WD/WN HEENT: normocephalic, atraumatic Respiratory/Chest: chest wall non-tender, lungs clear Breasts: no masses Cardiovascular: normal peripheral pulses, normal rate Abdomen: normal bowel sounds, no organomegaly Genitourinary: normal external genitalia Skin: no ulcers Neurologic/Psychiatric: no motor/sensory deficits, abnormal gait Lymphatic: no neck adenopathy Laboratory Tests 03/12/17 10:40: White Blood Count 10.1, Red Blood Count 2.69L, Hemoglobin 8.7L, Hematocrit 27.2L , Mean Corpuscular Volume 101H, Mean Corpuscular Hemoglobin 32.3H, Mean Corpuscular Hemoglobin Concent 31.9L, Red Cell Distribution Width 12.3, Platelet Count 215, Mean Platelet Volume 8.0, Neutrophils (%) (Auto) 80.5H, Lymphocytes (%) (Auto) 14.6L, Monocytes (%) (Auto) 4.1, Eosinophils (%) (Auto) 0.5, Basophils (%) (Auto) 0.2, Sodium Level 135L, Potassium Level 3.2L, Chloride Level 99, Carbon Dioxide Level 34H, Anion Gap 2L, Blood Urea Nitrogen 32H, Creatinine 1.0, Estimat Glomerular Filtration Rate , Glucose Level 166H, Calcium Level 8.5, Phosphorus Level 2.7, Magnesium Level 1.8, Total Bilirubin 0.6, Aspartate Amino Transf (AST/SGOT) 17, Alanine Aminotransferase (ALT/SGPT) 20, Alkaline Phosphatase 56, C-Reactive Protein, Quantitative 14.3H, Pro-B-Type Natriuretic Peptide 428H, Total Protein 5.7L, Albumin 2.3L, Globulin 3.4, Albumin/Globulin Ratio 0.7L Current Medications Medications (Trade) Dose Ordered Sig/Wilner Route PRN Reason Start Time Stop Time Status Last Admin Dose Admin Acetaminophen (Tylenol) 650 mg Q4H PRN ORAL Fever/Headache/Mild Pain 03/08/17 20:00 04/07/17 23:59 Allopurinol (Zyloprim) 100 mg DAILY ORAL 03/09/17 09:00 04/07/17 23:59 03/12/17 08:33 Amlodipine Besylate (Norvasc) 10 mg DAILY ORAL 03/04/17 12:00 04/03/17 11:59 03/11/17 09:43 Aspirin (Ecotrin) 81 mg DAILY ORAL 03/09/17 09:00 03/29/17 23:59 03/12/17 08:33 Bisacodyl (Dulcolax) 10 mg DAILYPRN PRN RECTAL Constipation Third Line Agent 03/08/17 18:15 04/07/17 23:59 Carvedilol (Coreg) 25 mg Q12HR ORAL 03/05/17 21:00 04/04/17 20:59 03/12/17 08:33 Dextrose (Dextrose 50%) STAT PRN IV Hypoglycemia 02/25/17 15:15 03/17/17 15:14 Escitalopram Oxalate (Lexapro) 10 mg DAILY ORAL 02/26/17 09:00 03/20/17 08:59 03/12/17 08:33 Haloperidol Lactate (Haldol) 2 mg Q4H PRN IM Agitation 02/25/17 15:15 03/27/17 15:14 03/08/17 15:58 Hydralazine HCl (Apresoline) 10 mg Q6HR NG 03/05/17 12:00 04/04/17 11:59 03/12/17 00:37 Hydralazine HCl (Apresoline) 25 mg Q4H PRN ORAL SBP > 160mmHg 02/25/17 15:15 03/27/17 15:14 03/04/17 08:30 Lidocaine (Xylocaine 1% MPF 5ml) 10 ml Q4H PRN HHN cough 02/25/17 15:15 03/19/17 15:14 Metoclopramide HCl (Reglan) 5 mg Q8HR IVP 03/04/17 22:00 04/03/17 21:59 03/12/17 13:24 Morphine Sulfate (Morphine Sulfate) 2 mg Q4H PRN IVP Pain 4-10 03/08/17 09:15 03/15/17 09:14 03/12/17 11:40 Ondansetron HCl (Zofran) 4 mg Q6H PRN IVP Nausea & Vomiting 02/25/17 15:15 03/17/17 15:14 03/12/17 08:34 Pantoprazole (Protonix) 40 mg DAILY IV 02/27/17 09:00 03/29/17 08:59 03/12/17 08:32 Polyethylene Glycol (Miralax) 17 gm DAILYPRN PRN ORAL Constipation First line agent 02/25/17 15:15 03/17/17 15:14 Pravastatin Sodium (Pravachol) 20 mg BEDTIME ORAL 02/25/17 21:00 03/18/17 20:59 03/11/17 21:00 Pregabalin (Lyrica) 150 mg THREE TIMES A DAY ORAL 02/25/17 18:00 03/18/17 12:59 03/12/17 13:23 Promethazine HCl/ Codeine (Phenergan with Codeine) 5 ml Q4H PRN ORAL UNRELIEVED COUGH 02/25/17 15:15 03/18/17 15:14 Ranitidine HCl (Zantac) 150 mg QPM ORAL 02/25/17 16:30 03/27/17 16:29 03/11/17 17:04 TWIN FONTANEZ Mar 12, 2017 14:16
[2017-03-12 16:00] VITALS: BP 131/60
--- NOTE | 2017-03-12 17:49 | Internal Med Progress Note ---
Subjective Date of Service: Mar 12, 2017 Physician Name Zeb Fuentes Attending Physician Jun Cedillo MD Current Medications Medications (Trade) Dose Ordered Sig/Wilner Route PRN Reason Start Time Stop Time Status Last Admin Dose Admin Acetaminophen (Tylenol) 650 mg Q4H PRN ORAL Fever/Headache/Mild Pain 03/08/17 20:00 04/07/17 23:59 Allopurinol (Zyloprim) 100 mg DAILY ORAL 03/09/17 09:00 04/07/17 23:59 03/12/17 08:33 Amlodipine Besylate (Norvasc) 10 mg DAILY ORAL 03/04/17 12:00 04/03/17 11:59 03/11/17 09:43 Aspirin (Ecotrin) 81 mg DAILY ORAL 03/09/17 09:00 03/29/17 23:59 03/12/17 08:33 Bisacodyl (Dulcolax) 10 mg DAILYPRN PRN RECTAL Constipation Third Line Agent 03/08/17 18:15 04/07/17 23:59 Carvedilol (Coreg) 25 mg Q12HR ORAL 03/05/17 21:00 04/04/17 20:59 03/12/17 08:33 Dextrose (Dextrose 50%) STAT PRN IV Hypoglycemia 02/25/17 15:15 03/17/17 15:14 Escitalopram Oxalate (Lexapro) 10 mg DAILY ORAL 02/26/17 09:00 03/20/17 08:59 03/12/17 08:33 Haloperidol Lactate (Haldol) 2 mg Q4H PRN IM Agitation 02/25/17 15:15 03/27/17 15:14 03/08/17 15:58 Hydralazine HCl (Apresoline) 10 mg Q6HR NG 03/05/17 12:00 04/04/17 11:59 03/12/17 00:37 Hydralazine HCl (Apresoline) 25 mg Q4H PRN ORAL SBP > 160mmHg 02/25/17 15:15 03/27/17 15:14 03/04/17 08:30 Lidocaine (Xylocaine 1% MPF 5ml) 10 ml Q4H PRN HHN cough 02/25/17 15:15 03/19/17 15:14 Metoclopramide HCl (Reglan) 5 mg Q8HR IVP 03/04/17 22:00 04/03/17 21:59 03/12/17 13:24 Morphine Sulfate (Morphine Sulfate) 2 mg Q4H PRN IVP Pain 4-10 03/08/17 09:15 03/15/17 09:14 03/12/17 11:40 Ondansetron HCl (Zofran) 4 mg Q6H PRN IVP Nausea & Vomiting 02/25/17 15:15 03/17/17 15:14 03/12/17 08:34 Pantoprazole (Protonix) 40 mg DAILY IV 02/27/17 09:00 03/29/17 08:59 03/12/17 08:32 Polyethylene Glycol (Miralax) 17 gm DAILYPRN PRN ORAL Constipation First line agent 02/25/17 15:15 03/17/17 15:14 Potassium Chloride 100 ml @ 100 mls/hr Q1H IVPB 03/12/17 15:00 03/12/17 18:59 03/12/17 17:02 Pravastatin Sodium (Pravachol) 20 mg BEDTIME ORAL 02/25/17 21:00 03/18/17 20:59 03/11/17 21:00 Pregabalin (Lyrica) 150 mg THREE TIMES A DAY ORAL 02/25/17 18:00 03/18/17 12:59 03/12/17 13:23 Promethazine HCl/ Codeine (Phenergan with Codeine) 5 ml Q4H PRN ORAL UNRELIEVED COUGH 02/25/17 15:15 03/18/17 15:14 Ranitidine HCl (Zantac) 150 mg QPM ORAL 02/25/17 16:30 03/27/17 16:29 03/12/17 17:02 Allergies: Coded Allergies: TETRACYCLINE (Unverified Allergy, Unknown, 07/24/14) Subjective 76 YO F admitted with shortness of breath. Now pneumonia. Cover for Int Med- Dr Cedillo. CAYETANO. Failed swallow eval. Tolerating venturi mask Objective Last Vital Signs Date Time Temp Pulse Resp B/P (MAP) Pulse Ox O2 Delivery O2 Flow Rate FiO2 03/12/17 16:00 76 03/12/17 16:00 96.6 22 131/60 98 Venturi Mask 55 03/12/17 06:36 14.0 Laboratory Tests Test 03/12/17 10:40 White Blood Count 10.1 K/UL (4.8-10.8) Red Blood Count 2.69 M/UL (4.20-5.40) L Hemoglobin 8.7 G/DL (12.0-16.0) L Hematocrit 27.2 % (37.0-47.0) L Mean Corpuscular Volume 101 FL (80-99) H Mean Corpuscular Hemoglobin 32.3 PG (27.0-31.0) H Mean Corpuscular Hemoglobin Concent 31.9 G/DL (32.0-36.0) L Red Cell Distribution Width 12.3 % (11.6-14.8) Platelet Count 215 K/UL (150-450) Mean Platelet Volume 8.0 FL (6.5-10.1) Neutrophils (%) (Auto) 80.5 % (45.0-75.0) H Lymphocytes (%) (Auto) 14.6 % (20.0-45.0) L Monocytes (%) (Auto) 4.1 % (1.0-10.0) Eosinophils (%) (Auto) 0.5 % (0.0-3.0) Basophils (%) (Auto) 0.2 % (0.0-2.0) Sodium Level 135 MMOL/L (136-145) L Potassium Level 3.2 MMOL/L (3.5-5.1) L Chloride Level 99 MMOL/L (98-107) Carbon Dioxide Level 34 MMOL/L (21-32) H Anion Gap 2 mmol/L (5-15) L Blood Urea Nitrogen 32 mg/dL (7-18) H Creatinine 1.0 MG/DL (0.55-1.30) Estimat Glomerular Filtration Rate mL/min (>60) Glucose Level 166 MG/DL (74-106) H Calcium Level 8.5 MG/DL (8.5-10.1) Phosphorus Level 2.7 MG/DL (2.5-4.9) Magnesium Level 1.8 MG/DL (1.8-2.4) Total Bilirubin 0.6 MG/DL (0.2-1.0) Aspartate Amino Transf (AST/SGOT) 17 U/L (15-37) Alanine Aminotransferase (ALT/SGPT) 20 U/L (12-78) Alkaline Phosphatase 56 U/L (46-116) C-Reactive Protein, Quantitative 14.3 mg/dL (0.00-0.90) H Pro-B-Type Natriuretic Peptide 428 pg/mL (0-125) H Total Protein 5.7 G/DL (6.4-8.2) L Albumin 2.3 G/DL (3.4-5.0) L Globulin 3.4 g/dL Albumin/Globulin Ratio 0.7 (1.0-2.7) L Intake and Output 03/12/17 03/13/17 19:00 07:00 Intake Total 390 ml Balance 390 ml Intake Oral 390 ml Objective General Appearance: WD/WN, no apparent distress, alert EENT: PERRL/EOMI, normal ENT inspection, TMs normal Neck: non-tender, normal alignment, supple, normal inspection Cardiovascular: normal peripheral pulses, normal rate, regular rhythm, no gallop/murmur, no JVD Respiratory/Chest: Venturi mask; chest wall non-tender, respiratory distress, decreased breath sounds, crackles/rales, rhonchi - bilaterally, expiratory wheezing Abdomen: normal bowel sounds, non tender, soft, no organomegaly, no mass Extremities: normal range of motion 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 (8) Pneumonia Assessment & Plan: Continue Meropenem and vanco. See ID and pulmonary notes. (9) COPD exacerbation Assessment & Plan: Continue IV solumedrol and xopenex/atrovent nebs. See pulmonary note. (10) Diastolic CHF Assessment & Plan: See cardiology note. 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 S/P intubation to aerate left lung-see pulmonary note. D/W pulmonary Dr Hernandez. Extubated 03/07 (14) Respiratory failure requiring intubation Assessment & Plan: Extubated 03/07/17; tolerating venturi mask (15) Dysphagia Assessment & Plan: Failed swallow eval. See speech therapy note. Status: progressing ZEB FUENTES Mar 12, 2017 17:49
--- NOTE | 2017-03-12 18:16 | General Progress Note ---
Assessment/Plan Status: unchanged Assessment/Plan Status: Acute renal failure- etiology? 1900 cc urine out after insertion of shi--JOSE MIGUEL: Moderate right hydronephrosis. Acute on Chronic respiratory failure- extubated now HTN High Cholestrol Pneumonia COPD , exac. Diastolic CHF, Mod MR h/o C dif colitis h/o Breast Ca Anemia Pulm HTN Moderate Plan: now extubated- post extubation care adjust BP meds K and Phos supplement as needed pulm support Allopurinol continue Shi- Avoid nephrotoxics JOSE MIGUEL: Moderate right hydronephrosis. Subjective ROS Limited/Unobtainable: No Constitutional: Reports: malaise, weakness Allergies: Coded Allergies: TETRACYCLINE (Unverified Allergy, Unknown, 07/24/14) Objective Last 24 Hour Vital Signs Date Time Temp Pulse Resp B/P (MAP) Pulse Ox O2 Delivery O2 Flow Rate FiO2 03/12/17 17:52 131/60 03/12/17 16:00 76 03/12/17 16:00 96.6 76 22 131/60 98 Venturi Mask 55 03/12/17 14:22 96.6 03/12/17 12:10 96.6 03/12/17 12:00 96.6 74 22 100/46 97 Venturi Mask 55 03/12/17 12:00 100/46 03/12/17 12:00 74 03/12/17 09:00 82 113/57 03/12/17 08:33 82 113/57 03/12/17 08:00 97.0 82 20 113/57 95 Venturi Mask 55 03/12/17 08:00 76 03/12/17 06:36 93 Venturi Mask 14.0 50 03/12/17 06:36 Venturi Mask 14.0 50 03/12/17 05:52 100/46 03/12/17 04:00 82 03/12/17 04:00 97.2 80 20 100/46 Venturi Mask 55 03/12/17 00:37 124/57 03/12/17 00:00 71 03/12/17 00:00 97.3 75 20 124/57 Venturi Mask 55 03/11/17 21:00 76 92/44 03/11/17 20:22 83 03/11/17 20:00 97.7 77 21 97/41 Venturi Mask 55 03/11/17 19:28 95 Venturi Mask 14.0 50 03/11/17 19:28 Venturi Mask 14.0 50 03/11/17 18:34 130/59 Intake and Output 03/12/17 03/13/17 19:00 07:00 Intake Total 590 ml Output Total 1000 ml Balance -410 ml Intake Oral 590 ml Output Urine Total 1000 ml Laboratory Tests 03/12/17 10:40: White Blood Count 10.1, Red Blood Count 2.69L, Hemoglobin 8.7L, Hematocrit 27.2L , Mean Corpuscular Volume 101H, Mean Corpuscular Hemoglobin 32.3H, Mean Corpuscular Hemoglobin Concent 31.9L, Red Cell Distribution Width 12.3, Platelet Count 215, Mean Platelet Volume 8.0, Neutrophils (%) (Auto) 80.5H, Lymphocytes (%) (Auto) 14.6L, Monocytes (%) (Auto) 4.1, Eosinophils (%) (Auto) 0.5, Basophils (%) (Auto) 0.2, Sodium Level 135L, Potassium Level 3.2L, Chloride Level 99, Carbon Dioxide Level 34H, Anion Gap 2L, Blood Urea Nitrogen 32H, Creatinine 1.0, Estimat Glomerular Filtration Rate , Glucose Level 166H, Calcium Level 8.5, Phosphorus Level 2.7, Magnesium Level 1.8, Total Bilirubin 0.6, Aspartate Amino Transf (AST/SGOT) 17, Alanine Aminotransferase (ALT/SGPT) 20, Alkaline Phosphatase 56, C-Reactive Protein, Quantitative 14.3H, Pro-B-Type Natriuretic Peptide 428H, Total Protein 5.7L, Albumin 2.3L, Globulin 3.4, Albumin/Globulin Ratio 0.7L Height (Feet): 5 Height (Inches): 7.00 Weight (Pounds): 105 General Appearance: lethargic Cardiovascular: normal rate Respiratory/Chest: decreased breath sounds Abdomen: soft Objective no edema- no change in PE GENARO DUARTE Mar 12, 2017 18:16
--- NOTE | 2017-03-12 18:30 | General Progress Note ---
Assessment/Plan Status: stable Assessment/Plan anxiety d/o' encephalopathy -cont current meds -provided ro/st -cont ativan Subjective Date patient seen: Mar 11, 2017 Neurologic/Psychiatric: Reports: anxiety, depressed, emotional problems Allergies: Coded Allergies: TETRACYCLINE (Unverified Allergy, Unknown, 07/24/14) Subjective the pt was is improving Objective Last 24 Hour Vital Signs Date Time Temp Pulse Resp B/P (MAP) Pulse Ox O2 Delivery O2 Flow Rate FiO2 03/12/17 17:52 131/60 03/12/17 16:00 76 03/12/17 16:00 96.6 76 22 131/60 98 Venturi Mask 55 03/12/17 14:22 96.6 03/12/17 12:10 96.6 03/12/17 12:00 96.6 74 22 100/46 97 Venturi Mask 55 03/12/17 12:00 100/46 03/12/17 12:00 74 03/12/17 09:00 82 113/57 03/12/17 08:33 82 113/57 03/12/17 08:00 97.0 82 20 113/57 95 Venturi Mask 55 03/12/17 08:00 76 03/12/17 06:36 93 Venturi Mask 14.0 50 03/12/17 06:36 Venturi Mask 14.0 50 03/12/17 05:52 100/46 03/12/17 04:00 82 03/12/17 04:00 97.2 80 20 100/46 Venturi Mask 55 03/12/17 00:37 124/57 03/12/17 00:00 71 03/12/17 00:00 97.3 75 20 124/57 Venturi Mask 55 03/11/17 21:00 76 92/44 03/11/17 20:22 83 03/11/17 20:00 97.7 77 21 97/41 Venturi Mask 55 03/11/17 19:28 95 Venturi Mask 14.0 50 03/11/17 19:28 Venturi Mask 14.0 50 03/11/17 18:34 130/59 Intake and Output 03/12/17 03/13/17 19:00 07:00 Intake Total 590 ml Output Total 1000 ml Balance -410 ml Intake Oral 590 ml Output Urine Total 1000 ml Laboratory Tests 11/2/17 10:40: White Blood Count 10.1, Red Blood Count 2.69L, Hemoglobin 8.7L, Hematocrit 27.2L , Mean Corpuscular Volume 101H, Mean Corpuscular Hemoglobin 32.3H, Mean Corpuscular Hemoglobin Concent 31.9L, Red Cell Distribution Width 12.3, Platelet Count 215, Mean Platelet Volume 8.0, Neutrophils (%) (Auto) 80.5H, Lymphocytes (%) (Auto) 14.6L, Monocytes (%) (Auto) 4.1, Eosinophils (%) (Auto) 0.5, Basophils (%) (Auto) 0.2, Sodium Level 135L, Potassium Level 3.2L, Chloride Level 99, Carbon Dioxide Level 34H, Anion Gap 2L, Blood Urea Nitrogen 32H, Creatinine 1.0, Estimat Glomerular Filtration Rate , Glucose Level 166H, Calcium Level 8.5, Phosphorus Level 2.7, Magnesium Level 1.8, Total Bilirubin 0.6, Aspartate Amino Transf (AST/SGOT) 17, Alanine Aminotransferase (ALT/SGPT) 20, Alkaline Phosphatase 56, C-Reactive Protein, Quantitative 14.3H, Pro-B-Type Natriuretic Peptide 428H, Total Protein 5.7L, Albumin 2.3L, Globulin 3.4, Albumin/Globulin Ratio 0.7L Height (Feet): 5 Height (Inches): 7.00 Weight (Pounds): 105 General Appearance: no apparent distress, alert, overweight Neurologic: alert, responsive, depressed affect Wan Stern M.D. Mar 12, 2017 18:30
--- NOTE | 2017-03-12 18:31 | General Progress Note ---
Assessment/Plan Assessment/Plan anxiety d/o' encephalopathy -cont current meds -provided ro/st -cont ativan Subjective Date patient seen: Mar 12, 2017 Allergies: Coded Allergies: TETRACYCLINE (Unverified Allergy, Unknown, 07/24/14) Subjective the pt was is improving Objective Last 24 Hour Vital Signs Date Time Temp Pulse Resp B/P (MAP) Pulse Ox O2 Delivery O2 Flow Rate FiO2 03/12/17 17:52 131/60 03/12/17 16:00 76 03/12/17 16:00 96.6 76 22 131/60 98 Venturi Mask 55 03/12/17 14:22 96.6 03/12/17 12:10 96.6 03/12/17 12:00 96.6 74 22 100/46 97 Venturi Mask 55 03/12/17 12:00 100/46 03/12/17 12:00 74 03/12/17 09:00 82 113/57 03/12/17 08:33 82 113/57 03/12/17 08:00 97.0 82 20 113/57 95 Venturi Mask 55 03/12/17 08:00 76 03/12/17 06:36 93 Venturi Mask 14.0 50 03/12/17 06:36 Venturi Mask 14.0 50 03/12/17 05:52 100/46 03/12/17 04:00 82 03/12/17 04:00 97.2 80 20 100/46 Venturi Mask 55 03/12/17 00:37 124/57 03/12/17 00:00 71 03/12/17 00:00 97.3 75 20 124/57 Venturi Mask 55 03/11/17 21:00 76 92/44 03/11/17 20:22 83 03/11/17 20:00 97.7 77 21 97/41 Venturi Mask 55 03/11/17 19:28 95 Venturi Mask 14.0 50 03/11/17 19:28 Venturi Mask 14.0 50 03/11/17 18:34 130/59 Intake and Output 03/12/17 03/13/17 19:00 07:00 Intake Total 590 ml Output Total 1000 ml Balance -410 ml Intake Oral 590 ml Output Urine Total 1000 ml Laboratory Tests 03/12/17 10:40: White Blood Count 10.1, Red Blood Count 2.69L, Hemoglobin 8.7L, Hematocrit 27.2L , Mean Corpuscular Volume 101H, Mean Corpuscular Hemoglobin 32.3H, Mean Corpuscular Hemoglobin Concent 31.9L, Red Cell Distribution Width 12.3, Platelet Count 215, Mean Platelet Volume 8.0, Neutrophils (%) (Auto) 80.5H, Lymphocytes (%) (Auto) 14.6L, Monocytes (%) (Auto) 4.1, Eosinophils (%) (Auto) 0.5, Basophils (%) (Auto) 0.2, Sodium Level 135L, Potassium Level 3.2L, Chloride Level 99, Carbon Dioxide Level 34H, Anion Gap 2L, Blood Urea Nitrogen 32H, Creatinine 1.0, Estimat Glomerular Filtration Rate , Glucose Level 166H, Calcium Level 8.5, Phosphorus Level 2.7, Magnesium Level 1.8, Total Bilirubin 0.6, Aspartate Amino Transf (AST/SGOT) 17, Alanine Aminotransferase (ALT/SGPT) 20, Alkaline Phosphatase 56, C-Reactive Protein, Quantitative 14.3H, Pro-B-Type Natriuretic Peptide 428H, Total Protein 5.7L, Albumin 2.3L, Globulin 3.4, Albumin/Globulin Ratio 0.7L Height (Feet): 5 Height (Inches): 7.00 Weight (Pounds): 105 Wan Stern M.D. Mar 12, 2017 18:31
[2017-03-12 20:00] VITALS: BP 111/47
--- NOTE | 2017-03-12 20:36 | Cardiology Progress Note ---
Assessment/Plan Assessment/Plan 1. Respiratory failure. 2. Chronic obstructive pulmonary disease exacerbation. 3. Questionable pneumonia. 4. History of mitral regurgitation of significant degree. 5. History of subdural hematomas and intracranial hemorrhage. 6. History of breast cancer. 7. Anemia. 8. History of Clostridium difficile colitis. 9. History of anxiety. 10. Sinus tachycardia secondary to above. 11. Htn 12. CHF acute diastolic 13. l m bronchus occlusion with debris 14. lung collapase 15 Hypotension resolved 16. alkalosis resolved labs reviewed bp ok today tele sinus pro bnp not sig elevated hhn cpt noted desire for reintubation if needed Subjective Cardiovascular: Denies: chest pain Respiratory: Denies: shortness of breath, SOB with excertion Gastrointestinal/Abdominal: Denies: abdominal pain Genitourinary: Denies: burning Objective Last 24 Hour Vital Signs Date Time Temp Pulse Resp B/P (MAP) Pulse Ox O2 Delivery O2 Flow Rate FiO2 03/12/17 19:30 96.6 03/12/17 19:09 98 Venturi Mask 14.0 50 03/12/17 19:09 Venturi Mask 14.0 50 03/12/17 17:52 131/60 03/12/17 16:00 76 03/12/17 16:00 96.6 76 22 131/60 98 Venturi Mask 55 03/12/17 12:10 96.6 03/12/17 12:00 96.6 74 22 100/46 97 Venturi Mask 55 03/12/17 12:00 100/46 03/12/17 12:00 74 03/12/17 09:00 82 113/57 03/12/17 08:33 82 113/57 03/12/17 08:00 97.0 82 20 113/57 95 Venturi Mask 55 03/12/17 08:00 76 03/12/17 06:36 93 Venturi Mask 14.0 50 03/12/17 06:36 Venturi Mask 14.0 50 03/12/17 05:52 100/46 03/12/17 04:00 82 03/12/17 04:00 97.2 80 20 100/46 Venturi Mask 55 03/12/17 00:37 124/57 03/12/17 00:00 71 03/12/17 00:00 97.3 75 20 124/57 Venturi Mask 55 03/11/17 21:00 76 92/44 General Appearance: alert Neck: supple Cardiovascular: normal rate Respiratory/Chest: crackles/rales Abdomen: normal bowel sounds, non tender, soft Extremities: no swelling Intake and Output 03/12/17 03/13/17 19:00 07:00 Intake Total 590 ml Output Total 1000 ml Balance -410 ml Intake Oral 590 ml Output Urine Total 1000 ml Laboratory Tests Test 03/12/17 10:40 White Blood Count 10.1 K/UL (4.8-10.8) Red Blood Count 2.69 M/UL (4.20-5.40) L Hemoglobin 8.7 G/DL (12.0-16.0) L Hematocrit 27.2 % (37.0-47.0) L Mean Corpuscular Volume 101 FL (80-99) H Mean Corpuscular Hemoglobin 32.3 PG (27.0-31.0) H Mean Corpuscular Hemoglobin Concent 31.9 G/DL (32.0-36.0) L Red Cell Distribution Width 12.3 % (11.6-14.8) Platelet Count 215 K/UL (150-450) Mean Platelet Volume 8.0 FL (6.5-10.1) Neutrophils (%) (Auto) 80.5 % (45.0-75.0) H Lymphocytes (%) (Auto) 14.6 % (20.0-45.0) L Monocytes (%) (Auto) 4.1 % (1.0-10.0) Eosinophils (%) (Auto) 0.5 % (0.0-3.0) Basophils (%) (Auto) 0.2 % (0.0-2.0) Sodium Level 135 MMOL/L (136-145) L Potassium Level 3.2 MMOL/L (3.5-5.1) L Chloride Level 99 MMOL/L (98-107) Carbon Dioxide Level 34 MMOL/L (21-32) H Anion Gap 2 mmol/L (5-15) L Blood Urea Nitrogen 32 mg/dL (7-18) H Creatinine 1.0 MG/DL (0.55-1.30) Estimat Glomerular Filtration Rate mL/min (>60) Glucose Level 166 MG/DL (74-106) H Calcium Level 8.5 MG/DL (8.5-10.1) Phosphorus Level 2.7 MG/DL (2.5-4.9) Magnesium Level 1.8 MG/DL (1.8-2.4) Total Bilirubin 0.6 MG/DL (0.2-1.0) Aspartate Amino Transf (AST/SGOT) 17 U/L (15-37) Alanine Aminotransferase (ALT/SGPT) 20 U/L (12-78) Alkaline Phosphatase 56 U/L (46-116) C-Reactive Protein, Quantitative 14.3 mg/dL (0.00-0.90) H Pro-B-Type Natriuretic Peptide 428 pg/mL (0-125) H Total Protein 5.7 G/DL (6.4-8.2) L Albumin 2.3 G/DL (3.4-5.0) L Globulin 3.4 g/dL Albumin/Globulin Ratio 0.7 (1.0-2.7) L JEFFERSON ROMEO Mar 12, 2017 20:36
[2017-03-13] VITALS: BP 104/50
[2017-03-13] MEDS: Morphine Sulfate 4mg/ml Inj IVP PRN ×4 (02:35→20:55)
[2017-03-13 03:49] LABS: BASOPHILS % (AUTO) 0.2 % (0.0-2.0); EOSINOPHILS % (AUTO) 1.4 % (0.0-3.0); HEMATOCRIT 26.7 % (37.0-47.0); HEMOGLOBIN 8.5 G/DL (12.0-16.0); LYMPHOCYTES % (AUTO) 23.2 % (20.0-45.0); MEAN CORPUSCULAR VOLUME 99 FL (80-99); MONOCYTES % (AUTO) 6.4 % (1.0-10.0); NEUTROPHILS % (AUTO) 68.8 % (45.0-75.0); PLATELET COUNT 210 K/UL (150-450); RED BLOOD COUNT 2.69 M/UL (4.20-5.40); RED CELL DISTRIBUTION WIDTH 12.1 % (11.6-14.8); WHITE BLOOD COUNT 9.5 K/UL (4.8-10.8)
[2017-03-13 03:58] LABS: ALANINE AMINOTRANSFERASE 23 U/L (12-78); ALBUMIN 2.5 G/DL (3.4-5.0); ALBUMIN/GLOBULIN RATIO 0.7 (1.0-2.7); ALKALINE PHOSPHATASE 59 U/L (46-116); ANION GAP 5 mmol/L (5-15); ASPARTATE AMINO TRANSFERASE 19 U/L (15-37); BILIRUBIN,TOTAL 0.7 MG/DL (0.2-1.0); BLOOD UREA NITROGEN 24 mg/dL (7-18); CALCIUM 8.7 MG/DL (8.5-10.1); CARBON DIOXIDE 31 MMOL/L (21-32); CHLORIDE 99 MMOL/L (98-107); CREATININE 0.7 MG/DL (0.55-1.30); SODIUM 135 MMOL/L (136-145)
[2017-03-13 04:00] VITALS: BP 132/63
[2017-03-13] MEDS: Metoclopramide 10mg/2ml Inj IVP SCH ×3 (05:48→21:43)
[2017-03-13] MEDS: HydrALAZINE 10mg Tab NG SCH ×5 (05:48→23:43)
[2017-03-13 08:03] VITALS: BP 142/75
[2017-03-13] MEDS: Carvedilol 25mg Tab ORAL SCH ×3 (09:00→20:53)
[2017-03-13] MEDS: Lyrica 75mg cap ORAL SCH ×3 (09:00→18:47)
[2017-03-13] MEDS: Aspirin EC 81mg tab ORAL SCH ×2 (09:00→09:16)
[2017-03-13] MEDS: Allopurinol 100mg Tab ORAL SCH ×2 (09:00→09:06)
[2017-03-13] MEDS: Pantoprazole Inj IV SCH (09:09)
--- NOTE | 2017-03-13 10:39 | Diagnostic Imaging Report ---
Indication: DYSPNEA Technique: One view of the chest Comparison: 03/11/2017 Findings: Left pleural effusion is again demonstrated, may be slightly decreased. There is decreased retrocardiac consolidation. Right lung and pleural space remain clear. Impression: Improved but persistent left basilar pleural and parenchymal disease, over 2 days
--- NOTE | 2017-03-13 11:01 | General Progress Note ---
Assessment/Plan Status: stable Assessment/Plan Status: Acute renal failure- etiology? 1900 cc urine out after insertion of shi--JOSE MIGUEL: Moderate right hydronephrosis. Acute on Chronic respiratory failure- extubated now HTN High Cholestrol Pneumonia COPD , exac. Diastolic CHF, Mod MR h/o C dif colitis h/o Breast Ca Anemia Pulm HTN Moderate Plan: now extubated- post extubation care adjust BP meds K and Phos supplement as needed pulm support Allopurinol continue Shi- Avoid nephrotoxics JOSE MIGUEL: Moderate right hydronephrosis. ? Dc planning ? Subjective ROS Limited/Unobtainable: No Constitutional: Reports: malaise, weakness Allergies: Coded Allergies: TETRACYCLINE (Unverified Allergy, Unknown, 07/24/14) Objective Last 24 Hour Vital Signs Date Time Temp Pulse Resp B/P (MAP) Pulse Ox O2 Delivery O2 Flow Rate FiO2 03/13/17 09:05 84 142/75 03/13/17 09:05 84 142/75 03/13/17 08:03 99.0 84 17 142/75 97 Nasal Cannula 03/13/17 07:13 Nasal Cannula 3.0 32 03/13/17 07:13 98 Nasal Cannula 3.0 32 03/13/17 05:48 149/66 03/13/17 04:00 86 03/13/17 04:00 98.0 83 20 132/63 98 Venturi Mask 55 03/13/17 03:05 97.5 03/13/17 00:00 97.5 81 20 104/50 98 Venturi Mask 55 03/13/17 00:00 84 03/13/17 00:00 104/50 03/12/17 21:00 82 110/47 03/12/17 20:00 97.0 80 20 111/47 98 Venturi Mask 55 03/12/17 20:00 80 03/12/17 19:30 96.6 03/12/17 19:09 98 Venturi Mask 14.0 50 03/12/17 19:09 Venturi Mask 14.0 50 03/12/17 17:52 131/60 03/12/17 16:00 76 03/12/17 16:00 96.6 76 22 131/60 98 Venturi Mask 55 03/12/17 12:00 96.6 74 22 100/46 97 Venturi Mask 55 03/12/17 12:00 100/46 03/12/17 12:00 74 Laboratory Tests 03/13/17 02:35: White Blood Count 9.5, Red Blood Count 2.69L, Hemoglobin 8.5L, Hematocrit 26.7L , Mean Corpuscular Volume 99, Mean Corpuscular Hemoglobin 31.5H, Mean Corpuscular Hemoglobin Concent 31.7L, Red Cell Distribution Width 12.1, Platelet Count 210, Mean Platelet Volume 8.2, Neutrophils (%) (Auto) 68.8, Lymphocytes (%) (Auto) 23.2, Monocytes (%) (Auto) 6.4, Eosinophils (%) (Auto) 1.4, Basophils (%) (Auto) 0.2, Sodium Level 135L, Potassium Level 4.0, Chloride Level 99, Carbon Dioxide Level 31, Anion Gap 5, Blood Urea Nitrogen 24H, Creatinine 0.7, Estimat Glomerular Filtration Rate , Glucose Level 106, Calcium Level 8.7, Total Bilirubin 0.7, Aspartate Amino Transf (AST/SGOT) 19, Alanine Aminotransferase (ALT/SGPT) 23, Alkaline Phosphatase 59, Pro-B-Type Natriuretic Peptide 327H, Total Protein 6.0L, Albumin 2.5L, Globulin 3.5, Albumin/Globulin Ratio 0.7L Height (Feet): 5 Height (Inches): 7.00 Weight (Pounds): 104 General Appearance: no apparent distress, lethargic Cardiovascular: normal rate Respiratory/Chest: decreased breath sounds Abdomen: soft Objective no edema- no change in PE GENARO DUARTE Mar 13, 2017 11:01
[2017-03-13 12:00] VITALS: BP 140/74
--- NOTE | 2017-03-13 12:04 | Infectious Diseases Prog Note ---
Assessment/Plan Assessment/Plan Assessment/Plan Abx: IV Vanco 02/15-03/01 Cefepime 02/15-02/18 Meropenem 02/18-03/03 Assesment: Low grade, SP Ucx >100k yeast (colonizer) No evid of pneumonia at this time - SP bronch 02/26 (collected 02/26, however received on the lab 03/03??): BAL cx NTD -CXR 03/03: Stable bilateral interstitial and alveolar opacities, probable small left pleural effusion, elevation left hemidiaphragm - CT Chest 02/24: Near-complete occlusion of the left mainstem bronchus and proximal lobar bronchi, probably by debris. Extensive resultant atelectasis and consolidation of nearly the entire left lung. Less extensive consolidation within the right lung, nonspecific as regards etiology, likely secondary to pneumonia or edema Crypt Ag serum neg; -sp cx 03/06 <1+ Proteus Mirabilis (S Ancef/CTX, bactrim; R Cipro/levo); s/p recent PNA tx CXR 03/05: There is suggestion of slightly increased pleural fluid on the left. Hazy opacity in the right lung is stable Leukocytosis, mild - recurrent, (s/p steroids 03/07) Swallow eval : Positive for aspiration and penetration of thin liquid barium Acute hypoxic resp failure, SP Intubated 02/26; extubated 03/07 -venous duplex 02/16 no DVT L pleural effusion - improved COPD on home O2 Hx of Cdiff DM2 Chronic abd pain hx of MRSA bacteremia 07/2015 TCA allergy Full Code fibromyalgia, HTN, HLD, R breast cancer,Tobacco abuse (stopped 4 years ago), Anxiety, AOCD Plan: -Continue to monitor off abx; if febrile, increased leukocytosis, oxygen requirements or worsenign CXR- start IV Ceftriaxone for Proteus on sputum -s/p 14d IV Meropenem 03/03 -s/p 14 d IV Vancomycin 03/01 -s/p 6d prophylactic PO vanco 02/21 -s/p 4 d Cefepime 02/18 -f/u Cocci ab -Monitor CBC/BMP, temperatures -Aspiration precautions - vent support, wean as tolerated Subjective Allergies: Coded Allergies: TETRACYCLINE (Unverified Allergy, Unknown, 07/24/14) Subjective comfortable Objective Vital Signs Last 24 Hour Vital Signs Date Time Temp Pulse Resp B/P (MAP) Pulse Ox O2 Delivery O2 Flow Rate FiO2 03/13/17 11:55 142/75 03/13/17 09:05 84 142/75 03/13/17 09:05 84 142/75 03/13/17 08:03 99.0 84 17 142/75 97 Nasal Cannula 03/13/17 08:00 82 03/13/17 07:13 Nasal Cannula 3.0 32 03/13/17 07:13 98 Nasal Cannula 3.0 32 03/13/17 05:48 149/66 03/13/17 04:00 86 03/13/17 04:00 98.0 83 20 132/63 98 Venturi Mask 55 03/13/17 03:05 97.5 03/13/17 00:00 97.5 81 20 104/50 98 Venturi Mask 55 03/13/17 00:00 84 03/13/17 00:00 104/50 03/12/17 21:00 82 110/47 03/12/17 20:00 97.0 80 20 111/47 98 Venturi Mask 55 03/12/17 20:00 80 03/12/17 19:30 96.6 03/12/17 19:09 98 Venturi Mask 14.0 50 03/12/17 19:09 Venturi Mask 14.0 50 03/12/17 17:52 131/60 03/12/17 16:00 76 03/12/17 16:00 96.6 76 22 131/60 98 Venturi Mask 55 Height (Feet): 5 Height (Inches): 7.00 Weight (Pounds): 104 HEENT: atraumatic Respiratory/Chest: normal breath sounds Cardiovascular: normal rate Abdomen: no organomegaly Laboratory Tests Test 03/13/17 02:35 White Blood Count 9.5 K/UL (4.8-10.8) Red Blood Count 2.69 M/UL (4.20-5.40) L Hemoglobin 8.5 G/DL (12.0-16.0) L Hematocrit 26.7 % (37.0-47.0) L Mean Corpuscular Volume 99 FL (80-99) Mean Corpuscular Hemoglobin 31.5 PG (27.0-31.0) H Mean Corpuscular Hemoglobin Concent 31.7 G/DL (32.0-36.0) L Red Cell Distribution Width 12.1 % (11.6-14.8) Platelet Count 210 K/UL (150-450) Mean Platelet Volume 8.2 FL (6.5-10.1) Neutrophils (%) (Auto) 68.8 % (45.0-75.0) Lymphocytes (%) (Auto) 23.2 % (20.0-45.0) Monocytes (%) (Auto) 6.4 % (1.0-10.0) Eosinophils (%) (Auto) 1.4 % (0.0-3.0) Basophils (%) (Auto) 0.2 % (0.0-2.0) Sodium Level 135 MMOL/L (136-145) L Potassium Level 4.0 MMOL/L (3.5-5.1) Chloride Level 99 MMOL/L (98-107) Carbon Dioxide Level 31 MMOL/L (21-32) Anion Gap 5 mmol/L (5-15) Blood Urea Nitrogen 24 mg/dL (7-18) H Creatinine 0.7 MG/DL (0.55-1.30) Estimat Glomerular Filtration Rate mL/min (>60) Glucose Level 106 MG/DL (74-106) Calcium Level 8.7 MG/DL (8.5-10.1) Total Bilirubin 0.7 MG/DL (0.2-1.0) Aspartate Amino Transf (AST/SGOT) 19 U/L (15-37) Alanine Aminotransferase (ALT/SGPT) 23 U/L (12-78) Alkaline Phosphatase 59 U/L (46-116) Pro-B-Type Natriuretic Peptide 327 pg/mL (0-125) H Total Protein 6.0 G/DL (6.4-8.2) L Albumin 2.5 G/DL (3.4-5.0) L Globulin 3.5 g/dL Albumin/Globulin Ratio 0.7 (1.0-2.7) L Current Medications Medications (Trade) Dose Ordered Sig/Wilner Route PRN Reason Start Time Stop Time Status Last Admin Dose Admin Acetaminophen (Tylenol) 650 mg Q4H PRN ORAL Fever/Headache/Mild Pain 03/08/17 20:00 04/07/17 23:59 Allopurinol (Zyloprim) 100 mg DAILY ORAL 03/09/17 09:00 04/07/17 23:59 03/13/17 09:06 Amlodipine Besylate (Norvasc) 10 mg DAILY ORAL 03/04/17 12:00 04/03/17 11:59 03/13/17 09:05 Aspirin (Ecotrin) 81 mg DAILY ORAL 03/09/17 09:00 03/29/17 23:59 03/13/17 09:16 Bisacodyl (Dulcolax) 10 mg DAILYPRN PRN RECTAL Constipation Third Line Agent 03/08/17 18:15 04/07/17 23:59 Carvedilol (Coreg) 25 mg Q12HR ORAL 03/05/17 21:00 04/04/17 20:59 03/13/17 09:05 Dextrose (Dextrose 50%) STAT PRN IV Hypoglycemia 02/25/17 15:15 03/17/17 15:14 Escitalopram Oxalate (Lexapro) 10 mg DAILY ORAL 02/26/17 09:00 03/20/17 08:59 03/13/17 09:05 Haloperidol Lactate (Haldol) 2 mg Q4H PRN IM Agitation 02/25/17 15:15 03/27/17 15:14 03/08/17 15:58 Hydralazine HCl (Apresoline) 10 mg Q6HR NG 03/05/17 12:00 04/04/17 11:59 03/13/17 05:48 Hydralazine HCl (Apresoline) 25 mg Q4H PRN ORAL SBP > 160mmHg 02/25/17 15:15 03/27/17 15:14 03/04/17 08:30 Lidocaine (Xylocaine 1% MPF 5ml) 10 ml Q4H PRN HHN cough 02/25/17 15:15 03/19/17 15:14 Metoclopramide HCl (Reglan) 5 mg Q8HR IVP 03/04/17 22:00 04/03/17 21:59 03/13/17 05:48 Morphine Sulfate (Morphine Sulfate) 2 mg Q4H PRN IVP Pain 4-10 03/08/17 09:15 03/15/17 09:14 03/13/17 09:10 Ondansetron HCl (Zofran) 4 mg Q6H PRN IVP Nausea & Vomiting 02/25/17 15:15 03/17/17 15:14 03/13/17 09:09 Pantoprazole (Protonix) 40 mg DAILY IV 02/27/17 09:00 03/29/17 08:59 03/13/17 09:09 Polyethylene Glycol (Miralax) 17 gm DAILYPRN PRN ORAL Constipation First line agent 02/25/17 15:15 03/17/17 15:14 Pravastatin Sodium (Pravachol) 20 mg BEDTIME ORAL 02/25/17 21:00 03/18/17 20:59 03/12/17 21:45 Pregabalin (Lyrica) 150 mg THREE TIMES A DAY ORAL 02/25/17 18:00 03/18/17 12:59 03/13/17 09:08 Promethazine HCl/ Codeine (Phenergan with Codeine) 5 ml Q4H PRN ORAL UNRELIEVED COUGH 02/25/17 15:15 03/18/17 15:14 Ranitidine HCl (Zantac) 150 mg QPM ORAL 02/25/17 16:30 03/27/17 16:29 03/12/17 17:02 ORLANDO RODRIGUEZ M.D. Mar 13, 2017 12:04
--- NOTE | 2017-03-13 13:30 | Pulmonology Progress Note ---
Assessment/Plan Problems: (1) Acute and chronic respiratory failure ([id number]) (2) COPD exacerbation (3) Pneumonia (4) Fibromyalgia (5) History of breast cancer (6) Limited mobility Assessment/Plan stabke now on 2 liters NC more aggressive Chest PT incentive spirometry advance diet as tolerated check cxr periodically I talked about code status with , She stated she wants to live and in case she is in respiratory failure, she wants reintubation again. Subjective ROS Limited/Unobtainable: No Constitutional: Reports: no symptoms HEENT: Repors: no symptoms Allergies: Coded Allergies: TETRACYCLINE (Unverified Allergy, Unknown, 07/24/14) Objective Last 24 Hour Vital Signs Date Time Temp Pulse Resp B/P (MAP) Pulse Ox O2 Delivery O2 Flow Rate FiO2 03/13/17 11:55 142/75 03/13/17 09:05 84 142/75 03/13/17 09:00 84 142/75 03/13/17 08:03 99.0 84 17 142/75 97 Nasal Cannula 03/13/17 08:00 82 03/13/17 07:13 Nasal Cannula 3.0 32 03/13/17 07:13 98 Nasal Cannula 3.0 32 03/13/17 05:48 149/66 03/13/17 04:00 86 03/13/17 04:00 98.0 83 20 132/63 98 Venturi Mask 55 03/13/17 03:05 97.5 03/13/17 00:00 97.5 81 20 104/50 98 Venturi Mask 55 03/13/17 00:00 84 03/13/17 00:00 104/50 03/12/17 21:00 82 110/47 03/12/17 20:00 97.0 80 20 111/47 98 Venturi Mask 55 03/12/17 20:00 80 03/12/17 19:30 96.6 03/12/17 19:09 98 Venturi Mask 14.0 50 03/12/17 19:09 Venturi Mask 14.0 50 03/12/17 17:52 131/60 03/12/17 16:00 76 03/12/17 16:00 96.6 76 22 131/60 98 Venturi Mask 55 General Appearance: WD/WN HEENT: normocephalic, atraumatic Respiratory/Chest: chest wall non-tender, lungs clear Breasts: no masses Cardiovascular: normal peripheral pulses Abdomen: normal bowel sounds, soft, non tender 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, no motor/sensory deficits Laboratory Tests 03/13/17 02:35: White Blood Count 9.5, Red Blood Count 2.69L, Hemoglobin 8.5L, Hematocrit 26.7L , Mean Corpuscular Volume 99, Mean Corpuscular Hemoglobin 31.5H, Mean Corpuscular Hemoglobin Concent 31.7L, Red Cell Distribution Width 12.1, Platelet Count 210, Mean Platelet Volume 8.2, Neutrophils (%) (Auto) 68.8, Lymphocytes (%) (Auto) 23.2, Monocytes (%) (Auto) 6.4, Eosinophils (%) (Auto) 1.4, Basophils (%) (Auto) 0.2, Sodium Level 135L, Potassium Level 4.0, Chloride Level 99, Carbon Dioxide Level 31, Anion Gap 5, Blood Urea Nitrogen 24H, Creatinine 0.7, Estimat Glomerular Filtration Rate , Glucose Level 106, Calcium Level 8.7, Total Bilirubin 0.7, Aspartate Amino Transf (AST/SGOT) 19, Alanine Aminotransferase (ALT/SGPT) 23, Alkaline Phosphatase 59, Pro-B-Type Natriuretic Peptide 327H, Total Protein 6.0L, Albumin 2.5L, Globulin 3.5, Albumin/Globulin Ratio 0.7L Current Medications Medications (Trade) Dose Ordered Sig/Wilner Route PRN Reason Start Time Stop Time Status Last Admin Dose Admin Acetaminophen (Tylenol) 650 mg Q4H PRN ORAL Fever/Headache/Mild Pain 03/08/17 20:00 04/07/17 23:59 Allopurinol (Zyloprim) 100 mg DAILY ORAL 03/09/17 09:00 04/07/17 23:59 03/12/17 08:33 Amlodipine Besylate (Norvasc) 10 mg DAILY ORAL 03/04/17 12:00 04/03/17 11:59 03/13/17 09:05 Aspirin (Ecotrin) 81 mg DAILY ORAL 03/09/17 09:00 03/29/17 23:59 03/12/17 08:33 Bisacodyl (Dulcolax) 10 mg DAILYPRN PRN RECTAL Constipation Third Line Agent 03/08/17 18:15 04/07/17 23:59 Carvedilol (Coreg) 25 mg Q12HR ORAL 03/05/17 21:00 04/04/17 20:59 03/12/17 08:33 Dextrose (Dextrose 50%) STAT PRN IV Hypoglycemia 02/25/17 15:15 03/17/17 15:14 Escitalopram Oxalate (Lexapro) 10 mg DAILY ORAL 02/26/17 09:00 03/20/17 08:59 03/12/17 08:33 Haloperidol Lactate (Haldol) 2 mg Q4H PRN IM Agitation 02/25/17 15:15 03/27/17 15:14 03/08/17 15:58 Hydralazine HCl (Apresoline) 10 mg Q6HR NG 03/05/17 12:00 04/04/17 11:59 03/13/17 05:48 Hydralazine HCl (Apresoline) 25 mg Q4H PRN ORAL SBP > 160mmHg 02/25/17 15:15 03/27/17 15:14 03/04/17 08:30 Lidocaine (Xylocaine 1% MPF 5ml) 10 ml Q4H PRN HHN cough 02/25/17 15:15 03/19/17 15:14 Metoclopramide HCl (Reglan) 5 mg Q8HR IVP 03/04/17 22:00 04/03/17 21:59 03/13/17 05:48 Morphine Sulfate (Morphine Sulfate) 2 mg Q4H PRN IVP Pain 4-10 03/08/17 09:15 03/15/17 09:14 03/13/17 09:10 Ondansetron HCl (Zofran) 4 mg Q6H PRN IVP Nausea & Vomiting 02/25/17 15:15 03/17/17 15:14 03/13/17 09:09 Pantoprazole (Protonix) 40 mg DAILY IV 02/27/17 09:00 03/29/17 08:59 03/13/17 09:09 Polyethylene Glycol (Miralax) 17 gm DAILYPRN PRN ORAL Constipation First line agent 02/25/17 15:15 03/17/17 15:14 Pravastatin Sodium (Pravachol) 20 mg BEDTIME ORAL 02/25/17 21:00 03/18/17 20:59 03/12/17 21:45 Pregabalin (Lyrica) 150 mg THREE TIMES A DAY ORAL 02/25/17 18:00 03/18/17 12:59 03/13/17 09:08 Promethazine HCl/ Codeine (Phenergan with Codeine) 5 ml Q4H PRN ORAL UNRELIEVED COUGH 02/25/17 15:15 03/18/17 15:14 Ranitidine HCl (Zantac) 150 mg QPM ORAL 02/25/17 16:30 03/27/17 16:29 03/12/17 17:02 TWIN FONTANEZ Mar 13, 2017 13:30
[2017-03-13] MEDS ORDERED: NS Irrig 1000ml ONE (15:25)
[2017-03-13] MEDS ORDERED: Tubing IV Secondary IV ONE (15:25)
--- NOTE | 2017-03-13 15:27 | Internal Med Progress Note ---
Subjective Physician Name Jun Cedillo Attending Physician Jun Cedillo MD Current Medications Medications (Trade) Dose Ordered Sig/Wilner Route PRN Reason Start Time Stop Time Status Last Admin Dose Admin Acetaminophen (Tylenol) 650 mg Q4H PRN ORAL Fever/Headache/Mild Pain 03/08/17 20:00 04/07/17 23:59 Allopurinol (Zyloprim) 100 mg DAILY ORAL 03/09/17 09:00 04/07/17 23:59 03/12/17 08:33 Amlodipine Besylate (Norvasc) 10 mg DAILY ORAL 03/04/17 12:00 04/03/17 11:59 03/11/17 09:43 Aspirin (Ecotrin) 81 mg DAILY ORAL 03/09/17 09:00 03/29/17 23:59 03/12/17 08:33 Bisacodyl (Dulcolax) 10 mg DAILYPRN PRN RECTAL Constipation Third Line Agent 03/08/17 18:15 04/07/17 23:59 Carvedilol (Coreg) 25 mg Q12HR ORAL 03/05/17 21:00 04/04/17 20:59 03/12/17 08:33 Dextrose (Dextrose 50%) STAT PRN IV Hypoglycemia 02/25/17 15:15 03/17/17 15:14 Escitalopram Oxalate (Lexapro) 10 mg DAILY ORAL 02/26/17 09:00 03/20/17 08:59 03/12/17 08:33 Haloperidol Lactate (Haldol) 2 mg Q4H PRN IM Agitation 02/25/17 15:15 03/27/17 15:14 03/08/17 15:58 Hydralazine HCl (Apresoline) 10 mg Q6HR NG 03/05/17 12:00 04/04/17 11:59 03/13/17 05:48 Hydralazine HCl (Apresoline) 25 mg Q4H PRN ORAL SBP > 160mmHg 02/25/17 15:15 03/27/17 15:14 03/04/17 08:30 Lidocaine (Xylocaine 1% MPF 5ml) 10 ml Q4H PRN HHN cough 02/25/17 15:15 03/19/17 15:14 Metoclopramide HCl (Reglan) 5 mg Q8HR IVP 03/04/17 22:00 04/03/17 21:59 03/13/17 14:22 Morphine Sulfate (Morphine Sulfate) 2 mg Q4H PRN IVP Pain 4-10 03/08/17 09:15 03/15/17 09:14 03/13/17 15:01 Ondansetron HCl (Zofran) 4 mg Q6H PRN IVP Nausea & Vomiting 02/25/17 15:15 03/17/17 15:14 03/13/17 09:09 Pantoprazole (Protonix) 40 mg DAILY IV 02/27/17 09:00 03/29/17 08:59 03/13/17 09:09 Polyethylene Glycol (Miralax) 17 gm DAILYPRN PRN ORAL Constipation First line agent 02/25/17 15:15 03/17/17 15:14 Pravastatin Sodium (Pravachol) 20 mg BEDTIME ORAL 02/25/17 21:00 03/18/17 20:59 03/12/17 21:45 Pregabalin (Lyrica) 150 mg THREE TIMES A DAY ORAL 02/25/17 18:00 03/18/17 12:59 03/13/17 09:08 Promethazine HCl/ Codeine (Phenergan with Codeine) 5 ml Q4H PRN ORAL UNRELIEVED COUGH 02/25/17 15:15 03/18/17 15:14 Ranitidine HCl (Zantac) 150 mg QPM ORAL 02/25/17 16:30 03/27/17 16:29 03/12/17 17:02 Allergies: Coded Allergies: TETRACYCLINE (Unverified Allergy, Unknown, 07/24/14) Subjective awake, alert, responsive, watching TV Objective Last Vital Signs Date Time Temp Pulse Resp B/P (MAP) Pulse Ox O2 Delivery O2 Flow Rate FiO2 03/13/17 12:00 80 03/13/17 12:00 98.6 20 140/74 99 Nasal Cannula 03/13/17 07:13 3.0 32 Laboratory Tests Test 03/13/17 02:35 White Blood Count 9.5 K/UL (4.8-10.8) Red Blood Count 2.69 M/UL (4.20-5.40) L Hemoglobin 8.5 G/DL (12.0-16.0) L Hematocrit 26.7 % (37.0-47.0) L Mean Corpuscular Volume 99 FL (80-99) Mean Corpuscular Hemoglobin 31.5 PG (27.0-31.0) H Mean Corpuscular Hemoglobin Concent 31.7 G/DL (32.0-36.0) L Red Cell Distribution Width 12.1 % (11.6-14.8) Platelet Count 210 K/UL (150-450) Mean Platelet Volume 8.2 FL (6.5-10.1) Neutrophils (%) (Auto) 68.8 % (45.0-75.0) Lymphocytes (%) (Auto) 23.2 % (20.0-45.0) Monocytes (%) (Auto) 6.4 % (1.0-10.0) Eosinophils (%) (Auto) 1.4 % (0.0-3.0) Basophils (%) (Auto) 0.2 % (0.0-2.0) Sodium Level 135 MMOL/L (136-145) L Potassium Level 4.0 MMOL/L (3.5-5.1) Chloride Level 99 MMOL/L (98-107) Carbon Dioxide Level 31 MMOL/L (21-32) Anion Gap 5 mmol/L (5-15) Blood Urea Nitrogen 24 mg/dL (7-18) H Creatinine 0.7 MG/DL (0.55-1.30) Estimat Glomerular Filtration Rate mL/min (>60) Glucose Level 106 MG/DL (74-106) Calcium Level 8.7 MG/DL (8.5-10.1) Total Bilirubin 0.7 MG/DL (0.2-1.0) Aspartate Amino Transf (AST/SGOT) 19 U/L (15-37) Alanine Aminotransferase (ALT/SGPT) 23 U/L (12-78) Alkaline Phosphatase 59 U/L (46-116) Pro-B-Type Natriuretic Peptide 327 pg/mL (0-125) H Total Protein 6.0 G/DL (6.4-8.2) L Albumin 2.5 G/DL (3.4-5.0) L Globulin 3.5 g/dL Albumin/Globulin Ratio 0.7 (1.0-2.7) L Objective General: awake and responsive, NAD HEENT: NCAT, sclera anicteric, PERRL, EOMI. Neck: Supple, no significant jugular venous distention, Lungs: decrease air on bases, no Wheeze, decrease chest congestion. Heart: Regular rate and rhythm, normal S1/S2, no murmur Abdomen: soft, nontender, nondistended. Morbid obesity. Extremities: No Cyanosis , clubbing or edema. Neuro: A&O x 3, Able to move all extremities Assessment/Plan Assessment/Plan 1. Acute on chronic hypoxemic Respiratory failure --> Intubated 02/26/2017 --> extubated. 2. Chronic obstructive pulmonary disease exacerbation. 3. Questionable pneumonia. 4. History of mitral regurgitation of significant degree. 5. History of subdural hematomas and intracranial hemorrhage. 6. History of breast cancer. 7. Anemia. 8. History of Clostridium difficile colitis. 9. History of anxiety. 10. Sinus tachycardia secondary to above. 11. HTN 12. Acute on chronic CHF with diastolic dysfunction. 13. PNA, mucous plugging. 14. Left pleural effusion Plan: Neb Tx Abx: off monitor Labs and cultures Discuss with Dr. Hernandez On Lasix discuss with sister at bedside regarding SNF Vs. [place] placement, Refused. Jun Cedillo MD Mar 13, 2017 15:27
[2017-03-13 16:03] VITALS: BP 137/65
--- NOTE | 2017-03-13 19:01 | Cardiology Progress Note ---
Assessment/Plan Assessment/Plan 1. Respiratory failure. 2. Chronic obstructive pulmonary disease exacerbation. 3. Questionable pneumonia. 4. History of mitral regurgitation of significant degree. 5. History of subdural hematomas and intracranial hemorrhage. 6. History of breast cancer. 7. Anemia. 8. History of Clostridium difficile colitis. 9. History of anxiety. 10. Sinus tachycardia secondary to above. 11. Htn 12. CHF acute diastolic 13. l m bronchus occlusion with debris 14. lung collapase 15 Hypotension resolved 16. alkalosis resolved labs reviewed bp ok today low grade fever tele sinus hhn cpt snf tranfer plans noted Subjective ROS Limited/Unobtainable: Yes Objective Last 24 Hour Vital Signs Date Time Temp Pulse Resp B/P (MAP) Pulse Ox O2 Delivery O2 Flow Rate FiO2 03/13/17 18:46 137/65 03/13/17 16:03 99.3 84 19 137/65 98 Nasal Cannula 3.0 03/13/17 12:00 80 03/13/17 12:00 98.6 80 20 140/74 99 Nasal Cannula 03/13/17 11:55 142/75 03/13/17 09:00 84 142/75 03/13/17 09:00 80 140/74 03/13/17 09:00 84 142/75 03/13/17 08:03 99.0 84 17 142/75 97 Nasal Cannula 03/13/17 08:00 82 03/13/17 07:13 Nasal Cannula 3.0 32 03/13/17 07:13 98 Nasal Cannula 3.0 32 03/13/17 05:48 149/66 03/13/17 04:00 86 03/13/17 04:00 98.0 83 20 132/63 98 Venturi Mask 55 03/13/17 03:05 97.5 03/13/17 00:00 97.5 81 20 104/50 98 Venturi Mask 55 03/13/17 00:00 84 03/13/17 00:00 104/50 03/12/17 21:00 82 110/47 03/12/17 20:00 97.0 80 20 111/47 98 Venturi Mask 55 03/12/17 20:00 80 03/12/17 19:30 96.6 03/12/17 19:09 98 Venturi Mask 14.0 50 03/12/17 19:09 Venturi Mask 14.0 50 General Appearance: alert Intake and Output 03/13/17 03/14/17 19:00 07:00 Intake Total 240 ml Output Total 1000 ml Balance -760 ml Intake Oral 240 ml Output Urine Total 1000 ml Laboratory Tests Test 03/13/17 02:35 White Blood Count 9.5 K/UL (4.8-10.8) Red Blood Count 2.69 M/UL (4.20-5.40) L Hemoglobin 8.5 G/DL (12.0-16.0) L Hematocrit 26.7 % (37.0-47.0) L Mean Corpuscular Volume 99 FL (80-99) Mean Corpuscular Hemoglobin 31.5 PG (27.0-31.0) H Mean Corpuscular Hemoglobin Concent 31.7 G/DL (32.0-36.0) L Red Cell Distribution Width 12.1 % (11.6-14.8) Platelet Count 210 K/UL (150-450) Mean Platelet Volume 8.2 FL (6.5-10.1) Neutrophils (%) (Auto) 68.8 % (45.0-75.0) Lymphocytes (%) (Auto) 23.2 % (20.0-45.0) Monocytes (%) (Auto) 6.4 % (1.0-10.0) Eosinophils (%) (Auto) 1.4 % (0.0-3.0) Basophils (%) (Auto) 0.2 % (0.0-2.0) Sodium Level 135 MMOL/L (136-145) L Potassium Level 4.0 MMOL/L (3.5-5.1) Chloride Level 99 MMOL/L (98-107) Carbon Dioxide Level 31 MMOL/L (21-32) Anion Gap 5 mmol/L (5-15) Blood Urea Nitrogen 24 mg/dL (7-18) H Creatinine 0.7 MG/DL (0.55-1.30) Estimat Glomerular Filtration Rate mL/min (>60) Glucose Level 106 MG/DL (74-106) Calcium Level 8.7 MG/DL (8.5-10.1) Total Bilirubin 0.7 MG/DL (0.2-1.0) Aspartate Amino Transf (AST/SGOT) 19 U/L (15-37) Alanine Aminotransferase (ALT/SGPT) 23 U/L (12-78) Alkaline Phosphatase 59 U/L (46-116) Pro-B-Type Natriuretic Peptide 327 pg/mL (0-125) H Total Protein 6.0 G/DL (6.4-8.2) L Albumin 2.5 G/DL (3.4-5.0) L Globulin 3.5 g/dL Albumin/Globulin Ratio 0.7 (1.0-2.7) L JEFFERSON ROMEO Mar 13, 2017 19:01
[2017-03-13 20:00] VITALS: BP 109/40
--- NOTE | 2017-03-13 23:24 | General Progress Note ---
Assessment/Plan Status: stable, progressing Assessment/Plan anxiety d/o' encephalopathy -cont current meds -provided ro/st -cont ativan Subjective Neurologic/Psychiatric: Reports: anxiety, depressed, emotional problems Allergies: Coded Allergies: TETRACYCLINE (Unverified Allergy, Unknown, 07/24/14) Subjective the pt was is improving Objective Last 24 Hour Vital Signs Date Time Temp Pulse Resp B/P (MAP) Pulse Ox O2 Delivery O2 Flow Rate FiO2 03/13/17 20:53 99 133/68 03/13/17 20:05 90 03/13/17 20:00 97.9 87 18 109/40 100 Nasal Cannula 3.0 03/13/17 19:45 98 Nasal Cannula 3.0 32 03/13/17 19:45 Nasal Cannula 3.0 32 03/13/17 18:46 137/65 03/13/17 16:03 99.3 84 19 137/65 98 Nasal Cannula 3.0 03/13/17 16:00 82 03/13/17 12:00 80 03/13/17 12:00 98.6 80 20 140/74 99 Nasal Cannula 03/13/17 11:55 142/75 03/13/17 09:00 84 142/75 03/13/17 09:00 80 140/74 03/13/17 09:00 84 142/75 03/13/17 08:03 99.0 84 17 142/75 97 Nasal Cannula 03/13/17 08:00 82 03/13/17 07:13 Nasal Cannula 3.0 32 03/13/17 07:13 98 Nasal Cannula 3.0 32 03/13/17 05:48 149/66 03/13/17 04:00 86 03/13/17 04:00 98.0 83 20 132/63 98 Venturi Mask 55 03/13/17 03:05 97.5 03/13/17 00:00 97.5 81 20 104/50 98 Venturi Mask 55 03/13/17 00:00 84 03/13/17 00:00 104/50 Intake and Output 03/13/17 03/14/17 19:00 07:00 Intake Total 240 ml Output Total 1000 ml Balance -760 ml Intake Oral 240 ml Output Urine Total 1000 ml Laboratory Tests 03/13/17 02:35: White Blood Count 9.5, Red Blood Count 2.69L, Hemoglobin 8.5L, Hematocrit 26.7L , Mean Corpuscular Volume 99, Mean Corpuscular Hemoglobin 31.5H, Mean Corpuscular Hemoglobin Concent 31.7L, Red Cell Distribution Width 12.1, Platelet Count 210, Mean Platelet Volume 8.2, Neutrophils (%) (Auto) 68.8, Lymphocytes (%) (Auto) 23.2, Monocytes (%) (Auto) 6.4, Eosinophils (%) (Auto) 1.4, Basophils (%) (Auto) 0.2, Sodium Level 135L, Potassium Level 4.0, Chloride Level 99, Carbon Dioxide Level 31, Anion Gap 5, Blood Urea Nitrogen 24H, Creatinine 0.7, Estimat Glomerular Filtration Rate , Glucose Level 106, Calcium Level 8.7, Total Bilirubin 0.7, Aspartate Amino Transf (AST/SGOT) 19, Alanine Aminotransferase (ALT/SGPT) 23, Alkaline Phosphatase 59, Pro-B-Type Natriuretic Peptide 327H, Total Protein 6.0L, Albumin 2.5L, Globulin 3.5, Albumin/Globulin Ratio 0.7L Height (Feet): 5 Height (Inches): 7.00 Weight (Pounds): 104 Wan Stern M.D. Mar 13, 2017 23:24
[2017-03-14] VITALS: BP 95/50
[2017-03-14] MEDS: Morphine Sulfate 4mg/ml Inj IVP PRN ×2 (03:14→09:05)
[2017-03-14 04:00] VITALS: BP 121/59
[2017-03-14] MEDS: Metoclopramide 10mg/2ml Inj IVP SCH ×3 (05:46→21:33)
[2017-03-14] MEDS: HydrALAZINE 10mg Tab NG SCH ×3 (05:47→17:22)
[2017-03-14 08:00] VITALS: BP 120/48
[2017-03-14] MEDS: Pantoprazole Inj IV SCH (08:18)
[2017-03-14] MEDS: Aspirin EC 81mg tab ORAL SCH (08:22)
[2017-03-14] MEDS: Lyrica 75mg cap ORAL SCH ×3 (08:22→17:22)
[2017-03-14] MEDS: Carvedilol 25mg Tab ORAL SCH ×2 (08:23→21:33)
[2017-03-14 12:00] VITALS: BP 117/55
--- NOTE | 2017-03-14 13:58 | General Progress Note ---
Assessment/Plan Status: stable Assessment/Plan Status: Acute renal failure- etiology? 1900 cc urine out after insertion of shi--JOSE MIGUEL: Moderate right hydronephrosis. Acute on Chronic respiratory failure- extubated now HTN High Cholestrol Pneumonia COPD , exac. Diastolic CHF, Mod MR h/o C dif colitis h/o Breast Ca Anemia Pulm HTN Moderate Plan: now extubated- post extubation care adjust BP meds K and Phos supplement as needed pulm support Allopurinol continue Shi- Avoid nephrotoxics JOSE MIGUEL: Moderate right hydronephrosis. ? Dc planning ? Subjective ROS Limited/Unobtainable: No Constitutional: Reports: malaise Allergies: Coded Allergies: TETRACYCLINE (Unverified Allergy, Unknown, 07/24/14) Objective Last 24 Hour Vital Signs Date Time Temp Pulse Resp B/P (MAP) Pulse Ox O2 Delivery O2 Flow Rate FiO2 03/14/17 12:23 74 03/14/17 08:23 120/48 03/14/17 08:23 79 120/48 03/14/17 08:00 97.9 79 19 120/48 97 Nasal Cannula 3.0 03/14/17 08:00 82 03/14/17 07:30 Nasal Cannula 3.0 32 03/14/17 07:29 97 Nasal Cannula 3.0 32 03/14/17 05:47 115/54 03/14/17 04:00 97.9 73 14 121/59 100 Nasal Cannula 03/14/17 03:51 73 03/14/17 00:22 74 03/14/17 00:00 97.9 76 16 95/50 97 Nasal Cannula 3.0 03/13/17 23:43 100/50 03/13/17 20:53 99 133/68 03/13/17 20:05 90 03/13/17 20:00 97.9 87 18 109/40 100 Nasal Cannula 3.0 03/13/17 19:45 98 Nasal Cannula 3.0 32 03/13/17 19:45 Nasal Cannula 3.0 32 03/13/17 18:46 137/65 03/13/17 16:03 99.3 84 19 137/65 98 Nasal Cannula 3.0 03/13/17 16:00 82 Intake and Output 03/14/17 03/15/17 19:00 07:00 # Bowel Movements 2 Height (Feet): 5 Height (Inches): 7.00 Weight (Pounds): 111 General Appearance: no apparent distress Objective no edema- no change in PE GENARO DUARTE Mar 14, 2017 13:57
[2017-03-14] MEDS: Allopurinol 100mg Tab ORAL SCH (14:04)
--- NOTE | 2017-03-14 14:07 | Infectious Diseases Prog Note ---
Assessment/Plan Assessment/Plan Assessment/Plan Abx: IV Vanco 02/15-03/01 Cefepime 02/15-02/18 Meropenem 02/18-03/03 Assesment: Low grade, SP Ucx >100k yeast (colonizer) No evid of pneumonia at this time - SP bronch 02/26 (collected 02/26, however received on the lab 03/03??): BAL cx NTD -CXR 03/03: Stable bilateral interstitial and alveolar opacities, probable small left pleural effusion, elevation left hemidiaphragm - CT Chest 02/24: Near-complete occlusion of the left mainstem bronchus and proximal lobar bronchi, probably by debris. Extensive resultant atelectasis and consolidation of nearly the entire left lung. Less extensive consolidation within the right lung, nonspecific as regards etiology, likely secondary to pneumonia or edema Crypt Ag serum neg; -sp cx 03/06 <1+ Proteus Mirabilis (S Ancef/CTX, bactrim; R Cipro/levo); s/p recent PNA tx CXR 03/05: There is suggestion of slightly increased pleural fluid on the left. Hazy opacity in the right lung is stable Leukocytosis, mild - recurrent, (s/p steroids 03/07) Swallow eval : Positive for aspiration and penetration of thin liquid barium Acute hypoxic resp failure, SP Intubated 02/26; extubated 03/07 -venous duplex 02/16 no DVT L pleural effusion - improved COPD on home O2 Hx of Cdiff DM2 Chronic abd pain hx of MRSA bacteremia 07/2015 TCA allergy Full Code fibromyalgia, HTN, HLD, R breast cancer,Tobacco abuse (stopped 4 years ago), Anxiety, AOCD Plan: -Continue to monitor off abx; if febrile, increased leukocytosis, oxygen requirements or worsenign CXR- start IV Ceftriaxone for Proteus on sputum -s/p 14d IV Meropenem 03/03 -s/p 14 d IV Vancomycin 03/01 -s/p 6d prophylactic PO vanco 02/21 -s/p 4 d Cefepime 02/18 -f/u Cocci ab -Monitor CBC/BMP, temperatures -Aspiration precautions - vent support, wean as tolerated Subjective Constitutional: Denies: no symptoms, fever, chills, fatigue, anorexia, drenching sweats, other Allergies: Coded Allergies: TETRACYCLINE (Unverified Allergy, Unknown, 3/16/15) Subjective comfortable Objective Vital Signs Last 24 Hour Vital Signs Date Time Temp Pulse Resp B/P (MAP) Pulse Ox O2 Delivery O2 Flow Rate FiO2 03/14/17 14:06 72 117/55 03/14/17 12:23 74 03/14/17 08:23 120/48 03/14/17 08:23 79 120/48 03/14/17 08:00 97.9 79 19 120/48 97 Nasal Cannula 3.0 03/14/17 08:00 82 03/14/17 07:30 Nasal Cannula 3.0 32 03/14/17 07:29 97 Nasal Cannula 3.0 32 03/14/17 05:47 115/54 03/14/17 04:00 97.9 73 14 121/59 100 Nasal Cannula 03/14/17 03:51 73 03/14/17 00:22 74 03/14/17 00:00 97.9 76 16 95/50 97 Nasal Cannula 3.0 03/13/17 23:43 100/50 03/13/17 20:53 99 133/68 03/13/17 20:05 90 03/13/17 20:00 97.9 87 18 109/40 100 Nasal Cannula 3.0 03/13/17 19:45 98 Nasal Cannula 3.0 32 03/13/17 19:45 Nasal Cannula 3.0 32 03/13/17 18:46 137/65 03/13/17 16:03 99.3 84 19 137/65 98 Nasal Cannula 3.0 03/13/17 16:00 82 Height (Feet): 5 Height (Inches): 7.00 Weight (Pounds): 111 HEENT: mucous membranes moist Respiratory/Chest: no respiratory distress Cardiovascular: regularly irregular Abdomen: non distended Current Medications Medications (Trade) Dose Ordered Sig/Wilner Route PRN Reason Start Time Stop Time Status Last Admin Dose Admin Acetaminophen (Tylenol) 650 mg Q4H PRN ORAL Fever/Headache/Mild Pain 03/08/17 20:00 04/07/17 23:59 Allopurinol (Zyloprim) 100 mg DAILY ORAL 03/09/17 09:00 04/07/17 23:59 03/14/17 14:04 Amlodipine Besylate (Norvasc) 10 mg DAILY ORAL 03/04/17 12:00 04/03/17 11:59 03/14/17 14:06 Aspirin (Ecotrin) 81 mg DAILY ORAL 03/09/17 09:00 03/29/17 23:59 03/14/17 08:22 Bisacodyl (Dulcolax) 10 mg DAILYPRN PRN RECTAL Constipation Third Line Agent 03/08/17 18:15 04/07/17 23:59 Carvedilol (Coreg) 25 mg Q12HR ORAL 03/05/17 21:00 04/04/17 20:59 03/14/17 08:23 Dextrose (Dextrose 50%) STAT PRN IV Hypoglycemia 02/25/17 15:15 03/17/17 15:14 Escitalopram Oxalate (Lexapro) 10 mg DAILY ORAL 02/26/17 09:00 03/20/17 08:59 03/12/17 08:33 Haloperidol Lactate (Haldol) 2 mg Q4H PRN IM Agitation 02/25/17 15:15 03/27/17 15:14 03/08/17 15:58 Hydralazine HCl (Apresoline) 10 mg Q6HR NG 03/05/17 12:00 04/04/17 11:59 03/14/17 08:23 Hydralazine HCl (Apresoline) 25 mg Q4H PRN ORAL SBP > 160mmHg 02/25/17 15:15 03/27/17 15:14 03/04/17 08:30 Lidocaine (Xylocaine 1% MPF 5ml) 10 ml Q4H PRN HHN cough 02/25/17 15:15 03/19/17 15:14 Metoclopramide HCl (Reglan) 5 mg Q8HR IVP 03/04/17 22:00 04/03/17 21:59 03/14/17 13:44 Morphine Sulfate (Morphine Sulfate) 2 mg Q4H PRN IVP Pain 4-10 03/08/17 09:15 03/15/17 09:14 03/14/17 09:05 Ondansetron HCl (Zofran) 4 mg Q6H PRN IVP Nausea & Vomiting 02/25/17 15:15 03/17/17 15:14 03/13/17 09:09 Pantoprazole (Protonix) 40 mg DAILY IV 02/27/17 09:00 03/29/17 08:59 03/14/17 08:18 Polyethylene Glycol (Miralax) 17 gm DAILYPRN PRN ORAL Constipation First line agent 02/25/17 15:15 03/17/17 15:14 Pravastatin Sodium (Pravachol) 20 mg BEDTIME ORAL 02/25/17 21:00 03/18/17 20:59 03/13/17 20:54 Pregabalin (Lyrica) 150 mg THREE TIMES A DAY ORAL 02/25/17 18:00 03/18/17 12:59 03/14/17 13:50 Promethazine HCl/ Codeine (Phenergan with Codeine) 5 ml Q4H PRN ORAL UNRELIEVED COUGH 02/25/17 15:15 03/18/17 15:14 Ranitidine HCl (Zantac) 150 mg QPM ORAL 02/25/17 16:30 03/27/17 16:29 03/13/17 16:03 ORLANDO RODRIGUEZ M.D. Mar 14, 2017 14:07
[2017-03-14 16:00] VITALS: BP 120/53
--- NOTE | 2017-03-14 16:11 | Internal Med Progress Note ---
Subjective Date of Service: Mar 14, 2017 Physician Name Zeb Contreras Attending Physician Jun Cedillo MD Current Medications Medications (Trade) Dose Ordered Sig/Wilner Route PRN Reason Start Time Stop Time Status Last Admin Dose Admin Acetaminophen (Tylenol) 650 mg Q4H PRN ORAL Fever/Headache/Mild Pain 03/08/17 20:00 04/07/17 23:59 Allopurinol (Zyloprim) 100 mg DAILY ORAL 03/15/17 09:00 04/14/17 08:59 Amlodipine Besylate (Norvasc) 10 mg DAILY ORAL 03/15/17 09:00 04/14/17 08:59 Aspirin (Ecotrin) 81 mg DAILY ORAL 03/09/17 09:00 03/29/17 23:59 03/14/17 08:22 Bisacodyl (Dulcolax) 10 mg DAILYPRN PRN RECTAL Constipation Third Line Agent 03/08/17 18:15 04/07/17 23:59 Carvedilol (Coreg) 25 mg Q12HR ORAL 03/05/17 21:00 04/04/17 20:59 03/14/17 08:23 Dextrose (Dextrose 50%) STAT PRN IV Hypoglycemia 02/25/17 15:15 03/17/17 15:14 Escitalopram Oxalate (Lexapro) 10 mg DAILY ORAL 03/14/17 14:15 04/13/17 14:14 03/14/17 14:12 Haloperidol Lactate (Haldol) 2 mg Q4H PRN IM Agitation 02/25/17 15:15 03/27/17 15:14 03/08/17 15:58 Hydralazine HCl (Apresoline) 10 mg Q6HR NG 03/05/17 12:00 04/04/17 11:59 03/14/17 08:23 Hydralazine HCl (Apresoline) 25 mg Q4H PRN ORAL SBP > 160mmHg 02/25/17 15:15 03/27/17 15:14 03/04/17 08:30 Lidocaine (Xylocaine 1% MPF 5ml) 10 ml Q4H PRN HHN cough 02/25/17 15:15 03/19/17 15:14 Metoclopramide HCl (Reglan) 5 mg Q8HR IVP 03/04/17 22:00 04/03/17 21:59 03/14/17 13:44 Morphine Sulfate (Morphine Sulfate) 2 mg Q4H PRN IVP Pain 4-10 03/08/17 09:15 03/15/17 09:14 03/14/17 09:05 Ondansetron HCl (Zofran) 4 mg Q6H PRN IVP Nausea & Vomiting 02/25/17 15:15 03/17/17 15:14 03/13/17 09:09 Pantoprazole (Protonix) 40 mg DAILY IV 02/27/17 09:00 03/29/17 08:59 03/14/17 08:18 Polyethylene Glycol (Miralax) 17 gm DAILYPRN PRN ORAL Constipation First line agent 02/25/17 15:15 03/17/17 15:14 Pravastatin Sodium (Pravachol) 20 mg BEDTIME ORAL 02/25/17 21:00 03/18/17 20:59 03/13/17 20:54 Pregabalin (Lyrica) 150 mg THREE TIMES A DAY ORAL 02/25/17 18:00 03/18/17 12:59 03/14/17 13:50 Promethazine HCl/ Codeine (Phenergan with Codeine) 5 ml Q4H PRN ORAL UNRELIEVED COUGH 02/25/17 15:15 03/18/17 15:14 Ranitidine HCl (Zantac) 150 mg QPM ORAL 02/25/17 16:30 03/27/17 16:29 03/13/17 16:03 Allergies: Coded Allergies: TETRACYCLINE (Unverified Allergy, Unknown, 07/24/14) ROS Limited/Unobtainable: No Constitutional: Reports: no symptoms HEENT: Reports: no symptoms Cardiovascular: Reports: no symptoms Respiratory: Reports: shortness of breath Gastrointestinal/Abdominal: Reports: no symptoms Genitourinary: Reports: no symptoms Neurologic/Psychiatric: Reports: no symptoms Subjective 76 YO F admitted with shortness of breath. Now pneumonia. Cover for Int Med- Dr Cedillo. CAYETANO. Failed swallow eval. Tolerating venturi mask Objective Last Vital Signs Date Time Temp Pulse Resp B/P (MAP) Pulse Ox O2 Delivery O2 Flow Rate FiO2 03/14/17 14:06 72 117/55 03/14/17 12:00 97.7 20 97 Nasal Cannula 3.0 03/14/17 07:30 32 Intake and Output 03/14/17 03/15/17 19:00 07:00 Intake Total 320 ml Balance 320 ml Intake Oral 320 ml # Bowel Movements 4 Objective General Appearance: WD/WN, no apparent distress, alert EENT: PERRL/EOMI, normal ENT inspection, TMs normal Neck: non-tender, normal alignment, supple, normal inspection Cardiovascular: normal peripheral pulses, normal rate, regular rhythm, no gallop/murmur, no JVD Respiratory/Chest: Nasal canula; chest wall non-tender, respiratory distress, decreased breath sounds, crackles/rales, rhonchi - bilaterally, expiratory wheezing Abdomen: normal bowel sounds, non tender, soft, no organomegaly, no mass Extremities: normal range of motion 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 (8) Pneumonia Assessment & Plan: D/C antibiotics - See ID and pulmonary notes. (9) COPD exacerbation Assessment & Plan: Continue IV solumedrol and xopenex/atrovent nebs. See pulmonary note. (10) Diastolic CHF Assessment & Plan: See cardiology note. 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 S/P intubation to aerate left lung-see pulmonary note. D/W pulmonary Dr Hernandez. Extubated 03/07 (14) Respiratory failure requiring intubation Assessment & Plan: Extubated 03/07/17; tolerating nasal canula (15) Dysphagia Assessment & Plan: Failed swallow eval. See speech therapy note. Status: progressing [id number] Mar 14, 2017 16:11
--- NOTE | 2017-03-14 16:33 | Pulmonology Progress Note ---
Assessment/Plan Assessment/Plan ASSESSMENT acute on chronic hypoxemic respiratory failure( home O2 dependent) requiring intubation -02/26 s/p extubation - 03/07 COPD exacerbation acute diastolic CHF PNA, s/p rx L pleural effusion left lung collapse s/p bronch 02/26 moderate MR moderate pulmonary HTN Hx of SDH and ICH Anemia of chronic disease Hx of breast Ca HTN Hx of C dif colitis dysphagia PLAN OF CARE [place] O2 HHN titrate O2 to keep sat above 92% a/tussive prn CT chest 02/24 noted s/p bronch 02/26 bronchial aspirate negative negative s/p abx Rx last CXR with Improved but persistent left basilar pleural and parenchymal disease, over 2 days Venous Duplex BLE negative ECHO with EF 50% and RVSP if 43, c/w moderate pulmonary HTN, + moderate MR BP management with BB, CCB and Hydralazine and optimize as needed pain management GI prophylaxis BSSE with evidence of dysphagia diet as per ST recommendations strict aspiration/reflux precautions awaiting for placement case discussed and evaluated by supervising physician Subjective Allergies: Coded Allergies: TETRACYCLINE (Unverified Allergy, Unknown, 07/24/14) Subjective afebrile, no leukocytosis on 3L o2 via NC no signs of respiratory distress no chest pain CXR somewhat better Objective Last 24 Hour Vital Signs Date Time Temp Pulse Resp B/P (MAP) Pulse Ox O2 Delivery O2 Flow Rate FiO2 03/14/17 14:06 72 117/55 03/14/17 12:23 74 03/14/17 12:00 97.7 72 20 117/55 97 Nasal Cannula 3.0 03/14/17 08:23 120/48 03/14/17 08:23 79 120/48 03/14/17 08:00 97.9 79 19 120/48 97 Nasal Cannula 3.0 03/14/17 08:00 82 03/14/17 07:30 Nasal Cannula 3.0 32 03/14/17 07:29 97 Nasal Cannula 3.0 32 03/14/17 05:47 115/54 03/14/17 04:00 97.9 73 14 121/59 100 Nasal Cannula 03/14/17 03:51 73 03/14/17 00:22 74 03/14/17 00:00 97.9 76 16 95/50 97 Nasal Cannula 3.0 03/13/17 23:43 100/50 03/13/17 20:53 99 133/68 03/13/17 20:05 90 03/13/17 20:00 97.9 87 18 109/40 100 Nasal Cannula 3.0 03/13/17 19:45 98 Nasal Cannula 3.0 32 03/13/17 19:45 Nasal Cannula 3.0 32 03/13/17 18:46 137/65 Intake and Output 03/14/17 03/15/17 19:00 07:00 Intake Total 320 ml Balance 320 ml Intake Oral 320 ml # Bowel Movements 4 Objective General Appearance: no acute distress, awake, alert, elderly female HEENT: normocephalic, atraumatic, anicteric, mucous membranes moist, O2 via NC Respiratory/Chest: no accessory muscle use, occasional expiratory wheezing Cardiovascular: normal rate and rhythm, SR on tele Abdomen: normal bowel sounds, soft, non tender, non distended Extremities: pedal pulses normal, trace edema BLE Neurologic/Psychiatric: alert, responsive, bedridden Musculoskeletal: atrophy - BLE Current Medications Medications (Trade) Dose Ordered Sig/Wilner Route PRN Reason Start Time Stop Time Status Last Admin Dose Admin Acetaminophen (Tylenol) 650 mg Q4H PRN ORAL Fever/Headache/Mild Pain 03/08/17 20:00 04/07/17 23:59 Allopurinol (Zyloprim) 100 mg DAILY ORAL 03/15/17 09:00 04/14/17 08:59 Amlodipine Besylate (Norvasc) 10 mg DAILY ORAL 03/15/17 09:00 04/14/17 08:59 Aspirin (Ecotrin) 81 mg DAILY ORAL 03/09/17 09:00 03/29/17 23:59 03/14/17 08:22 Bisacodyl (Dulcolax) 10 mg DAILYPRN PRN RECTAL Constipation Third Line Agent 03/08/17 18:15 04/07/17 23:59 Carvedilol (Coreg) 25 mg Q12HR ORAL 03/05/17 21:00 04/04/17 20:59 03/14/17 08:23 Dextrose (Dextrose 50%) STAT PRN IV Hypoglycemia 02/25/17 15:15 03/17/17 15:14 Escitalopram Oxalate (Lexapro) 10 mg DAILY ORAL 03/14/17 14:15 04/13/17 14:14 03/14/17 14:12 Haloperidol Lactate (Haldol) 2 mg Q4H PRN IM Agitation 02/25/17 15:15 03/27/17 15:14 03/08/17 15:58 Hydralazine HCl (Apresoline) 10 mg Q6HR NG 03/05/17 12:00 04/04/17 11:59 03/14/17 08:23 Hydralazine HCl (Apresoline) 25 mg Q4H PRN ORAL SBP > 160mmHg 02/25/17 15:15 03/27/17 15:14 03/04/17 08:30 Lidocaine (Xylocaine 1% MPF 5ml) 10 ml Q4H PRN HHN cough 02/25/17 15:15 03/19/17 15:14 Metoclopramide HCl (Reglan) 5 mg Q8HR IVP 03/04/17 22:00 04/03/17 21:59 03/14/17 13:44 Morphine Sulfate (Morphine Sulfate) 2 mg Q4H PRN IVP Pain 4-10 03/08/17 09:15 03/15/17 09:14 03/14/17 09:05 Ondansetron HCl (Zofran) 4 mg Q6H PRN IVP Nausea & Vomiting 02/25/17 15:15 03/17/17 15:14 03/13/17 09:09 Pantoprazole (Protonix) 40 mg DAILY IV 02/27/17 09:00 03/29/17 08:59 03/14/17 08:18 Polyethylene Glycol (Miralax) 17 gm DAILYPRN PRN ORAL Constipation First line agent 02/25/17 15:15 03/17/17 15:14 Pravastatin Sodium (Pravachol) 20 mg BEDTIME ORAL 02/25/17 21:00 03/18/17 20:59 03/13/17 20:54 Pregabalin (Lyrica) 150 mg THREE TIMES A DAY ORAL 02/25/17 18:00 03/18/17 12:59 03/14/17 13:50 Promethazine HCl/ Codeine (Phenergan with Codeine) 5 ml Q4H PRN ORAL UNRELIEVED COUGH 02/25/17 15:15 03/18/17 15:14 Ranitidine HCl (Zantac) 150 mg QPM ORAL 02/25/17 16:30 03/27/17 16:29 03/13/17 16:03 Rayray (Kaitlynncarie)Cassidy NP Mar 14, 2017 16:33
[2017-03-14] MEDS ORDERED: NS 275ml ONE (17:27)
[2017-03-14 20:00] VITALS: BP 93/42
--- NOTE | 2017-03-14 22:08 | General Progress Note ---
Assessment/Plan Status: stable, progressing Assessment/Plan anxiety d/o' encephalopathy -cont current meds -provided ro/st -cont ativan Subjective Neurologic/Psychiatric: Reports: anxiety, depressed, emotional problems Allergies: Coded Allergies: TETRACYCLINE (Unverified Allergy, Unknown, 07/24/14) Subjective the pt wasasleep asking for pain meds Objective Last 24 Hour Vital Signs Date Time Temp Pulse Resp B/P (MAP) Pulse Ox O2 Delivery O2 Flow Rate FiO2 03/14/17 21:40 98 Nasal Cannula 3.0 32 03/14/17 21:40 Nasal Cannula 3.0 32 03/14/17 21:33 69 114/51 03/14/17 20:00 66 03/14/17 17:22 120/53 03/14/17 16:00 97.2 74 19 120/53 97 Nasal Cannula 3.0 03/14/17 16:00 64 03/14/17 14:06 72 117/55 03/14/17 12:23 74 03/14/17 12:00 97.7 72 20 117/55 97 Nasal Cannula 3.0 03/14/17 08:23 120/48 03/14/17 08:23 79 120/48 03/14/17 08:00 97.9 79 19 120/48 97 Nasal Cannula 3.0 03/14/17 08:00 82 03/14/17 07:30 Nasal Cannula 3.0 32 03/14/17 07:29 97 Nasal Cannula 3.0 32 03/14/17 05:47 115/54 03/14/17 04:00 97.9 73 14 121/59 100 Nasal Cannula 03/14/17 03:51 73 03/14/17 00:22 74 03/14/17 00:00 97.9 76 16 95/50 97 Nasal Cannula 3.0 03/13/17 23:43 100/50 Intake and Output 03/14/17 03/15/17 19:00 07:00 Intake Total 420 ml Output Total 450 ml Balance -30 ml Intake Oral 420 ml Output Urine Total 450 ml # Bowel Movements 5 Height (Feet): 5 Height (Inches): 7.00 Weight (Pounds): 111 General Appearance: no apparent distress, alert, overweight Neurologic: alert, responsive, depressed affect Wan Stern M.D. Mar 14, 2017 22:08
--- NOTE | 2017-03-14 22:45 | Cardiology Progress Note ---
Assessment/Plan Assessment/Plan pain control Subjective Subjective the patient denies dyspnea, has abdominal pain, asking for pain medications Objective Last 24 Hour Vital Signs Date Time Temp Pulse Resp B/P (MAP) Pulse Ox O2 Delivery O2 Flow Rate FiO2 03/14/17 21:40 98 Nasal Cannula 3.0 32 03/14/17 21:40 Nasal Cannula 3.0 32 03/14/17 21:33 69 114/51 03/14/17 20:00 66 03/14/17 20:00 96.1 74 16 93/42 100 Nasal Cannula 3.0 03/14/17 17:22 120/53 03/14/17 16:00 97.2 74 19 120/53 97 Nasal Cannula 3.0 03/14/17 16:00 64 03/14/17 14:06 72 117/55 03/14/17 12:23 74 03/14/17 12:00 97.7 72 20 117/55 97 Nasal Cannula 3.0 03/14/17 08:23 120/48 03/14/17 08:23 79 120/48 03/14/17 08:00 97.9 79 19 120/48 97 Nasal Cannula 3.0 03/14/17 08:00 82 03/14/17 07:30 Nasal Cannula 3.0 32 03/14/17 07:29 97 Nasal Cannula 3.0 32 03/14/17 05:47 115/54 03/14/17 04:00 97.9 73 14 121/59 100 Nasal Cannula 03/14/17 03:51 73 03/14/17 00:22 74 03/14/17 00:00 97.9 76 16 95/50 97 Nasal Cannula 3.0 03/13/17 23:43 100/50 General Appearance: other - elderlym, not in distress EENT: PERRL/EOMI Neck: supple Rhythm: NSR Cardiovascular: regular rhythm Respiratory/Chest: expiratory wheezing Abdomen: soft Extremities: normal range of motion Intake and Output 03/14/17 03/15/17 19:00 07:00 Intake Total 420 ml Output Total 450 ml Balance -30 ml Intake Oral 420 ml Output Urine Total 450 ml # Bowel Movements 5 RAPHAEL CR Mar 14, 2017 22:45
[2017-03-15] VITALS: BP 88/44
[2017-03-15 04:00] VITALS: BP 108/38
[2017-03-15] MEDS: Metoclopramide 10mg/2ml Inj IVP SCH ×3 (05:51→22:22)
[2017-03-15] MEDS: HydrALAZINE 10mg Tab NG SCH ×4 (05:51→18:00)
[2017-03-15 07:23] LABS: BASOPHILS % (AUTO) 0.4 % (0.0-2.0); EOSINOPHILS % (AUTO) 1.9 % (0.0-3.0); HEMATOCRIT 26.1 % (37.0-47.0); HEMOGLOBIN 8.4 G/DL (12.0-16.0); LYMPHOCYTES % (AUTO) 26.6 % (20.0-45.0); MEAN CORPUSCULAR VOLUME 100 FL (80-99); MONOCYTES % (AUTO) 11.1 % (1.0-10.0); PLATELET COUNT 191 K/UL (150-450); RED BLOOD COUNT 2.61 M/UL (4.20-5.40); RED CELL DISTRIBUTION WIDTH 11.9 % (11.6-14.8); WHITE BLOOD COUNT 5.1 K/UL (4.8-10.8)
--- NOTE | 2017-03-15 07:43 | Pulmonology Progress Note ---
Assessment/Plan Assessment/Plan ASSESSMENT acute on chronic hypoxemic respiratory failure( home O2 dependent) requiring intubation -02/26 s/p extubation - 03/07 COPD exacerbation acute diastolic CHF PNA, s/p Rx L pleural effusion left lung collapse s/p bronch 02/26 moderate MR moderate pulmonary HTN Hx of SDH and ICH Anemia of chronic disease Hx of breast Ca HTN Hx of C dif colitis dysphagia PLAN OF CARE [place] O2 HHN titrate O2 to keep sat above 92% a/tussive prn CT chest 02/24 noted s/p bronch 02/26 bronchial aspirate negative last CXR with Improved but persistent left basilar pleural and parenchymal disease, over 2 days s/p abx rx Venous Duplex BLE negative ECHO with EF 50% and RVSP if 43, c/w moderate pulmonary HTN, + moderate MR BP management with BB, CCB and hydralazine, with holding parameters , stable pain management GI prophylaxis BSSE with evidence of dysphagia diet as per ST recommendations strict aspiration/reflux precautions awaiting for placement case discussed and evaluated by supervising physician Subjective Allergies: Coded Allergies: TETRACYCLINE (Unverified Allergy, Unknown, 07/24/14) Subjective on 3L o2 via NC no signs of respiratory distress tly no chest pain CXR somewhat better afebrile, no leukocytosis Objective Last 24 Hour Vital Signs Date Time Temp Pulse Resp B/P (MAP) Pulse Ox O2 Delivery O2 Flow Rate FiO2 03/15/17 05:51 98/42 03/15/17 04:00 96.4 70 20 108/38 99 Nasal Cannula 3.0 03/15/17 04:00 70 03/15/17 00:00 96.4 65 16 88/44 99 Nasal Cannula 3.0 03/15/17 00:00 88/44 03/15/17 00:00 65 03/14/17 21:40 98 Nasal Cannula 3.0 32 03/14/17 21:40 Nasal Cannula 3.0 32 03/14/17 21:33 69 114/51 03/14/17 20:00 66 03/14/17 20:00 96.1 74 16 93/42 100 Nasal Cannula 3.0 03/14/17 17:22 120/53 03/14/17 16:00 97.2 74 19 120/53 97 Nasal Cannula 3.0 03/14/17 16:00 64 03/14/17 14:06 72 117/55 03/14/17 12:23 74 03/14/17 12:00 97.7 72 20 117/55 97 Nasal Cannula 3.0 03/14/17 08:23 120/48 03/14/17 08:23 79 120/48 03/14/17 08:00 97.9 79 19 120/48 97 Nasal Cannula 3.0 03/14/17 08:00 82 Objective General Appearance: no acute distress, awake, alert, elderly female HEENT: normocephalic, atraumatic, anicteric, mucous membranes moist, O2 via NC Respiratory/Chest: no accessory muscle use, occasional expiratory wheezing Cardiovascular: normal rate and rhythm, SR on tele Abdomen: normal bowel sounds, soft, non tender, non distended Extremities: pedal pulses normal, trace edema BLE Neurologic/Psychiatric: alert, responsive, bedridden Musculoskeletal: atrophy - BLE Laboratory Tests 03/15/17 06:30: White Blood Count 5.1, Red Blood Count 2.61L, Hemoglobin 8.4L, Hematocrit 26.1L , Mean Corpuscular Volume 100H, Mean Corpuscular Hemoglobin 32.3H, Mean Corpuscular Hemoglobin Concent 32.3, Red Cell Distribution Width 11.9, Platelet Count 191, Mean Platelet Volume 7.3, Neutrophils (%) (Auto) 60.0, Lymphocytes (% ) (Auto) 26.6, Monocytes (%) (Auto) 11.1H, Eosinophils (%) (Auto) 1.9, Basophils (%) (Auto) 0.4, Sodium Level [Pending], Potassium Level [Pending], Chloride Level [Pending], Carbon Dioxide Level [Pending], Blood Urea Nitrogen [ Pending], Creatinine [Pending], Estimat Glomerular Filtration Rate [Pending], Glucose Level [Pending], Calcium Level [Pending] Current Medications Medications (Trade) Dose Ordered Sig/Wilner Route PRN Reason Start Time Stop Time Status Last Admin Dose Admin Acetaminophen (Tylenol) 650 mg Q4H PRN ORAL Fever/Headache/Mild Pain 03/08/17 20:00 04/07/17 23:59 Allopurinol (Zyloprim) 100 mg DAILY ORAL 03/15/17 09:00 04/14/17 08:59 Amlodipine Besylate (Norvasc) 10 mg DAILY ORAL 03/15/17 09:00 12/5/17 08:59 Aspirin (Ecotrin) 81 mg DAILY ORAL 03/09/17 09:00 03/29/17 23:59 03/14/17 08:22 Bisacodyl (Dulcolax) 10 mg DAILYPRN PRN RECTAL Constipation Third Line Agent 03/08/17 18:15 04/07/17 23:59 Carvedilol (Coreg) 25 mg Q12HR ORAL 03/05/17 21:00 04/04/17 20:59 03/14/17 21:33 Dextrose (Dextrose 50%) STAT PRN IV Hypoglycemia 02/25/17 15:15 03/17/17 15:14 Escitalopram Oxalate (Lexapro) 10 mg DAILY ORAL 03/14/17 14:15 04/13/17 14:14 03/14/17 14:12 Haloperidol Lactate (Haldol) 2 mg Q4H PRN IM Agitation 02/25/17 15:15 03/27/17 15:14 03/08/17 15:58 Hydralazine HCl (Apresoline) 10 mg Q6HR NG 03/05/17 12:00 04/04/17 11:59 03/15/17 05:51 Hydralazine HCl (Apresoline) 25 mg Q4H PRN ORAL SBP > 160mmHg 02/25/17 15:15 03/27/17 15:14 03/04/17 08:30 Lidocaine (Xylocaine 1% MPF 5ml) 10 ml Q4H PRN HHN cough 02/25/17 15:15 03/19/17 15:14 Metoclopramide HCl (Reglan) 5 mg Q8HR IVP 03/04/17 22:00 04/03/17 21:59 03/15/17 05:51 Morphine Sulfate (Morphine Sulfate) 2 mg Q4H PRN IVP Pain 4-10 03/14/17 17:15 03/21/17 17:14 Ondansetron HCl (Zofran) 4 mg Q6H PRN IVP Nausea & Vomiting 02/25/17 15:15 03/17/17 15:14 03/13/17 09:09 Pantoprazole (Protonix) 40 mg DAILY IV 02/27/17 09:00 03/29/17 08:59 03/14/17 08:18 Polyethylene Glycol (Miralax) 17 gm DAILYPRN PRN ORAL Constipation First line agent 02/25/17 15:15 03/17/17 15:14 Pravastatin Sodium (Pravachol) 20 mg BEDTIME ORAL 02/25/17 21:00 03/18/17 20:59 03/14/17 21:33 Pregabalin (Lyrica) 150 mg THREE TIMES A DAY ORAL 02/25/17 18:00 03/18/17 12:59 03/14/17 17:22 Promethazine HCl/ Codeine (Phenergan with Codeine) 5 ml Q4H PRN ORAL UNRELIEVED COUGH 02/25/17 15:15 03/18/17 15:14 Ranitidine HCl (Zantac) 150 mg QPM ORAL 02/25/17 16:30 03/27/17 16:29 03/14/17 17:22 Rayray ([facility])Cassidy NP Mar 15, 2017 07:43
[2017-03-15 08:00] VITALS: BP 116/54
--- NOTE | 2017-03-15 08:14 | Infectious Diseases Prog Note ---
Assessment/Plan Assessment/Plan A; Pneumonia s/p Rx COPD exacerbation s/p Rx Hypoxemic respiratory failure resolved DM type II P: observe off antibiotic Subjective ROS Limited/Unobtainable: No Constitutional: Reports: no symptoms Respiratory: Reports: productive cough Cardiovascular: Reports: no symptoms Gastrointestinal/Abdominal: Reports: no symptoms Musculoskeletal: Reports: pain, other - back & legs pain Allergies: Coded Allergies: TETRACYCLINE (Unverified Allergy, Unknown, 07/24/14) Objective Vital Signs Last 24 Hour Vital Signs Date Time Temp Pulse Resp B/P (MAP) Pulse Ox O2 Delivery O2 Flow Rate FiO2 03/15/17 05:51 98/42 03/15/17 04:00 96.4 70 20 108/38 99 Nasal Cannula 3.0 03/15/17 04:00 70 03/15/17 00:00 96.4 65 16 88/44 99 Nasal Cannula 3.0 03/15/17 00:00 88/44 03/15/17 00:00 65 03/14/17 21:40 98 Nasal Cannula 3.0 32 03/14/17 21:40 Nasal Cannula 3.0 32 03/14/17 21:33 69 114/51 03/14/17 20:00 66 03/14/17 20:00 96.1 74 16 93/42 100 Nasal Cannula 3.0 03/14/17 17:22 120/53 03/14/17 16:00 97.2 74 19 120/53 97 Nasal Cannula 3.0 03/14/17 16:00 64 03/14/17 14:06 72 117/55 03/14/17 12:23 74 03/14/17 12:00 97.7 72 20 117/55 97 Nasal Cannula 3.0 03/14/17 08:23 120/48 03/14/17 08:23 79 120/48 Height (Feet): 5 Height (Inches): 7.00 Weight (Pounds): 116 General Appearance: no acute distress HEENT: mucous membranes moist Respiratory/Chest: rhonchi - bilaterally Cardiovascular: normal rate Abdomen: soft, non tender Extremities: no edema Neurologic/Psychiatric: alert, oriented x 3, responsive Musculoskeletal: atrophy Laboratory Tests Test 03/15/17 06:30 White Blood Count 5.1 K/UL (4.8-10.8) Red Blood Count 2.61 M/UL (4.20-5.40) L Hemoglobin 8.4 G/DL (12.0-16.0) L Hematocrit 26.1 % (37.0-47.0) L Mean Corpuscular Volume 100 FL (80-99) H Mean Corpuscular Hemoglobin 32.3 PG (27.0-31.0) H Mean Corpuscular Hemoglobin Concent 32.3 G/DL (32.0-36.0) Red Cell Distribution Width 11.9 % (11.6-14.8) Platelet Count 191 K/UL (150-450) Mean Platelet Volume 7.3 FL (6.5-10.1) Neutrophils (%) (Auto) 60.0 % (45.0-75.0) Lymphocytes (%) (Auto) 26.6 % (20.0-45.0) Monocytes (%) (Auto) 11.1 % (1.0-10.0) H Eosinophils (%) (Auto) 1.9 % (0.0-3.0) Basophils (%) (Auto) 0.4 % (0.0-2.0) Sodium Level Pending Potassium Level Pending Chloride Level Pending Carbon Dioxide Level Pending Blood Urea Nitrogen Pending Creatinine Pending Estimat Glomerular Filtration Rate Pending Glucose Level Pending Calcium Level Pending Current Medications Medications (Trade) Dose Ordered Sig/Wilner Route PRN Reason Start Time Stop Time Status Last Admin Dose Admin Acetaminophen (Tylenol) 650 mg Q4H PRN ORAL Fever/Headache/Mild Pain 03/08/17 20:00 04/07/17 23:59 Allopurinol (Zyloprim) 100 mg DAILY ORAL 03/15/17 09:00 04/14/17 08:59 Amlodipine Besylate (Norvasc) 10 mg DAILY ORAL 03/15/17 09:00 04/14/17 08:59 Aspirin (Ecotrin) 81 mg DAILY ORAL 03/09/17 09:00 03/29/17 23:59 03/14/17 08:22 Bisacodyl (Dulcolax) 10 mg DAILYPRN PRN RECTAL Constipation Third Line Agent 03/08/17 18:15 04/07/17 23:59 Carvedilol (Coreg) 25 mg Q12HR ORAL 03/05/17 21:00 04/04/17 20:59 03/14/17 21:33 Dextrose (Dextrose 50%) STAT PRN IV Hypoglycemia 02/25/17 15:15 03/17/17 15:14 Escitalopram Oxalate (Lexapro) 10 mg DAILY ORAL 03/14/17 14:15 04/13/17 14:14 03/14/17 14:12 Haloperidol Lactate (Haldol) 2 mg Q4H PRN IM Agitation 02/25/17 15:15 03/27/17 15:14 03/08/17 15:58 Hydralazine HCl (Apresoline) 10 mg Q6HR NG 03/05/17 12:00 04/04/17 11:59 03/15/17 05:51 Hydralazine HCl (Apresoline) 25 mg Q4H PRN ORAL SBP > 160mmHg 02/25/17 15:15 03/27/17 15:14 03/04/17 08:30 Lidocaine (Xylocaine 1% MPF 5ml) 10 ml Q4H PRN HHN cough 02/25/17 15:15 03/19/17 15:14 Metoclopramide HCl (Reglan) 5 mg Q8HR IVP 03/04/17 22:00 04/03/17 21:59 03/15/17 05:51 Morphine Sulfate (Morphine Sulfate) 2 mg Q4H PRN IVP Pain 4-10 03/14/17 17:15 03/21/17 17:14 Ondansetron HCl (Zofran) 4 mg Q6H PRN IVP Nausea & Vomiting 02/25/17 15:15 03/17/17 15:14 03/13/17 09:09 Pantoprazole (Protonix) 40 mg DAILY IV 02/27/17 09:00 03/29/17 08:59 03/14/17 08:18 Polyethylene Glycol (Miralax) 17 gm DAILYPRN PRN ORAL Constipation First line agent 02/25/17 15:15 03/17/17 15:14 Pravastatin Sodium (Pravachol) 20 mg BEDTIME ORAL 02/25/17 21:00 03/18/17 20:59 03/14/17 21:33 Pregabalin (Lyrica) 150 mg THREE TIMES A DAY ORAL 02/25/17 18:00 03/18/17 12:59 03/14/17 17:22 Promethazine HCl/ Codeine (Phenergan with Codeine) 5 ml Q4H PRN ORAL UNRELIEVED COUGH 02/25/17 15:15 03/18/17 15:14 Ranitidine HCl (Zantac) 150 mg QPM ORAL 02/25/17 16:30 03/27/17 16:29 03/14/17 17:22 GOSIA ALBRIGHT Mar 15, 2017 08:14
[2017-03-15] MEDS: Allopurinol 100mg Tab ORAL SCH (08:25)
[2017-03-15] MEDS: Aspirin EC 81mg tab ORAL SCH (08:26)
[2017-03-15] MEDS: Lyrica 75mg cap ORAL SCH ×3 (08:27→18:40)
[2017-03-15] MEDS: Carvedilol 25mg Tab ORAL SCH ×2 (08:28→22:22)
[2017-03-15] MEDS: Pantoprazole Inj IV SCH (08:28)
[2017-03-15] MEDS: Morphine Sulfate 4mg/ml Inj IVP PRN ×3 (08:29→23:16)
[2017-03-15 08:41] LABS: ANION GAP 4 mmol/L (5-15); BLOOD UREA NITROGEN 16 mg/dL (7-18); CALCIUM 8.9 MG/DL (8.5-10.1); CARBON DIOXIDE 32 MMOL/L (21-32); CHLORIDE 100 MMOL/L (98-107); CREATININE 0.6 MG/DL (0.55-1.30); POTASSIUM 3.7 MMOL/L (3.5-5.1); SODIUM 136 MMOL/L (136-145)
--- NOTE | 2017-03-15 11:05 | General Progress Note ---
Assessment/Plan Status: stable Assessment/Plan Status: Acute renal failure- etiology? 1900 cc urine out after insertion of shi--JOSE MIGUEL: Moderate right hydronephrosis. Acute on Chronic respiratory failure- extubated now HTN High Cholestrol Pneumonia COPD , exac. Diastolic CHF, Mod MR h/o C dif colitis h/o Breast Ca Anemia Pulm HTN Moderate Plan: now extubated- post extubation care adjust BP meds K and Phos supplement as needed pulm support Allopurinol continue Shi- Avoid nephrotoxics JOSE MIGUEL: Moderate right hydronephrosis. ? Dc planning ? Subjective ROS Limited/Unobtainable: No Constitutional: Reports: malaise, weakness Allergies: Coded Allergies: TETRACYCLINE (Unverified Allergy, Unknown, 07/24/14) Objective Last 24 Hour Vital Signs Date Time Temp Pulse Resp B/P (MAP) Pulse Ox O2 Delivery O2 Flow Rate FiO2 03/15/17 08:28 74 116/54 03/15/17 08:26 74 116/54 03/15/17 08:00 97.0 74 19 116/54 96 Nasal Cannula 03/15/17 08:00 74 03/15/17 07:26 Nasal Cannula 3.0 32 03/15/17 07:25 95 Nasal Cannula 3.0 32 03/15/17 05:51 98/42 03/15/17 04:00 96.4 70 20 108/38 99 Nasal Cannula 3.0 03/15/17 04:00 70 03/15/17 00:00 96.4 65 16 88/44 99 Nasal Cannula 3.0 03/15/17 00:00 88/44 03/15/17 00:00 65 03/14/17 21:40 98 Nasal Cannula 3.0 32 03/14/17 21:40 Nasal Cannula 3.0 32 03/14/17 21:33 69 114/51 03/14/17 20:00 66 03/14/17 20:00 96.1 74 16 93/42 100 Nasal Cannula 3.0 03/14/17 17:22 120/53 03/14/17 16:00 97.2 74 19 120/53 97 Nasal Cannula 3.0 03/14/17 16:00 64 03/14/17 14:06 72 117/55 03/14/17 12:23 74 03/14/17 12:00 97.7 72 20 117/55 97 Nasal Cannula 3.0 Intake and Output 03/15/17 03/16/17 19:00 07:00 # Bowel Movements 1 Laboratory Tests 03/15/17 06:30: White Blood Count 5.1, Red Blood Count 2.61L, Hemoglobin 8.4L, Hematocrit 26.1L , Mean Corpuscular Volume 100H, Mean Corpuscular Hemoglobin 32.3H, Mean Corpuscular Hemoglobin Concent 32.3, Red Cell Distribution Width 11.9, Platelet Count 191, Mean Platelet Volume 7.3, Neutrophils (%) (Auto) 60.0, Lymphocytes (% ) (Auto) 26.6, Monocytes (%) (Auto) 11.1H, Eosinophils (%) (Auto) 1.9, Basophils (%) (Auto) 0.4, Sodium Level 136, Potassium Level 3.7, Chloride Level 100, Carbon Dioxide Level 32, Anion Gap 4L, Blood Urea Nitrogen 16, Creatinine 0.6, Estimat Glomerular Filtration Rate , Glucose Level 101, Calcium Level 8.9 Height (Feet): 5 Height (Inches): 7.00 Weight (Pounds): 116 General Appearance: no apparent distress Objective no edema- no change in PE GENARO DUARTE Mar 15, 2017 11:05
[2017-03-15 11:22] VITALS: BP 114/59
--- NOTE | 2017-03-15 15:25 | Cardiology Progress Note ---
Assessment/Plan Assessment/Plan the patient looks comfortable, no acute dyspnea Subjective Subjective thtoday feels better, no abdominal pain Objective Last 24 Hour Vital Signs Date Time Temp Pulse Resp B/P (MAP) Pulse Ox O2 Delivery O2 Flow Rate FiO2 03/15/17 15:20 72 03/15/17 11:38 102/51 03/15/17 11:22 74 03/15/17 11:22 97.3 77 20 114/59 98 Nasal Cannula 03/15/17 08:28 74 116/54 03/15/17 08:26 74 116/54 03/15/17 08:00 97.0 74 19 116/54 96 Nasal Cannula 03/15/17 08:00 74 03/15/17 07:26 Nasal Cannula 3.0 32 03/15/17 07:25 95 Nasal Cannula 3.0 32 03/15/17 05:51 98/42 03/15/17 04:00 96.4 70 20 108/38 99 Nasal Cannula 3.0 03/15/17 04:00 70 03/15/17 00:00 96.4 65 16 88/44 99 Nasal Cannula 3.0 03/15/17 00:00 88/44 03/15/17 00:00 65 03/14/17 21:40 98 Nasal Cannula 3.0 32 03/14/17 21:40 Nasal Cannula 3.0 32 03/14/17 21:33 69 114/51 03/14/17 20:00 66 03/14/17 20:00 96.1 74 16 93/42 100 Nasal Cannula 3.0 03/14/17 17:22 120/53 03/14/17 16:00 97.2 74 19 120/53 97 Nasal Cannula 3.0 03/14/17 16:00 64 General Appearance: no apparent distress EENT: PERRL/EOMI Neck: supple Rhythm: NSR Cardiovascular: normal rate Respiratory/Chest: crackles/rales Abdomen: soft Extremities: no swelling Intake and Output 03/15/17 03/16/17 19:00 07:00 # Bowel Movements 3 Laboratory Tests Test 03/15/17 06:30 White Blood Count 5.1 K/UL (4.8-10.8) Red Blood Count 2.61 M/UL (4.20-5.40) L Hemoglobin 8.4 G/DL (12.0-16.0) L Hematocrit 26.1 % (37.0-47.0) L Mean Corpuscular Volume 100 FL (80-99) H Mean Corpuscular Hemoglobin 32.3 PG (27.0-31.0) H Mean Corpuscular Hemoglobin Concent 32.3 G/DL (32.0-36.0) Red Cell Distribution Width 11.9 % (11.6-14.8) Platelet Count 191 K/UL (150-450) Mean Platelet Volume 7.3 FL (6.5-10.1) Neutrophils (%) (Auto) 60.0 % (45.0-75.0) Lymphocytes (%) (Auto) 26.6 % (20.0-45.0) Monocytes (%) (Auto) 11.1 % (1.0-10.0) H Eosinophils (%) (Auto) 1.9 % (0.0-3.0) Basophils (%) (Auto) 0.4 % (0.0-2.0) Sodium Level 136 MMOL/L (136-145) Potassium Level 3.7 MMOL/L (3.5-5.1) Chloride Level 100 MMOL/L (98-107) Carbon Dioxide Level 32 MMOL/L (21-32) Anion Gap 4 mmol/L (5-15) L Blood Urea Nitrogen 16 mg/dL (7-18) Creatinine 0.6 MG/DL (0.55-1.30) Estimat Glomerular Filtration Rate mL/min (>60) Glucose Level 101 MG/DL (74-106) Calcium Level 8.9 MG/DL (8.5-10.1) RAPHAEL CR Mar 15, 2017 15:25
[2017-03-15 16:00] VITALS: BP 117/59
--- NOTE | 2017-03-15 17:06 | Internal Med Progress Note ---
Subjective Date of Service: Mar 15, 2017 Physician Name Zeb Fuentes Attending Physician Jun Cedillo MD Current Medications Medications (Trade) Dose Ordered Sig/Wilner Route PRN Reason Start Time Stop Time Status Last Admin Dose Admin Acetaminophen (Tylenol) 650 mg Q4H PRN ORAL Fever/Headache/Mild Pain 03/08/17 20:00 04/07/17 23:59 Allopurinol (Zyloprim) 100 mg DAILY ORAL 03/15/17 09:00 04/14/17 08:59 03/15/17 08:25 Amlodipine Besylate (Norvasc) 10 mg DAILY ORAL 03/15/17 09:00 04/14/17 08:59 03/15/17 08:26 Aspirin (Ecotrin) 81 mg DAILY ORAL 03/09/17 09:00 03/29/17 23:59 03/15/17 08:26 Bisacodyl (Dulcolax) 10 mg DAILYPRN PRN RECTAL Constipation Third Line Agent 03/08/17 18:15 04/07/17 23:59 Carvedilol (Coreg) 25 mg Q12HR ORAL 03/05/17 21:00 04/04/17 20:59 03/15/17 08:28 Dextrose (Dextrose 50%) STAT PRN IV Hypoglycemia 02/25/17 15:15 03/17/17 15:14 Escitalopram Oxalate (Lexapro) 10 mg DAILY ORAL 03/14/17 14:15 04/13/17 14:14 03/15/17 08:28 Haloperidol Lactate (Haldol) 2 mg Q4H PRN IM Agitation 02/25/17 15:15 03/27/17 15:14 03/08/17 15:58 Hydralazine HCl (Apresoline) 10 mg Q6HR NG 03/05/17 12:00 04/04/17 11:59 03/15/17 05:51 Hydralazine HCl (Apresoline) 25 mg Q4H PRN ORAL SBP > 160mmHg 02/25/17 15:15 03/27/17 15:14 03/04/17 08:30 Lidocaine (Xylocaine 1% MPF 5ml) 10 ml Q4H PRN HHN cough 02/25/17 15:15 03/19/17 15:14 Metoclopramide HCl (Reglan) 5 mg Q8HR IVP 03/04/17 22:00 04/03/17 21:59 03/15/17 13:42 Morphine Sulfate (Morphine Sulfate) 2 mg Q4H PRN IVP Pain 4-10 03/14/17 17:15 03/21/17 17:14 03/15/17 13:40 Ondansetron HCl (Zofran) 4 mg Q6H PRN IVP Nausea & Vomiting 02/25/17 15:15 03/17/17 15:14 03/13/17 09:09 Pantoprazole (Protonix) 40 mg DAILY IV 02/27/17 09:00 03/29/17 08:59 03/15/17 08:28 Polyethylene Glycol (Miralax) 17 gm DAILYPRN PRN ORAL Constipation First line agent 02/25/17 15:15 03/17/17 15:14 Pravastatin Sodium (Pravachol) 20 mg BEDTIME ORAL 02/25/17 21:00 03/18/17 20:59 03/14/17 21:33 Pregabalin (Lyrica) 150 mg THREE TIMES A DAY ORAL 02/25/17 18:00 03/18/17 12:59 03/15/17 13:39 Promethazine HCl/ Codeine (Phenergan with Codeine) 5 ml Q4H PRN ORAL UNRELIEVED COUGH 02/25/17 15:15 03/18/17 15:14 Ranitidine HCl (Zantac) 150 mg QPM ORAL 02/25/17 16:30 03/27/17 16:29 03/14/17 17:22 Allergies: Coded Allergies: TETRACYCLINE (Unverified Allergy, Unknown, 07/24/14) ROS Limited/Unobtainable: No Constitutional: Reports: no symptoms HEENT: Reports: no symptoms Cardiovascular: Reports: no symptoms Respiratory: Reports: no symptoms Gastrointestinal/Abdominal: Reports: no symptoms Genitourinary: Reports: no symptoms Neurologic/Psychiatric: Reports: no symptoms Subjective 76 YO F admitted with shortness of breath. Now pneumonia. Cover for Int Daniel- Dr Cedillo. CAYETANO. Tolerating Nasal canula. Objective Last Vital Signs Date Time Temp Pulse Resp B/P (MAP) Pulse Ox O2 Delivery O2 Flow Rate FiO2 03/15/17 16:00 97.2 67 16 117/59 98 Nasal Cannula 3.0 03/15/17 07:26 32 Laboratory Tests Test 03/15/17 06:30 White Blood Count 5.1 K/UL (4.8-10.8) Red Blood Count 2.61 M/UL (4.20-5.40) L Hemoglobin 8.4 G/DL (12.0-16.0) L Hematocrit 26.1 % (37.0-47.0) L Mean Corpuscular Volume 100 FL (80-99) H Mean Corpuscular Hemoglobin 32.3 PG (27.0-31.0) H Mean Corpuscular Hemoglobin Concent 32.3 G/DL (32.0-36.0) Red Cell Distribution Width 11.9 % (11.6-14.8) Platelet Count 191 K/UL (150-450) Mean Platelet Volume 7.3 FL (6.5-10.1) Neutrophils (%) (Auto) 60.0 % (45.0-75.0) Lymphocytes (%) (Auto) 26.6 % (20.0-45.0) Monocytes (%) (Auto) 11.1 % (1.0-10.0) H Eosinophils (%) (Auto) 1.9 % (0.0-3.0) Basophils (%) (Auto) 0.4 % (0.0-2.0) Sodium Level 136 MMOL/L (136-145) Potassium Level 3.7 MMOL/L (3.5-5.1) Chloride Level 100 MMOL/L (98-107) Carbon Dioxide Level 32 MMOL/L (21-32) Anion Gap 4 mmol/L (5-15) L Blood Urea Nitrogen 16 mg/dL (7-18) Creatinine 0.6 MG/DL (0.55-1.30) Estimat Glomerular Filtration Rate mL/min (>60) Glucose Level 101 MG/DL (74-106) Calcium Level 8.9 MG/DL (8.5-10.1) Intake and Output 03/15/17 03/16/17 19:00 07:00 # Bowel Movements 3 Objective General Appearance: WD/WN, no apparent distress, alert EENT: PERRL/EOMI, normal ENT inspection, TMs normal Neck: non-tender, normal alignment, supple, normal inspection Cardiovascular: normal peripheral pulses, normal rate, regular rhythm, no gallop/murmur, no JVD Respiratory/Chest: Nasal canula; chest wall non-tender, respiratory distress, decreased breath sounds, crackles/rales, rhonchi - bilaterally, expiratory wheezing Abdomen: normal bowel sounds, non tender, soft, no organomegaly, no mass Extremities: normal range of motion 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 (8) Pneumonia Assessment & Plan: D/C antibiotics - See ID and pulmonary notes. (9) COPD exacerbation Assessment & Plan: Continue IV solumedrol and xopenex/atrovent nebs. See pulmonary note. (10) Diastolic CHF Assessment & Plan: See cardiology note. 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 S/P intubation to aerate left lung-see pulmonary note. D/W pulmonary Dr Hernandez. Extubated 03/07 (14) Respiratory failure requiring intubation Assessment & Plan: Extubated 03/07/17; tolerating nasal canula (15) Dysphagia Assessment & Plan: Tolerating low sodium diet. See speech therapy note. Status: progressing, tolerating diet ZEB FUENTES Mar 15, 2017 17:06
[2017-03-15 20:00] VITALS: BP 132/64
[2017-03-16] VITALS: BP 122/62
[2017-03-16] MEDS: HydrALAZINE 10mg Tab NG SCH ×4 (01:01→17:57)
[2017-03-16 04:00] VITALS: BP 138/71
[2017-03-16 05:59] LABS: BASOPHILS % (AUTO) 0.4 % (0.0-2.0); EOSINOPHILS % (AUTO) 1.8 % (0.0-3.0); HEMATOCRIT 26.7 % (37.0-47.0); HEMOGLOBIN 8.7 G/DL (12.0-16.0); LYMPHOCYTES % (AUTO) 29.3 % (20.0-45.0); MEAN CORPUSCULAR VOLUME 99 FL (80-99); MONOCYTES % (AUTO) 11.8 % (1.0-10.0); NEUTROPHILS % (AUTO) 56.8 % (45.0-75.0); PLATELET COUNT 198 K/UL (150-450); RED BLOOD COUNT 2.69 M/UL (4.20-5.40); WHITE BLOOD COUNT 6.1 K/UL (4.8-10.8)
[2017-03-16 06:11] LABS: ANION GAP 3 mmol/L (5-15); BLOOD UREA NITROGEN 12 mg/dL (7-18); CALCIUM 9.1 MG/DL (8.5-10.1); CARBON DIOXIDE 33 MMOL/L (21-32); CHLORIDE 99 MMOL/L (98-107); CREATININE 0.8 MG/DL (0.55-1.30); POTASSIUM 3.5 MMOL/L (3.5-5.1); SODIUM 135 MMOL/L (136-145)
[2017-03-16] MEDS: Metoclopramide 10mg/2ml Inj IVP SCH ×3 (06:52→22:32)
[2017-03-16 08:00] VITALS: BP 113/60
[2017-03-16] MEDS: Lyrica 75mg cap ORAL SCH ×3 (08:24→17:57)
[2017-03-16] MEDS: Aspirin EC 81mg tab ORAL SCH (08:24)
[2017-03-16] MEDS: Morphine Sulfate 4mg/ml Inj IVP PRN ×3 (08:25→22:32)
[2017-03-16] MEDS: Allopurinol 100mg Tab ORAL SCH (08:25)
[2017-03-16] MEDS: Pantoprazole Inj IV SCH (08:26)
[2017-03-16] MEDS: Carvedilol 25mg Tab ORAL SCH ×2 (08:26→21:00)
--- NOTE | 2017-03-16 10:55 | General Progress Note ---
Assessment/Plan Status: stable - from renal stand Assessment/Plan Status: Acute renal failure- etiology? 1900 cc urine out after insertion of shi-- JOSE MIGUEL: Moderate right hydronephrosis. Acute on Chronic respiratory failure- extubated now HTN High Cholestrol Pneumonia COPD , exac. Diastolic CHF, Mod MR h/o C dif colitis h/o Breast Ca Anemia Pulm HTN Moderate Plan: now extubated- post extubation care adjust BP meds K and Phos supplement as needed pulm support Allopurinol continue Shi- Avoid nephrotoxics JOSE MIGUEL: Moderate right hydronephrosis. ? Dc planning ? Subjective ROS Limited/Unobtainable: No Constitutional: Reports: malaise, weakness Allergies: Coded Allergies: TETRACYCLINE (Unverified Allergy, Unknown, 07/24/14) Objective Last 24 Hour Vital Signs Date Time Temp Pulse Resp B/P (MAP) Pulse Ox O2 Delivery O2 Flow Rate FiO2 03/16/17 08:26 74 128/68 03/16/17 08:25 74 128/69 03/16/17 08:00 97.0 78 18 113/60 94 Nasal Cannula 4.0 03/16/17 07:49 74 03/16/17 07:35 Nasal Cannula 3.0 32 03/16/17 07:35 98 Nasal Cannula 3.0 32 03/16/17 06:53 138/71 03/16/17 04:00 81 03/16/17 04:00 98.2 80 18 138/71 98 Nasal Cannula 3.0 03/16/17 01:01 122/64 03/16/17 00:00 82 03/16/17 00:00 96.8 80 20 122/62 97 Nasal Cannula 3.0 03/15/17 23:46 96.8 03/15/17 22:22 70 132/64 03/15/17 20:00 70 03/15/17 20:00 96.8 69 16 132/64 96 Nasal Cannula 3.0 03/15/17 19:50 97 Nasal Cannula 3.0 32 03/15/17 19:50 Nasal Cannula 3.0 32 03/15/17 18:00 108/55 03/15/17 16:00 97.2 67 16 117/59 98 Nasal Cannula 3.0 03/15/17 15:20 72 03/15/17 11:38 102/51 03/15/17 11:22 74 03/15/17 11:22 97.3 77 20 114/59 98 Nasal Cannula Intake and Output 03/16/17 03/17/17 19:00 07:00 # Bowel Movements 1 Laboratory Tests 03/16/17 03:50: White Blood Count 6.1, Red Blood Count 2.69L, Hemoglobin 8.7L, Hematocrit 26.7L , Mean Corpuscular Volume 99, Mean Corpuscular Hemoglobin 32.2H, Mean Corpuscular Hemoglobin Concent 32.4, Red Cell Distribution Width 12.0, Platelet Count 198, Mean Platelet Volume 6.5, Neutrophils (%) (Auto) 56.8, Lymphocytes (% ) (Auto) 29.3, Monocytes (%) (Auto) 11.8H, Eosinophils (%) (Auto) 1.8, Basophils (%) (Auto) 0.4, Sodium Level 135L, Potassium Level 3.5, Chloride Level 99, Carbon Dioxide Level 33H, Anion Gap 3L, Blood Urea Nitrogen 12, Creatinine 0.8, Estimat Glomerular Filtration Rate , Glucose Level 114H, Calcium Level 9.1 Height (Feet): 5 Height (Inches): 7.00 Weight (Pounds): 114 General Appearance: no apparent distress Neck: normal alignment Respiratory/Chest: decreased breath sounds Abdomen: soft Objective no edema- no change in PE GENARO DUARTE Mar 16, 2017 10:55
--- NOTE | 2017-03-16 11:06 | Infectious Diseases Prog Note ---
Assessment/Plan Assessment/Plan Assessment/Plan Abx: IV Vanco 02/15-03/01 Cefepime 02/15-02/18 Meropenem 02/18-03/03 Assesment: Low grade, SP Ucx >100k yeast (colonizer) No evid of pneumonia at this time - SP bronch 02/26 (collected 02/26, however received on the lab 03/03??): BAL cx NTD -CXR 03/03: Stable bilateral interstitial and alveolar opacities, probable small left pleural effusion, elevation left hemidiaphragm - CT Chest 02/24: Near-complete occlusion of the left mainstem bronchus and proximal lobar bronchi, probably by debris. Extensive resultant atelectasis and consolidation of nearly the entire left lung. Less extensive consolidation within the right lung, nonspecific as regards etiology, likely secondary to pneumonia or edema Crypt Ag serum neg; -sp cx 03/06 <1+ Proteus Mirabilis (S Ancef/CTX, bactrim; R Cipro/levo); s/p recent PNA tx CXR 03/05: There is suggestion of slightly increased pleural fluid on the left. Hazy opacity in the right lung is stable Leukocytosis, mild - recurrent, (s/p steroids 03/07) Swallow eval : Positive for aspiration and penetration of thin liquid barium Acute hypoxic resp failure, SP Intubated 02/26; extubated 03/07 -venous duplex 02/16 no DVT L pleural effusion - improved COPD on home O2 Hx of Cdiff DM2 Chronic abd pain hx of MRSA bacteremia 07/2015 TCA allergy Full Code fibromyalgia, HTN, HLD, R breast cancer,Tobacco abuse (stopped 4 years ago), Anxiety, AOCD Plan: -Continue to monitor off abx; if febrile, increased leukocytosis, oxygen requirements or worsenign CXR- start IV Ceftriaxone for Proteus on sputum -s/p 14d IV Meropenem 03/03 -s/p 14 d IV Vancomycin 03/01 -s/p 6d prophylactic PO vanco 02/21 -s/p 4 d Cefepime 02/18 -f/u Cocci ab -Monitor CBC/BMP, temperatures -Aspiration precautions - vent support, wean as tolerated Subjective Constitutional: Denies: no symptoms, fever, chills, fatigue, anorexia, drenching sweats, other Allergies: Coded Allergies: TETRACYCLINE (Unverified Allergy, Unknown, 3/16/15) Subjective comfortable Objective Vital Signs Last 24 Hour Vital Signs Date Time Temp Pulse Resp B/P (MAP) Pulse Ox O2 Delivery O2 Flow Rate FiO2 03/16/17 08:26 74 128/68 03/16/17 08:25 74 128/69 03/16/17 08:00 97.0 78 18 113/60 94 Nasal Cannula 4.0 03/16/17 07:49 74 03/16/17 07:35 Nasal Cannula 3.0 32 03/16/17 07:35 98 Nasal Cannula 3.0 32 03/16/17 06:53 138/71 03/16/17 04:00 81 03/16/17 04:00 98.2 80 18 138/71 98 Nasal Cannula 3.0 03/16/17 01:01 122/64 03/16/17 00:00 82 03/16/17 00:00 96.8 80 20 122/62 97 Nasal Cannula 3.0 03/15/17 23:46 96.8 03/15/17 22:22 70 132/64 03/15/17 20:00 70 03/15/17 20:00 96.8 69 16 132/64 96 Nasal Cannula 3.0 03/15/17 19:50 97 Nasal Cannula 3.0 32 03/15/17 19:50 Nasal Cannula 3.0 32 03/15/17 18:00 108/55 03/15/17 16:00 97.2 67 16 117/59 98 Nasal Cannula 3.0 03/15/17 15:20 72 03/15/17 11:38 102/51 03/15/17 11:22 74 03/15/17 11:22 97.3 77 20 114/59 98 Nasal Cannula Height (Feet): 5 Height (Inches): 7.00 Weight (Pounds): 114 HEENT: anicteric Respiratory/Chest: no respiratory distress Cardiovascular: regular rhythm Abdomen: no organomegaly Laboratory Tests Test 03/16/17 03:50 White Blood Count 6.1 K/UL (4.8-10.8) Red Blood Count 2.69 M/UL (4.20-5.40) L Hemoglobin 8.7 G/DL (12.0-16.0) L Hematocrit 26.7 % (37.0-47.0) L Mean Corpuscular Volume 99 FL (80-99) Mean Corpuscular Hemoglobin 32.2 PG (27.0-31.0) H Mean Corpuscular Hemoglobin Concent 32.4 G/DL (32.0-36.0) Red Cell Distribution Width 12.0 % (11.6-14.8) Platelet Count 198 K/UL (150-450) Mean Platelet Volume 6.5 FL (6.5-10.1) Neutrophils (%) (Auto) 56.8 % (45.0-75.0) Lymphocytes (%) (Auto) 29.3 % (20.0-45.0) Monocytes (%) (Auto) 11.8 % (1.0-10.0) H Eosinophils (%) (Auto) 1.8 % (0.0-3.0) Basophils (%) (Auto) 0.4 % (0.0-2.0) Sodium Level 135 MMOL/L (136-145) L Potassium Level 3.5 MMOL/L (3.5-5.1) Chloride Level 99 MMOL/L (98-107) Carbon Dioxide Level 33 MMOL/L (21-32) H Anion Gap 3 mmol/L (5-15) L Blood Urea Nitrogen 12 mg/dL (7-18) Creatinine 0.8 MG/DL (0.55-1.30) Estimat Glomerular Filtration Rate mL/min (>60) Glucose Level 114 MG/DL (74-106) H Calcium Level 9.1 MG/DL (8.5-10.1) Current Medications Medications (Trade) Dose Ordered Sig/Wilner Route PRN Reason Start Time Stop Time Status Last Admin Dose Admin Acetaminophen (Tylenol) 650 mg Q4H PRN ORAL Fever/Headache/Mild Pain 03/08/17 20:00 04/07/17 23:59 Allopurinol (Zyloprim) 100 mg DAILY ORAL 03/15/17 09:00 04/14/17 08:59 03/16/17 08:25 Amlodipine Besylate (Norvasc) 10 mg DAILY ORAL 03/15/17 09:00 04/14/17 08:59 03/16/17 08:25 Aspirin (Ecotrin) 81 mg DAILY ORAL 03/09/17 09:00 03/29/17 23:59 03/16/17 08:24 Bisacodyl (Dulcolax) 10 mg DAILYPRN PRN RECTAL Constipation Third Line Agent 03/08/17 18:15 04/07/17 23:59 Carvedilol (Coreg) 25 mg Q12HR ORAL 03/05/17 21:00 04/04/17 20:59 03/16/17 08:26 Dextrose (Dextrose 50%) STAT PRN IV Hypoglycemia 02/25/17 15:15 03/17/17 15:14 Escitalopram Oxalate (Lexapro) 10 mg DAILY ORAL 03/14/17 14:15 04/13/17 14:14 03/16/17 08:25 Haloperidol Lactate (Haldol) 2 mg Q4H PRN IM Agitation 02/25/17 15:15 03/27/17 15:14 03/08/17 15:58 Hydralazine HCl (Apresoline) 10 mg Q6HR NG 03/05/17 12:00 04/04/17 11:59 03/16/17 06:53 Hydralazine HCl (Apresoline) 25 mg Q4H PRN ORAL SBP > 160mmHg 02/25/17 15:15 03/27/17 15:14 03/04/17 08:30 Lidocaine (Xylocaine 1% MPF 5ml) 10 ml Q4H PRN HHN cough 02/25/17 15:15 03/19/17 15:14 Metoclopramide HCl (Reglan) 5 mg Q8HR IVP 03/04/17 22:00 04/03/17 21:59 03/16/17 06:52 Morphine Sulfate (Morphine Sulfate) 2 mg Q4H PRN IVP Pain 4-10 03/14/17 17:15 03/21/17 17:14 03/16/17 08:25 Ondansetron HCl (Zofran) 4 mg Q6H PRN IVP Nausea & Vomiting 02/25/17 15:15 03/17/17 15:14 03/16/17 08:29 Pantoprazole (Protonix) 40 mg DAILY IV 02/27/17 09:00 03/29/17 08:59 03/16/17 08:26 Polyethylene Glycol (Miralax) 17 gm DAILYPRN PRN ORAL Constipation First line agent 02/25/17 15:15 03/17/17 15:14 Pravastatin Sodium (Pravachol) 20 mg BEDTIME ORAL 02/25/17 21:00 03/18/17 20:59 03/14/17 21:33 Pregabalin (Lyrica) 150 mg THREE TIMES A DAY ORAL 02/25/17 18:00 03/18/17 12:59 03/16/17 08:24 Promethazine HCl/ Codeine (Phenergan with Codeine) 5 ml Q4H PRN ORAL UNRELIEVED COUGH 02/25/17 15:15 03/18/17 15:14 Ranitidine HCl (Zantac) 150 mg QPM ORAL 02/25/17 16:30 03/27/17 16:29 03/15/17 18:40 ORLANDO RODRIGUEZ M.D. Mar 16, 2017 11:06
[2017-03-16 12:00] VITALS: BP 114/58
--- NOTE | 2017-03-16 13:15 | Pulmonology Progress Note ---
Assessment/Plan Problems: (1) Acute and chronic respiratory failure ([id number]) (2) COPD exacerbation (3) Pneumonia (4) Fibromyalgia (5) History of breast cancer (6) Limited mobility Assessment/Plan looks better stabke now on 2 liters NC more aggressive Chest PT incentive spirometry advance diet as tolerated pt/waldemar Subjective ROS Limited/Unobtainable: No Constitutional: Reports: no symptoms HEENT: Repors: no symptoms Respiratory: Reports: no symptoms Allergies: Coded Allergies: TETRACYCLINE (Unverified Allergy, Unknown, 07/24/14) Objective Last 24 Hour Vital Signs Date Time Temp Pulse Resp B/P (MAP) Pulse Ox O2 Delivery O2 Flow Rate FiO2 03/16/17 12:31 114/58 03/16/17 12:00 70 03/16/17 12:00 97.9 72 20 114/58 98 Nasal Cannula 4.0 03/16/17 08:26 74 128/68 03/16/17 08:25 74 128/69 03/16/17 08:00 97.0 78 18 113/60 94 Nasal Cannula 4.0 03/16/17 07:49 74 03/16/17 07:35 Nasal Cannula 3.0 32 03/16/17 07:35 98 Nasal Cannula 3.0 32 03/16/17 06:53 138/71 03/16/17 04:00 81 03/16/17 04:00 98.2 80 18 138/71 98 Nasal Cannula 3.0 03/16/17 01:01 122/64 03/16/17 00:00 82 03/16/17 00:00 96.8 80 20 122/62 97 Nasal Cannula 3.0 03/15/17 23:46 96.8 03/15/17 22:22 70 132/64 03/15/17 20:00 70 03/15/17 20:00 96.8 69 16 132/64 96 Nasal Cannula 3.0 03/15/17 19:50 97 Nasal Cannula 3.0 32 03/15/17 19:50 Nasal Cannula 3.0 32 03/15/17 18:00 108/55 03/15/17 16:00 97.2 67 16 117/59 98 Nasal Cannula 3.0 03/15/17 15:20 72 Intake and Output 03/16/17 03/17/17 19:00 07:00 # Bowel Movements 1 General Appearance: WD/WN HEENT: normocephalic, atraumatic Respiratory/Chest: chest wall non-tender, lungs clear Breasts: no masses Cardiovascular: normal peripheral pulses Abdomen: normal bowel sounds, soft, non tender Genitourinary: normal external genitalia Extremities: no cyanosis Skin: no rash 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 Lymphatic: no neck adenopathy Laboratory Tests 03/16/17 03:50: White Blood Count 6.1, Red Blood Count 2.69L, Hemoglobin 8.7L, Hematocrit 26.7L , Mean Corpuscular Volume 99, Mean Corpuscular Hemoglobin 32.2H, Mean Corpuscular Hemoglobin Concent 32.4, Red Cell Distribution Width 12.0, Platelet Count 198, Mean Platelet Volume 6.5, Neutrophils (%) (Auto) 56.8, Lymphocytes (% ) (Auto) 29.3, Monocytes (%) (Auto) 11.8H, Eosinophils (%) (Auto) 1.8, Basophils (%) (Auto) 0.4, Sodium Level 135L, Potassium Level 3.5, Chloride Level 99, Carbon Dioxide Level 33H, Anion Gap 3L, Blood Urea Nitrogen 12, Creatinine 0.8, Estimat Glomerular Filtration Rate , Glucose Level 114H, Calcium Level 9.1 Current Medications Medications (Trade) Dose Ordered Sig/Wilner Route PRN Reason Start Time Stop Time Status Last Admin Dose Admin Acetaminophen (Tylenol) 650 mg Q4H PRN ORAL Fever/Headache/Mild Pain 03/08/17 20:00 04/07/17 23:59 Allopurinol (Zyloprim) 100 mg DAILY ORAL 03/15/17 09:00 04/14/17 08:59 03/16/17 08:25 Amlodipine Besylate (Norvasc) 10 mg DAILY ORAL 03/15/17 09:00 04/14/17 08:59 03/16/17 08:25 Aspirin (Ecotrin) 81 mg DAILY ORAL 03/09/17 09:00 03/29/17 23:59 03/16/17 08:24 Bisacodyl (Dulcolax) 10 mg DAILYPRN PRN RECTAL Constipation Third Line Agent 03/08/17 18:15 04/07/17 23:59 Carvedilol (Coreg) 25 mg Q12HR ORAL 03/05/17 21:00 04/04/17 20:59 03/16/17 08:26 Dextrose (Dextrose 50%) STAT PRN IV Hypoglycemia 02/25/17 15:15 03/17/17 15:14 Escitalopram Oxalate (Lexapro) 10 mg DAILY ORAL 03/14/17 14:15 04/13/17 14:14 03/16/17 08:25 Haloperidol Lactate (Haldol) 2 mg Q4H PRN IM Agitation 02/25/17 15:15 03/27/17 15:14 03/08/17 15:58 Hydralazine HCl (Apresoline) 10 mg Q6HR NG 03/05/17 12:00 04/04/17 11:59 03/16/17 12:31 Hydralazine HCl (Apresoline) 25 mg Q4H PRN ORAL SBP > 160mmHg 02/25/17 15:15 03/27/17 15:14 03/04/17 08:30 Lidocaine (Xylocaine 1% MPF 5ml) 10 ml Q4H PRN HHN cough 02/25/17 15:15 03/19/17 15:14 Lorazepam (Ativan 2mg/ml 1ml) 0.5 mg Q4H PRN IV For Anxiety 03/16/17 12:45 03/23/17 12:44 UNV Metoclopramide HCl (Reglan) 5 mg Q8HR IVP 03/04/17 22:00 04/03/17 21:59 03/16/17 06:52 Morphine Sulfate (Morphine Sulfate) 2 mg Q4H PRN IVP Pain 4-10 03/14/17 17:15 03/21/17 17:14 03/16/17 12:34 Ondansetron HCl (Zofran) 4 mg Q6H PRN IVP Nausea & Vomiting 02/25/17 15:15 03/17/17 15:14 03/16/17 08:29 Pantoprazole (Protonix) 40 mg DAILY IV 02/27/17 09:00 03/29/17 08:59 03/16/17 08:26 Polyethylene Glycol (Miralax) 17 gm DAILYPRN PRN ORAL Constipation First line agent 02/25/17 15:15 03/17/17 15:14 Pravastatin Sodium (Pravachol) 20 mg BEDTIME ORAL 02/25/17 21:00 03/18/17 20:59 03/14/17 21:33 Pregabalin (Lyrica) 150 mg THREE TIMES A DAY ORAL 02/25/17 18:00 03/18/17 12:59 03/16/17 12:24 Promethazine HCl/ Codeine (Phenergan with Codeine) 5 ml Q4H PRN ORAL UNRELIEVED COUGH 02/25/17 15:15 03/18/17 15:14 Ranitidine HCl (Zantac) 150 mg QPM ORAL 02/25/17 16:30 03/27/17 16:29 03/15/17 18:40 TWIN FONTANEZ Mar 16, 2017 13:15
[2017-03-16] MEDS ORDERED: LORazepam Inj 2mg/ml 1ml IV PRN (14:00)
--- NOTE | 2017-03-16 15:07 | Diagnostic Imaging Report ---
Indication: Dyspnea Comparison: 03/13/17 A single view chest radiograph was obtained. Findings: Interstitial pulmonary edema again demonstrated without significant change. Heart size is prominent. Left costophrenic angle remains blunted. Impression: No change compared to the prior exam. Interstitial: Edema. Left pleural effusion suspected
[2017-03-16 16:00] VITALS: BP 124/55
--- NOTE | 2017-03-16 18:40 | Cardiology Progress Note ---
Assessment/Plan Assessment/Plan 1. Respiratory failure. 2. Chronic obstructive pulmonary disease exacerbation. 3. Questionable pneumonia. 4. History of mitral regurgitation of significant degree. 5. History of subdural hematomas and intracranial hemorrhage. 6. History of breast cancer. 7. Anemia. 8. History of Clostridium difficile colitis. 9. History of anxiety. 10. Sinus tachycardia secondary to above. 11. Htn 12. CHF acute diastolic 13. l m bronchus occlusion with debris 14. lung collapase 15 Hypotension resolved 16. alkalosis resolved labs reviewed bp ok today tele sinus hhn cpt snf tranfer plans noted Subjective ROS Limited/Unobtainable: Yes Objective Last 24 Hour Vital Signs Date Time Temp Pulse Resp B/P (MAP) Pulse Ox O2 Delivery O2 Flow Rate FiO2 03/16/17 17:57 126/56 03/16/17 16:00 97.3 67 20 124/55 99 Nasal Cannula 3.0 03/16/17 16:00 79 03/16/17 13:00 97.9 03/16/17 13:00 97.9 03/16/17 12:31 114/58 03/16/17 12:00 70 03/16/17 12:00 97.9 72 20 114/58 98 Nasal Cannula 4.0 03/16/17 08:26 74 128/68 03/16/17 08:25 74 128/69 03/16/17 08:00 97.0 78 18 113/60 94 Nasal Cannula 4.0 03/16/17 07:49 74 03/16/17 07:35 Nasal Cannula 3.0 32 03/16/17 07:35 98 Nasal Cannula 3.0 32 03/16/17 06:53 138/71 03/16/17 04:00 81 03/16/17 04:00 98.2 80 18 138/71 98 Nasal Cannula 3.0 03/16/17 01:01 122/64 03/16/17 00:00 82 03/16/17 00:00 96.8 80 20 122/62 97 Nasal Cannula 3.0 03/15/17 22:22 70 132/64 03/15/17 20:00 70 03/15/17 20:00 96.8 69 16 132/64 96 Nasal Cannula 3.0 03/15/17 19:50 97 Nasal Cannula 3.0 32 03/15/17 19:50 Nasal Cannula 3.0 32 General Appearance: no apparent distress, other - sleeping Intake and Output 03/16/17 03/17/17 19:00 07:00 Output Total 700 ml Balance -700 ml Output Urine Total 700 ml # Bowel Movements 1 Laboratory Tests Test 03/16/17 03:50 White Blood Count 6.1 K/UL (4.8-10.8) Red Blood Count 2.69 M/UL (4.20-5.40) L Hemoglobin 8.7 G/DL (12.0-16.0) L Hematocrit 26.7 % (37.0-47.0) L Mean Corpuscular Volume 99 FL (80-99) Mean Corpuscular Hemoglobin 32.2 PG (27.0-31.0) H Mean Corpuscular Hemoglobin Concent 32.4 G/DL (32.0-36.0) Red Cell Distribution Width 12.0 % (11.6-14.8) Platelet Count 198 K/UL (150-450) Mean Platelet Volume 6.5 FL (6.5-10.1) Neutrophils (%) (Auto) 56.8 % (45.0-75.0) Lymphocytes (%) (Auto) 29.3 % (20.0-45.0) Monocytes (%) (Auto) 11.8 % (1.0-10.0) H Eosinophils (%) (Auto) 1.8 % (0.0-3.0) Basophils (%) (Auto) 0.4 % (0.0-2.0) Sodium Level 135 MMOL/L (136-145) L Potassium Level 3.5 MMOL/L (3.5-5.1) Chloride Level 99 MMOL/L (98-107) Carbon Dioxide Level 33 MMOL/L (21-32) H Anion Gap 3 mmol/L (5-15) L Blood Urea Nitrogen 12 mg/dL (7-18) Creatinine 0.8 MG/DL (0.55-1.30) Estimat Glomerular Filtration Rate mL/min (>60) Glucose Level 114 MG/DL (74-106) H Calcium Level 9.1 MG/DL (8.5-10.1) JEFFERSON ROMEO Mar 16, 2017 18:40
--- NOTE | 2017-03-16 18:48 | Internal Med Progress Note ---
Subjective Date of Service: Mar 16, 2017 Physician Name Zeb Fuentes Attending Physician Jun Cedillo MD Current Medications Medications (Trade) Dose Ordered Sig/Wilner Route PRN Reason Start Time Stop Time Status Last Admin Dose Admin Acetaminophen (Tylenol) 650 mg Q4H PRN ORAL Fever/Headache/Mild Pain 03/08/17 20:00 04/07/17 23:59 Allopurinol (Zyloprim) 100 mg DAILY ORAL 03/15/17 09:00 04/14/17 08:59 03/16/17 08:25 Amlodipine Besylate (Norvasc) 10 mg DAILY ORAL 03/15/17 09:00 04/14/17 08:59 03/16/17 08:25 Aspirin (Ecotrin) 81 mg DAILY ORAL 03/09/17 09:00 03/29/17 23:59 03/16/17 08:24 Bisacodyl (Dulcolax) 10 mg DAILYPRN PRN RECTAL Constipation Third Line Agent 03/08/17 18:15 04/07/17 23:59 Carvedilol (Coreg) 25 mg Q12HR ORAL 03/05/17 21:00 04/04/17 20:59 03/16/17 08:26 Dextrose (Dextrose 50%) STAT PRN IV Hypoglycemia 02/25/17 15:15 03/17/17 15:14 Escitalopram Oxalate (Lexapro) 10 mg DAILY ORAL 03/14/17 14:15 04/13/17 14:14 03/16/17 08:25 Haloperidol Lactate (Haldol) 2 mg Q4H PRN IM Agitation 02/25/17 15:15 03/27/17 15:14 03/08/17 15:58 Hydralazine HCl (Apresoline) 10 mg Q6HR NG 03/05/17 12:00 04/04/17 11:59 03/16/17 17:57 Hydralazine HCl (Apresoline) 25 mg Q4H PRN ORAL SBP > 160mmHg 02/25/17 15:15 03/27/17 15:14 03/04/17 08:30 Lidocaine (Xylocaine 1% MPF 5ml) 10 ml Q4H PRN HHN cough 02/25/17 15:15 03/19/17 15:14 Lorazepam (Ativan 2mg/ml 1ml) 0.5 mg Q4H PRN IV For Anxiety 03/16/17 14:00 03/23/17 13:59 Metoclopramide HCl (Reglan) 5 mg Q8HR IVP 03/04/17 22:00 04/03/17 21:59 03/16/17 14:06 Morphine Sulfate (Morphine Sulfate) 2 mg Q4H PRN IVP Pain 4-10 03/14/17 17:15 03/21/17 17:14 03/16/17 12:34 Ondansetron HCl (Zofran) 4 mg Q6H PRN IVP Nausea & Vomiting 02/25/17 15:15 03/17/17 15:14 03/16/17 15:37 Pantoprazole (Protonix) 40 mg DAILY IV 02/27/17 09:00 03/29/17 08:59 03/16/17 08:26 Polyethylene Glycol (Miralax) 17 gm DAILYPRN PRN ORAL Constipation First line agent 02/25/17 15:15 03/17/17 15:14 Pravastatin Sodium (Pravachol) 20 mg BEDTIME ORAL 02/25/17 21:00 03/18/17 20:59 03/14/17 21:33 Pregabalin (Lyrica) 150 mg THREE TIMES A DAY ORAL 02/25/17 18:00 03/18/17 12:59 03/16/17 17:57 Promethazine HCl/ Codeine (Phenergan with Codeine) 5 ml Q4H PRN ORAL UNRELIEVED COUGH 02/25/17 15:15 03/18/17 15:14 Ranitidine HCl (Zantac) 150 mg QPM ORAL 02/25/17 16:30 03/27/17 16:29 03/16/17 15:37 Allergies: Coded Allergies: TETRACYCLINE (Unverified Allergy, Unknown, 07/24/14) ROS Limited/Unobtainable: No Constitutional: Reports: no symptoms HEENT: Reports: no symptoms Cardiovascular: Reports: no symptoms Respiratory: Reports: no symptoms Gastrointestinal/Abdominal: Reports: no symptoms Genitourinary: Reports: no symptoms Neurologic/Psychiatric: Reports: no symptoms Subjective 76 YO F admitted with shortness of breath. Now pneumonia. Cover for Int Med- Dr Cedillo. CAYETANO. Tolerating Nasal canula. Objective Last Vital Signs Date Time Temp Pulse Resp B/P (MAP) Pulse Ox O2 Delivery O2 Flow Rate FiO2 03/16/17 17:57 126/56 03/16/17 16:00 97.3 67 20 99 Nasal Cannula 3.0 03/16/17 07:35 32 Laboratory Tests Test 03/16/17 03:50 White Blood Count 6.1 K/UL (4.8-10.8) Red Blood Count 2.69 M/UL (4.20-5.40) L Hemoglobin 8.7 G/DL (12.0-16.0) L Hematocrit 26.7 % (37.0-47.0) L Mean Corpuscular Volume 99 FL (80-99) Mean Corpuscular Hemoglobin 32.2 PG (27.0-31.0) H Mean Corpuscular Hemoglobin Concent 32.4 G/DL (32.0-36.0) Red Cell Distribution Width 12.0 % (11.6-14.8) Platelet Count 198 K/UL (150-450) Mean Platelet Volume 6.5 FL (6.5-10.1) Neutrophils (%) (Auto) 56.8 % (45.0-75.0) Lymphocytes (%) (Auto) 29.3 % (20.0-45.0) Monocytes (%) (Auto) 11.8 % (1.0-10.0) H Eosinophils (%) (Auto) 1.8 % (0.0-3.0) Basophils (%) (Auto) 0.4 % (0.0-2.0) Sodium Level 135 MMOL/L (136-145) L Potassium Level 3.5 MMOL/L (3.5-5.1) Chloride Level 99 MMOL/L (98-107) Carbon Dioxide Level 33 MMOL/L (21-32) H Anion Gap 3 mmol/L (5-15) L Blood Urea Nitrogen 12 mg/dL (7-18) Creatinine 0.8 MG/DL (0.55-1.30) Estimat Glomerular Filtration Rate mL/min (>60) Glucose Level 114 MG/DL (74-106) H Calcium Level 9.1 MG/DL (8.5-10.1) Intake and Output 03/16/17 03/17/17 19:00 07:00 Output Total 700 ml Balance -700 ml Output Urine Total 700 ml # Bowel Movements 1 Objective General Appearance: WD/WN, no apparent distress, alert EENT: PERRL/EOMI, normal ENT inspection, TMs normal Neck: non-tender, normal alignment, supple, normal inspection Cardiovascular: normal peripheral pulses, normal rate, regular rhythm, no gallop/murmur, no JVD Respiratory/Chest: Nasal canula; chest wall non-tender, respiratory distress, decreased breath sounds, crackles/rales, rhonchi - bilaterally, expiratory wheezing Abdomen: normal bowel sounds, non tender, soft, no organomegaly, no mass Extremities: normal range of motion Neurologic: impregnator and drier II-XII grossly normal, no motor/sensory deficits Skin: normal pigmentation, warm/dry Assessment/Plan Problem List: (1) Allergic rhinitis (2) Hypertension Assessment & Plan: Continue lisinopril and hydralazine (3) Hypercholesteremia Assessment & Plan: Continue pravachol (4) Osteoporosis (5) Anxiety (6) Cough (7) SOB (shortness of breath) Assessment & Plan: Due to pneumonia and COPD; continue nasal canula per pulmonary. (8) Pneumonia Assessment & Plan: D/C antibiotics - See ID and pulmonary notes. (9) COPD exacerbation Assessment & Plan: Continue IV solumedrol and xopenex/atrovent nebs. See pulmonary note. (10) Diastolic CHF Assessment & Plan: See cardiology note. 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 S/P intubation to aerate left lung-see pulmonary note. D/W pulmonary Dr Hernandez. Extubated 03/07 (14) Respiratory failure requiring intubation Assessment & Plan: Extubated 03/07/17; tolerating nasal canula (15) Dysphagia Assessment & Plan: Tolerating low sodium diet. See speech therapy note. Status: stable Assessment/Plan Transfer to med/surg ZEB FUENTES Mar 16, 2017 18:47
[2017-03-16 20:00] VITALS: BP 110/60
[2017-03-17] VITALS: BP 99/51
--- NOTE | 2017-03-17 00:30 | General Progress Note ---
Assessment/Plan Status: stable Assessment/Plan anxiety d/o' encephalopathy -cont current meds -provided ro/st -cont ativan Subjective Neurologic/Psychiatric: Reports: anxiety, depressed, emotional problems Allergies: Coded Allergies: TETRACYCLINE (Unverified Allergy, Unknown, 07/24/14) Subjective the pt wasasleep asking for pain meds Objective Last 24 Hour Vital Signs Date Time Temp Pulse Resp B/P (MAP) Pulse Ox O2 Delivery O2 Flow Rate FiO2 03/17/17 00:00 99/51 03/16/17 23:02 97.7 03/16/17 21:00 64 110/60 03/16/17 20:00 64 03/16/17 20:00 97.7 67 20 110/60 99 Nasal Cannula 3.0 03/16/17 19:00 97 Nasal Cannula 3.0 32 03/16/17 19:00 Nasal Cannula 3.0 32 03/16/17 18:56 97.3 03/16/17 17:57 126/56 03/16/17 16:00 97.3 67 20 124/55 99 Nasal Cannula 3.0 03/16/17 16:00 79 03/16/17 12:31 114/58 03/16/17 12:00 70 03/16/17 12:00 97.9 72 20 114/58 98 Nasal Cannula 4.0 03/16/17 08:26 74 128/68 03/16/17 08:25 74 128/69 03/16/17 08:00 97.0 78 18 113/60 94 Nasal Cannula 4.0 03/16/17 07:49 74 03/16/17 07:35 Nasal Cannula 3.0 32 03/16/17 07:35 98 Nasal Cannula 3.0 32 03/16/17 06:53 138/71 03/16/17 04:00 81 03/16/17 04:00 98.2 80 18 138/71 98 Nasal Cannula 3.0 03/16/17 01:01 122/64 Laboratory Tests 03/16/17 03:50: White Blood Count 6.1, Red Blood Count 2.69L, Hemoglobin 8.7L, Hematocrit 26.7L , Mean Corpuscular Volume 99, Mean Corpuscular Hemoglobin 32.2H, Mean Corpuscular Hemoglobin Concent 32.4, Red Cell Distribution Width 12.0, Platelet Count 198, Mean Platelet Volume 6.5, Neutrophils (%) (Auto) 56.8, Lymphocytes (% ) (Auto) 29.3, Monocytes (%) (Auto) 11.8H, Eosinophils (%) (Auto) 1.8, Basophils (%) (Auto) 0.4, Sodium Level 135L, Potassium Level 3.5, Chloride Level 99, Carbon Dioxide Level 33H, Anion Gap 3L, Blood Urea Nitrogen 12, Creatinine 0.8, Estimat Glomerular Filtration Rate , Glucose Level 114H, Calcium Level 9.1 Height (Feet): 5 Height (Inches): 7.00 Weight (Pounds): 114 General Appearance: no apparent distress, alert, overweight Neurologic: alert, oriented x 3, responsive, normal mood/affect Wan Stern M.D. Mar 17, 2017 00:30
[2017-03-17 02:27] LABS: BASOPHILS % (AUTO) 0.3 % (0.0-2.0); EOSINOPHILS % (AUTO) 1.6 % (0.0-3.0); HEMATOCRIT 26.6 % (37.0-47.0); HEMOGLOBIN 8.5 G/DL (12.0-16.0); LYMPHOCYTES % (AUTO) 26.6 % (20.0-45.0); MEAN CORPUSCULAR VOLUME 100 FL (80-99); MONOCYTES % (AUTO) 10.4 % (1.0-10.0); PLATELET COUNT 188 K/UL (150-450); RED BLOOD COUNT 2.66 M/UL (4.20-5.40); WHITE BLOOD COUNT 6.9 K/UL (4.8-10.8)
[2017-03-17 02:39] LABS: ANION GAP 5 mmol/L (5-15); BLOOD UREA NITROGEN 13 mg/dL (7-18); CALCIUM 9.2 MG/DL (8.5-10.1); CARBON DIOXIDE 32 MMOL/L (21-32); CHLORIDE 99 MMOL/L (98-107); CREATININE 0.7 MG/DL (0.55-1.30); POTASSIUM 3.8 MMOL/L (3.5-5.1); SODIUM 136 MMOL/L (136-145)
[2017-03-17 04:00] VITALS: BP 101/49
[2017-03-17] MEDS: HydrALAZINE 10mg Tab NG SCH ×4 (05:42→17:13)
[2017-03-17] MEDS: Metoclopramide 10mg/2ml Inj IVP SCH ×3 (05:43→20:15)
[2017-03-17] MEDS ORDERED: HydrALAZINE 25mg tab ORAL PRN (07:15)
[2017-03-17] MEDS ORDERED: Promethazine/Codeine 5ml UD ORAL PRN (07:15)
[2017-03-17] MEDS ORDERED: Lidocaine 1% MPF 10mg/ml 5ml HHN PRN (07:15)
[2017-03-17] MEDS ORDERED: Haloperidol 5mg/ml Inj IM PRN (07:15)
[2017-03-17 08:15] VITALS: BP 115/68
[2017-03-17] MEDS: Aspirin EC 81mg tab ORAL SCH (08:44)
[2017-03-17] MEDS: Allopurinol 100mg Tab ORAL SCH (08:44)
[2017-03-17] MEDS: Lyrica 75mg cap ORAL SCH ×3 (08:45→17:12)
[2017-03-17] MEDS: Carvedilol 25mg Tab ORAL SCH ×2 (09:00→20:15)
[2017-03-17] MEDS ORDERED: Pantoprazole Inj IV SCH (09:00)
[2017-03-17] MEDS: Morphine Sulfate 4mg/ml Inj IVP PRN ×3 (09:01→20:17)
[2017-03-17] MEDS: LORazepam Inj 2mg/ml 1ml IV PRN ×2 (09:02→15:42)
--- NOTE | 2017-03-17 09:32 | Wound Nurse Progress Note ---
Wound RN Progress Note Wound Consult reassessment #1 Sacrococcygeal stage I pressure ulcer that extended to left and right buttocks- no further deterioration , site remains intact, noted slight redness still present. #2 Perineal area chemical burn- resolving, skin intact #3 Wart on supra pubic area - no change upon reassessment noted good progress. continue current treatment plan as previously recommended, continue preventative measures. Recommendation -Sacrococcygeal stage I pressure ulcer that extended to left and right buttocks and Perineal area chemical burn Cleanse with saline, pat dry, apply Triad cream, leave area open to air BID and PRN soiled/dislodged -Keep clean and dry -Turn and reposition -Offload both heels -Heel protector on both heels -Low air loss SPR mattress -Optimize nutrition -Assess and f/u accordingly for any changes upon skin reassessment skin remains intact, current treatment is effective. OLIVERIO COATES Mar 17, 2017 09:32
[2017-03-17 12:15] VITALS: BP 120/66
--- NOTE | 2017-03-17 13:57 | Infectious Diseases Prog Note ---
Assessment/Plan Assessment/Plan Assessment/Plan Abx: IV Vanco 02/15-03/01 Cefepime 02/15-02/18 Meropenem 02/18-03/03 Assesment: Low grade, SP Ucx >100k yeast (colonizer) No evid of pneumonia at this time - SP bronch 02/26 (collected 02/26, however received on the lab 03/03??): BAL cx NTD -CXR 03/03: Stable bilateral interstitial and alveolar opacities, probable small left pleural effusion, elevation left hemidiaphragm - CT Chest 02/24: Near-complete occlusion of the left mainstem bronchus and proximal lobar bronchi, probably by debris. Extensive resultant atelectasis and consolidation of nearly the entire left lung. Less extensive consolidation within the right lung, nonspecific as regards etiology, likely secondary to pneumonia or edema Crypt Ag serum neg; -sp cx 03/06 <1+ Proteus Mirabilis (S Ancef/CTX, bactrim; R Cipro/levo); s/p recent PNA tx CXR 03/05: There is suggestion of slightly increased pleural fluid on the left. Hazy opacity in the right lung is stable Leukocytosis, mild - recurrent, (s/p steroids 03/07) Swallow eval : Positive for aspiration and penetration of thin liquid barium Acute hypoxic resp failure, SP Intubated 02/26; extubated 03/07 -venous duplex 02/16 no DVT L pleural effusion - improved COPD on home O2 Hx of Cdiff DM2 Chronic abd pain hx of MRSA bacteremia 07/2015 TCA allergy Full Code fibromyalgia, HTN, HLD, R breast cancer,Tobacco abuse (stopped 4 years ago), Anxiety, AOCD Plan: -Continue to monitor off abx; -s/p 14d IV Meropenem 03/03 -s/p 14 d IV Vancomycin 03/01 -s/p 6d prophylactic PO vanco 02/21 -s/p 4 d Cefepime 02/18 -f/u Cocci ab -Monitor CBC/BMP, temperatures -Aspiration precautions - vent support, wean as tolerated Subjective Constitutional: Denies: no symptoms, fever, chills, fatigue, anorexia, drenching sweats, other Allergies: Coded Allergies: TETRACYCLINE (Unverified Allergy, Unknown, 07/24/14) Subjective comfortable Objective Vital Signs Last 24 Hour Vital Signs Date Time Temp Pulse Resp B/P (MAP) Pulse Ox O2 Delivery O2 Flow Rate FiO2 03/17/17 12:15 98.8 72 20 120/66 94 Room Air 03/17/17 12:00 120/66 03/17/17 09:31 98.6 03/17/17 09:31 98.6 03/17/17 08:15 98.6 80 17 115/68 Room Air 03/17/17 07:03 98 Nasal Cannula 3.0 32 03/17/17 07:03 Nasal Cannula 3.0 32 03/17/17 05:42 101/49 03/17/17 04:00 97.7 72 18 101/49 99 Nasal Cannula 3.0 03/17/17 04:00 72 03/17/17 00:00 99/51 03/17/17 00:00 97.9 79 20 99/51 99 Nasal Cannula 3.0 03/16/17 23:02 97.7 03/16/17 21:00 64 110/60 03/16/17 20:00 64 03/16/17 20:00 97.7 67 20 110/60 99 Nasal Cannula 3.0 03/16/17 19:00 97 Nasal Cannula 3.0 32 03/16/17 19:00 Nasal Cannula 3.0 32 03/16/17 18:56 97.3 03/16/17 17:57 126/56 03/16/17 16:00 97.3 67 20 124/55 99 Nasal Cannula 3.0 03/16/17 16:00 79 Height (Feet): 5 Height (Inches): 7.00 Weight (Pounds): 112 HEENT: atraumatic Respiratory/Chest: normal breath sounds Cardiovascular: regularly irregular Abdomen: no organomegaly Laboratory Tests Test 03/17/17 02:00 White Blood Count 6.9 K/UL (4.8-10.8) Red Blood Count 2.66 M/UL (4.20-5.40) L Hemoglobin 8.5 G/DL (12.0-16.0) L Hematocrit 26.6 % (37.0-47.0) L Mean Corpuscular Volume 100 FL (80-99) H Mean Corpuscular Hemoglobin 32.1 PG (27.0-31.0) H Mean Corpuscular Hemoglobin Concent 32.0 G/DL (32.0-36.0) Red Cell Distribution Width 12.0 % (11.6-14.8) Platelet Count 188 K/UL (150-450) Mean Platelet Volume 7.0 FL (6.5-10.1) Neutrophils (%) (Auto) 61.0 % (45.0-75.0) Lymphocytes (%) (Auto) 26.6 % (20.0-45.0) Monocytes (%) (Auto) 10.4 % (1.0-10.0) H Eosinophils (%) (Auto) 1.6 % (0.0-3.0) Basophils (%) (Auto) 0.3 % (0.0-2.0) Sodium Level 136 MMOL/L (136-145) Potassium Level 3.8 MMOL/L (3.5-5.1) Chloride Level 99 MMOL/L (98-107) Carbon Dioxide Level 32 MMOL/L (21-32) Anion Gap 5 mmol/L (5-15) Blood Urea Nitrogen 13 mg/dL (7-18) Creatinine 0.7 MG/DL (0.55-1.30) Estimat Glomerular Filtration Rate mL/min (>60) Glucose Level 119 MG/DL (74-106) H Calcium Level 9.2 MG/DL (8.5-10.1) Current Medications Medications (Trade) Dose Ordered Sig/Wilner Route PRN Reason Start Time Stop Time Status Last Admin Dose Admin Acetaminophen (Tylenol) 650 mg Q4H PRN ORAL Fever/Headache/Mild Pain 03/17/17 08:00 04/07/17 11:28 Allopurinol (Zyloprim) 100 mg DAILY ORAL 03/17/17 09:00 04/14/17 08:59 03/17/17 08:44 Amlodipine Besylate (Norvasc) 10 mg DAILY ORAL 03/17/17 09:00 04/14/17 08:59 Aspirin (Ecotrin) 81 mg DAILY ORAL 03/17/17 09:00 03/29/17 11:19 03/17/17 08:44 Bisacodyl (Dulcolax) 10 mg DAILYPRN PRN RECTAL Constipation Third Line Agent 03/17/17 18:15 04/07/17 11:28 Carvedilol (Coreg) 25 mg Q12HR ORAL 03/17/17 09:00 04/04/17 20:59 Dextrose (Dextrose 50%) STAT PRN IV Hypoglycemia 03/17/17 15:15 03/30/17 15:14 Escitalopram Oxalate (Lexapro) 10 mg DAILY ORAL 03/17/17 09:00 04/13/17 14:14 03/17/17 08:44 Haloperidol Lactate (Haldol) 2 mg Q4H PRN IM Agitation 03/17/17 07:15 03/27/17 15:14 Hydralazine HCl (Apresoline) 10 mg Q6HR NG 03/17/17 12:00 04/04/17 11:59 Hydralazine HCl (Apresoline) 25 mg Q4H PRN ORAL SBP > 160mmHg 03/17/17 07:15 03/27/17 15:14 Lidocaine (Xylocaine 1% MPF 5ml) 10 ml Q4H PRN HHN cough 03/17/17 07:15 03/19/17 15:14 Lorazepam (Ativan 2mg/ml 1ml) 0.5 mg Q4H PRN IV For Anxiety 03/17/17 09:00 03/24/17 08:59 03/17/17 09:02 Metoclopramide HCl (Reglan) 5 mg Q8HR IVP 03/17/17 14:00 04/03/17 21:59 03/17/17 13:08 Morphine Sulfate (Morphine Sulfate) 2 mg Q4H PRN IVP Pain 4-10 03/17/17 09:15 03/21/17 17:14 03/17/17 09:01 Ondansetron HCl (Zofran) 4 mg Q6H PRN IVP Nausea & Vomiting 03/17/17 09:15 03/17/17 15:14 Pantoprazole (Protonix) 40 mg DAILY IV 03/17/17 09:00 03/29/17 08:59 03/17/17 08:46 Polyethylene Glycol (Miralax) 17 gm DAILYPRN PRN ORAL Constipation First line agent 03/17/17 15:15 03/17/17 15:16 Pravastatin Sodium (Pravachol) 20 mg BEDTIME ORAL 03/17/17 21:00 03/18/17 20:59 Pregabalin (Lyrica) 150 mg THREE TIMES A DAY ORAL 03/17/17 09:00 03/18/17 12:59 03/17/17 13:09 Promethazine HCl/ Codeine (Phenergan with Codeine) 5 ml Q4H PRN ORAL UNRELIEVED COUGH 03/17/17 07:15 03/18/17 15:14 Ranitidine HCl (Zantac) 150 mg QPM ORAL 03/17/17 16:30 03/27/17 16:29 ORLANDO RODRIGUEZ M.D. Mar 17, 2017 13:57
--- NOTE | 2017-03-17 14:51 | Pulmonology Progress Note ---
Assessment/Plan Problems: (1) Acute and chronic respiratory failure ([id number]) (2) COPD exacerbation (3) Pneumonia (4) Fibromyalgia (5) History of breast cancer (6) Limited mobility Assessment/Plan looks better stabke now on 2 liters NC more aggressive Chest PT incentive spirometry advance diet as tolerated dc planning pt/waldemar Subjective ROS Limited/Unobtainable: No Interval Events: tolerating 2 liters of Nasal cannula Allergies: Coded Allergies: TETRACYCLINE (Unverified Allergy, Unknown, 07/24/14) Objective Last 24 Hour Vital Signs Date Time Temp Pulse Resp B/P (MAP) Pulse Ox O2 Delivery O2 Flow Rate FiO2 03/17/17 12:15 98.8 72 20 120/66 94 Room Air 03/17/17 12:00 120/66 03/17/17 09:31 98.6 03/17/17 09:31 98.6 03/17/17 08:15 98.6 80 17 115/68 Room Air 03/17/17 07:03 98 Nasal Cannula 3.0 32 03/17/17 07:03 Nasal Cannula 3.0 32 03/17/17 05:42 101/49 03/17/17 04:00 97.7 72 18 101/49 99 Nasal Cannula 3.0 03/17/17 04:00 72 03/17/17 00:00 99/51 03/17/17 00:00 97.9 79 20 99/51 99 Nasal Cannula 3.0 03/16/17 23:02 97.7 03/16/17 21:00 64 110/60 03/16/17 20:00 64 03/16/17 20:00 97.7 67 20 110/60 99 Nasal Cannula 3.0 03/16/17 19:00 97 Nasal Cannula 3.0 32 03/16/17 19:00 Nasal Cannula 3.0 32 03/16/17 18:56 97.3 03/16/17 17:57 126/56 03/16/17 16:00 97.3 67 20 124/55 99 Nasal Cannula 3.0 03/16/17 16:00 79 Intake and Output 03/17/17 03/18/17 19:00 07:00 Intake Total 240 ml Balance 240 ml Intake Oral 240 ml General Appearance: WD/WN, cachetic HEENT: normocephalic, atraumatic Respiratory/Chest: chest wall non-tender, crackles/rales Breasts: no masses Cardiovascular: normal peripheral pulses, normal rate Abdomen: normal bowel sounds, soft, non tender Genitourinary: normal external genitalia Extremities: no cyanosis Skin: no rash Lymphatic: no neck adenopathy Laboratory Tests 03/17/17 02:00: White Blood Count 6.9, Red Blood Count 2.66L, Hemoglobin 8.5L, Hematocrit 26.6L , Mean Corpuscular Volume 100H, Mean Corpuscular Hemoglobin 32.1H, Mean Corpuscular Hemoglobin Concent 32.0, Red Cell Distribution Width 12.0, Platelet Count 188, Mean Platelet Volume 7.0, Neutrophils (%) (Auto) 61.0, Lymphocytes (% ) (Auto) 26.6, Monocytes (%) (Auto) 10.4H, Eosinophils (%) (Auto) 1.6, Basophils (%) (Auto) 0.3, Sodium Level 136, Potassium Level 3.8, Chloride Level 99, Carbon Dioxide Level 32, Anion Gap 5, Blood Urea Nitrogen 13, Creatinine 0.7 , Estimat Glomerular Filtration Rate , Glucose Level 119H, Calcium Level 9.2 Current Medications Medications (Trade) Dose Ordered Sig/Wilner Route PRN Reason Start Time Stop Time Status Last Admin Dose Admin Acetaminophen (Tylenol) 650 mg Q4H PRN ORAL Fever/Headache/Mild Pain 03/17/17 08:00 04/07/17 11:28 Allopurinol (Zyloprim) 100 mg DAILY ORAL 03/17/17 09:00 04/14/17 08:59 03/17/17 08:44 Amlodipine Besylate (Norvasc) 10 mg DAILY ORAL 03/17/17 09:00 04/14/17 08:59 Aspirin (Ecotrin) 81 mg DAILY ORAL 03/17/17 09:00 03/29/17 11:19 03/17/17 08:44 Bisacodyl (Dulcolax) 10 mg DAILYPRN PRN RECTAL Constipation Third Line Agent 03/17/17 18:15 04/07/17 11:28 Carvedilol (Coreg) 25 mg Q12HR ORAL 03/17/17 09:00 04/04/17 20:59 Dextrose (Dextrose 50%) STAT PRN IV Hypoglycemia 03/17/17 15:15 03/30/17 15:14 Escitalopram Oxalate (Lexapro) 10 mg DAILY ORAL 03/17/17 09:00 04/13/17 14:14 03/17/17 08:44 Haloperidol Lactate (Haldol) 2 mg Q4H PRN IM Agitation 03/17/17 07:15 03/27/17 15:14 Hydralazine HCl (Apresoline) 10 mg Q6HR NG 03/17/17 12:00 04/04/17 11:59 Hydralazine HCl (Apresoline) 25 mg Q4H PRN ORAL SBP > 160mmHg 03/17/17 07:15 03/27/17 15:14 Lidocaine (Xylocaine 1% MPF 5ml) 10 ml Q4H PRN HHN cough 03/17/17 07:15 03/19/17 15:14 Lorazepam (Ativan 2mg/ml 1ml) 0.5 mg Q4H PRN IV For Anxiety 03/17/17 09:00 03/24/17 08:59 03/17/17 09:02 Metoclopramide HCl (Reglan) 5 mg Q8HR IVP 03/17/17 14:00 04/03/17 21:59 03/17/17 13:08 Morphine Sulfate (Morphine Sulfate) 2 mg Q4H PRN IVP Pain 4-10 03/17/17 09:15 03/21/17 17:14 03/17/17 09:01 Ondansetron HCl (Zofran) 4 mg Q6H PRN IVP Nausea & Vomiting 03/17/17 09:15 03/17/17 15:14 Pantoprazole (Protonix) 40 mg DAILY IV 03/17/17 09:00 03/29/17 08:59 03/17/17 08:46 Polyethylene Glycol (Miralax) 17 gm DAILYPRN PRN ORAL Constipation First line agent 03/17/17 15:15 03/17/17 15:16 Pravastatin Sodium (Pravachol) 20 mg BEDTIME ORAL 03/17/17 21:00 03/18/17 20:59 Pregabalin (Lyrica) 150 mg THREE TIMES A DAY ORAL 03/17/17 09:00 03/18/17 12:59 03/17/17 13:09 Promethazine HCl/ Codeine (Phenergan with Codeine) 5 ml Q4H PRN ORAL UNRELIEVED COUGH 03/17/17 07:15 03/18/17 15:14 Ranitidine HCl (Zantac) 150 mg QPM ORAL 03/17/17 16:30 03/27/17 16:29 TWIN FONTANEZ Mar 17, 2017 14:51
--- NOTE | 2017-03-17 14:52 | General Progress Note ---
Assessment/Plan Status: stable Assessment/Plan Status: Acute renal failure- etiology? 1900 cc urine out after insertion of shi-- JOSE MIGUEL: Moderate right hydronephrosis. Acute on Chronic respiratory failure- extubated now HTN High Cholestrol Pneumonia COPD , exac. Diastolic CHF, Mod MR h/o C dif colitis h/o Breast Ca Anemia Pulm HTN Moderate Plan: now extubated- post extubation care adjust BP meds K and Phos supplement as needed pulm support Allopurinol continue Shi- Avoid nephrotoxics JOSE MIGUEL: Moderate right hydronephrosis. ? Dc planning ? Subjective ROS Limited/Unobtainable: No Constitutional: Reports: malaise Allergies: Coded Allergies: TETRACYCLINE (Unverified Allergy, Unknown, 07/24/14) Objective Last 24 Hour Vital Signs Date Time Temp Pulse Resp B/P (MAP) Pulse Ox O2 Delivery O2 Flow Rate FiO2 03/17/17 14:08 98.8 03/17/17 12:15 98.8 72 20 120/66 94 Room Air 03/17/17 12:00 120/66 03/17/17 09:31 98.6 03/17/17 08:15 98.6 80 17 115/68 Room Air 03/17/17 07:03 98 Nasal Cannula 3.0 32 03/17/17 07:03 Nasal Cannula 3.0 32 03/17/17 05:42 101/49 03/17/17 04:00 97.7 72 18 101/49 99 Nasal Cannula 3.0 03/17/17 04:00 72 03/17/17 00:00 99/51 03/17/17 00:00 97.9 79 20 99/51 99 Nasal Cannula 3.0 03/16/17 23:02 97.7 03/16/17 21:00 64 110/60 03/16/17 20:00 64 03/16/17 20:00 97.7 67 20 110/60 99 Nasal Cannula 3.0 03/16/17 19:00 97 Nasal Cannula 3.0 32 03/16/17 19:00 Nasal Cannula 3.0 32 03/16/17 18:56 97.3 03/16/17 17:57 126/56 03/16/17 16:00 97.3 67 20 124/55 99 Nasal Cannula 3.0 03/16/17 16:00 79 Intake and Output 03/17/17 03/18/17 19:00 07:00 Intake Total 240 ml Balance 240 ml Intake Oral 240 ml Laboratory Tests 03/17/17 02:00: White Blood Count 6.9, Red Blood Count 2.66L, Hemoglobin 8.5L, Hematocrit 26.6L , Mean Corpuscular Volume 100H, Mean Corpuscular Hemoglobin 32.1H, Mean Corpuscular Hemoglobin Concent 32.0, Red Cell Distribution Width 12.0, Platelet Count 188, Mean Platelet Volume 7.0, Neutrophils (%) (Auto) 61.0, Lymphocytes (% ) (Auto) 26.6, Monocytes (%) (Auto) 10.4H, Eosinophils (%) (Auto) 1.6, Basophils (%) (Auto) 0.3, Sodium Level 136, Potassium Level 3.8, Chloride Level 99, Carbon Dioxide Level 32, Anion Gap 5, Blood Urea Nitrogen 13, Creatinine 0.7 , Estimat Glomerular Filtration Rate , Glucose Level 119H, Calcium Level 9.2 Height (Feet): 5 Height (Inches): 7.00 Weight (Pounds): 112 General Appearance: no apparent distress Objective no edema- no change in PE GENARO DUARTE Mar 17, 2017 14:52
[2017-03-17] MEDS ORDERED: Miralax 17gm pkt ORAL PRN (15:15)
--- NOTE | 2017-03-17 15:33 | General Progress Note ---
Assessment/Plan Status: stable, progressing Assessment/Plan anxiety d/o' encephalopathy resolved -cont current meds -provided ro/st -cont ativan Subjective Neurologic/Psychiatric: Reports: anxiety Allergies: Coded Allergies: TETRACYCLINE (Unverified Allergy, Unknown, 07/24/14) Subjective the pt is the same. pt is med seeking. anxious at times Objective Last 24 Hour Vital Signs Date Time Temp Pulse Resp B/P (MAP) Pulse Ox O2 Delivery O2 Flow Rate FiO2 03/17/17 14:08 98.8 03/17/17 12:15 98.8 72 20 120/66 94 Room Air 03/17/17 12:00 120/66 03/17/17 09:31 98.6 03/17/17 08:15 98.6 80 17 115/68 Room Air 03/17/17 07:03 98 Nasal Cannula 3.0 32 03/17/17 07:03 Nasal Cannula 3.0 32 03/17/17 05:42 101/49 03/17/17 04:00 97.7 72 18 101/49 99 Nasal Cannula 3.0 03/17/17 04:00 72 03/17/17 00:00 99/51 03/17/17 00:00 97.9 79 20 99/51 99 Nasal Cannula 3.0 03/16/17 23:02 97.7 03/16/17 21:00 64 110/60 03/16/17 20:00 64 03/16/17 20:00 97.7 67 20 110/60 99 Nasal Cannula 3.0 03/16/17 19:00 97 Nasal Cannula 3.0 32 03/16/17 19:00 Nasal Cannula 3.0 32 03/16/17 18:56 97.3 03/16/17 17:57 126/56 03/16/17 16:00 97.3 67 20 124/55 99 Nasal Cannula 3.0 03/16/17 16:00 79 Intake and Output 03/17/17 03/18/17 19:00 07:00 Intake Total 240 ml Balance 240 ml Intake Oral 240 ml Laboratory Tests 03/17/17 02:00: White Blood Count 6.9, Red Blood Count 2.66L, Hemoglobin 8.5L, Hematocrit 26.6L , Mean Corpuscular Volume 100H, Mean Corpuscular Hemoglobin 32.1H, Mean Corpuscular Hemoglobin Concent 32.0, Red Cell Distribution Width 12.0, Platelet Count 188, Mean Platelet Volume 7.0, Neutrophils (%) (Auto) 61.0, Lymphocytes (% ) (Auto) 26.6, Monocytes (%) (Auto) 10.4H, Eosinophils (%) (Auto) 1.6, Basophils (%) (Auto) 0.3, Sodium Level 136, Potassium Level 3.8, Chloride Level 99, Carbon Dioxide Level 32, Anion Gap 5, Blood Urea Nitrogen 13, Creatinine 0.7 , Estimat Glomerular Filtration Rate , Glucose Level 119H, Calcium Level 9.2 Height (Feet): 5 Height (Inches): 7.00 Weight (Pounds): 112 General Appearance: no apparent distress, alert, mild distress, overweight Neurologic: alert, oriented x 3, responsive, depressed affect Wan Stern M.D. Mar 17, 2017 15:33
[2017-03-17 16:05] VITALS: BP 123/75
--- NOTE | 2017-03-17 19:18 | Internal Med Progress Note ---
Subjective Date of Service: Mar 17, 2017 Physician Name Zeb Fuentes Attending Physician Jun Cedillo MD Current Medications Medications (Trade) Dose Ordered Sig/Wilner Route PRN Reason Start Time Stop Time Status Last Admin Dose Admin Acetaminophen (Tylenol) 650 mg Q4H PRN ORAL Fever/Headache/Mild Pain 03/17/17 08:00 04/07/17 11:28 Allopurinol (Zyloprim) 100 mg DAILY ORAL 03/17/17 09:00 04/14/17 08:59 03/17/17 08:44 Amlodipine Besylate (Norvasc) 10 mg DAILY ORAL 03/17/17 09:00 04/14/17 08:59 Aspirin (Ecotrin) 81 mg DAILY ORAL 03/17/17 09:00 03/29/17 11:19 03/17/17 08:44 Bisacodyl (Dulcolax) 10 mg DAILYPRN PRN RECTAL Constipation Third Line Agent 03/17/17 18:15 04/07/17 11:28 Carvedilol (Coreg) 25 mg Q12HR ORAL 03/17/17 09:00 04/04/17 20:59 Dextrose (Dextrose 50%) STAT PRN IV Hypoglycemia 03/17/17 15:15 03/30/17 15:14 Escitalopram Oxalate (Lexapro) 10 mg DAILY ORAL 03/17/17 09:00 04/13/17 14:14 03/17/17 08:44 Haloperidol Lactate (Haldol) 2 mg Q4H PRN IM Agitation 03/17/17 07:15 03/27/17 15:14 Hydralazine HCl (Apresoline) 10 mg Q6HR NG 03/17/17 12:00 04/04/17 11:59 03/17/17 17:13 Hydralazine HCl (Apresoline) 25 mg Q4H PRN ORAL SBP > 160mmHg 03/17/17 07:15 03/27/17 15:14 Lidocaine (Xylocaine 1% MPF 5ml) 10 ml Q4H PRN HHN cough 03/17/17 07:15 03/19/17 15:14 Lorazepam (Ativan 2mg/ml 1ml) 0.5 mg Q4H PRN IV For Anxiety 03/17/17 09:00 03/24/17 08:59 03/17/17 15:42 Metoclopramide HCl (Reglan) 5 mg Q8HR IVP 03/17/17 14:00 04/03/17 21:59 03/17/17 13:08 Morphine Sulfate (Morphine Sulfate) 2 mg Q4H PRN IVP Pain 4-10 03/17/17 09:15 03/21/17 17:14 03/17/17 15:42 Pantoprazole (Protonix) 40 mg DAILY ORAL 03/18/17 09:00 04/17/17 08:59 Pravastatin Sodium (Pravachol) 20 mg BEDTIME ORAL 03/17/17 21:00 03/18/17 20:59 Pregabalin (Lyrica) 150 mg THREE TIMES A DAY ORAL 03/17/17 09:00 03/18/17 12:59 03/17/17 17:12 Promethazine HCl/ Codeine (Phenergan with Codeine) 5 ml Q4H PRN ORAL UNRELIEVED COUGH 03/17/17 07:15 03/18/17 15:14 Allergies: Coded Allergies: TETRACYCLINE (Unverified Allergy, Unknown, 07/24/14) ROS Limited/Unobtainable: No Constitutional: Reports: no symptoms HEENT: Reports: no symptoms Cardiovascular: Reports: no symptoms Respiratory: Reports: cough, shortness of breath Gastrointestinal/Abdominal: Reports: no symptoms Genitourinary: Reports: no symptoms Neurologic/Psychiatric: Reports: no symptoms Subjective 76 YO F admitted with shortness of breath. Now pneumonia. Cover for Int Daniel- Dr Cedillo. Med/surg. Tolerating Nasal canula. Objective Last Vital Signs Date Time Temp Pulse Resp B/P (MAP) Pulse Ox O2 Delivery O2 Flow Rate FiO2 03/17/17 18:11 97.6 03/17/17 17:13 123/75 03/17/17 16:05 80 19 97 Nasal Cannula 2.0 03/17/17 07:03 32 Laboratory Tests Test 03/17/17 02:00 White Blood Count 6.9 K/UL (4.8-10.8) Red Blood Count 2.66 M/UL (4.20-5.40) L Hemoglobin 8.5 G/DL (12.0-16.0) L Hematocrit 26.6 % (37.0-47.0) L Mean Corpuscular Volume 100 FL (80-99) H Mean Corpuscular Hemoglobin 32.1 PG (27.0-31.0) H Mean Corpuscular Hemoglobin Concent 32.0 G/DL (32.0-36.0) Red Cell Distribution Width 12.0 % (11.6-14.8) Platelet Count 188 K/UL (150-450) Mean Platelet Volume 7.0 FL (6.5-10.1) Neutrophils (%) (Auto) 61.0 % (45.0-75.0) Lymphocytes (%) (Auto) 26.6 % (20.0-45.0) Monocytes (%) (Auto) 10.4 % (1.0-10.0) H Eosinophils (%) (Auto) 1.6 % (0.0-3.0) Basophils (%) (Auto) 0.3 % (0.0-2.0) Sodium Level 136 MMOL/L (136-145) Potassium Level 3.8 MMOL/L (3.5-5.1) Chloride Level 99 MMOL/L (98-107) Carbon Dioxide Level 32 MMOL/L (21-32) Anion Gap 5 mmol/L (5-15) Blood Urea Nitrogen 13 mg/dL (7-18) Creatinine 0.7 MG/DL (0.55-1.30) Estimat Glomerular Filtration Rate mL/min (>60) Glucose Level 119 MG/DL (74-106) H Calcium Level 9.2 MG/DL (8.5-10.1) Intake and Output 03/17/17 03/18/17 19:00 07:00 Intake Total 480 ml 480 ml Output Total 700 ml Balance 480 ml -220 ml Intake Oral 480 ml 480 ml Output Urine Total 700 ml Objective General Appearance: WD/WN, no apparent distress, alert EENT: PERRL/EOMI, normal ENT inspection, TMs normal Neck: non-tender, normal alignment, supple, normal inspection Cardiovascular: normal peripheral pulses, normal rate, regular rhythm, no gallop/murmur, no JVD Respiratory/Chest: Nasal canula; chest wall non-tender, respiratory distress, decreased breath sounds, crackles/rales, rhonchi - bilaterally, expiratory wheezing Abdomen: normal bowel sounds, non tender, soft, no organomegaly, no mass Extremities: normal range of motion 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 (8) Pneumonia Assessment & Plan: D/C antibiotics - See ID and pulmonary notes. (9) COPD exacerbation Assessment & Plan: Continue IV solumedrol and xopenex/atrovent nebs. See pulmonary note. (10) Diastolic CHF Assessment & Plan: See cardiology note. 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 S/P intubation to aerate left lung-see pulmonary note. D/W pulmonary Dr Hernandez. Extubated 03/07 (14) Respiratory failure requiring intubation Assessment & Plan: Extubated 03/07/17; tolerating nasal canula (15) Dysphagia Assessment & Plan: Tolerating low sodium diet. See speech therapy note. Status: progressing ZEB FUENTES Mar 17, 2017 19:18
[2017-03-17 20:00] VITALS: BP 140/74
[2017-03-18] VITALS: BP 104/50
[2017-03-18] MEDS: Morphine Sulfate 4mg/ml Inj IVP PRN ×3 (01:48→15:22)
[2017-03-18] MEDS: LORazepam Inj 2mg/ml 1ml IV PRN ×3 (03:58→17:19)
[2017-03-18 04:00] VITALS: BP 101/48
[2017-03-18] MEDS: Metoclopramide 10mg/2ml Inj IVP SCH ×2 (05:50→15:21)
[2017-03-18] MEDS: HydrALAZINE 10mg Tab NG SCH ×4 (05:55→17:19)
[2017-03-18 06:37] LABS: HEMOGLOBIN 7.7 G/DL (12.0-16.0); MEAN CORPUSCULAR VOLUME 99 FL (80-99); PLATELET COUNT 180 K/UL (150-450); RED BLOOD COUNT 2.42 M/UL (4.20-5.40); RED CELL DISTRIBUTION WIDTH 12.4 % (11.6-14.8); WHITE BLOOD COUNT 6.4 K/UL (4.8-10.8)
[2017-03-18 06:52] LABS: ANION GAP 6 mmol/L (5-15); BLOOD UREA NITROGEN 15 mg/dL (7-18); CALCIUM 8.9 MG/DL (8.5-10.1); CARBON DIOXIDE 31 MMOL/L (21-32); CHLORIDE 99 MMOL/L (98-107); CREATININE 0.7 MG/DL (0.55-1.30); POTASSIUM 3.8 MMOL/L (3.5-5.1); SODIUM 136 MMOL/L (136-145)
[2017-03-18 08:00] VITALS: BP 126/64
[2017-03-18] MEDS: Aspirin EC 81mg tab ORAL SCH (10:38)
[2017-03-18] MEDS: Lyrica 75mg cap ORAL SCH (10:39)
[2017-03-18] MEDS: Carvedilol 25mg Tab ORAL SCH (10:46)
[2017-03-18] MEDS: Allopurinol 100mg Tab ORAL SCH (10:46)
[2017-03-18 12:00] VITALS: BP 98/55
--- NOTE | 2017-03-18 12:03 | Infectious Diseases Prog Note ---
Assessment/Plan Assessment/Plan Assessment/Plan Abx: IV Vanco 02/15-03/01 Cefepime 02/15-02/18 Meropenem 02/18-03/03 Assesment: Low grade, SP Ucx >100k yeast (colonizer) No evid of pneumonia at this time - SP bronch 02/26 (collected 02/26, however received on the lab 03/03??): BAL cx NTD -CXR 03/03: Stable bilateral interstitial and alveolar opacities, probable small left pleural effusion, elevation left hemidiaphragm - CT Chest 02/24: Near-complete occlusion of the left mainstem bronchus and proximal lobar bronchi, probably by debris. Extensive resultant atelectasis and consolidation of nearly the entire left lung. Less extensive consolidation within the right lung, nonspecific as regards etiology, likely secondary to pneumonia or edema Crypt Ag serum neg; -sp cx 03/06 <1+ Proteus Mirabilis (S Ancef/CTX, bactrim; R Cipro/levo); s/p recent PNA tx CXR 03/05: There is suggestion of slightly increased pleural fluid on the left. Hazy opacity in the right lung is stable Leukocytosis, mild - recurrent, (s/p steroids 03/07) Swallow eval : Positive for aspiration and penetration of thin liquid barium Acute hypoxic resp failure, SP Intubated 02/26; extubated 03/07 -venous duplex 02/16 no DVT L pleural effusion - improved COPD on home O2 Hx of Cdiff DM2 Chronic abd pain hx of MRSA bacteremia 07/2015 TCA allergy Full Code fibromyalgia, HTN, HLD, R breast cancer,Tobacco abuse (stopped 4 years ago), Anxiety, AOCD Plan: -Continue to monitor off abx; -s/p 14d IV Meropenem 03/03 -s/p 14 d IV Vancomycin 03/01 -s/p 6d prophylactic PO vanco 02/21 -s/p 4 d Cefepime 02/18 -f/u Cocci ab -Monitor CBC/BMP, temperatures -Aspiration precautions - vent support, wean as tolerated Subjective Allergies: Coded Allergies: TETRACYCLINE (Unverified Allergy, Unknown, 07/24/14) Subjective afebrile Objective Vital Signs Last 24 Hour Vital Signs Date Time Temp Pulse Resp B/P (MAP) Pulse Ox O2 Delivery O2 Flow Rate FiO2 03/18/17 10:46 77 126/64 03/18/17 10:46 77 126/64 03/18/17 08:00 97.3 77 20 126/64 93 Nasal Cannula 3.0 03/18/17 07:04 Nasal Cannula 3.0 32 03/18/17 07:04 96 Nasal Cannula 3.0 32 03/18/17 05:55 108/55 03/18/17 04:00 98.7 77 20 101/48 97 Nasal Cannula 03/18/17 00:00 97.2 78 18 104/50 97 Nasal Cannula 2.0 03/18/17 00:00 104/50 03/17/17 20:15 91 140/74 03/17/17 20:00 96.7 91 18 140/74 95 Room Air 03/17/17 19:47 97 Nasal Cannula 3.0 32 03/17/17 19:47 Nasal Cannula 3.0 32 03/17/17 18:11 97.6 03/17/17 17:13 123/75 03/17/17 16:12 97.6 03/17/17 16:05 97.6 80 19 123/75 97 Nasal Cannula 2.0 03/17/17 12:15 98.8 72 20 120/66 94 Room Air Height (Feet): 5 Height (Inches): 7.00 Weight (Pounds): 118 HEENT: atraumatic Respiratory/Chest: normal breath sounds Cardiovascular: regular rhythm Abdomen: no organomegaly Laboratory Tests Test 03/18/17 06:10 White Blood Count 6.4 K/UL (4.8-10.8) Red Blood Count 2.42 M/UL (4.20-5.40) L Hemoglobin 7.7 G/DL (12.0-16.0) L Hematocrit 24.0 % (37.0-47.0) L Mean Corpuscular Volume 99 FL (80-99) Mean Corpuscular Hemoglobin 31.7 PG (27.0-31.0) H Mean Corpuscular Hemoglobin Concent 32.0 G/DL (32.0-36.0) Red Cell Distribution Width 12.4 % (11.6-14.8) Platelet Count 180 K/UL (150-450) Mean Platelet Volume 6.8 FL (6.5-10.1) Neutrophils (%) (Auto) % (45.0-75.0) Lymphocytes (%) (Auto) % (20.0-45.0) Monocytes (%) (Auto) % (1.0-10.0) Eosinophils (%) (Auto) % (0.0-3.0) Basophils (%) (Auto) % (0.0-2.0) Differential Total Cells Counted 100 Neutrophils % (Manual) 57 % (45-75) Lymphocytes % (Manual) 31 % (20-45) Monocytes % (Manual) 10 % (1-10) Eosinophils % (Manual) 2 % (0-3) Basophils % (Manual) 0 % (0-2) Band Neutrophils 0 % (0-8) Platelet Estimate Adequate Platelet Morphology Normal Hypochromasia 3+ Anisocytosis 1+ Spherocytes 1+ Sodium Level 136 MMOL/L (136-145) Potassium Level 3.8 MMOL/L (3.5-5.1) Chloride Level 99 MMOL/L (98-107) Carbon Dioxide Level 31 MMOL/L (21-32) Anion Gap 6 mmol/L (5-15) Blood Urea Nitrogen 15 mg/dL (7-18) Creatinine 0.7 MG/DL (0.55-1.30) Estimat Glomerular Filtration Rate mL/min (>60) Glucose Level 107 MG/DL (74-106) H Calcium Level 8.9 MG/DL (8.5-10.1) Current Medications Medications (Trade) Dose Ordered Sig/Wilner Route PRN Reason Start Time Stop Time Status Last Admin Dose Admin Acetaminophen (Tylenol) 650 mg Q4H PRN ORAL Fever/Headache/Mild Pain 03/17/17 08:00 04/07/17 11:28 Allopurinol (Zyloprim) 100 mg DAILY ORAL 03/17/17 09:00 04/14/17 08:59 03/18/17 10:46 Amlodipine Besylate (Norvasc) 10 mg DAILY ORAL 03/18/17 09:00 04/17/17 08:59 Aspirin (Ecotrin) 81 mg DAILY ORAL 03/17/17 09:00 03/29/17 11:19 03/18/17 10:38 Bisacodyl (Dulcolax) 10 mg DAILYPRN PRN RECTAL Constipation Third Line Agent 03/17/17 18:15 04/07/17 11:28 Carvedilol (Coreg) 25 mg Q12HR ORAL 03/17/17 09:00 04/04/17 20:59 03/17/17 20:15 Dextrose (Dextrose 50%) STAT PRN IV Hypoglycemia 03/17/17 15:15 03/30/17 15:14 Escitalopram Oxalate (Lexapro) 10 mg DAILY ORAL 03/17/17 09:00 04/13/17 14:14 03/18/17 10:39 Haloperidol Lactate (Haldol) 2 mg Q4H PRN IM Agitation 03/17/17 07:15 03/27/17 15:14 Hydralazine HCl (Apresoline) 10 mg Q6HR NG 03/17/17 12:00 04/04/17 11:59 03/17/17 17:13 Hydralazine HCl (Apresoline) 25 mg Q4H PRN ORAL SBP > 160mmHg 03/17/17 07:15 03/27/17 15:14 Lidocaine (Xylocaine 1% MPF 5ml) 10 ml Q4H PRN HHN cough 03/17/17 07:15 03/19/17 15:14 Lorazepam (Ativan 2mg/ml 1ml) 0.5 mg Q4H PRN IV For Anxiety 03/17/17 09:00 03/24/17 08:59 03/18/17 03:58 Metoclopramide HCl (Reglan) 5 mg Q8HR IVP 03/17/17 14:00 04/03/17 21:59 03/18/17 05:50 Morphine Sulfate (Morphine Sulfate) 2 mg Q4H PRN IVP Pain 4-10 03/17/17 09:15 03/21/17 17:14 03/18/17 10:40 Pantoprazole (Protonix) 40 mg DAILY ORAL 03/18/17 09:00 04/17/17 08:59 03/18/17 10:39 Pravastatin Sodium (Pravachol) 20 mg BEDTIME ORAL 03/17/17 21:00 03/18/17 20:59 03/17/17 20:15 Pregabalin (Lyrica) 150 mg THREE TIMES A DAY ORAL 03/17/17 09:00 03/18/17 12:59 03/18/17 10:39 Promethazine HCl/ Codeine (Phenergan with Codeine) 5 ml Q4H PRN ORAL UNRELIEVED COUGH 03/17/17 07:15 03/18/17 15:14 ORLANDO RODRIGUEZ M.D. Mar 18, 2017 12:03
--- NOTE | 2017-03-18 12:53 | Internal Med Progress Note ---
Subjective Date of Service: Mar 18, 2017 Physician Name Zeb Contreras Attending Physician Jun Cedillo MD Current Medications Medications (Trade) Dose Ordered Sig/Wilner Route PRN Reason Start Time Stop Time Status Last Admin Dose Admin Acetaminophen (Tylenol) 650 mg Q4H PRN ORAL Fever/Headache/Mild Pain 03/17/17 08:00 04/07/17 11:28 Allopurinol (Zyloprim) 100 mg DAILY ORAL 03/17/17 09:00 04/14/17 08:59 03/18/17 10:46 Amlodipine Besylate (Norvasc) 10 mg DAILY ORAL 03/18/17 09:00 04/17/17 08:59 Aspirin (Ecotrin) 81 mg DAILY ORAL 03/17/17 09:00 03/29/17 11:19 03/18/17 10:38 Bisacodyl (Dulcolax) 10 mg DAILYPRN PRN RECTAL Constipation Third Line Agent 03/17/17 18:15 04/07/17 11:28 Carvedilol (Coreg) 25 mg Q12HR ORAL 03/17/17 09:00 04/04/17 20:59 03/17/17 20:15 Dextrose (Dextrose 50%) STAT PRN IV Hypoglycemia 03/17/17 15:15 03/30/17 15:14 Escitalopram Oxalate (Lexapro) 10 mg DAILY ORAL 03/17/17 09:00 04/13/17 14:14 03/18/17 10:39 Haloperidol Lactate (Haldol) 2 mg Q4H PRN IM Agitation 03/17/17 07:15 03/27/17 15:14 Hydralazine HCl (Apresoline) 10 mg Q6HR NG 03/17/17 12:00 04/04/17 11:59 03/17/17 17:13 Hydralazine HCl (Apresoline) 25 mg Q4H PRN ORAL SBP > 160mmHg 03/17/17 07:15 03/27/17 15:14 Lidocaine (Xylocaine 1% MPF 5ml) 10 ml Q4H PRN HHN cough 03/17/17 07:15 03/19/17 15:14 Lorazepam (Ativan 2mg/ml 1ml) 0.5 mg Q4H PRN IV For Anxiety 03/17/17 09:00 03/24/17 08:59 03/18/17 03:58 Metoclopramide HCl (Reglan) 5 mg Q8HR IVP 03/17/17 14:00 04/03/17 21:59 03/18/17 05:50 Morphine Sulfate (Morphine Sulfate) 2 mg Q4H PRN IVP Pain 4-10 03/17/17 09:15 03/21/17 17:14 03/18/17 10:40 Pantoprazole (Protonix) 40 mg DAILY ORAL 03/18/17 09:00 04/17/17 08:59 03/18/17 10:39 Pravastatin Sodium (Pravachol) 20 mg BEDTIME ORAL 03/17/17 21:00 03/18/17 20:59 03/17/17 20:15 Pregabalin (Lyrica) 150 mg THREE TIMES A DAY ORAL 03/17/17 09:00 03/18/17 12:59 03/18/17 10:39 Promethazine HCl/ Codeine (Phenergan with Codeine) 5 ml Q4H PRN ORAL UNRELIEVED COUGH 03/17/17 07:15 03/18/17 15:14 Allergies: Coded Allergies: TETRACYCLINE (Unverified Allergy, Unknown, 07/24/14) ROS Limited/Unobtainable: No Constitutional: Reports: no symptoms HEENT: Reports: no symptoms Cardiovascular: Reports: no symptoms Respiratory: Reports: cough, shortness of breath Gastrointestinal/Abdominal: Reports: no symptoms Genitourinary: Reports: no symptoms Neurologic/Psychiatric: Reports: no symptoms Subjective 76 YO F admitted with shortness of breath. Now pneumonia. Cover for Int Med- Dr Cedillo. Med/surg. Tolerating Nasal canula. Await transfer to [facility]. Objective Last Vital Signs Date Time Temp Pulse Resp B/P (MAP) Pulse Ox O2 Delivery O2 Flow Rate FiO2 03/18/17 10:46 77 126/64 03/18/17 08:00 97.3 20 93 Nasal Cannula 3.0 03/18/17 07:04 32 Laboratory Tests Test 03/18/17 06:10 White Blood Count 6.4 K/UL (4.8-10.8) Red Blood Count 2.42 M/UL (4.20-5.40) L Hemoglobin 7.7 G/DL (12.0-16.0) L Hematocrit 24.0 % (37.0-47.0) L Mean Corpuscular Volume 99 FL (80-99) Mean Corpuscular Hemoglobin 31.7 PG (27.0-31.0) H Mean Corpuscular Hemoglobin Concent 32.0 G/DL (32.0-36.0) Red Cell Distribution Width 12.4 % (11.6-14.8) Platelet Count 180 K/UL (150-450) Mean Platelet Volume 6.8 FL (6.5-10.1) Neutrophils (%) (Auto) % (45.0-75.0) Lymphocytes (%) (Auto) % (20.0-45.0) Monocytes (%) (Auto) % (1.0-10.0) Eosinophils (%) (Auto) % (0.0-3.0) Basophils (%) (Auto) % (0.0-2.0) Differential Total Cells Counted 100 Neutrophils % (Manual) 57 % (45-75) Lymphocytes % (Manual) 31 % (20-45) Monocytes % (Manual) 10 % (1-10) Eosinophils % (Manual) 2 % (0-3) Basophils % (Manual) 0 % (0-2) Band Neutrophils 0 % (0-8) Platelet Estimate Adequate Platelet Morphology Normal Hypochromasia 3+ Anisocytosis 1+ Spherocytes 1+ Sodium Level 136 MMOL/L (136-145) Potassium Level 3.8 MMOL/L (3.5-5.1) Chloride Level 99 MMOL/L (98-107) Carbon Dioxide Level 31 MMOL/L (21-32) Anion Gap 6 mmol/L (5-15) Blood Urea Nitrogen 15 mg/dL (7-18) Creatinine 0.7 MG/DL (0.55-1.30) Estimat Glomerular Filtration Rate mL/min (>60) Glucose Level 107 MG/DL (74-106) H Calcium Level 8.9 MG/DL (8.5-10.1) Intake and Output 03/18/17 03/19/17 19:00 07:00 Intake Total 125 ml Output Total 175 ml Balance -50 ml Intake Oral 125 ml Output Urine Total 175 ml Objective General Appearance: WD/WN, no apparent distress, alert EENT: PERRL/EOMI, normal ENT inspection, TMs normal Neck: non-tender, normal alignment, supple, normal inspection Cardiovascular: normal peripheral pulses, normal rate, regular rhythm, no gallop/murmur, no JVD Respiratory/Chest: Nasal canula; chest wall non-tender, respiratory distress, decreased breath sounds, crackles/rales, rhonchi - bilaterally, expiratory wheezing Abdomen: normal bowel sounds, non tender, soft, no organomegaly, no mass Extremities: normal range of motion 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 (8) Pneumonia Assessment & Plan: D/C antibiotics - See ID and pulmonary notes. (9) COPD exacerbation Assessment & Plan: Continue IV solumedrol and xopenex/atrovent nebs. See pulmonary note. (10) Diastolic CHF Assessment & Plan: See cardiology note. 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 S/P intubation to aerate left lung-see pulmonary note. D/W pulmonary Dr Hernandez. Extubated 03/07 (14) Respiratory failure requiring intubation Assessment & Plan: Extubated 03/07/17; tolerating nasal canula (15) Dysphagia Assessment & Plan: Tolerating low sodium diet. See speech therapy note. Status: progressing GINAZEB Mar 18, 2017 12:53
--- NOTE | 2017-03-18 15:13 | General Progress Note ---
Assessment/Plan Status: stable Assessment/Plan Status: Acute renal failure- etiology? 1900 cc urine out after insertion of shi-- JOSE MIGUEL: Moderate right hydronephrosis. Acute on Chronic respiratory failure- extubated now HTN High Cholestrol Pneumonia COPD , exac. Diastolic CHF, Mod MR h/o C dif colitis h/o Breast Ca Anemia Pulm HTN Moderate Plan: now extubated- post extubation care adjust BP meds K and Phos supplement as needed pulm support Allopurinol continue Shi- Avoid nephrotoxics JOSE MIGUEL: Moderate right hydronephrosis. ? Dc planning ? Subjective ROS Limited/Unobtainable: No Constitutional: Reports: malaise Allergies: Coded Allergies: TETRACYCLINE (Unverified Allergy, Unknown, 07/24/14) Objective Last 24 Hour Vital Signs Date Time Temp Pulse Resp B/P (MAP) Pulse Ox O2 Delivery O2 Flow Rate FiO2 03/18/17 12:49 119/63 03/18/17 12:00 97.3 100 20 98/55 90 Nasal Cannula 3.0 03/18/17 10:46 77 126/64 03/18/17 10:46 77 126/64 03/18/17 08:00 97.3 77 20 126/64 93 Nasal Cannula 3.0 03/18/17 07:04 Nasal Cannula 3.0 32 03/18/17 07:04 96 Nasal Cannula 3.0 32 03/18/17 05:55 108/55 03/18/17 04:00 98.7 77 20 101/48 97 Nasal Cannula 03/18/17 00:00 97.2 78 18 104/50 97 Nasal Cannula 2.0 03/18/17 00:00 104/50 03/17/17 20:15 91 140/74 03/17/17 20:00 96.7 91 18 140/74 95 Room Air 03/17/17 19:47 97 Nasal Cannula 3.0 32 03/17/17 19:47 Nasal Cannula 3.0 32 03/17/17 18:11 97.6 03/17/17 17:13 123/75 03/17/17 16:12 97.6 03/17/17 16:05 97.6 80 19 123/75 97 Nasal Cannula 2.0 Intake and Output 03/18/17 03/19/17 19:00 07:00 Intake Total 125 ml Output Total 175 ml Balance -50 ml Intake Oral 125 ml Output Urine Total 175 ml Laboratory Tests 03/18/17 06:10: White Blood Count 6.4, Red Blood Count 2.42L, Hemoglobin 7.7L, Hematocrit 24.0L , Mean Corpuscular Volume 99, Mean Corpuscular Hemoglobin 31.7H, Mean Corpuscular Hemoglobin Concent 32.0, Red Cell Distribution Width 12.4, Platelet Count 180, Mean Platelet Volume 6.8, Neutrophils (%) (Auto) , Lymphocytes (%) ( Auto) , Monocytes (%) (Auto) , Eosinophils (%) (Auto) , Basophils (%) (Auto) , Differential Total Cells Counted 100, Neutrophils % (Manual) 57, Lymphocytes % ( Manual) 31, Monocytes % (Manual) 10, Eosinophils % (Manual) 2, Basophils % ( Manual) 0, Band Neutrophils 0, Platelet Estimate Adequate, Platelet Morphology Normal, Hypochromasia 3+, Anisocytosis 1+, Spherocytes 1+, Sodium Level 136, Potassium Level 3.8, Chloride Level 99, Carbon Dioxide Level 31, Anion Gap 6, Blood Urea Nitrogen 15, Creatinine 0.7, Estimat Glomerular Filtration Rate , Glucose Level 107H, Calcium Level 8.9 Height (Feet): 5 Height (Inches): 7.00 Weight (Pounds): 118 General Appearance: no apparent distress Objective no edema- no change in PE GENARO DUARTE Mar 18, 2017 15:13
[2017-03-18 16:00] VITALS: BP 153/90
--- NOTE | 2017-03-18 17:09 | Pulmonology Progress Note ---
Assessment/Plan Problems: (1) Acute and chronic respiratory failure ([id number]) (2) COPD exacerbation (3) Pneumonia (4) Fibromyalgia (5) History of breast cancer (6) Limited mobility Assessment/Plan looks better stabke now on 2 liters NC more aggressive Chest PT incentive spirometry advance diet as tolerated dc planning pt agreed to go rto [facility] pt/waldemar Subjective ROS Limited/Unobtainable: No Constitutional: Reports: no symptoms HEENT: Repors: no symptoms Respiratory: Reports: no symptoms Allergies: Coded Allergies: TETRACYCLINE (Unverified Allergy, Unknown, 07/24/14) Objective Last 24 Hour Vital Signs Date Time Temp Pulse Resp B/P (MAP) Pulse Ox O2 Delivery O2 Flow Rate FiO2 03/18/17 16:00 97.3 95 20 153/90 94 Nasal Cannula 3.0 03/18/17 12:49 119/63 03/18/17 12:00 97.3 100 20 98/55 90 Nasal Cannula 3.0 03/18/17 10:46 77 126/64 03/18/17 10:46 77 126/64 03/18/17 08:00 97.3 77 20 126/64 93 Nasal Cannula 3.0 03/18/17 07:04 Nasal Cannula 3.0 32 03/18/17 07:04 96 Nasal Cannula 3.0 32 03/18/17 05:55 108/55 03/18/17 04:00 98.7 77 20 101/48 97 Nasal Cannula 03/18/17 00:00 97.2 78 18 104/50 97 Nasal Cannula 2.0 03/18/17 00:00 104/50 03/17/17 20:15 91 140/74 03/17/17 20:00 96.7 91 18 140/74 95 Room Air 03/17/17 19:47 97 Nasal Cannula 3.0 32 03/17/17 19:47 Nasal Cannula 3.0 32 03/17/17 18:11 97.6 03/17/17 17:13 123/75 Intake and Output 03/18/17 03/19/17 19:00 07:00 Intake Total 125 ml Output Total 175 ml Balance -50 ml Intake Oral 125 ml Output Urine Total 175 ml General Appearance: WD/WN HEENT: normocephalic Respiratory/Chest: chest wall non-tender, lungs clear, normal breath sounds Breasts: no masses Cardiovascular: normal peripheral pulses Abdomen: normal bowel sounds, soft, non tender Genitourinary: normal external genitalia Extremities: no cyanosis Skin: no lesions Neurologic/Psychiatric: 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 grossly normal Laboratory Tests 03/18/17 06:10: White Blood Count 6.4, Red Blood Count 2.42L, Hemoglobin 7.7L, Hematocrit 24.0L , Mean Corpuscular Volume 99, Mean Corpuscular Hemoglobin 31.7H, Mean Corpuscular Hemoglobin Concent 32.0, Red Cell Distribution Width 12.4, Platelet Count 180, Mean Platelet Volume 6.8, Neutrophils (%) (Auto) , Lymphocytes (%) ( Auto) , Monocytes (%) (Auto) , Eosinophils (%) (Auto) , Basophils (%) (Auto) , Differential Total Cells Counted 100, Neutrophils % (Manual) 57, Lymphocytes % ( Manual) 31, Monocytes % (Manual) 10, Eosinophils % (Manual) 2, Basophils % ( Manual) 0, Band Neutrophils 0, Platelet Estimate Adequate, Platelet Morphology Normal, Hypochromasia 3+, Anisocytosis 1+, Spherocytes 1+, Sodium Level 136, Potassium Level 3.8, Chloride Level 99, Carbon Dioxide Level 31, Anion Gap 6, Blood Urea Nitrogen 15, Creatinine 0.7, Estimat Glomerular Filtration Rate , Glucose Level 107H, Calcium Level 8.9 Current Medications Medications (Trade) Dose Ordered Sig/Wilner Route PRN Reason Start Time Stop Time Status Last Admin Dose Admin Acetaminophen (Tylenol) 650 mg Q4H PRN ORAL Fever/Headache/Mild Pain 03/17/17 08:00 04/07/17 11:28 Allopurinol (Zyloprim) 100 mg DAILY ORAL 03/17/17 09:00 04/14/17 08:59 03/18/17 10:46 Amlodipine Besylate (Norvasc) 10 mg DAILY ORAL 03/18/17 09:00 04/17/17 08:59 Aspirin (Ecotrin) 81 mg DAILY ORAL 03/17/17 09:00 03/29/17 11:19 03/18/17 10:38 Bisacodyl (Dulcolax) 10 mg DAILYPRN PRN RECTAL Constipation Third Line Agent 03/17/17 18:15 04/07/17 11:28 Carvedilol (Coreg) 25 mg Q12HR ORAL 03/17/17 09:00 04/04/17 20:59 03/17/17 20:15 Dextrose (Dextrose 50%) STAT PRN IV Hypoglycemia 03/17/17 15:15 03/30/17 15:14 Escitalopram Oxalate (Lexapro) 10 mg DAILY ORAL 03/17/17 09:00 04/13/17 14:14 03/18/17 10:39 Haloperidol Lactate (Haldol) 2 mg Q4H PRN IM Agitation 03/17/17 07:15 03/27/17 15:14 Hydralazine HCl (Apresoline) 10 mg Q6HR NG 03/17/17 12:00 04/04/17 11:59 03/17/17 17:13 Hydralazine HCl (Apresoline) 25 mg Q4H PRN ORAL SBP > 160mmHg 03/17/17 07:15 03/27/17 15:14 Lidocaine (Xylocaine 1% MPF 5ml) 10 ml Q4H PRN HHN cough 03/17/17 07:15 03/19/17 15:14 Lorazepam (Ativan 2mg/ml 1ml) 0.5 mg Q4H PRN IV For Anxiety 03/17/17 09:00 03/24/17 08:59 03/18/17 12:46 Metoclopramide HCl (Reglan) 5 mg Q8HR IVP 03/17/17 14:00 04/03/17 21:59 03/18/17 15:21 Morphine Sulfate (Morphine Sulfate) 2 mg Q4H PRN IVP Pain 4-10 03/17/17 09:15 03/21/17 17:14 03/18/17 15:22 Pantoprazole (Protonix) 40 mg DAILY ORAL 03/18/17 09:00 04/17/17 08:59 03/18/17 10:39 Pravastatin Sodium (Pravachol) 20 mg BEDTIME ORAL 03/17/17 21:00 03/18/17 20:59 03/17/17 20:15 TWIN FONTANEZ Mar 18, 2017 17:09
[2017-03-18] MEDS ORDERED: TYLENOL650 MG/20. ORAL (18:09)
[2017-03-18] MEDS ORDERED: MORPHINE SU4 MG/1 ML IVP (18:15)
[2017-03-18] MEDS ORDERED: ALLOPURINOL100 M1 ORAL (18:18)
[2017-03-18] MEDS ORDERED: NORVASC10 MG ORAL (18:21)
[2017-03-18] MEDS ORDERED: HALDOL INJECT5 MG/ML IM ×2 (18:23→18:27)
[2017-03-18] MEDS ORDERED: METOCLOPRA10 MG/2 ML IV (18:25)
[2017-03-18] MEDS ORDERED: LORAZEPAM2 MG/1 M3 IV (18:28)
[2017-03-18 20:00] VITALS: BP 109/61
--- NOTE | 2017-03-21 00:30 | Discharge Summary 2 SIG ---
DATE OF ADMISSION: 02/15/2017 DATE OF DISCHARGE: 03/18/2017 CONSULTANTSS: 1. Ric Hernandez M.D. 2. Camacho Greene M.D. 3. Wan Stern M.D. 4. Harjeet Ovalles M.D. 5. Cristopher Roque M.D. BRIEF HOSPITAL COURSE: The patient is a 76-year-old female, who presented to ED complaining of shortness of breath. She has history of COPD and complained of cough with productive greenish sputum. Denies fever or chills. She is on home O2 and has history of coronary artery disease, hypertension, mitral regurgitation, CHF, hyperlipidemia as well as subdural hematoma with multiple falls, anemia, severe protein-calorie malnutrition, hyperpotassemia, breast CA, fibromyalgia and osteoporosis. On evaluation at ED, the patient was with respiratory distress. She was placed on BiPAP and was given breathing treatment. She was unable to tolerate BiPAP and was placed on 45% Ventimask. Chest x-ray done showed bilateral effusions with right middle lobe infiltrate. EKG was sinus. She was admitted to [facility] and was placed on Lasix drip. She was started on IV steroids and was given pulmonary support. Venous duplex of lower extremity was negative for DVT and echocardiogram done showed ejection fraction of 50% and RVSP of 43 consistent with moderate pulmonary hypertension and moderate mitral regurgitation. She underwent swallow evaluation and was placed on strict aspiration precautions. The patient has a high risk for aspiration due to dysphagia. Influenza screen was negative. She was started on vancomycin and meropenem and was placed prophylactically on p.o. vancomycin given prior history of C. difficile. Respiratory status continued to worsen. Chest ultrasound showed no pleural effusion. Chest CT showed a near occlusion of the left main stem bronchus and proximal lobar bronchi with extensive resultant atelectasis and consolidation of the entire left lung. There was presence of less extensive consolidation within the right lung, likely secondary to pneumonia or edema. On 02/26/2017, the patient underwent bronchoscopy due to left lung collapse. There was large amount of brownish thick secretions that were suctioned from the trachea and left main bronchus. All segments were visualized. Large amount of secretions were suctioned from all left segments and the right main bronchus and segments, which were visualized, which were cleaned. He was orally intubated. He had decreased urine output and developed acute renal failure. Kidney ultrasound showed right hydronephrosis. She was eventually weaned off vent support and was extubated on 03/07/17. She underwent swallow evaluation and was placed on strict aspiration precaution. She was given pureed diet with honey-thick liquid. She was given physical and occupational therapy. She was given aggressive chest PT. She was eventually discharged back to [facility]. FINAL DIAGNOSIS: 1. Acute on chronic hypoxemic respiratory failure requiring intubation s/p extubation 2. Acute chronic obstructive pulmonary disease in exacerbation 3. Acute diastolic congestive heart failure. 4. Pnuemonia. 5. Left pleural effusion. 6. Left lung collapse s/p bronchcoscopy 02/26/17 7. Moderate mitral regurgitation. 8. Moderate pulmonary hypertension. 9. Anemia of chronic disease 10. History of breast carcinoma. 11. Hypertension. 12. Dysphagia. 13. Limited mobility. 14. Acute renal failure. 15. Allergic rhinitis. 16. Hypercholesterolemia. 17. Constipation. 18. Osteoporosis. DISPOSITION: Patient was discharged back to [facility]. Jun Cedillo M.D. I have been assigned to dictate discharge summary on this account and I was not involved in the patient's management. Linda Estrada N.P. DR: RUBY JOB#: [id number] CC: BALDEMAR
== END 2017-03-18 20:45 | DRG 207 ==
LOC: EDBD 19:01 → EMR 19:27 → 2E 19:35 → EDBEDREQ 20:02 → 2W 23:07 → ICU 02-25 12:14 → 2W 03-08 19:00 → 4E 03-17 07:00
PROC: 0BH17EZ Insertion of Endotracheal Airway into Trachea, Via Natural or Artificial Opening (ICD-10-PCS; principal; 2017-02-26)
PROC: 0BC18ZZ Extirpation of Matter from Trachea, Via Natural or Artificial Opening Endoscopic (ICD-10-PCS; principal; 2017-02-26)
PROC: 5A1955Z Respiratory Ventilation, Greater than 96 Consecutive Hours (ICD-10-PCS; principal; 2017-02-26)
PROC: 0BC78ZZ Extirpation of Matter from Left Main Bronchus, Via Natural or Artificial Opening Endoscopic (ICD-10-PCS; principal; 2017-02-26)
DX: J96.21 Acute and chronic respiratory failure with hypoxia (principal); I50.31 Acute diastolic (congestive) heart failure; J18.9 Pneumonia, unspecified organism; G93.40 Encephalopathy, unspecified; J90 Pleural effusion, not elsewhere classified; N17.9 Acute kidney failure, unspecified; E87.3 Alkalosis; I11.0 Hypertensive heart disease with heart failure; J44.0 Chronic obstructive pulmonary disease with (acute) lower respiratory infection; J44.1 Chronic obstructive pulmonary disease with (acute) exacerbation; J98.11 Atelectasis; N13.30 Unspecified hydronephrosis; I27.20 Pulmonary hypertension, unspecified; I95.9 Hypotension, unspecified; D64.9 Anemia, unspecified; Z99.81 Dependence on supplemental oxygen; Z87.891 Personal history of nicotine dependence; M79.7 Fibromyalgia; M81.0 Age-related osteoporosis without current pathological fracture; F41.9 Anxiety disorder, unspecified; F32.9 Major depressive disorder, single episode, unspecified; Z85.3 Personal history of malignant neoplasm of breast; I25.10 Atherosclerotic heart disease of native coronary artery without angina pectoris; Z74.01 Bed confinement status; R00.0 Tachycardia, unspecified; I34.0 Nonrheumatic mitral (valve) insufficiency; E11.9 Type 2 diabetes mellitus without complications; D72.829 Elevated white blood cell count, unspecified; E78.5 Hyperlipidemia, unspecified; L89.151 Pressure ulcer of sacral region, stage 1; J30.9 Allergic rhinitis, unspecified; E78.00 Pure hypercholesterolemia, unspecified; K59.00 Constipation, unspecified; J98.09 Other diseases of bronchus, not elsewhere classified
CPT/HCPCS: 31645; 36415; 36600; 71010; 71250; 74000; 74230; 76604; 76775; 80048; 80053; 80069; 80076; 80202; 81001; 81003; 82105; 82378; 82550; 82607; 82746; 82803; 82962; 83540; 83550; 83605; 83615; 83735; 83880; 84100; 84300; 84484; 84550; 85007; 85025; 85044; 85060; 85610; 85651; 85730; 86140; 86635; 86710; 86850; 86900; 86901; 87040; 87070; 87086; 87181; 87205; 87449; 88104; 89050; 93005; 93306; 93970; 94002; 94003; 94640; 94660; 94664; 94760; C9399; J2405; J2765; J7620

== ENCOUNTER 2018-01-13 15:15 | Inpatient (IN) | payer MEDICARE, OTHER ==
[~2018-01-13] VITALS: Ht 152.4 cm; Wt 53.6 kg
[~2018-01-13 15:15] MED LIST changes: +ALLOPURINOL100 M1 ORAL; +ASPIRIN EC81 MG ORAL; +CARVEDILOL3.125 MG ORAL; +CENTRUM SILVER1 EAC4 PO; +DOCUSATE SODIU100 MG ORAL; +EVISTA60 MG ORAL; +HALDOL INJECT5 MG/ML IM; +KLOR-CON 88 MEQ ORAL; +LISINOPRIL20 MG ORAL; +LORAZEPAM2 MG/1 M3 IV; +METOCLOPRA10 MG/2 ML IV; +MORPHINE SU4 MG/1 ML IVP; +NORVASC10 MG ORAL; +PRAVASTATIN SOD20 M1 ORAL; +RAPAFLO8 MG ORAL; +TYLENOL650 MG/20. ORAL; +ZANTAC150 MG ORAL
[2018-01-13] MEDS ORDERED: Sodium Chloride 500ML 500 ML IV ONE (15:33)
[2018-01-13] MEDS ORDERED: LORazepam 0.5mg tab ORAL ONE (15:45)
[2018-01-13 15:55] VITALS: BP 112/67
[2018-01-13] MEDS ORDERED: Piperacillin/Tazobactam 3.375 GM in NS 110 ML IVPB ONE (16:00)
[2018-01-13] MEDS ORDERED: Azithromycin 500 MG in D5W 275 ML IVPB ONE (16:00)
--- NOTE | 2018-01-13 16:23 | Diagnostic Imaging Report ---
Indication: Shortness of breath Technique: One view of the chest Comparison: 03/16/2017 Findings: The heart is enlarged. Previously demonstrated left-sided pleural effusion is no longer evident. There is bilateral interstitial and possible airspace congestion, similar to previous. Surgical clips are seen in the right perihilar region and in the right axilla. Impression: Cardiomegaly. Evidence of at least mild congestive heart failure
--- NOTE | 2018-01-13 16:24 | Emergency Room Report ---
History of Present Illness General Chief Complaint: Upper Respiratory Illness Source: Patient Present Illness HPI 77-year-old female presents ED for evaluation. Patient coming in from [facility] with cough and congestion. States she's been "sick" from some time now and keeps getting recurrent pneumonias. Denies fevers or chills. Notes cough and productive sputum. Patient states she had a chest x-ray recently and was sent here for evaluation. Denies chest pain or shortness of breath. No other aggravating relieving factors. Denies any other associated symptoms Allergies: Coded Allergies: TETRACYCLINE (Unverified Allergy, Unknown, 07/24/14) TETRACYCLINES (Unverified Allergy, Unknown, 01/13/18) Patient History Past Medical History: DM, HTN, COPD Past Surgical History: none Pertinent Family History: none Social History: Denies: smoking, alcohol use, drug use Now: No Immunizations: UTD Reviewed Nursing Documentation: PMH: Agreed; PSxH: Agreed Nursing Documentation-PMH Past Medical History: No History, Except For Hx Hypertension: Yes Hx COPD: Yes Hx Diabetes: Yes Hx Cancer: No Hx Gastrointestinal Problems: No Hx Neurological Problems: No Review of Systems All Other Systems: negative except mentioned in HPI Physical Exam Vital Signs Date Time Temp Pulse Resp B/P (MAP) Pulse Ox O2 Delivery O2 Flow Rate FiO2 01/13/18 15:07 97.1 105 20 113/71 94 Nasal Cannula 3.0 97.2 Sp02 EP Interpretation: reviewed, normal General Appearance: no apparent distress, alert, GCS 15, non-toxic Head: normocephalic, atraumatic Eyes: bilateral eye normal inspection, bilateral eye PERRL ENT: hearing grossly normal, normal pharynx, no angioedema, normal voice Neck: full range of motion, supple/symm/no masses Respiratory: chest non-tender, lungs clear, decreased breath sounds, crackles, speaking full sentences Cardiovascular #1: regular rate, rhythm, no edema Cardiovascular #2: 2+ carotid (R), 2+ carotid (L), 2+ radial (R), 2+ radial (L) , 2+ dorsalis pedis (R), 2+ dorsalis pedis (L) Gastrointestinal: normal bowel sounds, non tender, soft, non-distended, no guarding, no rebound Rectal: deferred Genitourinary: normal inspection, no CVA tenderness Musculoskeletal: back normal, gait/station normal, normal range of motion, non- tender Neurologic: alert, oriented x3, responsive, motor strength/tone normal, sensory intact, speech normal Psychiatric: judgement/insight normal, memory normal, mood/affect normal, no suicidal/homicidal ideation Reflexes: 3+ bicep (R), 3+ bicep (L), 3+ tricep (R), 3+ tricep (L), 3+ knee (R) , 3+ knee (L) Skin: normal color, no rash, warm/dry, well hydrated Lymphatic: no adenopathy Medical Decision Making Diagnostic Impression: Primary Impression: Pneumonia Qualified Codes: J18.1 - Lobar pneumonia, unspecified organism Additional Impression: Anxiety ER Course Hospital Course 77-year-old F presenting to ED with cough, congestion Differential diagnoses include: Pneumonia, CHF exacerbation, pneumothorax, fluid overload Clinical course Patient placed on stretcher. On cardiac cath lab manager. After initial history and physical, I ordered labs, IV fluids, EKG, chest x-ray, blood cultures, UA. Patient placed on nasal cannula with O2 saturation improving Labs -minimal leukocytosis hemoglobin/hematocrit stable, electrolytes ok, lactate okay, troponins negative EKG - NSR, no acute ischemic changes interpreted by me CXR - R lower lobe infiltrate given abx. given ativan for anxiety symptoms here with resolution in ED Case discussed with Dr. Hoffman and he agreed to the patient to his service for further care and support I feel this is a highly complex case requiring extensive working including EKG/ Rhythm strip, Xray/CT/US, Blood/urine lab work, repeat exams while in ED, and administration of strong opiates/narcotics for pain control, admission to hospital or close patient follow up. Diagnosis - pneumonia, anxiety Patient admitted to floor in serious condition Labs Test 01/13/18 16:00 White Blood Count 11.6 K/UL (4.8-10.8) Red Blood Count 3.31 M/UL (4.20-5.40) Hemoglobin 10.5 G/DL (12.0-16.0) Hematocrit 30.2 % (37.0-47.0) Mean Corpuscular Volume 91 FL (80-99) Mean Corpuscular Hemoglobin 31.6 PG (27.0-31.0) Mean Corpuscular Hemoglobin Concent 34.7 G/DL (32.0-36.0) Red Cell Distribution Width 13.5 % (11.6-14.8) Platelet Count 205 K/UL (150-450) Mean Platelet Volume 6.5 FL (6.5-10.1) Neutrophils (%) (Auto) 67.9 % (45.0-75.0) Lymphocytes (%) (Auto) 23.6 % (20.0-45.0) Monocytes (%) (Auto) 5.8 % (1.0-10.0) Eosinophils (%) (Auto) 2.3 % (0.0-3.0) Basophils (%) (Auto) 0.4 % (0.0-2.0) Sodium Level 135 MMOL/L (136-145) Potassium Level 4.3 MMOL/L (3.5-5.1) Chloride Level 99 MMOL/L (98-107) Carbon Dioxide Level 32 MMOL/L (21-32) Anion Gap 4 mmol/L (5-15) Blood Urea Nitrogen 35 mg/dL (7-18) Creatinine 0.8 MG/DL (0.55-1.30) Estimat Glomerular Filtration Rate mL/min (>60) Glucose Level 105 MG/DL (74-106) Lactic Acid Level 0.60 mmol/L (0.4-2.0) Calcium Level 10.2 MG/DL (8.5-10.1) Total Bilirubin 0.3 MG/DL (0.2-1.0) Aspartate Amino Transf (AST/SGOT) 16 U/L (15-37) Alanine Aminotransferase (ALT/SGPT) 21 U/L (12-78) Alkaline Phosphatase 90 U/L (46-116) Total Creatine Kinase 39 U/L (26-308) Creatine Kinase MB 0.9 NG/ML (0.0-3.6) Creatine Kinase MB Relative Index 2.3 Troponin I 0.000 ng/mL (0.000-0.056) Pro-B-Type Natriuretic Peptide 377 pg/mL (0-125) Total Protein 7.4 G/DL (6.4-8.2) Albumin 3.2 G/DL (3.4-5.0) Globulin 4.2 g/dL Albumin/Globulin Ratio 0.8 (1.0-2.7) EKG Diagnostic Results Rate: normal Rhythm: NSR ST Segments: no acute changes ASA given to the pt in ED: No Rhythm Strip Diag. Results EP Interpretation: yes Rhythm: NSR, no PVC's, no ectopy Chest X-Ray Diagnostic Results Chest X-Ray Diagnostic Results : Chest X-Ray Ordered: Yes # of Views/Limited/Complete: 1 View Indication: Shortness of Breath EP Interpretation: Yes Interpretation: no pneumothorax, other - RLL infiltrate Impression: Other - PNA Electronically Signed by: Electronically signed by Paul Marley MD Last Vital Signs Date Time Temp Pulse Resp B/P (MAP) Pulse Ox O2 Delivery O2 Flow Rate FiO2 01/13/18 15:55 94 16 112/67 95 Room Air 01/13/18 15:07 97.1 3.0 97.2 Status: improved Disposition: ADMITTED INPATIENT Condition: Serious Paul Marley MD Jan 13, 2018 16:24
[2018-01-13 16:40] LABS: BASOPHILS % (AUTO) 0.4 % (0.0-2.0); EOSINOPHILS % (AUTO) 2.3 % (0.0-3.0); HEMATOCRIT 30.2 % (37.0-47.0); HEMOGLOBIN 10.5 G/DL (12.0-16.0); LYMPHOCYTES % (AUTO) 23.6 % (20.0-45.0); MEAN CORPUSCULAR VOLUME 91 FL (80-99); MONOCYTES % (AUTO) 5.8 % (1.0-10.0); NEUTROPHILS % (AUTO) 67.9 % (45.0-75.0); PLATELET COUNT 205 K/UL (150-450); RED BLOOD COUNT 3.31 M/UL (4.20-5.40); RED CELL DISTRIBUTION WIDTH 13.5 % (11.6-14.8); WHITE BLOOD COUNT 11.6 K/UL (4.8-10.8)
[2018-01-13 16:44] LABS: ANION GAP 4 mmol/L (5-15); BLOOD UREA NITROGEN 35 mg/dL (7-18); CALCIUM 10.2 MG/DL (8.5-10.1); CARBON DIOXIDE 32 MMOL/L (21-32); CHLORIDE 99 MMOL/L (98-107); CREATININE 0.8 MG/DL (0.55-1.30); POTASSIUM 4.3 MMOL/L (3.5-5.1); SODIUM 135 MMOL/L (136-145)
[2018-01-13 16:57] LABS: ALANINE AMINOTRANSFERASE 21 U/L (12-78); ALBUMIN 3.2 G/DL (3.4-5.0); ALBUMIN/GLOBULIN RATIO 0.8 (1.0-2.7); ALKALINE PHOSPHATASE 90 U/L (46-116); ASPARTATE AMINO TRANSFERASE 16 U/L (15-37); BILIRUBIN,TOTAL 0.3 MG/DL (0.2-1.0); CKMB 0.9 NG/ML (0.0-3.6); CREATINE KINASE 39 U/L (26-308)
[2018-01-13] MEDS ORDERED: LORazepam Inj 2mg/ml 1ml IV ONE (17:00)
[2018-01-13 19:07] LABS: APPEARANCE,URINE CLEAR; BILIRUBIN, URINE NEGATIVE (NEGATIVE); COLOR,URINE PALE YELLOW; GLUCOSE, URINE (UA) NEGATIVE (NEGATIVE); KETONES,URINE 1+ (NEGATIVE); LEUKOCYTE ESTERASE ,URINE NEGATIVE (NEGATIVE); NITRITE,URINE NEGATIVE (NEGATIVE); PH,URINE 6 (4.5-8.0); PROTEIN,URINE 1+ (NEGATIVE); UROBILINOGEN,URINE NORMAL MG/DL (0.0-1.0)
[2018-01-13 19:28] VITALS: BP 90/78
[2018-01-13] MEDS ORDERED: OYSTER SHELL 51 EAC1 PO (20:07)
[2018-01-13 20:17] VITALS: BP 117/57
[2018-01-13] MEDS ORDERED: MONTELUKAST SOD10 MG ORAL (20:18)
[2018-01-13] MEDS ORDERED: LEXAPRO10 MG ORAL (20:18)
[2018-01-13] MEDS ORDERED: MULTIVITAMINS1 EAC8 ORAL (20:18)
[2018-01-13] MEDS ORDERED: FERROUS SULFAT325 MG ORAL (20:18)
[2018-01-13] MEDS ORDERED: BREO ELLIPTA 11 EACH IH (20:18)
[2018-01-13] MEDS ORDERED: CRANBERRY450 M4 PO (20:18)
[2018-01-13 20:25] VITALS: BP 112/55
[2018-01-13] MEDS ORDERED: LYRICA75 M1 ORAL (20:26)
[2018-01-13] MEDS ORDERED: PRAVASTATIN SOD20 M1 ORAL (20:26)
[2018-01-13] MEDS ORDERED: ATIVAN0.5 MG ORAL (20:26)
[2018-01-13] MEDS ORDERED: MAGNESIUM OXID250 MG PO (20:28)
[2018-01-13] MEDS ORDERED: KLONOPIN1 MG ORAL (22:20)
[2018-01-13] MEDS ORDERED: DICYCLOMINE HCL10 MG PO (22:20)
[2018-01-13] MEDS ORDERED: Dicyclomine 10mg Cap ORAL PRN (22:30)
[2018-01-13] MEDS ORDERED: Albuterol/Ipratropium 3ml neb HHN PRN (22:30)
[2018-01-13] MEDS ORDERED: Miralax 17gm pkt ORAL PRN (22:30)
[2018-01-13] MEDS: Docusate 100mg cap ORAL SCH (22:40)
[2018-01-13] MEDS: Allopurinol 100mg Tab ORAL SCH (23:00)
[2018-01-13] MEDS: Heparin 5000 units/ml inj SUBQ SCH (23:00)
[2018-01-13] MEDS: Norco 5mg/325mg tab ORAL PRN (23:02)
[2018-01-13] MEDS: Lyrica 75mg cap ORAL SCH (23:12)
--- NOTE | 2018-01-13 23:18 | Consultation ---
History of Present Illness General Date patient seen: Jan 13, 2018 Chief Complaint: Upper Respiratory Illness Present Illness HPI 77-year-old female presents ED for evaluation. Patient coming in from [facility] with cough and congestion. the pt is being treated by this md. the pt has depressed mood and anxiety. her sxs are chronic and she is on benzos chronically Allergies: Coded Allergies: TETRACYCLINE (Unverified Allergy, Unknown, 07/24/14) TETRACYCLINES (Unverified Allergy, Unknown, 01/13/18) Medication History Scheduled Allopurinol* (Allopurinol*), 100 MG ORAL BID, (Reported) Amlodipine Besylate (Norvasc), 10 MG ORAL DAILY, (Reported) Aspirin Ec* (Aspirin Ec*), 81 MG ORAL DAILY, (Reported) Docusate Sodium* (Colace*), 100 MG ORAL BID, (Reported) Escitalopram Oxalate* (Lexapro*), 10 MG ORAL DAILY, (Reported) Ferrous Sulfate* (Ferrous Sulfate*), 325 MG ORAL DAILY, (Reported) Lactobacillus Combination No.4 (Probiotic), 1 EACH PO BID, (Reported) Lisinopril (Lisinopril*), 20 MG ORAL DAILY, (Reported) Lorazepam* (Ativan*), 0.5 MG ORAL THREE TIMES A DAY, (Reported) Montelukast Sodium* (Montelukast Sodium*), 10 MG ORAL DAILY, (Reported) Multivitamin With Minerals (Multivitamins With Minerals*), 1 TAB ORAL DAILY, ( Reported) Pravastatin Sod* (Pravastatin Sod*), 40 MG ORAL BEDTIME, (Reported) Pregabalin* (Lyrica*), 225 MG ORAL BID, (Reported) Tiotropium [place]* (Spiriva*), 1 PUFF INH DAILY, (Reported) Scheduled PRN Acetaminophen (Acetaminophen), 650 MG ORAL Q4HR PRN for Prn Headache/Temp > 101, (Reported) Clonazepam* (Klonopin*), 1 MG ORAL QHS PRN for For Anxiety, (Reported) Dicyclomine Hcl* (Dicyclomine Hcl*), 10 MG PO EVERY 6 HOURS PRN for For Cough, ( Reported) Hydrocodone Bit/Acetaminophen 5-325* (Dana 5-325*), 1 TAB ORAL Q8HR PRN for For Pain, (Reported) Miscellaneous Medications Calcium Carbonate/Vitamin D3 (Oyster Shell 500 Mg + Vit D Tb), 1 EACH PO, ( Reported) Cranberry Fruit Concentrate (Cranberry), 450 MG PO, (Reported) Fluticasone/Vilanterol (Breo Ellipta 100-25 Mcg INH), 1 EACH IH, (Reported) Magnesium Oxide (Magnesium Oxide), 240 MG PO, (Reported) Discontinued Medications Calcium Citrate/Vitamin D3 (Calcium Cit-Vit D 315-200 Tab), 2 EACH PO DAILY, ( Reported) Discontinued Reason: Prescription changed Carvedilol* (Carvedilol*), 3.125 MG ORAL, (Reported) Discontinued Reason: Pt stopped taking med Chlorhexidine Gluconate (Chlorhexidine Gluconate), 15 ML NEISHA, (Reported) Discontinued Reason: Pt stopped taking med Citalopram Hydrobromide* (Citalopram Hbr*), 10 MG ORAL DAILY, (Reported) Discontinued Reason: Pt stopped taking med Clonazepam* (Klonopin*), 1 MG ORAL DAILY, (Reported) Discontinued Reason: Pt stopped taking med Docusate Sodium* (Docusate Sodium*), Unknown Dose ORAL THREE TIMES A DAY, ( Reported) Discontinued Reason: Pt stopped taking med Haloperidol Lactate (Haloperidol Lactate), 5 MG IM EVERY 4 HOURS, (Reported) Discontinued Reason: Pt stopped taking med Haloperidol Lactate (Haloperidol Lactate), 2 MG IM EVERY 4 HOURS PRN for Agitation, (Reported) Discontinued Reason: Pt stopped taking med Hydrocodone Bit/Acetaminophen 7.5-325* (Dana 7.5-325*), 1 TAB ORAL Q4H PRN for For Pain, (Reported) Discontinued Reason: Pt stopped taking med Ipratropium/Albuterol Sulfate (Combivent Respimat Inhal [place]), 18 MCG IH Q4HR, (Reported) Discontinued Reason: Pt stopped taking med Lorazepam (Lorazepam), 0.5 MG IV Q4H PRN for For Anxiety, (Reported) Discontinued Reason: Pt stopped taking med Metoclopramide HCl (Metoclopramide HCl), 5 MG IV Q8HR, (Reported) Discontinued Reason: Pt stopped taking med Morphine Sulfate (Morphine Sulfate), 2 MG IVP EVERY 4 HOURS, (Reported) Discontinued Reason: Pt stopped taking med Mu-Vits-Min Th/Lycopene/Lutein (Centrum Silver Tablet), 1 EACH PO, (Reported) Discontinued Reason: Pt stopped taking med Ondansetron Odt* (Zofran Odt*), 8 MG ORAL Q8HR PRN for Nausea & Vomiting, ( Reported) Discontinued Reason: Pt stopped taking med Potassium Chloride (Potassium Chloride), 8 MEQ PO DAILY, (Reported) Discontinued Reason: Pt stopped taking med Potassium Chloride (Klor-Con 8), 8 MEQ ORAL DAILY, (Reported) Discontinued Reason: Pt stopped taking med Pravastatin Sod* (Pravastatin Sod*), 20 MG ORAL BEDTIME, (Reported) Discontinued Reason: Pt stopped taking med Pregabalin (Lyrica), 225 MG ORAL TWICE A DAY, (Reported) Discontinued Reason: Pt stopped taking med Raloxifene Hcl* (Evista*), 60 MG ORAL DAILY, (Reported) Discontinued Reason: Pt stopped taking med Ranitidine Hcl* (Zantac*), 300 MG ORAL, (Reported) Discontinued Reason: Pt stopped taking med Sennosides (Senna-Gen), 2 TAB ORAL DAILY, (Reported) Discontinued Reason: Pt stopped taking med Silodosin (Rapaflo), 8 MG ORAL DAILY, (Reported) Discontinued Reason: Pt stopped taking med Tramadol Hcl* (Ultram*), 50 MG ORAL Q6H PRN for For Pain, (Reported) Discontinued Reason: Pt stopped taking med Patient History Limited by: medical condition History Provided By: Patient, Medical Record, PMD Healthcare decision maker Resuscitation status Advanced Directive on File Yes Past Medical/Surgical History Past Medical/Surgical History: (1) COPD (chronic obstructive pulmonary disease) (2) Fibromyalgia (3) Acute and chronic respiratory failure ([id number]) (4) History of breast cancer (5) Limited mobility (6) Osteoporosis (7) Cough (8) SOB (shortness of breath) (9) Hypercholesteremia (10) Allergic rhinitis (11) Hypertension (12) Lumbar radiculopathy (13) Cervical spondylosis (14) Lumbar spondylosis (15) Cervical radiculopathy (16) DDD (degenerative disc disease), cervical (17) DDD (degenerative disc disease), lumbar (18) Troponin level elevated (19) Diastolic CHF (20) Constipation (21) Renal failure (22) Pleural effusion (23) Collapse of left lung (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 (25) Respiratory failure requiring intubation (26) Dysphagia (27) Anxiety (28) Pneumonia Review of Systems Psychiatric: Reports: prior hx, anxiety, depressed feelings, emotional problems Physical Exam General Appearance: no apparent distress, alert Neurologic: oriented x 3, responsive, depressed affect Last 24 Hour Vital Signs Date Time Temp Pulse Resp B/P (MAP) Pulse Ox O2 Delivery O2 Flow Rate FiO2 01/13/18 21:33 Nasal Cannula 2.0 01/13/18 21:00 98.3 103 17 117/57 97 Room Air 2.0 98.3 01/13/18 20:25 97.9 104 17 112/55 (74) 94 97.9 01/13/18 20:17 98.3 103 17 117/57 97 Room Air 2.0 98.3 01/13/18 19:28 98.3 115 17 90/78 97 Room Air 2.0 98.3 01/13/18 19:10 94 16 Room Air 2.0 01/13/18 15:55 94 16 112/67 95 Room Air 01/13/18 15:07 97.1 105 20 113/71 94 Nasal Cannula 3.0 97.2 Laboratory Tests Test 01/13/18 16:00 01/13/18 18:40 White Blood Count 11.6 K/UL (4.8-10.8) H Red Blood Count 3.31 M/UL (4.20-5.40) L Hemoglobin 10.5 G/DL (12.0-16.0) L Hematocrit 30.2 % (37.0-47.0) L Mean Corpuscular Volume 91 FL (80-99) Mean Corpuscular Hemoglobin 31.6 PG (27.0-31.0) H Mean Corpuscular Hemoglobin Concent 34.7 G/DL (32.0-36.0) Red Cell Distribution Width 13.5 % (11.6-14.8) Platelet Count 205 K/UL (150-450) Mean Platelet Volume 6.5 FL (6.5-10.1) Neutrophils (%) (Auto) 67.9 % (45.0-75.0) Lymphocytes (%) (Auto) 23.6 % (20.0-45.0) Monocytes (%) (Auto) 5.8 % (1.0-10.0) Eosinophils (%) (Auto) 2.3 % (0.0-3.0) Basophils (%) (Auto) 0.4 % (0.0-2.0) Sodium Level 135 MMOL/L (136-145) L Potassium Level 4.3 MMOL/L (3.5-5.1) Chloride Level 99 MMOL/L (98-107) Carbon Dioxide Level 32 MMOL/L (21-32) Anion Gap 4 mmol/L (5-15) L Blood Urea Nitrogen 35 mg/dL (7-18) H Creatinine 0.8 MG/DL (0.55-1.30) Estimat Glomerular Filtration Rate mL/min (>60) Glucose Level 105 MG/DL (74-106) Lactic Acid Level 0.60 mmol/L (0.4-2.0) Calcium Level 10.2 MG/DL (8.5-10.1) H Total Bilirubin 0.3 MG/DL (0.2-1.0) Aspartate Amino Transf (AST/SGOT) 16 U/L (15-37) Alanine Aminotransferase (ALT/SGPT) 21 U/L (12-78) Alkaline Phosphatase 90 U/L (46-116) Total Creatine Kinase 39 U/L (26-308) Creatine Kinase MB 0.9 NG/ML (0.0-3.6) Creatine Kinase MB Relative Index 2.3 Troponin I 0.000 ng/mL (0.000-0.056) Pro-B-Type Natriuretic Peptide 377 pg/mL (0-125) H Total Protein 7.4 G/DL (6.4-8.2) Albumin 3.2 G/DL (3.4-5.0) L Globulin 4.2 g/dL Albumin/Globulin Ratio 0.8 (1.0-2.7) L Urine Color Pale yellow Urine Appearance Clear Urine pH 6 (4.5-8.0) Urine Specific [place] 1.010 (1.005-1.035) Urine Protein 1+ (NEGATIVE) H Urine Glucose (UA) Negative (NEGATIVE) Urine Ketones 1+ (NEGATIVE) H Urine Blood 2+ (NEGATIVE) H Urine Nitrite Negative (NEGATIVE) Urine Bilirubin Negative (NEGATIVE) Urine Urobilinogen Normal MG/DL (0.0-1.0) Urine Leukocyte Esterase Negative (NEGATIVE) Urine RBC 2-4 /HPF (0 - 2) H Urine WBC 0-2 /HPF (0 - 2) Urine Squamous Epithelial Cells Few /LPF (NONE/OCC) Urine Bacteria Few /HPF (NONE) Height (Feet): 5 Height (Inches): 0.00 Weight (Pounds): 125 Medications Current Medications Medications (Trade) Dose Ordered Sig/Wilner Route PRN Reason Start Time Stop Time Status Last Admin Dose Admin Acetaminophen (Tylenol) 650 mg Q4H PRN ORAL Mild Pain (Pain Scale 1-3) 01/13/18 22:30 02/12/18 22:29 Acetaminophen (Tylenol) 650 mg Q4H PRN ORAL fever 01/13/18 22:30 02/12/18 22:29 Acetaminophen/ Hydrocodone Bitart (Dana 5/325) 1 tab Q8HR PRN ORAL For Pain 01/13/18 22:30 01/20/18 22:29 01/13/18 23:02 Albuterol/ Ipratropium (Albuterol/ Ipratropium) 3 ml Q4H PRN HHN Shortness of Breath 01/13/18 22:30 01/18/18 22:29 Albuterol/ Ipratropium (Albuterol/ Ipratropium) 3 ml Q6HRT HHN 01/14/18 01:00 01/19/18 00:59 Allopurinol (Zyloprim) 100 mg BID ORAL 01/13/18 23:00 02/12/18 22:59 Amlodipine Besylate (Norvasc) 10 mg DAILY ORAL 01/14/18 09:00 02/13/18 08:59 Aspirin (Ecotrin) 81 mg DAILY ORAL 01/14/18 09:00 02/13/18 08:59 Azithromycin (Zithromax) 500 mg DAILY ORAL 01/14/18 09:00 01/21/18 08:59 Bisacodyl (Dulcolax) 10 mg HSPRN PRN RECTAL Constipation 01/13/18 22:30 02/12/18 22:29 Clonazepam (KlonoPIN) 1 mg QHS PRN ORAL For Anxiety 01/13/18 22:30 01/20/18 22:29 Dextrose (Dextrose 50%) 25 ml STAT PRN IV Hypoglycemia 01/13/18 22:30 02/12/18 22:29 Dextrose (Dextrose 50%) 50 ml STAT PRN IV Hypoglycemia 01/13/18 22:30 02/12/18 22:29 Dicyclomine HCl (Bentyl) 10 mg EVERY 6 HOURS PRN ORAL for irritable bowel syndrome 01/13/18 22:30 02/12/18 22:29 Docusate Sodium (Colace) 100 mg EVERY 12 HOURS ORAL 01/13/18 22:40 02/12/18 22:39 Escitalopram Oxalate (Lexapro) 10 mg DAILY ORAL 01/14/18 09:00 02/13/18 08:59 Ferrous Sulfate (Feosol) 325 mg DAILY ORAL 01/14/18 09:00 02/13/18 08:59 Guaifenesin (Robitussin) 100 mg Q4H PRN ORAL For Cough 01/13/18 22:45 02/12/18 22:44 Heparin Sodium (Porcine) (Heparin 5000 units/ml) 5,000 units EVERY 12 HOURS SUBQ 01/13/18 23:00 02/12/18 22:59 Lisinopril (Prinivil) 20 mg DAILY ORAL 01/14/18 09:00 02/13/18 08:59 Lorazepam (Ativan) 0.5 mg THREE TIMES A DAY PRN ORAL anxiety 01/13/18 22:30 01/20/18 22:29 Montelukast Sodium (Singulair) 10 mg DAILY ORAL 01/14/18 09:00 02/13/18 08:59 Multivitamins Therapeutic (Therapeutic Multivitamin) 1 ea DAILY ORAL 01/14/18 09:00 02/13/18 08:59 Ondansetron HCl (Zofran) 4 mg Q6H PRN IVP Nausea & Vomiting 01/13/18 22:30 02/12/18 22:29 Piperacillin Sod/ Tazobactam Sod 3.375 gm/Sodium Chloride 110 ml @ 27.5 mls/hr Q8H IVPB 01/14/18 00:00 01/21/18 00:00 Polyethylene Glycol (Miralax) 17 gm HSPRN PRN ORAL Constipation 01/13/18 22:30 02/12/18 22:29 Pravastatin Sodium (Pravachol) 40 mg BEDTIME ORAL 01/13/18 22:50 02/12/18 22:49 01/13/18 23:02 Pregabalin (Lyrica) 225 mg BID ORAL 01/13/18 22:51 02/12/18 22:50 01/13/18 23:12 Tiotropium [place] (Spiriva Inhaler) 1 puff DAILY INH 01/14/18 09:00 02/13/18 08:59 Assessment/Plan Assessment/Plan MDD Anxiety d/o -cont ativan prn -klonopin 1mg qhs -lexapro 10mg Wan Garcia MD Jan 13, 2018 23:18
[2018-01-14] VITALS (8 sets, daily range): BP systolic 101–147; BP diastolic 62–79
[2018-01-14] MEDS ORDERED: Piperacillin/Tazobactam 3.375 GM in NS 110 ML IVPB SCH ×2
[2018-01-14] MEDS: Albuterol/Ipratropium 3ml neb HHN SCH ×4 (01:56→19:57)
[2018-01-14 07:38] LABS: BASOPHILS % (AUTO) 0.4 % (0.0-2.0); EOSINOPHILS % (AUTO) 3.9 % (0.0-3.0); HEMATOCRIT 28.8 % (37.0-47.0); HEMOGLOBIN 9.4 G/DL (12.0-16.0); LYMPHOCYTES % (AUTO) 26.5 % (20.0-45.0); MEAN CORPUSCULAR VOLUME 93 FL (80-99); MONOCYTES % (AUTO) 8.4 % (1.0-10.0); NEUTROPHILS % (AUTO) 60.8 % (45.0-75.0); PLATELET COUNT 203 K/UL (150-450); RED BLOOD COUNT 3.09 M/UL (4.20-5.40); RED CELL DISTRIBUTION WIDTH 13.5 % (11.6-14.8); WHITE BLOOD COUNT 9.4 K/UL (4.8-10.8)
[2018-01-14 07:50] LABS: ANION GAP 6 mmol/L (5-15); BLOOD UREA NITROGEN 30 mg/dL (7-18); CALCIUM 9.2 MG/DL (8.5-10.1); CARBON DIOXIDE 30 MMOL/L (21-32); CHLORIDE 105 MMOL/L (98-107); CREATININE 0.7 MG/DL (0.55-1.30); POTASSIUM 3.9 MMOL/L (3.5-5.1); SODIUM 141 MMOL/L (136-145)
[2018-01-14] MEDS: Heparin 5000 units/ml inj SUBQ SCH ×2 (08:24→20:41)
[2018-01-14] MEDS: Docusate 100mg cap ORAL SCH ×2 (08:29→20:40)
[2018-01-14] MEDS: Multivitamin w/Minerals tab ORAL SCH (08:30)
[2018-01-14] MEDS: Lyrica 75mg cap ORAL SCH ×2 (08:32→17:23)
[2018-01-14] MEDS: Azithromycin 250mg tab ORAL SCH (08:33)
[2018-01-14] MEDS: Norco 5mg/325mg tab ORAL PRN ×2 (08:33→15:55)
[2018-01-14] MEDS: Lisinopril 20mg tab ORAL SCH (08:33)
[2018-01-14] MEDS: Allopurinol 100mg Tab ORAL SCH ×2 (08:34→17:23)
[2018-01-14] MEDS: Montelukast 10mg tablet ORAL SCH (08:34)
[2018-01-14] MEDS: Aspirin EC 81mg tab ORAL SCH (08:37)
[2018-01-14] MEDS: LORazepam 0.5mg tab ORAL PRN ×2 (08:38→15:55)
[2018-01-14] MEDS: guaiFENesin 100mg/5ml Liq ud ORAL PRN ×2 (09:29→20:41)
[2018-01-14] MEDS: Piperacillin/Tazobactam 3.375 GM in D5W 110 ML IVPB SCH ×2 (09:29→22:05)
--- NOTE | 2018-01-14 13:48 | History and Physical ---
History of Present Illness General Date patient seen: Jan 14, 2018 Time patient seen: 11:00 Reason for Hospitalization: Upper Respiratory Illness Present Illness HPI 77 yo woman well-known to me coming in from SNF with cough and congestion. She states she's been "sick" from some time now and keeps getting recurrent pneumonias. Denies fevers or chills. Notes cough and productive sputum. Patient states she had a chest x-ray recently and was sent here for evaluation. Denies chest pain or shortness of breath. No other aggravating relieving factors. Denies any other associated symptoms PMHX:As per HPI DM, HTN, COPD FHx: Reviewed; not pertinent for this encounter SHx: Resides in SNF. No tobacco/EtOH Allergies: Coded Allergies: TETRACYCLINE (Unverified Allergy, Unknown, 07/24/14) TETRACYCLINES (Unverified Allergy, Unknown, 01/13/18) Medication History Scheduled Allopurinol* (Allopurinol*), 100 MG ORAL BID, (Reported) Amlodipine Besylate (Norvasc), 10 MG ORAL DAILY, (Reported) Aspirin Ec* (Aspirin Ec*), 81 MG ORAL DAILY, (Reported) Docusate Sodium* (Colace*), 100 MG ORAL BID, (Reported) Escitalopram Oxalate* (Lexapro*), 10 MG ORAL DAILY, (Reported) Ferrous Sulfate* (Ferrous Sulfate*), 325 MG ORAL DAILY, (Reported) Lactobacillus Combination No.4 (Probiotic), 1 EACH PO BID, (Reported) Lisinopril (Lisinopril*), 20 MG ORAL DAILY, (Reported) Lorazepam* (Ativan*), 0.5 MG ORAL THREE TIMES A DAY, (Reported) Montelukast Sodium* (Montelukast Sodium*), 10 MG ORAL DAILY, (Reported) Multivitamin With Minerals (Multivitamins With Minerals*), 1 TAB ORAL DAILY, ( Reported) Pravastatin Sod* (Pravastatin Sod*), 40 MG ORAL BEDTIME, (Reported) Pregabalin* (Lyrica*), 225 MG ORAL BID, (Reported) Tiotropium [place]* (Spiriva*), 1 PUFF INH DAILY, (Reported) Scheduled PRN Acetaminophen (Acetaminophen), 650 MG ORAL Q4HR PRN for Prn Headache/Temp > 101, (Reported) Clonazepam* (Klonopin*), 1 MG ORAL QHS PRN for For Anxiety, (Reported) Dicyclomine Hcl* (Dicyclomine Hcl*), 10 MG PO EVERY 6 HOURS PRN for For Cough, ( Reported) Hydrocodone Bit/Acetaminophen 5-325* (Rogers 5-325*), 1 TAB ORAL Q8HR PRN for For Pain, (Reported) Miscellaneous Medications Calcium Carbonate/Vitamin D3 (Oyster Shell 500 Mg + Vit D Tb), 1 EACH PO, ( Reported) Cranberry Fruit Concentrate (Cranberry), 450 MG PO, (Reported) Fluticasone/Vilanterol (Breo Ellipta 100-25 Mcg INH), 1 EACH IH, (Reported) Magnesium Oxide (Magnesium Oxide), 240 MG PO, (Reported) Discontinued Medications Calcium Citrate/Vitamin D3 (Calcium Cit-Vit D 315-200 Tab), 2 EACH PO DAILY, ( Reported) Discontinued Reason: Prescription changed Carvedilol* (Carvedilol*), 3.125 MG ORAL, (Reported) Discontinued Reason: Pt stopped taking med Chlorhexidine Gluconate (Chlorhexidine Gluconate), 15 ML NEISHA, (Reported) Discontinued Reason: Pt stopped taking med Citalopram Hydrobromide* (Citalopram Hbr*), 10 MG ORAL DAILY, (Reported) Discontinued Reason: Pt stopped taking med Clonazepam* (Klonopin*), 1 MG ORAL DAILY, (Reported) Discontinued Reason: Pt stopped taking med Docusate Sodium* (Docusate Sodium*), Unknown Dose ORAL THREE TIMES A DAY, ( Reported) Discontinued Reason: Pt stopped taking med Haloperidol Lactate (Haloperidol Lactate), 5 MG IM EVERY 4 HOURS, (Reported) Discontinued Reason: Pt stopped taking med Haloperidol Lactate (Haloperidol Lactate), 2 MG IM EVERY 4 HOURS PRN for Agitation, (Reported) Discontinued Reason: Pt stopped taking med Hydrocodone Bit/Acetaminophen 7.5-325* (Rogers 7.5-325*), 1 TAB ORAL Q4H PRN for For Pain, (Reported) Discontinued Reason: Pt stopped taking med Ipratropium/Albuterol Sulfate (Combivent Respimat Inhal [place]), 18 MCG IH Q4HR, (Reported) Discontinued Reason: Pt stopped taking med Lorazepam (Lorazepam), 0.5 MG IV Q4H PRN for For Anxiety, (Reported) Discontinued Reason: Pt stopped taking med Metoclopramide HCl (Metoclopramide HCl), 5 MG IV Q8HR, (Reported) Discontinued Reason: Pt stopped taking med Morphine Sulfate (Morphine Sulfate), 2 MG IVP EVERY 4 HOURS, (Reported) Discontinued Reason: Pt stopped taking med Mu-Vits-Min Th/Lycopene/Lutein (Centrum Silver Tablet), 1 EACH PO, (Reported) Discontinued Reason: Pt stopped taking med Ondansetron Odt* (Zofran Odt*), 8 MG ORAL Q8HR PRN for Nausea & Vomiting, ( Reported) Discontinued Reason: Pt stopped taking med Potassium Chloride (Potassium Chloride), 8 MEQ PO DAILY, (Reported) Discontinued Reason: Pt stopped taking med Potassium Chloride (Klor-Con 8), 8 MEQ ORAL DAILY, (Reported) Discontinued Reason: Pt stopped taking med Pravastatin Sod* (Pravastatin Sod*), 20 MG ORAL BEDTIME, (Reported) Discontinued Reason: Pt stopped taking med Pregabalin (Lyrica), 225 MG ORAL TWICE A DAY, (Reported) Discontinued Reason: Pt stopped taking med Raloxifene Hcl* (Evista*), 60 MG ORAL DAILY, (Reported) Discontinued Reason: Pt stopped taking med Ranitidine Hcl* (Zantac*), 300 MG ORAL, (Reported) Discontinued Reason: Pt stopped taking med Sennosides (Senna-Gen), 2 TAB ORAL DAILY, (Reported) Discontinued Reason: Pt stopped taking med Silodosin (Rapaflo), 8 MG ORAL DAILY, (Reported) Discontinued Reason: Pt stopped taking med Tramadol Hcl* (Ultram*), 50 MG ORAL Q6H PRN for For Pain, (Reported) Discontinued Reason: Pt stopped taking med Patient History History Provided By: Patient, PMD Healthcare decision maker Resuscitation status Advanced Directive on File Yes Review of Systems Constitutional: Reports: chills, fever, malaise, weakness Eye: Reports: no symptoms ENT: Reports: nose congestion Respiratory: Reports: cough, shortness of breath, sputum Cardiovascular: Reports: no symptoms Gastrointestinal: Reports: no symptoms Genitourinary: Reports: no symptoms Musculoskeletal: Reports: no symptoms Skin: Reports: no symptoms Psychiatric: Reports: no symptoms Neurological: Reports: no symptoms Endocrine: Reports: no symptoms Hematologic/Lymphatic: Reports: no symptoms All Other Systems: negative except mentioned in HPI Physical Exam General Appearance: no apparent distress, alert, thin Lines, tubes and drains: peripheral HEENT: normocephalic, atraumatic, anicteric Neck: non-tender, supple Respiratory/Chest: chest wall non-tender, decreased breath sounds, rhonchi - bilaterally Cardiovascular/Chest: normal peripheral pulses, normal rate, regular rhythm Abdomen: normal bowel sounds, non tender, soft Extremities: normal range of motion, non-tender Skin Exam: normal pigmentation, warm/dry 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, no motor/sensory deficits Lymphatic: anterior cervical, posterior cervical (L) Musculoskeletal: atrophy Last 24 Hour Vital Signs Date Time Temp Pulse Resp B/P (MAP) Pulse Ox O2 Delivery O2 Flow Rate FiO2 01/14/18 13:27 92 18 99 Nasal Cannula 2.0 28 01/14/18 13:12 99 22 92 Nasal Cannula 2.0 28 01/14/18 12:07 97.7 90 18 123/74 (90) 95 97.7 01/14/18 09:03 97.2 01/14/18 09:00 97.8 80 20 137/79 (98) 96 97.8 01/14/18 09:00 Nasal Cannula 2.0 01/14/18 08:33 137/79 01/14/18 08:33 97.2 01/14/18 08:32 97.2 01/14/18 08:32 102 137/79 01/14/18 08:24 106 20 94 Nasal Cannula 2.0 01/14/18 08:22 102 20 95 Nasal Cannula 2.0 28 01/14/18 08:22 68 18 95 Nasal Cannula 2.0 01/14/18 08:12 106 20 94 Nasal Cannula 2.0 28 01/14/18 08:10 95 Nasal Cannula 2.0 28 01/14/18 08:09 Nasal Cannula 2.0 28 01/14/18 08:00 97.4 83 18 124/74 (91) 95 97.4 01/14/18 04:00 97.2 102 18 103/62 (76) 95 97.2 01/14/18 02:11 78 18 97 Nasal Cannula 2.0 28 01/14/18 02:03 Nasal Cannula 2.0 28 01/14/18 02:03 96 Nasal Cannula 2.0 28 01/14/18 02:02 80 18 Nasal Cannula 2.0 28 01/14/18 02:00 80 18 95 Nasal Cannula 2.0 28 01/14/18 00:00 98.2 92 20 108/74 (85) 97 98.2 01/13/18 21:33 Nasal Cannula 2.0 01/13/18 21:00 98.3 103 17 117/57 97 Room Air 2.0 98.3 01/13/18 20:25 97.9 104 17 112/55 (74) 94 97.9 01/13/18 20:17 98.3 103 17 117/57 97 Room Air 2.0 98.3 01/13/18 19:28 98.3 115 17 90/78 97 Room Air 2.0 98.3 01/13/18 19:10 94 16 Room Air 2.0 01/13/18 15:55 94 16 112/67 95 Room Air 01/13/18 15:07 97.1 105 20 113/71 94 Nasal Cannula 3.0 97.2 Intake and Output 01/13/18 01/14/18 19:00 07:00 Intake Total 1625.0 ml Balance 1625.0 ml Intake Oral 240 ml IV Total 1385.0 ml # Voids 2 Laboratory Tests Test 01/13/18 16:00 01/13/18 18:40 01/14/18 06:20 White Blood Count 11.6 K/UL (4.8-10.8) H 9.4 K/UL (4.8-10.8) Red Blood Count 3.31 M/UL (4.20-5.40) L 3.09 M/UL (4.20-5.40) L Hemoglobin 10.5 G/DL (12.0-16.0) L 9.4 G/DL (12.0-16.0) L Hematocrit 30.2 % (37.0-47.0) L 28.8 % (37.0-47.0) L Mean Corpuscular Volume 91 FL (80-99) 93 FL (80-99) Mean Corpuscular Hemoglobin 31.6 PG (27.0-31.0) H 30.4 PG (27.0-31.0) Mean Corpuscular Hemoglobin Concent 34.7 G/DL (32.0-36.0) 32.6 G/DL (32.0-36.0) Red Cell Distribution Width 13.5 % (11.6-14.8) 13.5 % (11.6-14.8) Platelet Count 205 K/UL (150-450) 203 K/UL (150-450) Mean Platelet Volume 6.5 FL (6.5-10.1) 6.8 FL (6.5-10.1) Neutrophils (%) (Auto) 67.9 % (45.0-75.0) 60.8 % (45.0-75.0) Lymphocytes (%) (Auto) 23.6 % (20.0-45.0) 26.5 % (20.0-45.0) Monocytes (%) (Auto) 5.8 % (1.0-10.0) 8.4 % (1.0-10.0) Eosinophils (%) (Auto) 2.3 % (0.0-3.0) 3.9 % (0.0-3.0) H Basophils (%) (Auto) 0.4 % (0.0-2.0) 0.4 % (0.0-2.0) Sodium Level 135 MMOL/L (136-145) L 141 MMOL/L (136-145) Potassium Level 4.3 MMOL/L (3.5-5.1) 3.9 MMOL/L (3.5-5.1) Chloride Level 99 MMOL/L (98-107) 105 MMOL/L (98-107) Carbon Dioxide Level 32 MMOL/L (21-32) 30 MMOL/L (21-32) Anion Gap 4 mmol/L (5-15) L 6 mmol/L (5-15) Blood Urea Nitrogen 35 mg/dL (7-18) H 30 mg/dL (7-18) H Creatinine 0.8 MG/DL (0.55-1.30) 0.7 MG/DL (0.55-1.30) Estimat Glomerular Filtration Rate mL/min (>60) mL/min (>60) Glucose Level 105 MG/DL (74-106) 95 MG/DL (74-106) Lactic Acid Level 0.60 mmol/L (0.4-2.0) Calcium Level 10.2 MG/DL (8.5-10.1) H 9.2 MG/DL (8.5-10.1) Total Bilirubin 0.3 MG/DL (0.2-1.0) Aspartate Amino Transf (AST/SGOT) 16 U/L (15-37) Alanine Aminotransferase (ALT/SGPT) 21 U/L (12-78) Alkaline Phosphatase 90 U/L (46-116) Total Creatine Kinase 39 U/L (26-308) Creatine Kinase MB 0.9 NG/ML (0.0-3.6) Creatine Kinase MB Relative Index 2.3 Troponin I 0.000 ng/mL (0.000-0.056) Pro-B-Type Natriuretic Peptide 377 pg/mL (0-125) H Total Protein 7.4 G/DL (6.4-8.2) Albumin 3.2 G/DL (3.4-5.0) L Globulin 4.2 g/dL Albumin/Globulin Ratio 0.8 (1.0-2.7) L Urine Color Pale yellow Urine Appearance Clear Urine pH 6 (4.5-8.0) Urine Specific [place] 1.010 (1.005-1.035) Urine Protein 1+ (NEGATIVE) H Urine Glucose (UA) Negative (NEGATIVE) Urine Ketones 1+ (NEGATIVE) H Urine Blood 2+ (NEGATIVE) H Urine Nitrite Negative (NEGATIVE) Urine Bilirubin Negative (NEGATIVE) Urine Urobilinogen Normal MG/DL (0.0-1.0) Urine Leukocyte Esterase Negative (NEGATIVE) Urine RBC 2-4 /HPF (0 - 2) H Urine WBC 0-2 /HPF (0 - 2) Urine Squamous Epithelial Cells Few /LPF (NONE/OCC) Urine Bacteria Few /HPF (NONE) Microbiology Date/Time Source Procedure Growth Status 01/13/18 20:24 Rectum Received Height (Feet): 5 Height (Inches): 0.00 Weight (Pounds): 127 Medications Current Medications Medications (Trade) Dose Ordered Sig/Wilner Route PRN Reason Start Time Stop Time Status Last Admin Dose Admin Acetaminophen (Tylenol) 650 mg Q4H PRN ORAL Mild Pain (Pain Scale 1-3) 01/13/18 22:30 02/12/18 22:29 Acetaminophen (Tylenol) 650 mg Q4H PRN ORAL fever 01/13/18 22:30 02/12/18 22:29 Acetaminophen/ Hydrocodone Bitart (Rogers 5/325) 1 tab Q8HR PRN ORAL For Pain 01/13/18 22:30 01/20/18 22:29 01/14/18 08:33 Albuterol/ Ipratropium (Albuterol/ Ipratropium) 3 ml Q4H PRN HHN Shortness of Breath 01/13/18 22:30 01/18/18 22:29 Albuterol/ Ipratropium (Albuterol/ Ipratropium) 3 ml Q6HRT HHN 01/14/18 01:00 01/19/18 00:59 01/14/18 13:12 Allopurinol (Zyloprim) 100 mg BID ORAL 01/13/18 23:00 02/12/18 22:59 01/14/18 08:34 Amlodipine Besylate (Norvasc) 10 mg DAILY ORAL 01/14/18 09:00 02/13/18 08:59 01/14/18 08:32 Aspirin (Ecotrin) 81 mg DAILY ORAL 01/14/18 09:00 02/13/18 08:59 01/14/18 08:37 Azithromycin (Zithromax) 500 mg DAILY ORAL 01/14/18 09:00 01/21/18 08:59 01/14/18 08:33 Bisacodyl (Dulcolax) 10 mg HSPRN PRN RECTAL Constipation 01/13/18 22:30 02/12/18 22:29 Clonazepam (KlonoPIN) 1 mg QHS ORAL 01/14/18 21:00 01/21/18 20:59 Dextrose (Dextrose 50%) 25 ml STAT PRN IV Hypoglycemia 01/13/18 22:30 02/12/18 22:29 Dextrose (Dextrose 50%) 50 ml STAT PRN IV Hypoglycemia 01/13/18 22:30 02/12/18 22:29 Dicyclomine HCl (Bentyl) 10 mg Q6H PRN ORAL for irritable bowel syndrome 01/14/18 08:45 02/12/18 08:44 Docusate Sodium (Colace) 100 mg EVERY 12 HOURS ORAL 01/13/18 22:40 02/12/18 22:39 Escitalopram Oxalate (Lexapro) 10 mg DAILY ORAL 01/14/18 09:00 02/13/18 08:59 01/14/18 08:30 Ferrous Sulfate (Feosol) 325 mg DAILY ORAL 01/14/18 09:00 02/13/18 08:59 01/14/18 08:34 Guaifenesin (Robitussin) 100 mg Q4H PRN ORAL For Cough 01/13/18 22:45 02/12/18 22:44 01/14/18 09:29 Heparin Sodium (Porcine) (Heparin 5000 units/ml) 5,000 units EVERY 12 HOURS SUBQ 01/13/18 23:00 02/12/18 22:59 Lisinopril (Prinivil) 20 mg DAILY ORAL 01/14/18 09:00 02/13/18 08:59 01/14/18 08:33 Lorazepam (Ativan) 0.5 mg THREE TIMES A DAY PRN ORAL anxiety 01/13/18 22:30 01/20/18 22:29 01/14/18 08:38 Montelukast Sodium (Singulair) 10 mg DAILY ORAL 01/14/18 09:00 02/13/18 08:59 01/14/18 08:34 Multivitamins Therapeutic (Therapeutic Multivitamin) 1 ea DAILY ORAL 01/14/18 09:00 02/13/18 08:59 01/14/18 08:30 Ondansetron HCl (Zofran) 4 mg Q6H PRN IVP Nausea & Vomiting 01/13/18 22:30 02/12/18 22:29 Piperacillin Sod/ Tazobactam Sod 3.375 gm/Dextrose 110 ml @ 27.5 mls/hr Q8HR IVPB 01/14/18 09:00 01/21/18 08:59 01/14/18 09:29 Polyethylene Glycol (Miralax) 17 gm HSPRN PRN ORAL Constipation 01/13/18 22:30 02/12/18 22:29 Pravastatin Sodium (Pravachol) 40 mg BEDTIME ORAL 01/13/18 22:50 02/12/18 22:49 01/13/18 23:02 Pregabalin (Lyrica) 225 mg BID ORAL 01/13/18 22:51 02/12/18 22:50 01/13/18 23:12 Tiotropium [place] (Spiriva Inhaler) 1 puff DAILY INH 01/14/18 09:00 02/13/18 08:59 01/14/18 08:22 Assessment/Plan Status: not improved Status Narrative 77 yo woman with fever, acute hypoxemic respiratory failure and infiltrate on CXR consistent with recurrent pneumonia Assessment/Plan 1) Pneumonia Acute hypoxemic respiratory failure r/o Sepsis, pulmonary source -Continue IV antibiotics -continue O2 support Follow up cultures- UA, blood and lactic acid follow vital signs closely- 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 2) DM -hold oral meds -ISS 3) HTN -continue meds 4) COPD -continue inhalers Duonebs PRN 5) Anxiety -continue anxiolytics -Psych consulted- recs appreciated 6) Anemia -trend; no signs of bleed -check iron studies DVT Prophylaxis: SCD's, heparin Code Status: Full Hospital Classification declaration: Based on this initial evaluation and depending on the patient's clinical course I anticipate that this patient will require hospitalization for at least 2-3 days Disposition: Once the patient is stable to leave the hospital I anticipate the patient will likely be discharged to the following environment: Home I spent 70 minutes on this patients care and 36 minutes was dedicated to counseling and care coordination Time of note may not reflect time of encounter Torito Edward MD Jan 14, 2018 13:48
--- NOTE | 2018-01-14 21:29 | General Progress Note ---
Assessment/Plan Status: stable, progressing Assessment/Plan MDD Anxiety d/o -cont ativan prn -klonopin 1mg qhs -lexapro 10mg qam Subjective Date patient seen: Jan 14, 2018 Neurologic/Psychiatric: Reports: anxiety, depressed, emotional problems Allergies: Coded Allergies: TETRACYCLINE (Unverified Allergy, Unknown, 07/24/14) TETRACYCLINES (Unverified Allergy, Unknown, 01/13/18) Objective Last 24 Hour Vital Signs Date Time Temp Pulse Resp B/P (MAP) Pulse Ox O2 Delivery O2 Flow Rate FiO2 01/14/18 20:07 105 20 98 Nasal Cannula 2.0 28 01/14/18 19:57 97 Nasal Cannula 2.0 28 01/14/18 19:57 Nasal Cannula 2.0 28 01/14/18 19:57 110 20 97 Nasal Cannula 2.0 28 01/14/18 16:00 97.8 108 18 101/74 (83) 95 97.8 01/14/18 15:55 97.7 01/14/18 13:27 92 18 99 Nasal Cannula 2.0 01/14/18 13:12 99 22 92 Nasal Cannula 2.0 28 01/14/18 12:07 97.7 90 18 123/74 (90) 95 97.7 01/14/18 09:03 97.2 01/14/18 09:00 97.8 80 20 137/79 (98) 96 97.8 01/14/18 09:00 Nasal Cannula 2.0 01/14/18 08:33 137/79 01/14/18 08:33 97.2 01/14/18 08:32 97.2 01/14/18 08:32 102 137/79 01/14/18 08:24 106 20 94 Nasal Cannula 2.0 01/14/18 08:22 102 20 95 Nasal Cannula 2.0 28 01/14/18 08:22 68 18 95 Nasal Cannula 2.0 01/14/18 08:12 106 20 94 Nasal Cannula 2.0 01/14/18 08:10 95 Nasal Cannula 2.0 28 01/14/18 08:09 Nasal Cannula 2.0 28 01/14/18 08:00 97.4 83 18 124/74 (91) 95 97.4 01/14/18 04:00 97.2 102 18 103/62 (76) 95 97.2 01/14/18 02:11 78 18 97 Nasal Cannula 2.0 28 01/14/18 02:03 Nasal Cannula 2.0 28 01/14/18 02:03 96 Nasal Cannula 2.0 28 01/14/18 02:02 80 18 Nasal Cannula 2.0 28 01/14/18 02:00 80 18 95 Nasal Cannula 2.0 28 01/14/18 00:00 98.2 92 20 108/74 (85) 97 98.2 01/13/18 21:33 Nasal Cannula 2.0 Intake and Output 01/13/18 01/14/18 19:00 07:00 Intake Total 1625.0 ml Balance 1625.0 ml Intake Oral 240 ml IV Total 1385.0 ml # Voids 2 Laboratory Tests 01/14/18 06:20: White Blood Count 9.4, Red Blood Count 3.09L, Hemoglobin 9.4L, Hematocrit 28.8L , Mean Corpuscular Volume 93, Mean Corpuscular Hemoglobin 30.4, Mean Corpuscular Hemoglobin Concent 32.6, Red Cell Distribution Width 13.5, Platelet Count 203, Mean Platelet Volume 6.8, Neutrophils (%) (Auto) 60.8, Lymphocytes (% ) (Auto) 26.5, Monocytes (%) (Auto) 8.4, Eosinophils (%) (Auto) 3.9H, Basophils (%) (Auto) 0.4, Sodium Level 141, Potassium Level 3.9, Chloride Level 105, Carbon Dioxide Level 30, Anion Gap 6, Blood Urea Nitrogen 30H, Creatinine 0.7, Estimat Glomerular Filtration Rate , Glucose Level 95, Calcium Level 9.2 Height (Feet): 5 Height (Inches): 0.00 Weight (Pounds): 127 General Appearance: no apparent distress, alert Neurologic: oriented x 3, responsive, depressed affect Wan Stern MD Jan 14, 2018 21:29
[2018-01-15] VITALS: BP 104/61
[2018-01-15] MEDS: Albuterol/Ipratropium 3ml neb HHN SCH ×4 (01:00→19:00)
[2018-01-15 04:00] VITALS: BP 133/70
[2018-01-15] MEDS: Piperacillin/Tazobactam 3.375 GM in D5W 110 ML IVPB SCH ×3 (06:18→22:42)
[2018-01-15 08:00] VITALS: BP 138/70
[2018-01-15] MEDS: Heparin 5000 units/ml inj SUBQ SCH ×2 (09:00→20:25)
[2018-01-15] MEDS: Allopurinol 100mg Tab ORAL SCH ×3 (09:00→17:25)
[2018-01-15] MEDS: Aspirin EC 81mg tab ORAL SCH (09:00)
[2018-01-15] MEDS: Docusate 100mg cap ORAL SCH ×2 (09:00→20:23)
[2018-01-15] MEDS: Lyrica 75mg cap ORAL SCH ×2 (09:00→17:25)
[2018-01-15] MEDS: Multivitamin w/Minerals tab ORAL SCH (09:00)
[2018-01-15] MEDS: Azithromycin 250mg tab ORAL SCH (09:20)
[2018-01-15] MEDS: Montelukast 10mg tablet ORAL SCH (09:20)
[2018-01-15] MEDS: Lisinopril 20mg tab ORAL SCH (09:21)
[2018-01-15] MEDS: Norco 5mg/325mg tab ORAL PRN ×3 (09:59→22:19)
[2018-01-15 10:18] LABS: FERRITIN 210 NG/ML (8-388); LACTATE DEHYDROGENASE 125 U/L (81-234)
[2018-01-15 10:43] LABS: % IRON SATURATION 33 % (15-50); IRON 69 ug/dL (50-175); TOTAL IRON BINDING CAPACITY 208 ug/dL (250-450)
--- NOTE | 2018-01-15 11:54 | General Progress Note ---
Assessment/Plan Status: stable Assessment/Plan MDD Anxiety d/o -ativan 1mg 1mg po qid/prn -klonopin 1mg qhs -lexapro 10mg qam Subjective Date patient seen: Jan 15, 2018 Neurologic/Psychiatric: Reports: anxiety, depressed, emotional problems Allergies: Coded Allergies: TETRACYCLINE (Unverified Allergy, Unknown, 07/24/14) TETRACYCLINES (Unverified Allergy, Unknown, 01/13/18) Subjective the pt has severe anxiety and stated that she has had anxiety since she was young. Objective Last 24 Hour Vital Signs Date Time Temp Pulse Resp B/P (MAP) Pulse Ox O2 Delivery O2 Flow Rate FiO2 01/15/18 09:21 138/70 01/15/18 09:21 93 138/70 01/15/18 08:30 Nasal Cannula 2.0 01/15/18 08:00 97.3 93 18 138/70 (92) 96 97.3 01/15/18 07:40 Nasal Cannula 2.0 01/15/18 07:38 Nasal Cannula 2.0 01/15/18 07:37 Nasal Cannula 2.0 28 01/15/18 07:36 96 Nasal Cannula 2.0 28 01/15/18 04:00 97.2 90 20 133/70 (91) 94 97.2 01/15/18 01:27 Nasal Cannula 2.0 28 01/15/18 01:27 Nasal Cannula 2.0 28 01/15/18 00:00 97.9 95 20 104/61 (75) 90 97.9 01/14/18 21:00 Nasal Cannula 2.0 01/14/18 21:00 98.9 110 20 147/79 (101) 98.9 01/14/18 20:07 105 20 98 Nasal Cannula 2.0 28 01/14/18 20:00 98.9 110 20 147/79 (101) 98.9 01/14/18 19:57 97 Nasal Cannula 2.0 28 01/14/18 19:57 Nasal Cannula 2.0 28 01/14/18 19:57 110 20 97 Nasal Cannula 2.0 28 01/14/18 16:00 97.8 108 18 101/74 (83) 95 97.8 01/14/18 15:55 97.7 01/14/18 13:27 92 18 99 Nasal Cannula 2.0 28 01/14/18 13:12 99 22 92 Nasal Cannula 2.0 28 01/14/18 12:07 97.7 90 18 123/74 (90) 95 97.7 Intake and Output 01/14/18 01/15/18 19:00 07:00 Intake Total 480 ml 470.0 ml Balance 480 ml 470.0 ml Intake Oral 480 ml 360 ml IV Total 110.0 ml # Voids 5 2 # Bowel Movements 4 1 Laboratory Tests 01/15/18 06:00: Stool Occult Blood [Pending] 01/15/18 08:10: Reticulocyte Count [Pending], Sickle Cell Screen [Pending], Prothrombin Time 10.3, Prothromb Time International Ratio 1.0, Uric Acid 2.3L, Iron Level 69, Total Iron Binding Capacity 208L, Percent Iron Saturation 33, Unsaturated Iron Binding 139, Ferritin 210, Lactate Dehydrogenase 125, Vitamin B12 Level 464, Folate 19.3, Thyroid Stimulating Hormone (TSH) 0.305L Height (Feet): 5 Height (Inches): 0.00 Weight (Pounds): 127 General Appearance: WD/WN, no apparent distress, alert Neurologic: oriented x 3, responsive, depressed affect Wan Stern MD Jan 15, 2018 11:54
[2018-01-15 12:00] VITALS: BP 149/86
[2018-01-15] MEDS ORDERED: LORazepam 0.5mg tab ORAL PRN (12:00)
[2018-01-15 12:03] LABS: HEMATOCRIT 32.8 % (37.0-47.0); HEMOGLOBIN 10.3 G/DL (12.0-16.0); MEAN CORPUSCULAR VOLUME 93 FL (80-99); PLATELET COUNT 264 K/UL (150-450); RED BLOOD COUNT 3.52 M/UL (4.20-5.40); RED CELL DISTRIBUTION WIDTH 13.5 % (11.6-14.8); WHITE BLOOD COUNT 6.6 K/UL (4.8-10.8)
[2018-01-15] MEDS: LORazepam 0.5mg tab ORAL PRN ×2 (12:04→18:28)
--- NOTE | 2018-01-15 14:32 | General Progress Note ---
Assessment/Plan Status: progressing Status Narrative 77 yo woman with fever, acute hypoxemic respiratory failure and infiltrate on CXR consistent with recurrent pneumonia Assessment/Plan 1) Pneumonia Acute hypoxemic respiratory failure r/o Sepsis, pulmonary source -Continue IV antibiotics -continue O2 support Follow up cultures- UA, blood and lactic acid- negative do date follow vital signs closely- patient tachycardic- improving -leukocytosis improving as well on antbiotics CALL OR CONTACT CENTRE MANAGER evaluation to r/o aspiration 2) DM -hold oral meds -ISS 3) HTN -continue meds 4) COPD -continue inhalers Duonebs PRN 5) Anxiety -continue anxiolytics -Psych consulted- recs appreciated 6) Anemia -trend; no signs of bleed -check iron studies -Hematology consult- f/u recs DVT Prophylaxis: scd Code status: full Hospital Classification declaration: Based on this initial evaluation, and depending on the patient's clinical course, I anticipate that this patient will require hospitalization for 2-3 days. Disposition: Once the patient is stable to leave the hospital, I anticipate the patient will likely be discharged to the following environment:SNF I spent 45 minutes on this patient's case, and 23 minutes was dedicated to counseling and/or care coordination. Time of note may not reflect time of encounter. Subjective Date patient seen: Jan 15, 2018 Time patient seen: 14:00 ROS Limited/Unobtainable: No Constitutional: Reports: chills, malaise, weakness HEENT: Reports: no symptoms Cardiovascular: Reports: no symptoms Respiratory: Reports: cough Gastrointestinal/Abdominal: Reports: no symptoms Genitourinary: Reports: no symptoms Neurologic/Psychiatric: Reports: no symptoms Endocrine: Reports: no symptoms Hematologic/Lymphatic: Reports: no symptoms Allergies: Coded Allergies: TETRACYCLINE (Unverified Allergy, Unknown, 07/24/14) TETRACYCLINES (Unverified Allergy, Unknown, 01/13/18) All Systems: reviewed and negative except above Subjective Events of overnight noted Chart reviewed by me Objective Last 24 Hour Vital Signs Date Time Temp Pulse Resp B/P (MAP) Pulse Ox O2 Delivery O2 Flow Rate FiO2 01/15/18 12:49 79 18 99 Nasal Cannula 2.0 01/15/18 12:46 77 16 99 Nasal Cannula 2.0 01/15/18 12:41 77 18 99 Nasal Cannula 2.0 28 01/15/18 12:31 76 18 95 Nasal Cannula 2.0 28 01/15/18 12:00 97.5 94 20 149/86 (107) 95 97.5 01/15/18 09:21 138/70 01/15/18 09:21 93 138/70 01/15/18 08:30 Nasal Cannula 2.0 01/15/18 08:00 97.3 93 18 138/70 (92) 96 97.3 01/15/18 07:40 Nasal Cannula 2.0 01/15/18 07:38 Nasal Cannula 2.0 01/15/18 07:37 Nasal Cannula 2.0 28 01/15/18 07:36 96 Nasal Cannula 2.0 28 01/15/18 04:00 97.2 90 20 133/70 (91) 94 97.2 01/15/18 01:27 Nasal Cannula 2.0 01/15/18 01:27 Nasal Cannula 2.0 28 01/15/18 00:00 97.9 95 20 104/61 (75) 90 97.9 01/14/18 21:00 Nasal Cannula 2.0 01/14/18 21:00 98.9 110 20 147/79 (101) 98.9 01/14/18 20:07 105 20 98 Nasal Cannula 2.0 28 01/14/18 20:00 98.9 110 20 147/79 (101) 98.9 01/14/18 19:57 97 Nasal Cannula 2.0 01/14/18 19:57 Nasal Cannula 2.0 01/14/18 19:57 110 20 97 Nasal Cannula 2.0 01/14/18 16:00 97.8 108 18 101/74 (83) 95 97.8 01/14/18 15:55 97.7 Intake and Output 01/14/18 01/15/18 19:00 07:00 Intake Total 480 ml 470.0 ml Balance 480 ml 470.0 ml Intake Oral 480 ml 360 ml IV Total 110.0 ml # Voids 5 2 # Bowel Movements 4 1 Laboratory Tests 01/15/18 06:00: Stool Occult Blood Negative 01/15/18 08:10: White Blood Count 6.6, Red Blood Count 3.52L, Hemoglobin 10.3L, Hematocrit 32.8L , Mean Corpuscular Volume 93, Mean Corpuscular Hemoglobin 29.1, Mean Corpuscular Hemoglobin Concent 31.3L, Red Cell Distribution Width 13.5, Platelet Count 264, Mean Platelet Volume 6.3L, Neutrophils (%) (Auto) , Lymphocytes (%) (Auto) , Monocytes (%) (Auto) , Eosinophils (%) (Auto) , Basophils (%) (Auto) , Differential Total Cells Counted 100, Neutrophils % ( Manual) 58, Lymphocytes % (Manual) 27, Monocytes % (Manual) 6, Eosinophils % ( Manual) 7H, Basophils % (Manual) 0, Band Neutrophils 2, Platelet Estimate Adequate, Platelet Morphology Normal, Hypochromasia 1+, Reticulocyte Count [ Pending], Sickle Cell Screen [Pending], Prothrombin Time 10.3, Prothromb Time International Ratio 1.0, Uric Acid 2.3L, Iron Level 69, Total Iron Binding Capacity 208L, Percent Iron Saturation 33, Unsaturated Iron Binding 139, Ferritin 210, Lactate Dehydrogenase 125, Vitamin B12 Level 464, Folate 19.3, Thyroid Stimulating Hormone (TSH) 0.305L Height (Feet): 5 Height (Inches): 0.00 Weight (Pounds): 127 General Appearance: no apparent distress, thin EENT: PERRL/EOMI, normal ENT inspection, TMs normal, pharynx normal Neck: non-tender, supple Cardiovascular: normal peripheral pulses, normal rate, regular rhythm Respiratory/Chest: chest wall non-tender, decreased breath sounds, rhonchi - bilaterally Abdomen: normal bowel sounds, non tender, soft Pelvis: normal external exam Extremities: normal range of motion Edema: no edema noted Arm (L), no edema noted Arm (R) Neurologic: supervisor painting II-XII grossly normal, alert Skin: normal pigmentation, palled Lymphatic: normal anterior cervical (L), normal anterior cervical (R) Torito Edward MD Jan 15, 2018 14:32
[2018-01-15 16:00] VITALS: BP 131/68
--- NOTE | 2018-01-15 16:18 | Consultation ---
Consult Note Consult Note DATE OF CONSULTATION: 01/14/2018 HEMATOLOGY-ONCOLOGY CONSULTATION REFERRING PHYSICIAN: Delia Dennis REASON FOR CONSULTATION: Evaluation of anemia. HISTORY OF PRESENT ILLNESS: 77 yo woman well-known to me coming in from SNF with cough and congestion. She states she's been "sick" from some time now and keeps getting recurrent pneumonia. Pt denies fevers or chills. Notes cough and productive sputum. Patient states she had a chest x-ray recently and was sent here for evaluation. Denies chest pain or shortness of breath. Denies any other associated symptoms. I have been consulted for the evaluation and management of anemia. Anemia w/u to be obtained. PAST MEDICAL HISTORY: DM, HTN, COPD FAMILY HISTORY: Reviewed; not pertinent for this encounter SOCIAL HISTORY: Resides in [facility]. No tobacco or alcohol. Allergies: Coded Allergies: TETRACYCLINE (Unverified Allergy, Unknown, 07/24/14) TETRACYCLINES (Unverified Allergy, Unknown, 01/13/18) Medication History Scheduled Allopurinol* (Allopurinol*), 100 MG ORAL BID, (Reported) Amlodipine Besylate (Norvasc), 10 MG ORAL DAILY, (Reported) Aspirin Ec* (Aspirin Ec*), 81 MG ORAL DAILY, (Reported) Docusate Sodium* (Colace*), 100 MG ORAL BID, (Reported) Escitalopram Oxalate* (Lexapro*), 10 MG ORAL DAILY, (Reported) Ferrous Sulfate* (Ferrous Sulfate*), 325 MG ORAL DAILY, (Reported) Lactobacillus Combination No.4 (Probiotic), 1 EACH PO BID, (Reported) Lisinopril (Lisinopril*), 20 MG ORAL DAILY, (Reported) Lorazepam* (Ativan*), 0.5 MG ORAL THREE TIMES A DAY, (Reported) Montelukast Sodium* (Montelukast Sodium*), 10 MG ORAL DAILY, (Reported) Multivitamin With Minerals (Multivitamins With Minerals*), 1 TAB ORAL DAILY, ( Reported) Pravastatin Sod* (Pravastatin Sod*), 40 MG ORAL BEDTIME, (Reported) Pregabalin* (Lyrica*), 225 MG ORAL BID, (Reported) Tiotropium [place]* (Spiriva*), 1 PUFF INH DAILY, (Reported) Scheduled PRN Acetaminophen (Acetaminophen), 650 MG ORAL Q4HR PRN for Prn Headache/Temp > 101, (Reported) Clonazepam* (Klonopin*), 1 MG ORAL QHS PRN for For Anxiety, (Reported) Dicyclomine Hcl* (Dicyclomine Hcl*), 10 MG PO EVERY 6 HOURS PRN for For Cough, ( Reported) Hydrocodone Bit/Acetaminophen 5-325* (Min[place] 5-325*), 1 TAB ORAL Q8HR PRN for For Pain, (Reported) Miscellaneous Medications Calcium Carbonate/Vitamin D3 (Oyster Shell 500 Mg + Vit D Tb), 1 EACH PO, ( Reported) Cranberry Fruit Concentrate (Cranberry), 450 MG PO, (Reported) Fluticasone/Vilanterol (Breo Ellipta 100-25 Mcg INH), 1 EACH IH, (Reported) Magnesium Oxide (Magnesium Oxide), 240 MG PO, (Reported) Patient History History Provided By: Patient, PMD Healthcare decision maker Resuscitation status Advanced Directive on File Yes Review of Systems Constitutional: Reports: chills, fever, malaise, weakness Eye: Reports: no symptoms ENT: Reports: nose congestion Respiratory: Reports: cough, shortness of breath, sputum Cardiovascular: Reports: no symptoms Gastrointestinal: Reports: no symptoms Genitourinary: Reports: no symptoms Musculoskeletal: Reports: no symptoms Skin: Reports: no symptoms Psychiatric: Reports: no symptoms Neurological: Reports: no symptoms Endocrine: Reports: no symptoms Hematologic/Lymphatic: Reports: no symptoms All Other Systems: negative except mentioned in HPI Physical Exam General Appearance: no apparent distress, alert, thin Lines, tubes and drains: peripheral HEENT: normocephalic, atraumatic, anicteric Neck: non-tender, supple Respiratory/Chest: chest wall non-tender, decreased breath sounds, rhonchi - bilaterally Cardiovascular/Chest: normal peripheral pulses, normal rate, regular rhythm Abdomen: normal bowel sounds, non tender, soft Extremities: normal range of motion, non-tender Skin Exam: normal pigmentation, warm/dry Neurologic: green material 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 --> Anemia w/u has been reviewed. --> Continue to closely monitor for stability. --> Hgb goal above 7 # Pneumonia, Acute hypoxemic respiratory failure. r/o Sepsis, pulmonary source --> Continue IV antibiotics --> continue O2 support --> Follow up cultures- UA, blood and lactic acid # DM. A1C goal less than 7 # HTN. Continue current meds # COPD --> continue inhalers --> Duonebs PRN I GREATLY APPRECIATE THE CONSULTATION. Abram Kearns MD Jan 15, 2018 16:18
[2018-01-15] MEDS: Dicyclomine 10mg Cap ORAL PRN (17:15)
[2018-01-15 20:00] VITALS: BP 128/83
[2018-01-15] MEDS: guaiFENesin 100mg/5ml Liq ud ORAL PRN (22:45)
[2018-01-16] VITALS: BP 136/74
[2018-01-16] MEDS: Albuterol/Ipratropium 3ml neb HHN SCH ×4 (00:47→20:12)
[2018-01-16 04:00] VITALS: BP_SYST 111; BP_SYST 152; BP_DIAS 57; BP_DIAS 87
[2018-01-16] MEDS: Piperacillin/Tazobactam 3.375 GM in D5W 110 ML IVPB SCH ×3 (05:52→21:43)
[2018-01-16] MEDS: Dicyclomine 10mg Cap ORAL PRN (06:51)
[2018-01-16 08:00] VITALS: BP 154/89
[2018-01-16] MEDS: Azithromycin 250mg tab ORAL SCH (08:50)
[2018-01-16] MEDS: Lyrica 75mg cap ORAL SCH ×2 (08:51→17:27)
[2018-01-16] MEDS: Docusate 100mg cap ORAL SCH ×2 (08:51→20:24)
[2018-01-16] MEDS: Aspirin EC 81mg tab ORAL SCH (08:51)
[2018-01-16] MEDS: Lisinopril 20mg tab ORAL SCH (08:51)
[2018-01-16] MEDS: LORazepam 0.5mg tab ORAL PRN ×3 (08:51→19:32)
[2018-01-16] MEDS: Montelukast 10mg tablet ORAL SCH (08:52)
[2018-01-16] MEDS: Multivitamin w/Minerals tab ORAL SCH (08:52)
[2018-01-16] MEDS: Allopurinol 100mg Tab ORAL SCH ×2 (08:52→17:27)
[2018-01-16] MEDS: Heparin 5000 units/ml inj SUBQ SCH ×2 (08:52→20:24)
--- NOTE | 2018-01-16 11:45 | General Progress Note ---
Assessment/Plan Status: stable Assessment/Plan # Anemia of chronic disease. --> Anemia w/u has been reviewed. Will trend CBC as needed. --> Continue to closely monitor for stability. --> Hgb goal above 7 # Pneumonia, Acute hypoxemic respiratory failure. r/o Sepsis, pulmonary source --> Continue IV antibiotics --> continue O2 support --> Follow up cultures- UA, blood and lactic acid # DM. A1C goal less than 7 # HTN. Continue current meds # COPD --> continue inhalers --> Duonebs PRN Subjective Date patient seen: Jan 15, 2018 Time patient seen: 07:00 ROS Limited/Unobtainable: Yes Hematologic/Lymphatic: Reports: anemia Allergies: Coded Allergies: TETRACYCLINE (Unverified Allergy, Unknown, 07/24/14) TETRACYCLINES (Unverified Allergy, Unknown, 01/13/18) All Systems: reviewed and negative except above Subjective Pt awake and alert. No acute events. Objective Last 24 Hour Vital Signs Date Time Temp Pulse Resp B/P (MAP) Pulse Ox O2 Delivery O2 Flow Rate FiO2 01/16/18 09:08 78 20 99 Nasal Cannula 2.0 28 01/16/18 09:07 Nasal Cannula 2.0 28 01/16/18 09:07 77 18 97 Nasal Cannula 2.0 28 01/16/18 09:07 97 Nasal Cannula 2.0 28 01/16/18 09:00 Nasal Cannula 2.0 01/16/18 08:51 154/89 01/16/18 08:50 83 154/89 01/16/18 08:00 97.0 83 19 154/89 (110) 97 97.0 01/16/18 07:42 Nasal Cannula 2.0 28 01/16/18 07:41 Nasal Cannula 2.0 28 01/16/18 04:00 97.5 88 20 152/87 (108) 96 97.5 01/16/18 00:47 Nasal Cannula 2.0 28 01/16/18 00:47 Nasal Cannula 2.0 28 01/16/18 00:00 97.7 89 20 136/74 (94) 97 97.7 01/15/18 22:49 97.7 01/15/18 22:19 98.1 01/15/18 21:00 Nasal Cannula 2.0 01/15/18 20:00 98.1 96 20 128/83 (98) 93 98.1 01/15/18 19:08 Nasal Cannula 2.0 28 01/15/18 19:08 87 18 97 Nasal Cannula 2.0 28 01/15/18 19:04 99 Nasal Cannula 2.0 28 01/15/18 19:04 Nasal Cannula 2.0 28 01/15/18 16:00 98.3 95 20 131/68 (89) 94 98.3 01/15/18 12:49 79 18 99 Nasal Cannula 2.0 01/15/18 12:46 77 16 99 Nasal Cannula 2.0 01/15/18 12:41 77 18 99 Nasal Cannula 2.0 28 01/15/18 12:31 76 18 95 Nasal Cannula 2.0 28 01/15/18 12:00 97.5 94 20 149/86 (107) 95 97.5 Intake and Output 01/15/18 01/16/18 19:00 07:00 Intake Total 387.5 ml 230.0 ml Output Total 600 ml Balance -212.5 ml 230.0 ml Intake Oral 360 ml 120 ml IV Total 27.5 ml 110.0 ml Output Urine Total 600 ml # Voids 2 # Bowel Movements 1 Height (Feet): 5 Height (Inches): 0.00 Weight (Pounds): 127 General Appearance: no apparent distress EENT: PERRL/EOMI Neck: normal alignment Cardiovascular: normal peripheral pulses Respiratory/Chest: no respiratory distress Abdomen: soft Abram Kearns MD Jan 16, 2018 11:45
[2018-01-16 12:00] VITALS: BP 146/78
[2018-01-16] MEDS: Metoclopramide 10mg/2ml Inj IVP PRN (12:18)
[2018-01-16] MEDS: Norco 5mg/325mg tab ORAL PRN ×2 (12:18→20:33)
[2018-01-16 14:18] LABS: HEMATOCRIT 33.4 % (37.0-47.0); HEMOGLOBIN 10.7 G/DL (12.0-16.0); MEAN CORPUSCULAR VOLUME 92 FL (80-99); PLATELET COUNT 298 K/UL (150-450); RED BLOOD COUNT 3.64 M/UL (4.20-5.40); RED CELL DISTRIBUTION WIDTH 13.6 % (11.6-14.8); WHITE BLOOD COUNT 5.8 K/UL (4.8-10.8)
[2018-01-16 14:33] LABS: ALANINE AMINOTRANSFERASE 20 U/L (12-78); ALBUMIN 3.2 G/DL (3.4-5.0); ALBUMIN/GLOBULIN RATIO 0.8 (1.0-2.7); ALKALINE PHOSPHATASE 78 U/L (46-116); ANION GAP 7 mmol/L (5-15); ASPARTATE AMINO TRANSFERASE 17 U/L (15-37); BILIRUBIN,TOTAL 0.4 MG/DL (0.2-1.0); BLOOD UREA NITROGEN 12 mg/dL (7-18); CALCIUM 9.9 MG/DL (8.5-10.1); CARBON DIOXIDE 28 MMOL/L (21-32); CHLORIDE 101 MMOL/L (98-107); CREATININE 0.6 MG/DL (0.55-1.30); SODIUM 136 MMOL/L (136-145)
[2018-01-16 16:00] VITALS: BP 130/76
--- NOTE | 2018-01-16 17:13 | General Progress Note ---
Assessment/Plan Status: not improved Assessment/Plan 1) Pneumonia Acute hypoxemic respiratory failure #r/o Sepsis, pulmonary source -Continue IV antibiotics -continue O2 support Follow up cultures- UA, blood and lactic acid- negative to date follow vital signs closely- patient tachycardic- improving -leukocytosis improving as well on antibiotics -Duonebs BUSINESS RESILIENCY MANAGER evaluation to r/o aspiration appreciated- needs video swallow 2) DM -hold oral meds -ISS 3) HTN -continue meds 4) COPD -continue inhalers Duonebs PRN 5) Anxiety -continue anxiolytics -Psych consulted- recs appreciated 6) Anemia -trend; no signs of bleed -check iron studies -Hematology consulted- recs appreciated DVT Prophylaxis: scd's, heparin Code status: full Hospital Classification declaration: Based on this initial evaluation, and depending on the patient's clinical course, I anticipate that this patient will require hospitalization for 2-3 days. Disposition: Once the patient is stable to leave the hospital, I anticipate the patient will likely be discharged to the following environment:SNF I spent 45 minutes on this patient's case, and 23 minutes was dedicated to counseling and/or care coordination. Time of note may not reflect time of encounter. Subjective Date patient seen: Jan 16, 2018 Time patient seen: 11:40 ROS Limited/Unobtainable: No Constitutional: Reports: malaise, weakness HEENT: Reports: no symptoms Cardiovascular: Reports: no symptoms Respiratory: Reports: cough, sputum, wheezing Gastrointestinal/Abdominal: Reports: no symptoms, poor appetite, poor fluid intake Genitourinary: Reports: no symptoms Neurologic/Psychiatric: Reports: no symptoms Endocrine: Reports: no symptoms Hematologic/Lymphatic: Reports: no symptoms Allergies: Coded Allergies: TETRACYCLINE (Unverified Allergy, Unknown, 07/24/14) TETRACYCLINES (Unverified Allergy, Unknown, 01/13/18) All Systems: reviewed and negative except above Subjective Events of overnight noted Chart reviewed by me Objective Last 24 Hour Vital Signs Date Time Temp Pulse Resp B/P (MAP) Pulse Ox O2 Delivery O2 Flow Rate FiO2 01/16/18 16:00 97.6 98 18 130/76 (94) 95 97.6 01/16/18 14:39 Nasal Cannula 2.0 28 01/16/18 14:33 92 18 98 Nasal Cannula 2.0 28 01/16/18 12:00 97.7 93 20 146/78 (100) 93 97.7 01/16/18 09:08 78 20 99 Nasal Cannula 2.0 28 01/16/18 09:07 Nasal Cannula 2.0 28 01/16/18 09:07 77 18 97 Nasal Cannula 2.0 28 01/16/18 09:07 97 Nasal Cannula 2.0 28 01/16/18 09:00 Nasal Cannula 2.0 01/16/18 08:51 154/89 01/16/18 08:50 83 154/89 01/16/18 08:00 97.0 83 19 154/89 (110) 97 97.0 01/16/18 07:42 Nasal Cannula 2.0 28 01/16/18 07:41 Nasal Cannula 2.0 28 01/16/18 04:00 97.5 88 20 152/87 (108) 96 97.5 01/16/18 00:47 Nasal Cannula 2.0 28 01/16/18 00:47 Nasal Cannula 2.0 28 01/16/18 00:00 97.7 89 20 136/74 (94) 97 97.7 01/15/18 22:49 97.7 01/15/18 22:19 98.1 01/15/18 21:00 Nasal Cannula 2.0 01/15/18 20:00 98.1 96 20 128/83 (98) 93 98.1 01/15/18 19:08 Nasal Cannula 2.0 28 01/15/18 19:08 87 18 97 Nasal Cannula 2.0 28 01/15/18 19:04 99 Nasal Cannula 2.0 28 01/15/18 19:04 Nasal Cannula 2.0 28 Intake and Output 01/15/18 01/16/18 19:00 07:00 Intake Total 387.5 ml 230.0 ml Output Total 600 ml Balance -212.5 ml 230.0 ml Intake Oral 360 ml 120 ml IV Total 27.5 ml 110.0 ml Output Urine Total 600 ml # Voids 2 # Bowel Movements 1 Laboratory Tests 01/16/18 14:05: White Blood Count 5.8, Red Blood Count 3.64L, Hemoglobin 10.7L, Hematocrit 33.4L , Mean Corpuscular Volume 92, Mean Corpuscular Hemoglobin 29.3, Mean Corpuscular Hemoglobin Concent 31.9L, Red Cell Distribution Width 13.6, Platelet Count 298, Mean Platelet Volume 6.1L, Neutrophils (%) (Auto) , Lymphocytes (%) (Auto) , Monocytes (%) (Auto) , Eosinophils (%) (Auto) , Basophils (%) (Auto) , Neutrophils % (Manual) [Pending], Lymphocytes % (Manual) [Pending], Platelet Estimate [Pending], Platelet Morphology [Pending], Sodium Level 136, Potassium Level 4.0, Chloride Level 101, Carbon Dioxide Level 28, Anion Gap 7, Blood Urea Nitrogen 12, Creatinine 0.6, Estimat Glomerular Filtration Rate , Glucose Level 114H, Calcium Level 9.9, Total Bilirubin 0.4, Aspartate Amino Transf (AST/SGOT) 17, Alanine Aminotransferase (ALT/SGPT) 20, Alkaline Phosphatase 78, Total Protein 7.4, Albumin 3.2L, Globulin 4.2, Albumin/ Globulin Ratio 0.8L Height (Feet): 5 Height (Inches): 0.00 Weight (Pounds): 127 General Appearance: alert, thin EENT: PERRL/EOMI, normal ENT inspection, TMs normal, pale conjunctivae Neck: non-tender, supple Cardiovascular: normal peripheral pulses, normal rate, regular rhythm Respiratory/Chest: chest wall non-tender, normal breath sounds, rhonchi - bilaterally Abdomen: normal bowel sounds, non tender, soft, no mass Pelvis: normal external exam Extremities: normal range of motion, non-tender Edema: no edema noted Arm (L), no edema noted Arm (R), no edema noted Leg (L), no edema noted Leg (R) Edema: trace edema Neurologic: 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
[2018-01-16] MEDS ORDERED: NS 275ml ONE (18:37)
[2018-01-16 20:00] VITALS: BP 153/95
[2018-01-17] VITALS: BP 122/65
[2018-01-17] MEDS: Dicyclomine 10mg Cap ORAL PRN ×4 (00:33→23:01)
[2018-01-17] MEDS: Albuterol/Ipratropium 3ml neb HHN SCH ×4 (01:00→19:00)
[2018-01-17] MEDS: Metoclopramide 10mg/2ml Inj IVP PRN ×2 (01:08→14:47)
[2018-01-17] MEDS: LORazepam 0.5mg tab ORAL PRN ×3 (01:39→23:14)
[2018-01-17 04:00] VITALS: BP 139/87
[2018-01-17] MEDS: Piperacillin/Tazobactam 3.375 GM in D5W 110 ML IVPB SCH ×3 (06:27→21:17)
[2018-01-17 08:00] VITALS: BP 152/75
[2018-01-17] MEDS: Heparin 5000 units/ml inj SUBQ SCH ×2 (09:00→21:00)
[2018-01-17] MEDS: Lyrica 75mg cap ORAL SCH ×2 (09:00→17:05)
[2018-01-17] MEDS: Multivitamin w/Minerals tab ORAL SCH (09:00)
[2018-01-17] MEDS: Docusate 100mg cap ORAL SCH ×2 (09:00→21:00)
[2018-01-17] MEDS: Allopurinol 100mg Tab ORAL SCH ×2 (09:00→17:05)
[2018-01-17] MEDS: Aspirin EC 81mg tab ORAL SCH (09:00)
[2018-01-17] MEDS: guaiFENesin 100mg/5ml Liq ud ORAL PRN (09:17)
[2018-01-17] MEDS: Montelukast 10mg tablet ORAL SCH (09:17)
[2018-01-17] MEDS: Lisinopril 20mg tab ORAL SCH (09:18)
[2018-01-17] MEDS: Azithromycin 250mg tab ORAL SCH (09:18)
[2018-01-17 12:00] VITALS: BP 140/74
[2018-01-17 13:09] LABS: ANION GAP 8 mmol/L (5-15); BLOOD UREA NITROGEN 9 mg/dL (7-18); CALCIUM 9.9 MG/DL (8.5-10.1); CARBON DIOXIDE 27 MMOL/L (21-32); CHLORIDE 100 MMOL/L (98-107); CREATININE 0.6 MG/DL (0.55-1.30); POTASSIUM 3.6 MMOL/L (3.5-5.1); SODIUM 135 MMOL/L (136-145)
[2018-01-17] MEDS: Norco 5mg/325mg tab ORAL PRN (14:48)
[2018-01-17 15:09] LABS: BILIRUBIN,TOTAL 0.5 MG/DL (0.2-1.0)
[2018-01-17 16:00] VITALS: BP 132/72
--- NOTE | 2018-01-17 18:29 | General Progress Note ---
Assessment/Plan Status: not improved Assessment/Plan 1) Pneumonia Acute hypoxemic respiratory failure r/o Sepsis, pulmonary source -Continue IV antibiotics -continue O2 support Follow up cultures- UA, blood and lactic acid- negative do date follow vital signs closely- patient tachycardic- improving -leukocytosis improving as well on antibiotics CNA PER DIEM evaluation to r/o aspiration appreciated- video swallow for tomorrow 2) DM -hold oral meds -ISS 3) HTN -continue meds 4) COPD -continue inhalers Duonebs PRN 5) Anxiety -continue anxiolytics -Psych consulted- recs appreciated 6) Anemia -trend; no signs of bleed -check iron studies -Hematology consult- f/u recs 7) Diarrhea/nausea/decreased PO intake -Check stool studies -check lipase, LFT's DVT Prophylaxis: scd's, heparin Code status: full Hospital Classification declaration: Based on this initial evaluation, and depending on the patient's clinical course, I anticipate that this patient will require hospitalization for 2-3 days. Disposition: Once the patient is stable to leave the hospital, I anticipate the patient will likely be discharged to the following environment:SNF I spent 45 minutes on this patient's case, and 23 minutes was dedicated to counseling and/or care coordination. Time of note may not reflect time of encounter. Subjective Date patient seen: Jan 17, 2018 Time patient seen: 11:22 ROS Limited/Unobtainable: No Constitutional: Reports: malaise, weakness HEENT: Reports: no symptoms Cardiovascular: Reports: no symptoms Respiratory: Reports: cough, sputum Gastrointestinal/Abdominal: Reports: diarrhea, nausea, poor appetite, poor fluid intake Genitourinary: Reports: no symptoms Neurologic/Psychiatric: Reports: no symptoms Endocrine: Reports: no symptoms Hematologic/Lymphatic: Reports: no symptoms Allergies: Coded Allergies: TETRACYCLINE (Unverified Allergy, Unknown, 07/24/14) TETRACYCLINES (Unverified Allergy, Unknown, 01/13/18) All Systems: reviewed and negative except above Subjective Events of overnight noted Chart reviewed by me Patient with diarrhea this AM Also nausea and decreased PO intake as a result Feels "weak" Refusing meds intermittently Objective Last 24 Hour Vital Signs Date Time Temp Pulse Resp B/P (MAP) Pulse Ox O2 Delivery O2 Flow Rate FiO2 01/17/18 16:00 97.3 100 18 132/72 (92) 94 97.3 01/17/18 12:31 Nasal Cannula 2.0 28 01/17/18 12:27 76 18 96 Nasal Cannula 2.0 28 01/17/18 12:26 92 20 95 Nasal Cannula 2.0 01/17/18 12:26 98 18 96 Nasal Cannula 2.0 01/17/18 12:00 98.2 103 18 140/74 (96) 92 98.2 01/17/18 09:18 152/75 01/17/18 09:18 79 152/75 01/17/18 09:00 Nasal Cannula 2.0 01/17/18 08:02 Nasal Cannula 2.0 28 01/17/18 08:02 Nasal Cannula 2.0 28 01/17/18 08:02 95 Nasal Cannula 2.0 01/17/18 08:01 Nasal Cannula 2.0 01/17/18 08:00 97.6 79 18 152/75 (100) 92 97.6 01/17/18 04:00 97.5 97 20 139/87 (104) 95 97.5 01/17/18 01:10 Nasal Cannula 2.0 01/17/18 01:10 Nasal Cannula 2.0 01/17/18 00:00 97.9 99 20 122/65 (84) 93 97.9 01/16/18 21:00 Nasal Cannula 2.0 01/16/18 20:22 88 18 99 Nasal Cannula 2.0 01/16/18 20:12 96 Nasal Cannula 2.0 01/16/18 20:12 Nasal Cannula 2.0 01/16/18 20:12 113 18 96 Nasal Cannula 2.0 01/16/18 20:00 97.9 103 20 153/95 (114) 92 97.9 Intake and Output 01/16/18 01/17/18 19:00 07:00 Intake Total 120 ml 445.5 ml Output Total 600 ml Balance -480 ml 445.5 ml Intake Oral 120 ml 120 ml IV Total 325.5 ml Output Urine Total 600 ml # Voids 3 # Bowel Movements 1 Laboratory Tests 01/17/18 11:49: Sodium Level 135L, Potassium Level 3.6, Chloride Level 100, Carbon Dioxide Level 27, Anion Gap 8, Blood Urea Nitrogen 9, Creatinine 0.6, Estimat Glomerular Filtration Rate , Glucose Level 109H, Calcium Level 9.9, Magnesium Level 2.1, Total Bilirubin 0.5, Aspartate Amino Transf (AST/SGOT) 29, Alanine Aminotransferase (ALT/SGPT) 24, Alkaline Phosphatase 77, Amylase Level 63, Lipase 337 Height (Feet): 5 Height (Inches): 0.00 Weight (Pounds): 127 General Appearance: no apparent distress, alert, thin EENT: PERRL/EOMI, TMs normal, pharynx normal, pale conjunctivae Neck: non-tender, supple Cardiovascular: normal peripheral pulses, normal rate, regular rhythm Respiratory/Chest: decreased breath sounds, rhonchi - bilaterally Abdomen: normal bowel sounds, non tender, soft Pelvis: normal external exam Extremities: normal range of motion, non-tender Edema: no edema noted Arm (L), no edema noted Arm (R), no edema noted Leg (L), no edema noted Leg (R) Edema: trace edema Neurologic: alert Skin: normal pigmentation, warm/dry Lymphatic: normal anterior cervical (L), normal posterior cervical (L) Torito Edward MD Jan 17, 2018 18:25
[2018-01-17 20:00] VITALS: BP 140/77
[2018-01-18] MEDS: Albuterol/Ipratropium 3ml neb HHN SCH ×4 (00:28→19:00)
[2018-01-18 01:00] VITALS: BP 152/81
[2018-01-18] MEDS: Metoclopramide 10mg/2ml Inj IVP PRN (02:39)
[2018-01-18] MEDS: Piperacillin/Tazobactam 3.375 GM in D5W 110 ML IVPB SCH ×3 (05:47→22:01)
[2018-01-18 08:00] VITALS: BP 145/82
[2018-01-18] MEDS: Docusate 100mg cap ORAL SCH ×2 (08:28→21:00)
[2018-01-18] MEDS: Aspirin EC 81mg tab ORAL SCH (08:28)
[2018-01-18] MEDS: Lyrica 75mg cap ORAL SCH ×2 (08:30→17:59)
[2018-01-18] MEDS: Multivitamin w/Minerals tab ORAL SCH (08:31)
[2018-01-18] MEDS: Allopurinol 100mg Tab ORAL SCH ×2 (08:31→17:59)
[2018-01-18] MEDS: Heparin 5000 units/ml inj SUBQ SCH ×2 (08:33→21:00)
[2018-01-18] MEDS: Azithromycin 250mg tab ORAL SCH (09:15)
[2018-01-18] MEDS: Montelukast 10mg tablet ORAL SCH (09:15)
[2018-01-18] MEDS: Lisinopril 20mg tab ORAL SCH (09:15)
--- NOTE | 2018-01-18 10:57 | General Progress Note ---
Assessment/Plan Assessment/Plan # Anemia of chronic disease. --> Anemia w/u has been reviewed. Will trend CBC as needed. --> Continue to closely monitor for stability. --> Hgb goal above 7 # Elevated tumor markers, CEA is 5.6 --> very minimally elevated, recommend general cancer screening q10 years colo or q1y fobts are per patients PCP # Pneumonia, Acute hypoxemic respiratory failure. r/o Sepsis, pulmonary source --> Continue IV antibiotics --> continue O2 support --> have ordered cxr to followup on pna/cardiomegaly # DM. A1C goal less than 7 --> have ordered this # HTN. Continue current meds # COPD --> continue inhalers --> Duonebs PRN Subjective Constitutional: Denies: no symptoms, chills, diaphoresis, fever, malaise, weakness, other HEENT: Denies: no symptoms, eye pain, blurred vision, tearing, double vision, ear pain, ear discharge, nose pain, nose congestion, throat pain, throat swelling, mouth pain, mouth swelling, other Cardiovascular: Denies: no symptoms, chest pain, edema, irregular heart rate, lightheadedness, palpitations, syncope, other Respiratory: Denies: no symptoms, cough, orthopnea, shortness of breath, SOB with excertion, SOB at rest, sputum, stridor, wheezing, other Gastrointestinal/Abdominal: Denies: no symptoms, abdomen distended, abdominal pain, black stools, tarry stools, blood in stool, constipated, diarrhea, difficulty swallowing, nausea, poor appetite, poor fluid intake, rectal bleeding , vomiting, other Genitourinary: Denies: no symptoms, burning, discharge, frequency, flank pain, hematuria, incontinence, pain, urgency, other Neurologic/Psychiatric: Denies: no symptoms, anxiety, depressed, emotional problems, headache, numbness, paresthesia, pre-existing deficit, seizure, tingling, tremors, weakness, other Endocrine: Denies: no symptoms, excessive sweating, flushing, intolerance to cold, intolerance to heat, increased hunger, increased thirst, increased urine, unexplained weight gain, unexplained weight loss, other Hematologic/Lymphatic: Denies: no symptoms, anemia, easy bleeding, easy bruising, other Allergies: Coded Allergies: TETRACYCLINE (Unverified Allergy, Unknown, 07/24/14) TETRACYCLINES (Unverified Allergy, Unknown, 01/13/18) Subjective Pt awake and alert. feeling better, does not want her cough meds Objective Last 24 Hour Vital Signs Date Time Temp Pulse Resp B/P (MAP) Pulse Ox O2 Delivery O2 Flow Rate FiO2 01/18/18 09:15 145/82 01/18/18 09:15 106 145/82 01/18/18 09:00 Nasal Cannula 2.0 01/18/18 08:00 98.2 106 19 145/82 (103) 99 98.2 01/18/18 07:40 Room Air 01/18/18 07:40 Room Air 01/18/18 07:40 Room Air 01/18/18 07:40 Room Air 01/18/18 01:00 96.3 110 20 152/81 (104) 93 96.3 01/18/18 00:28 Room Air 21 01/18/18 00:28 Room Air 01/17/18 21:00 89 20 97 Nasal Cannula 2.0 28 01/17/18 21:00 Nasal Cannula 2.0 01/17/18 20:45 88 18 94 Nasal Cannula 2.0 28 01/17/18 20:00 97.5 101 20 140/77 (98) 94 97.5 01/17/18 19:34 Room Air 01/17/18 19:34 Room Air 01/17/18 19:22 Room Air 01/17/18 19:22 94 Room Air 01/17/18 16:00 97.3 100 18 132/72 (92) 94 97.3 01/17/18 12:31 Nasal Cannula 2.0 28 01/17/18 12:27 76 18 96 Nasal Cannula 2.0 28 01/17/18 12:26 92 20 95 Nasal Cannula 2.0 28 01/17/18 12:26 98 18 96 Nasal Cannula 2.0 28 01/17/18 12:00 98.2 103 18 140/74 (96) 92 98.2 Intake and Output 01/17/18 01/18/18 19:00 07:00 Intake Total 510.0 ml 137.5 ml Output Total 50 ml Balance 510.0 ml 87.5 ml Intake Oral 400 ml IV Total 110.0 ml 137.5 ml Emesis 50 ml # Voids 3 # Bowel Movements 7 Laboratory Tests 01/17/18 11:49: Sodium Level 135L, Potassium Level 3.6, Chloride Level 100, Carbon Dioxide Level 27, Anion Gap 8, Blood Urea Nitrogen 9, Creatinine 0.6, Estimat Glomerular Filtration Rate , Glucose Level 109H, Calcium Level 9.9, Magnesium Level 2.1, Total Bilirubin 0.5, Aspartate Amino Transf (AST/SGOT) 29, Alanine Aminotransferase (ALT/SGPT) 24, Alkaline Phosphatase 77, Amylase Level 63, Lipase 337 Height (Feet): 5 Height (Inches): 0.00 Weight (Pounds): 127 General Appearance: alert EENT: normal ENT inspection Neck: normal alignment Cardiovascular: regular rhythm Respiratory/Chest: lungs clear Abdomen: non tender Extremities: non-tender Edema: 1+ Leg (L), 1+ Leg (R) Edema: mild edema 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
--- NOTE | 2018-01-18 11:27 | General Progress Note ---
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 r/o aspiration appreciated- video swallow postponed for now 2) Diarrhea -Persistent -now with leukocytosis -check stool studies including c.diff 3) DM -hold oral meds -ISS 4) HTN -continue meds 5) COPD -continue inhalers Duonebs PRN 6) Anxiety -continue anxiolytics -Psych consulted- recs appreciated 7) Anemia -trend; no signs of bleed -check iron studies -Hematology consulted- recs appreciated 8) Diarrhea/nausea/decreased PO intake -Check stool studies as above -check lipase, LFT's- normal DVT Prophylaxis: scd's, heparin Code status: full Hospital Classification declaration: Based on this initial evaluation, and depending on the patient's clinical course, I anticipate that this patient will require hospitalization for 2-3 days. Disposition: Once the patient is stable to leave the hospital, I anticipate the patient will likely be discharged to the following environment:SNF I spent 45 minutes on this patient's case, and 23 minutes was dedicated to counseling and/or care coordination. Time of note may not reflect time of encounter. Subjective Date patient seen: Jan 18, 2018 Time patient seen: 11:11 ROS Limited/Unobtainable: No Constitutional: Reports: malaise, weakness HEENT: Reports: no symptoms Cardiovascular: Reports: no symptoms Respiratory: Reports: cough, sputum Gastrointestinal/Abdominal: Reports: diarrhea, nausea, poor appetite, poor fluid intake, vomiting Genitourinary: Reports: no symptoms Neurologic/Psychiatric: Reports: no symptoms Endocrine: Reports: no symptoms Hematologic/Lymphatic: Reports: no symptoms Allergies: Coded Allergies: TETRACYCLINE (Unverified Allergy, Unknown, 07/24/14) TETRACYCLINES (Unverified Allergy, Unknown, 01/13/18) All Systems: reviewed and negative except above Subjective Events of overnight noted Chart reviewed by me Patient with continued diarrhea this AM Also nausea/vomiting x 1 and decreased PO intake as a result Refusing meds intermittently Objective Last 24 Hour Vital Signs Date Time Temp Pulse Resp B/P (MAP) Pulse Ox O2 Delivery O2 Flow Rate FiO2 01/18/18 09:15 145/82 01/18/18 09:15 106 145/82 01/18/18 09:00 Nasal Cannula 2.0 01/18/18 08:00 98.2 106 19 145/82 (103) 99 98.2 01/18/18 07:40 Room Air 01/18/18 07:40 Room Air 01/18/18 07:40 Room Air 01/18/18 07:40 Room Air 01/18/18 01:00 96.3 110 20 152/81 (104) 93 96.3 01/18/18 00:28 Room Air 01/18/18 00:28 Room Air 01/17/18 21:00 89 20 97 Nasal Cannula 2.0 01/17/18 21:00 Nasal Cannula 2.0 01/17/18 20:45 88 18 94 Nasal Cannula 2.0 01/17/18 20:00 97.5 101 20 140/77 (98) 94 97.5 01/17/18 19:34 Room Air 01/17/18 19:34 Room Air 01/17/18 19:22 Room Air 01/17/18 19:22 94 Room Air 01/17/18 16:00 97.3 100 18 132/72 (92) 94 97.3 01/17/18 12:31 Nasal Cannula 2.0 01/17/18 12:27 76 18 96 Nasal Cannula 2.0 01/17/18 12:26 92 20 95 Nasal Cannula 2.0 01/17/18 12:26 98 18 96 Nasal Cannula 2.0 01/17/18 12:00 98.2 103 18 140/74 (96) 92 98.2 Intake and Output 01/17/18 01/18/18 19:00 07:00 Intake Total 510.0 ml 137.5 ml Output Total 50 ml Balance 510.0 ml 87.5 ml Intake Oral 400 ml IV Total 110.0 ml 137.5 ml Emesis 50 ml # Voids 3 # Bowel Movements 7 Laboratory Tests 01/17/18 11:49: Sodium Level 135L, Potassium Level 3.6, Chloride Level 100, Carbon Dioxide Level 27, Anion Gap 8, Blood Urea Nitrogen 9, Creatinine 0.6, Estimat Glomerular Filtration Rate , Glucose Level 109H, Calcium Level 9.9, Magnesium Level 2.1, Total Bilirubin 0.5, Aspartate Amino Transf (AST/SGOT) 29, Alanine Aminotransferase (ALT/SGPT) 24, Alkaline Phosphatase 77, Amylase Level 63, Lipase 337 Height (Feet): 5 Height (Inches): 0.00 Weight (Pounds): 127 General Appearance: mild distress, thin EENT: PERRL/EOMI, normal ENT inspection, TMs normal, pale conjunctivae Neck: non-tender, supple Cardiovascular: normal peripheral pulses, regular rhythm Respiratory/Chest: decreased breath sounds Pelvis: normal external exam Genitourinary/Rectal: normal genital exam Extremities: normal range of motion Edema: no edema noted Arm (L), no edema noted Arm (R) Edema: trace edema 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
[2018-01-18 12:00] VITALS: BP 160/87
[2018-01-18 12:26] LABS: BASOPHILS % (AUTO) 0.4 % (0.0-2.0); EOSINOPHILS % (AUTO) 0.8 % (0.0-3.0); HEMOGLOBIN 11.4 G/DL (12.0-16.0); LYMPHOCYTES % (AUTO) 14.1 % (20.0-45.0); MEAN CORPUSCULAR VOLUME 92 FL (80-99); MONOCYTES % (AUTO) 3.9 % (1.0-10.0); NEUTROPHILS % (AUTO) 80.8 % (45.0-75.0); PLATELET COUNT 311 K/UL (150-450); RED BLOOD COUNT 3.82 M/UL (4.20-5.40); WHITE BLOOD COUNT 15.1 K/UL (4.8-10.8)
[2018-01-18] MEDS: LORazepam 0.5mg tab ORAL PRN (12:33)
[2018-01-18 12:53] LABS: ALANINE AMINOTRANSFERASE 29 U/L (12-78); ALBUMIN 3.6 G/DL (3.4-5.0); ALBUMIN/GLOBULIN RATIO 0.9 (1.0-2.7); ALKALINE PHOSPHATASE 79 U/L (46-116); ANION GAP 12 mmol/L (5-15); ASPARTATE AMINO TRANSFERASE 26 U/L (15-37); BILIRUBIN,TOTAL 0.6 MG/DL (0.2-1.0); BLOOD UREA NITROGEN 14 mg/dL (7-18); CALCIUM 9.8 MG/DL (8.5-10.1); CARBON DIOXIDE 26 MMOL/L (21-32); CHLORIDE 96 MMOL/L (98-107); CREATININE 0.6 MG/DL (0.55-1.30); POTASSIUM 3.1 MMOL/L (3.5-5.1); SODIUM 134 MMOL/L (136-145)
[2018-01-18 13:36] LABS: APPEARANCE,URINE CLEAR; BILIRUBIN, URINE NEGATIVE (NEGATIVE); COLOR,URINE PALE YELLOW; GLUCOSE, URINE (UA) NEGATIVE (NEGATIVE); KETONES,URINE 2+ (NEGATIVE); LEUKOCYTE ESTERASE ,URINE 3+ (NEGATIVE); NITRITE,URINE NEGATIVE (NEGATIVE); PH,URINE 6 (4.5-8.0); PROTEIN,URINE NEGATIVE (NEGATIVE); UROBILINOGEN,URINE NORMAL MG/DL (0.0-1.0)
--- NOTE | 2018-01-18 13:49 | Diagnostic Imaging Report ---
. Indication: Shortness of breath Technique: One view of the chest Comparison: 01/13/2018 Findings: Improved inspiration currently. There is some blunting of the left costophrenic sulcus, likely indicating a small amount of pleural fluid. Previously demonstrated congestive changes are no longer evident. The heart is borderline enlarged. Surgical clips are seen in the right side of the mediastinum and in the right axilla. Impression: New or persistent small left pleural effusion Improved interstitial congestion, over 5 days
[2018-01-18 16:00] VITALS: BP 123/70
--- NOTE | 2018-01-18 19:17 | General Progress Note ---
Assessment/Plan Status: stable Assessment/Plan MDD Anxiety d/o -ativan 2mg po qid/prn -klonopin 1mg qhs -lexapro 10mg qam Subjective Date patient seen: Jan 18, 2018 Neurologic/Psychiatric: Reports: anxiety, depressed, emotional problems Allergies: Coded Allergies: TETRACYCLINE (Unverified Allergy, Unknown, 07/24/14) TETRACYCLINES (Unverified Allergy, Unknown, 01/13/18) Subjective the pt has severe anxiety Objective Last 24 Hour Vital Signs Date Time Temp Pulse Resp B/P (MAP) Pulse Ox O2 Delivery O2 Flow Rate FiO2 01/18/18 16:00 99.5 107 18 123/70 (87) 97 99.5 01/18/18 12:41 Room Air 01/18/18 12:41 Room Air 21 01/18/18 12:00 97.7 116 21 160/87 (111) 95 97.7 01/18/18 09:15 145/82 01/18/18 09:15 106 145/82 01/18/18 09:00 Nasal Cannula 2.0 01/18/18 09:00 Nasal Cannula 01/18/18 09:00 Nasal Cannula 01/18/18 08:00 98.2 106 19 145/82 (103) 99 98.2 01/18/18 07:40 Room Air 21 01/18/18 07:40 Room Air 21 01/18/18 07:40 Room Air 21 01/18/18 07:40 Room Air 21 01/18/18 01:00 96.3 110 20 152/81 (104) 93 96.3 01/18/18 00:28 Room Air 01/18/18 00:28 Room Air 01/17/18 21:00 89 20 97 Nasal Cannula 2.0 01/17/18 21:00 Nasal Cannula 2.0 01/17/18 20:45 88 18 94 Nasal Cannula 2.0 01/17/18 20:00 97.5 101 20 140/77 (98) 94 97.5 01/17/18 19:34 Room Air 21 01/17/18 19:34 Room Air 21 01/17/18 19:22 Room Air 21 01/17/18 19:22 94 Room Air 21 Intake and Output 01/17/18 01/18/18 19:00 07:00 Intake Total 510.0 ml 137.5 ml Output Total 50 ml Balance 510.0 ml 87.5 ml Intake Oral 400 ml IV Total 110.0 ml 137.5 ml Emesis 50 ml # Voids 3 # Bowel Movements 7 Laboratory Tests 01/18/18 11:30: White Blood Count 15.1H, Red Blood Count 3.82L, Hemoglobin 11.4L, Hematocrit 35.0L, Mean Corpuscular Volume 92, Mean Corpuscular Hemoglobin 29.9, Mean Corpuscular Hemoglobin Concent 32.7, Red Cell Distribution Width 13.0, Platelet Count 311, Mean Platelet Volume 5.9L, Neutrophils (%) (Auto) 80.8H, Lymphocytes (%) (Auto) 14.1L, Monocytes (%) (Auto) 3.9, Eosinophils (%) (Auto) 0.8, Basophils (%) (Auto) 0.4, Sodium Level 134L, Potassium Level 3.1L, Chloride Level 96L, Carbon Dioxide Level 26, Anion Gap 12, Blood Urea Nitrogen 14, Creatinine 0.6, Estimat Glomerular Filtration Rate , Glucose Level 92, Hemoglobin A1c 5.2, Calcium Level 9.8, Magnesium Level 2.0, Total Bilirubin 0.6 , Aspartate Amino Transf (AST/SGOT) 26, Alanine Aminotransferase (ALT/SGPT) 29, Alkaline Phosphatase 79, Total Protein 7.8, Albumin 3.6, Globulin 4.2, Albumin/ Globulin Ratio 0.9L 01/18/18 13:12: Urine Color Pale yellow, Urine Appearance Clear, Urine pH 6, Urine Specific [place] 1.015, Urine Protein Negative, Urine Glucose (UA) Negative, Urine Ketones 2+H, Urine Blood 3+H, Urine Nitrite Negative, Urine Bilirubin Negative, Urine Urobilinogen Normal, Urine Leukocyte Esterase 3+H, Urine RBC 2-4H, Urine WBC 2-4, Urine Squamous Epithelial Cells Occasional, Urine Bacteria Occasional, Urine Yeast FewH Height (Feet): 5 Height (Inches): 0.00 Weight (Pounds): 127 General Appearance: no apparent distress, alert Neurologic: oriented x 3, responsive, depressed affect Wan Stern MD Jan 18, 2018 19:17
[2018-01-18] MEDS: LORazepam 1mg tab ORAL PRN (19:41)
[2018-01-18 20:00] VITALS: BP 138/72
[2018-01-19] VITALS: BP 101/78
[2018-01-19 04:00] VITALS: BP 125/63
[2018-01-19] MEDS: Piperacillin/Tazobactam 3.375 GM in D5W 110 ML IVPB SCH (05:05)
[2018-01-19 08:00] VITALS: BP 120/51
[2018-01-19] MEDS: Aspirin EC 81mg tab ORAL SCH (09:00)
[2018-01-19] MEDS: Allopurinol 100mg Tab ORAL SCH ×2 (09:00→17:41)
[2018-01-19] MEDS: Multivitamin w/Minerals tab ORAL SCH (09:00)
[2018-01-19] MEDS: Lyrica 75mg cap ORAL SCH ×2 (09:00→17:41)
[2018-01-19] MEDS: Docusate 100mg cap ORAL SCH ×2 (09:00→20:27)
[2018-01-19] MEDS: Heparin 5000 units/ml inj SUBQ SCH ×2 (09:00→20:28)
[2018-01-19] MEDS: Montelukast 10mg tablet ORAL SCH (09:22)
[2018-01-19] MEDS: LORazepam 1mg tab ORAL PRN (09:22)
[2018-01-19] MEDS: Lisinopril 20mg tab ORAL SCH (09:23)
[2018-01-19 12:00] VITALS: BP 100/60
--- NOTE | 2018-01-19 13:49 | General Progress Note ---
Assessment/Plan Status: unchanged Assessment/Plan Acute hypoxic respiratory failure, possible due to aspiration pneumonia versus fluid overload. Still with borderline hypoxemia despite 5 days of IV Zosyn. Will stop Zosyn and monitor off antibiotics which are likely exacerbating her GI upset and poor oral intake. She is unable to participate with [facility]/video fluroscopy due to nausea. Spoke with Dr. Lerma who will also evaluate the patient. history of COPD, continue Duoneb. She may require chronic supplemental oxygen upon discharge. N/V, Diarrhea, persistent, continue symptomatic care and will see she how she does off antibiotics. Leukocytosis, unclear etiology, check labs in AM. Poor oral intake, malnutrition, will start Megace DM type 2, oral diabetic meds on hold, continue ISS HTN, controlled, continue Norvasc and lisinopril Subjective Date patient seen: Jan 19, 2018 Time patient seen: 13:39 ROS Limited/Unobtainable: Yes Constitutional: Denies: chills HEENT: Denies: nose congestion Cardiovascular: Denies: chest pain Respiratory: Reports: shortness of breath; Denies: cough Gastrointestinal/Abdominal: Reports: nausea, vomiting Genitourinary: Reports: no symptoms Neurologic/Psychiatric: Reports: no symptoms Endocrine: Reports: no symptoms Hematologic/Lymphatic: Reports: no symptoms Allergies: Coded Allergies: TETRACYCLINE (Unverified Allergy, Unknown, 07/24/14) TETRACYCLINES (Unverified Allergy, Unknown, 01/13/18) Subjective Medical followup for acute hypoxic respiratory failure, possible aspiration pneumonia versus fluid overload. Also with some residual nausea, vomiting and diarrhea, although stool C. difficile was negative. Very limited oral intake. Objective Last 24 Hour Vital Signs Date Time Temp Pulse Resp B/P (MAP) Pulse Ox O2 Delivery O2 Flow Rate FiO2 01/19/18 12:00 98.0 110 18 100/60 (73) 93 98.0 01/19/18 09:23 120/56 01/19/18 09:23 105 120/51 01/19/18 09:10 Room Air 21 01/19/18 09:10 94 Room Air 21 01/19/18 09:10 Room Air 01/19/18 09:10 Room Air 01/19/18 08:30 Nasal Cannula 2.0 01/19/18 08:00 98.1 105 18 120/51 (74) 93 98.1 01/19/18 04:00 97.9 112 19 125/63 (83) 93 97.9 01/19/18 00:00 98.3 84 19 101/78 (86) 93 98.3 01/18/18 21:00 Nasal Cannula 2.0 01/18/18 20:53 77 18 Nasal Cannula 2.0 28 01/18/18 20:00 99.5 107 18 138/72 (94) 100 99.5 01/18/18 19:20 Room Air 21 01/18/18 19:20 95 Room Air 21 01/18/18 19:20 Room Air 21 01/18/18 19:20 Room Air 21 01/18/18 16:00 99.5 107 18 123/70 (87) 97 99.5 Intake and Output 01/18/18 01/19/18 19:00 07:00 Intake Total 300 ml 110.0 ml Balance 300 ml 110.0 ml Intake Oral 300 ml IV Total 110.0 ml # Voids 2 # Bowel Movements 11 Height (Feet): 5 Height (Inches): 0.00 Weight (Pounds): 127 General Appearance: no apparent distress, other EENT: pale conjunctivae Neck: non-tender Cardiovascular: normal rate, regular rhythm Respiratory/Chest: chest wall non-tender, lungs clear Abdomen: normal bowel sounds, non tender Neurologic: alert, responsive Anjum Macedo MD Jan 19, 2018 13:49
[2018-01-19] MEDS: Dicyclomine 10mg Cap ORAL PRN (14:22)
[2018-01-19] MEDS ORDERED: NS 500ML ONE (15:12)
--- NOTE | 2018-01-19 15:19 | General Progress Note ---
Assessment/Plan Assessment/Plan # Anemia of chronic disease. Anemia w/u has been reviewed. Will trend CBC as needed. --> Continue to closely monitor for stability. --> Hgb goal above 7 --> occult is negative # Elevated tumor markers, CEA is 5.6 --> very minimally elevated, recommend general cancer screening q10 years colo or q1y fobts are per patients PCP # Pneumonia, Acute hypoxemic respiratory failure. r/o Sepsis, pulmonary source --> Continue IV antibiotics --> continue O2 support --> Cxr New or persistent small left pleural effusion, improved interstitial congestion, over 5 days # DM. A1C goal less than 7 --> have ordered this # HTN. Continue current meds # COPD --> continue inhalers --> Duonebs PRN Subjective Constitutional: Denies: no symptoms, chills, diaphoresis, fever, malaise, weakness, other HEENT: Denies: no symptoms, eye pain, blurred vision, tearing, double vision, ear pain, ear discharge, nose pain, nose congestion, throat pain, throat swelling, mouth pain, mouth swelling, other Cardiovascular: Denies: no symptoms, chest pain, edema, irregular heart rate, lightheadedness, palpitations, syncope, other Respiratory: Denies: no symptoms, cough, orthopnea, shortness of breath, SOB with excertion, SOB at rest, sputum, stridor, wheezing, other Gastrointestinal/Abdominal: Denies: no symptoms, abdomen distended, abdominal pain, black stools, tarry stools, blood in stool, constipated, diarrhea, difficulty swallowing, nausea, poor appetite, poor fluid intake, rectal bleeding , vomiting, other Genitourinary: Denies: no symptoms, burning, discharge, frequency, flank pain, hematuria, incontinence, pain, urgency, other Neurologic/Psychiatric: Denies: no symptoms, anxiety, depressed, emotional problems, headache, numbness, paresthesia, pre-existing deficit, seizure, tingling, tremors, weakness, other Endocrine: Denies: no symptoms, excessive sweating, flushing, intolerance to cold, intolerance to heat, increased hunger, increased thirst, increased urine, unexplained weight gain, unexplained weight loss, other Hematologic/Lymphatic: Denies: no symptoms, anemia, easy bleeding, easy bruising, other Allergies: Coded Allergies: TETRACYCLINE (Unverified Allergy, Unknown, 07/24/14) TETRACYCLINES (Unverified Allergy, Unknown, 01/13/18) Subjective Pt awake and alert. feeling better, does not want her cough meds Objective Last 24 Hour Vital Signs Date Time Temp Pulse Resp B/P (MAP) Pulse Ox O2 Delivery O2 Flow Rate FiO2 01/19/18 12:00 98.0 110 18 100/60 (73) 93 98.0 01/19/18 09:23 120/56 01/19/18 09:23 105 120/51 01/19/18 09:10 Room Air 21 01/19/18 09:10 94 Room Air 21 01/19/18 09:10 Room Air 01/19/18 09:10 Room Air 01/19/18 08:30 Nasal Cannula 2.0 01/19/18 08:00 98.1 105 18 120/51 (74) 93 98.1 01/19/18 04:00 97.9 112 19 125/63 (83) 93 97.9 01/19/18 00:00 98.3 84 19 101/78 (86) 93 98.3 01/18/18 21:00 Nasal Cannula 2.0 01/18/18 20:53 77 18 Nasal Cannula 2.0 28 01/18/18 20:00 99.5 107 18 138/72 (94) 100 99.5 01/18/18 19:20 Room Air 21 01/18/18 19:20 95 Room Air 21 01/18/18 19:20 Room Air 21 01/18/18 19:20 Room Air 21 01/18/18 16:00 99.5 107 18 123/70 (87) 97 99.5 Intake and Output 01/18/18 01/19/18 19:00 07:00 Intake Total 300 ml 110.0 ml Balance 300 ml 110.0 ml Intake Oral 300 ml IV Total 110.0 ml # Voids 2 # Bowel Movements 11 Height (Feet): 5 Height (Inches): 0.00 Weight (Pounds): 127 General Appearance: no apparent distress EENT: normal ENT inspection Neck: supple Cardiovascular: normal rate Respiratory/Chest: lungs clear Abdomen: no mass Extremities: non-tender Edema: 1+ Leg (L), 1+ Leg (R) Edema: mild edema Neurologic: alert Skin: normal pigmentation Abram Kearns MD Jan 19, 2018 15:19
[2018-01-19] MEDS: Norco 5mg/325mg tab ORAL PRN (15:53)
[2018-01-19 16:00] VITALS: BP 108/52
[2018-01-19] MEDS: Megace 400mg/10ml Susp ORAL SCH (17:39)
--- NOTE | 2018-01-19 19:34 | General Progress Note ---
Assessment/Plan Assessment/Plan MDD Anxiety d/o -ativan 2mg po qid/prn -klonopin 1mg qhs -lexapro 10mg qam Subjective Date patient seen: Jan 19, 2018 Neurologic/Psychiatric: Reports: anxiety, depressed, emotional problems Allergies: Coded Allergies: TETRACYCLINE (Unverified Allergy, Unknown, 07/24/14) TETRACYCLINES (Unverified Allergy, Unknown, 01/13/18) Subjective the pt has severe anxiety Objective Last 24 Hour Vital Signs Date Time Temp Pulse Resp B/P (MAP) Pulse Ox O2 Delivery O2 Flow Rate FiO2 01/19/18 16:00 98.2 116 18 108/52 (70) 95 98.2 01/19/18 12:00 98.0 110 18 100/60 (73) 93 98.0 01/19/18 09:23 120/56 01/19/18 09:23 105 120/51 01/19/18 09:10 Room Air 21 01/19/18 09:10 94 Room Air 21 01/19/18 09:10 Room Air 01/19/18 09:10 Room Air 01/19/18 08:30 Nasal Cannula 2.0 01/19/18 08:00 98.1 105 18 120/51 (74) 93 98.1 01/19/18 04:00 97.9 112 19 125/63 (83) 93 97.9 01/19/18 00:00 98.3 84 19 101/78 (86) 93 98.3 01/18/18 21:00 Nasal Cannula 2.0 01/18/18 20:53 77 18 Nasal Cannula 2.0 28 01/18/18 20:00 99.5 107 18 138/72 (94) 100 99.5 Intake and Output 01/18/18 01/19/18 19:00 07:00 Intake Total 300 ml 110.0 ml Balance 300 ml 110.0 ml Intake Oral 300 ml IV Total 110.0 ml # Voids 2 # Bowel Movements 11 Height (Feet): 5 Height (Inches): 0.00 Weight (Pounds): 127 General Appearance: no apparent distress, alert Neurologic: oriented x 3, responsive, depressed affect Wan Stern MD Jan 19, 2018 19:34
[2018-01-19 20:14] VITALS: BP 117/79
[2018-01-19] MEDS ORDERED: Ipratropium 0.02% Inh Soln 2.5ml UD HHN PRN (20:15)
--- NOTE | 2018-01-19 20:22 | Consultation ---
Consult Note Assessment/Plan DICT # [id number] Rafael Lerma MD Jan 19, 2018 20:22
[2018-01-20] MEDS: LORazepam 1mg tab ORAL PRN (00:01)
--- NOTE | 2018-01-20 00:15 | Consultation ---
DATE OF CONSULTATION: 01/19/2018 PULMONARY CONSULTATION CONSULTING PHYSICIAN: Rafael Lerma M.D. REFERRING PHYSICIAN: . REASON FOR CONSULTATION: Hypoxia. HISTORY OF PRESENT ILLNESS: The patient is a 77-year-old female with a known history of COPD, CAD, and diabetes, admitted with possible aspiration pneumonia, status post 5 days of Zosyn and azithromycin. The patient still with borderline hypoxemia with saturations in the low 90s; sinus tachycardia, low 100s, she is on room air to 2 liters. She is afebrile. She states her cough is at baseline, shortness of breath is persistent. She denies any wheezing. No fevers, chills, chest pain, headaches, dizziness, or other complaints. In's and out's are not accurate. She is currently off of antibiotics. Her white count today is 15.1, but she has been afebrile. She also has a 3+ leukocyte esterase noted on her most recent UA, but her urine culture is still pending. She had a stool sent for C. difficile, which was negative, and her blood cultures from admission have been negative. Chest x-rays have been reviewed by myself. Initial x-ray on 01/13/2018 showed some cardiomegaly and mild congestion. Repeat chest x-ray on 01/18/2018 showed a small left pleural effusion, improved overall since initial presentation. PAST MEDICAL HISTORY: 1. COPD. 2. CAD. 3. Diabetes. 4. CHF with diastolic dysfunction. 5. Hyperlipidemia. 6. Anxiety. 7. Fibromyalgia. 8. Osteoporosis. 9. Chronic left back pain. 10. Questionable history of mainstem bronchus stenosis. MEDICATIONS: [id number] medications were reviewed. Current medications were reviewed. ALLERGIES: Tetracycline. SOCIAL HISTORY: She is a former smoker, quit 8 years ago. Currently, residing in a fpc. No drug or alcohol use. FAMILY HISTORY: Noncontributory. REVIEW OF SYSTEMS: Negative other than history of present illness. PHYSICAL EXAMINATION: GENERAL: This is an elderly female, in no acute distress. Awake, alert, and oriented x3. VITAL SIGNS: Temperature is 98.2 degrees, pulse 116, blood pressure 108/52, respiratory rate 18, and saturating 95% on room air. HEENT: Normocephalic and atraumatic. Oropharynx is clear with moist mucous membranes. NECK: Supple without lymphadenopathy or JVP. CHEST: Scattered coarse breath sounds. HEART: Tachycardic, but regular. ABDOMEN: Soft, nontender, and nondistended. EXTREMITIES: No cyanosis, clubbing, or edema. ANCILLARY DATA: White count 15, hemoglobin 11.4, and platelet count 311. Sodium 134, potassium 3.1, chloride 96, bicarbonate 26, BUN 14, creatinine 0.6, and glucose 92. Hemoglobin A1c 5.2. Calcium 9.8. Magnesium 2. LFTs normal. FOBT negative. Urinalysis, 3+ LE, only occasional bacteria. Chest x-ray, mild pulmonary vascular congestion. ASSESSMENT: The patient is a 77-year-old female, former smoker with a history of COPD, CAD, diastolic dysfunction, hypertension, hyperlipidemia, and diabetes, admitted with respiratory illness, possible aspiration, slowly improving after a 5-day course of Zosyn and azithromycin, but with mild persistent hypoxemia. I suspect her hypoxemia is secondary to her underlying COPD. She had a CT chest done in June at [facility], which I reviewed and has been under the care of Dr. Jasbir Gay. I have reviewed his notes as well. At this time, we will optimize her COPD management and given the persistent hypoxemia and tachycardia, I will check duplex and D-dimer to evaluate for venous thromboembolism and an echocardiogram to get a better assessment of her filling pressures. PROBLEM LIST: 1. Hypoxemia, likely multifactorial secondary to underlying COPD, resolving pneumonia and a component of pulmonary edema. 2. COPD with possible exacerbation. 3. Questionable history of left mainstem bronchus stenosis. 4. CHF with diastolic dysfunction. 5. Resolving aspiration pneumonia. 6. CAD. 7. Hypertension. 8. Hyperlipidemia. 9. Diabetes. TREATMENT PLAN: 1. Optimize pulmonary hygiene/mobilize as tolerated. 2. Titrate down FiO2 to keep saturations around 90. 3. Continue Spiriva, add Advair. 4. Vflfq-pfk-rihrp and p.r.n. Atrovent only bronchodilators. 5. Continue Singulair. 6. Continue Mucinex and p.r.n. Robitussin. 7. Monitor volumes. 8. Observe off antibiotics with a low threshold to resume healthcare-associated coverage. 9. Check an echocardiogram to better assess filling pressures. 10. Aspiration precautions. 11. DVT prophylaxis with heparin subcutaneous. 12. Continue to encourage abstinence from tobacco use. , thank you for allowing me to assist in the care of your patient. If I may be of any assistance in the future, please do not hesitate to ask. Rafael Lerma M.D. DR: BELLO JOB#: [id number] CC:
[2018-01-20] MEDS: Ipratropium 0.02% Inh Soln 2.5ml UD HHN SCH ×3 (01:00→13:00)
[2018-01-20 04:30] VITALS: BP 107/43
[2018-01-20 06:30] LABS: HEMATOCRIT 26.5 % (37.0-47.0); HEMOGLOBIN 8.7 G/DL (12.0-16.0); MEAN CORPUSCULAR VOLUME 92 FL (80-99); PLATELET COUNT 264 K/UL (150-450); RED BLOOD COUNT 2.88 M/UL (4.20-5.40); WHITE BLOOD COUNT 17.7 K/UL (4.8-10.8)
[2018-01-20 06:59] LABS: ANION GAP 11 mmol/L (5-15); BLOOD UREA NITROGEN 70 mg/dL (7-18); CALCIUM 10.1 MG/DL (8.5-10.1); CARBON DIOXIDE 29 MMOL/L (21-32); CHLORIDE 100 MMOL/L (98-107); CREATININE 0.8 MG/DL (0.55-1.30); POTASSIUM 2.9 MMOL/L (3.5-5.1); SODIUM 140 MMOL/L (136-145)
[2018-01-20] MEDS: Montelukast 10mg tablet ORAL SCH (08:40)
[2018-01-20] MEDS: Megace 400mg/10ml Susp ORAL SCH ×2 (08:40→17:43)
[2018-01-20] MEDS: Docusate 100mg cap ORAL SCH ×3 (08:40→08:53)
[2018-01-20] MEDS: Aspirin EC 81mg tab ORAL SCH (08:40)
[2018-01-20] MEDS: Allopurinol 100mg Tab ORAL SCH ×2 (08:40→17:43)
[2018-01-20] MEDS: Multivitamin w/Minerals tab ORAL SCH (08:40)
[2018-01-20] MEDS: Lyrica 75mg cap ORAL SCH ×3 (08:41→08:55)
[2018-01-20 08:42] VITALS: BP 113/59
[2018-01-20] MEDS: Lisinopril 20mg tab ORAL SCH (08:42)
[2018-01-20] MEDS: Heparin 5000 units/ml inj SUBQ SCH (08:52)
[2018-01-20] MEDS: guaiFENesin 100mg/5ml Liq ud ORAL PRN (09:00)
[2018-01-20] MEDS ORDERED: Advair 250/50 Inhaler - 14 dose INH SCH (09:00)
[2018-01-20] MEDS ORDERED: Isovue-370 150ml vial INJ PRN (11:45)
[2018-01-20 12:00] VITALS: BP 113/59
[2018-01-20 13:03] VITALS: BP 133/69
--- NOTE | 2018-01-20 13:40 | Diagnostic Imaging Report ---
ndication: Chest pain and hypoxia Technique: IV administration nonionic contrast. Spiral acquisitions obtained from the lung bases to the lung apices. Multiplanar and 3-D reconstructions were generated. Total dose length product 754.31 mGycm. CTDIvol(s) 22.41 mGy. Dose reduction achieved using automated exposure control Comparison: Noncontrast chest CT dated 02/24/2017 Findings: Exam is somewhat limited due to respiratory motion artifact There is good quality opacification of the pulmonary arteries. No intraluminal filling defects or other findings to suggest acute pulmonary embolus are demonstrated. No right ventricular dilatation. Dilatation of the left main pulmonary artery is unchanged. No evidence of thoracic aortic aneurysm or dissection. Patent great neck vessels, normal branching anatomy. The upper abdominal visceral vessels are patent, demonstrate calcification and no definite significant stenosis. There is some crowding of the bronchovascular markings, particularly in the left lower lobe, due to cardiomegaly and some thoracic deformity. No infiltrates, effusions, or congestion. There are posterior dependent atelectatic changes of the right lower lobe. As mentioned above, the heart is enlarged. No pericardial effusion. No mediastinal or hilar mass or adenopathy. Unremarkable esophagus. Visualized portions of the thyroid are unremarkable. No axillary or chest wall mass or adenopathy. There is mild thoracic scoliotic deformity. Mild compression fracture deformities of T10 and T12 are again demonstrated distal sternal deformity is again noted Surgical clips are seen in the right axilla. Compared to the previous exam, previously demonstrated bilateral infiltrates have largely resolved. The included upper abdominal viscera are unremarkable. Impression: Negative for acute pulmonary embolus or other acute thoracic pathology Cardiomegaly Posterior dependent atelectatic changes Scoliosis Right axillary surgical clips Incidental findings as noted, including old T10 and T12 compression fracture deformities, midsternal fracture deformity, right axillary surgical clips The CT scanner at [facility] is accredited by the [employer] and the scans are performed using protocols designed to limit radiation exposure to as low as reasonably achievable to attain images of sufficient resolution adequate for diagnostic evaluation.
[2018-01-20] MEDS ORDERED: MEGACE ORA400 MG/10 ORAL (14:42)
--- NOTE | 2018-01-20 14:57 | Discharge Summary ---
Discharge Summary Hospital Course Date of Admission Jan 13, 2018 at 17:13 Date of Discharge 01/20/18 Admitting Diagnosis PNEUMONIA Reason for Hospitalization: Acute hypoxic respiratory failure, acute tracheobronchitis, HPI Brooke Sorensen is a 77 year old female who was admitted on Jan 13, 2018 at 17: 13 for Pneumonia Consultations Pulmonology Psychiatry Hematology Hospital Course Discharge Diagnoses: Acute on chronic hypoxic respiratory failure, acute tracheobronchitis, possible aspiration pneumonia, acute metabolic encepahlopathy. Patient was admitted to the medical service with acute hypoxic respiratory failure, bilateral infiltrates on chest imaging. She received 5 days of azithromycin and Zosyn with marginal improvement in respiratory status. She was seen by Pulmonology who felt she has an underlying chronic respiratory failure due to COPD and that her room air saturation of 89-90% is acceptable. CTA chest done on the day of discharge was negative for PE or infiltrates. [facility], was started on Megace due to poor appetite. Patient will need to have CBC and BMP check tomorrow . Time spent in preparing the discharge was 40 minutes which included coordination of care with consultants, nursing and case management. Discharge Discharge Disposition [facility] to [facility] Discharge Diagnoses: (1) Acute and chronic respiratory failure ([id number]) (2) Tracheobronchitis (3) Aspiration pneumonia (4) Acute metabolic encephalopathy Anjum Macedo MD Jan 20, 2018 14:57
--- NOTE | 2018-01-20 15:09 | Pulmonology Progress Note ---
Assessment/Plan Assessment/Plan Pulmonary Progress Note The patient is a 77-year-old female with a known history of COPD, CAD, and diabetes, admitted with possible aspiration pneumonia, status post 5 days of Zosyn and azithromycin. The patient still with borderline hypoxemia with saturations in the low 90s: CT Angiogram negative for Pulmonary Embolism or other intrathoracic pathology She states her cough is at baseline, shortness of breath is persistent. She denies any wheezing. No fevers, chills, chest pain, headaches, dizziness, or other comlaints. In's and out's are not accurate. She is currently off of antibiotics. Her white count today is 15.1, but she has been afebrile. She also has a 3+ leukocyte esterase noted on her most recent UA, but her urine culture is still pending. She had a stool sent for C. difficile, which was negative, and her blood cultures from admission have been negative. Chest x-rays have been reviewed by myself. Initial x-ray on 01/13/2018 showed some cardiomegaly and mild congestion. Repeat chest x-ray on 01/18/2018 showed a small left pleural effusion, improved overall since initial presentation. PAST MEDICAL HISTORY: 1. COPD. 2. CAD. 3. Diabetes. 4. CHF with diastolic dysfunction. 5. Hyperlipidemia. 6. Anxiety. 7. Fibromyalgia. 8. Osteoporosis. 9. Chronic left back pain. 10. Questionable history of mainstem bronchus stenosis. MEDICATIONS: Hgxan-gw-trngiscfy medications were reviewed. Current medications were reviewed. ALLERGIES: Tetracycline. SOCIAL HISTORY: She is a former smoker, quit 8 years ago. Currently, [facility] a jail. No drug or alcohol use. FAMILY HISTORY: Noncontributory. REVIEW OF SYSTEMS: Negative other than history of present illness. PHYSICAL EXAMINATION: GENERAL: This is an elderly female, in no acute distress. Awake, alert, and oriented x3. VITAL SIGNS: Temperature is 98.2 degrees, pulse 116, blood pressure 108/52, respiratory rate 18, and saturating 95% on room air. HEENT: Normocephalic and atraumatic. Oropharynx is clear with moist mucous membranes. NECK: Supple without lymphadenopathy or JVP. CHEST: Scattered coarse breath sounds. HEART: Tachycardic, but regular. ABDOMEN: Soft, nontender, and nondistended. EXTREMITIES: No cyanosis, clubbing, or edema. ANCILLARY DATA: White count 15, hemoglobin 11.4, and platelet count 311. Sodium 134, potassium 3.1, chloride 96, bicarbonate 26, BUN 14, creatinine 0.6, and glucose 92. Hemoglobin A1c 5.2. Calcium 9.8. Magnesium 2. LFTs normal. FOBT negative. Urinalysis, 3+ LE, only occasional bacteria. Chest x-ray, mild pulmonary vascular congestion. ASSESSMENT: The patient is a 77-year-old female, former smoker with a history of COPD, CAD, diastolic dysfunction, hypertension, hyperlipidemia, and diabetes, admitted with respiratory illness, possible aspiration, slowly improving after a 5-day course of Zosyn and azithromycin, but with mild persistent hypoxemia. I suspect her hypoxemia is secondary to her underlying COPD. She had a CT chest done in June at [facility], which I reviewed and has been under the care of Dr. Jasbir Gay. I have reviewed his notes as well. At this time, we will optimize her COPD management and given the persistent hypoxemia and tachycardia, I will check duplex and D-dimer to evaluate for venous thromboembolism and an echocardiogram to get a better assessment of her filling pressures. PROBLEM LIST: 1. Hypoxemia, likely multifactorial secondary to underlying COPD, resolving pneumonia and a component of pulmonary edema. 2. COPD with possible exacerbation. 3. Questionable history of left mainstem bronchus stenosis. 4. CHF with diastolic dysfunction. 5. Resolving aspiration pneumonia. 6. CAD. 7. Hypertension. 8. Hyperlipidemia. 9. Diabetes. TREATMENT PLAN: 1. Optimize pulmonary hygiene/mobilize as tolerated. 2. Titrate down FiO2 to keep saturations around 90. 3. Continue Spiriva, add Advair. 4. Ijwlk-tqf-dinda and p.r.n. Atrovent only bronchodilators. 5. Continue Singulair. 6. Continue Mucinex and p.r.n. Robitussin. 7. Monitor volumes. 8. Observe off antibiotics with a low threshold to resume healthcare-associated coverage. 9. Check an echocardiogram to better assess filling pressures. 10. Aspiration precautions. 11. DVT prophylaxis with heparin subcutaneous. 12. Continue to encourage abstinence from tobacco use. Subjective ROS Limited/Unobtainable: No Allergies: Coded Allergies: TETRACYCLINE (Unverified Allergy, Unknown, 07/24/14) TETRACYCLINES (Unverified Allergy, Unknown, 01/13/18) Objective Last 24 Hour Vital Signs Date Time Temp Pulse Resp B/P (MAP) Pulse Ox O2 Delivery O2 Flow Rate FiO2 01/20/18 13:35 Room Air 21 01/20/18 13:34 Room Air 21 01/20/18 13:03 97.2 110 18 133/69 (90) 92 97.2 01/20/18 09:54 Nasal Cannula 2.0 01/20/18 09:46 94 20 96 Room Air 21 01/20/18 09:45 95 20 96 Room Air 21 01/20/18 09:44 95 18 96 Room Air 21 01/20/18 09:44 94 20 96 Room Air 21 01/20/18 08:42 97.7 108 18 113/59 (77) 92 97.7 01/20/18 08:42 113/59 01/20/18 08:42 108 113/59 01/20/18 07:49 111 20 99 Room Air 21 01/20/18 07:36 Room Air 21 01/20/18 07:36 97 Room Air 21 01/20/18 07:35 108 20 97 Room Air 21 01/20/18 04:30 97.7 110 18 107/43 (64) 92 97.7 01/20/18 01:25 Nasal Cannula 2.0 28 01/20/18 01:25 Nasal Cannula 01/20/18 00:50 96.8 100 19 92 96.8 01/19/18 21:00 Nasal Cannula 2.0 01/19/18 20:58 Room Air 21 01/19/18 20:57 95 Room Air 21 01/19/18 20:14 97.0 120 19 117/79 (92) 91 97.0 01/19/18 16:00 98.2 116 18 108/52 (70) 95 98.2 Intake and Output 01/19/18 01/20/18 19:00 07:00 Intake Total 240 ml Balance 240 ml Intake Oral 240 ml # Voids 3 3 # Bowel Movements 3 2 Microbiology Date/Time Source Procedure Growth Status 01/18/18 14:00 Blood Blood Culture - Preliminary NO GROWTH AFTER 24 HOURS Resulted 01/18/18 13:45 Blood Blood Culture - Preliminary NO GROWTH AFTER 24 HOURS Resulted 01/18/18 10:45 Stool Clostridium difficile Toxin Assay - Final Complete 01/18/18 10:45 Stool Ova and Parasites - Final Complete 01/18/18 10:45 Stool Ova and Parasite Result 1 - Final Complete 01/18/18 10:45 Stool Stool Culture - Preliminary Suzanne Albicans Usual Fecal Luna Resulted 01/18/18 13:12 External Cath Urine Culture - Preliminary YEAST Resulted Laboratory Tests 01/19/18 20:35: D-Dimer 1.32H, Arterial Blood pH 7.477H, Arterial Blood Partial Pressure CO2 37.8, Arterial Blood Partial Pressure O2 58.8L, Arterial Blood HCO3 27.3H, Arterial Blood Oxygen Saturation 89.6L, Arterial Blood Base Excess 3.6, Scooby Test Positive, Troponin I 0.003, Pro-B-Type Natriuretic Peptide 328H 01/20/18 05:15: White Blood Count 17.7H, Red Blood Count 2.88L, Hemoglobin 8.7L, Hematocrit 26.5L, Mean Corpuscular Volume 92, Mean Corpuscular Hemoglobin 30.1, Mean Corpuscular Hemoglobin Concent 32.8, Red Cell Distribution Width 13.0, Platelet Count 264, Mean Platelet Volume 6.1L, Neutrophils (%) (Auto) , Lymphocytes (%) ( Auto) , Monocytes (%) (Auto) , Eosinophils (%) (Auto) , Basophils (%) (Auto) , Differential Total Cells Counted 100, Neutrophils % (Manual) 75, Lymphocytes % ( Manual) 21, Monocytes % (Manual) 4, Eosinophils % (Manual) 0, Basophils % ( Manual) 0, Band Neutrophils 0, Platelet Estimate Adequate, Platelet Morphology Normal, Hypochromasia 2+, Anisocytosis 1+, Spherocytes 1+, Sodium Level 140, Potassium Level 2.9L, Chloride Level 100, Carbon Dioxide Level 29, Anion Gap 11 , Blood Urea Nitrogen 70H, Creatinine 0.8, Estimat Glomerular Filtration Rate , Glucose Level 126H, Calcium Level 10.1 Current Medications Medications (Trade) Dose Ordered Sig/Wilner Route PRN Reason Start Time Stop Time Status Last Admin Dose Admin Acetaminophen (Tylenol) 650 mg Q4H PRN ORAL Mild Pain (Pain Scale 1-3) 01/13/18 22:30 02/12/18 22:29 Acetaminophen (Tylenol) 650 mg Q4H PRN ORAL fever 01/13/18 22:30 02/12/18 22:29 Acetaminophen/ Hydrocodone Bitart (Inlet 5/325) 1 tab Q8HR PRN ORAL For Pain 01/13/18 22:30 01/20/18 22:29 01/19/18 15:53 Allopurinol (Zyloprim) 100 mg BID ORAL 01/13/18 23:00 02/12/18 22:59 01/20/18 08:40 Amlodipine Besylate (Norvasc) 10 mg DAILY ORAL 01/14/18 09:00 02/13/18 08:59 01/20/18 08:42 Aspirin (Ecotrin) 81 mg DAILY ORAL 01/14/18 09:00 02/13/18 08:59 01/20/18 08:40 Bisacodyl (Dulcolax) 10 mg HSPRN PRN RECTAL Constipation 01/13/18 22:30 02/12/18 22:29 Clonazepam (KlonoPIN) 1 mg QHS ORAL 01/14/18 21:00 01/21/18 20:59 01/19/18 20:27 Dextrose (Dextrose 50%) 25 ml STAT PRN IV Hypoglycemia 01/13/18 22:30 02/12/18 22:29 Dextrose (Dextrose 50%) 50 ml STAT PRN IV Hypoglycemia 01/13/18 22:30 02/12/18 22:29 Dicyclomine HCl (Bentyl) 10 mg Q6H PRN ORAL for irritable bowel syndrome 01/14/18 08:45 02/12/18 08:44 01/19/18 14:22 Docusate Sodium (Colace) 100 mg EVERY 12 HOURS ORAL 01/13/18 22:40 02/12/18 22:39 01/19/18 20:27 Escitalopram Oxalate (Lexapro) 10 mg DAILY ORAL 01/14/18 09:00 02/13/18 08:59 01/20/18 08:40 Ferrous Sulfate (Feosol) 325 mg DAILY ORAL 01/14/18 09:00 02/13/18 08:59 01/20/18 08:40 Guaifenesin (Robitussin) 100 mg Q4H PRN ORAL For Cough 01/13/18 22:45 02/12/18 22:44 01/20/18 09:00 Heparin Sodium (Porcine) (Heparin 5000 units/ml) 5,000 units EVERY 12 HOURS SUBQ 01/13/18 23:00 02/12/18 22:59 01/19/18 20:28 Iopamidol (Isovue-370 150ml) 150 ml NOW PRN INJ Radiology Procedure 01/20/18 11:45 01/22/18 11:44 Ipratropium [place] (Atrovent) 500 mcg Q4H PRN HHN Shortness of Breath 01/19/18 20:15 01/24/18 20:14 Ipratropium [place] (Atrovent) 500 mcg Q6HRT HHN 01/20/18 01:00 01/25/18 00:59 01/20/18 07:33 Lisinopril (Prinivil) 20 mg DAILY ORAL 01/14/18 09:00 02/13/18 08:59 01/20/18 08:42 Lorazepam (Ativan) 2 mg QID PRN ORAL anxiety 01/18/18 13:00 01/22/18 11:59 01/20/18 00:01 Megestrol Acetate (Megace) 400 mg TWICE A DAY ORAL 01/19/18 18:00 02/18/18 17:59 01/20/18 08:40 Metoclopramide HCl (Reglan) 10 mg Q8H PRN IVP Nausea & Vomiting 01/16/18 11:30 02/15/18 11:29 01/18/18 02:39 Montelukast Sodium (Singulair) 10 mg DAILY ORAL 01/14/18 09:00 02/13/18 08:59 01/20/18 08:40 Multivitamins Therapeutic (Therapeutic Multivitamin) 1 ea DAILY ORAL 01/14/18 09:00 02/13/18 08:59 01/20/18 08:40 Ondansetron HCl (Zofran) 4 mg Q6H PRN IVP Nausea & Vomiting 01/13/18 22:30 02/12/18 22:29 01/19/18 10:48 Polyethylene Glycol (Miralax) 17 gm HSPRN PRN ORAL Constipation 01/13/18 22:30 02/12/18 22:29 Pravastatin Sodium (Pravachol) 40 mg BEDTIME ORAL 01/13/18 22:50 02/12/18 22:49 01/19/18 20:27 Pregabalin (Lyrica) 225 mg BID ORAL 01/13/18 22:51 02/12/18 22:50 01/14/18 17:23 Salmeterol Xinafoate/ Fluticasone (Advair 250/50 Diskus) 1 puffs BID INH 01/20/18 09:00 02/19/18 08:59 01/20/18 09:41 Tiotropium [place] (Spiriva Inhaler) 1 puff DAILY INH 01/14/18 09:00 02/13/18 08:59 01/20/18 09:41 Isiah Olvera MD Jan 20, 2018 15:09
[2018-01-20 16:00] VITALS: BP 133/69
[2018-01-20 16:45] VITALS: BP 128/68
--- NOTE | 2018-01-20 18:30 | Cardiology Report ---
APPROVED REPORT EXAM: Two-dimensional and M-mode echocardiogram with Doppler and color Doppler. INDICATION Congestive Heart Failure M-Mode DIMENSIONS IVSd1.5 (0.7-1.1cm)Left Atrium (MM)1.9 (1.6-4.0cm) LVDd2.7 (3.5-5.6cm)Aortic Root2.9 (2.0-3.7cm) PWd1.1 (0.7-1.1cm)Aortic Cusp Exc.1.7 (1.5-2.0cm) IVSs1.1 cm LVDs1.8 (2.5-4.0cm) PWs1.7 cm Technically difficult study due to pts resistance . Normal left ventricular chamber size, systolic function and wall motion as well visualized Left ventricular ejection fraction estimated to be 55-60%. Moderate left ventricular hypertrophy by2-D. No evidence of pericardial effusion. All other cardiac chamber sizes are within normal limits. Focal aortic valve sclerosis with adequate cusp excursion. Thickened mitral valve leaflets with normal excursion. Mitral annulus and aortic root calcification. Pulmonic valve not well visualized. Normal tricuspid valve structure. subcostal views are not obtained . A color flow and spectral Doppler study was performed and revealed: No aortic regurgitation. Trace mitral regurgitation. Mild tricuspid regurgitation. Tricuspid systolic velocities suggests peak right ventricular systolic pressure of 19mmHg.
--- NOTE | 2018-01-20 19:00 | Cardiology Report ---
APPROVED REPORT EKG Measurement Heart [id number] Sinus tachycardia Left ventricular hypertrophy with repolarization abnormality Abnormal ECG
--- NOTE | 2018-01-20 20:05 | General Progress Note ---
Assessment/Plan Assessment/Plan MDD Anxiety d/o -ativan 2mg po qid/prn -klonopin 1mg qhs -lexapro 10mg qam Subjective Date patient seen: Jan 20, 2018 Neurologic/Psychiatric: Reports: anxiety, depressed, emotional problems Allergies: Coded Allergies: TETRACYCLINE (Unverified Allergy, Unknown, 07/24/14) TETRACYCLINES (Unverified Allergy, Unknown, 01/13/18) Subjective the pt has severe anxiety Objective Last 24 Hour Vital Signs Date Time Temp Pulse Resp B/P (MAP) Pulse Ox O2 Delivery O2 Flow Rate FiO2 01/20/18 16:45 97.5 103 20 128/68 (88) 95 97.5 01/20/18 16:00 97.5 105 20 133/69 (90) 95 97.5 01/20/18 13:35 Room Air 21 01/20/18 13:34 Room Air 21 01/20/18 13:03 97.2 110 18 133/69 (90) 92 97.2 01/20/18 12:00 97.5 108 20 113/59 (77) 95 97.5 01/20/18 09:54 Nasal Cannula 2.0 01/20/18 09:46 94 20 96 Room Air 21 01/20/18 09:45 95 20 96 Room Air 21 01/20/18 09:44 95 18 96 Room Air 21 01/20/18 09:44 94 20 96 Room Air 21 01/20/18 08:42 97.7 108 18 113/59 (77) 92 97.7 01/20/18 08:42 113/59 01/20/18 08:42 108 113/59 01/20/18 07:49 111 20 99 Room Air 21 01/20/18 07:36 Room Air 21 01/20/18 07:36 97 Room Air 21 01/20/18 07:35 108 20 97 Room Air 21 01/20/18 04:30 97.7 110 18 107/43 (64) 92 97.7 01/20/18 01:25 Nasal Cannula 2.0 28 01/20/18 01:25 Nasal Cannula 01/20/18 00:50 96.8 100 19 92 96.8 01/19/18 21:00 Nasal Cannula 2.0 01/19/18 20:58 Room Air 21 01/19/18 20:57 95 Room Air 21 01/19/18 20:14 97.0 120 19 117/79 (92) 91 97.0 Intake and Output 01/19/18 01/20/18 19:00 07:00 Intake Total 240 ml Balance 240 ml Intake Oral 240 ml # Voids 3 3 # Bowel Movements 3 2 Laboratory Tests 01/19/18 20:35: D-Dimer 1.32H, Arterial Blood pH 7.477H, Arterial Blood Partial Pressure CO2 37.8, Arterial Blood Partial Pressure O2 58.8L, Arterial Blood HCO3 27.3H, Arterial Blood Oxygen Saturation 89.6L, Arterial Blood Base Excess 3.6, Scooby Test Positive, Troponin I 0.003, Pro-B-Type Natriuretic Peptide 328H 01/20/18 05:15: White Blood Count 17.7H, Red Blood Count 2.88L, Hemoglobin 8.7L, Hematocrit 26.5L, Mean Corpuscular Volume 92, Mean Corpuscular Hemoglobin 30.1, Mean Corpuscular Hemoglobin Concent 32.8, Red Cell Distribution Width 13.0, Platelet Count 264, Mean Platelet Volume 6.1L, Neutrophils (%) (Auto) , Lymphocytes (%) ( Auto) , Monocytes (%) (Auto) , Eosinophils (%) (Auto) , Basophils (%) (Auto) , Differential Total Cells Counted 100, Neutrophils % (Manual) 75, Lymphocytes % ( Manual) 21, Monocytes % (Manual) 4, Eosinophils % (Manual) 0, Basophils % ( Manual) 0, Band Neutrophils 0, Platelet Estimate Adequate, Platelet Morphology Normal, Hypochromasia 2+, Anisocytosis 1+, Spherocytes 1+, Sodium Level 140, Potassium Level 2.9L, Chloride Level 100, Carbon Dioxide Level 29, Anion Gap 11 , Blood Urea Nitrogen 70H, Creatinine 0.8, Estimat Glomerular Filtration Rate , Glucose Level 126H, Calcium Level 10.1 Height (Feet): 5 Height (Inches): 0.00 Weight (Pounds): 118 General Appearance: no apparent distress, alert Neurologic: oriented x 3, responsive Wan Stern MD Jan 20, 2018 20:05
== END 2018-01-20 18:32 | DRG 177 ==
LOC: EDBD 15:15 → EMR 16:47 → 4E 17:13 → EDBEDREQ 20:01
DX: J69.0 Pneumonitis due to inhalation of food and vomit (principal); J96.21 Acute and chronic respiratory failure with hypoxia; G93.41 Metabolic encephalopathy; E11.9 Type 2 diabetes mellitus without complications; I10 Essential (primary) hypertension; J44.9 Chronic obstructive pulmonary disease, unspecified; F41.9 Anxiety disorder, unspecified; D64.9 Anemia, unspecified; J20.9 Acute bronchitis, unspecified; Z88.8 Allergy status to other drugs, medicaments and biological substances; M79.7 Fibromyalgia; Z85.3 Personal history of malignant neoplasm of breast; M81.0 Age-related osteoporosis without current pathological fracture; E78.00 Pure hypercholesterolemia, unspecified; M47.26 Other spondylosis with radiculopathy, lumbar region; M47.22 Other spondylosis with radiculopathy, cervical region; F32.9 Major depressive disorder, single episode, unspecified; D63.8 Anemia in other chronic diseases classified elsewhere; Z87.891 Personal history of nicotine dependence; J98.09 Other diseases of bronchus, not elsewhere classified; I25.10 Atherosclerotic heart disease of native coronary artery without angina pectoris
CPT/HCPCS: 36415; 36600; 71045; 71275; 80048; 80053; 81001; 81003; 82150; 82247; 82270; 82550; 82553; 82607; 82728; 82746; 82803; 83036; 83540; 83550; 83605; 83615; 83690; 83735; 83880; 84075; 84443; 84450; 84460; 84484; 84550; 85007; 85025; 85044; 85060; 85379; 85610; 85660; 87040; 87045; 87081; 87086; 87324; 93005; 93306; 93970; 94640; 94664; 94760; 96365; 96368; 96375; 99285; J2405; J2765; J7620; J8499

== ENCOUNTER 2019-01-12 13:56 | Outpatient (CLI) | payer MEDICARE, OTHER ==
[~2019-01-12 13:56] MED LIST changes: +ATIVAN0.5 MG ORAL; +BREO ELLIPTA 11 EACH IH; +CRANBERRY450 M4 PO; +DICYCLOMINE HCL10 MG PO; +FERROUS SULFAT325 MG ORAL; +LEXAPRO10 MG ORAL; +LYRICA75 M1 ORAL; +MAGNESIUM OXID250 MG PO; +MEGACE ORA400 MG/10 ORAL; +MONTELUKAST SOD10 MG ORAL; +MULTIVITAMINS1 EAC8 ORAL; +OYSTER SHELL 51 EAC1 PO
[2019-01-12 14:05] VITALS: BP 120/65
[2019-01-12] MEDS ORDERED: HYOSYNE0.125 MG/1 PO (15:20)
[2019-01-12] MEDS ORDERED: MYLANTA PO (15:20)
[2019-01-12] MEDS ORDERED: ZOFRAN4 M3 ORAL (15:20)
[2019-01-12] MEDS ORDERED: MILK OF MA400 MG/51 ORAL (15:20)
[2019-01-12] MEDS ORDERED: GABAPENTIN300 MG ORAL (15:20)
[2019-01-12] MEDS ORDERED: MIRALAX17 G2 ORAL (15:20)
[2019-01-12] MEDS ORDERED: FLEET ENEMA133 ML RECTAL (15:20)
[2019-01-12] MEDS ORDERED: AMLODIPINE BESY10 MG ORAL (15:20)
[2019-01-12] MEDS ORDERED: BEVESPI AEROSPHERE (15:20)
[2019-01-12] MEDS ORDERED: CRESTOR20 MG ORAL (15:20)
[2019-01-12] MEDS ORDERED: PROTONIX40 MG ORAL (15:20)
[2019-01-12] MEDS ORDERED: MAGIC MOUTHWASH PO (15:20)
[2019-01-12] MEDS ORDERED: FLONASE ALLERG9.9 ML NS (15:20)
[2019-01-12] MEDS ORDERED: MAG OXIDE PO (15:20)
[2019-01-12] MEDS ORDERED: GUAIFENESIN-CO118 M1 ORAL (15:20)
[2019-01-12] MEDS ORDERED: RANITIDINE PO (15:20)
[2019-01-12] MEDS ORDERED: LYRICA75 M1 ORAL (15:20)
[2019-01-12] MEDS ORDERED: MELATONIN 3 MG1 EAC1 PO (15:20)
[2019-01-12] MEDS ORDERED: DULCOLAX10 MG RC (15:20)
[2019-01-12] MEDS ORDERED: LEXAPRO20 MG ORAL (15:20)
[2019-01-12] MEDS ORDERED: ACETAMINOPHEN325 M1 ORAL (15:20)
[2019-01-12] MEDS ORDERED: MUCOMYST PO (15:20)
[2019-01-12] MEDS ORDERED: OXYCODONE HCL5 MG ORAL (15:20)
[2019-01-12] MEDS ORDERED: SIMETHICONE125 M1 PO (15:20)
[2019-01-12] MEDS ORDERED: XOPENEX0.63 MG/3 HHN (15:20)
[2019-01-12] MEDS ORDERED: TESSALON PERLE100 MG ORAL (15:20)
[2019-01-12] MEDS ORDERED: ATROVENT HFA12.9 GM IH (15:20)
[2019-01-12] MEDS ORDERED: OS-CAL 500+D31 EAC1 PO (15:20)
--- NOTE | 2019-01-12 23:15 | Consultation ---
DATE OF CONSULTATION: 01/12/2019 CONSULTING PHYSICIAN: Kapil Arshad M.D. CHIEF COMPLAINT: Constipation. HISTORY OF PRESENT ILLNESS: The patient is a 78-year-old female, half-way patient with numerous medical problems, which I will dictate in a second, who was referred to us for evaluation for chronic constipation. The patient also has a history of large colonic polyp. According to her, it was not removed because she was in pain. PAST MEDICAL HISTORY: 1. Depression. 2. IBS. 3. Pneumonia. 4. COPD. 5. GERD. 6. Arthritis. 7. H. pylori infection. 8. C. difficile infection. 9. Anemia. 10. CHF. 11. UTI. 12. Right breast cancer. PAST SURGICAL HISTORY: Mastectomy. MEDICATIONS: Please see medication reconciliation list. ALLERGIES: Allergic to tetracycline. FAMILY HISTORY: Noncontributory. SOCIAL HISTORY: Currently lives in a half-way. No recent history of tobacco, alcohol, or drug abuse. REVIEW OF SYSTEMS: Complaint of abdominal pain and constipation. PHYSICAL EXAMINATION: VITAL SIGNS: Temperature 98.4, blood pressure is 120/64, pulse 70, and respirations 20. HEENT: Normocephalic and atraumatic. Sclerae anicteric. NECK: Supple. No evidence of obvious lymphadenopathy. CARDIOVASCULAR: Regular rate and rhythm. Plus S1 and S2. No obvious murmur. LUNGS: Decreased breath sounds bilaterally based on the supine exam. ABDOMEN: Soft and nontender. No rebound. No guarding. No peritoneal sign. EXTREMITIES: No cyanosis, no clubbing, no edema. ASSESSMENT AND PLAN: 1. This is a 78-year-old female with chronic constipation, most probably secondary to narcotics, maybe also combination of narcotics-induced and some baseline constipation. Plan to start Movantik 25 mg p.o. daily. The patient was told to come back next week if Movantik is not working. At that time, we are going to try . 2. Colonic polyps. The patient also needs to have a repeat colonoscopy. At this time, the patient is wheelchair bound, and it is very hard for . So, we decided to do the Cologuard test at this time. I will continue with colonoscopy when the constipation is under better control, may be next visit. Kapil Arshad M.D. DR: ABAD JOB#: [id number] CC:
== END 2019-01-12 15:56 | disposition home or self-care (01) ==
LOC: PAN 13:56
DX: K59.00 Constipation, unspecified (principal); F32.9 Major depressive disorder, single episode, unspecified; K58.9 Irritable bowel syndrome, unspecified; J44.9 Chronic obstructive pulmonary disease, unspecified; K21.9 Gastro-esophageal reflux disease without esophagitis; M19.90 Unspecified osteoarthritis, unspecified site; I50.9 Heart failure, unspecified; Z85.3 Personal history of malignant neoplasm of breast; Z90.10 Acquired absence of unspecified breast and nipple; Z88.8 Allergy status to other drugs, medicaments and biological substances; Z86.010 Personal history of colon polyps; Z99.3 Dependence on wheelchair

== ENCOUNTER 2019-02-02 12:27 | Outpatient (CLI) | payer MEDICARE, OTHER ==
[~2019-02-02 12:27] MED LIST changes: +ACETAMINOPHEN325 M1 ORAL; +AMLODIPINE BESY10 MG ORAL; +ATROVENT HFA12.9 GM IH; +BEVESPI AEROSPHERE; +CRESTOR20 MG ORAL; +DULCOLAX10 MG RC; +FLEET ENEMA133 ML RECTAL; +FLONASE ALLERG9.9 ML NS; +GABAPENTIN300 MG ORAL; +GUAIFENESIN-CO118 M1 ORAL; +HYOSYNE0.125 MG/1 PO; +LEXAPRO20 MG ORAL; +MAG OXIDE PO; +MAGIC MOUTHWASH PO; +MELATONIN 3 MG1 EAC1 PO; +MILK OF MA400 MG/51 ORAL; +MIRALAX17 G2 ORAL; +MUCOMYST PO; +MYLANTA PO; +OS-CAL 500+D31 EAC1 PO; +OXYCODONE HCL5 MG ORAL; +PROTONIX40 MG ORAL; +RANITIDINE PO; +SIMETHICONE125 M1 PO; +TESSALON PERLE100 MG ORAL; +XOPENEX0.63 MG/3 HHN; +ZOFRAN4 M3 ORAL
--- NOTE | 2019-02-02 13:05 | General Progress Note ---
Assessment/Plan Problem List: (1) Pneumonia ICD Codes: J18.9 - Pneumonia, unspecified organism SNOMED: 406538424 (2) Diastolic CHF ICD Codes: I50.30 - Unspecified diastolic (congestive) heart failure SNOMED: 32903455, 761341115 (3) History of breast cancer ICD Codes: Z85.3 - Personal history of malignant neoplasm of breast SNOMED: 913913898 (4) Hypertension ICD Codes: I10 - Essential (primary) hypertension SNOMED: 86241249 (5) Cervical spondylosis ICD Codes: M47.812 - Cervical spondylosis SNOMED: 429979387 (6) Fibromyalgia ICD Codes: M79.7 - Fibromyalgia SNOMED: 06683449 (7) Constipation ICD Codes: K59.00 - Constipation, unspecified SNOMED: 80380302 Assessment/Plan: colace, miralax and Linzess 290 combo fu cologuard test RTC one month needs colonoscopy but will wait for cologuard test Subjective ROS Limited/Unobtainable: Yes Allergies: Coded Allergies: TETRACYCLINE (Unverified Allergy, Unknown, 07/24/14) TETRACYCLINES (Unverified Allergy, Unknown, 01/13/18) Objective General Appearance: alert EENT: normal ENT inspection Neck: supple Cardiovascular: normal rate Respiratory/Chest: decreased breath sounds Abdomen: normal bowel sounds, non tender, soft Extremities: non-tender Kapil Arshad MD Feb 02, 2019 13:05
== END 2019-02-02 14:27 | disposition home or self-care (01) ==
LOC: PAN 12:27
DX: K59.00 Constipation, unspecified (principal); M79.7 Fibromyalgia; M47.812 Spondylosis without myelopathy or radiculopathy, cervical region; I10 Essential (primary) hypertension; Z85.3 Personal history of malignant neoplasm of breast; I50.30 Unspecified diastolic (congestive) heart failure; J18.9 Pneumonia, unspecified organism; Z88.8 Allergy status to other drugs, medicaments and biological substances
CPT/HCPCS: 99212

== ENCOUNTER 2019-02-09 22:38 | Inpatient (IN) | payer MEDICARE, OTHER ==
[~2019-02-09] VITALS: Ht 132.1 cm; Wt 51.7 kg
[~2019-02-09 22:38] MED LIST changes: -BEVESPI AEROSPHERE; +BEVESPI AEROSPHERE INH
--- NOTE | 2019-02-09 23:22 | Emergency Room Report ---
History of Present Illness General Chief Complaint: Gastrointestinal Bleed Source: Patient, Medical Record Present Illness HPI 78-year-old female presents with positive stool occult blood tests at home, patient has been feeling lightheaded, has been ongoing for a month, patient denies any fevers chills chest pain but she does feel some dyspnea, no abdominal pain no known aggravating or alleviating factors severity is mild, symptoms are constant, patient presents for evaluation of a possible GI bleed. Allergies: Coded Allergies: TETRACYCLINE (Unverified Allergy, Unknown, 07/24/14) Patient History Past Medical History: see triage record Reviewed Nursing Documentation: PMH: Agreed; PSxH: Agreed Nursing Documentation-PMH Past Medical History: No History, Except For Hx Cardiac Problems: Yes Hx Hypertension: Yes Hx Asthma: Yes Hx COPD: Yes Hx Diabetes: Yes Hx Cancer: Yes Hx Gastrointestinal Problems: Yes Hx Neurological Problems: No Review of Systems All Other Systems: negative except mentioned in HPI Physical Exam Vital Signs Date Time Temp Pulse Resp B/P (MAP) Pulse Ox O2 Delivery O2 Flow Rate FiO2 02/09/19 22:38 99.0 16 94 Room Air Sp02 EP Interpretation: reviewed, normal General Appearance: well appearing, no apparent distress, alert Head: normocephalic, atraumatic Eyes: bilateral eye PERRL, bilateral eye EOMI ENT: uvula midline, moist mucus membranes Neck: supple, thyroid normal, supple/symm/no masses Respiratory: lungs clear, no respiratory distress, no retraction, no accessory muscle use Cardiovascular #1: normal peripheral pulses, regular rate, rhythm, no edema, no gallop, no murmur Gastrointestinal: non tender, soft, no guarding, no rebound Musculoskeletal: normal inspection Neurologic: alert, oriented x3 Psychiatric: mood/affect normal Skin: no rash, warm/dry Medical Decision Making Diagnostic Impression: Primary Impression: GI bleed Qualified Codes: K92.2 - Gastrointestinal hemorrhage, unspecified Additional Impression: UTI (urinary tract infection) Qualified Codes: N30.00 - Acute cystitis without hematuria ER Course 78-year-old female presents with GI bleed positive Hemoccult. Patient with signs of symptomatic anemia patient will be admitted to telemetry, pantoprazole given, ceftriaxone given Patient admitted to Dr. Caputo Laboratory Tests Test 02/09/19 23:20 White Blood Count 6.3 K/UL (4.8-10.8) Red Blood Count 3.69 M/UL (4.20-5.40) L Hemoglobin 10.8 G/DL (12.0-16.0) L Hematocrit 32.8 % (37.0-47.0) L Mean Corpuscular Volume 89 FL (80-99) Mean Corpuscular Hemoglobin 29.2 PG (27.0-31.0) Mean Corpuscular Hemoglobin Concent 32.9 G/DL (32.0-36.0) Red Cell Distribution Width 13.5 % (11.6-14.8) Platelet Count 213 K/UL (150-450) Mean Platelet Volume 5.3 FL (6.5-10.1) L Neutrophils (%) (Auto) 44.3 % (45.0-75.0) L Lymphocytes (%) (Auto) 44.8 % (20.0-45.0) Monocytes (%) (Auto) 7.1 % (1.0-10.0) Eosinophils (%) (Auto) 3.0 % (0.0-3.0) Basophils (%) (Auto) 0.8 % (0.0-2.0) Prothrombin Time 10.4 SEC (9.30-11.50) Prothrombin Time INR 1.0 (0.9-1.1) PTT 30 SEC (23-33) Urine Color Pale yellow Urine Appearance Clear Urine pH 7 (4.5-8.0) Urine Specific [place] 1.005 (1.005-1.035) Urine Protein Negative (NEGATIVE) Urine Glucose (UA) Negative (NEGATIVE) Urine Ketones Negative (NEGATIVE) Urine Blood 1+ (NEGATIVE) H Urine Nitrite Negative (NEGATIVE) Urine Bilirubin Negative (NEGATIVE) Urine Urobilinogen Normal MG/DL (0.0-1.0) Urine Leukocyte Esterase 2+ (NEGATIVE) H Urine RBC 0-2 /HPF (0 - 2) Urine WBC 15-20 /HPF (0 - 2) H Urine Squamous Epithelial Cells Few /LPF (NONE/OCC) Urine Bacteria Moderate /HPF (NONE) H Sodium Level 132 MMOL/L (136-145) L Potassium Level 4.4 MMOL/L (3.5-5.1) Chloride Level 98 MMOL/L (98-107) Carbon Dioxide Level 29 MMOL/L (21-32) Anion Gap 5 mmol/L (5-15) Blood Urea Nitrogen 15 mg/dL (7-18) Creatinine 0.7 MG/DL (0.55-1.30) Estimate Glomerular Filtration Rate mL/min (>60) Glucose Level 101 MG/DL (74-106) Calcium Level 9.0 MG/DL (8.5-10.1) Total Bilirubin 0.2 MG/DL (0.2-1.0) Aspartate Amino Transferase (AST) 12 U/L (15-37) L Alanine Aminotransferase (ALT) 17 U/L (12-78) Alkaline Phosphatase 90 U/L (46-116) Total Protein 6.9 G/DL (6.4-8.2) Albumin 3.4 G/DL (3.4-5.0) Globulin 3.5 g/dL Albumin/Globulin Ratio 1.0 (1.0-2.7) Lipase 195 U/L (73-393) EKG Diagnostic Results EKG Time: 22:55 EP Interpretation: NSR, rate 64, QTc 433, no acute ST elevations, normal axis Rhythm Strip Diag. Results Rhythm Strip Time: 23:22 EP Interpretation: yes Rate: 68 Rhythm: NSR, no PVC's, no ectopy Chest X-Ray Diagnostic Results Chest X-Ray Diagnostic Results : Chest X-Ray Ordered: Yes # of Views/Limited/Complete: 1 View Indication: Other - preop EP Interpretation: Yes Interpretation: no consolidation, no effusion, no pneumothorax, no acute cardiopulmonary disease Impression: Other - low lung volumes, no acute processes Electronically Signed by: Quentin Campuzano MD Last Vital Signs Date Time Temp Pulse Resp B/P (MAP) Pulse Ox O2 Delivery O2 Flow Rate FiO2 02/09/19 22:38 99.0 16 94 Room Air Disposition: ADMITTED INPATIENT Condition: Stable Referrals: Delia Nix MD (PCP) Quentin Campuzano MD Feb 09, 2019 23:22
[2019-02-09 23:25] VITALS: BP 124/68
--- NOTE | 2019-02-09 23:25 | NUR ---
ER Nurse Ann Pt brought in by ambulance from [facility] c/o pending colonoscopy. Per EMS, pt is suspected to have a GI bleed and will need further monitoring. Pt a&ox4, VSS. Pt denies having blooding stool, last BM 1 day ago. Will continue to montior.
[2019-02-09 23:41] LABS: BASOPHILS % (AUTO) 0.8 % (0.0-2.0); HEMATOCRIT 32.8 % (37.0-47.0); HEMOGLOBIN 10.8 G/DL (12.0-16.0); LYMPHOCYTES % (AUTO) 44.8 % (20.0-45.0); MEAN CORPUSCULAR VOLUME 89 FL (80-99); MONOCYTES % (AUTO) 7.1 % (1.0-10.0); NEUTROPHILS % (AUTO) 44.3 % (45.0-75.0); PLATELET COUNT 213 K/UL (150-450); RED BLOOD COUNT 3.69 M/UL (4.20-5.40); RED CELL DISTRIBUTION WIDTH 13.5 % (11.6-14.8); WHITE BLOOD COUNT 6.3 K/UL (4.8-10.8)
[2019-02-09 23:57] LABS: ANION GAP 5 mmol/L (5-15); BLOOD UREA NITROGEN 15 mg/dL (7-18); CARBON DIOXIDE 29 MMOL/L (21-32); CHLORIDE 98 MMOL/L (98-107); CREATININE 0.7 MG/DL (0.55-1.30); POTASSIUM 4.4 MMOL/L (3.5-5.1); SODIUM 132 MMOL/L (136-145)
[2019-02-10] VITALS (7 sets, daily range): BP systolic 116–167; BP diastolic 62–89
[2019-02-10 00:01] LABS: ALANINE AMINOTRANSFERASE 17 U/L (12-78); ALBUMIN 3.4 G/DL (3.4-5.0); ALKALINE PHOSPHATASE 90 U/L (46-116); ASPARTATE AMINO TRANSFERASE 12 U/L (15-37); BILIRUBIN,TOTAL 0.2 MG/DL (0.2-1.0)
[2019-02-10 00:10] LABS: APPEARANCE,URINE CLEAR; BILIRUBIN, URINE NEGATIVE (NEGATIVE); COLOR,URINE PALE YELLOW; GLUCOSE, URINE (UA) NEGATIVE (NEGATIVE); KETONES,URINE NEGATIVE (NEGATIVE); NITRITE,URINE NEGATIVE (NEGATIVE); PH,URINE 7 (4.5-8.0); PROTEIN,URINE NEGATIVE (NEGATIVE); UROBILINOGEN,URINE NORMAL MG/DL (0.0-1.0)
[2019-02-10 00:16] LABS: LEUKOCYTE ESTERASE ,URINE 2+ (NEGATIVE)
[2019-02-10] MEDS ORDERED: cefTRIAXone 1 GM in NS 55 ML IVPB ONE (00:30)
[2019-02-10] MEDS ORDERED: Pantoprazole Inj IVP ONE (00:30)
--- NOTE | 2019-02-10 00:30 | NUR ---
ER Nurse Note: Occult blood culture not collected, MD aware. All orders completed per ERMD orders. Pt asleep, kept cleen, no signs of distress. SLIV RT hand established and infusing NS at 100cc/hr. All safety measures met; will continue to monitor.
--- NOTE | 2019-02-10 01:30 | NUR ---
ER Nurse Note: Report given to RALF [place] in tele for continuity of care. Pt left with all belongings, VSS, 2L NC, stable, asleep. Pt has redness on sacral area but skin intact.
--- NOTE | 2019-02-10 01:45 | NUR ---
NURSE NOTES: Received patient from ER. Patient alert and oriented x4, on 2L NC, no signs of respiratory distress. Bed in low position, locked, bed alarm on, call light within reach.
[2019-02-10] MEDS ORDERED: MAGOX 400400 MG ORAL (05:25)
[2019-02-10] MEDS ORDERED: FLUTICASONE PRO16 G1 NASAL (05:25)
[2019-02-10] MEDS ORDERED: LINZESS290 MCG PO (05:25)
[2019-02-10] MEDS ORDERED: KLONOPIN2 MG PO (05:25)
[2019-02-10] MEDS ORDERED: FLUTICASONE PRO16 G1 INH (05:25)
[2019-02-10] MEDS ORDERED: ACIDOPHILUS1 EAC7 PO (05:25)
[2019-02-10] MEDS ORDERED: LORAZEPAM0.5 MG ORAL (05:25)
[2019-02-10] MEDS ORDERED: guaiFENesin w/Codeine 5ml Liq ud ORAL PRN (05:45)
[2019-02-10] MEDS ORDERED: Docusate 100mg cap ORAL SCH (05:45)
[2019-02-10] MEDS: clonazePAM 0.5mg tab ORAL PRN ×2 (06:39→21:09)
[2019-02-10] MEDS ORDERED: Magic Mouth Wash 60ml (Benadryl/Mylanta/Visc Lido) ORAL PRN (07:30)
--- NOTE | 2019-02-10 08:09 | NUR ---
NURSE NOTES: Received report from Darvin/RN. Patient is asleep, lying in semi-chin's; resting comfortably. Able to make needs known. No signs of acute distress/SOB noted. No IV access at this time. Bed at lowest position and locked, brakes on, side-rails x2. Call light within reach. Will continue plan of care.
[2019-02-10] MEDS ORDERED: Levalbuterol Inh UD 1.25mg/0.5ml HHN PRN (08:15)
[2019-02-10] MEDS ORDERED: Ipratropium 0.02% Inh Soln 2.5ml UD HHN PRN (08:15)
[2019-02-10] MEDS ORDERED: Fleet's Enema 133ml RECTAL SCH (09:00)
[2019-02-10] MEDS ORDERED: Fleet's Enema 133ml RECTAL PRN (09:00)
[2019-02-10] MEDS ORDERED: Lisinopril 20mg tab ORAL SCH (09:00)
[2019-02-10] MEDS: Hyoscyamine 0.125mg tab ORAL SCH ×3 (09:03→18:20)
[2019-02-10] MEDS: Magnesium Oxide 400mg tab ORAL SCH (09:03)
[2019-02-10] MEDS: Docusate 100mg cap ORAL SCH ×2 (09:04→18:19)
[2019-02-10] MEDS: Lactobacillus-GG tablet ORAL SCH ×2 (09:04→18:19)
[2019-02-10] MEDS: Simethicone 80mg tab PO SCH ×3 (09:05→18:20)
[2019-02-10] MEDS: LORazepam 0.5mg tab ORAL SCH ×2 (09:05→18:20)
[2019-02-10] MEDS: Miralax 17gm pkt ORAL SCH (09:05)
[2019-02-10] MEDS: Multivitamin w/Minerals tab ORAL SCH (09:05)
[2019-02-10] MEDS: Montelukast 10mg tablet ORAL SCH (09:05)
[2019-02-10] MEDS: Aspirin EC 81mg tab ORAL SCH (09:05)
[2019-02-10] MEDS: Calcium Carbonate 500mg w/Vit D 200iu tab PO SCH (09:29)
[2019-02-10] MEDS: Benzonatate 100mg Perles ORAL SCH ×3 (09:30→21:06)
[2019-02-10] MEDS: Lyrica 75mg cap ORAL SCH ×2 (09:31→18:20)
[2019-02-10] MEDS: oxyCODONE 5mg IR tab ORAL PRN ×2 (09:32→18:19)
[2019-02-10] MEDS ORDERED: Benzonatate 100mg Perles ORAL SCH (10:00)
[2019-02-10] MEDS ORDERED: Calcium Carbonate 500mg w/Vit D 200iu tab PO SCH (10:00)
--- NOTE | 2019-02-10 10:44 | Diagnostic Imaging Report ---
Indication: Dyspnea Comparison: 01/18/2018 A single view chest radiograph was obtained. Findings: Interstitial opacities present with prominent vascularity and heart size. Lung volumes are low bilaterally. Surgical clips in the right axilla and mid chest noted. Bones are osteopenic. IMPRESSION: Suspected interstitial edema/CHF. Correlate clinically
--- NOTE | 2019-02-10 11:50 | GI Initial Consult Note ---
History of Present Illness General Date patient seen: Feb 10, 2019 Time patient seen: 11:46 Reason for Hospitalization: Gastrointestinal Bleed Referring physician: JACKSON OTERO Reason for Consultation: GI BLEED Present Illness HPI 78-year-old female presents with positive stool occult blood tests at home, patient has been feeling lightheaded, has been ongoing for a month, patient denies any fevers chills chest pain but she does feel some dyspnea, no abdominal pain no known aggravating or alleviating factors severity is mild, symptoms are constant, patient presents for evaluation of a possible GI bleed. GI consulted for reported positive occult blood stool. HPI as noted above. Patient seen, awake alert oriented x4 no apparent distress. No active signs or symptoms of nausea vomiting. Patient denies any coffee-ground or hematemesis, hematochezia or melena. The patient reported testing positive for blood in her stool and she is here for evaluation. Patient states that she had a colonoscopy few years back but unsure of the exact date, noted that she has a history of colonic polyps. She presents today with a hemoglobin of 10.8. Home Meds Reported Medications Lorazepam* (LORAZEPAM*) 0.5 Mg Tablet, 0.5 MG ORAL BID PRN for For Anxiety, TAB 02/10/19 Clonazepam (KLONOPIN) 2 Mg Tablet, 0.5 MG PO BID PRN for For Anxiety, TAB 02/10/19 Lactobacillus Acidophilus (Acidophilus) 1 Each Tablet, 1 EACH PO BID, TAB 02/10/19 Fluticasone Propionate* (FLUTICASONE PROPIONATE*) 16 Gm [place].susp, 1 SPRAY NASAL DAILY, EA 02/10/19 Fluticasone Propionate* (FLUTICASONE PROPIONATE*) 16 Gm [place].susp, 2 SPRAY INH DAILY, EA 02/10/19 Magnesium Oxide (MAGOX 400) 400 Mg Tablet, 200 MG ORAL DAILY, #30 TAB 0 Refills 02/10/19 Linaclotide (LINZESS) 290 Mcg Capsule, 290 MCG PO ACBREAKFAST, CAP 02/10/19 Levalbuterol Hcl (XOPENEX*) 0.63 Mg/3 Ml Vial.neb, 0.63 MG HHN Q6H for 30 Days, VIAL 01/12/19 Ipratropium [place] (ATROVENT HFA) 12.9 Gm Hfa.aer.ad, 12.9 GM IH Q6HR 01/12/19 Oxycodone Hcl Ir* (ROXICODONE IR*) 5 Mg Tablet, 5 MG ORAL Q6H PRN for For Pain, #10 TAB 0 Refills 01/12/19 [Magic Mouthwash ] No Conflict Check, 15 ML PO Q4HR 01/12/19 Amlodipine Besylate* (AMLODIPINE BESYLATE*) 10 Mg Tablet, 10 MG ORAL DAILY, TAB 01/12/19 Gabapentin* (GABAPENTIN*) 300 Mg Capsule, 300 MG ORAL THREE TIMES A DAY, CAP 0 Refills 01/12/19 Simethicone (Simethicone) 125 Mg Capsule, 125 MG PO TID, CAP 01/12/19 Hyoscyamine Sulfate (HYOSYNE) 0.125 Mg/1 Ml Drops, 0.125 MG PO TID, ML 01/12/19 Rosuvastatin Calcium* (CRESTOR*) 20 Mg Tablet, 20 MG ORAL DAILY, TAB 01/12/19 [Mucomyst] No Conflict Check, 200 MG PO PRN 01/12/19 Guaifenesin/Codeine Phos* (ROBITUSSIN AC*) 118 Ml Liquid, 20 ML ORAL Q8HR PRN for For Cough, #118 ML 0 Refills 01/12/19 Ondansetron* (ZOFRAN*) 4 Mg Tablet, 4 MG ORAL Q4HR PRN for Nausea & Vomiting, TAB 01/12/19 Benzonatate* (TESSALON PERLE*) 100 Mg Capsule, 100 MG ORAL THREE TIMES A DAY, PERLE 01/12/19 Acetaminophen* (ACETAMINOPHEN 325MG TABLET*) 325 Mg Tablet, 650 MG ORAL Q4H PRN for Pain Scale (3-5), TAB 01/12/19 Melatonin/Pyridoxine HCl (B6) (Melatonin 3 mg Tablet) 1 Each Tablet, 1 EACH PO QHS, TAB 01/12/19 [Mylanta ] No Conflict Check, 20 ML PO Q4HR 01/12/19 Na Phos,M-B/Na Phos,Di-Ba* (FLEET ENEMA*) 133 Ml Enema, 133 ML RECTAL DAILY, ML 0 Refills 01/12/19 Bisacodyl (DULCOLAX) 10 Mg Supp.rect, 10 MG RC PRN, SUPP 01/12/19 Magnesium Hydroxide* (MILK OF MAGNESIA*) 400 Mg/5 Ml Oral.susp, 30 ML ORAL DAILY , ML 01/12/19 [Bevespi Aerosphere ] No Conflict Check, 2 PUFFS BID 01/12/19 [Ranitidine ] No Conflict Check, 15 ML PO BID 01/12/19 Pregabalin* (LYRICA*) 75 Mg Capsule, 75 MG ORAL BID, CAP 01/12/19 Escitalopram Oxalate* (LEXAPRO*) 20 Mg Tablet, 20 MG ORAL DAILY, TAB 01/12/19 Calcium Carbonate/Vitamin D3 (Os-Igor 500+D3 Caplet) 1 Each Tablet, 1 EACH PO DAILY, TAB 01/12/19 Fluticasone Propionate (Flonase Allergy Relief) 9.9 Ml [place].susp, 1 SPRAYS NS DAILY 01/12/19 Polyethylene Glycol 3350* (MIRALAX*) 17 Gm Powd.pack, 17 GM ORAL DAILY, PACKET 01/12/19 [Mag Oxide ] No Conflict Check, 200 MG PO DAILY 01/12/19 Pantoprazole* (PROTONIX*) 40 Mg Tablet.dr, 40 MG ORAL DAILY, TAB 01/12/19 Dicyclomine Hcl* (DICYCLOMINE HCL*) 10 Mg Capsule, 10 MG PO EVERY 6 HOURS PRN for For Cough, CAP 01/13/18 Lorazepam* (ATIVAN*) 0.5 Mg Tablet, 0.5 MG ORAL THREE TIMES A DAY, TAB 01/13/18 Multivitamin With Minerals (MULTIVITAMINS WITH MINERALS*) 1 Each Tablet, 1 TAB ORAL DAILY, TAB 01/13/18 Fluticasone/Vilanterol (Breo Ellipta 100-25 Mcg INH) 1 Each Blst.w.dev, 1 EACH IH, EACH 01/13/18 Ferrous Sulfate* (FERROUS SULFATE*) 325 Mg Tablet, 325 MG ORAL DAILY, #30 TAB 0 Refills 01/13/18 Montelukast Sodium* (MONTELUKAST SODIUM*) 10 Mg Tablet, 10 MG ORAL DAILY, TAB 01/13/18 Aspirin Ec* (ASPIRIN EC*) 81 Mg Tablet.dr, 81 MG ORAL DAILY, TAB 02/15/17 Lisinopril (LISINOPRIL*) 20 Mg Tablet, 20 MG ORAL DAILY, TAB 02/15/17 Docusate Sodium* (COLACE*) 100 Mg Capsule, 100 MG ORAL BID, CAP 07/24/14 Lactobacillus Combination No.4 (PROBIOTIC) 1 Each Capsule, 1 EACH PO BID, CAP 07/24/14 Med list reviewed/reconciled: Yes Allergies: Coded Allergies: [place] (Unverified Allergy, Mild, upset stomach, 02/10/19) [place] (Unverified Allergy, Mild, upset stomach, 02/10/19) TETRACYCLINE (Unverified Allergy, Unknown, 07/24/14) Patient History History Provided By: Patient, Medical Record PMH Narrative Past Medical History: see triage record Reviewed Nursing Documentation: PMH: Agreed; PSxH: Agreed Nursing Documentation-PMH Past Medical History: No History, Except For Hx Cardiac Problems: Yes Hx Hypertension: Yes Hx Asthma: Yes Hx COPD: Yes Hx Diabetes: Yes Hx Cancer: Yes Hx Gastrointestinal Problems: Yes Hx Neurological Problems: No Social History: Denies: smoking, alcohol use, drug use, other Review of Systems All Other Systems: negative except mentioned in HPI Physical Exam Vital Signs Date Time Temp Pulse Resp B/P (MAP) Pulse Ox O2 Delivery O2 Flow Rate FiO2 02/09/19 22:38 99.0 16 94 Room Air 02/09/19 23:25 68 124/68 2.0 Sp02 EP Interpretation: reviewed, normal Labs Laboratory Tests Test 02/09/19 23:20 White Blood Count 6.3 K/UL (4.8-10.8) Red Blood Count 3.69 M/UL (4.20-5.40) L Hemoglobin 10.8 G/DL (12.0-16.0) L Hematocrit 32.8 % (37.0-47.0) L Mean Corpuscular Volume 89 FL (80-99) Mean Corpuscular Hemoglobin 29.2 PG (27.0-31.0) Mean Corpuscular Hemoglobin Concent 32.9 G/DL (32.0-36.0) Red Cell Distribution Width 13.5 % (11.6-14.8) Platelet Count 213 K/UL (150-450) Mean Platelet Volume 5.3 FL (6.5-10.1) L Neutrophils (%) (Auto) 44.3 % (45.0-75.0) L Lymphocytes (%) (Auto) 44.8 % (20.0-45.0) Monocytes (%) (Auto) 7.1 % (1.0-10.0) Eosinophils (%) (Auto) 3.0 % (0.0-3.0) Basophils (%) (Auto) 0.8 % (0.0-2.0) Prothrombin Time 10.4 SEC (9.30-11.50) Prothromb Time International Ratio 1.0 (0.9-1.1) Activated Partial Thromboplast Time 30 SEC (23-33) Urine Color Pale yellow Urine Appearance Clear Urine pH 7 (4.5-8.0) Urine Specific [place] 1.005 (1.005-1.035) Urine Protein Negative (NEGATIVE) Urine Glucose (UA) Negative (NEGATIVE) Urine Ketones Negative (NEGATIVE) Urine Blood 1+ (NEGATIVE) H Urine Nitrite Negative (NEGATIVE) Urine Bilirubin Negative (NEGATIVE) Urine Urobilinogen Normal MG/DL (0.0-1.0) Urine Leukocyte Esterase 2+ (NEGATIVE) H Urine RBC 0-2 /HPF (0 - 2) Urine WBC 15-20 /HPF (0 - 2) H Urine Squamous Epithelial Cells Few /LPF (NONE/OCC) Urine Bacteria Moderate /HPF (NONE) H Sodium Level 132 MMOL/L (136-145) L Potassium Level 4.4 MMOL/L (3.5-5.1) Chloride Level 98 MMOL/L (98-107) Carbon Dioxide Level 29 MMOL/L (21-32) Anion Gap 5 mmol/L (5-15) Blood Urea Nitrogen 15 mg/dL (7-18) Creatinine 0.7 MG/DL (0.55-1.30) Estimat Glomerular Filtration Rate mL/min (>60) Glucose Level 101 MG/DL (74-106) Calcium Level 9.0 MG/DL (8.5-10.1) Total Bilirubin 0.2 MG/DL (0.2-1.0) Aspartate Amino Transf (AST/SGOT) 12 U/L (15-37) L Alanine Aminotransferase (ALT/SGPT) 17 U/L (12-78) Alkaline Phosphatase 90 U/L (46-116) Total Protein 6.9 G/DL (6.4-8.2) Albumin 3.4 G/DL (3.4-5.0) Globulin 3.5 g/dL Albumin/Globulin Ratio 1.0 (1.0-2.7) Lipase 195 U/L (73-393) General Appearance: well appearing, no apparent distress, alert Head: normocephalic EENT: PERRL/EOMI, normal ENT inspection Neck: supple Respiratory: normal breath sounds, no respiratory distress Cardiovascular: normal rate Gastrointestinal: normal inspection, non tender, soft, normal bowel sounds, non -distended Rectal: deferred Genitourinary: no CVA tenderness Musculoskeletal: normal inspection, back normal Neurologic: normal inspection, alert, oriented x3, responsive Psychiatric: normal inspection, judgement/insight normal, memory normal Skin: normal inspection, normal color, no rash, warm/dry, palpation normal, well hydrated Lymphatic: normal inspection, no adenopathy Current Medications Current Medications Medications (Trade) Dose Ordered Sig/Wilner Route PRN Reason Start Time Stop Time Status Last Admin Dose Admin Acetaminophen (Tylenol) 650 mg Q4H PRN ORAL Pain Scale (3-5) 02/10/19 05:45 03/12/19 05:44 Al Hydroxide/Mg Hydroxide (Mylanta) 30 ml Q4H PRN ORAL heartburn 02/10/19 05:45 03/12/19 05:44 Amlodipine Besylate (Norvasc) 10 mg DAILY ORAL 02/10/19 09:00 03/12/19 08:59 02/10/19 09:02 Aspirin (Ecotrin) 81 mg DAILY ORAL 02/10/19 09:00 03/12/19 08:59 02/10/19 09:05 Atorvastatin Calcium (Lipitor) 40 mg BEDTIME ORAL 02/10/19 21:00 03/12/19 20:59 Benzonatate (Tessalon Perles) 100 mg Q8HR ORAL 02/10/19 10:00 03/12/19 09:59 02/10/19 09:30 Bisacodyl (Dulcolax) 10 mg DAILYPRN PRN RECTAL Constipation 02/10/19 08:30 03/12/19 05:44 Calcium/Vitamin D (OsCal D) 1 tab DAILY@1000 PO 02/10/19 10:00 03/12/19 09:59 02/10/19 09:29 Clonazepam (KlonoPIN) 0.5 mg BID PRN ORAL For Anxiety 02/10/19 06:15 02/17/19 06:14 02/10/19 06:39 Dicyclomine HCl (Bentyl) 10 mg Q6H PRN ORAL STOMACH CRAMPS 02/10/19 05:45 03/12/19 05:44 Docusate Sodium (Colace) 100 mg BID ORAL 02/10/19 09:00 03/12/19 05:44 02/10/19 09:04 Escitalopram Oxalate (Lexapro) 20 mg DAILY ORAL 02/10/19 09:00 03/12/19 08:59 02/10/19 09:01 Famotidine (Pepcid) 20 mg QHS ORAL 02/10/19 21:00 03/12/19 20:59 Ferrous Sulfate (Feosol) 325 mg DAILY@0800 ORAL 02/10/19 09:00 03/12/19 07:59 02/10/19 09:29 Gabapentin (Neurontin) 300 mg Q8HR ORAL 02/10/19 14:00 03/12/19 13:59 Guaifenesin/ Codeine Phosphate (Robitussin with codeine) 10 ml Q8H PRN ORAL For Cough 02/10/19 05:45 03/12/19 05:44 Hyoscyamine Sulfate (Levsin) 0.125 mg TID ORAL 02/10/19 09:00 03/12/19 08:59 02/10/19 09:03 Ipratropium [place] (Atrovent) 500 mcg Q6H PRN HHN Shortness of Breath 02/10/19 08:15 02/15/19 08:14 Lactobacillus Acidophilus (Culturelle) 1 tab BID ORAL 02/10/19 09:00 03/12/19 08:59 02/10/19 09:04 Levalbuterol HCl (Xopenex) 0.63 mg Q6H PRN HHN Shortness of Breath 02/10/19 08:15 02/15/19 08:14 Lisinopril (Prinivil) 20 mg DAILY ORAL 02/10/19 09:00 03/12/19 08:59 02/10/19 09:06 Lorazepam (Ativan) 0.5 mg BID ORAL 02/10/19 09:00 02/17/19 08:59 02/10/19 09:05 Magnesium Oxide (Mag-Ox 400mg) 200 mg DAILY ORAL 02/10/19 09:00 03/12/19 08:59 02/10/19 09:03 Montelukast Sodium (Singulair) 10 mg DAILY ORAL 02/10/19 09:00 03/12/19 08:59 02/10/19 09:05 Multivitamins Therapeutic (Therapeutic Multivitamin) 1 ea DAILY ORAL 02/10/19 09:00 03/12/19 08:59 02/10/19 09:05 Non-Formulary Medication (Non-Formulary Med) 1 ea DAILY ORAL 02/10/19 09:00 03/12/19 08:59 UNV Non-Formulary Medication (Non-Formulary Med) 1 ea DAILY ORAL 02/10/19 09:00 03/12/19 08:59 UNV Non-Formulary Medication (Non-Formulary Med) 1 ea QID PRN ORAL oral pain 02/10/19 05:45 03/12/19 05:44 UNV Ondansetron HCl (Zofran) 4 mg Q4H PRN ORAL Nausea & Vomiting 02/10/19 05:45 03/12/19 05:44 Oxycodone HCl (Roxicodone) 5 mg Q6H PRN ORAL For Pain 02/10/19 05:45 02/17/19 05:44 02/10/19 09:32 Pantoprazole (Protonix) 40 mg DAILY ORAL 02/10/19 09:00 03/12/19 08:59 02/10/19 09:02 Polyethylene Glycol (Miralax) 17 gm DAILY ORAL 02/10/19 09:00 03/12/19 08:59 02/10/19 09:05 Pregabalin (Lyrica) 75 mg Q12HR@0600,1800 ORAL 02/10/19 09:00 03/12/19 08:59 02/10/19 09:31 Simethicone (Mylicon) 80 mg TID PO 02/10/19 09:00 03/12/19 08:59 02/10/19 09:05 Sodium Chloride 1,000 ml @ 75 mls/hr [id number] IV 02/10/19 07:00 03/12/19 06:59 Sodium Phosphate (Fleet's Sodium Phosl Enema) 133 ml DAILYPRN PRN RECTAL Constipation 02/10/19 09:00 03/12/19 08:59 GI: Plan Problems: (1) Anemia (2) GI bleed (3) Constipation Plan This is a 78-year-old female patient who presents with positive occult blood stool to evaluate for possible GI bleed. Plan for EGD and colonoscopy tomorrow. Maintain clear liquid diet, n.p.o. at midnight PPI twice a day Monitor H&H, PRN transfusions Zofran as needed We will follow with additional recommendations postprocedure Discussed with Dr. Arshad. Thank you for this patient referral, we will follow. The patient was seen and examined at bedside and all new and available data was reviewed in the patients chart. I agree with the above findings, impression and plan. (Patient seen earlier today. Signature stamp does not reflect patient encounter time.). - MD Nina GomezArianna-Giacomo OAM Feb 10, 2019 11:50
--- NOTE | 2019-02-10 12:12 | NUR ---
CASE MANGER REVIEW 78 YO FEMALE BIBA FROM [facility] TO ER CC POSSIBLE GI BLEED SI GASTROINTESTINAL BLEEDING T- 98.9, RR 16, HR 68, BP- 124/68 RBC- 3.69, HGB.- 10.8, HCT 32.8 IS NS 1000 IV BOLUS STOOL FOR OCCULT BLOOD- PENDING ADMITTED TO TELE STATUS TELE STATUS
[2019-02-10] MEDS ORDERED: HydrALAZINE 25mg tab ORAL PRN (15:30)
--- NOTE | 2019-02-10 15:49 | History and Physical ---
History of Present Illness General Date patient seen: Feb 10, 2019 Reason for Hospitalization: Gastrointestinal Bleed Present Illness HPI 78-year-old female with PMHx of COPD on 2L O2, HTN, diastolic CHF, chronic, osteoporosis, IBS-C, DDD who presents to the hospital after being referred by her [place] Dr. Arshad for a positive occult blood in the setting of chronic abdominal pain and hemoglobin of 10.8. Patient a poor historian. Does not know if she has had bright red blood or melena. Denies nausea, vomiting , fever or chills. She has been feeling lightheaded upon standing which is ongoing for the past month. Patient being admitted for evaluation of possible GI bleed. Patient is at her baseline breathing status on home O2 of 2L. She denies any recent exacerbations, cough, SOB, fever or chills. She has a history of diastolic heart failure with EF of 60% and moderate LVH based on an echo 2017. She denies any worsening orthopnea, LE edema or dry cough. She denies any history of SC, stent or angiogram. She has no chest pain at rest or upon movement from bed to her wheelchair. She is normally in either a bed or a wheelchair. She has chronic low back pain and spinal stenosis which limits her mobility. She has been at [facility] for rehab and is progressing. Patient also endorses dysuria and urinary frequency x 1 month. Constant, 4/10 during urination. No suprapubic pain. no fevers, chills, nausea, vomiting or CVA tenderness bilaterally. UA positive in the ER. SurgicalHx: Colonoscopy 2006, Breast bx 1999 Family history: Father: "stomach problems", Sister: IBS-D SocialHx: Tobacco: quit 10 years ago, 54 pack years EtOH: none drugs: none Allergies: Coded Allergies: [place] (Unverified Allergy, Mild, upset stomach, 02/10/19) TOMATO (Unverified Allergy, Mild, upset stomach, 02/10/19) TETRACYCLINE (Unverified Allergy, Unknown, 07/24/14) Medication History Scheduled Amlodipine Besylate* (Amlodipine Besylate*), 10 MG ORAL DAILY, (Reported) Aspirin Ec* (Aspirin Ec*), 81 MG ORAL DAILY, (Reported) Benzonatate* (Tessalon Perle*), 100 MG ORAL THREE TIMES A DAY, (Reported) Bisacodyl (Dulcolax), 10 MG RC PRN, (Reported) Calcium Carbonate/Vitamin D3 (Os-Igor 500+D3 Caplet), 1 EACH PO DAILY, (Reported) Docusate Sodium* (Colace*), 100 MG ORAL BID, (Reported) Escitalopram Oxalate* (Lexapro*), 20 MG ORAL DAILY, (Reported) Ferrous Sulfate* (Ferrous Sulfate*), 325 MG ORAL DAILY, (Reported) Fluticasone Propionate (Flonase Allergy Relief), 1 SPRAYS NS DAILY, (Reported) Fluticasone Propionate* (Fluticasone Propionate*), 2 SPRAY INH DAILY, (Reported) Fluticasone Propionate* (Fluticasone Propionate*), 1 SPRAY NASAL DAILY, ( Reported) Gabapentin* (Gabapentin*), 300 MG ORAL THREE TIMES A DAY, (Reported) Hyoscyamine Sulfate (Hyosyne), 0.125 MG PO TID, (Reported) Ipratropium [place] (Atrovent Hfa), 12.9 GM IH Q6HR, (Reported) Lactobacillus Acidophilus (Acidophilus), 1 EACH PO BID, (Reported) Lactobacillus Combination No.4 (Probiotic), 1 EACH PO BID, (Reported) Levalbuterol Hcl (Xopenex*), 0.63 MG HHN Q6H, (Reported) Linaclotide (Linzess), 290 MCG PO ACBREAKFAST, (Reported) Lisinopril (Lisinopril*), 20 MG ORAL DAILY, (Reported) Lorazepam* (Ativan*), 0.5 MG ORAL THREE TIMES A DAY, (Reported) Magnesium Hydroxide* (Milk Of Magnesia*), 30 ML ORAL DAILY, (Reported) Magnesium Oxide (Magox 400), 200 MG ORAL DAILY, (Reported) Melatonin/Pyridoxine HCl (B6) (Melatonin 3 mg Tablet), 1 EACH PO QHS, (Reported) Montelukast Sodium* (Montelukast Sodium*), 10 MG ORAL DAILY, (Reported) Multivitamin With Minerals (Multivitamins With Minerals*), 1 TAB ORAL DAILY, ( Reported) Na Phos,M-B/Na Phos,Di-Ba* (Fleet Enema*), 133 ML RECTAL DAILY, (Reported) Pantoprazole* (Protonix*), 40 MG ORAL DAILY, (Reported) Polyethylene Glycol 3350* (Miralax*), 17 GM ORAL DAILY, (Reported) Pregabalin* (Lyrica*), 75 MG ORAL BID, (Reported) Rosuvastatin Calcium* (Crestor*), 20 MG ORAL DAILY, (Reported) Simethicone (Simethicone), 125 MG PO TID, (Reported) [Bevespi Aerosphere ], 2 PUFFS BID, (Reported) [Mag Oxide ], 200 MG PO DAILY, (Reported) [Magic Mouthwash ], 15 ML PO Q4HR, (Reported) [Mucomyst], 200 MG PO PRN, (Reported) [Mylanta ], 20 ML PO Q4HR, (Reported) [Ranitidine ], 15 ML PO BID, (Reported) Scheduled PRN Acetaminophen* (Acetaminophen 325MG Tablet*), 650 MG ORAL Q4H PRN for Pain Scale (3-5), (Reported) Clonazepam (Klonopin), 0.5 MG PO BID PRN for For Anxiety, (Reported) Dicyclomine Hcl* (Dicyclomine Hcl*), 10 MG PO EVERY 6 HOURS PRN for For Cough, ( Reported) Guaifenesin/Codeine Phos* (Robitussin Ac*), 20 ML ORAL Q8HR PRN for For Cough, ( Reported) Lorazepam* (Lorazepam*), 0.5 MG ORAL BID PRN for For Anxiety, (Reported) Ondansetron* (Zofran*), 4 MG ORAL Q4HR PRN for Nausea & Vomiting, (Reported) Oxycodone Hcl Ir* (Roxicodone Ir*), 5 MG ORAL Q6H PRN for For Pain, (Reported) Miscellaneous Medications Fluticasone/Vilanterol (Breo Ellipta 100-25 Mcg INH), 1 EACH IH, (Reported) Patient History Healthcare decision maker Resuscitation status DNR/DNI while in the hospital. Full Code for the colonoscopy Advanced Directive on File No Review of Systems Constitutional: Denies: chills, sweats, fever, malaise, weakness, other Eye: Denies: eye pain, blurred vision, tearing, double vision, nose pain, nose congestion, acuity changes, discharge, other ENT: Denies: ear pain, ear discharge, nose pain, nose congestion, throat pain, throat swelling, mouth pain, hearing loss, nasal discharge, other Respiratory: Denies: cough, orthopnea, shortness of breath, stridor, wheezing, AVILA, sputum, other Cardiovascular: Denies: chest pain, edema, palpitations, syncope, PND, other Gastrointestinal: Reports: constipation; Denies: abdominal pain, diarrhea, nausea, vomiting, melena, hematemesis, other Genitourinary: Denies: discharge, dysuria, frequency, hematuria, pain, retention, incontinence, urgency, vag bleed/dc, other Musculoskeletal: Denies: back pain, gout, joint pain, joint swelling, muscle pain, muscle stiffness, other Skin: Denies: rash, change in color, change in hair/nails, dryness, lesions, other Psychiatric: Denies: prior hx, anxiety, depressed feelings, emotional problems , SI, HI, hallucinations, other Neurological: Denies: headache, numbness, paresthesia, seizure, tingling, tremors, focal weakness, syncope, dizziness, other Endocrine: Denies: excessive sweating, flushing, intolerance to temperature, increased thirst, increased urine, unexplained weight loss, other Hematologic/Lymphatic: Denies: anemia, blood clots, easy bleeding, easy bruising, swollen glands, diathesis, other Physical Exam General Appearance: WD/WN, no apparent distress, alert Lines, tubes and drains: peripheral HEENT: normocephalic, atraumatic, PERRL, EOMI, no JVD Neck: non-tender, normal alignment, supple Respiratory/Chest: chest wall non-tender, lungs clear, normal breath sounds, no respiratory distress Cardiovascular/Chest: normal peripheral pulses, normal rate, regular rhythm, no gallop/murmur, no JVD Abdomen: normal bowel sounds, soft, other - bloated, but soft Extremities: normal range of motion, non-tender, normal inspection Skin Exam: normal pigmentation, warm/dry Neurologic: surgery scheduler II-XII grossly normal, no motor/sensory deficits, alert, oriented x 3, responsive, normal mood/affect Musculoskeletal: normal muscle bulk, no effusion, atrophy Last 24 Hour Vital Signs Date Time Temp Pulse Resp B/P (MAP) Pulse Ox O2 Delivery O2 Flow Rate FiO2 02/10/19 12:00 98.1 78 20 132/62 (85) 97 02/10/19 09:06 147/71 02/10/19 09:02 69 147/71 02/10/19 08:00 77 02/10/19 08:00 98.0 69 18 147/71 (96) 100 02/10/19 04:00 76 02/10/19 04:00 97.8 78 18 167/89 (115) 97 02/10/19 02:00 97.3 74 16 118/82 (94) 94 02/10/19 02:00 70 02/10/19 02:00 Nasal Cannula 2.0 02/10/19 01:20 98.7 66 16 116/72 100 Nasal Cannula 2.0 02/10/19 01:20 98.7 66 16 116/72 100 Nasal Cannula 2.0 02/09/19 23:25 68 15 Room Air 02/09/19 23:25 99.0 68 15 124/68 100 Nasal Cannula 2.0 02/09/19 22:38 99.0 16 94 Room Air Intake and Output 02/09/19 02/10/19 19:00 07:00 Intake Total 2000 ml Balance 2000 ml Intake IV Total 2000 ml # Voids 2 Laboratory Tests Test 02/09/19 23:20 White Blood Count 6.3 K/UL (4.8-10.8) Red Blood Count 3.69 M/UL (4.20-5.40) L Hemoglobin 10.8 G/DL (12.0-16.0) L Hematocrit 32.8 % (37.0-47.0) L Mean Corpuscular Volume 89 FL (80-99) Mean Corpuscular Hemoglobin 29.2 PG (27.0-31.0) Mean Corpuscular Hemoglobin Concent 32.9 G/DL (32.0-36.0) Red Cell Distribution Width 13.5 % (11.6-14.8) Platelet Count 213 K/UL (150-450) Mean Platelet Volume 5.3 FL (6.5-10.1) L Neutrophils (%) (Auto) 44.3 % (45.0-75.0) L Lymphocytes (%) (Auto) 44.8 % (20.0-45.0) Monocytes (%) (Auto) 7.1 % (1.0-10.0) Eosinophils (%) (Auto) 3.0 % (0.0-3.0) Basophils (%) (Auto) 0.8 % (0.0-2.0) Prothrombin Time 10.4 SEC (9.30-11.50) Prothromb Time International Ratio 1.0 (0.9-1.1) Activated Partial Thromboplast Time 30 SEC (23-33) Urine Color Pale yellow Urine Appearance Clear Urine pH 7 (4.5-8.0) Urine Specific [place] 1.005 (1.005-1.035) Urine Protein Negative (NEGATIVE) Urine Glucose (UA) Negative (NEGATIVE) Urine Ketones Negative (NEGATIVE) Urine Blood 1+ (NEGATIVE) H Urine Nitrite Negative (NEGATIVE) Urine Bilirubin Negative (NEGATIVE) Urine Urobilinogen Normal MG/DL (0.0-1.0) Urine Leukocyte Esterase 2+ (NEGATIVE) H Urine RBC 0-2 /HPF (0 - 2) Urine WBC 15-20 /HPF (0 - 2) H Urine Squamous Epithelial Cells Few /LPF (NONE/OCC) Urine Bacteria Moderate /HPF (NONE) H Sodium Level 132 MMOL/L (136-145) L Potassium Level 4.4 MMOL/L (3.5-5.1) Chloride Level 98 MMOL/L (98-107) Carbon Dioxide Level 29 MMOL/L (21-32) Anion Gap 5 mmol/L (5-15) Blood Urea Nitrogen 15 mg/dL (7-18) Creatinine 0.7 MG/DL (0.55-1.30) Estimat Glomerular Filtration Rate mL/min (>60) Glucose Level 101 MG/DL (74-106) Calcium Level 9.0 MG/DL (8.5-10.1) Total Bilirubin 0.2 MG/DL (0.2-1.0) Aspartate Amino Transf (AST/SGOT) 12 U/L (15-37) L Alanine Aminotransferase (ALT/SGPT) 17 U/L (12-78) Alkaline Phosphatase 90 U/L (46-116) Total Protein 6.9 G/DL (6.4-8.2) Albumin 3.4 G/DL (3.4-5.0) Globulin 3.5 g/dL Albumin/Globulin Ratio 1.0 (1.0-2.7) Lipase 195 U/L (73-393) Microbiology Date/Time Source Procedure Growth Status 02/10/19 01:48 Rectum Received Height (Feet): 4 Height (Inches): 9.00 Weight (Pounds): 114 Medications Current Medications Medications (Trade) Dose Ordered Sig/Wilner Route PRN Reason Start Time Stop Time Status Last Admin Dose Admin Acetaminophen (Tylenol) 650 mg Q4H PRN ORAL Pain Scale (3-5) 02/10/19 05:45 03/12/19 05:44 02/10/19 13:51 Al Hydroxide/Mg Hydroxide (Mylanta) 30 ml Q4H PRN ORAL heartburn 02/10/19 05:45 03/12/19 05:44 Amlodipine Besylate (Norvasc) 10 mg DAILY ORAL 02/10/19 09:00 03/12/19 08:59 02/10/19 09:02 Aspirin (Ecotrin) 81 mg DAILY ORAL 02/10/19 09:00 03/12/19 08:59 02/10/19 09:05 Atorvastatin Calcium (Lipitor) 40 mg BEDTIME ORAL 02/10/19 21:00 03/12/19 20:59 Benzonatate (Tessalon Perles) 100 mg Q8HR ORAL 02/10/19 10:00 03/12/19 09:59 02/10/19 13:50 Bisacodyl (Dulcolax) 10 mg DAILYPRN PRN RECTAL Constipation 02/10/19 08:30 03/12/19 05:44 Bisacodyl (Dulcolax) 10 mg ONCE ORAL 02/10/19 16:00 02/10/19 18:00 Calcium/Vitamin D (OsCal D) 1 tab DAILY@1000 PO 02/10/19 10:00 03/12/19 09:59 02/10/19 09:29 Clonazepam (KlonoPIN) 0.5 mg BID PRN ORAL For Anxiety 02/10/19 06:15 02/17/19 06:14 02/10/19 06:39 Dicyclomine HCl (Bentyl) 10 mg Q6H PRN ORAL STOMACH CRAMPS 02/10/19 05:45 03/12/19 05:44 Docusate Sodium (Colace) 100 mg BID ORAL 02/10/19 09:00 03/12/19 05:44 02/10/19 09:04 Escitalopram Oxalate (Lexapro) 20 mg DAILY ORAL 02/10/19 09:00 03/12/19 08:59 02/10/19 09:01 Famotidine (Pepcid) 20 mg QHS ORAL 02/10/19 21:00 03/12/19 20:59 Ferrous Sulfate (Feosol) 325 mg DAILY@0800 ORAL 02/10/19 09:00 03/12/19 07:59 02/10/19 09:29 Gabapentin (Neurontin) 300 mg Q8HR ORAL 02/10/19 14:00 03/12/19 13:59 02/10/19 13:50 Guaifenesin/ Codeine Phosphate (Robitussin with codeine) 10 ml Q8H PRN ORAL For Cough 02/10/19 05:45 03/12/19 05:44 Hyoscyamine Sulfate (Levsin) 0.125 mg TID ORAL 02/10/19 09:00 03/12/19 08:59 02/10/19 13:50 Ipratropium [place] (Atrovent) 500 mcg Q6H PRN HHN Shortness of Breath 02/10/19 08:15 02/15/19 08:14 Lactobacillus Acidophilus (Culturelle) 1 tab BID ORAL 02/10/19 09:00 03/12/19 08:59 02/10/19 09:04 Levalbuterol HCl (Xopenex) 0.63 mg Q6H PRN HHN Shortness of Breath 02/10/19 08:15 02/15/19 08:14 Lisinopril (Prinivil) 20 mg DAILY ORAL 02/10/19 09:00 03/12/19 08:59 02/10/19 09:06 Lorazepam (Ativan) 0.5 mg BID ORAL 02/10/19 09:00 02/17/19 08:59 02/10/19 09:05 Magnesium Oxide (Mag-Ox 400mg) 200 mg DAILY ORAL 02/10/19 09:00 03/12/19 08:59 02/10/19 09:03 Montelukast Sodium (Singulair) 10 mg DAILY ORAL 02/10/19 09:00 03/12/19 08:59 02/10/19 09:05 Multivitamins Therapeutic (Therapeutic Multivitamin) 1 ea DAILY ORAL 02/10/19 09:00 03/12/19 08:59 02/10/19 09:05 Non-Formulary Medication (Non-Formulary Med) 1 ea DAILY ORAL 02/10/19 09:00 03/12/19 08:59 UNV Non-Formulary Medication (Non-Formulary Med) 1 ea DAILY ORAL 02/10/19 09:00 03/12/19 08:59 UNV Non-Formulary Medication (Non-Formulary Med) 1 ea QID PRN ORAL oral pain 02/10/19 05:45 03/12/19 05:44 UNV Ondansetron HCl (Zofran) 4 mg Q4H PRN ORAL Nausea & Vomiting 02/10/19 05:45 03/12/19 05:44 Oxycodone HCl (Roxicodone) 5 mg Q6H PRN ORAL For Pain 02/10/19 05:45 02/17/19 05:44 02/10/19 09:32 Pantoprazole (Protonix) 40 mg DAILY ORAL 02/10/19 09:00 03/12/19 08:59 02/10/19 09:02 Polyethylene Glycol (Miralax) 17 gm DAILY ORAL 02/10/19 09:00 03/12/19 08:59 02/10/19 09:05 Polyethylene Glycol/ Electrolytes (Nulytely) 4,000 ml ONCE ONCE ORAL 02/10/19 16:00 02/10/19 16:01 Pregabalin (Lyrica) 75 mg Q12HR@0600,1800 ORAL 02/10/19 09:00 03/12/19 08:59 02/10/19 09:31 Simethicone (Mylicon) 80 mg TID PO 02/10/19 09:00 03/12/19 08:59 02/10/19 13:50 Sodium Chloride 1,000 ml @ 75 mls/hr [id number] IV 02/10/19 07:00 03/12/19 06:59 Sodium Phosphate (Fleet's Sodium Phosl Enema) 133 ml DAILYPRN PRN RECTAL Constipation 02/10/19 09:00 03/12/19 08:59 Assessment/Plan Problem List: (1) GI bleed ICD Codes: K92.2 - Gastrointestinal hemorrhage, unspecified SNOMED: 09367780 Qualifiers: Qualified Codes: K92.2 - Gastrointestinal hemorrhage, unspecified (2) Chronic respiratory failure with hypoxia ICD Codes: J96.11 - Chronic respiratory failure with hypoxia SNOMED: 737357804 (3) COPD (chronic obstructive pulmonary disease) ICD Codes: J44.9 - Chronic obstructive pulmonary disease, unspecified SNOMED: 34518640 (4) Anxiety ICD Codes: F41.9 - Anxiety disorder, unspecified SNOMED: 74275273 (5) Osteoporosis ICD Codes: M81.0 - Age-related osteoporosis without current pathological fracture SNOMED: 87447024 (6) Lumbar radiculopathy ICD Codes: M54.16 - Lumbar radiculopathy SNOMED: 963845504 (7) Hypertension ICD Codes: I10 - Essential (primary) hypertension SNOMED: 95220420 (8) Diastolic CHF ICD Codes: I50.30 - Unspecified diastolic (congestive) heart failure SNOMED: 65035276, 063217210 Assessment/Plan: 78-year-old female with PMHx of COPD on 2L O2, HTN, diastolic CHF, chronic, osteoporosis, IBS-C, DDD who presents to the hospital after being referred by her [place] Dr. Arshad for a positive occult blood in the setting of chronic abdominal pain and hemoglobin of 10.8. Patient being admitted for evaluation of possible GI bleed. #Rule out GI bleed. Positive occult blood as outpatient. Hemoglobin 10.8. Chronic abdominal pain. History of prior colonoscopy with poor prep per patient. Hemodynamically unstable. Unable to perform prep at facility. # normocytic anemia, rule out acute vs. chronic. No recent hemoglobin values to compare. - admit to med surgery - GI consult: Dr. Arshad, [facility]. Appreciate recs: Clear liquid diet, PPI, NPO at midnight for colonscopy. Prep with golytley tonight. - CBC Q12hr - transfuse for hemoglobin <7 - protonix 80mg IV x 1 - PPI - D/w [facility]. Per GI no pulmonary or cardiac clearance needed at this time. Patient denies any recent COPD exacerbations. At baseline home O2. No history of SC or CAD/stents. - Discussed at length code status. 33 minutes. Patient would like to remain DNR/ DNI while in the hospital but would like to change to Full Code for the colonoscopy procedure. #Acute cystitis - follow up urine culture - Rocephin 1gm IV daily #COPD on home O2, not in exacerbation. - titrate to keep SpO2 >90% - Duo-Nebs Q6hr PRN SOB/Wheezing - continue home singulair #Diastolic CHF, chronic, compensated - not in exacerbation - Blood pressure control - not on home lasix. Will monitor fluid status. Euvolemic on exam today - avoid excessive fluids during colonoscopy #HTN, controlled - hold NORMA-I on morning of colonoscopy - Continue amlodipine 10mg PO daily - Hydralazine 25mg PO Q6hr PRN for SBP >160 #Hyperlipidemia - Atorvastatin 40mg Po daily while in the hospital (home is crestor 20mg, not available in hospital) #IBS-C #fibromyalgia #GERD - continue lyrica 75mg PO BID - continue Lexapro 20mg Po daily - continue Colace 100mg Po BID - continue simethecone 125mg PO TID - PPI as above #Goals of care - Discussed at length code status. 33 minutes. Patient would like to remain DNR/ DNI while in the hospital but would be Ok with change to Full Code for the colonoscopy procedure. FENPPx Fluids: none, monitoring fluid status. Currently Euvolemic Diet: Cardiac DVTPPx: Heparin SBQ GI PPX: PPI as above PT/OT: pending Code status: DNR/DNI, full code for procedure Dispo: Back to SNF after colonoscopy and if hemoglobin stable. D/w patient, RN, and gastroenterology team. 72 minutes spent during this encounter. >50% spent on counseling and care coordination with nursing and patient. An additional 33 minutes spent on advanced care planning as described above. Neto Hartmann D.O. Feb 10, 2019 15:49
[2019-02-10] MEDS ORDERED: Bisacodyl EC 5mg tab ORAL SCH (16:00)
[2019-02-10] MEDS ORDERED: Nulytely 4L ORAL ONE (16:00)
[2019-02-10] MEDS ORDERED: MULTIVITAMINS1 EA14 PO (17:53)
[2019-02-10] MEDS ORDERED: IPRATROPIU0.2 MG/1 M HHN (17:53)
[2019-02-10] MEDS ORDERED: MELATONIN3 MG ORAL (17:53)
[2019-02-10] MEDS ORDERED: KLONOPIN0.5 MG ORAL (18:12)
[2019-02-10] MEDS ORDERED: ACETYLCYST200 MG/1 M HHN (18:12)
[2019-02-10] MEDS ORDERED: RANITIDINE15 MG/1 ML PO (18:12)
[2019-02-10] MEDS ORDERED: LEVSIN-SL0.125 MG SL (18:12)
[2019-02-10] MEDS ORDERED: FLOVENT2 PUFFS INH (18:16)
[2019-02-10] MEDS ORDERED: DICYCLOMINE HCL10 MG ORAL (18:18)
[2019-02-10] MEDS: Dicyclomine 10mg Cap ORAL PRN (18:20)
--- NOTE | 2019-02-10 19:05 | NUR ---
HAND-OFF: Report given to Darvin, Patient is in stable condition. Endorsed plan of care.
--- NOTE | 2019-02-10 19:47 | NUR ---
NURSE NOTES: Received patient from Roslyn RN. Patient in bed, on 2L NC, no s/s of respiratory distress. Bed in low position, locked, bed alarm on, call light within reach. Alert and oriented x4, patient verbalized understanding of NPO status after midnight. Right hand 22 gauge IV intact, patent, with NS infusing at 75ml/hr. Patient undergoing bowel prep for EGD and colonoscopy and understands she is to drink go lytely 240 ml po every [address] Nix's answering service requesting order clarification on code status and lab draw for 1999, patient has AM lab draw ordered already.
--- NOTE | 2019-02-10 19:55 | NUR ---
NURSE NOTES: Patient refused to have lab draw at this time, patient will have the same lab done in AM.
[2019-02-10] MEDS: Atorvastatin 20mg tab ORAL SCH (21:03)
--- NOTE | 2019-02-10 21:20 | NUR ---
NURSE NOTES: Patient started golytely this afternoon. Still no response. Requested a suppository. Dulcolax supp 10mg MN administered.
[2019-02-10] MEDS ORDERED: cefTRIAXone 1 GM in D5W 55 ML IVPB SCH (22:00)
--- NOTE | 2019-02-10 22:00 | NUR ---
NURSE NOTES: Received call from Jean Paul John and obtained order to change code status to full code.
[2019-02-11] VITALS (9 sets, daily range): BP systolic 92–137; BP diastolic 56–77
[2019-02-11] MEDS: Dicyclomine 10mg Cap ORAL PRN ×2 (01:03→06:58)
[2019-02-11] MEDS: oxyCODONE 5mg IR tab ORAL PRN ×3 (01:04→16:03)
[2019-02-11 04:55] LABS: BASOPHILS % (AUTO) 0.4 % (0.0-2.0); EOSINOPHILS % (AUTO) 1.2 % (0.0-3.0); HEMATOCRIT 34.3 % (37.0-47.0); HEMOGLOBIN 11.3 G/DL (12.0-16.0); LYMPHOCYTES % (AUTO) 13.7 % (20.0-45.0); MEAN CORPUSCULAR VOLUME 89 FL (80-99); MONOCYTES % (AUTO) 3.7 % (1.0-10.0); PLATELET COUNT 200 K/UL (150-450); RED BLOOD COUNT 3.84 M/UL (4.20-5.40); RED CELL DISTRIBUTION WIDTH 13.7 % (11.6-14.8); WHITE BLOOD COUNT 14.1 K/UL (4.8-10.8)
[2019-02-11 05:11] LABS: ANION GAP 6 mmol/L (5-15); BLOOD UREA NITROGEN 11 mg/dL (7-18); CALCIUM 8.8 MG/DL (8.5-10.1); CARBON DIOXIDE 28 MMOL/L (21-32); CHLORIDE 101 MMOL/L (98-107); CREATININE 0.5 MG/DL (0.55-1.30); POTASSIUM 3.5 MMOL/L (3.5-5.1); SODIUM 135 MMOL/L (136-145)
[2019-02-11] MEDS: Lyrica 75mg cap ORAL SCH ×2 (06:20→17:43)
[2019-02-11] MEDS: Benzonatate 100mg Perles ORAL SCH ×2 (06:21→14:06)
--- NOTE | 2019-02-11 07:53 | NUR ---
NURSE NOTES: Patient received from Darvin ARAMBULA. Patient stable sleeping in bed. IV fluids infusing. Side rails upx2, bed low and locked in lowest position, call light within reach. Will continue to monitor.
[2019-02-11] MEDS ORDERED: LR 1000ml 1,000 ML IVLG SCH (08:36)
--- NOTE | 2019-02-11 08:36 | Anethesia Preoperative Eval ---
Anesthesia Pre-op PMH/ROS General Date of Evaluation: Feb 11, 2019 Anesthesiologist: Royce ASA Score: ASA 3 Mallampati Score Class I : Soft palate, uvula, fauces, pillars visible Class II: Soft palate, uvula, fauces visible Class III: Soft palate, base of uvula visible Class IV: Only hard plate visible Mallampati Classification: Class II Surgeon: Pavithra Diagnosis: GI bleed Surgical Procedure: EGd and colonoscopy Anesthesia History: none Social History: smoking - quit 9 years ago Family History: no anesthesia problems Allergies: Coded Allergies: [place] (Unverified Allergy, Mild, upset stomach, 02/10/19) TOMATO (Unverified Allergy, Mild, upset stomach, 02/10/19) TETRACYCLINE (Unverified Allergy, Unknown, 07/24/14) Medications: see eMAR Patient NPO?: Yes NPO Date: Feb 10, 2019 NPO Time: 22:00 Past Medical History Cardiovascular: Reports: HTN, other - CHF; Denies: CAD, OR, valve dz, arrhythmia Pulmonary: Reports: asthma, COPD; Denies: BIJAL, other Gastrointestinal/Genitourinary: Reports: GERD - gastritis/IBS; Denies: CRI, ESRD, other Neurologic/Psychiatric: Reports: depression/anxiety, other - fibromyalgia; Denies: dementia, CVA, TIA Endocrine: Denies: DM, hypothyroidism, steroids, other HEENT: Denies: cataract (L), cataract (R), glaucoma, AKIAK (L), AKIAK (R), other Hematology/Immune: Reports: anemia, other - right breast Cancer; Denies: DVT, bleeding disorder Musculoskeletal/Integumentary: Reports: OA; Denies: RA, DJD, DDD, edema, other PSxH Narrative: right lumpectomy with LND Anesthesia Pre-op Phys. Exam Physician Exam Last Vital Signs Date Time Temp Pulse Resp B/P (MAP) Pulse Ox O2 Delivery O2 Flow Rate FiO2 02/11/19 04:00 78 02/11/19 04:00 98.4 18 127/69 (88) 99 02/10/19 21:00 Nasal Cannula 2.0 Constitutional: NAD Cardiovascular: RRR Respiratory: CTA Airway Exam Mallampati Score: Class II MO: limited ROM: limited Anesthesia Pre-op A/P Labs Hematology Test 02/11/19 04:37 White Blood Count 14.1 K/UL (4.8-10.8) #H Red Blood Count 3.84 M/UL (4.20-5.40) L Hemoglobin 11.3 G/DL (12.0-16.0) L Hematocrit 34.3 % (37.0-47.0) L Mean Corpuscular Volume 89 FL (80-99) Mean Corpuscular Hemoglobin 29.3 PG (27.0-31.0) Mean Corpuscular Hemoglobin Concent 32.9 G/DL (32.0-36.0) Red Cell Distribution Width 13.7 % (11.6-14.8) Platelet Count 200 K/UL (150-450) Mean Platelet Volume 5.2 FL (6.5-10.1) L Neutrophils (%) (Auto) 81.0 % (45.0-75.0) H Lymphocytes (%) (Auto) 13.7 % (20.0-45.0) L Monocytes (%) (Auto) 3.7 % (1.0-10.0) Eosinophils (%) (Auto) 1.2 % (0.0-3.0) Basophils (%) (Auto) 0.4 % (0.0-2.0) Coagulation Test 02/11/19 04:37 Prothrombin Time 10.6 SEC (9.30-11.50) Prothromb Time International Ratio 1.0 (0.9-1.1) Activated Partial Thromboplast Time 29 SEC (23-33) Chemistry Test 02/11/19 04:37 Sodium Level 135 MMOL/L (136-145) L Potassium Level 3.5 MMOL/L (3.5-5.1) Chloride Level 101 MMOL/L (98-107) Carbon Dioxide Level 28 MMOL/L (21-32) Anion Gap 6 mmol/L (5-15) Blood Urea Nitrogen 11 mg/dL (7-18) Creatinine 0.5 MG/DL (0.55-1.30) L Estimat Glomerular Filtration Rate mL/min (>60) Glucose Level 92 MG/DL (74-106) Calcium Level 8.8 MG/DL (8.5-10.1) Studies Pre-op Studies: EKG Risk Assessment & Plan Assessment: ASA III Plan: MAC Status Change Before Surgery: No Pre-Antibiotics Drug: N/A Lashell Gamboa MD Feb 11, 2019 08:36
[2019-02-11] MEDS ORDERED: DiphenhydrAMINE 50mg/ml Inj IVP PRN (08:45)
[2019-02-11] MEDS: LORazepam 0.5mg tab ORAL SCH ×2 (09:00→17:43)
[2019-02-11] MEDS: Lactobacillus-GG tablet ORAL SCH ×2 (09:00→17:44)
[2019-02-11] MEDS: Simethicone 80mg tab PO SCH ×3 (09:00→17:43)
[2019-02-11] MEDS: Multivitamin w/Minerals tab ORAL SCH (09:00)
[2019-02-11] MEDS: Miralax 17gm pkt ORAL SCH (09:00)
[2019-02-11] MEDS: Hyoscyamine 0.125mg tab ORAL SCH ×3 (09:00→17:44)
[2019-02-11] MEDS: Aspirin EC 81mg tab ORAL SCH (09:00)
[2019-02-11] MEDS: Magnesium Oxide 400mg tab ORAL SCH (09:00)
[2019-02-11] MEDS: Montelukast 10mg tablet ORAL SCH (09:00)
[2019-02-11] MEDS: Docusate 100mg cap ORAL SCH ×2 (09:00→17:42)
[2019-02-11] MEDS: Calcium Carbonate 500mg w/Vit D 200iu tab PO SCH (09:20)
[2019-02-11] MEDS ORDERED: Lidocaine 1% MPF 10mg/ml 5ml ONE (10:00)
[2019-02-11] MEDS ORDERED: Propofol 200mg/20ml IV ONE (10:00)
--- NOTE | 2019-02-11 10:12 | Pre-Procedure Note/Attestation ---
Pre-Procedure Note/Attestation Complete Prior to Procedure Planned Procedure: not applicable Procedure Narrative: esophagogastroduodenoscopy and colonoscopy Indications for Procedure Pre-Operative Diagnosis: anemia Attestation I attest that I discussed the nature of the procedure; its benefits; risks and complications; and alternatives (and the risks and benefits of such alternatives ), prior to the procedure, with the patient (or the patient's legal parts counter representative). I attest that, if there was a reasonable possibility of needing a blood transfusion, the patient (or the patient's legal parts counter representative) was given the [facility] standardized written summary, pursuant to the Gilberto Blue Blood Safety Act ([place] Health and Safety Code # 1645, as amended). I attest that I re-evaluated the patient just prior to the surgery and that there has been no change in the patient's H&P, except as documented below: Kapil Arshad MD Feb 11, 2019 10:12
[2019-02-11] MEDS ORDERED: NS 500ML IVPB ONE (10:19)
--- NOTE | 2019-02-11 10:45 | NUR ---
NURSE NOTES: patient taken for colonoscopy. Enema given and clear return observed.
--- NOTE | 2019-02-11 10:59 | Endoscopy Procedure Note ---
Endoscopy Procedure Note General Indication for Procedure: anemia Procedures Performed: EGD, colonoscopy Operative Findings/Diagnosis: gastritis, colon polyp Specimen: yes Pt Tolerated Procedure Well: Yes Estimated Blood Loss: none Anesthesia Anesthesiologist: jose ramon Anesthesia: MAC Inserted Devices Implant(s) used?: No Quality Quality of Bowel Preparation: Good Did scope reach the cecum?: Yes Was there any complications?: No GI Core Measures 50 yrs or older w/o bx or poly: No 10yrs. F/U recommended: Yes If not recommended, why?: Above average risk 18 years or older w/prev. colo: Yes <3yrs. since last colonoscopy: No Kapil Arshad MD Feb 11, 2019 10:59
--- NOTE | 2019-02-11 11:09 | Immediate Post-Op Evaluation ---
Immediate Post-Op Evalulation Immediate Post-Op Evalulation Procedure: EGD and colonoscopy Date of Evaluation: Feb 11, 2019 Time of Evaluation: 11:10 IV Fluids: 100 Blood Products: 0 Estimated Blood Loss: 0 Urinary Output: 0 Blood Pressure Systolic: 101 Blood Pressure Diastolic: 67 Pulse Rate: 91 Respiratory Rate: 16 O2 Sat by Pulse Oximetry: 96 Temperature (Fahrenheit): 98 Pain Score (1-10): 0 Nausea: No Vomiting: No Complications 0 Patient Status: awake, reacts, patent, none Hydration Status: adequate Drug: N/A Lashell Gamboa MD Feb 11, 2019 11:09
--- NOTE | 2019-02-11 11:10 | 48 Hour Post Anesthesia Eval ---
Post Anesthesia Evaluation Procedure: EGD and colonoscopy Date of Evaluation: Feb 11, 2019 Airway: patent Nausea: No Vomiting: No Pain Intensity: 0 Hydration Status: adequate Cardiopulmonary Status: at baseline Mental Status/LOC: patient returned to baseline Post-Anesthesia Complications: 0 Follow-up care needed: N/A - further care as per primary team Lashell Gamboa MD Feb 11, 2019 11:10
--- NOTE | 2019-02-11 11:30 | NUR ---
NURSE NOTES: Patient returned from GI lab. Patient stable requesting anxiety medication. Will give.
[2019-02-11] MEDS: clonazePAM 0.5mg tab ORAL PRN ×2 (11:59→12:00)
--- NOTE | 2019-02-11 16:15 | Procedure Note ---
DATE OF PROCEDURE: 02/11/2019 SURGEON: Kapil Arshad M.D. REFERRING PHYSICIAN: Delia Nix M.D. PROCEDURE: Upper endoscopy with biopsy and colonoscopy with snare polypectomy. ANESTHESIA: Per Dr. Crane. INSTRUMENT: Olympus adult flexible upper endoscope and colonoscope. INDICATIONS: Positive Cologuard test for colon cancer, history of colonic polyps, and anemia. REASON FOR PROCEDURE: The procedure, risks, benefits, and possible consequences, including hemorrhage, aspiration, perforation and infection, and alternative treatments, were explained to the patient/legal guardian by Dr. Kapil Arshad and the patient/legal guardian understood and accepted these risks PROCEDURE IN DETAIL: After informed consent was obtained and the patient was adequately sedated, Olympus upper endoscope was advanced from the mouth into second portion of the duodenum and retroflexion was performed in the stomach. The patient had evidence of diffuse gastritis. Random biopsy from antrum was obtained to rule out H. pylori infection. Otherwise, the rest of the upper endoscopic examination grossly looked within normal limits. At this time, the upper endoscope was retrieved and the patient was turned over for colonoscopy. First, rectal exam was performed, which was normal. Then, the scope was advanced from rectum into the cecum documented by appendix orifice, ileocecal valve, and right upper quadrant palpation. Quality of prep overall was good. The patient had one polyp, sessile in the ascending colon, measured roughly about 6 mm, removed with hot snare polypectomy technique. No further polyp or mass was seen in this colonoscopy examination. There was some scattered diverticulosis in the left colon without any obvious diverticulitis. Retroflexion of rectum showed evidence of internal hemorrhoids. SUMMARY OF FINDINGS: 1. Diffuse gastritis, status post biopsy. 2. One colonic polyp removed, see above for details. 3. Diverticulosis. 4. Internal hemorrhoids. RECOMMENDATIONS: 1. Follow up path and treat accordingly. 2. We will recommend repeat colonoscopy in 5 years. 3. Start diet and advance as tolerated. 4. Discharge planning per primary team. I want to thank Dr. Nix for this kind referral. Kapil Arshad M.D. DR: OUMAR JOB#: [id number] CC:
--- NOTE | 2019-02-11 19:22 | NUR ---
Received report from RALF Dailey. Pt is to be discharged tonight to [facility]. Pt in no acute distress. Bed in lowest position. Will follow up on the transportation.
--- NOTE | 2019-02-11 19:22 | NUR ---
HAND-OFF: Report given to Ulises Hidalgo RN. Patient stable ready for discharge. Only needs diaper. Report given at [facility] to L[facility] Discharge packet in chart.
[2019-02-11] MEDS: Atorvastatin 20mg tab ORAL SCH (21:00)
--- NOTE | 2019-02-11 21:15 | NUR ---
NURSE NOTES: Patient discharged to [facility], via gurney by [facility]. Pt in stable condition. In no acute distress. belongings sent to pt.
--- NOTE | 2019-02-11 22:04 | Discharge Summary ---
Discharge Summary Hospital Course Date of Admission Feb 09, 2019 at 23:25 Date of Discharge 02/11/19 Admitting Diagnosis gi bleeding HPI Brooke Sorensen is a 78 year old female who was admitted on Feb 09, 2019 at 23: 25 for Gastrointestinal Bleeding Consultations Gastroenterology Procedures Colonoscopy Hospital Course 78-year-old female with PMHx of COPD on 2L O2, HTN, diastolic CHF, chronic, osteoporosis, IBS-C, DDD who presents to the hospital after being referred by her [employer] Marshal Dr. Arshad for a positive occult blood in the setting of chronic abdominal pain and hemoglobin of 10.8. Vital signs were stable. H/H remained stable throughout the hospitalization. Patient was admitted for evaluation of possible GI bleed. Colonoscopy performed on 02/11/19 which showed one small polyp, no mass, no source of bleeding. Patient discharged back to [facility] with outpatient follow up with GI. Patient also treated for acute cystitis. Continue antibiotics for 1 more day. #Rule out GI bleed. Positive occult blood as outpatient. Hemoglobin 10.8. Chronic abdominal pain. History of prior colonoscopy with poor prep per patient. Hemodynamically unstable. Unable to perform prep at facility. # normocytic anemia, rule out acute vs. chronic. No recent hemoglobin values to compare. - admit to med surgery - GI consult: Dr. Arshad, SENIOR SOLUTIONS CONSULTANT Nina. Appreciate recs: Clear liquid diet, PPI, NPO at midnight for colonscopy. Prep with golytley tonight. - CBC Q12hr - transfuse for hemoglobin <7 - protonix 80mg IV x 1 - PPI - D/w Stave Cutting Supervisor Nina. Per GI no pulmonary or cardiac clearance needed at this time. Patient denies any recent COPD exacerbations. At baseline home O2. No history of MO or CAD/stents. - Discussed at length code status. 33 minutes. Patient would like to remain DNR/ DNI while in the hospital but would like to change to Full Code for the colonoscopy procedure. #Acute cystitis - follow up urine culture - Rocephin 1gm IV daily #COPD on home O2, not in exacerbation. - titrate to keep SpO2 >90% - Duo-Nebs Q6hr PRN SOB/Wheezing - continue home singulair #Diastolic CHF, chronic, compensated - not in exacerbation - Blood pressure control - not on home lasix. Will monitor fluid status. Euvolemic on exam today - avoid excessive fluids during colonoscopy #HTN, controlled - hold NORMA-I on morning of colonoscopy - Continue amlodipine 10mg PO daily - Hydralazine 25mg PO Q6hr PRN for SBP >160 #Hyperlipidemia - Atorvastatin 40mg Po daily while in the hospital (home is crestor 20mg, not available in hospital) #IBS-C #fibromyalgia #GERD - continue lyrica 75mg PO BID - continue Lexapro 20mg Po daily - continue Colace 100mg Po BID - continue simethecone 125mg PO TID - PPI as above #Goals of care - Discussed at length code status. 33 minutes. Patient would like to remain DNR/ DNI while in the hospital but would be Ok with change to Full Code for the colonoscopy procedure. > 30 minutes spent on this discharge. >50% spent on counseling and care coordination with nursing, complex case manager, and patient. ove. Discharge Condition Upon Discharge: stable Discharge Disposition Patient was discharged to SNF Discharge Diagnoses: (1) GI bleed (2) Chronic respiratory failure with hypoxia (3) Diastolic CHF (4) Hypertension (5) Anxiety (6) Anemia (7) COPD (chronic obstructive pulmonary disease) Neto Hartmann D.O. Feb 11, 2019 22:03
--- NOTE | 2019-02-19 17:21 | Cardiology Report ---
APPROVED REPORT EKG Measurement Heart [id number] Sinus rhythm with sinus arrhythmia with 1st degree AV block T wave abnormality, consider anterior ischemia Abnormal ECG
== END 2019-02-11 21:15 | DRG 378 ==
LOC: EDBD 22:38 → EMR 22:45 → 2E 23:25 → EDBEDREQ 02-10 00:34 → 2E 02-10 17:02
PROC: 0DB78ZX Excision of Stomach, Pylorus, Via Natural or Artificial Opening Endoscopic, Diagnostic (ICD-10-PCS; principal; 2019-02-11 10:30)
PROC: 0DBK8ZZ Excision of Ascending Colon, Via Natural or Artificial Opening Endoscopic (ICD-10-PCS; principal; 2019-02-11 10:30)
DX: K92.2 Gastrointestinal hemorrhage, unspecified (principal); I50.32 Chronic diastolic (congestive) heart failure; J96.11 Chronic respiratory failure with hypoxia; N30.00 Acute cystitis without hematuria; K29.70 Gastritis, unspecified, without bleeding; K64.8 Other hemorrhoids; K57.30 Diverticulosis of large intestine without perforation or abscess without bleeding; J44.9 Chronic obstructive pulmonary disease, unspecified; I11.0 Hypertensive heart disease with heart failure; E78.5 Hyperlipidemia, unspecified; M79.7 Fibromyalgia; K58.1 Irritable bowel syndrome with constipation; K21.9 Gastro-esophageal reflux disease without esophagitis; Z88.8 Allergy status to other drugs, medicaments and biological substances; D64.9 Anemia, unspecified; D12.2 Benign neoplasm of ascending colon
CPT/HCPCS: 36415; 71045; 80048; 80053; 81003; 82270; 83690; 85025; 85610; 85730; 86850; 86900; 86901; 87081; 87086; 93005; 94003; 94150; 94664; 96361; 96365; 96375; 99285

== ENCOUNTER 2019-03-14 13:42 | Outpatient (CLI) | payer MEDICARE, OTHER ==
[~2019-03-14 13:42] MED LIST changes: +ACETYLCYST200 MG/1 M HHN; +ACIDOPHILUS1 EAC7 PO; +DICYCLOMINE HCL10 MG ORAL; +FLOVENT2 PUFFS INH; +FLUTICASONE PRO16 G1 INH; +FLUTICASONE PRO16 G1 NASAL; +IPRATROPIU0.2 MG/1 M HHN; +KLONOPIN0.5 MG ORAL; +KLONOPIN2 MG PO; +LEVSIN-SL0.125 MG SL; +LINZESS290 MCG PO; +LORAZEPAM0.5 MG ORAL; +MAGOX 400400 MG ORAL; +MELATONIN3 MG ORAL; +MULTIVITAMINS1 EA14 PO; +RANITIDINE15 MG/1 ML PO
[2019-03-15] MEDS ORDERED: LINZESS290 MCG PO (07:32)
[2019-03-15 07:33] VITALS: BP 113/61
--- NOTE | 2019-03-15 08:54 | General Progress Note ---
Assessment/Plan Problem List: (1) Diastolic CHF ICD Codes: I50.30 - Unspecified diastolic (congestive) heart failure SNOMED: 13917739, 624246063 (2) Hypertension ICD Codes: I10 - Essential (primary) hypertension SNOMED: 40662713 (3) Anxiety ICD Codes: F41.9 - Anxiety disorder, unspecified SNOMED: 37723150 (4) COPD (chronic obstructive pulmonary disease) ICD Codes: J44.9 - Chronic obstructive pulmonary disease, unspecified SNOMED: 10564547 (5) Anemia ICD Codes: D64.9 - Anemia, unspecified SNOMED: 965184079 (6) Constipation ICD Codes: K59.00 - Constipation, unspecified SNOMED: 52983303 (7) History of breast cancer ICD Codes: Z85.3 - Personal history of malignant neoplasm of breast SNOMED: 308696042 Assessment/Plan: SUMMARY OF FINDINGS: 1. Diffuse gastritis, status post biopsy. 2. One colonic polyp removed, see above for details. 3. Diverticulosis. 4. Internal hemorrhoids. RECOMMENDATIONS: linzess 290 miralax and add lactulose repeat colon in 5 years Subjective ROS Limited/Unobtainable: Yes Allergies: Coded Allergies: [place] (Unverified Allergy, Mild, upset stomach, 02/10/19) TOMATO (Unverified Allergy, Mild, upset stomach, 02/10/19) TETRACYCLINE (Unverified Allergy, Unknown, 07/24/14) Objective Last 24 Hour Vital Signs Date Time Temp Pulse Resp B/P (MAP) Pulse Ox O2 Delivery O2 Flow Rate FiO2 03/15/19 07:33 18 113/61 (78) 97 General Appearance: alert EENT: normal ENT inspection Neck: supple Cardiovascular: normal rate Respiratory/Chest: decreased breath sounds Abdomen: normal bowel sounds, non tender, soft Extremities: non-tender Kapil Arshad MD Mar 15, 2019 08:54
== END 2019-03-14 15:42 | disposition home or self-care (01) ==
LOC: PAN 13:42
DX: K59.00 Constipation, unspecified (principal); I50.30 Unspecified diastolic (congestive) heart failure; I11.0 Hypertensive heart disease with heart failure; F41.9 Anxiety disorder, unspecified; J44.9 Chronic obstructive pulmonary disease, unspecified; D64.9 Anemia, unspecified; Z85.3 Personal history of malignant neoplasm of breast; K29.70 Gastritis, unspecified, without bleeding; K63.5 Polyp of colon; K57.90 Diverticulosis of intestine, part unspecified, without perforation or abscess without bleeding; K64.8 Other hemorrhoids; Z88.8 Allergy status to other drugs, medicaments and biological substances; Z91.018 Allergy to other foods
CPT/HCPCS: 99212

== ENCOUNTER 2019-03-30 04:04 | Inpatient (IN) | payer MEDICARE, OTHER ==
[~2019-03-30] VITALS: Ht 162.6 cm; Wt 70.8 kg
[2019-03-30] VITALS (7 sets, daily range): BP systolic 86–119; BP diastolic 45–83
--- NOTE | 2019-03-30 04:13 | Emergency Room Report ---
History of Present Illness General Chief Complaint: Altered Level of Consciousness Source: Patient Present Illness HPI Disclaimer: Please note that this report is being documented using DRAGON technology. This can lead to erroneous entry secondary to incorrect interpretation by the dictating instrument. HPI: 78-year-old female with a history of COPD, diastolic heart failure, anemia , GERD, hypertension, hyperlipidemia presents for evaluation of altered level of consciousness and hypoxia. Patient cannot provide any significant history due to her clinical condition at this time. According to EMS, from her convalescent home she was found to be altered approximately 4 hours ago. She was tachypneic and placed on nonrebreather on their evaluation and only improved to 88%. She remained hypoxic on route and tachypneic. They noted rhonchorous respirations but no cough. She is DNR/DNI and comfort measures according to her POLST form. PMH: CHF, COPD, anemia, hypertension, hyperlipidemia PSH: Reviewed in chart Allergies: Tetracycline Social Hx: Unable to obtain from patient Allergies: Coded Allergies: [place] (Unverified Allergy, Mild, upset stomach, 02/10/19) TOMATO (Unverified Allergy, Mild, upset stomach, 02/10/19) TETRACYCLINE (Unverified Allergy, Unknown, 07/24/14) Nursing Documentation-PMH Hx Cardiac Problems: Yes Hx Hypertension: Yes Hx Asthma: Yes Hx COPD: Yes Hx Diabetes: Yes Hx Cancer: Yes Hx Gastrointestinal Problems: Yes Hx Neurological Problems: No Review of Systems All Other Systems: limited - Unable to obtain from patient Physical Exam Vital Signs Date Time Temp Pulse Resp B/P (MAP) Pulse Ox O2 Delivery O2 Flow Rate FiO2 03/30/19 04:02 98.8 120 16 104/45 (64) 80 Simple Mask 10.0 General: Awake and alert, tachypneic and in moderate distress HEENT: NC/AT. EOMI. dry mucous membranes, arrives with nonrebreather Cardiovascular: Tachycardic. S1 and S2 normal. No murmur appreciated Resp: Tachypnea and increased work of breathing. Bilateral rhonchi. No wheezing. Abdomen: Abdomen is soft, nondistended. Nontender Skin: Intact. No abrasions, laceration or rash over the exposed skin MSK: Normal tone and bulk. Moving all extremities. No obvious deformity. Neuro: Awake, not answering questions, eyes are tracking. Moving all extremities. Procedures Critical Care Time Critical Care Time Total critical care time: Approximately 45 minutes Due to a high probability of clinically significant, life threatening deterioration, the patient required the highest level of preparedness to intervene emergently and I personally spent this critical care time directly and personally managing the patient. This critical care time included obtaining a history, examining the patient, pulse oximetry, ordering and reviewing studies , ordering treatments, evaluating response to treatment and updating management plan as needed, frequent reassessment and discussion with other providers as well as arranging for ultimate disposition. This critical to care time was performed to assess and manage the high probability of life-threatening deterioration that could result in multiorgan failure. This critical care time is separate from the separately billable procedures and treating other patients. Medical Decision Making Diagnostic Impression: Primary Impression: CRISTÓBAL (acute kidney injury) Additional Impressions: Sepsis with acute hypoxic respiratory failure Diastolic CHF UTI (urinary tract infection) ER Course 78-year-old female presents from her convalescent facility for altered level of consciousness of several hours and arriving hypoxic in moderate respiratory distress. Patient is tachycardic and tachypneic. Concern for pneumonia, pneumothorax, bronchitis, mucous plug, ACS, sepsis. We will start broad metabolic and infectious work-up. EKG on arrival shows sinus tachycardia with PVCs but no ischemic changes. Patient is DNR/DNI. Currently 94% on nonrebreather but will start patient on BiPAP for increased work of breathing. Laboratory Tests Test 03/30/19 04:14 03/30/19 04:28 03/30/19 04:50 White Blood Count 21.2 K/UL (4.8-10.8) H Red Blood Count 3.46 M/UL (4.20-5.40) L Hemoglobin 10.3 G/DL (12.0-16.0) L Hematocrit 31.5 % (37.0-47.0) L Mean Corpuscular Volume 91 FL (80-99) Mean Corpuscular Hemoglobin 29.7 PG (27.0-31.0) Mean Corpuscular Hemoglobin Concent 32.7 G/DL (32.0-36.0) Red Cell Distribution Width 14.2 % (11.6-14.8) Platelet Count 198 K/UL (150-450) Mean Platelet Volume 5.8 FL (6.5-10.1) L Neutrophils (%) (Auto) % (45.0-75.0) Lymphocytes (%) (Auto) % (20.0-45.0) Monocytes (%) (Auto) % (1.0-10.0) Eosinophils (%) (Auto) % (0.0-3.0) Basophils (%) (Auto) % (0.0-2.0) Differential Total Cells Counted 100 Neutrophils % (Manual) 84 % (45-75) H Lymphocytes % (Manual) 10 % (20-45) L Monocytes % (Manual) 6 % (1-10) Eosinophils % (Manual) 0 % (0-3) Basophils % (Manual) 0 % (0-2) Band Neutrophils 0 % (0-8) Platelet Estimate Adequate Platelet Morphology Normal Sodium Level 127 MMOL/L (136-145) L Potassium Level 4.3 MMOL/L (3.5-5.1) Chloride Level 94 MMOL/L (98-107) L Carbon Dioxide Level 28 MMOL/L (21-32) Anion Gap 5 mmol/L (5-15) Blood Urea Nitrogen 48 mg/dL (7-18) H Creatinine 2.2 MG/DL (0.55-1.30) H Estimate Glomerular Filtration Rate mL/min (>60) Glucose Level 125 MG/DL (74-106) H Lactic Acid Level 1.80 mmol/L (0.4-2.0) Calcium Level 8.8 MG/DL (8.5-10.1) Total Bilirubin 0.5 MG/DL (0.2-1.0) Aspartate Amino Transferase (AST) 20 U/L (15-37) Alanine Aminotransferase (ALT) 30 U/L (12-78) Alkaline Phosphatase 100 U/L (46-116) Total Creatine Kinase 30 U/L (26-308) Creatine Kinase MB 0.5 NG/ML (0.0-3.6) Creatine Kinase MB Relative Index 1.6 Troponin I 0.000 ng/mL (0.000-0.056) Pro-B-Type Natriuretic Peptide 3011 pg/mL (0-125) H Total Protein 7.0 G/DL (6.4-8.2) Albumin 3.0 G/DL (3.4-5.0) L Globulin 4.0 g/dL Albumin/Globulin Ratio 0.8 (1.0-2.7) L Arterial Blood pH 7.350 (7.350-7.450) Arterial Blood Partial Pressure CO2 40.0 mmHg (35.0-45.0) Arterial Blood Partial Pressure O2 65.2 mmHg (75.0-100.0) L Arterial Blood HCO3 21.7 mmol/L (22.0-26.0) L Arterial Blood Oxygen Saturation 90.4 % (95-100) L Arterial Blood Base Excess -3.6 (-2-2) L Scooby Test Positive Urine Color Yellow Urine Appearance Turbid Urine pH 5 (4.5-8.0) Urine Specific [place] 1.015 (1.005-1.035) Urine Protein 3+ (NEGATIVE) H Urine Glucose (UA) Negative (NEGATIVE) Urine Ketones Negative (NEGATIVE) Urine Blood 5+ (NEGATIVE) H Urine Nitrite Negative (NEGATIVE) Urine Bilirubin Negative (NEGATIVE) Urine Urobilinogen Normal MG/DL (0.0-1.0) Urine Leukocyte Esterase 3+ (NEGATIVE) H Urine RBC 20-30 /HPF (0 - 2) H Urine WBC Tntc /HPF (0 - 2) H Urine Squamous Epithelial Cells None /LPF (NONE/OCC) Urine Bacteria Many /HPF (NONE) H EKG Diagnostic Results EKG Time: 04:10 Rate: tachycardiac Rhythm: NSR Other Impression Sinus tachycardia, borderline left axis. No ST segment changes. Multiple PVCs. Rhythm Strip Diag. Results Rhythm Strip Time: 04:10 EP Interpretation: yes Rate: 120s Rhythm: other - PVCs, sinus tach Chest X-Ray Diagnostic Results Chest X-Ray Diagnostic Results : Chest X-Ray Ordered: Yes # of Views/Limited/Complete: 1 View Indication: Shortness of Breath Interpretation: other - Bilateral pulmonary congestion, questionable right lower lobe infiltrate Impression: Other - Questionable infiltrate in the right lower lobe, bilateral pulmonary congestion and interstitial edema Electronically Signed by: Electronically signed by Dr. Danielito Weeks Reevaluation Time: 05:16 Last Vital Signs Date Time Temp Pulse Resp B/P (MAP) Pulse Ox O2 Delivery O2 Flow Rate FiO2 03/30/19 04:02 98.8 120 16 104/45 (64) 80 Simple Mask 10.0 Reevaluation Impression Labs show significant white count, acute kidney injury with elevated creatinine , hyponatremia, bilateral pulmonary congestion on x-ray consistent with CHF. Blood gas shows hypoxia but no hypercapnia. More consistent with a CHF exacerbation rather than COPD. Patient tolerating BiPAP. Heart rate is improving and oxygenating well at this time. Urinalysis consistent with acute urinary tract infection. May be the source of her sepsis. Patient did have a brief episode of hypotension but is responsive to fluids. Patient be treated with vancomycin and Zosyn. We will continue IV fluids but also give Lasix for pulmonary congestion. She will be admitted to the stepdown unit Disposition: ADMITTED INPATIENT Condition: Critical Danielito Weeks MD Mar 30, 2019 04:13
[2019-03-30 04:23] LABS: HEMATOCRIT 31.5 % (37.0-47.0); HEMOGLOBIN 10.3 G/DL (12.0-16.0); MEAN CORPUSCULAR VOLUME 91 FL (80-99); PLATELET COUNT 198 K/UL (150-450); RED BLOOD COUNT 3.46 M/UL (4.20-5.40); RED CELL DISTRIBUTION WIDTH 14.2 % (11.6-14.8); WHITE BLOOD COUNT 21.2 K/UL (4.8-10.8)
[2019-03-30] MEDS ORDERED: LYRICA75 M1 ORAL (04:24)
[2019-03-30] MEDS ORDERED: DULCOLAX STOOL100 M2 PO (04:24)
[2019-03-30] MEDS ORDERED: MELATONIN3 MG ORAL (04:24)
[2019-03-30] MEDS ORDERED: MAG-OXIDE400 M1 PO (04:24)
[2019-03-30] MEDS ORDERED: FLEET ENEMA133 ML RECTAL (04:24)
[2019-03-30] MEDS ORDERED: ASPIRIN81 MG ORAL (04:24)
[2019-03-30] MEDS ORDERED: LEXAPRO20 MG ORAL (04:24)
[2019-03-30 04:34] LABS: BILIRUBIN, URINE NEGATIVE (NEGATIVE); GLUCOSE, URINE (UA) NEGATIVE (NEGATIVE); KETONES,URINE NEGATIVE (NEGATIVE); LEUKOCYTE ESTERASE ,URINE 3+ (NEGATIVE); NITRITE,URINE NEGATIVE (NEGATIVE); PH,URINE 5 (4.5-8.0); PROTEIN,URINE 3+ (NEGATIVE); UROBILINOGEN,URINE NORMAL MG/DL (0.0-1.0)
[2019-03-30 04:35] LABS: ANION GAP 5 mmol/L (5-15); BLOOD UREA NITROGEN 48 mg/dL (7-18); CALCIUM 8.8 MG/DL (8.5-10.1); CARBON DIOXIDE 28 MMOL/L (21-32); CHLORIDE 94 MMOL/L (98-107); CREATININE 2.2 MG/DL (0.55-1.30); POTASSIUM 4.3 MMOL/L (3.5-5.1); SODIUM 127 MMOL/L (136-145)
[2019-03-30 04:48] LABS: ALANINE AMINOTRANSFERASE 30 U/L (12-78); ALBUMIN/GLOBULIN RATIO 0.8 (1.0-2.7); ALKALINE PHOSPHATASE 100 U/L (46-116); ASPARTATE AMINO TRANSFERASE 20 U/L (15-37); BILIRUBIN,TOTAL 0.5 MG/DL (0.2-1.0); CKMB 0.5 NG/ML (0.0-3.6); CREATINE KINASE 30 U/L (26-308)
[2019-03-30] MEDS ORDERED: Piperacillin/Tazobactam 3.375 GM in NS 110 ML IVPB ONE (05:00)
[2019-03-30] MEDS ORDERED: Vancomycin 1.5 GM in NS 275 ML IVPB ONE (05:00)
[2019-03-30] MEDS ORDERED: cefTRIAXone 1 GM in NS 55 ML IVPB ONE (05:00)
[2019-03-30 05:31] LABS: APPEARANCE,URINE TURBID; COLOR,URINE YELLOW
--- NOTE | 2019-03-30 08:45 | History and Physical ---
History of Present Illness General Date patient seen: Mar 30, 2019 Reason for Hospitalization: Altered Level of Consciousness Present Illness HPI 78-year-old female with PMHx of COPD on 2L O2, HTN, HFpEF, osteoporosis, IBS-C, DDD, Anemia, and UTI presented for evaluation of altered level of consciousness , fever, congestion and hypoxia from SNF ([facility]). Patient cannot provide any history due to being lethargic. Information gathered from medical chart and speaking to ED physician. According to EMS, she was found to be altered approximately 4 hours prior to ER presentation. She was tachypneic and placed on nonrebreather on their evaluation and only improved to 88%. She remained hypoxic on route, tachycardic and tachypneic. She is DNR/DNI and comfort measures according to her POLST form. of note she had a recent admission for suspected GI bleed, and underwent a colonoscopy on 02/11/19 which showed one small polyp, no mass, no source of bleeding. PMHx: As above SurgicalHx: Colonoscopy 2018, Breast bx 1999 Family history: Father: "stomach problems", Sister: IBS-D- Per chart review Social history: retirement resident ER Course Started broad metabolic and infectious work-up. EKG on arrival sinus tachycardia with PVCs but no ischemic changes. BiPAP for increased work of breathing. CXR: Bilateral pulmonary congestion, questionable right lower lobe infiltrate Labs: significant white count, acute kidney injury with elevated creatinine, hyponatremia, Anemia. Blood gas: hypoxia, no hypercapnia. Urinalysis consistent with acute urinary tract infection Patient tolerated BiPAP. Heart rate and oxygenation improved. Episode of hypotension but is responsive to fluids. Received vancomycin and Zosyn. Admitted to the stepdown unit l Allergies: Coded Allergies: [place] (Unverified Allergy, Mild, upset stomach, 02/10/19) TOMATO (Unverified Allergy, Mild, upset stomach, 02/10/19) TETRACYCLINE (Unverified Allergy, Unknown, 07/24/14) Medication History Scheduled Amlodipine Besylate* (Amlodipine Besylate*), 10 MG ORAL DAILY, (Reported) Aspirin Ec* (Aspirin Ec*), 81 MG ORAL DAILY, (Reported) Aspirin* (Aspirin*), 81 MG ORAL DAILY, (Reported) Calcium Carbonate/Vitamin D3 (Os-Igor 500+D3 Caplet), 1 EACH PO DAILY, (Reported) Docusate Sodium* (Colace*), 100 MG ORAL BID, (Reported) Escitalopram Oxalate* (Lexapro*), 20 MG ORAL DAILY, (Reported) Escitalopram Oxalate* (Lexapro*), 20 MG ORAL DAILY, (Reported) Ferrous Sulfate* (Ferrous Sulfate*), 325 MG ORAL DAILY, (Reported) Fluticasone Propionate (Flovent Hfa), 2 PUFFS INH DAILY, (Reported) Fluticasone Propionate* (Fluticasone Propionate*), 1 SPRAY NASAL DAILY, ( Reported) Gabapentin* (Gabapentin*), 300 MG ORAL THREE TIMES A DAY, (Reported) Hyoscyamine Sulfate* (Levsin-Sl*), 0.125 MG SL TID, (Reported) Lactobacillus Acidophilus (Acidophilus), 1 EACH PO BID, (Reported) Linaclotide (Linzess), 290 MCG PO ACBREAKFAST, (Reported) Linaclotide (Linzess), 290 MCG PO DAILY, (Reported) Lisinopril (Lisinopril*), 20 MG ORAL DAILY, (Reported) Magnesium Hydroxide* (Milk Of Magnesia*), 30 ML ORAL DAILY, (Reported) Magnesium Oxide (Magox 400), 200 MG ORAL DAILY, (Reported) Montelukast Sodium* (Montelukast Sodium*), 10 MG ORAL DAILY, (Reported) Na Phos,M-B/Na Phos,Di-Ba* (Fleet Enema*), 133 ML RECTAL DAILY, (Reported) Pantoprazole* (Protonix*), 40 MG ORAL DAILY, (Reported) Polyethylene Glycol 3350* (Miralax*), 17 GM ORAL DAILY, (Reported) Pregabalin* (Lyrica*), 75 MG ORAL BID, (Reported) Pregabalin* (Lyrica*), 75 MG ORAL THREE TIMES A DAY, (Reported) Ranitidine Hcl (Ranitidine Hcl), 75 MG PO BID, (Reported) Rosuvastatin Calcium* (Crestor*), 20 MG ORAL DAILY, (Reported) Simethicone (Simethicone), 125 MG PO TID, (Reported) [Bevespi Aerosphere ], 2 PUFFS INH BID, (Reported) Scheduled PRN Acetaminophen* (Acetaminophen 325MG Tablet*), 650 MG ORAL Q4H PRN for Pain Scale (3-5), (Reported) Acetylcysteine* (Acetylcysteine*), 200 MG HHN Q4HR PRN for CONGESTION, (Reported ) Benzonatate* (Tessalon Perle*), 100 MG ORAL THREE TIMES A DAY PRN for For Cough, (Reported) Bisacodyl (Dulcolax), 10 MG RC PRN PRN for Constipation, (Reported) Clonazepam* (Klonopin*), 0.5 MG ORAL BID PRN for For Anxiety, (Reported) Dicyclomine Hcl* (Dicyclomine Hcl*), 10 MG ORAL QID PRN for For Pain, (Reported) Guaifenesin/Codeine Phos* (Robitussin Ac*), 20 ML ORAL Q8HR PRN for For Cough, ( Reported) Ipratropium [place] 0.5MG/2.5ML (Ipratropium [place] 0.5MG/2.5ML), 0.5 MG HHN Q6H PRN for Shortness of Breath, (Reported) Levalbuterol Hcl (Xopenex*), 0.63 MG HHN Q6H PRN for Shortness of Breath, ( Reported) Lorazepam* (Lorazepam*), 0.5 MG ORAL BID PRN for For Anxiety, (Reported) Melatonin (Melatonin), 3 MG ORAL BEDTIME PRN for INSOMNIA, (Reported) Melatonin (Melatonin), 3 MG ORAL BEDTIME PRN for Insomnia, (Reported) Na Phos,M-B/Na Phos,Di-Ba* (Fleet Enema*), 133 ML RECTAL DAILY PRN for Constipation, (Reported) Ondansetron* (Zofran*), 4 MG ORAL Q4HR PRN for Nausea & Vomiting, (Reported) Oxycodone Hcl Ir* (Roxicodone Ir*), 5 MG ORAL Q6H PRN for For Pain, (Reported) [Magic Mouthwash ], 15 ML PO Q4HR PRN for For Pain, (Reported) [Mylanta ], 20 ML PO Q4HR PRN for INDIGESTION, (Reported) Miscellaneous Medications Docusate Sodium (Dulcolax Stool Softener), 100 MG PO, (Reported) Magnesium Oxide (Mag-Oxide), 400 MG PO, (Reported) Multivitamin (Multivitamins), 1 EACH PO, (Reported) Patient History Healthcare decision maker Resuscitation status Advanced Directive on File Review of Systems ROS Narrative unable to obtain due to AMS Physical Exam Physical Exam Narrative General Appearance: mild respiratory distress on bipap, lethargic, minimal response to verbal commands, grimaces to painful stimuli Lines, tubes and drains: peripheral HEENT: normocephalic, atraumatic, PERRL, EOMI, no JVD, DRY MM Neck: non-tender, normal alignment, supple Respiratory/Chest: rales and rhonchi Cardiovascular/Chest: tachycardic, regular rhythm, no m/r/g Abdomen: normal bowel sounds, soft, obese, non tender Extremities: normal range of motion, non-tender, normal inspection, moves all ext, no edema Skin Exam: poor turger, refer to photos , stage 2 sacral decub Neurologic: lethargic, unable to assess, moves all four limbs Musculoskeletal: normal muscle bulk, no effusion, atrophy Last 24 Hour Vital Signs Date Time Temp Pulse Resp B/P (MAP) Pulse Ox O2 Delivery O2 Flow Rate FiO2 03/30/19 08:40 97.2 118 19 108/53 92 Bi-pap 30 03/30/19 07:35 110 20 97 Facial 30 03/30/19 05:01 116 22 97 Facial 30 03/30/19 04:33 98.8 122 20 104/45 98 10.0 30 03/30/19 04:33 122 20 10.0 30 03/30/19 04:27 122 20 98 Bi-Pap 21 03/30/19 04:27 122 20 98 Facial 30 03/30/19 04:02 98.8 120 16 104/45 (64) 80 Simple Mask 10.0 Laboratory Tests Test 03/30/19 04:14 03/30/19 04:28 03/30/19 04:50 White Blood Count 21.2 K/UL (4.8-10.8) H Red Blood Count 3.46 M/UL (4.20-5.40) L Hemoglobin 10.3 G/DL (12.0-16.0) L Hematocrit 31.5 % (37.0-47.0) L Mean Corpuscular Volume 91 FL (80-99) Mean Corpuscular Hemoglobin 29.7 PG (27.0-31.0) Mean Corpuscular Hemoglobin Concent 32.7 G/DL (32.0-36.0) Red Cell Distribution Width 14.2 % (11.6-14.8) Platelet Count 198 K/UL (150-450) Mean Platelet Volume 5.8 FL (6.5-10.1) L Neutrophils (%) (Auto) % (45.0-75.0) Lymphocytes (%) (Auto) % (20.0-45.0) Monocytes (%) (Auto) % (1.0-10.0) Eosinophils (%) (Auto) % (0.0-3.0) Basophils (%) (Auto) % (0.0-2.0) Differential Total Cells Counted 100 Neutrophils % (Manual) 84 % (45-75) H Lymphocytes % (Manual) 10 % (20-45) L Monocytes % (Manual) 6 % (1-10) Eosinophils % (Manual) 0 % (0-3) Basophils % (Manual) 0 % (0-2) Band Neutrophils 0 % (0-8) Platelet Estimate Adequate Platelet Morphology Normal Sodium Level 127 MMOL/L (136-145) L Potassium Level 4.3 MMOL/L (3.5-5.1) Chloride Level 94 MMOL/L (98-107) L Carbon Dioxide Level 28 MMOL/L (21-32) Anion Gap 5 mmol/L (5-15) Blood Urea Nitrogen 48 mg/dL (7-18) H Creatinine 2.2 MG/DL (0.55-1.30) H Estimat Glomerular Filtration Rate mL/min (>60) Glucose Level 125 MG/DL (74-106) H Lactic Acid Level 1.80 mmol/L (0.4-2.0) Calcium Level 8.8 MG/DL (8.5-10.1) Total Bilirubin 0.5 MG/DL (0.2-1.0) Aspartate Amino Transf (AST/SGOT) 20 U/L (15-37) Alanine Aminotransferase (ALT/SGPT) 30 U/L (12-78) Alkaline Phosphatase 100 U/L (46-116) Total Creatine Kinase 30 U/L (26-308) Creatine Kinase MB 0.5 NG/ML (0.0-3.6) Creatine Kinase MB Relative Index 1.6 Troponin I 0.000 ng/mL (0.000-0.056) Pro-B-Type Natriuretic Peptide 3011 pg/mL (0-125) H Total Protein 7.0 G/DL (6.4-8.2) Albumin 3.0 G/DL (3.4-5.0) L Globulin 4.0 g/dL Albumin/Globulin Ratio 0.8 (1.0-2.7) L Arterial Blood pH 7.350 (7.350-7.450) Arterial Blood Partial Pressure CO2 40.0 mmHg (35.0-45.0) Arterial Blood Partial Pressure O2 65.2 mmHg (75.0-100.0) L Arterial Blood HCO3 21.7 mmol/L (22.0-26.0) L Arterial Blood Oxygen Saturation 90.4 % (95-100) L Arterial Blood Base Excess -3.6 (-2-2) L Scooby Test Positive Urine Color Yellow Urine Appearance Turbid Urine pH 5 (4.5-8.0) Urine Specific [place] 1.015 (1.005-1.035) Urine Protein 3+ (NEGATIVE) H Urine Glucose (UA) Negative (NEGATIVE) Urine Ketones Negative (NEGATIVE) Urine Blood 5+ (NEGATIVE) H Urine Nitrite Negative (NEGATIVE) Urine Bilirubin Negative (NEGATIVE) Urine Urobilinogen Normal MG/DL (0.0-1.0) Urine Leukocyte Esterase 3+ (NEGATIVE) H Urine RBC 20-30 /HPF (0 - 2) H Urine WBC Tntc /HPF (0 - 2) H Urine Squamous Epithelial Cells None /LPF (NONE/OCC) Urine Bacteria Many /HPF (NONE) H Microbiology Date/Time Source Procedure Growth Status 03/30/19 06:00 Rectum Received Height (Feet): 5 Height (Inches): 4.00 Weight (Pounds): 187 Objective Narrative Laboratory Tests Test 03/30/19 04:14 03/30/19 04:28 03/30/19 04:50 White Blood Count 21.2 K/UL (4.8-10.8) H Red Blood Count 3.46 M/UL (4.20-5.40) L Hemoglobin 10.3 G/DL (12.0-16.0) L Hematocrit 31.5 % (37.0-47.0) L Mean Corpuscular Volume 91 FL (80-99) Mean Corpuscular Hemoglobin 29.7 PG (27.0-31.0) Mean Corpuscular Hemoglobin Concent 32.7 G/DL (32.0-36.0) Red Cell Distribution Width 14.2 % (11.6-14.8) Platelet Count 198 K/UL (150-450) Mean Platelet Volume 5.8 FL (6.5-10.1) L Neutrophils (%) (Auto) % (45.0-75.0) Lymphocytes (%) (Auto) % (20.0-45.0) Monocytes (%) (Auto) % (1.0-10.0) Eosinophils (%) (Auto) % (0.0-3.0) Basophils (%) (Auto) % (0.0-2.0) Differential Total Cells Counted 100 Neutrophils % (Manual) 84 % (45-75) H Lymphocytes % (Manual) 10 % (20-45) L Monocytes % (Manual) 6 % (1-10) Eosinophils % (Manual) 0 % (0-3) Basophils % (Manual) 0 % (0-2) Band Neutrophils 0 % (0-8) Platelet Estimate Adequate Platelet Morphology Normal Sodium Level 127 MMOL/L (136-145) L Potassium Level 4.3 MMOL/L (3.5-5.1) Chloride Level 94 MMOL/L (98-107) L Carbon Dioxide Level 28 MMOL/L (21-32) Anion Gap 5 mmol/L (5-15) Blood Urea Nitrogen 48 mg/dL (7-18) H Creatinine 2.2 MG/DL (0.55-1.30) H Estimate Glomerular Filtration Rate mL/min (>60) Glucose Level 125 MG/DL (74-106) H Lactic Acid Level 1.80 mmol/L (0.4-2.0) Calcium Level 8.8 MG/DL (8.5-10.1) Total Bilirubin 0.5 MG/DL (0.2-1.0) Aspartate Amino Transferase (AST) 20 U/L (15-37) Alanine Aminotransferase (ALT) 30 U/L (12-78) Alkaline Phosphatase 100 U/L (46-116) Total Creatine Kinase 30 U/L (26-308) Creatine Kinase MB 0.5 NG/ML (0.0-3.6) Creatine Kinase MB Relative Index 1.6 Troponin I 0.000 ng/mL (0.000-0.056) Pro-B-Type Natriuretic Peptide 3011 pg/mL (0-125) H Total Protein 7.0 G/DL (6.4-8.2) Albumin 3.0 G/DL (3.4-5.0) L Globulin 4.0 g/dL Albumin/Globulin Ratio 0.8 (1.0-2.7) L Arterial Blood pH 7.350 (7.350-7.450) Arterial Blood Partial Pressure CO2 40.0 mmHg (35.0-45.0) Arterial Blood Partial Pressure O2 65.2 mmHg (75.0-100.0) L Arterial Blood HCO3 21.7 mmol/L (22.0-26.0) L Arterial Blood Oxygen Saturation 90.4 % (95-100) L Arterial Blood Base Excess -3.6 (-2-2) L Scooby Test Positive Urine Color Yellow Urine Appearance Turbid Urine pH 5 (4.5-8.0) Urine Specific [place] 1.015 (1.005-1.035) Urine Protein 3+ (NEGATIVE) H Urine Glucose (UA) Negative (NEGATIVE) Urine Ketones Negative (NEGATIVE) Urine Blood 5+ (NEGATIVE) H Urine Nitrite Negative (NEGATIVE) Urine Bilirubin Negative (NEGATIVE) Urine Urobilinogen Normal MG/DL (0.0-1.0) Urine Leukocyte Esterase 3+ (NEGATIVE) H Urine RBC 20-30 /HPF (0 - 2) H Urine WBC Tntc /HPF (0 - 2) H Urine Squamous Epithelial Cells None /LPF (NONE/OCC) Urine Bacteria Many /HPF (NONE) H CXR: reviewed by me and as read by the radiologist: The heart is enlarged. There is questionable mild interstitial congestion. There are right atelectatic changes. Surgical clips are again demonstrated in the right axilla. The left costophrenic angle is somewhat obscured, but larger left pleural effusion is no longer evident EKG: strip personally reviewed by me: sinis tachycardia 124 bpm, frequent pvcs, left atrial enlargement, non specific st-t- changes Assessment/Plan Problem List: (1) Respiratory failure with hypoxia ICD Codes: J96.91 - Respiratory failure, unspecified with hypoxia SNOMED: 32912483726281184 (2) Acute and chronic respiratory failure ([id number]) ICD Codes: J96.20 - Acute and chr resp failure, unsp w hypoxia or hypercapnia SNOMED: 35927688 (3) Severe sepsis ICD Codes: A41.9 - Sepsis, unspecified organism; R65.20 - Severe sepsis without septic shock SNOMED: 45367058 (4) CRISTÓBAL (acute kidney injury) ICD Codes: N17.9 - Acute kidney failure, unspecified SNOMED: 97907019, 3994784, 013100140 (5) UTI (urinary tract infection) ICD Codes: N39.0 - Urinary tract infection, site not specified SNOMED: 84130463, 40219664, 616902788 (6) Hyponatremia ICD Codes: E87.1 - Hypo-osmolality and hyponatremia SNOMED: 10874504 (7) COPD (chronic obstructive pulmonary disease) ICD Codes: J44.9 - Chronic obstructive pulmonary disease, unspecified SNOMED: 81632063 (8) Anemia ICD Codes: D64.9 - Anemia, unspecified SNOMED: 606349400 (9) Anxiety ICD Codes: F41.9 - Anxiety disorder, unspecified SNOMED: 46320559 (10) Hypertension ICD Codes: I10 - Essential (primary) hypertension SNOMED: 49260516 (11) History of breast cancer ICD Codes: Z85.3 - Personal history of malignant neoplasm of breast SNOMED: 290546825 (12) Diastolic CHF ICD Codes: I50.30 - Unspecified diastolic (congestive) heart failure SNOMED: 45049897, 834374841 (13) Hypercholesteremia ICD Codes: E78.00 - Pure hypercholesterolemia, unspecified SNOMED: 75957995 (14) Protein-calorie malnutrition, mild ICD Codes: E44.1 - Mild protein-calorie malnutrition SNOMED: 76066704 Status: other - critical Assessment/Plan: 78-year-old female with PMHx of COPD on 2L O2, HTN, diastolic CHF, chronic, osteoporosis, IBS-C, DDD, anemia and UTI sent from SNF for fever, lethargy, and congestion. #Severe sepsis/ septic shock secondary to pneumonia, ? aspiration ?HCAP vs. UTI #Acute on chronic hypoxic respiratory failure- responding to non invasive positive pressure ventilation #CRISTÓBAL- prerenal #diastolic CHF, possible acute exacerbation, however on exam, she is euvolemic #Hyponatremia- hypovolemic #COPD on home O2, doubt exacerbation #HTN, HLD #Normocytic Anemia- stable #Anxiety/depression #Mild protein calorie malnutrition -s/p 1L NS in the ER, will infuse another 1 L ns, and reevaluate. clinically very dry and hypovolemic -Broad spectrum antibiotics: Zosyn, Vancomycin and Azithromycin. Renal dose. Previous urine cultures only growing yeast. Will consider adding fluconazole. -continue bipap, titrate to keep SpO2 >90% -ID and pulmonary consults -Repeat Echocardiogram - Duo-Nebs Q6hr PRN SOB/Wheezing - continue home Singulair -Recheck serum sodium in 6 hours to avoid overcorrection -Monitor renal function, insert shi, if cr without improvement, renal consult - hold ACEi - hold Amlodipine 10mg PO daily - hold stain and ASA while npo - hold lyrica 75mg PO BID - hold Lexapro 20mg Po daily - hold Colace 100mg Po BID - hold simethecone 125mg PO TID #Goals of care - DNR/DNI, POLST reviewed FENPPx Fluids: 1 L bolus, reassess Diet: NPO DVTPPx: Heparin SBQ q12 GI PPX: PPI IV PT/OT: pending Code status: DNR/DNI, per polst Dispo: Back to SNF pending clinical course 45 minutes critical care time spent on this encounter. This critical care time included obtaining a history, examining the patient, pulse oximetry, ordering and reviewing studies, ordering treatments, evaluating response to treatment and updating management plan as needed, frequent reassessment and discussion with other providers as well as arranging for ultimate disposition. This critical to care time was performed to assess and manage the high probability of life-threatening deterioration that could result in multiorgan failure. An additional 31 minutes spent on chart review. D/w RN, ED attending, general surgery: Dr. Orellana, pulmonary: DR. Lerma, ID : Dr. Grady. . Philipp Moreau M.D. Mar 30, 2019 08:45
--- NOTE | 2019-03-30 09:20 | Consultation ---
History of Present Illness General Date patient seen: Mar 31, 2019 Time patient seen: 14:21 Chief Complaint: Altered Level of Consciousness Present Illness HPI 78-year-old female with PMHx of COPD on 2L O2, HTN, HFpEF, osteoporosis, IBS-C, DDD, Anemia, and UTI presented for evaluation of altered level of consciousness , fever, congestion and hypoxia from SNF ([facility]). Patient cannot provide any history due to being lethargic. Information gathered from medical chart and speaking to ED physician. According to EMS, she was found to be altered approximately 4 hours prior to ER presentation. She was tachypneic and placed on nonrebreather on their evaluation and only improved to 88%. She remained hypoxic on route, tachycardic and tachypneic. Allergies: Coded Allergies: [place] (Unverified Allergy, Mild, upset stomach, 02/10/19) TOMATO (Unverified Allergy, Mild, upset stomach, 02/10/19) TETRACYCLINE (Unverified Allergy, Unknown, 07/24/14) Medication History Scheduled Amlodipine Besylate* (Amlodipine Besylate*), 10 MG ORAL DAILY, (Reported) Aspirin Ec* (Aspirin Ec*), 81 MG ORAL DAILY, (Reported) Aspirin* (Aspirin*), 81 MG ORAL DAILY, (Reported) Calcium Carbonate/Vitamin D3 (Os-Igor 500+D3 Caplet), 1 EACH PO DAILY, (Reported) Docusate Sodium* (Colace*), 100 MG ORAL BID, (Reported) Escitalopram Oxalate* (Lexapro*), 20 MG ORAL DAILY, (Reported) Escitalopram Oxalate* (Lexapro*), 20 MG ORAL DAILY, (Reported) Ferrous Sulfate* (Ferrous Sulfate*), 325 MG ORAL DAILY, (Reported) Fluticasone Propionate (Flovent Hfa), 2 PUFFS INH DAILY, (Reported) Fluticasone Propionate* (Fluticasone Propionate*), 1 SPRAY NASAL DAILY, ( Reported) Gabapentin* (Gabapentin*), 300 MG ORAL THREE TIMES A DAY, (Reported) Hyoscyamine Sulfate* (Levsin-Sl*), 0.125 MG SL TID, (Reported) Lactobacillus Acidophilus (Acidophilus), 1 EACH PO BID, (Reported) Linaclotide (Linzess), 290 MCG PO ACBREAKFAST, (Reported) Linaclotide (Linzess), 290 MCG PO DAILY, (Reported) Lisinopril (Lisinopril*), 20 MG ORAL DAILY, (Reported) Magnesium Hydroxide* (Milk Of Magnesia*), 30 ML ORAL DAILY, (Reported) Magnesium Oxide (Magox 400), 200 MG ORAL DAILY, (Reported) Montelukast Sodium* (Montelukast Sodium*), 10 MG ORAL DAILY, (Reported) Na Phos,M-B/Na Phos,Di-Ba* (Fleet Enema*), 133 ML RECTAL DAILY, (Reported) Pantoprazole* (Protonix*), 40 MG ORAL DAILY, (Reported) Polyethylene Glycol 3350* (Miralax*), 17 GM ORAL DAILY, (Reported) Pregabalin* (Lyrica*), 75 MG ORAL BID, (Reported) Pregabalin* (Lyrica*), 75 MG ORAL THREE TIMES A DAY, (Reported) Ranitidine Hcl (Ranitidine Hcl), 75 MG PO BID, (Reported) Rosuvastatin Calcium* (Crestor*), 20 MG ORAL DAILY, (Reported) Simethicone (Simethicone), 125 MG PO TID, (Reported) [Bevespi Aerosphere ], 2 PUFFS INH BID, (Reported) Scheduled PRN Acetaminophen* (Acetaminophen 325MG Tablet*), 650 MG ORAL Q4H PRN for Pain Scale (3-5), (Reported) Acetylcysteine* (Acetylcysteine*), 200 MG HHN Q4HR PRN for CONGESTION, (Reported ) Benzonatate* (Tessalon Perle*), 100 MG ORAL THREE TIMES A DAY PRN for For Cough, (Reported) Bisacodyl (Dulcolax), 10 MG RC PRN PRN for Constipation, (Reported) Clonazepam* (Klonopin*), 0.5 MG ORAL BID PRN for For Anxiety, (Reported) Dicyclomine Hcl* (Dicyclomine Hcl*), 10 MG ORAL QID PRN for For Pain, (Reported) Guaifenesin/Codeine Phos* (Robitussin Ac*), 20 ML ORAL Q8HR PRN for For Cough, ( Reported) Ipratropium Mclaughlin 0.5MG/2.5ML (Ipratropium Mclaughlin 0.5MG/2.5ML), 0.5 MG HHN Q6H PRN for Shortness of Breath, (Reported) Levalbuterol Hcl (Xopenex*), 0.63 MG HHN Q6H PRN for Shortness of Breath, ( Reported) Lorazepam* (Lorazepam*), 0.5 MG ORAL BID PRN for For Anxiety, (Reported) Melatonin (Melatonin), 3 MG ORAL BEDTIME PRN for INSOMNIA, (Reported) Melatonin (Melatonin), 3 MG ORAL BEDTIME PRN for Insomnia, (Reported) Na Phos,M-B/Na Phos,Di-Ba* (Fleet Enema*), 133 ML RECTAL DAILY PRN for Constipation, (Reported) Ondansetron* (Zofran*), 4 MG ORAL Q4HR PRN for Nausea & Vomiting, (Reported) Oxycodone Hcl Ir* (Roxicodone Ir*), 5 MG ORAL Q6H PRN for For Pain, (Reported) [Magic Mouthwash ], 15 ML PO Q4HR PRN for For Pain, (Reported) [Mylanta ], 20 ML PO Q4HR PRN for INDIGESTION, (Reported) Miscellaneous Medications Docusate Sodium (Dulcolax Stool Softener), 100 MG PO, (Reported) Magnesium Oxide (Mag-Oxide), 400 MG PO, (Reported) Multivitamin (Multivitamins), 1 EACH PO, (Reported) Patient History Healthcare decision maker Resuscitation status Advanced Directive on File Review of Systems Constitutional: Reports: no symptoms Eye: Reports: no symptoms ENT: Reports: no symptoms Respiratory: Reports: shortness of breath Cardiovascular: Reports: no symptoms Gastrointestinal: Reports: no symptoms Genitourinary: Reports: no symptoms Musculoskeletal: Reports: no symptoms Skin: Reports: no symptoms Psychiatric: Reports: no symptoms Neurological: Reports: no symptoms Endocrine: Reports: no symptoms Hematologic/Lymphatic: Reports: no symptoms Physical Exam General Appearance: lethargic, confused, mild distress Lines, tubes and drains: peripheral HEENT: normocephalic, atraumatic, anicteric, mucous membranes moist, PERRL Neck: non-tender, normal alignment, supple, normal inspection Respiratory/Chest: chest wall non-tender, accessory muscle use, crackles/rales , rhonchi - bilaterally Cardiovascular/Chest: normal peripheral pulses, normal rate, regular rhythm Abdomen: normal bowel sounds, non tender, soft, no organomegaly, no mass Extremities: normal range of motion, non-tender, normal inspection, no calf tenderness, normal capillary refill, non-pitting Skin Exam: normal pigmentation, warm/dry, cyanotic 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, no motor/sensory deficits Last 24 Hour Vital Signs Date Time Temp Pulse Resp B/P (MAP) Pulse Ox O2 Delivery O2 Flow Rate FiO2 03/30/19 08:50 101 20 96 Facial 30 03/30/19 08:40 97.2 118 19 108/53 92 Bi-pap 30 03/30/19 08:00 118 19 Bi-pap 30 03/30/19 07:35 110 20 97 Facial 30 03/30/19 05:01 116 22 97 Facial 30 03/30/19 04:33 98.8 122 20 104/45 98 10.0 30 03/30/19 04:33 122 20 10.0 30 03/30/19 04:27 122 20 98 Bi-Pap 21 03/30/19 04:27 122 20 98 Facial 30 03/30/19 04:02 98.8 120 16 104/45 (64) 80 Simple Mask 10.0 Laboratory Tests Test 03/30/19 04:14 03/30/19 04:28 03/30/19 04:50 White Blood Count 21.2 K/UL (4.8-10.8) H Red Blood Count 3.46 M/UL (4.20-5.40) L Hemoglobin 10.3 G/DL (12.0-16.0) L Hematocrit 31.5 % (37.0-47.0) L Mean Corpuscular Volume 91 FL (80-99) Mean Corpuscular Hemoglobin 29.7 PG (27.0-31.0) Mean Corpuscular Hemoglobin Concent 32.7 G/DL (32.0-36.0) Red Cell Distribution Width 14.2 % (11.6-14.8) Platelet Count 198 K/UL (150-450) Mean Platelet Volume 5.8 FL (6.5-10.1) L Neutrophils (%) (Auto) % (45.0-75.0) Lymphocytes (%) (Auto) % (20.0-45.0) Monocytes (%) (Auto) % (1.0-10.0) Eosinophils (%) (Auto) % (0.0-3.0) Basophils (%) (Auto) % (0.0-2.0) Differential Total Cells Counted 100 Neutrophils % (Manual) 84 % (45-75) H Lymphocytes % (Manual) 10 % (20-45) L Monocytes % (Manual) 6 % (1-10) Eosinophils % (Manual) 0 % (0-3) Basophils % (Manual) 0 % (0-2) Band Neutrophils 0 % (0-8) Platelet Estimate Adequate Platelet Morphology Normal Sodium Level 127 MMOL/L (136-145) L Potassium Level 4.3 MMOL/L (3.5-5.1) Chloride Level 94 MMOL/L (98-107) L Carbon Dioxide Level 28 MMOL/L (21-32) Anion Gap 5 mmol/L (5-15) Blood Urea Nitrogen 48 mg/dL (7-18) H Creatinine 2.2 MG/DL (0.55-1.30) H Estimat Glomerular Filtration Rate mL/min (>60) Glucose Level 125 MG/DL (74-106) H Lactic Acid Level 1.80 mmol/L (0.4-2.0) Calcium Level 8.8 MG/DL (8.5-10.1) Total Bilirubin 0.5 MG/DL (0.2-1.0) Aspartate Amino Transf (AST/SGOT) 20 U/L (15-37) Alanine Aminotransferase (ALT/SGPT) 30 U/L (12-78) Alkaline Phosphatase 100 U/L (46-116) Total Creatine Kinase 30 U/L (26-308) Creatine Kinase MB 0.5 NG/ML (0.0-3.6) Creatine Kinase MB Relative Index 1.6 Troponin I 0.000 ng/mL (0.000-0.056) Pro-B-Type Natriuretic Peptide 3011 pg/mL (0-125) H Total Protein 7.0 G/DL (6.4-8.2) Albumin 3.0 G/DL (3.4-5.0) L Globulin 4.0 g/dL Albumin/Globulin Ratio 0.8 (1.0-2.7) L Arterial Blood pH 7.350 (7.350-7.450) Arterial Blood Partial Pressure CO2 40.0 mmHg (35.0-45.0) Arterial Blood Partial Pressure O2 65.2 mmHg (75.0-100.0) L Arterial Blood HCO3 21.7 mmol/L (22.0-26.0) L Arterial Blood Oxygen Saturation 90.4 % (95-100) L Arterial Blood Base Excess -3.6 (-2-2) L Scooby Test Positive Urine Color Yellow Urine Appearance Turbid Urine pH 5 (4.5-8.0) Urine Specific [place] 1.015 (1.005-1.035) Urine Protein 3+ (NEGATIVE) H Urine Glucose (UA) Negative (NEGATIVE) Urine Ketones Negative (NEGATIVE) Urine Blood 5+ (NEGATIVE) H Urine Nitrite Negative (NEGATIVE) Urine Bilirubin Negative (NEGATIVE) Urine Urobilinogen Normal MG/DL (0.0-1.0) Urine Leukocyte Esterase 3+ (NEGATIVE) H Urine RBC 20-30 /HPF (0 - 2) H Urine WBC Tntc /HPF (0 - 2) H Urine Squamous Epithelial Cells None /LPF (NONE/OCC) Urine Bacteria Many /HPF (NONE) H Microbiology Date/Time Source Procedure Growth Status 03/30/19 06:00 Rectum Received Height (Feet): 5 Height (Inches): 4.00 Weight (Pounds): 187 Medications Current Medications Medications (Trade) Dose Ordered Sig/Wilner Route PRN Reason Start Time Stop Time Status Last Admin Dose Admin Azithromycin 500 mg/Sodium Chloride 275 ml @ 275 mls/hr Q24H IV 03/30/19 11:00 04/06/19 10:59 Heparin Sodium (Porcine) (Heparin 5000 units/ml) 5,000 units EVERY 12 HOURS SUBQ 03/30/19 09:30 04/29/19 09:29 Pantoprazole (Protonix) 40 mg EVERY 12 HOURS IVP 03/30/19 10:00 04/29/19 09:59 Piperacillin Sod/ Tazobactam Sod 3.375 gm/Sodium Chloride 110 ml @ 27.5 mls/hr EVERY 12 HOURS IVPB 03/30/19 18:00 04/04/19 17:59 Sodium Chloride 1,000 ml @ 100 mls/hr Q10H IV 03/30/19 09:30 04/29/19 09:29 Sodium Chloride 1,000 ml @ 999 mls/hr Q1H1M ONCE IV 03/30/19 09:15 03/30/19 10:15 03/30/19 09:14 Vancomycin HCl (Vanco rx to dose) 1 ea DAILY PRN MISC Per rx protocol 03/30/19 09:15 04/29/19 09:14 Assessment/Plan Status: stable Assessment/Plan: Assessment/Plan Problem List: (1) Respiratory failure with hypoxia ICD Codes: J96.91 - Respiratory failure, unspecified with hypoxia SNOMED: 71330763814449949 (2) Acute and chronic respiratory failure ([id number]) ICD Codes: J96.20 - Acute and chr resp failure, unsp w hypoxia or hypercapnia SNOMED: 71579286 (3) Severe sepsis ICD Codes: A41.9 - Sepsis, unspecified organism; R65.20 - Severe sepsis without septic shock SNOMED: 84320624 (4) CRISTÓBAL (acute kidney injury) ICD Codes: N17.9 - Acute kidney failure, unspecified SNOMED: 31107332, 2363117, 796770964 (5) UTI (urinary tract infection) ICD Codes: N39.0 - Urinary tract infection, site not specified SNOMED: 03991566, 58458705, 939546730 (6) Hyponatremia ICD Codes: E87.1 - Hypo-osmolality and hyponatremia SNOMED: 14439942 (7) COPD (chronic obstructive pulmonary disease) ICD Codes: J44.9 - Chronic obstructive pulmonary disease, unspecified SNOMED: 87563768 (8) Anemia ICD Codes: D64.9 - Anemia, unspecified SNOMED: 808734983 (9) Anxiety ICD Codes: F41.9 - Anxiety disorder, unspecified SNOMED: 04214187 (10) Hypertension ICD Codes: I10 - Essential (primary) hypertension SNOMED: 31669610 (11) History of breast cancer ICD Codes: Z85.3 - Personal history of malignant neoplasm of breast SNOMED: 341470318 (12) Diastolic CHF ICD Codes: I50.30 - Unspecified diastolic (congestive) heart failure SNOMED: 24221746, 811078873 (13) Hypercholesteremia ICD Codes: E78.00 - Pure hypercholesterolemia, unspecified SNOMED: 30739034 (14) Protein-calorie malnutrition, mild ICD Codes: E44.1 - Mild protein-calorie malnutrition SNOMED: 01465897 Status: other - critical -Echocardiogram -Hold blood pressure medications -Pulmonary toilet -Empiric antibiotics -BiPAP Isiah Barakat MD Mar 30, 2019 09:20
[2019-03-30] MEDS: Pantoprazole Inj IVP SCH ×2 (09:42→21:24)
[2019-03-30] MEDS: Heparin 5000 units/ml inj SUBQ SCH ×2 (09:43→21:25)
[2019-03-30] MEDS: Azithromycin 500 MG in NS 275 ML IV SCH (12:42)
--- NOTE | 2019-03-30 12:57 | Diagnostic Imaging Report ---
Indication: Shortness of breath Technique: One view of the chest Comparison: 02/10/2019 Findings: The heart is enlarged. There is questionable mild interstitial congestion. There are right atelectatic changes. Surgical clips are again demonstrated in the right axilla. The left costophrenic angle is somewhat obscured, but larger left pleural effusion is no longer evident Impression: Cardiomegaly Possible mild interstitial congestion Possible small left pleural effusion
--- NOTE | 2019-03-30 13:23 | Infectious Diseases Prog Note ---
Assessment/Plan Assessment/Plan Full consult to follow: A) 1) sepsis, uti, ? pna, chf, leukocytosis 2) karen, pmh noted, sob, bipap 3) allergies - tetracycline and tomato P) 1) zosyn and vancomycin 2) check cultures, labs and chest x-ray 3) continue per primary team and consultants 4) thank you Subjective Allergies: Coded Allergies: [place] (Unverified Allergy, Mild, upset stomach, 02/10/19) TOMATO (Unverified Allergy, Mild, upset stomach, 02/10/19) TETRACYCLINE (Unverified Allergy, Unknown, 07/24/14) Objective Vital Signs Last 24 Hour Vital Signs Date Time Temp Pulse Resp B/P (MAP) Pulse Ox O2 Delivery O2 Flow Rate FiO2 03/30/19 13:08 102 26 97 Facial 30 03/30/19 11:43 120 03/30/19 11:23 114 19 96 Facial 30 03/30/19 09:15 Bi-pap 03/30/19 09:07 101 03/30/19 08:50 101 20 96 Facial 30 03/30/19 08:40 97.2 118 19 108/53 92 Bi-pap 30 03/30/19 08:00 118 19 Bi-pap 30 03/30/19 07:35 110 20 97 Facial 30 03/30/19 05:01 116 22 97 Facial 30 03/30/19 04:33 98.8 122 20 104/45 98 10.0 30 03/30/19 04:33 122 20 10.0 30 03/30/19 04:27 122 20 98 Bi-Pap 21 03/30/19 04:27 122 20 98 Facial 30 03/30/19 04:02 98.8 120 16 104/45 (64) 80 Simple Mask 10.0 Height (Feet): 5 Height (Inches): 4.00 Weight (Pounds): 135 Microbiology Date/Time Source Procedure Growth Status 03/30/19 06:00 Rectum Received Laboratory Tests Test 03/30/19 04:14 03/30/19 04:28 03/30/19 04:50 White Blood Count 21.2 K/UL (4.8-10.8) H Red Blood Count 3.46 M/UL (4.20-5.40) L Hemoglobin 10.3 G/DL (12.0-16.0) L Hematocrit 31.5 % (37.0-47.0) L Mean Corpuscular Volume 91 FL (80-99) Mean Corpuscular Hemoglobin 29.7 PG (27.0-31.0) Mean Corpuscular Hemoglobin Concent 32.7 G/DL (32.0-36.0) Red Cell Distribution Width 14.2 % (11.6-14.8) Platelet Count 198 K/UL (150-450) Mean Platelet Volume 5.8 FL (6.5-10.1) L Neutrophils (%) (Auto) % (45.0-75.0) Lymphocytes (%) (Auto) % (20.0-45.0) Monocytes (%) (Auto) % (1.0-10.0) Eosinophils (%) (Auto) % (0.0-3.0) Basophils (%) (Auto) % (0.0-2.0) Differential Total Cells Counted 100 Neutrophils % (Manual) 84 % (45-75) H Lymphocytes % (Manual) 10 % (20-45) L Monocytes % (Manual) 6 % (1-10) Eosinophils % (Manual) 0 % (0-3) Basophils % (Manual) 0 % (0-2) Band Neutrophils 0 % (0-8) Platelet Estimate Adequate Platelet Morphology Normal Sodium Level 127 MMOL/L (136-145) L Potassium Level 4.3 MMOL/L (3.5-5.1) Chloride Level 94 MMOL/L (98-107) L Carbon Dioxide Level 28 MMOL/L (21-32) Anion Gap 5 mmol/L (5-15) Blood Urea Nitrogen 48 mg/dL (7-18) H Creatinine 2.2 MG/DL (0.55-1.30) H Estimat Glomerular Filtration Rate mL/min (>60) Glucose Level 125 MG/DL (74-106) H Lactic Acid Level 1.80 mmol/L (0.4-2.0) Calcium Level 8.8 MG/DL (8.5-10.1) Total Bilirubin 0.5 MG/DL (0.2-1.0) Aspartate Amino Transf (AST/SGOT) 20 U/L (15-37) Alanine Aminotransferase (ALT/SGPT) 30 U/L (12-78) Alkaline Phosphatase 100 U/L (46-116) Total Creatine Kinase 30 U/L (26-308) Creatine Kinase MB 0.5 NG/ML (0.0-3.6) Creatine Kinase MB Relative Index 1.6 Troponin I 0.000 ng/mL (0.000-0.056) Pro-B-Type Natriuretic Peptide 3011 pg/mL (0-125) H Total Protein 7.0 G/DL (6.4-8.2) Albumin 3.0 G/DL (3.4-5.0) L Globulin 4.0 g/dL Albumin/Globulin Ratio 0.8 (1.0-2.7) L Arterial Blood pH 7.350 (7.350-7.450) Arterial Blood Partial Pressure CO2 40.0 mmHg (35.0-45.0) Arterial Blood Partial Pressure O2 65.2 mmHg (75.0-100.0) L Arterial Blood HCO3 21.7 mmol/L (22.0-26.0) L Arterial Blood Oxygen Saturation 90.4 % (95-100) L Arterial Blood Base Excess -3.6 (-2-2) L Scooby Test Positive Urine Color Yellow Urine Appearance Turbid Urine pH 5 (4.5-8.0) Urine Specific Jenkins 1.015 (1.005-1.035) Urine Protein 3+ (NEGATIVE) H Urine Glucose (UA) Negative (NEGATIVE) Urine Ketones Negative (NEGATIVE) Urine Blood 5+ (NEGATIVE) H Urine Nitrite Negative (NEGATIVE) Urine Bilirubin Negative (NEGATIVE) Urine Urobilinogen Normal MG/DL (0.0-1.0) Urine Leukocyte Esterase 3+ (NEGATIVE) H Urine RBC 20-30 /HPF (0 - 2) H Urine WBC Tntc /HPF (0 - 2) H Urine Squamous Epithelial Cells None /LPF (NONE/OCC) Urine Bacteria Many /HPF (NONE) H Current Medications Medications (Trade) Dose Ordered Sig/Wilner Route PRN Reason Start Time Stop Time Status Last Admin Dose Admin Azithromycin 500 mg/Sodium Chloride 275 ml @ 275 mls/hr Q24H IV 03/30/19 11:00 04/06/19 10:59 03/30/19 12:42 Heparin Sodium (Porcine) (Heparin 5000 units/ml) 5,000 units EVERY 12 HOURS SUBQ 03/30/19 09:30 04/29/19 09:29 03/30/19 09:43 Pantoprazole (Protonix) 40 mg EVERY 12 HOURS IVP 03/30/19 10:00 04/29/19 09:59 03/30/19 09:42 Piperacillin Sod/ Tazobactam Sod 3.375 gm/Sodium Chloride 110 ml @ 27.5 mls/hr EVERY 12 HOURS IVPB 03/30/19 18:00 04/04/19 17:59 Sodium Chloride 1,000 ml @ 100 mls/hr Q10H IV 03/30/19 09:30 04/29/19 09:29 03/30/19 10:20 Vancomycin HCl (Vanco rx to dose) 1 ea DAILY PRN MISC Per rx protocol 03/30/19 09:15 04/29/19 09:14 Nyasia Grover MD Mar 30, 2019 13:23
--- NOTE | 2019-03-30 13:32 | GI Initial Consult Note ---
History of Present Illness General Date patient seen: Mar 30, 2019 Time patient seen: 13:27 Reason for Hospitalization: Altered Level of Consciousness Referring physician: YAMILKA Reason for Consultation: ANEMIA Present Illness HPI 78-year-old female with a history of COPD, diastolic heart failure, anemia, GERD , hypertension, hyperlipidemia presents for evaluation of altered level of consciousness and hypoxia. Patient cannot provide any significant history due to her clinical condition at this time. According to EMS, from her convalescent home she was found to be altered approximately 4 hours ago. She was tachypneic and placed on nonrebreather on their evaluation and only improved to 88%. She remained hypoxic on route and tachypneic. They noted rhonchials respirations but no cough. She is DNR/DNI and comfort measures according to her POLST form. GI consulted for anemia to rule out any GI bleed. ROS limited, patient presents with altered mental status unable to provide any history at this time. Patient currently on BiPAP. No history of endoscopy or colonoscopy. Labs reviewed; WBC 21, hemoglobin 10.3, hematocrit 31. No transaminitis noted. Home Meds Reported Medications Melatonin (MELATONIN) 3 Mg Tablet, 3 MG ORAL BEDTIME PRN for Insomnia, TAB 03/30/19 Na Phos,M-B/Na Phos,Di-Ba* (FLEET ENEMA*) 133 Ml Enema, 133 ML RECTAL DAILY, ML 0 Refills 03/30/19 Docusate Sodium (Dulcolax Stool Softener) 100 Mg Capsule, 100 MG PO, CAP 03/30/19 Pregabalin* (LYRICA*) 75 Mg Capsule, 75 MG ORAL THREE TIMES A DAY, CAP 03/30/19 Magnesium Oxide (MAG-OXIDE) 400 Mg Tablet, 400 MG PO, TAB 03/30/19 Escitalopram Oxalate* (LEXAPRO*) 20 Mg Tablet, 20 MG ORAL DAILY, TAB 03/30/19 Aspirin* (ASPIRIN*) 81 Mg Tab.chew, 81 MG ORAL DAILY, TAB 03/30/19 Linaclotide (LINZESS) 290 Mcg Capsule, 290 MCG PO DAILY, CAP 03/15/19 Dicyclomine Hcl* (DICYCLOMINE HCL*) 10 Mg Capsule, 10 MG ORAL QID PRN for For Pain, #20 CAP 02/10/19 Fluticasone Propionate (Flovent Hfa) 12 Gm Aer.w.adap, 2 PUFFS INH DAILY, #1 EA 0 Refills 02/10/19 Clonazepam* (KLONOPIN*) 0.5 Mg Tablet, 0.5 MG ORAL BID PRN for For Anxiety, #15 TAB 0 Refills 02/10/19 Hyoscyamine Sulfate* (LEVSIN-SL*) 0.125 Mg Tab.subl, 0.125 MG SL TID, #20 TAB 0 Refills 02/10/19 Acetylcysteine* (ACETYLCYSTEINE*) 200 Mg/1 Ml Vial, 200 MG HHN Q4HR PRN for CONGESTION, VIAL 02/10/19 Ranitidine Hcl (RANITIDINE HCL) 15 Mg/1 Ml Syrup, 75 MG PO BID, ML 02/10/19 Ipratropium [place] 0.5MG/2.5ML (IPRATROPIUM BROMIDE 0.5MG/2.5ML) 0.2 Mg/1 Ml Solution, 0.5 MG HHN Q6H PRN for Shortness of Breath, #28 EA 02/10/19 Melatonin (MELATONIN) 3 Mg Tablet, 3 MG ORAL BEDTIME PRN for INSOMNIA, TAB 02/10/19 Multivitamin (Multivitamins) 1 Each Tablet, 1 EACH PO, TAB 02/10/19 Lorazepam* (LORAZEPAM*) 0.5 Mg Tablet, 0.5 MG ORAL BID PRN for For Anxiety, TAB 02/10/19 Lactobacillus Acidophilus (Acidophilus) 1 Each Tablet, 1 EACH PO BID, TAB 02/10/19 Fluticasone Propionate* (FLUTICASONE PROPIONATE*) 16 Gm Happy.susp, 1 SPRAY NASAL DAILY, EA 02/10/19 Magnesium Oxide (MAGOX 400) 400 Mg Tablet, 200 MG ORAL DAILY, #30 TAB 0 Refills 02/10/19 Linaclotide (LINZESS) 290 Mcg Capsule, 290 MCG PO ACBREAKFAST, CAP 02/10/19 Levalbuterol Hcl (XOPENEX*) 0.63 Mg/3 Ml Vial.neb, 0.63 MG HHN Q6H PRN for Shortness of Breath for 30 Days, VIAL 01/12/19 Oxycodone Hcl Ir* (ROXICODONE IR*) 5 Mg Tablet, 5 MG ORAL Q6H PRN for For Pain, #10 TAB 0 Refills 01/12/19 [Magic Mouthwash ] No Conflict Check, 15 ML PO Q4HR PRN for For Pain 01/12/19 Amlodipine Besylate* (AMLODIPINE BESYLATE*) 10 Mg Tablet, 10 MG ORAL DAILY, TAB 01/12/19 Gabapentin* (GABAPENTIN*) 300 Mg Capsule, 300 MG ORAL THREE TIMES A DAY, CAP 0 Refills 01/12/19 Simethicone (Simethicone) 125 Mg Capsule, 125 MG PO TID, CAP 01/12/19 Rosuvastatin Calcium* (CRESTOR*) 20 Mg Tablet, 20 MG ORAL DAILY, TAB 01/12/19 Guaifenesin/Codeine Phos* (ROBITUSSIN AC*) 118 Ml Liquid, 20 ML ORAL Q8HR PRN for For Cough, #118 ML 0 Refills 01/12/19 Ondansetron* (ZOFRAN*) 4 Mg Tablet, 4 MG ORAL Q4HR PRN for Nausea & Vomiting, TAB 01/12/19 Benzonatate* (TESSALON PERLE*) 100 Mg Capsule, 100 MG ORAL THREE TIMES A DAY PRN for For Cough, PERLE 01/12/19 Acetaminophen* (ACETAMINOPHEN 325MG TABLET*) 325 Mg Tablet, 650 MG ORAL Q4H PRN for Pain Scale (3-5), TAB 01/12/19 [Mylanta ] No Conflict Check, 20 ML PO Q4HR PRN for INDIGESTION 01/12/19 Na Phos,M-B/Na Phos,Di-Ba* (FLEET ENEMA*) 133 Ml Enema, 133 ML RECTAL DAILY PRN for Constipation, ML 0 Refills 01/12/19 Bisacodyl (DULCOLAX) 10 Mg Supp.rect, 10 MG RC PRN PRN for Constipation, SUPP 01/12/19 Magnesium Hydroxide* (MILK OF MAGNESIA*) 400 Mg/5 Ml Oral.susp, 30 ML ORAL DAILY , ML 01/12/19 [Bevespi Aerosphere ] 9MCG/4.8MCG PUFFS No Conflict Check, 2 PUFFS INH BID 01/12/19 Pregabalin* (LYRICA*) 75 Mg Capsule, 75 MG ORAL BID, CAP 01/12/19 Escitalopram Oxalate* (LEXAPRO*) 20 Mg Tablet, 20 MG ORAL DAILY, TAB 01/12/19 Calcium Carbonate/Vitamin D3 (Os-Igor 500+D3 Caplet) 1 Each Tablet, 1 EACH PO DAILY, TAB 01/12/19 Polyethylene Glycol 3350* (MIRALAX*) 17 Gm Powd.pack, 17 GM ORAL DAILY, PACKET 01/12/19 Pantoprazole* (PROTONIX*) 40 Mg Tablet.dr, 40 MG ORAL DAILY, TAB 01/12/19 Ferrous Sulfate* (FERROUS SULFATE*) 325 Mg Tablet, 325 MG ORAL DAILY, #30 TAB 0 Refills 01/13/18 Montelukast Sodium* (MONTELUKAST SODIUM*) 10 Mg Tablet, 10 MG ORAL DAILY, TAB 01/13/18 Aspirin Ec* (ASPIRIN EC*) 81 Mg Tablet.dr, 81 MG ORAL DAILY, TAB 02/15/17 Lisinopril (LISINOPRIL*) 20 Mg Tablet, 20 MG ORAL DAILY, TAB 02/15/17 Docusate Sodium* (COLACE*) 100 Mg Capsule, 100 MG ORAL BID, CAP 07/24/14 Med list reviewed/reconciled: Yes Allergies: Coded Allergies: [place] (Unverified Allergy, Mild, upset stomach, 02/10/19) TOMATO (Unverified Allergy, Mild, upset stomach, 02/10/19) TETRACYCLINE (Unverified Allergy, Unknown, 07/24/14) Patient History Limited by: medical condition History Provided By: Medical Record PMH Narrative PMH: CHF, COPD, anemia, hypertension, hyperlipidemia PSH: Reviewed in chart Allergies: Tetracycline Social Hx: Unable to obtain from patient Allergies: Coded Allergies: Mercedita (Unverified Allergy, Mild, upset stomach, 02/10/19) TOMATO (Unverified Allergy, Mild, upset stomach, 02/10/19) TETRACYCLINE (Unverified Allergy, Unknown, 07/24/14) Nursing Documentation-PMH Hx Cardiac Problems: Yes Hx Hypertension: Yes Hx Asthma: Yes Hx COPD: Yes Hx Diabetes: Yes Hx Cancer: Yes Hx Gastrointestinal Problems: Yes Hx Neurological Problems: No Social History: Denies: smoking, alcohol use, drug use, other Review of Systems All Other Systems: limited Physical Exam Vital Signs Date Time Temp Pulse Resp B/P (MAP) Pulse Ox O2 Delivery O2 Flow Rate FiO2 03/30/19 04:02 98.8 120 16 104/45 (64) 80 Simple Mask 10.0 03/30/19 04:27 30 Sp02 EP Interpretation: reviewed Labs Laboratory Tests Test 03/30/19 04:14 03/30/19 04:28 03/30/19 04:50 White Blood Count 21.2 K/UL (4.8-10.8) H Red Blood Count 3.46 M/UL (4.20-5.40) L Hemoglobin 10.3 G/DL (12.0-16.0) L Hematocrit 31.5 % (37.0-47.0) L Mean Corpuscular Volume 91 FL (80-99) Mean Corpuscular Hemoglobin 29.7 PG (27.0-31.0) Mean Corpuscular Hemoglobin Concent 32.7 G/DL (32.0-36.0) Red Cell Distribution Width 14.2 % (11.6-14.8) Platelet Count 198 K/UL (150-450) Mean Platelet Volume 5.8 FL (6.5-10.1) L Neutrophils (%) (Auto) % (45.0-75.0) Lymphocytes (%) (Auto) % (20.0-45.0) Monocytes (%) (Auto) % (1.0-10.0) Eosinophils (%) (Auto) % (0.0-3.0) Basophils (%) (Auto) % (0.0-2.0) Differential Total Cells Counted 100 Neutrophils % (Manual) 84 % (45-75) H Lymphocytes % (Manual) 10 % (20-45) L Monocytes % (Manual) 6 % (1-10) Eosinophils % (Manual) 0 % (0-3) Basophils % (Manual) 0 % (0-2) Band Neutrophils 0 % (0-8) Platelet Estimate Adequate Platelet Morphology Normal Sodium Level 127 MMOL/L (136-145) L Potassium Level 4.3 MMOL/L (3.5-5.1) Chloride Level 94 MMOL/L (98-107) L Carbon Dioxide Level 28 MMOL/L (21-32) Anion Gap 5 mmol/L (5-15) Blood Urea Nitrogen 48 mg/dL (7-18) H Creatinine 2.2 MG/DL (0.55-1.30) H Estimat Glomerular Filtration Rate mL/min (>60) Glucose Level 125 MG/DL (74-106) H Lactic Acid Level 1.80 mmol/L (0.4-2.0) Calcium Level 8.8 MG/DL (8.5-10.1) Total Bilirubin 0.5 MG/DL (0.2-1.0) Aspartate Amino Transf (AST/SGOT) 20 U/L (15-37) Alanine Aminotransferase (ALT/SGPT) 30 U/L (12-78) Alkaline Phosphatase 100 U/L (46-116) Total Creatine Kinase 30 U/L (26-308) Creatine Kinase MB 0.5 NG/ML (0.0-3.6) Creatine Kinase MB Relative Index 1.6 Troponin I 0.000 ng/mL (0.000-0.056) Pro-B-Type Natriuretic Peptide 3011 pg/mL (0-125) H Total Protein 7.0 G/DL (6.4-8.2) Albumin 3.0 G/DL (3.4-5.0) L Globulin 4.0 g/dL Albumin/Globulin Ratio 0.8 (1.0-2.7) L Arterial Blood pH 7.350 (7.350-7.450) Arterial Blood Partial Pressure CO2 40.0 mmHg (35.0-45.0) Arterial Blood Partial Pressure O2 65.2 mmHg (75.0-100.0) L Arterial Blood HCO3 21.7 mmol/L (22.0-26.0) L Arterial Blood Oxygen Saturation 90.4 % (95-100) L Arterial Blood Base Excess -3.6 (-2-2) L Scooby Test Positive Urine Color Yellow Urine Appearance Turbid Urine pH 5 (4.5-8.0) Urine Specific [place] 1.015 (1.005-1.035) Urine Protein 3+ (NEGATIVE) H Urine Glucose (UA) Negative (NEGATIVE) Urine Ketones Negative (NEGATIVE) Urine Blood 5+ (NEGATIVE) H Urine Nitrite Negative (NEGATIVE) Urine Bilirubin Negative (NEGATIVE) Urine Urobilinogen Normal MG/DL (0.0-1.0) Urine Leukocyte Esterase 3+ (NEGATIVE) H Urine RBC 20-30 /HPF (0 - 2) H Urine WBC Tntc /HPF (0 - 2) H Urine Squamous Epithelial Cells None /LPF (NONE/OCC) Urine Bacteria Many /HPF (NONE) H General Appearance: well appearing, no apparent distress Head: normocephalic EENT: normal ENT inspection Neck: supple Respiratory: normal breath sounds Cardiovascular: normal rate Gastrointestinal: soft Skin: normal inspection, normal color, warm/dry Lymphatic: normal inspection, no adenopathy Current Medications Current Medications Medications (Trade) Dose Ordered Sig/Wilner Route PRN Reason Start Time Stop Time Status Last Admin Dose Admin Azithromycin 500 mg/Sodium Chloride 275 ml @ 275 mls/hr Q24H IV 03/30/19 11:00 04/06/19 10:59 03/30/19 12:42 Heparin Sodium (Porcine) (Heparin 5000 units/ml) 5,000 units EVERY 12 HOURS SUBQ 03/30/19 09:30 04/29/19 09:29 03/30/19 09:43 Pantoprazole (Protonix) 40 mg EVERY 12 HOURS IVP 03/30/19 10:00 04/29/19 09:59 03/30/19 09:42 Piperacillin Sod/ Tazobactam Sod 3.375 gm/Sodium Chloride 110 ml @ 27.5 mls/hr EVERY 12 HOURS IVPB 03/30/19 18:00 04/04/19 17:59 Sodium Chloride 1,000 ml @ 100 mls/hr Q10H IV 03/30/19 09:30 04/29/19 09:29 03/30/19 10:20 Vancomycin HCl (Vanco rx to dose) 1 ea DAILY PRN MISC Per rx protocol 03/30/19 09:15 04/29/19 09:14 GI: Plan Problems: (1) GERD (gastroesophageal reflux disease) (2) Anemia (3) Protein-calorie malnutrition, mild (4) Severe sepsis Plan History of endoscopy and colonoscopy on February 11, 2019 noted with gastritis and one colonic polyp. No plan for any GI procedures at this time given recent history of procedure and unstable respiratory status. Obtain anemia work-up Fecal occult blood stool to rule out any GI bleed PPI daily Monitor H&H, PRN transfusions Antibiotics per infectious diseases We will follow on a daily basis with additional recommendations. Discussed with Dr. Arshad. Thank you for this patient referral, we will follow. The patient was seen and examined at bedside and all new and available data was reviewed in the patients chart. I agree with the above findings, impression and plan. (Patient seen earlier today. Signature stamp does not reflect patient encounter time.). - KapilMD Nina Phan,[facility] PROPULSION GENERATOR REPAIRER Mar 30, 2019 13:32
[2019-03-30] MEDS ORDERED: Piperacillin/Tazobactam 2.25 GM in D5W 55 ML IVPB SCH (14:00)
[2019-03-30 15:59] LABS: ANION GAP 6 mmol/L (5-15); BLOOD UREA NITROGEN 39 mg/dL (7-18); CALCIUM 8.2 MG/DL (8.5-10.1); CARBON DIOXIDE 24 MMOL/L (21-32); CHLORIDE 102 MMOL/L (98-107); CREATININE 1.5 MG/DL (0.55-1.30); POTASSIUM 4.2 MMOL/L (3.5-5.1); SODIUM 131 MMOL/L (136-145)
--- NOTE | 2019-03-30 17:54 | Consultation ---
History of Present Illness General Date patient seen: Mar 30, 2019 Reason for Hospitalization: Altered Level of Consciousness Present Illness HPI 78-year-old female with a history of COPD, diastolic heart failure, anemia, GERD , hypertension, hyperlipidemia presents for evaluation of altered level of consciousness and hypoxia. Patient cannot provide any significant history due to her clinical condition at this time. According to EMS, from her convalescent home she was found to be altered approximately 4 hours ago prior to arrival. She was tachypneic and placed on nonrebreather on their evaluation and only improved to 88%. She remained hypoxic on route and tachypneic. They noted rhonchorous respirations but no cough. She is DNR/DNI and comfort measures according to her POLST form. Significant leukocytosis and abnormal labs on admission. multiple wounds requiring care Surgery called to evaluate and assist with care Allergies: Coded Allergies: [place] (Unverified Allergy, Mild, upset stomach, 02/10/19) TOMATO (Unverified Allergy, Mild, upset stomach, 02/10/19) TETRACYCLINE (Unverified Allergy, Unknown, 07/24/14) Medication History Scheduled Amlodipine Besylate* (Amlodipine Besylate*), 10 MG ORAL DAILY, (Reported) Aspirin Ec* (Aspirin Ec*), 81 MG ORAL DAILY, (Reported) Aspirin* (Aspirin*), 81 MG ORAL DAILY, (Reported) Calcium Carbonate/Vitamin D3 (Os-Igor 500+D3 Caplet), 1 EACH PO DAILY, (Reported) Docusate Sodium* (Colace*), 100 MG ORAL BID, (Reported) Escitalopram Oxalate* (Lexapro*), 20 MG ORAL DAILY, (Reported) Escitalopram Oxalate* (Lexapro*), 20 MG ORAL DAILY, (Reported) Ferrous Sulfate* (Ferrous Sulfate*), 325 MG ORAL DAILY, (Reported) Fluticasone Propionate (Flovent Hfa), 2 PUFFS INH DAILY, (Reported) Fluticasone Propionate* (Fluticasone Propionate*), 1 SPRAY NASAL DAILY, ( Reported) Gabapentin* (Gabapentin*), 300 MG ORAL THREE TIMES A DAY, (Reported) Hyoscyamine Sulfate* (Levsin-Sl*), 0.125 MG SL TID, (Reported) Lactobacillus Acidophilus (Acidophilus), 1 EACH PO BID, (Reported) Linaclotide (Linzess), 290 MCG PO ACBREAKFAST, (Reported) Linaclotide (Linzess), 290 MCG PO DAILY, (Reported) Lisinopril (Lisinopril*), 20 MG ORAL DAILY, (Reported) Magnesium Hydroxide* (Milk Of Magnesia*), 30 ML ORAL DAILY, (Reported) Magnesium Oxide (Magox 400), 200 MG ORAL DAILY, (Reported) Montelukast Sodium* (Montelukast Sodium*), 10 MG ORAL DAILY, (Reported) Na Phos,M-B/Na Phos,Di-Ba* (Fleet Enema*), 133 ML RECTAL DAILY, (Reported) Pantoprazole* (Protonix*), 40 MG ORAL DAILY, (Reported) Polyethylene Glycol 3350* (Miralax*), 17 GM ORAL DAILY, (Reported) Pregabalin* (Lyrica*), 75 MG ORAL BID, (Reported) Pregabalin* (Lyrica*), 75 MG ORAL THREE TIMES A DAY, (Reported) Ranitidine Hcl (Ranitidine Hcl), 75 MG PO BID, (Reported) Rosuvastatin Calcium* (Crestor*), 20 MG ORAL DAILY, (Reported) Simethicone (Simethicone), 125 MG PO TID, (Reported) [Bevespi Aerosphere ], 2 PUFFS INH BID, (Reported) Scheduled PRN Acetaminophen* (Acetaminophen 325MG Tablet*), 650 MG ORAL Q4H PRN for Pain Scale (3-5), (Reported) Acetylcysteine* (Acetylcysteine*), 200 MG HHN Q4HR PRN for CONGESTION, (Reported ) Benzonatate* (Tessalon Perle*), 100 MG ORAL THREE TIMES A DAY PRN for For Cough, (Reported) Bisacodyl (Dulcolax), 10 MG RC PRN PRN for Constipation, (Reported) Clonazepam* (Klonopin*), 0.5 MG ORAL BID PRN for For Anxiety, (Reported) Dicyclomine Hcl* (Dicyclomine Hcl*), 10 MG ORAL QID PRN for For Pain, (Reported) Guaifenesin/Codeine Phos* (Robitussin Ac*), 20 ML ORAL Q8HR PRN for For Cough, ( Reported) Ipratropium [place] 0.5MG/2.5ML (Ipratropium [place] 0.5MG/2.5ML), 0.5 MG HHN Q6H PRN for Shortness of Breath, (Reported) Levalbuterol Hcl (Xopenex*), 0.63 MG HHN Q6H PRN for Shortness of Breath, ( Reported) Lorazepam* (Lorazepam*), 0.5 MG ORAL BID PRN for For Anxiety, (Reported) Melatonin (Melatonin), 3 MG ORAL BEDTIME PRN for INSOMNIA, (Reported) Melatonin (Melatonin), 3 MG ORAL BEDTIME PRN for Insomnia, (Reported) Na Phos,M-B/Na Phos,Di-Ba* (Fleet Enema*), 133 ML RECTAL DAILY PRN for Constipation, (Reported) Ondansetron* (Zofran*), 4 MG ORAL Q4HR PRN for Nausea & Vomiting, (Reported) Oxycodone Hcl Ir* (Roxicodone Ir*), 5 MG ORAL Q6H PRN for For Pain, (Reported) [Magic Mouthwash ], 15 ML PO Q4HR PRN for For Pain, (Reported) [Mylanta ], 20 ML PO Q4HR PRN for INDIGESTION, (Reported) Miscellaneous Medications Docusate Sodium (Dulcolax Stool Softener), 100 MG PO, (Reported) Magnesium Oxide (Mag-Oxide), 400 MG PO, (Reported) Multivitamin (Multivitamins), 1 EACH PO, (Reported) Patient History Limited by: medical condition History Provided By: Medical Record, PMD Healthcare decision maker Resuscitation status Do Not Resuscitate Advanced Directive on File Past Medical/Surgical History Past Medical/Surgical History: (1) Cough (2) Dysphagia (3) SOB (shortness of breath) (4) Pleural effusion (5) Renal failure (6) Lumbar spondylosis (7) Allergic rhinitis (8) Cervical radiculopathy (9) DDD (degenerative disc disease), cervical (10) DDD (degenerative disc disease), lumbar (11) Troponin level elevated (12) Collapse of left lung (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 (14) Respiratory failure requiring intubation (15) Limited mobility (16) Aspiration pneumonia (17) Tracheobronchitis (18) Acute metabolic encephalopathy (19) Fibromyalgia (20) Cervical spondylosis (21) Pneumonia (22) Lumbar radiculopathy (23) Osteoporosis (24) Chronic respiratory failure with hypoxia (25) Constipation (26) UTI (urinary tract infection) (27) CRISTÓBAL (acute kidney injury) (28) Diastolic CHF (29) Sepsis with acute hypoxic respiratory failure (30) COPD (chronic obstructive pulmonary disease) (31) Anemia (32) Anxiety (33) Hypercholesteremia (34) Hyponatremia (35) Acute and chronic respiratory failure (dsoar-af-rqefiuo) (36) Hypertension (37) Severe sepsis (38) History of breast cancer (39) Respiratory failure with hypoxia (40) Protein-calorie malnutrition, mild (41) GERD (gastroesophageal reflux disease) Review of Systems Review of Symptoms Unable to obtain from patient Physical Exam Physical Exam General appearance: appears stated age Head: Normocephalic, without obvious abnormality, atraumatic Eyes: conjunctivae/corneas clear. PERRL, EOM's intact. Fundi benign Throat: Lips, mucosa, and tongue normal. Teeth and gums normal Neck: supple, symmetrical, trachea midline, no adenopathy, thyroid: not enlarged, symmetric, no tenderness/mass/nodules, no carotid bruit and no JVD Lungs: clear to auscultation bilaterally Heart: regular rate and rhythm, S1, S2 normal, no murmur, click, rub or gallop Abdomen: soft, non-tender. Bowel sounds normal. No masses, no organomegaly Extremities: extremities normal, atraumatic, no cyanosis or edema Pulses: 2+ and symmetric Skin: Skin color, texture, turgor normal. No rashes or lesions Neurologic: Grossly normal Last 24 Hour Vital Signs Date Time Temp Pulse Resp B/P (MAP) Pulse Ox O2 Delivery O2 Flow Rate FiO2 03/30/19 16:37 130 24 96 Facial 30 03/30/19 16:00 Bi-pap 03/30/19 16:00 97.5 125 26 103/58 (73) 94 03/30/19 16:00 127 03/30/19 16:00 30 03/30/19 15:00 121 22 96 Facial 30 03/30/19 13:08 102 26 97 Facial 30 03/30/19 12:00 97.3 115 20 94/55 (68) 94 03/30/19 12:00 30 03/30/19 12:00 Bi-pap 03/30/19 11:43 120 03/30/19 11:23 114 19 96 Facial 30 03/30/19 10:20 101/51 (68) 03/30/19 09:15 Bi-pap 03/30/19 09:07 101 03/30/19 08:50 101 20 96 Facial 30 03/30/19 08:45 97.3 102 19 86/45 (59) 96 03/30/19 08:40 97.2 118 19 108/53 92 Bi-pap 30 03/30/19 08:00 118 19 Bi-pap 30 03/30/19 07:35 110 20 97 Facial 30 03/30/19 05:01 116 22 97 Facial 30 03/30/19 04:33 98.8 122 20 104/45 98 10.0 30 03/30/19 04:33 122 20 10.0 30 03/30/19 04:27 122 20 98 Bi-Pap 21 03/30/19 04:27 122 20 98 Facial 30 03/30/19 04:02 98.8 120 16 104/45 (64) 80 Simple Mask 10.0 Laboratory Tests Test 03/30/19 04:14 03/30/19 04:28 03/30/19 04:50 03/30/19 15:05 White Blood Count 21.2 K/UL (4.8-10.8) H Red Blood Count 3.46 M/UL (4.20-5.40) L Hemoglobin 10.3 G/DL (12.0-16.0) L Hematocrit 31.5 % (37.0-47.0) L Mean Corpuscular Volume 91 FL (80-99) Mean Corpuscular Hemoglobin 29.7 PG (27.0-31.0) Mean Corpuscular Hemoglobin Concent 32.7 G/DL (32.0-36.0) Red Cell Distribution Width 14.2 % (11.6-14.8) Platelet Count 198 K/UL (150-450) Mean Platelet Volume 5.8 FL (6.5-10.1) L Neutrophils (%) (Auto) % (45.0-75.0) Lymphocytes (%) (Auto) % (20.0-45.0) Monocytes (%) (Auto) % (1.0-10.0) Eosinophils (%) (Auto) % (0.0-3.0) Basophils (%) (Auto) % (0.0-2.0) Differential Total Cells Counted 100 Neutrophils % (Manual) 84 % (45-75) H Lymphocytes % (Manual) 10 % (20-45) L Monocytes % (Manual) 6 % (1-10) Eosinophils % (Manual) 0 % (0-3) Basophils % (Manual) 0 % (0-2) Band Neutrophils 0 % (0-8) Platelet Estimate Adequate Platelet Morphology Normal Sodium Level 127 MMOL/L (136-145) L 131 MMOL/L (136-145) L Potassium Level 4.3 MMOL/L (3.5-5.1) 4.2 MMOL/L (3.5-5.1) Chloride Level 94 MMOL/L (98-107) L 102 MMOL/L (98-107) Carbon Dioxide Level 28 MMOL/L (21-32) 24 MMOL/L (21-32) Anion Gap 5 mmol/L (5-15) 6 mmol/L (5-15) Blood Urea Nitrogen 48 mg/dL (7-18) H 39 mg/dL (7-18) H Creatinine 2.2 MG/DL (0.55-1.30) H 1.5 MG/DL (0.55-1.30) H Estimat Glomerular Filtration Rate mL/min (>60) mL/min (>60) Glucose Level 125 MG/DL (74-106) H 133 MG/DL (74-106) H Lactic Acid Level 1.80 mmol/L (0.4-2.0) Calcium Level 8.8 MG/DL (8.5-10.1) 8.2 MG/DL (8.5-10.1) L Total Bilirubin 0.5 MG/DL (0.2-1.0) Aspartate Amino Transf (AST/SGOT) 20 U/L (15-37) Alanine Aminotransferase (ALT/SGPT) 30 U/L (12-78) Alkaline Phosphatase 100 U/L (46-116) Total Creatine Kinase 30 U/L (26-308) Creatine Kinase MB 0.5 NG/ML (0.0-3.6) Creatine Kinase MB Relative Index 1.6 Troponin I 0.000 ng/mL (0.000-0.056) Pro-B-Type Natriuretic Peptide 3011 pg/mL (0-125) H Total Protein 7.0 G/DL (6.4-8.2) Albumin 3.0 G/DL (3.4-5.0) L Globulin 4.0 g/dL Albumin/Globulin Ratio 0.8 (1.0-2.7) L Arterial Blood pH 7.350 (7.350-7.450) Arterial Blood Partial Pressure CO2 40.0 mmHg (35.0-45.0) Arterial Blood Partial Pressure O2 65.2 mmHg (75.0-100.0) L Arterial Blood HCO3 21.7 mmol/L (22.0-26.0) L Arterial Blood Oxygen Saturation 90.4 % (95-100) L Arterial Blood Base Excess -3.6 (-2-2) L Scooby Test Positive Urine Color Yellow Urine Appearance Turbid Urine pH 5 (4.5-8.0) Urine Specific [place] 1.015 (1.005-1.035) Urine Protein 3+ (NEGATIVE) H Urine Glucose (UA) Negative (NEGATIVE) Urine Ketones Negative (NEGATIVE) Urine Blood 5+ (NEGATIVE) H Urine Nitrite Negative (NEGATIVE) Urine Bilirubin Negative (NEGATIVE) Urine Urobilinogen Normal MG/DL (0.0-1.0) Urine Leukocyte Esterase 3+ (NEGATIVE) H Urine RBC 20-30 /HPF (0 - 2) H Urine WBC Tntc /HPF (0 - 2) H Urine Squamous Epithelial Cells None /LPF (NONE/OCC) Urine Bacteria Many /HPF (NONE) H Microbiology Date/Time Source Procedure Growth Status 03/30/19 06:00 Rectum Received Height (Feet): 5 Height (Inches): 4.00 Weight (Pounds): 135 Medications Current Medications Medications (Trade) Dose Ordered Sig/Wilner Route PRN Reason Start Time Stop Time Status Last Admin Dose Admin Azithromycin 500 mg/Sodium Chloride 275 ml @ 275 mls/hr Q24H IV 03/30/19 11:00 04/06/19 10:59 03/30/19 12:42 Heparin Sodium (Porcine) (Heparin 5000 units/ml) 5,000 units EVERY 12 HOURS SUBQ 03/30/19 09:30 04/29/19 09:29 03/30/19 09:43 Pantoprazole (Protonix) 40 mg EVERY 12 HOURS IVP 03/30/19 10:00 04/29/19 09:59 03/30/19 09:42 Piperacillin Sod/ Tazobactam Sod 3.375 gm/Sodium Chloride 110 ml @ 27.5 mls/hr EVERY 12 HOURS IVPB 03/30/19 18:00 04/04/19 17:59 Sodium Chloride 1,000 ml @ 125 mls/hr Q8H IV 03/30/19 14:00 04/29/19 13:59 03/30/19 14:57 Vancomycin HCl (Vanco rx to dose) 1 ea DAILY PRN MISC Per rx protocol 03/30/19 09:15 04/29/19 09:14 Assessment/Plan Problem List: (1) Leukocytosis Assessment & Plan: leukocytosis shift labs noted exam stable Abx as per ID cont IV abx uti vs pna trend labs ICD Codes: D72.829 - Elevated white blood cell count, unspecified SNOMED: 728277193, 188147923 (2) Decubitus skin ulcer Assessment & Plan: Pt presented on admission with moisture intertrigo R and L breasts. both breast folds are erythematous with denuded skin . DTPI noted to Upper R buttocks. Base of wound is maroon is indurated and elongated with surrounding non-blanching erythema. (L)1cm x (W)4cm. Both heels are soft pink and blanchable.No other skin concerns noted. Tx.Plan: Apply Hydraguard Silicone cream to R and L breasts Daily. Apply Moisture Barrier Paste to Sacrum and R buttocks. Cover with Optifoam drsg. Change every 3 days and prn. Apply Cavilon Skin Barrier to both heels. Cover each heels with Optifoam drsg. Change every 7 days and prn. APM/MARCUS Mattress overlay. Reposition at least every 2hours or as tolerated. Off-load heels with pillow. ICD Codes: L89.90 - Pressure ulcer of unspecified site, unspecified stage SNOMED: 067068669 (3) Limited mobility ICD Codes: Z74.09 - Other reduced mobility SNOMED: 5594618 (4) Constipation ICD Codes: K59.00 - Constipation, unspecified SNOMED: 95177095 (5) Protein-calorie malnutrition, mild Assessment & Plan: nutritional consult pending ICD Codes: E44.1 - Mild protein-calorie malnutrition SNOMED: 47256582 Robert Orellana Mar 30, 2019 17:54
[2019-03-30] MEDS ORDERED: Zosyn 3.375gm q12h **Extended infusion IVPB SCH ×2 (18:00)
--- NOTE | 2019-03-30 19:15 | Consultation ---
Consult Note Assessment/Plan DICT # [id number] Rafael Lerma MD Mar 30, 2019 19:15
--- NOTE | 2019-03-30 22:00 | Consultation ---
DATE OF CONSULTATION: 03/30/2019 PULMONARY CONSULTATION CONSULTING PHYSICIAN: Rafael Lerma M.D. REFERRING PHYSICIAN: Dr. Philipp Moreau. REASON FOR CONSULTATION: Hypoxemia, sepsis. HISTORY OF PRESENT ILLNESS: The patient is a very unfortunate 78-year-old female, skilled nursing resident with multiple medical problems including COPD, CHF with diastolic dysfunction, GERD, anemia, hypertension, hyperlipidemia, recent admission with gastritis with a pulsating comfort measures only, who presented from nursing facility with altered mental status, hypoxia, hypotension, UTI, possible pneumonia. She was started on BiPAP in the ER for hypoxemia, but is currently stable. No coughing per report. No history is obtainable by the patient. Here, the patient has been afebrile and both CRISTÓBAL and blood pressure responded to volume. No other history is obtainable. PAST MEDICAL HISTORY: 1. COPD. 2. CHF. 3. GERD. 4. Anemia. 5. Hypertension. 6. Hyperlipidemia. 7. IBS. 8. Home O2 dependence. 9. Encephalopathy. 10. Recent admission with gastritis. ALLERGIES: Cranberry, tetracycline, tomato. MEDICATIONS: Prior to admission medications, reviewed. SOCIAL HISTORY: She is a skilled nursing resident. Not obtainable otherwise. FAMILY HISTORY: Not obtainable. REVIEW OF SYSTEMS: Not obtainable. PHYSICAL EXAMINATION: VITAL SIGNS: Temperature 97.5, pulse 127, blood pressure 102/58, respiratory rate of 26, saturating 95% on BiPAP. GENERAL: The patient is nonverbal, in no distress. HEENT: Normocephalic, atraumatic. Oropharynx is clear with moist mucous membranes. NECK: Supple without lymphadenopathy or JVD. CHEST: Scattered, coarse. HEART: Tachycardic, but regular. ABDOMEN: Soft, nontender, nondistended. EXTREMITIES: No cyanosis, clubbing, or edema. noted. SKIN: The patient has intertrigo between her breasts and decubitus ulcers. ANCILLARY DATA: UA showed 5+ blood, 3+ LE, many bacteria. White count 21, hemoglobin 10, platelet count 198,000. ABG 7.35/40/65/21/90. Sodium 131, potassium 4.2, chloride 102, bicarbonate 24, BUN 13, creatinine 1.5, and glucose 133. Culture data pending. Chest x-ray reviewed by myself shows pulmonary vascular congestion, cardiomegaly, questionable left pleural effusion. ASSESSMENT: The patient is a 78-year-old female with history of COPD, CHF with diastolic dysfunction, GERD, anemia, hypertension, hyperlipidemia, IBS, skilled nursing resident with pulsating comfort measures only and DNR, presenting with altered mental status, hypertension, likely secondary to UTI with urosepsis and hypoxemia secondary to above. PROBLEM LIST: 1. Hypoxemia likely secondary to urosepsis. 2. UTI with likely urosepsis. 3. COPD. 4. Home O2 dependence. 5. CHF with diastolic dysfunction. 6. CRISTÓBAL with hyponatremia. 7. Anemia. 8. Recent admission for gastritis. 9. Hypertension, hyperlipidemia, GERD, IBS. 10. DNAR, pulsate comfort measures only. TREATMENT PLAN: 1. Change BiPAP to p.r.n. 2. Titrate on FiO2 to keep saturations greater than 90%. 3. Continue broad-spectrum antibiotics (the patient is on Zosyn, vancomycin, and azithromycin) per ID, follow up cultures. 4. Monitor volumes and renal function, cautious IV fluid hydration. 5. NPO. 6. Monitor mental status. 7. DVT prophylaxis, heparin subcutaneous. 8. The patient is DNAR, and has a pulsating comfort measures only, we will need to discuss further goals of care. Dr. Moreau, thank you for allowing me to assist in the care of your patient. If I may be of any assistance in the future, please do not hesitate to ask. Rafael Lerma M.D. DR: NEREYDA JOB#: [id number] CC:
[2019-03-31] VITALS: BP 134/77
[2019-03-31 04:00] VITALS: BP 113/65
[2019-03-31 05:00] LABS: HEMATOCRIT 30.4 % (37.0-47.0); HEMOGLOBIN 9.9 G/DL (12.0-16.0); MEAN CORPUSCULAR VOLUME 91 FL (80-99); PLATELET COUNT 163 K/UL (150-450); RED BLOOD COUNT 3.33 M/UL (4.20-5.40); RED CELL DISTRIBUTION WIDTH 14.3 % (11.6-14.8); WHITE BLOOD COUNT 16.5 K/UL (4.8-10.8)
[2019-03-31 05:38] LABS: ALANINE AMINOTRANSFERASE 25 U/L (12-78); ALBUMIN 2.7 G/DL (3.4-5.0); ALBUMIN/GLOBULIN RATIO 0.6 (1.0-2.7); ALKALINE PHOSPHATASE 111 U/L (46-116); ANION GAP 9 mmol/L (5-15); ASPARTATE AMINO TRANSFERASE 35 U/L (15-37); BILIRUBIN,TOTAL 0.5 MG/DL (0.2-1.0); BLOOD UREA NITROGEN 32 mg/dL (7-18); CALCIUM 8.8 MG/DL (8.5-10.1); CARBON DIOXIDE 22 MMOL/L (21-32); CHLORIDE 104 MMOL/L (98-107); CREATININE 1.2 MG/DL (0.55-1.30); POTASSIUM 4.1 MMOL/L (3.5-5.1); SODIUM 135 MMOL/L (136-145)
[2019-03-31 08:00] VITALS: BP 135/62
[2019-03-31] MEDS ORDERED: Amikacin 400 MG in NS 110 ML IV ONE (08:00)
[2019-03-31] MEDS: Pantoprazole Inj IVP SCH ×2 (08:20→20:25)
[2019-03-31] MEDS: Heparin 5000 units/ml inj SUBQ SCH ×2 (08:21→20:26)
[2019-03-31] MEDS ORDERED: Meropenem 500 MG in NS 55 ML IVPB SCH (09:00)
[2019-03-31] MEDS: Meropenem 1gm/NS 110ml IVPB SCH ×4 (09:42→21:23)
[2019-03-31] MEDS ORDERED: Vancomycin 1gm/D5W 275ml IVPB SCH ×2 (10:00)
--- NOTE | 2019-03-31 10:08 | General Progress Note ---
Assessment/Plan Problem List: (1) Acute and chronic respiratory failure (kadrs-xl-tjmixdi) ICD Codes: J96.20 - Acute and chr resp failure, unsp w hypoxia or hypercapnia SNOMED: 51209042 (2) Respiratory failure with hypoxia ICD Codes: J96.91 - Respiratory failure, unspecified with hypoxia SNOMED: 46299604280941919 (3) Gram-negative bacteremia ICD Codes: R78.81 - Bacteremia SNOMED: 546826023720 (4) Severe sepsis ICD Codes: A41.9 - Sepsis, unspecified organism; R65.20 - Severe sepsis without septic shock SNOMED: 21794961 (5) CRISTÓBAL (acute kidney injury) ICD Codes: N17.9 - Acute kidney failure, unspecified SNOMED: 22253109, 9171499, 234983496 (6) UTI (urinary tract infection) ICD Codes: N39.0 - Urinary tract infection, site not specified SNOMED: 46190555, 18958139, 191850597 (7) Hyponatremia ICD Codes: E87.1 - Hypo-osmolality and hyponatremia SNOMED: 00952864 (8) COPD (chronic obstructive pulmonary disease) ICD Codes: J44.9 - Chronic obstructive pulmonary disease, unspecified SNOMED: 38362250 (9) Anemia ICD Codes: D64.9 - Anemia, unspecified SNOMED: 893417433 (10) Anxiety ICD Codes: F41.9 - Anxiety disorder, unspecified SNOMED: 51516241 (11) Hypertension ICD Codes: I10 - Essential (primary) hypertension SNOMED: 20466681 (12) History of breast cancer ICD Codes: Z85.3 - Personal history of malignant neoplasm of breast SNOMED: 216728781 (13) Diastolic CHF ICD Codes: I50.30 - Unspecified diastolic (congestive) heart failure SNOMED: 15092986, 959668775 (14) Hypercholesteremia ICD Codes: E78.00 - Pure hypercholesterolemia, unspecified SNOMED: 46932403 (15) Protein-calorie malnutrition, mild ICD Codes: E44.1 - Mild protein-calorie malnutrition SNOMED: 51999995 Status: progressing - much improvement Assessment/Plan: 78-year-old female with PMHx of COPD on 2L O2, HTN, diastolic CHF, chronic, osteoporosis, IBS-C, DDD, anemia and UTI sent from SNF for fever, lethargy, and congestion. #Severe sepsis/ septic shock secondary to pneumonia, ? aspiration ?HCAP vs. UTI , gram negative bacteremia, gram negative UTI #Acute on chronic hypoxic respiratory failure- responding to non invasive positive pressure ventilation #CRISTÓBAL- prerenal- improving #diastolic CHF, possible acute exacerbation, however on exam, she is hypovolemic #Hyponatremia- hypovolemic, improving #COPD on home O2, doubt exacerbation #HTN, HLD #Normocytic Anemia- stable #Anxiety/depression #Mild protein calorie malnutrition -s/p 1L NS in the ER, will infuse another 1 L ns, and reevaluate. clinically very dry and hypovolemic on presentation. currently receiving NS @125 ml/hr, will stop -Broad spectrum antibiotics: s/p Zosyn, Vancomycin and Azithromycin. Renal dose. Per ID switch to Amikacin and meropenem. -continue bipap prn, titrate to keep SpO2 >90% -ID and pulmonary consults -Repeat Echocardiogram - Duo-Nebs Q6hr PRN SOB/Wheezing - continue home Singulair -Monitor renal function, continue shi, if cr without improvement, renal consult - hold ACEi - hold Amlodipine 10mg PO daily - hold stain and ASA while npo - hold lyrica 75mg PO BID - resume Lexapro 20mg Po daily, Resume Klonipin and ativan prn. Psychiatry consult with Dr. Stern who know her from SNF - hold Colace 100mg Po BID - hold simethecone 125mg PO TID #Goals of care - DNR/DNI, POLST reviewed FENPPx Fluids: 1 L bolus, reassess Diet: NPO, speech and swallow evaluation, advance diet as tolerated DVTPPx: Heparin SBQ q12 GI PPX: PPI IV PT/OT: pending Code status: DNR/DNI, per polst Dispo: Back to SNF pending clinical course I spent 40 minutes on this encounter, 20 minutes spent on counselling and care coordination D/w RN, general surgery: Dr. Orellana, pulmonary: Dr. Lerma, ID: Dr. Grady. and sister Diane at bedside. Subjective Date patient seen: Mar 31, 2019 ROS Limited/Unobtainable: Yes Allergies: Coded Allergies: [place] (Unverified Allergy, Mild, upset stomach, 02/10/19) TOMATO (Unverified Allergy, Mild, upset stomach, 02/10/19) TETRACYCLINE (Unverified Allergy, Unknown, 07/24/14) Subjective Awake, however confused, constantly talking however not meaningful, recognized sister Diane. Off bipap. wbc trending down, renal function better. Objective Last 24 Hour Vital Signs Date Time Temp Pulse Resp B/P (MAP) Pulse Ox O2 Delivery O2 Flow Rate FiO2 03/31/19 08:00 2.0 03/31/19 08:00 98.1 125 18 135/62 (86) 97 03/31/19 04:00 30 03/31/19 04:00 98.2 130 29 113/65 (81) 97 03/31/19 04:00 Bi-pap 03/31/19 03:26 125 03/31/19 03:10 128 28 96 Facial 30 03/31/19 00:00 128 03/31/19 00:00 98.4 67 20 134/77 (96) 95 03/31/19 00:00 Bi-pap 03/30/19 23:37 120 17 95 Facial 30 03/30/19 21:06 95 4.0 31 03/30/19 21:00 Bi-pap 03/30/19 20:00 95 Venturi Mask 4.0 31 03/30/19 20:00 30 03/30/19 20:00 99.5 107 26 119/83 (95) 97 03/30/19 19:01 131 03/30/19 16:37 130 24 96 Facial 30 03/30/19 16:00 Bi-pap 03/30/19 16:00 97.5 125 26 103/58 (73) 94 03/30/19 16:00 127 03/30/19 16:00 30 03/30/19 15:00 121 22 96 Facial 30 03/30/19 13:08 102 26 97 Facial 30 03/30/19 12:00 97.3 115 20 94/55 (68) 94 03/30/19 12:00 30 03/30/19 12:00 Bi-pap 03/30/19 11:43 120 03/30/19 11:23 114 19 96 Facial 30 03/30/19 10:20 101/51 (68) Intake and Output 03/30/19 03/31/19 19:00 07:00 Intake Total 2003.334 ml 1235.0 ml Output Total 1675 ml 800 ml Balance 328.334 ml 435.0 ml Intake Oral 0 ml IV Total 2003.334 ml 1235.0 ml Output Urine Total 1675 ml 800 ml Laboratory Tests 03/30/19 15:05: Sodium Level 131L, Potassium Level 4.2, Chloride Level 102, Carbon Dioxide Level 24, Anion Gap 6, Blood Urea Nitrogen 39H, Creatinine 1.5H, Estimat Glomerular Filtration Rate , Glucose Level 133H, Calcium Level 8.2L 03/31/19 03:10: Sodium Level 135L, Potassium Level 4.1, Chloride Level 104, Carbon Dioxide Level 22, Anion Gap 9, Blood Urea Nitrogen 32H, Creatinine 1.2, Estimat Glomerular Filtration Rate , Glucose Level 105, Calcium Level 8.8, White Blood Count 16.5H, Red Blood Count 3.33L, Hemoglobin 9.9L, Hematocrit 30.4L, Mean Corpuscular Volume 91, Mean Corpuscular Hemoglobin 29.6, Mean Corpuscular Hemoglobin Concent 32.5, Red Cell Distribution Width 14.3, Platelet Count 163, Mean Platelet Volume 6.3L, Neutrophils (%) (Auto) , Lymphocytes (%) (Auto) , Monocytes (%) (Auto) , Eosinophils (%) (Auto) , Basophils (%) (Auto) , Neutrophils % (Manual) [Pending], Lymphocytes % (Manual) [Pending], Platelet Estimate [Pending], Platelet Morphology [Pending], Total Bilirubin 0.5, Aspartate Amino Transf (AST/SGOT) 35, Alanine Aminotransferase (ALT/SGPT) 25, Alkaline Phosphatase 111, Total Protein 6.9, Albumin 2.7L, Globulin 4.2, Albumin /Globulin Ratio 0.6L, Random Vancomycin Level 11.2 Height (Feet): 5 Height (Inches): 4.00 Weight (Pounds): 134 Objective General Appearance: awake, however confused, alert and oriented to self ( baseline x4), off bipap Lines, tubes and drains: peripheral HEENT: normocephalic, atraumatic, PERRL, EOMI, no JVD, DRY MM Neck: non-tender, normal alignment, supple Respiratory/Chest: rales and rhonchi Cardiovascular/Chest: tachycardic, regular rhythm, no m/r/g Abdomen: normal bowel sounds, soft, obese, non tender Extremities: normal range of motion, non-tender, normal inspection, moves all ext, no edema Skin Exam: poor turger, refer to photos , stage 2 sacral decub Neurologic: lethargic, unable to assess, moves all four limbs Musculoskeletal: normal muscle bulk, no effusion, atrophy Phiilpp Moreau M.D. Mar 31, 2019 10:08
[2019-03-31] MEDS ORDERED: clonazePAM 0.5mg tab ORAL PRN (11:00)
[2019-03-31] MEDS ORDERED: LORazepam 0.5mg tab ORAL PRN ×3 (11:00→14:15)
[2019-03-31] MEDS: Azithromycin 500 MG in NS 275 ML IV SCH (11:39)
--- NOTE | 2019-03-31 11:44 | General Progress Note ---
Assessment/Plan Status: other - critical Assessment/Plan: GI: Plan Problems: (1) GERD (gastroesophageal reflux disease) (2) Anemia (3) Protein-calorie malnutrition, mild (4) Severe sepsis Plan History of endoscopy and colonoscopy on February 11, 2019 noted with gastritis and one colonic polyp. No plan for any GI procedures at this time given recent history of procedure and unstable respiratory status. Obtain anemia work-up Fecal occult blood stool to rule out any GI bleed PPI daily Monitor H&H, PRN transfusions Antibiotics per infectious diseases We will follow on a daily basis with additional recommendations. fu swallow eval Subjective ROS Limited/Unobtainable: Yes Allergies: Coded Allergies: [place] (Unverified Allergy, Mild, upset stomach, 02/10/19) T[place]AT[place] (Unverified Allergy, Mild, upset stomach, 02/10/19) TETRACYCLINE (Unverified Allergy, Unknown, 07/24/14) Objective Last 24 Hour Vital Signs Date Time Temp Pulse Resp B/P (MAP) Pulse Ox O2 Delivery O2 Flow Rate FiO2 03/31/19 08:00 2.0 03/31/19 08:00 Bi-pap 03/31/19 08:00 98.1 125 18 135/62 (86) 97 03/31/19 04:00 30 03/31/19 04:00 98.2 130 29 113/65 (81) 97 03/31/19 04:00 Bi-pap 03/31/19 03:26 125 03/31/19 03:10 128 28 96 Facial 30 03/31/19 00:00 128 03/31/19 00:00 98.4 67 20 134/77 (96) 95 03/31/19 00:00 Bi-pap 03/30/19 23:37 120 17 95 Facial 30 03/30/19 21:06 95 4.0 31 03/30/19 21:00 Bi-pap 03/30/19 20:00 95 Venturi Mask 4.0 31 03/30/19 20:00 30 03/30/19 20:00 99.5 107 26 119/83 (95) 97 03/30/19 19:01 131 03/30/19 16:37 130 24 96 Facial 30 03/30/19 16:00 Bi-pap 03/30/19 16:00 97.5 125 26 103/58 (73) 94 03/30/19 16:00 127 11/20/19 16:00 30 03/30/19 15:00 121 22 96 Facial 30 03/30/19 13:08 102 26 97 Facial 30 03/30/19 12:00 97.3 115 20 94/55 (68) 94 03/30/19 12:00 30 03/30/19 12:00 Bi-pap Intake and Output 03/30/19 03/31/19 19:00 07:00 Intake Total 2003.334 ml 1235.0 ml Output Total 1675 ml 800 ml Balance 328.334 ml 435.0 ml Intake Oral 0 ml IV Total 2003.334 ml 1235.0 ml Output Urine Total 1675 ml 800 ml Laboratory Tests 03/30/19 15:05: Sodium Level 131L, Potassium Level 4.2, Chloride Level 102, Carbon Dioxide Level 24, Anion Gap 6, Blood Urea Nitrogen 39H, Creatinine 1.5H, Estimat Glomerular Filtration Rate , Glucose Level 133H, Calcium Level 8.2L 03/31/19 03:10: Sodium Level 135L, Potassium Level 4.1, Chloride Level 104, Carbon Dioxide Level 22, Anion Gap 9, Blood Urea Nitrogen 32H, Creatinine 1.2, Estimat Glomerular Filtration Rate , Glucose Level 105, Calcium Level 8.8, White Blood Count 16.5H, Red Blood Count 3.33L, Hemoglobin 9.9L, Hematocrit 30.4L, Mean Corpuscular Volume 91, Mean Corpuscular Hemoglobin 29.6, Mean Corpuscular Hemoglobin Concent 32.5, Red Cell Distribution Width 14.3, Platelet Count 163, Mean Platelet Volume 6.3L, Neutrophils (%) (Auto) , Lymphocytes (%) (Auto) , Monocytes (%) (Auto) , Eosinophils (%) (Auto) , Basophils (%) (Auto) , Differential Total Cells Counted 100, Neutrophils % (Manual) 87H, Lymphocytes % (Manual) 4L, Monocytes % (Manual) 3, Eosinophils % (Manual) 0, Basophils % ( Manual) 0, Myelocytes % 1H, Band Neutrophils 5, Platelet Estimate Adequate, Platelet Morphology Normal, Red Blood Cell Morphology Normal, Total Bilirubin 0.5, Aspartate Amino Transf (AST/SGOT) 35, Alanine Aminotransferase (ALT/SGPT) 25, Alkaline Phosphatase 111, Total Protein 6.9, Albumin 2.7L, Globulin 4.2, Albumin/Globulin Ratio 0.6L, Random Vancomycin Level 11.2 Height (Feet): 5 Height (Inches): 4.00 Weight (Pounds): 134 General Appearance: alert EENT: normal ENT inspection Neck: supple Cardiovascular: normal rate Respiratory/Chest: decreased breath sounds Abdomen: normal bowel sounds, non tender, soft Extremities: non-tender Kapil Arshad MD Mar 31, 2019 11:44
[2019-03-31 12:00] VITALS: BP 153/71
--- NOTE | 2019-03-31 13:06 | Diagnostic Imaging Report ---
Indication: Dyspnea Comparison: 03/30/2019 A single view chest radiograph was obtained. Findings: Increasing airspace disease in the right upper lobe noted as well as at both lung bases. The heart is mildly enlarged. The interstitium and pulmonary vascularity also appear prominent. IMPRESSION: Worsening airspace disease probably on the basis of congestive heart failure. Correlate clinically
--- NOTE | 2019-03-31 14:32 | Cardiology Progress Note ---
Assessment/Plan Status: stable Assessment/Plan Assessment/Plan Problem List: (1) Respiratory failure with hypoxia ICD Codes: J96.91 - Respiratory failure, unspecified with hypoxia SNOMED: 53484150384246219 (2) Acute and chronic respiratory failure (vsgqd-ex-dophezn) ICD Codes: J96.20 - Acute and chr resp failure, unsp w hypoxia or hypercapnia SNOMED: 95966027 (3) Severe sepsis ICD Codes: A41.9 - Sepsis, unspecified organism; R65.20 - Severe sepsis without septic shock SNOMED: 61223348 (4) CRISTÓBAL (acute kidney injury) ICD Codes: N17.9 - Acute kidney failure, unspecified SNOMED: 43915753, 0452044, 619856555 (5) UTI (urinary tract infection) ICD Codes: N39.0 - Urinary tract infection, site not specified SNOMED: 43993694, 41136009, 642862236 (6) Hyponatremia ICD Codes: E87.1 - Hypo-osmolality and hyponatremia SNOMED: 62239262 (7) COPD (chronic obstructive pulmonary disease) ICD Codes: J44.9 - Chronic obstructive pulmonary disease, unspecified SNOMED: 74957680 (8) Anemia ICD Codes: D64.9 - Anemia, unspecified SNOMED: 805426238 (9) Anxiety ICD Codes: F41.9 - Anxiety disorder, unspecified SNOMED: 03236172 (10) Hypertension ICD Codes: I10 - Essential (primary) hypertension SNOMED: 65332130 (11) History of breast cancer ICD Codes: Z85.3 - Personal history of malignant neoplasm of breast SNOMED: 571608524 (12) Diastolic CHF ICD Codes: I50.30 - Unspecified diastolic (congestive) heart failure SNOMED: 12847413, 062210935 (13) Hypercholesteremia ICD Codes: E78.00 - Pure hypercholesterolemia, unspecified SNOMED: 06116145 (14) Protein-calorie malnutrition, mild ICD Codes: E44.1 - Mild protein-calorie malnutrition SNOMED: 80359417 Status: other - critical -Echocardiogram -Hold blood pressure medications -Pulmonary toilet -Empiric antibiotics -BiPAP -critical care 35 minutes Subjective Cardiovascular: Reports: no symptoms Respiratory: Reports: no symptoms Gastrointestinal/Abdominal: Reports: no symptoms Genitourinary: Reports: no symptoms Subjective No acute events, remains lethargic no fevers, WBC coming down Objective Last 24 Hour Vital Signs Date Time Temp Pulse Resp B/P (MAP) Pulse Ox O2 Delivery O2 Flow Rate FiO2 03/31/19 12:00 2.0 03/31/19 11:53 92 Nasal Cannula 3.0 32 03/31/19 08:00 2.0 03/31/19 08:00 Bi-pap 03/31/19 08:00 98.1 125 18 135/62 (86) 97 03/31/19 04:00 30 03/31/19 04:00 98.2 130 29 113/65 (81) 97 03/31/19 04:00 Bi-pap 03/31/19 03:26 125 03/31/19 03:10 128 28 96 Facial 30 03/31/19 00:00 128 03/31/19 00:00 98.4 67 20 134/77 (96) 95 03/31/19 00:00 Bi-pap 03/30/19 23:37 120 17 95 Facial 30 03/30/19 21:06 95 4.0 31 03/30/19 21:00 Bi-pap 03/30/19 20:00 95 Venturi Mask 4.0 31 03/30/19 20:00 30 03/30/19 20:00 99.5 107 26 119/83 (95) 97 03/30/19 19:01 131 03/30/19 16:37 130 24 96 Facial 30 03/30/19 16:00 Bi-pap 03/30/19 16:00 97.5 125 26 103/58 (73) 94 03/30/19 16:00 127 03/30/19 16:00 30 03/30/19 15:00 121 22 96 Facial 30 General Appearance: mild distress EENT: PERRL/EOMI, normal ENT inspection, TMs normal, pharynx normal Neck: normal alignment, supple, normal inspection, no JVD Rhythm: ST Cardiovascular: normal peripheral pulses, regular rhythm, tachycardia Respiratory/Chest: chest wall non-tender, decreased breath sounds, accessory muscle use, crackles/rales, rhonchi - bilaterally Abdomen: normal bowel sounds, non tender, soft, no organomegaly, no mass Extremities: normal range of motion, non-tender, normal inspection, no calf tenderness, no swelling 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, no motor/sensory deficits Intake and Output 03/30/19 03/31/19 19:00 07:00 Intake Total 2003.334 ml 1235.0 ml Output Total 1675 ml 800 ml Balance 328.334 ml 435.0 ml Intake Oral 0 ml IV Total 2003.334 ml 1235.0 ml Output Urine Total 1675 ml 800 ml Laboratory Tests Test 03/30/19 15:05 03/31/19 03:10 Sodium Level 131 MMOL/L (136-145) L 135 MMOL/L (136-145) L Potassium Level 4.2 MMOL/L (3.5-5.1) 4.1 MMOL/L (3.5-5.1) Chloride Level 102 MMOL/L (98-107) 104 MMOL/L (98-107) Carbon Dioxide Level 24 MMOL/L (21-32) 22 MMOL/L (21-32) Anion Gap 6 mmol/L (5-15) 9 mmol/L (5-15) Blood Urea Nitrogen 39 mg/dL (7-18) H 32 mg/dL (7-18) H Creatinine 1.5 MG/DL (0.55-1.30) H 1.2 MG/DL (0.55-1.30) Estimat Glomerular Filtration Rate mL/min (>60) mL/min (>60) Glucose Level 133 MG/DL (74-106) H 105 MG/DL (74-106) Calcium Level 8.2 MG/DL (8.5-10.1) L 8.8 MG/DL (8.5-10.1) White Blood Count 16.5 K/UL (4.8-10.8) H Red Blood Count 3.33 M/UL (4.20-5.40) L Hemoglobin 9.9 G/DL (12.0-16.0) L Hematocrit 30.4 % (37.0-47.0) L Mean Corpuscular Volume 91 FL (80-99) Mean Corpuscular Hemoglobin 29.6 PG (27.0-31.0) Mean Corpuscular Hemoglobin Concent 32.5 G/DL (32.0-36.0) Red Cell Distribution Width 14.3 % (11.6-14.8) Platelet Count 163 K/UL (150-450) Mean Platelet Volume 6.3 FL (6.5-10.1) L Neutrophils (%) (Auto) % (45.0-75.0) Lymphocytes (%) (Auto) % (20.0-45.0) Monocytes (%) (Auto) % (1.0-10.0) Eosinophils (%) (Auto) % (0.0-3.0) Basophils (%) (Auto) % (0.0-2.0) Differential Total Cells Counted 100 Neutrophils % (Manual) 87 % (45-75) H Lymphocytes % (Manual) 4 % (20-45) L Monocytes % (Manual) 3 % (1-10) Eosinophils % (Manual) 0 % (0-3) Basophils % (Manual) 0 % (0-2) Myelocytes % 1 % (0-0) H Band Neutrophils 5 % (0-8) Platelet Estimate Adequate Platelet Morphology Normal Red Blood Cell Morphology Normal Total Bilirubin 0.5 MG/DL (0.2-1.0) Aspartate Amino Transf (AST/SGOT) 35 U/L (15-37) Alanine Aminotransferase (ALT/SGPT) 25 U/L (12-78) Alkaline Phosphatase 111 U/L (46-116) Total Protein 6.9 G/DL (6.4-8.2) Albumin 2.7 G/DL (3.4-5.0) L Globulin 4.2 g/dL Albumin/Globulin Ratio 0.6 (1.0-2.7) L Random Vancomycin Level 11.2 ug/mL Microbiology Date/Time Source Procedure Growth Status 03/30/19 03:45 Blood Blood Culture - Preliminary Gram Negative Ton Resulted 03/30/19 04:50 Urine,Clean Catch Urine Culture - Preliminary Gram Negative Ton Resulted 03/30/19 06:00 Rectum Received Isiah Barakat MD Mar 31, 2019 14:32
--- NOTE | 2019-03-31 15:25 | Infectious Diseases Prog Note ---
Assessment/Plan Assessment/Plan A) 1) gram neg uti/pyelonephritis/bacteremia, chf/edema/pvc > pna, sepsis, leukocytosis, fevers 2) karen, pmh noted, sob, bipap 3) allergies - tetracycline and tomato P) 1) change abx to meropenem, amikacin x 1 with pharmacy dosing 2) check cultures, labs and chest x-ray 3) continue per primary team and consultants 4) will f/u Subjective Constitutional: Denies: fever HEENT: Reports: congestion - less Respiratory: Reports: shortness of breath - less Cardiovascular: Denies: chest pain Gastrointestinal/Abdominal: Reports: vomiting; Denies: nausea, diarrhea Neurologic: Reports: other - more alert Allergies: Coded Allergies: [place] (Unverified Allergy, Mild, upset stomach, 02/10/19) T[place]AT[place] (Unverified Allergy, Mild, upset stomach, 02/10/19) TETRACYCLINE (Unverified Allergy, Unknown, 07/24/14) Objective Vital Signs Last 24 Hour Vital Signs Date Time Temp Pulse Resp B/P (MAP) Pulse Ox O2 Delivery O2 Flow Rate FiO2 03/31/19 12:00 2.0 03/31/19 12:00 Bi-pap 03/31/19 12:00 99.3 129 20 153/71 (98) 94 03/31/19 11:53 92 Nasal Cannula 3.0 32 03/31/19 11:53 126 03/31/19 08:00 2.0 03/31/19 08:00 Bi-pap 03/31/19 08:00 98.1 125 18 135/62 (86) 97 03/31/19 07:41 131 03/31/19 04:00 30 03/31/19 04:00 98.2 130 29 113/65 (81) 97 03/31/19 04:00 Bi-pap 03/31/19 03:26 125 03/31/19 03:10 128 28 96 Facial 30 03/31/19 00:00 128 03/31/19 00:00 98.4 67 20 134/77 (96) 95 03/31/19 00:00 Bi-pap 03/30/19 23:37 120 17 95 Facial 30 03/30/19 21:06 95 4.0 31 03/30/19 21:00 Bi-pap 03/30/19 20:00 95 Venturi Mask 4.0 31 03/30/19 20:00 30 03/30/19 20:00 99.5 107 26 119/83 (95) 97 03/30/19 19:01 131 03/30/19 16:37 130 24 96 Facial 30 03/30/19 16:00 Bi-pap 03/30/19 16:00 97.5 125 26 103/58 (73) 94 03/30/19 16:00 127 03/30/19 16:00 30 Height (Feet): 5 Height (Inches): 4.00 Weight (Pounds): 134 HEENT: normocephalic, atraumatic, anicteric Respiratory/Chest: crackles/rales, rhonchi - bilaterally Cardiovascular: normal rate, regular rhythm, no gallop/murmur Abdomen: normal bowel sounds, soft, non tender, no organomegaly Microbiology Date/Time Source Procedure Growth Status 03/30/19 03:45 Blood Blood Culture - Preliminary Gram Negative Ton Resulted 03/30/19 04:50 Urine,Clean Catch Urine Culture - Preliminary Gram Negative Ton Resulted 03/30/19 06:00 Rectum Received Laboratory Tests Test 03/31/19 03:10 White Blood Count 16.5 K/UL (4.8-10.8) H Red Blood Count 3.33 M/UL (4.20-5.40) L Hemoglobin 9.9 G/DL (12.0-16.0) L Hematocrit 30.4 % (37.0-47.0) L Mean Corpuscular Volume 91 FL (80-99) Mean Corpuscular Hemoglobin 29.6 PG (27.0-31.0) Mean Corpuscular Hemoglobin Concent 32.5 G/DL (32.0-36.0) Red Cell Distribution Width 14.3 % (11.6-14.8) Platelet Count 163 K/UL (150-450) Mean Platelet Volume 6.3 FL (6.5-10.1) L Neutrophils (%) (Auto) % (45.0-75.0) Lymphocytes (%) (Auto) % (20.0-45.0) Monocytes (%) (Auto) % (1.0-10.0) Eosinophils (%) (Auto) % (0.0-3.0) Basophils (%) (Auto) % (0.0-2.0) Differential Total Cells Counted 100 Neutrophils % (Manual) 87 % (45-75) H Lymphocytes % (Manual) 4 % (20-45) L Monocytes % (Manual) 3 % (1-10) Eosinophils % (Manual) 0 % (0-3) Basophils % (Manual) 0 % (0-2) Myelocytes % 1 % (0-0) H Band Neutrophils 5 % (0-8) Platelet Estimate Adequate Platelet Morphology Normal Red Blood Cell Morphology Normal Sodium Level 135 MMOL/L (136-145) L Potassium Level 4.1 MMOL/L (3.5-5.1) Chloride Level 104 MMOL/L (98-107) Carbon Dioxide Level 22 MMOL/L (21-32) Anion Gap 9 mmol/L (5-15) Blood Urea Nitrogen 32 mg/dL (7-18) H Creatinine 1.2 MG/DL (0.55-1.30) Estimat Glomerular Filtration Rate mL/min (>60) Glucose Level 105 MG/DL (74-106) Calcium Level 8.8 MG/DL (8.5-10.1) Total Bilirubin 0.5 MG/DL (0.2-1.0) Aspartate Amino Transf (AST/SGOT) 35 U/L (15-37) Alanine Aminotransferase (ALT/SGPT) 25 U/L (12-78) Alkaline Phosphatase 111 U/L (46-116) Total Protein 6.9 G/DL (6.4-8.2) Albumin 2.7 G/DL (3.4-5.0) L Globulin 4.2 g/dL Albumin/Globulin Ratio 0.6 (1.0-2.7) L Random Vancomycin Level 11.2 ug/mL Current Medications Medications (Trade) Dose Ordered Sig/Wilner Route PRN Reason Start Time Stop Time Status Last Admin Dose Admin Clonazepam (KlonoPIN) 0.5 mg BID ORAL 03/31/19 18:00 04/07/19 17:59 Escitalopram Oxalate (Lexapro) 20 mg DAILY ORAL 03/31/19 14:03 04/30/19 14:02 03/31/19 14:19 Heparin Sodium (Porcine) (Heparin 5000 units/ml) 5,000 units EVERY 12 HOURS SUBQ 03/30/19 09:30 04/29/19 09:29 03/31/19 08:21 Lorazepam (Ativan) 0.5 mg BIDPRN PRN ORAL For Anxiety 03/31/19 14:15 04/07/19 10:59 Meropenem 1 gm/ Sodium Chloride 110 ml @ 220 mls/hr Q12HR IVPB 03/31/19 09:00 04/05/19 08:59 03/31/19 09:42 Pantoprazole (Protonix) 40 mg EVERY 12 HOURS IVP 03/30/19 10:00 04/29/19 09:59 03/31/19 08:20 Nyasia Grover MD Mar 31, 2019 15:25
[2019-03-31] MEDS ORDERED: Amikacin Rx to dose MISC PRN (15:30)
--- NOTE | 2019-03-31 15:41 | Pulmonology Progress Note ---
Assessment/Plan Problems: (1) UTI (urinary tract infection) (2) Sepsis with acute hypoxic respiratory failure (3) CRISTÓBAL (acute kidney injury) (4) COPD (chronic obstructive pulmonary disease) (5) Anemia (6) Anxiety (7) Hypercholesteremia (8) Hyponatremia (9) Acute and chronic respiratory failure ([id number]) (10) Hypertension (11) Protein-calorie malnutrition, mild Assessment/Plan ASSESSMENT: The patient is a 78-year-old female with history of COPD, CHF with diastolic dysfunction, GERD, anemia, hypertension, hyperlipidemia, IBS, care home resident with pulsating comfort measures only and DNR, presenting with altered mental status, hypertension, likely secondary to UTI with urosepsis and hypoxemia secondary to above. PROBLEM LIST: 1. Hypoxemia likely secondary to urosepsis. 2. GNR UTI and GNR sepsis 3. COPD. 4. Home O2 dependence. 5. CHF with diastolic dysfunction. 6. CRISTÓBAL with hyponatremia. 7. Anemia. 8. Recent admission for gastritis. 9. Hypertension, hyperlipidemia, GERD, IBS. 10. DNAR, PULSE comfort measures only. TREATMENT PLAN: 1. BiPAP PRN 2. Titrate on FiO2 to keep saturations greater than 90%. 3. Abx per ID 4. Monitor volumes and renal function, cautious IV fluid hydration. 5. NPO. 6. Monitor mental status. 7. DVT prophylaxis, heparin subcutaneous. 8. The patient is DNAR, and has a pulsating comfort measures only, we will need to discuss further goals of care. Subjective Allergies: Coded Allergies: [place] (Unverified Allergy, Mild, upset stomach, 02/10/19) TOMATO (Unverified Allergy, Mild, upset stomach, 02/10/19) TETRACYCLINE (Unverified Allergy, Unknown, 07/24/14) Subjective AFVSS, on/off BIPAP O2 needs stable, GNR in blood and urine, Cr better, WCt better, no FC Objective Last 24 Hour Vital Signs Date Time Temp Pulse Resp B/P (MAP) Pulse Ox O2 Delivery O2 Flow Rate FiO2 03/31/19 12:00 2.0 03/31/19 12:00 Bi-pap 03/31/19 12:00 99.3 129 20 153/71 (98) 94 03/31/19 11:53 92 Nasal Cannula 3.0 32 03/31/19 11:53 126 11/21/19 08:00 2.0 03/31/19 08:00 Bi-pap 03/31/19 08:00 98.1 125 18 135/62 (86) 97 03/31/19 07:41 131 03/31/19 04:00 30 03/31/19 04:00 98.2 130 29 113/65 (81) 97 03/31/19 04:00 Bi-pap 03/31/19 03:26 125 03/31/19 03:10 128 28 96 Facial 30 03/31/19 00:00 128 03/31/19 00:00 98.4 67 20 134/77 (96) 95 03/31/19 00:00 Bi-pap 03/30/19 23:37 120 17 95 Facial 30 03/30/19 21:06 95 4.0 31 03/30/19 21:00 Bi-pap 03/30/19 20:00 95 Venturi Mask 4.0 31 03/30/19 20:00 30 03/30/19 20:00 99.5 107 26 119/83 (95) 97 03/30/19 19:01 131 03/30/19 16:37 130 24 96 Facial 30 03/30/19 16:00 Bi-pap 03/30/19 16:00 97.5 125 26 103/58 (73) 94 03/30/19 16:00 127 03/30/19 16:00 30 Intake and Output 03/30/19 03/31/19 19:00 07:00 Intake Total 2003.334 ml 1235.0 ml Output Total 1675 ml 800 ml Balance 328.334 ml 435.0 ml Intake Oral 0 ml IV Total 2003.334 ml 1235.0 ml Output Urine Total 1675 ml 800 ml General Appearance: cachetic HEENT: normocephalic, atraumatic, anicteric, mucous membranes moist Respiratory/Chest: rhonchi Cardiovascular: normal peripheral pulses, normal rate, regular rhythm Abdomen: normal bowel sounds, soft, non tender, no organomegaly, non distended Extremities: no cyanosis, no clubbing, no edema Microbiology Date/Time Source Procedure Growth Status 03/30/19 03:45 Blood Blood Culture - Preliminary Gram Negative Ton Resulted 03/30/19 04:50 Urine,Clean Catch Urine Culture - Preliminary Gram Negative Ton Resulted 03/30/19 06:00 Rectum Received Laboratory Tests 03/31/19 03:10: White Blood Count 16.5H, Red Blood Count 3.33L, Hemoglobin 9.9L, Hematocrit 30.4L, Mean Corpuscular Volume 91, Mean Corpuscular Hemoglobin 29.6, Mean Corpuscular Hemoglobin Concent 32.5, Red Cell Distribution Width 14.3, Platelet Count 163, Mean Platelet Volume 6.3L, Neutrophils (%) (Auto) , Lymphocytes (%) ( Auto) , Monocytes (%) (Auto) , Eosinophils (%) (Auto) , Basophils (%) (Auto) , Differential Total Cells Counted 100, Neutrophils % (Manual) 87H, Lymphocytes % (Manual) 4L, Monocytes % (Manual) 3, Eosinophils % (Manual) 0, Basophils % ( Manual) 0, Myelocytes % 1H, Band Neutrophils 5, Platelet Estimate Adequate, Platelet Morphology Normal, Red Blood Cell Morphology Normal, Sodium Level 135L , Potassium Level 4.1, Chloride Level 104, Carbon Dioxide Level 22, Anion Gap 9 , Blood Urea Nitrogen 32H, Creatinine 1.2, Estimat Glomerular Filtration Rate , Glucose Level 105, Calcium Level 8.8, Total Bilirubin 0.5, Aspartate Amino Transf (AST/SGOT) 35, Alanine Aminotransferase (ALT/SGPT) 25, Alkaline Phosphatase 111, Total Protein 6.9, Albumin 2.7L, Globulin 4.2, Albumin/ Globulin Ratio 0.6L, Random Vancomycin Level 11.2 Current Medications Medications (Trade) Dose Ordered Sig/Wilner Route PRN Reason Start Time Stop Time Status Last Admin Dose Admin Amikacin Protocol (Amikacin pharmacy to dose) 1 ea DAILY PRN MISC Per rx protocol 03/31/19 15:30 04/30/19 15:29 Amikacin Sulfate 900 mg/Sodium Chloride 113.6 ml @ 113.6 mls/ hr Q48H IV 03/31/19 21:00 04/07/19 20:59 Clonazepam (KlonoPIN) 0.5 mg BID ORAL 03/31/19 18:00 04/07/19 17:59 Escitalopram Oxalate (Lexapro) 20 mg DAILY ORAL 03/31/19 14:03 04/30/19 14:02 03/31/19 14:19 Heparin Sodium (Porcine) (Heparin 5000 units/ml) 5,000 units EVERY 12 HOURS SUBQ 11/20/19 09:30 04/29/19 09:29 03/31/19 08:21 Lorazepam (Ativan) 0.5 mg BIDPRN PRN ORAL For Anxiety 03/31/19 14:15 04/07/19 10:59 Meropenem 1 gm/ Sodium Chloride 110 ml @ 220 mls/hr Q12HR IVPB 03/31/19 09:00 04/05/19 08:59 03/31/19 09:42 Pantoprazole (Protonix) 40 mg EVERY 12 HOURS IVP 03/30/19 10:00 04/29/19 09:59 03/31/19 08:20 Rafael Lerma MD Mar 31, 2019 15:41
[2019-03-31 16:00] VITALS: BP 147/80
--- NOTE | 2019-03-31 16:37 | Cardiology Report ---
APPROVED REPORT EXAM: Two-dimensional and M-mode echocardiogram with Doppler and color Doppler. INDICATION Dyspnea M-Mode DIMENSIONS IVSd0.9 (0.7-1.1cm)Left Atrium (MM)2.7 (1.6-4.0cm) LVDd4.2 (3.5-5.6cm)Aortic Root2.3 (2.0-3.7cm) PWd1.0 (0.7-1.1cm)Aortic Cusp Exc.1.7 (1.5-2.0cm) LVDs3.0 (2.5-4.0cm) PWs1.4 cm Technically difficult study due to patient's position. Normal left ventricular chamber size, systolic function and wall motion to extent visualized. Left ventricular ejection fraction estimated to be 55-60 %. No evidence of pericardial effusion. All other cardiac chamber sizes are within normal limits. Focal aortic valve sclerosis with adequate cusp excursion. Thickened mitral valve leaflets with normal excursion. Mitral annulus and aortic root calcification. Normal pulmonic valve structure. Normal tricuspid valve structure. IVC dilated at 2.4 cm with physiologic collapse. A color flow and spectral Doppler study was performed and revealed: No evidence aortic regurgitation. Trace mitral regurgitation. Mitral diastolic velocities suggest reduced left ventricular relaxation c/w mild LV diastolic dysfunction (Grade I ). Trace tricuspid regurgitation. Tricuspid systolic velocities suggests peak right ventricular systolic pressure of 20 mmHg. No evidence pulmonic regurgitation present.
--- NOTE | 2019-03-31 17:09 | Cardiology Report ---
APPROVED REPORT EKG Measurement Heart [id number] CT [id number] Sinus tachycardia with paced beats Possible Left atrial enlargement T wave abnormality, consider inferior ischemia Abnormal ECG
--- NOTE | 2019-03-31 17:32 | Surgery Progress Note ---
Surgery Progress Note Subjective Additional Comments labs noted exam stable ill appearing Objective Last 24 Hour Vital Signs Date Time Temp Pulse Resp B/P (MAP) Pulse Ox O2 Delivery O2 Flow Rate FiO2 03/31/19 12:00 2.0 03/31/19 12:00 Bi-pap 03/31/19 12:00 99.3 129 20 153/71 (98) 94 03/31/19 11:53 92 Nasal Cannula 3.0 32 03/31/19 11:53 126 03/31/19 08:00 2.0 03/31/19 08:00 Bi-pap 03/31/19 08:00 98.1 125 18 135/62 (86) 97 03/31/19 07:41 131 03/31/19 04:00 30 03/31/19 04:00 98.2 130 29 113/65 (81) 97 03/31/19 04:00 Bi-pap 03/31/19 03:26 125 03/31/19 03:10 128 28 96 Facial 30 03/31/19 00:00 128 03/31/19 00:00 98.4 67 20 134/77 (96) 95 03/31/19 00:00 Bi-pap 03/30/19 23:37 120 17 95 Facial 30 03/30/19 21:06 95 4.0 31 03/30/19 21:00 Bi-pap 03/30/19 20:00 95 Venturi Mask 4.0 31 03/30/19 20:00 30 03/30/19 20:00 99.5 107 26 119/83 (95) 97 03/30/19 19:01 131 I&O Intake and Output 03/30/19 03/31/19 19:00 07:00 Intake Total 2003.334 ml 1235.0 ml Output Total 1675 ml 800 ml Balance 328.334 ml 435.0 ml Intake Oral 0 ml IV Total 2003.334 ml 1235.0 ml Output Urine Total 1675 ml 800 ml Dressing: saturated Wound: other Drains: other Cardiovascular: RSR Respiratory: decreased breath sounds Abdomen: soft, present bowel sounds, non-distended Extremities: no cyanosis Laboratory Tests Test 03/31/19 03:10 White Blood Count 16.5 K/UL (4.8-10.8) H Red Blood Count 3.33 M/UL (4.20-5.40) L Hemoglobin 9.9 G/DL (12.0-16.0) L Hematocrit 30.4 % (37.0-47.0) L Mean Corpuscular Volume 91 FL (80-99) Mean Corpuscular Hemoglobin 29.6 PG (27.0-31.0) Mean Corpuscular Hemoglobin Concent 32.5 G/DL (32.0-36.0) Red Cell Distribution Width 14.3 % (11.6-14.8) Platelet Count 163 K/UL (150-450) Mean Platelet Volume 6.3 FL (6.5-10.1) L Neutrophils (%) (Auto) % (45.0-75.0) Lymphocytes (%) (Auto) % (20.0-45.0) Monocytes (%) (Auto) % (1.0-10.0) Eosinophils (%) (Auto) % (0.0-3.0) Basophils (%) (Auto) % (0.0-2.0) Differential Total Cells Counted 100 Neutrophils % (Manual) 87 % (45-75) H Lymphocytes % (Manual) 4 % (20-45) L Monocytes % (Manual) 3 % (1-10) Eosinophils % (Manual) 0 % (0-3) Basophils % (Manual) 0 % (0-2) Myelocytes % 1 % (0-0) H Band Neutrophils 5 % (0-8) Platelet Estimate Adequate Platelet Morphology Normal Red Blood Cell Morphology Normal Sodium Level 135 MMOL/L (136-145) L Potassium Level 4.1 MMOL/L (3.5-5.1) Chloride Level 104 MMOL/L (98-107) Carbon Dioxide Level 22 MMOL/L (21-32) Anion Gap 9 mmol/L (5-15) Blood Urea Nitrogen 32 mg/dL (7-18) H Creatinine 1.2 MG/DL (0.55-1.30) Estimat Glomerular Filtration Rate mL/min (>60) Glucose Level 105 MG/DL (74-106) Calcium Level 8.8 MG/DL (8.5-10.1) Total Bilirubin 0.5 MG/DL (0.2-1.0) Aspartate Amino Transf (AST/SGOT) 35 U/L (15-37) Alanine Aminotransferase (ALT/SGPT) 25 U/L (12-78) Alkaline Phosphatase 111 U/L (46-116) Total Protein 6.9 G/DL (6.4-8.2) Albumin 2.7 G/DL (3.4-5.0) L Globulin 4.2 g/dL Albumin/Globulin Ratio 0.6 (1.0-2.7) L Random Vancomycin Level 11.2 ug/mL Plan Problems: (1) Leukocytosis Assessment & Plan: leukocytosis shift labs noted exam stable Abx as per ID cont IV abx uti vs pna trend labs (2) Decubitus skin ulcer Assessment & Plan: Pt presented on admission with moisture intertrigo R and L breasts. both breast folds are erythematous with denuded skin . DTPI noted to Upper R buttocks. Base of wound is maroon is indurated and elongated with surrounding non-blanching erythema. (L)1cm x (W)4cm. Both heels are soft pink and blanchable.No other skin concerns noted. Tx.Plan: Apply Hydraguard Silicone cream to R and L breasts Daily. Apply Moisture Barrier Paste to Sacrum and R buttocks. Cover with Optifoam drsg. Change every 3 days and prn. Apply Cavilon Skin Barrier to both heels. Cover each heels with Optifoam drsg. Change every 7 days and prn. APM/MARCUS Mattress overlay. Reposition at least every 2hours or as tolerated. Off-load heels with pillow. (3) Limited mobility (4) Constipation (5) Protein-calorie malnutrition, mild Assessment & Plan: DAILY ESTIMATED NEEDS: Needs based on Wound, cardiac, pulmonary, 46kg 25-30 kcals/kg [id number] total kcals 1.25-1.5 g protein/kg 58-69 g total protein 25-30 mL/kg 0832-5883 total fluid mLs NUTRITION DIAGNOSIS: * Increased kcal/prot needs R/T wound healing as evidenced by pt admitted w/ DTPI wound upper right buttocks. * Swallowing difficulty R/T dysphagia as evidenced by pt NPO at this time per PROSECUTING ATTORNEY, MBSS pending. CURRENT DIET:NPO PO DIET RECOMMENDATIONS: LOW NA/ texture per PROSECUTING ATTORNEY ADDITIONAL RECOMMENDATIONS: * Per SNF record, ht=57", tw=145bys. * Wound healing: (w/ oral diet) add MVI x 1, Vit C 250mg QD : Edilberto 1pkt BID as tolerated * Consider checking A1C: h/o DM? * Monitor BGs closely, need for carb controlled diet Robert Orellana Mar 31, 2019 17:32
[2019-03-31] MEDS: clonazePAM 0.5mg tab ORAL SCH (18:16)
[2019-03-31] MEDS ORDERED: FLONASE ALLERG9.9 ML NASAL (19:21)
[2019-03-31] MEDS ORDERED: MAGNESIUM200 M1 PO (19:21)
[2019-03-31] MEDS ORDERED: OYSCO 500+D TA1 EAC1 PO (19:21)
[2019-03-31] MEDS ORDERED: ADVANCED ANTAC355 ML ORAL (19:32)
[2019-03-31 20:00] VITALS: BP 148/84
[2019-03-31] MEDS ORDERED: Amikacin 900 MG in NS 110 ML IV SCH (21:00)
[2019-03-31] MEDS ORDERED: TESSALON PERLE100 MG ORAL (21:00)
[2019-03-31] MEDS ORDERED: ROBITUSSIN NIG237 M1 PO (21:00)
--- NOTE | 2019-03-31 21:15 | Consultation ---
DATE OF CONSULTATION: 03/31/2019 INFECTIOUS DISEASE CONSULTATION CONSULTING PHYSICIAN: Nyasia Grover M.D. ATTENDING PHYSICIAN: Delia Nix M.D. REFERRING PHYSICIAN: Dr. Philipp Moreau. REASON FOR CONSULTATION: Gram-negative bacteremia and sepsis, gram-negative urinary tract infection, pyelonephritis, leukocytosis, fevers, and sepsis syndrome. CHIEF COMPLAINT: The patient's chief complaint coming in to the hospital is altered level of consciousness. HISTORY OF PRESENT ILLNESS: This is a very pleasant 78-year-old female, who I saw yesterday and today, who presented to [facility] with low-grade fevers, leukocytosis, and altered mental status. Workup shows that she has what looks like pulmonary vascular congestion and congestive heart failure on chest x-ray, but urinalysis was significantly positive with too many to count white blood cells and she has gram-negative rods in the blood and urine and likely has gram-negative urinary tract infection possible with pyelonephritis and bacteremia and gram-negative sepsis. Infectious Disease consultation is requested. I was called by microbiology today and also nursing staff and I called meropenem and amikacin with antibiotics and she was on Zosyn, which I discontinued. The patient is more alert today than yesterday. She has a Esqueda. She is in the step-down unit. Case discussed with RN. CARY was noted. Orders were noted. Notes and records were reviewed. REVIEW OF SYSTEMS: CONSTITUTIONAL: Generalized weakness and more alert today. She did have low-grade fever 99.5 initially. She is tachycardic. She is not on pressors. She is more alert and responsive. HEAD AND NECK: No head pain or neck pain. No thrush or dysphagia. CARDIAC: No chest pain or palpitations. GASTROINTESTINAL: No nausea, vomiting, abdominal pain, or diarrhea. GENITOURINARY: She has a Esqueda. No CVA tenderness. PULMONARY: Less shortness of breath and cough. She has mild congestion. SKIN: No new rash. EXTREMITY: No extremity pain. NEUROLOGIC: No seizures. Generalized fatigue and weakness. No fever chills. She did have low-grade fevers coming in. PAST MEDICAL HISTORY: The patient's past medical history includes the following. The patient has a past medical history of acute renal failure, congestive heart failure, possible chronic renal disease. She has a history of COPD. She has a history of GERD, history of anemia, hypertension, hyperlipidemia, IBS, home O2 dependency, encephalopathy, gastritis, hypertension, hyperlipidemia. She has history of degenerative disk disease and degenerative joint disease. She has anemia, anxiety, malnutrition, hypercholesteremia, and history of breast cancer in the past. ALLERGIES: Include oranges, tetracycline, and tomatoes. No penicillin allergies. SOCIAL HISTORY: Negative for smoking, alcohol, or drug abuse. FAMILY HISTORY: Noncontributory. Negative for tuberculosis or cancer. MEDICATIONS: Upon reviewing the MAR, she is on the following medications. She is on amikacin and meropenem. I stopped the vancomycin and Zosyn. She is on lorazepam. She is on Lexapro. She is on Klonopin. She is on pantoprazole and heparin. Outside medications were noted and reconciliated. She was on acetaminophen bisacodyl, aspirin, amlodipine, clonazepam, dicyclomine, docusate, Xopenex, acidophilus, lisinopril, Linzess, lorazepam, oxycodone, pantoprazole, Crestor, ranitidine, and Mylanta. Outside medications were noted and reconciliated. PHYSICAL EXAMINATION: VITAL SIGNS: Temperature is 99.3, pulse rate 129, respiratory rate 20, blood pressure 152/71, and saturation 94% on BiPAP. She is currently off BiPAP. T-max is 99.5. She has had low-grade fevers. GENERAL: Alert, responsive, more alert today. HEAD AND NECK: Oral exam, no thrush. Eye exam, no icterus. Neck is supple. No JVD. Normocephalic. HEART: Regualr. No obvious gallop or murmur. Occasionally irregular. ABDOMEN: Soft. Positive bowel sounds. Nontender. LUNGS: Few bilateral rhonchi and crackles. No definite rales. SKIN: No rash. There is no obvious wounds noted. Pictures reviewed. MUSCULOSKELETAL: No effusions. Legs are without cellulitis. PERIPHERAL VASCULAR: No cyanosis or gangrene. GENITOURINARY: She has a Esqueda. Urine is cloudy. LINE SITES: Without phlebitis. NEUROLOGIC: Generalized weakness and more responsive today. LABORATORY DATA: Laboratory data is as follows. UA had 3+ leukocyte esterase, too many to count white blood cells. Creatinine 1.2. White count 16.5 and hemoglobin 9.9. White count yesterday is 21.2. CULTURES: Blood and urine culture grew gram-negative rods. Identification is pending. Chest x-ray has more likely congestive heart failure with worsening airspace disease. The previous chest x-ray had interstitial congestion. ASSESSMENT AND PLAN: 1. The patient has gram-negative sepsis. The patient likely has gram-negative urinary tract infection, pyelonephritis, complicated urinary tract infection with gram-negative bacteremia. The patient likely also has congestive heart failure on chest x-ray. She has sepsis, leukocytosis, fevers, SIRS criteria, tachycardia, severe sepsis, and acute kidney injury. At this time, the patient was on vancomycin and Zosyn. Earlier today, I changed her to meropenem and amikacin to cover the sepsis, which includes gram-negative urinary tract infection, pyelonephritis, and gram-negative bacteremia, pyelonephritis, and gram-negative sepsis. Monitor leukocytosis and fevers. Continue meropenem and amikacin pending final workup. Check surveillance blood cultures, identification of blood cultures, urine cultures, and adjust antibiotics accordingly. Monitor chest x-ray. 2. Acute kidney injury with elevated creatinine. 3. IBS 4. Congestive heart failure and edema - sob 5. Hypertension. 6. Hyperlipidemia. 7. Blood pressure treatment per primary care team for hypertension. 8. Anemia. 9. Chronic obstructive pulmonary disease. 10. Gastroesophageal reflux disease. 11. Chronic obstructive pulmonary disease and congestive heart failure treatment per primary care team. 12. IBS. 13. Encephalopathy. 14. Gastritis. 15. Anxiety. 16. Hypercholesterolemia and dyslipidemia. 17. Breast cancer. 18. Malnutrition history. 19. Allergies to oranges, tetracycline, and tomatoes. 20. Social history is negative. 21. Family history is noncontributory. 22. MAR is noted. 23. Case was discussed with RN. 24. Skin care protocol. 25. Continue treatment per primary consultants and CAYETANO care. 26. Orders were noted and entered. Nyasia Grover M.D. DR: SIMBA JOB#: [id number] CC: BALDEMAR
[2019-04-01] VITALS (7 sets, daily range): BP systolic 142–163; BP diastolic 69–98
[2019-04-01 04:57] LABS: HEMOGLOBIN 9.9 G/DL (12.0-16.0); MEAN CORPUSCULAR VOLUME 91 FL (80-99); PLATELET COUNT 217 K/UL (150-450); RED CELL DISTRIBUTION WIDTH 14.4 % (11.6-14.8); WHITE BLOOD COUNT 18.3 K/UL (4.8-10.8)
[2019-04-01 05:31] LABS: ALANINE AMINOTRANSFERASE 30 U/L (12-78); ALBUMIN/GLOBULIN RATIO 0.7 (1.0-2.7); ALKALINE PHOSPHATASE 126 U/L (46-116); ANION GAP 13 mmol/L (5-15); ASPARTATE AMINO TRANSFERASE 36 U/L (15-37); BILIRUBIN,TOTAL 0.6 MG/DL (0.2-1.0); BLOOD UREA NITROGEN 19 mg/dL (7-18); CALCIUM 9.6 MG/DL (8.5-10.1); CARBON DIOXIDE 22 MMOL/L (21-32); CHLORIDE 106 MMOL/L (98-107); CREATININE 0.8 MG/DL (0.55-1.30); POTASSIUM 3.1 MMOL/L (3.5-5.1); SODIUM 141 MMOL/L (136-145)
[2019-04-01 05:52] LABS: % IRON SATURATION 7 % (15-50); IRON 15 ug/dL (50-175); TOTAL IRON BINDING CAPACITY 230 ug/dL (250-450)
--- NOTE | 2019-04-01 08:36 | Pulmonology Progress Note ---
Assessment/Plan Problems: (1) UTI (urinary tract infection) Assessment & Plan: E coli (2) Sepsis with acute hypoxic respiratory failure (3) CRISTÓBAL (acute kidney injury) (4) COPD (chronic obstructive pulmonary disease) (5) Anemia (6) Anxiety (7) Hypercholesteremia (8) Hyponatremia (9) Acute and chronic respiratory failure ([id number]-fzkhutb) (10) Hypertension (11) Protein-calorie malnutrition, mild Assessment/Plan ASSESSMENT: The patient is a 78-year-old female with history of COPD, CHF with diastolic dysfunction, GERD, anemia, hypertension, hyperlipidemia, IBS, long-term resident with pulsating comfort measures only and DNR, presenting with altered mental status, hypertension, likely secondary to UTI with urosepsis and hypoxemia secondary to above. PROBLEM LIST: 1. Hypoxemia likely secondary to urosepsis. 2. GNR UTI and GNR sepsis 3. COPD. 4. Home O2 dependence. 5. CHF with diastolic dysfunction. 6. CRISTÓBAL with hyponatremia. 7. Anemia. 8. Recent admission for gastritis. 9. Hypertension, hyperlipidemia, GERD, IBS. 10. DNAR, PULSE comfort measures only. TREATMENT PLAN: 1. D/C BIPAP order alltogether 2. Titrate on FiO2 to keep saturations greater than 90%. 3. Abx per ID 4. Monitor volumes and renal function, D5NS@50 until radha PO. 5. NPO. BUSINESS TEST ANALYST recs ---> VSS @ 11 6. Monitor mental status. 7. DVT prophylaxis, heparin subcutaneous. 8. The patient is DNAR, and has a POLST: comfort measures only, we will need to discuss further goals of care. Subjective Allergies: Coded Allergies: [place] (Unverified Allergy, Mild, upset stomach, 02/10/19) TOMATO (Unverified Allergy, Mild, upset stomach, 02/10/19) TETRACYCLINE (Unverified Allergy, Unknown, 07/24/14) Subjective AFVSS, on 2L, plan for VSS today, no cough, no SOB, no FC Objective Last 24 Hour Vital Signs Date Time Temp Pulse Resp B/P (MAP) Pulse Ox O2 Delivery O2 Flow Rate FiO2 04/01/19 04:00 2.0 04/01/19 04:00 Bi-pap 04/01/19 03:47 98.2 102 18 146/81 (102) 96 04/01/19 03:46 122 04/01/19 01:00 105 143/69 (93) 04/01/19 00:03 160/89 04/01/19 00:00 98.5 112 18 160/89 (112) 97 04/01/19 00:00 Bi-pap 04/01/19 00:00 2.0 03/31/19 23:26 125 03/31/19 20:00 98.8 122 18 148/84 (105) 96 03/31/19 20:00 2.0 03/31/19 20:00 Bi-pap 03/31/19 19:25 131 03/31/19 18:49 94 Nasal Cannula 2.0 28 03/31/19 16:00 98.2 120 18 147/80 (102) 95 03/31/19 16:00 Bi-pap 03/31/19 16:00 121 03/31/19 16:00 2.0 03/31/19 12:00 2.0 03/31/19 12:00 Bi-pap 03/31/19 12:00 99.3 129 20 153/71 (98) 94 03/31/19 11:53 92 Nasal Cannula 3.0 32 03/31/19 11:53 126 Intake and Output 03/31/19 04/01/19 19:00 07:00 Intake Total 333.6 ml Output Total 1300 ml 2300 ml Balance -1300 ml -1966.4 ml IV Total 333.6 ml Output Urine Total 1300 ml 2300 ml General Appearance: no acute distress, other - elderly confused HEENT: normocephalic, atraumatic, anicteric, mucous membranes moist Respiratory/Chest: chest wall non-tender, lungs clear, normal breath sounds, no respiratory distress, no accessory muscle use Cardiovascular: normal peripheral pulses, normal rate, regular rhythm Abdomen: normal bowel sounds, soft, non tender, no organomegaly, non distended , no mass Extremities: no cyanosis, no clubbing, no edema Microbiology Date/Time Source Procedure Growth Status 03/30/19 04:00 Blood Blood Culture - Preliminary NO GROWTH AFTER 48 HOURS Resulted 03/30/19 03:45 Blood Blood Culture - Preliminary Gram Negative Ton Resulted 03/30/19 04:50 Urine,Clean Catch Urine Culture - Final Escherichia Coli - Esbl Complete 03/30/19 06:00 Rectum - Final NO CARBAPENEM-RESISTANT ENTEROBACTERI... Complete 03/30/19 06:00 Rectum VRE Culture - Final NO VANCOMYCIN RESISTANT ENTEROCOCCUS ... Complete Laboratory Tests 04/01/19 03:40: White Blood Count 18.3H, Red Blood Count 3.30L, Hemoglobin 9.9L, Hematocrit 30.0L, Mean Corpuscular Volume 91, Mean Corpuscular Hemoglobin 30.0, Mean Corpuscular Hemoglobin Concent 33.0, Red Cell Distribution Width 14.4, Platelet Count 217, Mean Platelet Volume 6.0L, Neutrophils (%) (Auto) , Lymphocytes (%) ( Auto) , Monocytes (%) (Auto) , Eosinophils (%) (Auto) , Basophils (%) (Auto) , Neutrophils % (Manual) [Pending], Lymphocytes % (Manual) [Pending], Platelet Estimate [Pending], Platelet Morphology [Pending], Sodium Level 141, Potassium Level 3.1L, Chloride Level 106, Carbon Dioxide Level 22, Anion Gap 13, Blood Urea Nitrogen 19H, Creatinine 0.8, Estimat Glomerular Filtration Rate , Glucose Level 120H, Calcium Level 9.6, Iron Level 15L, Total Iron Binding Capacity 230L , Percent Iron Saturation 7L, Unsaturated Iron Binding 215, Total Bilirubin 0.6 , Aspartate Amino Transf (AST/SGOT) 36, Alanine Aminotransferase (ALT/SGPT) 30, Alkaline Phosphatase 126H, Total Protein 7.6, Albumin 3.0L, Globulin 4.6, Albumin/Globulin Ratio 0.7L Current Medications Medications (Trade) Dose Ordered Sig/Wilner Route PRN Reason Start Time Stop Time Status Last Admin Dose Admin Amikacin Protocol (Amikacin pharmacy to dose) 1 ea DAILY PRN MISC Per rx protocol 03/31/19 15:30 04/30/19 15:29 Amikacin Sulfate 900 mg/Sodium Chloride 113.6 ml @ 113.6 mls/ hr Q48H IV 03/31/19 21:00 04/07/19 20:59 03/31/19 20:25 Ascorbic Acid (Vitamin C) 250 mg DAILY ORAL 04/01/19 09:00 05/01/19 08:59 Clonazepam (KlonoPIN) 0.5 mg BID ORAL 03/31/19 18:00 04/07/19 17:59 03/31/19 18:16 Escitalopram Oxalate (Lexapro) 20 mg DAILY ORAL 03/31/19 14:03 04/30/19 14:02 03/31/19 14:19 Heparin Sodium (Porcine) (Heparin 5000 units/ml) 5,000 units EVERY 12 HOURS SUBQ 03/30/19 09:30 04/29/19 09:29 03/31/19 20:26 Hydralazine HCl (Apresoline) 10 mg Q4H PRN IV sbp>150 03/31/19 16:00 04/30/19 15:59 04/01/19 00:03 Lorazepam (Ativan) 0.5 mg BIDPRN PRN ORAL For Anxiety 03/31/19 14:15 04/07/19 10:59 Meropenem 1 gm/ Sodium Chloride 110 ml @ 220 mls/hr Q12HR IVPB 03/31/19 09:00 04/05/19 08:59 03/31/19 21:23 Multivitamins (Multivitamins) 1 tab DAILY ORAL 04/01/19 09:00 05/01/19 08:59 Pantoprazole (Protonix) 40 mg EVERY 12 HOURS IVP 03/30/19 10:00 04/29/19 09:59 03/31/19 20:25 Rafael Lerma MD Apr 01, 2019 08:36
[2019-04-01] MEDS ORDERED: D5NS 1,000 ML IV SCH (09:00)
[2019-04-01] MEDS ORDERED: Amikacin 900 MG in NS 110 ML IV SCH (09:00)
[2019-04-01] MEDS: Pantoprazole Inj IVP SCH ×2 (09:05→20:21)
[2019-04-01] MEDS: Meropenem 1gm/NS 110ml IVPB SCH ×4 (09:05→20:21)
[2019-04-01] MEDS: Ascorbic Acid 500mg tab ORAL SCH (09:06)
[2019-04-01] MEDS: clonazePAM 0.5mg tab ORAL SCH ×2 (09:06→18:22)
[2019-04-01] MEDS: Heparin 5000 units/ml inj SUBQ SCH ×2 (09:07→20:25)
--- NOTE | 2019-04-01 09:15 | Consultation ---
DATE OF CONSULTATION: 03/31/2019 CONSULTING PHYSICIAN: Wan Stern M.D. HISTORY OF PRESENT ILLNESS: This is a 78-year-old female with a history of anxiety disorder, depression, severe COPD, GERD, hypertension, and hyperlipidemia, who is well known to this physician from [place]. The patient was found nonresponsive, brought into the emergency room, and was found to have sepsis. Today, the patient is more alert, agitated, and confused. She was unable to recognize me. The patient was yelling, screaming, attempting to come out of bed. At baseline, the patient is alert and oriented x4; however, severely agitated. PAST PSYCHIATRIC HISTORY: Depression and anxiety. PAST MEDICAL HISTORY: Significant for diabetes mellitus, depression, COPD, CHF, respiratory failure, questionable UTI, breast cancer, and hypertension. ALLERGIES: Tetracycline. SUBSTANCE USE HISTORY: The patient is dependent to benzodiazepines. She has been taking benzodiazepines for more than two decades and she has been unable to come off of it. MENTAL STATUS EXAMINATION: The patient is alert and oriented to self. Disoriented. Confused. Mood was agitated. Affect was flat. Thought process, tangential. Thought content, no suicidal or homicidal ideation. Memory is impaired. Insight and judgment, nonexistent. ASSESSMENT: AXIS I: Acute toxic encephalopathy. Anxiety disorder. Major depressive disorder. AXIS II: Deferred. AXIS III: . AXIS IV: Low. AXIS V: 20. PLAN: 1. We will continue the Ativan p.r.n. 2. We will continue Lexapro. 3. Klonopin. Wan Stern M.D. DR: LUZ MARIA JOB#: [id number] CC:
--- NOTE | 2019-04-01 09:44 | General Progress Note ---
Assessment/Plan Problem List: (1) Acute and chronic respiratory failure ([id number]) ICD Codes: J96.20 - Acute and chr resp failure, unsp w hypoxia or hypercapnia SNOMED: 05605333 (2) Respiratory failure with hypoxia ICD Codes: J96.91 - Respiratory failure, unspecified with hypoxia SNOMED: 52838439010438773 (3) Gram-negative bacteremia ICD Codes: R78.81 - Bacteremia SNOMED: 959515233963 (4) Severe sepsis ICD Codes: A41.9 - Sepsis, unspecified organism; R65.20 - Severe sepsis without septic shock SNOMED: 12647581 (5) CRISTÓBAL (acute kidney injury) ICD Codes: N17.9 - Acute kidney failure, unspecified SNOMED: 87839122, 9352768, 035935575 (6) UTI (urinary tract infection) ICD Codes: N39.0 - Urinary tract infection, site not specified SNOMED: 71288561, 33770096, 944074204 (7) Hyponatremia ICD Codes: E87.1 - Hypo-osmolality and hyponatremia SNOMED: 82080021 (8) COPD (chronic obstructive pulmonary disease) ICD Codes: J44.9 - Chronic obstructive pulmonary disease, unspecified SNOMED: 18326427 (9) Anemia ICD Codes: D64.9 - Anemia, unspecified SNOMED: 120783429 (10) Anxiety ICD Codes: F41.9 - Anxiety disorder, unspecified SNOMED: 35313930 (11) Hypertension ICD Codes: I10 - Essential (primary) hypertension SNOMED: 26229212 (12) History of breast cancer ICD Codes: Z85.3 - Personal history of malignant neoplasm of breast SNOMED: 263032365 (13) Diastolic CHF ICD Codes: I50.30 - Unspecified diastolic (congestive) heart failure SNOMED: 46716003, 690156840 (14) Hypercholesteremia ICD Codes: E78.00 - Pure hypercholesterolemia, unspecified SNOMED: 78139747 (15) Protein-calorie malnutrition, mild ICD Codes: E44.1 - Mild protein-calorie malnutrition SNOMED: 69603145 Status: progressing - much improvement Assessment/Plan: 78-year-old female with PMHx of COPD on 2L O2, HTN, diastolic CHF, chronic, osteoporosis, IBS-C, DDD, anemia and UTI sent from SNF for fever, lethargy, and congestion. #Severe sepsis/ septic shock secondary to pneumonia, ? aspiration ?HCAP vs. UTI , gram negative bacteremia, gram negative UTI. resolving #Acute on chronic hypoxic respiratory failure- responding to non invasive positive pressure ventilation #CRISTÓBAL- prerenal- resolved #diastolic CHF, possible acute exacerbation, however on exam, she is hypovolemic #Hyponatremia- hypovolemic, resolved #COPD on home O2, doubt exacerbation #HTN, HLD #Normocytic Anemia- stable #Anxiety/depression #Mild protein calorie malnutrition -s/p IV hydration, stopped, resume d5ns @50 while npo -Broad spectrum antibiotics: s/p Zosyn, Vancomycin and Azithromycin. Renal dose. Per ID switch to Amikacin and meropenem. -stop bipap prn, titrate to keep SpO2 >90% -ID and pulmonary consults -Repeat Echocardiogram - Duo-Nebs Q6hr PRN SOB/Wheezing - continue home Singulair -Monitor renal function, continue shi, if cr without improvement, renal consult - resume ACEi - resume Amlodipine 10mg PO daily - hold stain and ASA while npo - hold lyrica 75mg PO BID - resume Lexapro 20mg Po daily, Resume Klonipin and ativan prn. Psychiatry consult with Dr. Stern who know her from SNF - hold Colace 100mg Po BID - hold simethecone 125mg PO TID #Goals of care - DNR/DNI, POLST reviewed FENPPx Fluids: 1 L bolus, reassess Diet: NPO, speech and swallow evaluation, advance diet as tolerated DVTPPx: Heparin SBQ q12 GI PPX: PPI IV PT/OT: pending Code status: DNR/DNI, per polst Dispo: Back to SNF pending clinical course I spent 40 minutes on this encounter, 20 minutes spent on counselling and care coordination D/w RN, general surgery: Dr. Orellana, pulmonary: Dr. Lerma, ID: Dr. Grady. and sister Diane at bedside. Subjective Date patient seen: Apr 01, 2019 ROS Limited/Unobtainable: Yes Allergies: Coded Allergies: [place] (Unverified Allergy, Mild, upset stomach, 02/10/19) TOMAT[place] (Unverified Allergy, Mild, upset stomach, 02/10/19) TETRACYCLINE (Unverified Allergy, Unknown, 07/24/14) Subjective Off bipap. wbc trending up again , renal function much better. She is calm and sleeping, arousable. Tele reviewed. Sinus tachycardia. BP on the high side. for barium swallow today to assess swallow function. Objective Last 24 Hour Vital Signs Date Time Temp Pulse Resp B/P (MAP) Pulse Ox O2 Delivery O2 Flow Rate FiO2 04/01/19 09:26 93 Nasal Cannula 4.0 36 04/01/19 08:00 98.2 126 21 163/85 (111) 96 04/01/19 04:00 2.0 04/01/19 04:00 Bi-pap 04/01/19 03:47 98.2 102 18 146/81 (102) 96 04/01/19 03:46 122 04/01/19 01:00 105 143/69 (93) 04/01/19 00:03 160/89 04/01/19 00:00 98.5 112 18 160/89 (112) 97 04/01/19 00:00 Bi-pap 04/01/19 00:00 2.0 03/31/19 23:26 125 03/31/19 20:00 98.8 122 18 148/84 (105) 96 03/31/19 20:00 2.0 03/31/19 20:00 Bi-pap 03/31/19 19:25 131 03/31/19 18:49 94 Nasal Cannula 2.0 28 03/31/19 16:00 98.2 120 18 147/80 (102) 95 03/31/19 16:00 Bi-pap 03/31/19 16:00 121 03/31/19 16:00 2.0 03/31/19 12:00 2.0 03/31/19 12:00 Bi-pap 03/31/19 12:00 99.3 129 20 153/71 (98) 94 03/31/19 11:53 92 Nasal Cannula 3.0 32 03/31/19 11:53 126 Intake and Output 03/31/19 04/01/19 19:00 07:00 Intake Total 333.6 ml Output Total 1300 ml 2300 ml Balance -1300 ml -1966.4 ml IV Total 333.6 ml Output Urine Total 1300 ml 2300 ml Laboratory Tests 04/01/19 03:40: White Blood Count 18.3H, Red Blood Count 3.30L, Hemoglobin 9.9L, Hematocrit 30.0L, Mean Corpuscular Volume 91, Mean Corpuscular Hemoglobin 30.0, Mean Corpuscular Hemoglobin Concent 33.0, Red Cell Distribution Width 14.4, Platelet Count 217, Mean Platelet Volume 6.0L, Neutrophils (%) (Auto) , Lymphocytes (%) ( Auto) , Monocytes (%) (Auto) , Eosinophils (%) (Auto) , Basophils (%) (Auto) , Differential Total Cells Counted 100, Neutrophils % (Manual) 87H, Lymphocytes % (Manual) 11L, Monocytes % (Manual) 2, Eosinophils % (Manual) 0, Basophils % ( Manual) 0, Band Neutrophils 0, Platelet Estimate Adequate, Platelet Morphology Normal, Anisocytosis 1+, Sodium Level 141, Potassium Level 3.1L, Chloride Level 106, Carbon Dioxide Level 22, Anion Gap 13, Blood Urea Nitrogen 19H, Creatinine 0.8, Estimat Glomerular Filtration Rate , Glucose Level 120H, Calcium Level 9.6 , Iron Level 15L, Total Iron Binding Capacity 230L, Percent Iron Saturation 7L, Unsaturated Iron Binding 215, Total Bilirubin 0.6, Aspartate Amino Transf (AST/ SGOT) 36, Alanine Aminotransferase (ALT/SGPT) 30, Alkaline Phosphatase 126H, Total Protein 7.6, Albumin 3.0L, Globulin 4.6, Albumin/Globulin Ratio 0.7L 04/01/19 09:00: Random Amikacin Level [Pending] Height (Feet): 5 Height (Inches): 4.00 Weight (Pounds): 134 Objective General Appearance: sleeping, easily arousable, alert and oriented to self ( baseline x4), off bipap Lines, tubes and drains: peripheral HEENT: normocephalic, atraumatic, PERRL, EOMI, no JVD, DRY MM Neck: non-tender, normal alignment, supple Respiratory/Chest: rales and rhonchi Cardiovascular/Chest: tachycardic, regular rhythm, no m/r/g Abdomen: normal bowel sounds, soft, obese, non tender Extremities: normal range of motion, non-tender, normal inspection, moves all ext, no edema Skin Exam: poor turger, refer to photos , stage 2 sacral decub Neurologic: lethargic, unable to assess, moves all four limbs Musculoskeletal: normal muscle bulk, no effusion, atrophy Philipp Moreau M.D. Apr 01, 2019 09:44
--- NOTE | 2019-04-01 11:02 | General Progress Note ---
Assessment/Plan Status: progressing - much improvement Assessment/Plan: GI: Plan Problems: (1) GERD (gastroesophageal reflux disease) (2) Anemia (3) Protein-calorie malnutrition, mild (4) Severe sepsis Plan History of endoscopy and colonoscopy on February 11, 2019 noted with gastritis and one colonic polyp. No plan for any GI procedures at this time given recent history of procedure and unstable respiratory status. Obtain anemia work-up Fecal occult blood stool to rule out any GI bleed PPI daily Monitor H&H, PRN transfusions Antibiotics per infectious diseases We will follow on a daily basis with additional recommendations. pending video swallow eval for today Subjective ROS Limited/Unobtainable: Yes Allergies: Coded Allergies: [place] (Unverified Allergy, Mild, upset stomach, 02/10/19) TOMATO (Unverified Allergy, Mild, upset stomach, 02/10/19) TETRACYCLINE (Unverified Allergy, Unknown, 07/24/14) Objective Last 24 Hour Vital Signs Date Time Temp Pulse Resp B/P (MAP) Pulse Ox O2 Delivery O2 Flow Rate FiO2 04/01/19 10:46 163/85 04/01/19 09:26 93 Nasal Cannula 4.0 36 04/01/19 08:00 98.2 126 21 163/85 (111) 96 04/01/19 04:00 2.0 04/01/19 04:00 Bi-pap 04/01/19 03:47 98.2 102 18 146/81 (102) 96 04/01/19 03:46 122 04/01/19 01:00 105 143/69 (93) 04/01/19 00:03 160/89 04/01/19 00:00 98.5 112 18 160/89 (112) 97 04/01/19 00:00 Bi-pap 04/01/19 00:00 2.0 03/31/19 23:26 125 03/31/19 20:00 98.8 122 18 148/84 (105) 96 03/31/19 20:00 2.0 03/31/19 20:00 Bi-pap 03/31/19 19:25 131 03/31/19 18:49 94 Nasal Cannula 2.0 28 03/31/19 16:00 98.2 120 18 147/80 (102) 95 03/31/19 16:00 Bi-pap 03/31/19 16:00 121 03/31/19 16:00 2.0 03/31/19 12:00 2.0 03/31/19 12:00 Bi-pap 03/31/19 12:00 99.3 129 20 153/71 (98) 94 03/31/19 11:53 92 Nasal Cannula 3.0 32 03/31/19 11:53 126 Intake and Output 03/31/19 04/01/19 19:00 07:00 Intake Total 333.6 ml Output Total 1300 ml 2300 ml Balance -1300 ml -1966.4 ml IV Total 333.6 ml Output Urine Total 1300 ml 2300 ml Laboratory Tests 04/01/19 03:40: White Blood Count 18.3H, Red Blood Count 3.30L, Hemoglobin 9.9L, Hematocrit 30.0L, Mean Corpuscular Volume 91, Mean Corpuscular Hemoglobin 30.0, Mean Corpuscular Hemoglobin Concent 33.0, Red Cell Distribution Width 14.4, Platelet Count 217, Mean Platelet Volume 6.0L, Neutrophils (%) (Auto) , Lymphocytes (%) ( Auto) , Monocytes (%) (Auto) , Eosinophils (%) (Auto) , Basophils (%) (Auto) , Differential Total Cells Counted 100, Neutrophils % (Manual) 87H, Lymphocytes % (Manual) 11L, Monocytes % (Manual) 2, Eosinophils % (Manual) 0, Basophils % ( Manual) 0, Band Neutrophils 0, Platelet Estimate Adequate, Platelet Morphology Normal, Anisocytosis 1+, Sodium Level 141, Potassium Level 3.1L, Chloride Level 106, Carbon Dioxide Level 22, Anion Gap 13, Blood Urea Nitrogen 19H, Creatinine 0.8, Estimat Glomerular Filtration Rate , Glucose Level 120H, Calcium Level 9.6 , Iron Level 15L, Total Iron Binding Capacity 230L, Percent Iron Saturation 7L, Unsaturated Iron Binding 215, Total Bilirubin 0.6, Aspartate Amino Transf (AST/ SGOT) 36, Alanine Aminotransferase (ALT/SGPT) 30, Alkaline Phosphatase 126H, Total Protein 7.6, Albumin 3.0L, Globulin 4.6, Albumin/Globulin Ratio 0.7L 04/01/19 09:00: Random Amikacin Level [Pending] Height (Feet): 5 Height (Inches): 4.00 Weight (Pounds): 134 General Appearance: confused EENT: normal ENT inspection Neck: supple Cardiovascular: normal rate Respiratory/Chest: decreased breath sounds Abdomen: normal bowel sounds, non tender, soft Extremities: non-tender Kapil Arshad MD Apr 01, 2019 11:02
[2019-04-01] MEDS ORDERED: Varibar Pudding 230ml MC PRN (12:45)
[2019-04-01] MEDS ORDERED: Varibar Honey 250ml MC PRN (12:45)
[2019-04-01] MEDS ORDERED: Varibar Nectar 240ml MC PRN (12:45)
--- NOTE | 2019-04-01 15:24 | Surgery Progress Note ---
Surgery Progress Note Subjective Symptoms: voiding well, passing flatus, other, pain decreased Objective Last 24 Hour Vital Signs Date Time Temp Pulse Resp B/P (MAP) Pulse Ox O2 Delivery O2 Flow Rate FiO2 04/01/19 12:00 Bi-pap 04/01/19 12:00 2.0 04/01/19 12:00 96.4 125 21 143/98 (113) 95 04/01/19 10:46 163/85 04/01/19 09:26 93 Nasal Cannula 4.0 36 04/01/19 08:00 2.0 04/01/19 08:00 98.2 126 21 163/85 (111) 96 04/01/19 08:00 Bi-pap 04/01/19 07:52 119 04/01/19 04:00 2.0 04/01/19 04:00 Bi-pap 04/01/19 03:47 98.2 102 18 146/81 (102) 96 04/01/19 03:46 122 04/01/19 01:00 105 143/69 (93) 04/01/19 00:03 160/89 04/01/19 00:00 98.5 112 18 160/89 (112) 97 04/01/19 00:00 Bi-pap 04/01/19 00:00 2.0 03/31/19 23:26 125 03/31/19 20:00 98.8 122 18 148/84 (105) 96 03/31/19 20:00 2.0 03/31/19 20:00 Bi-pap 03/31/19 19:25 131 03/31/19 18:49 94 Nasal Cannula 2.0 28 03/31/19 16:00 98.2 120 18 147/80 (102) 95 03/31/19 16:00 Bi-pap 03/31/19 16:00 121 03/31/19 16:00 2.0 I&O Intake and Output 03/31/19 04/01/19 19:00 07:00 Intake Total 333.6 ml Output Total 1300 ml 2300 ml Balance -1300 ml -1966.4 ml IV Total 333.6 ml Output Urine Total 1300 ml 2300 ml Dressing: saturated Wound: clean Drains: other Cardiovascular: RSR Respiratory: decreased breath sounds Abdomen: soft, present bowel sounds Extremities: no cyanosis Laboratory Tests Test 04/01/19 03:40 04/01/19 09:00 White Blood Count 18.3 K/UL (4.8-10.8) H Red Blood Count 3.30 M/UL (4.20-5.40) L Hemoglobin 9.9 G/DL (12.0-16.0) L Hematocrit 30.0 % (37.0-47.0) L Mean Corpuscular Volume 91 FL (80-99) Mean Corpuscular Hemoglobin 30.0 PG (27.0-31.0) Mean Corpuscular Hemoglobin Concent 33.0 G/DL (32.0-36.0) Red Cell Distribution Width 14.4 % (11.6-14.8) Platelet Count 217 K/UL (150-450) Mean Platelet Volume 6.0 FL (6.5-10.1) L Neutrophils (%) (Auto) % (45.0-75.0) Lymphocytes (%) (Auto) % (20.0-45.0) Monocytes (%) (Auto) % (1.0-10.0) Eosinophils (%) (Auto) % (0.0-3.0) Basophils (%) (Auto) % (0.0-2.0) Differential Total Cells Counted 100 Neutrophils % (Manual) 87 % (45-75) H Lymphocytes % (Manual) 11 % (20-45) L Monocytes % (Manual) 2 % (1-10) Eosinophils % (Manual) 0 % (0-3) Basophils % (Manual) 0 % (0-2) Band Neutrophils 0 % (0-8) Platelet Estimate Adequate Platelet Morphology Normal Anisocytosis 1+ Sodium Level 141 MMOL/L (136-145) Potassium Level 3.1 MMOL/L (3.5-5.1) L Chloride Level 106 MMOL/L (98-107) Carbon Dioxide Level 22 MMOL/L (21-32) Anion Gap 13 mmol/L (5-15) Blood Urea Nitrogen 19 mg/dL (7-18) H Creatinine 0.8 MG/DL (0.55-1.30) Estimat Glomerular Filtration Rate mL/min (>60) Glucose Level 120 MG/DL (74-106) H Calcium Level 9.6 MG/DL (8.5-10.1) Iron Level 15 ug/dL (50-175) L Total Iron Binding Capacity 230 ug/dL (250-450) L Percent Iron Saturation 7 % (15-50) L Unsaturated Iron Binding 215 ug/dL (112-346) Total Bilirubin 0.6 MG/DL (0.2-1.0) Aspartate Amino Transf (AST/SGOT) 36 U/L (15-37) Alanine Aminotransferase (ALT/SGPT) 30 U/L (12-78) Alkaline Phosphatase 126 U/L (46-116) H Total Protein 7.6 G/DL (6.4-8.2) Albumin 3.0 G/DL (3.4-5.0) L Globulin 4.6 g/dL Albumin/Globulin Ratio 0.7 (1.0-2.7) L Random Amikacin Level Pending Plan Problems: (1) Leukocytosis Assessment & Plan: leukocytosis shift labs noted exam stable Abx as per ID cont IV abx uti vs pna trend labs (2) Decubitus skin ulcer Assessment & Plan: Pt presented on admission with moisture intertrigo R and L breasts. both breast folds are erythematous with denuded skin . DTPI noted to Upper R buttocks. Base of wound is maroon is indurated and elongated with surrounding non-blanching erythema. (L)1cm x (W)4cm. Both heels are soft pink and blanchable.No other skin concerns noted. Tx.Plan: Apply Hydraguard Silicone cream to R and L breasts Daily. Apply Moisture Barrier Paste to Sacrum and R buttocks. Cover with Optifoam drsg. Change every 3 days and prn. Apply Cavilon Skin Barrier to both heels. Cover each heels with Optifoam drsg. Change every 7 days and prn. APM/MARCUS Mattress overlay. Reposition at least every 2hours or as tolerated. Off-load heels with pillow. (3) Limited mobility (4) Constipation (5) Protein-calorie malnutrition, mild Assessment & Plan: DAILY ESTIMATED NEEDS: Needs based on Wound, cardiac, pulmonary, 46kg 25-30 kcals/kg 9314-8793 total kcals 1.25-1.5 g protein/kg 58-69 g total protein 25-30 mL/kg 6421-6599 total fluid mLs NUTRITION DIAGNOSIS: * Increased kcal/prot needs R/T wound healing as evidenced by pt admitted w/ DTPI wound upper right buttocks. * Swallowing difficulty R/T dysphagia as evidenced by pt NPO at this time per BUILDING ASSOCIATE, MBSS pending. CURRENT DIET:NPO PO DIET RECOMMENDATIONS: LOW NA/ texture per BUILDING ASSOCIATE ADDITIONAL RECOMMENDATIONS: * Per SNF record, ht=57", nr=660qmb. * Wound healing: (w/ oral diet) add MVI x 1, Vit C 250mg QD : Edilberto 1pkt BID as tolerated * Consider checking A1C: h/o DM? * Monitor BGs closely, need for carb controlled diet Robert Orellana Apr 01, 2019 15:24
[2019-04-01] MEDS ORDERED: ATROVENT HFA12.9 GM HHN (17:34)
[2019-04-01] MEDS ORDERED: MAGIC MOUTHWASH PO (17:34)
[2019-04-01] MEDS ORDERED: OXYCODONE HCL5 MG ORAL (17:34)
[2019-04-01] MEDS ORDERED: LISINOPRIL20 MG ORAL (17:34)
[2019-04-01] MEDS ORDERED: XOPENEX0.63 MG/3 HHN (17:34)
[2019-04-01] MEDS ORDERED: ATIVAN0.5 MG ORAL (17:34)
--- NOTE | 2019-04-01 20:00 | Progress Note ---
DATE: 04/01/2019 SUBJECTIVE: The patient is asleep. Continues to have tachycardia with anxiety. Has waxing and waning consciousness. More confused than baseline. Gradually improving. MENTAL STATUS EXAMINATION: The patient is asleep, arousable. Oriented to self and place. Mood is anxious. Affect is flat. Thought process is tangential. Thought content, no suicidal or homicidal ideation. Cognition is impaired. Insight and judgment is limited. ASSESSMENT: 1. Acute encephalopathy. 2. Anxiety disorder. 3. Major depressive disorder. PLAN: 1. We will continue the Ativan. 2. Continue Klonopin. 3. Lexapro 20 mg in the morning. 4. Discussed with the nurse. 5. Awaiting swallow eval. Wan Stern M.D. DR: KAYDEN JOB#: [id number] CC:
[2019-04-02] VITALS (7 sets, daily range): BP systolic 129–168; BP diastolic 67–96
[2019-04-02 05:46] LABS: BASOPHILS % (AUTO) 0.2 % (0.0-2.0); HEMATOCRIT 33.1 % (37.0-47.0); HEMOGLOBIN 10.9 G/DL (12.0-16.0); LYMPHOCYTES % (AUTO) 7.9 % (20.0-45.0); MEAN CORPUSCULAR VOLUME 90 FL (80-99); NEUTROPHILS % (AUTO) 84.9 % (45.0-75.0); PLATELET COUNT 263 K/UL (150-450); RED BLOOD COUNT 3.68 M/UL (4.20-5.40); RED CELL DISTRIBUTION WIDTH 14.1 % (11.6-14.8); WHITE BLOOD COUNT 13.4 K/UL (4.8-10.8)
[2019-04-02 05:57] LABS: ANION GAP 14 mmol/L (5-15); BLOOD UREA NITROGEN 18 mg/dL (7-18); CALCIUM 10.7 MG/DL (8.5-10.1); CARBON DIOXIDE 24 MMOL/L (21-32); CHLORIDE 110 MMOL/L (98-107); CREATININE 0.9 MG/DL (0.55-1.30); POTASSIUM 3.4 MMOL/L (3.5-5.1); SODIUM 148 MMOL/L (136-145)
--- NOTE | 2019-04-02 07:19 | General Progress Note ---
Assessment/Plan Status: progressing - much improvement Assessment/Plan: GI: Plan Problems: (1) GERD (gastroesophageal reflux disease) (2) Anemia (3) Protein-calorie malnutrition, mild (4) Severe sepsis (5) Decub ulcer (6) malnutrition Plan History of endoscopy and colonoscopy on February 11, 2019 noted with gastritis and one colonic polyp. No plan for any GI procedures at this time given recent history of procedure and unstable respiratory status. Obtain anemia work-up Fecal occult blood stool to rule out any GI bleed PPI daily Monitor H&H, PRN transfusions Antibiotics per infectious diseases We will follow on a daily basis with additional recommendations. passed swallow eval for puree diet but poor po intake add marinol calorie count may need peg wound care Subjective Allergies: Coded Allergies: [place] (Unverified Allergy, Mild, upset stomach, 02/10/19) TOMATO (Unverified Allergy, Mild, upset stomach, 02/10/19) TETRACYCLINE (Unverified Allergy, Unknown, 07/24/14) Objective Last 24 Hour Vital Signs Date Time Temp Pulse Resp B/P (MAP) Pulse Ox O2 Delivery O2 Flow Rate FiO2 04/02/19 04:00 129 04/02/19 04:00 Bi-pap 04/02/19 04:00 2.0 04/02/19 03:56 96.7 121 20 145/75 (98) 97 04/02/19 02:00 121 147/84 (105) 04/02/19 00:09 168/96 04/02/19 00:00 97.8 112 20 168/96 (120) 98 04/02/19 00:00 Bi-pap 04/02/19 00:00 2.0 04/01/19 23:57 118 04/01/19 20:00 97.8 118 22 142/86 (104) 96 04/01/19 20:00 Bi-pap 04/01/19 20:00 2.0 04/01/19 19:35 126 04/01/19 18:22 158/94 04/01/19 16:13 121 04/01/19 16:00 2.0 04/01/19 16:00 97.7 128 19 158/94 (115) 97 04/01/19 16:00 Bi-pap 04/01/19 12:14 123 04/01/19 12:00 Bi-pap 04/01/19 12:00 2.0 04/01/19 12:00 96.4 125 21 143/98 (113) 95 04/01/19 10:46 163/85 04/01/19 09:26 93 Nasal Cannula 4.0 36 04/01/19 08:00 2.0 04/01/19 08:00 98.2 126 21 163/85 (111) 96 04/01/19 08:00 Bi-pap 04/01/19 07:52 119 Intake and Output 04/01/19 04/02/19 18:59 06:59 Intake Total 540 ml 110 ml Output Total 1900 ml 600 ml Balance -1360 ml -490 ml Intake Oral 240 ml IV Total 300 ml 110 ml Output Urine Total 1900 ml 600 ml Laboratory Tests 04/01/19 09:00: Random Amikacin Level 14.5 04/02/19 03:35: White Blood Count 13.4H, Red Blood Count 3.68L, Hemoglobin 10.9L, Hematocrit 33.1L, Mean Corpuscular Volume 90, Mean Corpuscular Hemoglobin 29.5, Mean Corpuscular Hemoglobin Concent 32.8, Red Cell Distribution Width 14.1, Platelet Count 263, Mean Platelet Volume 5.8L, Neutrophils (%) (Auto) 84.9H, Lymphocytes (%) (Auto) 7.9L, Monocytes (%) (Auto) 7.0, Eosinophils (%) (Auto) 0.0, Basophils (%) (Auto) 0.2, Sodium Level 148H, Potassium Level 3.4L, Chloride Level 110H, Carbon Dioxide Level 24, Anion Gap 14, Blood Urea Nitrogen 18, Creatinine 0.9, Estimat Glomerular Filtration Rate , Glucose Level 142H, Calcium Level 10.7H Height (Feet): 5 Height (Inches): 4.00 Weight (Pounds): 134 General Appearance: no apparent distress EENT: normal ENT inspection Neck: supple Cardiovascular: normal rate Respiratory/Chest: decreased breath sounds Abdomen: normal bowel sounds, non tender, soft Extremities: non-tender Kapil Arshad MD Apr 02, 2019 07:19
[2019-04-02] MEDS ORDERED: Amikacin 900 MG in NS 110 ML IV SCH (09:00)
[2019-04-02] MEDS: Pantoprazole Inj IVP SCH ×2 (09:15→20:04)
[2019-04-02] MEDS: Lisinopril 20mg tab ORAL SCH (09:16)
[2019-04-02] MEDS: Ascorbic Acid 500mg tab ORAL SCH (09:16)
[2019-04-02] MEDS: clonazePAM 0.5mg tab ORAL SCH ×2 (09:16→18:12)
[2019-04-02] MEDS: Heparin 5000 units/ml inj SUBQ SCH ×2 (09:18→20:04)
[2019-04-02] MEDS: Meropenem 1gm/NS 110ml IVPB SCH ×4 (09:23→20:04)
[2019-04-02] MEDS: Dronabinol 2.5mg Cap ORAL SCH ×2 (09:57→18:12)
[2019-04-02] MEDS ORDERED: Tubing IV Secondary IV ONE ×2 (10:25)
[2019-04-02] MEDS ORDERED: D5NS 1000ml IV ONE (10:25)
[2019-04-02] MEDS ORDERED: NS 275ml ONE ×2 (10:25)
--- NOTE | 2019-04-02 11:40 | General Progress Note ---
Assessment/Plan Problem List: (1) COPD (chronic obstructive pulmonary disease) ICD Codes: J44.9 - Chronic obstructive pulmonary disease, unspecified SNOMED: 10724085 (2) Anemia ICD Codes: D64.9 - Anemia, unspecified SNOMED: 375672287 (3) Hypercholesteremia ICD Codes: E78.00 - Pure hypercholesterolemia, unspecified SNOMED: 43557305 (4) Acute and chronic respiratory failure ([id number]) ICD Codes: J96.20 - Acute and chr resp failure, unsp w hypoxia or hypercapnia SNOMED: 28220193 (5) Hypertension ICD Codes: I10 - Essential (primary) hypertension SNOMED: 13314237 (6) History of breast cancer ICD Codes: Z85.3 - Personal history of malignant neoplasm of breast SNOMED: 681463973 (7) Respiratory failure with hypoxia ICD Codes: J96.91 - Respiratory failure, unspecified with hypoxia SNOMED: 43062037633212196 (8) Protein-calorie malnutrition, mild ICD Codes: E44.1 - Mild protein-calorie malnutrition SNOMED: 53280320 Status: progressing - much improvement Assessment/Plan: 78-year-old female with PMHx of COPD on 2L O2, HTN, diastolic CHF, chronic, osteoporosis, IBS-C, DDD, anemia and UTI sent from SNF for fever, lethargy, and congestion. #Severe sepsis/ septic shock secondary to pneumonia, ? aspiration ?HCAP vs. UTI , gram negative bacteremia, gram negative UTI. resolving #Acute on chronic hypoxic respiratory failure- responding to non invasive positive pressure ventilation #CRISTÓBAL- prerenal- resolved #diastolic CHF #Hyponatremia- hypovolemic, resolved #COPD on home O2, doubt exacerbation #HTN, HLD #Normocytic Anemia- stable #Anxiety/depression #Mild protein calorie malnutrition -s/p IV hydration, stopped, resume d5ns @50 while npo -Broad spectrum antibiotics: s/p Zosyn, Vancomycin and Azithromycin. continue Per ID: Amikacin and meropenem. -stop bipap prn, titrate to keep SpO2 >90% -ID and pulmonary consults -Repeat Echocardiogram: EF 55 to 60% - Duo-Nebs Q6hr PRN SOB/Wheezing - continue home Singulair -Monitor renal function, continue shi, if cr without improvement, renal consult - resume ACEi - resume Amlodipine 10mg PO daily - hold stain and ASA while npo - hold lyrica 75mg PO BID - resume Lexapro 20mg Po daily, Resume Klonipin and ativan prn. Psychiatry consult with Dr. Stern who know her from SNF - hold Colace 100mg Po BID - hold simethecone 125mg PO TID #Goals of care - DNR/DNI, POLST reviewed Code status: DNR/DNI, per polst Dispo: Back to SNF pending clinical course I spent 40 minutes on this encounter, 20 minutes spent on counselling and care coordination I spent an addition 37 minutes in review of prior hospital records including labs, imaging, notes, and ancillary data. Subjective Date patient seen: Apr 02, 2019 Time patient seen: 10:30 Allergies: Coded Allergies: [place] (Unverified Allergy, Mild, upset stomach, 02/10/19) TOMATO (Unverified Allergy, Mild, upset stomach, 02/10/19) TETRACYCLINE (Unverified Allergy, Unknown, 07/24/14) Subjective Denies fevers, chills, abdominal pain, nausea, vomiting. Admits to whole body aches Aside from above all ROS negative including more than 12 systems Objective Last 24 Hour Vital Signs Date Time Temp Pulse Resp B/P (MAP) Pulse Ox O2 Delivery O2 Flow Rate FiO2 04/02/19 09:16 153/93 04/02/19 09:16 128 153/93 04/02/19 08:56 98 Nasal Cannula 4.0 36 04/02/19 08:00 Bi-pap 04/02/19 08:00 128 04/02/19 08:00 98.3 124 20 153/93 (113) 97 04/02/19 08:00 2.0 04/02/19 04:00 129 04/02/19 04:00 Bi-pap 04/02/19 04:00 2.0 04/02/19 03:56 96.7 121 20 145/75 (98) 97 04/02/19 02:00 121 147/84 (105) 04/02/19 00:09 168/96 04/02/19 00:00 97.8 112 20 168/96 (120) 98 04/02/19 00:00 Bi-pap 04/02/19 00:00 2.0 04/01/19 23:57 118 04/01/19 20:00 97.8 118 22 142/86 (104) 96 04/01/19 20:00 Bi-pap 04/01/19 20:00 2.0 04/01/19 19:35 126 04/01/19 18:22 158/94 04/01/19 16:13 121 04/01/19 16:00 2.0 04/01/19 16:00 97.7 128 19 158/94 (115) 97 04/01/19 16:00 Bi-pap 04/01/19 12:14 123 04/01/19 12:00 Bi-pap 04/01/19 12:00 2.0 04/01/19 12:00 96.4 125 21 143/98 (113) 95 Intake and Output 04/01/19 04/02/19 19:00 07:00 Intake Total 540 ml 110 ml Output Total 1900 ml 600 ml Balance -1360 ml -490 ml Intake Oral 240 ml IV Total 300 ml 110 ml Output Urine Total 1900 ml 600 ml Laboratory Tests 04/02/19 03:35: White Blood Count 13.4H, Red Blood Count 3.68L, Hemoglobin 10.9L, Hematocrit 33.1L, Mean Corpuscular Volume 90, Mean Corpuscular Hemoglobin 29.5, Mean Corpuscular Hemoglobin Concent 32.8, Red Cell Distribution Width 14.1, Platelet Count 263, Mean Platelet Volume 5.8L, Neutrophils (%) (Auto) 84.9H, Lymphocytes (%) (Auto) 7.9L, Monocytes (%) (Auto) 7.0, Eosinophils (%) (Auto) 0.0, Basophils (%) (Auto) 0.2, Sodium Level 148H, Potassium Level 3.4L, Chloride Level 110H, Carbon Dioxide Level 24, Anion Gap 14, Blood Urea Nitrogen 18, Creatinine 0.9, Estimat Glomerular Filtration Rate , Glucose Level 142H, Calcium Level 10.7H Height (Feet): 5 Height (Inches): 4.00 Weight (Pounds): 134 Objective General: Awake alert, oriented x3, fatigue Neck: No cervical lymphadenopathy CV: Regular rate rhythm, no murmurs rubs or gallops RESP: Coarse breath sounds bilaterally, no wheezes no crackles ABD: Bowel sounds present in all 4 quadrants, soft nontender to palpation Ext: No edema bilaterally, SCDs in place, no cyanosis or clubbing Ryann Gregory DO Apr 02, 2019 11:40
--- NOTE | 2019-04-02 12:41 | Surgery Progress Note ---
Surgery Progress Note Subjective Symptoms: other Objective Last 24 Hour Vital Signs Date Time Temp Pulse Resp B/P (MAP) Pulse Ox O2 Delivery O2 Flow Rate FiO2 04/02/19 09:16 153/93 04/02/19 09:16 128 153/93 04/02/19 08:56 98 Nasal Cannula 4.0 36 04/02/19 08:00 Bi-pap 04/02/19 08:00 128 04/02/19 08:00 98.3 124 20 153/93 (113) 97 04/02/19 08:00 2.0 04/02/19 04:00 129 04/02/19 04:00 Bi-pap 04/02/19 04:00 2.0 04/02/19 03:56 96.7 121 20 145/75 (98) 97 04/02/19 02:00 121 147/84 (105) 04/02/19 00:09 168/96 04/02/19 00:00 97.8 112 20 168/96 (120) 98 04/02/19 00:00 Bi-pap 04/02/19 00:00 2.0 04/01/19 23:57 118 04/01/19 20:00 97.8 118 22 142/86 (104) 96 04/01/19 20:00 Bi-pap 04/01/19 20:00 2.0 04/01/19 19:35 126 04/01/19 18:22 158/94 04/01/19 16:13 121 04/01/19 16:00 2.0 04/01/19 16:00 97.7 128 19 158/94 (115) 97 04/01/19 16:00 Bi-pap I&O Intake and Output 04/01/19 04/02/19 19:00 07:00 Intake Total 540 ml 110 ml Output Total 1900 ml 600 ml Balance -1360 ml -490 ml Intake Oral 240 ml IV Total 300 ml 110 ml Output Urine Total 1900 ml 600 ml Dressing: saturated Wound: other Drains: other Cardiovascular: RSR Respiratory: decreased breath sounds Abdomen: soft, present bowel sounds, non-distended Extremities: no cyanosis, other Laboratory Tests Test 04/02/19 03:35 White Blood Count 13.4 K/UL (4.8-10.8) H Red Blood Count 3.68 M/UL (4.20-5.40) L Hemoglobin 10.9 G/DL (12.0-16.0) L Hematocrit 33.1 % (37.0-47.0) L Mean Corpuscular Volume 90 FL (80-99) Mean Corpuscular Hemoglobin 29.5 PG (27.0-31.0) Mean Corpuscular Hemoglobin Concent 32.8 G/DL (32.0-36.0) Red Cell Distribution Width 14.1 % (11.6-14.8) Platelet Count 263 K/UL (150-450) Mean Platelet Volume 5.8 FL (6.5-10.1) L Neutrophils (%) (Auto) 84.9 % (45.0-75.0) H Lymphocytes (%) (Auto) 7.9 % (20.0-45.0) L Monocytes (%) (Auto) 7.0 % (1.0-10.0) Eosinophils (%) (Auto) 0.0 % (0.0-3.0) Basophils (%) (Auto) 0.2 % (0.0-2.0) Sodium Level 148 MMOL/L (136-145) H Potassium Level 3.4 MMOL/L (3.5-5.1) L Chloride Level 110 MMOL/L (98-107) H Carbon Dioxide Level 24 MMOL/L (21-32) Anion Gap 14 mmol/L (5-15) Blood Urea Nitrogen 18 mg/dL (7-18) Creatinine 0.9 MG/DL (0.55-1.30) Estimat Glomerular Filtration Rate mL/min (>60) Glucose Level 142 MG/DL (74-106) H Calcium Level 10.7 MG/DL (8.5-10.1) H Plan Problems: (1) Leukocytosis Assessment & Plan: leukocytosis improving labs noted exam stable Abx as per ID cont IV abx uti vs pna trend labs (2) Decubitus skin ulcer Assessment & Plan: Pt presented on admission with moisture intertrigo R and L breasts. both breast folds are erythematous with denuded skin . DTPI noted to Upper R buttocks. Base of wound is maroon is indurated and elongated with surrounding non-blanching erythema. (L)1cm x (W)4cm. Both heels are soft pink and blanchable.No other skin concerns noted. Tx.Plan: Apply Hydraguard Silicone cream to R and L breasts Daily. Apply Moisture Barrier Paste to Sacrum and R buttocks. Cover with Optifoam drsg. Change every 3 days and prn. Apply Cavilon Skin Barrier to both heels. Cover each heels with Optifoam drsg. Change every 7 days and prn. APM/MARCUS Mattress overlay. Reposition at least every 2hours or as tolerated. Off-load heels with pillow. (3) Limited mobility (4) Constipation (5) Protein-calorie malnutrition, mild Assessment & Plan: DAILY ESTIMATED NEEDS: Needs based on Wound, cardiac, pulmonary, 46kg 25-30 kcals/kg 2191-6571 total kcals 1.25-1.5 g protein/kg 58-69 g total protein 25-30 mL/kg 3399-7731 total fluid mLs NUTRITION DIAGNOSIS: * Increased kcal/prot needs R/T wound healing as evidenced by pt admitted w/ DTPI wound upper right buttocks. * Swallowing difficulty R/T dysphagia as evidenced by pt NPO at this time per MACHINE [employer]SEM[employer]ER, MBSS pending. CURRENT DIET:NPO PO DIET RECOMMENDATIONS: LOW NA/ texture per [employer] ADDITIONAL RECOMMENDATIONS: * Per SNF record, ht=57", vb=[id number]. * Wound healing: (w/ oral diet) add MVI x 1, Vit C 250mg QD : Edilberto 1pkt BID as tolerated * Consider checking A1C: h/o DM? * Monitor BGs closely, need for carb controlled diet Robert Orellana Apr 02, 2019 12:41
--- NOTE | 2019-04-02 13:13 | Pulmonology Progress Note ---
Assessment/Plan Problems: (1) UTI (urinary tract infection) Assessment & Plan: E coli (2) Sepsis with acute hypoxic respiratory failure (3) CRISTÓBAL (acute kidney injury) (4) COPD (chronic obstructive pulmonary disease) (5) Anemia (6) Anxiety (7) Hypercholesteremia (8) Hyponatremia (9) Acute and chronic respiratory failure ([id number]) (10) Hypertension (11) Protein-calorie malnutrition, mild Assessment/Plan ASSESSMENT: The patient is a 78-year-old female with history of COPD, CHF with diastolic dysfunction, GERD, anemia, hypertension, hyperlipidemia, IBS, senior living resident with pulsating comfort measures only and DNR, presenting with altered mental status, hypertension, likely secondary to UTI with urosepsis and hypoxemia secondary to above. PROBLEM LIST: 1. Hypoxemia likely secondary to urosepsis. 2. GNR UTI and GNR sepsis 3. COPD. 4. Home O2 dependence. 5. CHF with diastolic dysfunction. 6. CRISTÓBAL with hyponatremia. 7. Anemia. 8. Recent admission for gastritis. 9. Hypertension, hyperlipidemia, GERD, IBS. 10. DNAR, PULSE comfort measures only. TREATMENT PLAN: 1. Off BiPAP 2. Titrate on FiO2 to keep saturations greater than 90%. 3. Abx per ID 4. Monitor volumes and renal function 5. Diet per HARDWOOD FALLER with ASPIRATION precautions 6. Monitor mental status. 7. DVT prophylaxis, heparin subcutaneous. 8. The patient is DNAR, and has a POLST: comfort measures only, we will need to discuss further goals of care. Subjective Allergies: Coded Allergies: [place] (Unverified Allergy, Mild, upset stomach, 02/10/19) TOMATO (Unverified Allergy, Mild, upset stomach, 02/10/19) TETRACYCLINE (Unverified Allergy, Unknown, 07/24/14) Subjective AFVSS, on 2L, declined VSS, started on diet, no cough, no SOB, no FC Objective Last 24 Hour Vital Signs Date Time Temp Pulse Resp B/P (MAP) Pulse Ox O2 Delivery O2 Flow Rate FiO2 04/02/19 09:16 153/93 04/02/19 09:16 128 153/93 04/02/19 08:56 98 Nasal Cannula 4.0 36 04/02/19 08:00 Bi-pap 04/02/19 08:00 128 04/02/19 08:00 98.3 124 20 153/93 (113) 97 04/02/19 08:00 2.0 04/02/19 04:00 129 04/02/19 04:00 Bi-pap 04/02/19 04:00 2.0 04/02/19 03:56 96.7 121 20 145/75 (98) 97 04/02/19 02:00 121 147/84 (105) 04/02/19 00:09 168/96 04/02/19 00:00 97.8 112 20 168/96 (120) 98 04/02/19 00:00 Bi-pap 04/02/19 00:00 2.0 04/01/19 23:57 118 04/01/19 20:00 97.8 118 22 142/86 (104) 96 04/01/19 20:00 Bi-pap 04/01/19 20:00 2.0 04/01/19 19:35 126 04/01/19 18:22 158/94 04/01/19 16:13 121 04/01/19 16:00 2.0 04/01/19 16:00 97.7 128 19 158/94 (115) 97 04/01/19 16:00 Bi-pap Intake and Output 04/01/19 04/02/19 19:00 07:00 Intake Total 540 ml 110 ml Output Total 1900 ml 600 ml Balance -1360 ml -490 ml Intake Oral 240 ml IV Total 300 ml 110 ml Output Urine Total 1900 ml 600 ml General Appearance: cachetic HEENT: normocephalic, atraumatic, anicteric, mucous membranes moist Respiratory/Chest: chest wall non-tender, lungs clear, normal breath sounds, no respiratory distress, no accessory muscle use Cardiovascular: normal peripheral pulses, normal rate, regular rhythm Abdomen: normal bowel sounds, soft, non tender, no organomegaly, non distended , no mass Extremities: no cyanosis, no clubbing, no edema Microbiology Date/Time Source Procedure Growth Status 04/01/19 03:45 Blood Blood Culture - Preliminary NO GROWTH AFTER 24 HOURS Resulted 04/01/19 03:40 Blood Blood Culture - Preliminary NO GROWTH AFTER 24 HOURS Resulted Laboratory Tests 04/02/19 03:35: White Blood Count 13.4H, Red Blood Count 3.68L, Hemoglobin 10.9L, Hematocrit 33.1L, Mean Corpuscular Volume 90, Mean Corpuscular Hemoglobin 29.5, Mean Corpuscular Hemoglobin Concent 32.8, Red Cell Distribution Width 14.1, Platelet Count 263, Mean Platelet Volume 5.8L, Neutrophils (%) (Auto) 84.9H, Lymphocytes (%) (Auto) 7.9L, Monocytes (%) (Auto) 7.0, Eosinophils (%) (Auto) 0.0, Basophils (%) (Auto) 0.2, Sodium Level 148H, Potassium Level 3.4L, Chloride Level 110H, Carbon Dioxide Level 24, Anion Gap 14, Blood Urea Nitrogen 18, Creatinine 0.9, Estimat Glomerular Filtration Rate , Glucose Level 142H, Calcium Level 10.7H Current Medications Medications (Trade) Dose Ordered Sig/Wilner Route PRN Reason Start Time Stop Time Status Last Admin Dose Admin Amikacin Protocol (Amikacin pharmacy to dose) 1 ea DAILY PRN MISC Per rx protocol 03/31/19 15:30 04/30/19 15:29 Amikacin Sulfate 900 mg/Sodium Chloride 113.6 ml @ 113.6 mls/ hr Q36H IV 04/02/19 09:00 04/09/19 08:59 04/02/19 09:15 Amlodipine Besylate (Norvasc) 10 mg DAILY ORAL 04/02/19 09:00 05/02/19 08:59 04/02/19 09:16 Ascorbic Acid (Vitamin C) 250 mg DAILY ORAL 04/01/19 09:00 05/01/19 08:59 04/02/19 09:16 Barium Sulfate (Varibar Honey) 250 ml NOW PRN RAD 04/01/19 12:45 04/04/19 12:31 Barium Sulfate (Varibar [place]) 240 ml NOW PRN MC RAD 04/01/19 12:45 04/04/19 12:31 Barium Sulfate (Varibar Pudding) 230 ml NOW PRN RAD 04/01/19 12:45 04/04/19 12:31 Clonazepam (KlonoPIN) 0.5 mg BID ORAL 03/31/19 18:00 04/07/19 17:59 04/02/19 09:16 Dronabinol (Marinol) 2.5 mg BID ORAL 04/02/19 09:00 05/02/19 08:59 04/02/19 09:57 Escitalopram Oxalate (Lexapro) 20 mg DAILY ORAL 03/31/19 14:03 04/30/19 14:02 04/02/19 09:15 Heparin Sodium (Porcine) (Heparin 5000 units/ml) 5,000 units EVERY 12 HOURS SUBQ 03/30/19 09:30 04/29/19 09:29 04/02/19 09:18 Hydralazine HCl (Apresoline) 10 mg Q4H PRN IV sbp>150 03/31/19 16:00 04/30/19 15:59 04/02/19 00:09 Lisinopril (Prinivil) 20 mg DAILY ORAL 04/02/19 09:00 05/02/19 08:59 04/02/19 09:16 Lorazepam (Ativan) 0.5 mg BIDPRN PRN ORAL For Anxiety 03/31/19 14:15 04/07/19 10:59 04/02/19 02:25 Meropenem 1 gm/ Sodium Chloride 110 ml @ 220 mls/hr Q12HR IVPB 03/31/19 09:00 04/05/19 08:59 04/02/19 09:23 Multivitamins (Multivitamins) 1 tab DAILY ORAL 04/01/19 09:00 05/01/19 08:59 04/02/19 09:16 Ondansetron HCl (Zofran) 4 mg Q4H PRN IVP Nausea & Vomiting 04/01/19 14:15 05/01/19 14:14 04/02/19 04:22 Pantoprazole (Protonix) 40 mg EVERY 12 HOURS IVP 03/30/19 10:00 04/29/19 09:59 04/02/19 09:15 Rafael Lerma MD Apr 02, 2019 13:13
--- NOTE | 2019-04-02 13:27 | Infectious Diseases Prog Note ---
Assessment/Plan Assessment/Plan ASSESSMENT AND PLAN: 1. e.coli uti/pyelonephritis with bacteremia, sepsis, leukocytosis, fevers - meropenem - day # 3 - clinically improved - surveillance blood cultures negative, leukocytosis improved, fevers resolved - monitor labs 2. Acute kidney injury with elevated creatinine. 3. IBS 4. Congestive heart failure and edema - sob better 5. Hypertension. 6. Hyperlipidemia. 7. Blood pressure treatment per primary care team for hypertension. 8. Anemia. 9. Chronic obstructive pulmonary disease. 10. Gastroesophageal reflux disease. 11. Chronic obstructive pulmonary disease and congestive heart failure treatment per primary care team. 12. IBS. 13. Encephalopathy. 14. Gastritis. 15. Anxiety. 16. Hypercholesterolemia and dyslipidemia. 17. Breast cancer. 18. Malnutrition history. 19. Allergies to oranges, tetracycline, and tomatoes. 20. Social history is negative. 21. Family history is noncontributory. 22. MAR is noted. 23. Case was discussed with RN. 24. Skin care protocol. 25. Continue treatment per primary consultants and [place] care. 26. Orders were noted and entered. 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 Subjective Constitutional: Reports: fatigue, other - alert, anxious ; Denies: fever HEENT: Reports: congestion - less Respiratory: Reports: shortness of breath - less Cardiovascular: Denies: chest pain Gastrointestinal/Abdominal: Denies: nausea, vomiting, diarrhea Genitourinary: Reports: other - + shi Neurologic: Denies: headache Psychiatric: Denies: depression Skin: Denies: rash Hematologic: Denies: bleeding Musculoskeletal: Reports: pain Allergies: Coded Allergies: [place] (Unverified Allergy, Mild, upset stomach, 02/10/19) TOMATO (Unverified Allergy, Mild, upset stomach, 02/10/19) TETRACYCLINE (Unverified Allergy, Unknown, 07/24/14) Objective Vital Signs Last 24 Hour Vital Signs Date Time Temp Pulse Resp B/P (MAP) Pulse Ox O2 Delivery O2 Flow Rate FiO2 04/02/19 09:16 153/93 04/02/19 09:16 128 153/93 04/02/19 08:56 98 Nasal Cannula 4.0 36 04/02/19 08:00 Bi-pap 04/02/19 08:00 128 04/02/19 08:00 98.3 124 20 153/93 (113) 97 04/02/19 08:00 2.0 04/02/19 04:00 129 04/02/19 04:00 Bi-pap 04/02/19 04:00 2.0 04/02/19 03:56 96.7 121 20 145/75 (98) 97 04/02/19 02:00 121 147/84 (105) 04/02/19 00:09 168/96 04/02/19 00:00 97.8 112 20 168/96 (120) 98 04/02/19 00:00 Bi-pap 04/02/19 00:00 2.0 04/01/19 23:57 118 04/01/19 20:00 97.8 118 22 142/86 (104) 96 04/01/19 20:00 Bi-pap 04/01/19 20:00 2.0 04/01/19 19:35 126 04/01/19 18:22 158/94 04/01/19 16:13 121 04/01/19 16:00 2.0 04/01/19 16:00 97.7 128 19 158/94 (115) 97 04/01/19 16:00 Bi-pap Height (Feet): 5 Height (Inches): 4.00 Weight (Pounds): 134 General Appearance: no acute distress HEENT: normocephalic, atraumatic, anicteric, mucous membranes moist Respiratory/Chest: crackles/rales, rhonchi - bilaterally Cardiovascular: normal rate, regular rhythm, no gallop/murmur Abdomen: normal bowel sounds, soft, non tender, no organomegaly, non distended Genitourinary: other - + shi - urine clear Extremities: no cyanosis Skin: no rash 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 Findings: Increasing airspace disease in the right upper lobe noted as well as at both lung bases. The heart is mildly enlarged. The interstitium and pulmonary vascularity also appear prominent. IMPRESSION: Worsening airspace disease probably on the basis of congestive heart failure. Correlate clinically Microbiology Date/Time Source Procedure Growth Status 04/01/19 03:45 Blood Blood Culture - Preliminary NO GROWTH AFTER 24 HOURS Resulted 03/30/19 06:00 Nasal Aspirate MRSA Culture - Final Staphylococcus Aureus - Mrsa Complete 03/30/19 04:50 Urine,Clean Catch Urine Culture - Final Escherichia Coli - Esbl Complete 03/30/19 06:00 Rectum - Final NO CARBAPENEM-RESISTANT ENTEROBACTERI... Complete Microbiology Date/Time Source Procedure Growth Status 04/01/19 03:45 Blood Blood Culture - Preliminary NO GROWTH AFTER 24 HOURS Resulted 04/01/19 03:40 Blood Blood Culture - Preliminary NO GROWTH AFTER 24 HOURS Resulted Laboratory Tests Test 04/02/19 03:35 White Blood Count 13.4 K/UL (4.8-10.8) H Red Blood Count 3.68 M/UL (4.20-5.40) L Hemoglobin 10.9 G/DL (12.0-16.0) L Hematocrit 33.1 % (37.0-47.0) L Mean Corpuscular Volume 90 FL (80-99) Mean Corpuscular Hemoglobin 29.5 PG (27.0-31.0) Mean Corpuscular Hemoglobin Concent 32.8 G/DL (32.0-36.0) Red Cell Distribution Width 14.1 % (11.6-14.8) Platelet Count 263 K/UL (150-450) Mean Platelet Volume 5.8 FL (6.5-10.1) L Neutrophils (%) (Auto) 84.9 % (45.0-75.0) H Lymphocytes (%) (Auto) 7.9 % (20.0-45.0) L Monocytes (%) (Auto) 7.0 % (1.0-10.0) Eosinophils (%) (Auto) 0.0 % (0.0-3.0) Basophils (%) (Auto) 0.2 % (0.0-2.0) Sodium Level 148 MMOL/L (136-145) H Potassium Level 3.4 MMOL/L (3.5-5.1) L Chloride Level 110 MMOL/L (98-107) H Carbon Dioxide Level 24 MMOL/L (21-32) Anion Gap 14 mmol/L (5-15) Blood Urea Nitrogen 18 mg/dL (7-18) Creatinine 0.9 MG/DL (0.55-1.30) Estimat Glomerular Filtration Rate mL/min (>60) Glucose Level 142 MG/DL (74-106) H Calcium Level 10.7 MG/DL (8.5-10.1) H Current Medications Medications (Trade) Dose Ordered Sig/Wilner Route PRN Reason Start Time Stop Time Status Last Admin Dose Admin Amikacin Protocol (Amikacin pharmacy to dose) 1 ea DAILY PRN MISC Per rx protocol 03/31/19 15:30 04/30/19 15:29 Amikacin Sulfate 900 mg/Sodium Chloride 113.6 ml @ 113.6 mls/ hr Q36H IV 04/02/19 09:00 04/09/19 08:59 04/02/19 09:15 Amlodipine Besylate (Norvasc) 10 mg DAILY ORAL 04/02/19 09:00 05/02/19 08:59 04/02/19 09:16 Ascorbic Acid (Vitamin C) 250 mg DAILY ORAL 04/01/19 09:00 05/01/19 08:59 04/02/19 09:16 Barium Sulfate (Varibar Honey) 250 ml NOW PRN MC RAD 04/01/19 12:45 04/04/19 12:31 Barium Sulfate (Varibar [place]) 240 ml NOW PRN MC RAD 04/01/19 12:45 04/04/19 12:31 Barium Sulfate (Varibar Pudding) 230 ml NOW PRN RAD 04/01/19 12:45 04/04/19 12:31 Clonazepam (KlonoPIN) 0.5 mg BID ORAL 03/31/19 18:00 04/07/19 17:59 04/02/19 09:16 Dronabinol (Marinol) 2.5 mg BID ORAL 04/02/19 09:00 05/02/19 08:59 04/02/19 09:57 Escitalopram Oxalate (Lexapro) 20 mg DAILY ORAL 03/31/19 14:03 04/30/19 14:02 04/02/19 09:15 Heparin Sodium (Porcine) (Heparin 5000 units/ml) 5,000 units EVERY 12 HOURS SUBQ 03/30/19 09:30 04/29/19 09:29 04/02/19 09:18 Hydralazine HCl (Apresoline) 10 mg Q4H PRN IV sbp>150 03/31/19 16:00 04/30/19 15:59 04/02/19 00:09 Lisinopril (Prinivil) 20 mg DAILY ORAL 04/02/19 09:00 05/02/19 08:59 04/02/19 09:16 Lorazepam (Ativan) 0.5 mg BIDPRN PRN ORAL For Anxiety 03/31/19 14:15 04/07/19 10:59 04/02/19 02:25 Meropenem 1 gm/ Sodium Chloride 110 ml @ 220 mls/hr Q12HR IVPB 03/31/19 09:00 04/05/19 08:59 04/02/19 09:23 Multivitamins (Multivitamins) 1 tab DAILY ORAL 04/01/19 09:00 05/01/19 08:59 04/02/19 09:16 Ondansetron HCl (Zofran) 4 mg Q4H PRN IVP Nausea & Vomiting 04/01/19 14:15 05/01/19 14:14 04/02/19 04:22 Pantoprazole (Protonix) 40 mg EVERY 12 HOURS IVP 03/30/19 10:00 04/29/19 09:59 04/02/19 09:15 Nyasia Grover MD Apr 02, 2019 13:27
[2019-04-02] MEDS ORDERED: Methocarbamol 500mg tab ORAL PRN (13:30)
[2019-04-02] MEDS ORDERED: traMADol 50mg tab ORAL PRN (13:30)
[2019-04-02] MEDS: Lyrica 75mg cap ORAL SCH ×2 (14:30→18:18)
[2019-04-02] MEDS: oxyCODONE 5mg IR tab ORAL PRN ×2 (14:59→22:36)
[2019-04-03] VITALS: BP 117/74
[2019-04-03 03:58] VITALS: BP 135/74
[2019-04-03 04:44] LABS: BASOPHILS % (AUTO) 0.2 % (0.0-2.0); EOSINOPHILS % (AUTO) 0.1 % (0.0-3.0); HEMATOCRIT 30.4 % (37.0-47.0); HEMOGLOBIN 9.8 G/DL (12.0-16.0); LYMPHOCYTES % (AUTO) 12.9 % (20.0-45.0); MEAN CORPUSCULAR VOLUME 91 FL (80-99); MONOCYTES % (AUTO) 10.9 % (1.0-10.0); PLATELET COUNT 271 K/UL (150-450); RED BLOOD COUNT 3.34 M/UL (4.20-5.40); RED CELL DISTRIBUTION WIDTH 15.1 % (11.6-14.8)
[2019-04-03 04:54] LABS: ANION GAP 9 mmol/L (5-15); BLOOD UREA NITROGEN 28 mg/dL (7-18); CALCIUM 10.5 MG/DL (8.5-10.1); CARBON DIOXIDE 31 MMOL/L (21-32); CHLORIDE 115 MMOL/L (98-107); CREATININE 0.8 MG/DL (0.55-1.30); POTASSIUM 3.4 MMOL/L (3.5-5.1); SODIUM 155 MMOL/L (136-145)
[2019-04-03 07:57] VITALS: BP 141/86
[2019-04-03] MEDS: Dronabinol 2.5mg Cap ORAL SCH ×2 (08:07→17:23)
[2019-04-03] MEDS: Ascorbic Acid 500mg tab ORAL SCH (08:08)
[2019-04-03] MEDS: Meropenem 1gm/NS 110ml IVPB SCH ×2 (08:08)
[2019-04-03] MEDS: clonazePAM 0.5mg tab ORAL SCH ×2 (08:08→17:23)
[2019-04-03] MEDS: Pantoprazole Inj IVP SCH ×2 (08:09→20:37)
[2019-04-03] MEDS: Lisinopril 20mg tab ORAL SCH (08:09)
[2019-04-03] MEDS: Lyrica 75mg cap ORAL SCH ×2 (08:09→17:23)
[2019-04-03] MEDS: Heparin 5000 units/ml inj SUBQ SCH ×2 (08:10→20:49)
--- NOTE | 2019-04-03 09:17 | General Progress Note ---
Assessment/Plan Status: progressing - much improvement Assessment/Plan: GI: Plan Problems: (1) GERD (gastroesophageal reflux disease) (2) Anemia (3) Protein-calorie malnutrition, mild (4) Severe sepsis (5) Decub ulcer (6) malnutrition Plan History of endoscopy and colonoscopy on February 11, 2019 noted with gastritis and one colonic polyp. No plan for any GI procedures at this time given recent history of procedure and unstable respiratory status. Obtain anemia work-up Fecal occult blood stool to rule out any GI bleed PPI daily Monitor H&H, PRN transfusions Antibiotics per infectious diseases We will follow on a daily basis with additional recommendations. passed swallow eval for puree diet but poor po intake good response to marinol calorie count wound care Subjective Allergies: Coded Allergies: [place] (Unverified Allergy, Mild, upset stomach, 02/10/19) TOMATO (Unverified Allergy, Mild, upset stomach, 02/10/19) TETRACYCLINE (Unverified Allergy, Unknown, 07/24/14) Objective Last 24 Hour Vital Signs Date Time Temp Pulse Resp B/P (MAP) Pulse Ox O2 Delivery O2 Flow Rate FiO2 04/03/19 08:09 141/86 04/03/19 08:07 117 141/86 04/03/19 07:57 98.8 117 20 141/86 (104) 100 04/03/19 07:53 Bi-pap 04/03/19 07:53 2.0 04/03/19 04:00 2.0 04/03/19 04:00 Bi-pap 04/03/19 03:58 97.5 120 20 135/74 (94) 98 04/03/19 03:49 108 04/03/19 00:00 Bi-pap 04/03/19 00:00 2.0 04/03/19 00:00 97.0 121 20 117/74 (88) 97 04/02/19 23:42 122 04/02/19 23:00 97 Nasal Cannula 4.0 36 04/02/19 21:31 97.0 04/02/19 20:06 125 04/02/19 20:00 2.0 04/02/19 20:00 Bi-pap 04/02/19 20:00 97.0 127 20 129/67 (87) 96 04/02/19 16:00 Bi-pap 11/23/19 16:00 99.1 136 18 133/90 (104) 96 04/02/19 16:00 135 04/02/19 16:00 2.0 04/02/19 12:00 Bi-pap 04/02/19 12:00 122 04/02/19 12:00 2.0 04/02/19 12:00 97.8 123 18 130/75 (93) 98 Intake and Output 04/02/19 04/03/19 18:59 06:59 Intake Total 320 ml 110 ml Output Total 500 ml 250 ml Balance -180 ml -140 ml Intake Oral 320 ml IV Total 110 ml Output Urine Total 500 ml 250 ml Laboratory Tests 04/03/19 03:24: White Blood Count 13.0H, Red Blood Count 3.34L, Hemoglobin 9.8L, Hematocrit 30.4L, Mean Corpuscular Volume 91, Mean Corpuscular Hemoglobin 29.2, Mean Corpuscular Hemoglobin Concent 32.1, Red Cell Distribution Width 15.1H, Platelet Count 271, Mean Platelet Volume 5.6L, Neutrophils (%) (Auto) 76.0H, Lymphocytes (%) (Auto) 12.9L, Monocytes (%) (Auto) 10.9H, Eosinophils (%) (Auto ) 0.1, Basophils (%) (Auto) 0.2, Sodium Level 155H, Potassium Level 3.4L, Chloride Level 115H, Carbon Dioxide Level 31, Anion Gap 9, Blood Urea Nitrogen 28H, Creatinine 0.8, Estimat Glomerular Filtration Rate , Glucose Level 127H, Calcium Level 10.5H Height (Feet): 5 Height (Inches): 4.00 Weight (Pounds): 134 General Appearance: alert EENT: PERRL/EOMI Neck: supple Cardiovascular: normal rate Respiratory/Chest: decreased breath sounds Abdomen: normal bowel sounds, non tender, soft Extremities: non-tender Kapil Arshad MD Apr 03, 2019 09:17
--- NOTE | 2019-04-03 11:39 | Pulmonology Progress Note ---
Assessment/Plan Problems: (1) UTI (urinary tract infection) Assessment & Plan: E coli (2) Sepsis with acute hypoxic respiratory failure (3) CRISTÓBAL (acute kidney injury) (4) COPD (chronic obstructive pulmonary disease) (5) Anemia (6) Anxiety (7) Hypercholesteremia (8) Hyponatremia (9) Acute and chronic respiratory failure ([id number]) (10) Hypertension (11) Protein-calorie malnutrition, mild Assessment/Plan ASSESSMENT: The patient is a 78-year-old female with history of COPD, CHF with diastolic dysfunction, GERD, anemia, hypertension, hyperlipidemia, IBS, snf resident with pulsating comfort measures only and DNR, presenting with altered mental status, hypertension, likely secondary to UTI with urosepsis and hypoxemia secondary to above. PROBLEM LIST: 1. Hypoxemia likely secondary to urosepsis. 2. E coli UTI and GNR sepsis 3. COPD. 4. Home O2 dependence. 5. CHF with diastolic dysfunction. 6. CRISTÓBAL with hyponatremia. 7. Anemia. 8. Recent admission for gastritis. 9. Hypertension, hyperlipidemia, GERD, IBS. 10. DNAR, PULSE comfort measures only. TREATMENT PLAN: 1. Off BiPAP 2. Titrate on FiO2 to keep saturations greater than 90%. 3. Abx per ID 4. Monitor volumes and renal function, mIVF 5. Diet per SALESPERSON FURNITURE with ASPIRATION precautions 6. Monitor mental status. 7. DVT prophylaxis, heparin subcutaneous. 8. The patient is DNAR, and has a POLST: comfort measures only, we will need to discuss further goals of care. Subjective Allergies: Coded Allergies: [place] (Unverified Allergy, Mild, upset stomach, 02/10/19) TOMATO (Unverified Allergy, Mild, upset stomach, 02/10/19) TETRACYCLINE (Unverified Allergy, Unknown, 07/24/14) Subjective AFVSS, O2 needs stable, Na inc, radha some PO, no cough, no SOB, no FC Objective Last 24 Hour Vital Signs Date Time Temp Pulse Resp B/P (MAP) Pulse Ox O2 Delivery O2 Flow Rate FiO2 04/03/19 08:09 141/86 04/03/19 08:07 117 141/86 04/03/19 08:00 115 04/03/19 07:57 98.8 117 20 141/86 (104) 100 11/24/19 07:53 Bi-pap 04/03/19 07:53 2.0 04/03/19 04:00 2.0 04/03/19 04:00 Bi-pap 04/03/19 03:58 97.5 120 20 135/74 (94) 98 04/03/19 03:49 108 04/03/19 00:00 Bi-pap 04/03/19 00:00 2.0 04/03/19 00:00 97.0 121 20 117/74 (88) 97 04/02/19 23:42 122 04/02/19 23:00 97 Nasal Cannula 4.0 36 04/02/19 21:31 97.0 04/02/19 20:06 125 04/02/19 20:00 2.0 04/02/19 20:00 Bi-pap 04/02/19 20:00 97.0 127 20 129/67 (87) 96 04/02/19 16:00 Bi-pap 04/02/19 16:00 99.1 136 18 133/90 (104) 96 04/02/19 16:00 135 04/02/19 16:00 2.0 04/02/19 12:00 Bi-pap 04/02/19 12:00 122 04/02/19 12:00 2.0 04/02/19 12:00 97.8 123 18 130/75 (93) 98 Intake and Output 04/02/19 04/03/19 18:59 06:59 Intake Total 320 ml 110 ml Output Total 500 ml 250 ml Balance -180 ml -140 ml Intake Oral 320 ml IV Total 110 ml Output Urine Total 500 ml 250 ml General Appearance: cachetic HEENT: normocephalic, atraumatic Respiratory/Chest: rhonchi Cardiovascular: normal peripheral pulses, normal rate, regular rhythm Abdomen: normal bowel sounds, soft, non tender, no organomegaly, non distended , no mass Extremities: no cyanosis, no clubbing, no edema Microbiology Date/Time Source Procedure Growth Status 04/01/19 03:45 Blood Blood Culture - Preliminary NO GROWTH AFTER 24 HOURS Resulted 04/01/19 03:40 Blood Blood Culture - Preliminary NO GROWTH AFTER 24 HOURS Resulted Laboratory Tests 04/03/19 03:24: White Blood Count 13.0H, Red Blood Count 3.34L, Hemoglobin 9.8L, Hematocrit 30.4L, Mean Corpuscular Volume 91, Mean Corpuscular Hemoglobin 29.2, Mean Corpuscular Hemoglobin Concent 32.1, Red Cell Distribution Width 15.1H, Platelet Count 271, Mean Platelet Volume 5.6L, Neutrophils (%) (Auto) 76.0H, Lymphocytes (%) (Auto) 12.9L, Monocytes (%) (Auto) 10.9H, Eosinophils (%) (Auto ) 0.1, Basophils (%) (Auto) 0.2, Sodium Level 155H, Potassium Level 3.4L, Chloride Level 115H, Carbon Dioxide Level 31, Anion Gap 9, Blood Urea Nitrogen 28H, Creatinine 0.8, Estimat Glomerular Filtration Rate , Glucose Level 127H, Calcium Level 10.5H Current Medications Medications (Trade) Dose Ordered Sig/Wilner Route PRN Reason Start Time Stop Time Status Last Admin Dose Admin Acetaminophen (Tylenol) 650 mg Q4H PRN ORAL Mild - mod Pain/Temp > 100.5 04/02/19 13:30 05/02/19 13:29 Amlodipine Besylate (Norvasc) 10 mg DAILY ORAL 04/02/19 09:00 05/02/19 08:59 04/03/19 08:07 Ascorbic Acid (Vitamin C) 250 mg DAILY ORAL 04/01/19 09:00 05/01/19 08:59 04/03/19 08:08 Barium Sulfate (Varibar Honey) 250 ml NOW PRN RAD 04/01/19 12:45 04/04/19 12:31 Barium Sulfate (Varibar [place]) 240 ml NOW PRN RAD 04/01/19 12:45 04/04/19 12:31 Barium Sulfate (Varibar Pudding) 230 ml NOW PRN RAD 04/01/19 12:45 04/04/19 12:31 Clonazepam (KlonoPIN) 0.5 mg BID ORAL 03/31/19 18:00 04/07/19 17:59 04/03/19 08:08 Dronabinol (Marinol) 2.5 mg BID ORAL 04/02/19 09:00 05/02/19 08:59 04/03/19 08:07 Escitalopram Oxalate (Lexapro) 20 mg DAILY ORAL 03/31/19 14:03 04/30/19 14:02 04/03/19 08:08 Heparin Sodium (Porcine) (Heparin 5000 units/ml) 5,000 units EVERY 12 HOURS SUBQ 03/30/19 09:30 04/29/19 09:29 04/03/19 08:10 Hydralazine HCl (Apresoline) 10 mg Q4H PRN IV sbp>150 03/31/19 16:00 04/30/19 15:59 04/02/19 00:09 Lisinopril (Prinivil) 20 mg DAILY ORAL 04/02/19 09:00 05/02/19 08:59 04/03/19 08:09 Lorazepam (Ativan) 0.5 mg BIDPRN PRN ORAL For Anxiety 03/31/19 14:15 04/07/19 10:59 04/02/19 02:25 Meropenem 1 gm/ Sodium Chloride 110 ml @ 220 mls/hr Q12HR IVPB 03/31/19 09:00 04/05/19 08:59 04/03/19 08:08 Methocarbamol (Robaxin) 500 mg Q6H PRN ORAL muscle spasms 04/02/19 13:30 05/02/19 13:29 Multivitamins (Multivitamins) 1 tab DAILY ORAL 04/01/19 09:00 05/01/19 08:59 04/03/19 08:06 Ondansetron HCl (Zofran) 4 mg Q4H PRN IVP Nausea & Vomiting 04/01/19 14:15 05/01/19 14:14 04/02/19 15:00 Oxycodone HCl (Roxicodone) 5 mg Q6H PRN ORAL Breakthrough Pain 04/02/19 13:45 04/09/19 13:44 04/02/19 22:36 Pantoprazole (Protonix) 40 mg EVERY 12 HOURS IVP 03/30/19 10:00 04/29/19 09:59 04/03/19 08:09 Pregabalin (Lyrica) 75 mg BID ORAL 04/02/19 13:45 05/02/19 13:44 04/03/19 08:09 Tramadol HCl (Ultram) 50 mg Q6H PRN ORAL severe pain 04/02/19 13:30 04/09/19 13:29 04/02/19 21:01 Rafael Lerma MD Apr 03, 2019:39
--- NOTE | 2019-04-03 11:55 | Surgery Progress Note ---
Surgery Progress Note Subjective Additional Comments doing well no complaints states she is comfortable and wants more water no n/v/f/c labs noted on d5w Objective Last 24 Hour Vital Signs Date Time Temp Pulse Resp B/P (MAP) Pulse Ox O2 Delivery O2 Flow Rate FiO2 04/03/19 08:09 141/86 04/03/19 08:07 117 141/86 04/03/19 08:00 115 04/03/19 07:57 98.8 117 20 141/86 (104) 100 04/03/19 07:53 Bi-pap 04/03/19 07:53 2.0 04/03/19 04:00 2.0 04/03/19 04:00 Bi-pap 04/03/19 03:58 97.5 120 20 135/74 (94) 98 04/03/19 03:49 108 04/03/19 00:00 Bi-pap 04/03/19 00:00 2.0 04/03/19 00:00 97.0 121 20 117/74 (88) 97 04/02/19 23:42 122 04/02/19 23:00 97 Nasal Cannula 4.0 36 04/02/19 21:31 97.0 04/02/19 20:06 125 04/02/19 20:00 2.0 04/02/19 20:00 Bi-pap 04/02/19 20:00 97.0 127 20 129/67 (87) 96 04/02/19 16:00 Bi-pap 04/02/19 16:00 99.1 136 18 133/90 (104) 96 04/02/19 16:00 135 04/02/19 16:00 2.0 04/02/19 12:00 Bi-pap 04/02/19 12:00 122 04/02/19 12:00 2.0 04/02/19 12:00 97.8 123 18 130/75 (93) 98 I&O Intake and Output 04/02/19 04/03/19 18:59 06:59 Intake Total 320 ml 110 ml Output Total 500 ml 250 ml Balance -180 ml -140 ml Intake Oral 320 ml IV Total 110 ml Output Urine Total 500 ml 250 ml Dressing: other Wound: other Drains: other Cardiovascular: RSR Respiratory: decreased breath sounds Abdomen: soft, present bowel sounds, non-distended Extremities: no cyanosis, other Laboratory Tests Test 04/03/19 03:24 White Blood Count 13.0 K/UL (4.8-10.8) H Red Blood Count 3.34 M/UL (4.20-5.40) L Hemoglobin 9.8 G/DL (12.0-16.0) L Hematocrit 30.4 % (37.0-47.0) L Mean Corpuscular Volume 91 FL (80-99) Mean Corpuscular Hemoglobin 29.2 PG (27.0-31.0) Mean Corpuscular Hemoglobin Concent 32.1 G/DL (32.0-36.0) Red Cell Distribution Width 15.1 % (11.6-14.8) H Platelet Count 271 K/UL (150-450) Mean Platelet Volume 5.6 FL (6.5-10.1) L Neutrophils (%) (Auto) 76.0 % (45.0-75.0) H Lymphocytes (%) (Auto) 12.9 % (20.0-45.0) L Monocytes (%) (Auto) 10.9 % (1.0-10.0) H Eosinophils (%) (Auto) 0.1 % (0.0-3.0) Basophils (%) (Auto) 0.2 % (0.0-2.0) Sodium Level 155 MMOL/L (136-145) H Potassium Level 3.4 MMOL/L (3.5-5.1) L Chloride Level 115 MMOL/L (98-107) H Carbon Dioxide Level 31 MMOL/L (21-32) Anion Gap 9 mmol/L (5-15) Blood Urea Nitrogen 28 mg/dL (7-18) H Creatinine 0.8 MG/DL (0.55-1.30) Estimat Glomerular Filtration Rate mL/min (>60) Glucose Level 127 MG/DL (74-106) H Calcium Level 10.5 MG/DL (8.5-10.1) H Plan Problems: (1) Leukocytosis Assessment & Plan: leukocytosis labs noted exam stable Abx as per ID cont IV abx likely dehydrated trend labs (2) Decubitus skin ulcer Assessment & Plan: Pt presented on admission with moisture intertrigo R and L breasts. both breast folds are erythematous with denuded skin . DTPI noted to Upper R buttocks. Base of wound is maroon is indurated and elongated with surrounding non-blanching erythema. (L)1cm x (W)4cm. Both heels are soft pink and blanchable.No other skin concerns noted. Tx.Plan: Apply Hydraguard Silicone cream to R and L breasts Daily. Apply Moisture Barrier Paste to Sacrum and R buttocks. Cover with Optifoam drsg. Change every 3 days and prn. Apply Cavilon Skin Barrier to both heels. Cover each heels with Optifoam drsg. Change every 7 days and prn. APM/MARCUS Mattress overlay. Reposition at least every 2hours or as tolerated. Off-load heels with pillow. (3) Limited mobility (4) Constipation (5) Protein-calorie malnutrition, mild Assessment & Plan: DAILY ESTIMATED NEEDS: Needs based on Wound, cardiac, pulmonary, 46kg 25-30 kcals/kg 3637-5269 total kcals 1.25-1.5 g protein/kg 58-69 g total protein 25-30 mL/kg 7963-8507 total fluid mLs NUTRITION DIAGNOSIS: * Increased kcal/prot needs R/T wound healing as evidenced by pt admitted w/ DTPI wound upper right buttocks. * Swallowing difficulty R/T dysphagia as evidenced by pt NPO at this time per [employer]AR[employer] CONSULTANT, MBSS pending. CURRENT DIET:NPO PO DIET RECOMMENDATIONS: LOW NA/ texture per JD [employer]WARDS CONSULTANT ADDITIONAL RECOMMENDATIONS: * Per SNF record, ht=57", ot=[id number]. * Wound healing: (w/ oral diet) add MVI x 1, Vit C 250mg QD : Edilberto 1pkt BID as tolerated * Consider checking A1C: h/o DM? * Monitor BGs closely, need for carb controlled diet oRbert Orellana Apr 03, 2019 11:55
[2019-04-03 12:00] VITALS: BP 112/73
--- NOTE | 2019-04-03 12:44 | General Progress Note ---
Assessment/Plan Problem List: (1) COPD (chronic obstructive pulmonary disease) ICD Codes: J44.9 - Chronic obstructive pulmonary disease, unspecified SNOMED: 03371423 (2) Anemia ICD Codes: D64.9 - Anemia, unspecified SNOMED: 512275806 (3) Hypercholesteremia ICD Codes: E78.00 - Pure hypercholesterolemia, unspecified SNOMED: 34790940 (4) Acute and chronic respiratory failure (gunmx-gi-dlqhjya) ICD Codes: J96.20 - Acute and chr resp failure, unsp w hypoxia or hypercapnia SNOMED: 98634129 (5) Hypertension ICD Codes: I10 - Essential (primary) hypertension SNOMED: 91412866 (6) History of breast cancer ICD Codes: Z85.3 - Personal history of malignant neoplasm of breast SNOMED: 720380085 (7) Respiratory failure with hypoxia ICD Codes: J96.91 - Respiratory failure, unspecified with hypoxia SNOMED: 63191574798760992 (8) Protein-calorie malnutrition, mild ICD Codes: E44.1 - Mild protein-calorie malnutrition SNOMED: 69250119 Status: progressing - much improvement Assessment/Plan: 78-year-old female with PMHx of COPD on 2L O2, HTN, diastolic CHF, chronic, osteoporosis, IBS-C, DDD, anemia and UTI sent from SNF for fever, lethargy, and congestion. #Severe sepsis/ septic shock secondary to pneumonia, ? aspiration ?HCAP vs. UTI , gram negative bacteremia, gram negative UTI. resolving , now being treated for ESBL UTI #Acute on chronic hypoxic respiratory failure- responding to non invasive positive pressure ventilation #CRISTÓBAL- prerenal- resolved #diastolic CHF #Hyponatremia- hypovolemic, resolved #COPD on home O2, doubt exacerbation #HTN, HLD #Normocytic Anemia- stable #Anxiety/depression #Mild protein calorie malnutrition # Hypernatrmia - started on d5w, monitor fluid status and ctm bmp -Broad spectrum antibiotics: s/p Zosyn, Vancomycin and Azithromycin. continue Per ID: Amikacin and meropenem. -on RA -ID and pulmonary consults -Repeat Echocardiogram: EF 55 to 60% - Duo-Nebs Q6hr PRN SOB/Wheezing - continue home Singulair -Monitor renal function, continue shi, if cr without improvement, renal consult - cont ACEi -cont Amlodipine 10mg PO daily - hold stain and ASA while npo -> restart - cont lyrica 75mg PO BID - resume Lexapro 20mg Po daily, Resume Klonipin and ativan prn. Psychiatry consult with Dr. Stern who know her from SNF - hold Colace 100mg Po BID - hold simethecone 125mg PO TID #Goals of care - DNR/DNI, POLST reviewed Code status: DNR/DNI, per polst Dispo: Back to SNF pending clinical course I spent 40 minutes on this encounter, 20 minutes spent on counselling and care coordination I spent an addition 37 minutes in review of prior hospital records including labs, imaging, notes, and ancillary data. Subjective Date patient seen: Apr 03, 2019 Time patient seen: 12:41 Allergies: Coded Allergies: [place] (Unverified Allergy, Mild, upset stomach, 02/10/19) [place] (Unverified Allergy, Mild, upset stomach, 02/10/19) TETRACYCLINE (Unverified Allergy, Unknown, 07/24/14) Subjective body aches improved after starting home lyrica denies cp, sob or cough sp02 >90 % on RA Objective Last 24 Hour Vital Signs Date Time Temp Pulse Resp B/P (MAP) Pulse Ox O2 Delivery O2 Flow Rate FiO2 04/03/19 12:00 Bi-pap 04/03/19 12:00 2.0 04/03/19 08:09 141/86 04/03/19 08:07 117 141/86 04/03/19 08:00 115 04/03/19 07:57 98.8 117 20 141/86 (104) 100 04/03/19 07:53 Bi-pap 04/03/19 07:53 2.0 04/03/19 04:00 2.0 04/03/19 04:00 Bi-pap 04/03/19 03:58 97.5 120 20 135/74 (94) 98 04/03/19 03:49 108 04/03/19 00:00 Bi-pap 04/03/19 00:00 2.0 04/03/19 00:00 97.0 121 20 117/74 (88) 97 04/02/19 23:42 122 04/02/19 23:00 97 Nasal Cannula 4.0 36 04/02/19 21:31 97.0 04/02/19 20:06 125 04/02/19 20:00 2.0 04/02/19 20:00 Bi-pap 04/02/19 20:00 97.0 127 20 129/67 (87) 96 04/02/19 16:00 Bi-pap 04/02/19 16:00 99.1 136 18 133/90 (104) 96 04/02/19 16:00 135 04/02/19 16:00 2.0 Intake and Output 04/02/19 04/03/19 18:59 06:59 Intake Total 320 ml 110 ml Output Total 500 ml 250 ml Balance -180 ml -140 ml Intake Oral 320 ml IV Total 110 ml Output Urine Total 500 ml 250 ml Laboratory Tests 04/03/19 03:24: White Blood Count 13.0H, Red Blood Count 3.34L, Hemoglobin 9.8L, Hematocrit 30.4L, Mean Corpuscular Volume 91, Mean Corpuscular Hemoglobin 29.2, Mean Corpuscular Hemoglobin Concent 32.1, Red Cell Distribution Width 15.1H, Platelet Count 271, Mean Platelet Volume 5.6L, Neutrophils (%) (Auto) 76.0H, Lymphocytes (%) (Auto) 12.9L, Monocytes (%) (Auto) 10.9H, Eosinophils (%) (Auto ) 0.1, Basophils (%) (Auto) 0.2, Sodium Level 155H, Potassium Level 3.4L, Chloride Level 115H, Carbon Dioxide Level 31, Anion Gap 9, Blood Urea Nitrogen 28H, Creatinine 0.8, Estimat Glomerular Filtration Rate , Glucose Level 127H, Calcium Level 10.5H Height (Feet): 5 Height (Inches): 4.00 Weight (Pounds): 134 Objective General: Awake alert, oriented x3, fatigue Neck: No cervical lymphadenopathy CV: Regular rate rhythm, no murmurs rubs or gallops RESP: Coarse breath sounds bilaterally, no wheezes no crackles ABD: Bowel sounds present in all 4 quadrants, soft nontender to palpation Ext: No edema bilaterally, SCDs in place, no cyanosis or clubbing Ryann Gregory DO Apr 03, 2019 12:44
[2019-04-03] MEDS: oxyCODONE 5mg IR tab ORAL PRN (15:13)
[2019-04-03 16:00] VITALS: BP 117/69
[2019-04-03] MEDS ORDERED: Varibar Pudding 230ml MC PRN (18:00)
[2019-04-03] MEDS ORDERED: Docusate 100mg cap ORAL SCH (18:00)
[2019-04-03] MEDS ORDERED: Varibar Honey 250ml MC PRN (18:00)
[2019-04-03] MEDS ORDERED: Varibar Nectar 240ml MC PRN (18:00)
[2019-04-03 20:00] VITALS: BP 144/71
[2019-04-03] MEDS: traMADol 50mg tab ORAL PRN (20:35)
[2019-04-03] MEDS: Meropenem 1 GM in NS 110 ML IVPB SCH (20:53)
[2019-04-03] MEDS: LORazepam 0.5mg tab ORAL PRN (21:38)
[2019-04-04 04:00] VITALS: BP 103/52
[2019-04-04 07:42] LABS: BASOPHILS % (AUTO) 0.5 % (0.0-2.0); EOSINOPHILS % (AUTO) 3.6 % (0.0-3.0); HEMATOCRIT 27.9 % (37.0-47.0); HEMOGLOBIN 9.4 G/DL (12.0-16.0); LYMPHOCYTES % (AUTO) 27.5 % (20.0-45.0); MEAN CORPUSCULAR VOLUME 87 FL (80-99); MONOCYTES % (AUTO) 10.8 % (1.0-10.0); NEUTROPHILS % (AUTO) 57.7 % (45.0-75.0); PLATELET COUNT 234 K/UL (150-450); RED BLOOD COUNT 3.19 M/UL (4.20-5.40); WHITE BLOOD COUNT 9.7 K/UL (4.8-10.8)
[2019-04-04 08:00] VITALS: BP 131/61
[2019-04-04] MEDS ORDERED: Miralax 17gm pkt ORAL PRN (08:00)
[2019-04-04 08:07] LABS: ANION GAP 6 mmol/L (5-15); BLOOD UREA NITROGEN 26 mg/dL (7-18); CALCIUM 9.2 MG/DL (8.5-10.1); CARBON DIOXIDE 31 MMOL/L (21-32); CHLORIDE 105 MMOL/L (98-107); CREATININE 0.7 MG/DL (0.55-1.30); POTASSIUM 3.5 MMOL/L (3.5-5.1); SODIUM 142 MMOL/L (136-145)
[2019-04-04] MEDS ORDERED: Docusate 100mg cap ORAL SCH (09:00)
--- NOTE | 2019-04-04 09:26 | General Progress Note ---
Assessment/Plan Problem List: (1) Acute and chronic respiratory failure (cyhgs-jq-rcovgho) ICD Codes: J96.20 - Acute and chr resp failure, unsp w hypoxia or hypercapnia SNOMED: 76576197 (2) Respiratory failure with hypoxia ICD Codes: J96.91 - Respiratory failure, unspecified with hypoxia SNOMED: 95802643943333368 (3) Gram-negative bacteremia ICD Codes: R78.81 - Bacteremia SNOMED: 085235252611 (4) Severe sepsis ICD Codes: A41.9 - Sepsis, unspecified organism; R65.20 - Severe sepsis without septic shock SNOMED: 08666435 (5) CRISTÓBAL (acute kidney injury) ICD Codes: N17.9 - Acute kidney failure, unspecified SNOMED: 10952427, 7732043, 048627615 (6) UTI (urinary tract infection) ICD Codes: N39.0 - Urinary tract infection, site not specified SNOMED: 43506355, 31390734, 912380292 (7) Hyponatremia ICD Codes: E87.1 - Hypo-osmolality and hyponatremia SNOMED: 36773064 (8) COPD (chronic obstructive pulmonary disease) ICD Codes: J44.9 - Chronic obstructive pulmonary disease, unspecified SNOMED: 88064709 (9) Anemia ICD Codes: D64.9 - Anemia, unspecified SNOMED: 892304338 (10) Anxiety ICD Codes: F41.9 - Anxiety disorder, unspecified SNOMED: 71122856 (11) Hypertension ICD Codes: I10 - Essential (primary) hypertension SNOMED: 42766229 (12) History of breast cancer ICD Codes: Z85.3 - Personal history of malignant neoplasm of breast SNOMED: 807205808 (13) Diastolic CHF ICD Codes: I50.30 - Unspecified diastolic (congestive) heart failure SNOMED: 66780587, 706178337 (14) Hypercholesteremia ICD Codes: E78.00 - Pure hypercholesterolemia, unspecified SNOMED: 98502722 (15) Protein-calorie malnutrition, mild ICD Codes: E44.1 - Mild protein-calorie malnutrition SNOMED: 39067162 Status: progressing - much improvement Assessment/Plan: 78-year-old female with PMHx of COPD on 2L O2, HTN, diastolic CHF, chronic, osteoporosis, IBS-C, DDD, anemia and UTI sent from SNF for fever, lethargy, and congestion. #Severe sepsis/ septic shock secondary to pneumonia, ? aspiration ?HCAP vs. UTI , gram negative bacteremia, gram negative UTI. resolving #Acute on chronic hypoxic respiratory failure- responding to non invasive positive pressure ventilation #CRISTÓBAL- prerenal- resolved #diastolic CHF, possible acute exacerbation, however on exam, she is hypovolemic #Hyponatremia- hypovolemic, resolved #COPD on home O2, doubt exacerbation #HTN, HLD #Normocytic Anemia- stable #Anxiety/depression #Mild protein calorie malnutrition -s/p IV hydration, stopped, resume d5ns @50 while npo -Broad spectrum antibiotics: s/p Zosyn, Vancomycin and Azithromycin. Renal dose. Per ID switch to Amikacin and meropenem. -stop bipap prn, titrate to keep SpO2 >90% -ID and pulmonary consults -Repeat Echocardiogram - Duo-Nebs Q6hr PRN SOB/Wheezing - continue home Singulair -Monitor renal function, continue shi, if cr without improvement, renal consult - resume ACEi - resume Amlodipine 10mg PO daily - hold stain and ASA while npo - hold lyrica 75mg PO BID - resume Lexapro 20mg Po daily, Resume Klonipin and ativan prn. Psychiatry consult with Dr. Stern who know her from SNF - hold Colace 100mg Po BID - hold simethecone 125mg PO TID #Goals of care - DNR/DNI, POLST reviewed FENPPx Fluids: 1 L bolus, reassess Diet: NPO, speech and swallow evaluation, advance diet as tolerated DVTPPx: Heparin SBQ q12 GI PPX: PPI IV PT/OT: pending Code status: DNR/DNI, per polst Dispo: Back to [facility] pending clinical course I spent 40 minutes on this encounter, 20 minutes spent on counselling and care coordination D/w RN, general surgery: Dr. Orellana, pulmonary: Dr. Lerma, ID: Dr. Grady. and sister Diane at bedside. Subjective Allergies: Coded Allergies: [place] (Unverified Allergy, Mild, upset stomach, 02/10/19) T[place]ATO (Unverified Allergy, Mild, upset stomach, 02/10/19) TETRACYCLINE (Unverified Allergy, Unknown, 07/24/14) Subjective Off bipap. wbc trending up again , renal function much better. She is calm and sleeping, arousable. Tele reviewed. Sinus tachycardia. BP on the high side. for barium swallow today to assess swallow function. Objective Last 24 Hour Vital Signs Date Time Temp Pulse Resp B/P (MAP) Pulse Ox O2 Delivery O2 Flow Rate FiO2 04/04/19 08:00 97.5 102 19 131/61 (84) 100 04/04/19 08:00 2.0 04/04/19 07:47 92 Nasal Cannula 3.0 32 04/04/19 07:47 92 20 92 Bi-Pap 21 04/04/19 04:46 96 04/04/19 04:00 110 04/04/19 04:00 2.0 04/04/19 04:00 97.0 103 17 103/52 (69) 91 04/04/19 00:00 106 04/04/19 00:00 2.0 04/03/19 22:14 97.8 04/03/19 21:00 Nasal Cannula 2.0 04/03/19 20:00 97.5 117 22 144/71 (95) 90 04/03/19 20:00 2.0 04/03/19 20:00 116 04/03/19 19:00 97 Nasal Cannula 3.0 32 04/03/19 16:00 Bi-pap 04/03/19 16:00 97.8 112 21 117/69 (85) 99 04/03/19 16:00 117 04/03/19 12:00 Bi-pap 04/03/19 12:00 2.0 04/03/19 12:00 112 04/03/19 12:00 97.9 115 21 112/73 (86) 98 Intake and Output 04/03/19 04/04/19 19:00 07:00 Intake Total 700 ml 1210 ml Output Total 200 ml 350 ml Balance 500 ml 860 ml Intake Oral 600 ml IV Total 100 ml 1210 ml Output Urine Total 200 ml 350 ml Laboratory Tests 04/04/19 06:50: White Blood Count 9.7, Red Blood Count 3.19L, Hemoglobin 9.4L, Hematocrit 27.9L , Mean Corpuscular Volume 87, Mean Corpuscular Hemoglobin 29.4, Mean Corpuscular Hemoglobin Concent 33.6, Red Cell Distribution Width 13.0, Platelet Count 234, Mean Platelet Volume 5.8L, Neutrophils (%) (Auto) 57.7, Lymphocytes ( %) (Auto) 27.5, Monocytes (%) (Auto) 10.8H, Eosinophils (%) (Auto) 3.6H, Basophils (%) (Auto) 0.5, Sodium Level 142, Potassium Level 3.5, Chloride Level 105, Carbon Dioxide Level 31, Anion Gap 6, Blood Urea Nitrogen 26H, Creatinine 0.7, Estimat Glomerular Filtration Rate , Glucose Level 115H, Calcium Level 9.2 Height (Feet): 5 Height (Inches): 4.00 Weight (Pounds): 134 Objective General Appearance: sleeping, easily arousable, alert and oriented to self ( baseline x4), off bipap Lines, tubes and drains: peripheral HEENT: normocephalic, atraumatic, PERRL, EOMI, no JVD, DRY MM Neck: non-tender, normal alignment, supple Respiratory/Chest: rales and rhonchi Cardiovascular/Chest: tachycardic, regular rhythm, no m/r/g Abdomen: normal bowel sounds, soft, obese, non tender Extremities: normal range of motion, non-tender, normal inspection, moves all ext, no edema Skin Exam: poor turger, refer to photos , stage 2 sacral decub Neurologic: lethargic, unable to assess, moves all four limbs Musculoskeletal: normal muscle bulk, no effusion, atrophy Philipp Moreau M.D. Apr 04, 2019 09:26
[2019-04-04] MEDS: Lyrica 75mg cap ORAL SCH ×2 (09:27→17:24)
[2019-04-04] MEDS: Meropenem 1 GM in NS 110 ML IVPB SCH ×2 (09:27→20:59)
[2019-04-04] MEDS: clonazePAM 0.5mg tab ORAL SCH ×2 (09:27→17:23)
[2019-04-04] MEDS: Docusate 100mg cap ORAL SCH ×3 (09:28→17:23)
[2019-04-04] MEDS: Ascorbic Acid 500mg tab ORAL SCH (09:29)
[2019-04-04] MEDS: Dronabinol 2.5mg Cap ORAL SCH ×2 (09:29→17:24)
[2019-04-04] MEDS: Pantoprazole Inj IVP SCH ×2 (09:30→20:59)
[2019-04-04] MEDS: Lisinopril 20mg tab ORAL SCH (09:30)
--- NOTE | 2019-04-04 09:32 | General Progress Note ---
Assessment/Plan Status: progressing - much improvement Assessment/Plan: GI: Plan Problems: (1) GERD (gastroesophageal reflux disease) (2) Anemia (3) Protein-calorie malnutrition, mild (4) Severe sepsis (5) Decub ulcer (6) malnutrition Plan History of endoscopy and colonoscopy on February 11, 2019 noted with gastritis and one colonic polyp. No plan for any GI procedures at this time given recent history of procedure and unstable respiratory status. Obtain anemia work-up Fecal occult blood stool to rule out any GI bleed PPI daily Monitor H&H, PRN transfusions Antibiotics per infectious diseases We will follow on a daily basis with additional recommendations. passed swallow eval for puree diet but poor po intake good response to marinol calorie count wound care Subjective Allergies: Coded Allergies: [place] (Unverified Allergy, Mild, upset stomach, 02/10/19) T[place]AT[place] (Unverified Allergy, Mild, upset stomach, 02/10/19) TETRACYCLINE (Unverified Allergy, Unknown, 07/24/14) Objective Last 24 Hour Vital Signs Date Time Temp Pulse Resp B/P (MAP) Pulse Ox O2 Delivery O2 Flow Rate FiO2 04/04/19 08:00 97.5 102 19 131/61 (84) 100 04/04/19 08:00 2.0 04/04/19 07:47 92 Nasal Cannula 3.0 32 04/04/19 07:47 92 20 92 Bi-Pap 21 04/04/19 04:46 96 04/04/19 04:00 110 04/04/19 04:00 2.0 04/04/19 04:00 97.0 103 17 103/52 (69) 91 04/04/19 00:00 106 04/04/19 00:00 2.0 04/03/19 22:14 97.8 04/03/19 21:00 Nasal Cannula 2.0 04/03/19 20:00 97.5 117 22 144/71 (95) 90 04/03/19 20:00 2.0 04/03/19 20:00 116 04/03/19 19:00 97 Nasal Cannula 3.0 32 04/03/19 16:00 Bi-pap 04/03/19 16:00 97.8 112 21 117/69 (85) 99 04/03/19 16:00 117 04/03/19 12:00 Bi-pap 04/03/19 12:00 2.0 04/03/19 12:00 112 04/03/19 12:00 97.9 115 21 112/73 (86) 98 Intake and Output 04/03/19 04/04/19 18:59 06:59 Intake Total 600 ml 1310 ml Output Total 200 ml 350 ml Balance 400 ml 960 ml Intake Oral 600 ml IV Total 1310 ml Output Urine Total 200 ml 350 ml Laboratory Tests 04/04/19 06:50: White Blood Count 9.7, Red Blood Count 3.19L, Hemoglobin 9.4L, Hematocrit 27.9L , Mean Corpuscular Volume 87, Mean Corpuscular Hemoglobin 29.4, Mean Corpuscular Hemoglobin Concent 33.6, Red Cell Distribution Width 13.0, Platelet Count 234, Mean Platelet Volume 5.8L, Neutrophils (%) (Auto) 57.7, Lymphocytes ( %) (Auto) 27.5, Monocytes (%) (Auto) 10.8H, Eosinophils (%) (Auto) 3.6H, Basophils (%) (Auto) 0.5, Sodium Level 142, Potassium Level 3.5, Chloride Level 105, Carbon Dioxide Level 31, Anion Gap 6, Blood Urea Nitrogen 26H, Creatinine 0.7, Estimat Glomerular Filtration Rate , Glucose Level 115H, Calcium Level 9.2 Height (Feet): 5 Height (Inches): 4.00 Weight (Pounds): 134 General Appearance: no apparent distress EENT: normal ENT inspection Neck: supple Cardiovascular: normal rate Respiratory/Chest: decreased breath sounds Abdomen: normal bowel sounds, non tender, soft Extremities: non-tender Kapil Arshad MD Apr 04, 2019 09:32
[2019-04-04] MEDS: Heparin 5000 units/ml inj SUBQ SCH ×2 (09:40→21:13)
[2019-04-04 11:48] VITALS: BP 112/61
--- NOTE | 2019-04-04 13:11 | General Progress Note ---
Assessment/Plan Problem List: (1) Acute and chronic respiratory failure (juyqv-jw-ibcsslu) ICD Codes: J96.20 - Acute and chr resp failure, unsp w hypoxia or hypercapnia SNOMED: 58128827 (2) Respiratory failure with hypoxia ICD Codes: J96.91 - Respiratory failure, unspecified with hypoxia SNOMED: 47092291934652361 (3) Gram-negative bacteremia ICD Codes: R78.81 - Bacteremia SNOMED: 203578360235 (4) Severe sepsis ICD Codes: A41.9 - Sepsis, unspecified organism; R65.20 - Severe sepsis without septic shock SNOMED: 10920202 (5) CRISTÓBAL (acute kidney injury) ICD Codes: N17.9 - Acute kidney failure, unspecified SNOMED: 38736480, 1930199, 431787798 (6) UTI (urinary tract infection) ICD Codes: N39.0 - Urinary tract infection, site not specified SNOMED: 88951873, 45885605, 671379557 (7) Hyponatremia ICD Codes: E87.1 - Hypo-osmolality and hyponatremia SNOMED: 49868683 (8) COPD (chronic obstructive pulmonary disease) ICD Codes: J44.9 - Chronic obstructive pulmonary disease, unspecified SNOMED: 78484053 (9) Anemia ICD Codes: D64.9 - Anemia, unspecified SNOMED: 264389812 (10) Anxiety ICD Codes: F41.9 - Anxiety disorder, unspecified SNOMED: 57083495 (11) Hypertension ICD Codes: I10 - Essential (primary) hypertension SNOMED: 67119991 (12) History of breast cancer ICD Codes: Z85.3 - Personal history of malignant neoplasm of breast SNOMED: 369590322 (13) Diastolic CHF ICD Codes: I50.30 - Unspecified diastolic (congestive) heart failure SNOMED: 48870389, 043380528 (14) Hypercholesteremia ICD Codes: E78.00 - Pure hypercholesterolemia, unspecified SNOMED: 47131957 (15) Protein-calorie malnutrition, mild ICD Codes: E44.1 - Mild protein-calorie malnutrition SNOMED: 24483743 Status: progressing - much improvement Assessment/Plan: 78-year-old female with PMHx of COPD on 2L O2, HTN, diastolic CHF, chronic, osteoporosis, IBS-C, DDD, anemia and UTI sent from SNF for fever, lethargy, and congestion. #Severe sepsis/ septic shock secondary to pneumonia, ? aspiration ?HCAP vs. UTI , gram negative bacteremia, gram negative UTI. resolving #Acute on chronic hypoxic respiratory failure- responding to non invasive positive pressure ventilation #CRISTÓBAL- prerenal- resolved, bun trending up, poor po intake #diastolic CHF, possible acute exacerbation, however on exam, she is hypovolemic #Hyponatremia- hypovolemic, resolved #COPD on home O2, doubt exacerbation #HTN, HLD #Normocytic Anemia- stable #Anxiety/depression #Mild protein calorie malnutrition #Hypernatremia over the weekend- resolved -s/p IV hydration, stopped, resume d5ns @50 while poor po intake -Broad spectrum antibiotics: s/p Zosyn, Vancomycin and Azithromycin. Renal dose. Per ID switch to Amikacin and meropenem. -stop bipap, titrate to keep SpO2 >90% -ID and pulmonary consults -Repeat Echocardiogram reviewed - Duo-Nebs Q6hr PRN SOB/Wheezing - continue home Singulair -Monitor renal function, continue shi, if cr without improvement, renal consult - resume ACEi - resume Amlodipine 10mg PO daily - resume stain and ASA while npo - resume lyrica 75mg PO BID - resume Lexapro 20mg Po daily, Resume Klonipin and ativan prn. Psychiatry consult with Dr. Stern who know her from [facility] - resume Colace 100mg Po BID - resume simethecone 125mg PO TID -Marinol #Goals of care - DNR/DNI, POLST reviewed FENPPx Fluids: 1 L bolus, reassess Diet: LIQUIFIED PUREED LIKE NECTAR THICK LIQUIDS. DVTPPx: Heparin SBQ q12 GI PPX: PPI IV PT/OT: pending Code status: DNR/DNI, per polst Dispo: Back to [facility] pending clinical course I spent 40 minutes on this encounter, 20 minutes spent on counselling and care coordination D/w RN, general surgery: Dr. Orellana, pulmonary: Dr. Lerma, ID: Dr. Grady. Subjective Date patient seen: Apr 04, 2019 ROS Limited/Unobtainable: Yes Allergies: Coded Allergies: [place] (Unverified Allergy, Mild, upset stomach, 02/10/19) [place] (Unverified Allergy, Mild, upset stomach, 02/10/19) TETRACYCLINE (Unverified Allergy, Unknown, 07/24/14) Subjective seen and examined. breathing RA, doesn't want to eat. speech therapist involved in assessing swallow function Objective Last 24 Hour Vital Signs Date Time Temp Pulse Resp B/P (MAP) Pulse Ox O2 Delivery O2 Flow Rate FiO2 04/04/19 11:48 98.6 89 20 112/61 (78) 93 04/04/19 09:57 97.5 04/04/19 09:30 131/61 04/04/19 09:28 102 131/61 04/04/19 09:00 Nasal Cannula 2.0 04/04/19 08:00 97.5 102 19 131/61 (84) 100 04/04/19 08:00 2.0 04/04/19 07:47 92 Nasal Cannula 3.0 32 04/04/19 07:47 92 20 92 Bi-Pap 21 04/04/19 07:44 84 04/04/19 04:46 96 04/04/19 04:00 110 04/04/19 04:00 2.0 04/04/19 04:00 97.0 103 17 103/52 (69) 91 04/04/19 00:00 106 04/04/19 00:00 2.0 04/03/19 22:14 97.8 04/03/19 21:00 Nasal Cannula 2.0 04/03/19 20:00 97.5 117 22 144/71 (95) 90 04/03/19 20:00 2.0 04/03/19 20:00 116 04/03/19 19:00 97 Nasal Cannula 3.0 32 04/03/19 16:00 Bi-pap 04/03/19 16:00 97.8 112 21 117/69 (85) 99 04/03/19 16:00 117 Intake and Output 04/03/19 04/04/19 18:59 06:59 Intake Total 600 ml 1310 ml Output Total 200 ml 350 ml Balance 400 ml 960 ml Intake Oral 600 ml IV Total 1310 ml Output Urine Total 200 ml 350 ml Laboratory Tests 04/04/19 06:50: White Blood Count 9.7, Red Blood Count 3.19L, Hemoglobin 9.4L, Hematocrit 27.9L , Mean Corpuscular Volume 87, Mean Corpuscular Hemoglobin 29.4, Mean Corpuscular Hemoglobin Concent 33.6, Red Cell Distribution Width 13.0, Platelet Count 234, Mean Platelet Volume 5.8L, Neutrophils (%) (Auto) 57.7, Lymphocytes ( %) (Auto) 27.5, Monocytes (%) (Auto) 10.8H, Eosinophils (%) (Auto) 3.6H, Basophils (%) (Auto) 0.5, Sodium Level 142, Potassium Level 3.5, Chloride Level 105, Carbon Dioxide Level 31, Anion Gap 6, Blood Urea Nitrogen 26H, Creatinine 0.7, Estimat Glomerular Filtration Rate , Glucose Level 115H, Calcium Level 9.2 Height (Feet): 5 Height (Inches): 4.00 Weight (Pounds): 134 Objective General Appearance: sleeping, easily arousable, awake Lines, tubes and drains: peripheral HEENT: normocephalic, atraumatic, PERRL, EOMI, no JVD, DRY MM Neck: non-tender, normal alignment, supple Respiratory/Chest: rales and rhonchi Cardiovascular/Chest: tachycardic, regular rhythm, no m/r/g Abdomen: normal bowel sounds, soft, obese, non tender Extremities: normal range of motion, non-tender, normal inspection, moves all ext, no edema Skin Exam: poor turger, refer to photos , stage 2 sacral decub Neurologic: lethargic, unable to assess, moves all four limbs Musculoskeletal: normal muscle bulk, no effusion, atrophy Philipp Moreau M.D. Apr 04, 2019 13:11
--- NOTE | 2019-04-04 15:30 | Infectious Diseases Prog Note ---
Assessment/Plan Assessment/Plan ASSESSMENT AND PLAN: 1. e.coli uti/pyelonephritis with bacteremia, sepsis, leukocytosis, fevers - meropenem - day # 5 - clinically improved - surveillance blood cultures negative, leukocytosis improved, fevers resolved - monitor labs 2. Acute kidney injury with elevated creatinine. 3. IBS 4. Congestive heart failure and edema - sob better 5. Hypertension. 6. Hyperlipidemia. 7. Blood pressure treatment per primary care team for hypertension. 8. Anemia. 9. Chronic obstructive pulmonary disease. 10. Gastroesophageal reflux disease. 11. Chronic obstructive pulmonary disease and congestive heart failure treatment per primary care team. 12. IBS. 13. Encephalopathy. 14. Gastritis. 15. Anxiety. 16. Hypercholesterolemia and dyslipidemia. 17. Breast cancer. 18. Malnutrition history. 19. Allergies to oranges, tetracycline, and tomatoes. 20. Social history is negative. 21. Family history is noncontributory. 22. MAR is noted. 23. Case was discussed with RN. 24. Skin care protocol. 25. Continue treatment per primary consultants and [place] care. 26. Orders were noted and entered. 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 Subjective Constitutional: Reports: fatigue; Denies: fever HEENT: Denies: congestion Respiratory: Denies: shortness of breath Cardiovascular: Denies: chest pain Gastrointestinal/Abdominal: Denies: nausea, vomiting, diarrhea Genitourinary: Reports: other - + shi Neurologic: Denies: headache Psychiatric: Denies: depression Skin: Denies: rash Hematologic: Denies: bleeding Musculoskeletal: Denies: pain Allergies: Coded Allergies: [place] (Unverified Allergy, Mild, upset stomach, 02/10/19) [place]ATO (Unverified Allergy, Mild, upset stomach, 02/10/19) TETRACYCLINE (Unverified Allergy, Unknown, 07/24/14) Objective Vital Signs Last 24 Hour Vital Signs Date Time Temp Pulse Resp B/P (MAP) Pulse Ox O2 Delivery O2 Flow Rate FiO2 04/04/19 12:00 2.0 04/04/19 11:48 98.6 89 20 112/61 (78) 93 04/04/19 11:40 106 04/04/19 09:57 97.5 04/04/19 09:30 131/61 04/04/19 09:28 102 131/61 04/04/19 09:00 Nasal Cannula 2.0 04/04/19 08:00 97.5 102 19 131/61 (84) 100 04/04/19 08:00 2.0 04/04/19 07:47 92 Nasal Cannula 3.0 32 04/04/19 07:47 92 20 92 Bi-Pap 21 04/04/19 07:44 84 04/04/19 04:46 96 04/04/19 04:00 110 04/04/19 04:00 2.0 04/04/19 04:00 97.0 103 17 103/52 (69) 91 04/04/19 00:00 106 04/04/19 00:00 2.0 04/03/19 22:14 97.8 04/03/19 21:00 Nasal Cannula 2.0 04/03/19 20:00 97.5 117 22 144/71 (95) 90 04/03/19 20:00 2.0 04/03/19 20:00 116 04/03/19 19:00 97 Nasal Cannula 3.0 32 04/03/19 16:00 Bi-pap 04/03/19 16:00 97.8 112 21 117/69 (85) 99 04/03/19 16:00 117 Height (Feet): 5 Height (Inches): 4.00 Weight (Pounds): 134 General Appearance: no acute distress HEENT: normocephalic, atraumatic, anicteric, mucous membranes moist Respiratory/Chest: lungs clear, normal breath sounds, no respiratory distress, no accessory muscle use Cardiovascular: normal rate, regular rhythm, no gallop/murmur, no JVD Abdomen: normal bowel sounds, soft, non tender, no organomegaly, non distended Genitourinary: other - + shi - urine cloudy Extremities: no cyanosis Skin: no rash Neurologic/Psychiatric: powder nipper II-XII grossly normal, alert, oriented x 3, responsive Lymphatic: no neck adenopathy Musculoskeletal: no effusion Objective Chest x-ray - 03/31/19 - Procedure: XRAY Chest 1v Indication: Dyspnea Comparison: 03/30/2019 A single view chest radiograph was obtained. Findings: Increasing airspace disease in the right upper lobe noted as well as at both lung bases. The heart is mildly enlarged. The interstitium and pulmonary vascularity also appear prominent. IMPRESSION: Worsening airspace disease probably on the basis of congestive heart failure. Correlate clinically Microbiology Date/Time Source Procedure Growth Status 04/01/19 03:45 Blood Blood Culture - Preliminary NO GROWTH AFTER 72 HOURS Resulted 03/30/19 06:00 Nasal Aspirate MRSA Culture - Final Staphylococcus Aureus - Mrsa Complete 03/30/19 04:50 Urine,Clean Catch Urine Culture - Final Escherichia Coli - Esbl Complete 03/30/19 06:00 Rectum - Final NO CARBAPENEM-RESISTANT ENTEROBACTERI... Complete Microbiology Date/Time Source Procedure Growth Status 04/01/19 03:45 Blood Blood Culture - Preliminary NO GROWTH AFTER 72 HOURS Resulted 03/30/19 06:00 Nasal Aspirate MRSA Culture - Final Staphylococcus Aureus - Mrsa Complete 03/30/19 04:50 Urine,Clean Catch Urine Culture - Final Escherichia Coli - Esbl Complete 03/30/19 06:00 Rectum - Final NO CARBAPENEM-RESISTANT ENTEROBACTERI... Complete Laboratory Tests Test 04/04/19 06:50 White Blood Count 9.7 K/UL (4.8-10.8) Red Blood Count 3.19 M/UL (4.20-5.40) L Hemoglobin 9.4 G/DL (12.0-16.0) L Hematocrit 27.9 % (37.0-47.0) L Mean Corpuscular Volume 87 FL (80-99) Mean Corpuscular Hemoglobin 29.4 PG (27.0-31.0) Mean Corpuscular Hemoglobin Concent 33.6 G/DL (32.0-36.0) Red Cell Distribution Width 13.0 % (11.6-14.8) Platelet Count 234 K/UL (150-450) Mean Platelet Volume 5.8 FL (6.5-10.1) L Neutrophils (%) (Auto) 57.7 % (45.0-75.0) Lymphocytes (%) (Auto) 27.5 % (20.0-45.0) Monocytes (%) (Auto) 10.8 % (1.0-10.0) H Eosinophils (%) (Auto) 3.6 % (0.0-3.0) H Basophils (%) (Auto) 0.5 % (0.0-2.0) Sodium Level 142 MMOL/L (136-145) Potassium Level 3.5 MMOL/L (3.5-5.1) Chloride Level 105 MMOL/L (98-107) Carbon Dioxide Level 31 MMOL/L (21-32) Anion Gap 6 mmol/L (5-15) Blood Urea Nitrogen 26 mg/dL (7-18) H Creatinine 0.7 MG/DL (0.55-1.30) Estimat Glomerular Filtration Rate mL/min (>60) Glucose Level 115 MG/DL (74-106) H Calcium Level 9.2 MG/DL (8.5-10.1) Current Medications Medications (Trade) Dose Ordered Sig/Wilner Route PRN Reason Start Time Stop Time Status Last Admin Dose Admin Acetaminophen (Tylenol) 650 mg Q4H PRN ORAL Mild - mod Pain/Temp > 100.5 04/03/19 18:15 05/02/19 18:14 04/03/19 21:37 Amlodipine Besylate (Norvasc) 10 mg DAILY ORAL 04/04/19 09:00 05/02/19 08:59 04/04/19 09:28 Ascorbic Acid (Vitamin C) 250 mg DAILY ORAL 04/04/19 09:00 05/01/19 08:59 04/04/19 09:29 Barium Sulfate (Varibar Honey) 250 ml NOW PRN RAD 04/03/19 18:00 04/04/19 23:59 Barium Sulfate (Varibar [place]) 240 ml NOW PRN RAD 04/03/19 18:00 04/04/19 23:59 Clonazepam (KlonoPIN) 0.5 mg BID ORAL 04/04/19 09:00 04/11/19 08:59 04/04/19 09:27 Dextrose 1,000 ml @ 50 mls/hr Q20H IV 04/04/19 13:06 05/04/19 13:05 04/04/19 13:52 Docusate Sodium (Colace) 100 mg THREE TIMES A DAY ORAL 04/04/19 09:00 05/04/19 08:59 04/04/19 13:52 Dronabinol (Marinol) 2.5 mg BID ORAL 04/04/19 09:00 05/04/19 08:59 04/04/19 09:29 Escitalopram Oxalate (Lexapro) 20 mg DAILY ORAL 04/04/19 09:00 04/30/19 14:02 04/04/19 09:28 Heparin Sodium (Porcine) (Heparin 5000 units/ml) 5,000 units EVERY 12 HOURS SUBQ 04/03/19 21:00 04/29/19 09:29 04/04/19 09:40 Hydralazine HCl (Apresoline) 10 mg Q4H PRN IV sbp>150 04/03/19 18:00 04/30/19 17:59 Lisinopril (Prinivil) 20 mg DAILY ORAL 04/04/19 09:00 05/02/19 08:59 04/04/19 09:30 Lorazepam (Ativan) 0.5 mg BIDPRN PRN ORAL For Anxiety 04/03/19 18:00 04/10/19 17:59 04/03/19 21:38 Meropenem 1 gm/ Sodium Chloride 110 ml @ 220 mls/hr Q12HR IVPB 04/03/19 21:00 04/09/19 23:59 04/04/19 09:27 Methocarbamol (Robaxin) 500 mg Q6H PRN ORAL muscle spasms 04/03/19 18:00 05/02/19 17:59 Multivitamins (Multivitamins) 1 tab DAILY ORAL 04/04/19 09:00 05/01/19 08:59 04/04/19 09:29 Ondansetron HCl (Zofran) 4 mg Q4H PRN IVP Nausea & Vomiting 04/03/19 18:15 05/01/19 14:14 04/03/19 20:37 Oxycodone HCl (Roxicodone) 5 mg Q6H PRN ORAL Breakthrough Pain 04/03/19 21:30 04/09/19 21:29 Pantoprazole (Protonix) 40 mg EVERY 12 HOURS IVP 04/03/19 21:00 04/29/19 09:59 04/04/19 09:30 Polyethylene Glycol (Miralax) 17 gm DAILY PRN ORAL Constipation 04/04/19 08:00 05/04/19 07:59 04/04/19 11:29 Pregabalin (Lyrica) 75 mg BID ORAL 04/04/19 09:00 05/04/19 08:59 04/04/19 09:27 Tramadol HCl (Ultram) 50 mg Q6H PRN ORAL severe pain 04/03/19 19:30 04/09/19 13:29 04/03/19 20:35 Nyasia Grover MD Apr 04, 2019 15:30
[2019-04-04 16:00] VITALS: BP 135/65
--- NOTE | 2019-04-04 18:10 | Pulmonology Progress Note ---
Assessment/Plan Problems: (1) UTI (urinary tract infection) Assessment & Plan: E coli (2) Sepsis with acute hypoxic respiratory failure (3) CRISTÓBAL (acute kidney injury) (4) COPD (chronic obstructive pulmonary disease) (5) Anemia (6) Anxiety (7) Hypercholesteremia (8) Hyponatremia (9) Acute and chronic respiratory failure ([id number]) (10) Hypertension (11) Protein-calorie malnutrition, mild Assessment/Plan ASSESSMENT: The patient is a 78-year-old female with history of COPD, CHF with diastolic dysfunction, GERD, anemia, hypertension, hyperlipidemia, IBS, halfway resident with pulsating comfort measures only and DNR, presenting with altered mental status, hypertension, likely secondary to UTI with urosepsis and hypoxemia secondary to above. PROBLEM LIST: 1. Hypoxemia likely secondary to urosepsis. 2. E coli UTI and GNR sepsis 3. COPD. 4. Home O2 dependence. 5. CHF with diastolic dysfunction. 6. CRISTÓBAL with hyponatremia. 7. Anemia. 8. Recent admission for gastritis. 9. Hypertension, hyperlipidemia, GERD, IBS. 10. DNAR, PULSE comfort measures only. TREATMENT PLAN: 1. Off BiPAP 2. Titrate on FiO2 to keep saturations greater than 90%. 3. Abx per ID 4. Monitor volumes and renal function, mIVF 5. Diet per ENERGY SCHEDULER with ASPIRATION precautions 6. Monitor mental status. 7. DVT prophylaxis, heparin subcutaneous. 8. The patient is DNAR, and has a POLST: comfort measures only, we will need to discuss further goals of care. Subjective Allergies: Coded Allergies: [place] (Unverified Allergy, Mild, upset stomach, 02/10/19) TOMATO (Unverified Allergy, Mild, upset stomach, 02/10/19) TETRACYCLINE (Unverified Allergy, Unknown, 07/24/14) Subjective AFVSS, O2 needs stable, barely radha PO, no cough, no SOB, no FC Objective Last 24 Hour Vital Signs Date Time Temp Pulse Resp B/P (MAP) Pulse Ox O2 Delivery O2 Flow Rate FiO2 04/04/19 16:16 120 04/04/19 16:00 96.6 106 18 135/65 (88) 92 04/04/19 16:00 2.0 04/04/19 15:19 115 04/04/19 12:00 2.0 04/04/19 11:48 98.6 89 20 112/61 (78) 93 04/04/19 11:40 106 04/04/19 09:57 97.5 04/04/19 09:30 131/61 04/04/19 09:28 102 131/61 04/04/19 09:00 Nasal Cannula 2.0 04/04/19 08:00 97.5 102 19 131/61 (84) 100 04/04/19 08:00 2.0 04/04/19 07:47 92 Nasal Cannula 3.0 32 04/04/19 07:47 92 20 92 Bi-Pap 21 04/04/19 07:44 84 04/04/19 04:46 96 04/04/19 04:00 110 04/04/19 04:00 2.0 04/04/19 04:00 97.0 103 17 103/52 (69) 91 04/04/19 00:00 106 04/04/19 00:00 2.0 04/03/19 22:14 97.8 04/03/19 21:00 Nasal Cannula 2.0 04/03/19 20:00 97.5 117 22 144/71 (95) 90 04/03/19 20:00 2.0 04/03/19 20:00 116 04/03/19 19:00 97 Nasal Cannula 3.0 32 Intake and Output 04/03/19 04/04/19 19:00 07:00 Intake Total 700 ml 1210 ml Output Total 200 ml 350 ml Balance 500 ml 860 ml Intake Oral 600 ml IV Total 100 ml 1210 ml Output Urine Total 200 ml 350 ml General Appearance: no acute distress, cachetic HEENT: normocephalic, atraumatic, anicteric, mucous membranes moist Respiratory/Chest: rhonchi Cardiovascular: normal peripheral pulses, normal rate, regular rhythm Abdomen: normal bowel sounds, soft, non tender, no organomegaly, non distended , no mass Extremities: no cyanosis, no clubbing, no edema Laboratory Tests 04/04/19 06:50: White Blood Count 9.7, Red Blood Count 3.19L, Hemoglobin 9.4L, Hematocrit 27.9L , Mean Corpuscular Volume 87, Mean Corpuscular Hemoglobin 29.4, Mean Corpuscular Hemoglobin Concent 33.6, Red Cell Distribution Width 13.0, Platelet Count 234, Mean Platelet Volume 5.8L, Neutrophils (%) (Auto) 57.7, Lymphocytes ( %) (Auto) 27.5, Monocytes (%) (Auto) 10.8H, Eosinophils (%) (Auto) 3.6H, Basophils (%) (Auto) 0.5, Sodium Level 142, Potassium Level 3.5, Chloride Level 105, Carbon Dioxide Level 31, Anion Gap 6, Blood Urea Nitrogen 26H, Creatinine 0.7, Estimat Glomerular Filtration Rate , Glucose Level 115H, Calcium Level 9.2 04/04/19 15:15: Stool Occult Blood [Pending] Current Medications Medications (Trade) Dose Ordered Sig/Wilner Route PRN Reason Start Time Stop Time Status Last Admin Dose Admin Acetaminophen (Tylenol) 650 mg Q4H PRN ORAL Mild - mod Pain/Temp > 100.5 04/03/19 18:15 05/02/19 18:14 04/03/19 21:37 Amlodipine Besylate (Norvasc) 10 mg DAILY ORAL 04/04/19 09:00 05/02/19 08:59 04/04/19 09:28 Ascorbic Acid (Vitamin C) 250 mg DAILY ORAL 04/04/19 09:00 05/01/19 08:59 04/04/19 09:29 Barium Sulfate (Varibar Honey) 250 ml NOW PRN RAD 04/03/19 18:00 04/04/19 23:59 Barium Sulfate (Varibar [place]) 240 ml NOW PRN RAD 04/03/19 18:00 04/04/19 23:59 Clonazepam (KlonoPIN) 0.5 mg BID ORAL 04/04/19 09:00 04/11/19 08:59 04/04/19 17:23 Dextrose 1,000 ml @ 50 mls/hr Q20H IV 04/04/19 13:06 05/04/19 13:05 04/04/19 13:52 Docusate Sodium (Colace) 100 mg THREE TIMES A DAY ORAL 04/04/19 09:00 05/04/19 08:59 04/04/19 17:23 Dronabinol (Marinol) 2.5 mg BID ORAL 04/04/19 09:00 05/04/19 08:59 04/04/19 17:24 Escitalopram Oxalate (Lexapro) 20 mg DAILY ORAL 04/04/19 09:00 04/30/19 14:02 04/04/19 09:28 Heparin Sodium (Porcine) (Heparin 5000 units/ml) 5,000 units EVERY 12 HOURS SUBQ 04/03/19 21:00 04/29/19 09:29 04/04/19 09:40 Hydralazine HCl (Apresoline) 10 mg Q4H PRN IV sbp>150 04/03/19 18:00 04/30/19 17:59 Lisinopril (Prinivil) 20 mg DAILY ORAL 04/04/19 09:00 05/02/19 08:59 04/04/19 09:30 Lorazepam (Ativan) 0.5 mg BIDPRN PRN ORAL For Anxiety 04/03/19 18:00 04/10/19 17:59 04/03/19 21:38 Magnesium Sulfate 100 ml @ 100 mls/hr Q1H IVPB 04/04/19 17:45 04/04/19 19:44 04/04/19 17:53 Meropenem 1 gm/ Sodium Chloride 110 ml @ 220 mls/hr Q12HR IVPB 04/03/19 21:00 04/09/19 23:59 04/04/19 09:27 Methocarbamol (Robaxin) 500 mg Q6H PRN ORAL muscle spasms 04/03/19 18:00 05/02/19 17:59 Multivitamins (Multivitamins) 1 tab DAILY ORAL 04/04/19 09:00 05/01/19 08:59 04/04/19 09:29 Ondansetron HCl (Zofran) 4 mg Q4H PRN IVP Nausea & Vomiting 04/03/19 18:15 05/01/19 14:14 04/03/19 20:37 Oxycodone HCl (Roxicodone) 5 mg Q6H PRN ORAL Breakthrough Pain 04/03/19 21:30 04/09/19 21:29 Pantoprazole (Protonix) 40 mg EVERY 12 HOURS IVP 04/03/19 21:00 04/29/19 09:59 04/04/19 09:30 Polyethylene Glycol (Miralax) 17 gm DAILY PRN ORAL Constipation 04/04/19 08:00 05/04/19 07:59 04/04/19 11:29 Pregabalin (Lyrica) 75 mg BID ORAL 04/04/19 09:00 05/04/19 08:59 04/04/19 17:24 Tramadol HCl (Ultram) 50 mg Q6H PRN ORAL severe pain 04/03/19 19:30 04/09/19 13:29 04/03/19 20:35 Rafael Lerma MD Apr 04, 2019 18:10
--- NOTE | 2019-04-04 18:28 | Surgery Progress Note ---
Surgery Progress Note Subjective Additional Comments afebrile, HD stable labs improved exam stable comfortable Objective Last 24 Hour Vital Signs Date Time Temp Pulse Resp B/P (MAP) Pulse Ox O2 Delivery O2 Flow Rate FiO2 04/04/19 18:19 Nasal Cannula 2.0 04/04/19 16:16 120 04/04/19 16:00 96.6 106 18 135/65 (88) 92 04/04/19 16:00 2.0 04/04/19 15:19 115 04/04/19 12:00 2.0 04/04/19 11:48 98.6 89 20 112/61 (78) 93 04/04/19 11:40 106 04/04/19 09:57 97.5 04/04/19 09:30 131/61 04/04/19 09:28 102 131/61 04/04/19 09:00 Nasal Cannula 2.0 04/04/19 08:00 97.5 102 19 131/61 (84) 100 04/04/19 08:00 2.0 04/04/19 07:47 92 Nasal Cannula 3.0 32 04/04/19 07:47 92 20 92 Bi-Pap 21 04/04/19 07:44 84 04/04/19 04:46 96 04/04/19 04:00 110 04/04/19 04:00 2.0 04/04/19 04:00 97.0 103 17 103/52 (69) 91 04/04/19 00:00 106 04/04/19 00:00 2.0 04/03/19 22:14 97.8 04/03/19 21:00 Nasal Cannula 2.0 04/03/19 20:00 97.5 117 22 144/71 (95) 90 04/03/19 20:00 2.0 04/03/19 20:00 116 04/03/19 19:00 97 Nasal Cannula 3.0 32 I&O Intake and Output 04/03/19 04/04/19 19:00 07:00 Intake Total 700 ml 1210 ml Output Total 200 ml 350 ml Balance 500 ml 860 ml Intake Oral 600 ml IV Total 100 ml 1210 ml Output Urine Total 200 ml 350 ml Dressing: other Wound: other Drains: other Cardiovascular: RSR Respiratory: clear Abdomen: soft, non-tender, present bowel sounds Extremities: no cyanosis Laboratory Tests Test 04/04/19 06:50 04/04/19 15:15 White Blood Count 9.7 K/UL (4.8-10.8) Red Blood Count 3.19 M/UL (4.20-5.40) L Hemoglobin 9.4 G/DL (12.0-16.0) L Hematocrit 27.9 % (37.0-47.0) L Mean Corpuscular Volume 87 FL (80-99) Mean Corpuscular Hemoglobin 29.4 PG (27.0-31.0) Mean Corpuscular Hemoglobin Concent 33.6 G/DL (32.0-36.0) Red Cell Distribution Width 13.0 % (11.6-14.8) Platelet Count 234 K/UL (150-450) Mean Platelet Volume 5.8 FL (6.5-10.1) L Neutrophils (%) (Auto) 57.7 % (45.0-75.0) Lymphocytes (%) (Auto) 27.5 % (20.0-45.0) Monocytes (%) (Auto) 10.8 % (1.0-10.0) H Eosinophils (%) (Auto) 3.6 % (0.0-3.0) H Basophils (%) (Auto) 0.5 % (0.0-2.0) Sodium Level 142 MMOL/L (136-145) Potassium Level 3.5 MMOL/L (3.5-5.1) Chloride Level 105 MMOL/L (98-107) Carbon Dioxide Level 31 MMOL/L (21-32) Anion Gap 6 mmol/L (5-15) Blood Urea Nitrogen 26 mg/dL (7-18) H Creatinine 0.7 MG/DL (0.55-1.30) Estimat Glomerular Filtration Rate mL/min (>60) Glucose Level 115 MG/DL (74-106) H Calcium Level 9.2 MG/DL (8.5-10.1) Stool Occult Blood Pending Plan Problems: (1) Leukocytosis Assessment & Plan: leukocytosis resolved labs noted exam stable Abx as per ID cont IV abx likely dehydrated trend labs (2) Decubitus skin ulcer Assessment & Plan: Pt presented on admission with moisture intertrigo R and L breasts. both breast folds are erythematous with denuded skin . DTPI noted to Upper R buttocks. Base of wound is maroon is indurated and elongated with surrounding non-blanching erythema. (L)1cm x (W)4cm. Both heels are soft pink and blanchable.No other skin concerns noted. Tx.Plan: Apply Hydraguard Silicone cream to R and L breasts Daily. Apply Moisture Barrier Paste to Sacrum and R buttocks. Cover with Optifoam drsg. Change every 3 days and prn. Apply Cavilon Skin Barrier to both heels. Cover each heels with Optifoam drsg. Change every 7 days and prn. APM/MARCUS Mattress overlay. Reposition at least every 2hours or as tolerated. Off-load heels with pillow. (3) Limited mobility (4) Constipation (5) Protein-calorie malnutrition, mild Assessment & Plan: DAILY ESTIMATED NEEDS: Needs based on Wound, cardiac, pulmonary, 46kg 25-30 kcals/kg 9613-4961 total kcals 1.25-1.5 g protein/kg 58-69 g total protein 25-30 mL/kg 6508-6985 total fluid mLs NUTRITION DIAGNOSIS: * Increased kcal/prot needs R/T wound healing as evidenced by pt admitted w/ DTPI wound upper right buttocks. * Swallowing difficulty R/T dysphagia as evidenced by pt NPO at this time per TRACTOR TRAILER TECHNICIAN, MBSS pending. CURRENT DIET:NPO PO DIET RECOMMENDATIONS: LOW NA/ texture per TRACTOR TRAILER TECHNICIAN ADDITIONAL RECOMMENDATIONS: * Per SNF record, ht=57", fc=088tep. * Wound healing: (w/ oral diet) add MVI x 1, Vit C 250mg QD : Edilberto 1pkt BID as tolerated * Consider checking A1C: h/o DM? * Monitor BGs closely, need for carb controlled diet Robert Orellana Apr 04, 2019 18:28
[2019-04-04 20:00] VITALS: BP 124/70
[2019-04-04] MEDS: LORazepam 0.5mg tab ORAL PRN (20:56)
[2019-04-04] MEDS: traMADol 50mg tab ORAL PRN (20:57)
[2019-04-05] VITALS: BP 138/90
[2019-04-05] MEDS: Methocarbamol 500mg tab ORAL PRN (01:22)
[2019-04-05] MEDS: oxyCODONE 5mg IR tab ORAL PRN ×2 (02:31→21:44)
--- NOTE | 2019-04-05 03:45 | Progress Note ---
DATE: 04/04/2019 SUBJECTIVE: The patient has multiple somatic complaints. Gradually improving. Continues to be anxious. Continues to require p.r.n. medications. Refusing vitals at times as well as some medications. MENTAL STATUS EXAMINATION: The patient is alert, oriented times self and place. Mood is anxious. Affect is flat. Thought process, disorganized. Thought content, no suicidal or homicidal ideation. Cognition is impaired. Insight and judgment impaired. ASSESSMENT: 1. Acute encephalopathy, toxic improving. 2. Anxiety disorder. PLAN: We will continue to follow and readjust the medications. Wan Stern M.D. DR: KAYDEN JOB#: [id number] CC:
[2019-04-05 04:00] VITALS: BP 135/70
[2019-04-05 06:36] LABS: BASOPHILS % (AUTO) 0.3 % (0.0-2.0); EOSINOPHILS % (AUTO) 5.3 % (0.0-3.0); HEMATOCRIT 31.1 % (37.0-47.0); LYMPHOCYTES % (AUTO) 24.4 % (20.0-45.0); MEAN CORPUSCULAR VOLUME 92 FL (80-99); PLATELET COUNT 260 K/UL (150-450); RED BLOOD COUNT 3.39 M/UL (4.20-5.40); RED CELL DISTRIBUTION WIDTH 14.5 % (11.6-14.8); WHITE BLOOD COUNT 11.4 K/UL (4.8-10.8)
[2019-04-05 07:08] LABS: ANION GAP 4 mmol/L (5-15); BLOOD UREA NITROGEN 16 mg/dL (7-18); CALCIUM 9.1 MG/DL (8.5-10.1); CARBON DIOXIDE 34 MMOL/L (21-32); CHLORIDE 101 MMOL/L (98-107); CREATININE 0.5 MG/DL (0.55-1.30); POTASSIUM 3.6 MMOL/L (3.5-5.1); SODIUM 139 MMOL/L (136-145)
[2019-04-05 08:00] VITALS: BP 151/80
--- NOTE | 2019-04-05 08:52 | General Progress Note ---
Assessment/Plan Problem List: (1) Acute and chronic respiratory failure (bgbgt-rt-ajordme) ICD Codes: J96.20 - Acute and chr resp failure, unsp w hypoxia or hypercapnia SNOMED: 88108513 (2) Respiratory failure with hypoxia ICD Codes: J96.91 - Respiratory failure, unspecified with hypoxia SNOMED: 40440677585133667 (3) Gram-negative bacteremia ICD Codes: R78.81 - Bacteremia SNOMED: 099541511321 (4) Severe sepsis ICD Codes: A41.9 - Sepsis, unspecified organism; R65.20 - Severe sepsis without septic shock SNOMED: 90058208 (5) CRISTÓBAL (acute kidney injury) ICD Codes: N17.9 - Acute kidney failure, unspecified SNOMED: 25809529, 8354835, 756898646 (6) UTI (urinary tract infection) ICD Codes: N39.0 - Urinary tract infection, site not specified SNOMED: 61121784, 43068423, 663086079 (7) Hyponatremia ICD Codes: E87.1 - Hypo-osmolality and hyponatremia SNOMED: 61670834 (8) COPD (chronic obstructive pulmonary disease) ICD Codes: J44.9 - Chronic obstructive pulmonary disease, unspecified SNOMED: 32169447 (9) Anemia ICD Codes: D64.9 - Anemia, unspecified SNOMED: 184414870 (10) Anxiety ICD Codes: F41.9 - Anxiety disorder, unspecified SNOMED: 86967701 (11) Hypertension ICD Codes: I10 - Essential (primary) hypertension SNOMED: 43018520 (12) History of breast cancer ICD Codes: Z85.3 - Personal history of malignant neoplasm of breast SNOMED: 667195205 (13) Diastolic CHF ICD Codes: I50.30 - Unspecified diastolic (congestive) heart failure SNOMED: 05404420, 421854756 (14) Hypercholesteremia ICD Codes: E78.00 - Pure hypercholesterolemia, unspecified SNOMED: 48143987 (15) Protein-calorie malnutrition, mild ICD Codes: E44.1 - Mild protein-calorie malnutrition SNOMED: 01411575 Status: progressing - much improvement Assessment/Plan: 78-year-old female with PMHx of COPD on 2L O2, HTN, diastolic CHF, chronic, osteoporosis, IBS-C, DDD, anemia and UTI sent from SNF for fever, lethargy, and congestion. #Severe sepsis/ septic shock secondary to pneumonia, ? aspiration ?HCAP vs. UTI , gram negative bacteremia, gram negative UTI. resolving. wbc trending up, ordered cxr #Acute on chronic hypoxic respiratory failure- responding to non invasive positive pressure ventilation #CRISTÓBAL- prerenal- resolved, #diastolic CHF, possible acute exacerbation, however on exam, she is hypovolemic #Hyponatremia- hypovolemic, resolved #COPD on home O2, doubt exacerbation #HTN, HLD #Normocytic Anemia- stable #Anxiety/depression #Mild protein calorie malnutrition #Hypernatremia over the weekend- resolved -s/p IV hydration, stopped, resume d5ns @50 while poor po intake -Broad spectrum antibiotics: s/p Zosyn, Vancomycin and Azithromycin. Renal dose. Per ID switch to Amikacin once and meropenem. -stop bipap, titrate to keep SpO2 >90% -ID and pulmonary consults -Repeat Echocardiogram reviewed - Duo-Nebs Q6hr PRN SOB/Wheezing - continue home Singulair -Monitor renal function, continue shi, if cr without improvement, renal consult - resume ACEi - resume Amlodipine 10mg PO daily -start metoprolol 12.5 BID - resume stain and ASA while npo - resume lyrica 75mg PO BID - resume Lexapro 20mg Po daily, Resume Klonipin and ativan prn. Psychiatry consult with Dr. Stern who know her from [facility] - resume Colace 100mg Po BID - resume simethecone 125mg PO TID -Marinol #Goals of care - DNR/DNI, POLST reviewed FENPPx Fluids: 1 L bolus, reassess Diet: LIQUIFIED PUREED LIKE NECTAR THICK, d/w speech pathologist, will attempt video barium study today to see if can advance diet LIQUIDS. DVTPPx: Heparin SBQ q12 GI PPX: PPI IV PT/OT: pending Code status: DNR/DNI, per pol Dispo: Back to [facility] pending clinical course I spent 40 minutes on this encounter, 20 minutes spent on counselling and care coordination D/w RN, general surgery: Dr. Orellana, pulmonary: Dr. Lerma, ID: Dr. Grady. Subjective Date patient seen: Apr 05, 2019 Constitutional: Denies: no symptoms, chills, diaphoresis, fever, malaise, weakness, other HEENT: Denies: no symptoms, eye pain, blurred vision, tearing, double vision, ear pain, ear discharge, nose pain, nose congestion, throat pain, throat swelling, mouth pain, mouth swelling, other Cardiovascular: Denies: no symptoms, chest pain, edema, irregular heart rate, lightheadedness, palpitations, syncope, other Respiratory: Denies: no symptoms, cough, orthopnea, shortness of breath, SOB with excertion, SOB at rest, sputum, stridor, wheezing, other Gastrointestinal/Abdominal: Reports: nausea, other - pain in lower esophagus Genitourinary: Denies: no symptoms, burning, discharge, frequency, flank pain, hematuria, incontinence, pain, urgency, other Neurologic/Psychiatric: Denies: no symptoms, anxiety, depressed, emotional problems, headache, numbness, paresthesia, pre-existing deficit, seizure, tingling, tremors, weakness, other Endocrine: Denies: no symptoms, excessive sweating, flushing, intolerance to cold, intolerance to heat, increased hunger, increased thirst, increased urine, unexplained weight gain, unexplained weight loss, other Allergies: Coded Allergies: [place] (Unverified Allergy, Mild, upset stomach, 02/10/19) TOMATO (Unverified Allergy, Mild, upset stomach, 02/10/19) TETRACYCLINE (Unverified Allergy, Unknown, 07/24/14) Subjective alert and awake. says wants mechanical soft food. per rn swallowed all pills at once without difficulty. wbc trending up afebrile telemetry reviewed, episode of 16 beats of nsvt electrolytes repleted Objective Last 24 Hour Vital Signs Date Time Temp Pulse Resp B/P (MAP) Pulse Ox O2 Delivery O2 Flow Rate FiO2 04/05/19 08:36 93 Nasal Cannula 2.0 28 04/05/19 08:00 2.0 04/05/19 08:00 97.1 103 20 151/80 (103) 94 04/05/19 04:00 103 04/05/19 04:00 98.6 100 20 135/70 (91) 96 04/05/19 04:00 2.0 04/05/19 00:00 97.8 100 18 138/90 (106) 94 04/05/19 00:00 109 04/05/19 00:00 2.0 04/04/19 22:41 94 Nasal Cannula 2.0 28 04/04/19 21:00 Nasal Cannula 2.0 04/04/19 20:00 2.0 04/04/19 20:00 98.2 107 18 124/70 (88) 94 04/04/19 20:00 110 04/04/19 18:19 Nasal Cannula 2.0 04/04/19 17:54 96.6 04/04/19 16:16 120 04/04/19 16:00 96.6 106 18 135/65 (88) 92 04/04/19 16:00 2.0 04/04/19 15:19 115 04/04/19 12:00 2.0 04/04/19 11:48 98.6 89 20 112/61 (78) 93 04/04/19 11:40 106 04/04/19 09:30 131/61 04/04/19 09:28 102 131/61 04/04/19 09:00 Nasal Cannula 2.0 Intake and Output 04/04/19 04/05/19 19:00 07:00 Intake Total 300 ml 110 ml Output Total 750 ml 2000 ml Balance -450 ml -1890 ml Intake Oral 300 ml IV Total 110 ml Output Urine Total 750 ml 2000 ml # Bowel Movements 2 Laboratory Tests 04/04/19 15:15: Stool Occult Blood [Pending] 04/05/19 05:47: White Blood Count 11.4H, Red Blood Count 3.39L, Hemoglobin 10.0L, Hematocrit 31.1L, Mean Corpuscular Volume 92, Mean Corpuscular Hemoglobin 29.4, Mean Corpuscular Hemoglobin Concent 32.0, Red Cell Distribution Width 14.5, Platelet Count 260, Mean Platelet Volume 5.9L, Neutrophils (%) (Auto) 61.0, Lymphocytes ( %) (Auto) 24.4, Monocytes (%) (Auto) 9.0, Eosinophils (%) (Auto) 5.3H, Basophils (%) (Auto) 0.3, Sodium Level 139, Potassium Level 3.6, Chloride Level 101, Carbon Dioxide Level 34H, Anion Gap 4L, Blood Urea Nitrogen 16, Creatinine 0.5L, Estimat Glomerular Filtration Rate , Glucose Level 111H, Calcium Level 9.1 , Magnesium Level 2.0 Height (Feet): 5 Height (Inches): 4.00 Weight (Pounds): 134 Objective General Appearance: sleeping, easily arousable, awake Lines, tubes and drains: peripheral HEENT: normocephalic, atraumatic, PERRL, EOMI, no JVD, DRY MM Neck: non-tender, normal alignment, supple Respiratory/Chest: rales and rhonchi Cardiovascular/Chest: tachycardic, regular rhythm, no m/r/g Abdomen: normal bowel sounds, soft, obese, non tender Extremities: normal range of motion, non-tender, normal inspection, moves all ext, no edema Skin Exam: poor turger, refer to photos , stage 2 sacral decub Neurologic: lethargic, unable to assess, moves all four limbs Musculoskeletal: normal muscle bulk, no effusion, atrophy Philipp Moreau M.D. Apr 05, 2019 08:52
[2019-04-05] MEDS: Pantoprazole Inj IVP SCH ×2 (09:25→21:47)
[2019-04-05] MEDS: Meropenem 1 GM in NS 110 ML IVPB SCH ×2 (09:27→21:47)
[2019-04-05] MEDS: Docusate 100mg cap ORAL SCH ×3 (09:27→18:22)
[2019-04-05] MEDS: clonazePAM 0.5mg tab ORAL SCH ×2 (09:28→18:22)
[2019-04-05] MEDS: Dronabinol 2.5mg Cap ORAL SCH ×2 (09:29→18:22)
[2019-04-05] MEDS: Lyrica 75mg cap ORAL SCH ×2 (09:29→18:22)
[2019-04-05] MEDS: Lisinopril 20mg tab ORAL SCH (09:30)
[2019-04-05] MEDS: Ascorbic Acid 500mg tab ORAL SCH (09:30)
[2019-04-05] MEDS: Heparin 5000 units/ml inj SUBQ SCH ×2 (09:35→21:57)
[2019-04-05] MEDS: Metoprolol Tartrate 12.5mg TAB ORAL SCH ×2 (10:01→21:44)
--- NOTE | 2019-04-05 10:14 | GI Progress Note ---
Assessment/Plan Problems: (1) GERD (gastroesophageal reflux disease) ICD Codes: K21.9 - Gastro-esophageal reflux disease without esophagitis SNOMED: 278705275 (2) Protein-calorie malnutrition, mild ICD Codes: E44.1 - Mild protein-calorie malnutrition SNOMED: 88929277 (3) Anemia ICD Codes: D64.9 - Anemia, unspecified SNOMED: 724120972 Status: doing well Status Narrative Discussed with Dr. Arshad. Assessment/Plan History of endoscopy and colonoscopy on February 11, 2019 noted with gastritis and one colonic polyp. No plan for any GI procedures at this time given recent history of procedure and unstable respiratory status. anemia work up reviewed Fecal occult blood stool to rule out any GI bleed, pending read PPI daily Monitor H&H, PRN transfusions Antibiotics per infectious diseases We will follow on a daily basis with additional recommendations. passed swallow eval for puree diet but poor po intake good response to marinol calorie count wound care dc planning The patient was seen and examined at bedside and all new and available data was reviewed in the patients chart. I agree with the above findings, impression and plan. (Patient seen earlier today. Signature stamp does not reflect patient encounter time.). - Kapil Arshad MD Subjective Gastrointestinal/Abdominal: Reports: nausea Objective Last 24 Hour Vital Signs Date Time Temp Pulse Resp B/P (MAP) Pulse Ox O2 Delivery O2 Flow Rate FiO2 04/05/19 10:01 103 151/80 04/05/19 09:59 97.1 04/05/19 09:30 151/80 04/05/19 09:30 103 151/80 04/05/19 08:36 93 Nasal Cannula 2.0 28 04/05/19 08:00 2.0 04/05/19 08:00 97.1 103 20 151/80 (103) 94 04/05/19 04:00 103 04/05/19 04:00 98.6 100 20 135/70 (91) 96 04/05/19 04:00 2.0 04/05/19 00:00 97.8 100 18 138/90 (106) 94 04/05/19 00:00 109 04/05/19 00:00 2.0 04/04/19 22:41 94 Nasal Cannula 2.0 28 04/04/19 21:00 Nasal Cannula 2.0 04/04/19 20:00 2.0 04/04/19 20:00 98.2 107 18 124/70 (88) 94 04/04/19 20:00 110 04/04/19 18:19 Nasal Cannula 2.0 04/04/19 16:16 120 04/04/19 16:00 96.6 106 18 135/65 (88) 92 04/04/19 16:00 2.0 04/04/19 15:19 115 04/04/19 12:00 2.0 04/04/19 11:48 98.6 89 20 112/61 (78) 93 04/04/19 11:40 106 Intake and Output 04/04/19 04/05/19 19:00 07:00 Intake Total 300 ml 110 ml Output Total 750 ml 2000 ml Balance -450 ml -1890 ml Intake Oral 300 ml IV Total 110 ml Output Urine Total 750 ml 2000 ml # Bowel Movements 2 Laboratory Tests Test 04/04/19 15:15 04/05/19 05:47 Stool Occult Blood Pending White Blood Count 11.4 K/UL (4.8-10.8) H Red Blood Count 3.39 M/UL (4.20-5.40) L Hemoglobin 10.0 G/DL (12.0-16.0) L Hematocrit 31.1 % (37.0-47.0) L Mean Corpuscular Volume 92 FL (80-99) Mean Corpuscular Hemoglobin 29.4 PG (27.0-31.0) Mean Corpuscular Hemoglobin Concent 32.0 G/DL (32.0-36.0) Red Cell Distribution Width 14.5 % (11.6-14.8) Platelet Count 260 K/UL (150-450) Mean Platelet Volume 5.9 FL (6.5-10.1) L Neutrophils (%) (Auto) 61.0 % (45.0-75.0) Lymphocytes (%) (Auto) 24.4 % (20.0-45.0) Monocytes (%) (Auto) 9.0 % (1.0-10.0) Eosinophils (%) (Auto) 5.3 % (0.0-3.0) H Basophils (%) (Auto) 0.3 % (0.0-2.0) Sodium Level 139 MMOL/L (136-145) Potassium Level 3.6 MMOL/L (3.5-5.1) Chloride Level 101 MMOL/L (98-107) Carbon Dioxide Level 34 MMOL/L (21-32) H Anion Gap 4 mmol/L (5-15) L Blood Urea Nitrogen 16 mg/dL (7-18) Creatinine 0.5 MG/DL (0.55-1.30) L Estimat Glomerular Filtration Rate mL/min (>60) Glucose Level 111 MG/DL (74-106) H Calcium Level 9.1 MG/DL (8.5-10.1) Magnesium Level 2.0 MG/DL (1.8-2.4) Height (Feet): 5 Height (Inches): 4.00 Weight (Pounds): 134 General Appearance: no apparent distress Cardiovascular: normal rate Respiratory/Chest: normal breath sounds, no respiratory distress Abdominal Exam: soft Sky Wood NP Apr 05, 2019 10:13
[2019-04-05] MEDS ORDERED: Tubing IV Secondary IV ONE (11:00)
[2019-04-05] MEDS ORDERED: NS 275ml ONE (11:00)
--- NOTE | 2019-04-05 11:17 | Surgery Progress Note ---
Surgery Progress Note Subjective Additional Comments patient seen and examined at bedside comfortable no complaints no n/v/f/c states she does not want to ever leave the hospital and likes it here. Objective Last 24 Hour Vital Signs Date Time Temp Pulse Resp B/P (MAP) Pulse Ox O2 Delivery O2 Flow Rate FiO2 04/05/19 10:01 103 151/80 04/05/19 09:59 97.1 04/05/19 09:30 151/80 04/05/19 09:30 103 151/80 04/05/19 09:00 Nasal Cannula 2.0 04/05/19 08:36 93 Nasal Cannula 2.0 28 04/05/19 08:00 2.0 04/05/19 08:00 97.1 103 20 151/80 (103) 94 04/05/19 08:00 105 04/05/19 04:00 103 04/05/19 04:00 98.6 100 20 135/70 (91) 96 04/05/19 04:00 2.0 04/05/19 00:00 97.8 100 18 138/90 (106) 94 04/05/19 00:00 109 04/05/19 00:00 2.0 04/04/19 22:41 94 Nasal Cannula 2.0 28 04/04/19 21:00 Nasal Cannula 2.0 04/04/19 20:00 2.0 04/04/19 20:00 98.2 107 18 124/70 (88) 94 04/04/19 20:00 110 04/04/19 18:19 Nasal Cannula 2.0 04/04/19 16:16 120 04/04/19 16:00 96.6 106 18 135/65 (88) 92 04/04/19 16:00 2.0 04/04/19 15:19 115 04/04/19 12:00 2.0 04/04/19 11:48 98.6 89 20 112/61 (78) 93 04/04/19 11:40 106 I&O Intake and Output 04/04/19 04/05/19 19:00 07:00 Intake Total 300 ml 160 ml Output Total 750 ml 2000 ml Balance -450 ml -1840 ml Intake Oral 300 ml IV Total 160 ml Output Urine Total 750 ml 2000 ml # Bowel Movements 2 Dressing: other Wound: other Drains: other Cardiovascular: RSR Respiratory: decreased breath sounds Abdomen: soft, present bowel sounds Extremities: no cyanosis, other Laboratory Tests Test 04/04/19 15:15 04/05/19 05:47 Stool Occult Blood Negative (NEGATIVE) White Blood Count 11.4 K/UL (4.8-10.8) H Red Blood Count 3.39 M/UL (4.20-5.40) L Hemoglobin 10.0 G/DL (12.0-16.0) L Hematocrit 31.1 % (37.0-47.0) L Mean Corpuscular Volume 92 FL (80-99) Mean Corpuscular Hemoglobin 29.4 PG (27.0-31.0) Mean Corpuscular Hemoglobin Concent 32.0 G/DL (32.0-36.0) Red Cell Distribution Width 14.5 % (11.6-14.8) Platelet Count 260 K/UL (150-450) Mean Platelet Volume 5.9 FL (6.5-10.1) L Neutrophils (%) (Auto) 61.0 % (45.0-75.0) Lymphocytes (%) (Auto) 24.4 % (20.0-45.0) Monocytes (%) (Auto) 9.0 % (1.0-10.0) Eosinophils (%) (Auto) 5.3 % (0.0-3.0) H Basophils (%) (Auto) 0.3 % (0.0-2.0) Sodium Level 139 MMOL/L (136-145) Potassium Level 3.6 MMOL/L (3.5-5.1) Chloride Level 101 MMOL/L (98-107) Carbon Dioxide Level 34 MMOL/L (21-32) H Anion Gap 4 mmol/L (5-15) L Blood Urea Nitrogen 16 mg/dL (7-18) Creatinine 0.5 MG/DL (0.55-1.30) L Estimat Glomerular Filtration Rate mL/min (>60) Glucose Level 111 MG/DL (74-106) H Calcium Level 9.1 MG/DL (8.5-10.1) Magnesium Level 2.0 MG/DL (1.8-2.4) Plan Problems: (1) Leukocytosis Assessment & Plan: leukocytosis fluctuating labs noted exam stable Abx as per ID cont IV abx trend labs (2) Decubitus skin ulcer Assessment & Plan: Pt presented on admission with moisture intertrigo R and L breasts. both breast folds are erythematous with denuded skin . DTPI noted to Upper R buttocks. Base of wound is maroon is indurated and elongated with surrounding non-blanching erythema. (L)1cm x (W)4cm. Both heels are soft pink and blanchable.No other skin concerns noted. stable d/c planning cont current care plan upon d/c to ensure improvement Tx.Plan: Apply Hydraguard Silicone cream to R and L breasts Daily. Apply Moisture Barrier Paste to Sacrum and R buttocks. Cover with Optifoam drsg. Change every 3 days and prn. Apply Cavilon Skin Barrier to both heels. Cover each heels with Optifoam drsg. Change every 7 days and prn. APM/MARCUS Mattress overlay. Reposition at least every 2hours or as tolerated. Off-load heels with pillow. (3) Limited mobility (4) Constipation (5) Protein-calorie malnutrition, mild Assessment & Plan: DAILY ESTIMATED NEEDS: Needs based on Wound, cardiac, pulmonary, 46kg 25-30 kcals/kg 5390-3835 total kcals 1.25-1.5 g protein/kg 58-69 g total protein 25-30 mL/kg 1126-2032 total fluid mLs NUTRITION DIAGNOSIS: * Increased kcal/prot needs R/T wound healing as evidenced by pt admitted w/ DTPI wound upper right buttocks. * Swallowing difficulty R/T dysphagia as evidenced by pt NPO at this time per CAFETERIA SERVER, MBSS pending. CURRENT DIET:NPO PO DIET RECOMMENDATIONS: LOW NA/ texture per CAFETERIA SERVER ADDITIONAL RECOMMENDATIONS: * Per SNF record, ht=57", ki=[id number]. * Wound healing: (w/ oral diet) add MVI x 1, Vit C 250mg QD : Edilberto 1pkt BID as tolerated * Consider checking A1C: h/o DM? * Monitor BGs closely, need for carb controlled diet Robert Orellana Apr 05, 2019 11:17
[2019-04-05 12:00] VITALS: BP 131/60
--- NOTE | 2019-04-05 13:55 | Pulmonology Progress Note ---
Assessment/Plan Problems: (1) UTI (urinary tract infection) Assessment & Plan: E coli (2) Sepsis with acute hypoxic respiratory failure (3) CRISTÓBAL (acute kidney injury) (4) COPD (chronic obstructive pulmonary disease) (5) Anemia (6) Anxiety (7) Hypercholesteremia (8) Hyponatremia (9) Acute and chronic respiratory failure (pcphx-ni-augkgpj) (10) Hypertension (11) Protein-calorie malnutrition, mild Assessment/Plan ASSESSMENT: The patient is a 78-year-old female with history of COPD, CHF with diastolic dysfunction, GERD, anemia, hypertension, hyperlipidemia, IBS, custodial resident with pulsating comfort measures only and DNR, presenting with altered mental status, hypertension, likely secondary to UTI with urosepsis and hypoxemia secondary to above. PROBLEM LIST: 1. Hypoxemia likely secondary to urosepsis. 2. E coli UTI and GNR sepsis 3. COPD. 4. Home O2 dependence. 5. CHF with diastolic dysfunction. 6. CRISTÓBAL with hyponatremia. 7. Anemia. 8. Recent admission for gastritis. 9. Hypertension, hyperlipidemia, GERD, IBS. 10. DNAR, PULSE comfort measures only. TREATMENT PLAN: 1. Off BiPAP 2. Titrate on FiO2 to keep saturations greater than 90%. 3. Abx per ID 4. Monitor volumes and renal function 5. 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 Monitor mental status. 7. DVT prophylaxis, heparin subcutaneous. 8. The patient is DNAR, and has a POLST: comfort measures only, we will need to discuss further goals of care. Subjective Allergies: Coded Allergies: [place] (Unverified Allergy, Mild, upset stomach, 02/10/19) TOMATO (Unverified Allergy, Mild, upset stomach, 02/10/19) TETRACYCLINE (Unverified Allergy, Unknown, 07/24/14) Subjective AFVSS, O2 needs stable,radha some PO, no cough, no SOB, no FC Objective Last 24 Hour Vital Signs Date Time Temp Pulse Resp B/P (MAP) Pulse Ox O2 Delivery O2 Flow Rate FiO2 04/05/19 12:00 2.0 04/05/19 12:00 97.2 87 18 131/60 (83) 95 04/05/19 12:00 84 04/05/19 10:01 103 151/80 04/05/19 09:59 97.1 04/05/19 09:30 151/80 04/05/19 09:30 103 151/80 04/05/19 09:00 Nasal Cannula 2.0 04/05/19 08:36 93 Nasal Cannula 2.0 28 04/05/19 08:00 2.0 04/05/19 08:00 97.1 103 20 151/80 (103) 94 04/05/19 08:00 105 04/05/19 04:00 103 04/05/19 04:00 98.6 100 20 135/70 (91) 96 04/05/19 04:00 2.0 04/05/19 00:00 97.8 100 18 138/90 (106) 94 04/05/19 00:00 109 04/05/19 00:00 2.0 04/04/19 22:41 94 Nasal Cannula 2.0 28 04/04/19 21:00 Nasal Cannula 2.0 04/04/19 20:00 2.0 04/04/19 20:00 98.2 107 18 124/70 (88) 94 04/04/19 20:00 110 04/04/19 18:19 Nasal Cannula 2.0 04/04/19 16:16 120 04/04/19 16:00 96.6 106 18 135/65 (88) 92 04/04/19 16:00 2.0 04/04/19 15:19 115 Intake and Output 04/04/19 04/05/19 18:59 06:59 Intake Total 300 ml 110 ml Output Total 750 ml 2000 ml Balance -450 ml -1890 ml Intake Oral 300 ml IV Total 110 ml Output Urine Total 750 ml 2000 ml # Bowel Movements 2 General Appearance: no acute distress, cachetic HEENT: normocephalic, atraumatic, anicteric, mucous membranes moist Respiratory/Chest: chest wall non-tender, lungs clear, normal breath sounds, no respiratory distress, no accessory muscle use Cardiovascular: normal peripheral pulses, normal rate, regular rhythm Abdomen: normal bowel sounds, soft, non tender, no organomegaly, non distended , no mass Extremities: no cyanosis, no clubbing, no edema Laboratory Tests 04/04/19 15:15: Stool Occult Blood Negative 04/05/19 05:47: White Blood Count 11.4H, Red Blood Count 3.39L, Hemoglobin 10.0L, Hematocrit 31.1L, Mean Corpuscular Volume 92, Mean Corpuscular Hemoglobin 29.4, Mean Corpuscular Hemoglobin Concent 32.0, Red Cell Distribution Width 14.5, Platelet Count 260, Mean Platelet Volume 5.9L, Neutrophils (%) (Auto) 61.0, Lymphocytes ( %) (Auto) 24.4, Monocytes (%) (Auto) 9.0, Eosinophils (%) (Auto) 5.3H, Basophils (%) (Auto) 0.3, Sodium Level 139, Potassium Level 3.6, Chloride Level 101, Carbon Dioxide Level 34H, Anion Gap 4L, Blood Urea Nitrogen 16, Creatinine 0.5L, Estimat Glomerular Filtration Rate , Glucose Level 111H, Calcium Level 9.1 , Magnesium Level 2.0 Current Medications Medications (Trade) Dose Ordered Sig/Wilner Route PRN Reason Start Time Stop Time Status Last Admin Dose Admin Acetaminophen (Tylenol) 650 mg Q4H PRN ORAL Mild - mod Pain/Temp > 100.5 04/03/19 18:15 05/02/19 18:14 04/05/19 01:22 Amlodipine Besylate (Norvasc) 10 mg DAILY ORAL 04/04/19 09:00 05/02/19 08:59 04/05/19 09:30 Ascorbic Acid (Vitamin C) 250 mg DAILY ORAL 04/04/19 09:00 05/01/19 08:59 04/05/19 09:30 Clonazepam (KlonoPIN) 0.5 mg BID ORAL 04/04/19 09:00 04/11/19 08:59 04/05/19 09:28 Dextrose 1,000 ml @ 50 mls/hr Q20H IV 04/04/19 13:06 05/04/19 13:05 04/05/19 02:28 Docusate Sodium (Colace) 100 mg THREE TIMES A DAY ORAL 04/04/19 09:00 05/04/19 08:59 04/05/19 09:27 Dronabinol (Marinol) 2.5 mg BID ORAL 04/04/19 09:00 05/04/19 08:59 04/05/19 09:29 Escitalopram Oxalate (Lexapro) 20 mg DAILY ORAL 04/04/19 09:00 04/30/19 14:02 04/05/19 09:29 Heparin Sodium (Porcine) (Heparin 5000 units/ml) 5,000 units EVERY 12 HOURS SUBQ 04/03/19 21:00 04/29/19 09:29 04/05/19 09:35 Hydralazine HCl (Apresoline) 10 mg Q4H PRN IV sbp>150 04/03/19 18:00 04/30/19 17:59 Lisinopril (Prinivil) 20 mg DAILY ORAL 04/04/19 09:00 05/02/19 08:59 04/05/19 09:30 Lorazepam (Ativan) 0.5 mg BIDPRN PRN ORAL For Anxiety 04/03/19 18:00 04/10/19 17:59 04/04/19 20:56 Meropenem 1 gm/ Sodium Chloride 110 ml @ 220 mls/hr Q12HR IVPB 04/03/19 21:00 04/09/19 23:59 04/05/19 09:27 Methocarbamol (Robaxin) 500 mg Q6H PRN ORAL muscle spasms 04/03/19 18:00 05/02/19 17:59 04/05/19 01:22 Metoprolol Tartrate (Lopressor) 12.5 mg Q12HR ORAL 04/05/19 09:00 05/05/19 08:59 04/05/19 10:01 Multivitamins (Multivitamins) 1 tab DAILY ORAL 04/04/19 09:00 05/01/19 08:59 04/05/19 09:29 Ondansetron HCl (Zofran) 4 mg Q4H PRN IVP Nausea & Vomiting 04/03/19 18:15 05/01/19 14:14 04/05/19 10:01 Oxycodone HCl (Roxicodone) 5 mg Q6H PRN ORAL Breakthrough Pain 04/03/19 21:30 04/09/19 21:29 04/05/19 02:31 Pantoprazole (Protonix) 40 mg EVERY 12 HOURS IVP 04/03/19 21:00 04/29/19 09:59 04/05/19 09:25 Polyethylene Glycol (Miralax) 17 gm DAILY PRN ORAL Constipation 04/04/19 08:00 05/04/19 07:59 04/04/19 11:29 Pregabalin (Lyrica) 75 mg BID ORAL 04/04/19 09:00 05/04/19 08:59 04/05/19 09:29 Tramadol HCl (Ultram) 50 mg Q6H PRN ORAL severe pain 04/03/19 19:30 04/09/19 13:29 04/04/19 20:57 Rafael Lerma MD Apr 05, 2019 13:55
--- NOTE | 2019-04-05 14:27 | Diagnostic Imaging Report ---
Indication: Dyspnea Comparison: 03/31/2019 A single view chest radiograph was obtained. Findings: Interstitial densities noted diffusely with prominent vascularity and heart size consistent with pulmonary edema. There is a confluent density that has developed at the left lung base likely in part due to presence of a pleural effusion. Atelectasis suspected at the left lung base versus pneumonia which appears new. Surgical clips in the right axilla again noted. IMPRESSION: Interstitial edema/CHF. Suspected left pleural effusion. Suspected left basilar pneumonia versus atelectasis
[2019-04-05 16:00] VITALS: BP 132/72
[2019-04-05 20:00] VITALS: BP 133/65
[2019-04-05] MEDS: LORazepam 0.5mg tab ORAL PRN (21:44)
[2019-04-05] MEDS: traMADol 50mg tab ORAL PRN (22:59)
[2019-04-06] VITALS: BP 122/61
[2019-04-06] MEDS: Methocarbamol 500mg tab ORAL PRN (02:05)
[2019-04-06] MEDS: oxyCODONE 5mg IR tab ORAL PRN ×2 (03:44→21:00)
[2019-04-06 04:00] VITALS: BP 117/67
--- NOTE | 2019-04-06 05:45 | Progress Note ---
DATE: 04/05/2019 SUBJECTIVE: The patient continues to be anxious, complaining of pain and anxiety. She has medication-seeking behavior. The patient is more alert. She is able to answer the questions and is more engaged. MENTAL STATUS EXAMINATION: Alert, oriented times self, place, and situation. Mood is less anxious. Affect is blunted, congruent with mood. Thought process is linear and goal oriented. Thought content, no suicidal or homicidal ideation. ASSESSMENT: 1. Anxiety disorder. 2. Depression. PLAN: 1. Continue the Lexapro. 2. Add Seroquel 50 mg at bedtime. 3. Ativan and Klonopin. 4. We will continue to follow and adjust the medications. Wan Stern M.D. DR: Cece JOB#: [id number] CC:
[2019-04-06 06:33] LABS: BASOPHILS % (AUTO) 0.4 % (0.0-2.0); EOSINOPHILS % (AUTO) 3.9 % (0.0-3.0); HEMATOCRIT 29.3 % (37.0-47.0); HEMOGLOBIN 9.2 G/DL (12.0-16.0); LYMPHOCYTES % (AUTO) 26.9 % (20.0-45.0); MEAN CORPUSCULAR VOLUME 92 FL (80-99); MONOCYTES % (AUTO) 8.4 % (1.0-10.0); NEUTROPHILS % (AUTO) 60.4 % (45.0-75.0); PLATELET COUNT 254 K/UL (150-450); RED CELL DISTRIBUTION WIDTH 14.3 % (11.6-14.8); WHITE BLOOD COUNT 11.1 K/UL (4.8-10.8)
[2019-04-06 07:12] LABS: ANION GAP 5 mmol/L (5-15); BLOOD UREA NITROGEN 15 mg/dL (7-18); CALCIUM 8.9 MG/DL (8.5-10.1); CARBON DIOXIDE 36 MMOL/L (21-32); CHLORIDE 100 MMOL/L (98-107); CREATININE 0.8 MG/DL (0.55-1.30); PHOSPHORUS 3.1 MG/DL (2.5-4.9); POTASSIUM 4.1 MMOL/L (3.5-5.1); SODIUM 141 MMOL/L (136-145)
[2019-04-06 08:00] VITALS: BP 129/58
[2019-04-06] MEDS: clonazePAM 0.5mg tab ORAL SCH ×2 (09:00→18:15)
[2019-04-06] MEDS: Lisinopril 20mg tab ORAL SCH (09:01)
[2019-04-06] MEDS: Ascorbic Acid 500mg tab ORAL SCH (09:01)
[2019-04-06] MEDS: Metoprolol Tartrate 12.5mg TAB ORAL SCH ×2 (09:02→20:46)
[2019-04-06] MEDS: Docusate 100mg cap ORAL SCH ×3 (09:02→18:16)
[2019-04-06] MEDS: Lyrica 75mg cap ORAL SCH ×2 (09:02→18:16)
[2019-04-06] MEDS: Dronabinol 2.5mg Cap ORAL SCH ×2 (09:02→18:16)
[2019-04-06] MEDS: Pantoprazole Inj IVP SCH ×2 (09:03→20:45)
[2019-04-06] MEDS: Meropenem 1 GM in NS 110 ML IVPB SCH ×2 (09:03→20:45)
[2019-04-06] MEDS: Heparin 5000 units/ml inj SUBQ SCH ×2 (09:06→20:47)
--- NOTE | 2019-04-06 10:14 | General Progress Note ---
Assessment/Plan Problem List: (1) Acute and chronic respiratory failure ([id number]) ICD Codes: J96.20 - Acute and chr resp failure, unsp w hypoxia or hypercapnia SNOMED: 72383083 (2) Respiratory failure with hypoxia ICD Codes: J96.91 - Respiratory failure, unspecified with hypoxia SNOMED: 56033521246667195 (3) Gram-negative bacteremia ICD Codes: R78.81 - Bacteremia SNOMED: 741146699259 (4) Severe sepsis ICD Codes: A41.9 - Sepsis, unspecified organism; R65.20 - Severe sepsis without septic shock SNOMED: 09658089 (5) CRISTÓBAL (acute kidney injury) ICD Codes: N17.9 - Acute kidney failure, unspecified SNOMED: 34297034, 7877655, 425201204 (6) UTI (urinary tract infection) ICD Codes: N39.0 - Urinary tract infection, site not specified SNOMED: 29404313, 19198272, 598999156 (7) Hyponatremia ICD Codes: E87.1 - Hypo-osmolality and hyponatremia SNOMED: 48511612 (8) COPD (chronic obstructive pulmonary disease) ICD Codes: J44.9 - Chronic obstructive pulmonary disease, unspecified SNOMED: 92269118 (9) Anemia ICD Codes: D64.9 - Anemia, unspecified SNOMED: 339100675 (10) Anxiety ICD Codes: F41.9 - Anxiety disorder, unspecified SNOMED: 91916813 (11) Hypertension ICD Codes: I10 - Essential (primary) hypertension SNOMED: 54856132 (12) History of breast cancer ICD Codes: Z85.3 - Personal history of malignant neoplasm of breast SNOMED: 855316747 (13) Diastolic CHF ICD Codes: I50.30 - Unspecified diastolic (congestive) heart failure SNOMED: 54841925, 001149588 (14) Hypercholesteremia ICD Codes: E78.00 - Pure hypercholesterolemia, unspecified SNOMED: 01238414 (15) Protein-calorie malnutrition, mild ICD Codes: E44.1 - Mild protein-calorie malnutrition SNOMED: 39225687 Status: doing well, stable Assessment/Plan: 78-year-old female with PMHx of COPD on 2L O2, HTN, diastolic CHF, chronic, osteoporosis, IBS-C, DDD, anemia and UTI sent from SNF for fever, lethargy, and congestion. #Severe sepsis/ septic shock secondary to pneumonia, ? aspiration ?HCAP vs. UTI , gram negative bacteremia, gram negative UTI. resolving. wbc trending up, cxr worsening congestion, left base infiltrate #Acute on chronic hypoxic respiratory failure- responding to non invasive positive pressure ventilation #CRISTÓBAL- prerenal- resolved, #diastolic CHF, possible acute exacerbation #Hyponatremia- hypovolemic, resolved #COPD on home O2, doubt exacerbation #HTN, HLD #Normocytic Anemia- stable #Anxiety/depression #Mild protein calorie malnutrition #Hypernatremia over the weekend- resolved #persistent nausea and abdominal pain ? constipation -KUB today -s/p IV hydration, stopped, d5ns @50 while poor po intake -Broad spectrum antibiotics: s/p Zosyn, Vancomycin and Azithromycin. Renal dose. Per ID switch to Amikacin once and meropenem. ID to follow up reg antibiotics, d/w Dr. Grady -stop bipap, titrate to keep SpO2 >90% -ID and pulmonary consults -Repeat Echocardiogram reviewed - Duo-Nebs Q6hr PRN SOB/Wheezing -One time IV lasix 40mg - continue home Singulair -Monitor renal function, continue shi, if cr without improvement, renal consult - resume ACEi - resume Amlodipine 10mg PO daily - Metoprolol 12.5 BID - resume stain and ASA while npo - resume lyrica 75mg PO BID - resume Lexapro 20mg Po daily, Resume Klonipin and ativan prn. Psychiatry consult with Dr. Stern who know her from SNF - resume Colace 100mg Po BID - resume simethecone 125mg PO TID -Marinol #Goals of care - DNR/DNI, POLST reviewed FENPPx Fluids: 1 L bolus, reassess Diet: soft chew, thin liquid LIQUIDS. DVTPPx: Heparin SBQ q12 GI PPX: PPI IV PT/OT: pending Code status: DNR/DNI, per polst Dispo: Back to SNF pending clinical course I spent 40 minutes on this encounter, 20 minutes spent on counselling and care coordination D/w RN, general surgery: Dr. Orellana, pulmonary: Dr. Lerma, ID: Dr. Grady. Subjective Date patient seen: Apr 06, 2019 Constitutional: Denies: no symptoms, chills, diaphoresis, fever, malaise, weakness, other HEENT: Denies: no symptoms, eye pain, blurred vision, tearing, double vision, ear pain, ear discharge, nose pain, nose congestion, throat pain, throat swelling, mouth pain, mouth swelling, other Cardiovascular: Denies: no symptoms, chest pain, edema, irregular heart rate, lightheadedness, palpitations, syncope, other Respiratory: Denies: no symptoms, cough, orthopnea, shortness of breath, SOB with excertion, SOB at rest, sputum, stridor, wheezing, other Gastrointestinal/Abdominal: Reports: abdominal pain, nausea Genitourinary: Denies: no symptoms, burning, discharge, frequency, flank pain, hematuria, incontinence, pain, urgency, other Neurologic/Psychiatric: Denies: no symptoms, anxiety, depressed, emotional problems, headache, numbness, paresthesia, pre-existing deficit, seizure, tingling, tremors, weakness, other Endocrine: Denies: no symptoms, excessive sweating, flushing, intolerance to cold, intolerance to heat, increased hunger, increased thirst, increased urine, unexplained weight gain, unexplained weight loss, other Hematologic/Lymphatic: Denies: no symptoms, anemia, easy bleeding, easy bruising, other Allergies: Coded Allergies: Grady (Unverified Allergy, Mild, upset stomach, 02/10/19) TOMATO (Unverified Allergy, Mild, upset stomach, 02/10/19) TETRACYCLINE (Unverified Allergy, Unknown, 07/24/14) Subjective Alert and awake. c/o abdominal pain and nausea. doesn't want to eat today. Diet advanced. barium not done. wbc trending up. CXR with worsening vascular congestion and possible left base consolidation and left pleural effusion. last BM 04/04 Objective Last 24 Hour Vital Signs Date Time Temp Pulse Resp B/P (MAP) Pulse Ox O2 Delivery O2 Flow Rate FiO2 04/06/19 09:02 86 129/58 04/06/19 09:01 129/58 04/06/19 08:59 86 129/58 04/06/19 08:00 96.5 86 20 129/58 (81) 94 04/06/19 04:13 96.8 04/06/19 04:00 2.0 04/06/19 04:00 97.0 100 20 117/67 (84) 94 04/06/19 04:00 103 04/06/19 00:00 2.0 04/06/19 00:00 96.8 109 20 122/61 (81) 94 04/06/19 00:00 113 04/05/19 21:44 99 133/65 04/05/19 21:00 Nasal Cannula 2.0 04/05/19 20:00 2.0 04/05/19 20:00 98.2 99 18 133/65 (87) 95 04/05/19 20:00 104 04/05/19 19:06 91 Nasal Cannula 2.0 28 04/05/19 18:52 97.2 04/05/19 16:00 96.3 95 19 132/72 (92) 95 04/05/19 16:00 103 04/05/19 16:00 2.0 04/05/19 12:00 2.0 04/05/19 12:00 97.2 87 18 131/60 (83) 95 04/05/19 12:00 84 Intake and Output 04/05/19 04/06/19 19:00 07:00 Intake Total 900 ml 120 ml Output Total 2001 ml 2000 ml Balance -1101 ml -1880 ml Intake Oral 240 ml 120 ml IV Total 660 ml Output Urine Total 2000 ml 2000 ml Stool Total 1 ml # Bowel Movements 1 Laboratory Tests 04/06/19 05:50: White Blood Count 11.1H, Red Blood Count 3.20L, Hemoglobin 9.2L, Hematocrit 29.3L, Mean Corpuscular Volume 92, Mean Corpuscular Hemoglobin 28.9, Mean Corpuscular Hemoglobin Concent 31.5L, Red Cell Distribution Width 14.3, Platelet Count 254, Mean Platelet Volume 6.6, Neutrophils (%) (Auto) 60.4, Lymphocytes (%) (Auto) 26.9, Monocytes (%) (Auto) 8.4, Eosinophils (%) (Auto) 3.9H, Basophils (%) (Auto) 0.4, Sodium Level 141, Potassium Level 4.1, Chloride Level 100, Carbon Dioxide Level 36H, Anion Gap 5, Blood Urea Nitrogen 15, Creatinine 0.8#, Estimat Glomerular Filtration Rate , Glucose Level 113H, Calcium Level 8.9, Phosphorus Level 3.1, Magnesium Level 2.0 04/06/19 06:20: Stool Occult Blood [Pending] Height (Feet): 5 Height (Inches): 4.00 Weight (Pounds): 156 Objective General Appearance: sleeping, easily arousable, awake Lines, tubes and drains: peripheral HEENT: normocephalic, atraumatic, PERRL, EOMI, no JVD, DRY MM Neck: non-tender, normal alignment, supple Respiratory/Chest: rales and rhonchi Cardiovascular/Chest: tachycardic, regular rhythm, no m/r/g Abdomen: normal bowel sounds, soft, obese, non tender Extremities: normal range of motion, non-tender, normal inspection, moves all ext, no edema Skin Exam: poor turger, refer to photos , stage 2 sacral decub Neurologic: lethargic, unable to assess, moves all four limbs Musculoskeletal: normal muscle bulk, no effusion, atrophy Philipp Moreau M.D. Apr 06, 2019 10:14
--- NOTE | 2019-04-06 11:44 | Cardiac Electrophysiology PN ---
Subjective Subjective [id number] Objective Last 24 Hour Vital Signs Date Time Temp Pulse Resp B/P (MAP) Pulse Ox O2 Delivery O2 Flow Rate FiO2 04/06/19 09:02 86 129/58 04/06/19 09:01 129/58 04/06/19 08:59 86 129/58 04/06/19 08:00 96.5 86 20 129/58 (81) 94 04/06/19 04:13 96.8 04/06/19 04:00 2.0 04/06/19 04:00 97.0 100 20 117/67 (84) 94 04/06/19 04:00 103 04/06/19 00:00 2.0 04/06/19 00:00 96.8 109 20 122/61 (81) 94 04/06/19 00:00 113 04/05/19 21:44 99 133/65 04/05/19 21:00 Nasal Cannula 2.0 04/05/19 20:00 2.0 04/05/19 20:00 98.2 99 18 133/65 (87) 95 04/05/19 20:00 104 04/05/19 19:06 91 Nasal Cannula 2.0 28 04/05/19 18:52 97.2 04/05/19 16:00 96.3 95 19 132/72 (92) 95 04/05/19 16:00 103 04/05/19 16:00 2.0 04/05/19 12:00 2.0 04/05/19 12:00 97.2 87 18 131/60 (83) 95 04/05/19 12:00 84 Intake and Output 04/05/19 04/06/19 19:00 07:00 Intake Total 900 ml 120 ml Output Total 2001 ml 2000 ml Balance -1101 ml -1880 ml Intake Oral 240 ml 120 ml IV Total 660 ml Output Urine Total 2000 ml 2000 ml Stool Total 1 ml # Bowel Movements 1 Laboratory Tests Test 04/06/19 05:50 04/06/19 06:20 White Blood Count 11.1 K/UL (4.8-10.8) H Red Blood Count 3.20 M/UL (4.20-5.40) L Hemoglobin 9.2 G/DL (12.0-16.0) L Hematocrit 29.3 % (37.0-47.0) L Mean Corpuscular Volume 92 FL (80-99) Mean Corpuscular Hemoglobin 28.9 PG (27.0-31.0) Mean Corpuscular Hemoglobin Concent 31.5 G/DL (32.0-36.0) L Red Cell Distribution Width 14.3 % (11.6-14.8) Platelet Count 254 K/UL (150-450) Mean Platelet Volume 6.6 FL (6.5-10.1) Neutrophils (%) (Auto) 60.4 % (45.0-75.0) Lymphocytes (%) (Auto) 26.9 % (20.0-45.0) Monocytes (%) (Auto) 8.4 % (1.0-10.0) Eosinophils (%) (Auto) 3.9 % (0.0-3.0) H Basophils (%) (Auto) 0.4 % (0.0-2.0) Sodium Level 141 MMOL/L (136-145) Potassium Level 4.1 MMOL/L (3.5-5.1) Chloride Level 100 MMOL/L (98-107) Carbon Dioxide Level 36 MMOL/L (21-32) H Anion Gap 5 mmol/L (5-15) Blood Urea Nitrogen 15 mg/dL (7-18) Creatinine 0.8 MG/DL (0.55-1.30) # Estimat Glomerular Filtration Rate mL/min (>60) Glucose Level 113 MG/DL (74-106) H Calcium Level 8.9 MG/DL (8.5-10.1) Phosphorus Level 3.1 MG/DL (2.5-4.9) Magnesium Level 2.0 MG/DL (1.8-2.4) Stool Occult Blood Pending Lyle Allen MD Apr 06, 2019 11:44
[2019-04-06 12:00] VITALS: BP 100/86
[2019-04-06] MEDS ORDERED: Omnipaque-300 100ml vial INJ PRN (12:00)
--- NOTE | 2019-04-06 12:06 | GI Progress Note ---
Assessment/Plan Problems: (1) GERD (gastroesophageal reflux disease) ICD Codes: K21.9 - Gastro-esophageal reflux disease without esophagitis SNOMED: 499423222 (2) Protein-calorie malnutrition, mild ICD Codes: E44.1 - Mild protein-calorie malnutrition SNOMED: 43440373 (3) Anemia ICD Codes: D64.9 - Anemia, unspecified SNOMED: 401825365 Status: unchanged Status Narrative Discussed with Dr. Arshad. Assessment/Plan History of endoscopy and colonoscopy on February 11, 2019 noted with gastritis and one colonic polyp. No plan for any GI procedures at this time given recent history of procedure. will obtain CT given persistent abdominal pain zofran prn, compazine for persistent nausea. Reglan has drug to drug interaction. anemia work up reviewed Fecal occult blood stool to rule out any GI bleed, negative PPI daily Monitor H&H, PRN transfusions Antibiotics per infectious diseases passed swallow eval for puree diet but poor po intake good response to marinol calorie count wound care The patient was seen and examined at bedside and all new and available data was reviewed in the patients chart. I agree with the above findings, impression and plan. (Patient seen earlier today. Signature stamp does not reflect patient encounter time.). - Kapil Arshad MD Subjective Subjective still has complaint of random episodes of nausea and abdominal pain had BM this morning Objective Last 24 Hour Vital Signs Date Time Temp Pulse Resp B/P (MAP) Pulse Ox O2 Delivery O2 Flow Rate FiO2 04/06/19 09:02 86 129/58 04/06/19 09:01 129/58 04/06/19 08:59 86 129/58 04/06/19 08:00 96.5 86 20 129/58 (81) 94 04/06/19 04:13 96.8 04/06/19 04:00 2.0 04/06/19 04:00 97.0 100 20 117/67 (84) 94 04/06/19 04:00 103 04/06/19 00:00 2.0 04/06/19 00:00 96.8 109 20 122/61 (81) 94 04/06/19 00:00 113 04/05/19 21:44 99 133/65 04/05/19 21:00 Nasal Cannula 2.0 04/05/19 20:00 2.0 04/05/19 20:00 98.2 99 18 133/65 (87) 95 04/05/19 20:00 104 04/05/19 19:06 91 Nasal Cannula 2.0 28 04/05/19 18:52 97.2 04/05/19 16:00 96.3 95 19 132/72 (92) 95 04/05/19 16:00 103 04/05/19 16:00 2.0 Intake and Output 04/05/19 04/06/19 19:00 07:00 Intake Total 900 ml 120 ml Output Total 2001 ml 2000 ml Balance -1101 ml -1880 ml Intake Oral 240 ml 120 ml IV Total 660 ml Output Urine Total 2000 ml 2000 ml Stool Total 1 ml # Bowel Movements 1 Laboratory Tests Test 04/06/19 05:50 04/06/19 06:20 White Blood Count 11.1 K/UL (4.8-10.8) H Red Blood Count 3.20 M/UL (4.20-5.40) L Hemoglobin 9.2 G/DL (12.0-16.0) L Hematocrit 29.3 % (37.0-47.0) L Mean Corpuscular Volume 92 FL (80-99) Mean Corpuscular Hemoglobin 28.9 PG (27.0-31.0) Mean Corpuscular Hemoglobin Concent 31.5 G/DL (32.0-36.0) L Red Cell Distribution Width 14.3 % (11.6-14.8) Platelet Count 254 K/UL (150-450) Mean Platelet Volume 6.6 FL (6.5-10.1) Neutrophils (%) (Auto) 60.4 % (45.0-75.0) Lymphocytes (%) (Auto) 26.9 % (20.0-45.0) Monocytes (%) (Auto) 8.4 % (1.0-10.0) Eosinophils (%) (Auto) 3.9 % (0.0-3.0) H Basophils (%) (Auto) 0.4 % (0.0-2.0) Sodium Level 141 MMOL/L (136-145) Potassium Level 4.1 MMOL/L (3.5-5.1) Chloride Level 100 MMOL/L (98-107) Carbon Dioxide Level 36 MMOL/L (21-32) H Anion Gap 5 mmol/L (5-15) Blood Urea Nitrogen 15 mg/dL (7-18) Creatinine 0.8 MG/DL (0.55-1.30) # Estimat Glomerular Filtration Rate mL/min (>60) Glucose Level 113 MG/DL (74-106) H Calcium Level 8.9 MG/DL (8.5-10.1) Phosphorus Level 3.1 MG/DL (2.5-4.9) Magnesium Level 2.0 MG/DL (1.8-2.4) Stool Occult Blood Pending Height (Feet): 5 Height (Inches): 4.00 Weight (Pounds): 156 General Appearance: WD/WN, no apparent distress, alert Cardiovascular: normal rate Respiratory/Chest: normal breath sounds, no respiratory distress Abdominal Exam: normal bowel sounds, non tender, soft Extremities: non-tender Sky Wood NP Apr 06, 2019 12:06
--- NOTE | 2019-04-06 12:59 | Infectious Diseases Prog Note ---
Assessment/Plan Assessment/Plan ASSESSMENT AND PLAN: 1. e.coli uti/pyelonephritis with bacteremia, sepsis, leukocytosis, fevers, ? HCAP/aspiration pna vs atx - meropenem - day # 7 - clinically improved - surveillance blood cultures negative, leukocytosis improved overall, fevers resolved - monitor labs, check sputum culture, check labs 2. Acute kidney injury with elevated creatinine. 3. IBS 4. Congestive heart failure and edema - sob better 5. Hypertension. 6. Hyperlipidemia. 7. Blood pressure treatment per primary care team for hypertension. 8. Anemia. 9. Chronic obstructive pulmonary disease. 10. Gastroesophageal reflux disease. 11. Chronic obstructive pulmonary disease and congestive heart failure treatment per primary care team. 12. IBS. 13. Encephalopathy. 14. Gastritis. 15. Anxiety. 16. Hypercholesterolemia and dyslipidemia. 17. Breast cancer. 18. Malnutrition history. 19. Allergies to oranges, tetracycline, and tomatoes. 20. Social history is negative. 21. Family history is noncontributory. 22. MAR is noted. 23. Case was discussed with RN. 24. Skin care protocol. 25. Continue treatment per primary consultants and [place] care. 26. Orders were noted and entered. 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 Subjective Constitutional: Reports: fatigue, other - alert ; Denies: fever HEENT: Reports: congestion - mild Respiratory: Denies: shortness of breath Cardiovascular: Denies: chest pain Gastrointestinal/Abdominal: Denies: nausea, vomiting, diarrhea Neurologic: Denies: headache Psychiatric: Denies: depression Skin: Denies: rash Hematologic: Denies: bleeding Musculoskeletal: Denies: pain Allergies: Coded Allergies: [place] (Unverified Allergy, Mild, upset stomach, 02/10/19) TOMATO (Unverified Allergy, Mild, upset stomach, 02/10/19) TETRACYCLINE (Unverified Allergy, Unknown, 07/24/14) Objective Vital Signs Last 24 Hour Vital Signs Date Time Temp Pulse Resp B/P (MAP) Pulse Ox O2 Delivery O2 Flow Rate FiO2 04/06/19 09:02 86 129/58 04/06/19 09:01 129/58 04/06/19 08:59 86 129/58 04/06/19 08:00 96.5 86 20 129/58 (81) 94 04/06/19 04:13 96.8 04/06/19 04:00 2.0 04/06/19 04:00 97.0 100 20 117/67 (84) 94 04/06/19 04:00 103 04/06/19 00:00 2.0 04/06/19 00:00 96.8 109 20 122/61 (81) 94 04/06/19 00:00 113 04/05/19 21:44 99 133/65 04/05/19 21:00 Nasal Cannula 2.0 04/05/19 20:00 2.0 04/05/19 20:00 98.2 99 18 133/65 (87) 95 04/05/19 20:00 104 04/05/19 19:06 91 Nasal Cannula 2.0 28 04/05/19 18:52 97.2 04/05/19 16:00 96.3 95 19 132/72 (92) 95 04/05/19 16:00 103 04/05/19 16:00 2.0 Height (Feet): 5 Height (Inches): 4.00 Weight (Pounds): 156 General Appearance: no acute distress HEENT: normocephalic, atraumatic, anicteric, mucous membranes moist Respiratory/Chest: crackles/rales, rhonchi - bilaterally Cardiovascular: normal rate, regular rhythm, no gallop/murmur, no JVD Abdomen: normal bowel sounds, soft, non tender, no organomegaly, non distended Genitourinary: other Extremities: no cyanosis Skin: no rash 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 Findings: Increasing airspace disease in the right upper lobe noted as well as at both lung bases. The heart is mildly enlarged. The interstitium and pulmonary vascularity also appear prominent. IMPRESSION: Worsening airspace disease probably on the basis of congestive heart failure. Correlate clinically 04/05/19 - chest x-ray - Comparison: 03/31/2019 A single view chest radiograph was obtained. Findings: Interstitial densities noted diffusely with prominent vascularity and heart size consistent with pulmonary edema. There is a confluent density that has developed at the left lung base likely in part due to presence of a pleural effusion. Atelectasis suspected at the left lung base versus pneumonia which appears new. Surgical clips in the right axilla again noted. IMPRESSION: Interstitial edema/CHF. Suspected left pleural effusion. Suspected left basilar pneumonia versus atelectasis Microbiology Date/Time Source Procedure Growth Status 04/01/19 03:45 Blood Blood Culture - Final NO GROWTH AFTER 5 DAYS Complete 03/30/19 06:00 Nasal Aspirate MRSA Culture - Final Staphylococcus Aureus - Mrsa Complete 03/30/19 04:50 Urine,Clean Catch Urine Culture - Final Escherichia Coli - Esbl Complete 03/30/19 06:00 Rectum - Final NO CARBAPENEM-RESISTANT ENTEROBACTERI... Complete Laboratory Tests Test 04/06/19 05:50 04/06/19 06:20 04/06/19 12:25 White Blood Count 11.1 K/UL (4.8-10.8) H Red Blood Count 3.20 M/UL (4.20-5.40) L Hemoglobin 9.2 G/DL (12.0-16.0) L Hematocrit 29.3 % (37.0-47.0) L Mean Corpuscular Volume 92 FL (80-99) Mean Corpuscular Hemoglobin 28.9 PG (27.0-31.0) Mean Corpuscular Hemoglobin Concent 31.5 G/DL (32.0-36.0) L Red Cell Distribution Width 14.3 % (11.6-14.8) Platelet Count 254 K/UL (150-450) Mean Platelet Volume 6.6 FL (6.5-10.1) Neutrophils (%) (Auto) 60.4 % (45.0-75.0) Lymphocytes (%) (Auto) 26.9 % (20.0-45.0) Monocytes (%) (Auto) 8.4 % (1.0-10.0) Eosinophils (%) (Auto) 3.9 % (0.0-3.0) H Basophils (%) (Auto) 0.4 % (0.0-2.0) Sodium Level 141 MMOL/L (136-145) Potassium Level 4.1 MMOL/L (3.5-5.1) Chloride Level 100 MMOL/L (98-107) Carbon Dioxide Level 36 MMOL/L (21-32) H Anion Gap 5 mmol/L (5-15) Blood Urea Nitrogen 15 mg/dL (7-18) Creatinine 0.8 MG/DL (0.55-1.30) # Estimat Glomerular Filtration Rate mL/min (>60) Glucose Level 113 MG/DL (74-106) H Calcium Level 8.9 MG/DL (8.5-10.1) Phosphorus Level 3.1 MG/DL (2.5-4.9) Magnesium Level 2.0 MG/DL (1.8-2.4) Stool Occult Blood Negative (NEGATIVE) Troponin I Pending Current Medications Medications (Trade) Dose Ordered Sig/Wilner Route PRN Reason Start Time Stop Time Status Last Admin Dose Admin Acetaminophen (Tylenol) 650 mg Q4H PRN ORAL Mild - mod Pain/Temp > 100.5 04/03/19 18:15 05/02/19 18:14 04/06/19 03:43 Amlodipine Besylate (Norvasc) 10 mg DAILY ORAL 04/04/19 09:00 05/02/19 08:59 04/06/19 08:59 Ascorbic Acid (Vitamin C) 250 mg DAILY ORAL 04/04/19 09:00 05/01/19 08:59 04/06/19 09:01 Barium Sulfate (Readi-Cat 2) 450 ml NOW PRN ORAL Radiology Procedure 04/06/19 12:00 04/08/19 11:53 Clonazepam (KlonoPIN) 0.5 mg BID ORAL 04/04/19 09:00 04/11/19 08:59 04/06/19 09:00 Dextrose 1,000 ml @ 50 mls/hr Q20H IV 04/04/19 13:06 05/04/19 13:05 04/06/19 12:47 Docusate Sodium (Colace) 100 mg THREE TIMES A DAY ORAL 04/04/19 09:00 05/04/19 08:59 04/06/19 12:43 Dronabinol (Marinol) 2.5 mg BID ORAL 04/04/19 09:00 05/04/19 08:59 04/06/19 09:02 Escitalopram Oxalate (Lexapro) 20 mg DAILY ORAL 04/04/19 09:00 04/30/19 14:02 04/06/19 09:01 Furosemide (Lasix) 40 mg DAILY IV 04/07/19 09:00 05/07/19 08:59 Heparin Sodium (Porcine) (Heparin 5000 units/ml) 5,000 units EVERY 12 HOURS SUBQ 04/03/19 21:00 04/29/19 09:29 04/06/19 09:06 Hydralazine HCl (Apresoline) 10 mg Q4H PRN IV sbp>150 04/03/19 18:00 04/30/19 17:59 Iohexol (OMNIPAQUE-300 100ml) 100 ml NOW PRN INJ Radiology Procedure 04/06/19 12:00 04/08/19 11:53 Lisinopril (Prinivil) 20 mg DAILY ORAL 04/04/19 09:00 05/02/19 08:59 04/06/19 09:01 Lorazepam (Ativan) 0.5 mg BIDPRN PRN ORAL For Anxiety 04/03/19 18:00 04/10/19 17:59 04/05/19 21:44 Meropenem 1 gm/ Sodium Chloride 110 ml @ 220 mls/hr Q12HR IVPB 04/03/19 21:00 04/09/19 23:59 04/06/19 09:03 Methocarbamol (Robaxin) 500 mg Q6H PRN ORAL muscle spasms 04/03/19 18:00 05/02/19 17:59 04/06/19 02:05 Metoprolol Tartrate (Lopressor) 12.5 mg Q12HR ORAL 04/05/19 09:00 05/05/19 08:59 04/06/19 09:02 Multivitamins (Multivitamins) 1 tab DAILY ORAL 04/04/19 09:00 05/01/19 08:59 04/06/19 09:02 Ondansetron HCl (Zofran) 4 mg Q4H PRN IVP Nausea & Vomiting 04/03/19 18:15 05/01/19 14:14 04/05/19 21:48 Oxycodone HCl (Roxicodone) 5 mg Q6H PRN ORAL Breakthrough Pain 04/03/19 21:30 04/09/19 21:29 04/06/19 03:44 Pantoprazole (Protonix) 40 mg EVERY 12 HOURS IVP 04/03/19 21:00 04/29/19 09:59 04/06/19 09:03 Polyethylene Glycol (Miralax) 17 gm DAILY PRN ORAL Constipation 04/04/19 08:00 05/04/19 07:59 04/04/19 11:29 Pregabalin (Lyrica) 75 mg BID ORAL 04/04/19 09:00 05/04/19 08:59 04/06/19 09:02 Prochlorperazine (Compazine) 10 mg Q6H PRN IVP Nausea & Vomiting 04/06/19 12:15 05/06/19 12:14 Quetiapine Fumarate (SEROqueL) 50 mg QHS ORAL 04/06/19 21:00 05/06/19 20:59 Tramadol HCl (Ultram) 50 mg Q6H PRN ORAL severe pain 04/03/19 19:30 04/09/19 13:29 04/05/19 22:59 Nyasia Grover MD Apr 06, 2019 12:59
[2019-04-06] MEDS: traMADol 50mg tab ORAL PRN (15:23)
--- NOTE | 2019-04-06 15:56 | Pulmonology Progress Note ---
Assessment/Plan Problems: (1) UTI (urinary tract infection) Assessment & Plan: E coli (2) Sepsis with acute hypoxic respiratory failure (3) CRISTÓBAL (acute kidney injury) (4) COPD (chronic obstructive pulmonary disease) (5) Anemia (6) Anxiety (7) Hypercholesteremia (8) Hyponatremia (9) Acute and chronic respiratory failure ([id number]) (10) Hypertension (11) Protein-calorie malnutrition, mild Assessment/Plan ASSESSMENT: The patient is a 78-year-old female with history of COPD, CHF with diastolic dysfunction, GERD, anemia, hypertension, hyperlipidemia, IBS, senior living resident with pulsating comfort measures only and DNR, presenting with altered mental status, hypertension, likely secondary to UTI with urosepsis and hypoxemia secondary to above. PROBLEM LIST: 1. Hypoxemia likely secondary to urosepsis. 2. E coli UTI and GNR sepsis 3. COPD. 4. Home O2 dependence. 5. CHF with diastolic dysfunction. 6. CRISTÓBAL with hyponatremia. 7. Anemia. 8. Recent admission for gastritis. 9. Hypertension, hyperlipidemia, GERD, IBS. 10. DNAR, PULSE comfort measures only. TREATMENT PLAN: 1. Off BiPAP 2. Titrate on FiO2 to keep saturations greater than 90%. 3. Abx per ID 4. Monitor volumes and renal function 5. Diet per CHIEF DEPUTY with ASPIRATION precautions 6. Monitor mental status. 7. DVT prophylaxis, heparin subcutaneous. 8. The patient is DNAR, and has a POLST: comfort measures only, we will need to discuss further goals of care. Subjective Allergies: Coded Allergies: [place] (Unverified Allergy, Mild, upset stomach, 02/10/19) TOMATO (Unverified Allergy, Mild, upset stomach, 02/10/19) TETRACYCLINE (Unverified Allergy, Unknown, 07/24/14) Subjective AFVSS, O2 needs stable,radha some PO, no cough, no SOB, no FC Objective Last 24 Hour Vital Signs Date Time Temp Pulse Resp B/P (MAP) Pulse Ox O2 Delivery O2 Flow Rate FiO2 04/06/19 12:00 99 04/06/19 12:00 97.6 99 18 100/86 (91) 92 04/06/19 09:02 86 129/58 04/06/19 09:01 129/58 04/06/19 09:00 Nasal Cannula 2.0 04/06/19 09:00 Nasal Cannula 2.0 04/06/19 08:59 86 129/58 04/06/19 08:00 96.5 86 20 129/58 (81) 94 04/06/19 08:00 90 04/06/19 04:13 96.8 04/06/19 04:00 2.0 04/06/19 04:00 97.0 100 20 117/67 (84) 94 04/06/19 04:00 103 04/06/19 00:00 2.0 04/06/19 00:00 96.8 109 20 122/61 (81) 94 04/06/19 00:00 113 04/05/19 21:44 99 133/65 04/05/19 21:00 Nasal Cannula 2.0 04/05/19 20:00 2.0 04/05/19 20:00 98.2 99 18 133/65 (87) 95 04/05/19 20:00 104 04/05/19 19:06 91 Nasal Cannula 2.0 28 04/05/19 18:52 97.2 04/05/19 16:00 96.3 95 19 132/72 (92) 95 04/05/19 16:00 103 04/05/19 16:00 2.0 Intake and Output 04/05/19 04/06/19 18:59 06:59 Intake Total 950 ml Output Total 2001 ml 2000 ml Balance -1051 ml -2000 ml Intake Oral 240 ml IV Total 710 ml Output Urine Total 2000 ml 2000 ml Stool Total 1 ml # Bowel Movements 1 General Appearance: no acute distress, cachetic HEENT: normocephalic, atraumatic, anicteric, mucous membranes moist Respiratory/Chest: crackles/rales, rhonchi Cardiovascular: normal peripheral pulses, normal rate, regular rhythm Abdomen: normal bowel sounds, soft, non tender, no organomegaly, non distended Extremities: no cyanosis, no clubbing, no edema Laboratory Tests 04/06/19 05:50: White Blood Count 11.1H, Red Blood Count 3.20L, Hemoglobin 9.2L, Hematocrit 29.3L, Mean Corpuscular Volume 92, Mean Corpuscular Hemoglobin 28.9, Mean Corpuscular Hemoglobin Concent 31.5L, Red Cell Distribution Width 14.3, Platelet Count 254, Mean Platelet Volume 6.6, Neutrophils (%) (Auto) 60.4, Lymphocytes (%) (Auto) 26.9, Monocytes (%) (Auto) 8.4, Eosinophils (%) (Auto) 3.9H, Basophils (%) (Auto) 0.4, Sodium Level 141, Potassium Level 4.1, Chloride Level 100, Carbon Dioxide Level 36H, Anion Gap 5, Blood Urea Nitrogen 15, Creatinine 0.8#, Estimat Glomerular Filtration Rate , Glucose Level 113H, Calcium Level 8.9, Phosphorus Level 3.1, Magnesium Level 2.0 04/06/19 06:20: Stool Occult Blood Negative 04/06/19 12:25: Troponin I 0.000 Current Medications Medications (Trade) Dose Ordered Sig/Wilner Route PRN Reason Start Time Stop Time Status Last Admin Dose Admin Acetaminophen (Tylenol) 650 mg Q4H PRN ORAL Mild - mod Pain/Temp > 100.5 04/03/19 18:15 05/02/19 18:14 04/06/19 15:27 Amlodipine Besylate (Norvasc) 10 mg DAILY ORAL 04/04/19 09:00 05/02/19 08:59 04/06/19 08:59 Ascorbic Acid (Vitamin C) 250 mg DAILY ORAL 04/04/19 09:00 05/01/19 08:59 04/06/19 09:01 Barium Sulfate (Readi-Cat 2) 450 ml NOW PRN ORAL Radiology Procedure 04/06/19 12:00 04/08/19 11:53 Clonazepam (KlonoPIN) 0.5 mg BID ORAL 04/04/19 09:00 04/11/19 08:59 04/06/19 09:00 Dextrose 1,000 ml @ 50 mls/hr Q20H IV 04/04/19 13:06 05/04/19 13:05 04/06/19 12:47 Docusate Sodium (Colace) 100 mg THREE TIMES A DAY ORAL 04/04/19 09:00 05/04/19 08:59 04/06/19 12:43 Dronabinol (Marinol) 2.5 mg BID ORAL 04/04/19 09:00 05/04/19 08:59 04/06/19 09:02 Escitalopram Oxalate (Lexapro) 20 mg DAILY ORAL 04/04/19 09:00 04/30/19 14:02 04/06/19 09:01 Furosemide (Lasix) 40 mg DAILY IV 04/07/19 09:00 05/07/19 08:59 Heparin Sodium (Porcine) (Heparin 5000 units/ml) 5,000 units EVERY 12 HOURS SUBQ 04/03/19 21:00 04/29/19 09:29 04/06/19 09:06 Hydralazine HCl (Apresoline) 10 mg Q4H PRN IV sbp>150 04/03/19 18:00 04/30/19 17:59 Iohexol (OMNIPAQUE-300 100ml) 100 ml NOW PRN INJ Radiology Procedure 04/06/19 12:00 04/08/19 11:53 Lisinopril (Prinivil) 20 mg DAILY ORAL 04/04/19 09:00 05/02/19 08:59 04/06/19 09:01 Lorazepam (Ativan) 0.5 mg BIDPRN PRN ORAL For Anxiety 04/03/19 18:00 04/10/19 17:59 04/05/19 21:44 Meropenem 1 gm/ Sodium Chloride 110 ml @ 220 mls/hr Q12HR IVPB 04/03/19 21:00 04/09/19 23:59 04/06/19 09:03 Methocarbamol (Robaxin) 500 mg Q6H PRN ORAL muscle spasms 04/03/19 18:00 05/02/19 17:59 04/06/19 02:05 Metoprolol Tartrate (Lopressor) 12.5 mg Q12HR ORAL 04/05/19 09:00 05/05/19 08:59 04/06/19 09:02 Multivitamins (Multivitamins) 1 tab DAILY ORAL 04/04/19 09:00 05/01/19 08:59 04/06/19 09:02 Ondansetron HCl (Zofran) 4 mg Q4H PRN IVP Nausea & Vomiting 04/03/19 18:15 05/01/19 14:14 04/05/19 21:48 Oxycodone HCl (Roxicodone) 5 mg Q6H PRN ORAL Breakthrough Pain 04/03/19 21:30 04/09/19 21:29 04/06/19 03:44 Pantoprazole (Protonix) 40 mg EVERY 12 HOURS IVP 04/03/19 21:00 04/29/19 09:59 04/06/19 09:03 Polyethylene Glycol (Miralax) 17 gm DAILY PRN ORAL Constipation 04/04/19 08:00 05/04/19 07:59 04/04/19 11:29 Pregabalin (Lyrica) 75 mg BID ORAL 04/04/19 09:00 05/04/19 08:59 04/06/19 09:02 Prochlorperazine (Compazine) 10 mg Q6H PRN IVP Nausea & Vomiting 04/06/19 12:15 05/06/19 12:14 Quetiapine Fumarate (SEROqueL) 50 mg QHS ORAL 04/06/19 21:00 05/06/19 20:59 Tramadol HCl (Ultram) 50 mg Q6H PRN ORAL severe pain 04/03/19 19:30 04/09/19 13:29 04/06/19 15:23 Rafael Lerma MD Apr 06, 2019 15:56
[2019-04-06 16:00] VITALS: BP 128/71
--- NOTE | 2019-04-06 16:54 | Diagnostic Imaging Report ---
Indication: Abdominal pain Technique: Supine view of the abdomen Comparison: 03/01/2017 Findings: Previously demonstrated nasogastric tube is no longer evident. There is a Esqueda catheter present. Considerable gas is seen in nondilated large and small bowel. There is lumbar scoliotic deformity. Findings are similar to the prior exam Impression: Findings as noted. No definite acute process
--- NOTE | 2019-04-06 18:51 | Surgery Progress Note ---
Surgery Progress Note Subjective Symptoms: other Objective Last 24 Hour Vital Signs Date Time Temp Pulse Resp B/P (MAP) Pulse Ox O2 Delivery O2 Flow Rate FiO2 04/06/19 16:00 103 04/06/19 16:00 96.8 98 19 128/71 (90) 93 04/06/19 12:00 99 04/06/19 12:00 97.6 99 18 100/86 (91) 92 04/06/19 09:02 86 129/58 04/06/19 09:01 129/58 04/06/19 09:00 Nasal Cannula 2.0 04/06/19 09:00 Nasal Cannula 2.0 04/06/19 08:59 86 129/58 04/06/19 08:00 96.5 86 20 129/58 (81) 94 04/06/19 08:00 90 04/06/19 07:59 93 Nasal Cannula 2.0 28 04/06/19 04:13 96.8 04/06/19 04:00 2.0 04/06/19 04:00 97.0 100 20 117/67 (84) 94 04/06/19 04:00 103 04/06/19 00:00 2.0 04/06/19 00:00 96.8 109 20 122/61 (81) 94 04/06/19 00:00 113 04/05/19 21:44 99 133/65 04/05/19 21:00 Nasal Cannula 2.0 04/05/19 20:00 2.0 04/05/19 20:00 98.2 99 18 133/65 (87) 95 04/05/19 20:00 104 04/05/19 19:06 91 Nasal Cannula 2.0 28 04/05/19 18:52 97.2 I&O Intake and Output 04/05/19 04/06/19 18:59 06:59 Intake Total 950 ml Output Total 2001 ml 2000 ml Balance -1051 ml -2000 ml Intake Oral 240 ml IV Total 710 ml Output Urine Total 2000 ml 2000 ml Stool Total 1 ml # Bowel Movements 1 Dressing: saturated Wound: other Drains: other Cardiovascular: RSR Respiratory: decreased breath sounds Abdomen: soft, present bowel sounds Extremities: no cyanosis, other Laboratory Tests Test 04/06/19 05:50 04/06/19 06:20 04/06/19 12:25 White Blood Count 11.1 K/UL (4.8-10.8) H Red Blood Count 3.20 M/UL (4.20-5.40) L Hemoglobin 9.2 G/DL (12.0-16.0) L Hematocrit 29.3 % (37.0-47.0) L Mean Corpuscular Volume 92 FL (80-99) Mean Corpuscular Hemoglobin 28.9 PG (27.0-31.0) Mean Corpuscular Hemoglobin Concent 31.5 G/DL (32.0-36.0) L Red Cell Distribution Width 14.3 % (11.6-14.8) Platelet Count 254 K/UL (150-450) Mean Platelet Volume 6.6 FL (6.5-10.1) Neutrophils (%) (Auto) 60.4 % (45.0-75.0) Lymphocytes (%) (Auto) 26.9 % (20.0-45.0) Monocytes (%) (Auto) 8.4 % (1.0-10.0) Eosinophils (%) (Auto) 3.9 % (0.0-3.0) H Basophils (%) (Auto) 0.4 % (0.0-2.0) Sodium Level 141 MMOL/L (136-145) Potassium Level 4.1 MMOL/L (3.5-5.1) Chloride Level 100 MMOL/L (98-107) Carbon Dioxide Level 36 MMOL/L (21-32) H Anion Gap 5 mmol/L (5-15) Blood Urea Nitrogen 15 mg/dL (7-18) Creatinine 0.8 MG/DL (0.55-1.30) # Estimat Glomerular Filtration Rate mL/min (>60) Glucose Level 113 MG/DL (74-106) H Calcium Level 8.9 MG/DL (8.5-10.1) Phosphorus Level 3.1 MG/DL (2.5-4.9) Magnesium Level 2.0 MG/DL (1.8-2.4) Stool Occult Blood Negative (NEGATIVE) Troponin I 0.000 ng/mL (0.000-0.056) Plan Problems: (1) Leukocytosis Assessment & Plan: leukocytosis fluctuating labs noted exam stable Abx as per ID cont IV abx trend labs (2) Decubitus skin ulcer Assessment & Plan: Pt presented on admission with moisture intertrigo R and L breasts. both breast folds are erythematous with denuded skin . DTPI noted to Upper R buttocks. Base of wound is maroon is indurated and elongated with surrounding non-blanching erythema. (L)1cm x (W)4cm. Both heels are soft pink and blanchable.No other skin concerns noted. stable Pt presented on admission with DTPI R sacrum which has now evolved into a full thickness pressure injury. Base of wound is moist with 20% slough, 80% granular. Periwound is pink and non-tender when palpated.(L)3cm x (W)1.8cm. Moisture Intertrigo both breasts resolving .Less erythema noted. Both heels are soft but easily blanches. Tx.Plan: Apply Hydraguard Silicone cream to R and L breasts Daily. Cleanse R sacral wound with saline. Apply TheraHoney. Apply Moisture Barrier periwound. Cover with Optifoam drsg. Change every 3days and prn. Apply Cavilon Skin Barrier to both heels. Cover each heels with Optifoam drsg. Change every 7 days and prn. APM/MARCUS Mattress overlay. Reposition at least every 2hours or as tolerated. Off-load heels with pillow. (3) Limited mobility (4) Constipation (5) Protein-calorie malnutrition, mild Assessment & Plan: DAILY ESTIMATED NEEDS: Needs based on Wound, cardiac, pulmonary, 46kg 25-30 kcals/kg 5634-5266 total kcals 1.25-1.5 g protein/kg 58-69 g total protein 25-30 mL/kg 3365-2499 total fluid mLs NUTRITION DIAGNOSIS: * Increased kcal/prot needs R/T wound healing as evidenced by pt admitted w/ DTPI wound upper right buttocks. * Swallowing difficulty R/T dysphagia as evidenced by pt NPO at this time per OR[employer] PIPE FINISHER, MBSS pending. CURRENT DIET:NPO PO DIET RECOMMENDATIONS: LOW NA/ texture per OR[employer] PIPE FINISHER ADDITIONAL RECOMMENDATIONS: * Per SNF record, ht=57", hj=[id number]. * Wound healing: (w/ oral diet) add MVI x 1, Vit C 250mg QD : Edilberto 1pkt BID as tolerated * Consider checking A1C: h/o DM? * Monitor BGs closely, need for carb controlled diet Robert Orellana Apr 06, 2019 18:51
--- NOTE | 2019-04-06 19:30 | Consultation ---
DATE OF CONSULTATION: 04/06/2019 CARDIAC ELECTROPHYSIOLOGY CONSULTATION CONSULTING PHYSICIAN: Lyle Allen M.D. REFERRING PHYSICIAN: Dr. Moreau. ADDITIONAL REFERRING PHYSICIAN: Isiah Barakat M.D. REASON FOR CONSULTATION: Ventricular tachycardia. HISTORY OF PRESENT ILLNESS: The patient is a 78-year-old lady with history of hypertension, COPD, congestive heart failure with diastolic dysfunction, and respiratory failure, who was admitted on 03/30/2019. The patient had developed multiple runs of ventricular tachycardia while the patient was in sinus rhythm. Most recent one was 04/04/2019. Cardiac electrophysiology consultation was requested for further evaluation and management. At the time of my evaluation, the patient is alert, but is still short of breath. REVIEW OF SYSTEMS: Negative other than what was mentioned in history of present illness. PAST MEDICAL HISTORY: 1. Hypertension. 2. COPD. 3. Congestive heart failure with diastolic dysfunction. 4. Gastroesophageal reflux. 5. Anemia. 6. IBS. 7. Home oxygen dependency. 8. Hyperlipidemia. 9. Degenerative disk disease. 10. Breast cancer in the past. ALLERGIES: She is allergic to or tetracycline and tomato. SOCIAL HISTORY: Negative for smoking. Lives in [facility]. PHYSICAL EXAMINATION: VITAL SIGNS: Show blood pressure of 110/58, pulse 86, respirations 18, and temperature 96.5. HEAD AND NECK: Shows mild JVD. LUNGS: Coarse rhonchi. CARDIOVASCULAR: Shows regular S1 and S2 with no gallop or murmur and tachycardic. ABDOMEN: Soft. EXTREMITIES: 1+ pitting edema. LABORATORY AND DIAGNOSTIC DATA: Labs show white count of 11.9, hemoglobin 9.2, hematocrit 29.3, and platelet count of 254,000. Sodium 141, potassium 4.1, BUN 15, and creatinine 0.8. Telemetry from today shows frequent PVCs. However, the telemetry strip on 04/04/2019 at 4:16 p.m. showed multiple runs of nonsustained ventricular tachycardia including runs of 15 beats of nonsustained ventricular tachycardia. ASSESSMENT AND PLAN: 1. Recurrent nonsustained ventricular tachycardia. The patient's echocardiogram on 03/30/2019 showed ejection fraction 55% to 60%. We will check the electrolytes again including magnesium and phosphate. The patient was started on metoprolol 12.5 mg twice a day that I would continue. 2. Congestive heart failure with diastolic dysfunction. 3. Hypertension, on amlodipine 10 mg daily, metoprolol 12.5 mg b.i.d., and lisinopril 20 mg daily. The patient is on p.r.n. hydralazine. I will check BNP as the patient BNP was more than 3000 and the patient may need Lasix. 4. Sepsis, on broad spectrum IV antibiotics. 5. Severe chronic obstructive pulmonary disease. Thank you very much, Dr. Moreau and Dr. Barakat, for allowing me to participate in the care of this patient. Please do not hesitate to contact me for any questions regarding my evaluation. Lyle Allen M.D. DR: PATY JOB#: [id number] CC:
[2019-04-06 20:00] VITALS: BP 113/64
--- NOTE | 2019-04-06 20:40 | Diagnostic Imaging Report ---
EXAM: CT Abdomen and Pelvis With Intravenous Contrast CLINICAL HISTORY: ABD PAIN TECHNIQUE: Axial computed tomography images of the abdomen and pelvis with intravenous contrast. CTDI is 13.8 mGy and DLP is 702.5 mGy-cm. One or more of the following dose reduction techniques were used: automated exposure control, adjustment of the mA and/or kV according to patient size, use of iterative reconstruction technique. COMPARISON: No relevant prior studies available. FINDINGS: Lung bases: Atelectasis in the left lower lobe. ABDOMEN: Liver: Hemangiomas within hepatic segments 7 and 8 measuring 1.7 and 1. 8 cm. Gallbladder and bile ducts: Dilated biliary tree, common bile duct measuring 1.4 cm. No obstructing stone or mass. Pancreas: Unremarkable. No mass. No ductal dilation. Spleen: Unremarkable. No splenomegaly. Adrenals: Unremarkable. No mass. Kidneys and ureters: Moderate to severe right hydronephrosis which is favored chronic with a few stones layering dependently in the renal pelvis. Stomach and bowel: Moderate stool ball within the rectum. Colonic diverticulosis without diverticulitis. No obstruction. PELVIS: Appendix: The appendix is minimally prominent measuring 7 mm. No periappendiceal fat stranding. Bladder: Unremarkable. No mass. Reproductive: Leiomyomatous uterus. ABDOMEN and PELVIS: Intraperitoneal space: Unremarkable. No free air. No significant fluid collection. Bones/joints: Marked dextroscoliosis. No acute fracture. No dislocation. Soft tissues: Unremarkable. Vasculature: Moderate aortobiiliac atherosclerotic calcifications. No abdominal aortic aneurysm. Lymph nodes: Unremarkable. No enlarged lymph nodes. IMPRESSION: 1. Moderate stool ball within the rectum. Correlate for impaction. 2. Dilated biliary tree, common bile duct measuring 1.4 cm. No obstructing stone or mass. 3. Moderate to severe right hydronephrosis which is favored chronic with a few stones layering dependently in the renal pelvis. No ureteral dilatation. 4. Leiomyomatous uterus.
[2019-04-07] VITALS: BP 120/69
[2019-04-07 00:38] LABS: APPEARANCE,URINE CLEAR; BILIRUBIN, URINE NEGATIVE (NEGATIVE); COLOR,URINE PALE YELLOW; GLUCOSE, URINE (UA) NEGATIVE (NEGATIVE); KETONES,URINE NEGATIVE (NEGATIVE); LEUKOCYTE ESTERASE ,URINE 1+ (NEGATIVE); NITRITE,URINE NEGATIVE (NEGATIVE); PH,URINE 7 (4.5-8.0); PROTEIN,URINE 1+ (NEGATIVE); UROBILINOGEN,URINE NORMAL MG/DL (0.0-1.0)
[2019-04-07 03:15] LABS: BASOPHILS % (AUTO) 0.2 % (0.0-2.0); EOSINOPHILS % (AUTO) 1.3 % (0.0-3.0); HEMATOCRIT 30.3 % (37.0-47.0); HEMOGLOBIN 9.7 G/DL (12.0-16.0); LYMPHOCYTES % (AUTO) 14.6 % (20.0-45.0); MEAN CORPUSCULAR VOLUME 89 FL (80-99); MONOCYTES % (AUTO) 4.4 % (1.0-10.0); NEUTROPHILS % (AUTO) 79.5 % (45.0-75.0); PLATELET COUNT 316 K/UL (150-450); RED CELL DISTRIBUTION WIDTH 13.8 % (11.6-14.8); WHITE BLOOD COUNT 16.1 K/UL (4.8-10.8)
[2019-04-07 03:57] LABS: ANION GAP 6 mmol/L (5-15); BLOOD UREA NITROGEN 22 mg/dL (7-18); CALCIUM 8.4 MG/DL (8.5-10.1); CARBON DIOXIDE 37 MMOL/L (21-32); CHLORIDE 94 MMOL/L (98-107); POTASSIUM 3.5 MMOL/L (3.5-5.1); SODIUM 137 MMOL/L (136-145)
[2019-04-07 04:00] VITALS: BP 117/68
--- NOTE | 2019-04-07 07:59 | General Progress Note ---
Assessment/Plan Status: unchanged Assessment/Plan: Assessment/Plan Problems: (1) GERD (gastroesophageal reflux disease) ICD Codes: K21.9 - Gastro-esophageal reflux disease without esophagitis SNOMED: 721095606 (2) Protein-calorie malnutrition, mild ICD Codes: E44.1 - Mild protein-calorie malnutrition SNOMED: 99330617 (3) Anemia ICD Codes: D64.9 - Anemia, unspecified SNOMED: 766562826 Assessment/Plan History of endoscopy and colonoscopy on February 11, 2019 noted with gastritis and one colonic polyp. No plan for any GI procedures at this time given recent history of procedure. will obtain CT given persistent abdominal pain zofran prn, compazine for persistent nausea. Reglan has drug to drug interaction. anemia work up reviewed Fecal occult blood stool to rule out any GI bleed, negative PPI daily Monitor H&H, PRN transfusions Antibiotics per infectious diseases passed swallow eval for puree diet but poor po intake good response to marinol wound care Subjective ROS Limited/Unobtainable: Yes Allergies: Coded Allergies: [place] (Unverified Allergy, Mild, upset stomach, 02/10/19) TOMATO (Unverified Allergy, Mild, upset stomach, 02/10/19) TETRACYCLINE (Unverified Allergy, Unknown, 07/24/14) Objective Last 24 Hour Vital Signs Date Time Temp Pulse Resp B/P (MAP) Pulse Ox O2 Delivery O2 Flow Rate FiO2 04/07/19 04:00 98.1 90 19 117/68 (84) 97 04/07/19 04:00 102 04/07/19 00:00 93 04/07/19 00:00 98.4 92 18 120/69 (86) 96 04/06/19 21:00 Nasal Cannula 2.0 04/06/19 20:46 95 113/64 04/06/19 20:00 91 04/06/19 20:00 98.5 95 19 113/64 (80) 95 04/06/19 19:00 97 Nasal Cannula 2.0 28 04/06/19 16:00 103 04/06/19 16:00 96.8 98 19 128/71 (90) 93 04/06/19 12:00 99 04/06/19 12:00 97.6 99 18 100/86 (91) 92 04/06/19 09:02 86 129/58 04/06/19 09:01 129/58 04/06/19 09:00 Nasal Cannula 2.0 04/06/19 09:00 Nasal Cannula 2.0 04/06/19 08:59 86 129/58 04/06/19 08:00 96.5 86 20 129/58 (81) 94 04/06/19 08:00 90 04/06/19 07:59 93 Nasal Cannula 2.0 28 Intake and Output 04/06/19 04/07/19 19:00 07:00 Intake Total 170 ml 806 ml Output Total 600 ml Balance 170 ml 206 ml Intake Oral 120 ml 120 ml IV Total 50 ml 686 ml Output Urine Total 600 ml # Bowel Movements 1 Laboratory Tests 04/06/19 12:25: Troponin I 0.000 04/06/19 18:25: Urine Color Pale yellow, Urine Appearance Clear, Urine pH 7, Urine Specific [place] 1.005, Urine Protein 1+H, Urine Glucose (UA) Negative, Urine Ketones Negative, Urine Blood 2+H, Urine Nitrite Negative, Urine Bilirubin Negative, Urine Urobilinogen Normal, Urine Leukocyte Esterase 1+H, Urine RBC 2-4H, Urine WBC 2-4, Urine Squamous Epithelial Cells Few, Urine Bacteria Few 04/06/19 19:05: Troponin I 0.000 04/07/19 03:08: Troponin I 0.000, White Blood Count 16.1H, Red Blood Count 3.40L, Hemoglobin 9.7L, Hematocrit 30.3L, Mean Corpuscular Volume 89, Mean Corpuscular Hemoglobin 28.4, Mean Corpuscular Hemoglobin Concent 31.9L, Red Cell Distribution Width 13.8, Platelet Count 316, Mean Platelet Volume 6.2L, Neutrophils (%) (Auto) 79.5H, Lymphocytes (%) (Auto) 14.6L, Monocytes (%) (Auto) 4.4, Eosinophils (%) ( Auto) 1.3, Basophils (%) (Auto) 0.2, Sodium Level 137, Potassium Level 3.5, Chloride Level 94L, Carbon Dioxide Level 37H, Anion Gap 6, Blood Urea Nitrogen 22H, Creatinine 1.0, Estimat Glomerular Filtration Rate , Glucose Level 148H, Calcium Level 8.4L, Pro-B-Type Natriuretic Peptide 1334H, Thyroid Stimulating Hormone (TSH) 1.065, Free Thyroxine 1.16 Height (Feet): 5 Height (Inches): 4.00 Weight (Pounds): 156 General Appearance: alert EENT: normal ENT inspection Neck: supple Cardiovascular: normal rate Respiratory/Chest: decreased breath sounds Abdomen: normal bowel sounds, non tender, soft Extremities: non-tender Kapil Arshad MD Apr 07, 2019 07:59
[2019-04-07 08:00] VITALS: BP 105/51
--- NOTE | 2019-04-07 08:39 | Cardiac Electrophysiology PN ---
Assessment/Plan Assessment/Plan 1. Recurrent nonsustained ventricular tachycardia. The patient's echocardiogram on 03/30/2019 showed ejection fraction 55% to 60%. Continue metoprolol 12.5 mg twice a day 2. Congestive heart failure with diastolic dysfunction. On Lasix 40 iv daily 3. Hypertension, on amlodipine 10 mg daily, metoprolol 12.5 mg b.i.d.,Lasix and lisinopril 20 mg daily. The patient is on p.r.n. hydralazine. 4. Sepsis, on broad spectrum IV antibiotics. 5. Severe chronic obstructive pulmonary disease. CHARLEY RN Subjective Subjective Alert in NAD. No further VT Objective Last 24 Hour Vital Signs Date Time Temp Pulse Resp B/P (MAP) Pulse Ox O2 Delivery O2 Flow Rate FiO2 04/07/19 08:24 96 Nasal Cannula 2.0 28 04/07/19 08:00 97.9 90 18 105/51 (69) 95 04/07/19 04:00 98.1 90 19 117/68 (84) 97 04/07/19 04:00 102 04/07/19 00:00 93 04/07/19 00:00 98.4 92 18 120/69 (86) 96 04/06/19 21:00 Nasal Cannula 2.0 04/06/19 20:46 95 113/64 04/06/19 20:00 91 04/06/19 20:00 98.5 95 19 113/64 (80) 95 04/06/19 19:00 97 Nasal Cannula 2.0 28 04/06/19 16:00 103 04/06/19 16:00 96.8 98 19 128/71 (90) 93 04/06/19 12:00 99 04/06/19 12:00 97.6 99 18 100/86 (91) 92 04/06/19 09:02 86 129/58 04/06/19 09:01 129/58 04/06/19 09:00 Nasal Cannula 2.0 04/06/19 09:00 Nasal Cannula 2.0 04/06/19 08:59 86 129/58 Intake and Output 04/06/19 04/07/19 19:00 07:00 Intake Total 170 ml 806 ml Output Total 600 ml Balance 170 ml 206 ml Intake Oral 120 ml 120 ml IV Total 50 ml 686 ml Output Urine Total 600 ml # Bowel Movements 1 Laboratory Tests Test 04/06/19 12:25 04/06/19 18:25 04/06/19 19:05 04/07/19 03:08 Troponin I 0.000 ng/mL (0.000-0.056) 0.000 ng/mL (0.000-0.056) 0.000 ng/mL (0.000-0.056) Urine Color Pale yellow Urine Appearance Clear Urine pH 7 (4.5-8.0) Urine Specific [place] 1.005 (1.005-1.035) Urine Protein 1+ (NEGATIVE) H Urine Glucose (UA) Negative (NEGATIVE) Urine Ketones Negative (NEGATIVE) Urine Blood 2+ (NEGATIVE) H Urine Nitrite Negative (NEGATIVE) Urine Bilirubin Negative (NEGATIVE) Urine Urobilinogen Normal MG/DL (0.0-1.0) Urine Leukocyte Esterase 1+ (NEGATIVE) H Urine RBC 2-4 /HPF (0 - 2) H Urine WBC 2-4 /HPF (0 - 2) Urine Squamous Epithelial Cells Few /LPF (NONE/OCC) Urine Bacteria Few /HPF (NONE) White Blood Count 16.1 K/UL (4.8-10.8) H Red Blood Count 3.40 M/UL (4.20-5.40) L Hemoglobin 9.7 G/DL (12.0-16.0) L Hematocrit 30.3 % (37.0-47.0) L Mean Corpuscular Volume 89 FL (80-99) Mean Corpuscular Hemoglobin 28.4 PG (27.0-31.0) Mean Corpuscular Hemoglobin Concent 31.9 G/DL (32.0-36.0) L Red Cell Distribution Width 13.8 % (11.6-14.8) Platelet Count 316 K/UL (150-450) Mean Platelet Volume 6.2 FL (6.5-10.1) L Neutrophils (%) (Auto) 79.5 % (45.0-75.0) H Lymphocytes (%) (Auto) 14.6 % (20.0-45.0) L Monocytes (%) (Auto) 4.4 % (1.0-10.0) Eosinophils (%) (Auto) 1.3 % (0.0-3.0) Basophils (%) (Auto) 0.2 % (0.0-2.0) Sodium Level 137 MMOL/L (136-145) Potassium Level 3.5 MMOL/L (3.5-5.1) Chloride Level 94 MMOL/L (98-107) L Carbon Dioxide Level 37 MMOL/L (21-32) H Anion Gap 6 mmol/L (5-15) Blood Urea Nitrogen 22 mg/dL (7-18) H Creatinine 1.0 MG/DL (0.55-1.30) Estimat Glomerular Filtration Rate mL/min (>60) Glucose Level 148 MG/DL (74-106) H Calcium Level 8.4 MG/DL (8.5-10.1) L Pro-B-Type Natriuretic Peptide 1334 pg/mL (0-125) H Thyroid Stimulating Hormone (TSH) 1.065 uiU/mL (0.358-3.740) Free Thyroxine 1.16 NG/DL (0.76-1.46) Microbiology Date/Time Source Procedure Growth Status 04/06/19 18:25 Indwelling Cath Urine Culture - Preliminary NO GROWTH Resulted Objective HEAD AND NECK: Mild JVD. LUNGS: Coarse rhonchi. CARDIOVASCULAR: Regular S1 and S2 with no gallop or murmur and tachycardic. ABDOMEN: Soft. EXTREMITIES: 1+ pitting edema. Lyle Allen MD Apr 07, 2019 08:39
[2019-04-07] MEDS: clonazePAM 0.5mg tab ORAL SCH ×2 (08:53→17:37)
[2019-04-07] MEDS: Pantoprazole Inj IVP SCH ×2 (08:53→21:34)
[2019-04-07] MEDS: Metoprolol Tartrate 12.5mg TAB ORAL SCH ×2 (08:54→21:35)
[2019-04-07] MEDS: Lyrica 75mg cap ORAL SCH ×2 (08:54→17:37)
[2019-04-07] MEDS: Docusate 100mg cap ORAL SCH ×3 (08:54→17:37)
[2019-04-07] MEDS: Dronabinol 2.5mg Cap ORAL SCH ×2 (08:54→17:37)
[2019-04-07] MEDS: Ascorbic Acid 500mg tab ORAL SCH (08:54)
[2019-04-07] MEDS: Lisinopril 20mg tab ORAL SCH (08:55)
[2019-04-07] MEDS: Heparin 5000 units/ml inj SUBQ SCH ×2 (08:56→21:36)
[2019-04-07] MEDS: Meropenem 1 GM in NS 110 ML IVPB SCH ×2 (08:58→21:34)
--- NOTE | 2019-04-07 10:43 | General Progress Note ---
Assessment/Plan Problem List: (1) Acute and chronic respiratory failure ([id number]) ICD Codes: J96.20 - Acute and chr resp failure, unsp w hypoxia or hypercapnia SNOMED: 80015211 (2) Respiratory failure with hypoxia ICD Codes: J96.91 - Respiratory failure, unspecified with hypoxia SNOMED: 50934708612511111 (3) Gram-negative bacteremia ICD Codes: R78.81 - Bacteremia SNOMED: 854271045918 (4) Severe sepsis ICD Codes: A41.9 - Sepsis, unspecified organism; R65.20 - Severe sepsis without septic shock SNOMED: 90212609 (5) CRISTÓBAL (acute kidney injury) ICD Codes: N17.9 - Acute kidney failure, unspecified SNOMED: 52336110, 4570649, 683472296 (6) UTI (urinary tract infection) ICD Codes: N39.0 - Urinary tract infection, site not specified SNOMED: 26851464, 63702556, 930220614 (7) Hyponatremia ICD Codes: E87.1 - Hypo-osmolality and hyponatremia SNOMED: 45082900 (8) COPD (chronic obstructive pulmonary disease) ICD Codes: J44.9 - Chronic obstructive pulmonary disease, unspecified SNOMED: 09751363 (9) Anemia ICD Codes: D64.9 - Anemia, unspecified SNOMED: 080478508 (10) Anxiety ICD Codes: F41.9 - Anxiety disorder, unspecified SNOMED: 26232745 (11) Hypertension ICD Codes: I10 - Essential (primary) hypertension SNOMED: 98355119 (12) History of breast cancer ICD Codes: Z85.3 - Personal history of malignant neoplasm of breast SNOMED: 303846807 (13) Diastolic CHF ICD Codes: I50.30 - Unspecified diastolic (congestive) heart failure SNOMED: 51708011, 797581076 (14) Hypercholesteremia ICD Codes: E78.00 - Pure hypercholesterolemia, unspecified SNOMED: 24476208 (15) Protein-calorie malnutrition, mild ICD Codes: E44.1 - Mild protein-calorie malnutrition SNOMED: 40307819 Status: unchanged Assessment/Plan: 78-year-old female with PMHx of COPD on 2L O2, HTN, diastolic CHF, chronic, osteoporosis, IBS-C, DDD, anemia and UTI sent from SNF for fever, lethargy, and congestion. #Severe sepsis/ septic shock secondary to pneumonia, ? aspiration ?HCAP vs. UTI , gram negative bacteremia, gram negative UTI. resolving. wbc trending up, cxr worsening congestion, left base infiltrate vs atelectasis. ct abd pelvic, dilated cbd, no stones. surgical follow up. d/w dr. Orellana #Acute on chronic hypoxic respiratory failure- responding to non invasive positive pressure ventilation #CRISTÓBAL- prerenal- resolved, #diastolic CHF, possible acute exacerbation #Hyponatremia- hypovolemic, resolved #COPD on home O2, doubt exacerbation #HTN, HLD #Normocytic Anemia- stable #Anxiety/depression #Mild protein calorie malnutrition #Hypernatremia over the weekend- resolved #persistent nausea and abdominal pain ? constipation -s/p IV hydration, stopped, d5ns @50 while poor po intake -Broad spectrum antibiotics: s/p Zosyn, Vancomycin and Azithromycin. Renal dose. Per ID switch to Amikacin once and meropenem. ID to follow up reg antibiotics, d/w Dr. Grady, will add vancomycin. Get abd US. repeat cultures. follow up sputum culture collected today. -stop bipap, titrate to keep SpO2 >90% -ID and pulmonary consults -Repeat Echocardiogram reviewed - Duo-Nebs Q6hr PRN SOB/Wheezing -One time IV lasix 40mg, continue po lasix per cards recs - continue home Singulair -Monitor renal function, continue shi, if cr without improvement, renal consult - resume ACEi - resume Amlodipine 10mg PO daily - Metoprolol 12.5 BID - resume stain and ASA while npo - resume lyrica 75mg PO BID - resume Lexapro 20mg Po daily, Resume Klonipin and ativan prn. Psychiatry consult with Dr. Stern who know her from [facility] - resume Colace 100mg Po BID - resume simethecone 125mg PO TID -Marinol #Goals of care - DNR/DNI, POLST reviewed FENPPx Fluids: 1 L bolus, reassess Diet: soft chew, thin liquid LIQUIDS. DVTPPx: Heparin SBQ q12 GI PPX: PPI IV PT/OT: pending Code status: DNR/DNI, per polst Dispo: Back to SNF pending clinical course I spent 40 minutes on this encounter, 20 minutes spent on counselling and care coordination D/w RN, general surgery: Dr. Orellana, pulmonary: Dr. Lerma, ID: Dr. Grady. Subjective Date patient seen: Apr 07, 2019 ROS Limited/Unobtainable: No Constitutional: Denies: no symptoms, chills, diaphoresis, fever, malaise, weakness, other HEENT: Denies: no symptoms, eye pain, blurred vision, tearing, double vision, ear pain, ear discharge, nose pain, nose congestion, throat pain, throat swelling, mouth pain, mouth swelling, other Cardiovascular: Denies: no symptoms, chest pain, edema, irregular heart rate, lightheadedness, palpitations, syncope, other Respiratory: Denies: no symptoms, cough, orthopnea, shortness of breath, SOB with excertion, SOB at rest, sputum, stridor, wheezing, other Gastrointestinal/Abdominal: Reports: abdominal pain, nausea Genitourinary: Denies: no symptoms, burning, discharge, frequency, flank pain, hematuria, incontinence, pain, urgency, other Neurologic/Psychiatric: Denies: no symptoms, anxiety, depressed, emotional problems, headache, numbness, paresthesia, pre-existing deficit, seizure, tingling, tremors, weakness, other Endocrine: Denies: no symptoms, excessive sweating, flushing, intolerance to cold, intolerance to heat, increased hunger, increased thirst, increased urine, unexplained weight gain, unexplained weight loss, other Hematologic/Lymphatic: Denies: no symptoms, anemia, easy bleeding, easy bruising, other Allergies: Coded Allergies: Lane (Unverified Allergy, Mild, upset stomach, 02/10/19) TOMATO (Unverified Allergy, Mild, upset stomach, 02/10/19) TETRACYCLINE (Unverified Allergy, Unknown, 07/24/14) Subjective alert and awake. tolerating diet. has abd pain, ct abdomen with dilated cbd 14mm. wbc going up, afebrile Objective Last 24 Hour Vital Signs Date Time Temp Pulse Resp B/P (MAP) Pulse Ox O2 Delivery O2 Flow Rate FiO2 04/07/19 09:00 Nasal Cannula 2.0 04/07/19 08:55 105/51 04/07/19 08:55 90 105/51 04/07/19 08:54 90 105/51 04/07/19 08:24 96 Nasal Cannula 2.0 28 04/07/19 08:00 97.9 90 18 105/51 (69) 95 04/07/19 08:00 90 04/07/19 04:00 98.1 90 19 117/68 (84) 97 04/07/19 04:00 102 04/07/19 00:00 93 04/07/19 00:00 98.4 92 18 120/69 (86) 96 04/06/19 21:00 Nasal Cannula 2.0 04/06/19 20:46 95 113/64 04/06/19 20:00 91 04/06/19 20:00 98.5 95 19 113/64 (80) 95 04/06/19 19:00 97 Nasal Cannula 2.0 28 04/06/19 16:00 103 04/06/19 16:00 96.8 98 19 128/71 (90) 93 04/06/19 12:00 99 04/06/19 12:00 97.6 99 18 100/86 (91) 92 Intake and Output 04/06/19 04/07/19 19:00 07:00 Intake Total 170 ml 806 ml Output Total 600 ml Balance 170 ml 206 ml Intake Oral 120 ml 120 ml IV Total 50 ml 686 ml Output Urine Total 600 ml # Bowel Movements 1 Laboratory Tests 04/06/19 12:25: Troponin I 0.000 04/06/19 18:25: Urine Color Pale yellow, Urine Appearance Clear, Urine pH 7, Urine Specific [place] 1.005, Urine Protein 1+H, Urine Glucose (UA) Negative, Urine Ketones Negative, Urine Blood 2+H, Urine Nitrite Negative, Urine Bilirubin Negative, Urine Urobilinogen Normal, Urine Leukocyte Esterase 1+H, Urine RBC 2-4H, Urine WBC 2-4, Urine Squamous Epithelial Cells Few, Urine Bacteria Few 04/06/19 19:05: Troponin I 0.000 04/07/19 03:08: Troponin I 0.000, White Blood Count 16.1H, Red Blood Count 3.40L, Hemoglobin 9.7L, Hematocrit 30.3L, Mean Corpuscular Volume 89, Mean Corpuscular Hemoglobin 28.4, Mean Corpuscular Hemoglobin Concent 31.9L, Red Cell Distribution Width 13.8, Platelet Count 316, Mean Platelet Volume 6.2L, Neutrophils (%) (Auto) 79.5H, Lymphocytes (%) (Auto) 14.6L, Monocytes (%) (Auto) 4.4, Eosinophils (%) ( Auto) 1.3, Basophils (%) (Auto) 0.2, Sodium Level 137, Potassium Level 3.5, Chloride Level 94L, Carbon Dioxide Level 37H, Anion Gap 6, Blood Urea Nitrogen 22H, Creatinine 1.0, Estimat Glomerular Filtration Rate , Glucose Level 148H, Calcium Level 8.4L, Pro-B-Type Natriuretic Peptide 1334H, Thyroid Stimulating Hormone (TSH) 1.065, Free Thyroxine 1.16 Height (Feet): 5 Height (Inches): 4.00 Weight (Pounds): 156 Objective General Appearance: sleeping, easily arousable, awake Lines, tubes and drains: peripheral HEENT: normocephalic, atraumatic, PERRL, EOMI, no JVD, DRY MM Neck: non-tender, normal alignment, supple Respiratory/Chest: rales and rhonchi Cardiovascular/Chest: tachycardic, regular rhythm, no m/r/g Abdomen: normal bowel sounds, soft, obese, non tender Extremities: normal range of motion, non-tender, normal inspection, moves all ext, no edema Skin Exam: poor turger, refer to photos , stage 2 sacral decub Neurologic: lethargic, unable to assess, moves all four limbs Musculoskeletal: normal muscle bulk, no effusion, atrophy Philipp Moreau M.D. Apr 07, 2019 10:43
[2019-04-07 12:00] VITALS: BP 93/45
--- NOTE | 2019-04-07 12:44 | Diagnostic Imaging Report ---
ADDENDUM - Added by Dara Kelsey M.D. on 04/07/2019 1:31 PM (-08:00) CORRECTION: Biliary tree: Dilated common bile duct, measuring 1.3 cm in diameter. Left kidney: Left kidney measures 9.5 cm in length. Probable nonobstructing 5 mm left renal stone. No hydronephrosis. EXAM: US Abdomen Complete CLINICAL HISTORY: ABD PAIN TECHNIQUE: Real-time ultrasound of the abdomen with image documentation. COMPARISON: CT abdomen/pelvis on 04/06/2019 FINDINGS: Liver: Measures 16.9 cm. Nonspecific subtle hyperechoic focus in the right liver, measuring up to 1.[address] this appears to represent a hemangioma. Portal vein: Patent with normal direction of flow. Gallbladder: Normal. No wall thickening or pericholecystic fluid. No stone or sludge. Negative sonographic Kim's sign. Biliary tree: Dilated common bile duct, measuring 1.3 Cm in diameter. Pancreas: Visualized portions are unremarkable. Right kidney: Measures 12.3 cm in length. Severe right hydronephrosis. No definite stone. Left kidney: Left kidney measures 5 cm in length. Probable nonobstructing 5 mm left renal stone. No hydronephrosis. Bladder: Esqueda catheter in an underdistended bladder. Mild prominence of the bladder wall is nonspecific and may be secondary to underdistention. Further evaluation could be performed with urinalysis if clinically indicated. Peritoneal space: Normal. No free fluid. Aorta: Atherosclerotic changes. No visualized aneurysm the mid and distal portions of the aorta are obscured by bowel gas. IVC: Visualized portions are unremarkable. IMPRESSION: 1. Nonspecific biliary dilatation. 2. No sonographic evidence of acute cholecystitis. 3. Severe right hydronephrosis without definite stone identified. Nonobstructing 5 mm left renal stone. 4. Mild prominence of the bladder wall is nonspecific and may be secondary to underdistention. Further evaluation could be performed with urinalysis if clinically indicated. <MYCVCSECTION> Communications: 04/07/19 13:31 Call From [facility] on 04/07 13:29 (-08: 00)
--- NOTE | 2019-04-07 12:58 | Surgery Progress Note ---
Surgery Progress Note Subjective Additional Comments Patient seen and examined at bedside. Ill-appearing. Less awake and responsive. Leukocytosis worsening. CT noted and reviewed by myself personally. Nonobstructive by dilated biliary tract noted with unknown significance at this time. Objective Last 24 Hour Vital Signs Date Time Temp Pulse Resp B/P (MAP) Pulse Ox O2 Delivery O2 Flow Rate FiO2 04/07/19 12:00 97.9 93 20 93/45 (61) 94 04/07/19 09:00 Nasal Cannula 2.0 04/07/19 08:55 105/51 04/07/19 08:55 90 105/51 04/07/19 08:54 90 105/51 04/07/19 08:24 96 Nasal Cannula 2.0 28 04/07/19 08:00 97.9 90 18 105/51 (69) 95 04/07/19 08:00 90 04/07/19 04:00 98.1 90 19 117/68 (84) 97 04/07/19 04:00 102 04/07/19 00:00 93 04/07/19 00:00 98.4 92 18 120/69 (86) 96 04/06/19 21:00 Nasal Cannula 2.0 04/06/19 20:46 95 113/64 04/06/19 20:00 91 04/06/19 20:00 98.5 95 19 113/64 (80) 95 04/06/19 19:00 97 Nasal Cannula 2.0 04/06/19 16:00 103 04/06/19 16:00 96.8 98 19 128/71 (90) 93 I&O Intake and Output 04/06/19 04/07/19 19:00 07:00 Intake Total 170 ml 806 ml Output Total 600 ml Balance 170 ml 206 ml Intake Oral 120 ml 120 ml IV Total 50 ml 686 ml Output Urine Total 600 ml # Bowel Movements 1 Dressing: other Wound: other Drains: other Cardiovascular: RSR Respiratory: decreased breath sounds Abdomen: soft, present bowel sounds Extremities: no cyanosis, other Laboratory Tests Test 04/06/19 18:25 04/06/19 19:05 04/07/19 03:08 Urine Color Pale yellow Urine Appearance Clear Urine pH 7 (4.5-8.0) Urine Specific [place] 1.005 (1.005-1.035) Urine Protein 1+ (NEGATIVE) H Urine Glucose (UA) Negative (NEGATIVE) Urine Ketones Negative (NEGATIVE) Urine Blood 2+ (NEGATIVE) H Urine Nitrite Negative (NEGATIVE) Urine Bilirubin Negative (NEGATIVE) Urine Urobilinogen Normal MG/DL (0.0-1.0) Urine Leukocyte Esterase 1+ (NEGATIVE) H Urine RBC 2-4 /HPF (0 - 2) H Urine WBC 2-4 /HPF (0 - 2) Urine Squamous Epithelial Cells Few /LPF (NONE/OCC) Urine Bacteria Few /HPF (NONE) Troponin I 0.000 ng/mL (0.000-0.056) 0.000 ng/mL (0.000-0.056) White Blood Count 16.1 K/UL (4.8-10.8) H Red Blood Count 3.40 M/UL (4.20-5.40) L Hemoglobin 9.7 G/DL (12.0-16.0) L Hematocrit 30.3 % (37.0-47.0) L Mean Corpuscular Volume 89 FL (80-99) Mean Corpuscular Hemoglobin 28.4 PG (27.0-31.0) Mean Corpuscular Hemoglobin Concent 31.9 G/DL (32.0-36.0) L Red Cell Distribution Width 13.8 % (11.6-14.8) Platelet Count 316 K/UL (150-450) Mean Platelet Volume 6.2 FL (6.5-10.1) L Neutrophils (%) (Auto) 79.5 % (45.0-75.0) H Lymphocytes (%) (Auto) 14.6 % (20.0-45.0) L Monocytes (%) (Auto) 4.4 % (1.0-10.0) Eosinophils (%) (Auto) 1.3 % (0.0-3.0) Basophils (%) (Auto) 0.2 % (0.0-2.0) Sodium Level 137 MMOL/L (136-145) Potassium Level 3.5 MMOL/L (3.5-5.1) Chloride Level 94 MMOL/L (98-107) L Carbon Dioxide Level 37 MMOL/L (21-32) H Anion Gap 6 mmol/L (5-15) Blood Urea Nitrogen 22 mg/dL (7-18) H Creatinine 1.0 MG/DL (0.55-1.30) Estimat Glomerular Filtration Rate mL/min (>60) Glucose Level 148 MG/DL (74-106) H Calcium Level 8.4 MG/DL (8.5-10.1) L Pro-B-Type Natriuretic Peptide 1334 pg/mL (0-125) H Thyroid Stimulating Hormone (TSH) 1.065 uiU/mL (0.358-3.740) Free Thyroxine 1.16 NG/DL (0.76-1.46) Plan Problems: (1) Leukocytosis Assessment & Plan: leukocytosis fluctuating labs noted exam stable Abx as per ID cont IV abx CT noted reviewed. Unlikely etiology of leukocytosis dilated biliary tract without obstruction. Will monitor. 1. Moderate stool ball within the rectum. Correlate for impaction. 2. Dilated biliary tree, common bile duct measuring 1.4 cm. No obstructing stone or mass. 3. Moderate to severe right hydronephrosis which is favored chronic with a few stones layering dependently in the renal pelvis. No ureteral dilatation. 4. Leiomyomatous uterus. 1. Nonspecific biliary dilatation. 2. No sonographic evidence of acute cholecystitis. 3. Severe right hydronephrosis without definite stone identified. Nonobstructing 5 mm left renal stone. 4. Mild prominence of the bladder wall is nonspecific and may be secondary to underdistention. Further evaluation could be performed with urinalysis if clinically indicated. trend labs (2) Decubitus skin ulcer Assessment & Plan: Pt presented on admission with moisture intertrigo R and L breasts. both breast folds are erythematous with denuded skin . DTPI noted to Upper R buttocks. Base of wound is maroon is indurated and elongated with surrounding non-blanching erythema. (L)1cm x (W)4cm. Both heels are soft pink and blanchable.No other skin concerns noted. stable Pt presented on admission with DTPI R sacrum which has now evolved into a full thickness pressure injury. Base of wound is moist with 20% slough, 80% granular. Periwound is pink and non-tender when palpated.(L)3cm x (W)1.8cm. Moisture Intertrigo both breasts resolving .Less erythema noted. Both heels are soft but easily blanches. Tx.Plan: Apply Hydraguard Silicone cream to R and L breasts Daily. Cleanse R sacral wound with saline. Apply TheraHoney. Apply Moisture Barrier periwound. Cover with Optifoam drsg. Change every 3days and prn. Apply Cavilon Skin Barrier to both heels. Cover each heels with Optifoam drsg. Change every 7 days and prn. APM/MARCUS Mattress overlay. Reposition at least every 2hours or as tolerated. Off-load heels with pillow. (3) Limited mobility (4) Constipation (5) Protein-calorie malnutrition, mild Assessment & Plan: DAILY ESTIMATED NEEDS: Needs based on Wound, cardiac, pulmonary, 46kg 25-30 kcals/kg 7293-8836 total kcals 1.25-1.5 g protein/kg 58-69 g total protein 25-30 mL/kg 8218-9867 total fluid mLs NUTRITION DIAGNOSIS: * Increased kcal/prot needs R/T wound healing as evidenced by pt admitted w/ DTPI wound upper right buttocks. * Swallowing difficulty R/T dysphagia as evidenced by pt NPO at this time per [employer], MBSS pending. CURRENT DIET:NPO PO DIET RECOMMENDATIONS: LOW NA/ texture per [employer] ADDITIONAL RECOMMENDATIONS: * Per SNF record, ht=57", mw=334cob. * Wound healing: (w/ oral diet) add MVI x 1, Vit C 250mg QD : Edilberto 1pkt BID as tolerated * Consider checking A1C: h/o DM? * Monitor BGs closely, need for carb controlled diet Robert Orellana Apr 07, 2019 12:58
--- NOTE | 2019-04-07 14:07 | Pulmonology Progress Note ---
Assessment/Plan Problems: (1) UTI (urinary tract infection) Assessment & Plan: E coli (2) Sepsis with acute hypoxic respiratory failure (3) CRISTÓBAL (acute kidney injury) (4) COPD (chronic obstructive pulmonary disease) (5) Anemia (6) Anxiety (7) Hypercholesteremia (8) Hyponatremia (9) Acute and chronic respiratory failure ([id number]) (10) Hypertension (11) Protein-calorie malnutrition, mild Assessment/Plan ASSESSMENT: The patient is a 78-year-old female with history of COPD, CHF with diastolic dysfunction, GERD, anemia, hypertension, hyperlipidemia, IBS, detention resident with pulsating comfort measures only and DNR, presenting with altered mental status, hypertension, likely secondary to UTI with urosepsis and hypoxemia secondary to above. PROBLEM LIST: 1. Hypoxemia likely secondary to urosepsis. 2. E coli UTI and GNR sepsis 3. COPD. 4. Home O2 dependence. 5. CHF with diastolic dysfunction. 6. CRISTÓBAL with hyponatremia. 7. Anemia. 8. Recent admission for gastritis. 9. Hypertension, hyperlipidemia, GERD, IBS. 10. DNAR, PULSE comfort measures only. TREATMENT PLAN: 1. CXR 2. Titrate on FiO2 to keep saturations greater than 90%. 3. Abx per ID 4. Monitor volumes and renal function 5. Diet per [employer] with ASPIRATION precautions 6. Monitor mental status. 7. DVT prophylaxis, heparin subcutaneous. 8. The patient is DNAR, and has a POLST: comfort measures only, we will need to discuss further goals of care. Subjective Allergies: Coded Allergies: [place] (Unverified Allergy, Mild, upset stomach, 02/10/19) TOMATO (Unverified Allergy, Mild, upset stomach, 02/10/19) TETRACYCLINE (Unverified Allergy, Unknown, 07/24/14) Subjective AFVSS, O2 needs stable, WCt 16, CT and US noted, no cough, no SOB, no FC Objective Last 24 Hour Vital Signs Date Time Temp Pulse Resp B/P (MAP) Pulse Ox O2 Delivery O2 Flow Rate FiO2 04/07/19 12:00 95 04/07/19 12:00 97.9 93 20 93/45 (61) 94 04/07/19 09:00 Nasal Cannula 2.0 04/07/19 08:55 105/51 04/07/19 08:55 90 105/51 04/07/19 08:54 90 105/51 04/07/19 08:24 96 Nasal Cannula 2.0 28 04/07/19 08:00 97.9 90 18 105/51 (69) 95 04/07/19 08:00 90 04/07/19 04:00 98.1 90 19 117/68 (84) 97 04/07/19 04:00 102 04/07/19 00:00 93 04/07/19 00:00 98.4 92 18 120/69 (86) 96 04/06/19 21:00 Nasal Cannula 2.0 04/06/19 20:46 95 113/64 04/06/19 20:00 91 04/06/19 20:00 98.5 95 19 113/64 (80) 95 04/06/19 19:00 97 Nasal Cannula 2.0 28 04/06/19 16:00 103 04/06/19 16:00 96.8 98 19 128/71 (90) 93 Intake and Output 04/06/19 04/07/19 19:00 07:00 Intake Total 170 ml 806 ml Output Total 600 ml Balance 170 ml 206 ml Intake Oral 120 ml 120 ml IV Total 50 ml 686 ml Output Urine Total 600 ml # Bowel Movements 1 General Appearance: no acute distress, cachetic HEENT: normocephalic, atraumatic, anicteric, mucous membranes moist Respiratory/Chest: chest wall non-tender, lungs clear, normal breath sounds, no respiratory distress, no accessory muscle use Cardiovascular: normal peripheral pulses, normal rate, regular rhythm Abdomen: normal bowel sounds, soft, non tender, no organomegaly, non distended , no mass Extremities: no cyanosis, no clubbing, no edema Microbiology Date/Time Source Procedure Growth Status 04/06/19 18:25 Indwelling Cath Urine Culture - Preliminary NO GROWTH Resulted Laboratory Tests 04/06/19 18:25: Urine Color Pale yellow, Urine Appearance Clear, Urine pH 7, Urine Specific [place] 1.005, Urine Protein 1+H, Urine Glucose (UA) Negative, Urine Ketones Negative, Urine Blood 2+H, Urine Nitrite Negative, Urine Bilirubin Negative, Urine Urobilinogen Normal, Urine Leukocyte Esterase 1+H, Urine RBC 2-4H, Urine WBC 2-4, Urine Squamous Epithelial Cells Few, Urine Bacteria Few 04/06/19 19:05: Troponin I 0.000 04/07/19 03:08: Troponin I 0.000, White Blood Count 16.1H, Red Blood Count 3.40L, Hemoglobin 9.7L, Hematocrit 30.3L, Mean Corpuscular Volume 89, Mean Corpuscular Hemoglobin 28.4, Mean Corpuscular Hemoglobin Concent 31.9L, Red Cell Distribution Width 13.8, Platelet Count 316, Mean Platelet Volume 6.2L, Neutrophils (%) (Auto) 79.5H, Lymphocytes (%) (Auto) 14.6L, Monocytes (%) (Auto) 4.4, Eosinophils (%) ( Auto) 1.3, Basophils (%) (Auto) 0.2, Sodium Level 137, Potassium Level 3.5, Chloride Level 94L, Carbon Dioxide Level 37H, Anion Gap 6, Blood Urea Nitrogen 22H, Creatinine 1.0, Estimat Glomerular Filtration Rate , Glucose Level 148H, Calcium Level 8.4L, Pro-B-Type Natriuretic Peptide 1334H, Thyroid Stimulating Hormone (TSH) 1.065, Free Thyroxine 1.16 Current Medications Medications (Trade) Dose Ordered Sig/Wilner Route PRN Reason Start Time Stop Time Status Last Admin Dose Admin Acetaminophen (Tylenol) 650 mg Q4H PRN ORAL Mild - mod Pain/Temp > 100.5 04/03/19 18:15 05/02/19 18:14 04/06/19 15:27 Amlodipine Besylate (Norvasc) 10 mg DAILY ORAL 04/04/19 09:00 05/02/19 08:59 04/06/19 08:59 Ascorbic Acid (Vitamin C) 250 mg DAILY ORAL 04/04/19 09:00 05/01/19 08:59 04/07/19 08:54 Barium Sulfate (Readi-Cat 2) 450 ml NOW PRN ORAL Radiology Procedure 04/06/19 12:00 04/08/19 11:53 Clonazepam (KlonoPIN) 0.5 mg BID ORAL 04/04/19 09:00 04/11/19 08:59 04/07/19 08:53 Dextrose 1,000 ml @ 50 mls/hr Q20H IV 04/04/19 13:06 05/04/19 13:05 04/06/19 12:47 Docusate Sodium (Colace) 100 mg THREE TIMES A DAY ORAL 04/04/19 09:00 05/04/19 08:59 04/07/19 08:54 Dronabinol (Marinol) 2.5 mg BID ORAL 04/04/19 09:00 05/04/19 08:59 04/07/19 08:54 Escitalopram Oxalate (Lexapro) 20 mg DAILY ORAL 04/04/19 09:00 04/30/19 14:02 04/07/19 08:53 Furosemide (Lasix) 40 mg DAILY IV 04/07/19 09:00 05/07/19 08:59 04/07/19 08:53 Heparin Sodium (Porcine) (Heparin 5000 units/ml) 5,000 units EVERY 12 HOURS SUBQ 04/03/19 21:00 04/29/19 09:29 04/07/19 08:56 Hydralazine HCl (Apresoline) 10 mg Q4H PRN IV sbp>150 04/03/19 18:00 04/30/19 17:59 Iohexol (OMNIPAQUE-300 100ml) 100 ml NOW PRN INJ Radiology Procedure 04/06/19 12:00 04/08/19 11:53 Lisinopril (Prinivil) 20 mg DAILY ORAL 04/04/19 09:00 05/02/19 08:59 04/06/19 09:01 Lorazepam (Ativan) 0.5 mg BIDPRN PRN ORAL For Anxiety 04/03/19 18:00 04/10/19 17:59 04/05/19 21:44 Meropenem 1 gm/ Sodium Chloride 110 ml @ 220 mls/hr Q12HR IVPB 04/03/19 21:00 04/09/19 23:59 04/07/19 08:58 Methocarbamol (Robaxin) 500 mg Q6H PRN ORAL muscle spasms 04/03/19 18:00 05/02/19 17:59 04/06/19 02:05 Metoprolol Tartrate (Lopressor) 12.5 mg Q12HR ORAL 04/05/19 09:00 05/05/19 08:59 04/07/19 08:54 Multivitamins (Multivitamins) 1 tab DAILY ORAL 04/04/19 09:00 05/01/19 08:59 04/07/19 08:53 Ondansetron HCl (Zofran) 4 mg Q4H PRN IVP Nausea & Vomiting 04/03/19 18:15 05/01/19 14:14 04/05/19 21:48 Oxycodone HCl (Roxicodone) 5 mg Q6H PRN ORAL Breakthrough Pain 04/03/19 21:30 04/09/19 21:29 04/06/19 21:00 Pantoprazole (Protonix) 40 mg EVERY 12 HOURS IVP 04/03/19 21:00 04/29/19 09:59 04/07/19 08:53 Polyethylene Glycol (Miralax) 17 gm DAILY PRN ORAL Constipation 04/04/19 08:00 05/04/19 07:59 04/04/19 11:29 Pregabalin (Lyrica) 75 mg BID ORAL 04/04/19 09:00 05/04/19 08:59 04/07/19 08:54 Prochlorperazine (Compazine) 10 mg Q6H PRN IVP Nausea & Vomiting 04/06/19 12:15 05/06/19 12:14 Quetiapine Fumarate (SEROqueL) 50 mg QHS ORAL 04/06/19 21:00 05/06/19 20:59 04/06/19 20:46 Tramadol HCl (Ultram) 50 mg Q6H PRN ORAL severe pain 04/03/19 19:30 04/09/19 13:29 04/06/19 15:23 Vancomycin HCl (Vanco rx to dose) 1 ea DAILY PRN MISC Per rx protocol 04/07/19 10:45 05/07/19 10:44 Vancomycin/Sodium Chloride 275 ml @ 183.333 mls/hr Q24H IVPB 04/07/19 13:00 04/12/19 12:59 Rafael Lerma MD Apr 07, 2019 14:07
[2019-04-07] MEDS: Vancomycin 1.25gm/NS Premix IVPB SCH (14:25)
[2019-04-07 16:00] VITALS: BP 95/50
[2019-04-07 20:00] VITALS: BP 103/54
[2019-04-08] VITALS: BP 103/56
[2019-04-08 04:00] VITALS: BP 104/75
[2019-04-08 05:31] LABS: BASOPHILS % (AUTO) 0.4 % (0.0-2.0); EOSINOPHILS % (AUTO) 2.6 % (0.0-3.0); HEMATOCRIT 28.9 % (37.0-47.0); HEMOGLOBIN 9.4 G/DL (12.0-16.0); LYMPHOCYTES % (AUTO) 21.4 % (20.0-45.0); MEAN CORPUSCULAR VOLUME 91 FL (80-99); MONOCYTES % (AUTO) 8.6 % (1.0-10.0); NEUTROPHILS % (AUTO) 67.1 % (45.0-75.0); PLATELET COUNT 302 K/UL (150-450); RED BLOOD COUNT 3.17 M/UL (4.20-5.40); WHITE BLOOD COUNT 12.7 K/UL (4.8-10.8)
[2019-04-08 07:05] LABS: ANION GAP 5 mmol/L (5-15); BLOOD UREA NITROGEN 25 mg/dL (7-18); CALCIUM 8.6 MG/DL (8.5-10.1); CARBON DIOXIDE 37 MMOL/L (21-32); CHLORIDE 97 MMOL/L (98-107); CREATININE 0.9 MG/DL (0.55-1.30); POTASSIUM 3.5 MMOL/L (3.5-5.1); SODIUM 139 MMOL/L (136-145)
--- NOTE | 2019-04-08 07:08 | General Progress Note ---
Assessment/Plan Status: unchanged Assessment/Plan: Assessment/Plan Problems: (1) GERD (gastroesophageal reflux disease) ICD Codes: K21.9 - Gastro-esophageal reflux disease without esophagitis SNOMED: 417276425 (2) Protein-calorie malnutrition, mild ICD Codes: E44.1 - Mild protein-calorie malnutrition SNOMED: 66133011 (3) Anemia ICD Codes: D64.9 - Anemia, unspecified SNOMED: 832151562 Assessment/Plan History of endoscopy and colonoscopy on February 11, 2019 noted with gastritis and one colonic polyp. No plan for any GI procedures at this time given recent history of procedure. will obtain CT given persistent abdominal pain zofran prn, compazine for persistent nausea. Reglan has drug to drug interaction. anemia work up reviewed Fecal occult blood stool to rule out any GI bleed, negative PPI daily Monitor H&H, PRN transfusions Antibiotics per infectious diseases passed swallow eval for puree diet but poor po intake good response to marinol wound care Subjective ROS Limited/Unobtainable: No Allergies: Coded Allergies: [place] (Unverified Allergy, Mild, upset stomach, 02/10/19) TOMATO (Unverified Allergy, Mild, upset stomach, 02/10/19) TETRACYCLINE (Unverified Allergy, Unknown, 07/24/14) Objective Last 24 Hour Vital Signs Date Time Temp Pulse Resp B/P (MAP) Pulse Ox O2 Delivery O2 Flow Rate FiO2 04/08/19 04:00 105 04/08/19 04:00 98.5 105 18 104/75 (85) 98 04/08/19 00:00 113 04/08/19 00:00 98.8 119 19 103/56 (72) 97 04/07/19 22:45 95 Nasal Cannula 2.0 28 04/07/19 21:35 113 103/54 04/07/19 21:00 Nasal Cannula 2.0 04/07/19 20:00 108 04/07/19 20:00 98.9 113 18 103/54 (70) 96 04/07/19 16:00 99 04/07/19 16:00 97.7 98 18 95/50 (65) 94 04/07/19 12:00 95 04/07/19 12:00 97.9 93 20 93/45 (61) 94 04/07/19 09:00 Nasal Cannula 2.0 04/07/19 08:55 105/51 04/07/19 08:55 90 105/51 04/07/19 08:54 90 105/51 04/07/19 08:24 96 Nasal Cannula 2.0 28 04/07/19 08:00 97.9 90 18 105/51 (69) 95 04/07/19 08:00 90 Intake and Output 04/07/19 04/08/19 19:00 07:00 Intake Total 240 ml 457 ml Output Total 1400 ml 900 ml Balance -1160 ml -443 ml Intake Oral 240 ml IV Total 457 ml Output Urine Total 1400 ml 900 ml # Bowel Movements 2 Laboratory Tests 04/08/19 04:36: White Blood Count 12.7H, Red Blood Count 3.17L, Hemoglobin 9.4L, Hematocrit 28.9L, Mean Corpuscular Volume 91, Mean Corpuscular Hemoglobin 29.5, Mean Corpuscular Hemoglobin Concent 32.4, Red Cell Distribution Width 14.0, Platelet Count 302, Mean Platelet Volume 6.3L, Neutrophils (%) (Auto) 67.1, Lymphocytes ( %) (Auto) 21.4, Monocytes (%) (Auto) 8.6, Eosinophils (%) (Auto) 2.6, Basophils (%) (Auto) 0.4, Sodium Level [Pending], Potassium Level [Pending], Chloride Level [Pending], Carbon Dioxide Level [Pending], Blood Urea Nitrogen [Pending], Creatinine [Pending], Estimat Glomerular Filtration Rate [Pending], Glucose Level [Pending], Calcium Level [Pending] Height (Feet): 5 Height (Inches): 4.00 Weight (Pounds): 156 General Appearance: alert EENT: PERRL/EOMI Neck: supple Cardiovascular: normal rate Respiratory/Chest: decreased breath sounds Abdomen: normal bowel sounds, non tender, soft Extremities: non-tender Kapil Arshad MD Apr 08, 2019 07:08
[2019-04-08 08:00] VITALS: BP 100/48
--- NOTE | 2019-04-08 08:56 | Cardiac Electrophysiology PN ---
Assessment/Plan Assessment/Plan 1. Recurrent nonsustained ventricular tachycardia up to 33 beats. Ruled out for VT. The patient's echocardiogram on 03/30/2019 showed ejection fraction 55% to 60%. Increase metoprolol to 25 mg twice a day. Schedule for nuclear stress test. 2. Congestive heart failure with diastolic dysfunction. On Lasix 40 iv daily 3. Hypertension, on amlodipine 10 mg daily, metoprolol 25 mg b.i.d.,Lasix and lisinopril 20 mg daily. The patient is on p.r.n. hydralazine. 4. Sepsis, on broad spectrum IV antibiotics. 5. Severe chronic obstructive pulmonary disease. CHARLEY RN Subjective Subjective Alert in NAD. Had 33 beats of VT last night again. No CP. Has abdominal pain Objective Last 24 Hour Vital Signs Date Time Temp Pulse Resp B/P (MAP) Pulse Ox O2 Delivery O2 Flow Rate FiO2 04/08/19 08:09 92 Nasal Cannula 2.0 28 04/08/19 08:00 97.2 90 18 100/48 (65) 95 04/08/19 04:00 105 04/08/19 04:00 98.5 105 18 104/75 (85) 98 04/08/19 00:00 113 04/08/19 00:00 98.8 119 19 103/56 (72) 97 04/07/19 22:45 95 Nasal Cannula 2.0 28 04/07/19 21:35 113 103/54 04/07/19 21:00 Nasal Cannula 2.0 04/07/19 20:00 108 04/07/19 20:00 98.9 113 18 103/54 (70) 96 04/07/19 16:00 99 04/07/19 16:00 97.7 98 18 95/50 (65) 94 04/07/19 12:00 95 04/07/19 12:00 97.9 93 20 93/45 (61) 94 04/07/19 09:00 Nasal Cannula 2.0 04/07/19 08:55 105/51 04/07/19 08:55 90 105/51 04/07/19 08:54 90 105/51 Intake and Output 04/07/19 04/08/19 19:00 07:00 Intake Total 240 ml 727 ml Output Total 1400 ml 900 ml Balance -1160 ml -173 ml Intake Oral 240 ml 170 ml IV Total 557 ml Output Urine Total 1400 ml 900 ml # Bowel Movements 2 Laboratory Tests Test 04/08/19 04:36 White Blood Count 12.7 K/UL (4.8-10.8) H Red Blood Count 3.17 M/UL (4.20-5.40) L Hemoglobin 9.4 G/DL (12.0-16.0) L Hematocrit 28.9 % (37.0-47.0) L Mean Corpuscular Volume 91 FL (80-99) Mean Corpuscular Hemoglobin 29.5 PG (27.0-31.0) Mean Corpuscular Hemoglobin Concent 32.4 G/DL (32.0-36.0) Red Cell Distribution Width 14.0 % (11.6-14.8) Platelet Count 302 K/UL (150-450) Mean Platelet Volume 6.3 FL (6.5-10.1) L Neutrophils (%) (Auto) 67.1 % (45.0-75.0) Lymphocytes (%) (Auto) 21.4 % (20.0-45.0) Monocytes (%) (Auto) 8.6 % (1.0-10.0) Eosinophils (%) (Auto) 2.6 % (0.0-3.0) Basophils (%) (Auto) 0.4 % (0.0-2.0) Sodium Level 139 MMOL/L (136-145) Potassium Level 3.5 MMOL/L (3.5-5.1) Chloride Level 97 MMOL/L (98-107) L Carbon Dioxide Level 37 MMOL/L (21-32) H Anion Gap 5 mmol/L (5-15) Blood Urea Nitrogen 25 mg/dL (7-18) H Creatinine 0.9 MG/DL (0.55-1.30) Estimat Glomerular Filtration Rate mL/min (>60) Glucose Level 117 MG/DL (74-106) H Calcium Level 8.6 MG/DL (8.5-10.1) Microbiology Date/Time Source Procedure Growth Status 04/06/19 18:25 Indwelling Cath Urine Culture - Preliminary NO GROWTH AFTER 24 HOURS Resulted Objective HEAD AND NECK: Mild JVD. LUNGS: Coarse rhonchi. CARDIOVASCULAR: Regular S1 and S2 with no gallop or murmur and tachycardic. ABDOMEN: Soft. EXTREMITIES: 1+ pitting edema. Lyle Allen MD Apr 08, 2019 08:56
[2019-04-08] MEDS ORDERED: Lexiscan 0.4mg/5ml syringe IV PRN (09:00)
[2019-04-08] MEDS: Lisinopril 20mg tab ORAL SCH (09:00)
--- NOTE | 2019-04-08 09:31 | General Progress Note ---
Assessment/Plan Problem List: (1) Acute and chronic respiratory failure ([id number]) ICD Codes: J96.20 - Acute and chr resp failure, unsp w hypoxia or hypercapnia SNOMED: 32639312 (2) Respiratory failure with hypoxia ICD Codes: J96.91 - Respiratory failure, unspecified with hypoxia SNOMED: 82568835801416252 (3) Gram-negative bacteremia ICD Codes: R78.81 - Bacteremia SNOMED: 672889682271 (4) Severe sepsis ICD Codes: A41.9 - Sepsis, unspecified organism; R65.20 - Severe sepsis without septic shock SNOMED: 62181055 (5) CRISTÓBAL (acute kidney injury) ICD Codes: N17.9 - Acute kidney failure, unspecified SNOMED: 89536049, 6081665, 185622775 (6) UTI (urinary tract infection) ICD Codes: N39.0 - Urinary tract infection, site not specified SNOMED: 54403299, 16567260, 857638692 (7) Hyponatremia ICD Codes: E87.1 - Hypo-osmolality and hyponatremia SNOMED: 34432326 (8) COPD (chronic obstructive pulmonary disease) ICD Codes: J44.9 - Chronic obstructive pulmonary disease, unspecified SNOMED: 14554128 (9) Anemia ICD Codes: D64.9 - Anemia, unspecified SNOMED: 570720283 (10) Anxiety ICD Codes: F41.9 - Anxiety disorder, unspecified SNOMED: 58710668 (11) Hypertension ICD Codes: I10 - Essential (primary) hypertension SNOMED: 29716602 (12) History of breast cancer ICD Codes: Z85.3 - Personal history of malignant neoplasm of breast SNOMED: 102810421 (13) Diastolic CHF ICD Codes: I50.30 - Unspecified diastolic (congestive) heart failure SNOMED: 07290716, 418505718 (14) Hypercholesteremia ICD Codes: E78.00 - Pure hypercholesterolemia, unspecified SNOMED: 06174306 (15) Protein-calorie malnutrition, mild ICD Codes: E44.1 - Mild protein-calorie malnutrition SNOMED: 71066694 Status: not improved, unchanged Assessment/Plan: 78-year-old female with PMHx of COPD on 2L O2, HTN, diastolic CHF, chronic, osteoporosis, IBS-C, DDD, anemia and UTI sent from SNF for fever, lethargy, and congestion. # multiple runs of vtach- most recently 33 beats. r/o HI- Trops negative, EKG ordered. stress test per cardiology #Severe sepsis/ septic shock secondary to pneumonia, ? aspiration ?HCAP vs. UTI , gram negative bacteremia, gram negative UTI. resolving. wbc trending up, cxr worsening congestion, left base infiltrate vs atelectasis. ct abd pelvic, dilated cbd, no stones. Added vancomycin 04/07, wbc now trending down. repeat cxr pending today. abdominal us, gallbladder unremarkable, cbd dilated. GI and surgery to follow up. #Acute on chronic hypoxic respiratory failure- responding to non invasive positive pressure ventilation #CRISTÓBAL- prerenal- resolved, #diastolic CHF, possible acute exacerbation #Hyponatremia- hypovolemic, resolved #COPD on home O2, doubt exacerbation #HTN, HLD #Normocytic Anemia- stable #Anxiety/depression #Mild protein calorie malnutrition #Hypernatremia over the weekend- resolved #persistent nausea and abdominal pain -Stress test per cardiology for ventricular tachycardias -Broad spectrum antibiotics: s/p Zosyn, Vancomycin and Azithromycin. Renal dose. Per ID switch to Amikacin once and meropenem, now also on Vancomycin (-) . ID to follow up reg antibiotics, d/w Dr. Grady, will add vancomycin. Get abd US. repeat cultures. follow up sputum culture. -stop bipap, titrate to keep SpO2 >90% -ID and pulmonary consults appreciated -Repeat Echocardiogram reviewed - Duo-Nebs Q6hr PRN SOB/Wheezing -One time IV lasix 40mg, continue po lasix daily per cards recs - continue home Singulair -Monitor renal function, continue [place], if cr without improvement, renal consult - resume ACEi - resume Amlodipine 10mg PO daily - Metoprolol 12.5 BID, increase to 25 mg bid - resume stain and ASA while npo - resume lyrica 75mg PO BID - resume Lexapro 20mg Po daily, Resume Klonipin and ativan prn. Psychiatry consult with Dr. Stern who know her from [facility]. DC Seroquel - resume Colace 100mg Po BID - resume simethecone 125mg PO TID -Marinol #Goals of care - DNR/DNI, POLST reviewed FENPPx Fluids: 1 L bolus, reassess Diet: soft chew, thin liquid LIQUIDS. DVTPPx: Heparin SBQ q12 GI PPX: PPI IV PT/OT: pending Code status: DNR/DNI, per polst Dispo: Back to SNF pending clinical course I spent 40 minutes on this encounter, 20 minutes spent on counselling and care coordination D/w RN, general surgery: Dr. Orellana, pulmonary: Dr. Lerma, ID: Dr. Grady. Subjective Date patient seen: Apr 08, 2019 ROS Limited/Unobtainable: No Constitutional: Denies: no symptoms, chills, diaphoresis, fever, malaise, weakness, other HEENT: Denies: no symptoms, eye pain, blurred vision, tearing, double vision, ear pain, ear discharge, nose pain, nose congestion, throat pain, throat swelling, mouth pain, mouth swelling, other Cardiovascular: Denies: no symptoms, chest pain, edema, irregular heart rate, lightheadedness, palpitations, syncope, other Respiratory: Denies: no symptoms, cough, orthopnea, shortness of breath, SOB with excertion, SOB at rest, sputum, stridor, wheezing, other Gastrointestinal/Abdominal: Reports: abdominal pain Genitourinary: Denies: no symptoms, burning, discharge, frequency, flank pain, hematuria, incontinence, pain, urgency, other Neurologic/Psychiatric: Denies: no symptoms, anxiety, depressed, emotional problems, headache, numbness, paresthesia, pre-existing deficit, seizure, tingling, tremors, weakness, other Endocrine: Denies: no symptoms, excessive sweating, flushing, intolerance to cold, intolerance to heat, increased hunger, increased thirst, increased urine, unexplained weight gain, unexplained weight loss, other Hematologic/Lymphatic: Denies: no symptoms, anemia, easy bleeding, easy bruising, other Allergies: Coded Allergies: [place] (Unverified Allergy, Mild, upset stomach, 02/10/19) TOMATO (Unverified Allergy, Mild, upset stomach, 02/10/19) TETRACYCLINE (Unverified Allergy, Unknown, 07/24/14) Subjective alert and awake. tolerating diet. has abd pain, ct abdomen with dilated cbd 14mm. wbc trending down after vancomycin added 04/07, afebrile, 33 beats of vtach on tele Objective Last 24 Hour Vital Signs Date Time Temp Pulse Resp B/P (MAP) Pulse Ox O2 Delivery O2 Flow Rate FiO2 04/08/19 08:09 92 Nasal Cannula 2.0 04/08/19 08:00 97.2 90 18 100/48 (65) 95 04/08/19 04:00 105 04/08/19 04:00 98.5 105 18 104/75 (85) 98 04/08/19 00:00 113 04/08/19 00:00 98.8 119 19 103/56 (72) 97 04/07/19 22:45 95 Nasal Cannula 2.0 28 04/07/19 21:35 113 103/54 04/07/19 21:00 Nasal Cannula 2.0 04/07/19 20:00 108 04/07/19 20:00 98.9 113 18 103/54 (70) 96 04/07/19 16:00 99 04/07/19 16:00 97.7 98 18 95/50 (65) 94 04/07/19 12:00 95 04/07/19 12:00 97.9 93 20 93/45 (61) 94 Intake and Output 04/07/19 04/08/19 19:00 07:00 Intake Total 240 ml 727 ml Output Total 1400 ml 900 ml Balance -1160 ml -173 ml Intake Oral 240 ml 170 ml IV Total 557 ml Output Urine Total 1400 ml 900 ml # Bowel Movements 2 Laboratory Tests 04/08/19 04:36: White Blood Count 12.7H, Red Blood Count 3.17L, Hemoglobin 9.4L, Hematocrit 28.9L, Mean Corpuscular Volume 91, Mean Corpuscular Hemoglobin 29.5, Mean Corpuscular Hemoglobin Concent 32.4, Red Cell Distribution Width 14.0, Platelet Count 302, Mean Platelet Volume 6.3L, Neutrophils (%) (Auto) 67.1, Lymphocytes ( %) (Auto) 21.4, Monocytes (%) (Auto) 8.6, Eosinophils (%) (Auto) 2.6, Basophils (%) (Auto) 0.4, Sodium Level 139, Potassium Level 3.5, Chloride Level 97L, Carbon Dioxide Level 37H, Anion Gap 5, Blood Urea Nitrogen 25H, Creatinine 0.9, Estimat Glomerular Filtration Rate , Glucose Level 117H, Calcium Level 8.6 Height (Feet): 5 Height (Inches): 4.00 Weight (Pounds): 156 Objective General Appearance: sleeping, easily arousable, awake Lines, tubes and drains: peripheral HEENT: normocephalic, atraumatic, PERRL, EOMI, no JVD, DRY MM Neck: non-tender, normal alignment, supple Respiratory/Chest: rales and rhonchi Cardiovascular/Chest: tachycardic, regular rhythm, no m/r/g Abdomen: normal bowel sounds, soft, obese, non tender Extremities: normal range of motion, non-tender, normal inspection, moves all ext, no edema Skin Exam: poor turger, refer to photos , stage 2 sacral decub Neurologic: lethargic, unable to assess, moves all four limbs Musculoskeletal: normal muscle bulk, no effusion, atrophy Philipp Moreau M.D. Apr 08, 2019 09:31
[2019-04-08] MEDS: Pantoprazole Inj IVP SCH ×2 (09:44→21:00)
[2019-04-08] MEDS: Meropenem 1 GM in NS 110 ML IVPB SCH ×2 (09:45→21:00)
[2019-04-08] MEDS: Docusate 100mg cap ORAL SCH ×3 (09:45→17:26)
[2019-04-08] MEDS: Metoprolol 25mg tab ORAL SCH ×2 (09:46→21:01)
[2019-04-08] MEDS: clonazePAM 0.5mg tab ORAL SCH ×2 (09:46→17:26)
[2019-04-08] MEDS: Dronabinol 2.5mg Cap ORAL SCH ×2 (09:48→17:27)
[2019-04-08] MEDS: Lyrica 75mg cap ORAL SCH ×2 (09:48→17:27)
[2019-04-08] MEDS: Ascorbic Acid 500mg tab ORAL SCH (09:49)
[2019-04-08] MEDS: Heparin 5000 units/ml inj SUBQ SCH ×2 (09:51→21:03)
--- NOTE | 2019-04-08 10:12 | Diagnostic Imaging Report ---
Indication: Dyspnea Comparison: 04/07/2019 A single view chest radiograph was obtained. Findings: There is enlargement of the cardiac silhouette with pulmonary vascular redistribution and prominence, hazy vessel margins and the suggestion of interstitial edema consistent with CHF. There is a left pleural effusion suspected. Underlying pneumonia or atelectasis is possible. Bones are osteopenic. Surgical clips in the right axilla and mediastinum noted. IMPRESSION: Worsening pulmonary edema
--- NOTE | 2019-04-08 10:15 | Diagnostic Imaging Report ---
Indication: Dyspnea Comparison: 04/05/2019 A single view chest radiograph was obtained. Findings: Vascular and interstitial prominence demonstrated consistent with CHF. Findings appear unchanged. There is a left pleural effusion suspected. There is a dense opacification of the left retrocardiac parenchyma which may be due to underlying pneumonia or atelectasis. IMPRESSION: No change from the prior exam
[2019-04-08] MEDS ORDERED: Tubing IV Secondary IV ONE (10:57)
[2019-04-08] MEDS: traMADol 50mg tab ORAL PRN (11:18)
--- NOTE | 2019-04-08 11:41 | Pulmonology Progress Note ---
Assessment/Plan Problems: (1) UTI (urinary tract infection) Assessment & Plan: E coli (2) Sepsis with acute hypoxic respiratory failure (3) CRISTÓBAL (acute kidney injury) (4) COPD (chronic obstructive pulmonary disease) (5) Anemia (6) Anxiety (7) Hypercholesteremia (8) Hyponatremia (9) Acute and chronic respiratory failure ([id number]) (10) Hypertension (11) Protein-calorie malnutrition, mild Assessment/Plan ASSESSMENT: The patient is a 78-year-old female with history of COPD, CHF with diastolic dysfunction, GERD, anemia, hypertension, hyperlipidemia, IBS, shelter resident with pulsating comfort measures only and DNR, presenting with altered mental status, hypertension, likely secondary to UTI with urosepsis and hypoxemia secondary to above. PROBLEM LIST: 1. Hypoxemia likely secondary to urosepsis. 2. E coli UTI and GNR sepsis 3. COPD. 4. Home O2 dependence. 5. CHF with diastolic dysfunction. 6. CRISTÓBAL with hyponatremia. 7. Anemia. 8. Recent admission for gastritis. 9. Hypertension, hyperlipidemia, GERD, IBS. 10. DNAR, PULSE comfort measures only. TREATMENT PLAN: 1. Titrate on FiO2 to keep saturations greater than 90%. 2. F/U cards recs 3. Abx per ID 4. Monitor volumes and renal function 5. Diet per PATTERN CHECKER with ASPIRATION precautions 6. Monitor mental status. 7. DVT prophylaxis, heparin subcutaneous. 8. The patient is DNAR, and has a POLST: comfort measures only, we will need to discuss further goals of care. Subjective Allergies: Coded Allergies: [place]n (Unverified Allergy, Mild, upset stomach, 02/10/19) TOMATO (Unverified Allergy, Mild, upset stomach, 02/10/19) TETRACYCLINE (Unverified Allergy, Unknown, 07/24/14) Subjective Had NSVT ON otherwise AFVSS, O2 needs stable, WCt 12, no cough, no SOB, no FC Objective Last 24 Hour Vital Signs Date Time Temp Pulse Resp B/P (MAP) Pulse Ox O2 Delivery O2 Flow Rate FiO2 04/08/19 09:46 90 100/48 04/08/19 09:00 100/48 04/08/19 09:00 90 100/48 04/08/19 08:09 92 Nasal Cannula 2.0 28 04/08/19 08:00 97.2 90 18 100/48 (65) 95 04/08/19 08:00 90 04/08/19 04:00 105 04/08/19 04:00 98.5 105 18 104/75 (85) 98 04/08/19 00:00 113 04/08/19 00:00 98.8 119 19 103/56 (72) 97 04/07/19 22:45 95 Nasal Cannula 2.0 28 04/07/19 21:35 113 103/54 04/07/19 21:00 Nasal Cannula 2.0 04/07/19 20:00 108 04/07/19 20:00 98.9 113 18 103/54 (70) 96 04/07/19 16:00 99 04/07/19 16:00 97.7 98 18 95/50 (65) 94 04/07/19 12:00 95 04/07/19 12:00 97.9 93 20 93/45 (61) 94 Intake and Output 04/07/19 04/08/19 18:59 06:59 Intake Total 290 ml 677 ml Output Total 1400 ml 900 ml Balance -1110 ml -223 ml Intake Oral 240 ml 170 ml IV Total 50 ml 507 ml Output Urine Total 1400 ml 900 ml # Bowel Movements 2 General Appearance: no acute distress, cachetic HEENT: normocephalic, atraumatic, anicteric, mucous membranes moist Respiratory/Chest: chest wall non-tender, lungs clear, normal breath sounds, no respiratory distress, no accessory muscle use Cardiovascular: normal peripheral pulses, normal rate, regular rhythm Abdomen: normal bowel sounds, soft, non tender, no organomegaly, non distended , no mass Extremities: no cyanosis, no clubbing, no edema Microbiology Date/Time Source Procedure Growth Status 04/07/19 06:00 Sputum Expectorated Gram Stain - Final Resulted 04/07/19 06:00 Sputum Expectorated Sputum Culture Pending Resulted 04/06/19 18:25 Indwelling Cath Urine Culture - Preliminary NO GROWTH AFTER 24 HOURS Resulted Laboratory Tests 04/08/19 04:36: White Blood Count 12.7H, Red Blood Count 3.17L, Hemoglobin 9.4L, Hematocrit 28.9L, Mean Corpuscular Volume 91, Mean Corpuscular Hemoglobin 29.5, Mean Corpuscular Hemoglobin Concent 32.4, Red Cell Distribution Width 14.0, Platelet Count 302, Mean Platelet Volume 6.3L, Neutrophils (%) (Auto) 67.1, Lymphocytes ( %) (Auto) 21.4, Monocytes (%) (Auto) 8.6, Eosinophils (%) (Auto) 2.6, Basophils (%) (Auto) 0.4, Sodium Level 139, Potassium Level 3.5, Chloride Level 97L, Carbon Dioxide Level 37H, Anion Gap 5, Blood Urea Nitrogen 25H, Creatinine 0.9, Estimat Glomerular Filtration Rate , Glucose Level 117H, Calcium Level 8.6 Current Medications Medications (Trade) Dose Ordered Sig/Wilner Route PRN Reason Start Time Stop Time Status Last Admin Dose Admin Acetaminophen (Tylenol) 650 mg Q4H PRN ORAL Mild - mod Pain/Temp > 100.5 04/03/19 18:15 05/02/19 18:14 04/06/19 15:27 Amlodipine Besylate (Norvasc) 10 mg DAILY ORAL 04/04/19 09:00 05/02/19 08:59 04/06/19 08:59 Ascorbic Acid (Vitamin C) 250 mg DAILY ORAL 04/04/19 09:00 05/01/19 08:59 04/08/19 09:49 Barium Sulfate (Readi-Cat 2) 450 ml NOW PRN ORAL Radiology Procedure 04/06/19 12:00 04/08/19 11:53 Clonazepam (KlonoPIN) 0.5 mg BID ORAL 04/04/19 09:00 04/11/19 08:59 04/08/19 09:46 Dextrose 1,000 ml @ 50 mls/hr Q20H IV 04/04/19 13:06 05/04/19 13:05 04/07/19 21:34 Docusate Sodium (Colace) 100 mg THREE TIMES A DAY ORAL 04/04/19 09:00 05/04/19 08:59 04/08/19 09:45 Dronabinol (Marinol) 2.5 mg BID ORAL 04/04/19 09:00 05/04/19 08:59 04/08/19 09:48 Escitalopram Oxalate (Lexapro) 20 mg DAILY ORAL 04/04/19 09:00 04/30/19 14:02 04/08/19 09:46 Furosemide (Lasix) 40 mg DAILY IV 04/07/19 09:00 05/07/19 08:59 04/08/19 09:44 Heparin Sodium (Porcine) (Heparin 5000 units/ml) 5,000 units EVERY 12 HOURS SUBQ 04/03/19 21:00 04/29/19 09:29 04/08/19 09:51 Hydralazine HCl (Apresoline) 10 mg Q4H PRN IV sbp>150 04/03/19 18:00 04/30/19 17:59 Iohexol (OMNIPAQUE-300 100ml) 100 ml NOW PRN INJ Radiology Procedure 04/06/19 12:00 04/08/19 11:53 Lisinopril (Prinivil) 20 mg DAILY ORAL 04/04/19 09:00 05/02/19 08:59 04/06/19 09:01 Lorazepam (Ativan) 0.5 mg BIDPRN PRN ORAL For Anxiety 04/03/19 18:00 04/10/19 17:59 04/05/19 21:44 Meropenem 1 gm/ Sodium Chloride 110 ml @ 220 mls/hr Q12HR IVPB 04/03/19 21:00 04/09/19 23:59 04/08/19 09:45 Methocarbamol (Robaxin) 500 mg Q6H PRN ORAL muscle spasms 04/03/19 18:00 05/02/19 17:59 04/06/19 02:05 Metoprolol Tartrate (Lopressor) 25 mg Q12HR ORAL 04/08/19 09:00 05/05/19 08:59 04/08/19 09:46 Multivitamins (Multivitamins) 1 tab DAILY ORAL 04/04/19 09:00 05/01/19 08:59 04/08/19 09:48 Ondansetron HCl (Zofran) 4 mg Q4H PRN IVP Nausea & Vomiting 04/03/19 18:15 05/01/19 14:14 04/05/19 21:48 Oxycodone HCl (Roxicodone) 5 mg Q6H PRN ORAL Breakthrough Pain 04/03/19 21:30 04/09/19 21:29 04/06/19 21:00 Pantoprazole (Protonix) 40 mg EVERY 12 HOURS IVP 04/03/19 21:00 04/29/19 09:59 04/08/19 09:44 Polyethylene Glycol (Miralax) 17 gm DAILY PRN ORAL Constipation 04/04/19 08:00 05/04/19 07:59 04/04/19 11:29 Pregabalin (Lyrica) 75 mg BID ORAL 04/04/19 09:00 05/04/19 08:59 04/08/19 09:48 Prochlorperazine (Compazine) 10 mg Q6H PRN IVP Nausea & Vomiting 04/06/19 12:15 05/06/19 12:14 Regadenoson (Lexiscan) 0.4 mg ONCE PRN IV stress test 04/08/19 09:00 04/11/19 23:59 Tramadol HCl (Ultram) 50 mg Q6H PRN ORAL severe pain 04/03/19 19:30 04/09/19 13:29 04/08/19 11:18 Vancomycin HCl (Vanco rx to dose) 1 ea DAILY PRN MISC Per rx protocol 04/07/19 10:45 05/07/19 10:44 Vancomycin/Sodium Chloride 275 ml @ 183.333 mls/hr Q24H IVPB 04/07/19 13:00 04/12/19 12:59 04/07/19 14:25 Rafael Lerma MD Apr 08, 2019 11:41
[2019-04-08 12:00] VITALS: BP 103/40
[2019-04-08] MEDS: Vancomycin 1.25gm/NS Premix IVPB SCH (12:17)
--- NOTE | 2019-04-08 14:35 | Infectious Diseases Prog Note ---
Assessment/Plan Assessment/Plan ASSESSMENT AND PLAN: 1. e.coli uti/pyelonephritis with bacteremia, sepsis, leukocytosis, fevers, ? HCAP/aspiration pna vs atx, pulmonary edema ? cholecystitis - ct noted, us without cholecystitis - meropenem - day # 9, vancomycin added for mrsa coverage - f/u on cultures, labs and chest x-ray - case d/w Dr. Moreau yesterday 2. Acute kidney injury with elevated creatinine. 3. IBS 4. Congestive heart failure and edema - sob better 5. Hypertension. 6. Hyperlipidemia. 7. Blood pressure treatment per primary care team for hypertension. 8. Anemia. 9. Chronic obstructive pulmonary disease. 10. Gastroesophageal reflux disease. 11. Chronic obstructive pulmonary disease and congestive heart failure treatment per primary care team. 12. IBS. 13. Encephalopathy. 14. Gastritis. 15. Anxiety. 16. Hypercholesterolemia and dyslipidemia. 17. Breast cancer. 18. Malnutrition history. 19. Allergies to oranges, tetracycline, and tomatoes. 20. Social history is negative. 21. Family history is noncontributory. 22. MAR is noted. 23. Case was discussed with RN. 24. Skin care protocol. 25. Continue treatment per primary consultants and CAYETANO care. 26. Orders were noted and entered. 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 28. time spent - 35 minutes Subjective Constitutional: Reports: fatigue; Denies: fever, chills, drenching sweats HEENT: Denies: congestion Respiratory: Denies: shortness of breath Cardiovascular: Denies: chest pain Gastrointestinal/Abdominal: Denies: nausea, vomiting, diarrhea Genitourinary: Reports: other - + shi Neurologic: Reports: other; Denies: headache Psychiatric: Denies: depression Skin: Denies: rash Hematologic: Denies: bleeding Musculoskeletal: Denies: pain Allergies: Coded Allergies: [place] (Unverified Allergy, Mild, upset stomach, 02/10/19) TOMATO (Unverified Allergy, Mild, upset stomach, 02/10/19) TETRACYCLINE (Unverified Allergy, Unknown, 07/24/14) Objective Vital Signs Last 24 Hour Vital Signs Date Time Temp Pulse Resp B/P (MAP) Pulse Ox O2 Delivery O2 Flow Rate FiO2 04/08/19 12:00 95 04/08/19 12:00 97.2 96 18 103/40 (61) 95 04/08/19 09:46 90 100/48 04/08/19 09:00 100/48 04/08/19 09:00 90 100/48 04/08/19 09:00 Nasal Cannula 2.0 04/08/19 08:09 92 Nasal Cannula 2.0 28 04/08/19 08:00 97.2 90 18 100/48 (65) 95 04/08/19 08:00 90 04/08/19 04:00 105 04/08/19 04:00 98.5 105 18 104/75 (85) 98 04/08/19 00:00 113 04/08/19 00:00 98.8 119 19 103/56 (72) 97 04/07/19 22:45 95 Nasal Cannula 2.0 28 04/07/19 21:35 113 103/54 04/07/19 21:00 Nasal Cannula 2.0 04/07/19 20:00 108 04/07/19 20:00 98.9 113 18 103/54 (70) 96 04/07/19 16:00 99 04/07/19 16:00 97.7 98 18 95/50 (65) 94 Height (Feet): 5 Height (Inches): 4.00 Weight (Pounds): 156 General Appearance: no acute distress HEENT: normocephalic, atraumatic, anicteric, mucous membranes moist Respiratory/Chest: no respiratory distress, no accessory muscle use, crackles/ rales, rhonchi - bilaterally Cardiovascular: normal rate, regular rhythm, no gallop/murmur, no JVD Abdomen: normal bowel sounds, soft, non tender, no organomegaly, non distended Genitourinary: other - no shi Extremities: no cyanosis Skin: no rash, no ulcers Neurologic/Psychiatric: alert, responsive Lymphatic: no neck adenopathy Musculoskeletal: no effusion Objective Chest x-ray - 03/31/19 - Procedure: XRAY Chest 1v Indication: Dyspnea Comparison: 03/30/2019 A single view chest radiograph was obtained. Findings: Increasing airspace disease in the right upper lobe noted as well as at both lung bases. The heart is mildly enlarged. The interstitium and pulmonary vascularity also appear prominent. IMPRESSION: Worsening airspace disease probably on the basis of congestive heart failure. Correlate clinically 04/05/19 - chest x-ray - Comparison: 03/31/2019 A single view chest radiograph was obtained. Findings: Interstitial densities noted diffusely with prominent vascularity and heart size consistent with pulmonary edema. There is a confluent density that has developed at the left lung base likely in part due to presence of a pleural effusion. Atelectasis suspected at the left lung base versus pneumonia which appears new. Surgical clips in the right axilla again noted. IMPRESSION: Interstitial edema/CHF. Suspected left pleural effusion. Suspected left basilar pneumonia versus atelectasis CT abdomen and pelvis: IMPRESSION: 1. Moderate stool ball within the rectum. Correlate for impaction. 2. Dilated biliary tree, common bile duct measuring 1.4 cm. No obstructing stone or mass. 3. Moderate to severe right hydronephrosis which is favored chronic with a few stones layering dependently in the renal pelvis. No ureteral dilatation. 4. Leiomyomatous uterus. Abdominal US: IMPRESSION: 1. Nonspecific biliary dilatation. 2. No sonographic evidence of acute cholecystitis. 3. Severe right hydronephrosis without definite stone identified. Nonobstructing 5 mm left renal stone. 4. Mild prominence of the bladder wall is nonspecific and may be secondary to underdistention. Further evaluation could be performed with urinalysis if clinically indicated. Chest x-ray - 04/08/19 - Procedure: XRAY Chest 1v Indication: Dyspnea Cehst Comparison: 04/05/2019 A single view chest radiograph was obtained. Findings: Vascular and interstitial prominence demonstrated consistent with CHF. Findings appear unchanged. There is a left pleural effusion suspected. There is a dense opacification of the left retrocardiac parenchyma which may be due to underlying pneumonia or atelectasis. IMPRESSION: No change from the prior exam Microbiology Date/Time Source Procedure Growth Status 04/01/19 03:45 Blood Blood Culture - Final NO GROWTH AFTER 5 DAYS Complete 04/07/19 06:00 Sputum Expectorated Gram Stain - Final Resulted 04/07/19 06:00 Sputum Expectorated Sputum Culture Pending Resulted 04/06/19 18:25 Indwelling Cath Urine Culture - Preliminary NO GROWTH AFTER 24 HOURS Resulted 03/30/19 06:00 Rectum - Final NO CARBAPENEM-RESISTANT ENTEROBACTERI... Complete Microbiology Date/Time Source Procedure Growth Status 04/07/19 06:00 Sputum Expectorated Gram Stain - Final Resulted 04/07/19 06:00 Sputum Expectorated Sputum Culture Pending Resulted 04/06/19 18:25 Indwelling Cath Urine Culture - Preliminary NO GROWTH AFTER 24 HOURS Resulted Laboratory Tests Test 04/08/19 04:36 White Blood Count 12.7 K/UL (4.8-10.8) H Red Blood Count 3.17 M/UL (4.20-5.40) L Hemoglobin 9.4 G/DL (12.0-16.0) L Hematocrit 28.9 % (37.0-47.0) L Mean Corpuscular Volume 91 FL (80-99) Mean Corpuscular Hemoglobin 29.5 PG (27.0-31.0) Mean Corpuscular Hemoglobin Concent 32.4 G/DL (32.0-36.0) Red Cell Distribution Width 14.0 % (11.6-14.8) Platelet Count 302 K/UL (150-450) Mean Platelet Volume 6.3 FL (6.5-10.1) L Neutrophils (%) (Auto) 67.1 % (45.0-75.0) Lymphocytes (%) (Auto) 21.4 % (20.0-45.0) Monocytes (%) (Auto) 8.6 % (1.0-10.0) Eosinophils (%) (Auto) 2.6 % (0.0-3.0) Basophils (%) (Auto) 0.4 % (0.0-2.0) Sodium Level 139 MMOL/L (136-145) Potassium Level 3.5 MMOL/L (3.5-5.1) Chloride Level 97 MMOL/L (98-107) L Carbon Dioxide Level 37 MMOL/L (21-32) H Anion Gap 5 mmol/L (5-15) Blood Urea Nitrogen 25 mg/dL (7-18) H Creatinine 0.9 MG/DL (0.55-1.30) Estimat Glomerular Filtration Rate mL/min (>60) Glucose Level 117 MG/DL (74-106) H Calcium Level 8.6 MG/DL (8.5-10.1) Current Medications Medications (Trade) Dose Ordered Sig/Wilner Route PRN Reason Start Time Stop Time Status Last Admin Dose Admin Acetaminophen (Tylenol) 650 mg Q4H PRN ORAL Mild - mod Pain/Temp > 100.5 04/03/19 18:15 05/02/19 18:14 04/06/19 15:27 Amlodipine Besylate (Norvasc) 10 mg DAILY ORAL 04/04/19 09:00 05/02/19 08:59 04/06/19 08:59 Ascorbic Acid (Vitamin C) 250 mg DAILY ORAL 04/04/19 09:00 05/01/19 08:59 04/08/19 09:49 Clonazepam (KlonoPIN) 0.5 mg BID ORAL 04/04/19 09:00 04/11/19 08:59 04/08/19 09:46 Dextrose 1,000 ml @ 50 mls/hr Q20H IV 04/04/19 13:06 05/04/19 13:05 04/08/19 14:14 Docusate Sodium (Colace) 100 mg THREE TIMES A DAY ORAL 04/04/19 09:00 05/04/19 08:59 04/08/19 12:17 Dronabinol (Marinol) 2.5 mg BID ORAL 04/04/19 09:00 05/04/19 08:59 04/08/19 09:48 Escitalopram Oxalate (Lexapro) 20 mg DAILY ORAL 04/04/19 09:00 04/30/19 14:02 04/08/19 09:46 Furosemide (Lasix) 40 mg DAILY IV 04/07/19 09:00 05/07/19 08:59 04/08/19 09:44 Heparin Sodium (Porcine) (Heparin 5000 units/ml) 5,000 units EVERY 12 HOURS SUBQ 04/03/19 21:00 04/29/19 09:29 04/08/19 09:51 Hydralazine HCl (Apresoline) 10 mg Q4H PRN IV sbp>150 04/03/19 18:00 04/30/19 17:59 Lisinopril (Prinivil) 20 mg DAILY ORAL 04/04/19 09:00 05/02/19 08:59 04/06/19 09:01 Lorazepam (Ativan) 0.5 mg BIDPRN PRN ORAL For Anxiety 04/03/19 18:00 04/10/19 17:59 04/05/19 21:44 Meropenem 1 gm/ Sodium Chloride 110 ml @ 220 mls/hr Q12HR IVPB 04/03/19 21:00 04/09/19 23:59 04/08/19 09:45 Methocarbamol (Robaxin) 500 mg Q6H PRN ORAL muscle spasms 04/03/19 18:00 05/02/19 17:59 04/06/19 02:05 Metoprolol Tartrate (Lopressor) 25 mg Q12HR ORAL 04/08/19 09:00 05/05/19 08:59 04/08/19 09:46 Multivitamins (Multivitamins) 1 tab DAILY ORAL 04/04/19 09:00 05/01/19 08:59 04/08/19 09:48 Ondansetron HCl (Zofran) 4 mg Q4H PRN IVP Nausea & Vomiting 04/03/19 18:15 05/01/19 14:14 04/05/19 21:48 Oxycodone HCl (Roxicodone) 5 mg Q6H PRN ORAL Breakthrough Pain 04/03/19 21:30 04/09/19 21:29 04/06/19 21:00 Pantoprazole (Protonix) 40 mg EVERY 12 HOURS IVP 04/03/19 21:00 04/29/19 09:59 04/08/19 09:44 Polyethylene Glycol (Miralax) 17 gm DAILY PRN ORAL Constipation 04/04/19 08:00 05/04/19 07:59 04/04/19 11:29 Pregabalin (Lyrica) 75 mg BID ORAL 04/04/19 09:00 05/04/19 08:59 04/08/19 09:48 Prochlorperazine (Compazine) 10 mg Q6H PRN IVP Nausea & Vomiting 04/06/19 12:15 05/06/19 12:14 Regadenoson (Lexiscan) 0.4 mg ONCE PRN IV stress test 04/08/19 09:00 04/11/19 23:59 Tramadol HCl (Ultram) 50 mg Q6H PRN ORAL severe pain 04/03/19 19:30 04/09/19 13:29 04/08/19 11:18 Vancomycin HCl (Vanco rx to dose) 1 ea DAILY PRN MISC Per rx protocol 04/07/19 10:45 05/07/19 10:44 Vancomycin/Sodium Chloride 275 ml @ 183.333 mls/hr Q24H IVPB 04/07/19 13:00 04/12/19 12:59 04/08/19 12:17 Nyasia Grover MD Apr 08, 2019 14:35
[2019-04-08 16:00] VITALS: BP 119/67
--- NOTE | 2019-04-08 16:29 | Surgery Progress Note ---
Surgery Progress Note Subjective Additional Comments Patient seen and examined bedside. No acute events. Leukocytosis improving. Exam much improved. Today she is awake alert and says that she feels okay but does have some nominal discomfort mainly in the epigastric region. No nausea vomiting fever chills. Tolerating diet. Objective Last 24 Hour Vital Signs Date Time Temp Pulse Resp B/P (MAP) Pulse Ox O2 Delivery O2 Flow Rate FiO2 04/08/19 12:00 95 04/08/19 12:00 97.2 96 18 103/40 (61) 95 04/08/19 09:46 90 100/48 04/08/19 09:00 100/48 04/08/19 09:00 90 100/48 04/08/19 09:00 Nasal Cannula 2.0 04/08/19 08:09 92 Nasal Cannula 2.0 28 04/08/19 08:00 97.2 90 18 100/48 (65) 95 04/08/19 08:00 90 04/08/19 04:00 105 04/08/19 04:00 98.5 105 18 104/75 (85) 98 04/08/19 00:00 113 04/08/19 00:00 98.8 119 19 103/56 (72) 97 04/07/19 22:45 95 Nasal Cannula 2.0 28 04/07/19 21:35 113 103/54 04/07/19 21:00 Nasal Cannula 2.0 04/07/19 20:00 108 04/07/19 20:00 98.9 113 18 103/54 (70) 96 I&O Intake and Output 04/07/19 04/08/19 19:00 07:00 Intake Total 240 ml 727 ml Output Total 1400 ml 900 ml Balance -1160 ml -173 ml Intake Oral 240 ml 170 ml IV Total 557 ml Output Urine Total 1400 ml 900 ml # Bowel Movements 2 Dressing: other Wound: other Drains: other Cardiovascular: RSR Respiratory: decreased breath sounds Abdomen: soft, present bowel sounds, non-distended Extremities: no tenderness, no cyanosis, other Laboratory Tests Test 04/08/19 04:36 White Blood Count 12.7 K/UL (4.8-10.8) H Red Blood Count 3.17 M/UL (4.20-5.40) L Hemoglobin 9.4 G/DL (12.0-16.0) L Hematocrit 28.9 % (37.0-47.0) L Mean Corpuscular Volume 91 FL (80-99) Mean Corpuscular Hemoglobin 29.5 PG (27.0-31.0) Mean Corpuscular Hemoglobin Concent 32.4 G/DL (32.0-36.0) Red Cell Distribution Width 14.0 % (11.6-14.8) Platelet Count 302 K/UL (150-450) Mean Platelet Volume 6.3 FL (6.5-10.1) L Neutrophils (%) (Auto) 67.1 % (45.0-75.0) Lymphocytes (%) (Auto) 21.4 % (20.0-45.0) Monocytes (%) (Auto) 8.6 % (1.0-10.0) Eosinophils (%) (Auto) 2.6 % (0.0-3.0) Basophils (%) (Auto) 0.4 % (0.0-2.0) Sodium Level 139 MMOL/L (136-145) Potassium Level 3.5 MMOL/L (3.5-5.1) Chloride Level 97 MMOL/L (98-107) L Carbon Dioxide Level 37 MMOL/L (21-32) H Anion Gap 5 mmol/L (5-15) Blood Urea Nitrogen 25 mg/dL (7-18) H Creatinine 0.9 MG/DL (0.55-1.30) Estimat Glomerular Filtration Rate mL/min (>60) Glucose Level 117 MG/DL (74-106) H Calcium Level 8.6 MG/DL (8.5-10.1) Plan Problems: (1) Leukocytosis Assessment & Plan: leukocytosis fluctuating labs noted exam stable Abx as per ID cont IV abx CT noted reviewed. Unlikely etiology of leukocytosis dilated biliary tract without obstruction. Will monitor. 1. Moderate stool ball within the rectum. Correlate for impaction. 2. Dilated biliary tree, common bile duct measuring 1.4 cm. No obstructing stone or mass. 3. Moderate to severe right hydronephrosis which is favored chronic with a few stones layering dependently in the renal pelvis. No ureteral dilatation. 4. Leiomyomatous uterus. 1. Nonspecific biliary dilatation. 2. No sonographic evidence of acute cholecystitis. 3. Severe right hydronephrosis without definite stone identified. Nonobstructing 5 mm left renal stone. 4. Mild prominence of the bladder wall is nonspecific and may be secondary to underdistention. Further evaluation could be performed with urinalysis if clinically indicated. improving comfortable PPI tums trend labs (2) Decubitus skin ulcer Assessment & Plan: Pt presented on admission with moisture intertrigo R and L breasts. both breast folds are erythematous with denuded skin . DTPI noted to Upper R buttocks. Base of wound is maroon is indurated and elongated with surrounding non-blanching erythema. (L)1cm x (W)4cm. Both heels are soft pink and blanchable.No other skin concerns noted. stable Pt presented on admission with DTPI R sacrum which has now evolved into a full thickness pressure injury. Base of wound is moist with 20% slough, 80% granular. Periwound is pink and non-tender when palpated.(L)3cm x (W)1.8cm. Moisture Intertrigo both breasts resolving .Less erythema noted. Both heels are soft but easily blanches. Tx.Plan: Apply Hydraguard Silicone cream to R and L breasts Daily. Cleanse R sacral wound with saline. Apply TheraHoney. Apply Moisture Barrier periwound. Cover with Optifoam drsg. Change every 3days and prn. Apply Cavilon Skin Barrier to both heels. Cover each heels with Optifoam drsg. Change every 7 days and prn. APM/MARCUS Mattress overlay. Reposition at least every 2hours or as tolerated. Off-load heels with pillow. (3) Limited mobility (4) Constipation (5) Protein-calorie malnutrition, mild Assessment & Plan: DAILY ESTIMATED NEEDS: Needs based on Wound, cardiac, pulmonary, 46kg 25-30 kcals/kg 6107-9559 total kcals 1.25-1.5 g protein/kg 58-69 g total protein 25-30 mL/kg 9200-7737 total fluid mLs NUTRITION DIAGNOSIS: * Increased kcal/prot needs R/T wound healing as evidenced by pt admitted w/ DTPI R sacrum wound-> now evolved into full thickness wound. (UPDATED) * Swallowing difficulty R/T dysphagia as evidenced by pt on liquify pureed, NTL, w/ poor and variable PO intake-> texture now advanced to soft easy chew w/ thin liquids, cont w/ poor PO intake. (UPDATED) CURRENT DIET:LOW NA/ SOFT EASY CHEW W/ THIN LIQUIDS + ENSURE TID PO DIET RECOMMENDATIONS: Liberalized REGULAR w/ poor PO (texture per LOW VISION THERAPIST) + Ensure TID ADDITIONAL RECOMMENDATIONS: * Per SNF record, ht=57", [id number]=[id number]. * Wound healing: Continue MVI x 1, Vit C 250mg QD : add ZnSO4 220mg qd X 10 DAYS : Edilberto 1pkt BID as tolerated * Igor count x 72 hrs completed- INADEQUATE PO INTAKE * W/ continued nausea- consider giving Zofran ~30 mins prior to meal times * Monitor lytes closely w/ lasix, replete as needed Robert Orellana Apr 08, 2019 16:29
[2019-04-08 20:00] VITALS: BP 118/62
[2019-04-09] VITALS: BP 107/62
[2019-04-09 04:00] VITALS: BP 111/69
[2019-04-09 07:59] LABS: BASOPHILS % (AUTO) 0.3 % (0.0-2.0); EOSINOPHILS % (AUTO) 2.7 % (0.0-3.0); HEMATOCRIT 29.2 % (37.0-47.0); HEMOGLOBIN 9.4 G/DL (12.0-16.0); LYMPHOCYTES % (AUTO) 21.9 % (20.0-45.0); MEAN CORPUSCULAR VOLUME 90 FL (80-99); MONOCYTES % (AUTO) 7.2 % (1.0-10.0); NEUTROPHILS % (AUTO) 67.9 % (45.0-75.0); PLATELET COUNT 373 K/UL (150-450); RED BLOOD COUNT 3.25 M/UL (4.20-5.40); RED CELL DISTRIBUTION WIDTH 14.2 % (11.6-14.8); WHITE BLOOD COUNT 11.7 K/UL (4.8-10.8)
[2019-04-09 08:00] VITALS: BP 123/61
[2019-04-09] MEDS: clonazePAM 0.5mg tab ORAL SCH ×2 (08:24→17:15)
[2019-04-09] MEDS: Zinc Sulfate 220mg cap ORAL SCH (08:25)
[2019-04-09] MEDS: Dronabinol 2.5mg Cap ORAL SCH ×2 (08:25→17:16)
[2019-04-09] MEDS: Lyrica 75mg cap ORAL SCH ×2 (08:25→17:15)
[2019-04-09] MEDS: Lisinopril 20mg tab ORAL SCH (08:25)
[2019-04-09] MEDS: Docusate 100mg cap ORAL SCH ×3 (08:25→17:15)
[2019-04-09 08:26] LABS: ANION GAP 5 mmol/L (5-15); BLOOD UREA NITROGEN 21 mg/dL (7-18); CALCIUM 9.3 MG/DL (8.5-10.1); CARBON DIOXIDE 35 MMOL/L (21-32); CHLORIDE 97 MMOL/L (98-107); CREATININE 0.7 MG/DL (0.55-1.30); POTASSIUM 3.6 MMOL/L (3.5-5.1); SODIUM 137 MMOL/L (136-145)
[2019-04-09] MEDS: Metoprolol 25mg tab ORAL SCH ×2 (08:26→21:00)
[2019-04-09] MEDS: Heparin 5000 units/ml inj SUBQ SCH ×3 (08:26→20:56)
[2019-04-09] MEDS: Meropenem 1 GM in NS 110 ML IVPB SCH ×2 (09:00→20:47)
[2019-04-09] MEDS: Pantoprazole Inj IVP SCH ×2 (09:00→20:45)
[2019-04-09] MEDS: Ascorbic Acid 500mg tab ORAL SCH (09:17)
[2019-04-09 12:00] VITALS: BP 124/58
[2019-04-09] MEDS: Vancomycin 1.25gm/NS Premix IVPB SCH (12:52)
[2019-04-09] MEDS: oxyCODONE 5mg IR tab ORAL PRN ×2 (13:10→20:55)
--- NOTE | 2019-04-09 14:12 | Surgery Progress Note ---
Surgery Progress Note Subjective Symptoms: improved Objective Last 24 Hour Vital Signs Date Time Temp Pulse Resp B/P (MAP) Pulse Ox O2 Delivery O2 Flow Rate FiO2 04/09/19 12:00 97.7 88 17 124/58 (80) 96 04/09/19 11:23 87 04/09/19 09:00 Nasal Cannula 2.0 Nasal Cannula 2.0 04/09/19 08:55 98.2 04/09/19 08:26 89 123/61 04/09/19 08:25 123/61 04/09/19 08:24 91 123/61 04/09/19 08:22 97 Nasal Cannula 2.0 28 04/09/19 08:22 89 20 97 Nasal Cannula 2.0 28 04/09/19 08:00 98.2 91 16 123/61 (81) 98 04/09/19 07:54 93 04/09/19 04:00 93 04/09/19 04:00 98.3 106 21 111/69 (83) 96 04/09/19 00:00 115 04/09/19 00:00 98.5 115 19 107/62 (77) 95 04/08/19 22:02 96 Nasal Cannula 2.0 28 04/08/19 21:01 110 118/62 04/08/19 21:00 Nasal Cannula 2.0 04/08/19 20:00 107 04/08/19 20:00 97.8 110 17 118/62 (80) 97 04/08/19 16:00 99 04/08/19 16:00 97.0 96 18 119/67 (84) 95 I&O Intake and Output 04/08/19 04/09/19 19:00 07:00 Intake Total 900 ml 120 ml Output Total 2200 ml 1400 ml Balance -1300 ml -1280 ml Intake Oral 900 ml 120 ml Output Urine Total 2200 ml 1400 ml # Bowel Movements 2 Dressing: other Wound: other Drains: other Cardiovascular: RSR Respiratory: decreased breath sounds Abdomen: soft, present bowel sounds Extremities: no cyanosis, other Laboratory Tests Test 04/09/19 06:48 04/09/19 07:12 White Blood Count 11.7 K/UL (4.8-10.8) H Red Blood Count 3.25 M/UL (4.20-5.40) L Hemoglobin 9.4 G/DL (12.0-16.0) L Hematocrit 29.2 % (37.0-47.0) L Mean Corpuscular Volume 90 FL (80-99) Mean Corpuscular Hemoglobin 28.8 PG (27.0-31.0) Mean Corpuscular Hemoglobin Concent 32.1 G/DL (32.0-36.0) Red Cell Distribution Width 14.2 % (11.6-14.8) Platelet Count 373 K/UL (150-450) Mean Platelet Volume 5.8 FL (6.5-10.1) L Neutrophils (%) (Auto) 67.9 % (45.0-75.0) Lymphocytes (%) (Auto) 21.9 % (20.0-45.0) Monocytes (%) (Auto) 7.2 % (1.0-10.0) Eosinophils (%) (Auto) 2.7 % (0.0-3.0) Basophils (%) (Auto) 0.3 % (0.0-2.0) Sodium Level 137 MMOL/L (136-145) Potassium Level 3.6 MMOL/L (3.5-5.1) Chloride Level 97 MMOL/L (98-107) L Carbon Dioxide Level 35 MMOL/L (21-32) H Anion Gap 5 mmol/L (5-15) Blood Urea Nitrogen 21 mg/dL (7-18) H Creatinine 0.7 MG/DL (0.55-1.30) Estimat Glomerular Filtration Rate mL/min (>60) Glucose Level 122 MG/DL (74-106) H Calcium Level 9.3 MG/DL (8.5-10.1) Magnesium Level 2.1 MG/DL (1.8-2.4) Plan Problems: (1) Leukocytosis Assessment & Plan: leukocytosis fluctuating labs noted exam stable Abx as per ID cont IV abx CT noted reviewed. Unlikely etiology of leukocytosis dilated biliary tract without obstruction. Will monitor. 1. Moderate stool ball within the rectum. Correlate for impaction. 2. Dilated biliary tree, common bile duct measuring 1.4 cm. No obstructing stone or mass. 3. Moderate to severe right hydronephrosis which is favored chronic with a few stones layering dependently in the renal pelvis. No ureteral dilatation. 4. Leiomyomatous uterus. 1. Nonspecific biliary dilatation. 2. No sonographic evidence of acute cholecystitis. 3. Severe right hydronephrosis without definite stone identified. Nonobstructing 5 mm left renal stone. 4. Mild prominence of the bladder wall is nonspecific and may be secondary to underdistention. Further evaluation could be performed with urinalysis if clinically indicated. improving comfortable PPI tums trend labs (2) Decubitus skin ulcer Assessment & Plan: Pt presented on admission with moisture intertrigo R and L breasts. both breast folds are erythematous with denuded skin . DTPI noted to Upper R buttocks. Base of wound is maroon is indurated and elongated with surrounding non-blanching erythema. (L)1cm x (W)4cm. Both heels are soft pink and blanchable.No other skin concerns noted. stable Pt presented on admission with DTPI R sacrum which has now evolved into a full thickness pressure injury. Base of wound is moist with 20% slough, 80% granular. Periwound is pink and non-tender when palpated.(L)3cm x (W)1.8cm. Moisture Intertrigo both breasts resolving .Less erythema noted. Both heels are soft but easily blanches. Tx.Plan: Apply Hydraguard Silicone cream to R and L breasts Daily. Cleanse R sacral wound with saline. Apply TheraHoney. Apply Moisture Barrier periwound. Cover with Optifoam drsg. Change every 3days and prn. Apply Cavilon Skin Barrier to both heels. Cover each heels with Optifoam drsg. Change every 7 days and prn. APM/MARCUS Mattress overlay. Reposition at least every 2hours or as tolerated. Off-load heels with pillow. (3) Limited mobility (4) Constipation (5) Protein-calorie malnutrition, mild Assessment & Plan: DAILY ESTIMATED NEEDS: Needs based on Wound, cardiac, pulmonary, 46kg 25-30 kcals/kg 3523-1631 total kcals 1.25-1.5 g protein/kg 58-69 g total protein 25-30 mL/kg 0533-5575 total fluid mLs NUTRITION DIAGNOSIS: * Increased kcal/prot needs R/T wound healing as evidenced by pt admitted w/ DTPI R sacrum wound-> now evolved into full thickness wound. (UPDATED) * Swallowing difficulty R/T dysphagia as evidenced by pt on liquify pureed, NTL, w/ poor and variable PO intake-> texture now advanced to soft easy chew w/ thin liquids, cont w/ poor PO intake. (UPDATED) CURRENT DIET:LOW NA/ SOFT EASY CHEW W/ THIN LIQUIDS + ENSURE TID PO DIET RECOMMENDATIONS: Liberalized REGULAR w/ poor PO (texture per MOPHEAD SEWER) + Ensure TID ADDITIONAL RECOMMENDATIONS: * Per SNF record, ht=57", go=[id number]. * Wound healing: Continue MVI x 1, Vit C 250mg QD : add ZnSO4 220mg qd X 10 DAYS : Edilberto 1pkt BID as tolerated * Igor count x 72 hrs completed- INADEQUATE PO INTAKE * W/ continued nausea- consider giving Zofran ~30 mins prior to meal times * Monitor lytes closely w/ lasix, replete as needed Robert Orellana Apr 09, 2019 14:12
--- NOTE | 2019-04-09 15:34 | Cardiac Electrophysiology PN ---
Assessment/Plan Assessment/Plan 1. Recurrent nonsustained ventricular tachycardia up to 33 beats. Ruled out for PR. The patient's echocardiogram on 03/30/2019 showed ejection fraction 55% to 60%. On metoprolol 25 mg twice a day. Scheduled for nuclear stress test Thursday 2. Congestive heart failure with diastolic dysfunction. On Lasix 40 iv daily 3. Hypertension, on amlodipine 10 mg daily, metoprolol 25 mg b.i.d.,Lasix and lisinopril 20 mg daily. 4. Sepsis, on broad spectrum IV antibiotics. 5. Severe chronic obstructive pulmonary disease. CHARLEY RN Subjective Subjective Alert in NAD. Had 33 beats of VT04/07/19. No CP. Scheduled for stress test Thursday Objective Last 24 Hour Vital Signs Date Time Temp Pulse Resp B/P (MAP) Pulse Ox O2 Delivery O2 Flow Rate FiO2 04/09/19 12:00 97.7 88 17 124/58 (80) 96 04/09/19 11:23 87 04/09/19 09:00 Nasal Cannula 2.0 Nasal Cannula 2.0 04/09/19 08:55 98.2 04/09/19 08:26 89 123/61 04/09/19 08:25 123/61 04/09/19 08:24 91 123/61 04/09/19 08:22 97 Nasal Cannula 2.0 04/09/19 08:22 89 20 97 Nasal Cannula 2.0 04/09/19 08:00 98.2 91 16 123/61 (81) 98 04/09/19 07:54 93 04/09/19 04:00 93 04/09/19 04:00 98.3 106 21 111/69 (83) 96 04/09/19 00:00 115 04/09/19 00:00 98.5 115 19 107/62 (77) 95 04/08/19 22:02 96 Nasal Cannula 2.0 28 04/08/19 21:01 110 118/62 04/08/19 21:00 Nasal Cannula 2.0 04/08/19 20:00 107 04/08/19 20:00 97.8 110 17 118/62 (80) 97 04/08/19 16:00 99 04/08/19 16:00 97.0 96 18 119/67 (84) 95 Intake and Output 04/08/19 04/09/19 19:00 07:00 Intake Total 900 ml 120 ml Output Total 2200 ml 1400 ml Balance -1300 ml -1280 ml Intake Oral 900 ml 120 ml Output Urine Total 2200 ml 1400 ml # Bowel Movements 2 Laboratory Tests Test 04/09/19 06:48 04/09/19 07:12 White Blood Count 11.7 K/UL (4.8-10.8) H Red Blood Count 3.25 M/UL (4.20-5.40) L Hemoglobin 9.4 G/DL (12.0-16.0) L Hematocrit 29.2 % (37.0-47.0) L Mean Corpuscular Volume 90 FL (80-99) Mean Corpuscular Hemoglobin 28.8 PG (27.0-31.0) Mean Corpuscular Hemoglobin Concent 32.1 G/DL (32.0-36.0) Red Cell Distribution Width 14.2 % (11.6-14.8) Platelet Count 373 K/UL (150-450) Mean Platelet Volume 5.8 FL (6.5-10.1) L Neutrophils (%) (Auto) 67.9 % (45.0-75.0) Lymphocytes (%) (Auto) 21.9 % (20.0-45.0) Monocytes (%) (Auto) 7.2 % (1.0-10.0) Eosinophils (%) (Auto) 2.7 % (0.0-3.0) Basophils (%) (Auto) 0.3 % (0.0-2.0) Sodium Level 137 MMOL/L (136-145) Potassium Level 3.6 MMOL/L (3.5-5.1) Chloride Level 97 MMOL/L (98-107) L Carbon Dioxide Level 35 MMOL/L (21-32) H Anion Gap 5 mmol/L (5-15) Blood Urea Nitrogen 21 mg/dL (7-18) H Creatinine 0.7 MG/DL (0.55-1.30) Estimat Glomerular Filtration Rate mL/min (>60) Glucose Level 122 MG/DL (74-106) H Calcium Level 9.3 MG/DL (8.5-10.1) Magnesium Level 2.1 MG/DL (1.8-2.4) Microbiology Date/Time Source Procedure Growth Status 04/07/19 12:05 Blood Blood Culture - Preliminary NO GROWTH AFTER 24 HOURS Resulted 04/07/19 11:50 Blood Blood Culture - Preliminary NO GROWTH AFTER 24 HOURS Resulted 04/07/19 06:00 Sputum Expectorated Gram Stain - Final Resulted 04/07/19 06:00 Sputum Culture - Preliminary Staphylococcus Aureus Usual Respiratory Luna Resulted 04/06/19 18:25 Indwelling Cath Urine Culture - Final NO GROWTH AFTER 48 HOURS Complete Objective HEAD AND NECK: Mild JVD. LUNGS: Coarse rhonchi. CARDIOVASCULAR: Regular S1 and S2 with no gallop or murmur and tachycardic. ABDOMEN: Soft. EXTREMITIES: 1+ pitting edema. Lyle Allen MD Apr 09, 2019 15:34
[2019-04-09 16:00] VITALS: BP 120/64
--- NOTE | 2019-04-09 18:02 | General Progress Note ---
Assessment/Plan Status: not improved, unchanged Assessment/Plan: 78-year-old female with PMHx of COPD on 2L O2, HTN, diastolic CHF, chronic, osteoporosis, IBS-C, DDD, anemia and UTI sent from SNF for fever, lethargy, and congestion. #multiple runs of vtach, stress testing planned for Thursday #Septic shock secondary to pneumonia, ? aspiration ?HCAP vs. UTI, gram negative bacteremia, gram negative UTI Continue vanco and meropenem, ID following #Acute on chronic hypoxic respiratory failure- improving #CRISTÓBAL- prerenal- resolved, #chronic diastolic CHF #Hyponatremia- hypovolemic, resolved #COPD on home O2, doubt exacerbation #HTN, HLD #Normocytic Anemia- stable #Anxiety/depression #Mild protein calorie malnutrition #Hypernatremia, resolved #persistent nausea and abdominal pain , resolved I spent 35 minutes on this patient's case, and >50% was dedicated to counseling and/or care coordination. I spent an additional 35 minutes on review of medical records including prior outside hospital records, consult notes, progress notes, procedures, imaging, labs, hemodynamics, and other clinical documentation. Subjective Date patient seen: Apr 09, 2019 Time patient seen: 17:46 ROS Limited/Unobtainable: Yes Constitutional: Denies: chills, fever Cardiovascular: Denies: chest pain Respiratory: Denies: cough Gastrointestinal/Abdominal: Denies: abdominal pain Allergies: Coded Allergies: [place] (Unverified Allergy, Mild, upset stomach, 02/10/19) TOMATO (Unverified Allergy, Mild, upset stomach, 02/10/19) TETRACYCLINE (Unverified Allergy, Unknown, 07/24/14) Subjective Follow up for medical management No new complaints. No acute overnight events per RN Objective Last 24 Hour Vital Signs Date Time Temp Pulse Resp B/P (MAP) Pulse Ox O2 Delivery O2 Flow Rate FiO2 04/09/19 17:45 97.9 04/09/19 16:00 97.9 84 18 120/64 (82) 97 04/09/19 15:27 79 04/09/19 12:00 97.7 88 17 124/58 (80) 96 04/09/19 11:23 87 04/09/19 09:00 Nasal Cannula 2.0 Nasal Cannula 2.0 04/09/19 08:26 89 123/61 04/09/19 08:25 123/61 04/09/19 08:24 91 123/61 04/09/19 08:22 97 Nasal Cannula 2.0 28 04/09/19 08:22 89 20 97 Nasal Cannula 2.0 28 04/09/19 08:00 98.2 91 16 123/61 (81) 98 04/09/19 07:54 93 04/09/19 04:00 93 04/09/19 04:00 98.3 106 21 111/69 (83) 96 04/09/19 00:00 115 04/09/19 00:00 98.5 115 19 107/62 (77) 95 04/08/19 22:02 96 Nasal Cannula 2.0 28 04/08/19 21:01 110 118/62 04/08/19 21:00 Nasal Cannula 2.0 04/08/19 20:00 107 04/08/19 20:00 97.8 110 17 118/62 (80) 97 Intake and Output 04/08/19 04/09/19 19:00 07:00 Intake Total 900 ml 120 ml Output Total 2200 ml 1400 ml Balance -1300 ml -1280 ml Intake Oral 900 ml 120 ml Output Urine Total 2200 ml 1400 ml # Bowel Movements 2 Laboratory Tests 04/09/19 06:48: White Blood Count 11.7H, Red Blood Count 3.25L, Hemoglobin 9.4L, Hematocrit 29.2L, Mean Corpuscular Volume 90, Mean Corpuscular Hemoglobin 28.8, Mean Corpuscular Hemoglobin Concent 32.1, Red Cell Distribution Width 14.2, Platelet Count 373, Mean Platelet Volume 5.8L, Neutrophils (%) (Auto) 67.9, Lymphocytes ( %) (Auto) 21.9, Monocytes (%) (Auto) 7.2, Eosinophils (%) (Auto) 2.7, Basophils (%) (Auto) 0.3 04/09/19 07:12: Sodium Level 137, Potassium Level 3.6, Chloride Level 97L, Carbon Dioxide Level 35H, Anion Gap 5, Blood Urea Nitrogen 21H, Creatinine 0.7, Estimat Glomerular Filtration Rate , Glucose Level 122H, Calcium Level 9.3, Magnesium Level 2.1 Height (Feet): 5 Height (Inches): 4.00 Weight (Pounds): 156 Anjum Macedo MD Apr 09, 2019 18:02
[2019-04-09 20:00] VITALS: BP 94/43
--- NOTE | 2019-04-09 20:27 | Pulmonology Progress Note ---
Assessment/Plan Problems: (1) UTI (urinary tract infection) Assessment & Plan: E coli (2) Sepsis with acute hypoxic respiratory failure (3) CRISTÓBAL (acute kidney injury) (4) COPD (chronic obstructive pulmonary disease) (5) Anemia (6) Anxiety (7) Hypercholesteremia (8) Hyponatremia (9) Acute and chronic respiratory failure ([id number]) (10) Hypertension (11) Protein-calorie malnutrition, mild Assessment/Plan ASSESSMENT: The patient is a 78-year-old female with history of COPD, CHF with diastolic dysfunction, GERD, anemia, hypertension, hyperlipidemia, IBS, detention resident with pulsating comfort measures only and DNR, presenting with altered mental status, hypertension, likely secondary to UTI with urosepsis and hypoxemia secondary to above. PROBLEM LIST: 1. Hypoxemia likely secondary to urosepsis. 2. E coli UTI and GNR sepsis 3. COPD. 4. Home O2 dependence. 5. CHF with diastolic dysfunction. 6. CRISTÓBAL with hyponatremia. 7. Anemia. 8. Recent admission for gastritis. 9. Hypertension, hyperlipidemia, GERD, IBS. 10. DNAR, PULSE comfort measures only. TREATMENT PLAN: 1. Titrate on FiO2 to keep saturations greater than 90%. 2. F/U cards recs, stress test thursday 3. Abx per ID 4. Monitor volumes and renal function, D/C IVF, lasix 20 IV x 1 5. Diet per TECHNICIAN ASSISTANT with ASPIRATION precautions 6. Monitor mental status. 7. DVT prophylaxis, heparin subcutaneous. 8. The patient is DNAR, and has a POLST: comfort measures only, we will need to discuss further goals of care. Subjective Allergies: Coded Allergies: [place] (Unverified Allergy, Mild, upset stomach, 02/10/19) TOMATO (Unverified Allergy, Mild, upset stomach, 02/10/19) TETRACYCLINE (Unverified Allergy, Unknown, 07/24/14) Subjective AFVSS, on 2L, CXR PVC, no cough, no SOB, no FC Objective Last 24 Hour Vital Signs Date Time Temp Pulse Resp B/P (MAP) Pulse Ox O2 Delivery O2 Flow Rate FiO2 04/09/19 20:00 97 Nasal Cannula 2.0 28 04/09/19 19:05 97.9 04/09/19 17:45 97.9 04/09/19 16:00 97.9 84 18 120/64 (82) 97 04/09/19 15:27 79 04/09/19 12:00 97.7 88 17 124/58 (80) 96 04/09/19 11:23 87 04/09/19 09:00 Nasal Cannula 2.0 Nasal Cannula 2.0 04/09/19 08:26 89 123/61 04/09/19 08:25 123/61 04/09/19 08:24 91 123/61 04/09/19 08:22 97 Nasal Cannula 2.0 28 04/09/19 08:22 89 20 97 Nasal Cannula 2.0 28 04/09/19 08:00 98.2 91 16 123/61 (81) 98 04/09/19 07:54 93 04/09/19 04:00 93 04/09/19 04:00 98.3 106 21 111/69 (83) 96 04/09/19 00:00 115 04/09/19 00:00 98.5 115 19 107/62 (77) 95 04/08/19 22:02 96 Nasal Cannula 2.0 04/08/19 21:01 110 118/62 04/08/19 21:00 Nasal Cannula 2.0 Intake and Output 04/08/19 04/09/19 19:00 07:00 Intake Total 900 ml 120 ml Output Total 2200 ml 1400 ml Balance -1300 ml -1280 ml Intake Oral 900 ml 120 ml Output Urine Total 2200 ml 1400 ml # Bowel Movements 2 General Appearance: no acute distress, cachetic HEENT: normocephalic, atraumatic, anicteric, mucous membranes moist Respiratory/Chest: chest wall non-tender, lungs clear, normal breath sounds, no respiratory distress, no accessory muscle use Cardiovascular: normal peripheral pulses, normal rate, regular rhythm Abdomen: normal bowel sounds, soft, non tender, no organomegaly, non distended , no mass Extremities: no cyanosis, no clubbing, other - 1+ JORGE Microbiology Date/Time Source Procedure Growth Status 04/07/19 12:05 Blood Blood Culture - Preliminary NO GROWTH AFTER 24 HOURS Resulted 04/07/19 11:50 Blood Blood Culture - Preliminary NO GROWTH AFTER 24 HOURS Resulted 04/07/19 06:00 Sputum Expectorated Gram Stain - Final Resulted 04/07/19 06:00 Sputum Culture - Preliminary Staphylococcus Aureus Usual Respiratory Luna Resulted Laboratory Tests 04/09/19 06:48: White Blood Count 11.7H, Red Blood Count 3.25L, Hemoglobin 9.4L, Hematocrit 29.2L, Mean Corpuscular Volume 90, Mean Corpuscular Hemoglobin 28.8, Mean Corpuscular Hemoglobin Concent 32.1, Red Cell Distribution Width 14.2, Platelet Count 373, Mean Platelet Volume 5.8L, Neutrophils (%) (Auto) 67.9, Lymphocytes ( %) (Auto) 21.9, Monocytes (%) (Auto) 7.2, Eosinophils (%) (Auto) 2.7, Basophils (%) (Auto) 0.3 04/09/19 07:12: Sodium Level 137, Potassium Level 3.6, Chloride Level 97L, Carbon Dioxide Level 35H, Anion Gap 5, Blood Urea Nitrogen 21H, Creatinine 0.7, Estimat Glomerular Filtration Rate , Glucose Level 122H, Calcium Level 9.3, Magnesium Level 2.1 Current Medications Medications (Trade) Dose Ordered Sig/Wilner Route PRN Reason Start Time Stop Time Status Last Admin Dose Admin Acetaminophen (Tylenol) 650 mg Q4H PRN ORAL Mild - mod Pain/Temp > 100.5 04/03/19 18:15 05/02/19 18:14 04/09/19 18:35 Amlodipine Besylate (Norvasc) 10 mg DAILY ORAL 04/04/19 09:00 05/02/19 08:59 04/09/19 08:24 Ascorbic Acid (Vitamin C) 250 mg DAILY ORAL 04/04/19 09:00 05/01/19 08:59 04/09/19 09:17 Clonazepam (KlonoPIN) 0.5 mg BID ORAL 04/04/19 09:00 04/11/19 08:59 04/09/19 17:15 Dextrose 1,000 ml @ 50 mls/hr Q20H IV 04/04/19 13:06 05/04/19 13:05 04/09/19 12:52 Docusate Sodium (Colace) 100 mg THREE TIMES A DAY ORAL 04/04/19 09:00 05/04/19 08:59 04/09/19 17:15 Dronabinol (Marinol) 2.5 mg BID ORAL 04/04/19 09:00 05/04/19 08:59 04/09/19 17:16 Escitalopram Oxalate (Lexapro) 20 mg DAILY ORAL 04/04/19 09:00 04/30/19 14:02 04/09/19 08:12 Heparin Sodium (Porcine) (Heparin 5000 units/ml) 5,000 units EVERY 12 HOURS SUBQ 04/03/19 21:00 04/29/19 09:29 04/08/19 21:03 Hydralazine HCl (Apresoline) 10 mg Q4H PRN IV sbp>150 04/03/19 18:00 04/30/19 17:59 Lisinopril (Prinivil) 20 mg DAILY ORAL 04/04/19 09:00 05/02/19 08:59 04/09/19 08:25 Lorazepam (Ativan) 0.5 mg BIDPRN PRN ORAL For Anxiety 04/03/19 18:00 04/10/19 17:59 04/05/19 21:44 Meropenem 1 gm/ Sodium Chloride 110 ml @ 220 mls/hr Q12HR IVPB 04/08/19 21:00 04/14/19 23:59 04/08/19 21:00 Methocarbamol (Robaxin) 500 mg Q6H PRN ORAL muscle spasms 04/03/19 18:00 05/02/19 17:59 04/06/19 02:05 Metoprolol Tartrate (Lopressor) 25 mg Q12HR ORAL 04/08/19 09:00 05/05/19 08:59 04/09/19 08:26 Multivitamins (Multivitamins) 1 tab DAILY ORAL 04/04/19 09:00 05/01/19 08:59 04/09/19 08:24 Ondansetron HCl (Zofran) 4 mg Q4H PRN IVP Nausea & Vomiting 04/03/19 18:15 05/01/19 14:14 04/09/19 08:11 Oxycodone HCl (Roxicodone) 5 mg Q6H PRN ORAL Breakthrough Pain 04/03/19 21:30 04/09/19 21:29 04/09/19 13:10 Pantoprazole (Protonix) 40 mg EVERY 12 HOURS IVP 04/03/19 21:00 04/29/19 09:59 04/08/19 21:00 Polyethylene Glycol (Miralax) 17 gm DAILY PRN ORAL Constipation 04/04/19 08:00 05/04/19 07:59 04/04/19 11:29 Pregabalin (Lyrica) 75 mg BID ORAL 04/04/19 09:00 05/04/19 08:59 04/09/19 17:15 Prochlorperazine (Compazine) 10 mg Q6H PRN IVP Nausea & Vomiting 04/06/19 12:15 05/06/19 12:14 04/09/19 14:37 Regadenoson (Lexiscan) 0.4 mg ONCE PRN IV stress test 04/08/19 09:00 04/11/19 23:59 Vancomycin HCl (Vanco rx to dose) 1 ea DAILY PRN MISC Per rx protocol 04/08/19 14:45 05/08/19 14:44 Vancomycin/Sodium Chloride 275 ml @ 183.333 mls/hr Q24H IVPB 04/07/19 13:00 04/12/19 12:59 04/09/19 12:52 Zinc Sulfate (Zinc Sulfate) 220 mg DAILY ORAL 04/09/19 09:00 04/19/19 08:59 04/09/19 08:25 Rafael Lerma MD Apr 09, 2019 20:27
--- NOTE | 2019-04-09 23:26 | Psych Consult Progress Note ---
Psychiatry Progress Note Psychiatry Progress Note Medications Current Medications Medications (Trade) Dose Ordered Sig/Wilner Route PRN Reason Start Time Stop Time Status Last Admin Dose Admin Acetaminophen (Tylenol) 650 mg Q4H PRN ORAL Mild - mod Pain/Temp > 100.5 04/03/19 18:15 05/02/19 18:14 04/09/19 18:35 Amlodipine Besylate (Norvasc) 10 mg DAILY ORAL 04/04/19 09:00 05/02/19 08:59 04/09/19 08:24 Ascorbic Acid (Vitamin C) 250 mg DAILY ORAL 04/04/19 09:00 05/01/19 08:59 04/09/19 09:17 Clonazepam (KlonoPIN) 0.5 mg BID ORAL 04/04/19 09:00 04/11/19 08:59 04/09/19 17:15 Docusate Sodium (Colace) 100 mg THREE TIMES A DAY ORAL 04/04/19 09:00 05/04/19 08:59 04/09/19 17:15 Dronabinol (Marinol) 2.5 mg BID ORAL 04/04/19 09:00 05/04/19 08:59 04/09/19 17:16 Escitalopram Oxalate (Lexapro) 20 mg DAILY ORAL 04/04/19 09:00 04/30/19 14:02 04/09/19 08:12 Heparin Sodium (Porcine) (Heparin 5000 units/ml) 5,000 units EVERY 12 HOURS SUBQ 04/03/19 21:00 04/29/19 09:29 04/09/19 20:56 Hydralazine HCl (Apresoline) 10 mg Q4H PRN IV sbp>150 04/03/19 18:00 04/30/19 17:59 Lisinopril (Prinivil) 20 mg DAILY ORAL 04/04/19 09:00 05/02/19 08:59 04/09/19 08:25 Lorazepam (Ativan) 0.5 mg BIDPRN PRN ORAL For Anxiety 04/03/19 18:00 04/10/19 17:59 04/05/19 21:44 Meropenem 1 gm/ Sodium Chloride 110 ml @ 220 mls/hr Q12HR IVPB 04/08/19 21:00 04/14/19 23:59 04/09/19 20:47 Methocarbamol (Robaxin) 500 mg Q6H PRN ORAL muscle spasms 04/03/19 18:00 05/02/19 17:59 04/06/19 02:05 Metoprolol Tartrate (Lopressor) 25 mg Q12HR ORAL 04/08/19 09:00 05/05/19 08:59 04/09/19 08:26 Multivitamins (Multivitamins) 1 tab DAILY ORAL 04/04/19 09:00 05/01/19 08:59 04/09/19 08:24 Ondansetron HCl (Zofran) 4 mg Q4H PRN IVP Nausea & Vomiting 04/03/19 18:15 05/01/19 14:14 04/09/19 20:47 Pantoprazole (Protonix) 40 mg EVERY 12 HOURS IVP 04/03/19 21:00 04/29/19 09:59 04/09/19 20:45 Polyethylene Glycol (Miralax) 17 gm DAILY PRN ORAL Constipation 04/04/19 08:00 05/04/19 07:59 04/04/19 11:29 Pregabalin (Lyrica) 75 mg BID ORAL 04/04/19 09:00 05/04/19 08:59 04/09/19 17:15 Prochlorperazine (Compazine) 10 mg Q6H PRN IVP Nausea & Vomiting 04/06/19 12:15 05/06/19 12:14 04/09/19 14:37 Regadenoson (Lexiscan) 0.4 mg ONCE PRN IV stress test 04/08/19 09:00 04/11/19 23:59 Vancomycin HCl (Vanco rx to dose) 1 ea DAILY PRN MISC Per rx protocol 04/08/19 14:45 05/08/19 14:44 Vancomycin/Sodium Chloride 275 ml @ 183.333 mls/hr Q24H IVPB 04/07/19 13:00 04/12/19 12:59 04/09/19 12:52 Zinc Sulfate (Zinc Sulfate) 220 mg DAILY ORAL 04/09/19 09:00 04/19/19 08:59 04/09/19 08:25 Neurological/Psychiatric: Reports: anxiety, depressed, emotional problems Allergies: Coded Allergies: [place] (Unverified Allergy, Mild, upset stomach, 02/10/19) TOMATO (Unverified Allergy, Mild, upset stomach, 02/10/19) TETRACYCLINE (Unverified Allergy, Unknown, 07/24/14) Objective Data Height (Feet): 5 Height (Inches): 4.00 Weight (Pounds): 156 General Appearance: no apparent distress, alert Appearance: no abnormalities noted Behavior Mannerisms: good eye contact Mental Status Exam - Affect: blunted Speech: clear Mental Status Exam - Thought P: circumstantial, tangential Mental Status Exam - Suicidal: not present Assessment/Plan Status: not improved, unchanged Assessment/Plan: 1. Anxiety disorder. 2. Depression. PLAN: 1. Continue the Lexapro. 2. Add Seroquel 50 mg at bedtime. 3. Ativan and Klonopin. 4. We will continue to follow and adjust the medications. Wan Stern MD Apr 09, 2019 23:26
[2019-04-10] VITALS: BP 105/53
[2019-04-10 04:00] VITALS: BP_SYST 105; BP_SYST 99; BP_DIAS 44; BP_DIAS 53
[2019-04-10 08:00] VITALS: BP 110/55
[2019-04-10] MEDS: Metoprolol 25mg tab ORAL SCH ×2 (08:41→20:36)
[2019-04-10] MEDS: clonazePAM 0.5mg tab ORAL SCH ×2 (08:41→17:03)
[2019-04-10] MEDS: Ascorbic Acid 500mg tab ORAL SCH (08:41)
[2019-04-10] MEDS: Zinc Sulfate 220mg cap ORAL SCH ×2 (08:41→09:00)
[2019-04-10] MEDS: Docusate 100mg cap ORAL SCH ×3 (08:41→17:03)
[2019-04-10] MEDS: Dronabinol 2.5mg Cap ORAL SCH ×2 (08:41→17:04)
[2019-04-10] MEDS: Lyrica 75mg cap ORAL SCH ×2 (08:42→17:04)
[2019-04-10] MEDS: Pantoprazole Inj IVP SCH ×2 (08:42→20:34)
[2019-04-10] MEDS: Heparin 5000 units/ml inj SUBQ SCH ×3 (08:43→20:37)
[2019-04-10] MEDS: Meropenem 1 GM in NS 110 ML IVPB SCH ×2 (08:48→20:34)
[2019-04-10] MEDS: Lisinopril 20mg tab ORAL SCH (10:45)
[2019-04-10 12:00] VITALS: BP 116/55
--- NOTE | 2019-04-10 13:23 | Infectious Diseases Prog Note ---
Assessment/Plan Assessment/Plan ASSESSMENT AND PLAN: 1. e.coli uti/pyelonephritis with bacteremia, sepsis, leukocytosis, fevers, ? HCAP/aspiration pna vs atx, pulmonary edema ? cholecystitis - ct noted, us without cholecystitis - vancomycin - day # 4, on meropenem - day # 11/14 - f/u on cultures, labs and chest x-ray - check sensitivities of staph aureus from sputum culture - case d/w Mari 2. Acute kidney injury with elevated creatinine. 3. IBS 4. Congestive heart failure and edema - sob better 5. Hypertension. 6. Hyperlipidemia. 7. Blood pressure treatment per primary care team for hypertension. 8. Anemia. 9. Chronic obstructive pulmonary disease. 10. Gastroesophageal reflux disease. 11. Chronic obstructive pulmonary disease and congestive heart failure treatment per primary care team. 12. IBS. 13. Encephalopathy. 14. Gastritis. 15. Anxiety. 16. Hypercholesterolemia and dyslipidemia. 17. Breast cancer. 18. Malnutrition history. 19. Allergies to oranges, tetracycline, and tomatoes. 20. Social history is negative. 21. Family history is noncontributory. 22. MAR is noted. 23. Case was discussed with RN. 24. Skin care protocol. 25. Continue treatment per primary consultants and CAYETANO care. 26. Orders were noted and entered. 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 28. time spent - 35 minutes Subjective Constitutional: Denies: fever HEENT: Denies: congestion Respiratory: Denies: shortness of breath Cardiovascular: Denies: chest pain Gastrointestinal/Abdominal: Denies: nausea, vomiting, diarrhea Genitourinary: Reports: other - + shi Neurologic: Denies: headache Psychiatric: Denies: depression Skin: Denies: rash Hematologic: Denies: bleeding Musculoskeletal: Denies: pain Allergies: Coded Allergies: [place] (Unverified Allergy, Mild, upset stomach, 02/10/19) TOMATO (Unverified Allergy, Mild, upset stomach, 02/10/19) TETRACYCLINE (Unverified Allergy, Unknown, 07/24/14) Objective Vital Signs Last 24 Hour Vital Signs Date Time Temp Pulse Resp B/P (MAP) Pulse Ox O2 Delivery O2 Flow Rate FiO2 04/10/19 12:00 98.3 83 19 116/55 (75) 97 04/10/19 10:47 75 116/55 04/10/19 10:45 116/55 04/10/19 09:12 97.8 04/10/19 09:00 Nasal Cannula 2.0 Nasal Cannula 2.0 04/10/19 08:41 95 110/55 04/10/19 08:00 97.8 95 20 110/55 (73) 97 04/10/19 07:44 63 04/10/19 07:25 96 Nasal Cannula 2.0 28 04/10/19 07:25 87 19 96 Nasal Cannula 2.0 28 04/10/19 04:00 83 04/10/19 04:00 97.2 86 17 99/44 (62) 97 04/10/19 03:26 97.7 04/10/19 00:00 97.7 85 19 105/53 (70) 94 04/10/19 00:00 87 04/09/19 21:00 78 94/43 04/09/19 21:00 Nasal Cannula 2.0 Nasal Cannula 2.0 04/09/19 20:00 77 04/09/19 20:00 97.5 78 20 94/43 (60) 99 04/09/19 20:00 97 Nasal Cannula 2.0 28 04/09/19 16:00 97.9 84 18 120/64 (82) 97 04/09/19 15:27 79 Height (Feet): 5 Height (Inches): 4.00 Weight (Pounds): 156 General Appearance: no acute distress HEENT: normocephalic, atraumatic, anicteric, mucous membranes moist Respiratory/Chest: no accessory muscle use, crackles/rales, rhonchi - bilaterally Cardiovascular: normal rate, regular rhythm, no gallop/murmur, no JVD Abdomen: normal bowel sounds, soft, non tender, no organomegaly, non distended Genitourinary: other - + shi - urine slt cloudy Extremities: no cyanosis Skin: no rash Neurologic/Psychiatric: saddle and harness maker II-XII grossly normal, alert, oriented x 3, responsive Lymphatic: no neck adenopathy Musculoskeletal: no effusion Objective Chest x-ray - 03/31/19 - Procedure: XRAY Chest 1v Indication: Dyspnea Comparison: 03/30/2019 A single view chest radiograph was obtained. Findings: Increasing airspace disease in the right upper lobe noted as well as at both lung bases. The heart is mildly enlarged. The interstitium and pulmonary vascularity also appear prominent. IMPRESSION: Worsening airspace disease probably on the basis of congestive heart failure. Correlate clinically 04/05/19 - chest x-ray - Comparison: 03/31/2019 A single view chest radiograph was obtained. Findings: Interstitial densities noted diffusely with prominent vascularity and heart size consistent with pulmonary edema. There is a confluent density that has developed at the left lung base likely in part due to presence of a pleural effusion. Atelectasis suspected at the left lung base versus pneumonia which appears new. Surgical clips in the right axilla again noted. IMPRESSION: Interstitial edema/CHF. Suspected left pleural effusion. Suspected left basilar pneumonia versus atelectasis CT abdomen and pelvis: IMPRESSION: 1. Moderate stool ball within the rectum. Correlate for impaction. 2. Dilated biliary tree, common bile duct measuring 1.4 cm. No obstructing stone or mass. 3. Moderate to severe right hydronephrosis which is favored chronic with a few stones layering dependently in the renal pelvis. No ureteral dilatation. 4. Leiomyomatous uterus. Abdominal US: IMPRESSION: 1. Nonspecific biliary dilatation. 2. No sonographic evidence of acute cholecystitis. 3. Severe right hydronephrosis without definite stone identified. Nonobstructing 5 mm left renal stone. 4. Mild prominence of the bladder wall is nonspecific and may be secondary to underdistention. Further evaluation could be performed with urinalysis if clinically indicated. Chest x-ray - 04/08/19 - Procedure: XRAY Chest 1v Indication: Dyspnea Cehst Comparison: 04/05/2019 A single view chest radiograph was obtained. Findings: Vascular and interstitial prominence demonstrated consistent with CHF. Findings appear unchanged. There is a left pleural effusion suspected. There is a dense opacification of the left retrocardiac parenchyma which may be due to underlying pneumonia or atelectasis. IMPRESSION: No change from the prior exam Chest x-ray - 04/08/19 - Procedure: XRAY Chest 1v Indication: Dyspnea Comparison: 04/07/2019 A single view chest radiograph was obtained. Findings: There is enlargement of the cardiac silhouette with pulmonary vascular redistribution and prominence, hazy vessel margins and the suggestion of interstitial edema consistent with CHF. There is a left pleural effusion suspected. Underlying pneumonia or atelectasis is possible. Bones are osteopenic. Surgical clips in the right axilla and mediastinum noted. IMPRESSION: Worsening pulmonary edema Microbiology Date/Time Source Procedure Growth Status 04/07/19 12:05 Blood Blood Culture - Preliminary NO GROWTH AFTER 48 HOURS Resulted 04/07/19 06:00 Sputum Expectorated Gram Stain - Final Resulted 04/07/19 06:00 Sputum Culture - Preliminary Staphylococcus Aureus Usual Respiratory Luna Suzanne Albicans Resulted 04/06/19 18:25 Indwelling Cath Urine Culture - Final NO GROWTH AFTER 48 HOURS Complete 03/30/19 06:00 Rectum - Final NO CARBAPENEM-RESISTANT ENTEROBACTERI... Complete Labs Test 04/08/19 04:36 04/09/19 06:48 04/09/19 07:12 04/10/19 11:45 White Blood Count 12.7 K/UL (4.8-10.8) 11.7 K/UL (4.8-10.8) Red Blood Count 3.17 M/UL (4.20-5.40) 3.25 M/UL (4.20-5.40) Hemoglobin 9.4 G/DL (12.0-16.0) 9.4 G/DL (12.0-16.0) Hematocrit 28.9 % (37.0-47.0) 29.2 % (37.0-47.0) Mean Corpuscular Volume 91 FL (80-99) 90 FL (80-99) Mean Corpuscular Hemoglobin 29.5 PG (27.0-31.0) 28.8 PG (27.0-31.0) Mean Corpuscular Hemoglobin Concent 32.4 G/DL (32.0-36.0) 32.1 G/DL (32.0-36.0) Red Cell Distribution Width 14.0 % (11.6-14.8) 14.2 % (11.6-14.8) Platelet Count 302 K/UL (150-450) 373 K/UL (150-450) Mean Platelet Volume 6.3 FL (6.5-10.1) 5.8 FL (6.5-10.1) Neutrophils (%) (Auto) 67.1 % (45.0-75.0) 67.9 % (45.0-75.0) Lymphocytes (%) (Auto) 21.4 % (20.0-45.0) 21.9 % (20.0-45.0) Monocytes (%) (Auto) 8.6 % (1.0-10.0) 7.2 % (1.0-10.0) Eosinophils (%) (Auto) 2.6 % (0.0-3.0) 2.7 % (0.0-3.0) Basophils (%) (Auto) 0.4 % (0.0-2.0) 0.3 % (0.0-2.0) Sodium Level 139 MMOL/L (136-145) 137 MMOL/L (136-145) Potassium Level 3.5 MMOL/L (3.5-5.1) 3.6 MMOL/L (3.5-5.1) Chloride Level 97 MMOL/L (98-107) 97 MMOL/L (98-107) Carbon Dioxide Level 37 MMOL/L (21-32) 35 MMOL/L (21-32) Anion Gap 5 mmol/L (5-15) 5 mmol/L (5-15) Blood Urea Nitrogen 25 mg/dL (7-18) 21 mg/dL (7-18) Creatinine 0.9 MG/DL (0.55-1.30) 0.7 MG/DL (0.55-1.30) Estimat Glomerular Filtration Rate mL/min (>60) mL/min (>60) Glucose Level 117 MG/DL (74-106) 122 MG/DL (74-106) Calcium Level 8.6 MG/DL (8.5-10.1) 9.3 MG/DL (8.5-10.1) Magnesium Level 2.1 MG/DL (1.8-2.4) Vancomycin Level Trough 23.2 ug/mL (5.0-12.0) Laboratory Tests Test 04/10/19 11:45 Vancomycin Level Trough 23.2 ug/mL (5.0-12.0) H Current Medications Medications (Trade) Dose Ordered Sig/Wilner Route PRN Reason Start Time Stop Time Status Last Admin Dose Admin Acetaminophen (Tylenol) 650 mg Q4H PRN ORAL Mild - mod Pain/Temp > 100.5 04/03/19 18:15 05/02/19 18:14 04/10/19 02:56 Amlodipine Besylate (Norvasc) 10 mg DAILY ORAL 04/04/19 09:00 12/23/19 08:59 04/10/19 10:47 Ascorbic Acid (Vitamin C) 250 mg DAILY ORAL 04/04/19 09:00 05/01/19 08:59 04/10/19 08:41 Clonazepam (KlonoPIN) 0.5 mg BID ORAL 04/04/19 09:00 04/11/19 08:59 04/10/19 08:41 Docusate Sodium (Colace) 100 mg THREE TIMES A DAY ORAL 04/04/19 09:00 05/04/19 08:59 04/10/19 08:41 Dronabinol (Marinol) 2.5 mg BID ORAL 04/04/19 09:00 05/04/19 08:59 04/10/19 08:41 Escitalopram Oxalate (Lexapro) 20 mg DAILY ORAL 04/04/19 09:00 04/30/19 14:02 04/10/19 08:42 Heparin Sodium (Porcine) (Heparin 5000 units/ml) 5,000 units EVERY 12 HOURS SUBQ 04/03/19 21:00 04/29/19 09:29 04/09/19 20:56 Hydralazine HCl (Apresoline) 10 mg Q4H PRN IV sbp>150 04/03/19 18:00 04/30/19 17:59 Lisinopril (Prinivil) 20 mg DAILY ORAL 04/04/19 09:00 05/02/19 08:59 04/10/19 10:45 Lorazepam (Ativan) 0.5 mg BIDPRN PRN ORAL For Anxiety 04/03/19 18:00 04/10/19 17:59 04/05/19 21:44 Meropenem 1 gm/ Sodium Chloride 110 ml @ 220 mls/hr Q12HR IVPB 04/08/19 21:00 04/14/19 23:59 04/10/19 08:48 Methocarbamol (Robaxin) 500 mg Q6H PRN ORAL muscle spasms 04/03/19 18:00 05/02/19 17:59 04/06/19 02:05 Metoprolol Tartrate (Lopressor) 25 mg Q12HR ORAL 04/08/19 09:00 05/05/19 08:59 04/10/19 08:41 Multivitamins (Multivitamins) 1 tab DAILY ORAL 04/04/19 09:00 05/01/19 08:59 04/09/19 08:24 Ondansetron HCl (Zofran) 4 mg Q4H PRN IVP Nausea & Vomiting 04/03/19 18:15 05/01/19 14:14 04/09/19 20:47 Pantoprazole (Protonix) 40 mg EVERY 12 HOURS IVP 04/03/19 21:00 04/29/19 09:59 04/10/19 08:42 Polyethylene Glycol (Miralax) 17 gm DAILY PRN ORAL Constipation 04/04/19 08:00 05/04/19 07:59 04/04/19 11:29 Pregabalin (Lyrica) 75 mg BID ORAL 04/04/19 09:00 05/04/19 08:59 04/10/19 08:42 Prochlorperazine (Compazine) 10 mg Q6H PRN IVP Nausea & Vomiting 04/06/19 12:15 05/06/19 12:14 04/09/19 14:37 Regadenoson (Lexiscan) 0.4 mg ONCE PRN IV stress test 04/08/19 09:00 04/11/19 23:59 Vancomycin HCl (Vanco rx to dose) 1 ea DAILY PRN MISC Per rx protocol 04/08/19 14:45 05/08/19 14:44 Vancomycin HCl 1 gm/Dextrose 275 ml @ 183.708 mls/hr Q24H IVPB 04/10/19 15:00 04/15/19 14:59 Zinc Sulfate (Zinc Sulfate) 220 mg DAILY ORAL 04/09/19 09:00 04/19/19 08:59 04/09/19 08:25 Nyasia Grover MD Apr 10, 2019 13:23
--- NOTE | 2019-04-10 13:23 | Surgery Progress Note ---
Surgery Progress Note Subjective Additional Comments wbc trending down no acute events Objective Last 24 Hour Vital Signs Date Time Temp Pulse Resp B/P (MAP) Pulse Ox O2 Delivery O2 Flow Rate FiO2 04/10/19 12:00 98.3 83 19 116/55 (75) 97 04/10/19 10:47 75 116/55 04/10/19 10:45 116/55 04/10/19 09:12 97.8 04/10/19 09:00 Nasal Cannula 2.0 Nasal Cannula 2.0 04/10/19 08:41 95 110/55 04/10/19 08:00 97.8 95 20 110/55 (73) 97 04/10/19 07:44 63 04/10/19 07:25 96 Nasal Cannula 2.0 28 04/10/19 07:25 87 19 96 Nasal Cannula 2.0 28 04/10/19 04:00 83 04/10/19 04:00 97.2 86 17 99/44 (62) 97 04/10/19 03:26 97.7 04/10/19 00:00 97.7 85 19 105/53 (70) 94 04/10/19 00:00 87 04/09/19 21:00 78 94/43 04/09/19 21:00 Nasal Cannula 2.0 Nasal Cannula 2.0 04/09/19 20:00 77 04/09/19 20:00 97.5 78 20 94/43 (60) 99 04/09/19 20:00 97 Nasal Cannula 2.0 28 04/09/19 16:00 97.9 84 18 120/64 (82) 97 04/09/19 15:27 79 I&O Intake and Output 04/09/19 04/10/19 19:00 07:00 Intake Total 200 ml 200 ml Output Total 1100 ml 1500 ml Balance -900 ml -1300 ml Intake Oral 200 ml 200 ml Output Urine Total 1100 ml 1500 ml # Voids 1 Dressing: other Wound: other Drains: other Cardiovascular: RSR Respiratory: decreased breath sounds Abdomen: soft, present bowel sounds Extremities: no cyanosis, other Laboratory Tests Test 04/10/19 11:45 Vancomycin Level Trough 23.2 ug/mL (5.0-12.0) H Plan Problems: (1) Leukocytosis Assessment & Plan: leukocytosis fluctuating labs noted exam stable Abx as per ID cont IV abx CT noted reviewed. Unlikely etiology of leukocytosis dilated biliary tract without obstruction. Will monitor. 1. Moderate stool ball within the rectum. Correlate for impaction. 2. Dilated biliary tree, common bile duct measuring 1.4 cm. No obstructing stone or mass. 3. Moderate to severe right hydronephrosis which is favored chronic with a few stones layering dependently in the renal pelvis. No ureteral dilatation. 4. Leiomyomatous uterus. 1. Nonspecific biliary dilatation. 2. No sonographic evidence of acute cholecystitis. 3. Severe right hydronephrosis without definite stone identified. Nonobstructing 5 mm left renal stone. 4. Mild prominence of the bladder wall is nonspecific and may be secondary to underdistention. Further evaluation could be performed with urinalysis if clinically indicated. improving comfortable PPI tums trend labs (2) Decubitus skin ulcer Assessment & Plan: Pt presented on admission with moisture intertrigo R and L breasts. both breast folds are erythematous with denuded skin . DTPI noted to Upper R buttocks. Base of wound is maroon is indurated and elongated with surrounding non-blanching erythema. (L)1cm x (W)4cm. Both heels are soft pink and blanchable.No other skin concerns noted. stable Pt presented on admission with DTPI R sacrum which has now evolved into a full thickness pressure injury. Base of wound is moist with 20% slough, 80% granular. Periwound is pink and non-tender when palpated.(L)3cm x (W)1.8cm. Moisture Intertrigo both breasts resolving .Less erythema noted. Both heels are soft but easily blanches. Tx.Plan: Apply Hydraguard Silicone cream to R and L breasts Daily. Cleanse R sacral wound with saline. Apply TheraHoney. Apply Moisture Barrier periwound. Cover with Optifoam drsg. Change every 3days and prn. Apply Cavilon Skin Barrier to both heels. Cover each heels with Optifoam drsg. Change every 7 days and prn. APM/MARCUS Mattress overlay. Reposition at least every 2hours or as tolerated. Off-load heels with pillow. (3) Limited mobility (4) Constipation (5) Protein-calorie malnutrition, mild Assessment & Plan: DAILY ESTIMATED NEEDS: Needs based on Wound, cardiac, pulmonary, 46kg 25-30 kcals/kg 6689-0400 total kcals 1.25-1.5 g protein/kg 58-69 g total protein 25-30 mL/kg 0616-3133 total fluid mLs NUTRITION DIAGNOSIS: * Increased kcal/prot needs R/T wound healing as evidenced by pt admitted w/ DTPI R sacrum wound-> now evolved into full thickness wound. (UPDATED) * Swallowing difficulty R/T dysphagia as evidenced by pt on liquify pureed, NTL, w/ poor and variable PO intake-> texture now advanced to soft easy chew w/ thin liquids, cont w/ poor PO intake. (UPDATED) CURRENT DIET:LOW NA/ SOFT EASY CHEW W/ THIN LIQUIDS + ENSURE TID PO DIET RECOMMENDATIONS: Liberalized REGULAR w/ poor PO (texture per CABLE INSTALLER REPAIRER HELPER) + Ensure TID ADDITIONAL RECOMMENDATIONS: * Per SNF record, ht=57", [id number]. * Wound healing: Continue MVI x 1, Vit C 250mg QD : add ZnSO4 220mg qd X 10 DAYS : Edilberto 1pkt BID as tolerated * Igor count x 72 hrs completed- INADEQUATE PO INTAKE * W/ continued nausea- consider giving Zofran ~30 mins prior to meal times * Monitor lytes closely w/ lasix, replete as needed Robert Orellana Apr 10, 2019 13:23
--- NOTE | 2019-04-10 13:43 | General Progress Note ---
Assessment/Plan Status: not improved, unchanged Assessment/Plan: 78-year-old female with PMHx of COPD on 2L O2, HTN, diastolic CHF, chronic, osteoporosis, IBS-C, DDD, anemia and UTI sent from SNF for fever, lethargy, and congestion. #multiple runs of vtach, stress test tomorrow, NPO after midnight #Septic shock secondary to S. aureus pneumonia, continue with antibiotics as per ID recs #Acute on chronic hypoxic respiratory failure- improving #CRISTÓBAL- prerenal- resolved, #chronic diastolic CHF #Hyponatremia- hypovolemic, resolved #COPD on home O2, doubt exacerbation #HTN, HLD #Normocytic Anemia- stable #Anxiety/depression #Mild protein calorie malnutrition #Hypernatremia, resolved #persistent nausea and abdominal pain , resolved I spent 35 minutes on this patient's case, and >50% was dedicated to counseling and/or care coordination. Subjective Date patient seen: Apr 10, 2019 Time patient seen: 13:36 ROS Limited/Unobtainable: Yes Constitutional: Denies: chills, fever Cardiovascular: Denies: chest pain Respiratory: Denies: cough Gastrointestinal/Abdominal: Denies: abdominal pain Allergies: Coded Allergies: [place] (Unverified Allergy, Mild, upset stomach, 02/10/19) TOMATO (Unverified Allergy, Mild, upset stomach, 02/10/19) TETRACYCLINE (Unverified Allergy, Unknown, 07/24/14) Subjective Follow up for medical management No new complaints. No acute overnight events per RN, no further ventricular tachycardia overnight Objective Last 24 Hour Vital Signs Date Time Temp Pulse Resp B/P (MAP) Pulse Ox O2 Delivery O2 Flow Rate FiO2 04/10/19 12:00 98.3 83 19 116/55 (75) 97 04/10/19 10:47 75 116/55 04/10/19 10:45 116/55 04/10/19 09:12 97.8 04/10/19 09:00 Nasal Cannula 2.0 Nasal Cannula 2.0 04/10/19 08:41 95 110/55 04/10/19 08:00 97.8 95 20 110/55 (73) 97 04/10/19 07:44 63 04/10/19 07:25 96 Nasal Cannula 2.0 28 04/10/19 07:25 87 19 96 Nasal Cannula 2.0 28 04/10/19 04:00 83 04/10/19 04:00 97.2 86 17 99/44 (62) 97 04/10/19 03:26 97.7 04/10/19 00:00 97.7 85 19 105/53 (70) 94 04/10/19 00:00 87 04/09/19 21:00 78 94/43 04/09/19 21:00 Nasal Cannula 2.0 Nasal Cannula 2.0 04/09/19 20:00 77 04/09/19 20:00 97.5 78 20 94/43 (60) 99 04/09/19 20:00 97 Nasal Cannula 2.0 28 04/09/19 16:00 97.9 84 18 120/64 (82) 97 04/09/19 15:27 79 Intake and Output 04/09/19 04/10/19 19:00 07:00 Intake Total 200 ml 200 ml Output Total 1100 ml 1500 ml Balance -900 ml -1300 ml Intake Oral 200 ml 200 ml Output Urine Total 1100 ml 1500 ml # Voids 1 Laboratory Tests 04/10/19 11:45: Vancomycin Level Trough 23.2H Height (Feet): 5 Height (Inches): 4.00 Weight (Pounds): 156 General Appearance: alert Neck: normal alignment Cardiovascular: normal rate, regular rhythm Respiratory/Chest: lungs clear, normal breath sounds Abdomen: non tender, soft Anjum Macedo MD Apr 10, 2019 13:43
[2019-04-10] MEDS: Vancomycin 1gm/D5W 275ml IVPB SCH ×2 (13:55)
[2019-04-10 16:00] VITALS: BP 97/44
[2019-04-10 20:00] VITALS: BP 100/50
--- NOTE | 2019-04-10 20:16 | Pulmonology Progress Note ---
Assessment/Plan Problems: (1) UTI (urinary tract infection) Assessment & Plan: E coli (2) Sepsis with acute hypoxic respiratory failure (3) CRISTÓBAL (acute kidney injury) (4) COPD (chronic obstructive pulmonary disease) (5) Anemia (6) Anxiety (7) Hypercholesteremia (8) Hyponatremia (9) Acute and chronic respiratory failure ([id number]) (10) Hypertension (11) Protein-calorie malnutrition, mild Assessment/Plan ASSESSMENT: The patient is a 78-year-old female with history of COPD, CHF with diastolic dysfunction, GERD, anemia, hypertension, hyperlipidemia, IBS, [facility] resident with pulsating comfort measures only and DNR, presenting with altered mental status, hypertension, likely secondary to UTI with urosepsis and hypoxemia secondary to above. PROBLEM LIST: 1. Hypoxemia likely secondary to urosepsis. 2. E coli UTI and GNR sepsis 3. COPD. 4. Home O2 dependence. 5. CHF with diastolic dysfunction. 6. CRISTÓBAL with hyponatremia. 7. Anemia. 8. Recent admission for gastritis. 9. Hypertension, hyperlipidemia, GERD, IBS. 10. DNAR, PULSE comfort measures only. TREATMENT PLAN: 1. Titrate on FiO2 to keep saturations greater than 90%. 2. F/U cards recs, stress test tomorrow 3. Abx per ID 4. Monitor volumes and renal function, off IVF, PRN lasix 5. Diet per [employer] with ASPIRATION precautions 6. Monitor mental status. 7. DVT prophylaxis, heparin subcutaneous. 8. The patient is DNAR, and has a POLST: comfort measures only, we will need to discuss further goals of care. Subjective Allergies: Coded Allergies: [place] (Unverified Allergy, Mild, upset stomach, 02/10/19) TOMATO (Unverified Allergy, Mild, upset stomach, 02/10/19) TETRACYCLINE (Unverified Allergy, Unknown, 07/24/14) Subjective AFVSS, on 2L, better, no cough, no SOB, no FC Objective Last 24 Hour Vital Signs Date Time Temp Pulse Resp B/P (MAP) Pulse Ox O2 Delivery O2 Flow Rate FiO2 04/10/19 20:12 95 Nasal Cannula 2.0 28 04/10/19 17:35 97.9 04/10/19 17:12 97.9 04/10/19 16:00 97.9 80 18 97/44 (61) 99 04/10/19 15:31 88 04/10/19 12:00 98.3 83 19 116/55 (75) 97 04/10/19 11:50 81 04/10/19 10:47 75 116/55 04/10/19 10:45 116/55 04/10/19 09:00 Nasal Cannula 2.0 Nasal Cannula 2.0 04/10/19 08:41 95 110/55 04/10/19 08:00 97.8 95 20 110/55 (73) 97 04/10/19 07:44 63 04/10/19 07:25 96 Nasal Cannula 2.0 28 04/10/19 07:25 87 19 96 Nasal Cannula 2.0 28 04/10/19 04:00 83 04/10/19 04:00 97.2 86 17 99/44 (62) 97 04/10/19 00:00 97.7 85 19 105/53 (70) 94 04/10/19 00:00 87 04/09/19 21:00 78 94/43 04/09/19 21:00 Nasal Cannula 2.0 Nasal Cannula 2.0 Intake and Output 04/09/19 04/10/19 19:00 07:00 Intake Total 200 ml 200 ml Output Total 1100 ml 1500 ml Balance -900 ml -1300 ml Intake Oral 200 ml 200 ml Output Urine Total 1100 ml 1500 ml # Voids 1 General Appearance: no acute distress, cachetic HEENT: normocephalic, atraumatic, mucous membranes moist Respiratory/Chest: chest wall non-tender, lungs clear, normal breath sounds Cardiovascular: normal peripheral pulses, normal rate, regular rhythm Abdomen: normal bowel sounds, soft, non tender, no organomegaly, non distended , no mass Extremities: no cyanosis, no clubbing, other - trace edema Laboratory Tests 04/10/19 11:45: Vancomycin Level Trough 23.2H Current Medications Medications (Trade) Dose Ordered Sig/Wilner Route PRN Reason Start Time Stop Time Status Last Admin Dose Admin Acetaminophen (Tylenol) 650 mg Q4H PRN ORAL Mild - mod Pain/Temp > 100.5 04/03/19 18:15 05/02/19 18:14 04/10/19 16:42 Amlodipine Besylate (Norvasc) 10 mg DAILY ORAL 04/04/19 09:00 05/02/19 08:59 04/10/19 10:47 Ascorbic Acid (Vitamin C) 250 mg DAILY ORAL 04/04/19 09:00 05/01/19 08:59 04/10/19 08:41 Clonazepam (KlonoPIN) 0.5 mg BID ORAL 04/04/19 09:00 04/11/19 08:59 04/10/19 17:03 Docusate Sodium (Colace) 100 mg THREE TIMES A DAY ORAL 04/04/19 09:00 05/04/19 08:59 04/10/19 17:03 Dronabinol (Marinol) 2.5 mg BID ORAL 04/04/19 09:00 05/04/19 08:59 04/10/19 17:04 Escitalopram Oxalate (Lexapro) 20 mg DAILY ORAL 04/04/19 09:00 04/30/19 14:02 04/10/19 08:42 Heparin Sodium (Porcine) (Heparin 5000 units/ml) 5,000 units EVERY 12 HOURS SUBQ 04/03/19 21:00 04/29/19 09:29 04/09/19 20:56 Hydralazine HCl (Apresoline) 10 mg Q4H PRN IV sbp>150 04/03/19 18:00 04/30/19 17:59 Lisinopril (Prinivil) 20 mg DAILY ORAL 04/04/19 09:00 05/02/19 08:59 04/10/19 10:45 Meropenem 1 gm/ Sodium Chloride 110 ml @ 220 mls/hr Q12HR IVPB 04/08/19 21:00 04/14/19 23:59 04/10/19 08:48 Methocarbamol (Robaxin) 500 mg Q6H PRN ORAL muscle spasms 04/03/19 18:00 05/02/19 17:59 04/06/19 02:05 Metoprolol Tartrate (Lopressor) 25 mg Q12HR ORAL 04/08/19 09:00 05/05/19 08:59 04/10/19 08:41 Multivitamins (Multivitamins) 1 tab DAILY ORAL 04/04/19 09:00 05/01/19 08:59 04/09/19 08:24 Ondansetron HCl (Zofran) 4 mg Q4H PRN IVP Nausea & Vomiting 04/03/19 18:15 05/01/19 14:14 04/10/19 16:42 Pantoprazole (Protonix) 40 mg EVERY 12 HOURS IVP 04/03/19 21:00 04/29/19 09:59 04/10/19 08:42 Polyethylene Glycol (Miralax) 17 gm DAILY PRN ORAL Constipation 04/04/19 08:00 05/04/19 07:59 04/04/19 11:29 Pregabalin (Lyrica) 75 mg BID ORAL 04/04/19 09:00 05/04/19 08:59 04/10/19 17:04 Prochlorperazine (Compazine) 10 mg Q6H PRN IVP Nausea & Vomiting 04/06/19 12:15 05/06/19 12:14 04/09/19 14:37 Regadenoson (Lexiscan) 0.4 mg ONCE PRN IV stress test 04/08/19 09:00 04/11/19 23:59 Vancomycin HCl (Vanco rx to dose) 1 ea DAILY PRN MISC Per rx protocol 04/08/19 14:45 05/08/19 14:44 Vancomycin HCl 1 gm/Dextrose 275 ml @ 183.708 mls/hr Q24H IVPB 04/10/19 15:00 04/15/19 14:59 04/10/19 13:55 Zinc Sulfate (Zinc Sulfate) 220 mg DAILY ORAL 04/09/19 09:00 04/19/19 08:59 04/09/19 08:25 Rafael Lerma MD Apr 10, 2019 20:16
[2019-04-11] VITALS: BP 96/48
[2019-04-11 04:00] VITALS: BP 107/52
[2019-04-11 08:00] VITALS: BP 142/72
[2019-04-11 08:47] LABS: BASOPHILS % (AUTO) 0.7 % (0.0-2.0); EOSINOPHILS % (AUTO) 3.4 % (0.0-3.0); HEMATOCRIT 27.2 % (37.0-47.0); HEMOGLOBIN 8.5 G/DL (12.0-16.0); LYMPHOCYTES % (AUTO) 28.3 % (20.0-45.0); MEAN CORPUSCULAR VOLUME 92 FL (80-99); MONOCYTES % (AUTO) 10.5 % (1.0-10.0); PLATELET COUNT 411 K/UL (150-450); RED BLOOD COUNT 2.95 M/UL (4.20-5.40); RED CELL DISTRIBUTION WIDTH 14.1 % (11.6-14.8); WHITE BLOOD COUNT 7.9 K/UL (4.8-10.8)
[2019-04-11] MEDS: Metoprolol 25mg tab ORAL SCH ×2 (09:00→21:58)
--- NOTE | 2019-04-11 09:01 | General Progress Note ---
Assessment/Plan Problem List: (1) Acute and chronic respiratory failure ([id number]) ICD Codes: J96.20 - Acute and chr resp failure, unsp w hypoxia or hypercapnia SNOMED: 58853036 (2) Respiratory failure with hypoxia ICD Codes: J96.91 - Respiratory failure, unspecified with hypoxia SNOMED: 81386593932222315 (3) Gram-negative bacteremia ICD Codes: R78.81 - Bacteremia SNOMED: 527083835094 (4) Severe sepsis ICD Codes: A41.9 - Sepsis, unspecified organism; R65.20 - Severe sepsis without septic shock SNOMED: 51360597 (5) CRISTÓBAL (acute kidney injury) ICD Codes: N17.9 - Acute kidney failure, unspecified SNOMED: 68870440, 6630897, 817084542 (6) UTI (urinary tract infection) ICD Codes: N39.0 - Urinary tract infection, site not specified SNOMED: 13797792, 47206555, 899805629 (7) Hyponatremia ICD Codes: E87.1 - Hypo-osmolality and hyponatremia SNOMED: 19174409 (8) COPD (chronic obstructive pulmonary disease) ICD Codes: J44.9 - Chronic obstructive pulmonary disease, unspecified SNOMED: 58111138 (9) Anemia ICD Codes: D64.9 - Anemia, unspecified SNOMED: 257899111 (10) Anxiety ICD Codes: F41.9 - Anxiety disorder, unspecified SNOMED: 32292368 (11) Hypertension ICD Codes: I10 - Essential (primary) hypertension SNOMED: 55092831 (12) History of breast cancer ICD Codes: Z85.3 - Personal history of malignant neoplasm of breast SNOMED: 326648182 (13) Diastolic CHF ICD Codes: I50.30 - Unspecified diastolic (congestive) heart failure SNOMED: 40108129, 567739844 (14) Hypercholesteremia ICD Codes: E78.00 - Pure hypercholesterolemia, unspecified SNOMED: 60248237 (15) Protein-calorie malnutrition, mild ICD Codes: E44.1 - Mild protein-calorie malnutrition SNOMED: 24370621 Status: not improved, unchanged Assessment/Plan: 78-year-old female with PMHx of COPD on 2L O2, HTN, diastolic CHF, chronic, osteoporosis, IBS-C, DDD, anemia and UTI sent from SNF for fever, lethargy, and congestion. # multiple runs of vtach- most recently 33 beats. CO ruled out- Trops negative, EKG non ischemic, stress test negative for ischemia #Severe sepsis/ septic shock secondary to pneumonia, ? aspiration ?HCAP vs. UTI , gram negative bacteremia, gram negative UTI. resolving. wbc trending up, cxr worsening congestion, left base infiltrate vs atelectasis. ct abd pelvic, dilated cbd, no stones. Added vancomycin 04/07, wbc now trending down. abdominal us, gallbladder unremarkable, cbd dilated. GI and surgery to follow up appreciated #Acute on chronic hypoxic respiratory failure- responding to non invasive positive pressure ventilation #CRISTÓBAL- prerenal- resolved, #diastolic CHF, possible acute exacerbation #Hyponatremia- hypovolemic, resolved #COPD on home O2, doubt exacerbation #HTN, HLD #Normocytic Anemia- stable #Anxiety/depression #Mild protein calorie malnutrition #Hypernatremia over the weekend- resolved #persistent nausea and abdominal pain -Stress test per cardiology for ventricular tachycardias -Broad spectrum antibiotics: s/p Zosyn, Vancomycin and Azithromycin. Renal dose. Per ID switch to Amikacin once and meropenem day 04/23, now also on Vancomycin (04/07-) . ID to follow up reg antibiotics, d/w Dr. Grady, will add vancomycin. Get abd US. repeat cultures. follow up sputum culture. MRSA -stop bipap, titrate to keep SpO2 >90% -ID and pulmonary consults appreciated -Repeat Echocardiogram reviewed - Duo-Nebs Q6hr PRN SOB/Wheezing -One time IV lasix 40mg, continue po lasix daily per cards recs - continue home Singulair -Monitor renal function, continue [place]eda, if cr without improvement, renal consult - resume ACEi - resume Amlodipine 10mg PO daily - Metoprolol 12.5 BID, increased to 25 mg bid - resume stain and ASA while npo - resume lyrica 75mg PO BID - resume Lexapro 20mg Po daily, Resume Klonipin and ativan prn. Psychiatry consult with Dr. Stern who know her from [facility]. DC Seroquel - resume Colace 100mg Po BID - resume simethecone 125mg PO TID -Marinol #Goals of care - DNR/DNI, POLST reviewed FENPPx Fluids: 1 L bolus, reassess Diet: soft chew, thin liquid LIQUIDS. DVTPPx: Heparin SBQ q12 GI PPX: PPI IV PT/OT: pending Code status: DNR/DNI, per polst Dispo: Back to SNF pending clinical course I spent 40 minutes on this encounter, 20 minutes spent on counselling and care coordination D/w RN, general surgery: Dr. Orellana, pulmonary: Dr. Lerma, ID: Dr. Grady. Subjective Date patient seen: Apr 11, 2019 ROS Limited/Unobtainable: No Constitutional: Denies: no symptoms, chills, diaphoresis, fever, malaise, weakness, other HEENT: Denies: no symptoms, eye pain, blurred vision, tearing, double vision, ear pain, ear discharge, nose pain, nose congestion, throat pain, throat swelling, mouth pain, mouth swelling, other Cardiovascular: Denies: no symptoms, chest pain, edema, irregular heart rate, lightheadedness, palpitations, syncope, other Respiratory: Denies: no symptoms, cough, orthopnea, shortness of breath, SOB with excertion, SOB at rest, sputum, stridor, wheezing, other Gastrointestinal/Abdominal: Denies: no symptoms, abdomen distended, abdominal pain, black stools, tarry stools, blood in stool, constipated, diarrhea, difficulty swallowing, nausea, poor appetite, poor fluid intake, rectal bleeding , vomiting, other Genitourinary: Denies: no symptoms, burning, discharge, frequency, flank pain, hematuria, incontinence, pain, urgency, other Neurologic/Psychiatric: Denies: no symptoms, anxiety, depressed, emotional problems, headache, numbness, paresthesia, pre-existing deficit, seizure, tingling, tremors, weakness, other Endocrine: Denies: no symptoms, excessive sweating, flushing, intolerance to cold, intolerance to heat, increased hunger, increased thirst, increased urine, unexplained weight gain, unexplained weight loss, other Hematologic/Lymphatic: Denies: no symptoms, anemia, easy bleeding, easy bruising, other Allergies: Coded Allergies: [place] (Unverified Allergy, Mild, upset stomach, 02/10/19) TOMATO (Unverified Allergy, Mild, upset stomach, 02/10/19) TETRACYCLINE (Unverified Allergy, Unknown, 07/24/14) Subjective alert and awake. Waiting for nuclear stress test. no more episodes of vtach since the after starting and titrating up metoprolol, and dc Seroquel. Objective Last 24 Hour Vital Signs Date Time Temp Pulse Resp B/P (MAP) Pulse Ox O2 Delivery O2 Flow Rate FiO2 04/11/19 08:24 96 Nasal Cannula 2.0 28 04/11/19 08:00 97.1 80 20 142/72 (95) 97 04/11/19 04:00 89 04/11/19 04:00 97.8 88 19 107/52 (70) 98 04/11/19 02:54 97.9 04/11/19 00:00 86 04/11/19 00:00 97.6 94 16 96/48 (64) 94 04/10/19 21:00 Nasal Cannula 2.0 Nasal Cannula 2.0 04/10/19 20:36 98 100/50 04/10/19 20:12 95 Nasal Cannula 2.0 28 04/10/19 20:00 94 04/10/19 20:00 98.0 98 18 100/50 (67) 94 04/10/19 17:35 97.9 04/10/19 16:00 97.9 80 18 97/44 (61) 99 04/10/19 15:31 88 04/10/19 12:00 98.3 83 19 116/55 (75) 97 04/10/19 11:50 81 04/10/19 10:47 75 116/55 04/10/19 10:45 116/55 Intake and Output 04/10/19 04/11/19 18:59 06:59 Intake Total 240 ml 480 ml Output Total 1200 ml 900 ml Balance -960 ml -420 ml Intake Oral 240 ml 480 ml Output Urine Total 1200 ml 900 ml # Voids 3 # Bowel Movements 1 1 Laboratory Tests 04/10/19 11:45: Vancomycin Level Trough 23.2H 04/11/19 07:50: White Blood Count 7.9, Red Blood Count 2.95L, Hemoglobin 8.5L, Hematocrit 27.2L , Mean Corpuscular Volume 92, Mean Corpuscular Hemoglobin 28.7, Mean Corpuscular Hemoglobin Concent 31.2L, Red Cell Distribution Width 14.1, Platelet Count 411, Mean Platelet Volume 5.7L, Neutrophils (%) (Auto) 57.0, Lymphocytes (%) (Auto) 28.3, Monocytes (%) (Auto) 10.5H, Eosinophils (%) (Auto) 3.4H, Basophils (%) (Auto) 0.7, Sodium Level [Pending], Potassium Level [Pending ], Chloride Level [Pending], Carbon Dioxide Level [Pending], Blood Urea Nitrogen [Pending], Creatinine [Pending], Estimat Glomerular Filtration Rate [ Pending], Glucose Level [Pending], Calcium Level [Pending], Total Bilirubin [ Pending], Aspartate Amino Transf (AST/SGOT) [Pending], Alanine Aminotransferase (ALT/SGPT) [Pending], Alkaline Phosphatase [Pending], Total Protein [Pending], Albumin [Pending], Globulin [Pending] Height (Feet): 5 Height (Inches): 4.00 Weight (Pounds): 156 Objective General Appearance: awake Lines, tubes and drains: peripheral HEENT: normocephalic, atraumatic, PERRL, EOMI, no JVD, DRY MM Neck: non-tender, normal alignment, supple Respiratory/Chest: rales and rhonchi Cardiovascular/Chest: tachycardic, regular rhythm, no m/r/g Abdomen: normal bowel sounds, soft, obese, non tender Extremities: normal range of motion, non-tender, normal inspection, moves all ext, no edema Skin Exam: refer to photos , stage 2 sacral decub Neurologic: lethargic, unable to assess, moves all four limbs Musculoskeletal: normal muscle bulk, no effusion, atrophy Philipp Moreau M.D. Apr 11, 2019 09:01
[2019-04-11 09:08] LABS: ALANINE AMINOTRANSFERASE 18 U/L (12-78); ALBUMIN 2.3 G/DL (3.4-5.0); ALBUMIN/GLOBULIN RATIO 0.5 (1.0-2.7); ANION GAP 1 mmol/L (5-15); ASPARTATE AMINO TRANSFERASE 15 U/L (15-37); BILIRUBIN,TOTAL 0.2 MG/DL (0.2-1.0); BLOOD UREA NITROGEN 22 mg/dL (7-18); CALCIUM 9.1 MG/DL (8.5-10.1); CARBON DIOXIDE 36 MMOL/L (21-32); CHLORIDE 104 MMOL/L (98-107); CREATININE 0.7 MG/DL (0.55-1.30); POTASSIUM 3.6 MMOL/L (3.5-5.1); SODIUM 141 MMOL/L (136-145)
[2019-04-11] MEDS: Ascorbic Acid 500mg tab ORAL SCH (09:31)
[2019-04-11] MEDS: Docusate 100mg cap ORAL SCH ×3 (09:31→17:05)
[2019-04-11] MEDS: Pantoprazole Inj IVP SCH ×2 (09:31→21:46)
[2019-04-11] MEDS: Lyrica 75mg cap ORAL SCH ×2 (09:32→17:29)
[2019-04-11] MEDS: Dronabinol 2.5mg Cap ORAL SCH ×2 (09:32→17:29)
[2019-04-11] MEDS: Zinc Sulfate 220mg cap ORAL SCH (09:33)
[2019-04-11] MEDS: Lisinopril 20mg tab ORAL SCH (09:36)
[2019-04-11] MEDS: Heparin 5000 units/ml inj SUBQ SCH ×2 (09:40→21:50)
[2019-04-11] MEDS: Meropenem 1 GM in NS 110 ML IVPB SCH ×2 (09:41→21:46)
[2019-04-11 10:06] LABS: ALKALINE PHOSPHATASE 84 U/L (46-116)
--- NOTE | 2019-04-11 11:52 | Cardiac Electrophysiology PN ---
Assessment/Plan Assessment/Plan 1. Recurrent nonsustained ventricular tachycardia up to 33 beats. Ruled out for OH. The patient's echocardiogram on 03/30/2019 showed ejection fraction 55% to 60%. On metoprolol 25 mg twice a day. Scheduled for nuclear stress test today May need transfer for cardiac cath 2. Congestive heart failure with diastolic dysfunction. On Lasix 40 iv daily 3. Hypertension, on amlodipine 10 mg daily, metoprolol 25 mg b.i.d., Lasix and lisinopril 20 mg daily. 4. Sepsis, on broad spectrum IV antibiotics. 5. Severe chronic obstructive pulmonary disease. CHARLEY RN Subjective Subjective Alert in NAD. No CP or SOB. Had 33 beats of VT on 04/07/19. No CP. Scheduled for stress test today Objective Last 24 Hour Vital Signs Date Time Temp Pulse Resp B/P (MAP) Pulse Ox O2 Delivery O2 Flow Rate FiO2 04/11/19 09:36 142/72 04/11/19 09:00 Nasal Cannula 2.0 Nasal Cannula 2.0 04/11/19 09:00 80 142/72 04/11/19 09:00 80 142/72 04/11/19 08:24 96 Nasal Cannula 2.0 28 04/11/19 08:00 78 04/11/19 08:00 97.1 80 20 142/72 (95) 97 04/11/19 04:00 89 04/11/19 04:00 97.8 88 19 107/52 (70) 98 04/11/19 02:54 97.9 04/11/19 00:00 86 04/11/19 00:00 97.6 94 16 96/48 (64) 94 04/10/19 21:00 Nasal Cannula 2.0 Nasal Cannula 2.0 04/10/19 20:36 98 100/50 04/10/19 20:12 95 Nasal Cannula 2.0 28 04/10/19 20:00 94 04/10/19 20:00 98.0 98 18 100/50 (67) 94 04/10/19 17:35 97.9 04/10/19 16:00 97.9 80 18 97/44 (61) 99 04/10/19 15:31 88 04/10/19 12:00 98.3 83 19 116/55 (75) 97 Intake and Output 04/10/19 04/11/19 18:59 06:59 Intake Total 240 ml 480 ml Output Total 1200 ml 900 ml Balance -960 ml -420 ml Intake Oral 240 ml 480 ml Output Urine Total 1200 ml 900 ml # Voids 3 # Bowel Movements 1 1 Laboratory Tests Test 04/11/19 07:50 White Blood Count 7.9 K/UL (4.8-10.8) Red Blood Count 2.95 M/UL (4.20-5.40) L Hemoglobin 8.5 G/DL (12.0-16.0) L Hematocrit 27.2 % (37.0-47.0) L Mean Corpuscular Volume 92 FL (80-99) Mean Corpuscular Hemoglobin 28.7 PG (27.0-31.0) Mean Corpuscular Hemoglobin Concent 31.2 G/DL (32.0-36.0) L Red Cell Distribution Width 14.1 % (11.6-14.8) Platelet Count 411 K/UL (150-450) Mean Platelet Volume 5.7 FL (6.5-10.1) L Neutrophils (%) (Auto) 57.0 % (45.0-75.0) Lymphocytes (%) (Auto) 28.3 % (20.0-45.0) Monocytes (%) (Auto) 10.5 % (1.0-10.0) H Eosinophils (%) (Auto) 3.4 % (0.0-3.0) H Basophils (%) (Auto) 0.7 % (0.0-2.0) Sodium Level 141 MMOL/L (136-145) Potassium Level 3.6 MMOL/L (3.5-5.1) Chloride Level 104 MMOL/L (98-107) Carbon Dioxide Level 36 MMOL/L (21-32) H Anion Gap 1 mmol/L (5-15) L Blood Urea Nitrogen 22 mg/dL (7-18) H Creatinine 0.7 MG/DL (0.55-1.30) Estimat Glomerular Filtration Rate mL/min (>60) Glucose Level 113 MG/DL (74-106) H Calcium Level 9.1 MG/DL (8.5-10.1) Total Bilirubin 0.2 MG/DL (0.2-1.0) Aspartate Amino Transf (AST/SGOT) 15 U/L (15-37) Alanine Aminotransferase (ALT/SGPT) 18 U/L (12-78) Alkaline Phosphatase 84 U/L (46-116) Total Protein 6.7 G/DL (6.4-8.2) Albumin 2.3 G/DL (3.4-5.0) L Globulin 4.4 g/dL Albumin/Globulin Ratio 0.5 (1.0-2.7) L Objective HEAD AND NECK: Mild JVD. LUNGS: Coarse rhonchi. CARDIOVASCULAR: Regular S1 and S2 with no gallop or murmur and tachycardic. ABDOMEN: Soft. EXTREMITIES: 1+ pitting edema. Lyle Allen MD Apr 11, 2019 11:52
[2019-04-11 12:00] VITALS: BP 135/60
--- NOTE | 2019-04-11 12:16 | Pulmonology Progress Note ---
Assessment/Plan Problems: (1) UTI (urinary tract infection) Assessment & Plan: E coli (2) Sepsis with acute hypoxic respiratory failure (3) CRISTÓBAL (acute kidney injury) (4) COPD (chronic obstructive pulmonary disease) (5) Anemia (6) Anxiety (7) Hypercholesteremia (8) Hyponatremia (9) Acute and chronic respiratory failure ([id number]) (10) Hypertension (11) Protein-calorie malnutrition, mild Assessment/Plan ASSESSMENT: The patient is a 78-year-old female with history of COPD, CHF with diastolic dysfunction, GERD, anemia, hypertension, hyperlipidemia, IBS, half-way resident with pulsating comfort measures only and DNR, presenting with altered mental status, hypertension, likely secondary to UTI with urosepsis and hypoxemia secondary to above. PROBLEM LIST: 1. Hypoxemia likely secondary to urosepsis. 2. E coli UTI and GNR sepsis 3. COPD. 4. Home O2 dependence. 5. CHF with diastolic dysfunction. 6. CRISTÓBAL with hyponatremia. 7. Anemia. 8. Recent admission for gastritis. 9. Hypertension, hyperlipidemia, GERD, IBS. 10. DNAR, PULSE comfort measures only. TREATMENT PLAN: 1. Titrate on FiO2 to keep saturations greater than 90%. 2. F/U cards recs, stress test today, possible transfer for [facility] 3. Abx per ID 4. Monitor volumes and renal function, off IVF, PRN lasix 5. Diet per [employer] with ASPIRATION precautions 6. Monitor mental status. 7. DVT prophylaxis, heparin subcutaneous. 8. The patient is DNAR, and has a POLST: comfort measures only, we will need to discuss further goals of care. Subjective Allergies: Coded Allergies: Arthur (Unverified Allergy, Mild, upset stomach, 02/10/19) TOMATO (Unverified Allergy, Mild, upset stomach, 02/10/19) TETRACYCLINE (Unverified Allergy, Unknown, 07/24/14) Subjective AFVSS, on 2L, better, no cough, no SOB, no FC Objective Last 24 Hour Vital Signs Date Time Temp Pulse Resp B/P (MAP) Pulse Ox O2 Delivery O2 Flow Rate FiO2 04/11/19 09:36 142/72 04/11/19 09:00 Nasal Cannula 2.0 Nasal Cannula 2.0 04/11/19 09:00 80 142/72 12/2/19 09:00 80 142/72 04/11/19 08:24 96 Nasal Cannula 2.0 28 04/11/19 08:00 78 04/11/19 08:00 97.1 80 20 142/72 (95) 97 04/11/19 04:00 89 04/11/19 04:00 97.8 88 19 107/52 (70) 98 04/11/19 02:54 97.9 04/11/19 00:00 86 04/11/19 00:00 97.6 94 16 96/48 (64) 94 04/10/19 21:00 Nasal Cannula 2.0 Nasal Cannula 2.0 04/10/19 20:36 98 100/50 04/10/19 20:12 95 Nasal Cannula 2.0 28 04/10/19 20:00 94 04/10/19 20:00 98.0 98 18 100/50 (67) 94 04/10/19 17:35 97.9 04/10/19 16:00 97.9 80 18 97/44 (61) 99 04/10/19 15:31 88 Intake and Output 04/10/19 04/11/19 19:00 07:00 Intake Total 240 ml 480 ml Output Total 1200 ml 900 ml Balance -960 ml -420 ml Intake Oral 240 ml 480 ml Output Urine Total 1200 ml 900 ml # Voids 3 # Bowel Movements 1 1 General Appearance: WD/WN, no acute distress HEENT: normocephalic, atraumatic, anicteric, mucous membranes moist Respiratory/Chest: chest wall non-tender, lungs clear, normal breath sounds, no respiratory distress, no accessory muscle use Cardiovascular: normal peripheral pulses, normal rate, regular rhythm Abdomen: normal bowel sounds, soft, non tender, no organomegaly, non distended , no mass Extremities: no cyanosis, no clubbing, no edema Laboratory Tests 04/11/19 07:50: White Blood Count 7.9, Red Blood Count 2.95L, Hemoglobin 8.5L, Hematocrit 27.2L , Mean Corpuscular Volume 92, Mean Corpuscular Hemoglobin 28.7, Mean Corpuscular Hemoglobin Concent 31.2L, Red Cell Distribution Width 14.1, Platelet Count 411, Mean Platelet Volume 5.7L, Neutrophils (%) (Auto) 57.0, Lymphocytes (%) (Auto) 28.3, Monocytes (%) (Auto) 10.5H, Eosinophils (%) (Auto) 3.4H, Basophils (%) (Auto) 0.7, Sodium Level 141, Potassium Level 3.6, Chloride Level 104, Carbon Dioxide Level 36H, Anion Gap 1L, Blood Urea Nitrogen 22H, Creatinine 0.7, Estimat Glomerular Filtration Rate , Glucose Level 113H, Calcium Level 9.1, Total Bilirubin 0.2, Aspartate Amino Transf (AST/SGOT) 15, Alanine Aminotransferase (ALT/SGPT) 18, Alkaline Phosphatase 84, Total Protein 6.7, Albumin 2.3L, Globulin 4.4, Albumin/Globulin Ratio 0.5L Current Medications Medications (Trade) Dose Ordered Sig/Wilner Route PRN Reason Start Time Stop Time Status Last Admin Dose Admin Acetaminophen (Tylenol) 650 mg Q4H PRN ORAL Mild - mod Pain/Temp > 100.5 04/03/19 18:15 05/02/19 18:14 04/11/19 02:24 Amlodipine Besylate (Norvasc) 10 mg DAILY ORAL 04/04/19 09:00 05/02/19 08:59 04/10/19 10:47 Ascorbic Acid (Vitamin C) 250 mg DAILY ORAL 04/04/19 09:00 05/01/19 08:59 04/11/19 09:31 Docusate Sodium (Colace) 100 mg THREE TIMES A DAY ORAL 04/04/19 09:00 05/04/19 08:59 04/11/19 09:31 Dronabinol (Marinol) 2.5 mg BID ORAL 04/04/19 09:00 05/04/19 08:59 04/11/19 09:32 Escitalopram Oxalate (Lexapro) 20 mg DAILY ORAL 04/04/19 09:00 04/30/19 14:02 04/11/19 09:32 Heparin Sodium (Porcine) (Heparin 5000 units/ml) 5,000 units EVERY 12 HOURS SUBQ 04/03/19 21:00 04/29/19 09:29 04/11/19 09:40 Hydralazine HCl (Apresoline) 10 mg Q4H PRN IV sbp>150 04/03/19 18:00 04/30/19 17:59 Lisinopril (Prinivil) 20 mg DAILY ORAL 04/04/19 09:00 05/02/19 08:59 04/11/19 09:36 Meropenem 1 gm/ Sodium Chloride 110 ml @ 220 mls/hr Q12HR IVPB 04/08/19 21:00 04/14/19 23:59 04/11/19 09:41 Methocarbamol (Robaxin) 500 mg Q6H PRN ORAL muscle spasms 04/03/19 18:00 05/02/19 17:59 04/06/19 02:05 Metoprolol Tartrate (Lopressor) 25 mg Q12HR ORAL 04/08/19 09:00 05/05/19 08:59 04/10/19 20:36 Multivitamins (Multivitamins) 1 tab DAILY ORAL 04/04/19 09:00 05/01/19 08:59 04/11/19 09:31 Ondansetron HCl (Zofran) 4 mg Q4H PRN IVP Nausea & Vomiting 04/03/19 18:15 05/01/19 14:14 04/10/19 20:34 Pantoprazole (Protonix) 40 mg EVERY 12 HOURS IVP 04/03/19 21:00 04/29/19 09:59 04/11/19 09:31 Polyethylene Glycol (Miralax) 17 gm DAILY PRN ORAL Constipation 04/04/19 08:00 05/04/19 07:59 04/04/19 11:29 Pregabalin (Lyrica) 75 mg BID ORAL 04/04/19 09:00 05/04/19 08:59 04/11/19 09:32 Prochlorperazine (Compazine) 10 mg Q6H PRN IVP Nausea & Vomiting 04/06/19 12:15 05/06/19 12:14 04/11/19 03:51 Regadenoson (Lexiscan) 0.4 mg ONCE PRN IV stress test 04/08/19 09:00 04/11/19 23:59 04/11/19 12:12 Vancomycin HCl (Vanco rx to dose) 1 ea DAILY PRN MISC Per rx protocol 04/08/19 14:45 05/08/19 14:44 Vancomycin HCl 1 gm/Dextrose 275 ml @ 183.708 mls/hr Q24H IVPB 04/10/19 15:00 04/15/19 14:59 04/10/19 13:55 Zinc Sulfate (Zinc Sulfate) 220 mg DAILY ORAL 04/09/19 09:00 04/19/19 08:59 04/11/19 09:33 Rafael Lerma MD Apr 11, 2019 12:15
--- NOTE | 2019-04-11 15:14 | Diagnostic Imaging Report ---
Indication: chest pain Technique: The study was conducted under the supervision of a button riveter. lexiscan (regadenoson) infusion over 10 seconds followed by intravenous administration of 32 mCi of technetium 99m Myoview was performed. Three plane SPECT imaging of the heart was then performed. A resting study was performed as part of the one-day protocol with 10.8 mCi of technetium 99m myoview injected intravenously at that time. Three plane SPECT imaging of the heart was obtained. Comparison: None Clinical data: 1. Clinical response: Non ischemic 2. Electrocardiographic response: Non ischemic Findings: The myocardial perfusion scan demonstrates no definite myocardial perfusion defects. LVEF estimated at 56% IMPRESSION: Negative evaluation
[2019-04-11] MEDS: Vancomycin 1gm/D5W 275ml IVPB SCH ×2 (15:59)
[2019-04-11 16:00] VITALS: BP 127/65
--- NOTE | 2019-04-11 18:00 | Surgery Progress Note ---
Surgery Progress Note Subjective Additional Comments leukocytosis resolved states she feels better less pain but wants more pain medication no n/v//fc Objective Last 24 Hour Vital Signs Date Time Temp Pulse Resp B/P (MAP) Pulse Ox O2 Delivery O2 Flow Rate FiO2 04/11/19 16:00 91 04/11/19 16:00 98.6 75 19 127/65 (85) 99 04/11/19 12:00 97.1 82 19 135/60 (85) 99 04/11/19 12:00 78 04/11/19 09:36 142/72 04/11/19 09:00 Nasal Cannula 2.0 Nasal Cannula 2.0 04/11/19 09:00 80 142/72 04/11/19 09:00 80 142/72 04/11/19 08:24 96 Nasal Cannula 2.0 28 04/11/19 08:00 78 04/11/19 08:00 97.1 80 20 142/72 (95) 97 04/11/19 04:00 89 04/11/19 04:00 97.8 88 19 107/52 (70) 98 04/11/19 02:54 97.9 04/11/19 00:00 86 04/11/19 00:00 97.6 94 16 96/48 (64) 94 04/10/19 21:00 Nasal Cannula 2.0 Nasal Cannula 2.0 04/10/19 20:36 98 100/50 04/10/19 20:12 95 Nasal Cannula 2.0 28 04/10/19 20:00 94 04/10/19 20:00 98.0 98 18 100/50 (67) 94 I&O Intake and Output 04/10/19 04/11/19 19:00 07:00 Intake Total 240 ml 480 ml Output Total 1200 ml 900 ml Balance -960 ml -420 ml Intake Oral 240 ml 480 ml Output Urine Total 1200 ml 900 ml # Voids 3 # Bowel Movements 1 1 Dressing: saturated Wound: other Drains: other Cardiovascular: RSR Respiratory: decreased breath sounds Abdomen: soft, present bowel sounds Extremities: no cyanosis, other Laboratory Tests Test 04/11/19 07:50 04/11/19 15:25 White Blood Count 7.9 K/UL (4.8-10.8) Red Blood Count 2.95 M/UL (4.20-5.40) L Hemoglobin 8.5 G/DL (12.0-16.0) L Hematocrit 27.2 % (37.0-47.0) L Mean Corpuscular Volume 92 FL (80-99) Mean Corpuscular Hemoglobin 28.7 PG (27.0-31.0) Mean Corpuscular Hemoglobin Concent 31.2 G/DL (32.0-36.0) L Red Cell Distribution Width 14.1 % (11.6-14.8) Platelet Count 411 K/UL (150-450) Mean Platelet Volume 5.7 FL (6.5-10.1) L Neutrophils (%) (Auto) 57.0 % (45.0-75.0) Lymphocytes (%) (Auto) 28.3 % (20.0-45.0) Monocytes (%) (Auto) 10.5 % (1.0-10.0) H Eosinophils (%) (Auto) 3.4 % (0.0-3.0) H Basophils (%) (Auto) 0.7 % (0.0-2.0) Sodium Level 141 MMOL/L (136-145) Potassium Level 3.6 MMOL/L (3.5-5.1) Chloride Level 104 MMOL/L (98-107) Carbon Dioxide Level 36 MMOL/L (21-32) H Anion Gap 1 mmol/L (5-15) L Blood Urea Nitrogen 22 mg/dL (7-18) H Creatinine 0.7 MG/DL (0.55-1.30) Estimat Glomerular Filtration Rate mL/min (>60) Glucose Level 113 MG/DL (74-106) H Calcium Level 9.1 MG/DL (8.5-10.1) Total Bilirubin 0.2 MG/DL (0.2-1.0) Aspartate Amino Transf (AST/SGOT) 15 U/L (15-37) Alanine Aminotransferase (ALT/SGPT) 18 U/L (12-78) Alkaline Phosphatase 84 U/L (46-116) Total Protein 6.7 G/DL (6.4-8.2) Albumin 2.3 G/DL (3.4-5.0) L Globulin 4.4 g/dL Albumin/Globulin Ratio 0.5 (1.0-2.7) L Arterial Blood pH 7.467 (7.350-7.450) Arterial Blood Partial Pressure CO2 52.7 mmHg (35.0-45.0) H Arterial Blood Partial Pressure O2 125.4 mmHg (75.0-100.0) H Arterial Blood HCO3 37.2 mmol/L (22.0-26.0) H Arterial Blood Oxygen Saturation 98.3 % (95-100) Arterial Blood Base Excess 12.1 (-2-2) *H Scooby Test Positive Plan Problems: (1) Leukocytosis Assessment & Plan: leukocytosis fluctuating labs noted exam stable Abx as per ID cont IV abx CT noted reviewed. Unlikely etiology of leukocytosis dilated biliary tract without obstruction. Will monitor. 1. Moderate stool ball within the rectum. Correlate for impaction. 2. Dilated biliary tree, common bile duct measuring 1.4 cm. No obstructing stone or mass. 3. Moderate to severe right hydronephrosis which is favored chronic with a few stones layering dependently in the renal pelvis. No ureteral dilatation. 4. Leiomyomatous uterus. 1. Nonspecific biliary dilatation. 2. No sonographic evidence of acute cholecystitis. 3. Severe right hydronephrosis without definite stone identified. Nonobstructing 5 mm left renal stone. 4. Mild prominence of the bladder wall is nonspecific and may be secondary to underdistention. Further evaluation could be performed with urinalysis if clinically indicated. improving comfortable PPI tums trend labs (2) Decubitus skin ulcer Assessment & Plan: Pt presented on admission with moisture intertrigo R and L breasts. both breast folds are erythematous with denuded skin . DTPI noted to Upper R buttocks. Base of wound is maroon is indurated and elongated with surrounding non-blanching erythema. (L)1cm x (W)4cm. Both heels are soft pink and blanchable.No other skin concerns noted. stable Pt presented on admission with DTPI R sacrum which has now evolved into a full thickness pressure injury. Base of wound is moist with 20% slough, 80% granular. Periwound is pink and non-tender when palpated.(L)3cm x (W)1.8cm. Moisture Intertrigo both breasts resolving .Less erythema noted. Both heels are soft but easily blanches. Tx.Plan: Apply Hydraguard Silicone cream to R and L breasts Daily. Cleanse R sacral wound with saline. Apply TheraHoney. Apply Moisture Barrier periwound. Cover with Optifoam drsg. Change every 3days and prn. Apply Cavilon Skin Barrier to both heels. Cover each heels with Optifoam drsg. Change every 7 days and prn. APM/MARCUS Mattress overlay. Reposition at least every 2hours or as tolerated. Off-load heels with pillow. (3) Limited mobility (4) Constipation (5) Protein-calorie malnutrition, mild Assessment & Plan: DAILY ESTIMATED NEEDS: Needs based on Wound, cardiac, pulmonary, 46kg 25-30 kcals/kg 0911-8158 total kcals 1.25-1.5 g protein/kg 58-69 g total protein 25-30 mL/kg [id number] total fluid mLs NUTRITION DIAGNOSIS: * Increased kcal/prot needs R/T wound healing as evidenced by pt admitted w/ DTPI R sacrum wound-> now evolved into full thickness wound. (UPDATED) * Swallowing difficulty R/T dysphagia as evidenced by pt on liquify pureed, NTL, w/ poor and variable PO intake-> texture now advanced to soft easy chew w/ thin liquids, cont w/ poor PO intake. (UPDATED) CURRENT DIET:LOW NA/ SOFT EASY CHEW W/ THIN LIQUIDS + ENSURE TID PO DIET RECOMMENDATIONS: Liberalized REGULAR w/ poor PO (texture per DISABILITY AIDE) + Ensure TID ADDITIONAL RECOMMENDATIONS: * Per SNF record, ht=57", kg=669obp. * Wound healing: Continue MVI x 1, Vit C 250mg QD : add ZnSO4 220mg qd X 10 DAYS : Edilberto 1pkt BID as tolerated * Igor count x 72 hrs completed- INADEQUATE PO INTAKE * W/ continued nausea- consider giving Zofran ~30 mins prior to meal times * Monitor lytes closely w/ lasix, replete as needed Robert Orellana Apr 11, 2019 18:00
[2019-04-11] MEDS: clonazePAM 0.5mg tab ORAL SCH (19:26)
--- NOTE | 2019-04-11 19:30 | Cardiology Report ---
APPROVED REPORT EKG Measurement Heart [id number] ID [id number] Suspect arm lead reversal, interpretation assumes no reversal Sinus tachycardia with premature atrial complexes with aberrant conduction Right axis deviation Septal infarct, age undetermined Abnormal ECG
[2019-04-11 20:00] VITALS: BP 111/61
[2019-04-12] VITALS: BP 115/67
[2019-04-12] MEDS: Methocarbamol 500mg tab ORAL PRN (02:27)
[2019-04-12 04:00] VITALS: BP 129/61
[2019-04-12 08:03] LABS: BASOPHILS % (AUTO) 0.6 % (0.0-2.0); EOSINOPHILS % (AUTO) 2.5 % (0.0-3.0); HEMATOCRIT 27.6 % (37.0-47.0); HEMOGLOBIN 8.6 G/DL (12.0-16.0); LYMPHOCYTES % (AUTO) 29.7 % (20.0-45.0); MEAN CORPUSCULAR VOLUME 93 FL (80-99); MONOCYTES % (AUTO) 7.6 % (1.0-10.0); NEUTROPHILS % (AUTO) 59.7 % (45.0-75.0); PLATELET COUNT 459 K/UL (150-450); RED BLOOD COUNT 2.95 M/UL (4.20-5.40); RED CELL DISTRIBUTION WIDTH 14.1 % (11.6-14.8); WHITE BLOOD COUNT 7.9 K/UL (4.8-10.8)
[2019-04-12 08:09] VITALS: BP 134/81
--- NOTE | 2019-04-12 08:11 | General Progress Note ---
Assessment/Plan Status: not improved, unchanged Assessment/Plan: Assessment/Plan Problems: (1) GERD (gastroesophageal reflux disease) ICD Codes: K21.9 - Gastro-esophageal reflux disease without esophagitis SNOMED: 960259174 (2) Protein-calorie malnutrition, mild ICD Codes: E44.1 - Mild protein-calorie malnutrition SNOMED: 20693175 (3) Anemia ICD Codes: D64.9 - Anemia, unspecified SNOMED: 051963344 Assessment/Plan History of endoscopy and colonoscopy on February 11, 2019 noted with gastritis and one colonic polyp. No plan for any GI procedures at this time given recent history of procedure. zofran prn, compazine for persistent nausea. Reglan has drug to drug interaction. anemia work up reviewed Fecal occult blood stool to rule out any GI bleed, >>>>negative PPI daily Monitor H&H, PRN transfusions Antibiotics per infectious diseases passed swallow eval for puree diet but poor po intake good response to marinol wound care will fu Subjective ROS Limited/Unobtainable: No Allergies: Coded Allergies: Brantley (Unverified Allergy, Mild, upset stomach, 02/10/19) TOMATO (Unverified Allergy, Mild, upset stomach, 02/10/19) TETRACYCLINE (Unverified Allergy, Unknown, 07/24/14) Objective Last 24 Hour Vital Signs Date Time Temp Pulse Resp B/P (MAP) Pulse Ox O2 Delivery O2 Flow Rate FiO2 04/12/19 04:00 97.7 72 17 129/61 (83) 97 04/12/19 04:00 76 04/12/19 00:00 84 04/12/19 00:00 98.2 85 18 115/67 (83) 99 04/11/19 21:58 86 146/75 04/11/19 21:00 Nasal Cannula 2.0 Nasal Cannula 2.0 04/11/19 20:14 94 Nasal Cannula 2.0 28 04/11/19 20:00 97.9 88 18 111/61 (78) 96 04/11/19 20:00 88 04/11/19 16:00 91 04/11/19 16:00 98.6 75 19 127/65 (85) 99 04/11/19 12:00 97.1 82 19 135/60 (85) 99 04/11/19 12:00 78 04/11/19 09:36 142/72 04/11/19 09:00 Nasal Cannula 2.0 Nasal Cannula 2.0 04/11/19 09:00 80 142/72 04/11/19 09:00 80 142/72 04/11/19 08:24 96 Nasal Cannula 2.0 28 Intake and Output 04/11/19 04/12/19 18:59 06:59 Intake Total 720 ml 240 ml Output Total 1400 ml 600 ml Balance -680 ml -360 ml Intake Oral 720 ml 240 ml Output Urine Total 1400 ml 600 ml # Voids 1 # Bowel Movements 3 Laboratory Tests 04/11/19 15:25: Arterial Blood pH 7.467H, Arterial Blood Partial Pressure CO2 52.7H, Arterial Blood Partial Pressure O2 125.4H, Arterial Blood HCO3 37.2H, Arterial Blood Oxygen Saturation 98.3, Arterial Blood Base Excess 12.1*H, Scooby Test Positive 04/12/19 07:30: White Blood Count 7.9, Red Blood Count 2.95L, Hemoglobin 8.6L, Hematocrit 27.6L , Mean Corpuscular Volume 93, Mean Corpuscular Hemoglobin 29.1, Mean Corpuscular Hemoglobin Concent 31.2L, Red Cell Distribution Width 14.1, Platelet Count 459H, Mean Platelet Volume 5.9L, Neutrophils (%) (Auto) 59.7, Lymphocytes (%) (Auto) 29.7, Monocytes (%) (Auto) 7.6, Eosinophils (%) (Auto) 2.5, Basophils (%) (Auto) 0.6, Sodium Level [Pending], Potassium Level [Pending] , Chloride Level [Pending], Carbon Dioxide Level [Pending], Blood Urea Nitrogen [Pending], Creatinine [Pending], Estimat Glomerular Filtration Rate [Pending], Glucose Level [Pending], Calcium Level [Pending], Total Bilirubin [Pending], Aspartate Amino Transf (AST/SGOT) [Pending], Alanine Aminotransferase (ALT/SGPT ) [Pending], Alkaline Phosphatase [Pending], Total Protein [Pending], Albumin [ Pending], Globulin [Pending] Height (Feet): 5 Height (Inches): 4.00 Weight (Pounds): 156 General Appearance: alert EENT: normal ENT inspection Neck: supple Cardiovascular: normal rate Respiratory/Chest: decreased breath sounds Abdomen: normal bowel sounds, non tender, soft Extremities: non-tender Kapil Arshad MD Apr 12, 2019 08:11
[2019-04-12 08:16] LABS: ALANINE AMINOTRANSFERASE 18 U/L (12-78); ALBUMIN 2.5 G/DL (3.4-5.0); ALBUMIN/GLOBULIN RATIO 0.6 (1.0-2.7); ALKALINE PHOSPHATASE 88 U/L (46-116); ANION GAP -2 mmol/L (5-15); ASPARTATE AMINO TRANSFERASE 17 U/L (15-37); BILIRUBIN,TOTAL 0.2 MG/DL (0.2-1.0); BLOOD UREA NITROGEN 17 mg/dL (7-18); CALCIUM 9.1 MG/DL (8.5-10.1); CARBON DIOXIDE 40 MMOL/L (21-32); CHLORIDE 101 MMOL/L (98-107); CREATININE 0.7 MG/DL (0.55-1.30); SODIUM 139 MMOL/L (136-145)
[2019-04-12] MEDS: Lyrica 75mg cap ORAL SCH (08:35)
[2019-04-12] MEDS: Pantoprazole Inj IVP SCH (08:35)
[2019-04-12] MEDS: Metoprolol 25mg tab ORAL SCH (08:36)
[2019-04-12] MEDS: Zinc Sulfate 220mg cap ORAL SCH (08:36)
[2019-04-12] MEDS: clonazePAM 0.5mg tab ORAL SCH (08:36)
[2019-04-12] MEDS: Dronabinol 2.5mg Cap ORAL SCH (08:36)
[2019-04-12] MEDS: Docusate 100mg cap ORAL SCH ×2 (08:36→12:56)
[2019-04-12] MEDS: Ascorbic Acid 500mg tab ORAL SCH (08:36)
[2019-04-12] MEDS: Heparin 5000 units/ml inj SUBQ SCH (08:37)
[2019-04-12] MEDS: Meropenem 1 GM in NS 110 ML IVPB SCH (08:38)
[2019-04-12] MEDS: Lisinopril 20mg tab ORAL SCH (08:38)
--- NOTE | 2019-04-12 10:14 | General Progress Note ---
Assessment/Plan Problem List: (1) Acute and chronic respiratory failure (bjiov-jh-wbgduvr) ICD Codes: J96.20 - Acute and chr resp failure, unsp w hypoxia or hypercapnia SNOMED: 63724926 (2) Respiratory failure with hypoxia ICD Codes: J96.91 - Respiratory failure, unspecified with hypoxia SNOMED: 17719542447734242 (3) Gram-negative bacteremia ICD Codes: R78.81 - Bacteremia SNOMED: 905797662330 (4) Severe sepsis ICD Codes: A41.9 - Sepsis, unspecified organism; R65.20 - Severe sepsis without septic shock SNOMED: 22609659 (5) CRISTÓBAL (acute kidney injury) ICD Codes: N17.9 - Acute kidney failure, unspecified SNOMED: 92949580, 1848644, 575411279 (6) UTI (urinary tract infection) ICD Codes: N39.0 - Urinary tract infection, site not specified SNOMED: 17370608, 47652973, 352006376 (7) Hyponatremia ICD Codes: E87.1 - Hypo-osmolality and hyponatremia SNOMED: 45765793 (8) COPD (chronic obstructive pulmonary disease) ICD Codes: J44.9 - Chronic obstructive pulmonary disease, unspecified SNOMED: 79138319 (9) Anemia ICD Codes: D64.9 - Anemia, unspecified SNOMED: 953175804 (10) Anxiety ICD Codes: F41.9 - Anxiety disorder, unspecified SNOMED: 17703255 (11) Hypertension ICD Codes: I10 - Essential (primary) hypertension SNOMED: 28744459 (12) History of breast cancer ICD Codes: Z85.3 - Personal history of malignant neoplasm of breast SNOMED: 388248580 (13) Diastolic CHF ICD Codes: I50.30 - Unspecified diastolic (congestive) heart failure SNOMED: 96398169, 064418389 (14) Hypercholesteremia ICD Codes: E78.00 - Pure hypercholesterolemia, unspecified SNOMED: 47287990 (15) Protein-calorie malnutrition, mild ICD Codes: E44.1 - Mild protein-calorie malnutrition SNOMED: 41845469 Status: not improved, unchanged Assessment/Plan: 78-year-old female with PMHx of COPD on 2L O2, HTN, diastolic CHF, chronic, osteoporosis, IBS-C, DDD, anemia and UTI sent from SNF for fever, lethargy, and congestion. # multiple runs of vtach- most recently 33 beats. r/o AR- Trops negative, EKG ordered. stress test per cardiology #Severe sepsis/ septic shock secondary to pneumonia, ? aspiration ?HCAP vs. UTI , gram negative bacteremia, gram negative UTI. resolving. #Acute on chronic hypoxic hypercarbic respiratory failure- responded to non invasive positive pressure ventilation #CRISTÓBAL- prerenal- resolved, #diastolic CHF, possible acute exacerbation #Hyponatremia- hypovolemic, resolved #COPD on home O2, doubt exacerbation #HTN, HLD #Normocytic Anemia- stable #Anxiety/depression #Mild protein calorie malnutrition #Hypernatremia over the weekend- resolved #persistent nausea and abdominal pain #Metabolic alkalosis -Stress test per cardiology for ventricular tachycardias- negative, AR ruled out -Broad spectrum antibiotics: s/p Zosyn, Vancomycin and Azithromycin. Renal dose. Per ID switch to Amikacin once and meropenem day , now also on Vancomycin (04/07-) .d/w Dr. Grady, will add vancomycin. Get abd US. repeat cultures. follow up sputum culture. MRSA -bipap prn, titrate to keep SpO2 >90% -ID and pulmonary consults appreciated -Repeat Echocardiogram reviewed - Duo-Nebs Q6hr PRN SOB/Wheezing -One time IV lasix 40mg, received po lasix. stopped, now with metabolic alkalosis- also hypercarbia. Will give a dose of Diamox. recheck ABG - continue home Singulair -Monitor renal function, continue Esqueda, if cr without improvement, renal consult - resume ACEi - resume Amlodipine 10mg PO daily - Metoprolol 12.5 BID, increase to 25 mg bid - resume stain and ASA while npo - resume lyrica 75mg PO BID - resume Lexapro 20mg Po daily, Resume Klonipin and ativan prn. Psychiatry consult with Dr. Stern who know her from [facility]. DC Seroquel - resume Colace 100mg Po BID - resume simethecone 125mg PO TID -Marinol #Goals of care - DNR/DNI, POLST reviewed FENPPx Fluids: 1 L bolus, reassess Diet: soft chew, thin liquid LIQUIDS. DVTPPx: Heparin SBQ q12 GI PPX: PPI IV PT/OT: pending Code status: DNR/DNI, per polst Dispo: Back to SNF pending clinical course I spent 40 minutes on this encounter, 20 minutes spent on counselling and care coordination I spent an additional 32 minutes in discussing patient's stauts with her sister Diane. D/w RN, general surgery: Dr. Orellana, ID: Dr. Grady. Subjective Date patient seen: Apr 12, 2019 ROS Limited/Unobtainable: No Constitutional: Denies: no symptoms, chills, diaphoresis, fever, malaise, weakness, other HEENT: Denies: no symptoms, eye pain, blurred vision, tearing, double vision, ear pain, ear discharge, nose pain, nose congestion, throat pain, throat swelling, mouth pain, mouth swelling, other Cardiovascular: Denies: no symptoms, chest pain, edema, irregular heart rate, lightheadedness, palpitations, syncope, other Respiratory: Denies: no symptoms, cough, orthopnea, shortness of breath, SOB with excertion, SOB at rest, sputum, stridor, wheezing, other Gastrointestinal/Abdominal: Denies: no symptoms, abdomen distended, abdominal pain, black stools, tarry stools, blood in stool, constipated, diarrhea, difficulty swallowing, nausea, poor appetite, poor fluid intake, rectal bleeding , vomiting, other Genitourinary: Denies: no symptoms, burning, discharge, frequency, flank pain, hematuria, incontinence, pain, urgency, other Neurologic/Psychiatric: Denies: no symptoms, anxiety, depressed, emotional problems, headache, numbness, paresthesia, pre-existing deficit, seizure, tingling, tremors, weakness, other Endocrine: Denies: no symptoms, excessive sweating, flushing, intolerance to cold, intolerance to heat, increased hunger, increased thirst, increased urine, unexplained weight gain, unexplained weight loss, other Hematologic/Lymphatic: Denies: no symptoms, anemia, easy bleeding, easy bruising, other Allergies: Coded Allergies: [place] (Unverified Allergy, Mild, upset stomach, 02/10/19) TOMATO (Unverified Allergy, Mild, upset stomach, 02/10/19) TETRACYCLINE (Unverified Allergy, Unknown, 07/24/14) Subjective Drowsy. ABG showed marked elevated co3 to 40 and metabolic alkalosis. and hypercapnia, d/w and she was supposed to be placed on bipap last night, unclear wheather or not she was on bipap Objective Last 24 Hour Vital Signs Date Time Temp Pulse Resp B/P (MAP) Pulse Ox O2 Delivery O2 Flow Rate FiO2 04/12/19 08:38 134/81 04/12/19 08:36 72 134/81 04/12/19 08:36 72 134/81 04/12/19 08:09 97.7 72 17 134/81 (98) 97 04/12/19 04:00 97.7 72 17 129/61 (83) 97 04/12/19 04:00 76 04/12/19 00:00 84 04/12/19 00:00 98.2 85 18 115/67 (83) 99 04/11/19 21:58 86 146/75 04/11/19 21:00 Nasal Cannula 2.0 Nasal Cannula 2.0 04/11/19 20:14 94 Nasal Cannula 2.0 28 04/11/19 20:00 97.9 88 18 111/61 (78) 96 04/11/19 20:00 88 04/11/19 16:00 91 04/11/19 16:00 98.6 75 19 127/65 (85) 99 04/11/19 12:00 97.1 82 19 135/60 (85) 99 04/11/19 12:00 78 Intake and Output 04/11/19 04/12/19 18:59 06:59 Intake Total 720 ml 240 ml Output Total 1400 ml 600 ml Balance -680 ml -360 ml Intake Oral 720 ml 240 ml Output Urine Total 1400 ml 600 ml # Voids 1 # Bowel Movements 3 Laboratory Tests 04/11/19 15:25: Arterial Blood pH 7.467H, Arterial Blood Partial Pressure CO2 52.7H, Arterial Blood Partial Pressure O2 125.4H, Arterial Blood HCO3 37.2H, Arterial Blood Oxygen Saturation 98.3, Arterial Blood Base Excess 12.1*H, Scooby Test Positive 04/12/19 07:30: White Blood Count 7.9, Red Blood Count 2.95L, Hemoglobin 8.6L, Hematocrit 27.6L , Mean Corpuscular Volume 93, Mean Corpuscular Hemoglobin 29.1, Mean Corpuscular Hemoglobin Concent 31.2L, Red Cell Distribution Width 14.1, Platelet Count 459H, Mean Platelet Volume 5.9L, Neutrophils (%) (Auto) 59.7, Lymphocytes (%) (Auto) 29.7, Monocytes (%) (Auto) 7.6, Eosinophils (%) (Auto) 2.5, Basophils (%) (Auto) 0.6, Sodium Level 139, Potassium Level 4.0, Chloride Level 101, Carbon Dioxide Level 40H, Anion Gap -2L, Blood Urea Nitrogen 17, Creatinine 0.7, Estimat Glomerular Filtration Rate , Glucose Level 111H, Calcium Level 9.1, Total Bilirubin 0.2, Aspartate Amino Transf (AST/SGOT) 17, Alanine Aminotransferase (ALT/SGPT) 18, Alkaline Phosphatase 88, Total Protein 6.9, Albumin 2.5L, Globulin 4.4, Albumin/Globulin Ratio 0.6L Height (Feet): 5 Height (Inches): 4.00 Weight (Pounds): 156 Objective General Appearance: drowsy Lines, tubes and drains: peripheral HEENT: normocephalic, atraumatic, PERRL, EOMI, no JVD, DRY MM Neck: non-tender, normal alignment, supple Respiratory/Chest: rales and rhonchi Cardiovascular/Chest: tachycardic, regular rhythm, no m/r/g Abdomen: normal bowel sounds, soft, obese, non tender Extremities: normal range of motion, non-tender, normal inspection, moves all ext, no edema Skin Exam: poor turger, refer to photos , stage 2 sacral decub Neurologic: lethargic, unable to assess, moves all four limbs Musculoskeletal: normal muscle bulk, no effusion, atrophy Philipp Moreau M.D. Apr 12, 2019 10:14
[2019-04-12] MEDS ORDERED: acetaZOLAMIDE 500mg Inj IVP ONE (10:30)
[2019-04-12 11:36] VITALS: BP 162/72
--- NOTE | 2019-04-12 11:48 | Cardiac Electrophysiology PN ---
Assessment/Plan Assessment/Plan 1. Recurrent nonsustained ventricular tachycardia up to 33 beats. Ruled out for DE. The patient's echocardiogram on 03/30/2019 showed ejection fraction 55% to 60% . On metoprolol 25 mg twice a day. Nuclear stress test 04/11/19 showed no ischemia or scar?! May need transfer for cardiac cath and EP study after cleared by ID 2. Congestive heart failure with diastolic dysfunction. On Lasix 40 iv daily 3. Hypertension, on amlodipine 10 mg daily, metoprolol 25 mg b.i.d., Lasix and lisinopril 20 mg daily. 4. Sepsis, on broad spectrum IV antibiotics. 5. Severe chronic obstructive pulmonary disease. CHARLEY RN Subjective Subjective Alert in NAD. No CP or SOB. Had 33 beats of VT on 04/07/19. No CP. Stress test yesterday showed no ischemia or scar Objective Last 24 Hour Vital Signs Date Time Temp Pulse Resp B/P (MAP) Pulse Ox O2 Delivery O2 Flow Rate FiO2 04/12/19 11:36 97.7 72 17 162/72 (102) 97 04/12/19 09:05 97.7 04/12/19 08:38 134/81 04/12/19 08:36 72 134/81 04/12/19 08:36 72 134/81 04/12/19 08:09 97.7 72 17 134/81 (98) 97 04/12/19 07:58 84 04/12/19 04:00 97.7 72 17 129/61 (83) 97 04/12/19 04:00 76 04/12/19 00:00 84 04/12/19 00:00 98.2 85 18 115/67 (83) 99 04/11/19 21:58 86 146/75 04/11/19 21:00 Nasal Cannula 2.0 Nasal Cannula 2.0 04/11/19 20:14 94 Nasal Cannula 2.0 28 04/11/19 20:00 97.9 88 18 111/61 (78) 96 04/11/19 20:00 88 04/11/19 16:00 91 04/11/19 16:00 98.6 75 19 127/65 (85) 99 04/11/19 12:00 97.1 82 19 135/60 (85) 99 04/11/19 12:00 78 Intake and Output 04/11/19 04/12/19 18:59 06:59 Intake Total 720 ml 240 ml Output Total 1400 ml 600 ml Balance -680 ml -360 ml Intake Oral 720 ml 240 ml Output Urine Total 1400 ml 600 ml # Voids 1 # Bowel Movements 3 Laboratory Tests Test 04/11/19 15:25 04/12/19 07:30 04/12/19 10:32 Arterial Blood pH 7.467 (7.350-7.450) 7.426 (7.350-7.450) Arterial Blood Partial Pressure CO2 52.7 mmHg (35.0-45.0) H 53.6 mmHg (35.0-45.0) H Arterial Blood Partial Pressure O2 125.4 mmHg (75.0-100.0) H 99.0 mmHg (75.0-100.0) Arterial Blood HCO3 37.2 mmol/L (22.0-26.0) H 34.0 mmol/L (22.0-26.0) H Arterial Blood Oxygen Saturation 98.3 % (95-100) 97.0 % (95-100) Arterial Blood Base Excess 12.1 (-2-2) *H 8.9 (-2-2) H Scooby Test Positive Positive White Blood Count 7.9 K/UL (4.8-10.8) Red Blood Count 2.95 M/UL (4.20-5.40) L Hemoglobin 8.6 G/DL (12.0-16.0) L Hematocrit 27.6 % (37.0-47.0) L Mean Corpuscular Volume 93 FL (80-99) Mean Corpuscular Hemoglobin 29.1 PG (27.0-31.0) Mean Corpuscular Hemoglobin Concent 31.2 G/DL (32.0-36.0) L Red Cell Distribution Width 14.1 % (11.6-14.8) Platelet Count 459 K/UL (150-450) H Mean Platelet Volume 5.9 FL (6.5-10.1) L Neutrophils (%) (Auto) 59.7 % (45.0-75.0) Lymphocytes (%) (Auto) 29.7 % (20.0-45.0) Monocytes (%) (Auto) 7.6 % (1.0-10.0) Eosinophils (%) (Auto) 2.5 % (0.0-3.0) Basophils (%) (Auto) 0.6 % (0.0-2.0) Sodium Level 139 MMOL/L (136-145) Potassium Level 4.0 MMOL/L (3.5-5.1) Chloride Level 101 MMOL/L (98-107) Carbon Dioxide Level 40 MMOL/L (21-32) H Anion Gap -2 mmol/L (5-15) L Blood Urea Nitrogen 17 mg/dL (7-18) Creatinine 0.7 MG/DL (0.55-1.30) Estimat Glomerular Filtration Rate mL/min (>60) Glucose Level 111 MG/DL (74-106) H Calcium Level 9.1 MG/DL (8.5-10.1) Total Bilirubin 0.2 MG/DL (0.2-1.0) Aspartate Amino Transf (AST/SGOT) 17 U/L (15-37) Alanine Aminotransferase (ALT/SGPT) 18 U/L (12-78) Alkaline Phosphatase 88 U/L (46-116) Total Protein 6.9 G/DL (6.4-8.2) Albumin 2.5 G/DL (3.4-5.0) L Globulin 4.4 g/dL Albumin/Globulin Ratio 0.6 (1.0-2.7) L Objective HEAD AND NECK: Mild JVD. LUNGS: Coarse rhonchi. CARDIOVASCULAR: Regular S1 and S2 with no gallop or murmur and tachycardic. ABDOMEN: Soft. EXTREMITIES: 1+ pitting edema. Lyle Allen MD Apr 12, 2019 11:48
--- NOTE | 2019-04-12 13:44 | Discharge Summary ---
Discharge Summary Hospital Course Date of Admission Mar 30, 2019 at 06:16 Date of Discharge 04/12/2019 Admitting Diagnosis RESPIRATORY FAILURE HPI Brooke Sorensen is a 78 year old female who was admitted on Mar 30, 2019 at 06: 16 for ALOC Consultations Pulmonary: Dr. Lerma ID: Dr. Grady Wound: Hospital Course 78-year-old female with PMHx of COPD on 2L O2, HTN, diastolic CHF, chronic, osteoporosis, IBS-C, DDD, anemia and UTI sent from SNF for fever, lethargy, and congestion. # multiple runs of vtach- most recently 33 beats. r/o UT- Trops negative, EKG ordered. stress test per cardiology #Severe sepsis/ septic shock secondary to pneumonia, ? aspiration ?HCAP vs. UTI , gram negative bacteremia, gram negative UTI. resolving. #Acute on chronic hypoxic hypercarbic respiratory failure- responded to non invasive positive pressure ventilation #CRISTÓBAL- prerenal- resolved, #diastolic CHF, possible acute exacerbation #Hyponatremia- hypovolemic, resolved #COPD on home O2, doubt exacerbation #HTN, HLD #Normocytic Anemia- stable #Anxiety/depression #Mild protein calorie malnutrition #Hypernatremia over the weekend- resolved #persistent nausea and abdominal pain #Metabolic alkalosis -Stress test per cardiology for ventricular tachycardias- negative, UT ruled out -Broad spectrum antibiotics: s/p Zosyn, Vancomycin and Azithromycin. Renal dose. Per ID switch to Amikacin once and meropenem day 1314, now also on Vancomycin (04/07-) .d/w Dr. Grady, will add vancomycin. Get abd US. repeat cultures. follow up sputum culture. MRSA. Stop Meropenem, continue Vancomycin (pharmacy dosing) for 6 more days -bipap prn, titrate to keep SpO2 >90% -ID and pulmonary consults appreciated -Repeat Echocardiogram reviewed - Duo-Nebs Q6hr PRN SOB/Wheezing -One time IV lasix 40mg, received po lasix. stopped, now with metabolic alkalosis- also hypercarbia. Will give a dose of Diamox. - continue home Singulair -Monitor renal function, continue Esqueda, if cr without improvement, renal consult - resume ACEi - resume Amlodipine 10mg PO daily - Metoprolol 12.5 BID, increased to 25 mg bid tolerating - resume stain and ASA while npo - resume lyrica 75mg PO BID - resume Lexapro 20mg Po daily, Resume Klonipin and ativan prn. Psychiatry consult with Dr. Stern who know her from [facility]. DC Devendraoquel, started Remeron - resume Colace 100mg Po BID - resume simethecone 125mg PO TID -Marinol #Goals of care - DNR/DNI, POLST reviewed FENPPx Fluids: 1 L bolus, reassess Diet: soft chew, thin liquid LIQUIDS. DVTPPx: Heparin SBQ q12 GI PPX: PPI IV PT/OT: pending Code status: DNR/DNI, per polst Dispo: SNF on exam today she looks well. She is alert and oriented x3. cardiac: s1s2, no m/ r/g, no edema, Lungs cta bl I spent 40 minutes on this encounter, 20 minutes spent on counselling and care coordination D/w RN, general surgery: Dr. Orellana, ID: Dr. Grady. Discharge Medications New Medications: Vancomycin/Water For Inj (Peg) (Vancomycin 1 Gram/200 ml Bag) 1 Gm/200 Ml Piggyback 1 GM IV DAILY for 6 Days, #6 BAG Ascorbic Acid* (Ascorbic Acid*) 500 Mg Tablet 250 MG ORAL DAILY for 30 Days, #30 TAB Clonazepam* (Klonopin*) 0.5 Mg Tablet 0.5 MG ORAL BID for 30 Days, #60 TAB Dronabinol* (Marinol*) 2.5 Mg Capsule 2.5 MG ORAL BID for 30 Days, #60 CAP Methocarbamol* (Robaxin-500*) 500 Mg Tablet 500 MG ORAL Q6H PRN for 30 Days, #30 TAB Metoprolol Tartrate (Metoprolol Tartrate) 25 Mg Tablet 25 MG ORAL Q12HR for 30 Days, #60 TAB Mirtazapine* (Mirtazapine*) 15 Mg Tablet 7.5 MG ORAL BEDTIME for 30 Days, #30 TAB [[facility] pharmacy to dose] () 1 EA MISC 1 EA MISC DAILY PRN Zinc Sulfate (Zinc Sulfate*) 220 Mg Capsule 220 MG ORAL DAILY for 30 Days, #30 CAP Continued Medications: Acetaminophen* (Acetaminophen 325MG Tablet*) 325 Mg Tablet 650 MG ORAL Q4H PRN for Mild Pain (Pain Scale 1-3), TAB Acetylcysteine* (Acetylcysteine*) 200 Mg/1 Ml Vial 200 MG HHN Q4HR PRN for CONGESTION, VIAL Amlodipine Besylate* (Amlodipine Besylate*) 10 Mg Tablet 10 MG ORAL DAILY, TAB HOLD FOR SBP<110, HR<60 Aspirin* (Aspirin*) 81 Mg Tab.chew 81 MG ORAL DAILY, TAB Benzonatate* (Tessalon Perle*) 100 Mg Capsule 100 MG ORAL THREE TIMES A DAY PRN for For Cough, PERLE [Bevespi Aerosphere ] () 9MCG/4.8MCG PUFFS 2 PUFFS INH BID Bisacodyl (Dulcolax) 10 Mg Supp.rect 10 MG RC PRN PRN for Constipation, SUPP Calcium Carbonate/Vitamin D3 ([place] 500+D Tablet) 1 Each Tablet 1 EACH PO DAILY, TAB Dextromethorphan Hb/Doxylamine (Robitussin Nighttime Cough Dm) 237 Ml Liquid 20 ML PO Q8HR PRN for For Cough, ML Dicyclomine Hcl* (Dicyclomine Hcl*) 10 Mg Capsule 10 MG ORAL QID PRN for ABDOMINAL PAIN, #20 CAP Docusate Sodium* (Colace*) 100 Mg Capsule 100 MG ORAL BID, CAP Escitalopram Oxalate* (Lexapro*) 20 Mg Tablet 20 MG ORAL DAILY, TAB Ferrous Sulfate* (Ferrous Sulfate*) 325 Mg Tablet 325 MG ORAL DAILY, #30 TAB 0 Refills Fluticasone Propionate (Flovent Hfa) 12 Gm Aer.w.adap 2 PUFFS INH DAILY, #1 EA 0 Refills Ipratropium [place] (Atrovent Hfa) 12.9 Gm Hfa.aer.ad 1 UNIT HHN Q6HR PRN for SOB/WHEEZING ATROVENT 0.02% SOLUTION, INHALED VIA NEBULIZER Levalbuterol Hcl (Xopenex*) 0.63 Mg/3 Ml Vial.neb 0.63 MG HHN Q6H PRN for SOB/WHEEZING, VIAL Lisinopril (Lisinopril*) 20 Mg Tablet 20 MG ORAL DAILY for HYPERTENSION, TAB HOLD FOR SBP<110 Mag Hydrox/Al Hydrox/Simeth* (Advanced Antacid Liquid*) 355 Ml Oral.susp 20 ML ORAL Q4H PRN for INDIGESTION, ML Magnesium (Magnesium) 200 Mg Tablet 200 MG PO QD, TAB Montelukast Sodium* (Montelukast Sodium*) 10 Mg Tablet 10 MG ORAL DAILY, TAB Multivitamin (Multivitamins) 1 Each Tablet 1 EACH PO QD, TAB Na Phos,M-B/Na Phos,Di-Ba* (Fleet Enema*) 133 Ml Enema 133 ML RECTAL DAILY PRN for IF MOM OR DULCOLAX INEFFECTIVE, ML 0 Refills Ondansetron* (Zofran*) 4 Mg Tablet 4 MG ORAL Q4HR PRN for Nausea & Vomiting, TAB Pantoprazole* (Protonix*) 40 Mg Tablet.dr 40 MG ORAL DAILY, TAB Pregabalin* (Lyrica*) 75 Mg Capsule 75 MG ORAL BID, CAP Rosuvastatin Calcium* (Crestor*) 20 Mg Tablet 20 MG ORAL DAILY, TAB Discontinued Medications: Clonazepam* (Klonopin*) 0.5 Mg Tablet 0.5 MG ORAL BID PRN for For Anxiety, #15 TAB 0 Refills Fluticasone Propionate (Flonase Allergy Relief) 9.9 Ml [place].susp 1 SPR NASAL DAILY Gabapentin* (Gabapentin*) 300 Mg Capsule 300 MG ORAL THREE TIMES A DAY, CAP 0 Refills Hyoscyamine Sulfate* (Levsin-Sl*) 0.125 Mg Tab.subl 0.125 MG SL TID, #20 TAB 0 Refills Lactobacillus Acidophilus (Acidophilus) 1 Each Tablet 1 EACH PO BID, TAB Linaclotide (Linzess) 290 Mcg Capsule 290 MCG PO ACBREAKFAST, CAP Lorazepam* (Ativan*) 0.5 Mg Tablet 0.5 MG ORAL BID for ANXIETY, TAB [Magic Mouthwash] () 15 ML PO Q4HR PRN for ORAL PAIN LIDOCAINE 2%, VISCOUS; LIQUID BENADRYL; LIQUID NYSTATIN SWISH IN MOUTH, NOT CONSUMED Melatonin (Melatonin) 3 Mg Tablet 3 MG ORAL BEDTIME PRN for Insomnia, TAB Oxycodone Hcl Ir* (Roxicodone Ir*) 5 Mg Tablet 5 MG ORAL Q6H PRN for Moderate Pain (Pain Scale 4-6), TAB 0 Refills Polyethylene Glycol 3350* (Miralax*) 17 Gm Powd.pack 17 GM ORAL DAILY, PACKET Ranitidine Hcl (Ranitidine Hcl) 15 Mg/1 Ml Syrup 75 MG PO BID, ML Discharge Condition Upon Discharge: stable Discharge Disposition Patient was discharged to [facility] Discharge Diagnoses: (1) Acute and chronic respiratory failure (voowh-wv-xbniibt) (2) Severe sepsis (3) Hypertension (4) Respiratory failure with hypoxia (5) COPD (chronic obstructive pulmonary disease) (6) UTI (urinary tract infection) (7) Protein-calorie malnutrition, mild (8) Decubitus skin ulcer (9) Gram-negative bacteremia (10) Pneumonia (11) Diastolic CHF Philipp Moreau M.D. Apr 12, 2019 13:44
--- NOTE | 2019-04-12 13:46 | Pulmonology Progress Note ---
Assessment/Plan Problems: (1) UTI (urinary tract infection) Assessment & Plan: E coli (2) Sepsis with acute hypoxic respiratory failure (3) CRISTÓBAL (acute kidney injury) (4) COPD (chronic obstructive pulmonary disease) (5) Anemia (6) Anxiety (7) Hypercholesteremia (8) Hyponatremia (9) Acute and chronic respiratory failure ([id number]) (10) Hypertension (11) Protein-calorie malnutrition, mild Assessment/Plan ASSESSMENT: The patient is a 78-year-old female with history of COPD, CHF with diastolic dysfunction, GERD, anemia, hypertension, hyperlipidemia, IBS, [facility] resident with pulsating comfort measures only and DNR, presenting with altered mental status, hypertension, likely secondary to UTI with urosepsis and hypoxemia secondary to above. PROBLEM LIST: 1. Hypoxemia likely secondary to urosepsis. 2. E coli UTI and GNR sepsis 3. COPD. 4. Home O2 dependence. 5. CHF with diastolic dysfunction. 6. CRISTÓBAL with hyponatremia. 7. Anemia. 8. Recent admission for gastritis. 9. Hypertension, hyperlipidemia, GERD, IBS. 10. DNAR, PULSE comfort measures only. TREATMENT PLAN: 1. Titrate on FiO2 to keep saturations greater than 90%. 2. F/U cards recs, prelim stress test neg, F/U final resuls 3. Abx per ID 4. Monitor volumes and renal function, off IVF, PRN lasix, S/P Diamox x 1 5. 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 Monitor mental status. 7. DVT prophylaxis, heparin subcutaneous. 8. The patient is DNAR, and has a POLST: comfort measures only, we will need to discuss further goals of care. 9. Dispo planning to SNF Subjective Allergies: Coded Allergies: [place] (Unverified Allergy, Mild, upset stomach, 02/10/19) TOMATO (Unverified Allergy, Mild, upset stomach, 02/10/19) TETRACYCLINE (Unverified Allergy, Unknown, 07/24/14) Subjective Stress test neg per cards AFVSS O2 needs stable S/P one dose Diamox no cough no SOB no FC no CP Objective Last 24 Hour Vital Signs Date Time Temp Pulse Resp B/P (MAP) Pulse Ox O2 Delivery O2 Flow Rate FiO2 04/12/19 11:36 97.7 72 17 162/72 (102) 97 04/12/19 09:05 97.7 04/12/19 08:38 134/81 04/12/19 08:36 72 134/81 04/12/19 08:36 72 134/81 04/12/19 08:09 97.7 72 17 134/81 (98) 97 04/12/19 07:58 84 04/12/19 04:00 97.7 72 17 129/61 (83) 97 04/12/19 04:00 76 04/12/19 00:00 84 04/12/19 00:00 98.2 85 18 115/67 (83) 99 04/11/19 21:58 86 146/75 04/11/19 21:00 Nasal Cannula 2.0 Nasal Cannula 2.0 04/11/19 20:14 94 Nasal Cannula 2.0 28 04/11/19 20:00 97.9 88 18 111/61 (78) 96 04/11/19 20:00 88 04/11/19 16:00 91 04/11/19 16:00 98.6 75 19 127/65 (85) 99 Intake and Output 04/11/19 04/12/19 18:59 06:59 Intake Total 720 ml 240 ml Output Total 1400 ml 600 ml Balance -680 ml -360 ml Intake Oral 720 ml 240 ml Output Urine Total 1400 ml 600 ml # Voids 1 # Bowel Movements 3 General Appearance: no acute distress HEENT: normocephalic, atraumatic, anicteric, mucous membranes moist Respiratory/Chest: chest wall non-tender, lungs clear, normal breath sounds, no respiratory distress, no accessory muscle use Cardiovascular: normal peripheral pulses, normal rate, regular rhythm Abdomen: normal bowel sounds, soft, non tender, no organomegaly, non distended , no mass Extremities: no cyanosis, no clubbing, no edema Laboratory Tests 04/11/19 15:25: Arterial Blood pH 7.467H, Arterial Blood Partial Pressure CO2 52.7H, Arterial Blood Partial Pressure O2 125.4H, Arterial Blood HCO3 37.2H, Arterial Blood Oxygen Saturation 98.3, Arterial Blood Base Excess 12.1*H, Scooby Test Positive 04/12/19 07:30: White Blood Count 7.9, Red Blood Count 2.95L, Hemoglobin 8.6L, Hematocrit 27.6L , Mean Corpuscular Volume 93, Mean Corpuscular Hemoglobin 29.1, Mean Corpuscular Hemoglobin Concent 31.2L, Red Cell Distribution Width 14.1, Platelet Count 459H, Mean Platelet Volume 5.9L, Neutrophils (%) (Auto) 59.7, Lymphocytes (%) (Auto) 29.7, Monocytes (%) (Auto) 7.6, Eosinophils (%) (Auto) 2.5, Basophils (%) (Auto) 0.6, Sodium Level 139, Potassium Level 4.0, Chloride Level 101, Carbon Dioxide Level 40H, Anion Gap -2L, Blood Urea Nitrogen 17, Creatinine 0.7, Estimat Glomerular Filtration Rate , Glucose Level 111H, Calcium Level 9.1, Total Bilirubin 0.2, Aspartate Amino Transf (AST/SGOT) 17, Alanine Aminotransferase (ALT/SGPT) 18, Alkaline Phosphatase 88, Total Protein 6.9, Albumin 2.5L, Globulin 4.4, Albumin/Globulin Ratio 0.6L 04/12/19 10:32: Arterial Blood pH 7.426, Arterial Blood Partial Pressure CO2 53.6H, Arterial Blood Partial Pressure O2 99.0, Arterial Blood HCO3 34.0H, Arterial Blood Oxygen Saturation 97.0, Arterial Blood Base Excess 8.9H, Scooby Test Positive Current Medications Medications (Trade) Dose Ordered Sig/Wilner Route PRN Reason Start Time Stop Time Status Last Admin Dose Admin Acetaminophen (Tylenol) 650 mg Q4H PRN ORAL Mild - mod Pain/Temp > 100.5 04/03/19 18:15 05/02/19 18:14 04/12/19 01:53 Amlodipine Besylate (Norvasc) 10 mg DAILY ORAL 04/04/19 09:00 05/02/19 08:59 04/12/19 08:36 Ascorbic Acid (Vitamin C) 250 mg DAILY ORAL 04/04/19 09:00 05/01/19 08:59 04/12/19 08:36 Clonazepam (KlonoPIN) 0.5 mg BID ORAL 04/11/19 18:45 04/18/19 18:44 04/12/19 08:36 Docusate Sodium (Colace) 100 mg THREE TIMES A DAY ORAL 04/04/19 09:00 05/04/19 08:59 04/12/19 12:56 Dronabinol (Marinol) 2.5 mg BID ORAL 04/04/19 09:00 05/04/19 08:59 04/12/19 08:36 Escitalopram Oxalate (Lexapro) 20 mg DAILY ORAL 04/04/19 09:00 04/30/19 14:02 04/12/19 08:35 Heparin Sodium (Porcine) (Heparin 5000 units/ml) 5,000 units EVERY 12 HOURS SUBQ 04/03/19 21:00 04/29/19 09:29 04/12/19 08:37 Hydralazine HCl (Apresoline) 10 mg Q4H PRN IV sbp>150 04/03/19 18:00 04/30/19 17:59 Lisinopril (Prinivil) 20 mg DAILY ORAL 04/04/19 09:00 05/02/19 08:59 04/12/19 08:38 Methocarbamol (Robaxin) 500 mg Q6H PRN ORAL muscle spasms 04/03/19 18:00 05/02/19 17:59 04/12/19 02:27 Metoprolol Tartrate (Lopressor) 25 mg Q12HR ORAL 04/08/19 09:00 05/05/19 08:59 04/12/19 08:36 Mirtazapine (Remeron) 7.5 mg BEDTIME ORAL 04/12/19 21:00 05/12/19 20:59 Multivitamins (Multivitamins) 1 tab DAILY ORAL 04/04/19 09:00 05/01/19 08:59 04/12/19 08:36 Ondansetron HCl (Zofran) 4 mg Q4H PRN IVP Nausea & Vomiting 04/03/19 18:15 05/01/19 14:14 04/12/19 02:26 Pantoprazole (Protonix) 40 mg EVERY 12 HOURS IVP 04/03/19 21:00 04/29/19 09:59 04/12/19 08:35 Polyethylene Glycol (Miralax) 17 gm DAILY PRN ORAL Constipation 04/04/19 08:00 05/04/19 07:59 04/04/19 11:29 Pregabalin (Lyrica) 75 mg BID ORAL 04/04/19 09:00 05/04/19 08:59 04/12/19 08:35 Prochlorperazine (Compazine) 10 mg Q6H PRN IVP Nausea & Vomiting 04/06/19 12:15 05/06/19 12:14 04/11/19 15:59 Vancomycin HCl (Vanco rx to dose) 1 ea DAILY PRN MISC Per rx protocol 04/08/19 14:45 05/08/19 14:44 Vancomycin HCl 1 gm/Dextrose 275 ml @ 183.708 mls/hr Q24H IVPB 04/10/19 15:00 04/15/19 14:59 04/11/19 15:59 Zinc Sulfate (Zinc Sulfate) 220 mg DAILY ORAL 04/09/19 09:00 04/19/19 08:59 04/12/19 08:36 Rafael Lerma MD Apr 12, 2019 13:46
[2019-04-12] MEDS ORDERED: ZINC SULFATE220 M1 ORAL (14:06)
[2019-04-12] MEDS ORDERED: VANCOMYCIN1 GM/2002 IV (14:06)
[2019-04-12] MEDS ORDERED: Vanco pharmacy to dose MISC (14:06)
[2019-04-12] MEDS ORDERED: MIRTAZAPINE15 M3 ORAL (14:06)
[2019-04-12] MEDS ORDERED: KLONOPIN0.5 MG ORAL (14:06)
[2019-04-12] MEDS ORDERED: ROBAXIN-500MG ORAL (14:06)
[2019-04-12] MEDS ORDERED: ASCORBIC ACID500 M4 ORAL (14:06)
[2019-04-12] MEDS ORDERED: LOPRESSOR25 M1 ORAL (14:06)
[2019-04-12] MEDS ORDERED: MARINOL2.5 MG ORAL (14:06)
[2019-04-12 14:15] VITALS: BP 150/72
--- NOTE | 2019-04-12 14:23 | Surgery Progress Note ---
Surgery Progress Note Subjective Additional Comments labs improved exam stable comfortable no n/v/f/c Objective Last 24 Hour Vital Signs Date Time Temp Pulse Resp B/P (MAP) Pulse Ox O2 Delivery O2 Flow Rate FiO2 04/12/19 11:36 97.7 72 17 162/72 (102) 97 04/12/19 09:05 97.7 04/12/19 09:00 Nasal Cannula 2.0 Nasal Cannula 2.0 04/12/19 08:38 134/81 04/12/19 08:36 72 134/81 04/12/19 08:36 72 134/81 04/12/19 08:09 97.7 72 17 134/81 (98) 97 04/12/19 07:58 84 04/12/19 04:00 97.7 72 17 129/61 (83) 97 04/12/19 04:00 76 04/12/19 00:00 84 04/12/19 00:00 98.2 85 18 115/67 (83) 99 04/11/19 21:58 86 146/75 04/11/19 21:00 Nasal Cannula 2.0 Nasal Cannula 2.0 04/11/19 20:14 94 Nasal Cannula 2.0 28 04/11/19 20:00 97.9 88 18 111/61 (78) 96 04/11/19 20:00 88 04/11/19 16:00 91 04/11/19 16:00 98.6 75 19 127/65 (85) 99 I&O Intake and Output 04/11/19 04/12/19 18:59 06:59 Intake Total 720 ml 240 ml Output Total 1400 ml 600 ml Balance -680 ml -360 ml Intake Oral 720 ml 240 ml Output Urine Total 1400 ml 600 ml # Voids 1 # Bowel Movements 3 Dressing: other Wound: other Drains: other Cardiovascular: RSR Respiratory: decreased breath sounds Abdomen: soft, present bowel sounds Extremities: edema, no cyanosis, other Laboratory Tests Test 04/11/19 15:25 04/12/19 07:30 04/12/19 10:32 Arterial Blood pH 7.467 (7.350-7.450) 7.426 (7.350-7.450) Arterial Blood Partial Pressure CO2 52.7 mmHg (35.0-45.0) H 53.6 mmHg (35.0-45.0) H Arterial Blood Partial Pressure O2 125.4 mmHg (75.0-100.0) H 99.0 mmHg (75.0-100.0) Arterial Blood HCO3 37.2 mmol/L (22.0-26.0) H 34.0 mmol/L (22.0-26.0) H Arterial Blood Oxygen Saturation 98.3 % (95-100) 97.0 % (95-100) Arterial Blood Base Excess 12.1 (-2-2) *H 8.9 (-2-2) H Scooby Test Positive Positive White Blood Count 7.9 K/UL (4.8-10.8) Red Blood Count 2.95 M/UL (4.20-5.40) L Hemoglobin 8.6 G/DL (12.0-16.0) L Hematocrit 27.6 % (37.0-47.0) L Mean Corpuscular Volume 93 FL (80-99) Mean Corpuscular Hemoglobin 29.1 PG (27.0-31.0) Mean Corpuscular Hemoglobin Concent 31.2 G/DL (32.0-36.0) L Red Cell Distribution Width 14.1 % (11.6-14.8) Platelet Count 459 K/UL (150-450) H Mean Platelet Volume 5.9 FL (6.5-10.1) L Neutrophils (%) (Auto) 59.7 % (45.0-75.0) Lymphocytes (%) (Auto) 29.7 % (20.0-45.0) Monocytes (%) (Auto) 7.6 % (1.0-10.0) Eosinophils (%) (Auto) 2.5 % (0.0-3.0) Basophils (%) (Auto) 0.6 % (0.0-2.0) Sodium Level 139 MMOL/L (136-145) Potassium Level 4.0 MMOL/L (3.5-5.1) Chloride Level 101 MMOL/L (98-107) Carbon Dioxide Level 40 MMOL/L (21-32) H Anion Gap -2 mmol/L (5-15) L Blood Urea Nitrogen 17 mg/dL (7-18) Creatinine 0.7 MG/DL (0.55-1.30) Estimat Glomerular Filtration Rate mL/min (>60) Glucose Level 111 MG/DL (74-106) H Calcium Level 9.1 MG/DL (8.5-10.1) Total Bilirubin 0.2 MG/DL (0.2-1.0) Aspartate Amino Transf (AST/SGOT) 17 U/L (15-37) Alanine Aminotransferase (ALT/SGPT) 18 U/L (12-78) Alkaline Phosphatase 88 U/L (46-116) Total Protein 6.9 G/DL (6.4-8.2) Albumin 2.5 G/DL (3.4-5.0) L Globulin 4.4 g/dL Albumin/Globulin Ratio 0.6 (1.0-2.7) L Plan Problems: (1) Leukocytosis Assessment & Plan: leukocytosis fluctuating labs noted exam stable Abx as per ID cont IV abx CT noted reviewed. Unlikely etiology of leukocytosis dilated biliary tract without obstruction. Will monitor. 1. Moderate stool ball within the rectum. Correlate for impaction. 2. Dilated biliary tree, common bile duct measuring 1.4 cm. No obstructing stone or mass. 3. Moderate to severe right hydronephrosis which is favored chronic with a few stones layering dependently in the renal pelvis. No ureteral dilatation. 4. Leiomyomatous uterus. 1. Nonspecific biliary dilatation. 2. No sonographic evidence of acute cholecystitis. 3. Severe right hydronephrosis without definite stone identified. Nonobstructing 5 mm left renal stone. 4. Mild prominence of the bladder wall is nonspecific and may be secondary to underdistention. Further evaluation could be performed with urinalysis if clinically indicated. improving comfortable PPI tums trend labs (2) Decubitus skin ulcer Assessment & Plan: Pt presented on admission with moisture intertrigo R and L breasts. both breast folds are erythematous with denuded skin . DTPI noted to Upper R buttocks. Base of wound is maroon is indurated and elongated with surrounding non-blanching erythema. (L)1cm x (W)4cm. Both heels are soft pink and blanchable.No other skin concerns noted. stable Pt presented on admission with DTPI R sacrum which has now evolved into a full thickness pressure injury. Base of wound is moist with 20% slough, 80% granular. Periwound is pink and non-tender when palpated.(L)3cm x (W)1.8cm. Moisture Intertrigo both breasts resolving .Less erythema noted. Both heels are soft but easily blanches. Tx.Plan: Apply Hydraguard Silicone cream to R and L breasts Daily. Cleanse R sacral wound with saline. Apply TheraHoney. Apply Moisture Barrier periwound. Cover with Optifoam drsg. Change every 3days and prn. Apply Cavilon Skin Barrier to both heels. Cover each heels with Optifoam drsg. Change every 7 days and prn. APM/MARCUS Mattress overlay. Reposition at least every 2hours or as tolerated. Off-load heels with pillow. (3) Limited mobility (4) Constipation (5) Protein-calorie malnutrition, mild Assessment & Plan: DAILY ESTIMATED NEEDS: Needs based on Wound, cardiac, pulmonary, 46kg 25-30 kcals/kg 7711-0452 total kcals 1.25-1.5 g protein/kg 58-69 g total protein 25-30 mL/kg 0050-1033 total fluid mLs NUTRITION DIAGNOSIS: * Increased kcal/prot needs R/T wound healing as evidenced by pt admitted w/ DTPI R sacrum wound-> now evolved into full thickness wound. (UPDATED) * Swallowing difficulty R/T dysphagia as evidenced by pt on liquify pureed, NTL, w/ poor and variable PO intake-> texture now advanced to soft easy chew w/ thin liquids, cont w/ poor PO intake. (UPDATED) CURRENT DIET:LOW NA/ SOFT EASY CHEW W/ THIN LIQUIDS + ENSURE TID PO DIET RECOMMENDATIONS: Liberalized REGULAR w/ poor PO (texture per IT APPLICATIONS MANAGER) + Ensure TID ADDITIONAL RECOMMENDATIONS: * Per SNF record, ht=57", zw=[id number]. * Wound healing: Continue MVI x 1, Vit C 250mg QD : add ZnSO4 220mg qd X 10 DAYS : Edilberto 1pkt BID as tolerated * Igor count x 72 hrs completed- INADEQUATE PO INTAKE * W/ continued nausea- consider giving Zofran ~30 mins prior to meal times * Monitor lytes closely w/ lasix, replete as needed Robert Orellana Apr 12, 2019 14:23
--- NOTE | 2019-04-12 14:57 | Infectious Diseases Prog Note ---
Assessment/Plan Assessment/Plan ASSESSMENT AND PLAN: 1. e.coli uti/pyelonephritis with bacteremia, sepsis, leukocytosis, fevers, ? HCAP/aspiration pna vs atx, pulmonary edema ? cholecystitis - ct noted, us without cholecystitis - vancomycin - day # 6/10-14 days, finish meropenem course - f/u on cultures, labs and chest x-ray - check sensitivities of staph aureus from sputum culture - case d/w Dr. Moreau about antibiotic course and vancomycin treatment course - stable ID standpoint for discharge 2. Acute kidney injury with elevated creatinine. 3. IBS 4. Congestive heart failure and edema - sob better 5. Hypertension. 6. Hyperlipidemia. 7. Blood pressure treatment per primary care team for hypertension. 8. Anemia. 9. Chronic obstructive pulmonary disease. 10. Gastroesophageal reflux disease. 11. Chronic obstructive pulmonary disease and congestive heart failure treatment per primary care team. 12. IBS. 13. Encephalopathy. 14. Gastritis. 15. Anxiety. 16. Hypercholesterolemia and dyslipidemia. 17. Breast cancer. 18. Malnutrition history. 19. Allergies to oranges, tetracycline, and tomatoes. 20. Social history is negative. 21. Family history is noncontributory. 22. MAR is noted. 23. Case was discussed with RN. 24. Skin care protocol. 25. Continue treatment per primary consultants and CAYETANO care. 26. Orders were noted and entered. 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 28. time spent - 35 minutes Subjective Constitutional: Denies: fever HEENT: Denies: congestion Respiratory: Denies: shortness of breath Cardiovascular: Denies: chest pain Gastrointestinal/Abdominal: Denies: nausea, vomiting, diarrhea Genitourinary: Reports: other - no cva pain Neurologic: Denies: headache Psychiatric: Denies: depression Skin: Denies: rash Hematologic: Denies: bleeding Musculoskeletal: Denies: pain Allergies: Coded Allergies: [place] (Unverified Allergy, Mild, upset stomach, 02/10/19) TOMATO (Unverified Allergy, Mild, upset stomach, 02/10/19) TETRACYCLINE (Unverified Allergy, Unknown, 07/24/14) Objective Vital Signs Last 24 Hour Vital Signs Date Time Temp Pulse Resp B/P (MAP) Pulse Ox O2 Delivery O2 Flow Rate FiO2 04/12/19 14:15 97.7 72 17 150/72 (98) 97 04/12/19 11:58 85 12/3/19 11:36 97.7 72 17 162/72 (102) 97 04/12/19 09:05 97.7 04/12/19 09:00 Nasal Cannula 2.0 Nasal Cannula 2.0 04/12/19 08:38 134/81 04/12/19 08:36 72 134/81 04/12/19 08:36 72 134/81 04/12/19 08:09 97.7 72 17 134/81 (98) 97 04/12/19 07:58 84 04/12/19 04:00 97.7 72 17 129/61 (83) 97 04/12/19 04:00 76 04/12/19 00:00 84 04/12/19 00:00 98.2 85 18 115/67 (83) 99 04/11/19 21:58 86 146/75 04/11/19 21:00 Nasal Cannula 2.0 Nasal Cannula 2.0 04/11/19 20:14 94 Nasal Cannula 2.0 28 04/11/19 20:00 97.9 88 18 111/61 (78) 96 04/11/19 20:00 88 04/11/19 16:00 91 04/11/19 16:00 98.6 75 19 127/65 (85) 99 Height (Feet): 5 Height (Inches): 4.00 Weight (Pounds): 156 General Appearance: no acute distress HEENT: normocephalic, atraumatic, anicteric, mucous membranes moist Respiratory/Chest: crackles/rales, rhonchi - bilaterally - few Cardiovascular: normal rate, regular rhythm, no gallop/murmur, no JVD Abdomen: normal bowel sounds, soft, non tender, no organomegaly, non distended Extremities: no cyanosis Skin: no rash Neurologic/Psychiatric: quality assurance specialist II-XII grossly normal, alert, responsive Lymphatic: no neck adenopathy Musculoskeletal: no effusion Objective Chest x-ray - 03/31/19 - Procedure: XRAY Chest 1v Indication: Dyspnea Comparison: 03/30/2019 A single view chest radiograph was obtained. Findings: Increasing airspace disease in the right upper lobe noted as well as at both lung bases. The heart is mildly enlarged. The interstitium and pulmonary vascularity also appear prominent. IMPRESSION: Worsening airspace disease probably on the basis of congestive heart failure. Correlate clinically 04/05/19 - chest x-ray - Comparison: 03/31/2019 A single view chest radiograph was obtained. Findings: Interstitial densities noted diffusely with prominent vascularity and heart size consistent with pulmonary edema. There is a confluent density that has developed at the left lung base likely in part due to presence of a pleural effusion. Atelectasis suspected at the left lung base versus pneumonia which appears new. Surgical clips in the right axilla again noted. IMPRESSION: Interstitial edema/CHF. Suspected left pleural effusion. Suspected left basilar pneumonia versus atelectasis CT abdomen and pelvis: IMPRESSION: 1. Moderate stool ball within the rectum. Correlate for impaction. 2. Dilated biliary tree, common bile duct measuring 1.4 cm. No obstructing stone or mass. 3. Moderate to severe right hydronephrosis which is favored chronic with a few stones layering dependently in the renal pelvis. No ureteral dilatation. 4. Leiomyomatous uterus. Abdominal US: IMPRESSION: 1. Nonspecific biliary dilatation. 2. No sonographic evidence of acute cholecystitis. 3. Severe right hydronephrosis without definite stone identified. Nonobstructing 5 mm left renal stone. 4. Mild prominence of the bladder wall is nonspecific and may be secondary to underdistention. Further evaluation could be performed with urinalysis if clinically indicated. Chest x-ray - 04/08/19 - Procedure: XRAY Chest 1v Indication: Dyspnea Cehst Comparison: 04/05/2019 A single view chest radiograph was obtained. Findings: Vascular and interstitial prominence demonstrated consistent with CHF. Findings appear unchanged. There is a left pleural effusion suspected. There is a dense opacification of the left retrocardiac parenchyma which may be due to underlying pneumonia or atelectasis. IMPRESSION: No change from the prior exam Chest x-ray - 04/08/19 - Procedure: XRAY Chest 1v Indication: Dyspnea Comparison: 04/07/2019 A single view chest radiograph was obtained. Findings: There is enlargement of the cardiac silhouette with pulmonary vascular redistribution and prominence, hazy vessel margins and the suggestion of interstitial edema consistent with CHF. There is a left pleural effusion suspected. Underlying pneumonia or atelectasis is possible. Bones are osteopenic. Surgical clips in the right axilla and mediastinum noted. IMPRESSION: Worsening pulmonary edema Microbiology Date/Time Source Procedure Growth Status 04/07/19 12:05 Blood Blood Culture - Preliminary NO GROWTH AFTER 4 DAYS Resulted 04/07/19 06:00 Sputum Expectorated Gram Stain - Final Complete 04/07/19 06:00 Sputum Culture - Final Staphylococcus Aureus - Mrsa Usual Respiratory Luna Suzanne Albicans Complete 04/06/19 18:25 Indwelling Cath Urine Culture - Final NO GROWTH AFTER 48 HOURS Complete 03/30/19 06:00 Rectum - Final NO CARBAPENEM-RESISTANT ENTEROBACTERI... Complete Laboratory Tests Test 04/11/19 15:25 04/12/19 07:30 04/12/19 10:32 Arterial Blood pH 7.467 (7.350-7.450) 7.426 (7.350-7.450) Arterial Blood Partial Pressure CO2 52.7 mmHg (35.0-45.0) H 53.6 mmHg (35.0-45.0) H Arterial Blood Partial Pressure O2 125.4 mmHg (75.0-100.0) H 99.0 mmHg (75.0-100.0) Arterial Blood HCO3 37.2 mmol/L (22.0-26.0) H 34.0 mmol/L (22.0-26.0) H Arterial Blood Oxygen Saturation 98.3 % (95-100) 97.0 % (95-100) Arterial Blood Base Excess 12.1 (-2-2) *H 8.9 (-2-2) H Scooby Test Positive Positive White Blood Count 7.9 K/UL (4.8-10.8) Red Blood Count 2.95 M/UL (4.20-5.40) L Hemoglobin 8.6 G/DL (12.0-16.0) L Hematocrit 27.6 % (37.0-47.0) L Mean Corpuscular Volume 93 FL (80-99) Mean Corpuscular Hemoglobin 29.1 PG (27.0-31.0) Mean Corpuscular Hemoglobin Concent 31.2 G/DL (32.0-36.0) L Red Cell Distribution Width 14.1 % (11.6-14.8) Platelet Count 459 K/UL (150-450) H Mean Platelet Volume 5.9 FL (6.5-10.1) L Neutrophils (%) (Auto) 59.7 % (45.0-75.0) Lymphocytes (%) (Auto) 29.7 % (20.0-45.0) Monocytes (%) (Auto) 7.6 % (1.0-10.0) Eosinophils (%) (Auto) 2.5 % (0.0-3.0) Basophils (%) (Auto) 0.6 % (0.0-2.0) Sodium Level 139 MMOL/L (136-145) Potassium Level 4.0 MMOL/L (3.5-5.1) Chloride Level 101 MMOL/L (98-107) Carbon Dioxide Level 40 MMOL/L (21-32) H Anion Gap -2 mmol/L (5-15) L Blood Urea Nitrogen 17 mg/dL (7-18) Creatinine 0.7 MG/DL (0.55-1.30) Estimat Glomerular Filtration Rate mL/min (>60) Glucose Level 111 MG/DL (74-106) H Calcium Level 9.1 MG/DL (8.5-10.1) Total Bilirubin 0.2 MG/DL (0.2-1.0) Aspartate Amino Transf (AST/SGOT) 17 U/L (15-37) Alanine Aminotransferase (ALT/SGPT) 18 U/L (12-78) Alkaline Phosphatase 88 U/L (46-116) Total Protein 6.9 G/DL (6.4-8.2) Albumin 2.5 G/DL (3.4-5.0) L Globulin 4.4 g/dL Albumin/Globulin Ratio 0.6 (1.0-2.7) L mar and meds noted Nyasia Grover MD Apr 12, 2019 14:57
--- NOTE | 2019-04-12 18:00 | Progress Note ---
DATE: 04/12/2019 SUBJECTIVE: The patient continues to be anxious, circumstantial. Her medical condition is improving. She is awaiting placement. MENTAL STATUS EXAMINATION: The patient was drowsy today, arousable. Oriented to self, place, situation. Mood is neutral. Affect is constricted, congruent with mood. Thought process is concrete. Thought content, no suicidal or homicidal ideation. Cognition is impaired. Insight and judgment is fair. ASSESSMENT: 1. Anxiety disorder. 2. Depression. PLAN: 1. We will continue the Remeron. 2. Continue the Lexapro. 3. Continue Ativan. 4. Continue Klonopin. 5. We will continue to follow and readjust the medication. Wan Stern M.D. DR: KAYDEN JOB#: [id number] CC:
== END 2019-04-12 14:25 | DRG 871 ==
LOC: EDBD 04:04 → EMR 04:18 → EDBEDREQ 05:17 → EDBEDREQSVC 05:17 → EDBEDREQ 06:05 → 2W 06:16 → 2E 04-03 17:34
PROC: 5A09557 Assistance with Respiratory Ventilation, Greater than 96 Consecutive Hours, Continuous Positive Airway Pressure (ICD-10-PCS; principal; 2019-03-30)
DX: A41.50 Gram-negative sepsis, unspecified (principal); J96.22 Acute and chronic respiratory failure with hypercapnia; J96.21 Acute and chronic respiratory failure with hypoxia; R65.21 Severe sepsis with septic shock; J18.9 Pneumonia, unspecified organism; G92 Toxic encephalopathy; N17.9 Acute kidney failure, unspecified; I50.30 Unspecified diastolic (congestive) heart failure; N39.0 Urinary tract infection, site not specified; E87.1 Hypo-osmolality and hyponatremia; E44.1 Mild protein-calorie malnutrition; I47.2 Ventricular tachycardia; Z16.12 Extended spectrum beta lactamase (ESBL) resistance; N13.30 Unspecified hydronephrosis; E87.0 Hyperosmolality and hypernatremia; Z51.5 Encounter for palliative care; Z88.8 Allergy status to other drugs, medicaments and biological substances; Z66 Do not resuscitate; E78.5 Hyperlipidemia, unspecified; M81.0 Age-related osteoporosis without current pathological fracture; J44.9 Chronic obstructive pulmonary disease, unspecified; D64.9 Anemia, unspecified; Z85.3 Personal history of malignant neoplasm of breast; K58.1 Irritable bowel syndrome with constipation; F41.8 Other specified anxiety disorders; E86.1 Hypovolemia; L89.90 Pressure ulcer of unspecified site, unspecified stage; Z99.81 Dependence on supplemental oxygen; K21.9 Gastro-esophageal reflux disease without esophagitis; L89.326 Pressure-induced deep tissue damage of left buttock; L89.316 Pressure-induced deep tissue damage of right buttock; B96.20 Unspecified Escherichia coli [E. coli] as the cause of diseases classified elsewhere; K29.70 Gastritis, unspecified, without bleeding; N20.0 Calculus of kidney; L89.156 Pressure-induced deep tissue damage of sacral region; D25.9 Leiomyoma of uterus, unspecified
CPT/HCPCS: 36415; 36600; 71045; 74018; 74177; 76700; 78452; 80048; 80053; 80150; 80202; 81003; 82270; 82550; 82553; 82803; 83540; 83550; 83605; 83735; 83880; 84100; 84439; 84443; 84484; 85007; 85025; 87040; 87070; 87081; 87086; 87181; 87205; 93005; 93017; 93306; 94660; 94664; 96361; 96365; 96366; 96368; 99291; J2405; J2785; J7030; J8499

== ENCOUNTER 2019-06-10 16:44 | Inpatient (IN) | payer MEDICARE, OTHER ==
[~2019-06-10] VITALS: Ht 154.9 cm; Wt 63.5 kg
--- NOTE | 2019-06-10 00:30 | NUR ---
NURSE NOTES: Received admission orders from Dr. Rosenthal. Will note and carry out. Addendum: 06/11/19 at 0403 by Louise Mcgraw Mai, RN Received admission orders at 06/11/19 @ 0030.
[~2019-06-10 16:44] MED LIST changes: +ADVANCED ANTAC355 ML ORAL; +ASCORBIC ACID500 M4 ORAL; +ASPIRIN81 MG ORAL; +ATROVENT HFA12.9 GM HHN; +DULCOLAX STOOL100 M2 PO; +FLONASE ALLERG9.9 ML NASAL; +LOPRESSOR25 M1 ORAL; +MAG-OXIDE400 M1 PO; +MAGNESIUM200 M1 PO; +MARINOL2.5 MG ORAL; +MIRTAZAPINE15 M3 ORAL; +OYSCO 500+D TA1 EAC1 PO; +ROBAXIN-500MG ORAL; +ROBITUSSIN NIG237 M1 PO; +VANCOMYCIN1 GM/2002 IV; +Vanco pharmacy to dose MISC; +ZINC SULFATE220 M1 ORAL
[2019-06-10 16:50] VITALS: BP 145/77
--- NOTE | 2019-06-10 16:50 | NUR ---
ED Nurse Note: Pt [facility]it[facility] from [facility] d/t respiratory distress with productive cough noted with yellowish secretions. Per report, pt has hx of COPD, UTI. Mucomyst & Albuterol was already given FLOWER ARRANGER. Placed on bed and gown; hooked to hall monitor. Pt is AOx3, on RA, calm and cooperative; able to verbalize her needs and able to follow commands.
[2019-06-10] MEDS ORDERED: LYRICA75 M1 ORAL (17:27)
[2019-06-10] MEDS ORDERED: XOPENEX0.63 MG/3 HHN (17:27)
[2019-06-10] MEDS ORDERED: ATROVENT HFA12.9 GM IH (17:27)
--- NOTE | 2019-06-10 17:31 | NUR ---
ED Nurse Note: X-ray on bedside.
[2019-06-10] MEDS ORDERED: PERCOCET1 TAB ORAL (17:34)
[2019-06-10] MEDS ORDERED: ROBITUSSIN COU118 M1 ORAL (17:34)
[2019-06-10] MEDS ORDERED: TESSALON PERLE100 MG ORAL (17:34)
[2019-06-10] MEDS ORDERED: LACTULOSE20 GM/301 ORAL (17:34)
[2019-06-10] MEDS ORDERED: FLOVENT2 PUFF2 INH (17:42)
[2019-06-10] MEDS ORDERED: FLONASE ALLERG9.9 ML NS (17:42)
[2019-06-10] MEDS ORDERED: FERROUS SULFAT325 MG ORAL (17:42)
[2019-06-10] MEDS ORDERED: MIRALAX17 G2 ORAL (17:42)
[2019-06-10] MEDS ORDERED: SENNA LAXATIVE8.6 MG PO (17:42)
[2019-06-10] MEDS ORDERED: OS-CAL 500+D31 EAC1 PO (17:42)
[2019-06-10] MEDS ORDERED: LEXAPRO20 MG ORAL (17:42)
[2019-06-10 17:48] LABS: BASOPHILS % (AUTO) 0.7 % (0.0-2.0); EOSINOPHILS % (AUTO) 0.7 % (0.0-3.0); HEMATOCRIT 32.1 % (37.0-47.0); HEMOGLOBIN 9.9 G/DL (12.0-16.0); LYMPHOCYTES % (AUTO) 21.9 % (20.0-45.0); MEAN CORPUSCULAR VOLUME 99 FL (80-99); MONOCYTES % (AUTO) 4.9 % (1.0-10.0); NEUTROPHILS % (AUTO) 71.9 % (45.0-75.0); PLATELET COUNT 194 K/UL (150-450); RED BLOOD COUNT 3.25 M/UL (4.20-5.40); RED CELL DISTRIBUTION WIDTH 13.7 % (11.6-14.8); WHITE BLOOD COUNT 12.8 K/UL (4.8-10.8)
[2019-06-10 18:04] LABS: ANION GAP 9 mmol/L (5-15); BLOOD UREA NITROGEN 19 mg/dL (7-18); CALCIUM 8.6 MG/DL (8.5-10.1); CARBON DIOXIDE 30 MMOL/L (21-32); CHLORIDE 104 MMOL/L (98-107); CREATININE 0.7 MG/DL (0.55-1.30); POTASSIUM 4.4 MMOL/L (3.5-5.1); SODIUM 143 MMOL/L (136-145)
[2019-06-10 18:05] LABS: APPEARANCE,URINE SLIGHTLY CLOUDY; BILIRUBIN, URINE NEGATIVE (NEGATIVE); COLOR,URINE PALE YELLOW; GLUCOSE, URINE (UA) NEGATIVE (NEGATIVE); KETONES,URINE NEGATIVE (NEGATIVE); LEUKOCYTE ESTERASE ,URINE 3+ (NEGATIVE); NITRITE,URINE NEGATIVE (NEGATIVE); PH,URINE 7 (4.5-8.0); PROTEIN,URINE 1+ (NEGATIVE); UROBILINOGEN,URINE NORMAL MG/DL (0.0-1.0)
[2019-06-10] MEDS ORDERED: Solu-MEDROL 125mg Inj IVP ONE (18:15)
[2019-06-10] MEDS ORDERED: Albuterol/Ipratropium 3ml neb HHN ONE ×2 (18:15→22:00)
[2019-06-10 18:19] LABS: ALANINE AMINOTRANSFERASE 21 U/L (12-78); ALBUMIN 3.5 G/DL (3.4-5.0); ALBUMIN/GLOBULIN RATIO 0.9 (1.0-2.7); ALKALINE PHOSPHATASE 99 U/L (46-116); ASPARTATE AMINO TRANSFERASE 22 U/L (15-37); BILIRUBIN,TOTAL 0.4 MG/DL (0.2-1.0); CKMB 0.5 NG/ML (0.0-3.6); CREATINE KINASE 55 U/L (26-308); PHOSPHORUS 3.4 MG/DL (2.5-4.9)
--- NOTE | 2019-06-10 18:20 | Emergency Room Report ---
History of Present Illness General Chief Complaint: Dyspnea/Respdistress Source: Medical Record Present Illness HPI Patient is a 78-year-old female sent in for nursing facility for increased difficulty with breathing. Patient had prior history of COPD. She is normally on oxygen at home. She had been having increased difficulty with breathing and had no improvement with breathing treatment. She had been given Tylenol prior to arrival. Was noted to have some new fever. Reports having increased dysuria and burning with urination. Also has prior history of arthritis. Allergies: Coded Allergies: Maple (Unverified Allergy, Mild, upset stomach, 02/10/19) TOMATO (Unverified Allergy, Mild, upset stomach, 02/10/19) TETRACYCLINE (Unverified Allergy, Unknown, 07/24/14) Patient History Past Medical History: see triage record Reviewed Nursing Documentation: PMH: Agreed; PSxH: Agreed Nursing Documentation-PMH Hx Cardiac Problems: Yes Hx Hypertension: Yes Hx Asthma: Yes Hx COPD: Yes Hx Diabetes: Yes Hx Cancer: Yes Hx Gastrointestinal Problems: Yes - Gastritis, H. Pylori, colonic polyps Hx Neurological Problems: No Physical Exam Vital Signs Date Time Temp Pulse Resp B/P (MAP) Pulse Ox O2 Delivery O2 Flow Rate FiO2 06/10/19 16:45 100.9 110 16 145/77 (99) 90 Nasal Cannula 2.0 Sp02 EP Interpretation: reviewed, normal General Appearance: normal inspection, well appearing, no apparent distress, alert, GCS 15 Head: atraumatic ENT: normal ENT inspection, hearing grossly normal, normal voice Neck: normal inspection, full range of motion, supple, no bony tend Respiratory: normal inspection, lungs clear, normal breath sounds, no respiratory distress, no retraction, no wheezing Cardiovascular #1: regular rate, rhythm, no edema Gastrointestinal: normal inspection, normal bowel sounds, non tender, soft, no guarding, no hernia Genitourinary: no CVA tenderness Musculoskeletal: normal inspection, back normal, normal range of motion Neurologic: alert, motor strength/tone normal, manager hardware III-XII nml as tested, oriented x3, responsive, speech normal, normal inspection Psychiatric: normal inspection, judgement/insight normal, mood/affect normal Medical Decision Making Diagnostic Impression: Primary Impression: Chronic respiratory failure with hypoxia Additional Impressions: Urinary tract infection COPD (chronic obstructive pulmonary disease) ER Course Patient presented for shortness of breath. Differential included but was not limited to anemia, pneumonia, pneumothorax, myocardial infarction, pericardial effusion, congestive heart failure, acidosis because of complexity of patient's case laboratory tests and imaging studies were ordered. Patient's laboratory testing showed some elevation of the white blood count. Patient was given breathing treatments.She was given IV fluids as well as IV antibiotics. She was given steroids for COPD. Also given breathing treatments. Patient reported having improvement in symptoms after medications. Patient was discussed with Dr. Benji Rosenthal for inpatient observation due to fever as well as history of multiple chronic illnesses Labs Test 06/10/19 17:21 06/10/19 17:55 06/10/19 17:57 White Blood Count 12.8 K/UL (4.8-10.8) Red Blood Count 3.25 M/UL (4.20-5.40) Hemoglobin 9.9 G/DL (12.0-16.0) Hematocrit 32.1 % (37.0-47.0) Mean Corpuscular Volume 99 FL (80-99) Mean Corpuscular Hemoglobin 30.6 PG (27.0-31.0) Mean Corpuscular Hemoglobin Concent 30.9 G/DL (32.0-36.0) Red Cell Distribution Width 13.7 % (11.6-14.8) Platelet Count 194 K/UL (150-450) Mean Platelet Volume 6.7 FL (6.5-10.1) Neutrophils (%) (Auto) 71.9 % (45.0-75.0) Lymphocytes (%) (Auto) 21.9 % (20.0-45.0) Monocytes (%) (Auto) 4.9 % (1.0-10.0) Eosinophils (%) (Auto) 0.7 % (0.0-3.0) Basophils (%) (Auto) 0.7 % (0.0-2.0) Prothrombin Time 10.4 SEC (9.30-11.50) Prothromb Time International Ratio 1.0 (0.9-1.1) Activated Partial Thromboplast Time 31 SEC (23-33) Sodium Level 143 MMOL/L (136-145) Potassium Level 4.4 MMOL/L (3.5-5.1) Chloride Level 104 MMOL/L (98-107) Carbon Dioxide Level 30 MMOL/L (21-32) Anion Gap 9 mmol/L (5-15) Blood Urea Nitrogen 19 mg/dL (7-18) Creatinine 0.7 MG/DL (0.55-1.30) Estimat Glomerular Filtration Rate mL/min (>60) Glucose Level 107 MG/DL (74-106) Lactic Acid Level 0.50 mmol/L (0.4-2.0) Calcium Level 8.6 MG/DL (8.5-10.1) Phosphorus Level 3.4 MG/DL (2.5-4.9) Magnesium Level 2.2 MG/DL (1.8-2.4) Total Bilirubin 0.4 MG/DL (0.2-1.0) Aspartate Amino Transf (AST/SGOT) 22 U/L (15-37) Alanine Aminotransferase (ALT/SGPT) 21 U/L (12-78) Alkaline Phosphatase 99 U/L (46-116) Total Creatine Kinase 55 U/L (26-308) Creatine Kinase MB 0.5 NG/ML (0.0-3.6) Creatine Kinase MB Relative Index 0.9 Troponin I 0.000 ng/mL (0.000-0.056) Pro-B-Type Natriuretic Peptide 506 pg/mL (0-125) Total Protein 7.4 G/DL (6.4-8.2) Albumin 3.5 G/DL (3.4-5.0) Globulin 3.9 g/dL Albumin/Globulin Ratio 0.9 (1.0-2.7) Urine Color Pale yellow Urine Appearance Slightly cloudy Urine pH 7 (4.5-8.0) Urine Specific [place] 1.005 (1.005-1.035) Urine Protein 1+ (NEGATIVE) Urine Glucose (UA) Negative (NEGATIVE) Urine Ketones Negative (NEGATIVE) Urine Blood 4+ (NEGATIVE) Urine Nitrite Negative (NEGATIVE) Urine Bilirubin Negative (NEGATIVE) Urine Urobilinogen Normal MG/DL (0.0-1.0) Urine Leukocyte Esterase 3+ (NEGATIVE) Arterial Blood pH 7.399 (7.350-7.450) Arterial Blood Partial Pressure CO2 49.8 mmHg (35.0-45.0) Arterial Blood Partial Pressure O2 75.5 mmHg (75.0-100.0) Arterial Blood HCO3 30.1 mmol/L (22.0-26.0) Arterial Blood Oxygen Saturation 94.3 % (95-100) Arterial Blood Base Excess 4.5 (-2-2) Scooby Test Positive Last Vital Signs Date Time Temp Pulse Resp B/P (MAP) Pulse Ox O2 Delivery O2 Flow Rate FiO2 06/10/19 16:50 100.9 76 22 145/77 90 Nasal Cannula 2.0 Status: unchanged Disposition: PLACE IN OBSERVATION Condition: Improved Leonidas Brenner MD Jun 10, 2019 18:20
--- NOTE | 2019-06-10 18:22 | Diagnostic Imaging Report ---
EXAM: XR Chest, 1 View CLINICAL HISTORY: SOB TECHNIQUE: Frontal view of the chest. COMPARISON: CXR of 04/08/[address] abdomen and pelvis of 04/06/19. FINDINGS: Redemonstrated cardiomegaly. Chronic atelectasis at the left base with elevation of the diaphragm. Fine reticular opacities with prominent pulmonary vasculature. Question mild volume overload. Calcified aorta. No pneumothorax. Redemonstrated right axillary surgical clips. Osteopenia and bony degenerative changes. IMPRESSION: Redemonstrated cardiomegaly with chronic atelectasis at the left base. Fine reticular opacities with prominent pulmonary vasculature. Question mild volume overload.
[2019-06-10] MEDS ORDERED: cefTRIAXone 1 GM in NS 55 ML IVPB ONE (18:30)
[2019-06-10 18:58] VITALS: BP 124/61
--- NOTE | 2019-06-10 19:11 | NUR ---
HAND-OFF: Report given to RALF Viera.
[2019-06-10] MEDS ORDERED: Dicyclomine HCl 10mg/5ml oral soln ORAL ONE (20:00)
[2019-06-10 21:21] VITALS: BP 112/68
--- NOTE | 2019-06-10 22:20 | NUR ---
TRANSFER TO FLOOR: Patient transferred to as ordered, per DR GUTIERREZ. Report given to RALF DYER . Belongings and medications given to . Family and or S/O informed of transfer.
--- NOTE | 2019-06-10 22:30 | NUR ---
NURSE NOTES: Received pt from ED via gurney. Pt transferred to [facility] without any incident. Received report from RALF Viera. Pt is A/Ox4. Guthrie pt to room and unit. equipment monitor phototypesetting is in placed; pt is sinus tachycardia. IV site intact, asymptomatic, and patent. Belongings list checked and signed. Bed is in the lowest position and locked. Call light and bedside table is within reach. No signs/symptoms of acute distress noted at this time. Will contact Dr. Nix for admission orders.
--- NOTE | 2019-06-10 23:00 | NUR ---
NURSE NOTES: Contacted Dr. Nix's medical group for admission orders; awaiting call back from covering MD.
[2019-06-11] VITALS: BP 134/66
[2019-06-11] MEDS: Albuterol/Ipratropium 3ml neb HHN SCH ×6 (03:18→23:00)
[2019-06-11 04:00] VITALS: BP 149/79
[2019-06-11] MEDS: Guaifenesin/DM 10ml syrup ORAL PRN (04:56)
[2019-06-11 07:22] LABS: ANION GAP 10 mmol/L (5-15); BLOOD UREA NITROGEN 19 mg/dL (7-18); CALCIUM 9.7 MG/DL (8.5-10.1); CARBON DIOXIDE 31 MMOL/L (21-32); CHLORIDE 103 MMOL/L (98-107); CREATININE 0.7 MG/DL (0.55-1.30); POTASSIUM 3.5 MMOL/L (3.5-5.1); SODIUM 143 MMOL/L (136-145)
--- NOTE | 2019-06-11 07:23 | NUR ---
NURSE NOTES: Received bedside report from Michela RN. Pt. in bed, awake, alert 3-4 forgetful at times. No sign of distress. On O2 at 2 LPM via NC. Denies pain at present. PICC line at right upper arm with single lumen (PICC line from SNF). Bed in low position, locked. Call light within reach. Will cont. to monitor.
[2019-06-11 07:25] LABS: BASOPHILS % (AUTO) 0.2 % (0.0-2.0); HEMATOCRIT 30.5 % (37.0-47.0); HEMOGLOBIN 10.2 G/DL (12.0-16.0); LYMPHOCYTES % (AUTO) 15.4 % (20.0-45.0); MEAN CORPUSCULAR VOLUME 94 FL (80-99); NEUTROPHILS % (AUTO) 83.3 % (45.0-75.0); PLATELET COUNT 202 K/UL (150-450); RED BLOOD COUNT 3.26 M/UL (4.20-5.40); RED CELL DISTRIBUTION WIDTH 12.8 % (11.6-14.8)
--- NOTE | 2019-06-11 07:46 | NUR ---
HAND-OFF: Report given to RALF Stephenson. Plan of care endorsed.
[2019-06-11 08:00] VITALS: BP 144/84
[2019-06-11] MEDS: Heparin 5000 units/ml inj SUBQ SCH ×2 (09:00→21:28)
--- NOTE | 2019-06-11 09:47 | NUR ---
RADIOLOGY DEPT., CHEST X-RAY DONE.-P.DYE
--- NOTE | 2019-06-11 09:53 | Diagnostic Imaging Report ---
EXAM: XR Chest, 1 View CLINICAL HISTORY: COUGH TECHNIQUE: Frontal view of the chest. COMPARISON: 06/10/19 FINDINGS: Lungs: There are mild bilateral perihilar and lower lobe mixed alveolar and interstitial infiltrates which are unchanged from the prior study. This likely represents pulmonary edema however superimposed pneumonia, particularly in the left lower lobe cannot be excluded. Pleural space: No pneumothorax identified. There are small bladder pleural effusions. Heart: The heart size is mildly enlarged. Mediastinum: Unremarkable. Bones/joints: Unremarkable. IMPRESSION: There are mild bilateral perihilar and lower lobe mixed alveolar and interstitial infiltrates which are unchanged from the prior study. This likely represents pulmonary edema however superimposed pneumonia, particularly in the left lower lobe cannot be excluded.
[2019-06-11 12:00] VITALS: BP 172/80
--- NOTE | 2019-06-11 13:32 | History and Physical ---
History of Present Illness General Date patient seen: Jun 11, 2019 Time patient seen: 12:20 Reason for Hospitalization: Dyspnea/Respdistress Present Illness HPI Patient is a 78-year-old female with hx of COPD, prior UTI's, largely bedbound at baseline from chronic osteoarthritis and low back pain, HTN, sent in for nursing facility for SOB, cough, dysuria, fever. She received steroids, abx in the ED with interval improvement. Found to have UTI on UA, equivocal findings on CXR. Allergies: Coded Allergies: [place] (Unverified Allergy, Mild, upset stomach, 02/10/19) TOMATO (Unverified Allergy, Mild, upset stomach, 02/10/19) TETRACYCLINE (Unverified Allergy, Unknown, 07/24/14) Medication History Scheduled Amlodipine Besylate* (Amlodipine Besylate*), 10 MG ORAL DAILY, (Reported) Ascorbic Acid* (Ascorbic Acid*), 250 MG ORAL DAILY Aspirin* (Aspirin*), 81 MG ORAL DAILY, (Reported) Benzonatate* (Tessalon Perle*), 100 MG ORAL THREE TIMES A DAY, (Reported) Calcium Carbonate/Vitamin D3 (Oysco 500+D Tablet), 1 EACH PO DAILY, (Reported) Calcium Carbonate/Vitamin D3 (Os-Igor 500+D3 Caplet), 1 EACH PO DAILY, (Reported) Clonazepam* (Klonopin*), 0.5 MG ORAL BID Docusate Sodium* (Colace*), 100 MG ORAL BID, (Reported) Dronabinol* (Marinol*), 2.5 MG ORAL BID Escitalopram Oxalate* (Lexapro*), 20 MG ORAL DAILY, (Reported) Escitalopram Oxalate* (Lexapro*), 20 MG ORAL DAILY, (Reported) Ferrous Sulfate* (Ferrous Sulfate*), 325 MG ORAL DAILY, (Reported) Ferrous Sulfate* (Ferrous Sulfate*), 325 MG ORAL DAILY, (Reported) Fluticasone Propionate (Flovent Hfa), 2 PUFFS INH DAILY, (Reported) Fluticasone Propionate (Flovent Hfa), 2 PUFFS INH DAILY, (Reported) Fluticasone Propionate (Flonase Allergy Relief), 9.9 ML NS DAILY, (Reported) Ipratropium Darwin (Atrovent Hfa), 12.9 GM IH Q6HR, (Reported) Lactulose (Lactulose*), 30 ML ORAL DAILY, (Reported) Levalbuterol Hcl (Xopenex*), 0.63 MG HHN Q6H, (Reported) Lisinopril (Lisinopril*), 20 MG ORAL DAILY, (Reported) Magnesium (Magnesium), 200 MG PO QD, (Reported) Metoprolol Tartrate (Metoprolol Tartrate), 25 MG ORAL Q12HR Mirtazapine* (Mirtazapine*), 7.5 MG ORAL BEDTIME Montelukast Sodium* (Montelukast Sodium*), 10 MG ORAL DAILY, (Reported) Multivitamin (Multivitamins), 1 EACH PO QD, (Reported) Pantoprazole* (Protonix*), 40 MG ORAL DAILY, (Reported) Polyethylene Glycol 3350* (Miralax*), 17 GM ORAL DAILY, (Reported) Pregabalin* (Lyrica*), 75 MG ORAL BID, (Reported) Pregabalin* (Lyrica*), 75 MG ORAL TWICE A DAY, (Reported) Rosuvastatin Calcium* (Crestor*), 20 MG ORAL DAILY, (Reported) Sennosides (Senna Laxative), 8.6 MG PO QHS, (Reported) Vancomycin/Water For Inj (Peg) (Vancomycin 1 Gram/200 ml Bag), 1 GM IV DAILY Zinc Sulfate (Zinc Sulfate*), 220 MG ORAL DAILY [Bevespi Aerosphere ], 2 PUFFS INH BID, (Reported) Scheduled PRN Acetaminophen* (Acetaminophen 325MG Tablet*), 650 MG ORAL Q4H PRN for Mild Pain (Pain Scale 1-3), (Reported) Acetylcysteine* (Acetylcysteine*), 200 MG HHN Q4HR PRN for CONGESTION, (Reported ) Benzonatate* (Tessalon Perle*), 100 MG ORAL THREE TIMES A DAY PRN for For Cough, (Reported) Bisacodyl (Dulcolax), 10 MG RC PRN PRN for Constipation, (Reported) Dextromethorphan Hb/Doxylamine (Robitussin Nighttime Cough Dm), 20 ML PO Q8HR PRN for For Cough, (Reported) Dicyclomine Hcl* (Dicyclomine Hcl*), 10 MG ORAL QID PRN for ABDOMINAL PAIN, ( Reported) Guaifenesin/D-Methorphan Hb/Pe (Robitussin Cough-Cold Cf Liq*), 20 ML ORAL Q8H PRN for For Cough, (Reported) Ipratropium Darwin (Atrovent Hfa), 1 UNIT HHN Q6HR PRN for SOB/WHEEZING, ( Reported) Levalbuterol Hcl (Xopenex*), 0.63 MG HHN Q6H PRN for SOB/WHEEZING, (Reported) Mag Hydrox/Al Hydrox/Simeth* (Advanced Antacid Liquid*), 20 ML ORAL Q4H PRN for INDIGESTION, (Reported) Methocarbamol* (Robaxin-500*), 500 MG ORAL Q6H PRN Na Phos,M-B/Na Phos,Di-Ba* (Fleet Enema*), 133 ML RECTAL DAILY PRN for IF MOM OR DULCOLAX INEFFECTIVE, (Reported) Ondansetron* (Zofran*), 4 MG ORAL Q4HR PRN for Nausea & Vomiting, (Reported) Oxycodone/Acetaminophen (Oxycodone-Acetaminophen 5-325), 1 TAB ORAL Q6H PRN for For Pain, (Reported) [facility] 1 EA MISC DAILY PRN Patient History History Provided By: Patient, Medical Record Healthcare decision maker Resuscitation status Full Code Advanced Directive on File Patient History Narrative In addition to the HPI, patient endorses dysuria "for a while," was discharged last time with UTI, dysuria "never went away." Coughing, but denies any significant SOB. Past Medical/Surgical History Past Medical/Surgical History: (1) Acute and chronic respiratory failure ([id number]) (2) Lumbar radiculopathy (3) Lumbar spondylosis (4) Fibromyalgia (5) Cervical spondylosis (6) Cervical radiculopathy (7) Pneumonia (8) DDD (degenerative disc disease), cervical (9) DDD (degenerative disc disease), lumbar (10) Troponin level elevated (11) Urinary tract infection Review of Systems Constitutional: Reports: no symptoms, see HPI, chills, sweats, fever, malaise, weakness, other Eye: Denies: no symptoms, see HPI, eye pain, blurred vision, tearing, double vision, nose pain, nose congestion, acuity changes, discharge, other ENT: Denies: no symptoms, see HPI, ear pain, ear discharge, nose pain, nose congestion, throat pain, throat swelling, mouth pain, hearing loss, nasal discharge, other Respiratory: Reports: no symptoms, see HPI, cough, orthopnea, shortness of breath, stridor, wheezing, AVILA, sputum, other Cardiovascular: Denies: no symptoms, see HPI, chest pain, edema, palpitations, syncope, PND, other Gastrointestinal: Denies: no symptoms, see HPI, abdominal pain, constipation, diarrhea, nausea, vomiting, melena, hematemesis, other Genitourinary: Reports: no symptoms, see HPI, discharge, dysuria, frequency, hematuria, pain, retention, incontinence, urgency, vag bleed/dc, other Musculoskeletal: Denies: no symptoms, see HPI, back pain, gout, joint pain, joint swelling, muscle pain, muscle stiffness, other Skin: Denies: no symptoms, see HPI, rash, change in color, change in hair/nails , dryness, lesions, other Psychiatric: Denies: no symptoms, see HPI, prior hx, anxiety, depressed feelings, emotional problems, SI, HI, hallucinations, other Neurological: Denies: no symptoms, see HPI, headache, numbness, paresthesia, seizure, tingling, tremors, focal weakness, syncope, dizziness, other Endocrine: Denies: no symptoms, see HPI, excessive sweating, flushing, intolerance to temperature, increased thirst, increased urine, unexplained weight loss, other Hematologic/Lymphatic: Denies: no symptoms, see HPI, anemia, blood clots, easy bleeding, easy bruising, swollen glands, diathesis, other All Other Systems: negative except mentioned in HPI Physical Exam General Appearance: WD/WN, no apparent distress, alert HEENT: normocephalic, atraumatic Neck: supple Respiratory/Chest: lungs clear, normal breath sounds Cardiovascular/Chest: normal rate, regular rhythm, no gallop/murmur Abdomen: normal bowel sounds, non tender, soft Extremities: normal range of motion Neurologic: alert, oriented x 3 Last 24 Hour Vital Signs Date Time Temp Pulse Resp B/P (MAP) Pulse Ox O2 Delivery O2 Flow Rate FiO2 06/11/19 09:00 Nasal Cannula 2.0 06/11/19 08:03 110 06/11/19 08:00 97.6 110 20 144/84 (104) 94 06/11/19 07:43 104 22 92 Nasal Cannula 2.0 28 06/11/19 04:00 98 06/11/19 04:00 97.8 106 19 149/79 (102) 94 06/11/19 03:18 100 18 93 Nasal Cannula 2.0 28 06/11/19 03:18 99 20 97 Nasal Cannula 28.0 100 18 93 06/11/19 00:00 125 06/11/19 00:00 98.1 116 20 134/66 (88) 94 06/10/19 22:34 Nasal Cannula 2.0 06/10/19 22:20 99.0 104 16 112/68 100 Nasal Cannula 2.0 28 06/10/19 22:01 95 16 100 Nasal Cannula 2.0 28 101 16 90 06/10/19 21:21 99.0 104 20 112/68 92 Nasal Cannula 2.0 28 06/10/19 18:58 100.9 106 16 124/61 96 Nasal Cannula 2.0 28 06/10/19 18:28 110 16 96 Nasal Cannula 2.0 28 105 16 93 06/10/19 16:50 100.9 76 22 145/77 90 Nasal Cannula 2.0 06/10/19 16:50 110 16 Nasal Cannula 2.0 06/10/19 16:45 100.9 110 16 145/77 (99) 90 Nasal Cannula 2.0 Intake and Output 06/10/19 06/11/19 19:00 07:00 Intake Total 55 ml 240 ml Output Total 500 ml Balance 55 ml -260 ml Intake Oral 240 ml IV Total 55 ml Output Urine Total 500 ml # Voids 2 Laboratory Tests Test 06/10/19 17:21 06/10/19 17:55 06/10/19 17:57 06/11/19 05:50 White Blood Count 12.8 K/UL (4.8-10.8) H 6.0 K/UL (4.8-10.8) # Red Blood Count 3.25 M/UL (4.20-5.40) L 3.26 M/UL (4.20-5.40) L Hemoglobin 9.9 G/DL (12.0-16.0) L 10.2 G/DL (12.0-16.0) L Hematocrit 32.1 % (37.0-47.0) L 30.5 % (37.0-47.0) L Mean Corpuscular Volume 99 FL (80-99) 94 FL (80-99) Mean Corpuscular Hemoglobin 30.6 PG (27.0-31.0) 31.2 PG (27.0-31.0) H Mean Corpuscular Hemoglobin Concent 30.9 G/DL (32.0-36.0) L 33.4 G/DL (32.0-36.0) Red Cell Distribution Width 13.7 % (11.6-14.8) 12.8 % (11.6-14.8) Platelet Count 194 K/UL (150-450) 202 K/UL (150-450) Mean Platelet Volume 6.7 FL (6.5-10.1) 5.4 FL (6.5-10.1) L Neutrophils (%) (Auto) 71.9 % (45.0-75.0) 83.3 % (45.0-75.0) H Lymphocytes (%) (Auto) 21.9 % (20.0-45.0) 15.4 % (20.0-45.0) L Monocytes (%) (Auto) 4.9 % (1.0-10.0) 1.0 % (1.0-10.0) Eosinophils (%) (Auto) 0.7 % (0.0-3.0) 0.0 % (0.0-3.0) Basophils (%) (Auto) 0.7 % (0.0-2.0) 0.2 % (0.0-2.0) Prothrombin Time 10.4 SEC (9.30-11.50) Prothromb Time International Ratio 1.0 (0.9-1.1) Activated Partial Thromboplast Time 31 SEC (23-33) Sodium Level 143 MMOL/L (136-145) 143 MMOL/L (136-145) Potassium Level 4.4 MMOL/L (3.5-5.1) 3.5 MMOL/L (3.5-5.1) Chloride Level 104 MMOL/L (98-107) 103 MMOL/L (98-107) Carbon Dioxide Level 30 MMOL/L (21-32) 31 MMOL/L (21-32) Anion Gap 9 mmol/L (5-15) 10 mmol/L (5-15) Blood Urea Nitrogen 19 mg/dL (7-18) H 19 mg/dL (7-18) H Creatinine 0.7 MG/DL (0.55-1.30) 0.7 MG/DL (0.55-1.30) Estimat Glomerular Filtration Rate mL/min (>60) mL/min (>60) Glucose Level 107 MG/DL (74-106) H 183 MG/DL (74-106) H Lactic Acid Level 0.50 mmol/L (0.4-2.0) Calcium Level 8.6 MG/DL (8.5-10.1) 9.7 MG/DL (8.5-10.1) Phosphorus Level 3.4 MG/DL (2.5-4.9) Magnesium Level 2.2 MG/DL (1.8-2.4) Total Bilirubin 0.4 MG/DL (0.2-1.0) Aspartate Amino Transf (AST/SGOT) 22 U/L (15-37) Alanine Aminotransferase (ALT/SGPT) 21 U/L (12-78) Alkaline Phosphatase 99 U/L (46-116) Total Creatine Kinase 55 U/L (26-308) Creatine Kinase MB 0.5 NG/ML (0.0-3.6) Creatine Kinase MB Relative Index 0.9 Troponin I 0.000 ng/mL (0.000-0.056) Pro-B-Type Natriuretic Peptide 506 pg/mL (0-125) H Total Protein 7.4 G/DL (6.4-8.2) Albumin 3.5 G/DL (3.4-5.0) Globulin 3.9 g/dL Albumin/Globulin Ratio 0.9 (1.0-2.7) L Urine Color Pale yellow Urine Appearance Slightly cloudy Urine pH 7 (4.5-8.0) Urine Specific [place] 1.005 (1.005-1.035) Urine Protein 1+ (NEGATIVE) H Urine Glucose (UA) Negative (NEGATIVE) Urine Ketones Negative (NEGATIVE) Urine Blood 4+ (NEGATIVE) H Urine Nitrite Negative (NEGATIVE) Urine Bilirubin Negative (NEGATIVE) Urine Urobilinogen Normal MG/DL (0.0-1.0) Urine Leukocyte Esterase 3+ (NEGATIVE) H Urine RBC 15-20 /HPF (0 - 2) H Urine WBC 40-60 /HPF (0 - 2) H Urine Squamous Epithelial Cells Moderate /LPF (NONE/OCC) H Urine Bacteria Few /HPF (NONE) Arterial Blood pH 7.399 (7.350-7.450) Arterial Blood Partial Pressure CO2 49.8 mmHg (35.0-45.0) H Arterial Blood Partial Pressure O2 75.5 mmHg (75.0-100.0) Arterial Blood HCO3 30.1 mmol/L (22.0-26.0) H Arterial Blood Oxygen Saturation 94.3 % (95-100) L Arterial Blood Base Excess 4.5 (-2-2) H Scooby Test Positive Microbiology Date/Time Source Procedure Growth Status 06/10/19 17:21 Nasal Nares - Final Complete 06/10/19 17:21 Nasal Nares - Final Complete 06/10/19 17:55 Urine,Clean Catch Urine Culture - Preliminary NO GROWTH Resulted Height (Feet): 5 Height (Inches): 1.00 Weight (Pounds): 140 Medications Current Medications Medications (Trade) Dose Ordered Sig/Wilner Route PRN Reason Start Time Stop Time Status Last Admin Dose Admin Acetaminophen (Tylenol) 650 mg Q4H PRN ORAL Mild Pain/Temp > 100.5 06/11/19 00:30 07/11/19 00:29 06/11/19 06:38 Albuterol/ Ipratropium (Albuterol/ Ipratropium) 3 ml Q4HRT HHN 06/11/19 03:00 06/16/19 02:59 06/11/19 03:18 Ceftriaxone Sodium 1 gm/ Dextrose 55 ml @ 110 mls/hr Q24H IVPB 06/11/19 18:00 06/18/19 17:59 Guaifenesin/ Dextromethorphan (Robitussin DM Syrup) 10 ml Q4H PRN ORAL For Cough 06/11/19 00:45 07/11/19 00:44 06/11/19 04:56 Heparin Sodium (Porcine) (Heparin 5000 units/ml) 5,000 units EVERY 12 HOURS SUBQ 06/11/19 09:00 07/11/19 08:59 Ondansetron HCl (Zofran) 4 mg Q6H PRN IVP Nausea & Vomiting 06/11/19 00:30 07/11/19 00:29 Assessment/Plan Problem List: (1) Troponin level elevated ICD Codes: R78.89 - Troponin level elevated SNOMED: 560466672 (2) DDD (degenerative disc disease), lumbar ICD Codes: M51.36 - DDD (degenerative disc disease), lumbar SNOMED: 51605724 (3) DDD (degenerative disc disease), cervical ICD Codes: M50.30 - DDD (degenerative disc disease), cervical SNOMED: 06300945 (4) Cervical radiculopathy ICD Codes: M54.12 - Cervical radiculopathy SNOMED: 75432727 (5) Acute and chronic respiratory failure ([id number]) ICD Codes: J96.20 - Acute and chr resp failure, unsp w hypoxia or hypercapnia SNOMED: 03884020 (6) Pneumonia ICD Codes: J18.9 - Pneumonia, unspecified organism SNOMED: 580937526 (7) Lumbar spondylosis ICD Codes: M47.816 - Lumbar spondylosis SNOMED: 757754279 (8) Cervical spondylosis ICD Codes: M47.812 - Cervical spondylosis SNOMED: 616398297 (9) Fibromyalgia ICD Codes: M79.7 - Fibromyalgia SNOMED: 16723487 (10) Lumbar radiculopathy ICD Codes: M54.16 - Lumbar radiculopathy SNOMED: 507484443 (11) Urinary tract infection ICD Codes: N39.0 - Urinary tract infection, site not specified SNOMED: 68479766 Status: stable Assessment/Plan: Ms. Sorensen is a 78 year old female with hx significant for COPD, severe osteoarthritis (largely bedbound), HTN, depression, presenting with dysuria, SOB , cough, fever from SNF. #Dysuria #Acute UTI -Admit to observation. -Continue Ceftriaxone (06/10 -) -UA positive. -f/u UCx. #Cough #SOB #COPD #?PNA CXR equivocal for PNA. On exam, not wheezing on exam. -Continue duonebs ATC -Continue prednsione 40 mg daily. s/p solumedrol 125 in the ED. -Monitor. #Depression -Continue Lexapro -continue qhs Mirtazapine. #HTN -Continue amlodipine 10 daily #GERD -Continue PPI daily. Time spent on patient care, 72 minutes. >50% spent on coordination of care and counseling. Extra 35 minutes spent on review of relevant clinical information, including prior notes from physicians/consultants, RN notes, imaging, labs. Mathew Oakley M.D. Jun 11, 2019 13:32
[2019-06-11] MEDS: Lactulose 20gm/30ml UDC ORAL SCH (14:15)
[2019-06-11] MEDS: Aspirin Baby 81mg ORAL SCH (14:15)
[2019-06-11 16:00] VITALS: BP 146/76
[2019-06-11] MEDS: clonazePAM 0.5mg tab ORAL SCH (17:46)
[2019-06-11] MEDS: Lyrica 75mg cap ORAL SCH (17:47)
[2019-06-11] MEDS: Dronabinol 2.5mg Cap ORAL SCH (17:47)
[2019-06-11] MEDS: cefTRIAXone 1 GM in D5W 55 ML IVPB SCH (17:53)
--- NOTE | 2019-06-11 19:50 | NUR ---
NURSE NOTES: Received report from OtonielRN, patient stable, complains of pain, confused, PICC line single lumen, speaking very loudly, bed low&locked, side rails upx3, call light within reach, will continue to monitor and reassess
--- NOTE | 2019-06-11 19:50 | NUR ---
HAND-OFF: Report given to Princess Everett RN. Pt. remain stable.
[2019-06-11 20:00] VITALS: BP 136/74
[2019-06-12] VITALS: BP 156/95
[2019-06-12] MEDS: Guaifenesin/DM 10ml syrup ORAL PRN ×4 (01:07→23:16)
[2019-06-12] MEDS: oxyCODONE HCL/Acetaminophen 5/325mg ORAL PRN ×4 (01:07→23:18)
--- NOTE | 2019-06-12 01:54 | NUR ---
NURSE NOTES: patient is tachycardic 126, called Dr Nix, left message
--- NOTE | 2019-06-12 02:10 | NUR ---
NURSE NOTES: Dr. Augustine ordered EKG and evaluated the strips from both air sampling and monitoring and EKG. No orders at this time
[2019-06-12] MEDS: Albuterol/Ipratropium 3ml neb HHN SCH ×3 (03:49→11:00)
[2019-06-12 04:19] VITALS: BP 150/87
--- NOTE | 2019-06-12 07:28 | NUR ---
HAND-OFF: Report given to RALF Woods, patient in stable condition, plan of care endorsed.
--- NOTE | 2019-06-12 07:32 | NUR ---
NURSE NOTES: Received pt in bed, sleeping. RA. No s/s of distress/pain at this moment. PICC line on JEFERSON noted. Side rails x 2. Bed in the lowest, locked, and alarm on. Call light within reach. Will continue to monitor.
[2019-06-12 08:00] VITALS: BP 160/98
[2019-06-12] MEDS: Lactulose 20gm/30ml UDC ORAL SCH (09:00)
[2019-06-12] MEDS: Heparin 5000 units/ml inj SUBQ SCH ×2 (09:00→21:53)
[2019-06-12] MEDS: clonazePAM 0.5mg tab ORAL SCH ×2 (10:23→17:03)
[2019-06-12] MEDS: Zinc Sulfate 220mg cap ORAL SCH (10:23)
[2019-06-12] MEDS: Montelukast 10mg tablet ORAL SCH (10:23)
[2019-06-12] MEDS: Aspirin Baby 81mg ORAL SCH (10:24)
[2019-06-12] MEDS: Lyrica 75mg cap ORAL SCH ×2 (10:24→17:04)
[2019-06-12] MEDS: Dronabinol 2.5mg Cap ORAL SCH ×2 (10:24→17:03)
[2019-06-12 12:00] VITALS: BP 158/87
[2019-06-12] MEDS ORDERED: Albuterol/Ipratropium 3ml neb HHN PRN (13:30)
--- NOTE | 2019-06-12 13:30 | General Progress Note ---
Assessment/Plan Problem List: (1) Troponin level elevated ICD Codes: R78.89 - Troponin level elevated SNOMED: 713302703 (2) DDD (degenerative disc disease), lumbar ICD Codes: M51.36 - DDD (degenerative disc disease), lumbar SNOMED: 22519795 (3) DDD (degenerative disc disease), cervical ICD Codes: M50.30 - DDD (degenerative disc disease), cervical SNOMED: 53510829 (4) Cervical radiculopathy ICD Codes: M54.12 - Cervical radiculopathy SNOMED: 73527279 (5) Acute and chronic respiratory failure (cebgt-[id number]) ICD Codes: J96.20 - Acute and chr resp failure, unsp w hypoxia or hypercapnia SNOMED: 93913431 (6) Pneumonia ICD Codes: J18.9 - Pneumonia, unspecified organism SNOMED: 121221358 (7) Lumbar spondylosis ICD Codes: M47.816 - Lumbar spondylosis SNOMED: 938640802 (8) Cervical spondylosis ICD Codes: M47.812 - Cervical spondylosis SNOMED: 575588735 (9) Fibromyalgia ICD Codes: M79.7 - Fibromyalgia SNOMED: 21165034 (10) Lumbar radiculopathy ICD Codes: M54.16 - Lumbar radiculopathy SNOMED: 849982905 (11) Urinary tract infection ICD Codes: N39.0 - Urinary tract infection, site not specified SNOMED: 51802548 Status: stable Assessment/Plan: Ms. Sorensen is a 78 year old female with hx significant for COPD, severe osteoarthritis (largely bedbound), HTN, depression, presenting with dysuria, SOB , cough, fever from SNF. #Dysuria #Acute UTI -Continue Ceftriaxone (06/10 -) -UA positive. UCx + for multiple organisms. #Cough #SOB #COPD #Diastolic heart failure CXR more consistent with fluid overload than pneumonia, also no infectious signs and symptoms. -Continue duonebs q4h prn -Continue Singulair 10 mg daily -s/p solumedrol 125 mg x1 in ED, prednisone 40 mg x1. Will d/c steroids and monitor. -Start Lasix IV 20 mg daily, and monitor for improvement of symptoms. Will need a standing Lasix on d/c. -KCl 20 mEq daily. #Depression #Chronic pain #Anxiety disorder #Osteoarthritis -Continue Lexapro -continue qhs Mirtazapine. -Continue pregabalin 75 mg BID -Continue home Dronabinol 2.5 mg BID -PT ordered. -Continue Clonazepam 0.5 mg BID -Continue Oxycodone 5 mg q6h prn #HTN -Continue amlodipine 10 daily -Continue MTP 25 mg BID #GERD -Continue PPI daily. Time spent on patient care, 36 minutes. >50% spent on coordination of care and counseling. Subjective Date patient seen: Jun 12, 2019 Time patient seen: 12:15 ROS Limited/Unobtainable: No Constitutional: Denies: no symptoms, chills, diaphoresis, fever, malaise, weakness, other HEENT: Denies: no symptoms, eye pain, blurred vision, tearing, double vision, ear pain, ear discharge, nose pain, nose congestion, throat pain, throat swelling, mouth pain, mouth swelling, other Cardiovascular: Denies: no symptoms, chest pain, edema, irregular heart rate, lightheadedness, palpitations, syncope, other Respiratory: Denies: no symptoms, cough, orthopnea, shortness of breath, SOB with excertion, SOB at rest, sputum, stridor, wheezing, other Gastrointestinal/Abdominal: Denies: no symptoms, abdomen distended, abdominal pain, black stools, tarry stools, blood in stool, constipated, diarrhea, difficulty swallowing, nausea, poor appetite, poor fluid intake, rectal bleeding , vomiting, other Genitourinary: Denies: no symptoms, burning, discharge, frequency, flank pain, hematuria, incontinence, pain, urgency, other Neurologic/Psychiatric: Denies: no symptoms, anxiety, depressed, emotional problems, headache, numbness, paresthesia, pre-existing deficit, seizure, tingling, tremors, weakness, other Endocrine: Denies: no symptoms, excessive sweating, flushing, intolerance to cold, intolerance to heat, increased hunger, increased thirst, increased urine, unexplained weight gain, unexplained weight loss, other Hematologic/Lymphatic: Denies: no symptoms, anemia, easy bleeding, easy bruising, other Allergies: Coded Allergies: [place] (Unverified Allergy, Mild, upset stomach, 02/10/19) TOMATO (Unverified Allergy, Mild, upset stomach, 02/10/19) TETRACYCLINE (Unverified Allergy, Unknown, 07/24/14) Subjective feels much better. no longer SOB, coughing a little. dysuria improved slightly. no other issues, in good mood today. Objective Last 24 Hour Vital Signs Date Time Temp Pulse Resp B/P (MAP) Pulse Ox O2 Delivery O2 Flow Rate FiO2 06/12/19 12:00 79 06/12/19 12:00 97.4 92 20 158/87 (110) 96 06/12/19 10:24 83 160/98 06/12/19 10:23 83 160/98 06/12/19 08:31 Nasal Cannula 2.0 06/12/19 08:00 97.8 103 18 160/98 (118) 91 06/12/19 08:00 83 06/12/19 07:02 87 20 95 Nasal Cannula 2.0 28 06/12/19 04:19 104 06/12/19 04:19 97.9 104 18 150/87 (108) 94 06/12/19 00:00 99.3 129 20 156/95 (115) 95 06/12/19 00:00 108 06/11/19 21:27 90 136/74 06/11/19 21:00 Nasal Cannula 2.0 06/11/19 20:00 98.2 90 20 136/74 (94) 95 06/11/19 19:46 95 22 94 Nasal Cannula 2.0 28 06/11/19 16:15 109 06/11/19 16:00 97.5 107 20 146/76 (99) 93 06/11/19 14:16 119 172/80 Intake and Output 06/11/19 06/12/19 19:00 07:00 Intake Total 320 ml Output Total 500 ml Balance -180 ml Intake Oral 320 ml Output Urine Total 500 ml # Voids 2 # Bowel Movements 4 1 Height (Feet): 5 Height (Inches): 1.00 Weight (Pounds): 140 General Appearance: WD/WN, no apparent distress, alert EENT: PERRL/EOMI Neck: supple Cardiovascular: normal rate, regular rhythm, no gallop/murmur Respiratory/Chest: lungs clear, normal breath sounds, no respiratory distress Abdomen: normal bowel sounds, non tender, soft Edema: no edema noted Arm (L), no edema noted Arm (R), no edema noted Leg (L), no edema noted Leg (R), no edema noted Pedal (L), no edema noted Pedal (R), no edema noted 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 Jun 12, 2019 13:30
[2019-06-12 16:00] VITALS: BP 152/72
[2019-06-12] MEDS: cefTRIAXone 1 GM in D5W 55 ML IVPB SCH (17:03)
--- NOTE | 2019-06-12 19:23 | NUR ---
HAND-OFF: Report given to RALF Sánchez.
[2019-06-12 20:00] VITALS: BP 96/52
[2019-06-13] VITALS: BP 138/46
--- NOTE | 2019-06-13 03:51 | NUR ---
NURSE NOTES: patient refuses EKG, non compliant, spitting and kicking. Addendum: 06/13/19 at 0743 by HIEU ARANDA RN Disregard this note. wrong patient
[2019-06-13 04:00] VITALS: BP 122/53
[2019-06-13 07:28] LABS: BASOPHILS % (AUTO) 0.3 % (0.0-2.0); EOSINOPHILS % (AUTO) 0.1 % (0.0-3.0); HEMATOCRIT 29.3 % (37.0-47.0); HEMOGLOBIN 9.8 G/DL (12.0-16.0); LYMPHOCYTES % (AUTO) 23.5 % (20.0-45.0); MEAN CORPUSCULAR VOLUME 93 FL (80-99); MONOCYTES % (AUTO) 9.1 % (1.0-10.0); NEUTROPHILS % (AUTO) 67.1 % (45.0-75.0); PLATELET COUNT 251 K/UL (150-450); RED BLOOD COUNT 3.16 M/UL (4.20-5.40); RED CELL DISTRIBUTION WIDTH 12.8 % (11.6-14.8); WHITE BLOOD COUNT 9.4 K/UL (4.8-10.8)
--- NOTE | 2019-06-13 07:43 | NUR ---
HAND-OFF: Report given to RALF Martins, patient in stable condition, plan of care endorsed.
--- NOTE | 2019-06-13 07:45 | NUR ---
NURSE NOTES: Received pt in bed, sleeping. On NC 2L/min. No s/s of distress. PICC line on SHAD noted. Side rails x 2. Bed in the lowest, locked, and alarm on. Call light within reach. Will continue to monitor
[2019-06-13 07:47] LABS: ANION GAP 7 mmol/L (5-15); BLOOD UREA NITROGEN 39 mg/dL (7-18); CALCIUM 8.9 MG/DL (8.5-10.1); CARBON DIOXIDE 31 MMOL/L (21-32); CHLORIDE 106 MMOL/L (98-107); CREATININE 0.9 MG/DL (0.55-1.30); POTASSIUM 3.2 MMOL/L (3.5-5.1); SODIUM 144 MMOL/L (136-145)
[2019-06-13 08:00] VITALS: BP 141/72
[2019-06-13] MEDS: oxyCODONE HCL/Acetaminophen 5/325mg ORAL PRN (08:14)
[2019-06-13] MEDS: Zinc Sulfate 220mg cap ORAL SCH (08:16)
[2019-06-13] MEDS: clonazePAM 0.5mg tab ORAL SCH (08:16)
[2019-06-13] MEDS: Montelukast 10mg tablet ORAL SCH (08:16)
[2019-06-13] MEDS: Aspirin Baby 81mg ORAL SCH (08:17)
[2019-06-13] MEDS: Dronabinol 2.5mg Cap ORAL SCH (08:19)
[2019-06-13] MEDS: Lactulose 20gm/30ml UDC ORAL SCH ×2 (08:20→08:31)
[2019-06-13] MEDS: Guaifenesin/DM 10ml syrup ORAL PRN ×2 (08:20→08:32)
[2019-06-13] MEDS: Heparin 5000 units/ml inj SUBQ SCH (08:21)
[2019-06-13] MEDS: Lyrica 75mg cap ORAL SCH (08:22)
--- NOTE | 2019-06-13 09:01 | General Progress Note ---
Assessment/Plan Status: stable Assessment/Plan: Ms. Sorensen is a 78 year old female with hx significant for COPD, severe osteoarthritis (largely bedbound), HTN, depression, presenting with dysuria, SOB , cough, fever from SNF. #Dysuria #Acute UTI -Continue Ceftriaxone (06/10 -) -UA positive. UCx + MIXED UROGENITAL CONTAMINANTS COLONY COUNT: <10,000 CFU/ML -Stop antibiotics #Cough #SOB #COPD #Diastolic heart failure, with acute exacerbation CXR more consistent with fluid overload than pneumonia, also no infectious signs and symptoms. -Continue duonebs q4h prn -Continue Singulair 10 mg daily -s/p solumedrol 125 mg x1 in ED, prednisone 40 mg x1. Will d/c steroids and monitor. -Start Lasix IV 20 mg daily, and monitor for improvement of symptoms. Will need a standing Lasix on d/c. -KCl 20 mEq daily. #Depression #Chronic pain #Anxiety disorder #Osteoarthritis -Continue Lexapro -continue qhs Mirtazapine. -Continue pregabalin 75 mg BID -Continue home Dronabinol 2.5 mg BID -PT ordered. -Continue Clonazepam 0.5 mg BID -Continue Oxycodone 5 mg q6h prn #HTN -Continue amlodipine 10 daily -Continue MTP 25 mg BID #GERD -Continue PPI daily. Time spent on patient care, 36 minutes. >50% spent on coordination of care and counseling. spent an additional 35 minutes on reviewing hospital course. Subjective Date patient seen: Jun 13, 2019 ROS Limited/Unobtainable: No Constitutional: Reports: weakness HEENT: Denies: no symptoms, eye pain, blurred vision, tearing, double vision, ear pain, ear discharge, nose pain, nose congestion, throat pain, throat swelling, mouth pain, mouth swelling, other Cardiovascular: Denies: no symptoms, chest pain, edema, irregular heart rate, lightheadedness, palpitations, syncope, other Respiratory: Denies: no symptoms, cough, orthopnea, shortness of breath, SOB with excertion, SOB at rest, sputum, stridor, wheezing, other Gastrointestinal/Abdominal: Denies: no symptoms, abdomen distended, abdominal pain, black stools, tarry stools, blood in stool, constipated, diarrhea, difficulty swallowing, nausea, poor appetite, poor fluid intake, rectal bleeding , vomiting, other Genitourinary: Denies: no symptoms, burning, discharge, frequency, flank pain, hematuria, incontinence, pain, urgency, other Neurologic/Psychiatric: Denies: no symptoms, anxiety, depressed, emotional problems, headache, numbness, paresthesia, pre-existing deficit, seizure, tingling, tremors, weakness, other Endocrine: Denies: no symptoms, excessive sweating, flushing, intolerance to cold, intolerance to heat, increased hunger, increased thirst, increased urine, unexplained weight gain, unexplained weight loss, other Hematologic/Lymphatic: Denies: no symptoms, anemia, easy bleeding, easy bruising, other Allergies: Coded Allergies: [place] (Unverified Allergy, Mild, upset stomach, 02/10/19) TOMATO (Unverified Allergy, Mild, upset stomach, 02/10/19) TETRACYCLINE (Unverified Allergy, Unknown, 07/24/14) Subjective seen and examined at bedside. Happy to see me and remembers me from previous admission. Objective Last 24 Hour Vital Signs Date Time Temp Pulse Resp B/P (MAP) Pulse Ox O2 Delivery O2 Flow Rate FiO2 06/13/19 08:21 78 141/72 06/13/19 08:15 78 141/72 06/13/19 08:00 96.1 78 18 141/72 (95) 93 06/13/19 04:00 72 06/13/19 04:00 97.9 79 17 122/53 (76) 96 06/13/19 00:00 77 06/13/19 00:00 98.2 81 18 138/46 (76) 96 06/12/19 21:00 62 96/52 06/12/19 21:00 Nasal Cannula 2.0 06/12/19 20:25 91 20 93 Nasal Cannula 21 06/12/19 20:00 97.7 83 18 96/52 (67) 96 06/12/19 20:00 92 06/12/19 16:00 97.7 79 20 152/72 (98) 94 06/12/19 16:00 70 06/12/19 15:14 102 20 99 Nasal Cannula 2.0 28 92 20 94 06/12/19 12:00 79 06/12/19 12:00 97.4 92 20 158/87 (110) 96 06/12/19 10:24 83 160/98 06/12/19 10:23 83 160/98 Intake and Output 06/12/19 06/13/19 19:00 07:00 Intake Total 55 ml 480 ml Output Total 100 ml Balance 55 ml 380 ml Intake Oral 480 ml IV Total 55 ml Output Urine Total 100 ml # Voids 2 1 Laboratory Tests 06/13/19 07:05: White Blood Count 9.4, Red Blood Count 3.16L, Hemoglobin 9.8L, Hematocrit 29.3L , Mean Corpuscular Volume 93, Mean Corpuscular Hemoglobin 30.9, Mean Corpuscular Hemoglobin Concent 33.4, Red Cell Distribution Width 12.8, Platelet Count 251, Mean Platelet Volume 5.7L, Neutrophils (%) (Auto) 67.1, Lymphocytes ( %) (Auto) 23.5, Monocytes (%) (Auto) 9.1, Eosinophils (%) (Auto) 0.1, Basophils (%) (Auto) 0.3, Sodium Level 144, Potassium Level 3.2L, Chloride Level 106, Carbon Dioxide Level 31, Anion Gap 7, Blood Urea Nitrogen 39H, Creatinine 0.9, Estimat Glomerular Filtration Rate , Glucose Level 127H, Calcium Level 8.9 Height (Feet): 5 Height (Inches): 1.00 Weight (Pounds): 140 Objective General Appearance: WD/WN, no apparent distress, alert EENT: PERRL/EOMI Neck: supple Cardiovascular: normal rate, regular rhythm, no gallop/murmur Respiratory/Chest: lungs clear, normal breath sounds, no respiratory distress Abdomen: normal bowel sounds, non tender, soft Edema: no edema noted Arm (L), no edema noted Arm (R), no edema noted Leg (L), no edema noted Leg (R), no edema noted Pedal (L), no edema noted Pedal (R), no edema noted 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 Jun 13, 2019 09:01
--- NOTE | 2019-06-13 11:30 | NUR ---
PT NOTE Received MD order for PT evaluation. Attempted x2 in the a.m. to see patient for PT evaluation. Patient declined both times due to c/o fatigue. Chuck ARAMBULA notified.
--- NOTE | 2019-06-13 11:39 | NUR ---
*-* DISCHARGE PLANNING *-* PATIENT HAS BEEN REFERRED BACK TO: [facility] P: [phone] F: [phone] EFAX: [phone] EMAIL: [email or web address] centerGreasebooks[facility]
[2019-06-13] MEDS ORDERED: FUROSEMIDE20 M1 ORAL (11:42)
[2019-06-13] MEDS ORDERED: K-TAB ER20 MEQ ORAL (11:42)
[2019-06-13] MEDS ORDERED: LIDOCAINE VISC100 ML ORAL (11:48)
[2019-06-13 12:00] VITALS: BP 127/66
[2019-06-13] MEDS ORDERED: Magic Mouth Wash 60ml (Benadryl/Mylanta/Visc Lido) ORAL PRN (13:00)
--- NOTE | 2019-06-13 13:48 | NUR ---
CASE MANAGEMENT:REVIEW 06/10/19 78 YR OLD FEMALE BIB[facility] FROM [facility] CC: SOB AND SATURATION 88% ON ROOM AIR SI: COPD EXACERBATION. UTI 100.9 110 16 145/77 90% ON 2L/NC WBC+12.8 PCO2+49.8 HC03+30.1 IS: IV SOLUMEDROL IV ROCEPHIN DUONEB HHN CHEST XRAY BLOOD CX : TO TELEMETRY DCP: RETURN TO [facility]
--- NOTE | 2019-06-13 14:12 | NUR ---
NURSE NOTES: Pt was discharged to [facility] in stable condition. Report given to RALF Esposito. Discharge instructions and medication lists were given. Belongings were accounted and given to patient. Notified pt's sister for discharge.
--- NOTE | 2019-06-13 16:49 | Discharge Summary ---
Discharge Summary Hospital Course Date of Admission Jun 11, 2019 at 14:53 Date of Discharge Jun 13, 2019 at 14:05 Admitting Diagnosis copd exacerbation, diastolic CHF exacerbation HPI Brooke Sorensen is a 78 year old female who was admitted on Jun 11, 2019 at 14: 53 for Chronic Obstructive Pulmonary Disease Exacerbation Consultations none Hospital Course Ms. Sorensen is a 78 year old female with hx significant for COPD, severe osteoarthritis (largely bedbound), HTN, depression, presenting with dysuria, SOB , cough, fever from SNF. #Dysuria #Acute UTI -Continue Ceftriaxone (06/10 -) -UA positive. UCx + MIXED UROGENITAL CONTAMINANTS COLONY COUNT: <10,000 CFU/ML -Stop antibiotics #Cough #SOB #COPD #Diastolic heart failure, with acute exacerbation CXR more consistent with fluid overload than pneumonia, also no infectious signs and symptoms. -Continue duonebs q4h prn -Continue Singulair 10 mg daily -s/p solumedrol 125 mg x1 in ED, prednisone 40 mg x1. Will d/c steroids and monitor. -Start Lasix IV 20 mg daily, and monitor for improvement of symptoms. Will need a standing Lasix on d/c. Starte do PO lasix 20 mg daily -KCl 20 mEq daily. #Depression #Chronic pain #Anxiety disorder #Osteoarthritis -Continue Lexapro -continue qhs Mirtazapine. -Continue pregabalin 75 mg BID -Continue home Dronabinol 2.5 mg BID -PT ordered. -Continue Clonazepam 0.5 mg BID -Continue Oxycodone 5 mg q6h prn #HTN -Continue amlodipine 10 daily -Continue MTP 25 mg BID #GERD -Continue PPI daily. Time spent on patient care, 36 minutes. >50% spent on coordination of care and counseling. spent an additional 35 minutes on reviewing hospital course. Disposition; return back to [facility] Discharge Medications New Medications: Furosemide* (Lasix*) 20 Mg Tablet 20 MG ORAL DAILY for 10 Days, #10 TAB Lidocaine HCl 2% Viscous (Lidocaine HCl 2% Viscous) 100 Ml Solution 5 ML ORAL Q4H PRN for 10 Days, #100 ML Potassium Chloride (K-Tab ER) 20 Meq Tablet.er 20 MEQ ORAL DAILY for 10 Days, #10 TAB Continued Medications: Acetaminophen* (Acetaminophen 325MG Tablet*) 325 Mg Tablet 650 MG ORAL Q4H PRN for Mild Pain (Pain Scale 1-3), TAB Acetylcysteine* (Acetylcysteine*) 200 Mg/1 Ml Vial 200 MG HHN Q4HR PRN for CONGESTION, VIAL (This prescription has been renewed) Amlodipine Besylate* (Amlodipine Besylate*) 10 Mg Tablet 10 MG ORAL DAILY, TAB HOLD FOR SBP<110, HR<60 Ascorbic Acid* (Ascorbic Acid*) 500 Mg Tablet 250 MG ORAL DAILY for 30 Days, #30 TAB Aspirin* (Aspirin*) 81 Mg Tab.chew 81 MG ORAL DAILY, TAB (This prescription has been renewed) Benzonatate* (Tessalon Perle*) 100 Mg Capsule 100 MG ORAL THREE TIMES A DAY PRN for For Cough, PERLE (This prescription has been renewed) [Bevespi Aerosphere ] () 9MCG/4.8MCG PUFFS 2 PUFFS INH BID Bisacodyl (Dulcolax) 10 Mg Supp.rect 10 MG RC PRN PRN for Constipation, SUPP Calcium Carbonate/Vitamin D3 (Oysco 500+D Tablet) 1 Each Tablet 1 EACH PO DAILY, TAB (This prescription has been renewed) Clonazepam* (Klonopin*) 0.5 Mg Tablet 0.5 MG ORAL BID for 30 Days, #60 TAB Dextromethorphan Hb/Doxylamine (Robitussin Nighttime Cough Dm) 237 Ml Liquid 20 ML PO Q8HR PRN for For Cough, ML (This prescription has been renewed) Dicyclomine Hcl* (Dicyclomine Hcl*) 10 Mg Capsule 10 MG ORAL QID PRN for ABDOMINAL PAIN, #20 CAP Docusate Sodium* (Colace*) 100 Mg Capsule 100 MG ORAL BID, CAP Dronabinol* (Marinol*) 2.5 Mg Capsule 2.5 MG ORAL BID for 30 Days, #60 CAP Escitalopram Oxalate* (Lexapro*) 20 Mg Tablet 20 MG ORAL DAILY, TAB (This prescription has been renewed) Ferrous Sulfate* (Ferrous Sulfate*) 325 Mg Tablet 325 MG ORAL DAILY, #30 TAB 0 Refills (This prescription has been renewed) Fluticasone Propionate (Flovent Hfa) 12 Gm Aer.w.adap 2 PUFFS INH DAILY, #1 EA 0 Refills (This prescription has been renewed) Ipratropium [place] (Atrovent Hfa) 12.9 Gm Hfa.aer.ad 1 UNIT HHN Q6HR PRN for SOB/WHEEZING (This prescription has been renewed) ATROVENT 0.02% SOLUTION, INHALED VIA NEBULIZER Lactulose (Lactulose*) 20 Gm/30 Ml Solution 30 ML ORAL DAILY for CONSTIPATION, ML 0 Refills (This prescription has been renewed) Levalbuterol Hcl (Xopenex*) 0.63 Mg/3 Ml Vial.neb 0.63 MG HHN Q6H PRN for SOB/WHEEZING, VIAL (This prescription has been renewed) Lisinopril (Lisinopril*) 20 Mg Tablet 20 MG ORAL DAILY for HYPERTENSION, TAB (This prescription has been renewed) HOLD FOR SBP<110 Magnesium (Magnesium) 200 Mg Tablet 200 MG PO QD, TAB (This prescription has been renewed) Methocarbamol* (Robaxin-500*) 500 Mg Tablet 500 MG ORAL Q6H PRN for 30 Days, #30 TAB Metoprolol Tartrate (Metoprolol Tartrate) 25 Mg Tablet 25 MG ORAL Q12HR for 30 Days, #60 TAB Mirtazapine* (Mirtazapine*) 15 Mg Tablet 7.5 MG ORAL BEDTIME for 30 Days, #30 TAB Montelukast Sodium* (Montelukast Sodium*) 10 Mg Tablet 10 MG ORAL DAILY, TAB (This prescription has been renewed) Multivitamin (Multivitamins) 1 Each Tablet 1 EACH PO QD, TAB Na Phos,M-B/Na Phos,Di-Ba* (Fleet Enema*) 133 Ml Enema 133 ML RECTAL DAILY PRN for IF MOM OR DULCOLAX INEFFECTIVE, ML 0 Refills Ondansetron* (Zofran*) 4 Mg Tablet 4 MG ORAL Q4HR PRN for Nausea & Vomiting, TAB (This prescription has been renewed) Oxycodone/Acetaminophen (Oxycodone-Acetaminophen 5-325) 1 Each Tablet 1 TAB ORAL Q6H PRN for For Pain, #10 TAB 0 Refills (This prescription has been renewed) Pantoprazole* (Protonix*) 40 Mg Tablet.dr 40 MG ORAL DAILY, TAB (This prescription has been renewed) Polyethylene Glycol 3350* (Miralax*) 17 Gm Powd.pack 17 GM ORAL DAILY for CONSTIPATION, PACKET (This prescription has been renewed) Pregabalin* (Lyrica*) 75 Mg Capsule 75 MG ORAL TWICE A DAY for NERVE PAIN, CAP (This prescription has been renewed) Rosuvastatin Calcium* (Crestor*) 20 Mg Tablet 20 MG ORAL DAILY, TAB (This prescription has been renewed) Sennosides (Senna Laxative) 8.6 Mg Tablet 8.6 MG PO QHS for CONSTIPATION, TAB (This prescription has been renewed) Zinc Sulfate (Zinc Sulfate*) 220 Mg Capsule 220 MG ORAL DAILY for 30 Days, #30 CAP Discontinued Medications: Benzonatate* (Tessalon Perle*) 100 Mg Capsule 100 MG ORAL THREE TIMES A DAY for cough, PERLE Calcium Carbonate/Vitamin D3 (Os-Igor 500+D3 Caplet) 1 Each Tablet 1 EACH PO DAILY for SUPPLEMENT, TAB Escitalopram Oxalate* (Lexapro*) 20 Mg Tablet 20 MG ORAL DAILY for DEPRESSION, TAB Ferrous Sulfate* (Ferrous Sulfate*) 325 Mg Tablet 325 MG ORAL DAILY for SUPPLEMENT, #30 TAB 0 Refills Fluticasone Propionate (Flovent Hfa) 12 Gm Aer.w.adap 2 PUFFS INH DAILY for COPD, #1 EA 0 Refills Fluticasone Propionate (Flonase Allergy Relief) 9.9 Ml [place].susp 9.9 ML NS DAILY for ALLERGY Guaifenesin/D-Methorphan Hb/Pe (Robitussin Cough-Cold Cf Liq*) 118 Ml Liquid 20 ML ORAL Q8H PRN for For Cough, #118 ML Ipratropium [place] (Atrovent Hfa) 12.9 Gm Hfa.aer.ad 12.9 GM IH Q6HR for SOB/WHEEZING Levalbuterol Hcl (Xopenex*) 0.63 Mg/3 Ml Vial.neb 0.63 MG HHN Q6H for SOB/WHEEZING for 30 Days, VIAL Mag Hydrox/Al Hydrox/Simeth* (Advanced Antacid Liquid*) 355 Ml Oral.susp 20 ML ORAL Q4H PRN for INDIGESTION, ML Pregabalin* (Lyrica*) 75 Mg Capsule 75 MG ORAL BID, CAP [Vanco pharmacy to dose] () 1 EA MISC 1 EA MISC DAILY PRN Vancomycin/Water For Inj (Peg) (Vancomycin 1 Gram/200 ml Bag) 1 Gm/200 Ml Piggyback 1 GM IV DAILY for 6 Days, #6 BAG Discharge Condition Upon Discharge: stable Discharge Disposition Patient was discharged to SNF. [facility] Discharge Diagnoses: (1) Diastolic CHF, acute on chronic (2) Hypokalemia (3) COPD (chronic obstructive pulmonary disease) (4) Hypertension Philipp Moreau M.D. Jun 13, 2019 16:49
== END 2019-06-13 14:05 | DRG 291 ==
LOC: EDBD 16:44 → EDUNIT# 16:44 → EDBEDREQ 18:11 → EMR 18:55 → 2E 19:03 → EDBEDREQ 20:31 → OBSVTOIN 06-11 14:53
DX: I11.0 Hypertensive heart disease with heart failure (principal); J18.9 Pneumonia, unspecified organism; J96.21 Acute and chronic respiratory failure with hypoxia; J44.1 Chronic obstructive pulmonary disease with (acute) exacerbation; N39.0 Urinary tract infection, site not specified; I50.33 Acute on chronic diastolic (congestive) heart failure; M79.7 Fibromyalgia; Z88.8 Allergy status to other drugs, medicaments and biological substances; M50.10 Cervical disc disorder with radiculopathy, unspecified cervical region; M47.892 Other spondylosis, cervical region; M19.90 Unspecified osteoarthritis, unspecified site; K21.9 Gastro-esophageal reflux disease without esophagitis; F32.9 Major depressive disorder, single episode, unspecified; G89.29 Other chronic pain; M54.5 Low back pain; F41.9 Anxiety disorder, unspecified; E87.6 Hypokalemia
CPT/HCPCS: 36415; 36600; 71045; 80048; 80053; 81003; 82550; 82553; 82803; 83605; 83735; 83880; 84100; 84484; 85025; 85610; 85730; 86710; 87040; 87081; 87086; 93005; 94640; 94664; 96365; 96375; 99285; J2405; J7620; J8499

== ENCOUNTER 2019-07-16 23:30 | Inpatient (IN) | payer MEDICARE, OTHER ==
[~2019-07-16] VITALS: Ht 162.6 cm; Wt 78.5 kg
[~2019-07-16 23:30] MED LIST changes: +FLOVENT2 PUFF2 INH; +FUROSEMIDE20 M1 ORAL; +K-TAB ER20 MEQ ORAL; +LACTULOSE20 GM/301 ORAL; +LIDOCAINE VISC100 ML ORAL; +PERCOCET1 TAB ORAL; +ROBITUSSIN COU118 M1 ORAL; +SENNA LAXATIVE8.6 MG PO
--- NOTE | 2019-07-16 23:40 | NUR ---
ED Nurse Note: PT DEVORA LAFLEUR PENA PAV C/O NAUSEA FOR "FEW DAYS" WITH UNK CAUSE. DENIES VOMITTING AND C/O LLQ ABD PAIN WITH DISTENTION NOTED. VSS. NAD.
[2019-07-17] VITALS (7 sets, daily range): BP systolic 137–163; BP diastolic 72–90
--- NOTE | 2019-07-17 | NUR ---
ED Nurse Note: blood collected and sent to lab
[2019-07-17] MEDS ORDERED: Ketorolac 30mg Inj IV ONE (00:45)
--- NOTE | 2019-07-17 01:00 | NUR ---
ED Nurse Note: pt went for ct via dary accompanied by tech
[2019-07-17 01:01] LABS: HEMATOCRIT 32.9 % (37.0-47.0); HEMOGLOBIN 11.1 G/DL (12.0-16.0); LYMPHOCYTES % (AUTO) 31.6 % (20.0-45.0); MEAN CORPUSCULAR VOLUME 91 FL (80-99); MONOCYTES % (AUTO) 3.9 % (1.0-10.0); NEUTROPHILS % (AUTO) 62.5 % (45.0-75.0); PLATELET COUNT 193 K/UL (150-450); RED CELL DISTRIBUTION WIDTH 11.9 % (11.6-14.8); WHITE BLOOD COUNT 8.4 K/UL (4.8-10.8)
--- NOTE | 2019-07-17 01:12 | NUR ---
ED Nurse Note: pt back from ct
[2019-07-17 01:18] LABS: ANION GAP 9 mmol/L (5-15); BLOOD UREA NITROGEN 13 mg/dL (7-18); CALCIUM 9.6 MG/DL (8.5-10.1); CARBON DIOXIDE 31 MMOL/L (21-32); CHLORIDE 95 MMOL/L (98-107); CREATININE 0.5 MG/DL (0.55-1.30); SODIUM 135 MMOL/L (136-145)
[2019-07-17 01:22] LABS: ALANINE AMINOTRANSFERASE 17 U/L (12-78); ALBUMIN/GLOBULIN RATIO 1.1 (1.0-2.7); ALKALINE PHOSPHATASE 107 U/L (46-116); ASPARTATE AMINO TRANSFERASE 17 U/L (15-37); BILIRUBIN,TOTAL 0.4 MG/DL (0.2-1.0)
--- NOTE | 2019-07-17 01:58 | Diagnostic Imaging Report ---
EXAM: CT Abdomen and Pelvis Without Intravenous Contrast CLINICAL HISTORY: Abdominal pain. TECHNIQUE: Axial computed tomography images of the abdomen and pelvis without intravenous contrast. CTDI is 7.20 mGy and DLP is 332.3 mGy-cm. One or more of the following dose reduction techniques were used: automated exposure control, adjustment of the mA and/or kV according to patient size, use of iterative reconstruction technique. COMPARISON: 04/06/2019. 04/07/2019. FINDINGS: Lung bases: Subsegmental atelectasis is noted at the right lung base. Pleural space: Posterior pleural thickening at the lung bases bilaterally. Heart: Cardiomegaly. Subsegmental atelectasis and scarring posteriorly at the left lung base. Cardiomegaly. Mediastinum: Elevation of the right hemidiaphragm. Small hiatal hernia. ABDOMEN: Liver: The liver and spleen are normal in contour. The uppermost aspect of the liver and the spleen are not visualized. Gallbladder and bile ducts: Tiny gallstone is best seen on series 3 image 54. No ductal dilation. Pancreas: Unremarkable. No ductal dilation. Spleen: See above. Adrenals: The adrenal glands, the head, body, tail of the parenchyma is unremarkable. Kidneys and ureters: Severe hydronephrosis of the right kidney is again noted similar to the previous study. Nonobstructing calculi are noted layering in the dependent portion of the dilated renal pelvis, best seen on series 2 image 72, similar to her previous study. The possibility of right ureteropelvic junction obstruction should be considered. The left kidney is normal in contour. Best seen on series 2 image 58, there is suggestion of a 0.5 cm probable hemorrhagic cyst within the lower pole region of the left kidney. Ultrasound imaging of the left kidney is advised to follow. Stomach and bowel: Interposition of large bowel loops anterior to the liver. Moderate quantity of stool throughout the colon. No evidence of bowel obstruction. The rectum is mildly distended with air and stool. Minimal inflammatory changes are noted at the rectosigmoid junction best seen on series 3 image 107. Mild or early inflammatory or infectious etiology should be considered. No mucosal thickening. PELVIS: Appendix: The appendix is best seen on series 7 image 39 and is unremarkable. Bladder: Bladder is underdistended but grossly unremarkable. No stones. Reproductive: Extensive fibroid uterus. ABDOMEN and PELVIS: Intraperitoneal space: Unremarkable. No free air. No significant fluid collection. Bones/joints: Grade 1 anterolisthesis of L5 upon S1 vertebral body. Vacuum disc at L5-S1 level. Sacrum and coccyx are unremarkable. The hip joints are intact. Severe levoscoliosis of the visualized thoracolumbar spine. No acute fracture. No dislocation. Soft tissues: Ischiorectal fat is clean. Vasculature: Atherosclerotic disease of the abdominal aorta is noted without significant change in caliber. No retroperitoneal lymphadenopathy. The infrarenal abdominal aorta best measures 2.4 x 1.8 cm. No abdominal aortic aneurysm. Lymph nodes: There is no pelvic or inguinal lymphadenopathy noted. Other findings: Minimal ASCVD. IMPRESSION: Limited ovation to the lack of oral and intravenous contrast demonstration. Severe hydronephrosis of the right kidney is again noted with nonobstructing calculi layering in the dependent portion of the dilated right renal pelvis. Findings are again suggestive of ureteral pelvic junction obstruction. With respect to the left kidney, a hyperdense structure is noted in the lower pole region possibly hemorrhagic cyst. Ultrasound imaging of the kidneys is advised to follow. No evidence of bowel obstruction. The appendix is unremarkable. Fibroid uterus, similar to the previous study.
[2019-07-17 03:30] LABS: APPEARANCE,URINE CLEAR; BILIRUBIN, URINE NEGATIVE (NEGATIVE); COLOR,URINE PALE YELLOW; GLUCOSE, URINE (UA) NEGATIVE (NEGATIVE); KETONES,URINE NEGATIVE (NEGATIVE); LEUKOCYTE ESTERASE ,URINE 2+ (NEGATIVE); NITRITE,URINE NEGATIVE (NEGATIVE); PH,URINE 8 (4.5-8.0); PROTEIN,URINE NEGATIVE (NEGATIVE); UROBILINOGEN,URINE NORMAL MG/DL (0.0-1.0)
--- NOTE | 2019-07-17 03:40 | NUR ---
TRANSFER TO FLOOR: Patient transferred to [facility] via gurney accompanied by 2 rn in stable condition as ordered, per dr. Nix . Report given to Margot ARAMBULA. Belongings sent with patient.
--- NOTE | 2019-07-17 03:42 | NUR ---
ED Nurse Note: GAVE REPORT TO ESTEFANIA ARAMBULA
[2019-07-17] MEDS ORDERED: D5NS 1,000 ML IV SCH (04:00)
--- NOTE | 2019-07-17 04:00 | NUR ---
NURSE NOTES: Report received from David Mansfield RN. Pt transported from ED to Tele without incident via gurney. Pt requests room closer to the nurses station, room changed to suit pt request. Pt is observed resting in bed. Pt noted to be alert and oriented x3-4. Pt is able to follow commands and make needs known. Pt assessed for pain; and notes upper left quadrant abdominal pain. Pt noted to be SR on manager cardiac with a current HR of 88 and no s/sx of cardiac distress noted. Pt is currently on 2L NC with no s/sx of acute distress noted. Right hand 20g IV catheter noted which remain asymptomatic, patent and intact. Skin remains intact. Diagnostics reviewed, medical hisotry and allergies confirmed and pt agrees to safety contract. Pt remains resting in bed; bed remains in the lowest position with safety wheels engaged, side rails up x3, call light within reach and bed alarm activated. Will continue plan of care. Will continue to monitor.
--- NOTE | 2019-07-17 04:20 | NUR ---
NURSE NOTES: Spoke with Dr Augustine regarding admission orders, which home medications to continue and pain management. Will carry out orders. Will continue to monitor.
[2019-07-17] MEDS ORDERED: Levalbuterol Inh UD 1.25mg/0.5ml HHN PRN ×2 (04:45→06:00)
[2019-07-17] MEDS ORDERED: Sennosides 8.6mg tab ORAL PRN (04:45)
--- NOTE | 2019-07-17 05:22 | NUR ---
NURSE NOTES: Pt requests pain medication and agrees to PRN order. Scanned patient and initial pain assessment performed. Pt then refused pain medication and states she wants IV morphine. No order for IV morphine. Pt education provided r/o bowel obstruction and opioids causing decreased peristalsis. Will continue to educate patient. Will await call back regarding adequate pain management. Will continue to monitor patient.
--- NOTE | 2019-07-17 06:26 | NUR ---
NURSE NOTES: Called Dr Augustine regarding pt refusing PO pain medication and for order for magic mouthwash per pt request. Pt has ulcer noted in cheek pouch.
--- NOTE | 2019-07-17 06:31 | Emergency Room Report ---
History of Present Illness General Chief Complaint: Nausea Source: Patient, EMS Present Illness HPI Patient is a 78-year-old female brought in by [facility] for increased abdominal pain. Prior history of COPD as well as chronic pain. She been having decreased bowel movements despite enema. She had previously been noted to be nonambulatory due to spinal stenosis. She had been sent in for further evaluation and treatment of abdominal pain. Allergies: Coded Allergies: [place] (Unverified Allergy, Mild, upset stomach, 02/10/19) TOMATO (Unverified Allergy, Mild, upset stomach, 02/10/19) TETRACYCLINE (Unverified Allergy, Unknown, 07/24/14) Patient History Past Medical History: see triage record Reviewed Nursing Documentation: PMH: Agreed; PSxH: Agreed Nursing Documentation-PMH Hx Cardiac Problems: Yes Hx Hypertension: Yes Hx Asthma: Yes Hx COPD: Yes Hx Diabetes: Yes Hx Cancer: Yes Hx Gastrointestinal Problems: Yes - Gastritis, H. Pylori, colonic polyps Hx Neurological Problems: No Review of Systems All Other Systems: negative except mentioned in HPI Physical Exam Vital Signs Date Time Temp Pulse Resp B/P (MAP) Pulse Ox O2 Delivery O2 Flow Rate FiO2 07/16/19 23:38 98.4 90 16 153/86 (108) 95 Simple Mask 2.0 Sp02 EP Interpretation: reviewed, normal General Appearance: alert, GCS 15, non-toxic, Chronically Ill Head: atraumatic ENT: normal ENT inspection, hearing grossly normal, normal voice Neck: normal inspection, supple, no bony tend, limited range of motion Respiratory: normal inspection, lungs clear, normal breath sounds, no respiratory distress, no retraction, no wheezing Cardiovascular #1: regular rate, rhythm, no edema Gastrointestinal: soft, no guarding, no hernia Genitourinary: no CVA tenderness Musculoskeletal: decreased range of motion 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 Differential diagnosis includes not limited to bowel obstruction, kidney stone, urinary tract infection, ischemic colitis among others. Because of complexity of patient's case laboratory tests and imaging studies were ordered. Patient was noted to have some prior history of chronic spinal disease and chronic pain. CT imaging was ordered and showed some continued renal stone see radiology report for full details which had been seen on previous imaging. She had previously been on antibiotics for urinary infection. Dr. Guerra was contacted for [facility] for inpatient management for further evaluation treatment of abdominal pain. Laboratory Tests Test 07/17/19 00:45 07/17/19 01:25 White Blood Count 8.4 K/UL (4.8-10.8) Red Blood Count 3.60 M/UL (4.20-5.40) L Hemoglobin 11.1 G/DL (12.0-16.0) L Hematocrit 32.9 % (37.0-47.0) L Mean Corpuscular Volume 91 FL (80-99) Mean Corpuscular Hemoglobin 30.7 PG (27.0-31.0) Mean Corpuscular Hemoglobin Concent 33.6 G/DL (32.0-36.0) Red Cell Distribution Width 11.9 % (11.6-14.8) Platelet Count 193 K/UL (150-450) Mean Platelet Volume 5.5 FL (6.5-10.1) L Neutrophils (%) (Auto) 62.5 % (45.0-75.0) Lymphocytes (%) (Auto) 31.6 % (20.0-45.0) Monocytes (%) (Auto) 3.9 % (1.0-10.0) Eosinophils (%) (Auto) 1.0 % (0.0-3.0) Basophils (%) (Auto) 1.0 % (0.0-2.0) Sodium Level 135 MMOL/L (136-145) L Potassium Level 4.0 MMOL/L (3.5-5.1) Chloride Level 95 MMOL/L (98-107) L Carbon Dioxide Level 31 MMOL/L (21-32) Anion Gap 9 mmol/L (5-15) Blood Urea Nitrogen 13 mg/dL (7-18) Creatinine 0.5 MG/DL (0.55-1.30) L Estimate Glomerular Filtration Rate > 60 mL/min (>60) Glucose Level 109 MG/DL (74-106) H Calcium Level 9.6 MG/DL (8.5-10.1) Total Bilirubin 0.4 MG/DL (0.2-1.0) Aspartate Amino Transferase (AST) 17 U/L (15-37) Alanine Aminotransferase (ALT) 17 U/L (12-78) Alkaline Phosphatase 107 U/L (46-116) Troponin I 0.008 ng/mL (0.000-0.056) Total Protein 7.5 G/DL (6.4-8.2) Albumin 4.0 G/DL (3.4-5.0) Globulin 3.5 g/dL Albumin/Globulin Ratio 1.1 (1.0-2.7) Lipase 194 U/L (73-393) Urine Color Pale yellow Urine Appearance Clear Urine pH 8 (4.5-8.0) Urine Specific [place] 1.010 (1.005-1.035) Urine Protein Negative (NEGATIVE) Urine Glucose (UA) Negative (NEGATIVE) Urine Ketones Negative (NEGATIVE) Urine Blood 4+ (NEGATIVE) H Urine Nitrite Negative (NEGATIVE) Urine Bilirubin Negative (NEGATIVE) Urine Urobilinogen Normal MG/DL (0.0-1.0) Urine Leukocyte Esterase 2+ (NEGATIVE) H Urine RBC 2-4 /HPF (0 - 2) H Urine WBC 0-2 /HPF (0 - 2) Urine Squamous Epithelial Cells Occasional /LPF Urine Bacteria Occasional /HPF (NONE) Last Vital Signs Date Time Temp Pulse Resp B/P (MAP) Pulse Ox O2 Delivery O2 Flow Rate FiO2 07/17/19 04:48 Nasal Cannula 2.0 07/17/19 04:15 88 07/17/19 04:00 97.8 22 138/82 (100) 90 Status: unchanged Disposition: ADMITTED INPATIENT Condition: Stable Referrals: Delia Nix MD (PCP) Leonidas Brenner MD Jul 17, 2019 06:31
--- NOTE | 2019-07-17 07:12 | NUR ---
HAND-OFF: Report given to RALF Chi. Pt remains stable at this time.
--- NOTE | 2019-07-17 07:30 | NUR ---
NURSE NOTES: Received report from RALF Frost. Patient sitting is on bed. Patient is Alert and oriented x 3-4. Patient is on nasal cannula at 2 Lpm, on clear liquid diet-instructed. No acute distress, denies chest pain at this time. Patient has left hand g-20 D5 Saline 50cc/hour that is dry,clean and intact no infiltration noted. Bed is in lowest position, call light within reach. Bed alarm is on. Advised patient to call for any assistance. Plan of care discussed. Will continue to monitor.
[2019-07-17] MEDS ORDERED: Aspirin Baby 81mg NG SCH (09:00)
[2019-07-17] MEDS ORDERED: Miralax 17gm pkt ORAL PRN (09:00)
[2019-07-17] MEDS ORDERED: HydrALAZINE 10mg Tab ORAL PRN (09:15)
[2019-07-17] MEDS: Lisinopril 20mg tab ORAL SCH (09:45)
[2019-07-17] MEDS: Aspirin Baby 81mg ORAL SCH (09:45)
[2019-07-17] MEDS: Magnesium Oxide 400mg tab ORAL SCH ×3 (09:46→17:05)
[2019-07-17] MEDS: Calcium Carbonate 500mg w/Vit D 200iu tab ORAL SCH (09:46)
[2019-07-17] MEDS: Docusate 100mg cap ORAL SCH ×2 (09:46→17:08)
[2019-07-17] MEDS: Enoxaparin 40mg Inj SUBQ SCH (09:48)
[2019-07-17] MEDS: Lactulose 20gm/30ml UDC ORAL SCH ×2 (09:49→17:04)
[2019-07-17] MEDS: Flovent 110mcg Inhaler - 12gm INH SCH ×2 (10:00→21:29)
[2019-07-17] MEDS: oxyCODONE 5mg IR tab ORAL PRN ×3 (11:01→22:52)
[2019-07-17] MEDS ORDERED: Magic Mouth Wash 60ml (Benadryl/Mylanta/Visc Lido) ORAL SCH (13:00)
--- NOTE | 2019-07-17 13:06 | History and Physical ---
History of Present Illness General Reason for Hospitalization: Nausea Present Illness HPI 78-year-old female with PMH of COPD, O2 dependent, diastolic heart failure, h/o multiple UTIs, mostly bed bound, [facility] with N/V x1. Patient denies any F/C, dysuria, diarrhea/constipation at this time. In the ED, CT abdomen was obtained which revealed severe hydronephrosis of right kidney, nonobstructing, UV pelvic junction obstruction, with hemorrhagic cyst. Patient currently denies any dysuria, hematuria at this time. Patient denies GAMEZ, vision changes, CP, S OB, or neurological changes. Patient admitted for further treatment and evaluation. PMH: COPD, O2 dependent, diastolic heart failure, IBS FH: Reviewed and not pertinent Allergies: Tetracycline Allergies: Coded Allergies: [place] (Unverified Allergy, Mild, upset stomach, 02/10/19) TOMATO (Unverified Allergy, Mild, upset stomach, 02/10/19) TETRACYCLINE (Unverified Allergy, Unknown, 07/24/14) Medication History Scheduled Amlodipine Besylate* (Amlodipine Besylate*), 10 MG ORAL DAILY, (Reported) Ascorbic Acid* (Ascorbic Acid*), 250 MG ORAL DAILY Aspirin* (Aspirin*), 81 MG ORAL DAILY, (Reported) Calcium Carbonate/Vitamin D3 ([place] 500+D Tablet), 1 EACH PO DAILY, (Reported) Clonazepam* (Klonopin*), 0.5 MG ORAL BID Docusate Sodium* (Colace*), 100 MG ORAL BID, (Reported) Dronabinol* (Marinol*), 2.5 MG ORAL BID Escitalopram Oxalate* (Lexapro*), 20 MG ORAL DAILY, (Reported) Ferrous Sulfate* (Ferrous Sulfate*), 325 MG ORAL DAILY, (Reported) Fluticasone Propionate (Flovent Hfa), 2 PUFFS INH DAILY, (Reported) Furosemide* (Lasix*), 20 MG ORAL DAILY Lactulose (Lactulose*), 30 ML ORAL DAILY, (Reported) Lisinopril (Lisinopril*), 20 MG ORAL DAILY, (Reported) Magnesium (Magnesium), 200 MG PO QD, (Reported) Metoprolol Tartrate (Metoprolol Tartrate), 25 MG ORAL Q12HR Mirtazapine* (Mirtazapine*), 7.5 MG ORAL BEDTIME Montelukast Sodium* (Montelukast Sodium*), 10 MG ORAL DAILY, (Reported) Multivitamin (Multivitamins), 1 EACH PO QD, (Reported) Pantoprazole* (Protonix*), 40 MG ORAL DAILY, (Reported) Polyethylene Glycol 3350* (Miralax*), 17 GM ORAL DAILY, (Reported) Potassium Chloride (K-Tab ER), 20 MEQ ORAL DAILY Pregabalin* (Lyrica*), 75 MG ORAL TWICE A DAY, (Reported) Rosuvastatin Calcium* (Crestor*), 20 MG ORAL DAILY, (Reported) Sennosides (Senna Laxative), 8.6 MG PO QHS, (Reported) Zinc Sulfate (Zinc Sulfate*), 220 MG ORAL DAILY [Bevespi Aerosphere ], 2 PUFFS INH BID, (Reported) Scheduled PRN Acetaminophen* (Acetaminophen 325MG Tablet*), 650 MG ORAL Q4H PRN for Mild Pain (Pain Scale 1-3), (Reported) Acetylcysteine* (Acetylcysteine*), 200 MG HHN Q4HR PRN for CONGESTION, (Reported ) Benzonatate* (Tessalon Perle*), 100 MG ORAL THREE TIMES A DAY PRN for For Cough, (Reported) Bisacodyl (Dulcolax), 10 MG RC PRN PRN for Constipation, (Reported) Dextromethorphan Hb/Doxylamine (Robitussin Nighttime Cough Dm), 20 ML PO Q8HR PRN for For Cough, (Reported) Dicyclomine Hcl* (Dicyclomine Hcl*), 10 MG ORAL QID PRN for ABDOMINAL PAIN, ( Reported) Ipratropium [place] (Atrovent Hfa), 1 UNIT HHN Q6HR PRN for SOB/WHEEZING, ( Reported) Levalbuterol Hcl (Xopenex*), 0.63 MG HHN Q6H PRN for SOB/WHEEZING, (Reported) Lidocaine HCl 2% Viscous (Lidocaine HCl 2% Viscous), 5 ML ORAL Q4H PRN Methocarbamol* (Robaxin-500*), 500 MG ORAL Q6H PRN Na Phos,M-B/Na Phos,Di-Ba* (Fleet Enema*), 133 ML RECTAL DAILY PRN for IF MOM OR DULCOLAX INEFFECTIVE, (Reported) Ondansetron* (Zofran*), 4 MG ORAL Q4HR PRN for Nausea & Vomiting, (Reported) Oxycodone/Acetaminophen (Oxycodone-Acetaminophen 5-325), 1 TAB ORAL Q6H PRN for For Pain, (Reported) Patient History Healthcare decision maker Resuscitation status Full Code Advanced Directive on File Review of Systems Constitutional: Denies: no symptoms, see HPI, chills, sweats, fever, malaise, weakness, other Eye: Denies: no symptoms, see HPI, eye pain, blurred vision, tearing, double vision, nose pain, nose congestion, acuity changes, discharge, other ENT: Denies: no symptoms, see HPI, ear pain, ear discharge, nose pain, nose congestion, throat pain, throat swelling, mouth pain, hearing loss, nasal discharge, other Respiratory: Denies: no symptoms, see HPI, cough, orthopnea, shortness of breath, stridor, wheezing, AVILA, sputum, other Cardiovascular: Denies: no symptoms, see HPI, chest pain, edema, palpitations, syncope, PND, other Gastrointestinal: Reports: abdominal pain, nausea, vomiting; Denies: no symptoms, see HPI, constipation, diarrhea, melena, hematemesis, other Genitourinary: Denies: no symptoms, see HPI, discharge, dysuria, frequency, hematuria, pain, retention, incontinence, urgency, vag bleed/dc, other Musculoskeletal: Denies: no symptoms, see HPI, back pain, gout, joint pain, joint swelling, muscle pain, muscle stiffness, other Skin: Denies: no symptoms, see HPI, rash, change in color, change in hair/nails , dryness, lesions, other Psychiatric: Denies: no symptoms, see HPI, prior hx, anxiety, depressed feelings, emotional problems, SI, HI, hallucinations, other Neurological: Denies: no symptoms, see HPI, headache, numbness, paresthesia, seizure, tingling, tremors, focal weakness, syncope, dizziness, other Endocrine: Denies: no symptoms, see HPI, excessive sweating, flushing, intolerance to temperature, increased thirst, increased urine, unexplained weight loss, other Hematologic/Lymphatic: Denies: no symptoms, see HPI, anemia, blood clots, easy bleeding, easy bruising, swollen glands, diathesis, other Physical Exam Physical Exam Narrative General: NAD, A&O x 3 HEENT: NCAT, EOMi, PEERLA, nares patent and no symmetrical, no tonsillar exudates, mucous membranes moist CV: RRR, no murmurs, rubs, or gallops Pulm: CTAB, No wheezes, rhonchi, or rales, no accessory muscle usage or conversational dyspnea, on 2 L NC at baseline per patient GI: Soft, nontender, nondistended, bowel sounds present Neuro: CN 2-12 grossly intact bilaterally, no focal signs. Ext: No lower extremity edema bilaterally Skin: no rashes lesions or ulcers Msk: Joints symmetrical in upper extremity and lower extremity bilaterally, no joint swelling. Lymph: No lymphadenopathy in upper extremity and lower extremity Last 24 Hour Vital Signs Date Time Temp Pulse Resp B/P (MAP) Pulse Ox O2 Delivery O2 Flow Rate FiO2 07/17/19 12:00 2.0 07/17/19 12:00 97.8 88 20 163/88 (113) 98 07/17/19 09:45 160/83 07/17/19 09:00 Nasal Cannula 2.0 07/17/19 08:00 98.1 75 20 160/83 (108) 98 07/17/19 08:00 2.0 07/17/19 08:00 80 07/17/19 07:37 97 Nasal Cannula 2.0 28 07/17/19 04:48 Nasal Cannula 2.0 07/17/19 04:15 88 07/17/19 04:00 97.8 88 22 138/82 (100) 90 07/17/19 03:40 98.5 88 16 137/88 96 Nasal Cannula 2.0 07/17/19 03:30 98.5 88 16 137/88 96 Nasal Cannula 2.0 07/17/19 01:39 98.4 07/17/19 00:00 98.4 90 16 148/72 95 Nasal Cannula 2.0 07/16/19 23:38 98.4 90 16 153/86 (108) 95 Simple Mask 2.0 Intake and Output 07/16/19 07/17/19 19:00 07:00 Intake Total 0 ml Balance 0 ml Intake Oral 0 ml # Voids 1 Laboratory Tests Test 07/17/19 00:45 07/17/19 01:25 White Blood Count 8.4 K/UL (4.8-10.8) Red Blood Count 3.60 M/UL (4.20-5.40) L Hemoglobin 11.1 G/DL (12.0-16.0) L Hematocrit 32.9 % (37.0-47.0) L Mean Corpuscular Volume 91 FL (80-99) Mean Corpuscular Hemoglobin 30.7 PG (27.0-31.0) Mean Corpuscular Hemoglobin Concent 33.6 G/DL (32.0-36.0) Red Cell Distribution Width 11.9 % (11.6-14.8) Platelet Count 193 K/UL (150-450) Mean Platelet Volume 5.5 FL (6.5-10.1) L Neutrophils (%) (Auto) 62.5 % (45.0-75.0) Lymphocytes (%) (Auto) 31.6 % (20.0-45.0) Monocytes (%) (Auto) 3.9 % (1.0-10.0) Eosinophils (%) (Auto) 1.0 % (0.0-3.0) Basophils (%) (Auto) 1.0 % (0.0-2.0) Sodium Level 135 MMOL/L (136-145) L Potassium Level 4.0 MMOL/L (3.5-5.1) Chloride Level 95 MMOL/L (98-107) L Carbon Dioxide Level 31 MMOL/L (21-32) Anion Gap 9 mmol/L (5-15) Blood Urea Nitrogen 13 mg/dL (7-18) Creatinine 0.5 MG/DL (0.55-1.30) L Estimat Glomerular Filtration Rate > 60 mL/min (>60) Glucose Level 109 MG/DL (74-106) H Calcium Level 9.6 MG/DL (8.5-10.1) Total Bilirubin 0.4 MG/DL (0.2-1.0) Aspartate Amino Transf (AST/SGOT) 17 U/L (15-37) Alanine Aminotransferase (ALT/SGPT) 17 U/L (12-78) Alkaline Phosphatase 107 U/L (46-116) Troponin I 0.008 ng/mL (0.000-0.056) Total Protein 7.5 G/DL (6.4-8.2) Albumin 4.0 G/DL (3.4-5.0) Globulin 3.5 g/dL Albumin/Globulin Ratio 1.1 (1.0-2.7) Lipase 194 U/L (73-393) Urine Color Pale yellow Urine Appearance Clear Urine pH 8 (4.5-8.0) Urine Specific [place] 1.010 (1.005-1.035) Urine Protein Negative (NEGATIVE) Urine Glucose (UA) Negative (NEGATIVE) Urine Ketones Negative (NEGATIVE) Urine Blood 4+ (NEGATIVE) H Urine Nitrite Negative (NEGATIVE) Urine Bilirubin Negative (NEGATIVE) Urine Urobilinogen Normal MG/DL (0.0-1.0) Urine Leukocyte Esterase 2+ (NEGATIVE) H Urine RBC 2-4 /HPF (0 - 2) H Urine WBC 0-2 /HPF (0 - 2) Urine Squamous Epithelial Cells Occasional /LPF Urine Bacteria Occasional /HPF (NONE) Height (Feet): 5 Height (Inches): 4.00 Weight (Pounds): 173 Medications Current Medications Medications (Trade) Dose Ordered Sig/Wilner Route PRN Reason Start Time Stop Time Status Last Admin Dose Admin Acetaminophen (Tylenol) 650 mg Q4H PRN ORAL Mild Pain (Pain Scale 1-3) 07/17/19 02:00 08/16/19 01:59 07/17/19 12:37 Acetaminophen (Tylenol) 650 mg Q4H PRN ORAL fever 07/17/19 02:00 08/16/19 01:59 Aspirin (ASA) 81 mg DAILY ORAL 07/17/19 09:00 08/16/19 08:59 07/17/19 09:45 Calcium/Vitamin D (OsCal D) 1 tab DAILY ORAL 07/17/19 09:00 08/16/19 08:59 07/17/19 09:46 Dextrose (Dextrose 50%) 25 ml Q30M PRN IV Hypoglycemia 07/17/19 02:00 08/16/19 01:59 Dextrose (Dextrose 50%) 50 ml Q30M PRN IV Hypoglycemia 07/17/19 02:00 08/16/19 01:59 Docusate Sodium (Colace) 100 mg TWICE A DAY ORAL 07/17/19 09:00 08/16/19 08:59 07/17/19 09:46 Enoxaparin Sodium (Lovenox) 40 mg Q24H SUBQ 07/17/19 09:00 08/16/19 08:59 07/17/19 09:48 Escitalopram Oxalate (Lexapro) 20 mg DAILY ORAL 07/17/19 09:00 08/16/19 08:59 07/17/19 09:46 Fluticasone Propionate (Flovent 110 mcg) 1 puff BIDRT INH 07/17/19 10:00 08/16/19 09:59 Hydralazine HCl (Apresoline) 10 mg Q6H PRN ORAL For High Blood Pressure 07/17/19 09:15 08/16/19 09:14 Lactulose (Cephulac) 30 gm BID ORAL 07/17/19 09:00 08/16/19 08:59 07/17/19 09:49 Levalbuterol HCl (Xopenex) 0.63 mg Q6H PRN HHN SOB/Wheezing 07/17/19 06:00 07/22/19 05:59 Lisinopril (PriniviL) 20 mg DAILY ORAL 07/17/19 09:00 08/16/19 08:59 07/17/19 09:45 Magnesium Oxide (Mag-Ox 400mg) 200 mg THREE TIMES A DAY ORAL 07/17/19 09:00 08/16/19 08:59 07/17/19 09:46 Multivitamins (Multivitamins) 1 tab DAILY ORAL 07/17/19 09:00 08/16/19 08:59 07/17/19 09:45 Ondansetron HCl (Zofran) 4 mg Q6H PRN IVP Nausea & Vomiting 07/17/19 03:15 08/16/19 03:14 07/17/19 08:18 Oxycodone HCl (Roxicodone) 5 mg Q6H PRN ORAL Severe Pain 07/17/19 10:45 07/24/19 10:44 07/17/19 11:01 Pantoprazole (Protonix) 40 mg DAILY ORAL 07/17/19 09:00 08/16/19 08:59 07/17/19 09:46 Polyethylene Glycol (Miralax) 17 gm DAILY PRN ORAL Constipation 07/17/19 09:00 08/16/19 08:59 Sennosides (Senokot) 8.6 mg DAILY PRN ORAL Constipation 07/17/19 04:45 08/16/19 04:44 Assessment/Plan Assessment/Plan: 78-year-old female with PMH of COPD, O2 dependent, diastolic heart failure, [facility] with N/V x1. #Nausea/vomiting Admit to telemetry Likely gastroenteritis No leukocytosis, afebrile on admission CT abd unremarkable for GI etiology relieved w/Zofran cont. zofran prn #Right hydronephrosis #Hematuria UA with evidence of blood, leukocyte esterase, RBCs 2-4 CT abdomen revealed severe hydronephrosis of right kidney, nonobstructing, with ureteropelvic junction obstruction and hemorrhagic cyst Obtain renal ultrasound Urology consulted #Depression #Chronic pain #Anxiety disorder #Osteoarthritis Continue Lexapro Continue qhs Mirtazapine. Continue pregabalin 75 mg BID Continue home Dronabinol 2.5 mg BID PT ordered. Continue Clonazepam 0.5 mg BID Continue Oxycodone 5 mg q6h prn #Chronic respiratory failure on NC 2 L O2 #COPD Currently no acute exacerbation Continue O2 2L NC #HTN Cont home meds, lisinopril 20 daily, MTP 23 BID, amlodipine 10 qdaily #GERD cont. PPI DVT PPX - lovenox Time spent on encounter: 36 mins, >50% on counseling, coordination of care, additional 30 mins spent with chart review. Time of note doesn't reflect time of encounter. Morgan Lutz M.D. Jul 17, 2019 13:06
--- NOTE | 2019-07-17 16:28 | Diagnostic Imaging Report ---
Indication:Elevated Bun and Creatinine. Technique: Grayscale and duplex Doppler imaging of the kidneys performed. Comparison: None Findings: There is hydronephrosis of the right kidney moderate in degree. Findings also noted on a recent CT abdomen which suggested UPJ obstruction. A left renal lower pole lesion was seen on CT for which ultrasound was suggested. However the lesion in question is not visualized on the examination. Therefore follow-up CT is recommended.. The right kidney measures 12 cm. in length. The left kidney measures 9.4 cm. in length. The IVC is patent. Urinary bladder is unremarkable. IMPRESSION: Moderate right hydronephrosis. CT performed showed UPJ obstruction. Stones in the right renal pelvis noted on CT and not well appreciated on the current ultrasound. These did not appear obstructive. Left renal lower pole lesion seen on CT thought to possibly represent hemorrhagic cyst is not appreciated on the ultrasound exam. Therefore recommend CT follow-up preferably with contrast material
[2019-07-17] MEDS: Magic Mouth Wash 60ml (Benadryl/Mylanta/Visc Lido) ORAL SCH (17:09)
--- NOTE | 2019-07-17 19:51 | NUR ---
HAND-OFF: Report given to RALF Jaramillo. Patient is on bed, no complaints of pain at this time, plan of care endorsed.
--- NOTE | 2019-07-17 21:00 | NUR ---
NURSE NOTES: Upon assessment, pt noted to have skin breakdown: possible moisture associated skin breakdown, opening under breasts bilaterally, sacral and R inner thigh opening, appears to be stage 2, partial thickness loss, skin very thin, possible previous pressure injury, pictures uploaded
[2019-07-18] VITALS: BP_SYST 144; BP_SYST 160; BP_DIAS 74; BP_DIAS 78
[2019-07-18] MEDS ORDERED: ALPRAZolam 0.25mg tab ORAL SCH (02:45)
[2019-07-18] MEDS ORDERED: TraZODone HCl 25 mg tablet ORAL SCH (02:45)
[2019-07-18 04:00] VITALS: BP_SYST 144; BP_SYST 166; BP_DIAS 74; BP_DIAS 80
[2019-07-18] MEDS: oxyCODONE 5mg IR tab ORAL PRN (07:03)
[2019-07-18 08:00] VITALS: BP 151/76
[2019-07-18 08:08] LABS: EOSINOPHILS % (AUTO) 1.3 % (0.0-3.0); HEMATOCRIT 31.7 % (37.0-47.0); HEMOGLOBIN 10.7 G/DL (12.0-16.0); LYMPHOCYTES % (AUTO) 28.5 % (20.0-45.0); MEAN CORPUSCULAR VOLUME 92 FL (80-99); MONOCYTES % (AUTO) 7.2 % (1.0-10.0); NEUTROPHILS % (AUTO) 62.1 % (45.0-75.0); PLATELET COUNT 232 K/UL (150-450); RED BLOOD COUNT 3.45 M/UL (4.20-5.40); RED CELL DISTRIBUTION WIDTH 11.6 % (11.6-14.8); WHITE BLOOD COUNT 7.7 K/UL (4.8-10.8)
--- NOTE | 2019-07-18 08:10 | NUR ---
HAND-OFF: Report given to RALF Perry.
[2019-07-18 08:25] LABS: ANION GAP 11 mmol/L (5-15); BLOOD UREA NITROGEN 8 mg/dL (7-18); CALCIUM 9.3 MG/DL (8.5-10.1); CARBON DIOXIDE 25 MMOL/L (21-32); CHLORIDE 100 MMOL/L (98-107); CREATININE 0.4 MG/DL (0.55-1.30); POTASSIUM 3.4 MMOL/L (3.5-5.1); SODIUM 136 MMOL/L (136-145)
--- NOTE | 2019-07-18 08:30 | Consultation ---
DATE OF CONSULTATION: 07/17/2019 CONSULTING PHYSICIAN: Genaro Maurice M.D. REFERRING PHYSICIAN: . REASON FOR CONSULTATION: Evaluation of hydronephrosis. HISTORY OF PRESENT ILLNESS: This is a pleasant 78-year-old female that was admitted to the hospital because of nausea and some vomiting. She has had some abdominal pain, which has been mostly epigastric. She had a workup including a CT scan of abdomen and pelvis that showed right-sided hydronephrosis and Urology evaluation has been requested. The patient denies flank pain. She again does have some epigastric pain. She does have some urinary frequency. She has a history of multiple UTIs in the past. She is mostly bed bound. PAST MEDICAL HISTORY: Significant for COPD, coronary artery disease, irritable bowel syndrome. MEDICATIONS: Current medications in the hospital are reviewed. She is currently on oxycodone, Flovent, , Lovenox, , Prinivil, multivitamins, magnesium oxide, Protonix, MiraLAX, Os-Igor, Colace, Lexapro, aspirin, 01:36, Senokot, Zofran, and Tylenol. ALLERGIES: Tetracycline, tomato, and orange. SOCIAL HISTORY: Resident of a prison. FAMILY HISTORY: Noncontributory. REVIEW OF SYSTEMS: As above. PHYSICAL EXAMINATION: GENERAL: She is an elderly female, slightly obese, no acute distress. VITAL SIGNS: Temperature is 97.8, blood pressure is 163/88, pulse is 88, respirations are 20. HEENT: Normocephalic. NECK: Supple. ABDOMEN: Soft. Minimal tenderness in the epigastrium. No CVA tenderness. EXTREMITIES: No clubbing or cyanosis. LABORATORY DATA: UA showed 2 to 4 rbc's, 2+ leukocyte esterase. White count is 8.4, hemoglobin 9.1, platelets are 193,000. BUN is 13, creatinine 0.5. DIAGNOSTIC AND IMAGING STUDIES: The patient had a CT scan of the abdomen and pelvis, and this was a noncontrast study. There was mention of severe hydronephrosis of the right kidney. There was mention of nonobstructive calculi in the right renal pelvis. There were no stones in the ureter and findings were consistent with ureteropelvic junction obstruction. There was also hemorrhagic cyst of the left kidney. I did look at the old films and she did have a renal ultrasound back in 2017, and at that time, there was mention of moderate right-sided hydronephrosis also. IMPRESSION: 1. 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 2. Nonobstructive renal calculi. 3. Hemorrhagic renal cyst. 4. Microhematuria. 5. Abdominal pain. 6. Urinary frequency history. 7. Rule out neurogenic bladder. 8. History of UTIs, mild pyuria. PLAN AND DISCUSSION: Again, as noted above. The patient does have right-sided hydronephrosis, which appears to be second UPJ obstruction, likely chronic. At this time, she has no flank pain and renal function is stable. As such, this can probably be monitored clinically and conservatively given her age. She does have stones that are nonobstructive as well as a hemorrhagic cyst and at this time will be monitored. She has lower urinary tract symptoms neurogenic bladder, this will be monitored. She has microhematuria, presumably secondary to the stones. At some point, electively, she would need some cystoscopy to evaluate the bladder as well. This was discussed with the patient and her sister. Thank you for this consultation. Genaro Maurice M.D. DR: MILES JOB#: [id number] CC:
[2019-07-18] MEDS: Enoxaparin 40mg Inj SUBQ SCH ×2 (09:00→10:06)
[2019-07-18] MEDS: Lactulose 20gm/30ml UDC ORAL SCH ×3 (09:00→18:00)
[2019-07-18] MEDS: Magnesium Oxide 400mg tab ORAL SCH ×3 (10:02→19:25)
[2019-07-18] MEDS: Aspirin Baby 81mg ORAL SCH (10:03)
[2019-07-18] MEDS: Lisinopril 20mg tab ORAL SCH (10:03)
[2019-07-18] MEDS: Docusate 100mg cap ORAL SCH ×2 (10:04→19:26)
[2019-07-18] MEDS: Hydromorphone 0.5mg/0.5ml inj IVP PRN ×3 (10:06→21:07)
[2019-07-18] MEDS: Magic Mouth Wash 60ml (Benadryl/Mylanta/Visc Lido) ORAL SCH ×2 (10:07→19:26)
[2019-07-18] MEDS: Calcium Carbonate 500mg w/Vit D 200iu tab ORAL SCH (10:08)
--- NOTE | 2019-07-18 11:00 | NUR ---
PT EVALUATION NOTE Patient seen for initial evaluation. Patient presents with generalized weakness and pain with movement which impairs patient's ability to perform mobility tasks safely. Patient requires max assist of 2 people to roll in bed and was unable to come to sitting at EOB due to pain with movement. Patient will benefit from skilled inpatient PT intervention to address strength, balance and safety for increased movement with bed mobility and transfer skills. Will coordinate with nursing to pre-medicate patient prior to treatment. Recommend discharge to SNF once medically cleared by MD. Addendum: 07/18/19 at 1135 by DALE NAVAS PT Amended: Links added.
[2019-07-18] MEDS: Flovent 110mcg Inhaler - 12gm INH SCH ×2 (11:41→20:11)
--- NOTE | 2019-07-18 11:49 | GI Initial Consult Note ---
History of Present Illness General Date patient seen: Jul 18, 2019 Time patient seen: 11:30 Reason for Hospitalization: Nausea Referring physician: MATT Reason for Consultation: SBO Present Illness HPI 78-year-old female with PMH of COPD, O2 dependent, diastolic heart failure, h/o multiple UTIs, mostly bed bound, came in from [facility] for abdominal pain with N/V x1. Patient denies any F/C, dysuria, diarrhea/constipation at this time. In the ED, CT abdomen was obtained which revealed severe hydronephrosis of right kidney, nonobstructing, UV pelvic junction obstruction, with hemorrhagic cyst. Patient currently denies any dysuria, hematuria at this time. Patient denies GAMEZ, vision changes, CP, SOB, or neurological changes. Patient admitted for further treatment and evaluation. GI consulted for reported abdominal pain possible small bowel obstruction. Patient seen, awake alert oriented x4 no apparent distress. According to the patient, she has complaint of severe abdominal pain, nausea with decreased p.o. intake. Patient's abdomen is soft, nontender, mild to moderate distention tympanic in all quadrants, no rebounding or guarding noted, no peritoneal signs noted. The patient recently taken an laxative in which she had a bowel movement earlier today. Abdominal pelvis CT noted that there was interposition of large bowel loops anterior to the liver. There is moderate quantity of stool throughout the colon. There is no evidence of any bowel obstruction. The rectum was mildly distended with air and stool. The patient has history of endoscopy and colonoscopy back in February 2019 noted with gastritis and colonic polyps. Procedures Performed: EGD, colonoscopy Operative Findings/Diagnosis: gastritis, colon polyp Kapil Arshad MD, Feb 11, 2019 10:59 Home Meds Active Scripts Lidocaine HCl 2% Viscous (Lidocaine HCl 2% Viscous) 100 Ml Solution, 5 ML ORAL Q4H PRN for 10 Days, #100 ML Prov:Philipp Moreau M.D. 06/13/19 Furosemide* (LASIX*) 20 Mg Tablet, 20 MG ORAL DAILY for 10 Days, #10 TAB Prov:Philipp Moreau M.D. 06/13/19 Potassium Chloride (K-Tab ER) 20 Meq Tablet.er, 20 MEQ ORAL DAILY for 10 Days, # 10 TAB Prov:Philipp Moreau M.D. 2/3/20 Zinc Sulfate (ZINC SULFATE*) 220 Mg Capsule, 220 MG ORAL DAILY for 30 Days, #30 CAP Prov:Philipp Moreau M.D. 04/12/19 Mirtazapine* (MIRTAZAPINE*) 15 Mg Tablet, 7.5 MG ORAL BEDTIME for 30 Days, #30 TAB Prov:Philipp Moreau M.D. 04/12/19 Metoprolol Tartrate (Metoprolol Tartrate) 25 Mg Tablet, 25 MG ORAL Q12HR for 30 Days, #60 TAB Prov:Philipp Moreau M.D. 04/12/19 Methocarbamol* (ROBAXIN-500*) 500 Mg Tablet, 500 MG ORAL Q6H PRN for 30 Days, # 30 TAB Prov:Philipp Moreau M.D. 04/12/19 Dronabinol* (MARINOL*) 2.5 Mg Capsule, 2.5 MG ORAL BID for 30 Days, #60 CAP Prov:Philipp Moreau M.D. 04/12/19 Clonazepam* (KLONOPIN*) 0.5 Mg Tablet, 0.5 MG ORAL BID for 30 Days, #60 TAB Prov:Philipp Moreau M.D. 04/12/19 Ascorbic Acid* (ASCORBIC ACID*) 500 Mg Tablet, 250 MG ORAL DAILY for 30 Days, # 30 TAB Prov:Philipp Moreau M.D. 04/12/19 Reported Medications Sennosides (SENNA LAXATIVE) 8.6 Mg Tablet, 8.6 MG PO QHS for CONSTIPATION, TAB 06/10/19 Polyethylene Glycol 3350* (MIRALAX*) 17 Gm Powd.pack, 17 GM ORAL DAILY for CONSTIPATION, PACKET 06/10/19 Lactulose (LACTULOSE*) 20 Gm/30 Ml Solution, 30 ML ORAL DAILY for CONSTIPATION, ML 0 Refills 06/10/19 Oxycodone/Acetaminophen (Oxycodone-Acetaminophen 5-325) 1 Each Tablet, 1 TAB ORAL Q6H PRN for For Pain, #10 TAB 0 Refills 06/10/19 Pregabalin* (LYRICA*) 75 Mg Capsule, 75 MG ORAL TWICE A DAY for NERVE PAIN, CAP 06/10/19 Ipratropium [place] (ATROVENT HFA) 12.9 Gm Hfa.aer.ad, 1 UNIT HHN Q6HR PRN for SOB/WHEEZING ATROVENT 0.02% SOLUTION, INHALED VIA NEBULIZER 04/01/19 Levalbuterol Hcl (XOPENEX*) 0.63 Mg/3 Ml Vial.neb, 0.63 MG HHN Q6H PRN for SOB/ WHEEZING, VIAL 04/01/19 Lisinopril (LISINOPRIL*) 20 Mg Tablet, 20 MG ORAL DAILY for HYPERTENSION, TAB HOLD FOR SBP<110 04/01/19 Dextromethorphan Hb/Doxylamine (Robitussin Nighttime Cough Dm) 237 Ml Liquid, 20 ML PO Q8HR PRN for For Cough, ML 03/31/19 Benzonatate* (TESSALON PERLE*) 100 Mg Capsule, 100 MG ORAL THREE TIMES A DAY PRN for For Cough, PERLE 03/31/19 Calcium Carbonate/Vitamin D3 (OYSCO 500+D TABLET) 1 Each Tablet, 1 EACH PO DAILY , TAB 03/31/19 Magnesium (MAGNESIUM) 200 Mg Tablet, 200 MG PO QD, TAB 03/31/19 Na Phos,M-B/Na Phos,Di-Ba* (FLEET ENEMA*) 133 Ml Enema, 133 ML RECTAL DAILY PRN for IF MOM OR DULCOLAX INEFFECTIVE, ML 0 Refills 03/30/19 Escitalopram Oxalate* (LEXAPRO*) 20 Mg Tablet, 20 MG ORAL DAILY, TAB 03/30/19 Aspirin* (ASPIRIN*) 81 Mg Tab.chew, 81 MG ORAL DAILY, TAB 03/30/19 Dicyclomine Hcl* (DICYCLOMINE HCL*) 10 Mg Capsule, 10 MG ORAL QID PRN for ABDOMINAL PAIN, #20 CAP 02/10/19 Fluticasone Propionate (Flovent Hfa) 12 Gm Aer.w.adap, 2 PUFFS INH DAILY, #1 EA 0 Refills 02/10/19 Acetylcysteine* (ACETYLCYSTEINE*) 200 Mg/1 Ml Vial, 200 MG HHN Q4HR PRN for CONGESTION, VIAL 02/10/19 Multivitamin (Multivitamins) 1 Each Tablet, 1 EACH PO QD, TAB 02/10/19 Amlodipine Besylate* (AMLODIPINE BESYLATE*) 10 Mg Tablet, 10 MG ORAL DAILY, TAB HOLD FOR SBP<110, HR<60 01/12/19 Rosuvastatin Calcium* (CRESTOR*) 20 Mg Tablet, 20 MG ORAL DAILY, TAB 01/12/19 Ondansetron* (ZOFRAN*) 4 Mg Tablet, 4 MG ORAL Q4HR PRN for Nausea & Vomiting, TAB 01/12/19 Acetaminophen* (ACETAMINOPHEN 325MG TABLET*) 325 Mg Tablet, 650 MG ORAL Q4H PRN for Mild Pain (Pain Scale 1-3), TAB 01/12/19 Bisacodyl (DULCOLAX) 10 Mg Supp.rect, 10 MG RC PRN PRN for Constipation, SUPP 01/12/19 [Bevespi Aerosphere ] 9MCG/4.8MCG PUFFS No Conflict Check, 2 PUFFS INH BID 01/12/19 Pantoprazole* (PROTONIX*) 40 Mg Tablet.dr, 40 MG ORAL DAILY, TAB 01/12/19 Montelukast Sodium* (MONTELUKAST SODIUM*) 10 Mg Tablet, 10 MG ORAL DAILY, TAB 01/13/18 Docusate Sodium* (COLACE*) 100 Mg Capsule, 100 MG ORAL BID, CAP 07/24/14 Discontinued Reported Medications Ferrous Sulfate* (FERROUS SULFATE*) 325 Mg Tablet, 325 MG ORAL DAILY, #30 TAB 0 Refills 01/13/18 Med list reviewed/reconciled: Yes Allergies: Coded Allergies: [place] (Unverified Allergy, Mild, upset stomach, 02/10/19) TOMATO (Unverified Allergy, Mild, upset stomach, 02/10/19) TETRACYCLINE (Unverified Allergy, Unknown, 07/24/14) Patient History History Provided By: Patient, Medical Record PMH Narrative PMH: COPD, O2 dependent, diastolic heart failure, IBS FH: Reviewed and not pertinent Allergies: Tetracycline Review of Systems All Other Systems: negative except mentioned in HPI Physical Exam Vital Signs Date Time Temp Pulse Resp B/P (MAP) Pulse Ox O2 Delivery O2 Flow Rate FiO2 07/16/19 23:38 98.4 90 16 153/86 (108) 95 Simple Mask 2.0 07/17/19 07:37 28 Sp02 EP Interpretation: reviewed, normal Labs Laboratory Tests Test 07/18/19 07:37 White Blood Count 7.7 K/UL (4.8-10.8) Red Blood Count 3.45 M/UL (4.20-5.40) L Hemoglobin 10.7 G/DL (12.0-16.0) L Hematocrit 31.7 % (37.0-47.0) L Mean Corpuscular Volume 92 FL (80-99) Mean Corpuscular Hemoglobin 30.9 PG (27.0-31.0) Mean Corpuscular Hemoglobin Concent 33.6 G/DL (32.0-36.0) Red Cell Distribution Width 11.6 % (11.6-14.8) Platelet Count 232 K/UL (150-450) Mean Platelet Volume 5.6 FL (6.5-10.1) L Neutrophils (%) (Auto) 62.1 % (45.0-75.0) Lymphocytes (%) (Auto) 28.5 % (20.0-45.0) Monocytes (%) (Auto) 7.2 % (1.0-10.0) Eosinophils (%) (Auto) 1.3 % (0.0-3.0) Basophils (%) (Auto) 1.0 % (0.0-2.0) Sodium Level 136 MMOL/L (136-145) Potassium Level 3.4 MMOL/L (3.5-5.1) L Chloride Level 100 MMOL/L (98-107) Carbon Dioxide Level 25 MMOL/L (21-32) Anion Gap 11 mmol/L (5-15) Blood Urea Nitrogen 8 mg/dL (7-18) Creatinine 0.4 MG/DL (0.55-1.30) L Estimat Glomerular Filtration Rate > 60 mL/min (>60) Glucose Level 106 MG/DL (74-106) Calcium Level 9.3 MG/DL (8.5-10.1) General Appearance: well appearing, no apparent distress, alert Head: normocephalic EENT: PERRL/EOMI, normal ENT inspection Neck: supple Respiratory: normal breath sounds, no respiratory distress Cardiovascular: normal rate Gastrointestinal: normal inspection, non tender, soft, normal bowel sounds, non -distended Rectal: deferred Genitourinary: no CVA tenderness Neurologic: alert, oriented x3, responsive, normal inspection Psychiatric: normal inspection, judgement/insight normal, memory normal Skin: normal inspection, normal color, no rash, warm/dry, palpation normal, well hydrated Lymphatic: normal inspection, no adenopathy Current Medications Current Medications Medications (Trade) Dose Ordered Sig/Wilner Route PRN Reason Start Time Stop Time Status Last Admin Dose Admin Acetaminophen (Tylenol) 650 mg Q4H PRN ORAL Mild Pain (Pain Scale 1-3) 07/17/19 02:00 08/16/19 01:59 07/17/19 12:37 Acetaminophen (Tylenol) 650 mg Q4H PRN ORAL fever 07/17/19 02:00 08/16/19 01:59 Aspirin (ASA) 81 mg DAILY ORAL 07/17/19 09:00 08/16/19 08:59 07/18/19 10:03 Calcium/Vitamin D (OsCal D) 1 tab DAILY ORAL 07/17/19 09:00 08/16/19 08:59 07/18/19 10:08 Dextrose (Dextrose 50%) 25 ml Q30M PRN IV Hypoglycemia 07/17/19 02:00 08/16/19 01:59 Dextrose (Dextrose 50%) 50 ml Q30M PRN IV Hypoglycemia 07/17/19 02:00 08/16/19 01:59 Docusate Sodium (Colace) 100 mg TWICE A DAY ORAL 07/17/19 09:00 08/16/19 08:59 07/18/19 10:04 Enoxaparin Sodium (Lovenox) 40 mg Q24H SUBQ 07/17/19 09:00 08/16/19 08:59 07/17/19 09:48 Escitalopram Oxalate (Lexapro) 20 mg DAILY ORAL 07/17/19 09:00 08/16/19 08:59 07/18/19 10:04 Fluticasone Propionate (Flovent 110 mcg) 1 puff BIDRT INH 07/17/19 10:00 08/16/19 09:59 07/17/19 21:29 Hydralazine HCl (Apresoline) 10 mg Q6H PRN ORAL For High Blood Pressure 07/17/19 09:15 08/16/19 09:14 Hydromorphone HCl (Dilaudid) 0.5 mg Q4H PRN IVP Severe Pain (Pain Scale 7-10) 07/18/19 09:30 07/25/19 09:29 07/18/19 10:06 Lactulose (Cephulac) 30 gm BID ORAL 07/17/19 09:00 08/16/19 08:59 07/17/19 17:04 Levalbuterol HCl (Xopenex) 0.63 mg Q6H PRN HHN SOB/Wheezing 07/17/19 06:00 07/22/19 05:59 07/18/19 01:48 Lisinopril (PriniviL) 20 mg DAILY ORAL 07/17/19 09:00 08/16/19 08:59 07/18/19 10:03 Magnesium Oxide (Mag-Ox 400mg) 200 mg THREE TIMES A DAY ORAL 07/17/19 09:00 08/16/19 08:59 07/18/19 10:02 Multivitamins (Multivitamins) 1 tab DAILY ORAL 07/17/19 09:00 08/16/19 08:59 07/18/19 10:04 Ondansetron HCl (Zofran) 4 mg Q6H PRN IVP Nausea & Vomiting 07/17/19 03:15 08/16/19 03:14 07/18/19 03:07 Oxycodone HCl (Roxicodone) 5 mg Q6H PRN ORAL Severe Pain 07/17/19 10:45 07/24/19 10:44 07/18/19 07:03 Pantoprazole (Protonix) 40 mg DAILY ORAL 07/17/19 09:00 08/16/19 08:59 07/18/19 10:04 Polyethylene Glycol (Miralax) 17 gm DAILY PRN ORAL Constipation 07/17/19 09:00 08/16/19 08:59 Sennosides (Senokot) 8.6 mg DAILY PRN ORAL Constipation 07/17/19 04:45 08/16/19 04:44 GI: Plan Problems: (1) Therapeutic opioid-induced constipation (OIC) (2) Lumbar spondylosis (3) GERD (gastroesophageal reflux disease) (4) Abdominal pain (5) Anemia (6) Constipation Plan Abdominal pelvis CT reviewed, no small bowel obstruction. Moderate filled colon with stool and air. Endoscopy and colonoscopy in February 2019 noted with gastritis and colonic polyps. No plan for any GI procedures at this time given recent history of procedure. Will treat for constipation lactulose + colace dulcolax OR x1 zofran prn, compazine for persistent nausea. Reglan has drug to drug interaction. anemia work up OB stool r/o GI bleed monitor H&H, prn transfusions Will need outpatient follow-up to manage constipation Discussed with Dr. Arshad. Thank you for this patient referral, we will follow. The patient was seen and examined at bedside and all new and available data was reviewed in the patients chart. I agree with the above findings, impression and plan. (Patient seen earlier today. Signature stamp does not reflect patient encounter time.). - MD Nina Gomez AnhThu HAM STRINGER Jul 18, 2019 11:49
[2019-07-18 12:00] VITALS: BP 140/75
[2019-07-18] MEDS ORDERED: ADVANCED ANTAC355 ML ORAL (13:03)
[2019-07-18] MEDS ORDERED: OXYCODONE HCL5 M2 ORAL (13:03)
[2019-07-18] MEDS ORDERED: FERROUS SULFAT325 MG ORAL (13:03)
[2019-07-18] MEDS ORDERED: ASCORBIC ACID500 MG ORAL (13:08)
[2019-07-18] MEDS ORDERED: FLONASE ALLERG9.9 ML NS (13:08)
[2019-07-18] MEDS ORDERED: MIRTAZAPINE7.5 MG ORAL (13:09)
--- NOTE | 2019-07-18 14:00 | NUR ---
NURSE NOTES: Bowel sounds present, still keeps complaining about pain. Repositioned for comfort.
--- NOTE | 2019-07-18 14:08 | Urology Progress Note ---
Assessment/Plan Assessment/Plan: 1. 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 2. Nonobstructive renal calculi. 3. Hemorrhagic renal cyst. 4. Microhematuria. 5. Abdominal pain. 6. Urinary frequency history. 7. Rule out neurogenic bladder. 8. History of UTIs, mild pyuria. monitor clinically abdominal pain prob not related GI w/u abx PRN Subjective Allergies: Coded Allergies: [place] (Unverified Allergy, Mild, upset stomach, 02/10/19) TOMATO (Unverified Allergy, Mild, upset stomach, 02/10/19) TETRACYCLINE (Unverified Allergy, Unknown, 07/24/14) Subjective all noted, feels fair, still with epigastric pain Objective Last 24 Hour Vital Signs Date Time Temp Pulse Resp B/P (MAP) Pulse Ox O2 Delivery O2 Flow Rate FiO2 07/18/19 12:00 84 07/18/19 12:00 99.1 78 20 140/75 (96) 100 07/18/19 11:41 84 20 99 Nasal Cannula 2.0 28 07/18/19 11:41 84 18 99 Nasal Cannula 2.0 28 07/18/19 10:03 150/76 07/18/19 08:00 70 07/18/19 08:00 97.7 88 20 151/76 (101) 100 07/18/19 04:00 97.5 60 18 166/80 (108) 97 07/18/19 04:00 99.0 74 19 144/74 (97) 98 07/18/19 04:00 2.0 07/18/19 04:00 96 07/18/19 02:00 2.0 07/18/19 01:58 114 22 99 Nasal Cannula 2.0 28 07/18/19 01:48 115 22 97 Nasal Cannula 2.0 28 07/18/19 00:00 73 07/18/19 00:00 98.2 88 18 160/78 (105) 96 07/18/19 00:00 2.0 07/18/19 00:00 99.0 74 19 144/74 (97) 98 07/17/19 21:32 85 20 96 Nasal Cannula 2.0 28 07/17/19 21:29 85 20 96 Nasal Cannula 2.0 28 07/17/19 21:01 Nasal Cannula 2.0 07/17/19 21:00 Nasal Cannula 2.0 07/17/19 21:00 98.1 81 18 160/90 (113) 94 07/17/19 20:00 2.0 07/17/19 20:00 80 07/17/19 19:55 98 Nasal Cannula 2.0 28 07/17/19 16:00 75 07/17/19 16:00 99.0 74 19 144/74 (97) 98 07/17/19 16:00 2.0 07/17/19 15:12 2.0 28 07/17/19 15:11 2.0 28 Intake and Output 07/17/19 07/18/19 19:00 07:00 Intake Total 200 ml Output Total 300 ml Balance -100 ml Intake Oral 200 ml Output Urine Total 300 ml # Voids 2 Current Medications Medications (Trade) Dose Ordered Sig/Wilner Route PRN Reason Start Time Stop Time Status Last Admin Dose Admin Acetaminophen (Tylenol) 650 mg Q4H PRN ORAL Mild Pain (Pain Scale 1-3) 07/17/19 02:00 08/16/19 01:59 07/17/19 12:37 Acetaminophen (Tylenol) 650 mg Q4H PRN ORAL fever 07/17/19 02:00 08/16/19 01:59 Aspirin (ASA) 81 mg DAILY ORAL 07/17/19 09:00 08/16/19 08:59 07/18/19 10:03 Calcium/Vitamin D (OsCal D) 1 tab DAILY ORAL 07/17/19 09:00 08/16/19 08:59 07/18/19 10:08 Dextrose (Dextrose 50%) 25 ml Q30M PRN IV Hypoglycemia 07/17/19 02:00 08/16/19 01:59 Dextrose (Dextrose 50%) 50 ml Q30M PRN IV Hypoglycemia 07/17/19 02:00 08/16/19 01:59 Docusate Sodium (Colace) 100 mg TWICE A DAY ORAL 07/17/19 09:00 08/16/19 08:59 07/18/19 10:04 Enoxaparin Sodium (Lovenox) 40 mg Q24H SUBQ 07/17/19 09:00 08/16/19 08:59 07/17/19 09:48 Escitalopram Oxalate (Lexapro) 20 mg DAILY ORAL 07/17/19 09:00 08/16/19 08:59 07/18/19 10:04 Fluticasone Propionate (Flovent 110 mcg) 1 puff BIDRT INH 07/17/19 10:00 08/16/19 09:59 07/18/19 11:41 Hydralazine HCl (Apresoline) 10 mg Q6H PRN ORAL For High Blood Pressure 07/17/19 09:15 08/16/19 09:14 Hydromorphone HCl (Dilaudid) 0.5 mg Q4H PRN IVP Severe Pain (Pain Scale 7-10) 07/18/19 09:30 07/25/19 09:29 07/18/19 14:06 Lactulose (Cephulac) 30 gm BID ORAL 07/17/19 09:00 08/16/19 08:59 07/17/19 17:04 Levalbuterol HCl (Xopenex) 0.63 mg Q6H PRN HHN SOB/Wheezing 07/17/19 06:00 07/22/19 05:59 07/18/19 01:48 Lisinopril (PriniviL) 20 mg DAILY ORAL 07/17/19 09:00 08/16/19 08:59 07/18/19 10:03 Magnesium Oxide (Mag-Ox 400mg) 200 mg THREE TIMES A DAY ORAL 07/17/19 09:00 08/16/19 08:59 07/18/19 10:02 Multivitamins (Multivitamins) 1 tab DAILY ORAL 07/17/19 09:00 08/16/19 08:59 07/18/19 10:04 Ondansetron HCl (Zofran) 4 mg Q6H PRN IVP Nausea & Vomiting 07/17/19 03:15 08/16/19 03:14 07/18/19 03:07 Oxycodone HCl (Roxicodone) 5 mg Q6H PRN ORAL Severe Pain 07/17/19 10:45 07/24/19 10:44 07/18/19 07:03 Pantoprazole (Protonix) 40 mg DAILY ORAL 07/17/19 09:00 08/16/19 08:59 07/18/19 10:04 Polyethylene Glycol (Miralax) 17 gm DAILY PRN ORAL Constipation 07/17/19 09:00 08/16/19 08:59 Sennosides (Senokot) 8.6 mg DAILY PRN ORAL Constipation 07/17/19 04:45 08/16/19 04:44 Laboratory Tests 07/18/19 07:37: White Blood Count 7.7, Red Blood Count 3.45L, Hemoglobin 10.7L, Hematocrit 31.7L , Mean Corpuscular Volume 92, Mean Corpuscular Hemoglobin 30.9, Mean Corpuscular Hemoglobin Concent 33.6, Red Cell Distribution Width 11.6, Platelet Count 232, Mean Platelet Volume 5.6L, Neutrophils (%) (Auto) 62.1, Lymphocytes ( %) (Auto) 28.5, Monocytes (%) (Auto) 7.2, Eosinophils (%) (Auto) 1.3, Basophils (%) (Auto) 1.0, Sodium Level 136, Potassium Level 3.4L, Chloride Level 100, Carbon Dioxide Level 25, Anion Gap 11, Blood Urea Nitrogen 8, Creatinine 0.4L, Estimat Glomerular Filtration Rate > 60, Glucose Level 106, Calcium Level 9.3 Height (Feet): 5 Height (Inches): 4.00 Weight (Pounds): 173 Objective exam stable Genaro Muarice MD Jul 18, 2019 14:08
--- NOTE | 2019-07-18 14:49 | General Progress Note ---
Assessment/Plan Assessment/Plan: 78-year-old female with PMH of COPD, O2 dependent, diastolic heart failure, came in from [facility] for abdominal pain with N/V x1. #Nausea/vomiting #Abdominal pain #Constipation Admit to telemetry Likely gastroenteritis No leukocytosis, afebrile on admission CT abd unremarkable for GI etiology check CTA A/P Dilaudid IV for severe pain cont. zofran prn #Right hydronephrosis #Left hemorrhagic renal cyst #Nephrolithiasis #Hematuria UA with evidence of blood, leukocyte esterase, RBCs 2-4 CT abdomen revealed severe hydronephrosis of right kidney, nonobstructing, with ureteropelvic junction obstruction and hemorrhagic cyst Renal US reviewed Urology consult appreciated, no acute interventions at this time #Depression #Chronic pain #Anxiety disorder #Osteoarthritis Continue Lexapro Continue qhs Mirtazapine. Continue pregabalin 75 mg BID Continue home Dronabinol 2.5 mg BID PT ordered. Continue Clonazepam 0.5 mg BID Continue Oxycodone 5 mg q6h prn Psychiatry consulted, Dr. Stern #Chronic respiratory failure on NC 2 L O2 #COPD Currently no acute exacerbation Continue O2 2L NC #HTN Cont home meds, lisinopril 20 daily, MTP 23 BID, amlodipine 10 qdaily #GERD cont. PPI DVT PPX - lovenox Time spent on encounter: 38 mins, >50% on counseling, coordination of care, additional 30 mins spent with chart review. I spent an additional 35 minutes for chart reviewed which includes prior medical records, consult noted, imaging reports. Time of note doesn't reflect time of encounter. Subjective Date patient seen: Jul 18, 2019 Time patient seen: 08:37 Constitutional: Denies: chills, fever Cardiovascular: Denies: chest pain, edema Respiratory: Denies: cough, orthopnea Gastrointestinal/Abdominal: Reports: abdominal pain; Denies: abdomen distended , black stools, tarry stools, blood in stool Genitourinary: Denies: burning Neurologic/Psychiatric: Denies: anxiety Allergies: Coded Allergies: [place] (Unverified Allergy, Mild, upset stomach, 02/10/19) TOMATO (Unverified Allergy, Mild, upset stomach, 02/10/19) TETRACYCLINE (Unverified Allergy, Unknown, 07/24/14) Subjective Follow up for abdominal pain, hydronephrosis, nephrolithiasis, constipation Persist left sided abdominal pain, minimal relief with oral pain regimen. Objective Last 24 Hour Vital Signs Date Time Temp Pulse Resp B/P (MAP) Pulse Ox O2 Delivery O2 Flow Rate FiO2 07/18/19 12:00 84 07/18/19 12:00 99.1 78 20 140/75 (96) 100 07/18/19 11:41 84 20 99 Nasal Cannula 2.0 28 07/18/19 11:41 84 18 99 Nasal Cannula 2.0 28 07/18/19 10:03 150/76 07/18/19 08:00 70 07/18/19 08:00 97.7 88 20 151/76 (101) 100 07/18/19 04:00 97.5 60 18 166/80 (108) 97 07/18/19 04:00 99.0 74 19 144/74 (97) 98 07/18/19 04:00 2.0 07/18/19 04:00 96 07/18/19 02:00 2.0 07/18/19 01:58 114 22 99 Nasal Cannula 2.0 28 07/18/19 01:48 115 22 97 Nasal Cannula 2.0 28 07/18/19 00:00 73 07/18/19 00:00 98.2 88 18 160/78 (105) 96 07/18/19 00:00 2.0 07/18/19 00:00 99.0 74 19 144/74 (97) 98 07/17/19 21:32 85 20 96 Nasal Cannula 2.0 28 07/17/19 21:29 85 20 96 Nasal Cannula 2.0 28 07/17/19 21:01 Nasal Cannula 2.0 07/17/19 21:00 Nasal Cannula 2.0 07/17/19 21:00 98.1 81 18 160/90 (113) 94 07/17/19 20:00 2.0 07/17/19 20:00 80 07/17/19 19:55 98 Nasal Cannula 2.0 28 07/17/19 16:00 75 07/17/19 16:00 99.0 74 19 144/74 (97) 98 07/17/19 16:00 2.0 07/17/19 15:12 2.0 28 07/17/19 15:11 2.0 28 Intake and Output 07/17/19 07/18/19 19:00 07:00 Intake Total 200 ml Output Total 300 ml Balance -100 ml Intake Oral 200 ml Output Urine Total 300 ml # Voids 2 Laboratory Tests 07/18/19 07:37: White Blood Count 7.7, Red Blood Count 3.45L, Hemoglobin 10.7L, Hematocrit 31.7L , Mean Corpuscular Volume 92, Mean Corpuscular Hemoglobin 30.9, Mean Corpuscular Hemoglobin Concent 33.6, Red Cell Distribution Width 11.6, Platelet Count 232, Mean Platelet Volume 5.6L, Neutrophils (%) (Auto) 62.1, Lymphocytes ( %) (Auto) 28.5, Monocytes (%) (Auto) 7.2, Eosinophils (%) (Auto) 1.3, Basophils (%) (Auto) 1.0, Sodium Level 136, Potassium Level 3.4L, Chloride Level 100, Carbon Dioxide Level 25, Anion Gap 11, Blood Urea Nitrogen 8, Creatinine 0.4L, Estimat Glomerular Filtration Rate > 60, Glucose Level 106, Calcium Level 9.3 Height (Feet): 5 Height (Inches): 4.00 Weight (Pounds): 173 General Appearance: no apparent distress, alert EENT: PERRL/EOMI, normal ENT inspection Neck: normal alignment, supple Cardiovascular: normal rate, regular rhythm Respiratory/Chest: lungs clear, normal breath sounds Abdomen: normal bowel sounds, non tender, soft 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
--- NOTE | 2019-07-18 14:56 | NUR ---
NURSE NOTES: Medicated for vomiting per order. Complains of pain Dilaudid is given per order.
--- NOTE | 2019-07-18 15:30 | NUR ---
CASE MANAGEMENT:REVIEW 78 YR OLD FEMALE BIBA FROM [facility] CC: NAUSEA AND LLQ ABD PAIN SI: ABDOMINAL PAIN. CHF. COPD 98.5 90 16 153/86 95% ON 2L/NC H/H-11.1/32.9 IS: IV TORADOL ASA PO PEPCID PO XANAX PO CT ABD/PELVIS : TO TELEMETRY IS: IV DILAUDID Q4HRS PRN OXYCODONE PO Q6HRS PRN
--- NOTE | 2019-07-18 15:50 | Diagnostic Imaging Report ---
Indication: Abdominal Pain. anemia constipation Technique: Continuous helical transaxial imaging of the abdomen and pelvis was obtained from the lung base to the pubic symphysis during rapid intravenous contrast administration. Arterial phase of enhancement obtained. Coronal 2-D reformats were also obtained and maximum intensity projection images in multiple planes. Study obtained in a Siemens sensation [address] Total Dose length Product (DLP): 274.[address] Dose Index Volume (CTDIvol): 62.9 mGy Comparison: Noncontrast CT 07/17/2019 Findings: Vascular findings: There is tortuosity and moderate mural calcification within the aorta and iliac arteries. Portions of the abdominal aorta showing mild fusiform dilatation without definite aneurysm. The celiac artery, SMA and single bilateral renal arteries show no evidence of high-grade stenosis or occlusion. There is moderate atherosclerotic disease with mural calcium present throughout. The KOFI is also patent but due to its small size difficult to evaluate the origin or for stenosis. There is calcification at the origin of the KOFI. The common iliac, external iliac and internal iliac arteries moderately diseased but showing no definite high-grade stenosis. Similarly the common femoral arteries show moderate arterial vascular calcification but the no high-grade stenosis. Nonvascular findings: Similar to the precontrast CT performed 07/17/2019, there is moderate dilatation of the right renal pelvis demonstrated. There is a transition to normal caliber ureter at the UPJ. There is sediment in the stones present within the dependent portion of the dilated right renal pelvis. These are nonobstructive. Both kidneys appear to enhance symmetrically during the single phase of arterial enhancement. The presence of symmetric enhancement of the kidneys suggest there is no functional obstruction associated with the dilated right renal pelvis. Consider follow-up renal scan as this may be helpful to provide more quantitative assessment of differential renal function and whether the dilated renal pelvis and UPJ transition is functionally obstructive. There are multiple uterine fibroids with calcification. Overall the uterus measures 10 x 9 x 8 cm. Urinary bladder is unremarkable. There are multiple diverticula in the colon. Appendix is normal. There is no evidence of bowel obstruction. There is no free fluid. The liver is low in attenuation consistent with fatty infiltration. There are a few areas of nodular enhancement in the right lobe, nonspecific. The spleen is normal size. Gallbladder is unremarkable. Biliary ducts are mildly prominent. There is a severe scoliosis of the thoracolumbar spine convex to the left. There is narrowing of intervertebral discs and accompanying endplate osteophyte formation. Hypertrophied facet joints also demonstrated. Bones are osteopenic. Mild streaky densities at the lung bases likely represent scarring or atelectasis. IMPRESSION: Atherosclerotic vascular disease. No aneurysm of aorta, high-grade stenosis or occlusion of the aortoiliac vessels or major branches. Chronic right UPJ obstruction and dilatation. This may not be functionally significant. Consider follow-up nuclear medicine renal scan for quantitative evaluation of renal function and obstruction, if present at all. Stones in the dependent portion of the dilated right renal pelvis, nonobstructive. Multiple uterine fibroids. Prominence of the biliary ducts may be normal for age. Colonic diverticulosis. Fatty liver Areas of nodular hyperenhancement within the liver nonspecific. Consider follow-up ultrasound or triphasic CT. Severe levoscoliosis of the lumbar spine. Basilar scarring versus atelectasis The CT scanner at [facility] is accredited by the [employer] and the scans are performed using dose optimization techniques as appropriate to a performed exam including Automatic Exposure control.
[2019-07-18 16:00] VITALS: BP 148/79
--- NOTE | 2019-07-18 16:22 | NUR ---
NURSE NOTES: Pt. refusing to drink fluids. Left a message to Dr. Gama. Waiting for a call back.
--- NOTE | 2019-07-18 17:22 | NUR ---
NURSE NOTES:WOUND CARE NOTES:Pt presented on admission with erythema, moisture Intertrigo bilat breasts folds. Non-blanchable erythema without induration buttocks. Pt denied tenderness when palpated. Both heels are soft but easily blanchable. No other Skin concerns noted. Recommendations:Apply Light dusting of Phytoplex Antifungal powder to both breasts Twice Daily. (Please confirm with PCP). Apply Moisture Barrier Paste to Sacrum. Cover with Optifoam drsg. Change every 3 days and prn. Apply Cavilon Skin Barrier to Both heels. Cover each heel with Optifoam drsg. Change every 7 days and prn. Reposition at least every 2hours or as tolerated. Off-load heels with Pillow.
--- NOTE | 2019-07-18 19:20 | NUR ---
HAND-OFF: Report given to RALF Jones Plan of care endorsed.
--- NOTE | 2019-07-18 19:21 | NUR ---
NURSE NOTES: Got report from Vicky ARAMBULA. Pt in stable condition. Denies any pain. No s/s of distress or discomfort noted. Pt resting in bed comfortably. Bed in low and locked position, call light within reach, bedside table within reach. Continue to monitor.
[2019-07-18 20:00] VITALS: BP 160/93
[2019-07-18] MEDS: LORazepam 1mg tab ORAL PRN (21:16)
--- NOTE | 2019-07-18 23:34 | Psych Consult Progress Note ---
Psychiatry Progress Note Psychiatry Progress Note Medications Current Medications Medications (Trade) Dose Ordered Sig/Wilner Route PRN Reason Start Time Stop Time Status Last Admin Dose Admin Acetaminophen (Tylenol) 650 mg Q4H PRN ORAL Mild Pain (Pain Scale 1-3) 07/17/19 02:00 08/16/19 01:59 07/17/19 12:37 Acetaminophen (Tylenol) 650 mg Q4H PRN ORAL fever 07/17/19 02:00 08/16/19 01:59 Aspirin (ASA) 81 mg DAILY ORAL 07/17/19 09:00 08/16/19 08:59 07/18/19 10:03 Calcium/Vitamin D (OsCal D) 1 tab DAILY ORAL 07/17/19 09:00 08/16/19 08:59 07/18/19 10:08 Clonazepam (KlonoPIN) 1 mg BEDTIME ORAL 07/18/19 21:00 07/25/19 20:59 07/18/19 23:18 Dextrose (Dextrose 50%) 25 ml Q30M PRN IV Hypoglycemia 07/17/19 02:00 08/16/19 01:59 Dextrose (Dextrose 50%) 50 ml Q30M PRN IV Hypoglycemia 07/17/19 02:00 08/16/19 01:59 Docusate Sodium (Colace) 100 mg TWICE A DAY ORAL 07/17/19 09:00 08/16/19 08:59 07/18/19 19:26 Enoxaparin Sodium (Lovenox) 40 mg Q24H SUBQ 07/17/19 09:00 08/16/19 08:59 07/17/19 09:48 Escitalopram Oxalate (Lexapro) 20 mg DAILY ORAL 07/17/19 09:00 08/16/19 08:59 07/18/19 10:04 Fluticasone Propionate (Flovent 110 mcg) 1 puff BIDRT INH 07/17/19 10:00 08/16/19 09:59 07/18/19 20:11 Hydralazine HCl (Apresoline) 10 mg Q6H PRN ORAL For High Blood Pressure 07/17/19 09:15 08/16/19 09:14 07/18/19 21:06 Hydromorphone HCl (Dilaudid) 0.5 mg Q4H PRN IVP Severe Pain (Pain Scale 7-10) 07/18/19 09:30 07/25/19 09:29 07/18/19 21:07 Lactulose (Cephulac) 30 gm BID ORAL 07/17/19 09:00 08/16/19 08:59 07/17/19 17:04 Levalbuterol HCl (Xopenex) 0.63 mg Q6H PRN HHN SOB/Wheezing 07/17/19 06:00 07/22/19 05:59 07/18/19 01:48 Lisinopril (PriniviL) 20 mg DAILY ORAL 07/17/19 09:00 08/16/19 08:59 07/18/19 10:03 Lorazepam (Ativan) 2 mg Q6H PRN ORAL For Anxiety 07/18/19 14:45 07/25/19 14:44 07/18/19 21:16 Magnesium Oxide (Mag-Ox 400mg) 200 mg THREE TIMES A DAY ORAL 07/17/19 09:00 08/16/19 08:59 07/18/19 19:25 Mirtazapine (Remeron) 15 mg BEDTIME ORAL 07/18/19 21:00 08/17/19 20:59 07/18/19 23:18 Multivitamins (Multivitamins) 1 tab DAILY ORAL 07/17/19 09:00 08/16/19 08:59 07/18/19 10:04 Ondansetron HCl (Zofran) 4 mg Q6H PRN IVP Nausea & Vomiting 07/17/19 03:15 08/16/19 03:14 07/18/19 23:17 Oxycodone HCl (Roxicodone) 5 mg Q6H PRN ORAL Severe Pain 07/17/19 10:45 07/24/19 10:44 07/18/19 07:03 Pantoprazole (Protonix) 40 mg DAILY ORAL 07/17/19 09:00 08/16/19 08:59 07/18/19 10:04 Polyethylene Glycol (Miralax) 17 gm DAILY PRN ORAL Constipation 07/17/19 09:00 08/16/19 08:59 Sennosides (Senokot) 8.6 mg DAILY PRN ORAL Constipation 07/17/19 04:45 08/16/19 04:44 Neurological/Psychiatric: Reports: anxiety, depressed, emotional problems Allergies: Coded Allergies: [place] (Unverified Allergy, Mild, upset stomach, 02/10/19) TOMATO (Unverified Allergy, Mild, upset stomach, 02/10/19) TETRACYCLINE (Unverified Allergy, Unknown, 07/24/14) Objective Data Height (Feet): 5 Height (Inches): 4.00 Weight (Pounds): 173 Appearance: well groomed Behavior Mannerisms: good eye contact Mental Status Exam - Affect: constricted Speech: clear Mental Status Exam - Thought P: no abnormalities Additional Comments: alert, oriented times self, place, and situation. Mood is anxious. Affect is flat. Thought processes is concrete. Thought content, no suicidal or homicidal ideation. Cognition is intact. Insight and judgment is impaired. ASSESSMENT: [place] I: Anxiety disorder. Major depressive disorder. PLAN: 1. We will continue current medication. 2. Provide the patient with reality orientation and supportive therapy as needed. 3. Added Danielle p.r.n. 4. Remeron. 5. Klonopin. Wan Stern MD Jul 18, 2019 23:34
[2019-07-19] VITALS: BP 150/82
[2019-07-19] MEDS: Hydromorphone 0.5mg/0.5ml inj IVP PRN ×4 (06:26→21:26)
--- NOTE | 2019-07-19 07:30 | Consultation ---
DATE OF CONSULTATION: HISTORY OF PRESENT ILLNESS: The patient is a 78-year-old female, well known to this physician from . The patient constantly is agitated, asking to be helped for poor cognition. She has severe anxiety, med seeking behavior. Constantly asking for benzodiazepine. The patient is well known to this facility years ago and calmer than several years ago. However, she has anxiety. She family. PAST PSYCHIATRIC HISTORY: Anxiety disorder, depression. The patient has multiple psychotropic medications. Still having anxiety behavior. PAST MEDICAL HISTORY: Significant for breast cancer, GERD, osteoporosis, leukocytosis, hypertension. ALLERGIES: Tetracycline. SUBSTANCE ABUSE HISTORY: No known illicit drug use. However, she has med seeking behaviors for benzodiazepines and opiates. MENTAL STATUS EXAMINATION: The patient is alert, oriented times self, place, and situation. Mood is anxious. Affect is flat. Thought processes is concrete. Thought content, no suicidal or homicidal ideation. Cognition is intact. Insight and judgment is impaired. ASSESSMENT: [place] I: Anxiety disorder. Major depressive disorder. PLAN: 1. We will continue current medication. 2. Provide the patient with reality orientation and supportive therapy as needed. 3. Added Ativan p.r.n. 4. Remeron. 5. Klonopin. 6. Lexapro. Wan Stern M.D. DR: Cece JOB#: [id number] CC: BALDEMAR
--- NOTE | 2019-07-19 07:45 | NUR ---
HAND-OFF: Report given to April ARAMBULA.
--- NOTE | 2019-07-19 07:45 | NUR ---
NURSE NOTES: Nurse report given by RALF Jaramillo. Patient's laying in bed, low chin position, eyes open spontaneously, breathing regular and unlabored, no s/s of distress or SOB, denies pain. Bed low and locked, call light within reach, side rails x 3, bed alarm is armed. IV is saline locked, patent and asymptomatic. Will continue to monitor.
[2019-07-19 08:00] VITALS: BP 139/72
[2019-07-19] MEDS: Aspirin Baby 81mg ORAL SCH (08:57)
[2019-07-19] MEDS: Docusate 100mg cap ORAL SCH ×2 (08:57→17:25)
[2019-07-19] MEDS: Lisinopril 20mg tab ORAL SCH (08:57)
[2019-07-19] MEDS: Magnesium Oxide 400mg tab ORAL SCH ×3 (08:57→17:25)
[2019-07-19] MEDS: Lactulose 20gm/30ml UDC ORAL SCH ×2 (08:58→17:24)
[2019-07-19] MEDS: Calcium Carbonate 500mg w/Vit D 200iu tab ORAL SCH (08:58)
[2019-07-19] MEDS: Enoxaparin 40mg Inj SUBQ SCH (09:00)
[2019-07-19] MEDS: Magic Mouth Wash 60ml (Benadryl/Mylanta/Visc Lido) ORAL SCH ×2 (09:02→18:00)
[2019-07-19 09:21] LABS: BASOPHILS % (AUTO) 0.8 % (0.0-2.0); EOSINOPHILS % (AUTO) 3.1 % (0.0-3.0); HEMATOCRIT 32.8 % (37.0-47.0); HEMOGLOBIN 10.9 G/DL (12.0-16.0); LYMPHOCYTES % (AUTO) 32.1 % (20.0-45.0); MEAN CORPUSCULAR VOLUME 92 FL (80-99); MONOCYTES % (AUTO) 7.3 % (1.0-10.0); NEUTROPHILS % (AUTO) 56.8 % (45.0-75.0); PLATELET COUNT 240 K/UL (150-450); RED BLOOD COUNT 3.55 M/UL (4.20-5.40); RED CELL DISTRIBUTION WIDTH 11.6 % (11.6-14.8); WHITE BLOOD COUNT 8.2 K/UL (4.8-10.8)
[2019-07-19 09:47] LABS: ANION GAP 10 mmol/L (5-15); BLOOD UREA NITROGEN 8 mg/dL (7-18); CALCIUM 9.5 MG/DL (8.5-10.1); CARBON DIOXIDE 28 MMOL/L (21-32); CHLORIDE 97 MMOL/L (98-107); CREATININE 0.5 MG/DL (0.55-1.30); PHOSPHORUS 3.9 MG/DL (2.5-4.9); POTASSIUM 3.5 MMOL/L (3.5-5.1); SODIUM 135 MMOL/L (136-145)
[2019-07-19] MEDS: Flovent 110mcg Inhaler - 12gm INH SCH ×2 (10:11→22:24)
[2019-07-19 12:00] VITALS: BP 121/70
--- NOTE | 2019-07-19 12:23 | General Progress Note ---
Assessment/Plan Assessment/Plan: 78-year-old female with PMH of COPD, O2 dependent, diastolic heart failure, [facility] with N/V x1. #Nausea/vomiting #Abdominal pain #Constipation Likely gastroenteritis No leukocytosis, afebrile on admission CT abd unremarkable for GI etiology check CTA A/P Dilaudid IV for severe pain cont. zofran prn, add Reglan for breakthrough nausea #Right hydronephrosis #Left hemorrhagic renal cyst #Nephrolithiasis #Hematuria UA with evidence of blood, leukocyte esterase, RBCs 2-4 CT abdomen revealed severe hydronephrosis of right kidney, nonobstructing, with ureteropelvic junction obstruction and hemorrhagic cyst Renal US reviewed Urology consult appreciated, no acute interventions at this time #Depression #Chronic pain #Anxiety disorder #Osteoarthritis Continue Lexapro Continue qhs Mirtazapine. Continue pregabalin 75 mg BID Continue home Dronabinol 2.5 mg BID PT ordered. Continue Clonazepam 0.5 mg BID Continue Oxycodone 5 mg q6h prn Psychiatry eval appreciated #Chronic respiratory failure on NC 2 L O2 #COPD Currently no acute exacerbation Continue O2 2L NC #HTN Cont home meds, lisinopril 20 daily, MTP 23 BID, amlodipine 10 qdaily #GERD cont. PPI DVT PPX - lovenox Time spent on encounter: 38 mins, >50% on counseling, coordination of care, additional 30 mins spent with chart review. Time of note doesn't reflect time of encounter. Subjective Date patient seen: Jul 19, 2019 Time patient seen: 08:41 ROS Limited/Unobtainable: No Constitutional: Denies: chills, fever Cardiovascular: Denies: chest pain Respiratory: Denies: cough Gastrointestinal/Abdominal: Reports: nausea; Denies: abdomen distended, abdominal pain, vomiting Genitourinary: Denies: burning Neurologic/Psychiatric: Reports: anxiety Allergies: Coded Allergies: [place] (Unverified Allergy, Mild, upset stomach, 02/10/19) TOMATO (Unverified Allergy, Mild, upset stomach, 02/10/19) TETRACYCLINE (Unverified Allergy, Unknown, 07/24/14) Subjective Follow up for abdominal pain, hydronephrosis, nephrolithiasis, constipation Abdominal pain improved, now with nausea CTA abdomen without acute abnormality Objective Last 24 Hour Vital Signs Date Time Temp Pulse Resp B/P (MAP) Pulse Ox O2 Delivery O2 Flow Rate FiO2 07/19/19 12:00 97.0 95 20 121/70 (87) 92 07/19/19 10:11 107 20 95 Nasal Cannula 2.0 28 07/19/19 10:11 107 18 95 Nasal Cannula 2.0 28 07/19/19 09:00 Nasal Cannula 2.0 07/19/19 08:57 139/72 07/19/19 08:00 92 07/19/19 08:00 98.2 92 18 139/72 (94) 92 07/19/19 07:20 95 Nasal Cannula 2.0 28 07/19/19 06:56 99.0 07/19/19 04:00 90 07/19/19 00:00 90 07/19/19 00:00 99.0 93 20 150/82 (104) 95 07/18/19 21:06 160/93 07/18/19 21:00 Nasal Cannula 2.0 07/18/19 20:20 80 20 99 Nasal Cannula 2.0 28 07/18/19 20:20 79 18 98 Nasal Cannula 2.0 28 07/18/19 20:00 97.0 89 19 160/93 (115) 95 07/18/19 20:00 87 07/18/19 19:43 97 Nasal Cannula 2.0 28 07/18/19 16:00 89 07/18/19 16:00 98.6 87 21 148/79 (102) 94 Intake and Output 07/18/19 07/19/19 19:00 07:00 Intake Total 474 ml Output Total 200 ml Balance 274 ml Intake Oral 474 ml Output Urine Total 200 ml # Voids 1 2 Laboratory Tests 07/19/19 08:40: White Blood Count 8.2, Red Blood Count 3.55L, Hemoglobin 10.9L, Hematocrit 32.8L , Mean Corpuscular Volume 92, Mean Corpuscular Hemoglobin 30.8, Mean Corpuscular Hemoglobin Concent 33.3, Red Cell Distribution Width 11.6, Platelet Count 240, Mean Platelet Volume 5.3L, Neutrophils (%) (Auto) 56.8, Lymphocytes ( %) (Auto) 32.1, Monocytes (%) (Auto) 7.3, Eosinophils (%) (Auto) 3.1H, Basophils (%) (Auto) 0.8, Sodium Level 135L, Potassium Level 3.5, Chloride Level 97L, Carbon Dioxide Level 28, Anion Gap 10, Blood Urea Nitrogen 8, Creatinine 0.5L, Estimat Glomerular Filtration Rate > 60, Glucose Level 86, Calcium Level 9.5, Phosphorus Level 3.9, Magnesium Level 2.2 Height (Feet): 5 Height (Inches): 4.00 Weight (Pounds): 173 General Appearance: no apparent distress, alert Neck: non-tender, normal alignment, supple Cardiovascular: normal rate, regular rhythm Respiratory/Chest: lungs clear, normal breath sounds, no respiratory distress Abdomen: normal bowel sounds, non tender, soft Anjum Macedo MD Jul 19, 2019 12:23
[2019-07-19] MEDS ORDERED: Metoclopramide 10mg/2ml Inj IVP PRN (12:30)
[2019-07-19] MEDS: LORazepam 1mg tab ORAL PRN ×2 (12:30→21:26)
--- NOTE | 2019-07-19 12:45 | GI Progress Note ---
Assessment/Plan Problems: (1) Diastolic CHF ICD Codes: I50.30 - Unspecified diastolic (congestive) heart failure SNOMED: 89502455, 858274241 (2) Anemia ICD Codes: D64.9 - Anemia, unspecified SNOMED: 383213368 (3) GERD (gastroesophageal reflux disease) ICD Codes: K21.9 - Gastro-esophageal reflux disease without esophagitis SNOMED: 078505732 (4) Constipation ICD Codes: K59.00 - Constipation, unspecified SNOMED: 27242278 Status: unchanged Status Narrative Discussed with Dr. Arshad. Assessment/Plan Abdominal pelvis CT reviewed, no small bowel obstruction. Moderate filled colon with stool and air. Endoscopy and colonoscopy in February 2019 noted with gastritis and colonic polyps. No plan for any GI procedures at this time given recent history of procedure. Will treat for constipation lactulose + colace dulcolax ID x1 zofran prn, compazine for persistent nausea. Reglan has drug to drug interaction. anemia work up OB stool r/o GI bleed monitor H&H, prn transfusions Will need outpatient follow-up to manage constipation The patient was seen and examined at bedside and all new and available data was reviewed in the patients chart. I agree with the above findings, impression and plan. (Patient seen earlier today. Signature stamp does not reflect patient encounter time.). - Kapil Arshad MD Subjective Gastrointestinal/Abdominal: Reports: abdominal pain Objective Last 24 Hour Vital Signs Date Time Temp Pulse Resp B/P (MAP) Pulse Ox O2 Delivery O2 Flow Rate FiO2 07/19/19 12:00 97.0 95 20 121/70 (87) 92 07/19/19 10:11 107 20 95 Nasal Cannula 2.0 28 07/19/19 10:11 107 18 95 Nasal Cannula 2.0 28 07/19/19 09:00 Nasal Cannula 2.0 07/19/19 08:57 139/72 07/19/19 08:00 92 07/19/19 08:00 98.2 92 18 139/72 (94) 92 07/19/19 07:20 95 Nasal Cannula 2.0 28 07/19/19 06:56 99.0 07/19/19 04:00 90 07/19/19 00:00 90 07/19/19 00:00 99.0 93 20 150/82 (104) 95 07/18/19 21:06 160/93 07/18/19 21:00 Nasal Cannula 2.0 07/18/19 20:20 80 20 99 Nasal Cannula 2.0 28 07/18/19 20:20 79 18 98 Nasal Cannula 2.0 28 07/18/19 20:00 97.0 89 19 160/93 (115) 95 07/18/19 20:00 87 07/18/19 19:43 97 Nasal Cannula 2.0 28 07/18/19 16:00 89 07/18/19 16:00 98.6 87 21 148/79 (102) 94 Intake and Output 07/18/19 07/19/19 19:00 07:00 Intake Total 474 ml Output Total 200 ml Balance 274 ml Intake Oral 474 ml Output Urine Total 200 ml # Voids 1 2 Laboratory Tests Test 07/19/19 08:40 White Blood Count 8.2 K/UL (4.8-10.8) Red Blood Count 3.55 M/UL (4.20-5.40) L Hemoglobin 10.9 G/DL (12.0-16.0) L Hematocrit 32.8 % (37.0-47.0) L Mean Corpuscular Volume 92 FL (80-99) Mean Corpuscular Hemoglobin 30.8 PG (27.0-31.0) Mean Corpuscular Hemoglobin Concent 33.3 G/DL (32.0-36.0) Red Cell Distribution Width 11.6 % (11.6-14.8) Platelet Count 240 K/UL (150-450) Mean Platelet Volume 5.3 FL (6.5-10.1) L Neutrophils (%) (Auto) 56.8 % (45.0-75.0) Lymphocytes (%) (Auto) 32.1 % (20.0-45.0) Monocytes (%) (Auto) 7.3 % (1.0-10.0) Eosinophils (%) (Auto) 3.1 % (0.0-3.0) H Basophils (%) (Auto) 0.8 % (0.0-2.0) Sodium Level 135 MMOL/L (136-145) L Potassium Level 3.5 MMOL/L (3.5-5.1) Chloride Level 97 MMOL/L (98-107) L Carbon Dioxide Level 28 MMOL/L (21-32) Anion Gap 10 mmol/L (5-15) Blood Urea Nitrogen 8 mg/dL (7-18) Creatinine 0.5 MG/DL (0.55-1.30) L Estimat Glomerular Filtration Rate > 60 mL/min (>60) Glucose Level 86 MG/DL (74-106) Calcium Level 9.5 MG/DL (8.5-10.1) Phosphorus Level 3.9 MG/DL (2.5-4.9) Magnesium Level 2.2 MG/DL (1.8-2.4) Height (Feet): 5 Height (Inches): 4.00 Weight (Pounds): 173 General Appearance: WD/WN, no apparent distress, alert Cardiovascular: normal rate Respiratory/Chest: normal breath sounds, no respiratory distress Abdominal Exam: normal bowel sounds, non tender, soft Extremities: non-tender Sky Wood NP Jul 19, 2019 12:45
--- NOTE | 2019-07-19 14:04 | Urology Progress Note ---
Assessment/Plan Status: unchanged Assessment/Plan: 1. 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 2. Nonobstructive renal calculi. 3. Hemorrhagic renal cyst. 4. Microhematuria. 5. Abdominal pain. 6. Urinary frequency history. 7. Rule out neurogenic bladder. 8. History of UTIs, mild pyuria. monitor clinically abdominal pain prob not related GI w/u abx PRN renal fxn stable Subjective Allergies: Coded Allergies: [place] (Unverified Allergy, Mild, upset stomach, 02/10/19) TOMATO (Unverified Allergy, Mild, upset stomach, 02/10/19) TETRACYCLINE (Unverified Allergy, Unknown, 07/24/14) Subjective all noted, feels fair Objective Last 24 Hour Vital Signs Date Time Temp Pulse Resp B/P (MAP) Pulse Ox O2 Delivery O2 Flow Rate FiO2 07/19/19 13:31 97.0 07/19/19 12:00 97.0 95 20 121/70 (87) 92 07/19/19 10:11 107 20 95 Nasal Cannula 2.0 28 07/19/19 10:11 107 18 95 Nasal Cannula 2.0 28 07/19/19 09:00 Nasal Cannula 2.0 07/19/19 08:57 139/72 07/19/19 08:00 92 07/19/19 08:00 98.2 92 18 139/72 (94) 92 07/19/19 07:20 95 Nasal Cannula 2.0 28 07/19/19 04:00 90 07/19/19 00:00 90 07/19/19 00:00 99.0 93 20 150/82 (104) 95 07/18/19 21:06 160/93 07/18/19 21:00 Nasal Cannula 2.0 07/18/19 20:20 80 20 99 Nasal Cannula 2.0 28 07/18/19 20:20 79 18 98 Nasal Cannula 2.0 28 07/18/19 20:00 97.0 89 19 160/93 (115) 95 07/18/19 20:00 87 07/18/19 19:43 97 Nasal Cannula 2.0 28 07/18/19 16:00 89 07/18/19 16:00 98.6 87 21 148/79 (102) 94 Intake and Output 07/18/19 07/19/19 19:00 07:00 Intake Total 474 ml Output Total 200 ml Balance 274 ml Intake Oral 474 ml Output Urine Total 200 ml # Voids 1 2 Current Medications Medications (Trade) Dose Ordered Sig/Wilner Route PRN Reason Start Time Stop Time Status Last Admin Dose Admin Acetaminophen (Tylenol) 650 mg Q4H PRN ORAL Mild Pain (Pain Scale 1-3) 07/17/19 02:00 08/16/19 01:59 07/17/19 12:37 Acetaminophen (Tylenol) 650 mg Q4H PRN ORAL fever 07/17/19 02:00 08/16/19 01:59 Aspirin (ASA) 81 mg DAILY ORAL 07/17/19 09:00 08/16/19 08:59 07/19/19 08:57 Bisacodyl (Dulcolax) 10 mg DAILYPRN PRN RECTAL Constipation 07/19/19 12:45 08/18/19 12:44 Bisacodyl (Dulcolax) 10 mg ONCE RECTAL 07/19/19 12:45 07/19/19 14:30 07/19/19 13:31 Calcium/Vitamin D (OsCal D) 1 tab DAILY ORAL 07/17/19 09:00 08/16/19 08:59 07/19/19 08:58 Clonazepam (KlonoPIN) 1 mg BEDTIME ORAL 07/18/19 21:00 07/25/19 20:59 07/18/19 23:18 Dextrose (Dextrose 50%) 25 ml Q30M PRN IV Hypoglycemia 07/17/19 02:00 08/16/19 01:59 Dextrose (Dextrose 50%) 50 ml Q30M PRN IV Hypoglycemia 07/17/19 02:00 08/16/19 01:59 Docusate Sodium (Colace) 100 mg TWICE A DAY ORAL 07/17/19 09:00 08/16/19 08:59 07/19/19 08:57 Enoxaparin Sodium (Lovenox) 40 mg Q24H SUBQ 07/17/19 09:00 08/16/19 08:59 07/17/19 09:48 Escitalopram Oxalate (Lexapro) 20 mg DAILY ORAL 07/17/19 09:00 08/16/19 08:59 07/19/19 08:58 Fluticasone Propionate (Flovent 110 mcg) 1 puff BIDRT INH 07/17/19 10:00 08/16/19 09:59 07/19/19 10:11 Hydralazine HCl (Apresoline) 10 mg Q6H PRN ORAL For High Blood Pressure 07/17/19 09:15 08/16/19 09:14 07/18/19 21:06 Hydromorphone HCl (Dilaudid) 0.5 mg Q4H PRN IVP Severe Pain (Pain Scale 7-10) 07/18/19 09:30 07/25/19 09:29 07/19/19 13:01 Lactulose (Cephulac) 30 gm BID ORAL 07/17/19 09:00 08/16/19 08:59 07/17/19 17:04 Levalbuterol HCl (Xopenex) 0.63 mg Q6H PRN HHN SOB/Wheezing 07/17/19 06:00 07/22/19 05:59 07/18/19 01:48 Lisinopril (PriniviL) 20 mg DAILY ORAL 07/17/19 09:00 08/16/19 08:59 07/19/19 08:57 Lorazepam (Ativan) 2 mg Q6H PRN ORAL For Anxiety 07/18/19 14:45 07/25/19 14:44 07/19/19 12:30 Magnesium Oxide (Mag-Ox 400mg) 200 mg THREE TIMES A DAY ORAL 07/17/19 09:00 08/16/19 08:59 07/19/19 12:30 Metoclopramide HCl (Reglan) 10 mg Q8H PRN IVP Nausea & Vomiting 07/19/19 12:30 08/18/19 12:29 Mirtazapine (Remeron) 15 mg BEDTIME ORAL 07/18/19 21:00 08/17/19 20:59 07/18/19 23:18 Multivitamins (Multivitamins) 1 tab DAILY ORAL 07/17/19 09:00 08/16/19 08:59 07/19/19 08:59 Ondansetron HCl (Zofran) 4 mg Q6H PRN IVP Nausea & Vomiting 07/17/19 03:15 08/16/19 03:14 07/19/19 12:30 Oxycodone HCl (Roxicodone) 5 mg Q6H PRN ORAL Severe Pain 07/17/19 10:45 07/24/19 10:44 07/18/19 07:03 Pantoprazole (Protonix) 40 mg DAILY ORAL 07/17/19 09:00 08/16/19 08:59 07/19/19 08:57 Polyethylene Glycol (Miralax) 17 gm DAILY PRN ORAL Constipation 07/17/19 09:00 08/16/19 08:59 Sennosides (Senokot) 8.6 mg DAILY PRN ORAL Constipation 07/17/19 04:45 08/16/19 04:44 Laboratory Tests 07/19/19 08:40: White Blood Count 8.2, Red Blood Count 3.55L, Hemoglobin 10.9L, Hematocrit 32.8L , Mean Corpuscular Volume 92, Mean Corpuscular Hemoglobin 30.8, Mean Corpuscular Hemoglobin Concent 33.3, Red Cell Distribution Width 11.6, Platelet Count 240, Mean Platelet Volume 5.3L, Neutrophils (%) (Auto) 56.8, Lymphocytes ( %) (Auto) 32.1, Monocytes (%) (Auto) 7.3, Eosinophils (%) (Auto) 3.1H, Basophils (%) (Auto) 0.8, Sodium Level 135L, Potassium Level 3.5, Chloride Level 97L, Carbon Dioxide Level 28, Anion Gap 10, Blood Urea Nitrogen 8, Creatinine 0.5L, Estimat Glomerular Filtration Rate > 60, Glucose Level 86, Calcium Level 9.5, Phosphorus Level 3.9, Magnesium Level 2.2 Height (Feet): 5 Height (Inches): 4.00 Weight (Pounds): 173 Objective exam stable Genaro Maurice MD Jul 19, 2019 14:04
[2019-07-19 16:00] VITALS: BP 125/68
--- NOTE | 2019-07-19 19:15 | NUR ---
HAND-OFF: Report given to RALF Montgomery. Patient's stable, plan of care endorsed.
[2019-07-19 20:00] VITALS: BP 136/68
[2019-07-20] VITALS: BP 106/60
--- NOTE | 2019-07-20 00:45 | Progress Note ---
DATE: 07/17/2019 SUBJECTIVE: The patient at present having episodes of anxiety. She has poor insight, confused, and disoriented. MENTAL STATUS EXAMINATION: The patient is alert and oriented times self, place, and situation. Mood is anxious. Affect is flat. Thought process is concrete. Thought content, no suicidal or homicidal ideation. Cognition is impaired. Insight and judgment is impaired. ASSESSMENT: 1. Anxiety disorder. 2. Major depressive disorder. PLAN: 1. Continue the Lexapro. 2. Continue the clonidine. 3. Continue the Remeron. 4. Provide the patient with reality orientation and supportive therapy. Wan Stern M.D. DR: ANGELICA JOB#: [id number] CC:
[2019-07-20] MEDS: Hydromorphone 0.5mg/0.5ml inj IVP PRN ×3 (03:28→16:40)
[2019-07-20 04:00] VITALS: BP 137/80
--- NOTE | 2019-07-20 07:40 | NUR ---
NURSE NOTES: Received report from Ulises ARAMBULA. Pt in bed awake and orientedx3. c/o pain in diffused abd and back /. Pain meds given as ordered. IV site in RAC 20G SL and Right hand 24G SL patent and asymptomatic. Moderate amount of bowel movement reported during last night form previous shift nurse. Call light within easy reach. Side railsx3 up for safety. Will continue to plan of care.
--- NOTE | 2019-07-20 07:40 | NUR ---
HAND-OFF: Report given to Min RN.
[2019-07-20 08:00] VITALS: BP 136/72
[2019-07-20] MEDS: Lactulose 20gm/30ml UDC ORAL SCH ×2 (08:07→08:45)
[2019-07-20] MEDS: Lisinopril 20mg tab ORAL SCH (08:07)
[2019-07-20] MEDS: Aspirin Baby 81mg ORAL SCH (08:07)
[2019-07-20] MEDS: Calcium Carbonate 500mg w/Vit D 200iu tab ORAL SCH (08:08)
[2019-07-20] MEDS: Docusate 100mg cap ORAL SCH (08:08)
[2019-07-20] MEDS: Magnesium Oxide 400mg tab ORAL SCH (08:09)
[2019-07-20] MEDS: Enoxaparin 40mg Inj SUBQ SCH (08:09)
[2019-07-20 08:33] LABS: BASOPHILS % (AUTO) 0.8 % (0.0-2.0); EOSINOPHILS % (AUTO) 3.9 % (0.0-3.0); HEMATOCRIT 33.8 % (37.0-47.0); HEMOGLOBIN 11.3 G/DL (12.0-16.0); LYMPHOCYTES % (AUTO) 33.6 % (20.0-45.0); MEAN CORPUSCULAR VOLUME 92 FL (80-99); NEUTROPHILS % (AUTO) 52.8 % (45.0-75.0); PLATELET COUNT 249 K/UL (150-450); RED BLOOD COUNT 3.67 M/UL (4.20-5.40); RED CELL DISTRIBUTION WIDTH 11.9 % (11.6-14.8); WHITE BLOOD COUNT 9.4 K/UL (4.8-10.8)
[2019-07-20 08:44] LABS: ANION GAP 12 mmol/L (5-15); BLOOD UREA NITROGEN 20 mg/dL (7-18); CALCIUM 9.7 MG/DL (8.5-10.1); CARBON DIOXIDE 28 MMOL/L (21-32); CHLORIDE 97 MMOL/L (98-107); CREATININE 0.7 MG/DL (0.55-1.30); POTASSIUM 3.3 MMOL/L (3.5-5.1); SODIUM 137 MMOL/L (136-145)
[2019-07-20] MEDS: Magic Mouth Wash 60ml (Benadryl/Mylanta/Visc Lido) ORAL SCH (08:49)
[2019-07-20] MEDS: Flovent 110mcg Inhaler - 12gm INH SCH (10:10)
--- NOTE | 2019-07-20 10:28 | GI Progress Note ---
Assessment/Plan Problems: (1) Diastolic CHF ICD Codes: I50.30 - Unspecified diastolic (congestive) heart failure SNOMED: 24084707, 418931487 (2) Anemia ICD Codes: D64.9 - Anemia, unspecified SNOMED: 944693961 (3) GERD (gastroesophageal reflux disease) ICD Codes: K21.9 - Gastro-esophageal reflux disease without esophagitis SNOMED: 263427753 (4) Constipation ICD Codes: K59.00 - Constipation, unspecified SNOMED: 25255274 Status: stable, unchanged Status Narrative Discussed with Dr. Arshad. Assessment/Plan Abdominal pelvis CT reviewed, no small bowel obstruction. Moderate filled colon with stool and air. Endoscopy and colonoscopy in February 2019 noted with gastritis and colonic polyps. No plan for any GI procedures at this time given recent history of procedure. Will treat for constipation lactulose + colace zofran prn, compazine for persistent nausea. Reglan has drug to drug interaction. anemia work up OB stool r/o GI bleed monitor H&H, prn transfusions Will need outpatient follow-up to manage constipation The patient was seen and examined at bedside and all new and available data was reviewed in the patients chart. I agree with the above findings, impression and plan. (Patient seen earlier today. Signature stamp does not reflect patient encounter time.). - Kapil Arshad MD Subjective Gastrointestinal/Abdominal: Reports: abdominal pain Objective Last 24 Hour Vital Signs Date Time Temp Pulse Resp B/P (MAP) Pulse Ox O2 Delivery O2 Flow Rate FiO2 07/20/19 10:11 73 18 96 Nasal Cannula 2.0 28 07/20/19 10:11 96 Nasal Cannula 2.0 28 07/20/19 10:11 75 18 96 Nasal Cannula 2.0 28 07/20/19 09:00 Nasal Cannula 2.0 07/20/19 08:07 137/80 07/20/19 08:00 98.7 69 20 136/72 (93) 96 07/20/19 08:00 101 07/20/19 04:00 97.5 85 20 137/80 (99) 98 07/20/19 04:00 86 07/20/19 03:58 97.3 07/20/19 00:00 97.3 91 20 106/60 (75) 97 07/20/19 00:00 84 07/19/19 22:25 98 Nasal Cannula 2.0 28 07/19/19 22:24 87 18 98 Nasal Cannula 2.0 28 07/19/19 22:24 89 20 98 Nasal Cannula 2.0 28 07/19/19 21:00 Nasal Cannula 2.0 07/19/19 20:00 98.4 105 20 136/68 (90) 98 07/19/19 16:00 97.0 109 20 125/68 (87) 92 07/19/19 16:00 109 07/19/19 12:00 79 07/19/19 12:00 97.0 95 20 121/70 (87) 92 Intake and Output 07/19/19 07/20/19 19:00 07:00 Intake Total 360 ml 150 ml Output Total 200 ml Balance 360 ml -50 ml Intake Oral 360 ml Other 150 ml Output Urine Total 200 ml # Voids 2 # Bowel Movements 1 Laboratory Tests Test 07/20/19 08:15 White Blood Count 9.4 K/UL (4.8-10.8) Red Blood Count 3.67 M/UL (4.20-5.40) L Hemoglobin 11.3 G/DL (12.0-16.0) L Hematocrit 33.8 % (37.0-47.0) L Mean Corpuscular Volume 92 FL (80-99) Mean Corpuscular Hemoglobin 30.8 PG (27.0-31.0) Mean Corpuscular Hemoglobin Concent 33.5 G/DL (32.0-36.0) Red Cell Distribution Width 11.9 % (11.6-14.8) Platelet Count 249 K/UL (150-450) Mean Platelet Volume 5.3 FL (6.5-10.1) L Neutrophils (%) (Auto) 52.8 % (45.0-75.0) Lymphocytes (%) (Auto) 33.6 % (20.0-45.0) Monocytes (%) (Auto) 9.0 % (1.0-10.0) Eosinophils (%) (Auto) 3.9 % (0.0-3.0) H Basophils (%) (Auto) 0.8 % (0.0-2.0) Sodium Level 137 MMOL/L (136-145) Potassium Level 3.3 MMOL/L (3.5-5.1) L Chloride Level 97 MMOL/L (98-107) L Carbon Dioxide Level 28 MMOL/L (21-32) Anion Gap 12 mmol/L (5-15) Blood Urea Nitrogen 20 mg/dL (7-18) H Creatinine 0.7 MG/DL (0.55-1.30) Estimat Glomerular Filtration Rate > 60 mL/min (>60) Glucose Level 101 MG/DL (74-106) Calcium Level 9.7 MG/DL (8.5-10.1) Height (Feet): 5 Height (Inches): 4.00 Weight (Pounds): 173 General Appearance: no apparent distress, alert Cardiovascular: normal rate Respiratory/Chest: normal breath sounds Abdominal Exam: soft Sky Wood NP Jul 20, 2019 10:28
[2019-07-20] MEDS: LORazepam 1mg tab ORAL PRN (10:34)
--- NOTE | 2019-07-20 10:40 | NUR ---
NURSE NOTES: Dr. Gama paged for K+ 3.3 awaiting for reply
[2019-07-20] MEDS ORDERED: HydrALAZINE 10mg Tab ORAL PRN (10:42)
[2019-07-20] MEDS ORDERED: Levalbuterol Inh UD 1.25mg/0.5ml HHN PRN (10:42)
[2019-07-20] MEDS ORDERED: LORazepam 1mg tab ORAL PRN (10:42)
[2019-07-20] MEDS ORDERED: Metoclopramide 10mg/2ml Inj IVP PRN (10:43)
[2019-07-20] MEDS ORDERED: oxyCODONE 5mg IR tab ORAL PRN (10:43)
[2019-07-20] MEDS ORDERED: Miralax 17gm pkt ORAL PRN (10:44)
[2019-07-20] MEDS ORDERED: Sennosides 8.6mg tab ORAL PRN (10:44)
--- NOTE | 2019-07-20 10:50 | NUR ---
HAND-OFF: Report given to Fatuma MACHADO. Pt remains stable.
[2019-07-20 11:01] VITALS: BP 132/69
--- NOTE | 2019-07-20 11:03 | NUR ---
NURSE NOTES: report received by RALF Ibanez. patient is A/A/Ox4, appeared anxious. ON O2 2L via NC. sacral redness and treated. wound photo taken. IV access patent and intact. Denies any pain. No s/s of distress or discomfort noted. Pt resting in bed comfortably. Bed in low and locked position, call light within reach, bedside table within reach. Continue to monitor.
--- NOTE | 2019-07-20 11:57 | Urology Progress Note ---
Assessment/Plan Status: stable, unchanged Assessment/Plan: 1. 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 2. Nonobstructive renal calculi. 3. Hemorrhagic renal cyst. 4. Microhematuria. 5. Abdominal pain. 6. Urinary frequency history. 7. Rule out neurogenic bladder. 8. History of UTIs, mild pyuria. monitor clinically abdominal pain prob not related GI w/u abx PRN renal fxn stable consider retrograde study at some point if feasible Subjective Allergies: Coded Allergies: [place] (Unverified Allergy, Mild, upset stomach, 02/10/19) TOMATO (Unverified Allergy, Mild, upset stomach, 02/10/19) TETRACYCLINE (Unverified Allergy, Unknown, 07/24/14) Subjective all noted, feels fair Objective Last 24 Hour Vital Signs Date Time Temp Pulse Resp B/P (MAP) Pulse Ox O2 Delivery O2 Flow Rate FiO2 07/20/19 11:01 97.9 72 21 132/69 (90) 95 07/20/19 10:11 73 18 96 Nasal Cannula 2.0 28 07/20/19 10:11 96 Nasal Cannula 2.0 28 07/20/19 10:11 75 18 96 Nasal Cannula 2.0 28 07/20/19 09:00 Nasal Cannula 2.0 07/20/19 08:07 137/80 07/20/19 08:00 98.7 69 20 136/72 (93) 96 07/20/19 08:00 101 07/20/19 04:00 97.5 85 20 137/80 (99) 98 07/20/19 04:00 86 07/20/19 03:58 97.3 07/20/19 00:00 97.3 91 20 106/60 (75) 97 07/20/19 00:00 84 07/19/19 22:25 98 Nasal Cannula 2.0 28 07/19/19 22:24 87 18 98 Nasal Cannula 2.0 28 07/19/19 22:24 89 20 98 Nasal Cannula 2.0 28 07/19/19 21:00 Nasal Cannula 2.0 07/19/19 20:00 98.4 105 20 136/68 (90) 98 07/19/19 16:00 97.0 109 20 125/68 (87) 92 07/19/19 16:00 109 3/10/20 12:00 79 07/19/19 12:00 97.0 95 20 121/70 (87) 92 Intake and Output 07/19/19 07/20/19 19:00 07:00 Intake Total 360 ml 150 ml Output Total 200 ml Balance 360 ml -50 ml Intake Oral 360 ml Other 150 ml Output Urine Total 200 ml # Voids 2 # Bowel Movements 1 Current Medications Medications (Trade) Dose Ordered Sig/Wilner Route PRN Reason Start Time Stop Time Status Last Admin Dose Admin Acetaminophen (Tylenol) 650 mg Q4H PRN ORAL Mild Pain (Pain Scale 1-3) 07/20/19 10:41 08/19/19 10:40 Acetaminophen (Tylenol) 650 mg Q4H PRN ORAL fever 07/20/19 10:41 08/19/19 10:40 Aspirin (ASA) 81 mg DAILY ORAL 07/21/19 09:00 08/16/19 08:59 Bisacodyl (Dulcolax) 10 mg DAILYPRN PRN RECTAL Constipation 07/20/19 10:41 08/19/19 10:40 Calcium/Vitamin D (OsCal D) 1 tab DAILY ORAL 07/21/19 09:00 08/16/19 08:59 Clonazepam (KlonoPIN) 1 mg BEDTIME ORAL 07/20/19 21:00 07/25/19 20:59 Dextrose (Dextrose 50%) 25 ml Q30M PRN IV Hypoglycemia 07/20/19 11:00 08/16/19 01:59 Dextrose (Dextrose 50%) 50 ml Q30M PRN IV Hypoglycemia 07/20/19 11:00 08/16/19 01:59 Docusate Sodium (Colace) 100 mg TWICE A DAY ORAL 07/20/19 18:00 08/16/19 08:59 Enoxaparin Sodium (Lovenox) 40 mg Q24H SUBQ 07/21/19 09:00 08/16/19 08:59 Escitalopram Oxalate (Lexapro) 20 mg DAILY ORAL 07/21/19 09:00 08/16/19 08:59 Fluticasone Propionate (Flovent 110 mcg) 1 puff BIDRT INH 07/20/19 22:00 08/16/19 09:59 Hydralazine HCl (Apresoline) 10 mg Q6H PRN ORAL For High Blood Pressure 07/20/19 10:42 08/19/19 10:41 Hydromorphone HCl (Dilaudid) 0.5 mg Q4H PRN IVP Severe Pain (Pain Scale 7-10) 07/20/19 10:42 07/27/19 10:41 Lactulose (Cephulac) 30 gm BID ORAL 07/20/19 18:00 08/16/19 08:59 Levalbuterol HCl (Xopenex) 0.63 mg Q6H PRN HHN SOB/Wheezing 07/20/19 10:42 07/25/19 10:41 Lisinopril (PriniviL) 20 mg DAILY ORAL 07/21/19 09:00 08/16/19 08:59 Lorazepam (Ativan) 2 mg Q6H PRN ORAL For Anxiety 07/20/19 10:42 07/27/19 10:41 Magnesium Oxide (Mag-Ox 400mg) 200 mg THREE TIMES A DAY ORAL 07/20/19 13:00 08/16/19 08:59 Metoclopramide HCl (Reglan) 10 mg Q8H PRN IVP Nausea & Vomiting 07/20/19 10:43 08/19/19 10:42 Mirtazapine (Remeron) 15 mg BEDTIME ORAL 07/20/19 21:00 08/17/19 20:59 Multivitamins (Multivitamins) 1 tab DAILY ORAL 07/21/19 09:00 08/16/19 08:59 Ondansetron HCl (Zofran) 4 mg Q6H PRN IVP Nausea & Vomiting 07/20/19 10:43 08/19/19 10:42 Oxycodone HCl (Roxicodone) 5 mg Q6H PRN ORAL Severe Pain 07/20/19 10:43 07/27/19 10:42 Pantoprazole (Protonix) 40 mg DAILY ORAL 07/21/19 09:00 08/16/19 08:59 Polyethylene Glycol (Miralax) 17 gm DAILYPRN PRN ORAL Constipation 07/20/19 10:44 08/19/19 10:43 Sennosides (Senokot) 8.6 mg DAILYPRN PRN ORAL Constipation 07/20/19 10:44 08/19/19 10:43 Laboratory Tests 07/20/19 08:15: White Blood Count 9.4, Red Blood Count 3.67L, Hemoglobin 11.3L, Hematocrit 33.8L , Mean Corpuscular Volume 92, Mean Corpuscular Hemoglobin 30.8, Mean Corpuscular Hemoglobin Concent 33.5, Red Cell Distribution Width 11.9, Platelet Count 249, Mean Platelet Volume 5.3L, Neutrophils (%) (Auto) 52.8, Lymphocytes ( %) (Auto) 33.6, Monocytes (%) (Auto) 9.0, Eosinophils (%) (Auto) 3.9H, Basophils (%) (Auto) 0.8, Sodium Level 137, Potassium Level 3.3L, Chloride Level 97L, Carbon Dioxide Level 28, Anion Gap 12, Blood Urea Nitrogen 20H, Creatinine 0.7, Estimat Glomerular Filtration Rate > 60, Glucose Level 101, Calcium Level 9.7 Height (Feet): 5 Height (Inches): 4.00 Weight (Pounds): 173 Objective exam stable Genaro Maurice MD Jul 20, 2019 11:57
[2019-07-20 12:00] VITALS: BP 152/60
--- NOTE | 2019-07-20 12:00 | NUR ---
DISCHARGE PLANNING PER DR MARKHAM PATIENT IS READY TO RETURN TO [facility] TODAY. FAXED CLINICALS TO: [facility] T: [phone] F: [phone] AWAIT BED ASSIGNMENT
--- NOTE | 2019-07-20 12:12 | NUR ---
DISCHARGE PLANNED PATIENT IS RETURNING TO [facility] RO[facility] T: [phone] FOR NURSE TO NURSE REPORT [facility] HAS BEEN ARRANGED FOR 1430 DYE OPERATOR SPOKE WITH PATIENT'S SISTER, MELISSA.....SHE IS IN AGREEMENT WITH DISCHARGE PLAN
--- NOTE | 2019-07-20 12:55 | Discharge Summary ---
Discharge Summary Hospital Course Date of Admission Jul 17, 2019 at 01:47 Date of Discharge 07/20/19 Admitting Diagnosis abdominal pain, possible obstruction HPI Brooke Sorensen is a 78 year old female who was admitted on Jul 17, 2019 at 01: 47 for Abdominal Pain,Possible Obstruction Consultations GI, Urology Hospital Course 78-year-old female with PMH of COPD, O2 dependent, diastolic heart failure, came in from long-term for abdominal pain with N/V x1. Patient found to have right hydronephrosis on CT, seen by Urology, felt to be chronic, no interventions recommended. Seen by GI, CTA A/P was negative, pain attributed to constipation. She was discharged back to [facility] in stable condition. #Nausea/vomiting #Abdominal pain #Constipation #Right hydronephrosis #Left hemorrhagic renal cyst #Nephrolithiasis #Hematuria #Depression #Chronic pain #Anxiety disorder #Osteoarthritis #Chronic respiratory failure on NC 2 L O2 #COPD #HTN #GERD Time spent on discharge was 38 mins, includes coordination with RN, Assembling Inspector , Consulting MDs Time of note doesn't reflect time of encounter. Discharge Medications Continued Medications: Acetaminophen* (Acetaminophen 325MG Tablet*) 325 Mg Tablet 650 MG ORAL Q4H PRN for Mild Pain (Pain Scale 1-3), TAB Acetylcysteine* (Acetylcysteine*) 200 Mg/1 Ml Vial 200 MG HHN Q4HR PRN for CONGESTION, VIAL (This prescription has been renewed) Amlodipine Besylate* (Amlodipine Besylate*) 10 Mg Tablet 10 MG ORAL DAILY, TAB HOLD FOR SBP<110, HR<60 Ascorbic Acid* (Ascorbic Acid*) 500 Mg Tablet 500 MG ORAL DAILY for SUPPLEMENT, TAB (This prescription has been renewed) Aspirin* (Aspirin*) 81 Mg Tab.chew 81 MG ORAL DAILY, TAB (This prescription has been renewed) Benzonatate* (Tessalon Perle*) 100 Mg Capsule 100 MG ORAL THREE TIMES A DAY PRN for For Cough, PERLE (This prescription has been renewed) [Bevespi Aerosphere ] () 9MCG/4.8MCG PUFFS 2 PUFFS INH BID Bisacodyl (Dulcolax) 10 Mg Supp.rect 10 MG RC PRN PRN for Constipation, SUPP Calcium Carbonate/Vitamin D3 ([place] 500+D Tablet) 1 Each Tablet 1 EACH PO DAILY, TAB (This prescription has been renewed) Clonazepam* (Klonopin*) 0.5 Mg Tablet 0.5 MG ORAL BID for 30 Days, #60 TAB Docusate Sodium* (Colace*) 100 Mg Capsule 100 MG ORAL BID, CAP Dronabinol* (Marinol*) 2.5 Mg Capsule 2.5 MG ORAL BID for 30 Days, #60 CAP Escitalopram Oxalate* (Lexapro*) 20 Mg Tablet 20 MG ORAL DAILY, TAB (This prescription has been renewed) Ferrous Sulfate* (Ferrous Sulfate*) 325 Mg Tablet 325 MG ORAL DAILY for SUPPLEMENT, TAB (This prescription has been renewed) Fluticasone Propionate (Flovent Hfa) 12 Gm Aer.w.adap 2 PUFFS INH DAILY, #1 EA 0 Refills (This prescription has been renewed) Fluticasone Propionate (Flonase Allergy Relief) 9.9 Ml [place].susp 1 SPRAYS NS DAILY for ALLERGIES (This prescription has been renewed) Ipratropium [place] (Atrovent Hfa) 12.9 Gm Hfa.aer.ad 1 UNIT HHN Q6HR PRN for SOB/WHEEZING (This prescription has been renewed) ATROVENT 0.02% SOLUTION, INHALED VIA NEBULIZER Lactulose (Lactulose*) 20 Gm/30 Ml Solution 30 ML ORAL DAILY PRN for Constipation, ML 0 Refills Levalbuterol Hcl (Xopenex*) 0.63 Mg/3 Ml Vial.neb 0.63 MG HHN Q6H PRN for SOB/WHEEZING, VIAL (This prescription has been renewed) Lisinopril (Lisinopril*) 20 Mg Tablet 20 MG ORAL DAILY for HYPERTENSION, TAB (This prescription has been renewed) HOLD FOR SBP<110 Mag Hydrox/Al Hydrox/Simeth* (Advanced Antacid Liquid*) 355 Ml Oral.susp 20 ML ORAL Q4HR PRN for INDIGESTION, ML (This prescription has been renewed) Magnesium (Magnesium) 200 Mg Tablet 200 MG PO QD, TAB (This prescription has been renewed) Methocarbamol* (Robaxin-500*) 500 Mg Tablet 500 MG ORAL Q6H PRN for 30 Days, #30 TAB Metoprolol Tartrate (Metoprolol Tartrate) 25 Mg Tablet 25 MG ORAL Q12HR for 30 Days, #60 TAB Mirtazapine* (Mirtazapine*) 7.5 Mg Tablet 7.5 MG ORAL BEDTIME for DEPRESSION/SLEEP, TAB (This prescription has been renewed) Montelukast Sodium* (Montelukast Sodium*) 10 Mg Tablet 10 MG ORAL DAILY, TAB (This prescription has been renewed) Multivitamin (Multivitamins) 1 Each Tablet 1 EACH PO QD, TAB Ondansetron* (Zofran*) 4 Mg Tablet 4 MG ORAL Q6HR PRN for Nausea & Vomiting, TAB Oxycodone Hcl* (Oxycodone Hcl*) 5 Mg Capsule 5 MG ORAL Q6H PRN for For Pain, CAP (This prescription has been renewed) Pantoprazole* (Protonix*) 40 Mg Tablet.dr 40 MG ORAL DAILY, TAB (This prescription has been renewed) Polyethylene Glycol 3350* (Miralax*) 17 Gm Powd.pack 17 GM ORAL DAILY for CONSTIPATION, PACKET (This prescription has been renewed) Pregabalin* (Lyrica*) 75 Mg Capsule 75 MG ORAL TWICE A DAY for NERVE PAIN, CAP (This prescription has been renewed) Rosuvastatin Calcium* (Crestor*) 20 Mg Tablet 20 MG ORAL DAILY, TAB (This prescription has been renewed) Sennosides (Senna Laxative) 8.6 Mg Tablet 8.6 MG PO QHS for CONSTIPATION, TAB (This prescription has been renewed) Zinc Sulfate (Zinc Sulfate*) 220 Mg Capsule 220 MG ORAL DAILY for 30 Days, #30 CAP Discharge Condition Upon Discharge: improving Discharge Vital Signs Last Vital Signs Date Time Temp Pulse Resp B/P (MAP) Pulse Ox O2 Delivery O2 Flow Rate FiO2 07/20/19 11:01 97.9 72 21 132/69 (90) 95 07/20/19 10:11 Nasal Cannula 2.0 28 Discharge Disposition Patient was discharged to SNF Discharge Diagnoses: (1) Abdominal pain (2) Therapeutic opioid-induced constipation (OIC) (3) GERD (gastroesophageal reflux disease) Anjum Macedo MD Jul 20, 2019 12:55
[2019-07-20] MEDS ORDERED: Magnesium Oxide 400mg tab ORAL SCH (13:00)
--- NOTE | 2019-07-20 13:07 | NUR ---
CHARGE NURSE NOTE: K3.3. notified.
--- NOTE | 2019-07-20 13:30 | NUR ---
NURSE NOTES: CALLED [facility] AND SPOKE WITH RICKEY FOR REPORT. HOWEVER, ACCDG FROM RICKEY PATIENT WAS SCREENED FOR INFLUENZA B PRIOR ADMISSION @ [facility]. RESULT RELEASED ON THE July POSITIVE. THEN, STATED THAT WAS CALLED TO DR GUTIERREZ AND SHE SPOKE WITH DR ROBLEDO AND CLAIMED THAT SHE FAXED THE RESULT TO OUR CM DEPT. THEN, I CALLED [facility] TO REPORT THE DISCREPANCY. CALLED DR GUTIERREZ'S OFFICE AND SPOKE WITH DR MARKHAM AND HE WILL SPEAK TO CM RE: ABOVE ISSUE. ZHEN RUSS MADE AWARE
--- NOTE | 2019-07-20 14:36 | NUR ---
NURSE NOTES: JAZMYNE SORIANO CALLED BACK AND AWAITING FOR A CALL FROM [facility]. THERE WAS AN ERROR MADE @ [facility]. FAX NUMBER THAT WAS GIVEN DOES NOT EXIST AND WELL THE NAME, MACEY @ [facility] DE[facility] PER BO. AWAITS FOR A CALL BACK FROM BO FOR A ROOM NUMBER @ THE FACILITY. WILL CONT THE PLAN OF CARE.
[2019-07-20 16:04] VITALS: BP 155/87
--- NOTE | 2019-07-20 16:10 | NUR ---
DISCHARGE UPDATE CALLED [facility] AND SPOKE WITH CHANTELLE WHO PROVIDED NEW ROOM NUMBER. 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
--- NOTE | 2019-07-20 16:29 | NUR ---
NURSE NOTES: CALLED [facility] AND SPOKE WITH RICKEY FOR REPORT. INFORMED HER REGARDING ROOM NUMBER AND THE ETA. WILL CONT THE PLAN OF CARE.
--- NOTE | 2019-07-20 16:49 | General Progress Note ---
Assessment/Plan Status: stable, unchanged Assessment/Plan: 78-year-old female with PMH of COPD, O2 dependent, diastolic heart failure, came in from skilled nursing for abdominal pain with N/V x1. #Nausea/vomiting #Abdominal pain #Constipation Likely gastroenteritis No leukocytosis, afebrile on admission CT abd unremarkable for GI etiology check CTA A/P Dilaudid IV for severe pain cont. zofran prn, add Reglan for breakthrough nausea #Recent influenza B infection, asymptomatic currently -no indication for Tamiflu #Right hydronephrosis #Left hemorrhagic renal cyst #Nephrolithiasis #Hematuria UA with evidence of blood, leukocyte esterase, RBCs 2-4 CT abdomen revealed severe hydronephrosis of right kidney, nonobstructing, with ureteropelvic junction obstruction and hemorrhagic cyst Renal US reviewed Urology consult appreciated, no acute interventions at this time #Depression #Chronic pain #Anxiety disorder #Osteoarthritis Continue Lexapro Continue qhs Mirtazapine. Continue pregabalin 75 mg BID Continue home Dronabinol 2.5 mg BID PT ordered. Continue Clonazepam 0.5 mg BID Continue Oxycodone 5 mg q6h prn Psychiatry eval appreciated #Chronic respiratory failure on NC 2 L O2 #COPD Currently no acute exacerbation Continue O2 2L NC #HTN Cont home meds, lisinopril 20 daily, MTP 23 BID, amlodipine 10 qdaily #GERD cont. PPI DVT PPX - lovenox Time spent on encounter: 38 mins, >50% on counseling, coordination of care, additional 30 mins spent with chart review. Time of note doesn't reflect time of encounter. Subjective Date patient seen: Jul 20, 2019 Time patient seen: 16:00 ROS Limited/Unobtainable: No Constitutional: Denies: chills, fever Cardiovascular: Denies: chest pain Respiratory: Denies: cough, orthopnea, shortness of breath Allergies: Coded Allergies: [place] (Unverified Allergy, Mild, upset stomach, 02/10/19) TOMATO (Unverified Allergy, Mild, upset stomach, 02/10/19) TETRACYCLINE (Unverified Allergy, Unknown, 07/24/14) Subjective Follow up for abdominal pain, hydronephrosis, nephrolithiasis, constipation Abdominal pain improved. Intermittent nausea. No new complaints CTA abdomen without acute abnormality Apparently patient tested positive for influenza B three days ago, SNF not willing to take her back. She denies any fever, chills, cough or dyspnea. Objective Last 24 Hour Vital Signs Date Time Temp Pulse Resp B/P (MAP) Pulse Ox O2 Delivery O2 Flow Rate FiO2 07/20/19 16:04 97.8 108 18 155/87 (109) 95 07/20/19 12:59 97.9 07/20/19 12:00 97.6 83 18 152/60 (90) 95 07/20/19 11:01 97.9 72 21 132/69 (90) 95 07/20/19 10:11 73 18 96 Nasal Cannula 2.0 28 07/20/19 10:11 96 Nasal Cannula 2.0 28 07/20/19 10:11 75 18 96 Nasal Cannula 2.0 28 07/20/19 09:00 Nasal Cannula 2.0 07/20/19 08:07 137/80 07/20/19 08:00 98.7 69 20 136/72 (93) 96 07/20/19 08:00 101 07/20/19 04:00 97.5 85 20 137/80 (99) 98 07/20/19 04:00 86 07/20/19 03:58 97.3 07/20/19 00:00 97.3 91 20 106/60 (75) 97 07/20/19 00:00 84 07/19/19 22:25 98 Nasal Cannula 2.0 28 07/19/19 22:24 87 18 98 Nasal Cannula 2.0 28 07/19/19 22:24 89 20 98 Nasal Cannula 2.0 28 07/19/19 21:00 Nasal Cannula 2.0 07/19/19 20:00 98.4 105 20 136/68 (90) 98 Intake and Output 07/19/19 07/20/19 19:00 07:00 Intake Total 360 ml 150 ml Output Total 200 ml Balance 360 ml -50 ml Intake Oral 360 ml Other 150 ml Output Urine Total 200 ml # Voids 2 # Bowel Movements 1 Laboratory Tests 07/20/19 08:15: White Blood Count 9.4, Red Blood Count 3.67L, Hemoglobin 11.3L, Hematocrit 33.8L , Mean Corpuscular Volume 92, Mean Corpuscular Hemoglobin 30.8, Mean Corpuscular Hemoglobin Concent 33.5, Red Cell Distribution Width 11.9, Platelet Count 249, Mean Platelet Volume 5.3L, Neutrophils (%) (Auto) 52.8, Lymphocytes ( %) (Auto) 33.6, Monocytes (%) (Auto) 9.0, Eosinophils (%) (Auto) 3.9H, Basophils (%) (Auto) 0.8, Sodium Level 137, Potassium Level 3.3L, Chloride Level 97L, Carbon Dioxide Level 28, Anion Gap 12, Blood Urea Nitrogen 20H, Creatinine 0.7, Estimat Glomerular Filtration Rate > 60, Glucose Level 101, Calcium Level 9.7 Height (Feet): 5 Height (Inches): 4.00 Weight (Pounds): 173 General Appearance: no apparent distress, alert Respiratory/Chest: lungs clear, normal breath sounds, no respiratory distress Abdomen: non tender, soft Anjum Macedo MD Jul 20, 2019 16:49
--- NOTE | 2019-07-20 17:49 | NUR ---
NURSE NOTES: DISCHARGED VIA AMBULANCE TO [facility]. REMOVED TWO HEPLOCKS RAC AND RHAND. IN STABLE CONDITION. ON O2 2L VIA NC. NO ACUTE RESP DISTRESS NOTED. PERSONAL BELONGINGS NOTED.
[2019-07-20] MEDS ORDERED: D5NS 1000ml IV ONE (17:53)
[2019-07-20] MEDS ORDERED: Docusate 100mg cap ORAL SCH (18:00)
[2019-07-20] MEDS ORDERED: Magic Mouth Wash 60ml (Benadryl/Mylanta/Visc Lido) ORAL SCH (18:00)
[2019-07-20] MEDS ORDERED: Lactulose 20gm/30ml UDC ORAL SCH (18:00)
[2019-07-20] MEDS ORDERED: Flovent 110mcg Inhaler - 12gm INH SCH (22:00)
--- NOTE | 2019-07-20 23:58 | Psych Consult Progress Note ---
Psychiatry Progress Note Psychiatry Progress Note Medications alert, oriented times self, place, and situation. Mood is anxious. Affect is flat. Thought processes is concrete. Thought content, no suicidal or homicidal ideation. Cognition is intact. Insight and judgment is impaired. ASSESSMENT: [place] I: Anxiety disorder. Major depressive disorder. PLAN: 1. We will continue current medication. 2. Provide the patient with reality orientation and supportive therapy as needed. 3. Added Ativan p.r.n. 4. Remeron. 5. Klonopin. Allergies: Coded Allergies: [place] (Unverified Allergy, Mild, upset stomach, 02/10/19) TOMATO (Unverified Allergy, Mild, upset stomach, 02/10/19) TETRACYCLINE (Unverified Allergy, Unknown, 07/24/14) Objective Data Height (Feet): 5 Height (Inches): 4.00 Weight (Pounds): 173 Appearance: well groomed, disheveled Behavior Mannerisms: good eye contact Mental Status Exam - Affect: blunted Speech: clear Mental Status Exam - Thought P: illogical Assessment/Plan Status: stable, unchanged Wan Stern MD Jul 20, 2019 23:58
[2019-07-21] MEDS ORDERED: Lisinopril 20mg tab ORAL SCH (09:00)
[2019-07-21] MEDS ORDERED: Aspirin Baby 81mg ORAL SCH (09:00)
[2019-07-21] MEDS ORDERED: Enoxaparin 40mg Inj SUBQ SCH (09:00)
[2019-07-21] MEDS ORDERED: Calcium Carbonate 500mg w/Vit D 200iu tab ORAL SCH (09:00)
== END 2019-07-20 17:54 | DRG 694 ==
LOC: EDUNIT# 23:30 → EDBD 23:30 → EMR 23:48 → 2E 07-17 01:47 → EDBEDREQ 07-17 03:27 → 2E 07-17 05:11 → 4E 07-20 10:35 → 2E 07-20 10:36 → 4E 07-20 10:37
DX: N13.0 Hydronephrosis with ureteropelvic junction obstruction (principal); I50.32 Chronic diastolic (congestive) heart failure; J96.10 Chronic respiratory failure, unspecified whether with hypoxia or hypercapnia; I11.0 Hypertensive heart disease with heart failure; N28.1 Cyst of kidney, acquired; F41.9 Anxiety disorder, unspecified; F32.9 Major depressive disorder, single episode, unspecified; J44.9 Chronic obstructive pulmonary disease, unspecified; Z99.81 Dependence on supplemental oxygen; Z74.01 Bed confinement status; K52.9 Noninfective gastroenteritis and colitis, unspecified; N13.2 Hydronephrosis with renal and ureteral calculous obstruction; M19.90 Unspecified osteoarthritis, unspecified site; Z87.440 Personal history of urinary (tract) infections; K21.9 Gastro-esophageal reflux disease without esophagitis; K59.00 Constipation, unspecified
CPT/HCPCS: 36415; 74174; 74176; 76770; 80048; 80053; 81003; 83690; 83735; 84100; 84484; 85025; 87081; 94640; 96374; 99285; J2405; J2765; J8499

== ENCOUNTER 2019-08-18 17:59 | Inpatient (IN) | payer MEDICARE, OTHER ==
[~2019-08-18] VITALS: Ht 152.4 cm; Wt 55.8 kg
[~2019-08-18 17:59] MED LIST changes: +ASCORBIC ACID500 MG ORAL; +MIRTAZAPINE7.5 MG ORAL; +OXYCODONE HCL5 M2 ORAL
[2019-08-18] MEDS ORDERED: DICYCLOMINE HCL20 M1 PO (18:17)
[2019-08-18] MEDS ORDERED: CRESTOR20 MG ORAL (18:17)
[2019-08-18] MEDS ORDERED: MIRALAX17 G2 ORAL (18:17)
[2019-08-18] MEDS ORDERED: LEXAPRO20 MG ORAL (18:17)
[2019-08-18] MEDS ORDERED: AUGMENTIN 875-1 EAC1 ORAL (18:20)
[2019-08-18] MEDS ORDERED: ZITHROMAX250 MG ORAL (18:20)
[2019-08-18 19:10] VITALS: BP 140/72
[2019-08-18] MEDS ORDERED: Ketorolac 30mg Inj IV ONE (19:15)
[2019-08-18 19:36] LABS: BASOPHILS % (AUTO) 0.6 % (0.0-2.0); EOSINOPHILS % (AUTO) 0.4 % (0.0-3.0); HEMATOCRIT 34.7 % (37.0-47.0); LYMPHOCYTES % (AUTO) 22.1 % (20.0-45.0); MEAN CORPUSCULAR VOLUME 93 FL (80-99); MONOCYTES % (AUTO) 6.5 % (1.0-10.0); NEUTROPHILS % (AUTO) 70.4 % (45.0-75.0); PLATELET COUNT 137 K/UL (150-450); RED BLOOD COUNT 3.74 M/UL (4.20-5.40); RED CELL DISTRIBUTION WIDTH 12.9 % (11.6-14.8); WHITE BLOOD COUNT 4.3 K/UL (4.8-10.8)
[2019-08-18 19:56] LABS: ALANINE AMINOTRANSFERASE 34 U/L (12-78); ALBUMIN 3.7 G/DL (3.4-5.0); ALBUMIN/GLOBULIN RATIO 0.9 (1.0-2.7); ALKALINE PHOSPHATASE 112 U/L (46-116); ASPARTATE AMINO TRANSFERASE 33 U/L (15-37); BILIRUBIN,TOTAL 0.2 MG/DL (0.2-1.0); BLOOD UREA NITROGEN 16 mg/dL (7-18); CALCIUM 8.3 MG/DL (8.5-10.1); CARBON DIOXIDE 32 MMOL/L (21-32); CHLORIDE 90 MMOL/L (98-107); CKMB 1.1 NG/ML (0.0-3.6); CREATINE KINASE 62 U/L (26-308); CREATININE 0.7 MG/DL (0.55-1.30); POTASSIUM 4.1 MMOL/L (3.5-5.1); SODIUM 130 MMOL/L (136-145)
[2019-08-18 19:59] LABS: ANION GAP 8 mmol/L (5-15)
--- NOTE | 2019-08-18 20:01 | Emergency Room Report ---
History of Present Illness General Chief Complaint: Dyspnea/Respdistress Source: Medical Record Present Illness HPI 78-year-old female history of multiple medical conditions including COPD, chronic pain syndrome, spinal stenosis, presented for cough, shortness of breath , generalized weakness. Symptoms present for the past 2 days. Patient currently resides in a snf facility that has had positive coronavirus patients. She complains of body aches that are approximately 8 out of 10 nothing makes them better or worse. No reported fever. Allergies: Coded Allergies: [place] (Unverified Allergy, Mild, upset stomach, 02/10/19) TOMATO (Unverified Allergy, Mild, upset stomach, 02/10/19) TETRACYCLINE (Unverified Allergy, Unknown, 07/24/14) COVID-19 Screening Contact w/high risk pt: Yes Recent Travel to affected area: No Experienced COVID-19 symptoms?: Yes COVID-19 symptoms experienced: Fever (T>100.4F or >38C), Cough Patient History Reviewed Nursing Documentation: PMH: Agreed; PSxH: Agreed Nursing Documentation-PMH Hx Cardiac Problems: Yes Hx Hypertension: Yes Hx Asthma: Yes Hx COPD: Yes Hx Diabetes: Yes Hx Cancer: Yes Hx Gastrointestinal Problems: Yes - Gastritis, H. Pylori, colonic polyps Hx Neurological Problems: No Review of Systems All Other Systems: negative except mentioned in HPI Physical Exam Vital Signs Date Time Temp Pulse Resp B/P (MAP) Pulse Ox O2 Delivery O2 Flow Rate FiO2 08/18/19 18:01 99.1 102 18 140/72 (94) 94 Nasal Cannula 2.0 Sp02 EP Interpretation: reviewed, normal General Appearance: no apparent distress, Chronically Ill Head: normocephalic, atraumatic Eyes: bilateral eye PERRL, bilateral eye EOMI ENT: hearing grossly normal, moist mucus membranes Neck: full range of motion, supple Respiratory: no respiratory distress, no retraction, no wheezing, rhonchi Cardiovascular #1: normal peripheral pulses, regular rate, rhythm, no murmur Gastrointestinal: non tender, soft, non-distended, no guarding Neurologic: alert, oriented x3, no focal defects Skin: normal color, warm/dry Medical Decision Making Diagnostic Impression: Primary Impression: r/o Covid-19 Additional Impression: Shortness of breath ER Course Patient presented with cough, shortness of breath. She currently resides in a snf facility. Differential included but not limited to coronavirus infection, pneumonia, CHF, COPD exacerbation to name a few. She had no audible wheezing. She did have some rhonchi noted. Chest x-ray demonstrated cardiomegaly with bilateral lower lobe infiltrates. Patient given IV antibiotics. Patient will be admitted to the telemetry floor. Patient admitted under her primary care doctor. I spoke with Dr. Fawn mcphersoning admission. Laboratory Tests Test 08/18/19 17:00 White Blood Count 4.3 K/UL (4.8-10.8) L Red Blood Count 3.74 M/UL (4.20-5.40) L Hemoglobin 11.0 G/DL (12.0-16.0) L Hematocrit 34.7 % (37.0-47.0) L Mean Corpuscular Volume 93 FL (80-99) Mean Corpuscular Hemoglobin 29.5 PG (27.0-31.0) Mean Corpuscular Hemoglobin Concent 31.8 G/DL (32.0-36.0) L Red Cell Distribution Width 12.9 % (11.6-14.8) Platelet Count 137 K/UL (150-450) L Mean Platelet Volume 8.1 FL (6.5-10.1) Neutrophils (%) (Auto) 70.4 % (45.0-75.0) Lymphocytes (%) (Auto) 22.1 % (20.0-45.0) Monocytes (%) (Auto) 6.5 % (1.0-10.0) Eosinophils (%) (Auto) 0.4 % (0.0-3.0) Basophils (%) (Auto) 0.6 % (0.0-2.0) Sodium Level Pending Potassium Level Pending Chloride Level Pending Carbon Dioxide Level Pending Blood Urea Nitrogen Pending Creatinine Pending Estimated Glomerular Filtration Rate Pending Glucose Level Pending Lactic Acid Level 0.50 mmol/L (0.4-2.0) Calcium Level Pending Total Bilirubin Pending Aspartate Amino Transferase (AST) Pending Alanine Aminotransferase (ALT) Pending Alkaline Phosphatase Pending Total Creatine Kinase Pending Creatine Kinase MB Pending Troponin I 0.028 ng/mL (0.000-0.056) Pro-B-Type Natriuretic Peptide Pending Total Protein Pending Albumin Pending Globulin Pending Microbiology Date/Time Source Procedure Growth Status 08/18/19 19:00 Nasal Nares - Final Complete 08/18/19 19:00 Nasal Nares - Final Complete Lab Results Impression Laboratory Tests Test 08/18/19 17:00 White Blood Count 4.3 K/UL (4.8-10.8) L Red Blood Count 3.74 M/UL (4.20-5.40) L Hemoglobin 11.0 G/DL (12.0-16.0) L Hematocrit 34.7 % (37.0-47.0) L Mean Corpuscular Volume 93 FL (80-99) Mean Corpuscular Hemoglobin 29.5 PG (27.0-31.0) Mean Corpuscular Hemoglobin Concent 31.8 G/DL (32.0-36.0) L Red Cell Distribution Width 12.9 % (11.6-14.8) Platelet Count 137 K/UL (150-450) L Mean Platelet Volume 8.1 FL (6.5-10.1) Neutrophils (%) (Auto) 70.4 % (45.0-75.0) Lymphocytes (%) (Auto) 22.1 % (20.0-45.0) Monocytes (%) (Auto) 6.5 % (1.0-10.0) Eosinophils (%) (Auto) 0.4 % (0.0-3.0) Basophils (%) (Auto) 0.6 % (0.0-2.0) Sodium Level 130 MMOL/L (136-145) L Potassium Level 4.1 MMOL/L (3.5-5.1) Chloride Level 90 MMOL/L (98-107) L Carbon Dioxide Level 32 MMOL/L (21-32) Anion Gap 8 mmol/L (5-15) Blood Urea Nitrogen 16 mg/dL (7-18) Creatinine 0.7 MG/DL (0.55-1.30) Estimated Glomerular Filtration Rate > 60 mL/min (>60) Glucose Level 81 MG/DL (74-106) Lactic Acid Level 0.50 mmol/L (0.4-2.0) Calcium Level 8.3 MG/DL (8.5-10.1) L Total Bilirubin 0.2 MG/DL (0.2-1.0) Aspartate Amino Transferase (AST) 33 U/L (15-37) Alanine Aminotransferase (ALT) 34 U/L (12-78) Alkaline Phosphatase 112 U/L (46-116) Total Creatine Kinase 62 U/L (26-308) Creatine Kinase MB 1.1 NG/ML (0.0-3.6) Creatine Kinase MB Relative Index 1.7 Troponin I 0.028 ng/mL (0.000-0.056) Pro-B-Type Natriuretic Peptide 329 pg/mL (0-125) H Total Protein 7.8 G/DL (6.4-8.2) Albumin 3.7 G/DL (3.4-5.0) Globulin 4.1 g/dL Albumin/Globulin Ratio 0.9 (1.0-2.7) L Microbiology Date/Time Source Procedure Growth Status 08/18/19 19:00 Nasal Nares - Final Complete 08/18/19 19:00 Nasal Nares - Final Complete EKG Diagnostic Results Rate: normal Rhythm: NSR ST Segments: no acute changes Rhythm Strip Diag. Results EP Interpretation: yes Rate: 95 Rhythm: NSR, no PVC's, no ectopy Chest X-Ray Diagnostic Results Chest X-Ray Diagnostic Results : Chest X-Ray Ordered: Yes # of Views/Limited/Complete: 1 View Indication: Shortness of Breath EP Interpretation: Yes Interpretation: other - Bilateral lower lobe infiltrates, cardiomegaly, no pneumothorax Last Vital Signs Date Time Temp Pulse Resp B/P (MAP) Pulse Ox O2 Delivery O2 Flow Rate FiO2 08/18/19 19:50 99.1 08/18/19 19:10 102 18 140/72 94 Nasal Cannula 2.0 Status: unchanged Disposition: ADMITTED INPATIENT Condition: Serious Referrals: Delia Nix MD (PCP) Demond Cotto M.D. Aug 18, 2019 20:01
--- NOTE | 2019-08-18 20:29 | Diagnostic Imaging Report ---
Indication: Shortness of breath Technique: One view of the chest Comparison: 06/11/2019 Findings: The heart is enlarged. There is bilateral interstitial congestion. There is also some patchy airspace disease in the perihilar regions. There is pleural thickening versus fluid in the left inferolateral hemithorax. Surgical clips are seen adjacent to the right pulmonary hilum. Numerous surgical clips are seen in the right axilla. Findings are similar to the prior exam Impression: Findings likely represent congestive heart failure with interstitial edema, patchy airspace edema, and a left pleural effusion. However, similarity to the prior exam raises possibility that there is also a chronic component.
[2019-08-18] MEDS: Docusate 100mg cap ORAL SCH (21:00)
[2019-08-18] MEDS ORDERED: Miralax 17gm pkt ORAL PRN (21:00)
[2019-08-18 21:26] VITALS: BP 135/77
[2019-08-18] MEDS ORDERED: Azithromycin 250mg tab ORAL SCH (23:00)
[2019-08-19] VITALS: BP 127/56
[2019-08-19] MEDS ORDERED: Albuterol 90mcg Inhaler 8gm INH SCH
[2019-08-19] MEDS ORDERED: Ipratropium Bromide Inhaler INH SCH
[2019-08-19] MEDS: cefTRIAXone 1 GM in NS 55 ML IVPB SCH ×2 (00:35→23:27)
[2019-08-19] MEDS ORDERED: Benzonatate 100mg Perles ORAL PRN (01:30)
[2019-08-19] MEDS ORDERED: HydrALAZINE 10mg Tab ORAL PRN ×3 (01:30)
[2019-08-19] MEDS ORDERED: Methocarbamol 500mg tab ORAL PRN (01:30)
[2019-08-19] MEDS ORDERED: Albuterol 90mcg Inhaler 8gm INH PRN (03:15)
[2019-08-19 04:00] VITALS: BP 155/72
[2019-08-19] MEDS ORDERED: Azithromycin 250mg tab ORAL SCH (04:00)
[2019-08-19] MEDS: Heparin 5000 units/ml inj SUBQ SCH ×4 (07:00→22:00)
[2019-08-19 07:21] LABS: ANION GAP 12 mmol/L (5-15); BLOOD UREA NITROGEN 16 mg/dL (7-18); CALCIUM 8.7 MG/DL (8.5-10.1); CARBON DIOXIDE 27 MMOL/L (21-32); CHLORIDE 94 MMOL/L (98-107); CREATININE 0.6 MG/DL (0.55-1.30); SODIUM 133 MMOL/L (136-145)
[2019-08-19 07:26] LABS: BASOPHILS % (AUTO) 0.6 % (0.0-2.0); EOSINOPHILS % (AUTO) 0.5 % (0.0-3.0); HEMATOCRIT 31.5 % (37.0-47.0); HEMOGLOBIN 10.3 G/DL (12.0-16.0); LYMPHOCYTES % (AUTO) 33.2 % (20.0-45.0); MEAN CORPUSCULAR VOLUME 90 FL (80-99); MONOCYTES % (AUTO) 8.6 % (1.0-10.0); PLATELET COUNT 138 K/UL (150-450); RED BLOOD COUNT 3.48 M/UL (4.20-5.40); RED CELL DISTRIBUTION WIDTH 14.5 % (11.6-14.8); WHITE BLOOD COUNT 3.7 K/UL (4.8-10.8)
[2019-08-19] MEDS: Ipratropium Bromide Inhaler INH SCH ×3 (07:36→19:00)
[2019-08-19] MEDS: Flovent 110mcg Inhaler - 12gm INH SCH (07:37)
[2019-08-19 08:00] VITALS: BP 143/56
[2019-08-19] MEDS: Aspirin Baby 81mg ORAL SCH (08:56)
[2019-08-19] MEDS: Docusate 100mg cap ORAL SCH ×2 (08:56→21:39)
[2019-08-19] MEDS: Flonase Nasal Inhaler 16gm NASAL SCH (08:57)
[2019-08-19] MEDS: Lisinopril 20mg tab ORAL SCH (08:58)
[2019-08-19] MEDS: Magnesium Oxide 400mg tab ORAL SCH (08:58)
[2019-08-19] MEDS ORDERED: Azithromycin 500 MG in NS 275 ML IV SCH (09:00)
[2019-08-19] MEDS ORDERED: Docusate 100mg cap ORAL SCH (09:00)
[2019-08-19] MEDS: Lyrica 75mg cap ORAL SCH ×2 (09:00→17:06)
[2019-08-19] MEDS: Calcium Carbonate 500mg w/Vit D 200iu tab ORAL SCH (09:00)
[2019-08-19] MEDS: Zinc Sulfate 220mg cap ORAL SCH (09:00)
[2019-08-19] MEDS: Ascorbic Acid 500mg tab ORAL SCH (09:00)
[2019-08-19] MEDS: clonazePAM 0.5mg tab ORAL SCH ×2 (09:00→17:05)
[2019-08-19] MEDS: Dronabinol 2.5mg Cap ORAL SCH ×2 (09:00→17:06)
[2019-08-19] MEDS: Miralax 17gm pkt ORAL SCH (09:00)
[2019-08-19] MEDS ORDERED: Miralax 17gm pkt ORAL SCH (09:00)
--- NOTE | 2019-08-19 09:43 | History and Physical ---
History of Present Illness General Date patient seen: Aug 19, 2019 Time patient seen: 07:00 Reason for Hospitalization: Dyspnea/Respdistress Present Illness HPI 78 year old woman with COPD, chronic respiratory failure, O2 dependent, chronic diastolic heart failure, HTN,h/o multiple UTIs, chronic pain, anxiety who presented from SNF with dry cough, shortness of breath, generalized weakness x 2 days. Patient resides in a group home facility that has had positive coronavirus patients. She complains of body aches that are approximately 8 out of 10 nothing makes them better or worse. No reported fever or chills. In ED CXR showed "likely represent congestive heart failure with interstitial edema, patchy airspace edema, and a left pleural effusion. However, similarity to the prior exam raises possibility that there is also a chronic component. She was started on IV antibiotics for possible CAP, admitted for rule out COVID-19. Patient reports cough and body aches. Allergies: Coded Allergies: Frio (Unverified Allergy, Mild, upset stomach, 02/10/19) TOMATO (Unverified Allergy, Mild, upset stomach, 02/10/19) TETRACYCLINE (Unverified Allergy, Unknown, 07/24/14) COVID-19 Screening Contact w/high risk pt: Yes Recent Travel to affected area: No Experienced COVID-19 symptoms?: Yes COVID-19 symptoms experienced: Fever (T>100.4F or >38C), Cough Medication History Scheduled Amlodipine Besylate* (Amlodipine Besylate*), 10 MG ORAL DAILY, (Reported) Amoxicillin/Potassium Clav 875-125* (Augmentin 875-125 Tablet*), 1 TAB ORAL TWICE A DAY, (Reported) Ascorbic Acid* (Ascorbic Acid*), 500 MG ORAL DAILY, (Reported) Aspirin* (Aspirin*), 81 MG ORAL DAILY, (Reported) Azithromycin* (Zithromax*), 250 MG ORAL DAILY, (Reported) Calcium Carbonate/Vitamin D3 (Oysco 500+D Tablet), 1 EACH PO DAILY, (Reported) Clonazepam* (Klonopin*), 0.5 MG ORAL BID Dicyclomine Hcl (Dicyclomine Hcl), 20 MG PO DAILY, (Reported) Docusate Sodium* (Colace*), 100 MG ORAL BID, (Reported) Dronabinol* (Marinol*), 2.5 MG ORAL BID Escitalopram Oxalate* (Lexapro*), 20 MG ORAL DAILY, (Reported) Escitalopram Oxalate* (Lexapro*), 20 MG ORAL DAILY, (Reported) Ferrous Sulfate* (Ferrous Sulfate*), 325 MG ORAL DAILY, (Reported) Fluticasone Propionate (Flovent Hfa), 2 PUFFS INH DAILY, (Reported) Fluticasone Propionate (Flonase Allergy Relief), 1 SPRAYS NS DAILY, (Reported) Lisinopril (Lisinopril*), 20 MG ORAL DAILY, (Reported) Magnesium (Magnesium), 200 MG PO QD, (Reported) Metoprolol Tartrate (Metoprolol Tartrate), 25 MG ORAL Q12HR Mirtazapine* (Mirtazapine*), 7.5 MG ORAL BEDTIME, (Reported) Montelukast Sodium* (Montelukast Sodium*), 10 MG ORAL DAILY, (Reported) Multivitamin (Multivitamins), 1 EACH PO QD, (Reported) Pantoprazole* (Protonix*), 40 MG ORAL DAILY, (Reported) Polyethylene Glycol 3350* (Miralax*), 17 GM ORAL DAILY, (Reported) Polyethylene Glycol 3350* (Miralax*), 17 GM ORAL DAILY, (Reported) Pregabalin* (Lyrica*), 75 MG ORAL TWICE A DAY, (Reported) Rosuvastatin Calcium* (Crestor*), 20 MG ORAL DAILY, (Reported) Rosuvastatin Calcium* (Crestor*), 20 MG ORAL BEDTIME, (Reported) Sennosides (Senna Laxative), 8.6 MG PO QHS, (Reported) Zinc Sulfate (Zinc Sulfate*), 220 MG ORAL DAILY [Bevespi Aerosphere ], 2 PUFFS INH BID, (Reported) Scheduled PRN Acetaminophen* (Acetaminophen 325MG Tablet*), 650 MG ORAL Q4H PRN for Mild Pain (Pain Scale 1-3), (Reported) Acetylcysteine* (Acetylcysteine*), 200 MG HHN Q4HR PRN for CONGESTION, (Reported ) Benzonatate* (Tessalon Perle*), 100 MG ORAL THREE TIMES A DAY PRN for For Cough, (Reported) Bisacodyl (Dulcolax), 10 MG RC PRN PRN for Constipation, (Reported) Ipratropium Austin (Atrovent Hfa), 1 UNIT HHN Q6HR PRN for SOB/WHEEZING, ( Reported) Lactulose (Lactulose*), 30 ML ORAL DAILY PRN for Constipation, (Reported) Levalbuterol Hcl (Xopenex*), 0.63 MG HHN Q6H PRN for SOB/WHEEZING, (Reported) Mag Hydrox/Al Hydrox/Simeth* (Advanced Antacid Liquid*), 20 ML ORAL Q4HR PRN for INDIGESTION, (Reported) Methocarbamol* (Robaxin-500*), 500 MG ORAL Q6H PRN Ondansetron* (Zofran*), 4 MG ORAL Q6HR PRN for Nausea & Vomiting, (Reported) Oxycodone Hcl* (Oxycodone Hcl*), 5 MG ORAL Q6H PRN for For Pain, (Reported) Patient History Healthcare decision maker Resuscitation status Full Code Advanced Directive on File Review of Systems Constitutional: Denies: chills, fever ENT: Denies: ear pain Respiratory: Reports: cough, shortness of breath, wheezing Cardiovascular: Denies: chest pain, edema Gastrointestinal: Denies: abdominal pain Musculoskeletal: Reports: back pain Skin: Denies: rash Neurological: Denies: headache Endocrine: Denies: excessive sweating Physical Exam General Appearance: no apparent distress, alert HEENT: atraumatic, anicteric Neck: normal alignment, supple Respiratory/Chest: no respiratory distress, no accessory muscle use, other - Bilateral rhonchi Cardiovascular/Chest: normal rate, regular rhythm Abdomen: non tender, soft Last 24 Hour Vital Signs Date Time Temp Pulse Resp B/P (MAP) Pulse Ox O2 Delivery O2 Flow Rate FiO2 08/19/19 09:00 Nasal Cannula 4.0 08/19/19 08:58 96 143/56 08/19/19 08:58 143/56 08/19/19 08:58 96 143/56 08/19/19 08:00 97.5 96 20 143/56 (85) 96 08/19/19 07:45 98 22 97 Nasal Cannula 2.0 28 08/19/19 07:44 99 22 96 Nasal Cannula 2.0 28 08/19/19 04:00 96.8 96 20 155/72 (99) 90 08/19/19 04:00 2.0 08/19/19 00:00 2.0 08/19/19 00:00 98.2 93 19 127/56 (79) 96 08/18/19 23:00 Nasal Cannula 2.0 08/18/19 22:30 99.1 100 22 145/89 97 Nasal Cannula 2.0 08/18/19 21:26 99.1 99 16 135/77 94 Nasal Cannula 2.0 08/18/19 19:50 99.1 08/18/19 19:10 99.1 102 18 140/72 94 Nasal Cannula 2.0 08/18/19 19:10 102 18 Nasal Cannula 2.0 08/18/19 18:01 99.1 102 18 140/72 (94) 94 Nasal Cannula 2.0 Intake and Output 08/18/19 08/19/19 19:00 07:00 Intake Total 350 ml Output Total 1 ml Balance 349 ml Intake Oral 0 ml IV Total 350 ml Output Urine Total 1 ml Stool Total 0 ml # Voids 100 # Bowel Movements 1 Laboratory Tests Test 08/18/19 17:00 08/19/19 05:40 White Blood Count 4.3 K/UL (4.8-10.8) L 3.7 K/UL (4.8-10.8) L Red Blood Count 3.74 M/UL (4.20-5.40) L 3.48 M/UL (4.20-5.40) L Hemoglobin 11.0 G/DL (12.0-16.0) L 10.3 G/DL (12.0-16.0) L Hematocrit 34.7 % (37.0-47.0) L 31.5 % (37.0-47.0) L Mean Corpuscular Volume 93 FL (80-99) 90 FL (80-99) Mean Corpuscular Hemoglobin 29.5 PG (27.0-31.0) 29.5 PG (27.0-31.0) Mean Corpuscular Hemoglobin Concent 31.8 G/DL (32.0-36.0) L 32.7 G/DL (32.0-36.0) Red Cell Distribution Width 12.9 % (11.6-14.8) 14.5 % (11.6-14.8) Platelet Count 137 K/UL (150-450) L 138 K/UL (150-450) L Mean Platelet Volume 8.1 FL (6.5-10.1) 8.5 FL (6.5-10.1) Neutrophils (%) (Auto) 70.4 % (45.0-75.0) 57.0 % (45.0-75.0) Lymphocytes (%) (Auto) 22.1 % (20.0-45.0) 33.2 % (20.0-45.0) Monocytes (%) (Auto) 6.5 % (1.0-10.0) 8.6 % (1.0-10.0) Eosinophils (%) (Auto) 0.4 % (0.0-3.0) 0.5 % (0.0-3.0) Basophils (%) (Auto) 0.6 % (0.0-2.0) 0.6 % (0.0-2.0) Sodium Level 130 MMOL/L (136-145) L 133 MMOL/L (136-145) L Potassium Level 4.1 MMOL/L (3.5-5.1) 4.0 MMOL/L (3.5-5.1) Chloride Level 90 MMOL/L (98-107) L 94 MMOL/L (98-107) L Carbon Dioxide Level 32 MMOL/L (21-32) 27 MMOL/L (21-32) Anion Gap 8 mmol/L (5-15) 12 mmol/L (5-15) Blood Urea Nitrogen 16 mg/dL (7-18) 16 mg/dL (7-18) Creatinine 0.7 MG/DL (0.55-1.30) 0.6 MG/DL (0.55-1.30) Estimat Glomerular Filtration Rate > 60 mL/min (>60) > 60 mL/min (>60) Glucose Level 81 MG/DL (74-106) 88 MG/DL (74-106) Lactic Acid Level 0.50 mmol/L (0.4-2.0) Calcium Level 8.3 MG/DL (8.5-10.1) L 8.7 MG/DL (8.5-10.1) Total Bilirubin 0.2 MG/DL (0.2-1.0) Aspartate Amino Transf (AST/SGOT) 33 U/L (15-37) Alanine Aminotransferase (ALT/SGPT) 34 U/L (12-78) Alkaline Phosphatase 112 U/L (46-116) Total Creatine Kinase 62 U/L (26-308) Creatine Kinase MB 1.1 NG/ML (0.0-3.6) Creatine Kinase MB Relative Index 1.7 Troponin I 0.028 ng/mL (0.000-0.056) 0.009 ng/mL (0.000-0.056) Pro-B-Type Natriuretic Peptide 329 pg/mL (0-125) H Total Protein 7.8 G/DL (6.4-8.2) Albumin 3.7 G/DL (3.4-5.0) Globulin 4.1 g/dL Albumin/Globulin Ratio 0.9 (1.0-2.7) L Magnesium Level 2.4 MG/DL (1.8-2.4) Microbiology Date/Time Source Procedure Growth Status 08/18/19 19:00 Nasal Nares - Final Complete 08/18/19 19:00 Nasal Nares - Final Complete Height (Feet): 5 Height (Inches): 0.00 Weight (Pounds): 100 Medications Current Medications Medications (Trade) Dose Ordered Sig/Wilner Route PRN Reason Start Time Stop Time Status Last Admin Dose Admin Acetaminophen (Tylenol) 650 mg Q4H PRN ORAL Mild Pain (Pain Scale 1-3) 08/19/19 01:30 09/18/19 01:29 08/19/19 03:35 Al Hydroxide/Mg Hydroxide (Mylanta II) 20 ml Q4H PRN ORAL INDIGESTION 08/19/19 01:30 09/18/19 01:29 Albuterol Sulfate (Proventil MDI) 2 puff Q6HRT PRN INH Shortness of Breath 08/19/19 03:15 11/17/19 03:14 Amlodipine Besylate (Norvasc) 10 mg DAILY ORAL 08/19/19 09:00 09/18/19 08:59 08/19/19 08:58 Ascorbic Acid (Vitamin C) 500 mg DAILY ORAL 08/19/19 09:00 09/18/19 08:59 Aspirin (ASA) 81 mg DAILY ORAL 08/19/19 09:00 10/03/19 08:59 Atorvastatin Calcium (Lipitor) 40 mg BEDTIME ORAL 08/19/19 21:00 11/17/19 20:59 Azithromycin (Zithromax) 250 mg Q24H ORAL 08/19/19 04:00 08/26/19 03:59 08/19/19 03:34 Benzonatate (Tessalon Perles) 100 mg TIDPRN PRN ORAL cough 08/18/19 21:15 09/17/19 21:14 Bisacodyl (Dulcolax) 10 mg DAILY PRN RECTAL Constipation 08/19/19 01:30 11/17/19 01:29 Calcium/Vitamin D (OsCal D) 1 tab DAILY ORAL 08/19/19 09:00 11/17/19 08:59 Ceftriaxone Sodium 1 gm/ Sodium Chloride 55 ml @ 110 mls/hr Q24HRS IVPB 08/18/19 23:00 08/25/19 22:59 08/19/19 00:35 Clonazepam (KlonoPIN) 0.5 mg BID ORAL 08/19/19 09:00 08/26/19 08:59 Dextrose (Dextrose 50%) 25 ml Q30M PRN IV Hypoglycemia 08/18/19 21:00 11/16/19 20:59 Dextrose (Dextrose 50%) 50 ml Q30M PRN IV Hypoglycemia 08/18/19 21:00 11/16/19 20:59 Docusate Sodium (Colace) 100 mg EVERY 12 HOURS ORAL 08/18/19 21:00 09/17/19 20:59 Dronabinol (Marinol) 2.5 mg BID ORAL 08/19/19 09:00 11/17/19 08:59 Ferrous Sulfate (Feosol) 325 mg DAILY ORAL 08/19/19 09:00 11/17/19 08:59 Fluticasone Propionate (Flonase) 1 spray DAILY NASAL 08/19/19 09:00 09/18/19 08:59 08/19/19 08:57 Fluticasone Propionate (Flovent 110 mcg) 2 puff DAILY INH 08/19/19 09:00 09/18/19 08:59 08/19/19 07:37 Heparin Sodium (Porcine) (Heparin 5000 units/ml) 5,000 units EVERY 8 HOURS SUBQ 08/19/19 00:00 10/03/19 00:00 Hydralazine HCl (Apresoline) 10 mg Q6H PRN ORAL For High Blood Pressure 08/19/19 01:30 11/17/19 01:29 Ipratropium Austin (Atrovent Inh) 1 puffs Q6HRT INH 08/19/19 07:00 09/18/19 06:59 08/19/19 07:36 Lactulose (Cephulac) 20 gm DAILY PRN ORAL Constipation 08/19/19 01:30 09/18/19 01:29 Lisinopril (PriniviL) 20 mg DAILY ORAL 08/19/19 09:00 09/18/19 08:59 08/19/19 08:58 Magnesium Oxide (Mag-Ox 400mg) 200 mg DAILY ORAL 08/19/19 09:00 09/18/19 08:59 08/19/19 08:58 Methocarbamol (Robaxin) 500 mg Q6H PRN ORAL MUSCLE SPASM 08/19/19 01:30 09/18/19 01:29 Metoprolol Tartrate (Lopressor) 25 mg Q12HR ORAL 08/19/19 09:00 11/17/19 08:59 08/19/19 08:58 Mirtazapine (Remeron) 7.5 mg BEDTIME ORAL 08/19/19 21:00 11/17/19 20:59 Montelukast Sodium (Singulair) 10 mg QPM ORAL 08/19/19 16:30 11/17/19 16:29 Multivitamins (Multivitamins) 1 tab DAILY ORAL 08/19/19 09:00 09/18/19 08:59 Non-Formulary Medication (Non-Formulary Med) 1 ea DAILY ORAL 08/19/19 09:00 09/18/19 08:59 UNV Ondansetron HCl (Zofran) 4 mg Q6H PRN IVP Nausea & Vomiting 08/18/19 21:00 09/17/19 20:59 08/19/19 08:58 Ondansetron HCl (Zofran) 4 mg Q6H PRN ORAL Nausea & Vomiting 08/19/19 01:30 09/18/19 01:29 Oxycodone HCl (Roxicodone) 5 mg Q6H PRN ORAL Severe Pain (Pain Scale 7-10) 08/19/19 01:30 08/26/19 01:29 Pantoprazole (Protonix) 40 mg DAILY ORAL 08/19/19 09:00 09/18/19 08:59 08/19/19 08:58 Polyethylene Glycol (Miralax) 17 gm DAILY ORAL 08/19/19 09:00 09/18/19 08:59 Polyethylene Glycol (Miralax) 17 gm DAILYPRN PRN ORAL Constipation 08/18/19 21:00 09/17/19 20:59 Pregabalin (Lyrica) 75 mg TWICE A DAY ORAL 08/19/19 09:00 10/03/19 08:59 Sennosides (Senokot) 8.6 mg QHS ORAL 08/19/19 21:00 09/18/19 20:59 Sodium Chloride 1,000 ml @ 50 mls/hr Q20H IV 08/18/19 21:00 08/19/19 20:59 08/18/19 23:59 Zinc Sulfate (Zinc Sulfate) 220 mg DAILY ORAL 08/19/19 09:00 11/17/19 08:59 Assessment/Plan Assessment/Plan: 78 year old woman SNF resident with chronic resp failure due to COPD, HTN, chronic dCHF, chronic pain, depression, anxiety, chronic right hydronephrosis who presented fron SNF with dyspnea, cough body aches, rule out COVID-19/ #Acute on chronic hypoxic resp failure #Acute bronchitis #Rule out COVID-19 #COPD -admit to telemetry -Inhaled bronchodilators prn -Continue supplemental oxygen -Follow up COVID-19 testing -Will defer systemic steroid use to Pulm -ID and Pulm consulted #HTN #Chronic diastolic CHF Cont outpatient meds isinopril 20 daily, MTP 23 BID, amlodipine 10 qdaily #Depression #Chronic pain #Anxiety disorder #Osteoarthritis Continue Lexapro Continue qhs Mirtazapine. Continue pregabalin 75 mg BID Continue home Dronabinol 2.5 mg BID Continue Clonazepam 0.5 mg BID Continue Oxycodone 5 mg q6h prn #GERD cont. PPI #Chronic right hydronephrosis #Left hemorrhagic renal cyst #Nephrolithiasis #Hematuria I spent 70 minutes on this patient's case, and 35% was dedicated to counseling and/or care coordination witch included communication with RN, consulting MDs, case management I spent an additional 35 minutes on review of medical records including prior hospital records, consult notes, progress notes, procedures, imaging, labs, hemodynamics, and other clinical documentation. Anjum Macedo MD Aug 19, 2019 09:43
[2019-08-19 12:00] VITALS: BP 158/76
--- NOTE | 2019-08-19 12:09 | Consultation ---
History of Present Illness General Date patient seen: Aug 19, 2019 Chief Complaint: Dyspnea/Respdistress Present Illness HPI 78 year old woman with COPD, chronic respiratory failure, O2 dependent, chronic diastolic heart failure, HTN,h/o multiple UTIs, chronic pain, anxiety who presented from [facility] with dry cough, shortness of breath, generalized weakness x 2 days. Patient resides in a custodial facility that has had positive coronavirus patients. She complains of body aches. No reported fever or chills. In ED CXR showed "likely represent congestive heart failure with interstitial edema, patchy airspace edema, and a left pleural effusion. However , similarity to the prior exam raises possibility that there is also a chronic component. She was started on IV antibiotics for possible CAP, admitted for rule out COVID-19. Patient reports cough and body aches. Sodium on presentation noted to be 130- Allergies: Coded Allergies: [place] (Unverified Allergy, Mild, upset stomach, 02/10/19) TOMATO (Unverified Allergy, Mild, upset stomach, 02/10/19) TETRACYCLINE (Unverified Allergy, Unknown, 07/24/14) Medication History Scheduled Amlodipine Besylate* (Amlodipine Besylate*), 10 MG ORAL DAILY, (Reported) Amoxicillin/Potassium Clav 875-125* (Augmentin 875-125 Tablet*), 1 TAB ORAL TWICE A DAY, (Reported) Ascorbic Acid* (Ascorbic Acid*), 500 MG ORAL DAILY, (Reported) Aspirin* (Aspirin*), 81 MG ORAL DAILY, (Reported) Azithromycin* (Zithromax*), 250 MG ORAL DAILY, (Reported) Calcium Carbonate/Vitamin D3 (Oysco 500+D Tablet), 1 EACH PO DAILY, (Reported) Clonazepam* (Klonopin*), 0.5 MG ORAL BID Dicyclomine Hcl (Dicyclomine Hcl), 20 MG PO DAILY, (Reported) Docusate Sodium* (Colace*), 100 MG ORAL BID, (Reported) Dronabinol* (Marinol*), 2.5 MG ORAL BID Escitalopram Oxalate* (Lexapro*), 20 MG ORAL DAILY, (Reported) Escitalopram Oxalate* (Lexapro*), 20 MG ORAL DAILY, (Reported) Ferrous Sulfate* (Ferrous Sulfate*), 325 MG ORAL DAILY, (Reported) Fluticasone Propionate (Flovent Hfa), 2 PUFFS INH DAILY, (Reported) Fluticasone Propionate (Flonase Allergy Relief), 1 SPRAYS NS DAILY, (Reported) Lisinopril (Lisinopril*), 20 MG ORAL DAILY, (Reported) Magnesium (Magnesium), 200 MG PO QD, (Reported) Metoprolol Tartrate (Metoprolol Tartrate), 25 MG ORAL Q12HR Mirtazapine* (Mirtazapine*), 7.5 MG ORAL BEDTIME, (Reported) Montelukast Sodium* (Montelukast Sodium*), 10 MG ORAL DAILY, (Reported) Multivitamin (Multivitamins), 1 EACH PO QD, (Reported) Pantoprazole* (Protonix*), 40 MG ORAL DAILY, (Reported) Polyethylene Glycol 3350* (Miralax*), 17 GM ORAL DAILY, (Reported) Polyethylene Glycol 3350* (Miralax*), 17 GM ORAL DAILY, (Reported) Pregabalin* (Lyrica*), 75 MG ORAL TWICE A DAY, (Reported) Rosuvastatin Calcium* (Crestor*), 20 MG ORAL DAILY, (Reported) Rosuvastatin Calcium* (Crestor*), 20 MG ORAL BEDTIME, (Reported) Sennosides (Senna Laxative), 8.6 MG PO QHS, (Reported) Zinc Sulfate (Zinc Sulfate*), 220 MG ORAL DAILY [Bevespi Aerosphere ], 2 PUFFS INH BID, (Reported) Scheduled PRN Acetaminophen* (Acetaminophen 325MG Tablet*), 650 MG ORAL Q4H PRN for Mild Pain (Pain Scale 1-3), (Reported) Acetylcysteine* (Acetylcysteine*), 200 MG HHN Q4HR PRN for CONGESTION, (Reported ) Benzonatate* (Tessalon Perle*), 100 MG ORAL THREE TIMES A DAY PRN for For Cough, (Reported) Bisacodyl (Dulcolax), 10 MG RC PRN PRN for Constipation, (Reported) Ipratropium [place] (Atrovent Hfa), 1 UNIT HHN Q6HR PRN for SOB/WHEEZING, ( Reported) Lactulose (Lactulose*), 30 ML ORAL DAILY PRN for Constipation, (Reported) Levalbuterol Hcl (Xopenex*), 0.63 MG HHN Q6H PRN for SOB/WHEEZING, (Reported) Mag Hydrox/Al Hydrox/Simeth* (Advanced Antacid Liquid*), 20 ML ORAL Q4HR PRN for INDIGESTION, (Reported) Methocarbamol* (Robaxin-500*), 500 MG ORAL Q6H PRN Ondansetron* (Zofran*), 4 MG ORAL Q6HR PRN for Nausea & Vomiting, (Reported) Oxycodone Hcl* (Oxycodone Hcl*), 5 MG ORAL Q6H PRN for For Pain, (Reported) Patient History Healthcare decision maker Resuscitation status Full Code Advanced Directive on File Review of Systems All Other Systems: negative except mentioned in HPI Physical Exam General Appearance: no apparent distress Lines, tubes and drains: peripheral Neck: non-tender Respiratory/Chest: chest wall non-tender, lungs clear Cardiovascular/Chest: normal peripheral pulses, normal rate, regular rhythm Abdomen: normal bowel sounds, non tender, soft Neurologic: alert, oriented x 3 Last 24 Hour Vital Signs Date Time Temp Pulse Resp B/P (MAP) Pulse Ox O2 Delivery O2 Flow Rate FiO2 08/19/19 09:00 Nasal Cannula 4.0 08/19/19 09:00 2.0 08/19/19 08:58 96 143/56 08/19/19 08:58 143/56 08/19/19 08:58 96 143/56 08/19/19 08:00 97.5 96 20 143/56 (85) 96 08/19/19 08:00 99 08/19/19 07:45 98 22 97 Nasal Cannula 2.0 28 08/19/19 07:44 99 22 96 Nasal Cannula 2.0 28 08/19/19 04:00 96.8 96 20 155/72 (99) 90 08/19/19 04:00 2.0 08/19/19 00:00 2.0 08/19/19 00:00 98.2 93 19 127/56 (79) 96 08/18/19 23:00 Nasal Cannula 2.0 08/18/19 22:30 99.1 100 22 145/89 97 Nasal Cannula 2.0 08/18/19 21:26 99.1 99 16 135/77 94 Nasal Cannula 2.0 08/18/19 19:50 99.1 08/18/19 19:10 99.1 102 18 140/72 94 Nasal Cannula 2.0 08/18/19 19:10 102 18 Nasal Cannula 2.0 08/18/19 18:01 99.1 102 18 140/72 (94) 94 Nasal Cannula 2.0 Intake and Output 08/18/19 08/19/19 19:00 07:00 Intake Total 350 ml Output Total 1 ml Balance 349 ml Intake Oral 0 ml IV Total 350 ml Output Urine Total 1 ml Stool Total 0 ml # Voids 100 # Bowel Movements 1 Laboratory Tests Test 08/18/19 17:00 08/19/19 05:40 White Blood Count 4.3 K/UL (4.8-10.8) L 3.7 K/UL (4.8-10.8) L Red Blood Count 3.74 M/UL (4.20-5.40) L 3.48 M/UL (4.20-5.40) L Hemoglobin 11.0 G/DL (12.0-16.0) L 10.3 G/DL (12.0-16.0) L Hematocrit 34.7 % (37.0-47.0) L 31.5 % (37.0-47.0) L Mean Corpuscular Volume 93 FL (80-99) 90 FL (80-99) Mean Corpuscular Hemoglobin 29.5 PG (27.0-31.0) 29.5 PG (27.0-31.0) Mean Corpuscular Hemoglobin Concent 31.8 G/DL (32.0-36.0) L 32.7 G/DL (32.0-36.0) Red Cell Distribution Width 12.9 % (11.6-14.8) 14.5 % (11.6-14.8) Platelet Count 137 K/UL (150-450) L 138 K/UL (150-450) L Mean Platelet Volume 8.1 FL (6.5-10.1) 8.5 FL (6.5-10.1) Neutrophils (%) (Auto) 70.4 % (45.0-75.0) 57.0 % (45.0-75.0) Lymphocytes (%) (Auto) 22.1 % (20.0-45.0) 33.2 % (20.0-45.0) Monocytes (%) (Auto) 6.5 % (1.0-10.0) 8.6 % (1.0-10.0) Eosinophils (%) (Auto) 0.4 % (0.0-3.0) 0.5 % (0.0-3.0) Basophils (%) (Auto) 0.6 % (0.0-2.0) 0.6 % (0.0-2.0) Sodium Level 130 MMOL/L (136-145) L 133 MMOL/L (136-145) L Potassium Level 4.1 MMOL/L (3.5-5.1) 4.0 MMOL/L (3.5-5.1) Chloride Level 90 MMOL/L (98-107) L 94 MMOL/L (98-107) L Carbon Dioxide Level 32 MMOL/L (21-32) 27 MMOL/L (21-32) Anion Gap 8 mmol/L (5-15) 12 mmol/L (5-15) Blood Urea Nitrogen 16 mg/dL (7-18) 16 mg/dL (7-18) Creatinine 0.7 MG/DL (0.55-1.30) 0.6 MG/DL (0.55-1.30) Estimat Glomerular Filtration Rate > 60 mL/min (>60) > 60 mL/min (>60) Glucose Level 81 MG/DL (74-106) 88 MG/DL (74-106) Lactic Acid Level 0.50 mmol/L (0.4-2.0) Calcium Level 8.3 MG/DL (8.5-10.1) L 8.7 MG/DL (8.5-10.1) Total Bilirubin 0.2 MG/DL (0.2-1.0) Aspartate Amino Transf (AST/SGOT) 33 U/L (15-37) Alanine Aminotransferase (ALT/SGPT) 34 U/L (12-78) Alkaline Phosphatase 112 U/L (46-116) Total Creatine Kinase 62 U/L (26-308) Creatine Kinase MB 1.1 NG/ML (0.0-3.6) Creatine Kinase MB Relative Index 1.7 Troponin I 0.028 ng/mL (0.000-0.056) 0.009 ng/mL (0.000-0.056) Pro-B-Type Natriuretic Peptide 329 pg/mL (0-125) H Total Protein 7.8 G/DL (6.4-8.2) Albumin 3.7 G/DL (3.4-5.0) Globulin 4.1 g/dL Albumin/Globulin Ratio 0.9 (1.0-2.7) L Magnesium Level 2.4 MG/DL (1.8-2.4) Microbiology Date/Time Source Procedure Growth Status 08/18/19 19:00 Nasal Nares - Final Complete 08/18/19 19:00 Nasal Nares - Final Complete Height (Feet): 5 Height (Inches): 0.00 Weight (Pounds): 100 Medications Current Medications Medications (Trade) Dose Ordered Sig/Wilner Route PRN Reason Start Time Stop Time Status Last Admin Dose Admin Acetaminophen (Tylenol) 650 mg Q4H PRN ORAL Mild Pain (Pain Scale 1-3) 08/19/19 01:30 09/18/19 01:29 08/19/19 03:35 Al Hydroxide/Mg Hydroxide (Mylanta II) 20 ml Q4H PRN ORAL INDIGESTION 08/19/19 01:30 09/18/19 01:29 Albuterol Sulfate (Proventil MDI) 2 puff Q6HRT PRN INH Shortness of Breath 08/19/19 03:15 11/17/19 03:14 Amlodipine Besylate (Norvasc) 10 mg DAILY ORAL 08/19/19 09:00 09/18/19 08:59 08/19/19 08:58 Ascorbic Acid (Vitamin C) 500 mg DAILY ORAL 08/19/19 09:00 09/18/19 08:59 Aspirin (ASA) 81 mg DAILY ORAL 08/19/19 09:00 10/03/19 08:59 Atorvastatin Calcium (Lipitor) 40 mg BEDTIME ORAL 08/19/19 21:00 11/17/19 20:59 Azithromycin (Zithromax) 250 mg Q24H ORAL 08/19/19 04:00 08/26/19 03:59 08/19/19 03:34 Benzonatate (Tessalon Perles) 100 mg TIDPRN PRN ORAL cough 08/18/19 21:15 09/17/19 21:14 Bisacodyl (Dulcolax) 10 mg DAILY PRN RECTAL Constipation 08/19/19 01:30 11/17/19 01:29 Calcium/Vitamin D (OsCal D) 1 tab DAILY ORAL 08/19/19 09:00 11/17/19 08:59 Ceftriaxone Sodium 1 gm/ Sodium Chloride 55 ml @ 110 mls/hr Q24HRS IVPB 08/18/19 23:00 08/25/19 22:59 08/19/19 00:35 Clonazepam (KlonoPIN) 0.5 mg BID ORAL 08/19/19 09:00 08/26/19 08:59 Dextrose (Dextrose 50%) 25 ml Q30M PRN IV Hypoglycemia 08/18/19 21:00 11/16/19 20:59 Dextrose (Dextrose 50%) 50 ml Q30M PRN IV Hypoglycemia 08/18/19 21:00 11/16/19 20:59 Docusate Sodium (Colace) 100 mg EVERY 12 HOURS ORAL 08/18/19 21:00 09/17/19 20:59 Dronabinol (Marinol) 2.5 mg BID ORAL 08/19/19 09:00 11/17/19 08:59 Ferrous Sulfate (Feosol) 325 mg DAILY ORAL 08/19/19 09:00 11/17/19 08:59 Fluticasone Propionate (Flonase) 1 spray DAILY NASAL 08/19/19 09:00 09/18/19 08:59 08/19/19 08:57 Fluticasone Propionate (Flovent 110 mcg) 2 puff DAILY INH 08/19/19 09:00 09/18/19 08:59 08/19/19 07:37 Heparin Sodium (Porcine) (Heparin 5000 units/ml) 5,000 units EVERY 8 HOURS SUBQ 08/19/19 00:00 10/03/19 00:00 Hydralazine HCl (Apresoline) 10 mg Q6H PRN ORAL For High Blood Pressure 08/19/19 01:30 11/17/19 01:29 Ipratropium [place] (Atrovent Inh) 1 puffs Q6HRT INH 08/19/19 07:00 09/18/19 06:59 08/19/19 07:36 Lactulose (Cephulac) 20 gm DAILY PRN ORAL Constipation 08/19/19 01:30 09/18/19 01:29 Lisinopril (PriniviL) 20 mg DAILY ORAL 08/19/19 09:00 09/18/19 08:59 08/19/19 08:58 Magnesium Oxide (Mag-Ox 400mg) 200 mg DAILY ORAL 08/19/19 09:00 09/18/19 08:59 08/19/19 08:58 Methocarbamol (Robaxin) 500 mg Q6H PRN ORAL MUSCLE SPASM 08/19/19 01:30 09/18/19 01:29 Metoprolol Tartrate (Lopressor) 25 mg Q12HR ORAL 08/19/19 09:00 11/17/19 08:59 08/19/19 08:58 Mirtazapine (Remeron) 7.5 mg BEDTIME ORAL 08/19/19 21:00 11/17/19 20:59 Montelukast Sodium (Singulair) 10 mg QPM ORAL 08/19/19 16:30 11/17/19 16:29 Multivitamins (Multivitamins) 1 tab DAILY ORAL 08/19/19 09:00 09/18/19 08:59 Non-Formulary Medication (Non-Formulary Med) 1 ea DAILY ORAL 08/19/19 09:00 09/18/19 08:59 UNV Ondansetron HCl (Zofran) 4 mg Q6H PRN IVP Nausea & Vomiting 08/18/19 21:00 09/17/19 20:59 08/19/19 08:58 Ondansetron HCl (Zofran) 4 mg Q6H PRN ORAL Nausea & Vomiting 08/19/19 01:30 09/18/19 01:29 Oxycodone HCl (Roxicodone) 5 mg Q6H PRN ORAL Severe Pain (Pain Scale 7-10) 08/19/19 01:30 08/26/19 01:29 Pantoprazole (Protonix) 40 mg DAILY ORAL 08/19/19 09:00 09/18/19 08:59 08/19/19 08:58 Polyethylene Glycol (Miralax) 17 gm DAILY ORAL 08/19/19 09:00 09/18/19 08:59 Polyethylene Glycol (Miralax) 17 gm DAILYPRN PRN ORAL Constipation 08/18/19 21:00 09/17/19 20:59 Pregabalin (Lyrica) 75 mg TWICE A DAY ORAL 08/19/19 09:00 10/03/19 08:59 Sennosides (Senokot) 8.6 mg QHS ORAL 08/19/19 21:00 09/18/19 20:59 Sodium Chloride 1,000 ml @ 50 mls/hr Q20H IV 08/18/19 21:00 08/19/19 20:59 08/18/19 23:59 Zinc Sulfate (Zinc Sulfate) 220 mg DAILY ORAL 08/19/19 09:00 11/17/19 08:59 Assessment/Plan Diagnosis [place]: #Hyponatremia - likely hypovolumic - r/o SIADH in the setting of pulmonary infection #Acute on chronic hypoxic resp failure #Acute bronchitis #Rule out COVID-19 #COPD #HTN #Chronic diastolic CHF #Depression #GERD #Chronic right hydronephrosis #Left hemorrhagic renal cyst #Nephrolithiasis #Hematuria - check urine chem, urine osm - check TSH, am cortisol - Continue lisinopril 20 daily, MTP 23 BID, amlodipine 10 qdaily - continue antibiotics per ID - breathing treatment. - ID and Pulm eval - Continue Lexapro- consider holding if sodium if continues to drop - Continue qhs Mirtazapine - consider holding if sodium if continues to drop - Continue pregabalin 75 mg BID - consider holding if sodium if continues to drop Salma Ibanez M.D. Aug 19, 2019 12:09
[2019-08-19] MEDS: oxyCODONE 5mg IR tab ORAL PRN ×2 (13:46→21:37)
[2019-08-19] MEDS: Mylanta II UD 30ml ORAL PRN (13:46)
[2019-08-19 16:00] VITALS: BP 149/102
[2019-08-19] MEDS: Montelukast 10mg tablet ORAL SCH (16:20)
[2019-08-19 20:00] VITALS: BP 157/91
--- NOTE | 2019-08-19 20:15 | Infectious Diseases Prog Note ---
Assessment/Plan Assessment/Plan Full consult dictated: A) 1) possible covid-19 virus infection, ? cap, hypoxia, + chest x-ray, sob, cough 2) pmh noted 3) allergies - orange, tetracycline, tomato P) 1) ceftriaxone, azithromycin 2) start hydroxychloroquine - indicated with respiratory symptoms and + chest x -ray 3) thank you Subjective Allergies: Coded Allergies: [place] (Unverified Allergy, Mild, upset stomach, 02/10/19) TOMATO (Unverified Allergy, Mild, upset stomach, 02/10/19) TETRACYCLINE (Unverified Allergy, Unknown, 07/24/14) Objective Vital Signs Last 24 Hour Vital Signs Date Time Temp Pulse Resp B/P (MAP) Pulse Ox O2 Delivery O2 Flow Rate FiO2 08/19/19 19:46 93 22 97 Nasal Cannula 2.0 28 08/19/19 19:46 93 22 97 Nasal Cannula 2.0 28 08/19/19 16:00 97.7 110 22 149/102 (118) 95 08/19/19 16:00 2.0 08/19/19 16:00 100 08/19/19 12:47 91 22 97 Nasal Cannula 2.0 28 08/19/19 12:47 97 22 97 Nasal Cannula 2.0 28 08/19/19 12:00 97.7 95 20 158/76 (103) 96 08/19/19 12:00 2.0 08/19/19 12:00 96 08/19/19 09:00 Nasal Cannula 4.0 08/19/19 09:00 2.0 08/19/19 08:58 96 143/56 08/19/19 08:58 143/56 08/19/19 08:58 96 143/56 08/19/19 08:00 97.5 96 20 143/56 (85) 96 08/19/19 08:00 99 08/19/19 07:45 98 22 97 Nasal Cannula 2.0 28 08/19/19 07:44 99 22 96 Nasal Cannula 2.0 28 08/19/19 04:00 96.8 96 20 155/72 (99) 90 08/19/19 04:00 2.0 08/19/19 00:00 2.0 08/19/19 00:00 98.2 93 19 127/56 (79) 96 08/18/19 23:00 Nasal Cannula 2.0 08/18/19 22:30 99.1 100 22 145/89 97 Nasal Cannula 2.0 08/18/19 21:26 99.1 99 16 135/77 94 Nasal Cannula 2.0 Height (Feet): 5 Height (Inches): 0.00 Weight (Pounds): 100 Microbiology Date/Time Source Procedure Growth Status 08/18/19 19:00 Nasal Nares - Final Complete 08/18/19 19:00 Nasal Nares - Final Complete Laboratory Tests Test 08/19/19 05:40 08/19/19 16:50 White Blood Count 3.7 K/UL (4.8-10.8) L Red Blood Count 3.48 M/UL (4.20-5.40) L Hemoglobin 10.3 G/DL (12.0-16.0) L Hematocrit 31.5 % (37.0-47.0) L Mean Corpuscular Volume 90 FL (80-99) Mean Corpuscular Hemoglobin 29.5 PG (27.0-31.0) Mean Corpuscular Hemoglobin Concent 32.7 G/DL (32.0-36.0) Red Cell Distribution Width 14.5 % (11.6-14.8) Platelet Count 138 K/UL (150-450) L Mean Platelet Volume 8.5 FL (6.5-10.1) Neutrophils (%) (Auto) 57.0 % (45.0-75.0) Lymphocytes (%) (Auto) 33.2 % (20.0-45.0) Monocytes (%) (Auto) 8.6 % (1.0-10.0) Eosinophils (%) (Auto) 0.5 % (0.0-3.0) Basophils (%) (Auto) 0.6 % (0.0-2.0) Sodium Level 133 MMOL/L (136-145) L Potassium Level 4.0 MMOL/L (3.5-5.1) Chloride Level 94 MMOL/L (98-107) L Carbon Dioxide Level 27 MMOL/L (21-32) Anion Gap 12 mmol/L (5-15) Blood Urea Nitrogen 16 mg/dL (7-18) Creatinine 0.6 MG/DL (0.55-1.30) Estimat Glomerular Filtration Rate > 60 mL/min (>60) Glucose Level 88 MG/DL (74-106) Calcium Level 8.7 MG/DL (8.5-10.1) Magnesium Level 2.4 MG/DL (1.8-2.4) Troponin I 0.009 ng/mL (0.000-0.056) Cortisol AM Sample Pending Urine Osmolality 378 mOsm/kg (429-449) L Urine Random Sodium 116 mmol/L (20-110) H Current Medications Medications (Trade) Dose Ordered Sig/Wilner Route PRN Reason Start Time Stop Time Status Last Admin Dose Admin Acetaminophen (Tylenol) 650 mg Q4H PRN ORAL Mild Pain (Pain Scale 1-3) 08/19/19 01:30 09/18/19 01:29 08/19/19 03:35 Al Hydroxide/Mg Hydroxide (Mylanta II) 20 ml Q4H PRN ORAL INDIGESTION 08/19/19 01:30 09/18/19 01:29 08/19/19 13:46 Albuterol Sulfate (Proventil MDI) 2 puff Q6HRT PRN INH Shortness of Breath 08/19/19 03:15 11/17/19 03:14 Amlodipine Besylate (Norvasc) 10 mg DAILY ORAL 08/19/19 09:00 09/18/19 08:59 08/19/19 08:58 Ascorbic Acid (Vitamin C) 500 mg DAILY ORAL 08/19/19 09:00 09/18/19 08:59 Aspirin (ASA) 81 mg DAILY ORAL 08/19/19 09:00 10/03/19 08:59 Atorvastatin Calcium (Lipitor) 40 mg BEDTIME ORAL 08/19/19 21:00 11/17/19 20:59 Azithromycin (Zithromax) 250 mg Q24H ORAL 08/19/19 04:00 08/26/19 03:59 08/19/19 03:34 Benzonatate (Tessalon Perles) 100 mg TIDPRN PRN ORAL cough 08/18/19 21:15 09/17/19 21:14 Bisacodyl (Dulcolax) 10 mg DAILY PRN RECTAL Constipation 08/19/19 01:30 11/17/19 01:29 Calcium/Vitamin D (OsCal D) 1 tab DAILY ORAL 08/19/19 09:00 11/17/19 08:59 Ceftriaxone Sodium 1 gm/ Sodium Chloride 55 ml @ 110 mls/hr Q24HRS IVPB 08/18/19 23:00 08/25/19 22:59 08/19/19 00:35 Clonazepam (KlonoPIN) 0.5 mg BID ORAL 08/19/19 09:00 08/26/19 08:59 08/19/19 17:05 Dextrose (Dextrose 50%) 25 ml Q30M PRN IV Hypoglycemia 08/18/19 21:00 11/16/19 20:59 Dextrose (Dextrose 50%) 50 ml Q30M PRN IV Hypoglycemia 08/18/19 21:00 11/16/19 20:59 Docusate Sodium (Colace) 100 mg EVERY 12 HOURS ORAL 08/18/19 21:00 09/17/19 20:59 Dronabinol (Marinol) 2.5 mg BID ORAL 08/19/19 09:00 11/17/19 08:59 08/19/19 17:06 Ferrous Sulfate (Feosol) 325 mg DAILY ORAL 08/19/19 09:00 11/17/19 08:59 Fluticasone Propionate (Flonase) 1 spray DAILY NASAL 08/19/19 09:00 09/18/19 08:59 08/19/19 08:57 Fluticasone Propionate (Flovent 110 mcg) 2 puff DAILY INH 08/19/19 09:00 09/18/19 08:59 08/19/19 07:37 Heparin Sodium (Porcine) (Heparin 5000 units/ml) 5,000 units EVERY 8 HOURS SUBQ 08/19/19 00:00 10/03/19 00:00 Hydralazine HCl (Apresoline) 10 mg Q6H PRN ORAL For High Blood Pressure 08/19/19 01:30 11/17/19 01:29 Ipratropium [place] (Atrovent Inh) 1 puffs Q6HRT INH 08/19/19 07:00 09/18/19 06:59 08/19/19 19:00 Lactulose (Cephulac) 20 gm DAILY PRN ORAL Constipation 08/19/19 01:30 09/18/19 01:29 Lisinopril (PriniviL) 20 mg DAILY ORAL 08/19/19 09:00 09/18/19 08:59 08/19/19 08:58 Magnesium Oxide (Mag-Ox 400mg) 200 mg DAILY ORAL 08/19/19 09:00 09/18/19 08:59 08/19/19 08:58 Methocarbamol (Robaxin) 500 mg Q6H PRN ORAL MUSCLE SPASM 08/19/19 01:30 09/18/19 01:29 Metoprolol Tartrate (Lopressor) 25 mg Q12HR ORAL 08/19/19 09:00 11/17/19 08:59 08/19/19 08:58 Mirtazapine (Remeron) 7.5 mg BEDTIME ORAL 08/19/19 21:00 11/17/19 20:59 Montelukast Sodium (Singulair) 10 mg QPM ORAL 08/19/19 16:30 11/17/19 16:29 08/19/19 16:20 Multivitamins (Multivitamins) 1 tab DAILY ORAL 08/19/19 09:00 09/18/19 08:59 Non-Formulary Medication (Non-Formulary Med) 1 ea DAILY ORAL 08/19/19 09:00 09/18/19 08:59 UNV Ondansetron HCl (Zofran) 4 mg Q6H PRN IVP Nausea & Vomiting 08/18/19 21:00 09/17/19 20:59 08/19/19 08:58 Ondansetron HCl (Zofran) 4 mg Q6H PRN ORAL Nausea & Vomiting 08/19/19 01:30 09/18/19 01:29 Oxycodone HCl (Roxicodone) 5 mg Q6H PRN ORAL Severe Pain (Pain Scale 7-10) 08/19/19 01:30 08/26/19 01:29 08/19/19 13:46 Pantoprazole (Protonix) 40 mg DAILY ORAL 08/19/19 09:00 09/18/19 08:59 08/19/19 08:58 Polyethylene Glycol (Miralax) 17 gm DAILY ORAL 08/19/19 09:00 09/18/19 08:59 Polyethylene Glycol (Miralax) 17 gm DAILYPRN PRN ORAL Constipation 08/18/19 21:00 09/17/19 20:59 Pregabalin (Lyrica) 75 mg TWICE A DAY ORAL 4/10/20 09:00 10/03/19 08:59 08/19/19 17:06 Sennosides (Senokot) 8.6 mg QHS ORAL 08/19/19 21:00 09/18/19 20:59 Sodium Chloride 1,000 ml @ 50 mls/hr Q20H IV 08/18/19 21:00 08/19/19 20:59 08/19/19 16:21 Zinc Sulfate (Zinc Sulfate) 220 mg DAILY ORAL 08/19/19 09:00 11/17/19 08:59 Nyasia Grover MD Aug 19, 2019 20:15
[2019-08-19] MEDS: Sennosides 8.6mg tab ORAL SCH ×2 (21:00→21:38)
[2019-08-19] MEDS: Atorvastatin 20mg tab ORAL SCH (21:38)
--- NOTE | 2019-08-19 23:30 | Consultation ---
DATE OF CONSULTATION: 08/19/2019 PULMONARY CONSULTATION CONSULTING PHYSICIAN: Rafael Lerma MD. REFERRING PHYSICIAN: Anjum Guerra MD. REASON FOR CONSULTATION: Respiratory failure. HISTORY OF PRESENT ILLNESS: The patient is a 78-year-old female, known to our service, with history of breast cancer, anemia, COPD, diastolic heart failure. Last seen by us in 2018 when she was admitted to [facility] with respiratory failure complicated by mucus plugging. The patient resided where there have been COVID-positive patients. She presented to [place] with 2 days of body aches, generalized weakness, shortness of breath, and a dry cough. T-max here is 99.1. Vital signs have been stable. She has been requiring between 2 to 4 L of oxygen. She has been started on IV antibiotics and was admitted to telemetry unit in COVID isolation to rule out the novel coronavirus. Her ABG 7.39/49/75/30/94. Chest x-ray here showed a concern for CHF with interstitial edema and patchy airspace opacities. The last CT of chest on file at [facility] is from August 2018 and at that point had CT and CT angio to rule out PE and showed some atelectasis in the left upper lobe with pulmonary vascular congestion. Her last echocardiogram on -[facility] from August 23, 2018, showed an EF of 70% with mild diastolic dysfunction and a PA systolic of 25. PAST MEDICAL HISTORY: 1. COPD. 2. Breast cancer. 3. Anemia. 4. Chronic diastolic heart failure. 5. Cervical degenerative disk disease. 6. Chronic low back pain. 7. GERD. 8. Subarachnoid hemorrhage. 9. History of lingular atelectasis, recurrent, since a thoracotomy and resection of a pericardial cyst complicated by a tracheal laceration in the past. ALLERGIES: Tomato, tetracycline, and orange. MEDICATIONS: Prior to admission medications reviewed. Current medications reviewed. SOCIAL HISTORY: She is currently a [facility] resident. Former smoker. No drug or alcohol use. FAMILY HISTORY: Noncontributory. REVIEW OF SYSTEMS: Negative other than history of present illness. PHYSICAL EXAMINATION: VITAL SIGNS: T-max 99, heart rate 80, blood pressure 143/56, saturating 98% on 2 L. GENERAL: Exam deferred given COVID isolation, PPE requirements. ANCILLARY DATA: Chest x-ray with interstitial edema. Rapid flu, negative. ABG 7.39/49/75/30/94/4.5. Sodium 133, potassium 4, chloride 94, bicarb 27, BUN 16, creatinine 0.6, glucose 88, lactic acid 0.5, calcium 8.7, magnesium 2.4. Total bilirubin 0.2, AST 33, ALT 34, alkaline phosphatase 112. CK 62, CK-MB 1.1, BNP 329. Total protein 7.8, albumin 3.7, globulin 4.1, phosphorus 3.9, lipase 194. Iron 15, TIBC 230, saturation 7%. TSH 1.065. Uric acid 2.3. CRP 14.3. CEA 5.6. INR 1. D-dimer 1.32. White count 3.7 and platelet count 138,000. Urinalysis noted. ASSESSMENT: The patient is a 78-year-old female with a history of COPD, diastolic dysfunction, CHF, breast cancer, anemia, admitted with respiratory illness, febrile illness concerning for healthcare-associated pneumonia versus viral infection such as COVID-19. PROBLEM LIST: 1. Febrile respiratory illness, healthcare-associated pneumonia versus viral illness such as COVID-19. 2. Acute hypoxemic respiratory failure. 3. COPD. 4. CHF with diastolic dysfunction. 5. History of mucus plugging. 6. History of breast cancer. 7. Anemia. 8. Hyponatremia. 9. Dementia. 10. 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 11. Dysphagia. TREATMENT PLAN: 1. Optimize pulmonary hygiene/mobilize as tolerated. 2. Titrate down FiO2 to keep saturations greater than 90%. 3. Awscb-dcp-chfbb and p.r.n. albuterol and Atrovent metered-dose inhalers via spacer. 4. No nebulizers. 5. Follow up COVID-19 PCR. 6. Continue ceftriaxone and azithromycin for now; however, if signs of worsening respiratory infection, we would consider broadening to cover healthcare-associated pathogens. 7. Monitor volumes and renal function. 8. DVT prophylaxis, heparin subcu. 9. Continue Singulair. 10. Continue fluticasone inhaler b.i.d. 11. Continue Tessalon t.i.d. p.r.n. 12. Add Mucinex and p.r.n. Robitussin. Rafael Lerma M.D. DR: Jacob JOB#: [id number] CC:
[2019-08-20] VITALS: BP 154/89
[2019-08-20] MEDS: Ipratropium Bromide Inhaler INH SCH ×4 (01:03→20:20)
--- NOTE | 2019-08-20 01:45 | Consultation ---
DATE OF CONSULTATION: 08/19/2019 INFECTIOUS DISEASE CONSULTATION CONSULTING PHYSICIAN: Nyasia Grover MD. ATTENDING PHYSICIAN: Delia Nix MD. REFERRING PHYSICIAN: Anjum Guerra MD. REASON FOR CONSULTATION: Possible COVID-19 virus infection, community-acquired pneumonia, low-grade fevers. CHIEF COMPLAINT: The patient's chief complaint coming into the hospital is cough, congestion, hypoxia, pneumonia, possible COVID-19 virus infection. HISTORY OF PRESENT ILLNESS: The patient is a 78-year-old female who comes into [facility]. The patient was noted to have respiratory insufficiency, history of COPD, cough and shortness of breath at [facility]. She has history of urinary tract infection. She has low-grade fevers. Chest x-ray at [facility] showed edema versus patchy airspace disease. The patient is being treated for community-acquired pneumonia. Infectious Diseases consultation requested. The patient is on Rocephin and azithromycin. I will add hydroxychloroquine. I discussed with pharmacy about hydroxychloroquine The patient is responsive and alert. Case discussed with pharmacy about the hydroxychloroquine. She also has leukopenia. The patient will be continued on Rocephin, azithromycin, hydroxychloroquine for now. MAR was noted. Orders were noted. Notes were reviewed. REVIEW OF SYSTEMS: The patient has generalized fatigue and body aches. She has no high fevers or chills. No mention of weight loss or night sweats. HEAD AND NECK: No head pain, neck pain, thrush, dysphagia. No headache or neck stiffness. CARDIAC: No chest pain or palpitations. GASTROINTESTINAL: No nausea, vomiting, diarrhea. GENITOURINARY: She has no dysuria or frequency. PULMONARY: She has mild cough, congestion, short of breath. SKIN: No rash. EXTREMITIES: No pain. NEUROLOGIC: No seizures. Generalized fatigue. SKIN: No rash or itching. No seizure activity. PAST MEDICAL HISTORY: The patient's past medical history includes the following: The patient has a past medical history of O2 dependency, respiratory failure, COPD, diastolic heart failure, hypertension, history of UTIs, chronic pain, anxiety, CHF, history of bronchitis, hydronephrosis, renal cyst, nephrolithiasis, hematuria, GERD. ALLERGIES: Include oranges, tetracycline, tomatoes. SOCIAL HISTORY: Negative for smoking, alcohol, drug abuse. FAMILY HISTORY: Noncontributory. Negative for exposure to tuberculosis or cancer. MEDICATIONS: Upon reviewing the MAR, the patient is on following medications: The patient is on mirtazapine, Senokot, atorvastatin, Lipitor, montelukast, amlodipine, Norvasc, ascorbic acid, , calcium and vitamin D, clonazepam, Marinol, Klonopin, ferrous sulfate, Flovent, lisinopril, metoprolol, multivitamin, pantoprazole, zinc sulfate, Rocephin azithromycin, hydralazine, oxycodone, Zofran. Outside medications noted and reconciliated. PHYSICAL EXAMINATION: VITAL SIGNS: Temperature is 97.7, pulse rate 110, respiratory rate 22, blood pressure 149/92, saturation 95% on 2 liters. Saturation is as low as 93%. T-max 99.1. She was consistently at 99.1 initially. GENERAL: Alert and responsive. The patient is in COVID-19 virus isolation. HEAD AND NECK: Oral exam, no thrush. Eye exam, no icterus. Normocephalic. Neck is supple. HEART: No gallop or murmur. ABDOMEN: Soft. Positive bowel sounds. Nontender. LUNGS: Bilateral rhonchi, rales, and crackles. SKIN: No rashes. MUSCULOSKELETAL: No effusions. Legs without cellulitis. PERIPHERAL VASCULAR: No cyanosis or gangrene. GENITOURINARY: No Es[place]eda. LINE SITES: Without phlebitis. NEUROLOGIC: Intact and nonfocal. Alert and oriented. LABORATORY DATA: White count 3.7, hemoglobin 10.3. Creatinine 0.6. Platelet count 138. UA will be ordered. Chest x-ray shows congestive heart failure with interstitial edema, patchy airspace edema and effusion. ASSESSMENT AND PLAN: 1. The patient has possible COVID-19 virus infection with hypoxia, cough, respiratory insufficiency, respiratory symptoms, shortness of breath, and positive chest x-ray. Unclear if she has community-acquired pneumonia; however, must consider COVID-19 virus infection in the differential. Because of the respiratory symptoms, in addition to Rocephin and azithromycin to cover community-acquired pneumonia we will add hydroxychloroquine to cover COVID-19 virus infection. Await COVID-19 virus testing. Continue antibiotics. Check followup labs and chest x-ray. Continue hydroxychloroquine, Rocephin, azithromycin. 2. I have discussed with pharmacy about hydroxychloroquine in this patient. 3. The patient has anemia. 4. Congestive heart failure. 5. Hypertension. 6. Blood pressure treatment per primary care team. 7. Leukopenia consistent with viral syndrome. 8. History of urinary tract infection. We will check urine C and S. 9. Anxiety and chronic pain. 10. Chronic obstructive pulmonary disease. 11. Allergies to oranges, tetracycline, tomatoes. 12. Social history is negative. 13. Family history is noncontributory. 14. MAR was noted. 15. Case discussed with RN. 16. Skin care protocol. 17. [facility]. Nyasia Grover M.D. DR: Mike JOB#: [id number] CC: BALDEMAR
[2019-08-20 04:00] VITALS: BP 139/73
--- NOTE | 2019-08-20 04:00 | Consultation ---
DATE OF CONSULTATION: CONSULTING PHYSICIAN: Wan Stern M.D. HISTORY OF PRESENT ILLNESS: This is a 78-year-old female with a history of severe anxiety. The patient is well known to this physician, who has been admitted to the hospital for COVID rule out. The patient has severe COPD. She is anxious and asking for more Ativan. We are holding up on Ativan due to positive COVID. Patient is irrational. CURRENT MEDICATIONS: Her antidepressants will be restarted. PAST PSYCHIATRIC HISTORY: Anxiety and depression. PAST MEDICAL HISTORY: As above. ALLERGIES: Tetracycline. MENTAL STATUS EXAMINATION: The patient is alert and oriented to time, self, place, and situation. Mood is neutral. Affect is flat. Thought process is concrete. Thought content, no suicidal or homicidal ideation. Cognition is impaired. Insight and judgment is impaired. ASSESSMENT: 1. We will hold off on Lexapro. 2. Increase her Remeron to 15 mg at bedtime. 3. Hold off on Ativan. 4. Continue to follow and readjust the medications. Wan Stern M.D. DR: Radha JOB#: [id number] CC:
[2019-08-20] MEDS: oxyCODONE 5mg IR tab ORAL PRN ×3 (04:06→17:40)
[2019-08-20] MEDS: Heparin 5000 units/ml inj SUBQ SCH ×3 (06:00→21:45)
[2019-08-20] MEDS: Azithromycin 250mg tab ORAL SCH (07:03)
[2019-08-20] MEDS: Flovent 110mcg Inhaler - 12gm INH SCH (07:26)
[2019-08-20 07:37] LABS: BASOPHILS % (AUTO) 0.7 % (0.0-2.0); EOSINOPHILS % (AUTO) 0.7 % (0.0-3.0); HEMATOCRIT 31.4 % (37.0-47.0); HEMOGLOBIN 10.7 G/DL (12.0-16.0); LYMPHOCYTES % (AUTO) 27.4 % (20.0-45.0); MEAN CORPUSCULAR VOLUME 89 FL (80-99); MONOCYTES % (AUTO) 10.2 % (1.0-10.0); PLATELET COUNT 165 K/UL (150-450); RED BLOOD COUNT 3.54 M/UL (4.20-5.40); RED CELL DISTRIBUTION WIDTH 11.7 % (11.6-14.8); WHITE BLOOD COUNT 4.4 K/UL (4.8-10.8)
[2019-08-20 08:00] VITALS: BP 138/82
[2019-08-20 08:17] LABS: ALANINE AMINOTRANSFERASE 20 U/L (12-78); ALBUMIN 3.4 G/DL (3.4-5.0); ALBUMIN/GLOBULIN RATIO 0.9 (1.0-2.7); ALKALINE PHOSPHATASE 112 U/L (46-116); ANION GAP 17 mmol/L (5-15); ASPARTATE AMINO TRANSFERASE 27 U/L (15-37); BILIRUBIN,TOTAL 0.3 MG/DL (0.2-1.0); BLOOD UREA NITROGEN 8 mg/dL (7-18); CALCIUM 9.3 MG/DL (8.5-10.1); CARBON DIOXIDE 23 MMOL/L (21-32); CHLORIDE 94 MMOL/L (98-107); CREATININE 0.4 MG/DL (0.55-1.30); POTASSIUM 3.7 MMOL/L (3.5-5.1); SODIUM 134 MMOL/L (136-145)
--- NOTE | 2019-08-20 09:09 | General Progress Note ---
Assessment/Plan Assessment/Plan: 78 year old woman SNF resident with chronic resp failure due to COPD, HTN, chronic dCHF, chronic pain, depression, anxiety, chronic right hydronephrosis who presented from SNF with dyspnea, cough body aches, rule out COVID-19 #Acute on chronic hypoxic resp failure #Acute bronchitis #Rule out COVID-19 #COPD -cont. inpatient medical care -Inhaled bronchodilators prn -Continue supplemental oxygen -Follow up COVID-19 testing -Will defer systemic steroid use to Pulm -ID and Pulm consulted, recs appreciated #Hyponatremia - likely hypovolumic - r/o SIADH in the setting of pulmonary infection -Nephro following, recs appreciated #HTN #Chronic diastolic CHF -Cont outpatient meds lisinopril 20 daily, MTP 25 BID, amlodipine 10 q daily #Depression #Chronic pain #Anxiety disorder #Osteoarthritis -Continue qhs Mirtazapine. -Continue pregabalin 75 mg BID -Continue home Dronabinol 2.5 mg BID -Continue Clonazepam 0.5 mg BID -Continue Oxycodone 5 mg q6h prn -Psych consulted - hold lexapro, increase remeron to 15 mg qHS, hold ativan #GERD -cont. PPI #Chronic right hydronephrosis #Left hemorrhagic renal cyst #Nephrolithiasis #Hematuria I spent 35 minutes on this patient's case, and 50% was dedicated to counseling and/or care coordination witch included communication with RN, consulting MDs, case management I spent an additional 25 minutes on review of medical records including prior hospital records, consult notes, progress notes, procedures, imaging, labs, hemodynamics, and other clinical documentation. Subjective Constitutional: Denies: no symptoms, chills, diaphoresis, fever, malaise, weakness, other HEENT: Denies: no symptoms, eye pain, blurred vision, tearing, double vision, ear pain, ear discharge, nose pain, nose congestion, throat pain, throat swelling, mouth pain, mouth swelling, other Cardiovascular: Denies: no symptoms, chest pain, edema, irregular heart rate, lightheadedness, palpitations, syncope, other Gastrointestinal/Abdominal: Denies: no symptoms, abdomen distended, abdominal pain, black stools, tarry stools, blood in stool, constipated, diarrhea, difficulty swallowing, nausea, poor appetite, poor fluid intake, rectal bleeding , vomiting, other Genitourinary: Denies: no symptoms, burning, discharge, frequency, flank pain, hematuria, incontinence, pain, urgency, other Neurologic/Psychiatric: Denies: no symptoms, anxiety, depressed, emotional problems, headache, numbness, paresthesia, pre-existing deficit, seizure, tingling, tremors, weakness, other Allergies: Coded Allergies: [place] (Unverified Allergy, Mild, upset stomach, 02/10/19) TOMATO (Unverified Allergy, Mild, upset stomach, 02/10/19) TETRACYCLINE (Unverified Allergy, Unknown, 07/24/14) Subjective Follow-up for acute on chronic hypoxic respiratory failure. Patient states she continues to have cough, states it is stable compared to previous day. Denies any F/C, S OB at this time. Objective Last 24 Hour Vital Signs Date Time Temp Pulse Resp B/P (MAP) Pulse Ox O2 Delivery O2 Flow Rate FiO2 08/20/19 07:30 Room Air 21 08/20/19 07:30 Room Air 21 08/20/19 04:00 98.4 89 19 139/73 (95) 96 08/20/19 04:00 91 08/20/19 01:03 81 20 97 Nasal Cannula 2.0 28 08/20/19 01:02 81 20 97 Nasal Cannula 2.0 28 08/20/19 00:00 94 08/20/19 00:00 97.9 110 19 154/89 (110) 96 08/19/19 21:38 115 151/91 08/19/19 21:00 Nasal Cannula 4.0 08/19/19 20:00 97.2 115 19 157/91 (113) 90 08/19/19 20:00 113 08/19/19 19:46 93 22 97 Nasal Cannula 2.0 28 08/19/19 19:46 93 22 97 Nasal Cannula 2.0 28 08/19/19 16:00 97.7 110 22 149/102 (118) 95 08/19/19 16:00 2.0 08/19/19 16:00 100 08/19/19 12:47 91 22 97 Nasal Cannula 2.0 28 08/19/19 12:47 97 22 97 Nasal Cannula 2.0 28 08/19/19 12:00 97.7 95 20 158/76 (103) 96 08/19/19 12:00 2.0 08/19/19 12:00 96 Intake and Output 08/19/19 08/20/19 19:00 07:00 Intake Total 810 ml Output Total 1 ml 1 ml Balance 809 ml -1 ml Intake Oral 260 ml IV Total 550 ml Output Urine Total 1 ml 1 ml Stool Total 0 ml 0 ml # Voids 1 100 Laboratory Tests 08/19/19 16:50: Urine Osmolality 378L, Urine Random Sodium 116H 08/20/19 06:40: White Blood Count 4.4L, Red Blood Count 3.54L, Hemoglobin 10.7L, Hematocrit 31.4L, Mean Corpuscular Volume 89, Mean Corpuscular Hemoglobin 30.4, Mean Corpuscular Hemoglobin Concent 34.2, Red Cell Distribution Width 11.7, Platelet Count 165, Mean Platelet Volume 7.0, Neutrophils (%) (Auto) 61.0, Lymphocytes (% ) (Auto) 27.4, Monocytes (%) (Auto) 10.2H, Eosinophils (%) (Auto) 0.7, Basophils (%) (Auto) 0.7, Sodium Level 134L, Potassium Level 3.7, Chloride Level 94L, Carbon Dioxide Level 23, Anion Gap 17H, Blood Urea Nitrogen 8, Creatinine 0.4L, Estimat Glomerular Filtration Rate > 60, Glucose Level 78, Calcium Level 9.3, Total Bilirubin 0.3, Aspartate Amino Transf (AST/SGOT) 27, Alanine Aminotransferase (ALT/SGPT) 20, Alkaline Phosphatase 112, Troponin I 0.009, Total Protein 7.3, Albumin 3.4, Globulin 3.9, Albumin/Globulin Ratio 0.9L , Thyroid Stimulating Hormone (TSH) 0.333L Height (Feet): 5 Height (Inches): 0.00 Weight (Pounds): 100 Objective General Appearance: no apparent distress, alert HEENT: atraumatic, anicteric Neck: normal alignment, supple Respiratory/Chest: no respiratory distress, no accessory muscle use, other - Bilateral rhonchi Cardiovascular/Chest: normal rate, regular rhythm Abdomen: non tender, soft, +BS Ext: no edema Morgan Lutz M.D. Aug 20, 2019 09:09
[2019-08-20] MEDS: clonazePAM 0.5mg tab ORAL SCH ×2 (09:59→17:39)
[2019-08-20] MEDS: Docusate 100mg cap ORAL SCH ×2 (09:59→21:40)
[2019-08-20] MEDS: Lisinopril 20mg tab ORAL SCH (10:00)
[2019-08-20] MEDS: Zinc Sulfate 220mg cap ORAL SCH (10:00)
[2019-08-20] MEDS: Magnesium Oxide 400mg tab ORAL SCH (10:00)
[2019-08-20] MEDS: Aspirin Baby 81mg ORAL SCH (10:01)
[2019-08-20] MEDS: Lyrica 75mg cap ORAL SCH ×2 (10:02→17:40)
[2019-08-20] MEDS: Dronabinol 2.5mg Cap ORAL SCH ×2 (10:02→17:40)
[2019-08-20] MEDS: Flonase Nasal Inhaler 16gm NASAL SCH (10:03)
[2019-08-20] MEDS: Miralax 17gm pkt ORAL SCH (10:03)
[2019-08-20] MEDS: Calcium Carbonate 500mg w/Vit D 200iu tab ORAL SCH (10:03)
[2019-08-20] MEDS: Ascorbic Acid 500mg tab ORAL SCH (10:03)
--- NOTE | 2019-08-20 10:11 | Nephrology Progress Note ---
Assessment/Plan Plan #Hyponatremia - likely hypovolumic - r/o SIADH in the setting of pulmonary infection #Acute on chronic hypoxic resp failure #Acute bronchitis #Rule out COVID-19 #COPD #HTN #Chronic diastolic CHF #Depression #GERD #Chronic right hydronephrosis #Left hemorrhagic renal cyst #Nephrolithiasis #Hematuria - monitor BMP - check free T4 - Continue lisinopril 20 daily, MTP 23 BID, amlodipine 10 qdaily - continue antibiotics per ID - breathing treatment. - ID and Pulm eval - Continue Lexapro- consider holding if sodium if continues to drop - Continue qhs Mirtazapine - consider holding if sodium if continues to drop - Continue pregabalin 75 mg BID - consider holding if sodium if continues to drop Subjective ROS Limited/Unobtainable: No Subjective sodium 134 Breathing stable BP stable Objective Objective Last 24 Hour Vital Signs Date Time Temp Pulse Resp B/P (MAP) Pulse Ox O2 Delivery O2 Flow Rate FiO2 08/20/19 10:03 104 138/82 08/20/19 10:00 104 138/82 08/20/19 10:00 138/82 08/20/19 08:00 98.1 104 20 138/82 (100) 96 08/20/19 07:30 Room Air 21 08/20/19 07:30 Room Air 21 08/20/19 04:00 98.4 89 19 139/73 (95) 96 08/20/19 04:00 91 08/20/19 01:03 81 20 97 Nasal Cannula 2.0 28 08/20/19 01:02 81 20 97 Nasal Cannula 2.0 28 08/20/19 00:00 94 08/20/19 00:00 97.9 110 19 154/89 (110) 96 08/19/19 21:38 115 151/91 08/19/19 21:00 Nasal Cannula 4.0 08/19/19 20:00 97.2 115 19 157/91 (113) 90 08/19/19 20:00 113 08/19/19 19:46 93 22 97 Nasal Cannula 2.0 28 08/19/19 19:46 93 22 97 Nasal Cannula 2.0 28 08/19/19 16:00 97.7 110 22 149/102 (118) 95 08/19/19 16:00 2.0 08/19/19 16:00 100 08/19/19 12:47 91 22 97 Nasal Cannula 2.0 28 08/19/19 12:47 97 22 97 Nasal Cannula 2.0 28 08/19/19 12:00 97.7 95 20 158/76 (103) 96 08/19/19 12:00 2.0 08/19/19 12:00 96 Intake and Output 08/19/19 08/20/19 19:00 07:00 Intake Total 810 ml Output Total 1 ml 1 ml Balance 809 ml -1 ml Intake Oral 260 ml IV Total 550 ml Output Urine Total 1 ml 1 ml Stool Total 0 ml 0 ml # Voids 1 100 Laboratory Tests 08/19/19 16:50: Urine Osmolality 378L, Urine Random Sodium 116H 08/20/19 06:40: White Blood Count 4.4L, Red Blood Count 3.54L, Hemoglobin 10.7L, Hematocrit 31.4L, Mean Corpuscular Volume 89, Mean Corpuscular Hemoglobin 30.4, Mean Corpuscular Hemoglobin Concent 34.2, Red Cell Distribution Width 11.7, Platelet Count 165, Mean Platelet Volume 7.0, Neutrophils (%) (Auto) 61.0, Lymphocytes (% ) (Auto) 27.4, Monocytes (%) (Auto) 10.2H, Eosinophils (%) (Auto) 0.7, Basophils (%) (Auto) 0.7, Sodium Level 134L, Potassium Level 3.7, Chloride Level 94L, Carbon Dioxide Level 23, Anion Gap 17H, Blood Urea Nitrogen 8, Creatinine 0.4L, Estimat Glomerular Filtration Rate > 60, Glucose Level 78, Calcium Level 9.3, Total Bilirubin 0.3, Aspartate Amino Transf (AST/SGOT) 27, Alanine Aminotransferase (ALT/SGPT) 20, Alkaline Phosphatase 112, Troponin I 0.009, Total Protein 7.3, Albumin 3.4, Globulin 3.9, Albumin/Globulin Ratio 0.9L , Thyroid Stimulating Hormone (TSH) 0.333L Height (Feet): 5 Height (Inches): 0.00 Weight (Pounds): 100 Salma Ibanez M.D. Aug 20, 2019 10:11
[2019-08-20 11:07] LABS: APPEARANCE,URINE CLEAR; BILIRUBIN, URINE NEGATIVE (NEGATIVE); COLOR,URINE PALE YELLOW; GLUCOSE, URINE (UA) NEGATIVE (NEGATIVE); KETONES,URINE 4+ (NEGATIVE); LEUKOCYTE ESTERASE ,URINE 1+ (NEGATIVE); NITRITE,URINE NEGATIVE (NEGATIVE); PH,URINE 7 (4.5-8.0); PROTEIN,URINE 2+ (NEGATIVE); UROBILINOGEN,URINE NORMAL MG/DL (0.0-1.0)
[2019-08-20 12:00] VITALS: BP 135/93
--- NOTE | 2019-08-20 13:16 | Pulmonology Progress Note ---
Assessment/Plan Assessment/Plan ASSESSMENT: The patient is a 78-year-old female with a history of COPD, diastolic dysfunction, CHF, breast cancer, anemia, admitted with respiratory illness, febrile illness concerning for healthcare-associated pneumonia versus viral infection such as COVID-19. PROBLEM LIST: 1. Febrile respiratory illness, healthcare-associated pneumonia versus viral illness such as COVID-19. 2. Acute hypoxemic respiratory failure. 3. COPD. 4. CHF with diastolic dysfunction. 5. History of mucus plugging. 6. History of breast cancer. 7. Anemia. 8. Hyponatremia. 9. Dementia. 10. 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 11. Dysphagia. TREATMENT PLAN: 1. Optimize pulmonary hygiene/mobilize as tolerated. 2. Titrate down FiO2 to keep saturations greater than 90%. 3. [id number] and p.r.n. albuterol and Atrovent metered-dose inhalers via spacer. 4. No nebulizers. 5. Follow up COVID-19 PCR. 6. Continue ceftriaxone and azithromycin for now; however, if signs of worsening respiratory infection, we would consider broadening to cover healthcare-associated pathogens. 7. Monitor volumes and renal function. 8. DVT prophylaxis, heparin subcu. 9. Continue Singulair. 10. Continue fluticasone inhaler b.i.d. 11. Continue Tessalon t.i.d. p.r.n. 12. Continue Mucinex and p.r.n. Robitussin. Subjective Allergies: Coded Allergies: [place] (Unverified Allergy, Mild, upset stomach, 02/10/19) TOMATO (Unverified Allergy, Mild, upset stomach, 02/10/19) TETRACYCLINE (Unverified Allergy, Unknown, 07/24/14) Subjective NAEO AFVSS on 2L + cough + SOB no FC no CP Objective Last 24 Hour Vital Signs Date Time Temp Pulse Resp B/P (MAP) Pulse Ox O2 Delivery O2 Flow Rate FiO2 08/20/19 12:00 98.3 90 21 135/93 (107) 97 08/20/19 10:03 104 138/82 08/20/19 10:00 104 138/82 08/20/19 10:00 138/82 08/20/19 09:00 Nasal Cannula 2.0 08/20/19 08:00 98.1 104 20 138/82 (100) 96 08/20/19 08:00 93 08/20/19 07:30 Room Air 21 08/20/19 07:30 Room Air 21 08/20/19 04:00 98.4 89 19 139/73 (95) 96 08/20/19 04:00 91 08/20/19 01:03 81 20 97 Nasal Cannula 2.0 28 08/20/19 01:02 81 20 97 Nasal Cannula 2.0 28 08/20/19 00:00 94 08/20/19 00:00 97.9 110 19 154/89 (110) 96 08/19/19 21:38 115 151/91 08/19/19 21:00 Nasal Cannula 4.0 08/19/19 20:00 97.2 115 19 157/91 (113) 90 08/19/19 20:00 113 08/19/19 19:46 93 22 97 Nasal Cannula 2.0 28 08/19/19 19:46 93 22 97 Nasal Cannula 2.0 28 08/19/19 16:00 97.7 110 22 149/102 (118) 95 08/19/19 16:00 2.0 08/19/19 16:00 100 Intake and Output 08/19/19 08/20/19 19:00 07:00 Intake Total 810 ml Output Total 1 ml 1 ml Balance 809 ml -1 ml Intake Oral 260 ml IV Total 550 ml Output Urine Total 1 ml 1 ml Stool Total 0 ml 0 ml # Voids 1 100 General Appearance: other - deferred 2/2 COIVD19 isolation, PPE requirments and policy, no distress confused per RN Microbiology Date/Time Source Procedure Growth Status 08/18/19 19:00 Blood Blood Culture - Preliminary NO GROWTH AFTER 24 HOURS Resulted 08/18/19 18:50 Blood Blood Culture - Preliminary NO GROWTH AFTER 24 HOURS Resulted 08/18/19 19:00 Nasal Nares - Final Complete 08/18/19 19:00 Nasal Nares - Final Complete Laboratory Tests 08/19/19 16:50: Urine Osmolality 378L, Urine Random Sodium 116H 08/20/19 06:40: White Blood Count 4.4L, Red Blood Count 3.54L, Hemoglobin 10.7L, Hematocrit 31.4L, Mean Corpuscular Volume 89, Mean Corpuscular Hemoglobin 30.4, Mean Corpuscular Hemoglobin Concent 34.2, Red Cell Distribution Width 11.7, Platelet Count 165, Mean Platelet Volume 7.0, Neutrophils (%) (Auto) 61.0, Lymphocytes (% ) (Auto) 27.4, Monocytes (%) (Auto) 10.2H, Eosinophils (%) (Auto) 0.7, Basophils (%) (Auto) 0.7, Sodium Level 134L, Potassium Level 3.7, Chloride Level 94L, Carbon Dioxide Level 23, Anion Gap 17H, Blood Urea Nitrogen 8, Creatinine 0.4L, Estimat Glomerular Filtration Rate > 60, Glucose Level 78, Calcium Level 9.3, Total Bilirubin 0.3, Aspartate Amino Transf (AST/SGOT) 27, Alanine Aminotransferase (ALT/SGPT) 20, Alkaline Phosphatase 112, Troponin I 0.009, Total Protein 7.3, Albumin 3.4, Globulin 3.9, Albumin/Globulin Ratio 0.9L , Thyroid Stimulating Hormone (TSH) 0.333L 08/20/19 10:20: Urine Color Pale yellow, Urine Appearance Clear, Urine pH 7, Urine Specific [place]inson 1.010, Urine Protein 2+H, Urine Glucose (UA) Negative, Urine Ketones 4+H , Urine Blood 2+H, Urine Nitrite Negative, Urine Bilirubin Negative, Urine Urobilinogen Normal, Urine Leukocyte Esterase 1+H, Urine RBC 2-4H, Urine WBC 0-2 , Urine Squamous Epithelial Cells Occasional, Urine Bacteria Occasional Current Medications Medications (Trade) Dose Ordered Sig/Wilner Route PRN Reason Start Time Stop Time Status Last Admin Dose Admin Acetaminophen (Tylenol) 650 mg Q4H PRN ORAL Mild Pain (Pain Scale 1-3) 08/19/19 01:30 09/18/19 01:29 08/19/19 03:35 Al Hydroxide/Mg Hydroxide (Mylanta II) 20 ml Q4H PRN ORAL INDIGESTION 08/19/19 01:30 09/18/19 01:29 08/19/19 13:46 Albuterol Sulfate (Proventil MDI) 2 puff Q6HRT PRN INH Shortness of Breath 08/19/19 03:15 11/17/19 03:14 Amlodipine Besylate (Norvasc) 10 mg DAILY ORAL 08/19/19 09:00 09/18/19 08:59 08/20/19 10:03 Ascorbic Acid (Vitamin C) 500 mg DAILY ORAL 08/19/19 09:00 09/18/19 08:59 08/20/19 10:03 Aspirin (ASA) 81 mg DAILY ORAL 08/19/19 09:00 10/03/19 08:59 08/20/19 10:01 Atorvastatin Calcium (Lipitor) 40 mg BEDTIME ORAL 08/19/19 21:00 11/17/19 20:59 08/19/19 21:38 Azithromycin (Zithromax) 250 mg Q24H ORAL 08/20/19 06:00 08/27/19 05:59 08/20/19 07:03 Benzonatate (Tessalon Perles) 100 mg TIDPRN PRN ORAL cough 08/18/19 21:15 09/17/19 21:14 Bisacodyl (Dulcolax) 10 mg DAILY PRN RECTAL Constipation 08/19/19 01:30 11/17/19 01:29 Calcium/Vitamin D (OsCal D) 1 tab DAILY ORAL 08/19/19 09:00 11/17/19 08:59 08/20/19 10:03 Ceftriaxone Sodium 1 gm/ Sodium Chloride 55 ml @ 110 mls/hr Q24HRS IVPB 08/18/19 23:00 08/25/19 22:59 08/19/19 23:27 Clonazepam (KlonoPIN) 0.5 mg BID ORAL 08/19/19 09:00 08/26/19 08:59 08/20/19 09:59 Dextrose (Dextrose 50%) 25 ml Q30M PRN IV Hypoglycemia 08/18/19 21:00 11/16/19 20:59 Dextrose (Dextrose 50%) 50 ml Q30M PRN IV Hypoglycemia 08/18/19 21:00 11/16/19 20:59 Docusate Sodium (Colace) 100 mg EVERY 12 HOURS ORAL 08/18/19 21:00 09/17/19 20:59 08/20/19 09:59 Dronabinol (Marinol) 2.5 mg BID ORAL 08/19/19 09:00 11/17/19 08:59 08/20/19 10:02 Ferrous Sulfate (Feosol) 325 mg DAILY ORAL 08/19/19 09:00 11/17/19 08:59 08/20/19 10:00 Fluticasone Propionate (Flonase) 1 spray DAILY NASAL 08/19/19 09:00 09/18/19 08:59 08/20/19 10:03 Fluticasone Propionate (Flovent 110 mcg) 2 puff DAILY INH 08/19/19 09:00 09/18/19 08:59 08/19/19 07:37 Heparin Sodium (Porcine) (Heparin 5000 units/ml) 5,000 units EVERY 8 HOURS SUBQ 08/19/19 00:00 10/03/19 00:00 Hydralazine HCl (Apresoline) 10 mg Q6H PRN ORAL For High Blood Pressure 08/19/19 01:30 11/17/19 01:29 Hydroxychloroquine Sulfate (Plaquenil) 200 mg Q12H ORAL 08/20/19 21:00 08/24/19 09:01 Ipratropium [place] (Atrovent Inh) 1 puffs Q6HRT INH 08/19/19 07:00 09/18/19 06:59 08/20/19 01:03 Lactulose (Cephulac) 20 gm DAILY PRN ORAL Constipation 08/19/19 01:30 09/18/19 01:29 Lisinopril (PriniviL) 20 mg DAILY ORAL 08/19/19 09:00 09/18/19 08:59 08/20/19 10:00 Magnesium Oxide (Mag-Ox 400mg) 200 mg DAILY ORAL 08/19/19 09:00 09/18/19 08:59 08/20/19 10:00 Methocarbamol (Robaxin) 500 mg Q6H PRN ORAL MUSCLE SPASM 08/19/19 01:30 09/18/19 01:29 Metoprolol Tartrate (Lopressor) 25 mg Q12HR ORAL 08/19/19 09:00 11/17/19 08:59 08/20/19 10:00 Mirtazapine (Remeron) 15 mg BEDTIME ORAL 08/20/19 21:00 11/18/19 20:59 Montelukast Sodium (Singulair) 10 mg QPM ORAL 08/19/19 16:30 11/17/19 16:29 08/19/19 16:20 Multivitamins (Multivitamins) 1 tab DAILY ORAL 08/19/19 09:00 09/18/19 08:59 08/20/19 10:02 Non-Formulary Medication (Non-Formulary Med) 1 ea DAILY ORAL 08/19/19 09:00 09/18/19 08:59 UNV Ondansetron HCl (Zofran) 4 mg Q6H PRN IVP Nausea & Vomiting 08/18/19 21:00 09/17/19 20:59 08/19/19 08:58 Ondansetron HCl (Zofran) 4 mg Q6H PRN ORAL Nausea & Vomiting 08/19/19 01:30 09/18/19 01:29 Oxycodone HCl (Roxicodone) 5 mg Q6H PRN ORAL Severe Pain (Pain Scale 7-10) 08/19/19 01:30 08/26/19 01:29 08/20/19 10:02 Pantoprazole (Protonix) 40 mg DAILY ORAL 08/19/19 09:00 09/18/19 08:59 08/20/19 10:00 Polyethylene Glycol (Miralax) 17 gm DAILY ORAL 08/19/19 09:00 09/18/19 08:59 08/20/19 10:03 Polyethylene Glycol (Miralax) 17 gm DAILYPRN PRN ORAL Constipation 08/18/19 21:00 09/17/19 20:59 Pregabalin (Lyrica) 75 mg TWICE A DAY ORAL 08/19/19 09:00 10/03/19 08:59 08/20/19 10:02 Sennosides (Senokot) 8.6 mg QHS ORAL 08/19/19 21:00 09/18/19 20:59 Zinc Sulfate (Zinc Sulfate) 220 mg DAILY ORAL 08/19/19 09:00 11/17/19 08:59 08/20/19 10:00 Rafael Lerma MD Aug 20, 2019 13:16
[2019-08-20 16:00] VITALS: BP 145/89
[2019-08-20] MEDS: Montelukast 10mg tablet ORAL SCH (17:39)
--- NOTE | 2019-08-20 18:58 | Consultation ---
History of Present Illness General Date patient seen: Aug 19, 2019 Chief Complaint: Dyspnea/Respdistress Reason for Consultation: gen weakness Present Illness HPI 78 year old woman with COPD, chronic respiratory failure, O2 dependent, chronic diastolic heart failure, HTN,h/o multiple UTIs, chronic pain, anxiety who presented from SNF with dry cough, shortness of breath, generalized weakness x 2 days. Patient resides in a [place] [facility] facility that has had positive coronavirus patients. She complains of body aches that are approximately 8 out of 10 nothing makes them better or worse. No reported fever or chills. In ED CXR showed "likely represent congestive heart failure with interstitial edema, patchy airspace edema, and a left pleural effusion. However, similarity to the prior exam raises possibility that there is also a chronic component. She was started on IV antibiotics for possible CAP, admitted for rule out COVID-19. Patient reports cough and body aches. Allergies: Coded Allergies: [place] (Unverified Allergy, Mild, upset stomach, 02/10/19) TOMATO (Unverified Allergy, Mild, upset stomach, 02/10/19) TETRACYCLINE (Unverified Allergy, Unknown, 07/24/14) Medication History Scheduled Amlodipine Besylate* (Amlodipine Besylate*), 10 MG ORAL DAILY, (Reported) Amoxicillin/Potassium Clav 875-125* (Augmentin 875-125 Tablet*), 1 TAB ORAL TWICE A DAY, (Reported) Ascorbic Acid* (Ascorbic Acid*), 500 MG ORAL DAILY, (Reported) Aspirin* (Aspirin*), 81 MG ORAL DAILY, (Reported) Azithromycin* (Zithromax*), 250 MG ORAL DAILY, (Reported) Calcium Carbonate/Vitamin D3 ([place] 500+D Tablet), 1 EACH PO DAILY, (Reported) Clonazepam* (Klonopin*), 0.5 MG ORAL BID Dicyclomine Hcl (Dicyclomine Hcl), 20 MG PO DAILY, (Reported) Docusate Sodium* (Colace*), 100 MG ORAL BID, (Reported) Dronabinol* (Marinol*), 2.5 MG ORAL BID Escitalopram Oxalate* (Lexapro*), 20 MG ORAL DAILY, (Reported) Escitalopram Oxalate* (Lexapro*), 20 MG ORAL DAILY, (Reported) Ferrous Sulfate* (Ferrous Sulfate*), 325 MG ORAL DAILY, (Reported) Fluticasone Propionate (Flovent Hfa), 2 PUFFS INH DAILY, (Reported) Fluticasone Propionate (Flonase Allergy Relief), 1 SPRAYS NS DAILY, (Reported) Lisinopril (Lisinopril*), 20 MG ORAL DAILY, (Reported) Magnesium (Magnesium), 200 MG PO QD, (Reported) Metoprolol Tartrate (Metoprolol Tartrate), 25 MG ORAL Q12HR Mirtazapine* (Mirtazapine*), 7.5 MG ORAL BEDTIME, (Reported) Montelukast Sodium* (Montelukast Sodium*), 10 MG ORAL DAILY, (Reported) Multivitamin (Multivitamins), 1 EACH PO QD, (Reported) Pantoprazole* (Protonix*), 40 MG ORAL DAILY, (Reported) Polyethylene Glycol 3350* (Miralax*), 17 GM ORAL DAILY, (Reported) Polyethylene Glycol 3350* (Miralax*), 17 GM ORAL DAILY, (Reported) Pregabalin* (Lyrica*), 75 MG ORAL TWICE A DAY, (Reported) Rosuvastatin Calcium* (Crestor*), 20 MG ORAL DAILY, (Reported) Rosuvastatin Calcium* (Crestor*), 20 MG ORAL BEDTIME, (Reported) Sennosides (Senna Laxative), 8.6 MG PO QHS, (Reported) Zinc Sulfate (Zinc Sulfate*), 220 MG ORAL DAILY [Bevespi Aerosphere ], 2 PUFFS INH BID, (Reported) Scheduled PRN Acetaminophen* (Acetaminophen 325MG Tablet*), 650 MG ORAL Q4H PRN for Mild Pain (Pain Scale 1-3), (Reported) Acetylcysteine* (Acetylcysteine*), 200 MG HHN Q4HR PRN for CONGESTION, (Reported ) Benzonatate* (Tessalon Perle*), 100 MG ORAL THREE TIMES A DAY PRN for For Cough, (Reported) Bisacodyl (Dulcolax), 10 MG RC PRN PRN for Constipation, (Reported) Ipratropium [place] (Atrovent Hfa), 1 UNIT HHN Q6HR PRN for SOB/WHEEZING, ( Reported) Lactulose (Lactulose*), 30 ML ORAL DAILY PRN for Constipation, (Reported) Levalbuterol Hcl (Xopenex*), 0.63 MG HHN Q6H PRN for SOB/WHEEZING, (Reported) Mag Hydrox/Al Hydrox/Simeth* (Advanced Antacid Liquid*), 20 ML ORAL Q4HR PRN for INDIGESTION, (Reported) Methocarbamol* (Robaxin-500*), 500 MG ORAL Q6H PRN Ondansetron* (Zofran*), 4 MG ORAL Q6HR PRN for Nausea & Vomiting, (Reported) Oxycodone Hcl* (Oxycodone Hcl*), 5 MG ORAL Q6H PRN for For Pain, (Reported) Patient History Healthcare decision maker Resuscitation status Full Code Advanced Directive on File Physical Exam Physical Exam Narrative somnolent moves all 4 Last 24 Hour Vital Signs Date Time Temp Pulse Resp B/P (MAP) Pulse Ox O2 Delivery O2 Flow Rate FiO2 08/20/19 16:00 98.3 86 20 145/89 (107) 97 08/20/19 16:00 87 08/20/19 13:41 Room Air 21 08/20/19 13:41 Room Air 21 08/20/19 12:00 76 08/20/19 12:00 98.3 90 21 135/93 (107) 97 08/20/19 10:03 104 138/82 08/20/19 10:00 104 138/82 08/20/19 10:00 138/82 08/20/19 09:00 Nasal Cannula 2.0 08/20/19 08:00 98.1 104 20 138/82 (100) 96 08/20/19 08:00 93 08/20/19 07:30 Room Air 21 08/20/19 07:30 Room Air 21 08/20/19 04:00 98.4 89 19 139/73 (95) 96 08/20/19 04:00 91 08/20/19 01:03 81 20 97 Nasal Cannula 2.0 28 08/20/19 01:02 81 20 97 Nasal Cannula 2.0 28 08/20/19 00:00 94 08/20/19 00:00 97.9 110 19 154/89 (110) 96 08/19/19 21:38 115 151/91 08/19/19 21:00 Nasal Cannula 4.0 08/19/19 20:00 97.2 115 19 157/91 (113) 90 08/19/19 20:00 113 08/19/19 19:46 93 22 97 Nasal Cannula 2.0 28 08/19/19 19:46 93 22 97 Nasal Cannula 2.0 28 Intake and Output 08/19/19 08/20/19 19:00 07:00 Intake Total 810 ml Output Total 1 ml 1 ml Balance 809 ml -1 ml Intake Oral 260 ml IV Total 550 ml Output Urine Total 1 ml 1 ml Stool Total 0 ml 0 ml # Voids 1 100 Laboratory Tests Test 08/20/19 06:40 08/20/19 10:20 White Blood Count 4.4 K/UL (4.8-10.8) L Red Blood Count 3.54 M/UL (4.20-5.40) L Hemoglobin 10.7 G/DL (12.0-16.0) L Hematocrit 31.4 % (37.0-47.0) L Mean Corpuscular Volume 89 FL (80-99) Mean Corpuscular Hemoglobin 30.4 PG (27.0-31.0) Mean Corpuscular Hemoglobin Concent 34.2 G/DL (32.0-36.0) Red Cell Distribution Width 11.7 % (11.6-14.8) Platelet Count 165 K/UL (150-450) Mean Platelet Volume 7.0 FL (6.5-10.1) Neutrophils (%) (Auto) 61.0 % (45.0-75.0) Lymphocytes (%) (Auto) 27.4 % (20.0-45.0) Monocytes (%) (Auto) 10.2 % (1.0-10.0) H Eosinophils (%) (Auto) 0.7 % (0.0-3.0) Basophils (%) (Auto) 0.7 % (0.0-2.0) Sodium Level 134 MMOL/L (136-145) L Potassium Level 3.7 MMOL/L (3.5-5.1) Chloride Level 94 MMOL/L (98-107) L Carbon Dioxide Level 23 MMOL/L (21-32) Anion Gap 17 mmol/L (5-15) H Blood Urea Nitrogen 8 mg/dL (7-18) Creatinine 0.4 MG/DL (0.55-1.30) L Estimat Glomerular Filtration Rate > 60 mL/min (>60) Glucose Level 78 MG/DL (74-106) Calcium Level 9.3 MG/DL (8.5-10.1) Total Bilirubin 0.3 MG/DL (0.2-1.0) Aspartate Amino Transf (AST/SGOT) 27 U/L (15-37) Alanine Aminotransferase (ALT/SGPT) 20 U/L (12-78) Alkaline Phosphatase 112 U/L (46-116) Troponin I 0.009 ng/mL (0.000-0.056) Total Protein 7.3 G/DL (6.4-8.2) Albumin 3.4 G/DL (3.4-5.0) Globulin 3.9 g/dL Albumin/Globulin Ratio 0.9 (1.0-2.7) L Thyroid Stimulating Hormone (TSH) 0.333 uiU/mL (0.358-3.740) Urine Color Pale yellow Urine Appearance Clear Urine pH 7 (4.5-8.0) Urine Specific [place] 1.010 (1.005-1.035) Urine Protein 2+ (NEGATIVE) H Urine Glucose (UA) Negative (NEGATIVE) Urine Ketones 4+ (NEGATIVE) H Urine Blood 2+ (NEGATIVE) H Urine Nitrite Negative (NEGATIVE) Urine Bilirubin Negative (NEGATIVE) Urine Urobilinogen Normal MG/DL (0.0-1.0) Urine Leukocyte Esterase 1+ (NEGATIVE) H Urine RBC 2-4 /HPF (0 - 2) H Urine WBC 0-2 /HPF (0 - 2) Urine Squamous Epithelial Cells Occasional /LPF Urine Bacteria Occasional /HPF (NONE) Height (Feet): 5 Height (Inches): 0.00 Weight (Pounds): 100 Medications Current Medications Medications (Trade) Dose Ordered Sig/Wilner Route PRN Reason Start Time Stop Time Status Last Admin Dose Admin Acetaminophen (Tylenol) 650 mg Q4H PRN ORAL Mild Pain (Pain Scale 1-3) 08/19/19 01:30 09/18/19 01:29 08/20/19 15:18 Al Hydroxide/Mg Hydroxide (Mylanta II) 20 ml Q4H PRN ORAL INDIGESTION 08/19/19 01:30 09/18/19 01:29 08/19/19 13:46 Albuterol Sulfate (Proventil MDI) 2 puff Q6HRT PRN INH Shortness of Breath 08/19/19 03:15 11/17/19 03:14 Amlodipine Besylate (Norvasc) 10 mg DAILY ORAL 08/19/19 09:00 09/18/19 08:59 08/20/19 10:03 Ascorbic Acid (Vitamin C) 500 mg DAILY ORAL 08/19/19 09:00 09/18/19 08:59 08/20/19 10:03 Aspirin (ASA) 81 mg DAILY ORAL 08/19/19 09:00 10/03/19 08:59 08/20/19 10:01 Atorvastatin Calcium (Lipitor) 40 mg BEDTIME ORAL 08/19/19 21:00 11/17/19 20:59 08/19/19 21:38 Azithromycin (Zithromax) 250 mg Q24H ORAL 08/20/19 06:00 08/27/19 05:59 08/20/19 07:03 Benzonatate (Tessalon Perles) 100 mg TIDPRN PRN ORAL cough 08/18/19 21:15 09/17/19 21:14 Bisacodyl (Dulcolax) 10 mg DAILY PRN RECTAL Constipation 08/19/19 01:30 11/17/19 01:29 Calcium/Vitamin D (OsCal D) 1 tab DAILY ORAL 08/19/19 09:00 11/17/19 08:59 08/20/19 10:03 Ceftriaxone Sodium 1 gm/ Sodium Chloride 55 ml @ 110 mls/hr Q24HRS IVPB 08/18/19 23:00 08/25/19 22:59 08/19/19 23:27 Clonazepam (KlonoPIN) 0.5 mg BID ORAL 08/19/19 09:00 08/26/19 08:59 08/20/19 17:39 Dextrose (Dextrose 50%) 25 ml Q30M PRN IV Hypoglycemia 08/18/19 21:00 11/16/19 20:59 Dextrose (Dextrose 50%) 50 ml Q30M PRN IV Hypoglycemia 08/18/19 21:00 11/16/19 20:59 Docusate Sodium (Colace) 100 mg EVERY 12 HOURS ORAL 08/18/19 21:00 09/17/19 20:59 08/20/19 09:59 Dronabinol (Marinol) 2.5 mg BID ORAL 08/19/19 09:00 11/17/19 08:59 08/20/19 17:40 Ferrous Sulfate (Feosol) 325 mg DAILY ORAL 08/19/19 09:00 11/17/19 08:59 08/20/19 10:00 Fluticasone Propionate (Flonase) 1 spray DAILY NASAL 08/19/19 09:00 09/18/19 08:59 08/20/19 10:03 Fluticasone Propionate (Flovent 110 mcg) 2 puff DAILY INH 08/19/19 09:00 09/18/19 08:59 08/19/19 07:37 Heparin Sodium (Porcine) (Heparin 5000 units/ml) 5,000 units EVERY 8 HOURS SUBQ 08/19/19 00:00 10/03/19 00:00 08/20/19 14:17 Hydralazine HCl (Apresoline) 10 mg Q6H PRN ORAL For High Blood Pressure 08/19/19 01:30 11/17/19 01:29 Hydroxychloroquine Sulfate (Plaquenil) 200 mg Q12H ORAL 08/20/19 21:00 08/24/19 09:01 Ipratropium [place] (Atrovent Inh) 1 puffs Q6HRT INH 08/19/19 07:00 09/18/19 06:59 08/20/19 01:03 Lactulose (Cephulac) 20 gm DAILY PRN ORAL Constipation 08/19/19 01:30 09/18/19 01:29 Lisinopril (PriniviL) 20 mg DAILY ORAL 08/19/19 09:00 09/18/19 08:59 08/20/19 10:00 Magnesium Oxide (Mag-Ox 400mg) 200 mg DAILY ORAL 08/19/19 09:00 09/18/19 08:59 08/20/19 10:00 Methocarbamol (Robaxin) 500 mg Q6H PRN ORAL MUSCLE SPASM 08/19/19 01:30 09/18/19 01:29 Metoprolol Tartrate (Lopressor) 25 mg Q12HR ORAL 08/19/19 09:00 11/17/19 08:59 08/20/19 10:00 Mirtazapine (Remeron) 15 mg BEDTIME ORAL 08/20/19 21:00 11/18/19 20:59 Montelukast Sodium (Singulair) 10 mg QPM ORAL 08/19/19 16:30 11/17/19 16:29 08/20/19 17:39 Multivitamins (Multivitamins) 1 tab DAILY ORAL 08/19/19 09:00 09/18/19 08:59 08/20/19 10:02 Non-Formulary Medication (Non-Formulary Med) 1 ea DAILY ORAL 08/19/19 09:00 09/18/19 08:59 UNV Ondansetron HCl (Zofran) 4 mg Q6H PRN IVP Nausea & Vomiting 08/18/19 21:00 09/17/19 20:59 08/19/19 08:58 Ondansetron HCl (Zofran) 4 mg Q6H PRN ORAL Nausea & Vomiting 08/19/19 01:30 09/18/19 01:29 Oxycodone HCl (Roxicodone) 5 mg Q6H PRN ORAL Severe Pain (Pain Scale 7-10) 08/19/19 01:30 08/26/19 01:29 08/20/19 17:40 Pantoprazole (Protonix) 40 mg DAILY ORAL 08/19/19 09:00 09/18/19 08:59 08/20/19 10:00 Polyethylene Glycol (Miralax) 17 gm DAILY ORAL 08/19/19 09:00 09/18/19 08:59 08/20/19 10:03 Polyethylene Glycol (Miralax) 17 gm DAILYPRN PRN ORAL Constipation 08/18/19 21:00 09/17/19 20:59 Pregabalin (Lyrica) 75 mg TWICE A DAY ORAL 08/19/19 09:00 10/03/19 08:59 08/20/19 17:40 Sennosides (Senokot) 8.6 mg QHS ORAL 08/19/19 21:00 09/18/19 20:59 Zinc Sulfate (Zinc Sulfate) 220 mg DAILY ORAL 08/19/19 09:00 11/17/19 08:59 08/20/19 10:00 Assessment/Plan Problem List: (1) Hypokalemia ICD Codes: E87.6 - Hypokalemia SNOMED: 30618075 (2) Abdominal pain ICD Codes: R10.9 - Unspecified abdominal pain SNOMED: 60892498 (3) Therapeutic opioid-induced constipation (OIC) ICD Codes: K59.03 - Drug induced constipation; T40.2X5A - Adverse effect of other opioids, initial encounter SNOMED: 024410912557984 (4) Shortness of breath ICD Codes: R06.02 - Shortness of breath SNOMED: 705441920 (5) Diastolic CHF ICD Codes: I50.30 - Unspecified diastolic (congestive) heart failure SNOMED: 57239038, 099446125 (6) Anemia ICD Codes: D64.9 - Anemia, unspecified SNOMED: 419144136 (7) Anxiety ICD Codes: F41.9 - Anxiety disorder, unspecified SNOMED: 52187220 (8) Hypercholesteremia ICD Codes: E78.00 - Pure hypercholesterolemia, unspecified SNOMED: 57067018 (9) Hyponatremia ICD Codes: E87.1 - Hypo-osmolality and hyponatremia SNOMED: 79464649 (10) Hypertension ICD Codes: I10 - Essential (primary) hypertension SNOMED: 87497188 (11) Severe sepsis ICD Codes: A41.9 - Sepsis, unspecified organism; R65.20 - Severe sepsis without septic shock SNOMED: 45570361 (12) History of breast cancer ICD Codes: Z85.3 - Personal history of malignant neoplasm of breast SNOMED: 377772794 (13) Respiratory failure with hypoxia ICD Codes: J96.91 - Respiratory failure, unspecified with hypoxia SNOMED: 20730865378329358 (14) Protein-calorie malnutrition, mild ICD Codes: E44.1 - Mild protein-calorie malnutrition SNOMED: 13027840 (15) GERD (gastroesophageal reflux disease) ICD Codes: K21.9 - Gastro-esophageal reflux disease without esophagitis SNOMED: 113528798 (16) Cough ICD Codes: R05 - Cough SNOMED: 22615156 (17) Dysphagia ICD Codes: R13.10 - Dysphagia, unspecified SNOMED: 36841361, 763100446 (18) SOB (shortness of breath) ICD Codes: R06.02 - Shortness of breath SNOMED: 757995793 (19) Pleural effusion ICD Codes: J90 - Pleural effusion, not elsewhere classified SNOMED: 95737703 (20) Renal failure ICD Codes: N19 - Unspecified kidney failure SNOMED: 88319940 (21) Allergic rhinitis ICD Codes: J30.9 - Allergic rhinitis, unspecified SNOMED: 95915279 (22) Constipation ICD Codes: K59.00 - Constipation, unspecified SNOMED: 33894181 (23) Osteoporosis ICD Codes: M81.0 - Age-related osteoporosis without current pathological fracture SNOMED: 63293717 (24) Aspiration pneumonia ICD Codes: J69.0 - Pneumonitis due to inhalation of food and vomit SNOMED: 472013058 (25) Tracheobronchitis ICD Codes: J40 - Bronchitis, not specified as acute or chronic SNOMED: 32195453 (26) Collapse of left lung ICD Codes: J98.11 - Atelectasis SNOMED: 34136039 (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 ICD Codes: J98.09 - Other diseases of bronchus, not elsewhere classified SNOMED: 42295648 (28) Respiratory failure requiring intubation ICD Codes: J96.90 - Respiratory failure, unspecified, unspecified whether with hypoxia or hypercapnia SNOMED: 207087282 (29) Limited mobility ICD Codes: Z74.09 - Other reduced mobility SNOMED: 5891935 (30) Acute metabolic encephalopathy ICD Codes: G93.41 - Metabolic encephalopathy SNOMED: 00365718, 444819717 (31) Decubitus skin ulcer ICD Codes: L89.90 - Pressure ulcer of unspecified site, unspecified stage SNOMED: 890344890 (32) Leukocytosis ICD Codes: D72.829 - Elevated white blood cell count, unspecified SNOMED: 550322622, 348021243 (33) Gram-negative bacteremia ICD Codes: R78.81 - Bacteremia SNOMED: 251372877667 (34) COPD (chronic obstructive pulmonary disease) ICD Codes: J44.9 - Chronic obstructive pulmonary disease, unspecified SNOMED: 07263626 (35) Chronic respiratory failure with hypoxia ICD Codes: J96.11 - Chronic respiratory failure with hypoxia SNOMED: 000804641 (36) Lumbar radiculopathy ICD Codes: M54.16 - Lumbar radiculopathy SNOMED: 730083270 (37) Fibromyalgia ICD Codes: M79.7 - Fibromyalgia SNOMED: 40259710 (38) Cervical spondylosis ICD Codes: M47.812 - Cervical spondylosis SNOMED: 700981330 (39) Diastolic CHF, acute on chronic ICD Codes: I50.33 - Acute on chronic diastolic (congestive) heart failure SNOMED: 621533420, 254906134 (40) Lumbar spondylosis ICD Codes: M47.816 - Lumbar spondylosis SNOMED: 951591272 (41) Acute and chronic respiratory failure ([id number]) ICD Codes: J96.20 - Acute and chr resp failure, unsp w hypoxia or hypercapnia SNOMED: 81163239 (42) Pneumonia ICD Codes: J18.9 - Pneumonia, unspecified organism SNOMED: 805692490 (43) Cervical radiculopathy ICD Codes: M54.12 - Cervical radiculopathy SNOMED: 83278135 (44) DDD (degenerative disc disease), cervical ICD Codes: M50.30 - DDD (degenerative disc disease), cervical SNOMED: 61026529 (45) DDD (degenerative disc disease), lumbar ICD Codes: M51.36 - DDD (degenerative disc disease), lumbar SNOMED: 10609116 (46) Troponin level elevated ICD Codes: R78.89 - Troponin level elevated SNOMED: 352820201 (47) UTI (urinary tract infection) ICD Codes: N39.0 - Urinary tract infection, site not specified SNOMED: 22448156 Assessment/Plan: acute encephalopathy and gen weakness likely metabolic in the setting of possible covid and resp faikure myalgias GEn pain Depression COVID rule out atb per primary management of fluids nad hyponatremia pt ot delirium precautions Quentin Giron MD Aug 20, 2019 18:58
--- NOTE | 2019-08-20 18:59 | Neurology Progress Note ---
Interim History Interim History ROS Limited/Unobtainable: No Interim History no new neuro deficits, pending covid Objective Physical Exam Last Vital Signs Date Time Temp Pulse Resp B/P (MAP) Pulse Ox O2 Delivery O2 Flow Rate FiO2 08/20/19 16:00 98.3 86 20 145/89 (107) 97 08/20/19 13:41 Room Air 21 08/20/19 09:00 2.0 Laboratory Tests Test 08/20/19 06:40 08/20/19 10:20 White Blood Count 4.4 K/UL (4.8-10.8) L Red Blood Count 3.54 M/UL (4.20-5.40) L Hemoglobin 10.7 G/DL (12.0-16.0) L Hematocrit 31.4 % (37.0-47.0) L Mean Corpuscular Volume 89 FL (80-99) Mean Corpuscular Hemoglobin 30.4 PG (27.0-31.0) Mean Corpuscular Hemoglobin Concent 34.2 G/DL (32.0-36.0) Red Cell Distribution Width 11.7 % (11.6-14.8) Platelet Count 165 K/UL (150-450) Mean Platelet Volume 7.0 FL (6.5-10.1) Neutrophils (%) (Auto) 61.0 % (45.0-75.0) Lymphocytes (%) (Auto) 27.4 % (20.0-45.0) Monocytes (%) (Auto) 10.2 % (1.0-10.0) H Eosinophils (%) (Auto) 0.7 % (0.0-3.0) Basophils (%) (Auto) 0.7 % (0.0-2.0) Sodium Level 134 MMOL/L (136-145) L Potassium Level 3.7 MMOL/L (3.5-5.1) Chloride Level 94 MMOL/L (98-107) L Carbon Dioxide Level 23 MMOL/L (21-32) Anion Gap 17 mmol/L (5-15) H Blood Urea Nitrogen 8 mg/dL (7-18) Creatinine 0.4 MG/DL (0.55-1.30) L Estimat Glomerular Filtration Rate > 60 mL/min (>60) Glucose Level 78 MG/DL (74-106) Calcium Level 9.3 MG/DL (8.5-10.1) Total Bilirubin 0.3 MG/DL (0.2-1.0) Aspartate Amino Transf (AST/SGOT) 27 U/L (15-37) Alanine Aminotransferase (ALT/SGPT) 20 U/L (12-78) Alkaline Phosphatase 112 U/L (46-116) Troponin I 0.009 ng/mL (0.000-0.056) Total Protein 7.3 G/DL (6.4-8.2) Albumin 3.4 G/DL (3.4-5.0) Globulin 3.9 g/dL Albumin/Globulin Ratio 0.9 (1.0-2.7) L Thyroid Stimulating Hormone (TSH) 0.333 uiU/mL (0.358-3.740) Urine Color Pale yellow Urine Appearance Clear Urine pH 7 (4.5-8.0) Urine Specific [place] 1.010 (1.005-1.035) Urine Protein 2+ (NEGATIVE) H Urine Glucose (UA) Negative (NEGATIVE) Urine Ketones 4+ (NEGATIVE) H Urine Blood 2+ (NEGATIVE) H Urine Nitrite Negative (NEGATIVE) Urine Bilirubin Negative (NEGATIVE) Urine Urobilinogen Normal MG/DL (0.0-1.0) Urine Leukocyte Esterase 1+ (NEGATIVE) H Urine RBC 2-4 /HPF (0 - 2) H Urine WBC 0-2 /HPF (0 - 2) Urine Squamous Epithelial Cells Occasional /LPF Urine Bacteria Occasional /HPF (NONE) General: well nourished Head: normocophalic Neck: no rigidity Neurologic Exam Mental Status: awake Objective moves all 4 symmetric Impression/Recommendations Problems: (1) Hypokalemia (2) Abdominal pain (3) Therapeutic opioid-induced constipation (OIC) (4) Shortness of breath (5) Diastolic CHF (6) Anemia (7) Anxiety (8) Hypercholesteremia (9) Hyponatremia (10) Hypertension (11) Severe sepsis (12) History of breast cancer (13) Respiratory failure with hypoxia (14) Protein-calorie malnutrition, mild (15) GERD (gastroesophageal reflux disease) (16) Cough (17) Dysphagia (18) SOB (shortness of breath) (19) Pleural effusion (20) Renal failure (21) Allergic rhinitis (22) Constipation (23) Osteoporosis (24) Aspiration pneumonia (25) Tracheobronchitis (26) Collapse of left lung (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 (28) Respiratory failure requiring intubation (29) Limited mobility (30) Acute metabolic encephalopathy (31) Decubitus skin ulcer (32) Leukocytosis (33) Gram-negative bacteremia (34) COPD (chronic obstructive pulmonary disease) (35) Chronic respiratory failure with hypoxia (36) Lumbar radiculopathy (37) Fibromyalgia (38) Cervical spondylosis (39) Diastolic CHF, acute on chronic (40) Lumbar spondylosis (41) Acute and chronic respiratory failure ([id number]) (42) Pneumonia (43) Cervical radiculopathy (44) DDD (degenerative disc disease), cervical (45) DDD (degenerative disc disease), lumbar (46) Troponin level elevated (47) UTI (urinary tract infection) Diagnostic Impression acute encephalopathy and gen weakness likely metabolic in the setting of possible covid and resp faikure myalgias GEn pain Depression COVID rule out atb per primary management of fluids nad hyponatremia pt ot delirium precautions Quentin Giron MD Aug 20, 2019 18:59
[2019-08-20 20:00] VITALS: BP 132/76
[2019-08-20] MEDS: Atorvastatin 20mg tab ORAL SCH (21:40)
[2019-08-20] MEDS: Sennosides 8.6mg tab ORAL SCH (21:40)
[2019-08-20] MEDS: cefTRIAXone 1 GM in NS 55 ML IVPB SCH (23:25)
[2019-08-20] MEDS: Benzonatate 100mg Perles ORAL PRN (23:25)
[2019-08-21] VITALS: BP 120/82
[2019-08-21] MEDS: Ipratropium Bromide Inhaler INH SCH ×4 (00:47→19:20)
[2019-08-21 04:00] VITALS: BP 138/80
[2019-08-21] MEDS: Heparin 5000 units/ml inj SUBQ SCH ×3 (04:40→22:00)
[2019-08-21] MEDS: Azithromycin 250mg tab ORAL SCH (05:15)
[2019-08-21] MEDS: oxyCODONE 5mg IR tab ORAL PRN ×3 (07:12→21:43)
[2019-08-21] MEDS: Benzonatate 100mg Perles ORAL PRN ×3 (07:12→14:08)
[2019-08-21 08:00] VITALS: BP 142/80
[2019-08-21] MEDS: Zinc Sulfate 220mg cap ORAL SCH (08:32)
[2019-08-21] MEDS: Magnesium Oxide 400mg tab ORAL SCH (08:32)
[2019-08-21] MEDS: Ascorbic Acid 500mg tab ORAL SCH (08:32)
[2019-08-21] MEDS: Miralax 17gm pkt ORAL SCH (08:32)
[2019-08-21] MEDS: Lyrica 75mg cap ORAL SCH ×2 (08:33→17:24)
[2019-08-21] MEDS: Calcium Carbonate 500mg w/Vit D 200iu tab ORAL SCH (08:33)
[2019-08-21] MEDS: Docusate 100mg cap ORAL SCH ×2 (08:33→21:11)
[2019-08-21] MEDS: Dronabinol 2.5mg Cap ORAL SCH ×2 (08:33→17:24)
[2019-08-21] MEDS: clonazePAM 0.5mg tab ORAL SCH ×2 (08:33→17:24)
[2019-08-21] MEDS: Aspirin Baby 81mg ORAL SCH (08:40)
[2019-08-21] MEDS: Lisinopril 20mg tab ORAL SCH (08:40)
[2019-08-21] MEDS: Flonase Nasal Inhaler 16gm NASAL SCH (09:00)
--- NOTE | 2019-08-21 09:05 | General Progress Note ---
Assessment/Plan Assessment/Plan: 78 year old woman SNF resident with chronic resp failure due to COPD, HTN, chronic dCHF, chronic pain, depression, anxiety, chronic right hydronephrosis who presented from SNF with dyspnea, cough body aches, COVID-19 positive #Acute on chronic hypoxic resp failure #Acute bronchitis #COVID-19 POSITIVE #COPD -cont. inpatient medical care -Inhaled bronchodilators prn -Continue supplemental oxygen -COVID-19 positive -Will defer systemic steroid use to Pulm -abx per ID: CTX, hydroxychloroquine, azithro -ID and Pulm consulted, recs appreciated #Hyponatremia - likely hypovolumic - r/o SIADH in the setting of pulmonary infection -Nephro following, recs appreciated #HTN #Chronic diastolic CHF -Cont outpatient meds lisinopril 20 daily, MTP 25 BID, amlodipine 10 q daily #Depression #Chronic pain #Anxiety disorder #Osteoarthritis -Continue qhs Mirtazapine. -Continue pregabalin 75 mg BID -Continue home Dronabinol 2.5 mg BID -Continue Clonazepam 0.5 mg BID -Continue Oxycodone 5 mg q6h prn -Psych consulted - recs appreciated #GERD -cont. PPI #Chronic right hydronephrosis #Left hemorrhagic renal cyst #Nephrolithiasis #Hematuria I spent 35 minutes on this patient's case, and 50% was dedicated to counseling and/or care coordination witch included communication with RN, consulting MDs, case management Subjective Allergies: Coded Allergies: [place] (Unverified Allergy, Mild, upset stomach, 02/10/19) TOMATO (Unverified Allergy, Mild, upset stomach, 02/10/19) TETRACYCLINE (Unverified Allergy, Unknown, 07/24/14) Subjective Follow-up for acute on chronic hypoxic respiratory failure. Patient states she continues to have cough, states it is stable compared to previous day. Denies any F/C, S OB at this time. Objective Last 24 Hour Vital Signs Date Time Temp Pulse Resp B/P (MAP) Pulse Ox O2 Delivery O2 Flow Rate FiO2 08/21/19 08:40 140/80 08/21/19 08:33 80 140/80 08/21/19 08:32 80 140/80 08/21/19 04:00 87 08/21/19 04:00 98.0 84 22 138/80 (99) 96 08/21/19 00:48 81 20 98 Nasal Cannula 2.0 28 08/21/19 00:47 81 20 97 Nasal Cannula 2.0 28 08/21/19 00:00 78 08/21/19 00:00 98.0 82 20 120/82 (95) 97 08/20/19 21:40 91 135/89 08/20/19 21:00 Nasal Cannula 2.0 08/20/19 20:22 85 20 97 Nasal Cannula 2.0 28 08/20/19 20:20 85 20 95 Room Air 21 08/20/19 20:00 95 08/20/19 20:00 98.1 89 20 132/76 (94) 96 08/20/19 16:00 98.3 86 20 145/89 (107) 97 08/20/19 16:00 87 08/20/19 13:41 Room Air 21 08/20/19 13:41 Room Air 21 08/20/19 12:00 76 08/20/19 12:00 98.3 90 21 135/93 (107) 97 08/20/19 10:03 104 138/82 08/20/19 10:00 104 138/82 08/20/19 10:00 138/82 Intake and Output 08/20/19 08/21/19 19:00 07:00 Intake Total 480 ml Balance 480 ml Intake Oral 480 ml # Voids 2 Laboratory Tests 08/20/19 10:20: Urine Color Pale yellow, Urine Appearance Clear, Urine pH 7, Urine Specific [place] 1.010, Urine Protein 2+H, Urine Glucose (UA) Negative, Urine Ketones 4+H , Urine Blood 2+H, Urine Nitrite Negative, Urine Bilirubin Negative, Urine Urobilinogen Normal, Urine Leukocyte Esterase 1+H, Urine RBC 2-4H, Urine WBC 0-2 , Urine Squamous Epithelial Cells Occasional, Urine Bacteria Occasional Height (Feet): 5 Height (Inches): 0.00 Weight (Pounds): 100 Objective General Appearance: no apparent distress, alert HEENT: atraumatic, anicteric Neck: normal alignment, supple Respiratory/Chest: no respiratory distress, no accessory muscle use, other - Bilateral rhonchi Cardiovascular/Chest: normal rate, regular rhythm Abdomen: non tender, soft, +BS Ext: no edema Morgan Lutz M.D. Aug 21, 2019 09:05
[2019-08-21] MEDS: Flovent 110mcg Inhaler - 12gm INH SCH (11:32)
[2019-08-21 11:43] VITALS: BP 136/72
[2019-08-21 12:46] LABS: BASOPHILS % (AUTO) 1.6 % (0.0-2.0); EOSINOPHILS % (AUTO) 1.3 % (0.0-3.0); HEMATOCRIT 30.3 % (37.0-47.0); HEMOGLOBIN 10.2 G/DL (12.0-16.0); LYMPHOCYTES % (AUTO) 30.3 % (20.0-45.0); MEAN CORPUSCULAR VOLUME 89 FL (80-99); MONOCYTES % (AUTO) 7.7 % (1.0-10.0); NEUTROPHILS % (AUTO) 59.1 % (45.0-75.0); PLATELET COUNT 185 K/UL (150-450); RED BLOOD COUNT 3.42 M/UL (4.20-5.40); RED CELL DISTRIBUTION WIDTH 11.5 % (11.6-14.8); WHITE BLOOD COUNT 4.1 K/UL (4.8-10.8)
[2019-08-21 13:00] LABS: BLOOD UREA NITROGEN 12 mg/dL (7-18); CALCIUM 9.3 MG/DL (8.5-10.1); CHLORIDE 96 MMOL/L (98-107)
[2019-08-21 13:01] LABS: ANION GAP 12 mmol/L (5-15); CARBON DIOXIDE 27 MMOL/L (21-32); CREATININE 0.6 MG/DL (0.55-1.30); POTASSIUM 3.9 MMOL/L (3.5-5.1); SODIUM 135 MMOL/L (136-145)
[2019-08-21 15:33] VITALS: BP 106/56
[2019-08-21] MEDS: Montelukast 10mg tablet ORAL SCH (16:28)
--- NOTE | 2019-08-21 16:48 | Pulmonology Progress Note ---
Assessment/Plan Assessment/Plan ASSESSMENT: The patient is a 78-year-old female with a history of COPD, diastolic dysfunction, CHF, breast cancer, anemia, admitted with COVID 19 PNA PROBLEM LIST: 1. COVID19 PNA 2. Acute hypoxemic respiratory failure. 3. COPD. 4. CHF with diastolic dysfunction. 5. History of mucus plugging. 6. History of breast cancer. 7. Anemia. 8. Hyponatremia. 9. Dementia. 10. 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 11. Dysphagia. TREATMENT PLAN: 1. Optimize pulmonary hygiene/mobilize as tolerated. 2. Titrate down FiO2 to keep saturations greater than 90%. 3. Sibzy-otp-uscaw and p.r.n. albuterol and Atrovent metered-dose inhalers via spacer. 4. No nebulizers. 5. Pred 40 (D1) 6. Continue ceftriaxone and azithromycin for now; however, if signs of worsening respiratory infection, we would consider broadening to cover healthcare-associated pathogens. 7. Monitor volumes and renal function. 8. DVT prophylaxis, heparin subcu. 9. Continue Singulair. 10. Continue fluticasone inhaler b.i.d. 11. Continue Tessalon t.i.d. p.r.n. 12. Continue Mucinex and p.r.n. Robitussin. Subjective Allergies: Coded Allergies: [place] (Unverified Allergy, Mild, upset stomach, 02/10/19) TOMATO (Unverified Allergy, Mild, upset stomach, 02/10/19) TETRACYCLINE (Unverified Allergy, Unknown, 07/24/14) Subjective NAEO AFVSS on 2L + cough + SOB no FC no CP Objective Last 24 Hour Vital Signs Date Time Temp Pulse Resp B/P (MAP) Pulse Ox O2 Delivery O2 Flow Rate FiO2 08/21/19 15:33 98.0 85 22 106/56 (73) 96 08/21/19 13:49 Room Air 21 08/21/19 13:49 Room Air 21 08/21/19 11:44 75 08/21/19 11:43 98.0 79 22 136/72 (93) 96 08/21/19 09:03 98.0 08/21/19 08:40 140/80 08/21/19 08:33 80 140/80 08/21/19 08:32 80 140/80 08/21/19 08:00 98.0 84 22 142/80 (100) 96 08/21/19 07:59 79 08/21/19 07:00 Room Air 21 08/21/19 07:00 Nasal Cannula 2.0 28 08/21/19 04:00 87 08/21/19 04:00 98.0 84 22 138/80 (99) 96 08/21/19 00:48 81 20 98 Nasal Cannula 2.0 28 08/21/19 00:47 81 20 97 Nasal Cannula 2.0 28 08/21/19 00:00 78 08/21/19 00:00 98.0 82 20 120/82 (95) 97 08/20/19 21:40 91 135/89 08/20/19 21:00 Nasal Cannula 2.0 08/20/19 20:22 85 20 97 Nasal Cannula 2.0 28 08/20/19 20:20 85 20 95 Room Air 21 08/20/19 20:00 95 08/20/19 20:00 98.1 89 20 132/76 (94) 96 Intake and Output 08/20/19 08/21/19 19:00 07:00 Intake Total 480 ml Balance 480 ml Intake Oral 480 ml # Voids 2 General Appearance: no acute distress, cachetic HEENT: normocephalic, atraumatic, anicteric, mucous membranes moist Respiratory/Chest: rhonchi Cardiovascular: normal peripheral pulses, normal rate, regular rhythm Abdomen: normal bowel sounds, soft, non tender, no organomegaly, non distended , no mass Extremities: no cyanosis, no clubbing, no edema Microbiology Date/Time Source Procedure Growth Status 08/18/19 19:00 Blood Blood Culture - Preliminary NO GROWTH AFTER 48 HOURS Resulted 08/18/19 18:50 Blood Blood Culture - Preliminary NO GROWTH AFTER 48 HOURS Resulted 08/18/19 19:00 Nasal Nares - Final Complete 08/18/19 19:00 Nasal Nares - Final Complete 08/18/19 19:00 Nasopharynx Coronavirus COVID-19 PCR ([facility]) - Final Complete Laboratory Tests 08/21/19 12:15: White Blood Count 4.1L, Red Blood Count 3.42L, Hemoglobin 10.2L, Hematocrit 30.3L, Mean Corpuscular Volume 89, Mean Corpuscular Hemoglobin 29.9, Mean Corpuscular Hemoglobin Concent 33.8, Red Cell Distribution Width 11.5L, Platelet Count 185, Mean Platelet Volume 6.3L, Neutrophils (%) (Auto) 59.1, Lymphocytes (%) (Auto) 30.3, Monocytes (%) (Auto) 7.7, Eosinophils (%) (Auto) 1.3, Basophils (%) (Auto) 1.6, Sodium Level 135L, Potassium Level 3.9, Chloride Level 96L, Carbon Dioxide Level 27, Anion Gap 12, Blood Urea Nitrogen 12, Creatinine 0.6, Estimat Glomerular Filtration Rate > 60, Glucose Level 97, Calcium Level 9.3, Free Thyroxine 1.35, Free Triiodothyronine 2.3 Current Medications Medications (Trade) Dose Ordered Sig/Wilner Route PRN Reason Start Time Stop Time Status Last Admin Dose Admin Acetaminophen (Tylenol) 650 mg Q4H PRN ORAL Mild Pain (Pain Scale 1-3) 08/19/19 01:30 09/18/19 01:29 08/20/19 15:18 Al Hydroxide/Mg Hydroxide (Mylanta II) 20 ml Q4H PRN ORAL INDIGESTION 08/19/19 01:30 09/18/19 01:29 08/19/19 13:46 Albuterol Sulfate (Proventil MDI) 2 puff Q6HRT PRN INH Shortness of Breath 08/19/19 03:15 11/17/19 03:14 Amlodipine Besylate (Norvasc) 10 mg DAILY ORAL 08/19/19 09:00 09/18/19 08:59 08/21/19 08:32 Ascorbic Acid (Vitamin C) 500 mg DAILY ORAL 08/19/19 09:00 09/18/19 08:59 08/21/19 08:32 Aspirin (ASA) 81 mg DAILY ORAL 08/19/19 09:00 10/03/19 08:59 08/21/19 08:40 Atorvastatin Calcium (Lipitor) 40 mg BEDTIME ORAL 08/19/19 21:00 11/17/19 20:59 08/20/19 21:40 Azithromycin (Zithromax) 250 mg Q24H ORAL 08/20/19 06:00 08/27/19 05:59 08/21/19 05:15 Benzonatate (Tessalon Perles) 100 mg TIDPRN PRN ORAL cough 08/18/19 21:15 09/17/19 21:14 08/21/19 14:08 Bisacodyl (Dulcolax) 10 mg DAILY PRN RECTAL Constipation 08/19/19 01:30 11/17/19 01:29 Calcium/Vitamin D (OsCal D) 1 tab DAILY ORAL 08/19/19 09:00 11/17/19 08:59 08/21/19 08:33 Ceftriaxone Sodium 1 gm/ Sodium Chloride 55 ml @ 110 mls/hr Q24HRS IVPB 08/18/19 23:00 08/25/19 22:59 08/20/19 23:25 Clonazepam (KlonoPIN) 0.5 mg BID ORAL 08/19/19 09:00 08/26/19 08:59 08/21/19 08:33 Dextrose (Dextrose 50%) 25 ml Q30M PRN IV Hypoglycemia 08/18/19 21:00 11/16/19 20:59 Dextrose (Dextrose 50%) 50 ml Q30M PRN IV Hypoglycemia 08/18/19 21:00 11/16/19 20:59 Docusate Sodium (Colace) 100 mg EVERY 12 HOURS ORAL 08/18/19 21:00 09/17/19 20:59 08/21/19 08:33 Dronabinol (Marinol) 2.5 mg BID ORAL 08/19/19 09:00 11/17/19 08:59 08/21/19 08:33 Ferrous Sulfate (Feosol) 325 mg DAILY ORAL 08/19/19 09:00 11/17/19 08:59 08/21/19 08:32 Fluticasone Propionate (Flonase) 1 spray DAILY NASAL 08/19/19 09:00 09/18/19 08:59 08/21/19 09:00 Fluticasone Propionate (Flovent 110 mcg) 2 puff DAILY INH 08/19/19 09:00 09/18/19 08:59 08/21/19 11:32 Heparin Sodium (Porcine) (Heparin 5000 units/ml) 5,000 units EVERY 8 HOURS SUBQ 08/19/19 00:00 10/03/19 00:00 08/21/19 14:08 Hydralazine HCl (Apresoline) 10 mg Q6H PRN ORAL For High Blood Pressure 08/19/19 01:30 11/17/19 01:29 Hydroxychloroquine Sulfate (Plaquenil) 200 mg Q12H ORAL 08/20/19 21:00 08/24/19 09:01 08/21/19 08:40 Ipratropium [place] (Atrovent Inh) 1 puffs Q6HRT INH 08/19/19 07:00 09/18/19 06:59 08/21/19 00:47 Lactulose (Cephulac) 20 gm DAILY PRN ORAL Constipation 08/19/19 01:30 09/18/19 01:29 Lisinopril (PriniviL) 20 mg DAILY ORAL 08/19/19 09:00 09/18/19 08:59 08/21/19 08:40 Magnesium Oxide (Mag-Ox 400mg) 200 mg DAILY ORAL 08/19/19 09:00 09/18/19 08:59 08/21/19 08:32 Methocarbamol (Robaxin) 500 mg Q6H PRN ORAL MUSCLE SPASM 08/19/19 01:30 09/18/19 01:29 Metoprolol Tartrate (Lopressor) 25 mg Q12HR ORAL 08/19/19 09:00 11/17/19 08:59 08/21/19 08:33 Mirtazapine (Remeron) 15 mg BEDTIME ORAL 08/20/19 21:00 11/18/19 20:59 08/20/19 21:40 Montelukast Sodium (Singulair) 10 mg QPM ORAL 08/19/19 16:30 11/17/19 16:29 08/21/19 16:28 Multivitamins (Multivitamins) 1 tab DAILY ORAL 08/19/19 09:00 09/18/19 08:59 08/21/19 08:32 Ondansetron HCl (Zofran) 4 mg Q6H PRN IVP Nausea & Vomiting 08/18/19 21:00 09/17/19 20:59 08/21/19 07:12 Ondansetron HCl (Zofran) 4 mg Q6H PRN ORAL Nausea & Vomiting 08/19/19 01:30 09/18/19 01:29 08/21/19 08:33 Oxycodone HCl (Roxicodone) 5 mg Q6H PRN ORAL Severe Pain (Pain Scale 7-10) 08/19/19 01:30 08/26/19 01:29 08/21/19 14:07 Pantoprazole (Protonix) 40 mg DAILY ORAL 08/19/19 09:00 09/18/19 08:59 08/21/19 08:32 Polyethylene Glycol (Miralax) 17 gm DAILY ORAL 08/19/19 09:00 09/18/19 08:59 08/21/19 08:32 Polyethylene Glycol (Miralax) 17 gm DAILYPRN PRN ORAL Constipation 08/18/19 21:00 09/17/19 20:59 Pregabalin (Lyrica) 75 mg TWICE A DAY ORAL 08/19/19 09:00 10/03/19 08:59 08/21/19 08:33 Sennosides (Senokot) 8.6 mg QHS ORAL 08/19/19 21:00 09/18/19 20:59 08/20/19 21:40 Zinc Sulfate (Zinc Sulfate) 220 mg DAILY ORAL 08/19/19 09:00 11/17/19 08:59 08/21/19 08:32 Rafael Lerma MD Aug 21, 2019 16:48
--- NOTE | 2019-08-21 18:46 | Nephrology Progress Note ---
Assessment/Plan Plan #Hyponatremia - likely hypovolumic - r/o SIADH in the setting of pulmonary infection- improving #Acute on chronic hypoxic resp failure #Acute bronchitis #Rule out COVID-19 #COPD #HTN #Chronic diastolic CHF #Depression #GERD #Chronic right hydronephrosis #Left hemorrhagic renal cyst #Nephrolithiasis #Hematuria - monitor BMP - check free T4-> WNL - Continue lisinopril 20 daily, MTP 23 BID, amlodipine 10 qdaily - continue antibiotics per ID - breathing treatment. - ID and Pulm eval - Continue Lexapro- consider holding if sodium if continues to drop - Continue qhs Mirtazapine - consider holding if sodium if continues to drop - Continue pregabalin 75 mg BID - consider holding if sodium if continues to drop Subjective Subjective sodium 135 Breathing stable BP stable Objective Objective Last 24 Hour Vital Signs Date Time Temp Pulse Resp B/P (MAP) Pulse Ox O2 Delivery O2 Flow Rate FiO2 08/21/19 15:33 98.0 85 22 106/56 (73) 96 08/21/19 13:49 Room Air 21 08/21/19 13:49 Room Air 21 08/21/19 11:44 75 08/21/19 11:43 98.0 79 22 136/72 (93) 96 08/21/19 09:03 98.0 08/21/19 08:40 140/80 08/21/19 08:33 80 140/80 08/21/19 08:32 80 140/80 08/21/19 08:00 98.0 84 22 142/80 (100) 96 08/21/19 07:59 79 08/21/19 07:00 Room Air 21 08/21/19 07:00 Nasal Cannula 2.0 28 08/21/19 04:00 87 08/21/19 04:00 98.0 84 22 138/80 (99) 96 08/21/19 00:48 81 20 98 Nasal Cannula 2.0 28 08/21/19 00:47 81 20 97 Nasal Cannula 2.0 28 08/21/19 00:00 78 08/21/19 00:00 98.0 82 20 120/82 (95) 97 08/20/19 21:40 91 135/89 08/20/19 21:00 Nasal Cannula 2.0 08/20/19 20:22 85 20 97 Nasal Cannula 2.0 28 08/20/19 20:20 85 20 95 Room Air 21 08/20/19 20:00 95 08/20/19 20:00 98.1 89 20 132/76 (94) 96 Intake and Output 08/20/19 08/21/19 19:00 07:00 Intake Total 480 ml Balance 480 ml Intake Oral 480 ml # Voids 2 Laboratory Tests 08/21/19 12:15: White Blood Count 4.1L, Red Blood Count 3.42L, Hemoglobin 10.2L, Hematocrit 30.3L, Mean Corpuscular Volume 89, Mean Corpuscular Hemoglobin 29.9, Mean Corpuscular Hemoglobin Concent 33.8, Red Cell Distribution Width 11.5L, Platelet Count 185, Mean Platelet Volume 6.3L, Neutrophils (%) (Auto) 59.1, Lymphocytes (%) (Auto) 30.3, Monocytes (%) (Auto) 7.7, Eosinophils (%) (Auto) 1.3, Basophils (%) (Auto) 1.6, Sodium Level 135L, Potassium Level 3.9, Chloride Level 96L, Carbon Dioxide Level 27, Anion Gap 12, Blood Urea Nitrogen 12, Creatinine 0.6, Estimat Glomerular Filtration Rate > 60, Glucose Level 97, Calcium Level 9.3, Free Thyroxine 1.35, Free Triiodothyronine 2.3 Height (Feet): 5 Height (Inches): 0.00 Weight (Pounds): 100 Salma Ibanez M.D. Aug 21, 2019 18:46
--- NOTE | 2019-08-21 19:31 | Infectious Diseases Prog Note ---
Assessment/Plan Assessment/Plan ASSESSMENT AND PLAN: 1. covid-19 virus infection with pna, ? cap, ? risk for aspiration/hcap pna, hypoxia - hydroxychloroquine - day # 3 - start zosyn and vancomycin for aspiration pna/hcap, azithromycin - monitor labs and chest x-ray - d/w pharmacy - monitor respiratory status closely 2. pulmonary mgt noted 3. The patient has anemia. 4. Congestive heart failure. 5. Hypertension. 6. Blood pressure treatment per primary care team. 7. Leukopenia consistent with viral syndrome. 8. History of urinary tract infection. We will check urine C and S. 9. Anxiety and chronic pain. 10. Chronic obstructive pulmonary disease. 11. Allergies to oranges, tetracycline, tomatoes. 12. Social history is negative. 13. Family history is noncontributory. 14. MAR was noted. 15. Case discussed with RN. 16. Skin care protocol. 17. The patient comes from a [facility] facility. Subjective Constitutional: Reports: fatigue; Denies: fever HEENT: Reports: congestion - mild, other - mild Respiratory: Reports: shortness of breath - mild Cardiovascular: Denies: chest pain Gastrointestinal/Abdominal: Denies: nausea, vomiting, diarrhea Genitourinary: Reports: other - no shi Neurologic: Denies: headache Psychiatric: Denies: depression Skin: Denies: rash Hematologic: Denies: bleeding Musculoskeletal: Denies: pain Allergies: Coded Allergies: [place] (Unverified Allergy, Mild, upset stomach, 02/10/19) TOMATO (Unverified Allergy, Mild, upset stomach, 02/10/19) TETRACYCLINE (Unverified Allergy, Unknown, 07/24/14) Objective Vital Signs Last 24 Hour Vital Signs Date Time Temp Pulse Resp B/P (MAP) Pulse Ox O2 Delivery O2 Flow Rate FiO2 08/21/19 17:54 98.0 08/21/19 15:47 83 08/21/19 15:33 98.0 85 22 106/56 (73) 96 08/21/19 13:49 Room Air 21 08/21/19 13:49 Room Air 21 08/21/19 11:44 75 08/21/19 11:43 98.0 79 22 136/72 (93) 96 08/21/19 08:40 140/80 08/21/19 08:33 80 140/80 08/21/19 08:32 80 140/80 08/21/19 08:00 98.0 84 22 142/80 (100) 96 08/21/19 07:59 79 08/21/19 07:00 Room Air 21 08/21/19 07:00 Nasal Cannula 2.0 28 08/21/19 04:00 87 08/21/19 04:00 98.0 84 22 138/80 (99) 96 08/21/19 00:48 81 20 98 Nasal Cannula 2.0 28 08/21/19 00:47 81 20 97 Nasal Cannula 2.0 28 08/21/19 00:00 78 08/21/19 00:00 98.0 82 20 120/82 (95) 97 08/20/19 21:40 91 135/89 08/20/19 21:00 Nasal Cannula 2.0 08/20/19 20:22 85 20 97 Nasal Cannula 2.0 28 08/20/19 20:20 85 20 95 Room Air 21 08/20/19 20:00 95 08/20/19 20:00 98.1 89 20 132/76 (94) 96 Height (Feet): 5 Height (Inches): 0.00 Weight (Pounds): 100 General Appearance: no acute distress HEENT: normocephalic, atraumatic, anicteric, mucous membranes moist Respiratory/Chest: crackles/rales, rhonchi - bilaterally Cardiovascular: normal rate, regular rhythm, no gallop/murmur, no JVD Abdomen: normal bowel sounds, soft, non tender, no organomegaly, non distended Genitourinary: other - no shi Extremities: no cyanosis Skin: no rash 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 There is bilateral interstitial congestion. There is also some patchy airspace disease in the perihilar regions. There is pleural thickening versus fluid in the left inferolateral hemithorax. Surgical clips are seen adjacent to the right pulmonary hilum. Numerous surgical clips are seen in the right axilla. Findings are similar to the prior exam Impression: Findings likely represent congestive heart failure with interstitial edema, patchy airspace edema, and a left pleural effusion. However, similarity to the prior exam raises possibility that there is also a chronic component. Microbiology Date/Time Source Procedure Growth Status 08/18/19 19:00 Blood Blood Culture - Preliminary NO GROWTH AFTER 48 HOURS Resulted 08/18/19 19:00 Nasal Nares - Final Complete 08/18/19 19:00 Nasal Nares - Final Complete covid - 19 pcr - + Laboratory Tests Test 08/21/19 12:15 White Blood Count 4.1 K/UL (4.8-10.8) L Red Blood Count 3.42 M/UL (4.20-5.40) L Hemoglobin 10.2 G/DL (12.0-16.0) L Hematocrit 30.3 % (37.0-47.0) L Mean Corpuscular Volume 89 FL (80-99) Mean Corpuscular Hemoglobin 29.9 PG (27.0-31.0) Mean Corpuscular Hemoglobin Concent 33.8 G/DL (32.0-36.0) Red Cell Distribution Width 11.5 % (11.6-14.8) L Platelet Count 185 K/UL (150-450) Mean Platelet Volume 6.3 FL (6.5-10.1) L Neutrophils (%) (Auto) 59.1 % (45.0-75.0) Lymphocytes (%) (Auto) 30.3 % (20.0-45.0) Monocytes (%) (Auto) 7.7 % (1.0-10.0) Eosinophils (%) (Auto) 1.3 % (0.0-3.0) Basophils (%) (Auto) 1.6 % (0.0-2.0) Sodium Level 135 MMOL/L (136-145) L Potassium Level 3.9 MMOL/L (3.5-5.1) Chloride Level 96 MMOL/L (98-107) L Carbon Dioxide Level 27 MMOL/L (21-32) Anion Gap 12 mmol/L (5-15) Blood Urea Nitrogen 12 mg/dL (7-18) Creatinine 0.6 MG/DL (0.55-1.30) Estimat Glomerular Filtration Rate > 60 mL/min (>60) Glucose Level 97 MG/DL (74-106) Calcium Level 9.3 MG/DL (8.5-10.1) Free Thyroxine 1.35 NG/DL (0.76-1.46) Free Triiodothyronine 2.3 pg/mL (2.3-4.2) Current Medications Medications (Trade) Dose Ordered Sig/Wilner Route PRN Reason Start Time Stop Time Status Last Admin Dose Admin Acetaminophen (Tylenol) 650 mg Q4H PRN ORAL Mild Pain (Pain Scale 1-3) 08/19/19 01:30 09/18/19 01:29 08/20/19 15:18 Al Hydroxide/Mg Hydroxide (Mylanta II) 20 ml Q4H PRN ORAL INDIGESTION 08/19/19 01:30 09/18/19 01:29 08/19/19 13:46 Albuterol Sulfate (Proventil MDI) 2 puff Q6HRT PRN INH Shortness of Breath 08/19/19 03:15 11/17/19 03:14 Amlodipine Besylate (Norvasc) 10 mg DAILY ORAL 08/19/19 09:00 09/18/19 08:59 08/21/19 08:32 Ascorbic Acid (Vitamin C) 500 mg DAILY ORAL 08/19/19 09:00 09/18/19 08:59 08/21/19 08:32 Aspirin (ASA) 81 mg DAILY ORAL 08/19/19 09:00 10/03/19 08:59 08/21/19 08:40 Atorvastatin Calcium (Lipitor) 40 mg BEDTIME ORAL 08/19/19 21:00 11/17/19 20:59 08/20/19 21:40 Azithromycin (Zithromax) 250 mg Q24H ORAL 08/20/19 06:00 08/27/19 05:59 08/21/19 05:15 Benzonatate (Tessalon Perles) 100 mg TIDPRN PRN ORAL cough 08/18/19 21:15 09/17/19 21:14 08/21/19 14:08 Bisacodyl (Dulcolax) 10 mg DAILY PRN RECTAL Constipation 08/19/19 01:30 11/17/19 01:29 Calcium/Vitamin D (OsCal D) 1 tab DAILY ORAL 08/19/19 09:00 11/17/19 08:59 08/21/19 08:33 Ceftriaxone Sodium 1 gm/ Sodium Chloride 55 ml @ 110 mls/hr Q24HRS IVPB 08/18/19 23:00 08/25/19 22:59 08/20/19 23:25 Clonazepam (KlonoPIN) 0.5 mg BID ORAL 08/19/19 09:00 08/26/19 08:59 08/21/19 17:24 Dextrose (Dextrose 50%) 25 ml Q30M PRN IV Hypoglycemia 08/18/19 21:00 11/16/19 20:59 Dextrose (Dextrose 50%) 50 ml Q30M PRN IV Hypoglycemia 08/18/19 21:00 11/16/19 20:59 Docusate Sodium (Colace) 100 mg EVERY 12 HOURS ORAL 08/18/19 21:00 09/17/19 20:59 08/21/19 08:33 Dronabinol (Marinol) 2.5 mg BID ORAL 08/19/19 09:00 11/17/19 08:59 08/21/19 17:24 Ferrous Sulfate (Feosol) 325 mg DAILY ORAL 08/19/19 09:00 11/17/19 08:59 08/21/19 08:32 Fluticasone Propionate (Flonase) 1 spray DAILY NASAL 08/19/19 09:00 09/18/19 08:59 08/21/19 09:00 Fluticasone Propionate (Flovent 110 mcg) 2 puff DAILY INH 08/19/19 09:00 09/18/19 08:59 08/21/19 11:32 Heparin Sodium (Porcine) (Heparin 5000 units/ml) 5,000 units EVERY 8 HOURS SUBQ 08/19/19 00:00 10/03/19 00:00 08/21/19 14:08 Hydralazine HCl (Apresoline) 10 mg Q6H PRN ORAL For High Blood Pressure 08/19/19 01:30 11/17/19 01:29 Hydroxychloroquine Sulfate (Plaquenil) 200 mg Q12H ORAL 08/20/19 21:00 08/24/19 09:01 08/21/19 08:40 Ipratropium [place] (Atrovent Inh) 1 puffs Q6HRT INH 08/19/19 07:00 09/18/19 06:59 08/21/19 00:47 Lactulose (Cephulac) 20 gm DAILY PRN ORAL Constipation 08/19/19 01:30 09/18/19 01:29 Lisinopril (PriniviL) 20 mg DAILY ORAL 08/19/19 09:00 09/18/19 08:59 08/21/19 08:40 Magnesium Oxide (Mag-Ox 400mg) 200 mg DAILY ORAL 08/19/19 09:00 09/18/19 08:59 08/21/19 08:32 Methocarbamol (Robaxin) 500 mg Q6H PRN ORAL MUSCLE SPASM 08/19/19 01:30 09/18/19 01:29 Metoprolol Tartrate (Lopressor) 25 mg Q12HR ORAL 08/19/19 09:00 11/17/19 08:59 08/21/19 08:33 Mirtazapine (Remeron) 15 mg BEDTIME ORAL 08/20/19 21:00 11/18/19 20:59 08/20/19 21:40 Montelukast Sodium (Singulair) 10 mg QPM ORAL 08/19/19 16:30 11/17/19 16:29 08/21/19 16:28 Multivitamins (Multivitamins) 1 tab DAILY ORAL 08/19/19 09:00 09/18/19 08:59 08/21/19 08:32 Ondansetron HCl (Zofran) 4 mg Q6H PRN IVP Nausea & Vomiting 08/18/19 21:00 09/17/19 20:59 08/21/19 07:12 Ondansetron HCl (Zofran) 4 mg Q6H PRN ORAL Nausea & Vomiting 08/19/19 01:30 09/18/19 01:29 08/21/19 08:33 Oxycodone HCl (Roxicodone) 5 mg Q6H PRN ORAL Severe Pain (Pain Scale 7-10) 08/19/19 01:30 08/26/19 01:29 08/21/19 14:07 Pantoprazole (Protonix) 40 mg DAILY ORAL 08/19/19 09:00 09/18/19 08:59 08/21/19 08:32 Polyethylene Glycol (Miralax) 17 gm DAILY ORAL 08/19/19 09:00 09/18/19 08:59 08/21/19 08:32 Polyethylene Glycol (Miralax) 17 gm DAILYPRN PRN ORAL Constipation 08/18/19 21:00 09/17/19 20:59 Prednisone (predniSONE) 40 mg DAILY ORAL 08/22/19 09:00 09/21/19 08:59 Pregabalin (Lyrica) 75 mg TWICE A DAY ORAL 08/19/19 09:00 10/03/19 08:59 08/21/19 17:24 Sennosides (Senokot) 8.6 mg QHS ORAL 08/19/19 21:00 09/18/19 20:59 08/20/19 21:40 Zinc Sulfate (Zinc Sulfate) 220 mg DAILY ORAL 08/19/19 09:00 11/17/19 08:59 08/21/19 08:32 Nyasia Grover MD Aug 21, 2019 19:31
[2019-08-21 20:00] VITALS: BP 144/66
--- NOTE | 2019-08-21 20:38 | Neurology Progress Note ---
Interim History Interim History ROS Limited/Unobtainable: No Interim History awake and alert, covid pending Objective Physical Exam Last Vital Signs Date Time Temp Pulse Resp B/P (MAP) Pulse Ox O2 Delivery O2 Flow Rate FiO2 08/21/19 17:54 98.0 08/21/19 15:47 83 08/21/19 15:33 22 106/56 (73) 96 08/21/19 13:49 Room Air 21 08/21/19 09:00 2.0 Laboratory Tests Test 08/21/19 12:15 White Blood Count 4.1 K/UL (4.8-10.8) L Red Blood Count 3.42 M/UL (4.20-5.40) L Hemoglobin 10.2 G/DL (12.0-16.0) L Hematocrit 30.3 % (37.0-47.0) L Mean Corpuscular Volume 89 FL (80-99) Mean Corpuscular Hemoglobin 29.9 PG (27.0-31.0) Mean Corpuscular Hemoglobin Concent 33.8 G/DL (32.0-36.0) Red Cell Distribution Width 11.5 % (11.6-14.8) L Platelet Count 185 K/UL (150-450) Mean Platelet Volume 6.3 FL (6.5-10.1) L Neutrophils (%) (Auto) 59.1 % (45.0-75.0) Lymphocytes (%) (Auto) 30.3 % (20.0-45.0) Monocytes (%) (Auto) 7.7 % (1.0-10.0) Eosinophils (%) (Auto) 1.3 % (0.0-3.0) Basophils (%) (Auto) 1.6 % (0.0-2.0) Sodium Level 135 MMOL/L (136-145) L Potassium Level 3.9 MMOL/L (3.5-5.1) Chloride Level 96 MMOL/L (98-107) L Carbon Dioxide Level 27 MMOL/L (21-32) Anion Gap 12 mmol/L (5-15) Blood Urea Nitrogen 12 mg/dL (7-18) Creatinine 0.6 MG/DL (0.55-1.30) Estimat Glomerular Filtration Rate > 60 mL/min (>60) Glucose Level 97 MG/DL (74-106) Calcium Level 9.3 MG/DL (8.5-10.1) Free Thyroxine 1.35 NG/DL (0.76-1.46) Free Triiodothyronine 2.3 pg/mL (2.3-4.2) General: well nourished Head: normocophalic Neck: no rigidity Neurologic Exam Mental Status: awake Objective moves all 4 symmetric Impression/Recommendations Problems: (1) Hypokalemia (2) Abdominal pain (3) Therapeutic opioid-induced constipation (OIC) (4) Shortness of breath (5) Diastolic CHF (6) Anemia (7) Anxiety (8) Hypercholesteremia (9) Hyponatremia (10) Hypertension (11) Severe sepsis (12) History of breast cancer (13) Respiratory failure with hypoxia (14) Protein-calorie malnutrition, mild (15) GERD (gastroesophageal reflux disease) (16) Cough (17) Dysphagia (18) SOB (shortness of breath) (19) Pleural effusion (20) Renal failure (21) Allergic rhinitis (22) Constipation (23) Osteoporosis (24) Aspiration pneumonia (25) Tracheobronchitis (26) Collapse of left lung (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 (28) Respiratory failure requiring intubation (29) Limited mobility (30) Acute metabolic encephalopathy (31) Decubitus skin ulcer (32) Leukocytosis (33) Gram-negative bacteremia (34) COPD (chronic obstructive pulmonary disease) (35) Chronic respiratory failure with hypoxia (36) Lumbar radiculopathy (37) Fibromyalgia (38) Cervical spondylosis (39) Diastolic CHF, acute on chronic (40) Lumbar spondylosis (41) Acute and chronic respiratory failure ([id number]) (42) Pneumonia (43) Cervical radiculopathy (44) DDD (degenerative disc disease), cervical (45) DDD (degenerative disc disease), lumbar (46) Troponin level elevated (47) UTI (urinary tract infection) Diagnostic Impression acute encephalopathy and gen weakness likely metabolic in the setting of possible covid and resp faikure myalgias GEn pain Depression COVID rule out atb per primary management of fluids nad hyponatremia pt ot delirium precautions Quentin Giron MD Aug 21, 2019 20:38
[2019-08-21] MEDS ORDERED: Vancomycin 1gm/D5W 275ml IVPB ONE ×2 (21:00)
[2019-08-21] MEDS: Sennosides 8.6mg tab ORAL SCH (21:09)
[2019-08-21] MEDS: Atorvastatin 20mg tab ORAL SCH (21:10)
[2019-08-22] VITALS: BP 109/81
[2019-08-22] MEDS: Ipratropium Bromide Inhaler INH SCH ×4 (00:57→19:57)
[2019-08-22 04:00] VITALS: BP 110/66
[2019-08-22] MEDS: Heparin 5000 units/ml inj SUBQ SCH ×3 (06:17→21:27)
[2019-08-22] MEDS: Benzonatate 100mg Perles ORAL PRN ×2 (06:39→22:53)
[2019-08-22] MEDS: Mylanta II UD 30ml ORAL PRN (06:39)
[2019-08-22 07:03] LABS: BLOOD UREA NITROGEN 15 mg/dL (7-18); CARBON DIOXIDE 28 MMOL/L (21-32); CHLORIDE 101 MMOL/L (98-107); CREATININE 0.8 MG/DL (0.55-1.30); SODIUM 142 MMOL/L (136-145)
[2019-08-22 07:24] LABS: BASOPHILS % (AUTO) 1.6 % (0.0-2.0); EOSINOPHILS % (AUTO) 1.8 % (0.0-3.0); HEMATOCRIT 31.2 % (37.0-47.0); HEMOGLOBIN 10.7 G/DL (12.0-16.0); LYMPHOCYTES % (AUTO) 26.8 % (20.0-45.0); MEAN CORPUSCULAR VOLUME 88 FL (80-99); MONOCYTES % (AUTO) 9.1 % (1.0-10.0); NEUTROPHILS % (AUTO) 60.7 % (45.0-75.0); PLATELET COUNT 215 K/UL (150-450); RED BLOOD COUNT 3.55 M/UL (4.20-5.40); RED CELL DISTRIBUTION WIDTH 12.8 % (11.6-14.8); WHITE BLOOD COUNT 4.9 K/UL (4.8-10.8)
[2019-08-22 08:00] VITALS: BP 115/65
[2019-08-22] MEDS: Flonase Nasal Inhaler 16gm NASAL SCH (09:00)
[2019-08-22] MEDS: Lyrica 75mg cap ORAL SCH ×2 (09:00→18:19)
[2019-08-22] MEDS: Flovent 110mcg Inhaler - 12gm INH SCH (09:14)
--- NOTE | 2019-08-22 09:30 | General Progress Note ---
Assessment/Plan Assessment/Plan: 78 year old woman SNF resident with chronic resp failure due to COPD, HTN, chronic dCHF, chronic pain, depression, anxiety, chronic right hydronephrosis who presented from SNF with dyspnea, cough body aches, COVID-19 positive #Acute on chronic hypoxic resp failure #Acute bronchitis #COVID-19 POSITIVE #COPD -cont. inpatient medical care -Inhaled bronchodilators prn -Continue supplemental oxygen -COVID-19 positive -Will defer systemic steroid use to Pulm -abx per ID: vanc, zosyn, hydroxychloroquine, azithro -ID and Pulm consulted, recs appreciated -d/w pt >20 mins code status, advanced life planning, pt states she "doesn't know" at this time, stated she was intubated in past and did not want that again , however is unsure if she wants to be DNR/DNI and wishes to talk to her sister more #Hyponatremia - likely hypovolumic - r/o SIADH in the setting of pulmonary infection #Hypokalemia -replaced, ctm, replace PRN -Nephro following, recs appreciated #HTN #Chronic diastolic CHF -Cont outpatient meds lisinopril 20 daily, MTP 25 BID, amlodipine 10 q daily #Depression #Chronic pain #Anxiety disorder #Osteoarthritis -Continue qhs Mirtazapine. -Continue pregabalin 75 mg BID -Continue home Dronabinol 2.5 mg BID -Continue Clonazepam 0.5 mg BID -Continue Oxycodone 5 mg q6h prn -Psych consulted - recs appreciated #GERD -cont. PPI #Chronic right hydronephrosis #Left hemorrhagic renal cyst #Nephrolithiasis #Hematuria I spent 35 minutes on this patient's case, and 50% was dedicated to counseling and/or care coordination witch included communication with RN, consulting MDs, case management. Additional 20 mins spent discussing w/pt code status, advance life care planning. Subjective Allergies: Coded Allergies: [place] (Unverified Allergy, Mild, upset stomach, 02/10/19) TOMATO (Unverified Allergy, Mild, upset stomach, 02/10/19) TETRACYCLINE (Unverified Allergy, Unknown, 07/24/14) Subjective Follow-up for acute on chronic hypoxic respiratory failure. COVID Positive. Denies any F/C, SOB, palpitations, CP, abd pain. D/w pt reguarding code status, pt stated she wishes to talk about code status w/ her sister Objective Last 24 Hour Vital Signs Date Time Temp Pulse Resp B/P (MAP) Pulse Ox O2 Delivery O2 Flow Rate FiO2 08/22/19 08:00 98.4 99 18 115/65 (82) 96 08/22/19 07:35 88 18 99 Nasal Cannula 2.0 28 08/22/19 07:35 89 18 96 Nasal Cannula 2.0 28 08/22/19 04:00 97.5 77 18 110/66 (81) 98 08/22/19 04:00 Nasal Cannula 2.0 08/22/19 04:00 80 08/22/19 00:58 88 20 99 Nasal Cannula 2.0 28 08/22/19 00:57 87 20 97 Nasal Cannula 2.0 28 08/22/19 00:00 87 08/22/19 00:00 Nasal Cannula 2.0 08/22/19 00:00 96.8 87 18 109/81 (90) 97 08/21/19 21:15 95 128/100 08/21/19 21:00 Nasal Cannula 2.0 08/21/19 20:00 97.2 81 18 144/66 (92) 95 08/21/19 20:00 85 08/21/19 19:21 86 20 98 Nasal Cannula 2.0 28 08/21/19 19:20 85 20 97 Nasal Cannula 2.0 28 08/21/19 17:54 98.0 08/21/19 15:47 83 08/21/19 15:33 98.0 85 22 106/56 (73) 96 08/21/19 13:49 Room Air 21 08/21/19 13:49 Room Air 21 08/21/19 11:44 75 08/21/19 11:43 98.0 79 22 136/72 (93) 96 Intake and Output 08/21/19 08/22/19 19:00 07:00 Intake Total 120 ml 933.708 ml Output Total 700 ml 400 ml Balance -580 ml 533.708 ml Intake Oral 120 ml 600 ml IV Total 333.708 ml Output Urine Total 700 ml 400 ml # Voids 2 Laboratory Tests 08/21/19 12:15: White Blood Count 4.1L, Red Blood Count 3.42L, Hemoglobin 10.2L, Hematocrit 30.3L, Mean Corpuscular Volume 89, Mean Corpuscular Hemoglobin 29.9, Mean Corpuscular Hemoglobin Concent 33.8, Red Cell Distribution Width 11.5L, Platelet Count 185, Mean Platelet Volume 6.3L, Neutrophils (%) (Auto) 59.1, Lymphocytes (%) (Auto) 30.3, Monocytes (%) (Auto) 7.7, Eosinophils (%) (Auto) 1.3, Basophils (%) (Auto) 1.6, Sodium Level 135L, Potassium Level 3.9, Chloride Level 96L, Carbon Dioxide Level 27, Anion Gap 12, Blood Urea Nitrogen 12, Creatinine 0.6, Estimat Glomerular Filtration Rate > 60, Glucose Level 97, Calcium Level 9.3, Free Thyroxine 1.35, Free Triiodothyronine 2.3 08/22/19 05:10: White Blood Count 4.9, Red Blood Count 3.55L, Hemoglobin 10.7L, Hematocrit 31.2L , Mean Corpuscular Volume 88, Mean Corpuscular Hemoglobin 30.1, Mean Corpuscular Hemoglobin Concent 34.3, Red Cell Distribution Width 12.8, Platelet Count 215, Mean Platelet Volume 6.4L, Neutrophils (%) (Auto) 60.7, Lymphocytes ( %) (Auto) 26.8, Monocytes (%) (Auto) 9.1, Eosinophils (%) (Auto) 1.8, Basophils (%) (Auto) 1.6, Sodium Level 142, Potassium Level 3.0L, Chloride Level 101, Carbon Dioxide Level 28, Blood Urea Nitrogen 15, Creatinine 0.8, Estimat Glomerular Filtration Rate > 60, Glucose Level 110H, Calcium Level 9.0 Height (Feet): 5 Height (Inches): 0.00 Weight (Pounds): 100 Objective General Appearance: no apparent distress, alert, appears comfortable HEENT: atraumatic, anicteric Neck: normal alignment, supple Respiratory/Chest: no respiratory distress, no accessory muscle use, Cardiovascular/Chest: normal rate, regular rhythm Abdomen: non tender, soft, +BS Ext: no edema Morgan Lutz M.D. Aug 22, 2019 09:30
--- NOTE | 2019-08-22 09:33 | Nephrology Progress Note ---
Assessment/Plan Plan #Hyponatremia - likely hypovolumic - r/o SIADH in the setting of pulmonary infection- improving #Acute on chronic hypoxic resp failure #Acute bronchitis #Rule out COVID-19 #COPD #HTN #Chronic diastolic CHF #Depression #GERD #Chronic right hydronephrosis #Left hemorrhagic renal cyst #Nephrolithiasis #Hematuria #hypokalemia - repleted - monitor BMP - check free T4-> WNL - Continue lisinopril 20 daily, MTP 23 BID, amlodipine 10 qdaily - continue antibiotics per ID - breathing treatment. - ID and Pulm eval - Continue Lexapro- consider holding if sodium if continues to drop - Continue qhs Mirtazapine - consider holding if sodium if continues to drop - Continue pregabalin 75 mg BID - consider holding if sodium if continues to drop Subjective ROS Limited/Unobtainable: No Subjective sodium stable K low - repleted Breathing stable BP stable Objective Objective Last 24 Hour Vital Signs Date Time Temp Pulse Resp B/P (MAP) Pulse Ox O2 Delivery O2 Flow Rate FiO2 08/22/19 08:00 98.4 99 18 115/65 (82) 96 08/22/19 07:35 88 18 99 Nasal Cannula 2.0 28 08/22/19 07:35 89 18 96 Nasal Cannula 2.0 28 08/22/19 04:00 97.5 77 18 110/66 (81) 98 08/22/19 04:00 Nasal Cannula 2.0 08/22/19 04:00 80 08/22/19 00:58 88 20 99 Nasal Cannula 2.0 28 08/22/19 00:57 87 20 97 Nasal Cannula 2.0 28 08/22/19 00:00 87 08/22/19 00:00 Nasal Cannula 2.0 08/22/19 00:00 96.8 87 18 109/81 (90) 97 08/21/19 21:15 95 128/100 08/21/19 21:00 Nasal Cannula 2.0 08/21/19 20:00 97.2 81 18 144/66 (92) 95 08/21/19 20:00 85 08/21/19 19:21 86 20 98 Nasal Cannula 2.0 28 08/21/19 19:20 85 20 97 Nasal Cannula 2.0 28 08/21/19 17:54 98.0 08/21/19 15:47 83 08/21/19 15:33 98.0 85 22 106/56 (73) 96 08/21/19 13:49 Room Air 21 08/21/19 13:49 Room Air 21 08/21/19 11:44 75 08/21/19 11:43 98.0 79 22 136/72 (93) 96 Intake and Output 08/21/19 08/22/19 19:00 07:00 Intake Total 120 ml 933.708 ml Output Total 700 ml 400 ml Balance -580 ml 533.708 ml Intake Oral 120 ml 600 ml IV Total 333.708 ml Output Urine Total 700 ml 400 ml # Voids 2 Laboratory Tests 08/21/19 12:15: White Blood Count 4.1L, Red Blood Count 3.42L, Hemoglobin 10.2L, Hematocrit 30.3L, Mean Corpuscular Volume 89, Mean Corpuscular Hemoglobin 29.9, Mean Corpuscular Hemoglobin Concent 33.8, Red Cell Distribution Width 11.5L, Platelet Count 185, Mean Platelet Volume 6.3L, Neutrophils (%) (Auto) 59.1, Lymphocytes (%) (Auto) 30.3, Monocytes (%) (Auto) 7.7, Eosinophils (%) (Auto) 1.3, Basophils (%) (Auto) 1.6, Sodium Level 135L, Potassium Level 3.9, Chloride Level 96L, Carbon Dioxide Level 27, Anion Gap 12, Blood Urea Nitrogen 12, Creatinine 0.6, Estimat Glomerular Filtration Rate > 60, Glucose Level 97, Calcium Level 9.3, Free Thyroxine 1.35, Free Triiodothyronine 2.3 08/22/19 05:10: White Blood Count 4.9, Red Blood Count 3.55L, Hemoglobin 10.7L, Hematocrit 31.2L , Mean Corpuscular Volume 88, Mean Corpuscular Hemoglobin 30.1, Mean Corpuscular Hemoglobin Concent 34.3, Red Cell Distribution Width 12.8, Platelet Count 215, Mean Platelet Volume 6.4L, Neutrophils (%) (Auto) 60.7, Lymphocytes ( %) (Auto) 26.8, Monocytes (%) (Auto) 9.1, Eosinophils (%) (Auto) 1.8, Basophils (%) (Auto) 1.6, Sodium Level 142, Potassium Level 3.0L, Chloride Level 101, Carbon Dioxide Level 28, Blood Urea Nitrogen 15, Creatinine 0.8, Estimat Glomerular Filtration Rate > 60, Glucose Level 110H, Calcium Level 9.0 Height (Feet): 5 Height (Inches): 0.00 Weight (Pounds): 100 General Appearance: WD/WN, no apparent distress EENT: PERRL/EOMI Neck: non-tender Cardiovascular: normal peripheral pulses, normal rate Respiratory/Chest: chest wall non-tender, lungs clear Abdomen: non tender, soft Genitourinary/Rectal: normal prostate exam Extremities: non-tender Neurologic: alert, oriented x 3 Salma Ibanez M.D. Aug 22, 2019 09:33
[2019-08-22] MEDS: Docusate 100mg cap ORAL SCH ×2 (10:42→21:05)
[2019-08-22] MEDS: Aspirin Baby 81mg ORAL SCH (10:42)
[2019-08-22] MEDS: clonazePAM 0.5mg tab ORAL SCH ×2 (10:42→18:19)
[2019-08-22] MEDS: Miralax 17gm pkt ORAL SCH (10:43)
[2019-08-22] MEDS: Magnesium Oxide 400mg tab ORAL SCH (10:43)
[2019-08-22] MEDS: Calcium Carbonate 500mg w/Vit D 200iu tab ORAL SCH (10:43)
[2019-08-22] MEDS: Azithromycin 250mg tab ORAL SCH (10:44)
[2019-08-22] MEDS: Ascorbic Acid 500mg tab ORAL SCH (10:44)
[2019-08-22] MEDS: Zinc Sulfate 220mg cap ORAL SCH (10:44)
[2019-08-22] MEDS: Lisinopril 20mg tab ORAL SCH (10:44)
[2019-08-22] MEDS: Dronabinol 2.5mg Cap ORAL SCH ×2 (10:45→18:19)
[2019-08-22 12:00] VITALS: BP 127/72
--- NOTE | 2019-08-22 12:24 | Pulmonology Progress Note ---
Assessment/Plan Assessment/Plan ASSESSMENT: The patient is a 78-year-old female with a history of COPD, diastolic dysfunction, CHF, breast cancer, anemia, admitted with COVID 19 PNA PROBLEM LIST: 1. COVID19 PNA 2. Acute hypoxemic respiratory failure. 3. COPD. 4. CHF with diastolic dysfunction. 5. History of mucus plugging. 6. History of breast cancer. 7. Anemia. 8. Hyponatremia. 9. Dementia. 10. 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 11. Dysphagia. TREATMENT PLAN: 1. Optimize pulmonary hygiene/mobilize as tolerated. 2. Titrate down FiO2 to keep saturations greater than 90%. 3. [id number] and p.r.n. albuterol and Atrovent metered-dose inhalers via spacer. 4. Plaquenil (D3) 5. Pred 40 (D2) 6. ABx: Vanco/Zosyn per ID 7. Monitor volumes and renal function. 8. DVT prophylaxis, heparin subcu. 9. Continue Singulair. 10. Continue fluticasone inhaler b.i.d. 11. Continue Tessalon t.i.d. p.r.n. 12. Continue Mucinex and p.r.n. Robitussin. D/W patient D/W RN Subjective Allergies: Coded Allergies: [place] (Unverified Allergy, Mild, upset stomach, 02/10/19) TOMATO (Unverified Allergy, Mild, upset stomach, 02/10/19) TETRACYCLINE (Unverified Allergy, Unknown, 07/24/14) Subjective NAEO AFVSS on 2L + cough + SOB no FC no CP Abx broadened by ID Objective Last 24 Hour Vital Signs Date Time Temp Pulse Resp B/P (MAP) Pulse Ox O2 Delivery O2 Flow Rate FiO2 08/22/19 10:44 115/65 08/22/19 10:43 99 115/65 08/22/19 10:42 99 115/65 08/22/19 09:30 98.4 08/22/19 08:00 98.4 99 18 115/65 (82) 96 08/22/19 07:35 88 18 99 Nasal Cannula 2.0 28 08/22/19 07:35 89 18 96 Nasal Cannula 2.0 28 08/22/19 04:00 97.5 77 18 110/66 (81) 98 4/13/20 04:00 Nasal Cannula 2.0 08/22/19 04:00 80 08/22/19 00:58 88 20 99 Nasal Cannula 2.0 28 08/22/19 00:57 87 20 97 Nasal Cannula 2.0 28 08/22/19 00:00 87 08/22/19 00:00 Nasal Cannula 2.0 08/22/19 00:00 96.8 87 18 109/81 (90) 97 08/21/19 21:15 95 128/100 08/21/19 21:00 Nasal Cannula 2.0 08/21/19 20:00 97.2 81 18 144/66 (92) 95 08/21/19 20:00 85 08/21/19 19:21 86 20 98 Nasal Cannula 2.0 28 08/21/19 19:20 85 20 97 Nasal Cannula 2.0 28 08/21/19 15:47 83 08/21/19 15:33 98.0 85 22 106/56 (73) 96 08/21/19 13:49 Room Air 21 08/21/19 13:49 Room Air 21 Intake and Output 08/21/19 08/22/19 19:00 07:00 Intake Total 120 ml 933.708 ml Output Total 700 ml 400 ml Balance -580 ml 533.708 ml Intake Oral 120 ml 600 ml IV Total 333.708 ml Output Urine Total 700 ml 400 ml # Voids 2 Objective Deferred 2/2 COVID isolation, PPE requirements, no distress, not coughing, less confused, awake and alert Laboratory Tests 08/22/19 05:10: White Blood Count 4.9, Red Blood Count 3.55L, Hemoglobin 10.7L, Hematocrit 31.2L , Mean Corpuscular Volume 88, Mean Corpuscular Hemoglobin 30.1, Mean Corpuscular Hemoglobin Concent 34.3, Red Cell Distribution Width 12.8, Platelet Count 215, Mean Platelet Volume 6.4L, Neutrophils (%) (Auto) 60.7, Lymphocytes ( %) (Auto) 26.8, Monocytes (%) (Auto) 9.1, Eosinophils (%) (Auto) 1.8, Basophils (%) (Auto) 1.6, Sodium Level 142, Potassium Level 3.0L, Chloride Level 101, Carbon Dioxide Level 28, Blood Urea Nitrogen 15, Creatinine 0.8, Estimat Glomerular Filtration Rate > 60, Glucose Level 110H, Calcium Level 9.0, Magnesium Level 2.0 Current Medications Medications (Trade) Dose Ordered Sig/Wilner Route PRN Reason Start Time Stop Time Status Last Admin Dose Admin Acetaminophen (Tylenol) 650 mg Q4H PRN ORAL Mild Pain (Pain Scale 1-3) 08/19/19 01:30 09/18/19 01:29 08/20/19 15:18 Al Hydroxide/Mg Hydroxide (Mylanta II) 20 ml Q4H PRN ORAL INDIGESTION 08/19/19 01:30 09/18/19 01:29 08/22/19 06:39 Albuterol Sulfate (Proventil MDI) 2 puff Q6HRT PRN INH Shortness of Breath 08/19/19 03:15 11/17/19 03:14 Amlodipine Besylate (Norvasc) 10 mg DAILY ORAL 08/19/19 09:00 09/18/19 08:59 08/22/19 10:43 Ascorbic Acid (Vitamin C) 500 mg DAILY ORAL 08/19/19 09:00 09/18/19 08:59 08/22/19 10:44 Aspirin (ASA) 81 mg DAILY ORAL 08/19/19 09:00 10/03/19 08:59 08/22/19 10:42 Atorvastatin Calcium (Lipitor) 40 mg BEDTIME ORAL 08/19/19 21:00 11/17/19 20:59 08/21/19 21:10 Azithromycin (Zithromax) 250 mg DAILY ORAL 08/22/19 09:00 08/29/19 08:59 08/22/19 10:44 Benzonatate (Tessalon Perles) 100 mg TIDPRN PRN ORAL cough 08/18/19 21:15 09/17/19 21:14 08/22/19 06:39 Bisacodyl (Dulcolax) 10 mg DAILY PRN RECTAL Constipation 08/19/19 01:30 11/17/19 01:29 Calcium/Vitamin D (OsCal D) 1 tab DAILY ORAL 08/19/19 09:00 11/17/19 08:59 08/22/19 10:43 Clonazepam (KlonoPIN) 0.5 mg BID ORAL 08/19/19 09:00 08/26/19 08:59 08/22/19 10:42 Dextrose (Dextrose 50%) 25 ml Q30M PRN IV Hypoglycemia 08/18/19 21:00 11/16/19 20:59 Dextrose (Dextrose 50%) 50 ml Q30M PRN IV Hypoglycemia 08/18/19 21:00 11/16/19 20:59 Docusate Sodium (Colace) 100 mg EVERY 12 HOURS ORAL 08/18/19 21:00 09/17/19 20:59 08/22/19 10:42 Dronabinol (Marinol) 2.5 mg BID ORAL 08/19/19 09:00 11/17/19 08:59 08/22/19 10:45 Ferrous Sulfate (Feosol) 325 mg DAILY ORAL 08/19/19 09:00 11/17/19 08:59 08/22/19 09:00 Fluticasone Propionate (Flonase) 1 spray DAILY NASAL 08/19/19 09:00 09/18/19 08:59 08/22/19 09:00 Fluticasone Propionate (Flovent 110 mcg) 2 puff DAILY INH 08/19/19 09:00 09/18/19 08:59 08/22/19 09:14 Heparin Sodium (Porcine) (Heparin 5000 units/ml) 5,000 units EVERY 8 HOURS SUBQ 08/19/19 00:00 10/03/19 00:00 08/22/19 06:17 Hydralazine HCl (Apresoline) 10 mg Q6H PRN ORAL For High Blood Pressure 08/19/19 01:30 11/17/19 01:29 Hydroxychloroquine Sulfate (Plaquenil) 200 mg Q12H ORAL 08/20/19 21:00 08/24/19 09:01 08/22/19 10:43 Ipratropium [place] (Atrovent Inh) 1 puffs Q6HRT INH 08/19/19 07:00 09/18/19 06:59 08/22/19 07:35 Lactulose (Cephulac) 20 gm DAILY PRN ORAL Constipation 08/19/19 01:30 09/18/19 01:29 Lisinopril (PriniviL) 20 mg DAILY ORAL 08/19/19 09:00 09/18/19 08:59 08/22/19 10:44 Magnesium Oxide (Mag-Ox 400mg) 200 mg DAILY ORAL 08/19/19 09:00 09/18/19 08:59 08/22/19 10:43 Methocarbamol (Robaxin) 500 mg Q6H PRN ORAL MUSCLE SPASM 08/19/19 01:30 09/18/19 01:29 Metoprolol Tartrate (Lopressor) 25 mg Q12HR ORAL 08/19/19 09:00 11/17/19 08:59 08/22/19 10:42 Mirtazapine (Remeron) 15 mg BEDTIME ORAL 08/20/19 21:00 11/18/19 20:59 08/21/19 21:09 Montelukast Sodium (Singulair) 10 mg QPM ORAL 08/19/19 16:30 11/17/19 16:29 08/21/19 16:28 Multivitamins (Multivitamins) 1 tab DAILY ORAL 08/19/19 09:00 09/18/19 08:59 08/22/19 10:43 Ondansetron HCl (Zofran) 4 mg Q6H PRN IVP Nausea & Vomiting 08/18/19 21:00 09/17/19 20:59 08/21/19 07:12 Ondansetron HCl (Zofran) 4 mg Q6H PRN ORAL Nausea & Vomiting 08/19/19 01:30 09/18/19 01:29 08/21/19 08:33 Oxycodone HCl (Roxicodone) 5 mg Q6H PRN ORAL Severe Pain (Pain Scale 7-10) 08/22/19 13:30 08/26/19 01:29 Pantoprazole (Protonix) 40 mg DAILY ORAL 08/19/19 09:00 09/18/19 08:59 08/22/19 10:44 Piperacillin Sod/ Tazobactam Sod 3.375 gm/Dextrose 100 ml @ 25 mls/hr EVERY 8 HOURS IVPB 08/21/19 22:00 08/26/19 21:59 08/22/19 05:51 Polyethylene Glycol (Miralax) 17 gm DAILY ORAL 08/19/19 09:00 09/18/19 08:59 08/22/19 10:43 Polyethylene Glycol (Miralax) 17 gm DAILYPRN PRN ORAL Constipation 08/18/19 21:00 09/17/19 20:59 Prednisone (predniSONE) 40 mg DAILY ORAL 08/22/19 09:00 09/21/19 08:59 08/22/19 10:44 Pregabalin (Lyrica) 75 mg TWICE A DAY ORAL 08/19/19 09:00 10/03/19 08:59 08/22/19 09:00 Sennosides (Senokot) 8.6 mg QHS ORAL 08/19/19 21:00 09/18/19 20:59 08/21/19 21:09 Vancomycin HCl (Vanco rx to dose) 1 ea DAILY PRN MISC Per rx protocol 08/21/19 19:30 09/20/19 19:29 Vancomycin HCl 500 mg/Dextrose 110 ml @ 110 mls/hr Q24H IVPB 08/22/19 21:00 08/27/19 20:59 Zinc Sulfate (Zinc Sulfate) 220 mg DAILY ORAL 08/19/19 09:00 11/17/19 08:59 08/22/19 10:44 Rafael Lerma MD Aug 22, 2019 12:24
[2019-08-22] MEDS ORDERED: oxyCODONE 5mg IR tab ORAL PRN (13:30)
[2019-08-22 16:00] VITALS: BP 139/73
[2019-08-22] MEDS: Montelukast 10mg tablet ORAL SCH (18:21)
[2019-08-22 20:00] VITALS: BP 126/72
[2019-08-22] MEDS: Vancomycin 500mg/D5W 110ml IVPB SCH ×2 (21:03)
[2019-08-22] MEDS: Atorvastatin 20mg tab ORAL SCH (21:04)
[2019-08-22] MEDS: Sennosides 8.6mg tab ORAL SCH (21:05)
--- NOTE | 2019-08-22 22:28 | Neurology Progress Note ---
Interim History Interim History ROS Limited/Unobtainable: No Interim History ao x 2 non focal Objective Physical Exam Last Vital Signs Date Time Temp Pulse Resp B/P (MAP) Pulse Ox O2 Delivery O2 Flow Rate FiO2 08/22/19 21:08 109 126/72 08/22/19 20:00 20 95 Nasal Cannula 2.0 28 08/22/19 18:59 97.2 Laboratory Tests Test 08/22/19 05:10 White Blood Count 4.9 K/UL (4.8-10.8) Red Blood Count 3.55 M/UL (4.20-5.40) L Hemoglobin 10.7 G/DL (12.0-16.0) L Hematocrit 31.2 % (37.0-47.0) L Mean Corpuscular Volume 88 FL (80-99) Mean Corpuscular Hemoglobin 30.1 PG (27.0-31.0) Mean Corpuscular Hemoglobin Concent 34.3 G/DL (32.0-36.0) Red Cell Distribution Width 12.8 % (11.6-14.8) Platelet Count 215 K/UL (150-450) Mean Platelet Volume 6.4 FL (6.5-10.1) L Neutrophils (%) (Auto) 60.7 % (45.0-75.0) Lymphocytes (%) (Auto) 26.8 % (20.0-45.0) Monocytes (%) (Auto) 9.1 % (1.0-10.0) Eosinophils (%) (Auto) 1.8 % (0.0-3.0) Basophils (%) (Auto) 1.6 % (0.0-2.0) Sodium Level 142 MMOL/L (136-145) Potassium Level 3.0 MMOL/L (3.5-5.1) L Chloride Level 101 MMOL/L (98-107) Carbon Dioxide Level 28 MMOL/L (21-32) Blood Urea Nitrogen 15 mg/dL (7-18) Creatinine 0.8 MG/DL (0.55-1.30) Estimat Glomerular Filtration Rate > 60 mL/min (>60) Glucose Level 110 MG/DL (74-106) H Calcium Level 9.0 MG/DL (8.5-10.1) Magnesium Level 2.0 MG/DL (1.8-2.4) General: well nourished Head: normocophalic Neck: no rigidity Neurologic Exam Mental Status: awake Objective moves all 4 symmetric Impression/Recommendations Problems: (1) Hypokalemia (2) Abdominal pain (3) Therapeutic opioid-induced constipation (OIC) (4) Shortness of breath (5) Diastolic CHF (6) Anemia (7) Anxiety (8) Hypercholesteremia (9) Hyponatremia (10) Hypertension (11) Severe sepsis (12) History of breast cancer (13) Respiratory failure with hypoxia (14) Protein-calorie malnutrition, mild (15) GERD (gastroesophageal reflux disease) (16) Cough (17) Dysphagia (18) SOB (shortness of breath) (19) Pleural effusion (20) Renal failure (21) Allergic rhinitis (22) Constipation (23) Osteoporosis (24) Aspiration pneumonia (25) Tracheobronchitis (26) Collapse of left lung (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 (28) Respiratory failure requiring intubation (29) Limited mobility (30) Acute metabolic encephalopathy (31) Decubitus skin ulcer (32) Leukocytosis (33) Gram-negative bacteremia (34) COPD (chronic obstructive pulmonary disease) (35) Chronic respiratory failure with hypoxia (36) Lumbar radiculopathy (37) Fibromyalgia (38) Cervical spondylosis (39) Diastolic CHF, acute on chronic (40) Lumbar spondylosis (41) Acute and chronic respiratory failure ([id number]) (42) Pneumonia (43) Cervical radiculopathy (44) DDD (degenerative disc disease), cervical (45) DDD (degenerative disc disease), lumbar (46) Troponin level elevated (47) UTI (urinary tract infection) Diagnostic Impression acute encephalopathy and gen weakness likely metabolic in the setting of possible covid and resp faikure myalgias GEn pain Depression COVID rule out atb per primary management of fluids nad hyponatremia pt ot delirium precautions Quentin Giron MD Aug 22, 2019 22:28
[2019-08-23] VITALS: BP 134/76
[2019-08-23] MEDS: Ipratropium Bromide Inhaler INH SCH ×3 (00:51→20:15)
--- NOTE | 2019-08-23 03:15 | Progress Note ---
DATE: 08/22/2019 SUBJECTIVE: Patient is very anxious. She was requesting to be given intravenous Xanax and Oxy. Patient is having no behavior issues. Patient is calm, cooperative. She is very anxious, again asking for more of psychotropic medications. Depressed. I spoke to her at length. Also told them not to keep the nurse in the room as she is anxious. She agreed. MENTAL STATUS EXAMINATION: Patient is alert, oriented times self, place, situation. Mood is anxious. Affect is flat. Thought process is concrete. Thought content, no suicidal or homicidal ideation. ASSESSMENT: 1. Anxiety disorder. 2. Major depressive disorder. PLAN: 1. Discontinue the Oxy as the patient agreed. 2. Continue the Remeron. 3. limit using benzodiazepines. Wan Stern M.D. DR: KAYDEN JOB#: [id number] CC: BALDEMAR
[2019-08-23 04:00] VITALS: BP 145/78
[2019-08-23] MEDS: Heparin 5000 units/ml inj SUBQ SCH ×3 (05:27→22:00)
[2019-08-23] MEDS: Benzonatate 100mg Perles ORAL PRN (06:33)
[2019-08-23 08:00] VITALS: BP 146/76
[2019-08-23] MEDS: Flovent 110mcg Inhaler - 12gm INH SCH (08:18)
[2019-08-23] MEDS: Azithromycin 250mg tab ORAL SCH (08:55)
[2019-08-23] MEDS: Calcium Carbonate 500mg w/Vit D 200iu tab ORAL SCH (08:55)
[2019-08-23] MEDS: clonazePAM 0.5mg tab ORAL SCH ×2 (08:55→17:25)
[2019-08-23] MEDS: Magnesium Oxide 400mg tab ORAL SCH (08:56)
[2019-08-23] MEDS: Zinc Sulfate 220mg cap ORAL SCH (08:56)
[2019-08-23] MEDS: Aspirin Baby 81mg ORAL SCH (08:56)
[2019-08-23] MEDS: Ascorbic Acid 500mg tab ORAL SCH (08:58)
[2019-08-23] MEDS: Lyrica 75mg cap ORAL SCH ×2 (08:58→17:25)
[2019-08-23] MEDS: Docusate 100mg cap ORAL SCH ×2 (08:58→21:10)
[2019-08-23 08:59] LABS: BASOPHILS % (AUTO) 1.8 % (0.0-2.0); EOSINOPHILS % (AUTO) 0.3 % (0.0-3.0); HEMATOCRIT 33.8 % (37.0-47.0); HEMOGLOBIN 11.6 G/DL (12.0-16.0); MEAN CORPUSCULAR VOLUME 88 FL (80-99); MONOCYTES % (AUTO) 13.6 % (1.0-10.0); NEUTROPHILS % (AUTO) 53.3 % (45.0-75.0); PLATELET COUNT 244 K/UL (150-450); RED BLOOD COUNT 3.84 M/UL (4.20-5.40); RED CELL DISTRIBUTION WIDTH 11.5 % (11.6-14.8); WHITE BLOOD COUNT 4.1 K/UL (4.8-10.8)
[2019-08-23] MEDS: Flonase Nasal Inhaler 16gm NASAL SCH (08:59)
[2019-08-23] MEDS: Dronabinol 2.5mg Cap ORAL SCH ×2 (08:59→17:23)
[2019-08-23] MEDS: Lisinopril 20mg tab ORAL SCH (08:59)
[2019-08-23] MEDS: Miralax 17gm pkt ORAL SCH (09:00)
[2019-08-23 09:18] LABS: ANION GAP 10 mmol/L (5-15); BLOOD UREA NITROGEN 9 mg/dL (7-18); CALCIUM 9.6 MG/DL (8.5-10.1); CARBON DIOXIDE 29 MMOL/L (21-32); CHLORIDE 101 MMOL/L (98-107); CREATININE 0.6 MG/DL (0.55-1.30); POTASSIUM 3.4 MMOL/L (3.5-5.1); SODIUM 140 MMOL/L (136-145)
--- NOTE | 2019-08-23 10:41 | Nephrology Progress Note ---
Assessment/Plan Plan #Hyponatremia - likely hypovolumic - r/o SIADH in the setting of pulmonary infection- improving #Acute on chronic hypoxic resp failure #Acute bronchitis #Rule out COVID-19 #COPD #HTN #Chronic diastolic CHF #Depression #GERD #Chronic right hydronephrosis #Left hemorrhagic renal cyst #Nephrolithiasis #Hematuria #hypokalemia - repleted - monitor BMP - check free T4-> WNL - Continue lisinopril 20 daily, MTP 23 BID, amlodipine 10 qdaily - continue antibiotics per ID - breathing treatment. - ID and Pulm eval - Continue Lexapro- consider holding if sodium if continues to drop - Continue qhs Mirtazapine - consider holding if sodium if continues to drop - Continue pregabalin 75 mg BID - consider holding if sodium if continues to drop Subjective Subjective sodium stable K low - repleted Breathing stable BP stable Objective Objective Last 24 Hour Vital Signs Date Time Temp Pulse Resp B/P (MAP) Pulse Ox O2 Delivery O2 Flow Rate FiO2 08/23/19 08:59 146/76 08/23/19 08:59 82 146/76 08/23/19 08:55 82 146/76 08/23/19 08:16 81 20 94 Nasal Cannula 2.0 28 08/23/19 08:16 82 20 95 Nasal Cannula 2.0 28 08/23/19 08:15 94 Nasal Cannula 2.0 28 08/23/19 08:00 97.0 99 20 146/76 (99) 97 08/23/19 04:00 78 08/23/19 04:00 98.4 81 17 145/78 (100) 94 08/23/19 00:59 86 20 96 Nasal Cannula 2.0 28 08/23/19 00:54 86 20 96 Nasal Cannula 2.0 28 08/23/19 00:00 89 08/23/19 00:00 98.8 104 18 134/76 (95) 97 08/22/19 21:08 109 126/72 08/22/19 21:00 Nasal Cannula 2.0 08/22/19 20:00 113 08/22/19 20:00 98.6 109 19 126/72 (90) 97 08/22/19 20:00 85 20 95 Nasal Cannula 2.0 28 08/22/19 19:57 95 Nasal Cannula 2.0 28 08/22/19 19:57 85 20 95 Nasal Cannula 2.0 28 08/22/19 18:59 97.2 08/22/19 16:00 91 08/22/19 16:00 97.2 80 20 139/73 (95) 97 08/22/19 13:00 84 18 99 Nasal Cannula 2.0 28 08/22/19 13:00 82 18 95 Nasal Cannula 2.0 28 08/22/19 12:00 96 08/22/19 12:00 99.2 97 20 127/72 (90) 96 08/22/19 10:44 115/65 08/22/19 10:43 99 115/65 08/22/19 10:42 99 115/65 Intake and Output 08/22/19 08/23/19 19:00 07:00 Intake Total 360 ml 480 ml Output Total 550 ml Balance -190 ml 480 ml Intake Oral 360 ml 480 ml Output Urine Total 550 ml # Voids 2 3 Laboratory Tests 08/23/19 08:40: White Blood Count 4.1L, Red Blood Count 3.84L, Hemoglobin 11.6L, Hematocrit 33.8L, Mean Corpuscular Volume 88, Mean Corpuscular Hemoglobin 30.3, Mean Corpuscular Hemoglobin Concent 34.3, Red Cell Distribution Width 11.5L, Platelet Count 244, Mean Platelet Volume 6.6, Neutrophils (%) (Auto) 53.3, Lymphocytes (%) (Auto) 31.0, Monocytes (%) (Auto) 13.6H, Eosinophils (%) (Auto) 0.3, Basophils (%) (Auto) 1.8, Sodium Level 140, Potassium Level 3.4L, Chloride Level 101, Carbon Dioxide Level 29, Anion Gap 10, Blood Urea Nitrogen 9, Creatinine 0.6, Estimat Glomerular Filtration Rate > 60, Glucose Level 127H, Calcium Level 9.6 Height (Feet): 5 Height (Inches): 0.00 Weight (Pounds): 100 Salma Ibanez M.D. Aug 23, 2019 10:41
[2019-08-23 12:00] VITALS: BP 130/69
--- NOTE | 2019-08-23 12:22 | Pulmonology Progress Note ---
Assessment/Plan Assessment/Plan ASSESSMENT: The patient is a 78-year-old female with a history of COPD, diastolic dysfunction, CHF, breast cancer, anemia, admitted with COVID 19 PNA PROBLEM LIST: 1. COVID19 PNA 2. Acute hypoxemic respiratory failure. 3. COPD. 4. CHF with diastolic dysfunction. 5. History of mucus plugging. 6. History of breast cancer. 7. Anemia. 8. Hyponatremia. 9. Dementia. 10. 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 11. Dysphagia. TREATMENT PLAN: 1. Optimize pulmonary hygiene/mobilize as tolerated. 2. Titrate down FiO2 to keep saturations greater than 90%. 3. [id number] and p.r.n. albuterol and Atrovent metered-dose inhalers via spacer. 4. Plaquenil (D4) 5. Pred 40 (D3) 6. ABx: Vanco/Zosyn per ID 7. Monitor volumes and renal function. 8. DVT prophylaxis, heparin subcu. 9. Continue Singulair. 10. Continue fluticasone inhaler b.i.d. 11. Continue Tessalon t.i.d. p.r.n. 12. Continue Mucinex and p.r.n. Robitussin. D/W patient D/W RN Subjective Allergies: Coded Allergies: [place] (Unverified Allergy, Mild, upset stomach, 02/10/19) TOMATO (Unverified Allergy, Mild, upset stomach, 02/10/19) TETRACYCLINE (Unverified Allergy, Unknown, 07/24/14) Subjective NAEO AFVSS on 2L + cough + SOB no FC no CP Objective Last 24 Hour Vital Signs Date Time Temp Pulse Resp B/P (MAP) Pulse Ox O2 Delivery O2 Flow Rate FiO2 08/23/19 08:59 146/76 08/23/19 08:59 82 146/76 08/23/19 08:55 82 146/76 08/23/19 08:16 81 20 94 Nasal Cannula 2.0 28 08/23/19 08:16 82 20 95 Nasal Cannula 2.0 28 08/23/19 08:15 94 Nasal Cannula 2.0 28 08/23/19 08:00 94 08/23/19 08:00 97.0 99 20 146/76 (99) 97 4/14/20 04:00 78 08/23/19 04:00 98.4 81 17 145/78 (100) 94 08/23/19 00:59 86 20 96 Nasal Cannula 2.0 28 08/23/19 00:54 86 20 96 Nasal Cannula 2.0 28 08/23/19 00:00 89 08/23/19 00:00 98.8 104 18 134/76 (95) 97 08/22/19 21:08 109 126/72 08/22/19 21:00 Nasal Cannula 2.0 08/22/19 20:00 113 08/22/19 20:00 98.6 109 19 126/72 (90) 97 08/22/19 20:00 85 20 95 Nasal Cannula 2.0 28 08/22/19 19:57 95 Nasal Cannula 2.0 28 08/22/19 19:57 85 20 95 Nasal Cannula 2.0 28 08/22/19 18:59 97.2 08/22/19 16:00 91 08/22/19 16:00 97.2 80 20 139/73 (95) 97 08/22/19 13:00 84 18 99 Nasal Cannula 2.0 28 08/22/19 13:00 82 18 95 Nasal Cannula 2.0 28 Intake and Output 08/22/19 08/23/19 19:00 07:00 Intake Total 360 ml 480 ml Output Total 550 ml Balance -190 ml 480 ml Intake Oral 360 ml 480 ml Output Urine Total 550 ml # Voids 2 3 Objective Deferred 2/2 COVID isolation, PPE requirements, no distress, not coughing, less confused, awake and alert Laboratory Tests 08/23/19 08:40: White Blood Count 4.1L, Red Blood Count 3.84L, Hemoglobin 11.6L, Hematocrit 33.8L, Mean Corpuscular Volume 88, Mean Corpuscular Hemoglobin 30.3, Mean Corpuscular Hemoglobin Concent 34.3, Red Cell Distribution Width 11.5L, Platelet Count 244, Mean Platelet Volume 6.6, Neutrophils (%) (Auto) 53.3, Lymphocytes (%) (Auto) 31.0, Monocytes (%) (Auto) 13.6H, Eosinophils (%) (Auto) 0.3, Basophils (%) (Auto) 1.8, Sodium Level 140, Potassium Level 3.4L, Chloride Level 101, Carbon Dioxide Level 29, Anion Gap 10, Blood Urea Nitrogen 9, Creatinine 0.6, Estimat Glomerular Filtration Rate > 60, Glucose Level 127H, Calcium Level 9.6 Current Medications Medications (Trade) Dose Ordered Sig/Wilner Route PRN Reason Start Time Stop Time Status Last Admin Dose Admin Acetaminophen (Tylenol) 650 mg Q4H PRN ORAL Mild Pain (Pain Scale 1-3) 08/19/19 01:30 09/18/19 01:29 08/23/19 06:33 Al Hydroxide/Mg Hydroxide (Mylanta II) 20 ml Q4H PRN ORAL INDIGESTION 08/19/19 01:30 09/18/19 01:29 08/22/19 06:39 Albuterol Sulfate (Proventil MDI) 2 puff Q6HRT PRN INH Shortness of Breath 08/19/19 03:15 11/17/19 03:14 Amlodipine Besylate (Norvasc) 10 mg DAILY ORAL 08/19/19 09:00 09/18/19 08:59 08/23/19 08:59 Ascorbic Acid (Vitamin C) 500 mg DAILY ORAL 08/19/19 09:00 09/18/19 08:59 08/23/19 08:58 Aspirin (ASA) 81 mg DAILY ORAL 08/19/19 09:00 10/03/19 08:59 08/23/19 08:56 Atorvastatin Calcium (Lipitor) 40 mg BEDTIME ORAL 08/19/19 21:00 11/17/19 20:59 08/22/19 21:04 Azithromycin (Zithromax) 250 mg DAILY ORAL 08/22/19 09:00 08/29/19 08:59 08/23/19 08:55 Benzonatate (Tessalon Perles) 100 mg TIDPRN PRN ORAL cough 08/18/19 21:15 09/17/19 21:14 08/23/19 06:33 Bisacodyl (Dulcolax) 10 mg DAILY PRN RECTAL Constipation 08/19/19 01:30 11/17/19 01:29 Calcium/Vitamin D (OsCal D) 1 tab DAILY ORAL 08/19/19 09:00 11/17/19 08:59 08/23/19 08:55 Clonazepam (KlonoPIN) 0.5 mg BID ORAL 08/19/19 09:00 08/26/19 08:59 08/23/19 08:55 Dextrose (Dextrose 50%) 25 ml Q30M PRN IV Hypoglycemia 08/18/19 21:00 11/16/19 20:59 Dextrose (Dextrose 50%) 50 ml Q30M PRN IV Hypoglycemia 08/18/19 21:00 11/16/19 20:59 Docusate Sodium (Colace) 100 mg EVERY 12 HOURS ORAL 08/18/19 21:00 09/17/19 20:59 08/23/19 08:58 Dronabinol (Marinol) 2.5 mg BID ORAL 08/19/19 09:00 11/17/19 08:59 08/23/19 08:59 Ferrous Sulfate (Feosol) 325 mg DAILY ORAL 08/19/19 09:00 11/17/19 08:59 08/23/19 08:56 Fluticasone Propionate (Flonase) 1 spray DAILY NASAL 08/19/19 09:00 09/18/19 08:59 08/23/19 08:59 Fluticasone Propionate (Flovent 110 mcg) 2 puff DAILY INH 08/19/19 09:00 09/18/19 08:59 08/23/19 08:18 Heparin Sodium (Porcine) (Heparin 5000 units/ml) 5,000 units EVERY 8 HOURS SUBQ 08/19/19 00:00 10/03/19 00:00 08/23/19 05:27 Hydralazine HCl (Apresoline) 10 mg Q6H PRN ORAL For High Blood Pressure 08/19/19 01:30 11/17/19 01:29 Hydroxychloroquine Sulfate (Plaquenil) 200 mg Q12H ORAL 08/20/19 21:00 08/24/19 09:01 08/23/19 09:08 Ipratropium [place] (Atrovent Inh) 1 puffs Q6HRT INH 08/19/19 07:00 09/18/19 06:59 08/23/19 07:00 Lactulose (Cephulac) 20 gm DAILY PRN ORAL Constipation 08/19/19 01:30 09/18/19 01:29 Lisinopril (PriniviL) 20 mg DAILY ORAL 08/19/19 09:00 09/18/19 08:59 08/23/19 08:59 Magnesium Oxide (Mag-Ox 400mg) 200 mg DAILY ORAL 08/19/19 09:00 09/18/19 08:59 08/23/19 08:56 Methocarbamol (Robaxin) 500 mg Q6H PRN ORAL MUSCLE SPASM 08/19/19 01:30 09/18/19 01:29 Metoprolol Tartrate (Lopressor) 25 mg Q12HR ORAL 08/19/19 09:00 11/17/19 08:59 08/23/19 08:55 Mirtazapine (Remeron) 15 mg BEDTIME ORAL 08/20/19 21:00 11/18/19 20:59 08/22/19 21:03 Montelukast Sodium (Singulair) 10 mg QPM ORAL 08/19/19 16:30 11/17/19 16:29 08/22/19 18:21 Multivitamins (Multivitamins) 1 tab DAILY ORAL 08/19/19 09:00 09/18/19 08:59 08/23/19 08:55 Ondansetron HCl (Zofran) 4 mg Q6H PRN IVP Nausea & Vomiting 08/18/19 21:00 09/17/19 20:59 08/21/19 07:12 Ondansetron HCl (Zofran) 4 mg Q6H PRN ORAL Nausea & Vomiting 08/19/19 01:30 09/18/19 01:29 08/21/19 08:33 Pantoprazole (Protonix) 40 mg DAILY ORAL 08/19/19 09:00 09/18/19 08:59 08/23/19 08:55 Piperacillin Sod/ Tazobactam Sod 3.375 gm/Dextrose 100 ml @ 25 mls/hr EVERY 8 HOURS IVPB 08/21/19 22:00 08/26/19 21:59 08/23/19 05:25 Polyethylene Glycol (Miralax) 17 gm DAILY ORAL 08/19/19 09:00 09/18/19 08:59 08/22/19 10:43 Polyethylene Glycol (Miralax) 17 gm DAILYPRN PRN ORAL Constipation 08/18/19 21:00 09/17/19 20:59 Prednisone (predniSONE) 40 mg DAILY ORAL 08/22/19 09:00 09/21/19 08:59 08/23/19 08:56 Pregabalin (Lyrica) 75 mg TWICE A DAY ORAL 08/19/19 09:00 10/03/19 08:59 08/23/19 08:58 Sennosides (Senokot) 8.6 mg QHS ORAL 08/19/19 21:00 09/18/19 20:59 08/22/19 21:05 Vancomycin HCl (Vanco rx to dose) 1 ea DAILY PRN MISC Per rx protocol 08/21/19 19:30 09/20/19 19:29 Vancomycin HCl 500 mg/Dextrose 110 ml @ 110 mls/hr Q24H IVPB 08/22/19 21:00 08/27/19 20:59 08/22/19 21:03 Zinc Sulfate (Zinc Sulfate) 220 mg DAILY ORAL 08/19/19 09:00 11/17/19 08:59 08/23/19 08:56 Rafael Lerma MD Aug 23, 2019 12:22
--- NOTE | 2019-08-23 14:10 | Diagnostic Imaging Report ---
Indication: Shortness of breath Technique: One view of the chest Comparison: 08/18/2019 Findings: There is suggestion of increased hazy opacity at the right lung base, may reflect increasing infiltrate and/or pleural fluid. Left basilar infiltrate and pleural fluid appear unchanged. The heart is borderline enlarged. Surgical clips are again demonstrated in the right paratracheal region and also in the right axilla. Impression: Increasing right basilar hazy infiltrate and/or pleural fluid are in stable left basilar pleural and parenchymal disease, over 5 days
--- NOTE | 2019-08-23 15:24 | General Progress Note ---
Assessment/Plan Assessment/Plan: 78 year old woman SNF resident with chronic resp failure due to COPD, HTN, chronic dCHF, chronic pain, depression, anxiety, chronic right hydronephrosis who presented from SNF with dyspnea, cough body aches, COVID-19 positive #Acute on chronic hypoxic resp failure, O2 dependant #Acute bronchitis #COVID-19 POSITIVE #COPD -cont. inpatient medical care -Inhaled bronchodilators prn -Continue supplemental oxygen -COVID-19 positive -Will defer systemic steroid use to Pulm -abx per ID: vanc, zosyn, hydroxychloroquine, azithro -ID and Pulm consulted, recs appreciated #Hyponatremia - resolved #Hypokalemia -replaced, ctm, replace PRN -likely hypovolumic - r/o SIADH in the setting of pulmonary infection -Nephro following, recs appreciated #HTN #Chronic diastolic CHF -Cont outpatient meds lisinopril 20 daily, MTP 25 BID, amlodipine 10 q daily #Depression #Chronic pain #Anxiety disorder #Osteoarthritis -Continue qhs Mirtazapine. -Continue pregabalin 75 mg BID -Continue home Dronabinol 2.5 mg BID -Continue Clonazepam 0.5 mg BID -Continue Oxycodone 5 mg q6h prn -Psych consulted - recs appreciated #GERD -cont. PPI #Chronic right hydronephrosis #Left hemorrhagic renal cyst #Nephrolithiasis #Hematuria Time spent on encounter: 36 mins, >50% on counseling, coordination of care. Time of note doesn't reflect time of encounter. Subjective Allergies: Coded Allergies: [place] (Unverified Allergy, Mild, upset stomach, 02/10/19) TOMATO (Unverified Allergy, Mild, upset stomach, 02/10/19) TETRACYCLINE (Unverified Allergy, Unknown, 07/24/14) Subjective Follow-up for acute on chronic hypoxic respiratory failure. COVID Positive. States her breathing is "ok", appears comfortably on 2 L NC. Objective Last 24 Hour Vital Signs Date Time Temp Pulse Resp B/P (MAP) Pulse Ox O2 Delivery O2 Flow Rate FiO2 08/23/19 13:11 85 20 96 Nasal Cannula 2.0 28 08/23/19 13:10 87 20 95 Nasal Cannula 2.0 28 08/23/19 12:00 97.9 87 18 130/69 (89) 96 08/23/19 09:00 Nasal Cannula 2.0 08/23/19 08:59 146/76 08/23/19 08:59 82 146/76 08/23/19 08:55 82 146/76 08/23/19 08:16 81 20 94 Nasal Cannula 2.0 28 08/23/19 08:16 82 20 95 Nasal Cannula 2.0 28 08/23/19 08:15 94 Nasal Cannula 2.0 28 08/23/19 08:00 94 08/23/19 08:00 97.0 99 20 146/76 (99) 97 08/23/19 04:00 78 08/23/19 04:00 98.4 81 17 145/78 (100) 94 08/23/19 00:59 86 20 96 Nasal Cannula 2.0 28 08/23/19 00:54 86 20 96 Nasal Cannula 2.0 28 08/23/19 00:00 89 08/23/19 00:00 98.8 104 18 134/76 (95) 97 08/22/19 21:08 109 126/72 08/22/19 21:00 Nasal Cannula 2.0 08/22/19 20:00 113 08/22/19 20:00 98.6 109 19 126/72 (90) 97 08/22/19 20:00 85 20 95 Nasal Cannula 2.0 28 08/22/19 19:57 95 Nasal Cannula 2.0 28 08/22/19 19:57 85 20 95 Nasal Cannula 2.0 28 08/22/19 18:59 97.2 08/22/19 16:00 91 08/22/19 16:00 97.2 80 20 139/73 (95) 97 Intake and Output 08/22/19 08/23/19 19:00 07:00 Intake Total 360 ml 480 ml Output Total 550 ml Balance -190 ml 480 ml Intake Oral 360 ml 480 ml Output Urine Total 550 ml # Voids 2 3 Laboratory Tests 08/23/19 08:40: White Blood Count 4.1L, Red Blood Count 3.84L, Hemoglobin 11.6L, Hematocrit 33.8L, Mean Corpuscular Volume 88, Mean Corpuscular Hemoglobin 30.3, Mean Corpuscular Hemoglobin Concent 34.3, Red Cell Distribution Width 11.5L, Platelet Count 244, Mean Platelet Volume 6.6, Neutrophils (%) (Auto) 53.3, Lymphocytes (%) (Auto) 31.0, Monocytes (%) (Auto) 13.6H, Eosinophils (%) (Auto) 0.3, Basophils (%) (Auto) 1.8, Sodium Level 140, Potassium Level 3.4L, Chloride Level 101, Carbon Dioxide Level 29, Anion Gap 10, Blood Urea Nitrogen 9, Creatinine 0.6, Estimat Glomerular Filtration Rate > 60, Glucose Level 127H, Calcium Level 9.6 Height (Feet): 5 Height (Inches): 0.00 Weight (Pounds): 100 Objective General Appearance: no apparent distress, alert, appears comfortable on 2L NC HEENT: atraumatic, anicteric Neck: normal alignment, supple Respiratory/Chest: CTAB, no respiratory distress, no accessory muscle use Cardiovascular/Chest: normal rate, regular rhythm Abdomen: non tender, soft, +BS Ext: no edema Morgan Lutz M.D. Aug 23, 2019 15:24
[2019-08-23 16:00] VITALS: BP 137/66
[2019-08-23] MEDS: Montelukast 10mg tablet ORAL SCH (17:25)
[2019-08-23 20:00] VITALS: BP 134/86
--- NOTE | 2019-08-23 20:26 | Infectious Diseases Prog Note ---
Assessment/Plan Assessment/Plan ASSESSMENT AND PLAN: 1. covid-19 virus infection with pna, ? cap, ? risk for aspiration/hcap pna, hypoxia - hydroxychloroquine - day # 5/5 - zosyn and vancomycin - day # 3/7 - discontinue azithromycin - s/p 5 days - monitor labs and chest x-ray - monitor respiratory status closely - telemetry 2. pulmonary mgt noted 3. The patient has anemia. 4. Congestive heart failure. 5. Hypertension. 6. Blood pressure treatment per primary care team. 7. Leukopenia consistent with viral syndrome. 8. History of urinary tract infection. We will check urine C and S. 9. Anxiety and chronic pain. 10. Chronic obstructive pulmonary disease. 11. Allergies to oranges, tetracycline, tomatoes. 12. Social history is negative. 13. Family history is noncontributory. 14. MAR was noted. 15. Case discussed with RN. 16. Skin care protocol. 17. [facility]. Subjective Constitutional: Reports: fatigue; Denies: fever HEENT: Reports: congestion Cardiovascular: Denies: chest pain Gastrointestinal/Abdominal: Denies: nausea, vomiting, diarrhea Genitourinary: Reports: other - no shi ; Denies: dysuria, hematuria Neurologic: Denies: headache Psychiatric: Denies: depression Skin: Denies: rash Hematologic: Denies: bleeding Musculoskeletal: Denies: pain Allergies: Coded Allergies: [place] (Unverified Allergy, Mild, upset stomach, 02/10/19) TOMATO (Unverified Allergy, Mild, upset stomach, 02/10/19) TETRACYCLINE (Unverified Allergy, Unknown, 07/24/14) Objective Vital Signs Last 24 Hour Vital Signs Date Time Temp Pulse Resp B/P (MAP) Pulse Ox O2 Delivery O2 Flow Rate FiO2 08/23/19 16:00 96 08/23/19 16:00 97.5 109 20 137/66 (89) 95 08/23/19 16:00 89 08/23/19 13:11 85 20 96 Nasal Cannula 2.0 28 08/23/19 13:10 87 20 95 Nasal Cannula 2.0 28 08/23/19 12:00 97.9 87 18 130/69 (89) 96 08/23/19 09:00 Nasal Cannula 2.0 08/23/19 08:59 146/76 08/23/19 08:59 82 146/76 08/23/19 08:55 82 146/76 08/23/19 08:16 81 20 94 Nasal Cannula 2.0 28 08/23/19 08:16 82 20 95 Nasal Cannula 2.0 28 08/23/19 08:15 94 Nasal Cannula 2.0 28 08/23/19 08:00 94 08/23/19 08:00 97.0 99 20 146/76 (99) 97 08/23/19 04:00 78 08/23/19 04:00 98.4 81 17 145/78 (100) 94 08/23/19 00:59 86 20 96 Nasal Cannula 2.0 28 08/23/19 00:54 86 20 96 Nasal Cannula 2.0 28 08/23/19 00:00 89 08/23/19 00:00 98.8 104 18 134/76 (95) 97 08/22/19 21:08 109 126/72 08/22/19 21:00 Nasal Cannula 2.0 Height (Feet): 5 Height (Inches): 0.00 Weight (Pounds): 100 General Appearance: no acute distress HEENT: normocephalic, atraumatic, anicteric, mucous membranes moist Respiratory/Chest: crackles/rales, rhonchi - bilaterally Cardiovascular: normal rate, regular rhythm, no gallop/murmur, no JVD Abdomen: normal bowel sounds, soft, non tender, no organomegaly, non distended Genitourinary: other - + shi Extremities: no cyanosis Skin: no rash Neurologic/Psychiatric: utility bagger II-XII grossly normal, alert, oriented x 3, responsive Lymphatic: no neck adenopathy Musculoskeletal: no effusion Objective 08/18/13 - chest x-ray Procedure: XRAY Chest 1v Indication: Shortness of breath Technique: One view of the chest Comparison: 06/11/2019 Findings: The heart is enlarged. There is bilateral interstitial congestion. There is also some patchy airspace disease in the perihilar regions. There is pleural thickening versus fluid in the left inferolateral hemithorax. Surgical clips are seen adjacent to the right pulmonary hilum. Numerous surgical clips are seen in the right axilla. Findings are similar to the prior exam Impression: Findings likely represent congestive heart failure with interstitial edema, patchy airspace edema, and a left pleural effusion. However, similarity to the prior exam raises possibility that there is also a chronic component. Chest x-ray - 08/23/19 - Procedure: XRAY Chest 1v Indication: Shortness of breath Technique: One view of the chest Comparison: 08/18/2019 Findings: There is suggestion of increased hazy opacity at the right lung base, may reflect increasing infiltrate and/or pleural fluid. Left basilar infiltrate and pleural fluid appear unchanged. The heart is borderline enlarged. Surgical clips are again demonstrated in the right paratracheal region and also in the right axilla. Impression: Increasing right basilar hazy infiltrate and/or pleural fluid are in stable left basilar pleural and parenchymal disease, over 5 days Microbiology Date/Time Source Procedure Growth Status 08/18/19 19:00 Blood Blood Culture - Preliminary NO GROWTH AFTER 4 DAYS Resulted 08/18/19 19:00 Nasal Nares - Final Complete 08/18/19 19:00 Nasal Nares - Final Complete covid19 - pcr - + Laboratory Tests Test 08/23/19 08:40 White Blood Count 4.1 K/UL (4.8-10.8) L Red Blood Count 3.84 M/UL (4.20-5.40) L Hemoglobin 11.6 G/DL (12.0-16.0) L Hematocrit 33.8 % (37.0-47.0) L Mean Corpuscular Volume 88 FL (80-99) Mean Corpuscular Hemoglobin 30.3 PG (27.0-31.0) Mean Corpuscular Hemoglobin Concent 34.3 G/DL (32.0-36.0) Red Cell Distribution Width 11.5 % (11.6-14.8) L Platelet Count 244 K/UL (150-450) Mean Platelet Volume 6.6 FL (6.5-10.1) Neutrophils (%) (Auto) 53.3 % (45.0-75.0) Lymphocytes (%) (Auto) 31.0 % (20.0-45.0) Monocytes (%) (Auto) 13.6 % (1.0-10.0) H Eosinophils (%) (Auto) 0.3 % (0.0-3.0) Basophils (%) (Auto) 1.8 % (0.0-2.0) Sodium Level 140 MMOL/L (136-145) Potassium Level 3.4 MMOL/L (3.5-5.1) L Chloride Level 101 MMOL/L (98-107) Carbon Dioxide Level 29 MMOL/L (21-32) Anion Gap 10 mmol/L (5-15) Blood Urea Nitrogen 9 mg/dL (7-18) Creatinine 0.6 MG/DL (0.55-1.30) Estimat Glomerular Filtration Rate > 60 mL/min (>60) Glucose Level 127 MG/DL (74-106) H Calcium Level 9.6 MG/DL (8.5-10.1) Current Medications Medications (Trade) Dose Ordered Sig/Wilner Route PRN Reason Start Time Stop Time Status Last Admin Dose Admin Acetaminophen (Tylenol) 650 mg Q4H PRN ORAL Mild Pain (Pain Scale 1-3) 08/19/19 01:30 09/18/19 01:29 08/23/19 06:33 Al Hydroxide/Mg Hydroxide (Mylanta II) 20 ml Q4H PRN ORAL INDIGESTION 08/19/19 01:30 09/18/19 01:29 08/22/19 06:39 Albuterol Sulfate (Proventil MDI) 2 puff Q6HRT PRN INH Shortness of Breath 08/19/19 03:15 11/17/19 03:14 Amlodipine Besylate (Norvasc) 10 mg DAILY ORAL 08/19/19 09:00 09/18/19 08:59 08/23/19 08:59 Ascorbic Acid (Vitamin C) 500 mg DAILY ORAL 08/19/19 09:00 09/18/19 08:59 08/23/19 08:58 Aspirin (ASA) 81 mg DAILY ORAL 08/19/19 09:00 10/03/19 08:59 08/23/19 08:56 Atorvastatin [place] (Lipitor) 40 mg BEDTIME ORAL 08/19/19 21:00 11/17/19 20:59 08/22/19 21:04 Azithromycin (Zithromax) 250 mg DAILY ORAL 08/22/19 09:00 08/29/19 08:59 08/23/19 08:55 Benzonatate (Tessalon Perles) 100 mg TIDPRN PRN ORAL cough 08/18/19 21:15 09/17/19 21:14 08/23/19 06:33 Bisacodyl (Dulcolax) 10 mg DAILY PRN RECTAL Constipation 08/19/19 01:30 11/17/19 01:29 Calcium/Vitamin D (OsCal D) 1 tab DAILY ORAL 08/19/19 09:00 11/17/19 08:59 08/23/19 08:55 Clonazepam (KlonoPIN) 0.5 mg BID ORAL 08/19/19 09:00 08/26/19 08:59 08/23/19 17:25 Dextrose (Dextrose 50%) 25 ml Q30M PRN IV Hypoglycemia 08/18/19 21:00 11/16/19 20:59 Dextrose (Dextrose 50%) 50 ml Q30M PRN IV Hypoglycemia 08/18/19 21:00 11/16/19 20:59 Docusate Sodium (Colace) 100 mg EVERY 12 HOURS ORAL 08/18/19 21:00 09/17/19 20:59 08/23/19 08:58 Dronabinol (Marinol) 2.5 mg BID ORAL 08/19/19 09:00 11/17/19 08:59 08/23/19 17:23 Ferrous Sulfate (Feosol) 325 mg DAILY ORAL 08/19/19 09:00 11/17/19 08:59 08/23/19 08:56 Fluticasone Propionate (Flonase) 1 spray DAILY NASAL 08/19/19 09:00 09/18/19 08:59 08/23/19 08:59 Fluticasone Propionate (Flovent 110 mcg) 2 puff DAILY INH 08/19/19 09:00 09/18/19 08:59 08/23/19 08:18 Heparin Sodium (Porcine) (Heparin 5000 units/ml) 5,000 units EVERY 8 HOURS SUBQ 08/19/19 00:00 10/03/19 00:00 08/23/19 14:08 Hydralazine HCl (Apresoline) 10 mg Q6H PRN ORAL For High Blood Pressure 08/19/19 01:30 11/17/19 01:29 Hydroxychloroquine Sulfate (Plaquenil) 200 mg Q12H ORAL 08/20/19 21:00 08/24/19 09:01 08/23/19 09:08 Ipratropium [place] (Atrovent Inh) 1 puffs Q6HRT INH 08/19/19 07:00 09/18/19 06:59 08/23/19 07:00 Lactulose (Cephulac) 20 gm DAILY PRN ORAL Constipation 08/19/19 01:30 09/18/19 01:29 Lisinopril (PriniviL) 20 mg DAILY ORAL 08/19/19 09:00 09/18/19 08:59 08/23/19 08:59 Magnesium Oxide (Mag-Ox 400mg) 200 mg DAILY ORAL 08/19/19 09:00 09/18/19 08:59 08/23/19 08:56 Methocarbamol (Robaxin) 500 mg Q6H PRN ORAL MUSCLE SPASM 08/19/19 01:30 09/18/19 01:29 Metoprolol Tartrate (Lopressor) 25 mg Q12HR ORAL 08/19/19 09:00 11/17/19 08:59 08/23/19 08:55 Mirtazapine (Remeron) 15 mg BEDTIME ORAL 08/23/19 21:00 11/21/19 20:59 Montelukast Sodium (Singulair) 10 mg QPM ORAL 08/19/19 16:30 11/17/19 16:29 08/23/19 17:25 Multivitamins (Multivitamins) 1 tab DAILY ORAL 08/19/19 09:00 09/18/19 08:59 08/23/19 08:55 Ondansetron HCl (Zofran) 4 mg Q6H PRN ORAL Nausea & Vomiting 08/19/19 01:30 09/18/19 01:29 08/21/19 08:33 Oxycodone HCl (Roxicodone) 5 mg Q8H PRN ORAL Severe Pain (Pain Scale 7-10) 08/23/19 19:00 08/30/19 18:59 Pantoprazole (Protonix) 40 mg DAILY ORAL 08/19/19 09:00 09/18/19 08:59 08/23/19 08:55 Piperacillin Sod/ Tazobactam Sod 3.375 gm/Dextrose 100 ml @ 25 mls/hr EVERY 8 HOURS IVPB 08/21/19 22:00 08/26/19 21:59 08/23/19 14:08 Polyethylene Glycol (Miralax) 17 gm DAILY ORAL 08/19/19 09:00 09/18/19 08:59 08/22/19 10:43 Polyethylene Glycol (Miralax) 17 gm DAILYPRN PRN ORAL Constipation 08/18/19 21:00 09/17/19 20:59 Prednisone (predniSONE) 40 mg DAILY ORAL 08/22/19 09:00 09/21/19 08:59 08/23/19 08:56 Pregabalin (Lyrica) 75 mg TWICE A DAY ORAL 08/19/19 09:00 10/03/19 08:59 08/23/19 17:25 Sennosides (Senokot) 8.6 mg QHS ORAL 08/19/19 21:00 09/18/19 20:59 08/22/19 21:05 Vancomycin HCl (Vanco rx to dose) 1 ea DAILY PRN MISC Per rx protocol 08/21/19 19:30 09/20/19 19:29 Vancomycin HCl 500 mg/Dextrose 110 ml @ 110 mls/hr Q24H IVPB 08/22/19 21:00 08/27/19 20:59 08/22/19 21:03 Zinc Sulfate (Zinc Sulfate) 220 mg DAILY ORAL 08/19/19 09:00 11/17/19 08:59 08/23/19 08:56 Nyasia Grover MD Aug 23, 2019 20:26
--- NOTE | 2019-08-23 20:38 | Neurology Progress Note ---
Interim History Interim History ROS Limited/Unobtainable: No Interim History still in pain, minimal NC Objective Physical Exam Last Vital Signs Date Time Temp Pulse Resp B/P (MAP) Pulse Ox O2 Delivery O2 Flow Rate FiO2 08/23/19 16:00 96 08/23/19 16:00 97.5 20 137/66 (89) 95 08/23/19 13:11 Nasal Cannula 2.0 28 Laboratory Tests Test 08/23/19 08:40 White Blood Count 4.1 K/UL (4.8-10.8) L Red Blood Count 3.84 M/UL (4.20-5.40) L Hemoglobin 11.6 G/DL (12.0-16.0) L Hematocrit 33.8 % (37.0-47.0) L Mean Corpuscular Volume 88 FL (80-99) Mean Corpuscular Hemoglobin 30.3 PG (27.0-31.0) Mean Corpuscular Hemoglobin Concent 34.3 G/DL (32.0-36.0) Red Cell Distribution Width 11.5 % (11.6-14.8) L Platelet Count 244 K/UL (150-450) Mean Platelet Volume 6.6 FL (6.5-10.1) Neutrophils (%) (Auto) 53.3 % (45.0-75.0) Lymphocytes (%) (Auto) 31.0 % (20.0-45.0) Monocytes (%) (Auto) 13.6 % (1.0-10.0) H Eosinophils (%) (Auto) 0.3 % (0.0-3.0) Basophils (%) (Auto) 1.8 % (0.0-2.0) Sodium Level 140 MMOL/L (136-145) Potassium Level 3.4 MMOL/L (3.5-5.1) L Chloride Level 101 MMOL/L (98-107) Carbon Dioxide Level 29 MMOL/L (21-32) Anion Gap 10 mmol/L (5-15) Blood Urea Nitrogen 9 mg/dL (7-18) Creatinine 0.6 MG/DL (0.55-1.30) Estimat Glomerular Filtration Rate > 60 mL/min (>60) Glucose Level 127 MG/DL (74-106) H Calcium Level 9.6 MG/DL (8.5-10.1) General: well nourished Head: normocophalic Neck: no rigidity Neurologic Exam Mental Status: awake Objective moves all 4 symmetric Impression/Recommendations Problems: (1) Hypokalemia (2) Abdominal pain (3) Therapeutic opioid-induced constipation (OIC) (4) Shortness of breath (5) Diastolic CHF (6) Anemia (7) Anxiety (8) Hypercholesteremia (9) Hyponatremia (10) Hypertension (11) Severe sepsis (12) History of breast cancer (13) Respiratory failure with hypoxia (14) Protein-calorie malnutrition, mild (15) GERD (gastroesophageal reflux disease) (16) Cough (17) Dysphagia (18) SOB (shortness of breath) (19) Pleural effusion (20) Renal failure (21) Allergic rhinitis (22) Constipation (23) Osteoporosis (24) Aspiration pneumonia (25) Tracheobronchitis (26) Collapse of left lung (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 (28) Respiratory failure requiring intubation (29) Limited mobility (30) Acute metabolic encephalopathy (31) Decubitus skin ulcer (32) Leukocytosis (33) Gram-negative bacteremia (34) COPD (chronic obstructive pulmonary disease) (35) Chronic respiratory failure with hypoxia (36) Lumbar radiculopathy (37) Fibromyalgia (38) Cervical spondylosis (39) Diastolic CHF, acute on chronic (40) Lumbar spondylosis (41) Acute and chronic respiratory failure ([id number]) (42) Pneumonia (43) Cervical radiculopathy (44) DDD (degenerative disc disease), cervical (45) DDD (degenerative disc disease), lumbar (46) Troponin level elevated (47) UTI (urinary tract infection) Diagnostic Impression acute encephalopathy and gen weakness likely metabolic in the setting of possible covid and resp faikure myalgias GEn pain Depression COVID rule out atb per primary management of fluids nad hyponatremia pt ot delirium precautions Quentin Giron MD Aug 23, 2019 20:38
[2019-08-23] MEDS: Sennosides 8.6mg tab ORAL SCH (21:00)
[2019-08-23] MEDS: Vancomycin 500mg/D5W 110ml IVPB SCH ×2 (21:06)
[2019-08-23] MEDS: oxyCODONE 5mg IR tab ORAL PRN (21:11)
[2019-08-23] MEDS: Atorvastatin 20mg tab ORAL SCH (21:12)
[2019-08-24] VITALS: BP 130/75
[2019-08-24] MEDS: Ipratropium Bromide Inhaler INH SCH ×4 (01:26→20:10)
[2019-08-24 04:00] VITALS: BP 137/70
[2019-08-24] MEDS: Heparin 5000 units/ml inj SUBQ SCH ×3 (05:24→21:54)
[2019-08-24 08:00] VITALS: BP 131/61
[2019-08-24 08:37] LABS: BASOPHILS % (AUTO) 1.8 % (0.0-2.0); EOSINOPHILS % (AUTO) 0.9 % (0.0-3.0); HEMATOCRIT 32.3 % (37.0-47.0); HEMOGLOBIN 11.1 G/DL (12.0-16.0); LYMPHOCYTES % (AUTO) 35.6 % (20.0-45.0); MEAN CORPUSCULAR VOLUME 89 FL (80-99); NEUTROPHILS % (AUTO) 48.8 % (45.0-75.0); PLATELET COUNT 308 K/UL (150-450); RED BLOOD COUNT 3.65 M/UL (4.20-5.40); RED CELL DISTRIBUTION WIDTH 11.4 % (11.6-14.8); WHITE BLOOD COUNT 4.8 K/UL (4.8-10.8)
[2019-08-24] MEDS: clonazePAM 0.5mg tab ORAL SCH ×2 (08:38→17:06)
[2019-08-24] MEDS: Zinc Sulfate 220mg cap ORAL SCH (08:39)
[2019-08-24] MEDS: Docusate 100mg cap ORAL SCH ×2 (08:39→21:43)
[2019-08-24] MEDS: Miralax 17gm pkt ORAL SCH (08:39)
[2019-08-24] MEDS: Calcium Carbonate 500mg w/Vit D 200iu tab ORAL SCH (08:39)
[2019-08-24] MEDS: Lyrica 75mg cap ORAL SCH ×2 (08:40→17:07)
[2019-08-24] MEDS: Lisinopril 20mg tab ORAL SCH (08:40)
[2019-08-24] MEDS: Ascorbic Acid 500mg tab ORAL SCH (08:40)
[2019-08-24] MEDS: Magnesium Oxide 400mg tab ORAL SCH (08:41)
[2019-08-24] MEDS: Dronabinol 2.5mg Cap ORAL SCH ×2 (08:41→17:08)
[2019-08-24] MEDS: oxyCODONE 5mg IR tab ORAL PRN ×2 (08:41→17:06)
[2019-08-24] MEDS: Aspirin Baby 81mg ORAL SCH (08:41)
[2019-08-24] MEDS: Flonase Nasal Inhaler 16gm NASAL SCH (08:45)
[2019-08-24 08:46] LABS: ANION GAP 10 mmol/L (5-15); BLOOD UREA NITROGEN 15 mg/dL (7-18); CALCIUM 9.7 MG/DL (8.5-10.1); CARBON DIOXIDE 31 MMOL/L (21-32); CHLORIDE 101 MMOL/L (98-107); CREATININE 0.7 MG/DL (0.55-1.30); SODIUM 141 MMOL/L (136-145)
[2019-08-24] MEDS: Flovent 110mcg Inhaler - 12gm INH SCH (08:46)
--- NOTE | 2019-08-24 09:19 | Nephrology Progress Note ---
Assessment/Plan Plan #Hyponatremia - likely hypovolumic - r/o SIADH in the setting of pulmonary infection- improving #Acute on chronic hypoxic resp failure #Acute bronchitis #Rule out COVID-19 #COPD #HTN #Chronic diastolic CHF #Depression #GERD #Chronic right hydronephrosis #Left hemorrhagic renal cyst #Nephrolithiasis #Hematuria #hypokalemia - repleted - replete K - monitor BMP - check free T4-> WNL - Continue lisinopril 20 daily, MTP 23 BID, amlodipine 10 qdaily - continue antibiotics per ID - breathing treatment. - ID and Pulm eval - Continue Lexapro- consider holding if sodium if continues to drop - Continue qhs Mirtazapine - consider holding if sodium if continues to drop - Continue pregabalin 75 mg BID - consider holding if sodium if continues to drop Subjective Subjective sodium stable K low - repleted Breathing stable BP stable Objective Objective Last 24 Hour Vital Signs Date Time Temp Pulse Resp B/P (MAP) Pulse Ox O2 Delivery O2 Flow Rate FiO2 08/24/19 08:50 95 Nasal Cannula 2.0 28 08/24/19 08:47 103 22 95 Nasal Cannula 2.0 28 08/24/19 08:47 98 18 94 Nasal Cannula 2.0 28 08/24/19 08:40 80 131/61 08/24/19 08:40 131/61 08/24/19 08:40 80 131/61 08/24/19 08:00 96.7 80 18 131/61 (84) 97 08/24/19 04:00 97.2 76 18 137/70 (92) 94 08/24/19 04:00 73 08/24/19 01:29 105 20 95 Nasal Cannula 2.0 28 08/24/19 01:26 102 20 95 Nasal Cannula 2.0 28 08/24/19 00:00 98.4 103 17 130/75 (93) 94 08/24/19 00:00 96 08/23/19 21:33 108 134/86 08/23/19 21:00 Nasal Cannula 2.0 08/23/19 20:16 96 20 96 Nasal Cannula 2.0 28 08/23/19 20:15 96 20 96 Nasal Cannula 2.0 28 08/23/19 20:15 96 Nasal Cannula 2.0 28 08/23/19 20:00 94 08/23/19 20:00 98.6 108 18 134/86 (102) 92 08/23/19 16:00 96 08/23/19 16:00 97.5 109 20 137/66 (89) 95 08/23/19 16:00 89 08/23/19 13:11 85 20 96 Nasal Cannula 2.0 28 08/23/19 13:10 87 20 95 Nasal Cannula 2.0 28 08/23/19 12:00 97.9 87 18 130/69 (89) 96 Intake and Output 08/23/19 08/24/19 19:00 07:00 Intake Total 415 ml 570 ml Output Total 600 ml Balance 415 ml -30 ml Intake Oral 240 ml 360 ml IV Total 175 ml 210 ml Output Urine Total 600 ml # Voids 3 1 Laboratory Tests 08/24/19 08:15: White Blood Count 4.8, Red Blood Count 3.65L, Hemoglobin 11.1L, Hematocrit 32.3L , Mean Corpuscular Volume 89, Mean Corpuscular Hemoglobin 30.5, Mean Corpuscular Hemoglobin Concent 34.4, Red Cell Distribution Width 11.4L, Platelet Count 308, Mean Platelet Volume 6.5, Neutrophils (%) (Auto) 48.8, Lymphocytes (%) (Auto) 35.6, Monocytes (%) (Auto) 13.0H, Eosinophils (%) (Auto) 0.9, Basophils (%) (Auto) 1.8, Sodium Level 141, Potassium Level 3.0L, Chloride Level 101, Carbon Dioxide Level 31, Anion Gap 10, Blood Urea Nitrogen 15, Creatinine 0.7, Estimat Glomerular Filtration Rate > 60, Glucose Level 112H, Calcium Level 9.7 Height (Feet): 5 Height (Inches): 0.00 Weight (Pounds): 123 Salma Ibanez M.D. Aug 24, 2019 09:19
--- NOTE | 2019-08-24 11:35 | Pulmonology Progress Note ---
Assessment/Plan Assessment/Plan ASSESSMENT: The patient is a 78-year-old female with a history of COPD, diastolic dysfunction, CHF, breast cancer, anemia, admitted with COVID 19 PNA PROBLEM LIST: 1. COVID19 PNA 2. Acute hypoxemic respiratory failure. 3. COPD. 4. CHF with diastolic dysfunction. 5. History of mucus plugging. 6. History of breast cancer. 7. Anemia. 8. Hyponatremia. 9. Dementia. 10. 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 11. Dysphagia. TREATMENT PLAN: 1. Optimize pulmonary hygiene/mobilize as tolerated. 2. Titrate down FiO2 to keep saturations greater than 90%. 3. Tqarb-ibp-jofce and p.r.n. albuterol and Atrovent metered-dose inhalers via spacer. 4. Completed Plaquenil (D5/5) 5. Pred 40 (D4) 6. ABx: Vanco/Zosyn per ID, completed 5 days of Azithro 7. Monitor volumes and renal function. 8. DVT prophylaxis, heparin subcu. 9. Continue Singulair. 10. Continue fluticasone inhaler b.i.d. 11. Continue Tessalon t.i.d. p.r.n. 12. Continue Mucinex and p.r.n. Robitussin. D/W patient D/W RN Subjective Allergies: Coded Allergies: [place] (Unverified Allergy, Mild, upset stomach, 02/10/19) TOMATO (Unverified Allergy, Mild, upset stomach, 02/10/19) TETRACYCLINE (Unverified Allergy, Unknown, 07/24/14) Subjective NAEO AFVSS on 2L + cough + SOB no FC no CP Objective Last 24 Hour Vital Signs Date Time Temp Pulse Resp B/P (MAP) Pulse Ox O2 Delivery O2 Flow Rate FiO2 08/24/19 09:10 96.7 08/24/19 09:00 Nasal Cannula 2.0 08/24/19 08:50 95 Nasal Cannula 2.0 28 08/24/19 08:47 103 22 95 Nasal Cannula 2.0 28 08/24/19 08:47 98 18 94 Nasal Cannula 2.0 28 08/24/19 08:40 80 131/61 08/24/19 08:40 131/61 08/24/19 08:40 80 131/61 08/24/19 08:00 96.7 80 18 131/61 (84) 97 08/24/19 08:00 97 08/24/19 04:00 97.2 76 18 137/70 (92) 94 08/24/19 04:00 73 08/24/19 01:29 105 20 95 Nasal Cannula 2.0 28 08/24/19 01:26 102 20 95 Nasal Cannula 2.0 28 08/24/19 00:00 98.4 103 17 130/75 (93) 94 08/24/19 00:00 96 08/23/19 21:33 108 134/86 08/23/19 21:00 Nasal Cannula 2.0 08/23/19 20:16 96 20 96 Nasal Cannula 2.0 28 08/23/19 20:15 96 20 96 Nasal Cannula 2.0 28 08/23/19 20:15 96 Nasal Cannula 2.0 28 08/23/19 20:00 94 08/23/19 20:00 98.6 108 18 134/86 (102) 92 08/23/19 16:00 96 08/23/19 16:00 97.5 109 20 137/66 (89) 95 08/23/19 16:00 89 08/23/19 13:11 85 20 96 Nasal Cannula 2.0 28 08/23/19 13:10 87 20 95 Nasal Cannula 2.0 28 08/23/19 12:00 97.9 87 18 130/69 (89) 96 Intake and Output 08/23/19 08/24/19 19:00 07:00 Intake Total 415 ml 570 ml Output Total 600 ml Balance 415 ml -30 ml Intake Oral 240 ml 360 ml IV Total 175 ml 210 ml Output Urine Total 600 ml # Voids 3 1 Objective Deferred 2/2 COVID isolation, PPE requirements, no distress, not coughing, less confused, awake and alert Laboratory Tests 08/24/19 08:15: White Blood Count 4.8, Red Blood Count 3.65L, Hemoglobin 11.1L, Hematocrit 32.3L , Mean Corpuscular Volume 89, Mean Corpuscular Hemoglobin 30.5, Mean Corpuscular Hemoglobin Concent 34.4, Red Cell Distribution Width 11.4L, Platelet Count 308, Mean Platelet Volume 6.5, Neutrophils (%) (Auto) 48.8, Lymphocytes (%) (Auto) 35.6, Monocytes (%) (Auto) 13.0H, Eosinophils (%) (Auto) 0.9, Basophils (%) (Auto) 1.8, Sodium Level 141, Potassium Level 3.0L, Chloride Level 101, Carbon Dioxide Level 31, Anion Gap 10, Blood Urea Nitrogen 15, Creatinine 0.7, Estimat Glomerular Filtration Rate > 60, Glucose Level 112H, Calcium Level 9.7 Current Medications Medications (Trade) Dose Ordered Sig/Wilner Route PRN Reason Start Time Stop Time Status Last Admin Dose Admin Acetaminophen (Tylenol) 650 mg Q4H PRN ORAL Mild Pain (Pain Scale 1-3) 08/19/19 01:30 09/18/19 01:29 08/23/19 06:33 Al Hydroxide/Mg Hydroxide (Mylanta II) 20 ml Q4H PRN ORAL INDIGESTION 08/19/19 01:30 09/18/19 01:29 08/22/19 06:39 Albuterol Sulfate (Proventil MDI) 2 puff Q6HRT PRN INH Shortness of Breath 08/19/19 03:15 11/17/19 03:14 Amlodipine Besylate (Norvasc) 10 mg DAILY ORAL 08/19/19 09:00 09/18/19 08:59 08/24/19 08:40 Ascorbic Acid (Vitamin C) 500 mg DAILY ORAL 08/19/19 09:00 09/18/19 08:59 08/24/19 08:40 Aspirin (ASA) 81 mg DAILY ORAL 08/19/19 09:00 10/03/19 08:59 08/24/19 08:41 Atorvastatin Calcium (Lipitor) 40 mg BEDTIME ORAL 08/19/19 21:00 11/17/19 20:59 08/23/19 21:12 Benzonatate (Tessalon Perles) 100 mg TIDPRN PRN ORAL cough 08/18/19 21:15 09/17/19 21:14 08/23/19 06:33 Bisacodyl (Dulcolax) 10 mg DAILY PRN RECTAL Constipation 08/19/19 01:30 11/17/19 01:29 Calcium/Vitamin D (OsCal D) 1 tab DAILY ORAL 08/19/19 09:00 11/17/19 08:59 08/24/19 08:39 Clonazepam (KlonoPIN) 0.5 mg BID ORAL 08/19/19 09:00 08/26/19 08:59 08/24/19 08:38 Dextrose (Dextrose 50%) 25 ml Q30M PRN IV Hypoglycemia 08/18/19 21:00 11/16/19 20:59 Dextrose (Dextrose 50%) 50 ml Q30M PRN IV Hypoglycemia 08/18/19 21:00 11/16/19 20:59 Docusate Sodium (Colace) 100 mg EVERY 12 HOURS ORAL 08/18/19 21:00 09/17/19 20:59 08/24/19 08:39 Dronabinol (Marinol) 2.5 mg BID ORAL 08/19/19 09:00 11/17/19 08:59 08/24/19 08:41 Ferrous Sulfate (Feosol) 325 mg DAILY ORAL 08/19/19 09:00 11/17/19 08:59 08/24/19 08:40 Fluticasone Propionate (Flonase) 1 spray DAILY NASAL 08/19/19 09:00 09/18/19 08:59 08/24/19 08:45 Fluticasone Propionate (Flovent 110 mcg) 2 puff DAILY INH 08/19/19 09:00 09/18/19 08:59 08/24/19 08:46 Heparin Sodium (Porcine) (Heparin 5000 units/ml) 5,000 units EVERY 8 HOURS SUBQ 08/19/19 00:00 10/03/19 00:00 08/23/19 14:08 Hydralazine HCl (Apresoline) 10 mg Q6H PRN ORAL For High Blood Pressure 08/19/19 01:30 11/17/19 01:29 Ipratropium [place] (Atrovent Inh) 1 puffs Q6HRT INH 08/19/19 07:00 09/18/19 06:59 08/24/19 07:00 Lactulose (Cephulac) 20 gm DAILY PRN ORAL Constipation 08/19/19 01:30 09/18/19 01:29 Lisinopril (PriniviL) 20 mg DAILY ORAL 08/19/19 09:00 09/18/19 08:59 08/24/19 08:40 Magnesium Oxide (Mag-Ox 400mg) 200 mg DAILY ORAL 08/19/19 09:00 09/18/19 08:59 08/24/19 08:41 Methocarbamol (Robaxin) 500 mg Q6H PRN ORAL MUSCLE SPASM 08/19/19 01:30 09/18/19 01:29 Metoprolol Tartrate (Lopressor) 25 mg Q12HR ORAL 08/19/19 09:00 11/17/19 08:59 08/24/19 08:40 Mirtazapine (Remeron) 15 mg BEDTIME ORAL 08/23/19 21:00 11/21/19 20:59 08/23/19 21:10 Montelukast Sodium (Singulair) 10 mg QPM ORAL 08/19/19 16:30 11/17/19 16:29 08/23/19 17:25 Multivitamins (Multivitamins) 1 tab DAILY ORAL 08/19/19 09:00 09/18/19 08:59 08/24/19 08:41 Ondansetron HCl (Zofran) 4 mg Q6H PRN ORAL Nausea & Vomiting 08/19/19 01:30 09/18/19 01:29 08/24/19 06:20 Oxycodone HCl (Roxicodone) 5 mg Q8H PRN ORAL Severe Pain (Pain Scale 7-10) 08/23/19 19:00 08/30/19 18:59 08/24/19 08:41 Pantoprazole (Protonix) 40 mg DAILY ORAL 08/19/19 09:00 09/18/19 08:59 08/24/19 08:41 Piperacillin Sod/ Tazobactam Sod 3.375 gm/Dextrose 100 ml @ 25 mls/hr EVERY 8 HOURS IVPB 08/21/19 22:00 08/26/19 21:59 08/24/19 05:10 Polyethylene Glycol (Miralax) 17 gm DAILY ORAL 08/19/19 09:00 09/18/19 08:59 08/22/19 10:43 Polyethylene Glycol (Miralax) 17 gm DAILYPRN PRN ORAL Constipation 08/18/19 21:00 09/17/19 20:59 Prednisone (predniSONE) 40 mg DAILY ORAL 08/22/19 09:00 09/21/19 08:59 08/24/19 08:39 Pregabalin (Lyrica) 75 mg TWICE A DAY ORAL 08/19/19 09:00 10/03/19 08:59 08/24/19 08:40 Sennosides (Senokot) 8.6 mg QHS ORAL 08/19/19 21:00 09/18/19 20:59 08/22/19 21:05 Vancomycin HCl (Vanco rx to dose) 1 ea DAILY PRN MISC Per rx protocol 08/21/19 19:30 09/20/19 19:29 Vancomycin HCl 500 mg/Dextrose 110 ml @ 110 mls/hr Q24H IVPB 08/22/19 21:00 08/27/19 20:59 08/23/19 21:06 Zinc Sulfate (Zinc Sulfate) 220 mg DAILY ORAL 08/19/19 09:00 11/17/19 08:59 08/24/19 08:39 Rafael Lerma MD Aug 24, 2019 11:35
[2019-08-24 12:00] VITALS: BP 127/68
--- NOTE | 2019-08-24 13:49 | General Progress Note ---
Assessment/Plan Assessment/Plan: 78 year old woman SNF resident with chronic resp failure due to COPD, HTN, chronic dCHF, chronic pain, depression, anxiety, chronic right hydronephrosis who presented from SNF with dyspnea, cough body aches, COVID-19 positive #Acute on chronic hypoxic resp failure, 2L O2 dependant #Acute bronchitis #HCAP #COVID-19 POSITIVE #COPD -cont. inpatient medical care -Inhaled bronchodilators prn -Continue supplemental oxygen -COVID-19 positive -Will defer systemic steroid use to Pulm -abx per ID: vanc/zosyn day #08/15, s/p hydroxychloroquine #09/12, s/p azithro #09/12 -ID and Pulm consulted, recs appreciated -d/w ID, will re-test for COVID, will need two negative tests for safe d/c back to SNF #Hyponatremia - resolved #Hypokalemia -replaced, ctm, replace PRN -likely hypovolumic -pt refused PO potassium -Nephro following, recs appreciated #HTN #Chronic diastolic CHF -Cont outpatient meds lisinopril 20 daily, MTP 25 BID, amlodipine 10 q daily #Depression #Chronic pain #Anxiety disorder #Osteoarthritis -Continue qhs Mirtazapine. -Continue pregabalin 75 mg BID -Continue home Dronabinol 2.5 mg BID -Continue Clonazepam 0.5 mg BID -Continue Oxycodone 5 mg q12h prn -Psych consulted - recs appreciated #GERD -cont. PPI #Chronic right hydronephrosis #Left hemorrhagic renal cyst #Nephrolithiasis #Hematuria Time spent on encounter: 30 mins, start time: 9:30 AM, end time 1:45 PM, 16 mins spent on coordination of care w/RN, pt counseling on POC. Additional 35 mins spent on non-face to face time discussing w/ID on retesting COVID and updating pt's sister, Diane, , on POC. Time of note doesn't reflect time of encounter. Subjective Allergies: Coded Allergies: [place] (Unverified Allergy, Mild, upset stomach, 02/10/19) [place] (Unverified Allergy, Mild, upset stomach, 02/10/19) TETRACYCLINE (Unverified Allergy, Unknown, 07/24/14) Subjective Follow-up for acute on chronic hypoxic respiratory failure. COVID Positive. Patient appears anxious otherwise denies any SOB. Objective Last 24 Hour Vital Signs Date Time Temp Pulse Resp B/P (MAP) Pulse Ox O2 Delivery O2 Flow Rate FiO2 08/24/19 12:08 Nasal Cannula 2.0 28 08/24/19 12:08 Nasal Cannula 2.0 28 08/24/19 12:00 98.2 67 18 127/68 (87) 98 08/24/19 09:10 96.7 08/24/19 09:00 Nasal Cannula 2.0 08/24/19 08:50 95 Nasal Cannula 2.0 28 08/24/19 08:47 103 22 95 Nasal Cannula 2.0 28 08/24/19 08:47 98 18 94 Nasal Cannula 2.0 28 08/24/19 08:40 80 131/61 08/24/19 08:40 131/61 08/24/19 08:40 80 131/61 08/24/19 08:00 96.7 80 18 131/61 (84) 97 08/24/19 08:00 97 08/24/19 04:00 97.2 76 18 137/70 (92) 94 08/24/19 04:00 73 08/24/19 01:29 105 20 95 Nasal Cannula 2.0 28 08/24/19 01:26 102 20 95 Nasal Cannula 2.0 28 08/24/19 00:00 98.4 103 17 130/75 (93) 94 08/24/19 00:00 96 08/23/19 21:33 108 134/86 08/23/19 21:00 Nasal Cannula 2.0 08/23/19 20:16 96 20 96 Nasal Cannula 2.0 28 08/23/19 20:15 96 20 96 Nasal Cannula 2.0 28 08/23/19 20:15 96 Nasal Cannula 2.0 28 08/23/19 20:00 94 08/23/19 20:00 98.6 108 18 134/86 (102) 92 08/23/19 16:00 96 08/23/19 16:00 97.5 109 20 137/66 (89) 95 08/23/19 16:00 89 Intake and Output 08/23/19 08/24/19 18:59 06:59 Intake Total 440 ml 570 ml Output Total 600 ml Balance 440 ml -30 ml Intake Oral 240 ml 360 ml IV Total 200 ml 210 ml Output Urine Total 600 ml # Voids 3 1 Laboratory Tests 08/24/19 08:15: White Blood Count 4.8, Red Blood Count 3.65L, Hemoglobin 11.1L, Hematocrit 32.3L , Mean Corpuscular Volume 89, Mean Corpuscular Hemoglobin 30.5, Mean Corpuscular Hemoglobin Concent 34.4, Red Cell Distribution Width 11.4L, Platelet Count 308, Mean Platelet Volume 6.5, Neutrophils (%) (Auto) 48.8, Lymphocytes (%) (Auto) 35.6, Monocytes (%) (Auto) 13.0H, Eosinophils (%) (Auto) 0.9, Basophils (%) (Auto) 1.8, Sodium Level 141, Potassium Level 3.0L, Chloride Level 101, Carbon Dioxide Level 31, Anion Gap 10, Blood Urea Nitrogen 15, Creatinine 0.7, Estimat Glomerular Filtration Rate > 60, Glucose Level 112H, Calcium Level 9.7 Height (Feet): 5 Height (Inches): 0.00 Weight (Pounds): 123 Objective General Appearance: Anxious otherwise NAD, on 2L NC HEENT: atraumatic, anicteric Neck: normal alignment, supple Respiratory/Chest: CTAB, no respiratory distress, no accessory muscle use Cardiovascular/Chest: normal rate, regular rhythm Abdomen: non tender, soft, +BS Ext: no edema Morgan Lutz M.D. Aug 24, 2019 13:49
[2019-08-24 16:00] VITALS: BP 110/65
[2019-08-24] MEDS: Montelukast 10mg tablet ORAL SCH (17:06)
[2019-08-24 20:00] VITALS: BP 150/81
[2019-08-24] MEDS: Vancomycin 500mg/D5W 110ml IVPB SCH ×4 (21:00→22:12)
[2019-08-24] MEDS: Sennosides 8.6mg tab ORAL SCH (21:00)
[2019-08-24] MEDS: Atorvastatin 20mg tab ORAL SCH (21:41)
--- NOTE | 2019-08-24 22:02 | Neurology Progress Note ---
Interim History Interim History ROS Limited/Unobtainable: No Interim History no new deficits Objective Physical Exam Last Vital Signs Date Time Temp Pulse Resp B/P (MAP) Pulse Ox O2 Delivery O2 Flow Rate FiO2 08/24/19 21:42 104 150/81 08/24/19 20:15 20 96 Nasal Cannula 2.0 28 08/24/19 17:37 97.3 Laboratory Tests Test 08/24/19 08:15 08/24/19 21:14 White Blood Count 4.8 K/UL (4.8-10.8) Red Blood Count 3.65 M/UL (4.20-5.40) L Hemoglobin 11.1 G/DL (12.0-16.0) L Hematocrit 32.3 % (37.0-47.0) L Mean Corpuscular Volume 89 FL (80-99) Mean Corpuscular Hemoglobin 30.5 PG (27.0-31.0) Mean Corpuscular Hemoglobin Concent 34.4 G/DL (32.0-36.0) Red Cell Distribution Width 11.4 % (11.6-14.8) L Platelet Count 308 K/UL (150-450) Mean Platelet Volume 6.5 FL (6.5-10.1) Neutrophils (%) (Auto) 48.8 % (45.0-75.0) Lymphocytes (%) (Auto) 35.6 % (20.0-45.0) Monocytes (%) (Auto) 13.0 % (1.0-10.0) H Eosinophils (%) (Auto) 0.9 % (0.0-3.0) Basophils (%) (Auto) 1.8 % (0.0-2.0) Sodium Level 141 MMOL/L (136-145) Potassium Level 3.0 MMOL/L (3.5-5.1) L Chloride Level 101 MMOL/L (98-107) Carbon Dioxide Level 31 MMOL/L (21-32) Anion Gap 10 mmol/L (5-15) Blood Urea Nitrogen 15 mg/dL (7-18) Creatinine 0.7 MG/DL (0.55-1.30) Estimat Glomerular Filtration Rate > 60 mL/min (>60) Glucose Level 112 MG/DL (74-106) H Calcium Level 9.7 MG/DL (8.5-10.1) Vancomycin Level Trough 3.1 ug/mL (5.0-12.0) L General: well nourished Head: normocophalic Neck: no rigidity Neurologic Exam Mental Status: awake Objective moves all 4 symmetric Impression/Recommendations Problems: (1) Hypokalemia (2) Abdominal pain (3) Therapeutic opioid-induced constipation (OIC) (4) Shortness of breath (5) Diastolic CHF (6) Anemia (7) Anxiety (8) Hypercholesteremia (9) Hyponatremia (10) Hypertension (11) Severe sepsis (12) History of breast cancer (13) Respiratory failure with hypoxia (14) Protein-calorie malnutrition, mild (15) GERD (gastroesophageal reflux disease) (16) Cough (17) Dysphagia (18) SOB (shortness of breath) (19) Pleural effusion (20) Renal failure (21) Allergic rhinitis (22) Constipation (23) Osteoporosis (24) Aspiration pneumonia (25) Tracheobronchitis (26) Collapse of left lung (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 (28) Respiratory failure requiring intubation (29) Limited mobility (30) Acute metabolic encephalopathy (31) Decubitus skin ulcer (32) Leukocytosis (33) Gram-negative bacteremia (34) COPD (chronic obstructive pulmonary disease) (35) Chronic respiratory failure with hypoxia (36) Lumbar radiculopathy (37) Fibromyalgia (38) Cervical spondylosis (39) Diastolic CHF, acute on chronic (40) Lumbar spondylosis (41) Acute and chronic respiratory failure ([id number]) (42) Pneumonia (43) Cervical radiculopathy (44) DDD (degenerative disc disease), cervical (45) DDD (degenerative disc disease), lumbar (46) Troponin level elevated (47) UTI (urinary tract infection) Diagnostic Impression acute encephalopathy and gen weakness likely metabolic in the setting of possible covid and resp faikure myalgias GEn pain Depression COVID rule out atb per primary management of fluids nad hyponatremia pt ot delirium precautions Quentin Giron MD Aug 24, 2019 22:02
--- NOTE | 2019-08-24 23:27 | Psych Consult Progress Note ---
Psychiatry Progress Note Psychiatry Progress Note Medications Current Medications Medications (Trade) Dose Ordered Sig/Wilner Route PRN Reason Start Time Stop Time Status Last Admin Dose Admin Acetaminophen (Tylenol) 650 mg Q4H PRN ORAL Mild Pain (Pain Scale 1-3) 08/19/19 01:30 09/18/19 01:29 08/23/19 06:33 Al Hydroxide/Mg Hydroxide (Mylanta II) 20 ml Q4H PRN ORAL INDIGESTION 08/19/19 01:30 09/18/19 01:29 08/22/19 06:39 Albuterol Sulfate (Proventil MDI) 2 puff Q6HRT PRN INH Shortness of Breath 08/19/19 03:15 11/17/19 03:14 Amlodipine Besylate (Norvasc) 10 mg DAILY ORAL 08/19/19 09:00 09/18/19 08:59 08/24/19 08:40 Ascorbic Acid (Vitamin C) 500 mg DAILY ORAL 08/19/19 09:00 09/18/19 08:59 08/24/19 08:40 Aspirin (ASA) 81 mg DAILY ORAL 08/19/19 09:00 10/03/19 08:59 08/24/19 08:41 Atorvastatin Calcium (Lipitor) 40 mg BEDTIME ORAL 08/19/19 21:00 11/17/19 20:59 08/24/19 21:41 Benzonatate (Tessalon Perles) 100 mg TIDPRN PRN ORAL cough 08/18/19 21:15 09/17/19 21:14 08/23/19 06:33 Bisacodyl (Dulcolax) 10 mg DAILY PRN RECTAL Constipation 08/19/19 01:30 11/17/19 01:29 Calcium/Vitamin D (OsCal D) 1 tab DAILY ORAL 08/19/19 09:00 11/17/19 08:59 08/24/19 08:39 Clonazepam (KlonoPIN) 0.5 mg BID ORAL 08/19/19 09:00 08/26/19 08:59 08/24/19 17:06 Dextrose (Dextrose 50%) 25 ml Q30M PRN IV Hypoglycemia 08/18/19 21:00 11/16/19 20:59 Dextrose (Dextrose 50%) 50 ml Q30M PRN IV Hypoglycemia 08/18/19 21:00 11/16/19 20:59 Docusate Sodium (Colace) 100 mg EVERY 12 HOURS ORAL 08/18/19 21:00 09/17/19 20:59 08/24/19 21:43 Dronabinol (Marinol) 2.5 mg BID ORAL 08/19/19 09:00 11/17/19 08:59 08/24/19 17:08 Ferrous Sulfate (Feosol) 325 mg DAILY ORAL 08/19/19 09:00 11/17/19 08:59 08/24/19 08:40 Fluticasone Propionate (Flonase) 1 spray DAILY NASAL 08/19/19 09:00 09/18/19 08:59 08/24/19 08:45 Fluticasone Propionate (Flovent 110 mcg) 2 puff DAILY INH 08/19/19 09:00 09/18/19 08:59 08/24/19 08:46 Heparin Sodium (Porcine) (Heparin 5000 units/ml) 5,000 units EVERY 8 HOURS SUBQ 08/19/19 00:00 10/03/19 00:00 08/23/19 14:08 Hydralazine HCl (Apresoline) 10 mg Q6H PRN ORAL For High Blood Pressure 08/19/19 01:30 11/17/19 01:29 Ipratropium [place] (Atrovent Inh) 1 puffs Q6HRT INH 08/19/19 07:00 09/18/19 06:59 08/24/19 20:10 Lactulose (Cephulac) 20 gm DAILY PRN ORAL Constipation 08/19/19 01:30 09/18/19 01:29 Lisinopril (PriniviL) 20 mg DAILY ORAL 08/19/19 09:00 09/18/19 08:59 08/24/19 08:40 Magnesium Oxide (Mag-Ox 400mg) 200 mg DAILY ORAL 08/19/19 09:00 09/18/19 08:59 08/24/19 08:41 Methocarbamol (Robaxin) 500 mg Q6H PRN ORAL MUSCLE SPASM 08/19/19 01:30 09/18/19 01:29 Metoprolol Tartrate (Lopressor) 25 mg Q12HR ORAL 08/19/19 09:00 11/17/19 08:59 08/24/19 21:42 Mirtazapine (Remeron) 15 mg BEDTIME ORAL 08/23/19 21:00 11/21/19 20:59 08/24/19 21:41 Montelukast Sodium (Singulair) 10 mg QPM ORAL 08/19/19 16:30 11/17/19 16:29 08/24/19 17:06 Multivitamins (Multivitamins) 1 tab DAILY ORAL 08/19/19 09:00 09/18/19 08:59 08/24/19 08:41 Ondansetron HCl (Zofran) 4 mg Q6H PRN ORAL Nausea & Vomiting 08/19/19 01:30 09/18/19 01:29 08/24/19 06:20 Oxycodone HCl (Roxicodone) 5 mg Q8H PRN ORAL Severe Pain (Pain Scale 7-10) 08/23/19 19:00 08/30/19 18:59 08/24/19 17:06 Pantoprazole (Protonix) 40 mg DAILY ORAL 08/19/19 09:00 09/18/19 08:59 08/24/19 08:41 Piperacillin Sod/ Tazobactam Sod 3.375 gm/Dextrose 100 ml @ 25 mls/hr EVERY 8 HOURS IVPB 08/21/19 22:00 08/26/19 21:59 08/24/19 22:00 Polyethylene Glycol (Miralax) 17 gm DAILY ORAL 08/19/19 09:00 09/18/19 08:59 08/22/19 10:43 Polyethylene Glycol (Miralax) 17 gm DAILYPRN PRN ORAL Constipation 08/18/19 21:00 09/17/19 20:59 Prednisone (predniSONE) 40 mg DAILY ORAL 08/22/19 09:00 09/21/19 08:59 08/24/19 08:39 Pregabalin (Lyrica) 75 mg TWICE A DAY ORAL 08/19/19 09:00 10/03/19 08:59 08/24/19 17:07 Sennosides (Senokot) 8.6 mg QHS ORAL 08/19/19 21:00 09/18/19 20:59 08/22/19 21:05 Vancomycin HCl (Vanco rx to dose) 1 ea DAILY PRN MISC Per rx protocol 08/21/19 19:30 09/20/19 19:29 Vancomycin HCl 500 mg/Dextrose 110 ml @ 110 mls/hr Q12HR@1000,2200 IVPB 08/24/19 22:00 08/29/19 21:59 08/24/19 22:12 Zinc Sulfate (Zinc Sulfate) 220 mg DAILY ORAL 08/19/19 09:00 11/17/19 08:59 08/24/19 08:39 Neurological/Psychiatric: Reports: anxiety, depressed, emotional problems Allergies: Coded Allergies: [place] (Unverified Allergy, Mild, upset stomach, 02/10/19) TOMATO (Unverified Allergy, Mild, upset stomach, 02/10/19) TETRACYCLINE (Unverified Allergy, Unknown, 07/24/14) Objective Data Height (Feet): 5 Height (Inches): 0.00 Weight (Pounds): 123 General Appearance: WD/WN, no apparent distress, alert, alert oriented x3 Mental Status Exam - Thought P: goal-directed Mental Status Exam - Suicidal: no plan Assessment/Plan Problem List: (1) Anxiety ICD Codes: F41.9 - Anxiety disorder, unspecified SNOMED: [id number] Assessment/Plan: triston gonzalez provided ro/Wan Montejo MD Aug 24, 2019 23:27
[2019-08-25] VITALS: BP 140/76
[2019-08-25] MEDS: Ipratropium Bromide Inhaler INH SCH ×4 (00:25→20:30)
[2019-08-25 04:00] VITALS: BP 144/76
[2019-08-25] MEDS: Heparin 5000 units/ml inj SUBQ SCH ×3 (06:00→22:00)
[2019-08-25 08:00] VITALS: BP 153/74
[2019-08-25] MEDS: Flovent 110mcg Inhaler - 12gm INH SCH (09:01)
[2019-08-25] MEDS: Magnesium Oxide 400mg tab ORAL SCH (09:25)
[2019-08-25] MEDS: Lyrica 75mg cap ORAL SCH ×2 (09:25→17:46)
[2019-08-25] MEDS: Miralax 17gm pkt ORAL SCH (09:26)
[2019-08-25] MEDS: Vancomycin 500mg/D5W 110ml IVPB SCH ×4 (09:26→22:43)
[2019-08-25] MEDS: Ascorbic Acid 500mg tab ORAL SCH (09:28)
[2019-08-25] MEDS: clonazePAM 0.5mg tab ORAL SCH ×2 (09:28→17:46)
[2019-08-25] MEDS: Lisinopril 20mg tab ORAL SCH (09:28)
[2019-08-25] MEDS: Aspirin Baby 81mg ORAL SCH (09:28)
[2019-08-25] MEDS: Calcium Carbonate 500mg w/Vit D 200iu tab ORAL SCH (09:29)
[2019-08-25] MEDS: Zinc Sulfate 220mg cap ORAL SCH (09:29)
[2019-08-25] MEDS: Docusate 100mg cap ORAL SCH ×2 (09:29→20:41)
[2019-08-25] MEDS: Dronabinol 2.5mg Cap ORAL SCH ×2 (09:29→17:46)
--- NOTE | 2019-08-25 09:31 | Nephrology Progress Note ---
Assessment/Plan Plan #Hyponatremia - likely hypovolumic - r/o SIADH in the setting of pulmonary infection- improving #Acute on chronic hypoxic resp failure #Acute bronchitis #Rule out COVID-19 #COPD #HTN #Chronic diastolic CHF #Depression #GERD #Chronic right hydronephrosis #Left hemorrhagic renal cyst #Nephrolithiasis #Hematuria #hypokalemia - repleted - replete K - monitor BMP - check free T4-> WNL - increase lisinopril to 40 daily - continue MTP 25 BID, - continue amlodipine 10 qdaily - continue antibiotics per ID - breathing treatment. - ID and Pulm eval - Continue Lexapro- - Continue qhs Mirtazapine - - Continue pregabalin 75 mg BID - Subjective ROS Limited/Unobtainable: No Subjective sodium stable K low - repleted Breathing stable BP elevated will increase lisinpril Objective Objective Last 24 Hour Vital Signs Date Time Temp Pulse Resp B/P (MAP) Pulse Ox O2 Delivery O2 Flow Rate FiO2 08/25/19 09:29 96 153/74 08/25/19 09:28 96 153/74 08/25/19 09:28 153/74 08/25/19 07:50 87 20 95 Nasal Cannula 2.0 28 08/25/19 07:50 95 Nasal Cannula 2.0 28 08/25/19 07:00 87 20 95 Nasal Cannula 2.0 28 08/25/19 04:00 87 08/25/19 04:00 97.3 82 20 144/76 (98) 95 08/25/19 00:25 89 20 96 Nasal Cannula 2.0 28 08/25/19 00:25 88 20 96 Nasal Cannula 2.0 28 08/25/19 00:00 87 08/25/19 00:00 97.1 80 19 140/76 (97) 94 08/24/19 21:42 104 150/81 08/24/19 21:00 Nasal Cannula 2.0 08/24/19 20:15 82 20 96 Nasal Cannula 2.0 28 08/24/19 20:14 78 20 96 Nasal Cannula 2.0 28 08/24/19 20:14 96 Nasal Cannula 2.0 28 08/24/19 20:00 97.0 104 19 150/81 (104) 91 08/24/19 20:00 100 08/24/19 17:37 97.3 08/24/19 16:00 97 08/24/19 16:00 97.3 68 19 110/65 (80) 96 08/24/19 12:08 Nasal Cannula 2.0 28 08/24/19 12:08 Nasal Cannula 2.0 28 08/24/19 12:00 98.2 67 18 127/68 (87) 98 08/24/19 12:00 82 Intake and Output 08/24/19 08/25/19 19:00 07:00 Intake Total 450 ml Balance 450 ml Intake Oral 450 ml # Voids 3 Laboratory Tests 08/24/19 21:14: Vancomycin Level Trough 3.1L Height (Feet): 5 Height (Inches): 0.00 Weight (Pounds): 123 Salma Ibanez M.D. Aug 25, 2019 09:31
[2019-08-25] MEDS: Flonase Nasal Inhaler 16gm NASAL SCH (10:52)
[2019-08-25 11:33] LABS: ANION GAP 7 mmol/L (5-15); BLOOD UREA NITROGEN 23 mg/dL (7-18); CALCIUM 9.9 MG/DL (8.5-10.1); CARBON DIOXIDE 32 MMOL/L (21-32); CHLORIDE 100 MMOL/L (98-107); CREATININE 0.8 MG/DL (0.55-1.30); POTASSIUM 3.1 MMOL/L (3.5-5.1); SODIUM 139 MMOL/L (136-145)
[2019-08-25 12:00] VITALS: BP 142/84
--- NOTE | 2019-08-25 12:30 | Pulmonology Progress Note ---
Assessment/Plan Assessment/Plan ASSESSMENT: The patient is a 78-year-old female with a history of COPD, diastolic dysfunction, CHF, breast cancer, anemia, admitted with COVID 19 PNA PROBLEM LIST: 1. COVID19 PNA 2. Acute hypoxemic respiratory failure. 3. COPD. 4. CHF with diastolic dysfunction. 5. History of mucus plugging. 6. History of breast cancer. 7. Anemia. 8. Hyponatremia. 9. Dementia. 10. 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 11. Dysphagia. TREATMENT PLAN: 1. Optimize pulmonary hygiene/mobilize as tolerated. 2. Titrate down FiO2 to keep saturations greater than 90%. 3. Skizt-pov-shcdt and p.r.n. albuterol and Atrovent metered-dose inhalers via spacer. 4. Completed Plaquenil (D5/5) 5. D/C Pred 40 (D4) 6. ABx: Vanco/Zosyn per ID, completed 5 days of Azithro 7. Monitor volumes and renal function. 8. DVT prophylaxis, heparin subcu. 9. Continue Singulair. 10. Continue fluticasone inhaler b.i.d. 11. Continue Tessalon t.i.d. p.r.n. 12. Continue Mucinex and p.r.n. Robitussin. D/W patient D/W RN Subjective Allergies: Coded Allergies: [place] (Unverified Allergy, Mild, upset stomach, 02/10/19) [place] (Unverified Allergy, Mild, upset stomach, 02/10/19) TETRACYCLINE (Unverified Allergy, Unknown, 07/24/14) Subjective NAEO AFVSS on 2L + cough + SOB no FC no CP Objective Last 24 Hour Vital Signs Date Time Temp Pulse Resp B/P (MAP) Pulse Ox O2 Delivery O2 Flow Rate FiO2 08/25/19 10:52 97.3 08/25/19 09:29 96 153/74 08/25/19 09:28 96 153/74 08/25/19 09:28 153/74 08/25/19 09:01 Nasal Cannula 2.0 08/25/19 08:00 97.3 96 22 153/74 (100) 97 08/25/19 08:00 79 08/25/19 07:50 87 20 95 Nasal Cannula 2.0 28 08/25/19 07:50 95 Nasal Cannula 2.0 28 08/25/19 07:00 87 20 95 Nasal Cannula 2.0 28 08/25/19 04:00 87 08/25/19 04:00 97.3 82 20 144/76 (98) 95 08/25/19 00:25 89 20 96 Nasal Cannula 2.0 28 08/25/19 00:25 88 20 96 Nasal Cannula 2.0 28 08/25/19 00:00 87 08/25/19 00:00 97.1 80 19 140/76 (97) 94 08/24/19 21:42 104 150/81 08/24/19 21:00 Nasal Cannula 2.0 08/24/19 20:15 82 20 96 Nasal Cannula 2.0 28 08/24/19 20:14 78 20 96 Nasal Cannula 2.0 28 08/24/19 20:14 96 Nasal Cannula 2.0 28 08/24/19 20:00 97.0 104 19 150/81 (104) 91 08/24/19 20:00 100 08/24/19 16:00 97 08/24/19 16:00 97.3 68 19 110/65 (80) 96 Intake and Output 08/24/19 08/25/19 19:00 07:00 Intake Total 450 ml Balance 450 ml Intake Oral 450 ml # Voids 3 Objective Deferred 2/2 COVID isolation, PPE requirements, no distress, not coughing, less confused, awake and alert Laboratory Tests 08/24/19 21:14: Vancomycin Level Trough 3.1L 08/25/19 10:50: Sodium Level 139, Potassium Level 3.1L, Chloride Level 100, Carbon Dioxide Level 32, Anion Gap 7, Blood Urea Nitrogen 23H, Creatinine 0.8, Estimat Glomerular Filtration Rate > 60, Glucose Level 99, Calcium Level 9.9 Current Medications Medications (Trade) Dose Ordered Sig/Wilner Route PRN Reason Start Time Stop Time Status Last Admin Dose Admin Acetaminophen (Tylenol) 650 mg Q4H PRN ORAL Mild Pain (Pain Scale 1-3) 08/19/19 01:30 09/18/19 01:29 08/23/19 06:33 Al Hydroxide/Mg Hydroxide (Mylanta II) 20 ml Q4H PRN ORAL INDIGESTION 08/19/19 01:30 09/18/19 01:29 08/22/19 06:39 Albuterol Sulfate (Proventil MDI) 2 puff Q6HRT PRN INH Shortness of Breath 08/19/19 03:15 11/17/19 03:14 08/25/19 05:47 Amlodipine Besylate (Norvasc) 10 mg DAILY ORAL 08/19/19 09:00 09/18/19 08:59 08/25/19 09:29 Ascorbic Acid (Vitamin C) 500 mg DAILY ORAL 08/19/19 09:00 09/18/19 08:59 08/25/19 09:28 Aspirin (ASA) 81 mg DAILY ORAL 08/19/19 09:00 10/03/19 08:59 08/25/19 09:28 Atorvastatin Calcium (Lipitor) 40 mg BEDTIME ORAL 08/19/19 21:00 11/17/19 20:59 08/24/19 21:41 Benzonatate (Tessalon Perles) 100 mg TIDPRN PRN ORAL cough 08/18/19 21:15 09/17/19 21:14 08/23/19 06:33 Bisacodyl (Dulcolax) 10 mg DAILY PRN RECTAL Constipation 08/19/19 01:30 11/17/19 01:29 Calcium/Vitamin D (OsCal D) 1 tab DAILY ORAL 08/19/19 09:00 11/17/19 08:59 08/25/19 09:29 Clonazepam (KlonoPIN) 0.5 mg BID ORAL 08/19/19 09:00 08/26/19 08:59 08/25/19 09:28 Dextrose (Dextrose 50%) 25 ml Q30M PRN IV Hypoglycemia 08/18/19 21:00 11/16/19 20:59 Dextrose (Dextrose 50%) 50 ml Q30M PRN IV Hypoglycemia 08/18/19 21:00 11/16/19 20:59 Docusate Sodium (Colace) 100 mg EVERY 12 HOURS ORAL 08/18/19 21:00 09/17/19 20:59 08/25/19 09:29 Dronabinol (Marinol) 2.5 mg BID ORAL 08/19/19 09:00 11/17/19 08:59 08/25/19 09:29 Ferrous Sulfate (Feosol) 325 mg DAILY ORAL 08/19/19 09:00 11/17/19 08:59 08/25/19 09:26 Fluticasone Propionate (Flonase) 1 spray DAILY NASAL 08/19/19 09:00 09/18/19 08:59 08/25/19 10:52 Fluticasone Propionate (Flovent 110 mcg) 2 puff DAILY INH 08/19/19 09:00 09/18/19 08:59 08/25/19 09:01 Heparin Sodium (Porcine) (Heparin 5000 units/ml) 5,000 units EVERY 8 HOURS SUBQ 08/19/19 00:00 10/03/19 00:00 08/23/19 14:08 Hydralazine HCl (Apresoline) 10 mg Q6H PRN ORAL For High Blood Pressure 08/19/19 01:30 11/17/19 01:29 Ipratropium [place] (Atrovent Inh) 1 puffs Q6HRT INH 08/19/19 07:00 09/18/19 06:59 08/25/19 07:50 Lactulose (Cephulac) 20 gm DAILY PRN ORAL Constipation 08/19/19 01:30 09/18/19 01:29 Lisinopril (PriniviL) 20 mg DAILY ORAL 08/19/19 09:00 09/18/19 08:59 08/25/19 09:28 Magnesium Oxide (Mag-Ox 400mg) 200 mg DAILY ORAL 08/19/19 09:00 09/18/19 08:59 08/25/19 09:25 Methocarbamol (Robaxin) 500 mg Q6H PRN ORAL MUSCLE SPASM 08/19/19 01:30 09/18/19 01:29 Metoprolol Tartrate (Lopressor) 25 mg Q12HR ORAL 08/19/19 09:00 11/17/19 08:59 08/25/19 09:28 Mirtazapine (Remeron) 15 mg BEDTIME ORAL 08/23/19 21:00 11/21/19 20:59 08/24/19 21:41 Montelukast Sodium (Singulair) 10 mg QPM ORAL 08/19/19 16:30 11/17/19 16:29 08/24/19 17:06 Multivitamins (Multivitamins) 1 tab DAILY ORAL 08/19/19 09:00 09/18/19 08:59 08/25/19 09:29 Ondansetron HCl (Zofran) 4 mg Q6H PRN ORAL Nausea & Vomiting 08/19/19 01:30 09/18/19 01:29 08/24/19 06:20 Oxycodone HCl (Roxicodone) 5 mg Q8H PRN ORAL Severe Pain (Pain Scale 7-10) 08/23/19 19:00 08/30/19 18:59 08/24/19 17:06 Pantoprazole (Protonix) 40 mg DAILY ORAL 08/19/19 09:00 09/18/19 08:59 08/25/19 09:26 Piperacillin Sod/ Tazobactam Sod 3.375 gm/Dextrose 100 ml @ 25 mls/hr EVERY 8 HOURS IVPB 08/21/19 22:00 08/27/19 21:59 08/25/19 06:09 Polyethylene Glycol (Miralax) 17 gm DAILY ORAL 08/19/19 09:00 09/18/19 08:59 08/25/19 09:26 Polyethylene Glycol (Miralax) 17 gm DAILYPRN PRN ORAL Constipation 08/18/19 21:00 09/17/19 20:59 Prednisone (predniSONE) 40 mg DAILY ORAL 08/22/19 09:00 09/21/19 08:59 08/25/19 09:28 Pregabalin (Lyrica) 75 mg TWICE A DAY ORAL 08/19/19 09:00 10/03/19 08:59 08/25/19 09:25 Sennosides (Senokot) 8.6 mg QHS ORAL 08/19/19 21:00 09/18/19 20:59 08/22/19 21:05 Vancomycin HCl (Vanco rx to dose) 1 ea DAILY PRN MISC Per rx protocol 08/21/19 19:30 09/20/19 19:29 Vancomycin HCl 500 mg/Dextrose 110 ml @ 110 mls/hr Q12HR@1000,2200 IVPB 08/24/19 22:00 08/29/19 21:59 08/25/19 09:26 Zinc Sulfate (Zinc Sulfate) 220 mg DAILY ORAL 08/19/19 09:00 11/17/19 08:59 08/25/19 09:29 Rafael Lerma MD Aug 25, 2019 12:30
--- NOTE | 2019-08-25 13:03 | General Progress Note ---
Assessment/Plan Assessment/Plan: 78 year old woman SNF resident with chronic resp failure due to COPD, HTN, chronic dCHF, chronic pain, depression, anxiety, chronic right hydronephrosis who presented from SNF with dyspnea, cough body aches, COVID-19 positive #Acute on chronic hypoxic resp failure, 2L O2 dependant #Acute bronchitis #HCAP #COVID-19 POSITIVE #COPD -cont. inpatient medical care -Inhaled bronchodilators prn -Continue supplemental oxygen -COVID-19 positive -Will defer systemic steroid use to Pulm -abx per ID: vanc/zosyn day #09/14, s/p hydroxychloroquine #09/12, s/p azithro #09/12 -ID and Pulm consulted, recs appreciated -awaiting repeat COVID x2, will need two negative tests for safe d/c back to SNF -afrin x1 #Hyponatremia - resolved #Hypokalemia -replaced, ctm, replace PRN -likely hypovolumic -pt refused PO potassium -Nephro following, recs appreciated #HTN #Chronic diastolic CHF -Cont outpatient meds lisinopril 20 daily, MTP 25 BID, amlodipine 10 q daily #Depression #Chronic pain #Anxiety disorder #Osteoarthritis -Continue qhs Mirtazapine. -Continue pregabalin 75 mg BID -Continue home Dronabinol 2.5 mg BID -Continue Clonazepam 0.5 mg BID -Continue Oxycodone 5 mg q12h prn -Psych consulted - recs appreciated #GERD -cont. PPI #Chronic right hydronephrosis #Left hemorrhagic renal cyst #Nephrolithiasis #Hematuria Time spent on encounter: 30 mins, 20 mins spent on pt counseling w/POC, and coordination of care w/RN. Time of note doesn't reflect time of encounter. Subjective Allergies: Coded Allergies: [place] (Unverified Allergy, Mild, upset stomach, 02/10/19) TOMATO (Unverified Allergy, Mild, upset stomach, 02/10/19) TETRACYCLINE (Unverified Allergy, Unknown, 07/24/14) Subjective Follow-up for acute on chronic hypoxic respiratory failure. COVID Positive. Pt denies any SOB, notes nasal congestion. Objective Last 24 Hour Vital Signs Date Time Temp Pulse Resp B/P (MAP) Pulse Ox O2 Delivery O2 Flow Rate FiO2 08/25/19 12:00 98 08/25/19 10:52 97.3 08/25/19 09:29 96 153/74 08/25/19 09:28 96 153/74 08/25/19 09:28 153/74 08/25/19 09:01 Nasal Cannula 2.0 08/25/19 08:00 97.3 96 22 153/74 (100) 97 08/25/19 08:00 79 08/25/19 07:50 87 20 95 Nasal Cannula 2.0 28 08/25/19 07:50 95 Nasal Cannula 2.0 28 08/25/19 07:00 87 20 95 Nasal Cannula 2.0 28 08/25/19 04:00 87 08/25/19 04:00 97.3 82 20 144/76 (98) 95 08/25/19 00:25 89 20 96 Nasal Cannula 2.0 28 08/25/19 00:25 88 20 96 Nasal Cannula 2.0 28 08/25/19 00:00 87 08/25/19 00:00 97.1 80 19 140/76 (97) 94 08/24/19 21:42 104 150/81 08/24/19 21:00 Nasal Cannula 2.0 08/24/19 20:15 82 20 96 Nasal Cannula 2.0 28 08/24/19 20:14 78 20 96 Nasal Cannula 2.0 28 08/24/19 20:14 96 Nasal Cannula 2.0 28 08/24/19 20:00 97.0 104 19 150/81 (104) 91 08/24/19 20:00 100 08/24/19 16:00 97 08/24/19 16:00 97.3 68 19 110/65 (80) 96 Intake and Output 08/24/19 08/25/19 19:00 07:00 Intake Total 450 ml Balance 450 ml Intake Oral 450 ml # Voids 3 Laboratory Tests 08/24/19 21:14: Vancomycin Level Trough 3.1L 08/25/19 10:50: Sodium Level 139, Potassium Level 3.1L, Chloride Level 100, Carbon Dioxide Level 32, Anion Gap 7, Blood Urea Nitrogen 23H, Creatinine 0.8, Estimat Glomerular Filtration Rate > 60, Glucose Level 99, Calcium Level 9.9 Height (Feet): 5 Height (Inches): 0.00 Weight (Pounds): 123 Objective General Appearance: Anxious otherwise NAD, on 2L NC HEENT: atraumatic, anicteric Neck: normal alignment, supple Respiratory/Chest: CTAB, no respiratory distress, no accessory muscle use Cardiovascular/Chest: normal rate, regular rhythm Abdomen: non tender, soft, +BS Ext: no edema Morgan Lutz M.D. Aug 25, 2019 13:03
[2019-08-25] MEDS ORDERED: Oxymetazoline 0.05% Na Spray 30ml NASAL SCH (14:00)
[2019-08-25] MEDS: Benzonatate 100mg Perles ORAL PRN (15:06)
[2019-08-25] MEDS: Lactulose 20gm/30ml UDC ORAL PRN (15:07)
[2019-08-25 16:00] VITALS: BP 151/84
[2019-08-25] MEDS: Montelukast 10mg tablet ORAL SCH (17:47)
--- NOTE | 2019-08-25 19:43 | Infectious Diseases Prog Note ---
Assessment/Plan Assessment/Plan ASSESSMENT AND PLAN: 1. covid-19 virus infection with pna, ? cap, ? risk for aspiration/hcap pna, hypoxia - s/p hydroxychloroquine - zosyn and vancomycin - day # 5/ - s/p azithromycin - monitor labs and chest x-ray - monitor respiratory status closely - telemetry 2. pulmonary mgt noted 3. The patient has anemia. 4. Congestive heart failure. 5. Hypertension. 6. Blood pressure treatment per primary care team. 7. Leukopenia consistent with viral syndrome. 8. History of urinary tract infection. We will check urine C and S. 9. Anxiety and chronic pain. 10. Chronic obstructive pulmonary disease. 11. Allergies to oranges, tetracycline, tomatoes. 12. Social history is negative. 13. Family history is noncontributory. 14. MAR was noted. 15. Case discussed with RN. 16. Skin care protocol. 17. The patient comes from a longterm facility. Subjective Constitutional: Denies: fever HEENT: Denies: congestion Respiratory: Denies: shortness of breath Cardiovascular: Denies: chest pain Gastrointestinal/Abdominal: Denies: nausea, vomiting, diarrhea Genitourinary: Reports: other - no shi Neurologic: Denies: headache Psychiatric: Denies: depression Skin: Denies: rash Hematologic: Denies: bleeding Musculoskeletal: Denies: pain Allergies: Coded Allergies: [place] (Unverified Allergy, Mild, upset stomach, 02/10/19) T[place]ATO (Unverified Allergy, Mild, upset stomach, 02/10/19) TETRACYCLINE (Unverified Allergy, Unknown, 07/24/14) Objective Vital Signs Last 24 Hour Vital Signs Date Time Temp Pulse Resp B/P (MAP) Pulse Ox O2 Delivery O2 Flow Rate FiO2 08/25/19 18:25 98.6 08/25/19 16:00 98.6 87 20 151/84 (106) 96 08/25/19 15:52 81 08/25/19 13:25 85 20 95 Nasal Cannula 2.0 28 08/25/19 13:25 85 20 95 Nasal Cannula 2.0 28 08/25/19 12:00 98.7 89 22 142/84 (103) 97 08/25/19 12:00 98 08/25/19 09:29 96 153/74 08/25/19 09:28 96 153/74 08/25/19 09:28 153/74 08/25/19 09:01 Nasal Cannula 2.0 08/25/19 08:00 97.3 96 22 153/74 (100) 97 08/25/19 08:00 79 08/25/19 07:50 87 20 95 Nasal Cannula 2.0 28 08/25/19 07:50 95 Nasal Cannula 2.0 28 08/25/19 07:00 87 20 95 Nasal Cannula 2.0 28 08/25/19 04:00 87 08/25/19 04:00 97.3 82 20 144/76 (98) 95 08/25/19 00:25 89 20 96 Nasal Cannula 2.0 28 08/25/19 00:25 88 20 96 Nasal Cannula 2.0 28 08/25/19 00:00 87 08/25/19 00:00 97.1 80 19 140/76 (97) 94 08/24/19 21:42 104 150/81 08/24/19 21:00 Nasal Cannula 2.0 08/24/19 20:15 82 20 96 Nasal Cannula 2.0 28 08/24/19 20:14 78 20 96 Nasal Cannula 2.0 28 08/24/19 20:14 96 Nasal Cannula 2.0 28 08/24/19 20:00 97.0 104 19 150/81 (104) 91 08/24/19 20:00 100 Height (Feet): 5 Height (Inches): 0.00 Weight (Pounds): 123 General Appearance: no acute distress HEENT: normocephalic, atraumatic, anicteric, mucous membranes moist Respiratory/Chest: lungs clear, normal breath sounds, no respiratory distress, no accessory muscle use Cardiovascular: normal rate, regular rhythm, no gallop/murmur, no JVD Abdomen: normal bowel sounds, soft, non tender, no organomegaly, non distended Genitourinary: other - no shi Extremities: no cyanosis Skin: no rash Neurologic/Psychiatric: dietary assistant II-XII grossly normal, alert, responsive Lymphatic: no neck adenopathy Musculoskeletal: no effusion Objective 08/18/13 - chest x-ray Procedure: XRAY Chest 1v Indication: Shortness of breath Technique: One view of the chest Comparison: 06/11/2019 Findings: The heart is enlarged. There is bilateral interstitial congestion. There is also some patchy airspace disease in the perihilar regions. There is pleural thickening versus fluid in the left inferolateral hemithorax. Surgical clips are seen adjacent to the right pulmonary hilum. Numerous surgical clips are seen in the right axilla. Findings are similar to the prior exam Impression: Findings likely represent congestive heart failure with interstitial edema, patchy airspace edema, and a left pleural effusion. However, similarity to the prior exam raises possibility that there is also a chronic component. Chest x-ray - 08/23/19 - Procedure: XRAY Chest 1v Indication: Shortness of breath Technique: One view of the chest Comparison: 08/18/2019 Findings: There is suggestion of increased hazy opacity at the right lung base, may reflect increasing infiltrate and/or pleural fluid. Left basilar infiltrate and pleural fluid appear unchanged. The heart is borderline enlarged. Surgical clips are again demonstrated in the right paratracheal region and also in the right axilla. Impression: Increasing right basilar hazy infiltrate and/or pleural fluid are in stable left basilar pleural and parenchymal disease, over 5 days Microbiology Date/Time Source Procedure Growth Status 08/18/19 19:00 Blood Blood Culture - Final NO GROWTH AFTER 5 DAYS Complete 08/18/19 19:00 Nasal Nares - Final Complete 08/18/19 19:00 Nasal Nares - Final Complete Microbiology Date/Time Source Procedure Growth Status 08/18/19 19:00 Blood Blood Culture - Final NO GROWTH AFTER 5 DAYS Complete 08/18/19 19:00 Nasal Nares - Final Complete 08/18/19 19:00 Nasal Nares - Final Complete Labs Test 08/23/19 08:40 08/24/19 08:15 08/24/19 21:14 08/25/19 10:50 White Blood Count 4.1 K/UL (4.8-10.8) 4.8 K/UL (4.8-10.8) Red Blood Count 3.84 M/UL (4.20-5.40) 3.65 M/UL (4.20-5.40) Hemoglobin 11.6 G/DL (12.0-16.0) 11.1 G/DL (12.0-16.0) Hematocrit 33.8 % (37.0-47.0) 32.3 % (37.0-47.0) Mean Corpuscular Volume 88 FL (80-99) 89 FL (80-99) Mean Corpuscular Hemoglobin 30.3 PG (27.0-31.0) 30.5 PG (27.0-31.0) Mean Corpuscular Hemoglobin Concent 34.3 G/DL (32.0-36.0) 34.4 G/DL (32.0-36.0) Red Cell Distribution Width 11.5 % (11.6-14.8) 11.4 % (11.6-14.8) Platelet Count 244 K/UL (150-450) 308 K/UL (150-450) Mean Platelet Volume 6.6 FL (6.5-10.1) 6.5 FL (6.5-10.1) Neutrophils (%) (Auto) 53.3 % (45.0-75.0) 48.8 % (45.0-75.0) Lymphocytes (%) (Auto) 31.0 % (20.0-45.0) 35.6 % (20.0-45.0) Monocytes (%) (Auto) 13.6 % (1.0-10.0) 13.0 % (1.0-10.0) Eosinophils (%) (Auto) 0.3 % (0.0-3.0) 0.9 % (0.0-3.0) Basophils (%) (Auto) 1.8 % (0.0-2.0) 1.8 % (0.0-2.0) Sodium Level 140 MMOL/L (136-145) 141 MMOL/L (136-145) 139 MMOL/L (136-145) Potassium Level 3.4 MMOL/L (3.5-5.1) 3.0 MMOL/L (3.5-5.1) 3.1 MMOL/L (3.5-5.1) Chloride Level 101 MMOL/L (98-107) 101 MMOL/L (98-107) 100 MMOL/L (98-107) Carbon Dioxide Level 29 MMOL/L (21-32) 31 MMOL/L (21-32) 32 MMOL/L (21-32) Anion Gap 10 mmol/L (5-15) 10 mmol/L (5-15) 7 mmol/L (5-15) Blood Urea Nitrogen 9 mg/dL (7-18) 15 mg/dL (7-18) 23 mg/dL (7-18) Creatinine 0.6 MG/DL (0.55-1.30) 0.7 MG/DL (0.55-1.30) 0.8 MG/DL (0.55-1.30) Estimat Glomerular Filtration Rate > 60 mL/min (>60) > 60 mL/min (>60) > 60 mL/min (>60) Glucose Level 127 MG/DL (74-106) 112 MG/DL (74-106) 99 MG/DL (74-106) Calcium Level 9.6 MG/DL (8.5-10.1) 9.7 MG/DL (8.5-10.1) 9.9 MG/DL (8.5-10.1) Vancomycin Level Trough 3.1 ug/mL (5.0-12.0) Laboratory Tests Test 08/24/19 21:14 08/25/19 10:50 Vancomycin Level Trough 3.1 ug/mL (5.0-12.0) L Sodium Level 139 MMOL/L (136-145) Potassium Level 3.1 MMOL/L (3.5-5.1) L Chloride Level 100 MMOL/L (98-107) Carbon Dioxide Level 32 MMOL/L (21-32) Anion Gap 7 mmol/L (5-15) Blood Urea Nitrogen 23 mg/dL (7-18) H Creatinine 0.8 MG/DL (0.55-1.30) Estimat Glomerular Filtration Rate > 60 mL/min (>60) Glucose Level 99 MG/DL (74-106) Calcium Level 9.9 MG/DL (8.5-10.1) Current Medications Medications (Trade) Dose Ordered Sig/Wilner Route PRN Reason Start Time Stop Time Status Last Admin Dose Admin Acetaminophen (Tylenol) 650 mg Q4H PRN ORAL Mild Pain (Pain Scale 1-3) 08/19/19 01:30 09/18/19 01:29 08/23/19 06:33 Al Hydroxide/Mg Hydroxide (Mylanta II) 20 ml Q4H PRN ORAL INDIGESTION 08/19/19 01:30 09/18/19 01:29 08/22/19 06:39 Albuterol Sulfate (Proventil MDI) 2 puff Q6HRT PRN INH Shortness of Breath 08/19/19 03:15 11/17/19 03:14 08/25/19 05:47 Amlodipine Besylate (Norvasc) 10 mg DAILY ORAL 08/19/19 09:00 09/18/19 08:59 08/25/19 09:29 Ascorbic Acid (Vitamin C) 500 mg DAILY ORAL 08/19/19 09:00 09/18/19 08:59 08/25/19 09:28 Aspirin (ASA) 81 mg DAILY ORAL 08/19/19 09:00 10/03/19 08:59 08/25/19 09:28 Atorvastatin Calcium (Lipitor) 40 mg BEDTIME ORAL 08/19/19 21:00 11/17/19 20:59 08/24/19 21:41 Benzonatate (Tessalon Perles) 100 mg TIDPRN PRN ORAL cough 08/18/19 21:15 09/17/19 21:14 08/25/19 15:06 Bisacodyl (Dulcolax) 10 mg DAILY PRN RECTAL Constipation 08/19/19 01:30 11/17/19 01:29 Calcium/Vitamin D (OsCal D) 1 tab DAILY ORAL 08/19/19 09:00 11/17/19 08:59 08/25/19 09:29 Clonazepam (KlonoPIN) 0.5 mg BID ORAL 08/19/19 09:00 08/26/19 08:59 08/25/19 17:46 Dextrose (Dextrose 50%) 25 ml Q30M PRN IV Hypoglycemia 08/18/19 21:00 11/16/19 20:59 Dextrose (Dextrose 50%) 50 ml Q30M PRN IV Hypoglycemia 08/18/19 21:00 11/16/19 20:59 Docusate Sodium (Colace) 100 mg EVERY 12 HOURS ORAL 08/18/19 21:00 09/17/19 20:59 08/25/19 09:29 Dronabinol (Marinol) 2.5 mg BID ORAL 08/19/19 09:00 11/17/19 08:59 08/25/19 17:46 Ferrous Sulfate (Feosol) 325 mg DAILY ORAL 08/19/19 09:00 11/17/19 08:59 08/25/19 09:26 Fluticasone Propionate (Flonase) 1 spray DAILY NASAL 08/19/19 09:00 09/18/19 08:59 08/25/19 10:52 Fluticasone Propionate (Flovent 110 mcg) 2 puff DAILY INH 08/19/19 09:00 09/18/19 08:59 08/25/19 09:01 Heparin Sodium (Porcine) (Heparin 5000 units/ml) 5,000 units EVERY 8 HOURS SUBQ 08/19/19 00:00 10/03/19 00:00 08/23/19 14:08 Hydralazine HCl (Apresoline) 10 mg Q6H PRN ORAL For High Blood Pressure 08/19/19 01:30 11/17/19 01:29 Ipratropium [place] (Atrovent Inh) 1 puffs Q6HRT INH 08/19/19 07:00 09/18/19 06:59 08/25/19 13:25 Lactulose (Cephulac) 20 gm DAILY PRN ORAL Constipation 08/19/19 01:30 09/18/19 01:29 08/25/19 15:07 Lisinopril (PriniviL) 20 mg DAILY ORAL 08/19/19 09:00 09/18/19 08:59 08/25/19 09:28 Magnesium Oxide (Mag-Ox 400mg) 200 mg DAILY ORAL 08/19/19 09:00 09/18/19 08:59 08/25/19 09:25 Methocarbamol (Robaxin) 500 mg Q6H PRN ORAL MUSCLE SPASM 08/19/19 01:30 09/18/19 01:29 08/25/19 15:07 Metoprolol Tartrate (Lopressor) 25 mg Q12HR ORAL 08/19/19 09:00 11/17/19 08:59 08/25/19 09:28 Mirtazapine (Remeron) 15 mg BEDTIME ORAL 08/23/19 21:00 11/21/19 20:59 08/24/19 21:41 Montelukast Sodium (Singulair) 10 mg QPM ORAL 08/19/19 16:30 11/17/19 16:29 08/25/19 17:47 Multivitamins (Multivitamins) 1 tab DAILY ORAL 08/19/19 09:00 09/18/19 08:59 08/25/19 09:29 Ondansetron HCl (Zofran) 4 mg Q6H PRN ORAL Nausea & Vomiting 08/19/19 01:30 09/18/19 01:29 08/24/19 06:20 Oxycodone HCl (Roxicodone) 5 mg Q8H PRN ORAL Severe Pain (Pain Scale 7-10) 08/23/19 19:00 08/30/19 18:59 08/24/19 17:06 Pantoprazole (Protonix) 40 mg DAILY ORAL 08/19/19 09:00 09/18/19 08:59 08/25/19 09:26 Piperacillin Sod/ Tazobactam Sod 3.375 gm/Dextrose 100 ml @ 25 mls/hr EVERY 8 HOURS IVPB 08/21/19 22:00 08/27/19 21:59 08/25/19 15:06 Polyethylene Glycol (Miralax) 17 gm DAILY ORAL 08/19/19 09:00 09/18/19 08:59 08/25/19 09:26 Polyethylene Glycol (Miralax) 17 gm DAILYPRN PRN ORAL Constipation 08/18/19 21:00 09/17/19 20:59 Pregabalin (Lyrica) 75 mg TWICE A DAY ORAL 08/19/19 09:00 10/03/19 08:59 08/25/19 17:46 Sennosides (Senokot) 8.6 mg QHS ORAL 08/19/19 21:00 09/18/19 20:59 08/22/19 21:05 Vancomycin HCl (Vanco rx to dose) 1 ea DAILY PRN MISC Per rx protocol 08/21/19 19:30 09/20/19 19:29 Vancomycin HCl 500 mg/Dextrose 110 ml @ 110 mls/hr Q12HR@1000,2200 IVPB 08/24/19 22:00 08/29/19 21:59 08/25/19 09:26 Zinc Sulfate (Zinc Sulfate) 220 mg DAILY ORAL 08/19/19 09:00 11/17/19 08:59 08/25/19 09:29 Nyasia Grover MD Aug 25, 2019 19:43
[2019-08-25 20:00] VITALS: BP 141/72
[2019-08-25] MEDS: Sennosides 8.6mg tab ORAL SCH ×2 (20:41→21:00)
[2019-08-25] MEDS: Atorvastatin 20mg tab ORAL SCH (20:41)
--- NOTE | 2019-08-25 22:33 | Neurology Progress Note ---
Interim History Interim History ROS Limited/Unobtainable: No Interim History no new neuro symptoms Objective Physical Exam Last Vital Signs Date Time Temp Pulse Resp B/P (MAP) Pulse Ox O2 Delivery O2 Flow Rate FiO2 08/25/19 21:11 88 141/72 08/25/19 20:34 20 95 Nasal Cannula 2.0 28 08/25/19 20:00 98.1 Laboratory Tests Test 08/25/19 10:50 Sodium Level 139 MMOL/L (136-145) Potassium Level 3.1 MMOL/L (3.5-5.1) L Chloride Level 100 MMOL/L (98-107) Carbon Dioxide Level 32 MMOL/L (21-32) Anion Gap 7 mmol/L (5-15) Blood Urea Nitrogen 23 mg/dL (7-18) H Creatinine 0.8 MG/DL (0.55-1.30) Estimat Glomerular Filtration Rate > 60 mL/min (>60) Glucose Level 99 MG/DL (74-106) Calcium Level 9.9 MG/DL (8.5-10.1) General: well nourished Head: normocophalic Neck: no rigidity Neurologic Exam Mental Status: awake Objective moves all 4 symmetric Impression/Recommendations Problems: (1) Hypokalemia (2) Abdominal pain (3) Therapeutic opioid-induced constipation (OIC) (4) Shortness of breath (5) Diastolic CHF (6) Anemia (7) Anxiety (8) Hypercholesteremia (9) Hyponatremia (10) Hypertension (11) Severe sepsis (12) History of breast cancer (13) Respiratory failure with hypoxia (14) Protein-calorie malnutrition, mild (15) GERD (gastroesophageal reflux disease) (16) Cough (17) Dysphagia (18) SOB (shortness of breath) (19) Pleural effusion (20) Renal failure (21) Allergic rhinitis (22) Constipation (23) Osteoporosis (24) Aspiration pneumonia (25) Tracheobronchitis (26) Collapse of left lung (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 (28) Respiratory failure requiring intubation (29) Limited mobility (30) Acute metabolic encephalopathy (31) Decubitus skin ulcer (32) Leukocytosis (33) Gram-negative bacteremia (34) COPD (chronic obstructive pulmonary disease) (35) Chronic respiratory failure with hypoxia (36) Lumbar radiculopathy (37) Fibromyalgia (38) Cervical spondylosis (39) Diastolic CHF, acute on chronic (40) Lumbar spondylosis (41) Acute and chronic respiratory failure ([id number]) (42) Pneumonia (43) Cervical radiculopathy (44) DDD (degenerative disc disease), cervical (45) DDD (degenerative disc disease), lumbar (46) Troponin level elevated (47) UTI (urinary tract infection) Diagnostic Impression acute encephalopathy and gen weakness likely metabolic in the setting of possible covid and resp faikure myalgias GEn pain Depression COVID rule out atb per primary management of fluids nad hyponatremia pt ot delirium precautions Quentin Giron MD Aug 25, 2019 22:33
[2019-08-25] MEDS: oxyCODONE 5mg IR tab ORAL PRN (22:43)
[2019-08-26] VITALS: BP 154/81
[2019-08-26] MEDS: Ipratropium Bromide Inhaler INH SCH ×4 (00:17→19:25)
[2019-08-26] MEDS: oxyCODONE 5mg IR tab ORAL PRN ×2 (00:33→09:06)
[2019-08-26 04:00] VITALS: BP 147/86
[2019-08-26] MEDS: Heparin 5000 units/ml inj SUBQ SCH ×3 (06:33→22:00)
[2019-08-26 08:00] VITALS: BP 170/89
[2019-08-26] MEDS: Flovent 110mcg Inhaler - 12gm INH SCH ×2 (08:00→19:25)
--- NOTE | 2019-08-26 08:39 | General Progress Note ---
Assessment/Plan Assessment/Plan: 78 year old woman SNF resident with chronic resp failure due to COPD, HTN, chronic dCHF, chronic pain, depression, anxiety, chronic right hydronephrosis who presented from SNF with dyspnea, cough body aches, COVID-19 positive #Acute on chronic hypoxic resp failure, 2L O2 dependant #Acute bronchitis #HCAP #COVID-19 POSITIVE #COPD -cont. inpatient medical care -Inhaled bronchodilators prn -Continue supplemental oxygen -COVID-19 positive -Will defer systemic steroid use to Pulm -abx per ID: vanc/zosyn day #10/15, s/p hydroxychloroquine #09/12, s/p azithro #09/12 -ID and Pulm consulted, recs appreciated -08/23 repeat COVID w/indeterminate abnormal -will order another repeat COVID -will need two negative tests for safe d/c back to SNF #Hyponatremia - resolved #Hypokalemia -replaced, ctm, replace PRN -likely hypovolumic -pt refused PO potassium -instructed pt to take supplement, pt expressed understanding and will comply -Nephro following, recs appreciated #HTN #Chronic diastolic CHF -Cont outpatient meds lisinopril 20 daily, MTP 25 BID, amlodipine 10 q daily #Depression #Chronic pain #Anxiety disorder #Osteoarthritis -Continue qhs Mirtazapine. -Continue pregabalin 75 mg BID -Continue home Dronabinol 2.5 mg BID -Continue Clonazepam 0.5 mg BID -Continue Oxycodone 5 mg q12h prn -Psych consulted - recs appreciated #GERD -cont. PPI #Chronic right hydronephrosis #Left hemorrhagic renal cyst #Nephrolithiasis #Hematuria Time spent on encounter: 28 mins, 17 mins spent on pt counseling regarding POC and dispo planning. Updated RN. Time of note doesn't reflect time of encounter. Subjective Allergies: Coded Allergies: [place] (Unverified Allergy, Mild, upset stomach, 02/10/19) TOMATO (Unverified Allergy, Mild, upset stomach, 02/10/19) TETRACYCLINE (Unverified Allergy, Unknown, 07/24/14) Subjective Follow-up for acute on chronic hypoxic respiratory failure. COVID Positive. First COVID repeat indeterminant result. Denies SOB, states breathing is stable on her chronic 2 L O2. Notes some abd discomfort however is chronic, states miralax helps, last BM yesterday. Objective Last 24 Hour Vital Signs Date Time Temp Pulse Resp B/P (MAP) Pulse Ox O2 Delivery O2 Flow Rate FiO2 08/26/19 08:00 72 20 96 Nasal Cannula 2.0 28 08/26/19 08:00 72 20 96 Nasal Cannula 2.0 28 08/26/19 07:00 95 Nasal Cannula 2.0 28 08/26/19 06:31 97.4 08/26/19 04:00 72 08/26/19 04:00 98.0 74 20 147/86 (106) 96 08/26/19 00:21 86 20 95 Nasal Cannula 2.0 28 08/26/19 00:20 88 20 95 Nasal Cannula 2.0 28 08/26/19 00:00 69 08/26/19 00:00 97.4 85 20 154/81 (105) 94 08/25/19 21:11 88 141/72 08/25/19 21:00 Nasal Cannula 2.0 08/25/19 20:34 88 20 95 Nasal Cannula 2.0 28 08/25/19 20:34 82 20 94 Nasal Cannula 2.0 28 08/25/19 20:33 94 Nasal Cannula 2.0 28 08/25/19 20:00 98.1 89 20 141/72 (95) 93 08/25/19 20:00 90 08/25/19 18:25 98.6 08/25/19 16:00 98.6 87 20 151/84 (106) 96 08/25/19 15:52 81 08/25/19 13:25 85 20 95 Nasal Cannula 2.0 28 08/25/19 13:25 85 20 95 Nasal Cannula 2.0 28 08/25/19 12:00 98.7 89 22 142/84 (103) 97 08/25/19 12:00 98 08/25/19 09:29 96 153/74 08/25/19 09:28 96 153/74 08/25/19 09:28 153/74 08/25/19 09:01 Nasal Cannula 2.0 Intake and Output 08/25/19 08/26/19 19:00 07:00 Intake Total 140 ml 77.5 ml Output Total 1200 ml 1100 ml Balance -1060 ml -1022.5 ml Intake Oral 140 ml IV Total 77.5 ml Output Urine Total 1200 ml 1100 ml # Voids 3 # Bowel Movements 1 Laboratory Tests 08/25/19 10:50: Sodium Level 139, Potassium Level 3.1L, Chloride Level 100, Carbon Dioxide Level 32, Anion Gap 7, Blood Urea Nitrogen 23H, Creatinine 0.8, Estimat Glomerular Filtration Rate > 60, Glucose Level 99, Calcium Level 9.9 Height (Feet): 5 Height (Inches): 0.00 Weight (Pounds): 123 Objective General Appearance: NAD, on 2L NC, appears comfortable laying in bed HEENT: atraumatic, anicteric, EOMi, dry MM Neck: normal alignment, supple Respiratory/Chest: CTAB, no respiratory distress, no accessory muscle use Cardiovascular/Chest: normal rate, regular rhythm Abdomen: non tender, soft, +BS, no guarding/rebound Ext: no edema Morgan Lutz M.D. Aug 26, 2019 08:39
--- NOTE | 2019-08-26 08:44 | Progress Note ---
DATE: 08/26/2019 SUBJECTIVE: Patient is severely anxious. We discussed her medication, well known to this physician. Patient is able to answer the question and is understanding risks and benefits benzodiazepine and pain medications. MENTAL STATUS EXAMINATION: Alert and oriented to time, self, place, and situation. Mood is neutral. Affect is flat. Thought process is linear. Thought content, no suicidal or homicidal ideation. ASSESSMENT: 1. Anxiety disorder. 2. Major depressive disorder. PLAN: 1. Continue Lexapro, mirtazapine. 2. Provide the patient with reality orientation. Wan Stern M.D. DR: Jana JOB#: [id number] CC: BALDEMAR
[2019-08-26] MEDS ORDERED: HydrALAZINE 10mg Tab ORAL PRN (09:00)
[2019-08-26] MEDS: Flonase Nasal Inhaler 16gm NASAL SCH (09:04)
[2019-08-26] MEDS: Zinc Sulfate 220mg cap ORAL SCH (09:06)
[2019-08-26] MEDS: Magnesium Oxide 400mg tab ORAL SCH (09:06)
[2019-08-26] MEDS: Lyrica 75mg cap ORAL SCH ×2 (09:06→17:29)
[2019-08-26] MEDS: Dronabinol 2.5mg Cap ORAL SCH ×2 (09:06→17:30)
[2019-08-26] MEDS: Docusate 100mg cap ORAL SCH ×2 (09:06→20:39)
[2019-08-26] MEDS: Lisinopril 20mg tab ORAL SCH (09:07)
[2019-08-26] MEDS: Miralax 17gm pkt ORAL SCH (09:08)
[2019-08-26] MEDS: Calcium Carbonate 500mg w/Vit D 200iu tab ORAL SCH (09:08)
[2019-08-26] MEDS: Aspirin Baby 81mg ORAL SCH (09:08)
[2019-08-26] MEDS: Ascorbic Acid 500mg tab ORAL SCH (09:08)
--- NOTE | 2019-08-26 09:28 | Diagnostic Imaging Report ---
Indication: Shortness of breath Technique: One view of the chest Comparison: 08/23/2019 Findings: Patient is somewhat rotated to the left. There is a apparent interim leftward shift of the mediastinum. This is probably mostly artifactual due to patient rotation but could indicate a component of developing volume loss. There appears to be increased air bronchograms in the retrocardiac region suggesting increasing infiltrate. There is also suggestion of new or increasing pleural fluid on the left. Hazy opacity at the right lung base may reflect hazy infiltrate or could be an artifact of overlying soft tissues. Evidence of prior mediastinal and right axillary surgery again demonstrated Impression: Suspect increasing left lung consolidation, volume loss, and left-sided pleural fluid Possible hazy right basilar infiltrate, unchanged
[2019-08-26 10:59] LABS: ANION GAP 11 mmol/L (5-15); BLOOD UREA NITROGEN 20 mg/dL (7-18); CALCIUM 9.8 MG/DL (8.5-10.1); CARBON DIOXIDE 27 MMOL/L (21-32); CHLORIDE 98 MMOL/L (98-107); CREATININE 0.6 MG/DL (0.55-1.30); POTASSIUM 5.5 MMOL/L (3.5-5.1); SODIUM 135 MMOL/L (136-145)
[2019-08-26] MEDS: Vancomycin 500mg/D5W 110ml IVPB SCH ×2 (11:19)
[2019-08-26 11:23] LABS: BASOPHILS % (AUTO) 2.3 % (0.0-2.0); HEMATOCRIT 32.9 % (37.0-47.0); HEMOGLOBIN 11.4 G/DL (12.0-16.0); LYMPHOCYTES % (AUTO) 19.8 % (20.0-45.0); MEAN CORPUSCULAR VOLUME 87 FL (80-99); MONOCYTES % (AUTO) 6.4 % (1.0-10.0); NEUTROPHILS % (AUTO) 71.6 % (45.0-75.0); PLATELET COUNT 394 K/UL (150-450); RED BLOOD COUNT 3.76 M/UL (4.20-5.40); RED CELL DISTRIBUTION WIDTH 11.5 % (11.6-14.8); WHITE BLOOD COUNT 8.8 K/UL (4.8-10.8)
[2019-08-26 12:00] VITALS: BP 154/82
--- NOTE | 2019-08-26 12:51 | Nephrology Progress Note ---
Assessment/Plan Plan #Hyponatremia - likely hypovolumic - r/o SIADH in the setting of pulmonary infection- improving #Acute on chronic hypoxic resp failure #Acute bronchitis #Rule out COVID-19 #COPD #HTN #Chronic diastolic CHF #Depression #GERD #Chronic right hydronephrosis #Left hemorrhagic renal cyst #Nephrolithiasis #Hematuria #hypokalemia - repleted - K 5.5 today - repeat BMP today at 1600 - monitor BMP - check free T4-> WNL - lisinopril to 40 daily--> will decrease dose back to 20 if K persistently elevated - continue MTP 25 BID, - continue amlodipine 10 qdaily - continue antibiotics per ID - breathing treatment. - ID and Pulm eval - Continue Lexapro- - Continue qhs Mirtazapine - - Continue pregabalin 75 mg BID - Subjective ROS Limited/Unobtainable: No Subjective sodium stable K 5.5 will repeat BMP today at 1600 Breathing stable Objective Objective Last 24 Hour Vital Signs Date Time Temp Pulse Resp B/P (MAP) Pulse Ox O2 Delivery O2 Flow Rate FiO2 08/26/19 12:16 98.1 08/26/19 12:00 98.1 77 20 154/82 (106) 92 08/26/19 09:08 72 170/89 08/26/19 09:07 170/89 08/26/19 09:07 72 170/89 08/26/19 09:00 Nasal Cannula 2.0 08/26/19 08:00 98.2 79 20 170/89 (116) 92 08/26/19 08:00 72 20 96 Nasal Cannula 2.0 28 08/26/19 08:00 72 20 96 Nasal Cannula 2.0 28 08/26/19 08:00 79 08/26/19 07:00 95 Nasal Cannula 2.0 28 08/26/19 04:00 72 08/26/19 04:00 98.0 74 20 147/86 (106) 96 08/26/19 00:21 86 20 95 Nasal Cannula 2.0 28 08/26/19 00:20 88 20 95 Nasal Cannula 2.0 28 08/26/19 00:00 69 08/26/19 00:00 97.4 85 20 154/81 (105) 94 08/25/19 21:11 88 141/72 08/25/19 21:00 Nasal Cannula 2.0 08/25/19 20:34 88 20 95 Nasal Cannula 2.0 28 08/25/19 20:34 82 20 94 Nasal Cannula 2.0 28 08/25/19 20:33 94 Nasal Cannula 2.0 28 08/25/19 20:00 98.1 89 20 141/72 (95) 93 08/25/19 20:00 90 08/25/19 18:25 98.6 08/25/19 16:00 98.6 87 20 151/84 (106) 96 08/25/19 15:52 81 08/25/19 13:25 85 20 95 Nasal Cannula 2.0 28 08/25/19 13:25 85 20 95 Nasal Cannula 2.0 28 Intake and Output 08/25/19 08/26/19 19:00 07:00 Intake Total 140 ml 77.5 ml Output Total 1200 ml 1100 ml Balance -1060 ml -1022.5 ml Intake Oral 140 ml IV Total 77.5 ml Output Urine Total 1200 ml 1100 ml # Voids 3 # Bowel Movements 1 Laboratory Tests 08/26/19 10:35: White Blood Count 8.8, Red Blood Count 3.76L, Hemoglobin 11.4L, Hematocrit 32.9L , Mean Corpuscular Volume 87, Mean Corpuscular Hemoglobin 30.3, Mean Corpuscular Hemoglobin Concent 34.7, Red Cell Distribution Width 11.5L, Platelet Count 394, Mean Platelet Volume 6.0L, Neutrophils (%) (Auto) 71.6, Lymphocytes (%) (Auto) 19.8L, Monocytes (%) (Auto) 6.4, Eosinophils (%) (Auto) 0.0, Basophils (%) (Auto) 2.3H, Sodium Level 135L, Potassium Level 5.5#H, Chloride Level 98, Carbon Dioxide Level 27, Anion Gap 11, Blood Urea Nitrogen 20H, Creatinine 0.6, Estimat Glomerular Filtration Rate > 60, Glucose Level 119H , Calcium Level 9.8, Vancomycin Level Trough 10.5 Height (Feet): 5 Height (Inches): 0.00 Weight (Pounds): 123 Salma Ibanez M.D. Aug 26, 2019 12:51
--- NOTE | 2019-08-26 13:18 | Pulmonology Progress Note ---
Assessment/Plan Assessment/Plan ASSESSMENT: The patient is a 78-year-old female with a history of COPD, diastolic dysfunction, CHF, breast cancer, anemia, admitted with COVID 19 PNA PROBLEM LIST: 1. COVID19 PNA 2. Acute hypoxemic respiratory failure. 3. COPD. 4. CHF with diastolic dysfunction. 5. History of mucus plugging. 6. History of breast cancer. 7. Anemia. 8. Hyponatremia. 9. Dementia. 10. 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 11. Dysphagia. TREATMENT PLAN: 1. Optimize pulmonary hygiene/mobilize as tolerated. 2. Titrate down FiO2 to keep saturations greater than 90%. 3. [id number] and p.r.n. albuterol and Atrovent metered-dose inhalers via spacer. 4. Completed Plaquenil (D5/5) 5. Off steroids 6. ABx: Vanco/Zosyn per ID, completed 5 days of Azithro 7. Monitor volumes and renal function. 8. DVT prophylaxis, heparin subcu. 9. Continue Singulair. 10. Continue fluticasone inhaler b.i.d. 11. Continue Tessalon t.i.d. p.r.n. 12. Continue Mucinex and p.r.n. Robitussin. D/W patient D/W RN Subjective Allergies: Coded Allergies: [place] (Unverified Allergy, Mild, upset stomach, 02/10/19) TOMATO (Unverified Allergy, Mild, upset stomach, 02/10/19) TETRACYCLINE (Unverified Allergy, Unknown, 07/24/14) Subjective NAEO AFVSS on 2L + cough + SOB no FC no CP CXR worse Objective Last 24 Hour Vital Signs Date Time Temp Pulse Resp B/P (MAP) Pulse Ox O2 Delivery O2 Flow Rate FiO2 08/26/19 12:16 98.1 08/26/19 12:00 98.1 77 20 154/82 (106) 92 08/26/19 09:08 72 170/89 08/26/19 09:07 170/89 08/26/19 09:07 72 170/89 08/26/19 09:00 Nasal Cannula 2.0 08/26/19 08:00 98.2 79 20 170/89 (116) 92 08/26/19 08:00 72 20 96 Nasal Cannula 2.0 28 08/26/19 08:00 72 20 96 Nasal Cannula 2.0 28 08/26/19 08:00 79 08/26/19 07:00 95 Nasal Cannula 2.0 28 08/26/19 04:00 72 08/26/19 04:00 98.0 74 20 147/86 (106) 96 08/26/19 00:21 86 20 95 Nasal Cannula 2.0 28 08/26/19 00:20 88 20 95 Nasal Cannula 2.0 28 08/26/19 00:00 69 08/26/19 00:00 97.4 85 20 154/81 (105) 94 08/25/19 21:11 88 141/72 08/25/19 21:00 Nasal Cannula 2.0 08/25/19 20:34 88 20 95 Nasal Cannula 2.0 28 08/25/19 20:34 82 20 94 Nasal Cannula 2.0 28 08/25/19 20:33 94 Nasal Cannula 2.0 28 08/25/19 20:00 98.1 89 20 141/72 (95) 93 08/25/19 20:00 90 08/25/19 18:25 98.6 08/25/19 16:00 98.6 87 20 151/84 (106) 96 08/25/19 15:52 81 08/25/19 13:25 85 20 95 Nasal Cannula 2.0 28 08/25/19 13:25 85 20 95 Nasal Cannula 2.0 28 Intake and Output 08/25/19 08/26/19 19:00 07:00 Intake Total 140 ml 77.5 ml Output Total 1200 ml 1100 ml Balance -1060 ml -1022.5 ml Intake Oral 140 ml IV Total 77.5 ml Output Urine Total 1200 ml 1100 ml # Voids 3 # Bowel Movements 1 Objective Deferred 2/2 COVID isolation, PPE requirements, no distress, not coughing, less confused, awake and alert Microbiology Date/Time Source Procedure Growth Status 08/24/19 14:30 Nasopharynx Coronavirus COVID-19 PCR ([facility]) - Final Complete Laboratory Tests 08/26/19 10:35: White Blood Count 8.8, Red Blood Count 3.76L, Hemoglobin 11.4L, Hematocrit 32.9L , Mean Corpuscular Volume 87, Mean Corpuscular Hemoglobin 30.3, Mean Corpuscular Hemoglobin Concent 34.7, Red Cell Distribution Width 11.5L, Platelet Count 394, Mean Platelet Volume 6.0L, Neutrophils (%) (Auto) 71.6, Lymphocytes (%) (Auto) 19.8L, Monocytes (%) (Auto) 6.4, Eosinophils (%) (Auto) 0.0, Basophils (%) (Auto) 2.3H, Sodium Level 135L, Potassium Level 5.5#H, Chloride Level 98, Carbon Dioxide Level 27, Anion Gap 11, Blood Urea Nitrogen 20H, Creatinine 0.6, Estimat Glomerular Filtration Rate > 60, Glucose Level 119H , Calcium Level 9.8, Vancomycin Level Trough 10.5 Current Medications Medications (Trade) Dose Ordered Sig/Wilner Route PRN Reason Start Time Stop Time Status Last Admin Dose Admin Acetaminophen (Tylenol) 650 mg Q4H PRN ORAL Mild Pain (Pain Scale 1-3) 08/19/19 01:30 09/18/19 01:29 08/26/19 11:46 Al Hydroxide/Mg Hydroxide (Mylanta II) 20 ml Q4H PRN ORAL INDIGESTION 08/19/19 01:30 09/18/19 01:29 08/22/19 06:39 Albuterol Sulfate (Proventil MDI) 2 puff Q6HRT PRN INH Shortness of Breath 08/19/19 03:15 11/17/19 03:14 08/25/19 05:47 Amlodipine Besylate (Norvasc) 10 mg DAILY ORAL 08/19/19 09:00 09/18/19 08:59 08/26/19 09:07 Ascorbic Acid (Vitamin C) 500 mg DAILY ORAL 08/19/19 09:00 09/18/19 08:59 08/26/19 09:08 Aspirin (ASA) 81 mg DAILY ORAL 08/19/19 09:00 10/03/19 08:59 08/26/19 09:08 Atorvastatin Calcium (Lipitor) 40 mg BEDTIME ORAL 08/19/19 21:00 11/17/19 20:59 08/25/19 20:41 Benzonatate (Tessalon Perles) 100 mg TIDPRN PRN ORAL cough 08/18/19 21:15 09/17/19 21:14 08/25/19 15:06 Bisacodyl (Dulcolax) 10 mg DAILY PRN RECTAL Constipation 08/19/19 01:30 11/17/19 01:29 Calcium/Vitamin D (OsCal D) 1 tab DAILY ORAL 08/19/19 09:00 11/17/19 08:59 08/26/19 09:08 Dextrose (Dextrose 50%) 25 ml Q30M PRN IV Hypoglycemia 08/18/19 21:00 11/16/19 20:59 Dextrose (Dextrose 50%) 50 ml Q30M PRN IV Hypoglycemia 08/18/19 21:00 11/16/19 20:59 Docusate Sodium (Colace) 100 mg EVERY 12 HOURS ORAL 08/18/19 21:00 09/17/19 20:59 08/26/19 09:06 Dronabinol (Marinol) 2.5 mg BID ORAL 08/19/19 09:00 11/17/19 08:59 08/26/19 09:06 Ferrous Sulfate (Feosol) 325 mg DAILY ORAL 08/19/19 09:00 11/17/19 08:59 08/26/19 09:06 Fluticasone Propionate (Flonase) 1 spray DAILY NASAL 08/19/19 09:00 09/18/19 08:59 08/26/19 09:04 Fluticasone Propionate (Flovent 110 mcg) 2 puff DAILY INH 08/19/19 09:00 09/18/19 08:59 08/26/19 08:00 Heparin Sodium (Porcine) (Heparin 5000 units/ml) 5,000 units EVERY 8 HOURS SUBQ 08/19/19 00:00 10/03/19 00:00 08/26/19 06:33 Hydralazine HCl (Apresoline) 10 mg Q6H PRN ORAL For High Blood Pressure 08/19/19 01:30 11/17/19 01:29 Ipratropium [place] (Atrovent Inh) 1 puffs Q6HRT INH 08/19/19 07:00 09/18/19 06:59 08/26/19 07:50 Lactulose (Cephulac) 20 gm DAILY PRN ORAL Constipation 08/19/19 01:30 09/18/19 01:29 08/25/19 15:07 Lisinopril (PriniviL) 40 mg DAILY ORAL 08/26/19 09:00 09/18/19 08:59 08/26/19 09:07 Magnesium Oxide (Mag-Ox 400mg) 200 mg DAILY ORAL 08/19/19 09:00 09/18/19 08:59 08/26/19 09:06 Methocarbamol (Robaxin) 500 mg Q6H PRN ORAL MUSCLE SPASM 08/19/19 01:30 09/18/19 01:29 08/25/19 15:07 Metoprolol Tartrate (Lopressor) 25 mg Q12HR ORAL 08/19/19 09:00 11/17/19 08:59 08/26/19 09:08 Mirtazapine (Remeron) 15 mg BEDTIME ORAL 08/23/19 21:00 11/21/19 20:59 08/25/19 20:41 Montelukast Sodium (Singulair) 10 mg QPM ORAL 08/19/19 16:30 11/17/19 16:29 08/25/19 17:47 Multivitamins (Multivitamins) 1 tab DAILY ORAL 08/19/19 09:00 09/18/19 08:59 08/26/19 09:07 Ondansetron HCl (Zofran) 4 mg Q6H PRN ORAL Nausea & Vomiting 08/19/19 01:30 09/18/19 01:29 08/26/19 06:47 Oxycodone HCl (Roxicodone) 5 mg Q8H PRN ORAL Severe Pain (Pain Scale 7-10) 08/23/19 19:00 08/30/19 18:59 08/26/19 09:06 Pantoprazole (Protonix) 40 mg DAILY ORAL 08/19/19 09:00 09/18/19 08:59 08/26/19 09:04 Piperacillin Sod/ Tazobactam Sod 3.375 gm/Dextrose 100 ml @ 25 mls/hr Q8H IVPB 08/25/19 23:00 08/27/19 22:59 08/26/19 06:02 Polyethylene Glycol (Miralax) 17 gm DAILY ORAL 08/19/19 09:00 09/18/19 08:59 08/26/19 09:08 Polyethylene Glycol (Miralax) 17 gm DAILYPRN PRN ORAL Constipation 08/18/19 21:00 09/17/19 20:59 Pregabalin (Lyrica) 75 mg TWICE A DAY ORAL 08/19/19 09:00 10/03/19 08:59 08/26/19 09:06 Sennosides (Senokot) 8.6 mg QHS ORAL 08/19/19 21:00 09/18/19 20:59 08/22/19 21:05 Vancomycin HCl (Vanco rx to dose) 1 ea DAILY PRN MISC Per rx protocol 08/21/19 19:30 09/20/19 19:29 Vancomycin HCl 750 mg/Sodium Chloride 275 ml @ 183.333 mls/hr Q12H IVPB 08/26/19 22:00 08/31/19 21:59 Zinc Sulfate (Zinc Sulfate) 220 mg DAILY ORAL 08/19/19 09:00 11/17/19 08:59 08/26/19 09:06 Rafael Lerma MD Aug 26, 2019 13:18
[2019-08-26 16:00] VITALS: BP 160/81
[2019-08-26] MEDS: Montelukast 10mg tablet ORAL SCH (16:17)
[2019-08-26 16:50] LABS: ANION GAP 9 mmol/L (5-15); BLOOD UREA NITROGEN 21 mg/dL (7-18); CALCIUM 10.3 MG/DL (8.5-10.1); CARBON DIOXIDE 29 MMOL/L (21-32); CHLORIDE 94 MMOL/L (98-107); CREATININE 0.8 MG/DL (0.55-1.30); POTASSIUM 4.4 MMOL/L (3.5-5.1); SODIUM 132 MMOL/L (136-145)
--- NOTE | 2019-08-26 18:21 | Neurology Progress Note ---
Interim History Interim History ROS Limited/Unobtainable: No Interim History no new deficits Objective Physical Exam Last Vital Signs Date Time Temp Pulse Resp B/P (MAP) Pulse Ox O2 Delivery O2 Flow Rate FiO2 08/26/19 16:33 160/81 08/26/19 16:00 98.1 84 20 92 08/26/19 13:45 Nasal Cannula 2.0 28 Laboratory Tests Test 08/26/19 10:35 08/26/19 16:00 White Blood Count 8.8 K/UL (4.8-10.8) Red Blood Count 3.76 M/UL (4.20-5.40) L Hemoglobin 11.4 G/DL (12.0-16.0) L Hematocrit 32.9 % (37.0-47.0) L Mean Corpuscular Volume 87 FL (80-99) Mean Corpuscular Hemoglobin 30.3 PG (27.0-31.0) Mean Corpuscular Hemoglobin Concent 34.7 G/DL (32.0-36.0) Red Cell Distribution Width 11.5 % (11.6-14.8) L Platelet Count 394 K/UL (150-450) Mean Platelet Volume 6.0 FL (6.5-10.1) L Neutrophils (%) (Auto) 71.6 % (45.0-75.0) Lymphocytes (%) (Auto) 19.8 % (20.0-45.0) L Monocytes (%) (Auto) 6.4 % (1.0-10.0) Eosinophils (%) (Auto) 0.0 % (0.0-3.0) Basophils (%) (Auto) 2.3 % (0.0-2.0) H Sodium Level 135 MMOL/L (136-145) L 132 MMOL/L (136-145) L Potassium Level 5.5 MMOL/L (3.5-5.1) #H 4.4 MMOL/L (3.5-5.1) Chloride Level 98 MMOL/L (98-107) 94 MMOL/L (98-107) L Carbon Dioxide Level 27 MMOL/L (21-32) 29 MMOL/L (21-32) Anion Gap 11 mmol/L (5-15) 9 mmol/L (5-15) Blood Urea Nitrogen 20 mg/dL (7-18) H 21 mg/dL (7-18) H Creatinine 0.6 MG/DL (0.55-1.30) 0.8 MG/DL (0.55-1.30) Estimat Glomerular Filtration Rate > 60 mL/min (>60) > 60 mL/min (>60) Glucose Level 119 MG/DL (74-106) H 218 MG/DL (74-106) #H Calcium Level 9.8 MG/DL (8.5-10.1) 10.3 MG/DL (8.5-10.1) H Vancomycin Level Trough 10.5 ug/mL (5.0-12.0) General: well nourished Head: normocophalic Neck: no rigidity Neurologic Exam Mental Status: awake Objective moves all 4 symmetric Impression/Recommendations Problems: (1) Hypokalemia (2) Abdominal pain (3) Therapeutic opioid-induced constipation (OIC) (4) Shortness of breath (5) Diastolic CHF (6) Anemia (7) Anxiety (8) Hypercholesteremia (9) Hyponatremia (10) Hypertension (11) Severe sepsis (12) History of breast cancer (13) Respiratory failure with hypoxia (14) Protein-calorie malnutrition, mild (15) GERD (gastroesophageal reflux disease) (16) Cough (17) Dysphagia (18) SOB (shortness of breath) (19) Pleural effusion (20) Renal failure (21) Allergic rhinitis (22) Constipation (23) Osteoporosis (24) Aspiration pneumonia (25) Tracheobronchitis (26) Collapse of left lung (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 (28) Respiratory failure requiring intubation (29) Limited mobility (30) Acute metabolic encephalopathy (31) Decubitus skin ulcer (32) Leukocytosis (33) Gram-negative bacteremia (34) COPD (chronic obstructive pulmonary disease) (35) Chronic respiratory failure with hypoxia (36) Lumbar radiculopathy (37) Fibromyalgia (38) Cervical spondylosis (39) Diastolic CHF, acute on chronic (40) Lumbar spondylosis (41) Acute and chronic respiratory failure ([id number]) (42) Pneumonia (43) Cervical radiculopathy (44) DDD (degenerative disc disease), cervical (45) DDD (degenerative disc disease), lumbar (46) Troponin level elevated (47) UTI (urinary tract infection) Diagnostic Impression acute encephalopathy and gen weakness likely metabolic in the setting of possible covid and resp faikure myalgias GEn pain Depression COVID rule out atb per primary management of fluids nad hyponatremia pt ot delirium precautions Quentin Giron MD Aug 26, 2019 18:21
[2019-08-26] MEDS: Mylanta II UD 30ml ORAL PRN (18:52)
[2019-08-26 20:00] VITALS: BP 110/62
[2019-08-26] MEDS: Atorvastatin 20mg tab ORAL SCH (20:39)
[2019-08-26] MEDS: Sennosides 8.6mg tab ORAL SCH (20:39)
[2019-08-26] MEDS: Vancomycin 750mg/NS 275ml IVPB SCH ×2 (22:15)
--- NOTE | 2019-08-26 23:19 | Psych Consult Progress Note ---
Psychiatry Progress Note Psychiatry Progress Note Medications Current Medications Medications (Trade) Dose Ordered Sig/Wilner Route PRN Reason Start Time Stop Time Status Last Admin Dose Admin Acetaminophen (Tylenol) 650 mg Q4H PRN ORAL Mild Pain (Pain Scale 1-3) 08/19/19 01:30 09/18/19 01:29 08/26/19 16:18 Al Hydroxide/Mg Hydroxide (Mylanta II) 20 ml Q4H PRN ORAL INDIGESTION 08/19/19 01:30 09/18/19 01:29 08/26/19 18:52 Albuterol Sulfate (Proventil MDI) 2 puff Q6HRT PRN INH Shortness of Breath 08/19/19 03:15 11/17/19 03:14 08/25/19 05:47 Amlodipine Besylate (Norvasc) 10 mg DAILY ORAL 08/19/19 09:00 09/18/19 08:59 08/26/19 09:07 Ascorbic Acid (Vitamin C) 500 mg DAILY ORAL 08/19/19 09:00 09/18/19 08:59 08/26/19 09:08 Aspirin (ASA) 81 mg DAILY ORAL 08/19/19 09:00 10/03/19 08:59 08/26/19 09:08 Atorvastatin Calcium (Lipitor) 40 mg BEDTIME ORAL 08/19/19 21:00 11/17/19 20:59 08/26/19 20:39 Benzonatate (Tessalon Perles) 100 mg TIDPRN PRN ORAL cough 08/18/19 21:15 09/17/19 21:14 08/25/19 15:06 Bisacodyl (Dulcolax) 10 mg DAILY PRN RECTAL Constipation 08/19/19 01:30 11/17/19 01:29 Calcium/Vitamin D (OsCal D) 1 tab DAILY ORAL 08/19/19 09:00 11/17/19 08:59 08/26/19 09:08 Dextrose (Dextrose 50%) 25 ml Q30M PRN IV Hypoglycemia 08/18/19 21:00 11/16/19 20:59 Dextrose (Dextrose 50%) 50 ml Q30M PRN IV Hypoglycemia 08/18/19 21:00 11/16/19 20:59 Docusate Sodium (Colace) 100 mg EVERY 12 HOURS ORAL 08/18/19 21:00 09/17/19 20:59 08/26/19 20:39 Dronabinol (Marinol) 2.5 mg BID ORAL 08/19/19 09:00 11/17/19 08:59 08/26/19 17:30 Ferrous Sulfate (Feosol) 325 mg DAILY ORAL 08/19/19 09:00 11/17/19 08:59 08/26/19 09:06 Fluticasone Propionate (Flonase) 1 spray DAILY NASAL 08/19/19 09:00 09/18/19 08:59 08/26/19 09:04 Fluticasone Propionate (Flovent 110 mcg) 2 puff DAILY INH 08/19/19 09:00 09/18/19 08:59 08/26/19 08:00 Heparin Sodium (Porcine) (Heparin 5000 units/ml) 5,000 units EVERY 8 HOURS SUBQ 08/19/19 00:00 10/03/19 00:00 08/26/19 06:33 Hydralazine HCl (Apresoline) 10 mg Q6H PRN ORAL For High Blood Pressure 08/19/19 01:30 11/17/19 01:29 08/26/19 16:33 Ipratropium [place] (Atrovent Inh) 1 puffs Q6HRT INH 08/19/19 07:00 09/18/19 06:59 08/26/19 19:25 Lactulose (Cephulac) 20 gm DAILY PRN ORAL Constipation 08/19/19 01:30 09/18/19 01:29 08/25/19 15:07 Lisinopril (PriniviL) 40 mg DAILY ORAL 08/26/19 09:00 09/18/19 08:59 08/26/19 09:07 Magnesium Oxide (Mag-Ox 400mg) 200 mg DAILY ORAL 08/19/19 09:00 09/18/19 08:59 08/26/19 09:06 Methocarbamol (Robaxin) 500 mg Q6H PRN ORAL MUSCLE SPASM 08/19/19 01:30 09/18/19 01:29 08/25/19 15:07 Metoprolol Tartrate (Lopressor) 37.5 mg Q12HR ORAL 08/26/19 21:00 11/17/19 08:59 4/17/20 20:39 Mirtazapine (Remeron) 15 mg BEDTIME ORAL 08/23/19 21:00 11/21/19 20:59 08/26/19 20:39 Montelukast Sodium (Singulair) 10 mg QPM ORAL 08/19/19 16:30 11/17/19 16:29 08/26/19 16:17 Multivitamins (Multivitamins) 1 tab DAILY ORAL 08/19/19 09:00 09/18/19 08:59 08/26/19 09:07 Ondansetron HCl (Zofran) 4 mg Q6H PRN ORAL Nausea & Vomiting 08/19/19 01:30 09/18/19 01:29 08/26/19 17:27 Oxycodone HCl (Roxicodone) 5 mg Q8H PRN ORAL Severe Pain (Pain Scale 7-10) 08/23/19 19:00 08/30/19 18:59 08/26/19 09:06 Pantoprazole (Protonix) 40 mg DAILY ORAL 08/19/19 09:00 09/18/19 08:59 08/26/19 09:04 Piperacillin Sod/ Tazobactam Sod 3.375 gm/Dextrose 100 ml @ 25 mls/hr Q8H IVPB 08/25/19 23:00 08/27/19 22:59 08/26/19 15:00 Polyethylene Glycol (Miralax) 17 gm DAILY ORAL 08/19/19 09:00 09/18/19 08:59 08/26/19 09:08 Polyethylene Glycol (Miralax) 17 gm DAILYPRN PRN ORAL Constipation 08/18/19 21:00 09/17/19 20:59 Pregabalin (Lyrica) 75 mg TWICE A DAY ORAL 08/19/19 09:00 10/03/19 08:59 08/26/19 17:29 Sennosides (Senokot) 8.6 mg QHS ORAL 08/19/19 21:00 09/18/19 20:59 08/26/19 20:39 Vancomycin HCl (Vanco rx to dose) 1 ea DAILY PRN MISC Per rx protocol 08/21/19 19:30 09/20/19 19:29 Vancomycin HCl 750 mg/Sodium Chloride 275 ml @ 183.333 mls/hr Q12H IVPB 08/26/19 22:00 08/31/19 21:59 08/26/19 22:15 Zinc Sulfate (Zinc Sulfate) 220 mg DAILY ORAL 08/19/19 09:00 11/17/19 08:59 08/26/19 09:06 Neurological/Psychiatric: Reports: anxiety, depressed, emotional problems Allergies: Coded Allergies: [place] (Unverified Allergy, Mild, upset stomach, 02/10/19) TOMATO (Unverified Allergy, Mild, upset stomach, 02/10/19) TETRACYCLINE (Unverified Allergy, Unknown, 07/24/14) Objective Data Height (Feet): 5 Height (Inches): 0.00 Weight (Pounds): 123 General Appearance: WD/WN, no apparent distress, alert, alert oriented x3 Additional Comments: Alert and oriented to time, self, place, and situation. Mood is neutral. Affect is flat. Thought process is linear. Thought content, no suicidal or homicidal ideation. Assessment/Plan Problem List: (1) Anxiety ICD Codes: F41.9 - Anxiety disorder, unspecified SNOMED: [id number] Assessment/Plan: triston gonzalez provided ro/Wan Montejo MD Aug 26, 2019 23:19
[2019-08-27] VITALS: BP 109/57
[2019-08-27 04:00] VITALS: BP 144/73
[2019-08-27] MEDS: oxyCODONE 5mg IR tab ORAL PRN ×2 (04:11→13:08)
[2019-08-27] MEDS: Heparin 5000 units/ml inj SUBQ SCH ×3 (06:00→22:00)
[2019-08-27 08:00] VITALS: BP 129/61
[2019-08-27] MEDS: Flonase Nasal Inhaler 16gm NASAL SCH (09:00)
[2019-08-27] MEDS: Docusate 100mg cap ORAL SCH ×2 (09:28→20:27)
[2019-08-27] MEDS: Lactulose 20gm/30ml UDC ORAL PRN (09:28)
[2019-08-27] MEDS: Zinc Sulfate 220mg cap ORAL SCH (09:29)
[2019-08-27] MEDS: Ascorbic Acid 500mg tab ORAL SCH (09:29)
[2019-08-27] MEDS: Calcium Carbonate 500mg w/Vit D 200iu tab ORAL SCH (09:29)
[2019-08-27] MEDS: Aspirin Baby 81mg ORAL SCH (09:29)
[2019-08-27] MEDS: Magnesium Oxide 400mg tab ORAL SCH (09:30)
[2019-08-27] MEDS: Lyrica 75mg cap ORAL SCH (09:31)
[2019-08-27] MEDS: Lisinopril 20mg tab ORAL SCH (09:32)
[2019-08-27] MEDS: Dronabinol 2.5mg Cap ORAL SCH ×2 (09:32→17:40)
[2019-08-27] MEDS: Miralax 17gm pkt ORAL SCH (09:32)
[2019-08-27] MEDS: Vancomycin 750mg/NS 275ml IVPB SCH ×4 (09:36→22:08)
[2019-08-27] MEDS: Ipratropium Bromide Inhaler INH SCH ×3 (09:38→19:00)
[2019-08-27] MEDS: Flovent 110mcg Inhaler - 12gm INH SCH (09:38)
[2019-08-27 11:21] LABS: HEMATOCRIT 36.4 % (37.0-47.0); HEMOGLOBIN 11.9 G/DL (12.0-16.0); MEAN CORPUSCULAR VOLUME 90 FL (80-99); PLATELET COUNT 386 K/UL (150-450); RED BLOOD COUNT 4.06 M/UL (4.20-5.40); WHITE BLOOD COUNT 10.2 K/UL (4.8-10.8)
[2019-08-27 12:00] VITALS: BP 123/71
[2019-08-27 12:00] LABS: ALANINE AMINOTRANSFERASE 17 U/L (12-78); ALBUMIN 3.4 G/DL (3.4-5.0); ALBUMIN/GLOBULIN RATIO 0.9 (1.0-2.7); ALKALINE PHOSPHATASE 88 U/L (46-116); ANION GAP 14 mmol/L (5-15); ASPARTATE AMINO TRANSFERASE 19 U/L (15-37); BILIRUBIN,TOTAL 0.2 MG/DL (0.2-1.0); BLOOD UREA NITROGEN 28 mg/dL (7-18); CALCIUM 9.5 MG/DL (8.5-10.1); CARBON DIOXIDE 24 MMOL/L (21-32); CHLORIDE 98 MMOL/L (98-107); CREATININE 0.9 MG/DL (0.55-1.30); POTASSIUM 4.6 MMOL/L (3.5-5.1); SODIUM 136 MMOL/L (136-145)
--- NOTE | 2019-08-27 12:14 | Nephrology Progress Note ---
Assessment/Plan Plan #Hyponatremia - likely hypovolumic - r/o SIADH in the setting of pulmonary infection- improving #Acute on chronic hypoxic resp failure #Acute bronchitis #Rule out COVID-19 #COPD #HTN #Chronic diastolic CHF #Depression #GERD #Chronic right hydronephrosis #Left hemorrhagic renal cyst #Nephrolithiasis #Hematuria #hypokalemia - repleted - repeat K normalized - monitor BMP - check free T4-> WNL - lisinopril to 40 daily--> will decrease dose back to 20 if K persistently elevated - continue MTP 25 BID, - continue amlodipine 10 qdaily - continue antibiotics per ID - breathing treatment. - ID and Pulm eval - Continue Lexapro- - Continue qhs Mirtazapine - - Continue pregabalin 75 mg BID - Subjective Subjective sodium stable repeat K normalized Bp stable Breathing stable Objective Objective Last 24 Hour Vital Signs Date Time Temp Pulse Resp B/P (MAP) Pulse Ox O2 Delivery O2 Flow Rate FiO2 08/27/19 09:33 60 129/61 08/27/19 09:32 129/61 08/27/19 09:28 60 129/61 08/27/19 08:00 98.2 60 18 129/61 (83) 97 08/27/19 08:00 80 18 94 Nasal Cannula 2.0 28 08/27/19 08:00 80 18 95 Nasal Cannula 2.0 28 08/27/19 07:00 77 18 94 Nasal Cannula 2.0 28 08/27/19 07:00 94 Nasal Cannula 2.0 28 08/27/19 07:00 77 18 94 Nasal Cannula 2.0 28 08/27/19 04:00 67 08/27/19 04:00 97.7 71 20 144/73 (96) 95 08/27/19 00:00 68 08/27/19 00:00 97.7 71 20 109/57 (74) 97 08/26/19 21:00 Nasal Cannula 2.0 08/26/19 20:39 76 160/81 08/26/19 20:00 99.0 88 20 110/62 (78) 93 08/26/19 19:25 76 20 96 Nasal Cannula 2.0 28 08/26/19 19:25 95 Nasal Cannula 2.0 28 08/26/19 19:25 76 20 96 Nasal Cannula 2.0 28 08/26/19 16:33 160/81 08/26/19 16:00 98.1 84 20 160/81 (107) 92 08/26/19 13:45 85 20 95 Nasal Cannula 2.0 28 08/26/19 13:45 85 20 95 Nasal Cannula 2.0 28 08/26/19 12:16 98.1 Intake and Output 08/26/19 08/27/19 19:00 07:00 Output Total 1500 ml Balance -1500 ml Output Urine Total 1500 ml # Bowel Movements 1 1 Laboratory Tests 08/26/19 16:00: Sodium Level 132L, Potassium Level 4.4, Chloride Level 94L, Carbon Dioxide Level 29, Anion Gap 9, Blood Urea Nitrogen 21H, Creatinine 0.8, Estimat Glomerular Filtration Rate > 60, Glucose Level 218#H, Calcium Level 10.3H 08/27/19 10:30: White Blood Count 10.2, Red Blood Count 4.06L, Hemoglobin 11.9L, Hematocrit 36.4L, Mean Corpuscular Volume 90, Mean Corpuscular Hemoglobin 29.3, Mean Corpuscular Hemoglobin Concent 32.7, Red Cell Distribution Width 12.0, Platelet Count 386, Mean Platelet Volume 5.5L, Neutrophils (%) (Auto) , Lymphocytes (%) ( Auto) , Monocytes (%) (Auto) , Eosinophils (%) (Auto) , Basophils (%) (Auto) , Neutrophils % (Manual) [Pending], Lymphocytes % (Manual) [Pending], Platelet Estimate [Pending], Platelet Morphology [Pending] 08/27/19 10:38: Sodium Level 136, Potassium Level 4.6, Chloride Level 98, Carbon Dioxide Level 24, Anion Gap 14, Blood Urea Nitrogen 28H, Creatinine 0.9, Estimat Glomerular Filtration Rate > 60, Glucose Level 95#, Calcium Level 9.5, Total Bilirubin 0.2 , Aspartate Amino Transf (AST/SGOT) 19, Alanine Aminotransferase (ALT/SGPT) 17, Alkaline Phosphatase 88, Total Protein 7.4, Albumin 3.4, Globulin 4.0, Albumin/ Globulin Ratio 0.9L Height (Feet): 5 Height (Inches): 0.00 Weight (Pounds): 123 Salma Ibanez M.D. Aug 27, 2019 12:14
[2019-08-27] MEDS ORDERED: NS 275ml ONE (14:32)
[2019-08-27] MEDS ORDERED: Tubing IV Secondary IV ONE (14:32)
--- NOTE | 2019-08-27 14:53 | Pulmonology Progress Note ---
Assessment/Plan Assessment/Plan ASSESSMENT: The patient is a 78-year-old female with a history of COPD, diastolic dysfunction, CHF, breast cancer, anemia, admitted with COVID 19 PNA PROBLEM LIST: 1. COVID19 PNA 2. Acute hypoxemic respiratory failure. 3. COPD. ic dysfunction. 5. History of mucus plugging. 6. History of breast cancer. 7. Anemia. 8. Hyponatremia. 9. Dementia. 10. 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 11. Dysphagia. TREATMENT PLAN: 1. Optimize pulmonary hygiene/mobilize as tolerated. 2. Titrate down FiO2 to keep saturations greater than 90%. 3. [id number] and p.r.n. albuterol and Atrovent metered-dose inhalers via spacer. 4. Completed Plaquenil (D5/5) 5. Off steroids 6. ABx: Zosyn per ID, FU repeat COVID 7. Monitor volumes and renal function. 8. DVT prophylaxis, heparin subcu. 9. Continue Singulair. 10. Continue fluticasone inhaler b.i.d. 11. Continue Tessalon t.i.d. p.r.n. 12. Continue Mucinex and p.r.n. Robitussin. D/W patient D/W RN Subjective Allergies: Coded Allergies: [place] (Unverified Allergy, Mild, upset stomach, 02/10/19) TOMATO (Unverified Allergy, Mild, upset stomach, 02/10/19) TETRACYCLINE (Unverified Allergy, Unknown, 07/24/14) Subjective NAEO AFVSS on 2L denies cough or SOB no FC no CP Objective Last 24 Hour Vital Signs Date Time Temp Pulse Resp B/P (MAP) Pulse Ox O2 Delivery O2 Flow Rate FiO2 08/27/19 13:19 74 18 96 Nasal Cannula 2.0 28 08/27/19 13:19 74 18 96 Nasal Cannula 2.0 28 08/27/19 09:33 60 129/61 08/27/19 09:32 129/61 08/27/19 09:28 60 129/61 08/27/19 08:00 98.2 60 18 129/61 (83) 97 08/27/19 08:00 80 18 94 Nasal Cannula 2.0 28 08/27/19 08:00 80 18 95 Nasal Cannula 2.0 28 08/27/19 07:00 77 18 94 Nasal Cannula 2.0 28 08/27/19 07:00 94 Nasal Cannula 2.0 28 08/27/19 07:00 77 18 94 Nasal Cannula 2.0 28 08/27/19 04:00 67 08/27/19 04:00 97.7 71 20 144/73 (96) 95 08/27/19 00:00 68 08/27/19 00:00 97.7 71 20 109/57 (74) 97 08/26/19 21:00 Nasal Cannula 2.0 08/26/19 20:39 76 160/81 08/26/19 20:00 99.0 88 20 110/62 (78) 93 08/26/19 19:25 76 20 96 Nasal Cannula 2.0 28 08/26/19 19:25 95 Nasal Cannula 2.0 28 08/26/19 19:25 76 20 96 Nasal Cannula 2.0 28 08/26/19 16:33 160/81 08/26/19 16:00 98.1 84 20 160/81 (107) 92 Intake and Output 08/26/19 08/27/19 19:00 07:00 Output Total 1500 ml Balance -1500 ml Output Urine Total 1500 ml # Bowel Movements 1 1 Objective Deferred 2/2 COVID isolation, PPE requirements, no distress, not coughing, less confused, awake and alert General Appearance: no acute distress Laboratory Tests 08/26/19 16:00: Sodium Level 132L, Potassium Level 4.4, Chloride Level 94L, Carbon Dioxide Level 29, Anion Gap 9, Blood Urea Nitrogen 21H, Creatinine 0.8, Estimat Glomerular Filtration Rate > 60, Glucose Level 218#H, Calcium Level 10.3H 08/27/19 10:30: White Blood Count 10.2, Red Blood Count 4.06L, Hemoglobin 11.9L, Hematocrit 36.4L, Mean Corpuscular Volume 90, Mean Corpuscular Hemoglobin 29.3, Mean Corpuscular Hemoglobin Concent 32.7, Red Cell Distribution Width 12.0, Platelet Count 386, Mean Platelet Volume 5.5L, Neutrophils (%) (Auto) , Lymphocytes (%) ( Auto) , Monocytes (%) (Auto) , Eosinophils (%) (Auto) , Basophils (%) (Auto) , Differential Total Cells Counted 100, Neutrophils % (Manual) 53, Lymphocytes % ( Manual) 43, Monocytes % (Manual) 3, Eosinophils % (Manual) 1, Basophils % ( Manual) 0, Band Neutrophils 0, Platelet Estimate Adequate, Platelet Morphology Normal, Red Blood Cell Morphology Normal 08/27/19 10:38: Sodium Level 136, Potassium Level 4.6, Chloride Level 98, Carbon Dioxide Level 24, Anion Gap 14, Blood Urea Nitrogen 28H, Creatinine 0.9, Estimat Glomerular Filtration Rate > 60, Glucose Level 95#, Calcium Level 9.5, Total Bilirubin 0.2 , Aspartate Amino Transf (AST/SGOT) 19, Alanine Aminotransferase (ALT/SGPT) 17, Alkaline Phosphatase 88, Total Protein 7.4, Albumin 3.4, Globulin 4.0, Albumin/ Globulin Ratio 0.9L Current Medications Medications (Trade) Dose Ordered Sig/Wilner Route PRN Reason Start Time Stop Time Status Last Admin Dose Admin Acetaminophen (Tylenol) 650 mg Q4H PRN ORAL Mild Pain (Pain Scale 1-3) 08/19/19 01:30 09/18/19 01:29 08/26/19 16:18 Al Hydroxide/Mg Hydroxide (Mylanta II) 20 ml Q4H PRN ORAL INDIGESTION 08/19/19 01:30 09/18/19 01:29 08/26/19 18:52 Albuterol Sulfate (Proventil MDI) 2 puff Q6HRT PRN INH Shortness of Breath 08/19/19 03:15 11/17/19 03:14 08/25/19 05:47 Amlodipine Besylate (Norvasc) 10 mg DAILY ORAL 08/19/19 09:00 09/18/19 08:59 08/27/19 09:28 Ascorbic Acid (Vitamin C) 500 mg DAILY ORAL 08/19/19 09:00 09/18/19 08:59 08/27/19 09:29 Aspirin (ASA) 81 mg DAILY ORAL 08/19/19 09:00 10/03/19 08:59 08/27/19 09:29 Atorvastatin Calcium (Lipitor) 40 mg BEDTIME ORAL 08/19/19 21:00 11/17/19 20:59 08/26/19 20:39 Benzonatate (Tessalon Perles) 100 mg TIDPRN PRN ORAL cough 08/18/19 21:15 09/17/19 21:14 08/25/19 15:06 Bisacodyl (Dulcolax) 10 mg DAILY PRN RECTAL Constipation 08/19/19 01:30 11/17/19 01:29 Calcium/Vitamin D (OsCal D) 1 tab DAILY ORAL 08/19/19 09:00 11/17/19 08:59 08/27/19 09:29 Dextrose (Dextrose 50%) 25 ml Q30M PRN IV Hypoglycemia 08/18/19 21:00 11/16/19 20:59 Dextrose (Dextrose 50%) 50 ml Q30M PRN IV Hypoglycemia 08/18/19 21:00 11/16/19 20:59 Docusate Sodium (Colace) 100 mg EVERY 12 HOURS ORAL 08/18/19 21:00 09/17/19 20:59 08/27/19 09:28 Dronabinol (Marinol) 2.5 mg BID ORAL 08/19/19 09:00 11/17/19 08:59 08/27/19 09:32 Ferrous Sulfate (Feosol) 325 mg DAILY ORAL 08/19/19 09:00 11/17/19 08:59 08/27/19 09:30 Fluticasone Propionate (Flonase) 1 spray DAILY NASAL 08/19/19 09:00 09/18/19 08:59 08/27/19 09:00 Fluticasone Propionate (Flovent 110 mcg) 2 puff DAILY INH 08/19/19 09:00 09/18/19 08:59 08/27/19 09:38 Heparin Sodium (Porcine) (Heparin 5000 units/ml) 5,000 units EVERY 8 HOURS SUBQ 08/19/19 00:00 10/03/19 00:00 08/27/19 13:08 Hydralazine HCl (Apresoline) 10 mg Q6H PRN ORAL For High Blood Pressure 08/19/19 01:30 11/17/19 01:29 08/26/19 16:33 Ipratropium Lolo (Atrovent Inh) 1 puffs Q6HRT INH 08/19/19 07:00 09/18/19 06:59 08/27/19 13:18 Lactulose (Cephulac) 20 gm DAILY PRN ORAL Constipation 08/19/19 01:30 09/18/19 01:29 08/25/19 15:07 Lisinopril (PriniviL) 40 mg DAILY ORAL 08/26/19 09:00 09/18/19 08:59 08/27/19 09:32 Magnesium Oxide (Mag-Ox 400mg) 200 mg DAILY ORAL 08/19/19 09:00 09/18/19 08:59 08/27/19 09:30 Methocarbamol (Robaxin) 500 mg Q6H PRN ORAL MUSCLE SPASM 08/19/19 01:30 09/18/19 01:29 08/25/19 15:07 Metoprolol Tartrate (Lopressor) 37.5 mg Q12HR ORAL 08/26/19 21:00 11/17/19 08:59 08/27/19 09:33 Mirtazapine (Remeron) 15 mg BEDTIME ORAL 08/23/19 21:00 11/21/19 20:59 08/26/19 20:39 Montelukast Sodium (Singulair) 10 mg QPM ORAL 08/19/19 16:30 11/17/19 16:29 08/26/19 16:17 Multivitamins (Multivitamins) 1 tab DAILY ORAL 08/19/19 09:00 09/18/19 08:59 08/27/19 09:28 Ondansetron HCl (Zofran) 4 mg Q6H PRN ORAL Nausea & Vomiting 08/19/19 01:30 09/18/19 01:29 08/27/19 04:11 Oxycodone HCl (Roxicodone) 5 mg Q8H PRN ORAL Severe Pain (Pain Scale 7-10) 08/23/19 19:00 08/30/19 18:59 08/27/19 13:08 Pantoprazole (Protonix) 40 mg DAILY ORAL 08/19/19 09:00 09/18/19 08:59 08/27/19 09:28 Piperacillin Sod/ Tazobactam Sod 3.375 gm/Dextrose 100 ml @ 25 mls/hr Q8H IVPB 08/25/19 23:00 08/27/19 22:59 08/27/19 07:01 Polyethylene Glycol (Miralax) 17 gm DAILY ORAL 08/19/19 09:00 09/18/19 08:59 08/27/19 09:32 Polyethylene Glycol (Miralax) 17 gm DAILYPRN PRN ORAL Constipation 08/18/19 21:00 09/17/19 20:59 Pregabalin (Lyrica) 75 mg TWICE A DAY ORAL 08/19/19 09:00 10/03/19 08:59 08/27/19 09:31 Sennosides (Senokot) 8.6 mg QHS ORAL 08/19/19 21:00 09/18/19 20:59 08/26/19 20:39 Vancomycin HCl (Vanco rx to dose) 1 ea DAILY PRN MISC Per rx protocol 08/21/19 19:30 09/20/19 19:29 Vancomycin HCl 750 mg/Sodium Chloride 275 ml @ 183.333 mls/hr Q12H IVPB 08/26/19 22:00 08/31/19 21:59 08/27/19 09:36 Zinc Sulfate (Zinc Sulfate) 220 mg DAILY ORAL 08/19/19 09:00 11/17/19 08:59 08/27/19 09:29 Rafael Lerma MD Aug 27, 2019 14:53
[2019-08-27] MEDS: Montelukast 10mg tablet ORAL SCH (15:49)
[2019-08-27 16:00] VITALS: BP 125/57
--- NOTE | 2019-08-27 16:28 | General Progress Note ---
Assessment/Plan Assessment/Plan: 78 year old woman SNF resident with chronic resp failure due to COPD, HTN, chronic dCHF, chronic pain, depression, anxiety, chronic right hydronephrosis who presented from SNF with dyspnea, cough body aches, COVID-19 positive #Acute on chronic hypoxic resp failure, 2L O2 dependant #Acute bronchitis #HCAP #COVID-19 POSITIVE #COPD -cont. inpatient medical care -Inhaled bronchodilators prn -Continue supplemental oxygen -COVID-19 positive -abx per ID: [email or web address] day #11/14, s/p hydroxychloroquine #09/12, s/p azithro #09/12 -ID and Pulm consulted, recs appreciated -08/23 repeat COVID w/indeterminate abnormal -Pending COVID neg x 2 for discharge back to [facility] #Hyponatremia - resolved #Hypokalemia -replaced, ctm, replace PRN -Nephro following, recs appreciated #HTN #Chronic diastolic CHF -Cont outpatient meds lisinopril 20 daily, MTP 25 BID, amlodipine 10 q daily #Depression #Chronic pain #Anxiety disorder #Osteoarthritis -Continue qhs Mirtazapine. -Continue pregabalin 75 mg BID -Continue home Dronabinol 2.5 mg BID -Continue Clonazepam 0.5 mg BID -Continue Oxycodone 5 mg q12h prn -Psych consulted - recs appreciated #GERD -cont. PPI #Chronic right hydronephrosis #Left hemorrhagic renal cyst #Nephrolithiasis #Hematuria I spent 35 minutes on this patient's case, and 25 minutes was dedicated to counseling and/or care coordination witch included communication with RN, consulting MDs, case management Subjective Date patient seen: Aug 27, 2019 Time patient seen: 11:25 Constitutional: Denies: chills, fever Cardiovascular: Denies: chest pain Respiratory: Denies: cough Allergies: Coded Allergies: [place] (Unverified Allergy, Mild, upset stomach, 02/10/19) TOMATO (Unverified Allergy, Mild, upset stomach, 02/10/19) TETRACYCLINE (Unverified Allergy, Unknown, 07/24/14) Subjective Follow up for COVID-19/coronavirus infection No acute issues overnight Oxygenating well on 2 liters NC Awaiting 2 neg coronavirus PCRs for discharge back to [facility] Objective Last 24 Hour Vital Signs Date Time Temp Pulse Resp B/P (MAP) Pulse Ox O2 Delivery O2 Flow Rate FiO2 08/27/19 13:19 74 18 96 Nasal Cannula 2.0 28 08/27/19 13:19 74 18 96 Nasal Cannula 2.0 28 08/27/19 09:33 60 129/61 08/27/19 09:32 129/61 08/27/19 09:28 60 129/61 08/27/19 08:00 98.2 60 18 129/61 (83) 97 08/27/19 08:00 80 18 94 Nasal Cannula 2.0 28 08/27/19 08:00 80 18 95 Nasal Cannula 2.0 28 08/27/19 07:00 77 18 94 Nasal Cannula 2.0 28 08/27/19 07:00 94 Nasal Cannula 2.0 28 08/27/19 07:00 77 18 94 Nasal Cannula 2.0 28 08/27/19 04:00 67 08/27/19 04:00 97.7 71 20 144/73 (96) 95 08/27/19 00:00 68 08/27/19 00:00 97.7 71 20 109/57 (74) 97 08/26/19 21:00 Nasal Cannula 2.0 08/26/19 20:39 76 160/81 08/26/19 20:00 99.0 88 20 110/62 (78) 93 08/26/19 19:25 76 20 96 Nasal Cannula 2.0 28 08/26/19 19:25 95 Nasal Cannula 2.0 28 08/26/19 19:25 76 20 96 Nasal Cannula 2.0 28 08/26/19 16:33 160/81 Intake and Output 08/26/19 08/27/19 19:00 07:00 Output Total 1500 ml Balance -1500 ml Output Urine Total 1500 ml # Bowel Movements 1 1 Laboratory Tests 08/27/19 10:30: White Blood Count 10.2, Red Blood Count 4.06L, Hemoglobin 11.9L, Hematocrit 36.4L, Mean Corpuscular Volume 90, Mean Corpuscular Hemoglobin 29.3, Mean Corpuscular Hemoglobin Concent 32.7, Red Cell Distribution Width 12.0, Platelet Count 386, Mean Platelet Volume 5.5L, Neutrophils (%) (Auto) , Lymphocytes (%) ( Auto) , Monocytes (%) (Auto) , Eosinophils (%) (Auto) , Basophils (%) (Auto) , Differential Total Cells Counted 100, Neutrophils % (Manual) 53, Lymphocytes % ( Manual) 43, Monocytes % (Manual) 3, Eosinophils % (Manual) 1, Basophils % ( Manual) 0, Band Neutrophils 0, Platelet Estimate Adequate, Platelet Morphology Normal, Red Blood Cell Morphology Normal 08/27/19 10:38: Sodium Level 136, Potassium Level 4.6, Chloride Level 98, Carbon Dioxide Level 24, Anion Gap 14, Blood Urea Nitrogen 28H, Creatinine 0.9, Estimat Glomerular Filtration Rate > 60, Glucose Level 95#, Calcium Level 9.5, Total Bilirubin 0.2 , Aspartate Amino Transf (AST/SGOT) 19, Alanine Aminotransferase (ALT/SGPT) 17, Alkaline Phosphatase 88, Total Protein 7.4, Albumin 3.4, Globulin 4.0, Albumin/ Globulin Ratio 0.9L Height (Feet): 5 Height (Inches): 0.00 Weight (Pounds): 123 General Appearance: alert Neck: normal alignment, supple Cardiovascular: normal rate, regular rhythm Respiratory/Chest: lungs clear, normal breath sounds, no respiratory distress, no accessory muscle use Abdomen: non tender, soft Anjum Macedo MD Aug 27, 2019 16:28
--- NOTE | 2019-08-27 17:36 | Infectious Diseases Prog Note ---
Assessment/Plan Assessment/Plan ASSESSMENT AND PLAN: 1. covid-19 virus infection with pna, ? cap, ? risk for aspiration/hcap pna, hypoxia - s/p hydroxychloroquine - zosyn and vancomycin - day # 7 - s/p azithromycin - monitor labs and chest x-ray - 08/25 - chest x-ray worse - monitor respiratory status closely - telemetry 2. pulmonary mgt noted 3. The patient has anemia. 4. Congestive heart failure. 5. Hypertension. 6. Blood pressure treatment per primary care team. 7. Leukopenia consistent with viral syndrome. 8. History of urinary tract infection. We will check urine C and S. 9. Anxiety and chronic pain. 10. Chronic obstructive pulmonary disease. 11. Allergies to oranges, tetracycline, tomatoes. 12. Social history is negative. 13. Family history is noncontributory. 14. MAR was noted. 15. Case discussed with RN. 16. Skin care protocol. 17. The patient comes from a alf facility. Subjective Constitutional: Denies: fever HEENT: Denies: congestion Respiratory: Denies: shortness of breath Cardiovascular: Denies: chest pain Gastrointestinal/Abdominal: Denies: nausea, diarrhea Genitourinary: Reports: other Neurologic: Denies: headache Psychiatric: Denies: depression Skin: Denies: rash Hematologic: Denies: bleeding Musculoskeletal: Denies: pain Allergies: Coded Allergies: [place] (Unverified Allergy, Mild, upset stomach, 02/10/19) TOMATO (Unverified Allergy, Mild, upset stomach, 02/10/19) TETRACYCLINE (Unverified Allergy, Unknown, 07/24/14) Objective Vital Signs Last 24 Hour Vital Signs Date Time Temp Pulse Resp B/P (MAP) Pulse Ox O2 Delivery O2 Flow Rate FiO2 08/27/19 13:19 74 18 96 Nasal Cannula 2.0 28 08/27/19 13:19 74 18 96 Nasal Cannula 2.0 28 08/27/19 09:33 60 129/61 08/27/19 09:32 129/61 08/27/19 09:28 60 129/61 08/27/19 08:00 98.2 60 18 129/61 (83) 97 08/27/19 08:00 80 18 94 Nasal Cannula 2.0 28 08/27/19 08:00 80 18 95 Nasal Cannula 2.0 28 08/27/19 07:00 77 18 94 Nasal Cannula 2.0 28 08/27/19 07:00 94 Nasal Cannula 2.0 28 08/27/19 07:00 77 18 94 Nasal Cannula 2.0 28 08/27/19 04:00 67 08/27/19 04:00 97.7 71 20 144/73 (96) 95 08/27/19 00:00 68 08/27/19 00:00 97.7 71 20 109/57 (74) 97 08/26/19 21:00 Nasal Cannula 2.0 08/26/19 20:39 76 160/81 08/26/19 20:00 99.0 88 20 110/62 (78) 93 08/26/19 19:25 76 20 96 Nasal Cannula 2.0 28 08/26/19 19:25 95 Nasal Cannula 2.0 28 08/26/19 19:25 76 20 96 Nasal Cannula 2.0 28 Height (Feet): 5 Height (Inches): 0.00 Weight (Pounds): 123 General Appearance: no acute distress HEENT: normocephalic, atraumatic, anicteric, mucous membranes moist Respiratory/Chest: lungs clear, normal breath sounds, no respiratory distress, no accessory muscle use Cardiovascular: normal rate, regular rhythm, no gallop/murmur, no JVD Abdomen: normal bowel sounds, soft, non tender, no organomegaly, non distended Genitourinary: other - no shi Extremities: no cyanosis Skin: no rash Neurologic/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 There is bilateral interstitial congestion. There is also some patchy airspace disease in the perihilar regions. There is pleural thickening versus fluid in the left inferolateral hemithorax. Surgical clips are seen adjacent to the right pulmonary hilum. Numerous surgical clips are seen in the right axilla. Findings are similar to the prior exam Impression: Findings likely represent congestive heart failure with interstitial edema, patchy airspace edema, and a left pleural effusion. However, similarity to the prior exam raises possibility that there is also a chronic component. Chest x-ray - 08/23/19 - Procedure: XRAY Chest 1v Indication: Shortness of breath Technique: One view of the chest Comparison: 08/18/2019 Findings: There is suggestion of increased hazy opacity at the right lung base, may reflect increasing infiltrate and/or pleural fluid. Left basilar infiltrate and pleural fluid appear unchanged. The heart is borderline enlarged. Surgical clips are again demonstrated in the right paratracheal region and also in the right axilla. Impression: Increasing right basilar hazy infiltrate and/or pleural fluid are in stable left basilar pleural and parenchymal disease, over 5 days Chest x-ray - 08/26/19 - Procedure: XRAY Chest 1v Indication: Shortness of breath Technique: One view of the chest Comparison: 08/23/2019 Findings: Patient is somewhat rotated to the left. There is a apparent interim leftward shift of the mediastinum. This is probably mostly artifactual due to patient rotation but could indicate a component of developing volume loss. There appears to be increased air bronchograms in the retrocardiac region suggesting increasing infiltrate. There is also suggestion of new or increasing pleural fluid on the left. Hazy opacity at the right lung base may reflect hazy infiltrate or could be an artifact of overlying soft tissues. Evidence of prior mediastinal and right axillary surgery again demonstrated Impression: Suspect increasing left lung consolidation, volume loss, and left- sided pleural fluid Possible hazy right basilar infiltrate, unchanged Microbiology Date/Time Source Procedure Growth Status 08/18/19 19:00 Blood Blood Culture - Final NO GROWTH AFTER 5 DAYS Complete 08/24/19 14:30 Nasopharynx Coronavirus COVID-19 PCR ([facility]) - Final Complete covid-19 - pcr - 08/24/19 - indeterminate Laboratory Tests Test 08/27/19 10:30 08/27/19 10:38 White Blood Count 10.2 K/UL (4.8-10.8) Red Blood Count 4.06 M/UL (4.20-5.40) L Hemoglobin 11.9 G/DL (12.0-16.0) L Hematocrit 36.4 % (37.0-47.0) L Mean Corpuscular Volume 90 FL (80-99) Mean Corpuscular Hemoglobin 29.3 PG (27.0-31.0) Mean Corpuscular Hemoglobin Concent 32.7 G/DL (32.0-36.0) Red Cell Distribution Width 12.0 % (11.6-14.8) Platelet Count 386 K/UL (150-450) Mean Platelet Volume 5.5 FL (6.5-10.1) L Neutrophils (%) (Auto) % (45.0-75.0) Lymphocytes (%) (Auto) % (20.0-45.0) Monocytes (%) (Auto) % (1.0-10.0) Eosinophils (%) (Auto) % (0.0-3.0) Basophils (%) (Auto) % (0.0-2.0) Differential Total Cells Counted 100 Neutrophils % (Manual) 53 % (45-75) Lymphocytes % (Manual) 43 % (20-45) Monocytes % (Manual) 3 % (1-10) Eosinophils % (Manual) 1 % (0-3) Basophils % (Manual) 0 % (0-2) Band Neutrophils 0 % (0-8) Platelet Estimate Adequate Platelet Morphology Normal Red Blood Cell Morphology Normal Sodium Level 136 MMOL/L (136-145) Potassium Level 4.6 MMOL/L (3.5-5.1) Chloride Level 98 MMOL/L (98-107) Carbon Dioxide Level 24 MMOL/L (21-32) Anion Gap 14 mmol/L (5-15) Blood Urea Nitrogen 28 mg/dL (7-18) H Creatinine 0.9 MG/DL (0.55-1.30) Estimat Glomerular Filtration Rate > 60 mL/min (>60) Glucose Level 95 MG/DL (74-106) # Calcium Level 9.5 MG/DL (8.5-10.1) Total Bilirubin 0.2 MG/DL (0.2-1.0) Aspartate Amino Transf (AST/SGOT) 19 U/L (15-37) Alanine Aminotransferase (ALT/SGPT) 17 U/L (12-78) Alkaline Phosphatase 88 U/L (46-116) Total Protein 7.4 G/DL (6.4-8.2) Albumin 3.4 G/DL (3.4-5.0) Globulin 4.0 g/dL Albumin/Globulin Ratio 0.9 (1.0-2.7) L Current Medications Medications (Trade) Dose Ordered Sig/Wilner Route PRN Reason Start Time Stop Time Status Last Admin Dose Admin Acetaminophen (Tylenol) 650 mg Q4H PRN ORAL Mild Pain (Pain Scale 1-3) 08/19/19 01:30 09/18/19 01:29 08/26/19 16:18 Al Hydroxide/Mg Hydroxide (Mylanta II) 20 ml Q4H PRN ORAL INDIGESTION 08/19/19 01:30 09/18/19 01:29 08/26/19 18:52 Albuterol Sulfate (Proventil MDI) 2 puff Q6HRT PRN INH Shortness of Breath 08/19/19 03:15 11/17/19 03:14 08/25/19 05:47 Amlodipine Besylate (Norvasc) 10 mg DAILY ORAL 08/19/19 09:00 09/18/19 08:59 08/27/19 09:28 Ascorbic Acid (Vitamin C) 500 mg DAILY ORAL 08/19/19 09:00 09/18/19 08:59 08/27/19 09:29 Aspirin (ASA) 81 mg DAILY ORAL 08/19/19 09:00 10/03/19 08:59 08/27/19 09:29 Atorvastatin Calcium (Lipitor) 40 mg BEDTIME ORAL 08/19/19 21:00 11/17/19 20:59 08/26/19 20:39 Benzonatate (Tessalon Perles) 100 mg TIDPRN PRN ORAL cough 08/18/19 21:15 09/17/19 21:14 08/25/19 15:06 Bisacodyl (Dulcolax) 10 mg DAILY PRN RECTAL Constipation 08/19/19 01:30 11/17/19 01:29 Calcium/Vitamin D (OsCal D) 1 tab DAILY ORAL 08/19/19 09:00 11/17/19 08:59 08/27/19 09:29 Dextrose (Dextrose 50%) 25 ml Q30M PRN IV Hypoglycemia 08/18/19 21:00 11/16/19 20:59 Dextrose (Dextrose 50%) 50 ml Q30M PRN IV Hypoglycemia 08/18/19 21:00 11/16/19 20:59 Docusate Sodium (Colace) 100 mg EVERY 12 HOURS ORAL 08/18/19 21:00 09/17/19 20:59 08/27/19 09:28 Dronabinol (Marinol) 2.5 mg BID ORAL 08/19/19 09:00 11/17/19 08:59 08/27/19 09:32 Ferrous Sulfate (Feosol) 325 mg DAILY ORAL 08/19/19 09:00 11/17/19 08:59 08/27/19 09:30 Fluticasone Propionate (Flonase) 1 spray DAILY NASAL 08/19/19 09:00 09/18/19 08:59 08/27/19 09:00 Fluticasone Propionate (Flovent 110 mcg) 2 puff DAILY INH 08/19/19 09:00 09/18/19 08:59 08/27/19 09:38 Heparin Sodium (Porcine) (Heparin 5000 units/ml) 5,000 units EVERY 8 HOURS SUBQ 08/19/19 00:00 10/03/19 00:00 08/27/19 13:08 Hydralazine HCl (Apresoline) 10 mg Q6H PRN ORAL For High Blood Pressure 08/19/19 01:30 11/17/19 01:29 08/26/19 16:33 Ipratropium [place] (Atrovent Inh) 1 puffs Q6HRT INH 08/19/19 07:00 09/18/19 06:59 08/27/19 13:18 Lactulose (Cephulac) 20 gm DAILY PRN ORAL Constipation 08/19/19 01:30 09/18/19 01:29 08/25/19 15:07 Lisinopril (PriniviL) 40 mg DAILY ORAL 08/26/19 09:00 09/18/19 08:59 08/27/19 09:32 Magnesium Oxide (Mag-Ox 400mg) 200 mg DAILY ORAL 08/19/19 09:00 09/18/19 08:59 08/27/19 09:30 Metoprolol Tartrate (Lopressor) 37.5 mg Q12HR ORAL 08/26/19 21:00 11/17/19 08:59 08/27/19 09:33 Mirtazapine (Remeron) 15 mg BEDTIME ORAL 08/23/19 21:00 11/21/19 20:59 08/26/19 20:39 Montelukast Sodium (Singulair) 10 mg QPM ORAL 08/19/19 16:30 11/17/19 16:29 08/27/19 15:49 Multivitamins (Multivitamins) 1 tab DAILY ORAL 08/19/19 09:00 09/18/19 08:59 08/27/19 09:28 Ondansetron HCl (Zofran) 4 mg Q6H PRN ORAL Nausea & Vomiting 08/19/19 01:30 09/18/19 01:29 08/27/19 04:11 Oxycodone HCl (Roxicodone) 5 mg Q8H PRN ORAL Severe Pain (Pain Scale 7-10) 08/23/19 19:00 08/30/19 18:59 08/27/19 13:08 Pantoprazole (Protonix) 40 mg DAILY ORAL 08/19/19 09:00 09/18/19 08:59 08/27/19 09:28 Piperacillin Sod/ Tazobactam Sod 3.375 gm/Dextrose 100 ml @ 25 mls/hr Q8H IVPB 08/25/19 23:00 08/27/19 22:59 08/27/19 15:50 Polyethylene Glycol (Miralax) 17 gm DAILY ORAL 08/19/19 09:00 09/18/19 08:59 08/27/19 09:32 Polyethylene Glycol (Miralax) 17 gm DAILYPRN PRN ORAL Constipation 08/18/19 21:00 09/17/19 20:59 08/27/19 16:30 Sennosides (Senokot) 8.6 mg QHS ORAL 08/19/19 21:00 09/18/19 20:59 08/26/19 20:39 Vancomycin HCl (Vanco rx to dose) 1 ea DAILY PRN MISC Per rx protocol 08/21/19 19:30 09/20/19 19:29 Vancomycin HCl 750 mg/Sodium Chloride 275 ml @ 183.333 mls/hr Q12H IVPB 08/26/19 22:00 08/31/19 21:59 08/27/19 09:36 Zinc Sulfate (Zinc Sulfate) 220 mg DAILY ORAL 08/19/19 09:00 11/17/19 08:59 08/27/19 09:29 Nyasia Grover MD Aug 27, 2019 17:36
[2019-08-27 20:00] VITALS: BP 124/60
[2019-08-27] MEDS: Sennosides 8.6mg tab ORAL SCH (20:27)
[2019-08-27] MEDS: Atorvastatin 20mg tab ORAL SCH (20:27)
--- NOTE | 2019-08-27 21:23 | Neurology Progress Note ---
Interim History Interim History ROS Limited/Unobtainable: No Interim History no new erasmo deficits Objective Physical Exam Last Vital Signs Date Time Temp Pulse Resp B/P (MAP) Pulse Ox O2 Delivery O2 Flow Rate FiO2 08/27/19 20:28 78 124/60 08/27/19 19:49 Nasal Cannula 2.0 28 08/27/19 19:48 95 08/27/19 16:00 98.6 19 Laboratory Tests Test 08/27/19 10:30 08/27/19 10:38 White Blood Count 10.2 K/UL (4.8-10.8) Red Blood Count 4.06 M/UL (4.20-5.40) L Hemoglobin 11.9 G/DL (12.0-16.0) L Hematocrit 36.4 % (37.0-47.0) L Mean Corpuscular Volume 90 FL (80-99) Mean Corpuscular Hemoglobin 29.3 PG (27.0-31.0) Mean Corpuscular Hemoglobin Concent 32.7 G/DL (32.0-36.0) Red Cell Distribution Width 12.0 % (11.6-14.8) Platelet Count 386 K/UL (150-450) Mean Platelet Volume 5.5 FL (6.5-10.1) L Neutrophils (%) (Auto) % (45.0-75.0) Lymphocytes (%) (Auto) % (20.0-45.0) Monocytes (%) (Auto) % (1.0-10.0) Eosinophils (%) (Auto) % (0.0-3.0) Basophils (%) (Auto) % (0.0-2.0) Differential Total Cells Counted 100 Neutrophils % (Manual) 53 % (45-75) Lymphocytes % (Manual) 43 % (20-45) Monocytes % (Manual) 3 % (1-10) Eosinophils % (Manual) 1 % (0-3) Basophils % (Manual) 0 % (0-2) Band Neutrophils 0 % (0-8) Platelet Estimate Adequate Platelet Morphology Normal Red Blood Cell Morphology Normal Sodium Level 136 MMOL/L (136-145) Potassium Level 4.6 MMOL/L (3.5-5.1) Chloride Level 98 MMOL/L (98-107) Carbon Dioxide Level 24 MMOL/L (21-32) Anion Gap 14 mmol/L (5-15) Blood Urea Nitrogen 28 mg/dL (7-18) H Creatinine 0.9 MG/DL (0.55-1.30) Estimat Glomerular Filtration Rate > 60 mL/min (>60) Glucose Level 95 MG/DL (74-106) # Calcium Level 9.5 MG/DL (8.5-10.1) Total Bilirubin 0.2 MG/DL (0.2-1.0) Aspartate Amino Transf (AST/SGOT) 19 U/L (15-37) Alanine Aminotransferase (ALT/SGPT) 17 U/L (12-78) Alkaline Phosphatase 88 U/L (46-116) Total Protein 7.4 G/DL (6.4-8.2) Albumin 3.4 G/DL (3.4-5.0) Globulin 4.0 g/dL Albumin/Globulin Ratio 0.9 (1.0-2.7) L General: well nourished Head: normocophalic Neck: no rigidity Neurologic Exam Mental Status: awake Objective moves all 4 symmetric Impression/Recommendations Problems: (1) Hypokalemia (2) Abdominal pain (3) Therapeutic opioid-induced constipation (OIC) (4) Shortness of breath (5) Diastolic CHF (6) Anemia (7) Anxiety (8) Hypercholesteremia (9) Hyponatremia (10) Hypertension (11) Severe sepsis (12) History of breast cancer (13) Respiratory failure with hypoxia (14) Protein-calorie malnutrition, mild (15) GERD (gastroesophageal reflux disease) (16) Cough (17) Dysphagia (18) SOB (shortness of breath) (19) Pleural effusion (20) Renal failure (21) Allergic rhinitis (22) Constipation (23) Osteoporosis (24) Aspiration pneumonia (25) Tracheobronchitis (26) Collapse of left lung (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 (28) Respiratory failure requiring intubation (29) Limited mobility (30) Acute metabolic encephalopathy (31) Decubitus skin ulcer (32) Leukocytosis (33) Gram-negative bacteremia (34) COPD (chronic obstructive pulmonary disease) (35) Chronic respiratory failure with hypoxia (36) Lumbar radiculopathy (37) Fibromyalgia (38) Cervical spondylosis (39) Diastolic CHF, acute on chronic (40) Lumbar spondylosis (41) Acute and chronic respiratory failure ([id number]) (42) Pneumonia (43) Cervical radiculopathy (44) DDD (degenerative disc disease), cervical (45) DDD (degenerative disc disease), lumbar (46) Troponin level elevated (47) UTI (urinary tract infection) Diagnostic Impression acute encephalopathy and gen weakness likely metabolic in the setting of possible covid and resp faikure myalgias GEn pain Depression COVID rule out atb per primary management of fluids nad hyponatremia pt ot delirium precautions Quentin Giron MD Aug 27, 2019 21:23
[2019-08-28] VITALS (7 sets, daily range): BP systolic 120–180; BP diastolic 59–93
[2019-08-28] MEDS: oxyCODONE 5mg IR tab ORAL PRN ×3 (00:06→22:01)
[2019-08-28] MEDS: Ipratropium Bromide Inhaler INH SCH ×5 (01:11→23:17)
--- NOTE | 2019-08-28 01:59 | Progress Note ---
DATE: 08/27/2019 SUBJECTIVE: The patient is still anxious. She stated that she is on many medications, also asking for MiraLax. According to the nurse, the patient had a big bowel movement in the morning. The patient has poor insight, perseverates that she is constipated. In addition, she has severe anxiety, asking for more Ativan, again explained to her that I am avoiding to prescribe her benzodiazepines. The patient's vitals are within normal limits and she is doing well and is stable. She is having med seeking behavior and also asked me that she is on so many medications. MENTAL STATUS EXAMINATION: Show oriented to times, self, place, situation, and date. Mood is neutral. Affect is flat. Thought process is concrete. Thought content, no suicidal or homicidal ideation. ASSESSMENT: 1. Anxiety disorder. 2. Major depressive disorder. PLAN: 1. We will continue the Lexapro. 2. Continue Remeron. 3. DC the Lyrica. Wan Stern M.D. DR: Radha JOB#: [id number] CC:
[2019-08-28] MEDS: Heparin 5000 units/ml inj SUBQ SCH ×3 (06:00→21:43)
[2019-08-28] MEDS: Ascorbic Acid 500mg tab ORAL SCH ×2 (09:00→09:07)
[2019-08-28] MEDS: Dronabinol 2.5mg Cap ORAL SCH ×3 (09:00→17:34)
[2019-08-28] MEDS: Lisinopril 20mg tab ORAL SCH ×2 (09:00→09:07)
[2019-08-28] MEDS: Flonase Nasal Inhaler 16gm NASAL SCH (09:00)
[2019-08-28] MEDS: Aspirin Baby 81mg ORAL SCH ×2 (09:00→09:08)
[2019-08-28] MEDS: Calcium Carbonate 500mg w/Vit D 200iu tab ORAL SCH ×2 (09:00→09:07)
[2019-08-28] MEDS: Miralax 17gm pkt ORAL SCH ×2 (09:00→09:06)
[2019-08-28] MEDS: Zinc Sulfate 220mg cap ORAL SCH ×2 (09:00→09:08)
[2019-08-28] MEDS: Docusate 100mg cap ORAL SCH ×4 (09:00→21:42)
[2019-08-28] MEDS: Magnesium Oxide 400mg tab ORAL SCH ×2 (09:00→09:08)
[2019-08-28] MEDS: Vancomycin 750mg/NS 275ml IVPB SCH ×4 (09:12→11:13)
[2019-08-28] MEDS: Flovent 110mcg Inhaler - 12gm INH SCH (09:30)
--- NOTE | 2019-08-28 09:33 | Nephrology Progress Note ---
Assessment/Plan Plan #Hyponatremia - likely hypovolumic - r/o SIADH in the setting of pulmonary infection- improving #Acute on chronic hypoxic resp failure #Acute bronchitis #Rule out COVID-19 #COPD #HTN #Chronic diastolic CHF #Depression #GERD #Chronic right hydronephrosis #Left hemorrhagic renal cyst #Nephrolithiasis #Hematuria #hypokalemia - repleted - repeat K normalized - monitor BMP - check free T4-> WNL - lisinopril to 40 daily--> will decrease dose back to 20 if K persistently elevated - continue MTP 25 BID, - continue amlodipine 10 qdaily - continue antibiotics per ID - breathing treatment. - ID and Pulm eval - Continue Lexapro- - Continue qhs Mirtazapine - - Continue pregabalin 75 mg BID - Subjective Subjective sodium stable repeat K normalized Bp stable WBC uptrending Breathing stable Objective Objective Last 24 Hour Vital Signs Date Time Temp Pulse Resp B/P (MAP) Pulse Ox O2 Delivery O2 Flow Rate FiO2 08/28/19 09:08 82 128/68 08/28/19 09:07 82 128/68 08/28/19 09:07 128/68 08/28/19 07:03 Nasal Cannula 2.0 28 08/28/19 07:03 95 Nasal Cannula 2.0 28 08/28/19 07:03 Nasal Cannula 2.0 28 08/28/19 04:00 65 08/28/19 04:00 98.1 72 18 142/59 (86) 98 08/28/19 01:11 77 18 96 Nasal Cannula 2.0 28 08/28/19 01:10 77 18 96 Nasal Cannula 2.0 28 08/28/19 00:00 98.9 77 20 150/90 (110) 97 08/27/19 23:37 70 08/27/19 21:00 Nasal Cannula 3.0 08/27/19 20:28 78 124/60 08/27/19 20:00 98.5 78 18 124/60 (81) 98 08/27/19 19:49 Nasal Cannula 2.0 28 08/27/19 19:49 Nasal Cannula 2.0 28 08/27/19 19:48 95 Nasal Cannula 2.0 28 08/27/19 19:41 73 08/27/19 16:00 98.6 69 19 125/57 (79) 97 08/27/19 16:00 79 08/27/19 13:19 74 18 96 Nasal Cannula 2.0 28 08/27/19 13:19 74 18 96 Nasal Cannula 2.0 28 08/27/19 12:00 78 08/27/19 12:00 98.2 84 20 123/71 (88) 96 Intake and Output 08/27/19 08/28/19 19:00 07:00 Output Total 960 ml Balance -960 ml Output Urine Total 960 ml # Voids 2 # Bowel Movements 1 1 Laboratory Tests 08/27/19 10:30: White Blood Count 10.2, Red Blood Count 4.06L, Hemoglobin 11.9L, Hematocrit 36.4L, Mean Corpuscular Volume 90, Mean Corpuscular Hemoglobin 29.3, Mean Corpuscular Hemoglobin Concent 32.7, Red Cell Distribution Width 12.0, Platelet Count 386, Mean Platelet Volume 5.5L, Neutrophils (%) (Auto) , Lymphocytes (%) ( Auto) , Monocytes (%) (Auto) , Eosinophils (%) (Auto) , Basophils (%) (Auto) , Differential Total Cells Counted 100, Neutrophils % (Manual) 53, Lymphocytes % ( Manual) 43, Monocytes % (Manual) 3, Eosinophils % (Manual) 1, Basophils % ( Manual) 0, Band Neutrophils 0, Platelet Estimate Adequate, Platelet Morphology Normal, Red Blood Cell Morphology Normal 08/27/19 10:38: Sodium Level 136, Potassium Level 4.6, Chloride Level 98, Carbon Dioxide Level 24, Anion Gap 14, Blood Urea Nitrogen 28H, Creatinine 0.9, Estimat Glomerular Filtration Rate > 60, Glucose Level 95#, Calcium Level 9.5, Total Bilirubin 0.2 , Aspartate Amino Transf (AST/SGOT) 19, Alanine Aminotransferase (ALT/SGPT) 17, Alkaline Phosphatase 88, Total Protein 7.4, Albumin 3.4, Globulin 4.0, Albumin/ Globulin Ratio 0.9L Height (Feet): 5 Height (Inches): 0.00 Weight (Pounds): 123 Salma Ibanez M.D. Aug 28, 2019 09:33
--- NOTE | 2019-08-28 11:32 | Pulmonology Progress Note ---
Assessment/Plan Assessment/Plan ASSESSMENT: The patient is a 78-year-old female with a history of COPD, diastolic dysfunction, CHF, breast cancer, anemia, admitted with COVID 19 PNA PROBLEM LIST: 1. COVID19 PNA 2. Acute hypoxemic respiratory failure. 3. COPD. ic dysfunction. 5. History of mucus plugging. 6. History of breast cancer. 7. Anemia. 8. Hyponatremia. 9. Dementia. 10. 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 11. Dysphagia. TREATMENT PLAN: 1. Optimize pulmonary hygiene/mobilize as tolerated. 2. Titrate down FiO2 to keep saturations greater than 90%. 3. Vujzp-khp-hlghz and p.r.n. albuterol and Atrovent metered-dose inhalers via spacer. 4. Completed Plaquenil (D5/5) 5. Off steroids 6. ? to complete Abx today per ID, 08/25 COVID PCR neg, awaiting one more prior to removing isolation 7. Monitor volumes and renal function. 8. DVT prophylaxis, heparin subcu. 9. Continue Singulair. 10. Continue fluticasone inhaler b.i.d. 11. Continue Tessalon t.i.d. p.r.n. 12. Continue Mucinex and p.r.n. Robitussin. D/W patient D/W RN Subjective Allergies: Coded Allergies: Antelope (Unverified Allergy, Mild, upset stomach, 02/10/19) TOMATO (Unverified Allergy, Mild, upset stomach, 02/10/19) TETRACYCLINE (Unverified Allergy, Unknown, 07/24/14) Subjective NAEO AFVSS on 2L denies cough or SOB no FC no CP Refused inhalers 08/25 COVID PCR neg Objective Last 24 Hour Vital Signs Date Time Temp Pulse Resp B/P (MAP) Pulse Ox O2 Delivery O2 Flow Rate FiO2 08/28/19 09:00 Nasal Cannula 3.0 08/28/19 08:00 83 08/28/19 08:00 97.9 82 20 128/68 (88) 98 08/28/19 07:03 Nasal Cannula 2.0 28 08/28/19 07:03 95 Nasal Cannula 2.0 28 08/28/19 07:03 Nasal Cannula 2.0 28 08/28/19 04:00 65 08/28/19 04:00 98.1 72 18 142/59 (86) 98 08/28/19 01:11 77 18 96 Nasal Cannula 2.0 28 08/28/19 01:10 77 18 96 Nasal Cannula 2.0 28 08/28/19 00:00 98.9 77 20 150/90 (110) 97 08/27/19 23:37 70 08/27/19 21:00 Nasal Cannula 3.0 08/27/19 20:28 78 124/60 08/27/19 20:00 98.5 78 18 124/60 (81) 98 08/27/19 19:49 Nasal Cannula 2.0 28 08/27/19 19:49 Nasal Cannula 2.0 28 08/27/19 19:48 95 Nasal Cannula 2.0 28 08/27/19 19:41 73 08/27/19 16:00 98.6 69 19 125/57 (79) 97 08/27/19 16:00 79 08/27/19 13:19 74 18 96 Nasal Cannula 2.0 28 08/27/19 13:19 74 18 96 Nasal Cannula 2.0 28 08/27/19 12:00 78 08/27/19 12:00 98.2 84 20 123/71 (88) 96 Intake and Output 08/27/19 08/28/19 19:00 07:00 Output Total 960 ml Balance -960 ml Output Urine Total 960 ml # Voids 2 # Bowel Movements 1 1 Objective Deferred 2/2 COVID isolation, PPE requirements, no distress, not coughing, less confused, awake and alert Microbiology Date/Time Source Procedure Growth Status 08/26/19 11:15 Nasopharynx Coronavirus COVID-19 PCR ([facility]) - Final Complete Current Medications Medications (Trade) Dose Ordered Sig/Wilner Route PRN Reason Start Time Stop Time Status Last Admin Dose Admin Acetaminophen (Tylenol) 650 mg Q4H PRN ORAL Mild Pain (Pain Scale 1-3) 08/19/19 01:30 09/18/19 01:29 08/28/19 09:07 Al Hydroxide/Mg Hydroxide (Mylanta II) 20 ml Q4H PRN ORAL INDIGESTION 08/19/19 01:30 09/18/19 01:29 08/26/19 18:52 Albuterol Sulfate (Proventil MDI) 2 puff Q6HRT PRN INH Shortness of Breath 08/19/19 03:15 11/17/19 03:14 08/25/19 05:47 Amlodipine Besylate (Norvasc) 10 mg DAILY ORAL 08/19/19 09:00 09/18/19 08:59 08/27/19 09:28 Ascorbic Acid (Vitamin C) 500 mg DAILY ORAL 08/19/19 09:00 09/18/19 08:59 08/27/19 09:29 Aspirin (ASA) 81 mg DAILY ORAL 08/19/19 09:00 10/03/19 08:59 08/27/19 09:29 Atorvastatin Calcium (Lipitor) 40 mg BEDTIME ORAL 08/19/19 21:00 11/17/19 20:59 08/27/19 20:27 Benzonatate (Tessalon Perles) 100 mg TIDPRN PRN ORAL cough 08/18/19 21:15 09/17/19 21:14 08/25/19 15:06 Bisacodyl (Dulcolax) 10 mg DAILY PRN RECTAL Constipation 08/19/19 01:30 11/17/19 01:29 Calcium/Vitamin D (OsCal D) 1 tab DAILY ORAL 08/19/19 09:00 11/17/19 08:59 08/27/19 09:29 Dextrose (Dextrose 50%) 25 ml Q30M PRN IV Hypoglycemia 08/18/19 21:00 11/16/19 20:59 Dextrose (Dextrose 50%) 50 ml Q30M PRN IV Hypoglycemia 08/18/19 21:00 11/16/19 20:59 Docusate Sodium (Colace) 100 mg EVERY 12 HOURS ORAL 08/18/19 21:00 09/17/19 20:59 08/27/19 20:27 Dronabinol (Marinol) 2.5 mg BID ORAL 08/19/19 09:00 11/17/19 08:59 08/27/19 17:40 Ferrous Sulfate (Feosol) 325 mg DAILY ORAL 08/19/19 09:00 11/17/19 08:59 08/27/19 09:30 Fluticasone Propionate (Flonase) 1 spray DAILY NASAL 08/19/19 09:00 09/18/19 08:59 08/27/19 09:00 Fluticasone Propionate (Flovent 110 mcg) 2 puff DAILY INH 08/19/19 09:00 09/18/19 08:59 08/27/19 09:38 Heparin Sodium (Porcine) (Heparin 5000 units/ml) 5,000 units EVERY 8 HOURS SUBQ 08/19/19 00:00 10/03/19 00:00 08/27/19 13:08 Hydralazine HCl (Apresoline) 10 mg Q6H PRN ORAL For High Blood Pressure 08/19/19 01:30 11/17/19 01:29 08/26/19 16:33 Ipratropium [place] (Atrovent Inh) 1 puffs Q6HRT INH 08/19/19 07:00 09/18/19 06:59 08/28/19 01:11 Lactulose (Cephulac) 20 gm DAILY PRN ORAL Constipation 08/19/19 01:30 09/18/19 01:29 08/25/19 15:07 Lisinopril (PriniviL) 40 mg DAILY ORAL 08/26/19 09:00 09/18/19 08:59 08/27/19 09:32 Magnesium Oxide (Mag-Ox 400mg) 200 mg DAILY ORAL 08/19/19 09:00 09/18/19 08:59 08/27/19 09:30 Metoprolol Tartrate (Lopressor) 37.5 mg Q12HR ORAL 08/26/19 21:00 11/17/19 08:59 08/27/19 20:28 Mirtazapine (Remeron) 15 mg BEDTIME ORAL 08/23/19 21:00 11/21/19 20:59 08/27/19 20:27 Montelukast Sodium (Singulair) 10 mg QPM ORAL 08/19/19 16:30 11/17/19 16:29 08/27/19 15:49 Multivitamins (Multivitamins) 1 tab DAILY ORAL 08/19/19 09:00 09/18/19 08:59 08/27/19 09:28 Ondansetron HCl (Zofran) 4 mg Q6H PRN ORAL Nausea & Vomiting 08/19/19 01:30 09/18/19 01:29 08/28/19 11:23 Oxycodone HCl (Roxicodone) 5 mg Q8H PRN ORAL Severe Pain (Pain Scale 7-10) 08/23/19 19:00 08/30/19 18:59 08/28/19 11:23 Pantoprazole (Protonix) 40 mg DAILY ORAL 08/19/19 09:00 09/18/19 08:59 08/27/19 09:28 Piperacillin Sod/ Tazobactam Sod 3.375 gm/Dextrose 100 ml @ 25 mls/hr Q8H IVPB 08/27/19 23:00 08/29/19 22:59 08/28/19 06:54 Polyethylene Glycol (Miralax) 17 gm DAILY ORAL 08/19/19 09:00 09/18/19 08:59 08/27/19 09:32 Polyethylene Glycol (Miralax) 17 gm DAILYPRN PRN ORAL Constipation 08/18/19 21:00 09/17/19 20:59 08/27/19 16:30 Sennosides (Senokot) 8.6 mg QHS ORAL 08/19/19 21:00 09/18/19 20:59 08/27/19 20:27 Vancomycin HCl (Vanco rx to dose) 1 ea DAILY PRN MISC Per rx protocol 08/21/19 19:30 09/20/19 19:29 Vancomycin HCl 750 mg/Sodium Chloride 275 ml @ 183.333 mls/hr Q12H IVPB 08/26/19 22:00 08/31/19 21:59 08/28/19 11:13 Zinc Sulfate (Zinc Sulfate) 220 mg DAILY ORAL 08/19/19 09:00 11/17/19 08:59 08/27/19 09:29 Rafael Lerma MD Aug 28, 2019 11:32
--- NOTE | 2019-08-28 13:24 | General Progress Note ---
Assessment/Plan Assessment/Plan: 78 year old woman SNF resident with chronic resp failure due to COPD, HTN, chronic dCHF, chronic pain, depression, anxiety, chronic right hydronephrosis who presented from SNF with dyspnea, cough body aches, COVID-19 positive #Acute on chronic hypoxic resp failure, 2L O2 dependant #Acute bronchitis #HCAP #COVID-19 POSITIVE #COPD -cont. inpatient medical care -Inhaled bronchodilators prn -Continue supplemental oxygen -COVID-19 positive -abx per ID: s/p vanc/zosyn day #11/14, s/p hydroxychloroquine #09/12, s/p azithro #09/12 -Observe off antibiotics -ID and Pulm consulted, recs appreciated -08/23 repeat COVID w/indeterminate abnormal -Pending COVID neg x 2 for discharge back to [facility] #Hyponatremia - resolved #Hypokalemia -replaced, ctm, replace PRN -Nephro following, recs appreciated #HTN #Chronic diastolic CHF -Cont outpatient meds lisinopril 20 daily, MTP 25 BID, amlodipine 10 q daily #Depression #Chronic pain #Anxiety disorder #Osteoarthritis -Continue qhs Mirtazapine. -Continue pregabalin 75 mg BID -Continue home Dronabinol 2.5 mg BID -Continue Clonazepam 0.5 mg BID -Continue Oxycodone 5 mg q12h prn -Psych consulted - recs appreciated #GERD -cont. PPI #Chronic right hydronephrosis #Left hemorrhagic renal cyst #Nephrolithiasis #Hematuria I spent 35 minutes on this patient's case, and 25 minutes was dedicated to counseling and/or care coordination witch included communication with RN, consulting MDs, case management Subjective Date patient seen: Aug 28, 2019 Time patient seen: 13:19 ROS Limited/Unobtainable: No Constitutional: Denies: chills Cardiovascular: Denies: chest pain Respiratory: Denies: cough Gastrointestinal/Abdominal: Denies: abdominal pain Genitourinary: Denies: burning Allergies: Coded Allergies: [place] (Unverified Allergy, Mild, upset stomach, 02/10/19) TOMATO (Unverified Allergy, Mild, upset stomach, 02/10/19) TETRACYCLINE (Unverified Allergy, Unknown, 07/24/14) Subjective Follow up for COVID-19/coronavirus infection No acute issues overnight Oxygenating well Awaiting 2 neg coronavirus PCRs for discharge back to [facility] Objective Last 24 Hour Vital Signs Date Time Temp Pulse Resp B/P (MAP) Pulse Ox O2 Delivery O2 Flow Rate FiO2 08/28/19 09:00 Nasal Cannula 3.0 08/28/19 08:00 83 08/28/19 08:00 97.9 82 20 128/68 (88) 98 08/28/19 07:03 Nasal Cannula 2.0 28 08/28/19 07:03 95 Nasal Cannula 2.0 28 08/28/19 07:03 Nasal Cannula 2.0 28 08/28/19 04:00 65 08/28/19 04:00 98.1 72 18 142/59 (86) 98 08/28/19 01:11 77 18 96 Nasal Cannula 2.0 28 08/28/19 01:10 77 18 96 Nasal Cannula 2.0 28 08/28/19 00:00 98.9 77 20 150/90 (110) 97 08/27/19 23:37 70 08/27/19 21:00 Nasal Cannula 3.0 08/27/19 20:28 78 124/60 08/27/19 20:00 98.5 78 18 124/60 (81) 98 08/27/19 19:49 Nasal Cannula 2.0 28 08/27/19 19:49 Nasal Cannula 2.0 28 08/27/19 19:48 95 Nasal Cannula 2.0 28 08/27/19 19:41 73 08/27/19 16:00 98.6 69 19 125/57 (79) 97 08/27/19 16:00 79 Intake and Output 08/27/19 08/28/19 19:00 07:00 Output Total 960 ml Balance -960 ml Output Urine Total 960 ml # Voids 2 # Bowel Movements 1 1 Height (Feet): 5 Height (Inches): 0.00 Weight (Pounds): 123 General Appearance: alert Neck: normal alignment, supple Cardiovascular: normal rate, regular rhythm Respiratory/Chest: lungs clear, normal breath sounds Anjum Macedo MD Aug 28, 2019 13:24
[2019-08-28 13:52] LABS: EOSINOPHILS % (AUTO) 0.8 % (0.0-3.0); HEMATOCRIT 33.4 % (37.0-47.0); HEMOGLOBIN 11.1 G/DL (12.0-16.0); MEAN CORPUSCULAR VOLUME 90 FL (80-99); NEUTROPHILS % (AUTO) 70.2 % (45.0-75.0); PLATELET COUNT 272 K/UL (150-450); RED BLOOD COUNT 3.72 M/UL (4.20-5.40); RED CELL DISTRIBUTION WIDTH 12.2 % (11.6-14.8); WHITE BLOOD COUNT 13.9 K/UL (4.8-10.8)
[2019-08-28 14:08] LABS: ANION GAP 11 mmol/L (5-15); BLOOD UREA NITROGEN 21 mg/dL (7-18); CALCIUM 8.9 MG/DL (8.5-10.1); CARBON DIOXIDE 27 MMOL/L (21-32); CHLORIDE 99 MMOL/L (98-107); CREATININE 0.7 MG/DL (0.55-1.30); POTASSIUM 4.1 MMOL/L (3.5-5.1); SODIUM 137 MMOL/L (136-145)
[2019-08-28] MEDS: Montelukast 10mg tablet ORAL SCH (15:59)
--- NOTE | 2019-08-28 20:20 | Neurology Progress Note ---
Interim History Interim History ROS Limited/Unobtainable: No Interim History no new neuro deficits Objective Physical Exam Last Vital Signs Date Time Temp Pulse Resp B/P (MAP) Pulse Ox O2 Delivery O2 Flow Rate FiO2 08/28/19 16:00 104 08/28/19 16:00 98.1 20 123/80 (94) 98 08/28/19 09:00 Nasal Cannula 3.0 08/28/19 07:03 28 Laboratory Tests Test 08/28/19 13:00 White Blood Count 13.9 K/UL (4.8-10.8) H Red Blood Count 3.72 M/UL (4.20-5.40) L Hemoglobin 11.1 G/DL (12.0-16.0) L Hematocrit 33.4 % (37.0-47.0) L Mean Corpuscular Volume 90 FL (80-99) Mean Corpuscular Hemoglobin 29.7 PG (27.0-31.0) Mean Corpuscular Hemoglobin Concent 33.1 G/DL (32.0-36.0) Red Cell Distribution Width 12.2 % (11.6-14.8) Platelet Count 272 K/UL (150-450) Mean Platelet Volume 6.7 FL (6.5-10.1) Neutrophils (%) (Auto) 70.2 % (45.0-75.0) Lymphocytes (%) (Auto) 21.0 % (20.0-45.0) Monocytes (%) (Auto) 7.0 % (1.0-10.0) Eosinophils (%) (Auto) 0.8 % (0.0-3.0) Basophils (%) (Auto) 1.0 % (0.0-2.0) Sodium Level 137 MMOL/L (136-145) Potassium Level 4.1 MMOL/L (3.5-5.1) Chloride Level 99 MMOL/L (98-107) Carbon Dioxide Level 27 MMOL/L (21-32) Anion Gap 11 mmol/L (5-15) Blood Urea Nitrogen 21 mg/dL (7-18) H Creatinine 0.7 MG/DL (0.55-1.30) Estimat Glomerular Filtration Rate > 60 mL/min (>60) Glucose Level 97 MG/DL (74-106) Calcium Level 8.9 MG/DL (8.5-10.1) General: well nourished Head: normocophalic Neck: no rigidity Neurologic Exam Mental Status: awake Objective moves all 4 symmetric Impression/Recommendations Problems: (1) Hypokalemia (2) Abdominal pain (3) Therapeutic opioid-induced constipation (OIC) (4) Shortness of breath (5) Diastolic CHF (6) Anemia (7) Anxiety (8) Hypercholesteremia (9) Hyponatremia (10) Hypertension (11) Severe sepsis (12) History of breast cancer (13) Respiratory failure with hypoxia (14) Protein-calorie malnutrition, mild (15) GERD (gastroesophageal reflux disease) (16) Cough (17) Dysphagia (18) SOB (shortness of breath) (19) Pleural effusion (20) Renal failure (21) Allergic rhinitis (22) Constipation (23) Osteoporosis (24) Aspiration pneumonia (25) Tracheobronchitis (26) Collapse of left lung (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 (28) Respiratory failure requiring intubation (29) Limited mobility (30) Acute metabolic encephalopathy (31) Decubitus skin ulcer (32) Leukocytosis (33) Gram-negative bacteremia (34) COPD (chronic obstructive pulmonary disease) (35) Chronic respiratory failure with hypoxia (36) Lumbar radiculopathy (37) Fibromyalgia (38) Cervical spondylosis (39) Diastolic CHF, acute on chronic (40) Lumbar spondylosis (41) Acute and chronic respiratory failure ([id number]) (42) Pneumonia (43) Cervical radiculopathy (44) DDD (degenerative disc disease), cervical (45) DDD (degenerative disc disease), lumbar (46) Troponin level elevated (47) UTI (urinary tract infection) Diagnostic Impression acute encephalopathy and gen weakness likely metabolic in the setting of possible covid and resp faikure myalgias GEn pain Depression COVID rule out atb per primary management of fluids nad hyponatremia pt ot delirium precautions Quentin Giron MD Aug 28, 2019 20:20
[2019-08-28] MEDS: Atorvastatin 20mg tab ORAL SCH (21:00)
[2019-08-28] MEDS: Sennosides 8.6mg tab ORAL SCH (21:00)
[2019-08-28] MEDS ORDERED: Benzonatate 100mg Perles ORAL PRN (21:15)
[2019-08-28] MEDS ORDERED: Sennosides 8.6mg tab ORAL SCH (22:00)
[2019-08-29] MEDS: Ipratropium Bromide Inhaler INH SCH ×4 (01:00→19:56)
[2019-08-29] MEDS ORDERED: Albuterol 90mcg Inhaler 8gm INH PRN (01:00)
[2019-08-29] MEDS ORDERED: HydrALAZINE 10mg Tab ORAL PRN (01:30)
--- NOTE | 2019-08-29 01:59 | Progress Note ---
DATE: 08/28/2019 SUBJECTIVE: The patient is in isolation, doing better, recovering. Compliant with medications. No behavioral issues. MENTAL STATUS EXAMINATION: Alert and oriented to time, self, place, situation. Mood is anxious. Affect is constricted, congruent. Thought process is concrete. Thought content, no suicidal, homicidal ideation. ASSESSMENT: Stable. PLAN: 1. We will continue current medication. 2. Provide the patient with reality orientation and supportive therapy. Wan Stern M.D. DR: DAIN JOB#: [id number] CC:
[2019-08-29] MEDS ORDERED: oxyCODONE 5mg IR tab ORAL PRN (03:00)
[2019-08-29 04:00] VITALS: BP 147/75
[2019-08-29] MEDS: oxyCODONE 5mg IR tab ORAL PRN (05:53)
[2019-08-29] MEDS: Heparin 5000 units/ml inj SUBQ SCH ×3 (05:54→21:33)
[2019-08-29 08:00] VITALS: BP 168/70
[2019-08-29 08:52] LABS: BASOPHILS % (AUTO) 1.8 % (0.0-2.0); EOSINOPHILS % (AUTO) 0.7 % (0.0-3.0); HEMATOCRIT 35.3 % (37.0-47.0); HEMOGLOBIN 11.8 G/DL (12.0-16.0); LYMPHOCYTES % (AUTO) 24.3 % (20.0-45.0); MEAN CORPUSCULAR VOLUME 89 FL (80-99); MONOCYTES % (AUTO) 6.8 % (1.0-10.0); NEUTROPHILS % (AUTO) 66.3 % (45.0-75.0); PLATELET COUNT 408 K/UL (150-450); RED BLOOD COUNT 3.98 M/UL (4.20-5.40); RED CELL DISTRIBUTION WIDTH 11.9 % (11.6-14.8); WHITE BLOOD COUNT 11.1 K/UL (4.8-10.8)
[2019-08-29 08:57] LABS: ANION GAP 7 mmol/L (5-15); BLOOD UREA NITROGEN 17 mg/dL (7-18); CALCIUM 9.7 MG/DL (8.5-10.1); CARBON DIOXIDE 29 MMOL/L (21-32); CHLORIDE 93 MMOL/L (98-107); CREATININE 0.7 MG/DL (0.55-1.30); POTASSIUM 4.1 MMOL/L (3.5-5.1); SODIUM 129 MMOL/L (136-145)
[2019-08-29] MEDS: Zinc Sulfate 220mg cap ORAL SCH (09:00)
[2019-08-29] MEDS: Miralax 17gm pkt ORAL SCH (09:00)
[2019-08-29] MEDS: Dronabinol 2.5mg Cap ORAL SCH ×2 (09:00→17:12)
[2019-08-29] MEDS: Docusate 100mg cap ORAL SCH ×2 (09:00→21:31)
[2019-08-29] MEDS: Flonase Nasal Inhaler 16gm NASAL SCH (09:00)
[2019-08-29] MEDS: Flovent 110mcg Inhaler - 12gm INH SCH (09:00)
[2019-08-29] MEDS: Ascorbic Acid 500mg tab ORAL SCH (09:00)
[2019-08-29] MEDS: Calcium Carbonate 500mg w/Vit D 200iu tab ORAL SCH (09:00)
[2019-08-29] MEDS: Aspirin Baby 81mg ORAL SCH (09:00)
[2019-08-29] MEDS ORDERED: Lactulose 20gm/30ml UDC ORAL PRN (09:00)
[2019-08-29] MEDS: Magnesium Oxide 400mg tab ORAL SCH (09:00)
[2019-08-29] MEDS: Lisinopril 20mg tab ORAL SCH (09:00)
--- NOTE | 2019-08-29 09:54 | General Progress Note ---
Assessment/Plan Assessment/Plan: 78 year old woman SNF resident with chronic resp failure due to COPD, HTN, chronic dCHF, chronic pain, depression, anxiety, chronic right hydronephrosis who presented from SNF with dyspnea, cough body aches, COVID-19 positive #Acute on chronic hypoxic resp failure, 2L O2 dependant #Acute bronchitis #HCAP #COVID-19 POSITIVE #COPD -cont. inpatient medical care -Inhaled bronchodilators prn -Continue supplemental oxygen -COVID-19 positive -Will defer systemic steroid use to Pulm -abx per ID: [email or web address] day #10/15, s/p hydroxychloroquine #09/12, s/p azithro #09/12 -ID and Pulm consulted, recs appreciated -08/23 repeat COVID w/indeterminate abnormal -08/25 COVID NEGATIVE -pending second negative COVID -will need two negative tests for safe d/c back to SNF #Hyponatremia #Hypokalemia -replaced, ctm, replace PRN -likely hypovolumic -pt refused PO potassium -instructed pt to take supplement, pt expressed understanding and will comply -Nephro following, recs appreciated #HTN #Chronic diastolic CHF -Cont outpatient meds lisinopril 20 daily, MTP 25 BID, amlodipine 10 q daily #Depression #Chronic pain #Anxiety disorder #Osteoarthritis -Continue qhs Mirtazapine. -Continue pregabalin 75 mg BID -Continue home Dronabinol 2.5 mg BID -Continue Clonazepam 0.5 mg BID -Continue Oxycodone 5 mg q12h prn -Psych consulted - recs appreciated #GERD -cont. PPI #Chronic right hydronephrosis #Left hemorrhagic renal cyst #Nephrolithiasis #Hematuria Time spent on encounter: 36 mins, 20 mins spent on pt counseling regarding POC and dispo planning. Updated RN. Time of note doesn't reflect time of encounter. Subjective Allergies: Coded Allergies: [place] (Unverified Allergy, Mild, upset stomach, 02/10/19) TOMATO (Unverified Allergy, Mild, upset stomach, 02/10/19) TETRACYCLINE (Unverified Allergy, Unknown, 07/24/14) Subjective Follow-up for acute on chronic hypoxic respiratory failure. COVID Positive. Repeat COVID 08/25 negative, pending second negative. Na low today. States she is "OK" today, denies SOB. Objective Last 24 Hour Vital Signs Date Time Temp Pulse Resp B/P (MAP) Pulse Ox O2 Delivery O2 Flow Rate FiO2 08/29/19 09:38 Nasal Cannula 2.0 28 08/29/19 09:38 Nasal Cannula 2.0 28 08/29/19 09:38 95 Nasal Cannula 2.0 28 08/29/19 09:00 168 70/70 08/29/19 09:00 168/70 08/29/19 09:00 106 168/70 08/29/19 08:00 98.0 106 19 168/70 (102) 95 08/29/19 04:00 98.9 80 20 147/75 (99) 94 08/29/19 01:00 Nasal Cannula 2.0 28 08/29/19 01:00 Nasal Cannula 2.0 28 08/28/19 23:45 98.7 109 20 161/90 (113) 93 08/28/19 21:42 112 180/79 08/28/19 21:00 Nasal Cannula 3.0 08/28/19 20:30 98.9 123 20 180/93 (122) 94 08/28/19 20:00 Nasal Cannula 2.0 28 08/28/19 20:00 114 08/28/19 20:00 93 Nasal Cannula 2.0 28 08/28/19 20:00 Nasal Cannula 2.0 28 08/28/19 16:00 104 08/28/19 16:00 98.1 78 20 123/80 (94) 98 08/28/19 12:00 85 08/28/19 12:00 97.0 81 20 120/78 (92) 96 Intake and Output 08/28/19 08/29/19 19:00 07:00 # Voids 4 Laboratory Tests 08/28/19 13:00: White Blood Count 13.9H, Red Blood Count 3.72L, Hemoglobin 11.1L, Hematocrit 33.4L, Mean Corpuscular Volume 90, Mean Corpuscular Hemoglobin 29.7, Mean Corpuscular Hemoglobin Concent 33.1, Red Cell Distribution Width 12.2, Platelet Count 272, Mean Platelet Volume 6.7, Neutrophils (%) (Auto) 70.2, Lymphocytes (% ) (Auto) 21.0, Monocytes (%) (Auto) 7.0, Eosinophils (%) (Auto) 0.8, Basophils ( %) (Auto) 1.0, Sodium Level 137, Potassium Level 4.1, Chloride Level 99, Carbon Dioxide Level 27, Anion Gap 11, Blood Urea Nitrogen 21H, Creatinine 0.7, Estimat Glomerular Filtration Rate > 60, Glucose Level 97, Calcium Level 8.9 08/29/19 08:20: White Blood Count 11.1H, Red Blood Count 3.98L, Hemoglobin 11.8L, Hematocrit 35.3L, Mean Corpuscular Volume 89, Mean Corpuscular Hemoglobin 29.7, Mean Corpuscular Hemoglobin Concent 33.4, Red Cell Distribution Width 11.9, Platelet Count 408, Mean Platelet Volume 5.8L, Neutrophils (%) (Auto) 66.3, Lymphocytes ( %) (Auto) 24.3, Monocytes (%) (Auto) 6.8, Eosinophils (%) (Auto) 0.7, Basophils (%) (Auto) 1.8, Sodium Level 129L, Potassium Level 4.1, Chloride Level 93L, Carbon Dioxide Level 29, Anion Gap 7, Blood Urea Nitrogen 17, Creatinine 0.7, Estimat Glomerular Filtration Rate > 60, Glucose Level 86, Calcium Level 9.7 Height (Feet): 5 Height (Inches): 0.00 Weight (Pounds): 123 Objective General Appearance: NAD, on 2L NC, appears comfortable laying in bed HEENT: atraumatic, anicteric, EOMi, dry MM Neck: normal alignment, supple Respiratory/Chest: CTAB, no respiratory distress, no accessory muscle use Cardiovascular/Chest: normal rate, regular rhythm Abdomen: non tender, soft, +BS, no guarding/rebound Ext: no edema Morgan Lutz M.D. Aug 29, 2019 09:54
--- NOTE | 2019-08-29 11:04 | Diagnostic Imaging Report ---
Indication: Shortness of breath Technique: One view of the chest Comparison: 08/25/2025 Findings: The heart is enlarged. There is left lung volume loss and retrocardiac and perihilar consolidation, although aeration of the left mid and lower lung appears somewhat improved as compared to prior study. Hazy right basilar opacity is unchanged. Surgical clips in the right mediastinum and right axilla remain. Impression: Interim slight improvement the persistence of left lung consolidation. Persistent left lung volume loss. Persistent hazy right basilar parenchymal opacity Stable cardiomegaly.
[2019-08-29 12:00] VITALS: BP 156/90
[2019-08-29 16:00] VITALS: BP 150/98
--- NOTE | 2019-08-29 17:02 | Pulmonology Progress Note ---
Assessment/Plan Assessment/Plan ASSESSMENT: The patient is a 78-year-old female with a history of COPD, diastolic dysfunction, CHF, breast cancer, anemia, admitted with COVID 19 PNA PROBLEM LIST: 1. COVID19 PNA 2. Acute hypoxemic respiratory failure. 3. COPD. ic dysfunction. 5. History of mucus plugging. 6. History of breast cancer. 7. Anemia. 8. Hyponatremia. 9. Dementia. 10. 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 11. Dysphagia. TREATMENT PLAN: 1. Optimize pulmonary hygiene/mobilize as tolerated. 2. Titrate down FiO2 to keep saturations greater than 90%. 3. Wxtfi-lbd-leiqm and p.r.n. albuterol and Atrovent metered-dose inhalers via spacer. 4. Completed Plaquenil (D5/5) 5. Off steroids 6. Monitor off Abx per ID, 08/25 COVID PCR neg, awaiting one more prior to removing isolation 7. Monitor volumes and renal function. 8. DVT prophylaxis, heparin subcu. 9. Continue Singulair. 10. Continue fluticasone inhaler b.i.d. 11. Continue Tessalon t.i.d. p.r.n. 12. Continue Mucinex and p.r.n. Robitussin. D/W patient D/W RN Subjective Allergies: Coded Allergies: [place] (Unverified Allergy, Mild, upset stomach, 02/10/19) TOMATO (Unverified Allergy, Mild, upset stomach, 02/10/19) TETRACYCLINE (Unverified Allergy, Unknown, 07/24/14) Subjective NAEO AFVSS on 2L denies cough or SOB no FC no CP TTF Objective Last 24 Hour Vital Signs Date Time Temp Pulse Resp B/P (MAP) Pulse Ox O2 Delivery O2 Flow Rate FiO2 08/29/19 16:00 98.9 101 20 150/98 (115) 95 08/29/19 13:06 Nasal Cannula 2.0 28 08/29/19 13:05 Nasal Cannula 2.0 28 08/29/19 12:00 98.0 97 19 156/90 (112) 95 08/29/19 09:38 Nasal Cannula 2.0 28 08/29/19 09:38 Nasal Cannula 2.0 28 08/29/19 09:38 95 Nasal Cannula 2.0 28 08/29/19 09:00 Nasal Cannula 3.0 08/29/19 09:00 168 70/70 08/29/19 09:00 168/70 08/29/19 09:00 106 168/70 08/29/19 08:00 98.0 106 19 168/70 (102) 95 08/29/19 04:00 98.9 80 20 147/75 (99) 94 08/29/19 01:00 Nasal Cannula 2.0 28 08/29/19 01:00 Nasal Cannula 2.0 28 08/28/19 23:45 98.7 109 20 161/90 (113) 93 08/28/19 21:42 112 180/79 08/28/19 21:00 Nasal Cannula 3.0 08/28/19 20:30 98.9 123 20 180/93 (122) 94 08/28/19 20:00 Nasal Cannula 2.0 28 08/28/19 20:00 114 08/28/19 20:00 93 Nasal Cannula 2.0 28 08/28/19 20:00 Nasal Cannula 2.0 28 Intake and Output 08/28/19 08/29/19 19:00 07:00 # Voids 4 Objective Deferred 2/2 COVID isolation, PPE requirements, no distress, not coughing, less confused, awake and alert Laboratory Tests 08/29/19 08:20: White Blood Count 11.1H, Red Blood Count 3.98L, Hemoglobin 11.8L, Hematocrit 35.3L, Mean Corpuscular Volume 89, Mean Corpuscular Hemoglobin 29.7, Mean Corpuscular Hemoglobin Concent 33.4, Red Cell Distribution Width 11.9, Platelet Count 408, Mean Platelet Volume 5.8L, Neutrophils (%) (Auto) 66.3, Lymphocytes ( %) (Auto) 24.3, Monocytes (%) (Auto) 6.8, Eosinophils (%) (Auto) 0.7, Basophils (%) (Auto) 1.8, Sodium Level 129L, Potassium Level 4.1, Chloride Level 93L, Carbon Dioxide Level 29, Anion Gap 7, Blood Urea Nitrogen 17, Creatinine 0.7, Estimat Glomerular Filtration Rate > 60, Glucose Level 86, Calcium Level 9.7 Current Medications Medications (Trade) Dose Ordered Sig/Wilner Route PRN Reason Start Time Stop Time Status Last Admin Dose Admin Acetaminophen (Tylenol) 650 mg Q4H PRN ORAL Mild Pain (Pain Scale 1-3) 08/28/19 21:30 09/18/19 01:29 Al Hydroxide/Mg Hydroxide (Mylanta II) 20 ml Q4H PRN ORAL INDIGESTION 08/28/19 21:30 09/18/19 01:29 Albuterol Sulfate (Proventil MDI) 2 puff Q6HRT PRN INH Shortness of Breath 08/29/19 01:00 11/17/19 03:14 Amlodipine Besylate (Norvasc) 10 mg DAILY ORAL 08/29/19 09:00 09/18/19 08:59 08/29/19 09:00 Ascorbic Acid (Vitamin C) 500 mg DAILY ORAL 08/29/19 09:00 09/18/19 08:59 08/29/19 09:00 Aspirin (ASA) 81 mg DAILY ORAL 08/29/19 09:00 10/03/19 08:59 08/29/19 09:00 Atorvastatin Calcium (Lipitor) 40 mg BEDTIME ORAL 08/29/19 21:00 11/17/19 20:59 Benzonatate (Tessalon Perles) 100 mg TIDPRN PRN ORAL cough 08/28/19 21:15 09/17/19 21:14 Bisacodyl (Dulcolax) 10 mg DAILY PRN RECTAL Constipation 08/29/19 09:00 11/17/19 01:29 Calcium/Vitamin D (OsCal D) 1 tab DAILY ORAL 08/29/19 09:00 11/17/19 08:59 08/29/19 09:00 Dextrose (Dextrose 50%) 25 ml Q30M PRN IV Hypoglycemia 08/28/19 21:30 11/16/19 20:59 Dextrose (Dextrose 50%) 50 ml Q30M PRN IV Hypoglycemia 08/28/19 21:30 11/16/19 20:59 Docusate Sodium (Colace) 100 mg EVERY 12 HOURS ORAL 08/28/19 21:15 09/17/19 20:59 08/29/19 09:00 Dronabinol (Marinol) 2.5 mg BID ORAL 08/29/19 09:00 11/17/19 08:59 08/29/19 09:00 Ferrous Sulfate (Feosol) 325 mg DAILY ORAL 08/29/19 09:00 11/17/19 08:59 08/29/19 09:00 Fluticasone Propionate (Flonase) 1 spray DAILY NASAL 08/29/19 09:00 09/18/19 08:59 08/29/19 09:00 Fluticasone Propionate (Flovent 110 mcg) 2 puff DAILY INH 08/29/19 09:00 09/18/19 08:59 Heparin Sodium (Porcine) (Heparin 5000 units/ml) 5,000 units EVERY 8 HOURS SUBQ 08/28/19 22:00 10/03/19 00:00 08/29/19 05:54 Hydralazine HCl (Apresoline) 10 mg Q6H PRN ORAL For High Blood Pressure 08/29/19 01:30 11/17/19 01:29 Ipratropium [place] (Atrovent Inh) 1 puffs Q6HRT INH 08/29/19 01:00 09/18/19 06:59 Lactulose (Cephulac) 20 gm DAILY PRN ORAL Constipation 08/29/19 09:00 09/18/19 01:29 Lisinopril (PriniviL) 40 mg DAILY ORAL 08/29/19 09:00 09/18/19 08:59 08/29/19 09:00 Magnesium Oxide (Mag-Ox 400mg) 200 mg DAILY ORAL 08/29/19 09:00 09/18/19 08:59 08/29/19 09:00 Metoprolol Tartrate (Lopressor) 37.5 mg Q12HR ORAL 08/28/19 21:15 11/17/19 08:59 08/29/19 09:00 Mirtazapine (Remeron) 15 mg BEDTIME ORAL 08/29/19 21:00 11/21/19 20:59 Montelukast Sodium (Singulair) 10 mg QPM ORAL 08/29/19 16:30 11/17/19 16:29 Multivitamins (Multivitamins) 1 tab DAILY ORAL 08/29/19 09:00 09/18/19 08:59 08/29/19 09:00 Ondansetron HCl (Zofran) 4 mg Q6H PRN ORAL Nausea & Vomiting 08/28/19 22:00 09/18/19 01:29 08/29/19 04:23 Oxycodone HCl (Roxicodone) 5 mg Q8H PRN ORAL Severe Pain (Pain Scale 7-10) 08/28/19 22:00 08/30/19 18:59 08/29/19 05:53 Pantoprazole (Protonix) 40 mg DAILY ORAL 08/29/19 09:00 09/18/19 08:59 08/29/19 09:00 Polyethylene Glycol (Miralax) 17 gm DAILY ORAL 08/29/19 09:00 09/18/19 08:59 08/29/19 09:00 Polyethylene Glycol (Miralax) 17 gm DAILYPRN PRN ORAL Constipation 08/29/19 21:00 09/17/19 20:59 Sennosides (Senokot) 8.6 mg QHS ORAL 08/29/19 21:00 09/18/19 20:59 Zinc Sulfate (Zinc Sulfate) 220 mg DAILY ORAL 08/29/19 09:00 11/17/19 08:59 08/29/19 09:00 Rafael Lerma MD Aug 29, 2019 17:02
--- NOTE | 2019-08-29 17:07 | Nephrology Progress Note ---
Assessment/Plan Plan #Hyponatremia - likely hypovolumic - r/o SIADH in the setting of pulmonary infection- improving #Acute on chronic hypoxic resp failure #Acute bronchitis #Rule out COVID-19 #COPD #HTN #Chronic diastolic CHF #Depression #GERD #Chronic right hydronephrosis #Left hemorrhagic renal cyst #Nephrolithiasis #Hematuria #hypokalemia - repleted - check urine sodium and urine osm - monitor BMP - check free T4-> WNL - lisinopril to 40 daily--> will decrease dose back to 20 if K persistently elevated - continue MTP 25 BID, - continue amlodipine 10 qdaily - continue antibiotics per ID - breathing treatment. - ID and Pulm eval - Continue Lexapro- - Continue qhs Mirtazapine - - Continue pregabalin 75 mg BID - Subjective ROS Limited/Unobtainable: No Subjective sodium down to 129 will check urine sodium and urine osm repeat K normalized Bp stable WBC uptrending Breathing stable Objective Objective Last 24 Hour Vital Signs Date Time Temp Pulse Resp B/P (MAP) Pulse Ox O2 Delivery O2 Flow Rate FiO2 08/29/19 16:00 98.9 101 20 150/98 (115) 95 08/29/19 13:06 Nasal Cannula 2.0 28 08/29/19 13:05 Nasal Cannula 2.0 28 08/29/19 12:00 98.0 97 19 156/90 (112) 95 08/29/19 09:38 Nasal Cannula 2.0 28 08/29/19 09:38 Nasal Cannula 2.0 28 08/29/19 09:38 95 Nasal Cannula 2.0 28 08/29/19 09:00 Nasal Cannula 3.0 08/29/19 09:00 168 70/70 08/29/19 09:00 168/70 08/29/19 09:00 106 168/70 08/29/19 08:00 98.0 106 19 168/70 (102) 95 08/29/19 04:00 98.9 80 20 147/75 (99) 94 08/29/19 01:00 Nasal Cannula 2.0 28 08/29/19 01:00 Nasal Cannula 2.0 28 08/28/19 23:45 98.7 109 20 161/90 (113) 93 08/28/19 21:42 112 180/79 08/28/19 21:00 Nasal Cannula 3.0 08/28/19 20:30 98.9 123 20 180/93 (122) 94 08/28/19 20:00 Nasal Cannula 2.0 28 08/28/19 20:00 114 08/28/19 20:00 93 Nasal Cannula 2.0 28 08/28/19 20:00 Nasal Cannula 2.0 28 Intake and Output 08/28/19 08/29/19 19:00 07:00 # Voids 4 Laboratory Tests 08/29/19 08:20: White Blood Count 11.1H, Red Blood Count 3.98L, Hemoglobin 11.8L, Hematocrit 35.3L, Mean Corpuscular Volume 89, Mean Corpuscular Hemoglobin 29.7, Mean Corpuscular Hemoglobin Concent 33.4, Red Cell Distribution Width 11.9, Platelet Count 408, Mean Platelet Volume 5.8L, Neutrophils (%) (Auto) 66.3, Lymphocytes ( %) (Auto) 24.3, Monocytes (%) (Auto) 6.8, Eosinophils (%) (Auto) 0.7, Basophils (%) (Auto) 1.8, Sodium Level 129L, Potassium Level 4.1, Chloride Level 93L, Carbon Dioxide Level 29, Anion Gap 7, Blood Urea Nitrogen 17, Creatinine 0.7, Estimat Glomerular Filtration Rate > 60, Glucose Level 86, Calcium Level 9.7 Height (Feet): 5 Height (Inches): 0.00 Weight (Pounds): 123 Salma Ibanez M.D. Aug 29, 2019 17:07
[2019-08-29] MEDS: Montelukast 10mg tablet ORAL SCH (17:12)
[2019-08-29 20:00] VITALS: BP 136/79
--- NOTE | 2019-08-29 20:13 | Infectious Diseases Prog Note ---
Assessment/Plan Assessment/Plan ASSESSMENT AND PLAN: 1. covid-19 virus infection with pna, ? cap, ? risk for aspiration/hcap pna, hypoxia - s/p hydroxychloroquine - sp zosyn and vancomycin - s/p azithromycin - monitor labs, f/u chest x-ray improved - monitor respiratory status closely - f/u pcr - negative 2. pulmonary mgt noted 3. The patient has anemia. 4. Congestive heart failure. 5. Hypertension. 6. Blood pressure treatment per primary care team. 7. Leukopenia consistent with viral syndrome. 8. History of urinary tract infection. We will check urine C and S. 9. Anxiety and chronic pain. 10. Chronic obstructive pulmonary disease. 11. Allergies to oranges, tetracycline, tomatoes. 12. Social history is negative. 13. Family history is noncontributory. 14. MAR was noted. 15. Case discussed with RN. 16. Skin care protocol. 17. The patient comes from a assisted facility. Subjective Constitutional: Reports: fatigue; Denies: fever HEENT: Denies: congestion Respiratory: Denies: shortness of breath Cardiovascular: Denies: chest pain Gastrointestinal/Abdominal: Denies: nausea, vomiting, diarrhea Neurologic: Denies: headache Psychiatric: Denies: depression Skin: Denies: rash Hematologic: Denies: bleeding Musculoskeletal: Denies: pain Allergies: Coded Allergies: [place] (Unverified Allergy, Mild, upset stomach, 02/10/19) [place] (Unverified Allergy, Mild, upset stomach, 02/10/19) TETRACYCLINE (Unverified Allergy, Unknown, 07/24/14) Objective Vital Signs Last 24 Hour Vital Signs Date Time Temp Pulse Resp B/P (MAP) Pulse Ox O2 Delivery O2 Flow Rate FiO2 08/29/19 19:57 95 Nasal Cannula 2.0 28 08/29/19 16:00 98.9 101 20 150/98 (115) 95 08/29/19 13:06 Nasal Cannula 2.0 28 08/29/19 13:05 Nasal Cannula 2.0 28 08/29/19 12:00 98.0 97 19 156/90 (112) 95 08/29/19 09:38 Nasal Cannula 2.0 28 08/29/19 09:38 Nasal Cannula 2.0 28 08/29/19 09:38 95 Nasal Cannula 2.0 28 08/29/19 09:00 Nasal Cannula 3.0 08/29/19 09:00 168 70/70 08/29/19 09:00 168/70 08/29/19 09:00 106 168/70 08/29/19 08:00 98.0 106 19 168/70 (102) 95 08/29/19 04:00 98.9 80 20 147/75 (99) 94 08/29/19 01:00 Nasal Cannula 2.0 28 08/29/19 01:00 Nasal Cannula 2.0 28 08/28/19 23:45 98.7 109 20 161/90 (113) 93 08/28/19 21:42 112 180/79 08/28/19 21:00 Nasal Cannula 3.0 08/28/19 20:30 98.9 123 20 180/93 (122) 94 Height (Feet): 5 Height (Inches): 0.00 Weight (Pounds): 123 General Appearance: no acute distress HEENT: normocephalic, atraumatic, anicteric, mucous membranes moist Respiratory/Chest: lungs clear, normal breath sounds, no respiratory distress, no accessory muscle use Cardiovascular: normal rate, regular rhythm, no gallop/murmur, no JVD Abdomen: normal bowel sounds, soft, non tender, no organomegaly, non distended Genitourinary: other - + shi - urine slt cloudy Extremities: no cyanosis Skin: no rash Neurologic/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 There is bilateral interstitial congestion. There is also some patchy airspace disease in the perihilar regions. There is pleural thickening versus fluid in the left inferolateral hemithorax. Surgical clips are seen adjacent to the right pulmonary hilum. Numerous surgical clips are seen in the right axilla. Findings are similar to the prior exam Impression: Findings likely represent congestive heart failure with interstitial edema, patchy airspace edema, and a left pleural effusion. However, similarity to the prior exam raises possibility that there is also a chronic component. Chest x-ray - 08/23/19 - Procedure: XRAY Chest 1v Indication: Shortness of breath Technique: One view of the chest Comparison: 08/18/2019 Findings: There is suggestion of increased hazy opacity at the right lung base, may reflect increasing infiltrate and/or pleural fluid. Left basilar infiltrate and pleural fluid appear unchanged. The heart is borderline enlarged. Surgical clips are again demonstrated in the right paratracheal region and also in the right axilla. Impression: Increasing right basilar hazy infiltrate and/or pleural fluid are in stable left basilar pleural and parenchymal disease, over 5 days Chest x-ray - 08/26/19 - Procedure: XRAY Chest 1v Indication: Shortness of breath Technique: One view of the chest Comparison: 08/23/2019 Findings: Patient is somewhat rotated to the left. There is a apparent interim leftward shift of the mediastinum. This is probably mostly artifactual due to patient rotation but could indicate a component of developing volume loss. There appears to be increased air bronchograms in the retrocardiac region suggesting increasing infiltrate. There is also suggestion of new or increasing pleural fluid on the left. Hazy opacity at the right lung base may reflect hazy infiltrate or could be an artifact of overlying soft tissues. Evidence of prior mediastinal and right axillary surgery again demonstrated Impression: Suspect increasing left lung consolidation, volume loss, and left- sided pleural fluid Possible hazy right basilar infiltrate, unchanged Chest x-ray - - Procedure: XRAY Chest 1v Indication: Shortness of breath Technique: One view of the chest Comparison: 08/25/2025 Findings: The heart is enlarged. There is left lung volume loss and retrocardiac and perihilar consolidation, although aeration of the left mid and lower lung appears somewhat improved as compared to prior study. Hazy right basilar opacity is unchanged. Surgical clips in the right mediastinum and right axilla remain. Impression: Interim slight improvement the persistence of left lung consolidation. Persistent left lung volume loss. Persistent hazy right basilar parenchymal opacity Stable cardiomegaly. Microbiology Date/Time Source Procedure Growth Status 08/18/19 19:00 Blood Blood Culture - Final NO GROWTH AFTER 5 DAYS Complete 08/26/19 11:15 Nasopharynx Coronavirus COVID-19 PCR ([facility]) - Final Complete cultures - noted and reviewed Laboratory Tests Test 08/29/19 08:20 White Blood Count 11.1 K/UL (4.8-10.8) H Red Blood Count 3.98 M/UL (4.20-5.40) L Hemoglobin 11.8 G/DL (12.0-16.0) L Hematocrit 35.3 % (37.0-47.0) L Mean Corpuscular Volume 89 FL (80-99) Mean Corpuscular Hemoglobin 29.7 PG (27.0-31.0) Mean Corpuscular Hemoglobin Concent 33.4 G/DL (32.0-36.0) Red Cell Distribution Width 11.9 % (11.6-14.8) Platelet Count 408 K/UL (150-450) Mean Platelet Volume 5.8 FL (6.5-10.1) L Neutrophils (%) (Auto) 66.3 % (45.0-75.0) Lymphocytes (%) (Auto) 24.3 % (20.0-45.0) Monocytes (%) (Auto) 6.8 % (1.0-10.0) Eosinophils (%) (Auto) 0.7 % (0.0-3.0) Basophils (%) (Auto) 1.8 % (0.0-2.0) Sodium Level 129 MMOL/L (136-145) L Potassium Level 4.1 MMOL/L (3.5-5.1) Chloride Level 93 MMOL/L (98-107) L Carbon Dioxide Level 29 MMOL/L (21-32) Anion Gap 7 mmol/L (5-15) Blood Urea Nitrogen 17 mg/dL (7-18) Creatinine 0.7 MG/DL (0.55-1.30) Estimat Glomerular Filtration Rate > 60 mL/min (>60) Glucose Level 86 MG/DL (74-106) Calcium Level 9.7 MG/DL (8.5-10.1) Current Medications Medications (Trade) Dose Ordered Sig/Wilner Route PRN Reason Start Time Stop Time Status Last Admin Dose Admin Acetaminophen (Tylenol) 650 mg Q4H PRN ORAL Mild Pain (Pain Scale 1-3) 08/28/19 21:30 09/18/19 01:29 Al Hydroxide/Mg Hydroxide (Mylanta II) 20 ml Q4H PRN ORAL INDIGESTION 08/28/19 21:30 09/18/19 01:29 Albuterol Sulfate (Proventil MDI) 2 puff Q6HRT PRN INH Shortness of Breath 08/29/19 01:00 11/17/19 03:14 Amlodipine Besylate (Norvasc) 10 mg DAILY ORAL 08/29/19 09:00 09/18/19 08:59 08/29/19 09:00 Ascorbic Acid (Vitamin C) 500 mg DAILY ORAL 08/29/19 09:00 09/18/19 08:59 08/29/19 09:00 Aspirin (ASA) 81 mg DAILY ORAL 08/29/19 09:00 10/03/19 08:59 08/29/19 09:00 Atorvastatin Calcium (Lipitor) 40 mg BEDTIME ORAL 08/29/19 21:00 11/17/19 20:59 Benzonatate (Tessalon Perles) 100 mg TIDPRN PRN ORAL cough 08/28/19 21:15 09/17/19 21:14 Bisacodyl (Dulcolax) 10 mg DAILY PRN RECTAL Constipation 08/29/19 09:00 11/17/19 01:29 Calcium/Vitamin D (OsCal D) 1 tab DAILY ORAL 08/29/19 09:00 11/17/19 08:59 08/29/19 09:00 Dextrose (Dextrose 50%) 25 ml Q30M PRN IV Hypoglycemia 08/28/19 21:30 11/16/19 20:59 Dextrose (Dextrose 50%) 50 ml Q30M PRN IV Hypoglycemia 08/28/19 21:30 11/16/19 20:59 Docusate Sodium (Colace) 100 mg EVERY 12 HOURS ORAL 08/28/19 21:15 09/17/19 20:59 08/29/19 09:00 Dronabinol (Marinol) 2.5 mg BID ORAL 08/29/19 09:00 11/17/19 08:59 08/29/19 17:12 Ferrous Sulfate (Feosol) 325 mg DAILY ORAL 08/29/19 09:00 11/17/19 08:59 08/29/19 09:00 Fluticasone Propionate (Flonase) 1 spray DAILY NASAL 08/29/19 09:00 09/18/19 08:59 08/29/19 09:00 Fluticasone Propionate (Flovent 110 mcg) 2 puff DAILY INH 08/29/19 09:00 09/18/19 08:59 Heparin Sodium (Porcine) (Heparin 5000 units/ml) 5,000 units EVERY 8 HOURS SUBQ 08/28/19 22:00 10/03/19 00:00 08/29/19 05:54 Hydralazine HCl (Apresoline) 10 mg Q6H PRN ORAL For High Blood Pressure 08/29/19 01:30 11/17/19 01:29 Ipratropium [place] (Atrovent Inh) 1 puffs Q6HRT INH 08/29/19 01:00 09/18/19 06:59 08/29/19 19:56 Lactulose (Cephulac) 20 gm DAILY PRN ORAL Constipation 08/29/19 09:00 09/18/19 01:29 Lisinopril (PriniviL) 40 mg DAILY ORAL 08/29/19 09:00 09/18/19 08:59 08/29/19 09:00 Magnesium Oxide (Mag-Ox 400mg) 200 mg DAILY ORAL 08/29/19 09:00 09/18/19 08:59 08/29/19 09:00 Metoprolol Tartrate (Lopressor) 37.5 mg Q12HR ORAL 08/28/19 21:15 11/17/19 08:59 08/29/19 09:00 Mirtazapine (Remeron) 15 mg BEDTIME ORAL 08/29/19 21:00 11/21/19 20:59 Montelukast Sodium (Singulair) 10 mg QPM ORAL 08/29/19 16:30 11/17/19 16:29 08/29/19 17:12 Multivitamins (Multivitamins) 1 tab DAILY ORAL 08/29/19 09:00 09/18/19 08:59 08/29/19 09:00 Ondansetron HCl (Zofran) 4 mg Q6H PRN ORAL Nausea & Vomiting 08/28/19 22:00 09/18/19 01:29 08/29/19 04:23 Oxycodone HCl (Roxicodone) 5 mg Q8H PRN ORAL Severe Pain (Pain Scale 7-10) 08/28/19 22:00 08/30/19 18:59 08/29/19 05:53 Pantoprazole (Protonix) 40 mg DAILY ORAL 08/29/19 09:00 09/18/19 08:59 08/29/19 09:00 Polyethylene Glycol (Miralax) 17 gm DAILY ORAL 08/29/19 09:00 09/18/19 08:59 08/29/19 09:00 Polyethylene Glycol (Miralax) 17 gm DAILYPRN PRN ORAL Constipation 08/29/19 21:00 09/17/19 20:59 Sennosides (Senokot) 8.6 mg QHS ORAL 08/29/19 21:00 09/18/19 20:59 Zinc Sulfate (Zinc Sulfate) 220 mg DAILY ORAL 08/29/19 09:00 11/17/19 08:59 08/29/19 09:00 Nyasia Grover MD Aug 29, 2019 20:13
--- NOTE | 2019-08-29 20:59 | Neurology Progress Note ---
Interim History Interim History ROS Limited/Unobtainable: No Interim History no new deficits Objective Physical Exam Last Vital Signs Date Time Temp Pulse Resp B/P (MAP) Pulse Ox O2 Delivery O2 Flow Rate FiO2 08/29/19 19:58 77 18 96 Nasal Cannula 2.0 28 08/29/19 16:00 98.9 150/98 (115) Laboratory Tests Test 08/29/19 08:20 White Blood Count 11.1 K/UL (4.8-10.8) H Red Blood Count 3.98 M/UL (4.20-5.40) L Hemoglobin 11.8 G/DL (12.0-16.0) L Hematocrit 35.3 % (37.0-47.0) L Mean Corpuscular Volume 89 FL (80-99) Mean Corpuscular Hemoglobin 29.7 PG (27.0-31.0) Mean Corpuscular Hemoglobin Concent 33.4 G/DL (32.0-36.0) Red Cell Distribution Width 11.9 % (11.6-14.8) Platelet Count 408 K/UL (150-450) Mean Platelet Volume 5.8 FL (6.5-10.1) L Neutrophils (%) (Auto) 66.3 % (45.0-75.0) Lymphocytes (%) (Auto) 24.3 % (20.0-45.0) Monocytes (%) (Auto) 6.8 % (1.0-10.0) Eosinophils (%) (Auto) 0.7 % (0.0-3.0) Basophils (%) (Auto) 1.8 % (0.0-2.0) Sodium Level 129 MMOL/L (136-145) L Potassium Level 4.1 MMOL/L (3.5-5.1) Chloride Level 93 MMOL/L (98-107) L Carbon Dioxide Level 29 MMOL/L (21-32) Anion Gap 7 mmol/L (5-15) Blood Urea Nitrogen 17 mg/dL (7-18) Creatinine 0.7 MG/DL (0.55-1.30) Estimat Glomerular Filtration Rate > 60 mL/min (>60) Glucose Level 86 MG/DL (74-106) Calcium Level 9.7 MG/DL (8.5-10.1) General: well nourished Head: normocophalic Neck: no rigidity Neurologic Exam Mental Status: awake Objective moves all 4 symmetric Impression/Recommendations Problems: (1) Hypokalemia (2) Abdominal pain (3) Therapeutic opioid-induced constipation (OIC) (4) Shortness of breath (5) Diastolic CHF (6) Anemia (7) Anxiety (8) Hypercholesteremia (9) Hyponatremia (10) Hypertension (11) Severe sepsis (12) History of breast cancer (13) Respiratory failure with hypoxia (14) Protein-calorie malnutrition, mild (15) GERD (gastroesophageal reflux disease) (16) Cough (17) Dysphagia (18) SOB (shortness of breath) (19) Pleural effusion (20) Renal failure (21) Allergic rhinitis (22) Constipation (23) Osteoporosis (24) Aspiration pneumonia (25) Tracheobronchitis (26) Collapse of left lung (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 (28) Respiratory failure requiring intubation (29) Limited mobility (30) Acute metabolic encephalopathy (31) Decubitus skin ulcer (32) Leukocytosis (33) Gram-negative bacteremia (34) COPD (chronic obstructive pulmonary disease) (35) Chronic respiratory failure with hypoxia (36) Lumbar radiculopathy (37) Fibromyalgia (38) Cervical spondylosis (39) Diastolic CHF, acute on chronic (40) Lumbar spondylosis (41) Acute and chronic respiratory failure ([id number]) (42) Pneumonia (43) Cervical radiculopathy (44) DDD (degenerative disc disease), cervical (45) DDD (degenerative disc disease), lumbar (46) Troponin level elevated (47) UTI (urinary tract infection) Diagnostic Impression acute encephalopathy and gen weakness likely metabolic in the setting of possible covid and resp faikure myalgias GEn pain Depression COVID rule out atb per primary management of fluids nad hyponatremia pt ot delirium precautions Quentin Giron MD Aug 29, 2019 20:59
[2019-08-29] MEDS ORDERED: Miralax 17gm pkt ORAL PRN (21:00)
[2019-08-29] MEDS: Atorvastatin 20mg tab ORAL SCH (21:31)
[2019-08-29] MEDS: Sennosides 8.6mg tab ORAL SCH (21:31)
[2019-08-30] VITALS: BP 145/74
[2019-08-30] MEDS: Ipratropium Bromide Inhaler INH SCH ×4 (00:44→19:00)
--- NOTE | 2019-08-30 03:14 | Progress Note ---
DATE: 08/18/2019 HISTORY OF PRESENT ILLNESS: The patient is doing much better. She is awaiting discharge soon. She has chronic COPD. She has recovered from COVID-19 and is doing much better. Now, she is on stage IV. Sleep and appetite is adequate. Constantly asking for her nurse to go into her room. She is still anxious. MENTAL STATUS EXAMINATION: Alert and oriented to time, self, place, and situation. Mood is anxious. Affect is flat. Thought process is concrete. Thought content, no suicidal or homicidal ideation. The cognition is intact. Insight and judgment is fair. PLAN: 1. We will continue current medications. 2. Provide the patient with reality orientation and supportive therapy. Wan Stern M.D. DR: Miguel JOB#: [id number] CC:
[2019-08-30 04:57] VITALS: BP 121/59
[2019-08-30] MEDS: Heparin 5000 units/ml inj SUBQ SCH ×4 (05:53→21:40)
[2019-08-30 06:47] LABS: BASOPHILS % (AUTO) 1.1 % (0.0-2.0); EOSINOPHILS % (AUTO) 0.3 % (0.0-3.0); HEMATOCRIT 36.9 % (37.0-47.0); HEMOGLOBIN 12.4 G/DL (12.0-16.0); LYMPHOCYTES % (AUTO) 22.2 % (20.0-45.0); MEAN CORPUSCULAR VOLUME 88 FL (80-99); MONOCYTES % (AUTO) 7.4 % (1.0-10.0); PLATELET COUNT 397 K/UL (150-450); RED BLOOD COUNT 4.17 M/UL (4.20-5.40); RED CELL DISTRIBUTION WIDTH 11.8 % (11.6-14.8); WHITE BLOOD COUNT 11.3 K/UL (4.8-10.8)
[2019-08-30 07:31] LABS: ANION GAP 12 mmol/L (5-15); BLOOD UREA NITROGEN 20 mg/dL (7-18); CALCIUM 10.3 MG/DL (8.5-10.1); CARBON DIOXIDE 27 MMOL/L (21-32); CHLORIDE 94 MMOL/L (98-107); CREATININE 0.6 MG/DL (0.55-1.30); SODIUM 133 MMOL/L (136-145)
[2019-08-30 08:00] VITALS: BP 139/78
[2019-08-30] MEDS: Docusate 100mg cap ORAL SCH ×2 (08:43→21:21)
[2019-08-30] MEDS: Aspirin Baby 81mg ORAL SCH (08:43)
[2019-08-30] MEDS: Magnesium Oxide 400mg tab ORAL SCH (08:43)
[2019-08-30] MEDS: Dronabinol 2.5mg Cap ORAL SCH ×2 (08:43→17:29)
[2019-08-30] MEDS: Zinc Sulfate 220mg cap ORAL SCH (08:44)
[2019-08-30] MEDS: Calcium Carbonate 500mg w/Vit D 200iu tab ORAL SCH (08:44)
[2019-08-30] MEDS: Lisinopril 20mg tab ORAL SCH (08:44)
[2019-08-30] MEDS: Flovent 110mcg Inhaler - 12gm INH SCH (08:44)
[2019-08-30] MEDS: Ascorbic Acid 500mg tab ORAL SCH (08:45)
[2019-08-30] MEDS: Miralax 17gm pkt ORAL SCH (08:45)
[2019-08-30] MEDS: Flonase Nasal Inhaler 16gm NASAL SCH (09:00)
--- NOTE | 2019-08-30 10:44 | Discharge Instructions ---
Discharge Instructions Discharge Instructions Follow up with: f/u w/PCP in 1 week for repeat BMP. For Congestive Heart Failure Reminder Report to your physician any weight gain of 5 pounds or more in one week. Morgan Lutz M.D. Aug 30, 2019 10:44
[2019-08-30 12:00] VITALS: BP 131/65
[2019-08-30] MEDS ORDERED: Dicyclomine HCl 10mg/5ml oral soln ORAL PRN (12:15)
--- NOTE | 2019-08-30 12:21 | Pulmonology Progress Note ---
Assessment/Plan Assessment/Plan ASSESSMENT: The patient is a 78-year-old female with a history of COPD, diastolic dysfunction, CHF, breast cancer, anemia, admitted with COVID 19 PNA PROBLEM LIST: 1. COVID19 PNA 2. Acute hypoxemic respiratory failure. 3. COPD. ic dysfunction. 5. History of mucus plugging. 6. History of breast cancer. 7. Anemia. 8. Hyponatremia. 9. Dementia. 10. 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 11. Dysphagia. TREATMENT PLAN: 1. Optimize pulmonary hygiene/mobilize as tolerated. 2. Titrate down FiO2 to keep saturations greater than 90%. 3. Rmfkj-peq-tybjc and p.r.n. albuterol and Atrovent metered-dose inhalers via spacer. 4. Completed Plaquenil (D5/5) 5. Off steroids 6. Monitor off Abx per ID, 08/25 COVID PCR neg, awaiting one more prior to removing isolation 7. Monitor volumes and renal function. 8. DVT prophylaxis, heparin subcu. 9. Continue Singulair. 10. Continue fluticasone inhaler b.i.d. 11. Continue Tessalon t.i.d. p.r.n. 12. Continue Mucinex and p.r.n. Robitussin. D/W patient D/W RN Subjective Allergies: Coded Allergies: [place] (Unverified Allergy, Mild, upset stomach, 02/10/19) TOMATO (Unverified Allergy, Mild, upset stomach, 02/10/19) TETRACYCLINE (Unverified Allergy, Unknown, 07/24/14) Subjective NAEO AFVSS on 2L denies cough or SOB no FC no CP + abd pain today, awaiting KUB prior to discharge Objective Last 24 Hour Vital Signs Date Time Temp Pulse Resp B/P (MAP) Pulse Ox O2 Delivery O2 Flow Rate FiO2 08/30/19 09:00 Nasal Cannula 3.0 08/30/19 08:46 Nasal Cannula 08/30/19 08:45 108 139/78 08/30/19 08:45 Nasal Cannula 08/30/19 08:45 94 Nasal Cannula 2.0 28 08/30/19 08:44 139/78 08/30/19 08:44 108 139/78 08/30/19 08:00 98.7 108 18 139/78 (98) 100 08/30/19 04:57 97.2 72 18 121/59 (79) 94 08/30/19 00:44 Nasal Cannula 2.0 28 08/30/19 00:44 Nasal Cannula 2.0 28 08/30/19 00:00 97.2 81 19 145/74 (97) 94 08/29/19 21:53 Nasal Cannula 3.0 08/29/19 21:30 74 136/77 08/29/19 20:00 99.2 78 21 136/79 (98) 98 08/29/19 19:58 77 18 96 Nasal Cannula 2.0 28 08/29/19 19:57 95 Nasal Cannula 2.0 28 08/29/19 19:57 75 18 95 Nasal Cannula 2.0 28 08/29/19 16:00 98.9 101 20 150/98 (115) 95 08/29/19 13:06 Nasal Cannula 2.0 28 08/29/19 13:05 Nasal Cannula 2.0 28 Intake and Output 08/29/19 08/30/19 19:00 07:00 Intake Total 240 ml Balance 240 ml Intake Oral 240 ml Objective Deferred 2/2 COVID isolation, PPE requirements, no distress, not coughing, less confused, awake and alert Laboratory Tests 08/30/19 05:30: White Blood Count 11.3H, Red Blood Count 4.17L, Hemoglobin 12.4, Hematocrit 36.9L, Mean Corpuscular Volume 88, Mean Corpuscular Hemoglobin 29.8, Mean Corpuscular Hemoglobin Concent 33.6, Red Cell Distribution Width 11.8, Platelet Count 397, Mean Platelet Volume 5.7L, Neutrophils (%) (Auto) 69.0, Lymphocytes ( %) (Auto) 22.2, Monocytes (%) (Auto) 7.4, Eosinophils (%) (Auto) 0.3, Basophils (%) (Auto) 1.1, Sodium Level 133L, Potassium Level 4.0, Chloride Level 94L, Carbon Dioxide Level 27, Anion Gap 12, Blood Urea Nitrogen 20H, Creatinine 0.6, Estimat Glomerular Filtration Rate > 60, Glucose Level 73L, Calcium Level 10.3H Current Medications Medications (Trade) Dose Ordered Sig/Wilner Route PRN Reason Start Time Stop Time Status Last Admin Dose Admin Acetaminophen (Tylenol) 650 mg Q4H PRN ORAL Mild Pain (Pain Scale 1-3) 08/28/19 21:30 09/18/19 01:29 Al Hydroxide/Mg Hydroxide (Mylanta II) 20 ml Q4H PRN ORAL INDIGESTION 08/28/19 21:30 09/18/19 01:29 Albuterol Sulfate (Proventil MDI) 2 puff Q6HRT PRN INH Shortness of Breath 08/29/19 01:00 11/17/19 03:14 Amlodipine Besylate (Norvasc) 10 mg DAILY ORAL 08/29/19 09:00 09/18/19 08:59 08/30/19 08:44 Ascorbic Acid (Vitamin C) 500 mg DAILY ORAL 08/29/19 09:00 09/18/19 08:59 08/30/19 08:45 Aspirin (ASA) 81 mg DAILY ORAL 08/29/19 09:00 10/03/19 08:59 08/30/19 08:43 Atorvastatin Calcium (Lipitor) 40 mg BEDTIME ORAL 08/29/19 21:00 11/17/19 20:59 08/29/19 21:31 Benzonatate (Tessalon Perles) 100 mg TIDPRN PRN ORAL cough 08/28/19 21:15 09/17/19 21:14 Bisacodyl (Dulcolax) 10 mg DAILY PRN RECTAL Constipation 08/29/19 09:00 11/17/19 01:29 Calcium/Vitamin D (OsCal D) 1 tab DAILY ORAL 08/29/19 09:00 11/17/19 08:59 08/30/19 08:44 Dextrose (Dextrose 50%) 25 ml Q30M PRN IV Hypoglycemia 08/28/19 21:30 11/16/19 20:59 Dextrose (Dextrose 50%) 50 ml Q30M PRN IV Hypoglycemia 08/28/19 21:30 11/16/19 20:59 Dicyclomine HCl (Bentyl) 10 mg QIDPRN PRN ORAL Abdominal cramps 08/30/19 12:15 11/28/19 12:14 Docusate Sodium (Colace) 100 mg EVERY 12 HOURS ORAL 08/28/19 21:15 09/17/19 20:59 08/30/19 08:43 Dronabinol (Marinol) 2.5 mg BID ORAL 08/29/19 09:00 11/17/19 08:59 08/30/19 08:43 Ferrous Sulfate (Feosol) 325 mg DAILY ORAL 08/29/19 09:00 11/17/19 08:59 08/30/19 08:43 Fluticasone Propionate (Flonase) 1 spray DAILY NASAL 08/29/19 09:00 09/18/19 08:59 08/30/19 09:00 Fluticasone Propionate (Flovent 110 mcg) 2 puff DAILY INH 08/29/19 09:00 09/18/19 08:59 Heparin Sodium (Porcine) (Heparin 5000 units/ml) 5,000 units EVERY 8 HOURS SUBQ 08/28/19 22:00 10/03/19 00:00 08/29/19 21:33 Hydralazine HCl (Apresoline) 10 mg Q6H PRN ORAL For High Blood Pressure 08/29/19 01:30 11/17/19 01:29 Ipratropium [place] (Atrovent Inh) 1 puffs Q6HRT INH 08/29/19 01:00 09/18/19 06:59 08/29/19 19:56 Lactulose (Cephulac) 20 gm DAILY PRN ORAL Constipation 08/29/19 09:00 09/18/19 01:29 Lisinopril (PriniviL) 40 mg DAILY ORAL 08/29/19 09:00 09/18/19 08:59 08/30/19 08:44 Magnesium Oxide (Mag-Ox 400mg) 200 mg DAILY ORAL 08/29/19 09:00 09/18/19 08:59 08/30/19 08:43 Metoprolol Tartrate (Lopressor) 37.5 mg Q12HR ORAL 08/28/19 21:15 11/17/19 08:59 08/30/19 08:45 Mirtazapine (Remeron) 15 mg BEDTIME ORAL 08/29/19 21:00 11/21/19 20:59 08/29/19 21:30 Montelukast Sodium (Singulair) 10 mg QPM ORAL 08/29/19 16:30 11/17/19 16:29 08/29/19 17:12 Multivitamins (Multivitamins) 1 tab DAILY ORAL 08/29/19 09:00 09/18/19 08:59 08/30/19 08:43 Ondansetron HCl (Zofran) 4 mg Q6H PRN ORAL Nausea & Vomiting 08/28/19 22:00 09/18/19 01:29 08/29/19 04:23 Oxycodone HCl (Roxicodone) 5 mg Q8H PRN ORAL Severe Pain (Pain Scale 7-10) 08/28/19 22:00 08/30/19 18:59 08/29/19 05:53 Pantoprazole (Protonix) 40 mg DAILY ORAL 08/29/19 09:00 09/18/19 08:59 08/30/19 08:45 Polyethylene Glycol (Miralax) 17 gm DAILY ORAL 08/29/19 09:00 09/18/19 08:59 08/30/19 08:45 Polyethylene Glycol (Miralax) 17 gm DAILYPRN PRN ORAL Constipation 08/29/19 21:00 09/17/19 20:59 Sennosides (Senokot) 8.6 mg QHS ORAL 08/29/19 21:00 09/18/19 20:59 08/29/19 21:31 Zinc Sulfate (Zinc Sulfate) 220 mg DAILY ORAL 08/29/19 09:00 11/17/19 08:59 08/30/19 08:44 Rafael Lerma MD Aug 30, 2019 12:21
--- NOTE | 2019-08-30 13:10 | Nephrology Progress Note ---
Assessment/Plan Plan #Hyponatremia - likely hypovolumic - r/o SIADH in the setting of pulmonary infection- improving #Acute on chronic hypoxic resp failure #Acute bronchitis #Rule out COVID-19 #COPD #HTN #Chronic diastolic CHF #Depression #GERD #Chronic right hydronephrosis #Left hemorrhagic renal cyst #Nephrolithiasis #Hematuria #hypokalemia - repleted - stable for DC from renal standpoint - monitor BMP - check free T4-> WNL - lisinopril to 40 daily--> will decrease dose back to 20 if K persistently elevated - continue MTP 25 BID, - continue amlodipine 10 qdaily - lisinopril 40mg daily - continue antibiotics per ID - breathing treatment. - ID and Pulm eval - Continue Lexapro- - Continue qhs Mirtazapine - - Continue pregabalin 75 mg BID - Subjective ROS Limited/Unobtainable: No Subjective sodium 129-> 133 Bp stable Breathing stable DC planning Objective Objective Last 24 Hour Vital Signs Date Time Temp Pulse Resp B/P (MAP) Pulse Ox O2 Delivery O2 Flow Rate FiO2 08/30/19 09:00 Nasal Cannula 3.0 08/30/19 08:46 Nasal Cannula 08/30/19 08:45 108 139/78 08/30/19 08:45 Nasal Cannula 08/30/19 08:45 94 Nasal Cannula 2.0 28 08/30/19 08:44 139/78 08/30/19 08:44 108 139/78 08/30/19 08:00 98.7 108 18 139/78 (98) 100 08/30/19 04:57 97.2 72 18 121/59 (79) 94 08/30/19 00:44 Nasal Cannula 2.0 28 08/30/19 00:44 Nasal Cannula 2.0 28 08/30/19 00:00 97.2 81 19 145/74 (97) 94 08/29/19 21:53 Nasal Cannula 3.0 08/29/19 21:30 74 136/77 08/29/19 20:00 99.2 78 21 136/79 (98) 98 08/29/19 19:58 77 18 96 Nasal Cannula 2.0 28 08/29/19 19:57 95 Nasal Cannula 2.0 28 08/29/19 19:57 75 18 95 Nasal Cannula 2.0 28 08/29/19 16:00 98.9 101 20 150/98 (115) 95 Intake and Output 08/29/19 08/30/19 19:00 07:00 Intake Total 240 ml Balance 240 ml Intake Oral 240 ml Laboratory Tests 08/30/19 05:30: White Blood Count 11.3H, Red Blood Count 4.17L, Hemoglobin 12.4, Hematocrit 36.9L, Mean Corpuscular Volume 88, Mean Corpuscular Hemoglobin 29.8, Mean Corpuscular Hemoglobin Concent 33.6, Red Cell Distribution Width 11.8, Platelet Count 397, Mean Platelet Volume 5.7L, Neutrophils (%) (Auto) 69.0, Lymphocytes ( %) (Auto) 22.2, Monocytes (%) (Auto) 7.4, Eosinophils (%) (Auto) 0.3, Basophils (%) (Auto) 1.1, Sodium Level 133L, Potassium Level 4.0, Chloride Level 94L, Carbon Dioxide Level 27, Anion Gap 12, Blood Urea Nitrogen 20H, Creatinine 0.6, Estimat Glomerular Filtration Rate > 60, Glucose Level 73L, Calcium Level 10.3H Height (Feet): 5 Height (Inches): 0.00 Weight (Pounds): 123 Salma Ibanez M.D. Aug 30, 2019 13:10
[2019-08-30] MEDS: oxyCODONE 5mg IR tab ORAL PRN (13:33)
--- NOTE | 2019-08-30 14:18 | Discharge Summary ---
Discharge Summary Hospital Course Date of Admission Aug 18, 2019 at 20:16 Date of Discharge Admitting Diagnosis R/O Covid HPI Brooke Sorensen is a 78 year old female who was admitted on Aug 18, 2019 at 20: 16 for Rule Out Covid 19 S: No acute events overnight. Pt w/mild abd pain, states had good BM. PE: General Appearance: NAD, on 2L NC, appears comfortable laying in bed HEENT: atraumatic, anicteric, EOMi, dry MM Neck: normal alignment, supple Respiratory/Chest: CTAB, no respiratory distress, no accessory muscle use Cardiovascular/Chest: normal rate, regular rhythm Abdomen: non tender, soft, +BS, no guarding/rebound Ext: no edema Hospital Course 78 year old woman SNF resident with chronic resp failure due to COPD, HTN, chronic dCHF, chronic pain, depression, anxiety, chronic right hydronephrosis who presented from SNF with dyspnea, cough body aches, COVID-19 positive. Patient received hydroxychloroquine, azithromycin, Vanco and Zosyn. Patient completed her course of antibiotics with symptomatic improvement. Patient with no increased supplemental O2 needs or signs of respiratory distress during hospital stay. Patient had a repeat COVID on 08/25 which was negative. CM d/w NH who stated they will be able to accept pt at this time. Pt noted abd pain today, pt with good BMs. Stat KUB was obtained which showed gas. Pt given simethicone and dicyclomine. Patient in stable condition, to be DC'd back to long-term. #Acute on chronic hypoxic resp failure, 2L O2 dependant #Acute bronchitis #HCAP #COVID-19 POSITIVE #COPD #Hyponatremia #Hypokalemia #HTN #Chronic diastolic CHF #Depression #Chronic pain #Anxiety disorder #Osteoarthritis #GERD #Chronic right hydronephrosis #Left hemorrhagic renal cyst #Nephrolithiasis #Hematuria D/c planning >30 mins. Time of note doesn't reflect time of encounter. Discharge Condition Upon Discharge: stable Discharge Vital Signs Last Vital Signs Date Time Temp Pulse Resp B/P (MAP) Pulse Ox O2 Delivery O2 Flow Rate FiO2 08/30/19 12:00 99.1 90 20 131/65 (87) 97 08/30/19 09:00 Nasal Cannula 3.0 08/30/19 08:45 28 Discharge Disposition Patient was discharged to SNF Discharge Instructions Discharge Instructions Follow up with: f/u w/PCP in 1 week for repeat BMP. Morgan Lutz M.D. Aug 30, 2019 14:18
--- NOTE | 2019-08-30 15:24 | Diagnostic Imaging Report ---
Indication: Abdominal pain Technique: Supine view of the abdomen Comparison: 04/06/2019 Findings: Considerable gas is seen throughout nondilated small bowel. Large bowel gas is also evident. Appearance is similar to the prior study. There is lumbar scoliotic deformity. No masses or unusual calcifications. Impression: Prominent gas in nondilated small bowel loops, nonspecific. No definite acute process
[2019-08-30 16:00] VITALS: BP 106/58
[2019-08-30] MEDS ORDERED: Simethicone 80mg tab ORAL SCH (16:00)
[2019-08-30] MEDS: Montelukast 10mg tablet ORAL SCH (17:29)
[2019-08-30] MEDS ORDERED: Simethicone 80mg tab ORAL PRN (18:30)
[2019-08-30 20:00] VITALS: BP 107/55
[2019-08-30] MEDS: Sennosides 8.6mg tab ORAL SCH ×2 (21:00→21:20)
[2019-08-30] MEDS: Atorvastatin 20mg tab ORAL SCH (21:20)
--- NOTE | 2019-08-30 22:05 | Neurology Progress Note ---
Interim History Interim History ROS Limited/Unobtainable: No Interim History more interactive Objective Physical Exam Last Vital Signs Date Time Temp Pulse Resp B/P (MAP) Pulse Ox O2 Delivery O2 Flow Rate FiO2 08/30/19 21:17 Room Air 21 08/30/19 21:17 95 2.0 08/30/19 21:00 102 107/55 08/30/19 20:00 98.1 20 Laboratory Tests Test 08/30/19 05:30 White Blood Count 11.3 K/UL (4.8-10.8) H Red Blood Count 4.17 M/UL (4.20-5.40) L Hemoglobin 12.4 G/DL (12.0-16.0) Hematocrit 36.9 % (37.0-47.0) L Mean Corpuscular Volume 88 FL (80-99) Mean Corpuscular Hemoglobin 29.8 PG (27.0-31.0) Mean Corpuscular Hemoglobin Concent 33.6 G/DL (32.0-36.0) Red Cell Distribution Width 11.8 % (11.6-14.8) Platelet Count 397 K/UL (150-450) Mean Platelet Volume 5.7 FL (6.5-10.1) L Neutrophils (%) (Auto) 69.0 % (45.0-75.0) Lymphocytes (%) (Auto) 22.2 % (20.0-45.0) Monocytes (%) (Auto) 7.4 % (1.0-10.0) Eosinophils (%) (Auto) 0.3 % (0.0-3.0) Basophils (%) (Auto) 1.1 % (0.0-2.0) Sodium Level 133 MMOL/L (136-145) L Potassium Level 4.0 MMOL/L (3.5-5.1) Chloride Level 94 MMOL/L (98-107) L Carbon Dioxide Level 27 MMOL/L (21-32) Anion Gap 12 mmol/L (5-15) Blood Urea Nitrogen 20 mg/dL (7-18) H Creatinine 0.6 MG/DL (0.55-1.30) Estimat Glomerular Filtration Rate > 60 mL/min (>60) Glucose Level 73 MG/DL (74-106) L Calcium Level 10.3 MG/DL (8.5-10.1) H General: well nourished Head: normocophalic Neck: no rigidity Neurologic Exam Mental Status: awake Objective moves all 4 symmetric Impression/Recommendations Problems: (1) Hypokalemia (2) Abdominal pain (3) Therapeutic opioid-induced constipation (OIC) (4) Shortness of breath (5) Diastolic CHF (6) Anemia (7) Anxiety (8) Hypercholesteremia (9) Hyponatremia (10) Hypertension (11) Severe sepsis (12) History of breast cancer (13) Respiratory failure with hypoxia (14) Protein-calorie malnutrition, mild (15) GERD (gastroesophageal reflux disease) (16) Cough (17) Dysphagia (18) SOB (shortness of breath) (19) Pleural effusion (20) Renal failure (21) Allergic rhinitis (22) Constipation (23) Osteoporosis (24) Aspiration pneumonia (25) Tracheobronchitis (26) Collapse of left lung (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 (28) Respiratory failure requiring intubation (29) Limited mobility (30) Acute metabolic encephalopathy (31) Decubitus skin ulcer (32) Leukocytosis (33) Gram-negative bacteremia (34) COPD (chronic obstructive pulmonary disease) (35) Chronic respiratory failure with hypoxia (36) Lumbar radiculopathy (37) Fibromyalgia (38) Cervical spondylosis (39) Diastolic CHF, acute on chronic (40) Lumbar spondylosis (41) Acute and chronic respiratory failure ([id number]) (42) Pneumonia (43) Cervical radiculopathy (44) DDD (degenerative disc disease), cervical (45) DDD (degenerative disc disease), lumbar (46) Troponin level elevated (47) UTI (urinary tract infection) Diagnostic Impression acute encephalopathy and gen weakness likely metabolic in the setting of possible covid and resp faikure myalgias GEn pain Depression COVID rule out atb per primary management of fluids nad hyponatremia pt ot delirium precautions Quentin Giron MD Aug 30, 2019 22:05
[2019-08-31] VITALS: BP 114/57
[2019-08-31] MEDS: Mylanta II UD 30ml ORAL PRN ×2 (00:45→06:46)
[2019-08-31] MEDS: Ipratropium Bromide Inhaler INH SCH ×2 (01:00→07:00)
--- NOTE | 2019-08-31 03:29 | Progress Note ---
DATE: 08/30/2019 SUBJECTIVE: Patient is still anxious and called for her nurse, physically doing well and improved. No behavior issues noted besides anxiety and med seeking behavior. MENTAL STATUS EXAMINATION: Patient is alert, oriented to time, self, place, and situation. Mood is neutral. Affect is flat. Thought process is concrete. Thought content, no suicidal or homicidal ideation. ASSESSMENT: 1. Major depressive disorder. 2. Anxiety disorder. PLAN: 1. Continue current medication. 2. Provide the patient with reality orientation and supportive therapy. Wan Stern M.D. DR: Jana JOB#: [id number] CC:
[2019-08-31 04:00] VITALS: BP 117/82
[2019-08-31] MEDS: Heparin 5000 units/ml inj SUBQ SCH (06:00)
[2019-08-31 08:00] VITALS: BP 111/68
[2019-08-31] MEDS ORDERED: oxyCODONE 5mg IR tab ORAL PRN (08:58)
[2019-08-31] MEDS: Flonase Nasal Inhaler 16gm NASAL SCH (09:00)
[2019-08-31] MEDS: Flovent 110mcg Inhaler - 12gm INH SCH (09:00)
[2019-08-31] MEDS: Zinc Sulfate 220mg cap ORAL SCH ×2 (09:16→09:52)
[2019-08-31] MEDS: Ascorbic Acid 500mg tab ORAL SCH (09:16)
[2019-08-31] MEDS: Magnesium Oxide 400mg tab ORAL SCH ×2 (09:17→09:51)
[2019-08-31] MEDS: Calcium Carbonate 500mg w/Vit D 200iu tab ORAL SCH (09:17)
[2019-08-31] MEDS: Dronabinol 2.5mg Cap ORAL SCH (09:17)
[2019-08-31] MEDS: Lisinopril 20mg tab ORAL SCH (09:18)
[2019-08-31] MEDS: Docusate 100mg cap ORAL SCH (09:19)
[2019-08-31] MEDS: Aspirin Baby 81mg ORAL SCH (09:19)
[2019-08-31] MEDS: Miralax 17gm pkt ORAL SCH ×2 (09:19→09:52)
--- NOTE | 2019-08-31 11:09 | Pulmonology Progress Note ---
Assessment/Plan Assessment/Plan ASSESSMENT: The patient is a 78-year-old female with a history of COPD, diastolic dysfunction, CHF, breast cancer, anemia, admitted with COVID 19 PNA PROBLEM LIST: 1. COVID19 PNA 2. Acute hypoxemic respiratory failure. 3. COPD. ic dysfunction. 5. History of mucus plugging. 6. History of breast cancer. 7. Anemia. 8. Hyponatremia. 9. Dementia. 10. 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 11. Dysphagia. TREATMENT PLAN: 1. Optimize pulmonary hygiene/mobilize as tolerated. 2. Titrate down FiO2 to keep saturations greater than 90%. 3. [id number] and p.r.n. albuterol and Atrovent metered-dose inhalers via spacer. 4. Completed Plaquenil (D5/5) 5. ? DC ISO now that COVID x 2 negative 6. Monitor off Abx per ID 7. Monitor volumes and renal function. 8. DVT prophylaxis, heparin subcu. 9. Continue Singulair. 10. Continue fluticasone inhaler b.i.d. 11. Continue Tessalon t.i.d. p.r.n. 12. Continue Mucinex and p.r.n. Robitussin. D/W patient D/W RN Subjective ROS Limited/Unobtainable: No Constitutional: Reports: fatigue; Denies: fever Gastrointestinal/Abdominal: Denies: nausea, vomiting, diarrhea Psychiatric: Denies: depression Skin: Denies: rash Musculoskeletal: Denies: pain Allergies: Coded Allergies: [place] (Unverified Allergy, Mild, upset stomach, 02/10/19) TOMATO (Unverified Allergy, Mild, upset stomach, 02/10/19) TETRACYCLINE (Unverified Allergy, Unknown, 07/24/14) Subjective NAEO AFVSS on 2L denies cough or SOB no FC no CP + abd pain today, awaiting discharge Objective Last 24 Hour Vital Signs Date Time Temp Pulse Resp B/P (MAP) Pulse Ox O2 Delivery O2 Flow Rate FiO2 08/31/19 09:18 112 117/82 08/31/19 09:18 117/82 08/31/19 09:18 112 117/82 08/31/19 09:00 Nasal Cannula 3.0 08/31/19 08:00 99.0 108 19 111/68 (82) 98 4/22/20 04:00 97.5 112 20 117/82 (94) 93 08/31/19 01:00 Nasal Cannula 08/31/19 01:00 Nasal Cannula 08/31/19 00:00 98.2 109 20 114/57 (76) 93 08/30/19 21:17 Room Air 21 08/30/19 21:17 Room Air 08/30/19 21:17 95 Nasal Cannula 2.0 28 08/30/19 21:00 102 107/55 08/30/19 21:00 Nasal Cannula 3.0 08/30/19 20:00 98.1 102 20 107/55 (72) 90 08/30/19 16:00 97.5 97 19 106/58 (74) 95 08/30/19 13:50 Nasal Cannula 08/30/19 13:50 Nasal Cannula 08/30/19 12:00 99.1 90 20 131/65 (87) 97 Intake and Output 08/30/19 08/31/19 19:00 07:00 Intake Total 240 ml 360 ml Balance 240 ml 360 ml Intake Oral 240 ml Other 360 ml # Voids 2 2 # Bowel Movements 1 Objective Deferred 2/2 COVID isolation, PPE requirements, no distress, not coughing, less confused, awake and alert General Appearance: no acute distress HEENT: normocephalic, atraumatic, anicteric, mucous membranes moist Respiratory/Chest: rhonchi Cardiovascular: normal peripheral pulses, normal rate, regular rhythm Abdomen: normal bowel sounds, soft, non tender, no organomegaly, non distended Genitourinary: other - + shi - urine slt cloudy Extremities: no cyanosis Skin: no rash Neurologic/Psychiatric: slipper maker II-XII grossly normal, alert, oriented x 3, responsive Lymphatic: no neck adenopathy Musculoskeletal: no effusion Laboratory Tests 08/31/19 06:00: Urine Osmolality 539H, Urine Random Sodium 23 Current Medications Medications (Trade) Dose Ordered Sig/Wilner Route PRN Reason Start Time Stop Time Status Last Admin Dose Admin Acetaminophen (Tylenol) 650 mg Q4H PRN ORAL Mild Pain (Pain Scale 1-3) 08/28/19 21:30 09/18/19 01:29 Al Hydroxide/Mg Hydroxide (Mylanta II) 20 ml Q4H PRN ORAL INDIGESTION 08/28/19 21:30 09/18/19 01:29 08/31/19 06:46 Albuterol Sulfate (Proventil MDI) 2 puff Q6HRT PRN INH Shortness of Breath 08/29/19 01:00 11/17/19 03:14 Amlodipine Besylate (Norvasc) 10 mg DAILY ORAL 08/29/19 09:00 09/18/19 08:59 08/31/19 09:18 Ascorbic Acid (Vitamin C) 500 mg DAILY ORAL 08/29/19 09:00 09/18/19 08:59 08/31/19 09:16 Aspirin (ASA) 81 mg DAILY ORAL 08/29/19 09:00 10/03/19 08:59 08/31/19 09:19 Atorvastatin Calcium (Lipitor) 40 mg BEDTIME ORAL 08/29/19 21:00 11/17/19 20:59 08/30/19 21:20 Benzonatate (Tessalon Perles) 100 mg TIDPRN PRN ORAL cough 08/28/19 21:15 09/17/19 21:14 Bisacodyl (Dulcolax) 10 mg DAILY PRN RECTAL Constipation 08/29/19 09:00 11/17/19 01:29 Calcium/Vitamin D (OsCal D) 1 tab DAILY ORAL 08/29/19 09:00 11/17/19 08:59 08/31/19 09:17 Dextrose (Dextrose 50%) 25 ml Q30M PRN IV Hypoglycemia 08/28/19 21:30 11/16/19 20:59 Dextrose (Dextrose 50%) 50 ml Q30M PRN IV Hypoglycemia 08/28/19 21:30 11/16/19 20:59 Dicyclomine HCl (Bentyl) 10 mg QIDPRN PRN ORAL Abdominal cramps 08/30/19 12:15 11/28/19 12:14 08/30/19 18:36 Docusate Sodium (Colace) 100 mg EVERY 12 HOURS ORAL 08/28/19 21:15 09/17/19 20:59 08/31/19 09:19 Dronabinol (Marinol) 2.5 mg BID ORAL 08/29/19 09:00 11/17/19 08:59 08/31/19 09:17 Ferrous Sulfate (Feosol) 325 mg DAILY ORAL 08/29/19 09:00 11/17/19 08:59 08/30/19 08:43 Fluticasone Propionate (Flonase) 1 spray DAILY NASAL 08/29/19 09:00 09/18/19 08:59 08/31/19 09:00 Fluticasone Propionate (Flovent 110 mcg) 2 puff DAILY INH 08/29/19 09:00 09/18/19 08:59 08/31/19 09:00 Heparin Sodium (Porcine) (Heparin 5000 units/ml) 5,000 units EVERY 8 HOURS SUBQ 08/28/19 22:00 10/03/19 00:00 08/29/19 21:33 Hydralazine HCl (Apresoline) 10 mg Q6H PRN ORAL For High Blood Pressure 08/29/19 01:30 11/17/19 01:29 Ipratropium [place] (Atrovent Inh) 1 puffs Q6HRT INH 08/29/19 01:00 09/18/19 06:59 08/31/19 07:00 Lactulose (Cephulac) 20 gm DAILY PRN ORAL Constipation 08/29/19 09:00 09/18/19 01:29 Lisinopril (PriniviL) 40 mg DAILY ORAL 08/29/19 09:00 09/18/19 08:59 08/31/19 09:18 Magnesium Oxide (Mag-Ox 400mg) 200 mg DAILY ORAL 08/29/19 09:00 09/18/19 08:59 08/30/19 08:43 Metoprolol Tartrate (Lopressor) 37.5 mg Q12HR ORAL 08/28/19 21:15 11/17/19 08:59 08/31/19 09:18 Mirtazapine (Remeron) 15 mg BEDTIME ORAL 08/29/19 21:00 11/21/19 20:59 08/30/19 21:20 Montelukast Sodium (Singulair) 10 mg QPM ORAL 08/29/19 16:30 11/17/19 16:29 08/30/19 17:29 Multivitamins (Multivitamins) 1 tab DAILY ORAL 08/29/19 09:00 09/18/19 08:59 08/30/19 08:43 Ondansetron HCl (Zofran) 4 mg Q6H PRN ORAL Nausea & Vomiting 08/28/19 22:00 09/18/19 01:29 08/31/19 04:57 Oxycodone HCl (Roxicodone) 5 mg Q4H PRN ORAL Severe Pain (Pain Scale 7-10) 08/31/19 08:58 09/07/19 08:57 Pantoprazole (Protonix) 40 mg DAILY ORAL 08/29/19 09:00 09/18/19 08:59 08/31/19 09:17 Polyethylene Glycol (Miralax) 17 gm DAILY ORAL 08/29/19 09:00 09/18/19 08:59 08/31/19 09:19 Polyethylene Glycol (Miralax) 17 gm DAILYPRN PRN ORAL Constipation 08/29/19 21:00 09/17/19 20:59 Sennosides (Senokot) 8.6 mg QHS ORAL 08/29/19 21:00 09/18/19 20:59 08/29/19 21:31 Simethicone (Mylicon) 80 mg Q6H PRN ORAL Abdominal cramps 08/30/19 18:30 11/28/19 18:29 Zinc Sulfate (Zinc Sulfate) 220 mg DAILY ORAL 08/29/19 09:00 11/17/19 08:59 08/30/19 08:44 Rafael Lerma MD Aug 31, 2019 11:09
--- NOTE | 2019-08-31 11:17 | Nephrology Progress Note ---
Assessment/Plan Plan #Hyponatremia - likely hypovolumic - r/o SIADH in the setting of pulmonary infection- improving #Acute on chronic hypoxic resp failure #Acute bronchitis #Rule out COVID-19 #COPD #HTN #Chronic diastolic CHF #Depression #GERD #Chronic right hydronephrosis #Left hemorrhagic renal cyst #Nephrolithiasis #Hematuria #hypokalemia - repleted - stable for DC from renal standpoint - monitor BMP - check free T4-> WNL - lisinopril to 40 daily--> will decrease dose back to 20 if K persistently elevated - continue MTP 25 BID, - continue amlodipine 10 qdaily - lisinopril 40mg daily - continue antibiotics per ID - breathing treatment. - ID and Pulm eval - Continue Lexapro- - Continue qhs Mirtazapine - - Continue pregabalin 75 mg BID - Subjective ROS Limited/Unobtainable: No Subjective sodium 129-> 133 Bp stable Breathing stable DC planning Objective Objective Last 24 Hour Vital Signs Date Time Temp Pulse Resp B/P (MAP) Pulse Ox O2 Delivery O2 Flow Rate FiO2 08/31/19 09:18 112 117/82 08/31/19 09:18 117/82 08/31/19 09:18 112 117/82 08/31/19 09:00 Nasal Cannula 3.0 08/31/19 08:00 99.0 108 19 111/68 (82) 98 08/31/19 04:00 97.5 112 20 117/82 (94) 93 08/31/19 01:00 Nasal Cannula 08/31/19 01:00 Nasal Cannula 08/31/19 00:00 98.2 109 20 114/57 (76) 93 08/30/19 21:17 Room Air 21 08/30/19 21:17 Room Air 08/30/19 21:17 95 Nasal Cannula 2.0 28 08/30/19 21:00 102 107/55 08/30/19 21:00 Nasal Cannula 3.0 08/30/19 20:00 98.1 102 20 107/55 (72) 90 08/30/19 16:00 97.5 97 19 106/58 (74) 95 08/30/19 13:50 Nasal Cannula 08/30/19 13:50 Nasal Cannula 08/30/19 12:00 99.1 90 20 131/65 (87) 97 Intake and Output 08/30/19 08/31/19 19:00 07:00 Intake Total 240 ml 360 ml Balance 240 ml 360 ml Intake Oral 240 ml Other 360 ml # Voids 2 2 # Bowel Movements 1 Laboratory Tests 08/31/19 06:00: Urine Osmolality 539H, Urine Random Sodium 23 Height (Feet): 5 Height (Inches): 0.00 Weight (Pounds): 123 Salma Ibanez M.D. Aug 31, 2019 11:17
[2019-08-31 11:55] LABS: ANION GAP 11 mmol/L (5-15); BLOOD UREA NITROGEN 35 mg/dL (7-18); CALCIUM 9.8 MG/DL (8.5-10.1); CARBON DIOXIDE 27 MMOL/L (21-32); CHLORIDE 95 MMOL/L (98-107); CREATININE 0.7 MG/DL (0.55-1.30); POTASSIUM 4.1 MMOL/L (3.5-5.1); SODIUM 133 MMOL/L (136-145)
[2019-08-31 12:00] VITALS: BP 125/67
--- NOTE | 2019-08-31 13:47 | General Progress Note ---
Assessment/Plan Assessment/Plan: 78 year old woman SNF resident with chronic resp failure due to COPD, HTN, chronic dCHF, chronic pain, depression, anxiety, chronic right hydronephrosis who presented from SNF with dyspnea, cough body aches, COVID-19 positive. Patient received hydroxychloroquine, azithromycin, Vanco and Zosyn. Patient completed her course of antibiotics with symptomatic improvement. Patient with no increased supplemental O2 needs or signs of respiratory distress during hospital stay. Patient had a repeat COVID on 08/25 which was negative. Afebrile >48 hrs with no URI symptoms. D/w Pulm, states pt is stable for D/C. CM d/w NH who stated they will be able to accept pt at this time. Pt noted abd pain today , pt with good BMs. KUB showed gas, negative for obstruction, pt w/good BMs. Pt given simethicone and dicyclomine. Patient in stable condition, to be DC'd back to halfway. #Acute on chronic hypoxic resp failure, 2L O2 dependant #Acute bronchitis #HCAP #COVID-19 POSITIVE #COPD -cont. inpatient medical care -Inhaled bronchodilators prn -Continue supplemental oxygen -COVID-19 positive -Will defer systemic steroid use to Pulm -abx per ID: vanc/zosyn day #6/7, s/p hydroxychloroquine #09/12, s/p azithro #/ -ID and Pulm consulted, recs appreciated -08/23 repeat COVID w/indeterminate abnormal -08/25 COVID NEGATIVE -pt afebrile >48 hrs with no URI symptoms -d/w CM, pt stable to return to NH -[facility] accepted pt -d/w pulm, pt is stable for DC back to [place] -plan to return to [facility] today #Hyponatremia #Hypokalemia -replaced, ctm, replace PRN -likely hypovolumic -pt refused PO potassium -instructed pt to take supplement, pt expressed understanding and will comply -Nephro following, recs appreciated #Abdominal pain -KUB negative for obstruction -pt with good BMs -simethicone -dicyclomine -pain control #HTN #Chronic diastolic CHF -Cont outpatient meds lisinopril 20 daily, MTP 25 BID, amlodipine 10 q daily #Depression #Chronic pain #Anxiety disorder #Osteoarthritis -Continue qhs Mirtazapine. -Continue pregabalin 75 mg BID -Continue home Dronabinol 2.5 mg BID -Continue Clonazepam 0.5 mg BID -Continue Oxycodone 5 mg q12h prn -Psych consulted - recs appreciated #GERD -cont. PPI #Chronic right hydronephrosis #Left hemorrhagic renal cyst #Nephrolithiasis #Hematuria Time spent on encounter: 27 mins, 17 mins spent on pt counseling regarding POC and dispo planning. Updated RN. Time of note doesn't reflect time of encounter. Subjective Allergies: Coded Allergies: [place] (Unverified Allergy, Mild, upset stomach, 02/10/19) TOMATO (Unverified Allergy, Mild, upset stomach, 02/10/19) TETRACYCLINE (Unverified Allergy, Unknown, 07/24/14) Subjective Follow-up for acute on chronic hypoxic respiratory failure. COVID Positive. Repeat COVID 08/25 negative, pt afebrile >48 hrs. Pt notes abd pain, had good BM this AM. Objective Last 24 Hour Vital Signs Date Time Temp Pulse Resp B/P (MAP) Pulse Ox O2 Delivery O2 Flow Rate FiO2 08/31/19 09:18 112 117/82 08/31/19 09:18 117/82 08/31/19 09:18 112 117/82 08/31/19 09:00 Nasal Cannula 3.0 08/31/19 08:00 99.0 108 19 111/68 (82) 98 08/31/19 04:00 97.5 112 20 117/82 (94) 93 08/31/19 01:00 Nasal Cannula 08/31/19 01:00 Nasal Cannula 08/31/19 00:00 98.2 109 20 114/57 (76) 93 08/30/19 21:17 Room Air 21 08/30/19 21:17 Room Air 08/30/19 21:17 95 Nasal Cannula 2.0 28 08/30/19 21:00 102 107/55 08/30/19 21:00 Nasal Cannula 3.0 08/30/19 20:00 98.1 102 20 107/55 (72) 90 08/30/19 16:00 97.5 97 19 106/58 (74) 95 08/30/19 13:50 Nasal Cannula 08/30/19 13:50 Nasal Cannula Intake and Output 08/30/19 08/31/19 19:00 07:00 Intake Total 240 ml 360 ml Balance 240 ml 360 ml Intake Oral 240 ml Other 360 ml # Voids 2 2 # Bowel Movements 1 Laboratory Tests 08/31/19 06:00: Urine Osmolality 539H, Urine Random Sodium 23 08/31/19 11:35: Sodium Level 133L, Potassium Level 4.1, Chloride Level 95L, Carbon Dioxide Level 27, Anion Gap 11, Blood Urea Nitrogen 35H, Creatinine 0.7, Estimat Glomerular Filtration Rate > 60, Glucose Level 118H, Calcium Level 9.8 Height (Feet): 5 Height (Inches): 0.00 Weight (Pounds): 123 Objective General Appearance: NAD, on 2L NC, appears comfortable laying in bed HEENT: atraumatic, anicteric, EOMi, dry MM Neck: normal alignment, supple Respiratory/Chest: CTAB, no respiratory distress, no accessory muscle use Cardiovascular/Chest: normal rate, regular rhythm Abdomen: soft, non-distended, +BS, no guarding/rebound Ext: no edema Morgan Lutz M.D. Aug 31, 2019 13:47
--- NOTE | 2019-08-31 17:11 | Infectious Diseases Prog Note ---
Assessment/Plan Assessment/Plan ASSESSMENT AND PLAN: 1. covid-19 virus infection with pna, ? cap, ? risk for aspiration/hcap pna, hypoxia - s/p hydroxychloroquine - sp zosyn and vancomycin - s/p azithromycin - monitor labs, f/u chest x-ray improved - monitor respiratory status closely - f/u pcr - negative - d/w RN, cleared from ID standpoint - no fevers, no sob, no cough 2. pulmonary mgt noted 3. The patient has anemia. 4. Congestive heart failure. 5. Hypertension. 6. Blood pressure treatment per primary care team. 7. Leukopenia consistent with viral syndrome. 8. History of urinary tract infection. We will check urine C and S. 9. Anxiety and chronic pain. 10. Chronic obstructive pulmonary disease. 11. Allergies to oranges, tetracycline, tomatoes. 12. Social history is negative. 13. Family history is noncontributory. 14. MAR was noted. 15. Case discussed with RN. 16. Skin care protocol. 17. The patient comes from a nursing home facility. Subjective Constitutional: Reports: fatigue; Denies: fever Respiratory: Denies: shortness of breath Cardiovascular: Denies: chest pain Gastrointestinal/Abdominal: Denies: nausea Genitourinary: Reports: other - no shi Neurologic: Denies: headache Psychiatric: Denies: depression Skin: Denies: rash Hematologic: Denies: bleeding Musculoskeletal: Denies: pain Allergies: Coded Allergies: [place] (Unverified Allergy, Mild, upset stomach, 02/10/19) TOMATO (Unverified Allergy, Mild, upset stomach, 02/10/19) TETRACYCLINE (Unverified Allergy, Unknown, 07/24/14) Objective Vital Signs Last 24 Hour Vital Signs Date Time Temp Pulse Resp B/P (MAP) Pulse Ox O2 Delivery O2 Flow Rate FiO2 08/31/19 12:00 98.2 83 20 125/67 (86) 97 08/31/19 09:18 112 117/82 08/31/19 09:18 117/82 08/31/19 09:18 112 117/82 08/31/19 09:00 Nasal Cannula 3.0 08/31/19 08:00 99.0 108 19 111/68 (82) 98 08/31/19 04:00 97.5 112 20 117/82 (94) 93 08/31/19 01:00 Nasal Cannula 08/31/19 01:00 Nasal Cannula 08/31/19 00:00 98.2 109 20 114/57 (76) 93 08/30/19 21:17 Room Air 21 08/30/19 21:17 Room Air 08/30/19 21:17 95 Nasal Cannula 2.0 28 08/30/19 21:00 102 107/55 08/30/19 21:00 Nasal Cannula 3.0 08/30/19 20:00 98.1 102 20 107/55 (72) 90 Height (Feet): 5 Height (Inches): 0.00 Weight (Pounds): 123 General Appearance: no acute distress HEENT: normocephalic, atraumatic, anicteric, mucous membranes moist Respiratory/Chest: lungs clear, normal breath sounds, no accessory muscle use, respiratory distress Cardiovascular: normal rate, regular rhythm Abdomen: normal bowel sounds, soft, non tender, no organomegaly, non distended Genitourinary: other - no shi Extremities: no cyanosis Skin: no rash Neurologic/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 There is bilateral interstitial congestion. There is also some patchy airspace disease in the perihilar regions. There is pleural thickening versus fluid in the left inferolateral hemithorax. Surgical clips are seen adjacent to the right pulmonary hilum. Numerous surgical clips are seen in the right axilla. Findings are similar to the prior exam Impression: Findings likely represent congestive heart failure with interstitial edema, patchy airspace edema, and a left pleural effusion. However, similarity to the prior exam raises possibility that there is also a chronic component. Chest x-ray - 08/23/19 - Procedure: XRAY Chest 1v Indication: Shortness of breath Technique: One view of the chest Comparison: 08/18/2019 Findings: There is suggestion of increased hazy opacity at the right lung base, may reflect increasing infiltrate and/or pleural fluid. Left basilar infiltrate and pleural fluid appear unchanged. The heart is borderline enlarged. Surgical clips are again demonstrated in the right paratracheal region and also in the right axilla. Impression: Increasing right basilar hazy infiltrate and/or pleural fluid are in stable left basilar pleural and parenchymal disease, over 5 days Chest x-ray - 08/26/19 - Procedure: XRAY Chest 1v Indication: Shortness of breath Technique: One view of the chest Comparison: 08/23/2019 Findings: Patient is somewhat rotated to the left. There is a apparent interim leftward shift of the mediastinum. This is probably mostly artifactual due to patient rotation but could indicate a component of developing volume loss. There appears to be increased air bronchograms in the retrocardiac region suggesting increasing infiltrate. There is also suggestion of new or increasing pleural fluid on the left. Hazy opacity at the right lung base may reflect hazy infiltrate or could be an artifact of overlying soft tissues. Evidence of prior mediastinal and right axillary surgery again demonstrated Impression: Suspect increasing left lung consolidation, volume loss, and left- sided pleural fluid Possible hazy right basilar infiltrate, unchanged Chest x-ray - - Procedure: XRAY Chest 1v Indication: Shortness of breath Technique: One view of the chest Comparison: 08/25/2025 Findings: The heart is enlarged. There is left lung volume loss and retrocardiac and perihilar consolidation, although aeration of the left mid and lower lung appears somewhat improved as compared to prior study. Hazy right basilar opacity is unchanged. Surgical clips in the right mediastinum and right axilla remain. Impression: Interim slight improvement the persistence of left lung consolidation. Persistent left lung volume loss. Persistent hazy right basilar parenchymal opacity Stable cardiomegaly. Microbiology Date/Time Source Procedure Growth Status 08/18/19 19:00 Blood Blood Culture - Final NO GROWTH AFTER 5 DAYS Complete 08/28/19 14:00 Nasopharynx Coronavirus COVID-19 PCR ([facility]) - Final Complete Labs Test 08/29/19 08:20 08/30/19 05:30 08/31/19 06:00 08/31/19 11:35 White Blood Count 11.1 K/UL (4.8-10.8) 11.3 K/UL (4.8-10.8) Red Blood Count 3.98 M/UL (4.20-5.40) 4.17 M/UL (4.20-5.40) Hemoglobin 11.8 G/DL (12.0-16.0) 12.4 G/DL (12.0-16.0) Hematocrit 35.3 % (37.0-47.0) 36.9 % (37.0-47.0) Mean Corpuscular Volume 89 FL (80-99) 88 FL (80-99) Mean Corpuscular Hemoglobin 29.7 PG (27.0-31.0) 29.8 PG (27.0-31.0) Mean Corpuscular Hemoglobin Concent 33.4 G/DL (32.0-36.0) 33.6 G/DL (32.0-36.0) Red Cell Distribution Width 11.9 % (11.6-14.8) 11.8 % (11.6-14.8) Platelet Count 408 K/UL (150-450) 397 K/UL (150-450) Mean Platelet Volume 5.8 FL (6.5-10.1) 5.7 FL (6.5-10.1) Neutrophils (%) (Auto) 66.3 % (45.0-75.0) 69.0 % (45.0-75.0) Lymphocytes (%) (Auto) 24.3 % (20.0-45.0) 22.2 % (20.0-45.0) Monocytes (%) (Auto) 6.8 % (1.0-10.0) 7.4 % (1.0-10.0) Eosinophils (%) (Auto) 0.7 % (0.0-3.0) 0.3 % (0.0-3.0) Basophils (%) (Auto) 1.8 % (0.0-2.0) 1.1 % (0.0-2.0) Sodium Level 129 MMOL/L (136-145) 133 MMOL/L (136-145) 133 MMOL/L (136-145) Potassium Level 4.1 MMOL/L (3.5-5.1) 4.0 MMOL/L (3.5-5.1) 4.1 MMOL/L (3.5-5.1) Chloride Level 93 MMOL/L (98-107) 94 MMOL/L (98-107) 95 MMOL/L (98-107) Carbon Dioxide Level 29 MMOL/L (21-32) 27 MMOL/L (21-32) 27 MMOL/L (21-32) Anion Gap 7 mmol/L (5-15) 12 mmol/L (5-15) 11 mmol/L (5-15) Blood Urea Nitrogen 17 mg/dL (7-18) 20 mg/dL (7-18) 35 mg/dL (7-18) Creatinine 0.7 MG/DL (0.55-1.30) 0.6 MG/DL (0.55-1.30) 0.7 MG/DL (0.55-1.30) Estimat Glomerular Filtration Rate > 60 mL/min (>60) > 60 mL/min (>60) > 60 mL/min (>60) Glucose Level 86 MG/DL (74-106) 73 MG/DL (74-106) 118 MG/DL (74-106) Calcium Level 9.7 MG/DL (8.5-10.1) 10.3 MG/DL (8.5-10.1) 9.8 MG/DL (8.5-10.1) Urine Osmolality 539 mOsm/kg (429-449) Urine Random Sodium 23 mmol/L (20-110) Laboratory Tests Test 08/31/19 06:00 08/31/19 11:35 Urine Osmolality 539 mOsm/kg (429-449) H Urine Random Sodium 23 mmol/L (20-110) Sodium Level 133 MMOL/L (136-145) L Potassium Level 4.1 MMOL/L (3.5-5.1) Chloride Level 95 MMOL/L (98-107) L Carbon Dioxide Level 27 MMOL/L (21-32) Anion Gap 11 mmol/L (5-15) Blood Urea Nitrogen 35 mg/dL (7-18) H Creatinine 0.7 MG/DL (0.55-1.30) Estimat Glomerular Filtration Rate > 60 mL/min (>60) Glucose Level 118 MG/DL (74-106) H Calcium Level 9.8 MG/DL (8.5-10.1) Nyasia Sanatna MD Aug 31, 2019 17:11
--- NOTE | 2019-08-31 19:00 | Neurology Progress Note ---
Interim History Interim History ROS Limited/Unobtainable: No Interim History feeling better out of bed Objective Physical Exam Last Vital Signs Date Time Temp Pulse Resp B/P (MAP) Pulse Ox O2 Delivery O2 Flow Rate FiO2 08/31/19 12:00 98.2 83 20 125/67 (86) 97 08/31/19 09:00 Nasal Cannula 3.0 08/30/19 21:17 21 Laboratory Tests Test 08/31/19 06:00 08/31/19 11:35 Urine Osmolality 539 mOsm/kg (429-449) H Urine Random Sodium 23 mmol/L (20-110) Sodium Level 133 MMOL/L (136-145) L Potassium Level 4.1 MMOL/L (3.5-5.1) Chloride Level 95 MMOL/L (98-107) L Carbon Dioxide Level 27 MMOL/L (21-32) Anion Gap 11 mmol/L (5-15) Blood Urea Nitrogen 35 mg/dL (7-18) H Creatinine 0.7 MG/DL (0.55-1.30) Estimat Glomerular Filtration Rate > 60 mL/min (>60) Glucose Level 118 MG/DL (74-106) H Calcium Level 9.8 MG/DL (8.5-10.1) General: well nourished Head: normocophalic Neck: no rigidity Neurologic Exam Mental Status: awake Objective moves all 4 symmetric Impression/Recommendations Problems: (1) Hypokalemia (2) Abdominal pain (3) Therapeutic opioid-induced constipation (OIC) (4) Shortness of breath (5) Diastolic CHF (6) Anemia (7) Anxiety (8) Hypercholesteremia (9) Hyponatremia (10) Hypertension (11) Severe sepsis (12) History of breast cancer (13) Respiratory failure with hypoxia (14) Protein-calorie malnutrition, mild (15) GERD (gastroesophageal reflux disease) (16) Cough (17) Dysphagia (18) SOB (shortness of breath) (19) Pleural effusion (20) Renal failure (21) Allergic rhinitis (22) Constipation (23) Osteoporosis (24) Aspiration pneumonia (25) Tracheobronchitis (26) Collapse of left lung (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 (28) Respiratory failure requiring intubation (29) Limited mobility (30) Acute metabolic encephalopathy (31) Decubitus skin ulcer (32) Leukocytosis (33) Gram-negative bacteremia (34) COPD (chronic obstructive pulmonary disease) (35) Chronic respiratory failure with hypoxia (36) Lumbar radiculopathy (37) Fibromyalgia (38) Cervical spondylosis (39) Diastolic CHF, acute on chronic (40) Lumbar spondylosis (41) Acute and chronic respiratory failure ([id number]) (42) Pneumonia (43) Cervical radiculopathy (44) DDD (degenerative disc disease), cervical (45) DDD (degenerative disc disease), lumbar (46) Troponin level elevated (47) UTI (urinary tract infection) Diagnostic Impression acute encephalopathy and gen weakness likely metabolic in the setting of possible covid and resp faikure myalgias GEn pain Depression COVID rule out atb per primary management of fluids nad hyponatremia pt ot delirium precautions Quentin Giron MD Aug 31, 2019 19:00
--- NOTE | 2019-09-01 01:00 | Progress Note ---
DATE: 08/31/2019 SUBJECTIVE: Patient is in a good mood today. She is going to be discharged. She has no behavior issues present and has anxiety per report. Ativan . MENTAL STATUS EXAMINATION: Alert and oriented to time, self, place, and situation. Mood is anxious. Affect is constricted. Congruent mood. Thought process is concrete. Thought content, no suicidal or homicidal ideation. ASSESSMENT: 1. Anxiety disorder. 2. Major depressive disorder. PLAN: 1. Continue current psychotropic medication. 2. Provide the patient with reality orientation and supportive therapy. Wan Stern M.D. DR: GEORGETTE JOB#: [id number] CC:
== END 2019-08-31 13:55 | DRG 177 ==
LOC: EDBD 17:59 → EDUNIT# 17:59 → EMR 18:15 → EDBEDREQ 19:49 → 2E 20:16 → EDBEDREQ 21:14 → 4E 08-28 20:36
DX: U07.1 COVID-19 (principal); J96.21 Acute and chronic respiratory failure with hypoxia; J12.89 Other viral pneumonia; G93.41 Metabolic encephalopathy; J44.0 Chronic obstructive pulmonary disease with (acute) lower respiratory infection; I50.32 Chronic diastolic (congestive) heart failure; E87.1 Hypo-osmolality and hyponatremia; J98.11 Atelectasis; N13.30 Unspecified hydronephrosis; N39.0 Urinary tract infection, site not specified; J20.9 Acute bronchitis, unspecified; I11.0 Hypertensive heart disease with heart failure; Z88.8 Allergy status to other drugs, medicaments and biological substances; J44.9 Chronic obstructive pulmonary disease, unspecified; E87.6 Hypokalemia; Z99.81 Dependence on supplemental oxygen; F41.9 Anxiety disorder, unspecified; M19.90 Unspecified osteoarthritis, unspecified site; K21.9 Gastro-esophageal reflux disease without esophagitis; Z85.3 Personal history of malignant neoplasm of breast; M50.30 Other cervical disc degeneration, unspecified cervical region; G89.29 Other chronic pain; M54.9 Dorsalgia, unspecified; N20.0 Calculus of kidney; J98.09 Other diseases of bronchus, not elsewhere classified; M51.36 Other intervertebral disc degeneration, lumbar region; M81.0 Age-related osteoporosis without current pathological fracture; F32.9 Major depressive disorder, single episode, unspecified; K59.03 Drug induced constipation; T40.2X5A Adverse effect of other opioids, initial encounter
CPT/HCPCS: 36415; 71045; 74018; 80048; 80053; 80202; 81003; 82533; 82550; 82553; 83605; 83735; 83880; 83935; 84300; 84439; 84443; 84481; 84484; 85007; 85025; 86710; 87040; 87635; 93005; 94640; 96374; 96375; 99285; J2405; J8499